=== PATIENT | male | born 1965 | race Caucasian/White ===

== ENCOUNTER 2017-11-09 07:00 | Outpatient (RCR) | payer OTHER, MEDICAID, SELFPAY ==
--- NOTE | 2017-08-03 14:54 | HP.PTEVAL ---
Patient's Visit Information TROY CARLSON is a 52 year old M referred to Physical Therapy by Out of Town Doctor MOMO TALLEY with a diagnosis of Liver transplant and hernia repair. Date of Evaluation: 08/03/17 Physical Therapist: Mando Lewis DPT, OC - Visit Plan Frequency: 3x /Week Duration: 4-6 Weeks Plan: 3x/week for 4-6 for... 1. postural and LE strength. 2. core strength [id number] due to incision. 3. VOR walking and balance with gait. 4. foam and SLS baalnce. 5. stretch HS, quads, hip flexors and gently abs. LB AROM. Progress as tolerated to I at [facility]. Avoid increasing intraabdominal pressure. - Subjective Subjective: Madelaine friend with him today. Got a new liver 2 yrs ago. had two hernia surgeries since then the latest one in April. Has been at home for the last three months recovering. Shot pool the other day 4 games and was whooped. Belly is numb. Pain is in belly intermittently. Needs to wrok on core and leg strength. Has [employer] membership and wants to learn what to do. No specific precautions currently. Scars are tender and it hurts to bend over pool table. Sleep is poor due to losing 3 friends in last 3 months including son and mom. Needs to get stamina back and get around better. No current ex, Basic aDLs are OK just slow. Tidies up at home but no big cleaning. does the dishes. Moves slow. Hobbies: wants to shoot [employer] at some point and deer akbar. Wants to play pool without pain. Not working on disability due to lover. - Pain belly Pain Intensity (Out of 10): 0 Pain Intensity Range: 0, 8 - Objective Walks slowly and a little waddle but I on firm flat surface. Transfers I with UE. steps with rail I but very tired after wards. reflexes UE and LE 2/3 bi, tri, patella and achilles. Sensation WNL to gross light touch except L UE distall laterally. Strength 4-/5 in LE knees and ankles and 3+ in hips adn 3+ in UE. UE aROM WFL but elevation limited to 130 and then stiff ins houlders. SLS 2-3 sec B. VOR stance is slow and walking is unable. Incision in belly in cross shape has healed well but he picks at distal portion and is still slightly draining, no obvious evidence of infection, no unusual redness or heat or swelling. Moderate scarring underneath most of incision. foam stacne with ec is unable and drifts BE immediately. - Balance Scores Functional Gait Assessment Score: 19 % Disability: 36.6700 - Goals Goal 1:: Pateint feel back to 50% activities. Goal Time Frame: 4-6 Weeks Goal 2:: 25/30 FGA to diminish fall risk. Goal Time Frame: 4-6 Weeks Goal 3:: Get into truck without weakness. Goal Time Frame: 4-6 Weeks Goal 4:: Pt I with approp and safe workout he can continue at [facility]. - Rehabilitation Potential Physical Therapy Diagnosis: hernia repair/liver transplant and patient out of shape form recovery process. Rehabilitation Potential: Fair - Anticipated Interventions Patient/Client Instruction: Educate patient on: Condition, Plan of Care For the Purpose of:: To decrease pain, To increase ROM Therapeutic Exercise to Include: Strength training, Flexibilty training, Gait and locomotor training, Active ROM For the Purpose of:: To decrease pain, To increase ROM, To improve ability of physical actions for home/community/work/leisure, To improve gait and locomotor functions Thank you for the opportunity to evaluate your patient. For Medicare and Medicare HMO plans, please review the plan of care and approve it. It will need to be FAXED BACK to us at [phone] for Medicare purposes. Please let me know if there are questions or concerns regarding this plan of care. Physician Signature: Date:
--- NOTE | 2017-08-28 14:47 | HP.PTREVAL ---
Out of Town Doctor, MOMO TALLEY It has been my pleasure to treat TROY CARLSON over the last 8 visits for Liver transplant and hernia repair. Please see the progress note below for an update on the physical therapy plan of care! Subjective: Doing allright, has merry nieto lately all over due to the weather. Feels better overall. Still needs to work on lifting and carrying 20 feet as it wears him out. Steps wear him out. Pain is intermittent. Sleep is OK on med. Doing some ex at home but not like I should. 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 Able to do indoor work. Need to continue to work to get stronger. To doctors next month. Objective/Function: FGA+5, romberg improving but ec foam still challenging. Weakness at bottom of chair squat and attempting to come up from stoop requires UE usage. Gait is nromal and steps are reciprocal btu still mild weakness notable in hips. Plan Plan: 2x/week x 4 weeks 60 minutes for ... 1. Foam and VOR balance. 2. functional strength with lunges, deep squats, carrying weight up steps, carrying weighted box, functional strength to get heart rate up. 3. Teach machines for progression to [employer](leg press, hip abd, hip ext, pull down, row, shoulder press, chest press.). PLEASE START ON ELLIPTICAL NEXT SESSION FOR MONITORed CV work to tolerance. Goals Goal 1:: Pateint feel back to 50% activities. Goal Time Frame: 4-6 Weeks Goal Progress: Progressing Goal 2:: 25/30 FGA to diminish fall risk. Goal Time Frame: 4-6 Weeks Goal Progress: Progressing Goal 3:: Get into truck without weakness. Goal Time Frame: 4-6 Weeks Goal Progress: Goal Met Goal 4:: Pt I with approp and safe workout he can continue at [employer]. Goal Time Frame: 4-6 Weeks Goal 5:: Carry 20# box up steps 3 flights I without excessive fatigue. Goal Time Frame: 4-6 Weeks Anticipated Interventions Patient/Client Instruction: Educate patient on: Condition, Plan of Care For the Purpose of:: To decrease pain, To increase ROM Therapeutic Exercise to Include: Strength training, Flexibilty training, Gait and locomotor training, Active ROM For the Purpose of:: To decrease pain, To increase ROM, To improve ability of physical actions for home/community/work/leisure, To improve gait and locomotor functions Please do not hesitate to contact me at [phone] by phone or if you have questions or concerns regarding this new plan of care! Sincerely, Mando Lewis, DPT, OC
--- NOTE | 2017-09-23 14:39 | HP.PTREVAL_ITS ---
Out of Town Doctor, MOMO TALLEY It has been my pleasure to treat TROY CARLSON over the last 15 visits for Liver transplant and hernia repair. Please see the progress note below for an update on the physical therapy plan of care! Subjective: Need to come in more. Wants to lose weight plans on continue at [employer]. Pain is good as long as he does not lean on scar tissue. Dog s jumps on him on tummy and it hurts bad. No balance problems or stumbling, climbing into truck is no problems. Objective/Function: + 7 on FGA. Walks with wide JORDAN until cued. Doing well with goals. PT DOING WELL, MUCH BETTER BALANCE ADN ABLE TO CONTINUE GYM EX [facility]. Plan Plan: CONTINUE I GYM WORKOUT AT [employer] THEN WILL F/U IN ONE MONTH TO ENSURE PROGRESS AND BALANCE IMPROVEMENT AND NOTE TO DOCTOR. Goals Goal 1:: I progress for four weeks at [employer] adn feel improved adn balance FGA. Goal Time Frame: 4-6 Weeks Goal Progress: Goal Met Goal 2:: FGA to diminish fall risk. Goal Time Frame: 4-6 Weeks Goal Progress: Goal Met Goal 3:: Get into truck without weakness. Goal Time Frame: 4-6 Weeks Goal Progress: Goal Met Goal 4:: Pt I with approp and safe workout he can continue at [employer]. Goal Time Frame: 4-6 Weeks Goal Progress: Goal Met Goal 5:: Carry 20# box up steps 3 flights I without excessive fatigue. Goal Time Frame: 4-6 Weeks Goal Progress: Goal Met Anticipated Interventions Patient/Client Instruction: Educate patient on: Condition, Plan of Care For the Purpose of:: To decrease pain, To increase ROM Therapeutic Exercise to Include: Strength training, Flexibilty training, Gait and locomotor training, Active ROM For the Purpose of:: To decrease pain, To increase ROM, To improve ability of physical actions for home/community/work/leisure, To improve gait and locomotor functions Please do not hesitate to contact me at [phone] by phone or Fax: if you have questions or concerns regarding this new plan of care! Sincerely, Mando Lewis, DPT, OC
--- NOTE | 2017-11-09 07:59 | HP.PTREVAL ---
Out of Town Doctor, MOMO TALLEY It has been my pleasure to treat TROY CARLSON over the last 16 visits for Liver transplant and hernia repair. Please see the progress note below for an update on the physical therapy plan of care! Subjective: Went to [employer] 2x and just cannot do it on his own. Got on elliptical at [facility]. Could not get any instruction at [employer]. Needs process trainer close right now. Fell 2x in last 6 weeks , last time at [employer] R ankle turned getting up. Not ready mentally for being on his own. Seeing a counselor regularly. No current pain. When he is up for a while on his feet his back hurts 5/10. Has really not been working out and gets winded easy. Gets tired with one flight of steps but feels safe on steps. Spending the day just getting around home. wants to start remodelling upstairs for father. Needs to get back on track with working out in therapy. Wants to come in here on his own. Will see dietitian at [facility] also. Dr. Day wrote order for that. Has osteoporosis, mentally not ready to be on own, knows he needs to work out. [facility] and continue here when doen with PT. Has gone backwards putting on 20# since was here in September. Objective/Function: pt strength at 4-/5 through LE and UE. Flex in HS at -40 90/90 B, gastroc to neutral, quad still very tight L >R. Pt needs assist to get up off low chair without UE. Steps are reciprocal but require rail. foam stance is poor. VOR walking is wobbly. OVERALL PATIENT HAS DONE A POOR JOB OF MANAGING HOME WORKOUT AND PROGRESSION ON HIS OWN, HAS DIGRESSED WITH BALANCE AND STRENGTH AND HAS DOEN POORLY WITH INCREASING ACTIVITY. NOW FATIGUED EASILY AFTE MARISA FLIGHT OF STEPS. HAS WIDE JORDAN AGAIN IN GAIT. HAS LOST 4 POINTS OF BALANCE ON FGA TESTING. Plan Plan: PT HAS DIGRESSED WITH PROGRESS NAD IS MENTALLY WORSE OFF THEN 6 WEEKS AGO. NEEDS MORE HANDS ON TO GET BACK TO CONDITION OF 6 WEEKS PRIOR. REOCMMEND 3X/WEEK FOR 4 WEEKS TO GET BACK TO GYM WORKOUT AND BALANCE EX FOR BALANCE, STRENGTH LE AND CORE AND CONDITIONING/FUNCTIONAL STRENGTH AND PROGRESS TO I GYM PROGRAM. LIKELY WILL NEED TO WEAN OFF THERAPY INSTEAD OF STOPPING COLD TURKEY DUE TO POOR MENTAL CONFIDENCE. PT IS TO STRETCH HS, QUAD AND GASTROC AT HOME ON HIS OWN HE STILL HAS HIS EX SHEETS TO DO THIS. Goals Goal 1:: I progress for four weeks at [employer] adn feel improved adn balance FGA. Goal Time Frame: 4-6 Weeks Goal Progress: REGRESSED AND APPROP. Goal 2:: FGA to diminish fall risk. Goal Time Frame: 4-6 Weeks Goal Progress: REGRESSED AND APPROP. Goal 3:: Get into truck without weakness. Goal Time Frame: - Goal Progress: Goal Met Goal 4:: Pt I with approp and safe workout he can continue at [employer]. Goal Time Frame: - Goal Progress: Not Progressing Goal 5:: Carry 20# box up steps 3 flights I without excessive fatigue. Goal Time Frame: 4-6 Weeks Goal Progress: REGRESSED AND APPROP. Goal 6:: Pt demonstrate ability to be consistent with I gym workout 3x/week for 3 weeks on his own to continue progress. Goal Time Frame: 6-8 Weeks Goal Progress: NEW GOAL Anticipated Interventions Patient/Client Instruction: Educate patient on: Condition, Plan of Care For the Purpose of:: To decrease pain, To increase ROM Therapeutic Exercise to Include: Strength training, Flexibilty training, Gait and locomotor training, Active ROM For the Purpose of:: To decrease pain, To increase ROM, To improve ability of physical actions for home/community/work/leisure, To improve gait and locomotor functions Please do not hesitate to contact me at [phone] by phone or if you have questions or concerns regarding this new plan of care! Sincerely, Mando Lewis, DPT, OC
--- NOTE | 2018-01-19 09:48 | HP.PT.NRP ---
HP - Discharge Summary (1) - Patient Information TROY CARLSON was seen in my office for initial evaluation on 08/03/17. The following Plan of Care was established for this patient: Initial Frequency: 3x /Week Initial Duration: 4-6 Weeks - Anticipated Interventions Patient/Client Instruction: Educate patient on: Condition, Plan of Care For the Purpose of:: To decrease pain, To increase ROM Therapeutic Exercise to Include: Strength training, Flexibilty training, Gait and locomotor training, Active ROM For the Purpose of:: To decrease pain, To increase ROM, To improve ability of physical actions for home/community/work/leisure, To improve gait and locomotor functions This patient was last seen in our office 11/09/17. Pertinent comments regarding their Physical therapy will appear below: Pt seen 16 visits and most recently in October after getting new script to continue. A plan was set up and I have contacted patient and left message to schedule but he has not. At this point it has been over two months adn I will discontinue due to nonattendance. I will be happy to resume treatment if patient desires. At this point I will be discontinuing this patient from physical therapy. I would be happy to see this patient again in the future if found appropriate by the physician. Thank you! Mando Lewis, DPT, OC
== END 2017-11-09 19:00 | disposition home or self-care (01) ==
LOC: PT 07:00
PROVIDERS: Family Provider Family Medicine; PCP Family Medicine
DX: Z94.4 Liver transplant status (principal); Z98.890 Other specified postprocedural states; Z87.19 Personal history of other diseases of the digestive system
CPT/HCPCS: 97110; 97162; 97530

== ENCOUNTER 2018-01-08 11:00 | Outpatient (RCR) | payer OTHER, MEDICAID, SELFPAY | END 2018-01-11 23:59 | LOC: NS 11:00 | PROVIDERS: Family Provider Family Medicine; PCP Family Medicine; Visit Provider Family Medicine | DX: E66.9 Obesity, unspecified (principal); Z68.36 Body mass index [BMI] 36.0-36.9, adult; Z94.4 Liver transplant status; Z71.3 Dietary counseling and surveillance | CPT/HCPCS: 97802; 97803 ==

== ENCOUNTER 2018-02-22 11:06 | Outpatient (RCR) | payer OTHER, MEDICAID, SELFPAY ==
--- NOTE | 2018-02-22 11:06 | DT_ITS ---
This patient was seen during an EMR downtime February 15, 2018 - February 22, 2018. This patient may have a combination of paper and electronic documentation or all paper documentation. All documentation is viewable within the e-chart portion of [facility] for each patient visit.
== END 2018-03-13 23:59 ==
LOC: NS 11:06
PROVIDERS: Family Provider Family Medicine; PCP Family Medicine; Visit Provider Family Medicine
DX: E66.9 Obesity, unspecified (principal); Z68.36 Body mass index [BMI] 36.0-36.9, adult; Z71.3 Dietary counseling and surveillance; Z94.4 Liver transplant status
CPT/HCPCS: 97803

== ENCOUNTER 2018-03-25 15:00 | Outpatient (RCR) | payer OTHER, MEDICAID, SELFPAY ==
--- NOTE | 2018-01-29 08:27 | HP.PTEVAL_ITS ---
Patient's Visit Information TROY CARLSON is a 53 year old M referred to Physical Therapy by Out of Town Doctor with a diagnosis of s/p liver transplant.. Date of Evaluation: 01/29/18 Physical Therapist: Mando Lewis DPT, OC - Visit Plan Frequency: 3x /Week Duration: 4-6 Weeks Plan: 3x/week for 4-6 ... 1. Teach and do stretches for HS, quad, piri and gastroc and progress to I. 2. Core/LE and postural strength via machines and progress to I as tolerated. 3. UE ROM for shoulders on pulleys and eventually machines. 4. Progression of CV/calorie burning ex. Monitor R middle toe as it is broken and will likely need to start with less weight bearing CV ex. - Subjective Subjective: Needs to get working out again. Has been unable to get in for previous plan of care from last v#. No major medical changes since then but did kick sweeper and broke R middle toe the other day so is now using cane whereas he did not need to previously. Wants to ride a motorcycle. Medically not much has changed since last Thursday. Has trouble mentally getting out and is seeing someone for that. Wants to lose weight in the belly. Wants to be stronger in the legs. No pain lately except for toe and it hurt bad. Internal organs all good except has BPH. Sleep is up and down. Walking but no other exercises right now. Does laundry and dishes and takes care of puppy. Not employed, maybe when better. Seeing blueprinting machine operator at hospital for diet. See recently d/c'd chart for info. - Pain R middle toe. Pain Intensity (Out of 10): 0 Pain Intensity Range: 0, 8 - Objective Walks with a cane today mod I and R antalgia due to middle toe. Ankle AROM is WFL but inv/ev coordination is challenginf, strength in ankles 4/5, pain with R ankle DF due to toe fracture. Tightness present in HS (-30 90/90 test) adn gastroc, to 0 degrees DF only. Knee strength 4/5 and AROM WFL. Hip AROM 50 ext rot, 30 IR, 110 flexion but feels tight, 8 ext B and strength at 3+ in hips abd and ext and 4- flexion. Transfers I but slow and using momentum from supine to sit. Steps are reciprocal but limited and antalgic due to R toe pain. reflexes 1/3 patella and achilles. Sensation WNL to gross light touch in LE. UE AROM shoulder flexion to 90 comfortably then tight but not painful, full PROM elevation but tight. strength in shoulers and elbows 4/5 except ext rot which is 4-. Weighs 232# - Balance Scores Functional Gait Assessment Score: 24 % Disability: 20.0000 - Goals Goal 1:: Weight down to 227# without increasing pain. Goal Time Frame: 4-6 Weeks Goal 2:: Patient I in initial ex program for stretching , CV and strength in gym (he is a member) Goal Time Frame: 4-6 Weeks Goal 3:: Ascend and descend steps reciprocally without rail Goal Time Frame: 4-6 Weeks Goal 4:: Pt feel 50% better overall physically Goal Time Frame: 4-6 Weeks - Rehabilitation Potential Physical Therapy Diagnosis: Weakness from poorly managed sedentary lifestyle. still appropriate for therapy and strengthening and stretching to work to I program - Anticipated Interventions Patient/Client Instruction: Educate patient on: Condition, Plan of Care For the Purpose of:: To improve ability of physical actions for home/community/ work/leisure Therapeutic Exercise to Include: Strength training, Flexibilty training, Passive ROM, Active ROM For the Purpose of:: To improve muscle performance and motor function, To improve ability of physical actions for home/community/work/leisure Thank you for the opportunity to evaluate your patient. For Medicare and Medicare HMO plans, please review the plan of care and approve it. It will need to be FAXED BACK to us at [phone] for Medicare purposes. Please let me know if there are questions or concerns regarding this plan of care. Physician Signature: Date:
--- NOTE | 2018-02-25 13:22 | HP.PTREVAL_ITS ---
Out of Town Doctor, It has been my pleasure to treat TROY CARLSON over the last 9 visits for s/ p liver transplant.. Please see the progress note below for an update on the physical therapy plan of care! Subjective: Doing well but fighting depression at home. Workout feels good and he is impressed with how he is doing. Objective/Function: Steps reciprocally without rail 2x without SOB today. Weight does nto appear to be coming off but pt feeling better. He questions his continued compliance due to depression and of child and parent. OVERALL GOING THE RIGHT WAY, NEEDS FURTHER OVERSIGTH FOR PROGRESSION. Plan Plan: Weekly x 4 weeks to promote compliance with his current gym ex and progress to fucntional and CV and core strengthenig/BW ex as tolerated. PT to be in gym 3x/week on own. Goals Goal 1:: Weight down to 227# without increasing pain. Goal Time Frame: 4-6 Weeks Goal Progress: Not Progressing Goal 2:: Patient I in initial ex program for stretching , CV and strength in gym (he is a member) Goal Time Frame: 4-6 Weeks Goal Progress: Progressing Goal 3:: Ascend and descend steps reciprocally without rail Goal Time Frame: 4-6 Weeks Goal 4:: Pt feel 50% better overall physically Goal Time Frame: 4-6 Weeks Goal Progress: Progressing Goal 5:: Pt maintain 3x/week workout schedule for one month. Goal Time Frame: 2-4 Weeks Goal Progress: NEW GOAL Anticipated Interventions Patient/Client Instruction: Educate patient on: Condition, Plan of Care For the Purpose of:: To improve ability of physical actions for home/community/ work/leisure Therapeutic Exercise to Include: Strength training, Flexibilty training, Passive ROM, Active ROM For the Purpose of:: To improve muscle performance and motor function, To improve ability of physical actions for home/community/work/leisure Please do not hesitate to contact me at [phone] by phone or Fax: if you have questions or concerns regarding this new plan of care! Sincerely, Mando Lewis, GARETHT, OC
--- NOTE | 2018-03-25 16:19 | HP.PTREVAL_ITS ---
Out of Town Doctor, It has been my pleasure to treat TROY CARLSON over the last 13 visits for s /p liver transplant.. Please see the progress note below for an update on the physical therapy plan of care! Subjective: Doing OK. L arm still feels weak but getting stronger. Enjoys workout and can do it on his own now but wants to f/u to progress now and then. Pain is only in LB intermittently. Follows up with doctors regularly and bloodwork is fine except Magnesium is a little low. Sees dietitian regularly. Objective/Function: 240# today. Steps reciprocal without UE. Full UE AROM without pain. OVERALL DOING WELL, SEEMS HAPPIER AND MORE CONSISTENT WITH WORKOUT DESPITE NOT MEETING PERSONAL GOALS OF WEIGHT LOSS. WOULD BENEFIT FORM INTERMITTENT F/U FOR PROGRESSION IF NEEDED AND MONITOR PROGRESS. Plan Plan: MONTHLY F/U FOR 2-3 MONTHS NEEDED TO PROGRESS EX. Goals Goal 1:: Weight down to 227# without increasing pain. Goal Time Frame: 4-6 Weeks Goal Progress: Not Progressing Goal 2:: Patient I in initial ex program for stretching , CV and strength in gym (he is a member) Goal Time Frame: 4-6 Weeks Goal Progress: Goal Met Goal 3:: Ascend and descend steps reciprocally without rail Goal Time Frame: 4-6 Weeks Goal Progress: Goal Met Goal 4:: Pt feel 50% better overall physically Goal Time Frame: 4-6 Weeks Goal Progress: Progressing Goal 5:: Pt maintain 3x/week workout schedule for one month. Goal Time Frame: 2-4 Weeks Goal Progress: Progressing Goal 6:: CONTINUE TOWARD UNMENT GOALS AND [id number]/WEEK FOR ONE MONTH WITHOUT PT VISIT. Goal Time Frame: 4-6 Weeks Goal Progress: NEW GOAL Anticipated Interventions Patient/Client Instruction: Educate patient on: Condition, Plan of Care For the Purpose of:: To improve ability of physical actions for home/community/ work/leisure Therapeutic Exercise to Include: Strength training, Flexibilty training, Passive ROM, Active ROM For the Purpose of:: To improve muscle performance and motor function, To improve ability of physical actions for home/community/work/leisure Please do not hesitate to contact me at [phone] by phone or Fax: if you have questions or concerns regarding this new plan of care! Sincerely, Mando Lewis, DPT, OC
--- NOTE | 2018-06-08 10:57 | HP.PTDCNRP_ITS ---
HP - Discharge Summary (1) - Patient Information TROY CARLSON was seen in my office for initial evaluation on 01/29/18. The following Plan of Care was established for this patient: Initial Frequency: 3x /Week Initial Duration: 4-6 Weeks - Anticipated Interventions Patient/Client Instruction: Educate patient on: Condition, Plan of Care For the Purpose of:: To improve ability of physical actions for home/communi ty/work/leisure Therapeutic Exercise to Include: Strength training, Flexibilty training, Passive ROM, Active ROM For the Purpose of:: To improve muscle performance and motor function, To improve ability of physical actions for home/community/work/leisure This patient was last seen in our office 03/25/18. Pertinent comments regarding their Physical therapy will appear below: Pt seen for 13 visits. Plan at last attended visit was to f/u monthly for 2-3 months. Pt has neither scheduled nor attended those visits. At this point, it has been over two months and I will [id number] due to nonattendance. At this point I will be discontinuing this patient from physical therapy. I would be happy to see this patient again in the future if found appropriate by the physician. Thank you! Mando Lewis, DPT, OC
== END 2018-03-25 19:00 | disposition home or self-care (01) ==
LOC: PT 15:00
PROVIDERS: Family Provider Family Medicine; PCP Family Medicine
DX: Z94.4 Liver transplant status (principal); Z87.19 Personal history of other diseases of the digestive system; Z98.890 Other specified postprocedural states
CPT/HCPCS: 97110; 97162; 97164; 97530

== ENCOUNTER 2018-03-26 15:30 | Outpatient (RCR) | payer OTHER, MEDICAID, SELFPAY | END 2018-04-13 23:59 | LOC: NS 15:30 | PROVIDERS: Family Provider Family Medicine; PCP Family Medicine; Visit Provider Family Medicine | DX: E66.9 Obesity, unspecified (principal); Z68.36 Body mass index [BMI] 36.0-36.9, adult; Z94.4 Liver transplant status; Z71.3 Dietary counseling and surveillance | CPT/HCPCS: 97803 ==

== ENCOUNTER 2018-04-16 08:37 | Outpatient (RCR) | payer OTHER, MEDICAID, SELFPAY | END 2018-05-07 23:59 | LOC: NS 08:37 | PROVIDERS: Family Provider Family Medicine; PCP Family Medicine; Visit Provider Family Medicine | DX: E66.9 Obesity, unspecified (principal); Z68.36 Body mass index [BMI] 36.0-36.9, adult; Z94.4 Liver transplant status; Z71.3 Dietary counseling and surveillance | CPT/HCPCS: 97803 ==

== ENCOUNTER 2018-05-21 08:19 | Outpatient (RCR) | payer OTHER, MEDICAID, SELFPAY | END 2018-06-13 23:59 | LOC: NS 08:19 | PROVIDERS: Family Provider Family Medicine; PCP Family Medicine; Visit Provider Family Medicine | DX: E66.9 Obesity, unspecified (principal); Z68.36 Body mass index [BMI] 36.0-36.9, adult; Z94.4 Liver transplant status; Z71.3 Dietary counseling and surveillance ==

== ENCOUNTER 2018-06-17 01:16 | Emergency (ER) | payer OTHER, MEDICAID, SELFPAY ==
[2018-06-17 01:17] VITALS: BP 144/89; PULSE 71; RESP 18; TEMP 36.4; O2SAT 94; BMI 38.5
--- NOTE | 2018-06-17 01:39 | RAD_ITS ---
STUDY: X-RAY CHEST REASON FOR EXAM: Male, 53 years old. Chest pain with deep breathing. TECHNIQUE: Single AP portable view of the chest. COMPARISON: 01/24/2016. FINDINGS: There again are prominent markings in the lung bases which could be due to scarring. There are hypoventilatory changes at this time. There is no demonstrated pleural abnormality. There is borderline cardiomegaly. There again is enlargement of the hilar regions bilaterally suggestive of hilar adenopathy unchanged since the prior examination. There is prominence of the right paratracheal region. Normal visualized pulmonary arteries. There is atherosclerotic tortuosity of the aortic arch and descending thoracic aorta. The thoracic spine is obscured. Normal visualized ribs, clavicles, and shoulders. There is no demonstrated abnormality of the visualized soft tissue structures of the upper abdomen. RAD/Chest 1 View (Portable) IMPRESSION: 1. No significant change. 2. Enlargement and hilar regions suggestive of adenopathy unchanged. 3. Possible right paratracheal nodes. 4. No new infiltrate is seen. Electronically Signed: Calvin Salgado MD at 2:28 EDT Tel , Service support ,
[2018-06-17 02:08] LABS: Absolute Lymphocyte Count 0.53 X10^3/ul (0.83-4.51); Absolute Neutrophil Count 3.7 X10^3/uL (2.0-7.7); Basophil# 0.01 X10^3/uL; Basophil% 0.2 % (0-1); Eosinophil# 0.12 X10^3/uL; Eosinophils% 2.5 % (0-5); Hematocrit 47.3 % (40-54); Lymphocyte # 0.53 X10^3/ul (4.0); Lymphocyte % 10.9 % (19-41); Mean Corp Hgb Conc 33.8 g/gl (32-36); Mean Corpuscular Hgb 26.4 pg (27.0-32.0); Mean Corpuscular Volume 77.9 fL (80-94); Mean Platelet Vol. 10.5 fl (6.2-12.0); Monocyte% 10.3 % (0-10); Neutrophil # 3.68 X10^3/uL (2.7-7.7); Neutrophil % 75.9 % (47-70); Platelet Count 108 K/mm3 (150-450); RBC Distribution Width CV 15.1 % (11.6-14.6); RBC Distribution Width SD 42.3 fl (35.1-43.9); Red Blood Count 6.07 M/mm3 (4.6-6.2); White Blood Count 4.9 K/mm3 (4.4-11.0)
[2018-06-17 02:11] LABS: Differential Indicated SCAN CRITERIA MET; POSITIVE COUNT NO; POSITIVE DIFFERENTIAL YES; POSITIVE MORPHOLOGY NO
[2018-06-17 02:19] LABS: ALB/GLOB Ratio 1.1 RATIO (0.9-2.4); AST(SGOT) 26 U/L (15-37); Alanine Aminotransfer ALT/SGPT 34 U/L (16-61); Albumin, Serum 3.7 g/dL (3.2-5.0); Alkaline Phosphatase 119 U/L (45-117); Anion Gap 7 (5-15); BUN 23 mg/dL (7-18); BUN/Creat Ratio 15.9 RATIO (10-20); Calcium,Total 9.8 mg/dL (8.5-10.1); Chloride 105 mmol/L (98-107); Creatinine, Serum 1.45 mg/dL (0.70-1.30); EST Glomerular Filtration Rate 54 mL/min (>60); Est Glom Filt Rate - Afr Amer 65 mL/min (>60); Estimated Creatinine Clearance 51.94 ml/min; Globulin 3.5 g/dL (2.2-4.2); Glucose 103 mg/dL (74-106); Potassium 3.9 mmol/L (3.5-5.1); Protein, Total 7.2 g/dL (6.4-8.2); Sodium Level 137 mmol/L (136-145)
[2018-06-17 02:27] LABS: Differential Comment SCANNED
--- NOTE | 2018-06-17 02:36 | ED.DCSUM_ITS ---
- ER Visit Summary Date of Service: 06/17/18 Chief Complaint: Upper back pain History of Present Illness: The patient is a [address] Day. He reports he has upper back pain on the right that began approximately 1 week ago. Is gradually gotten worse. Is an aching pain senna 10 hours and 5-10 currently. Is worsened by movement or turning his head to the right. Is relieved by remaining still and Tylenol. He denies any trauma. No fall, MVA, or change in activity. Reports that today it seems as though the pain is radiating around to his right shoulder and to his chest. Patient denies any numbness or weakness. No radiation to his arms or his legs. No problems with his bowels or his bladder. No groin numbness. Physical Examination: Vitals: Stable. Afebrile. General: Well-nourished and well-developed. Head: Normocephalic atraumatic. Neck: Supple, no lymphadenopathy. No JVD. Nontender. Cardiovascular: Regular rate and rhythm. No murmurs. Respiratory: No respiratory distress. Clear to auscultation bilaterally. Abdominal: Soft, nontender, nondistended, normal bowel sounds. No guarding, rebound, or peritoneal signs. Back: Moderate tenderness palpation to the musculature just medial to his right scapula and his right trapezius muscle. He has mild tenderness palpation over his right deltoid.. Extremities: Nontender, no edema. Skin: Normal color, no rash. Neurologic: Alert and oriented ?3. Cranial nerves II through XII are intact. Normal strength and sensation. Psych: Normal affect. Test Results: Given the fact the patient has a history of a liver transplant labs were obtained. CBC is more for platelets 108, 7 neutrophils 76, lymphocytes of 11. Chem-7 is more for BUN of 23 and creatinine 1.45. His last creatinines were 1.15 in 2016 and 2017. LFTs marked for alk phos of 119. This is the lowest since 2014. Emergency Department Course and Treatment: An [facility] report was obtained which shows one prescription for opiates in the past year. Patient is resting comfortably and drove here. He refused pain medications. Treatment Plan: Patient will be discharged Percocet. Instructed to follow-up his primary care physician 1 week if not improving. Return to the emergency department for any worsening symptoms. Disposition: To home in [facility] and stable condition. Impression: 1. Thoracic back strain. 2. Renal insufficiency. This note was generated with [employer] dictation software. It may contain incorrect words, spelling, and punctuation that were not noted in review of the chart prior to signing ED Disposition - Plan for ED Patient: Disposition: Home or Assisted Living Chief Complaint: Back Instructions: ED Neck Back Pain General Prescriptions: Oxycodone HCl/Acetaminophen [Percocet 5/325] 1 tablet PO Q6H PRN PRN 3 Days #12 tablet PRN Reason: Pain Referrals: Raphael Day MD [Primary Care Provider] - 1 Week if not improving
[2018-06-17] MEDS: oxyCODONE 5 MG Tablet PO (02:49)
[2018-06-17 02:53] VITALS: BP 143/93; PULSE 71; RESP 15; O2SAT 97
== END 2018-06-17 03:05 | disposition home or self-care (01) ==
LOC: ED 03:01
PROVIDERS: Emergency Provider Emergency Medicine; Family Provider Family Medicine; PCP Family Medicine
DX: S29.012A Strain of muscle and tendon of back wall of thorax, initial encounter (principal); X58.XXXA Exposure to other specified factors, initial encounter; Y93.9 Activity, unspecified; Y92.89 Other specified places as the place of occurrence of the external cause; Y99.9 Unspecified external cause status; N28.9 Disorder of kidney and ureter, unspecified; R19.7 Diarrhea, unspecified; R05 Cough; R11.0 Nausea; I10 Essential (primary) hypertension; Z94.4 Liver transplant status; Z86.19 Personal history of other infectious and parasitic diseases
CPT/HCPCS: 71045; 80053; 85025; 99284; A4216

== ENCOUNTER 2019-04-25 21:32 | Emergency (ER) | payer OTHER, SELFPAY ==
[2019-04-25 21:33] VITALS: BP 130/87; PULSE 75; RESP 18; TEMP 36.1; O2SAT 95; BMI 38.2
[2019-04-25 23:35] VITALS: BP 152/98; PULSE 93; RESP 18; TEMP 37.2; O2SAT 97
[2019-04-25 23:48] LABS: Absolute Lymphocyte Count 0.49 X10^3/uL (0.83-4.51); Absolute Neutrophil Count 4.4 X10^3/uL (2.0-7.7); Basophil# 0.02 X10^3/uL; Basophil% 0.4 % (0-1); Eosinophil# 0.13 X10^3/uL; Eosinophils% 2.3 % (0-5); Hematocrit 48.8 % (40-54); Hemoglobin 17.3 g/dL (13.0-16.5); Lymphocyte # 0.49 X10^3/ul (4.0); Lymphocyte % 8.8 % (19-41); Mean Corp Hgb Conc 35.5 g/dL (32-36); Mean Corpuscular Hgb 30.2 pg (27.0-32.0); Mean Corpuscular Volume 85.2 fL (80-94); Mean Platelet Vol. 10.3 fl (6.2-12.0); Monocyte# 0.55 X10^3/uL; Monocyte% 9.8 % (0-10); NRBC Flagged by Analyzer 0 % (0-5); Neutrophil # 4.36 X10^3/uL (2.7-7.7); POSITIVE DIFFERENTIAL YES; Platelet Count 139 K/mm3 (150-450); RBC Distribution Width CV 14.2 % (11.6-14.6); RBC Distribution Width SD 42.5 fl (35.1-43.9); Red Blood Count 5.73 M/mm3 (4.6-6.2); White Blood Count 5.6 K/mm3 (4.4-11.0)
[2019-04-25 23:49] VITALS: BP 141/78; PULSE 98; RESP 17; O2SAT 97
[2019-04-25 23:51] LABS: Differential Indicated SCAN CRITERIA MET
[2019-04-26] MEDS: 0.9% Normal Saline 1,000 ML 1000 ML IV (00:04)
[2019-04-26 00:07] LABS: ALB/GLOB Ratio 1.1 RATIO (0.9-2.4); AST(SGOT) 31 U/L (15-37); Alanine Aminotransfer ALT/SGPT 38 U/L (16-61); Alkaline Phosphatase 116 U/L (45-117); Anion Gap 6 (5-15); BUN 17 mg/dL (7-18); BUN/Creat Ratio 13.5 RATIO (10-20); Calcium,Total 8.9 mg/dL (8.5-10.1); Chloride 103 mmol/L (98-107); Creatinine, Serum 1.26 mg/dL (0.70-1.30); EST Glomerular Filtration Rate 63 mL/min (>60); Est Glom Filt Rate - Afr Amer 76 mL/min (>60); Estimated Creatinine Clearance 56.94 ml/min; Globulin 3.7 g/dL (2.2-4.2); Glucose 117 mg/dL (74-106); Lipase 196 U/L (73-393); Magnesium 1.8 mg/dL (1.6-2.6); Potassium 4.4 mmol/L (3.5-5.1); Protein, Total 7.7 g/dL (6.4-8.2); Sodium Level 134 mmol/L (136-145)
[2019-04-26 00:26] LABS: Lactic Acid 1.2 mmol/L (0.4-2.0)
[2019-04-26] MEDS: Ondansetron 4 MG/2 ML Vial IV (00:39)
[2019-04-26] MEDS: HYDROmorphone 0.5 MG/0.5 ML SYRINGE IV (00:39)
[2019-04-26 00:52] VITALS: BP 140/87; PULSE 94; RESP 18; TEMP 37.1; O2SAT 97
[2019-04-26 01:08] VITALS: BP 139/97; PULSE 69; RESP 17; O2SAT 98
--- NOTE | 2019-04-26 01:33 | ED.DCSUM_ITS ---
- ER Visit Summary Date of Service: 04/26/19 Chief Complaint: [Possible dehydration] History of Present Illness: The patient is a 54 M [to the emergency department with multiple complaints. Patient states that he received a call from the environmental systems coordinator on some blood work that he had done a couple of days ago and was told that his magnesium was a little bit low and that he may be dehydrated. Patient states he has had chronic diarrhea for years up to 5 or 6 times a day. Patient denies recent antibiotic usage. He does describe some bloating in his abdomen he has had a lot of gas over the last couple days. Patient denies any fevers. His last bowel movement was today and was just small amount and soft. Patient describes pain in his arms which is been chronic he thinks there is something going on with his neck and has had nerve conduction studies for that. He did receive a liver transplant before 5 years ago. Patient has history of hep C and history of alcoholic cirrhosis.] Physical Examination: [HEENT-PERRLA, EOMI. Cranial nerves II through XII grossly intact. TMs clear. Mucous membranes moist. No adenopathy. Cardiovascular-regular rate and rhythm without murmur or ectopy Lungs-clear to auscultation, chest wall stable without crepitus or subcu emph ysema Abdomen-normoactive bowel sounds, soft. Patient has mild diffuse tenderness over the lower abdomen. There is no rebound, rigidity, cranial signs. Extremities-intact ?4, normal range of motion, normal pulses, atraumatic] Test Results: [CBC with differential showed a white blood cell count 5.6, hemoglobin 17, hematocrit 49, plates 139. Chemistries unremarkable. Liver enzymes were normal. Lipase was 196. CT scan of the abdomen pelvis showed prior cholecystectomy as well as some portal hypertension. Patient also had large amount of mesh to the lower abdomen otherwise nothing acute.]'s magnesium here was normal at 1.8. Emergency Department Course and Treatment: [Patient was medicated with Dilaudid half milligram IV. Patient was given a liter normal saline fluid bolus.] Treatment Plan: [Advised to push fluids and follow-up with primary care physician within next 3 to 5 days.] Disposition: [Discharged home stable condition] Impression: [Abdominal pain-etiology uncertain] This note was generated with [employer] software. It may contain incorrect words, spelling, and punctuation that were not noted in review of the chart prior to signing ED Disposition - Plan for ED Patient: Referrals: Raphael Day MD [Primary Care Provider] -
--- NOTE | 2019-04-26 01:36 | ED.DEP ---
ED Disposition - Plan for ED Patient: Instructions: ABDOMINAL PAIN, Unkown Cause, (Male) Referrals: Raphael Day MD [Primary Care Provider] - 3-5 Days
[2019-04-26 01:43] VITALS: BP 133/76; PULSE 86; RESP 16; O2SAT 98
--- NOTE | 2019-04-26 22:54 | CT_ITS ---
STUDY: CT ABDOMEN AND PELVIS WITHOUT CONTRAST REASON FOR EXAM: Male, 54 years old. Abdominal pain RADIATION DOSAGE (If Supplied By Facility): CTDIvol = ( 20.11 ) mGy, DLP = ( 1050.17 ) mGycm TECHNIQUE: Transaxial images were obtained from the dome of the diaphragm to the symphysis pubis without oral contrast, and without intravenous contrast. Sagittal and coronal images were reconstructed. Individualized dose optimization techniques were used for this CT. COMPARISON: CT abdomen and pelvis 04/27/2017. FINDINGS: This is a limited non-IV and nonoral contrast study. There are scattered mild pulmonary scarring. There is a 4 mm right lower lobe pleural-based pulmonary nodule right lower lobe. This was not seen on prior imaging but may be obscured by infiltrate on the prior CT. There is 4 mm left lower lobe pleural-based pulmonary nodule likely present on prior study. There is 4 mm left lower lobe pleural-based pulmonary nodule left lower lobe likely present on prior imaging. There is scattered abdominal varices. The visualized portions of the heart are within normal limits. There are multiple surgical clips within the gallbladder fossa and jalen hepatis. There is small amount of air left lobe liver unchanged when compared to prior exam. Evaluation of liver is limited due to IV contrast. There are stable small subcentimeter pericardial and perihepatic lymph nodes.. There is stable mild splenomegaly. Normal pancreas. Normal bilateral adrenal glands. Normal right kidney. Normal left kidney. Normal visualized stomach. Normal small intestine. Normal colon. The appendix is visualized and appears normal. Normal abdominal aorta. Normal inferior vena cava. There are few scattered subcentimeter periaortic lymph nodes unchanged... Normal urinary bladder. There is anterior abdominal wall mesh material. Normal osseous structures. CT/Abdomen/Pelvis without Cont IMPRESSION: Limited non-IV and nonoral contrast study History of prior hepatic transplantation, splenomegaly, abdominal varices likely indicating portal hypertension Prior cholecystectomy Anterior abdominal wall mesh material Likely benign subcentimeter pulmonary nodules which can be further evaluated with CT in 6 months Electronically Signed: Benjamin Lund at 1:09 EDT Tel , Service support ,
== END 2019-04-26 01:56 | disposition home or self-care (01) ==
LOC: ED 22:58
PROVIDERS: Emergency Provider Emergency Medicine; Family Provider Family Medicine; PCP Family Medicine
DX: R10.9 Unspecified abdominal pain (principal); B19.20 Unspecified viral hepatitis C without hepatic coma; K70.30 Alcoholic cirrhosis of liver without ascites; Z90.49 Acquired absence of other specified parts of digestive tract; Z94.4 Liver transplant status
CPT/HCPCS: 74176; 80053; 83605; 83690; 83735; 85025; 96361; 96374; 96375; 99285; J7030; A4216; J2405

== ENCOUNTER 2019-08-05 12:47 | Inpatient (IN) | payer OTHER, SELFPAY ==
[2019-08-05 12:48] VITALS: BP 159/93; PULSE 67; RESP 15; TEMP 36.6; O2SAT 98; BMI 35.4
--- NOTE | 2019-08-05 13:08 | RAD_ITS ---
STUDY: X-RAY - RIGHT FOOT CLINICAL: Male, 54 years old. Bruising and pain following injury. TECHNIQUE: 3 view(s) of the foot. COMPARISON: None. FINDINGS: Normal talus, calcaneus, and tarsal bones. Normal visualized subtalar, talonavicular, calcaneocuboid, tarsal and tarsometatarsal articulations. Normal metatarsi. Normal metatarsophalangeal joint of the great toe. Normal tibial and fibular sesamoid bones. Normal interphalangeal joint of the great toe. Normal phalanges of the great toe. Normal second through fifth metatarsophalangeal joints. Normal interphalangeal joints and phalanges of the lesser toes. Soft tissue swelling. RAD/Foot min 3 Views IMPRESSION: Soft tissue swelling. Electronically Signed: Navjot Munoz, at 14:09 EST , Service support ,
[2019-08-05] MEDS: oxyCODONE 5 MG Tablet 10 MG PO ×3 (13:15→22:16)
--- NOTE | 2019-08-05 13:15 | RAD_ITS ---
STUDY: X-RAY - RIGHT ANKLE REASON FOR EXAM: Male, 54 years old. Status post fall, pain TECHNIQUE: 3 view(s) of the ankle. COMPARISON: None. FINDINGS: Normal visualized distal tibia and fibula. Normal medial and lateral malleoli. Normal tibiotalar articulation and ankle mortise. Normal visualized talus and calcaneus. The visualized subtalar, talonavicular, calcaneocuboid and tarsal articulations are normal. There is mild soft tissue edema about the lateral malleolus. IMPRESSION : Mild Soft tissue edema. No visualized fracture. Electronically Signed: Kelle De La Torre MD at 13:48 EST Tel , Service support , RAD/Ankle min 3 Views
--- NOTE | 2019-08-05 13:16 | RAD_ITS ---
STUDY: X-RAY - LEFT FOOT CLINICAL: Male, 54 years old. Pain following a fall. TECHNIQUE: 3 view(s) of the foot. COMPARISON: None. FINDINGS: Normal talus, calcaneus, and tarsal bones. Normal visualized subtalar, talonavicular, calcaneocuboid, tarsal and tarsometatarsal articulations. Nondisplaced transverse fracture at the base of the fifth metatarsal. Normal metatarsophalangeal joint of the great toe. Normal tibial and fibular sesamoid bones. Normal interphalangeal joint of the great toe. Normal phalanges of the great toe. Normal second through fifth metatarsophalangeal joints. Normal interphalangeal joints and phalanges of the lesser toes. Soft tissue swelling. RAD/Foot min 3 Views IMPRESSION: Nondisplaced transverse fracture at the base of the fifth metatarsal with overlying soft tissue swelling. Electronically Signed: Navjot Munoz, at 13:54 EST , Service support ,
--- NOTE | 2019-08-05 13:16 | RAD_ITS ---
STUDY: X-RAY - LEFT ANKLE REASON FOR EXAM: Male, 54 years old. Status post fall, pain TECHNIQUE: 3 view(s) of the ankle. COMPARISON: None. FINDINGS: Normal visualized distal tibia and fibula. Normal medial and lateral malleoli. Normal tibiotalar articulation and ankle mortise. Normal visualized talus and calcaneus. The visualized subtalar, talonavicular, calcaneocuboid and tarsal articulations are normal. There is a partially visualized fracture at the base of the fifth metatarsal. RAD/Ankle min 3 Views IMPRESSION: Partially visualized fracture of the base of the fifth metatarsal. Electronically Signed: Kelle De La Torre MD at 13:50 EST Tel , Service support ,
[2019-08-05] MEDS: HYDROmorphone 0.5 MG/0.5 ML SYRINGE IV ×3 (15:52→23:46)
--- NOTE | 2019-08-05 16:06 | ED.DCSUM_ITS ---
History of Present Illness Chief Complaint: Lower Extremity Injury Narrative: Patient presenting secondary to injuries to the bilateral lower extremities. Patient states that yesterday he was descending some stairs. He suffered a plantar inversion injury of his right ankle. He reports that he iced it and elevated it, but had decreased ability to bear any weight on it. Patient states that he was ambulating around the house with a walker today, and actually fell and injured his left foot. Patient reports that he has moderate to severe pain in the right foot and ankle. Worse with any sort of palpation movement or weightbearing. Patient denies any other injuries at this time. Past Medical History - Allergies and Home Meds Allergies/Adverse Reactions: Allergies hydrocodone bitartrate [From Vicodin] Allergy (Verified 08/05/19 13:06) Hives latex Allergy (Verified 08/05/19 13:06) Unknown morphine Adverse Reaction (Verified 08/05/19 13:06) Other vancomycin Adverse Reaction (Verified 08/05/19 13:06) Itching Primary Care Physician: Raphael Day MD [Primary Care Provider] - Past Medical History: - - Hep C Surgical History: tonsillectomy Smoking Status: Former smoker - Family History Maternal Family History: Reports: COPD, Pulmonary Disease, - - Breast Mass Paternal Family History: Reports: COPD Review of Systems General: Denies: Chills, Fever, Sweats Eyes: Denies: Visual changes - bilaterally, Diplopia ENT: Denies: Rhinorrhea, Sore throat Cardiovascular: Denies: Chest pain, Palpitations Respiratory: Denies: Dyspnea, Cough, Dyspnea on exertion Gastrointestinal: Denies: Abdominal pain, Nausea, Vomiting, Diarrhea, Melena, Hematochezia Genitourinary: Denies: Dysuria, Hematuria, Frequency Musculoskeletal: Reports: Extremity Pain Skin: Denies: Rash, Wounds Neurological: Denies: Headache, Weakness, Numbness Psych: Denies: Depression Endocrine: Denies: Polyuria Hematologic: Denies: Lymphadenopathy Allergy: Denies: Swelling of the tongue Physical Exam Vital Signs/Narrative: Vital Signs Temp Pulse Resp BP Pulse Ox 08/05/19 12:48 97.8 F 67 15 159/93 H 98 Inital Vital Signs reviewed: Yes Extremeties: Lower extremity exam shows no pain at the knees bilaterally. There is pain and significant ecchymosis and swelling of the right foot and ankle. Limited range of motion secondary to pain. Normal pulses normal distal sensation and capillary refill. Examination of left foot shows focal swelling over the lateral portion of the foot. No ankle tenderness to palpation. Normal range of motion of the ankle. Diagnostic/Tx/Re-eval - Medical Decision Making Patient presented secondary to bilateral lower extremity injuries. 3 view of the foot and ankle bilaterally were obtained reviewed by myself as well as radiology. Right foot and ankle films are negative except for soft tissue swelling. Left foot and ankle films show evidence of a [place] fracture. Patient therefore at this time needs to be nonweightbearing of the left foot, and is able to weight-bear on the right foot technically because this is only sprain. However, the patient is unable to bear weight on the right foot due to his level of pain. He is unable to ambulate. He was placed in a walking boot bilaterally and will be admitted for PT OT evaluation. Disposition: Home ED Disposition - Plan for ED Patient: Disposition: Acute Care [facility] Diagnosis: Nondisplaced fracture of fifth left metatarsal bone, Right ankle sprain, Ambulatory dysfunction Referrals: Raphael Day MD [Primary Care Provider] -
[2019-08-05 16:30] VITALS: BP 122/87; PULSE 77; RESP 16; O2SAT 96
--- NOTE | 2019-08-05 16:46 | HP.PCM_ITS ---
Problem List (1) Liver transplant recipient Status: Chronic Comment: 2015 (2) Ambulatory dysfunction Status: Acute Comment: due to fracture left foot and Severe sprain of the right foot (3) Nondisplaced fracture of fifth left metatarsal bone Status: Acute (4) Right ankle sprain Status: Acute (5) Chronic hypoxemic respiratory failure Status: Resolved (6) Alcoholic cirrhosis of liver Status: Chronic Comment: S/P liver transplant (7) Chronic hepatitis C Status: Chronic Comment: has been treated and he has also had a liver transplant (8) Tobacco use disorder Status: Chronic (9) Depression Status: Chronic (10) Inanition Status: Chronic (11) Diarrhea Status: Chronic Qualifiers: Diarrhea type: unspecified type Qualified Code(s): R19.7 - Diarrhea, unspecified (12) Psoriasis Status: Chronic History of Present Illness Date of Admission: 08/05/19 Chief Complaint: unable to bear weight on either LE due to recent falls X 2. The patient is a 54 year old M with a past medical history of end-stage liver disease secondary to hepatitis C and alcohol abuse, liver transplant 06/2015, hypoxemia in the past (resolved) nicotine dependence in remission and obesity who presented to the ED at [facility] on 08/05/2019 complaining of 2 recent falls. On 08/04/2019 he had a fall and turned his right ankle over. He has been unable to bear weight on his right lower extremity. It is ecchymotic, swollen and extremely painful. Prior to presenting to the emergency room he had another fall and this caused localized swelling of the Left foot with localized bruising. He tells me that he has been increasingly weak recently secondary to poor appetite, poor intake and weight loss. He blames the falls on the weakness. X-ray of the left foot shows a nondisplaced fracture of the base of the left fifth metatarsal. X-rays of the right foot and ankle show no fracture or dislocation. The pain is actually worst in the right foot. He had no lab in the ED. He is being admitted to the hospital for observation as he is unable to bear weight at this time. Dr. Tino Gallegos has been consulted to participate in management. Past Medical History Past Medical History (Chronic Problems): Chronic Problems Liver transplant recipient (Chronic) 2014 Depression (Chronic) Inanition (Chronic) Diarrhea (Chronic) Psoriasis (Chronic) Alcoholic cirrhosis of liver (Chronic) S/P liver transplant Tobacco use disorder (Chronic) Chronic hepatitis C (Chronic) has been treated and he has also had a liver transplant Allergies hydrocodone bitartrate [From Vicodin] Allergy (Verified 08/05/19 13:06) Hives latex Allergy (Verified 08/05/19 13:06) Unknown morphine Adverse Reaction (Verified 08/05/19 13:06) Other vancomycin Adverse Reaction (Verified 08/05/19 13:06) Itching Home Medications: Ambulatory Orders Medication Instructions Recorded Metoprolol Tartrate [Lopressor 25 mg PO BID 01/24/16 (Beta Dm)] Pantoprazole Sodium [Protonix] 20 mg PO BID 01/24/16 Smz/Tmp Ds [Bactrim Ds] 1 tablet PO MOWEFR 01/24/16 Lisinopril [Zestril] 5 mg PO DAILY 04/27/17 Tamsulosin HCl [Flomax] 0.4 mg PO DAILY 04/27/17 Bupropion HCl [Bupropion Xl] 300 mg PO DAILY 08/05/19 Cholecalciferol (VIT D3) [Vitamin 1,000 unit PO DAILY 08/05/19 D] Nortriptyline HCl 10 mg PO QHS 08/05/19 Sertraline HCl 200 mg PO QHS 08/05/19 Tacrolimus 0.5 mg PO BID 08/05/19 Tacrolimus 1 mg PO BID 08/05/19 Ursodiol 300 mg PO TID 08/05/19 Surgical History: tonsillectomy, - - liver transplant in 2014, he had a shunt in the heart patched......does not know the diagnosis, tracheostomy Psychiatric History: No pertinent psych hx Lives: Spouse/ Significant Other Smoking Status: Former smoker Tobacco Use: Non-smoker Alcohol: None - used to be alcoholic and he quit drinking and had a liver transplant in 2014 Drugs: - - denies - *Family History Maternal History Items: COPD, Pulmonary Disease, - - Breast Mass Paternal History Items: COPD Review of Systems Constitutional: Denies: Chills, Fever, Weight Change Eyes: Denies: Blurred vision HEENT: Denies: Head Aches, Sinus Congestion, Sinus Drainage Cardiovascular: Denies: Chest Pain, Light Headedness, Palpitations Respiratory: Denies: Cough, Shortness of breath at rest, Sputum production Gastrointestinal: Reports: Diarrhea, - - decreased appetite. Denies: Abdominal Pain, Nausea, Vomiting Genitourinary: Denies: Dysuria Musculoskeletal: Reports: - - pain in bothe feet and in the right ankle. Denies: Joint Pain, Joint Tenderness Skin: Denies: Rash, Wounds Neurological: Reports: Balance problems - he blames this on weakness due to decreased appetite and weight loss. Denies: Difficulty swallowing, Focal weakness, Numbness, Tingling Psychiatric: Denies: Anxiety, Depression, Homicidal Ideations, Suicidal Ideations Endocrine: Reports: Change in Body Habitus - losing weight Hematologic/ Lymphatic: Denies: Easy Bruising, Easy Bleeding VTE Information - Inpt Only VTE Present on Admission: No VTE Mechan Device Prophylaxis: SCD's VTE Pharm Prophylaxis ordered?: No Reason prophylaxis not ordered:: Medical Contraindication - he has a hx of coagulopathy and no lab was done in the ED.....awaiting the results of PT to order pharmacologic DVT prophylaxis Patient Problems: Active and Suspected Problems Nondisplaced fracture of fifth left metatarsal bone (Acute) Right ankle sprain (Acute) Ambulatory dysfunction (Acute) due to fracture left foot and Severe sprain of the right foot - Physical Exam Vitals/I&O's: Vital Signs Temp Pulse Resp BP Pulse Ox 97.8 F 77 16 122/87 H 96 08/05/19 12:48 08/05/19 16:30 08/05/19 16:30 08/05/19 16:30 08/05/19 16:30 Oxygen Delivery Method Room Air Weight: 213 lb Body Mass Index (BMI) 35.4 General: Alert, Oriented x3, Cooperative, - - lying in bed and does not appear to be in any distress at the present. HEENT: Atraumatic, - - pupils pinpoint but, he had just received Dilaudid, Pupils are reactive to light Oral: Dry Mucosa Neck: Supple, No JVD, No Nodes, Trachea Midline, - - he has an open trach site Lungs: Clear to auscultation, Diminished Cardiovascular: Regular rate, Regular Rhythm, Normal S1, Normal S2, No murmurs, No rub noted, No Gallop Abdomen: Bowel Sounds Present, Soft, Non Tender, Non-Distended, - - there is a bandage over the abdomen ...there is an area of the umbilicus that is open....he tells me that he picks at it......no periwound erythema and no purulent discharge observed. Extremities: No clubbing, No cyanosis, - - He has edema of the right ankle and the right foot with extensive ecchymosis......it is very painful to touch. He has localized edema of the left lateral foot with some localized ecchymosis.......it is not nearly as painful as the right. Pedal pulses are palpable on the left but, he will barely let me touch the R foot. Skin: - - he has psoriasis over the extremities and the face....tells me that he uses a cream at home sometimes....does not know the name. Musculoskeletal: No Muscle Wasting Neurological: Cranial nerves II-XII grossly intact, Neuro grossly intact Psych/Mental Status: Normal Affect, Appropriate Assessment/Plan All Active Problems Nondisplaced fracture of fifth left metatarsal bone (Acute) Right ankle sprain (Acute) Ambulatory dysfunction (Acute) Acute hepatic encephalopathy (Resolved) Chronic hypoxemic respiratory failure (Resolved) Impressions 1. Acute fracture of the fifth left metatarsal secondary to a fall - Ice, non- weight bearing. Boot. Consult Dr. Gallegos. 2. Severe sprain of the right foot/ankle secondary to fall-plain x-ray is negative but I am suspicious he may have an occult fracture or a tendon tear. Unable to bear weight. Non- weight bearing until the results of the MRI of the Ankle and foot are available 3. weakness - blames on decreased appetite and weight loss. Has not been exercising as he knows he should. Wellbutrin recently increased to 300 mg and he has noticed that his appetite is getting worse since the increase. Will decrease the Wellbutrin to 150 again to see if the appetite improves. Will also check a Tacrolimus level....toxicity can lead to decreased appetite and GI sx. He is also c/o weakness and short term memory problems and this may also be due to Tacrolimus toxicity 4. S/P liver transplant for cirrhosis due to alcohol abuse and Hep C. On immunosuppressive drugs. Follows at the [facility] main campus. 5. Depression an max dose Zoloft and Pamelor and Wellbutrin. Zoloft can also cause problems with GI intolerance. He has a psychiatrist that he follows with. He also has a hx of self inflicted violence and has multiple scars of both forearms. Now he picks at his skin instead. Lab ordered. PT/OT consulted Dr. Gallegos consulted Order DVT prophylaxis after the results of the PT are available. SCD's ordered. MRI of the right foot and ankle ordered. Oxycodone for pain and Dilaudid for pain unrelieved by Oxycodone ICE, elevate Code Visit OBSV E&M: [id number] Initial observation care L3
--- NOTE | 2019-08-05 17:00 | MRI_ITS ---
STUDY: MRI RIGHT MIDFOOT REASON FOR EXAM: Male, 54 years old. Ankle sprain, foot swelling. TECHNIQUE: Standardized fat and water weighted pulse sequences were obtained in all 3 orthogonal planes. COMPARISON: X-ray 08/05/2019. FINDINGS: This study is limited due to patient motion on several pulse sequences. Nondisplaced fracture of the navicular bone. Fracture of the neck of the fifth metatarsal bone, appears subacute. Mild patchy marrow edema in the calcaneus is likely vascular. Mild edema in the cuboid bone, possible bone contusion. Small ankle and subtalar joint effusions. Extensor and flexor tendons are intact. Moderate to marked subcutaneous edema dorsally and laterally. MRI/Lower Ext/No Jt/w/o IMPRESSION: 1. Slightly limited due to patient motion. 2. Nondisplaced navicular fracture. 3. Nondisplaced fifth metatarsal neck fracture. 4. Cuboid bone contusion. 5. Small joint effusions. Electronically Signed: Flor Cannon MD at 22:59 EST Tel , Service support ,
[2019-08-05 17:06] VITALS: BP 162/97; PULSE 71; RESP 16; TEMP 37.1; O2SAT 98
[2019-08-05 17:10] VITALS: BMI 36.6
[2019-08-05 17:21] VITALS: BMI 36.6
--- NOTE | 2019-08-05 17:27 | MRI_ITS ---
STUDY: MRI RIGHT ANKLE WITHOUT CONTRAST REASON FOR EXAM: Male, 54 years old. Ankle sprain foot swelling. TECHNIQUE: Standardized fat and water weighted pulse sequences were obtained in all 3 orthogonal planes. COMPARISON: X-ray 08/05/2019. FINDINGS: This study is limited due to patient motion on multiple pulse sequences. The Achilles, peroneus, flexor and extensor tendons are intact with no tendinosis or tear. Plantar fascia is unremarkable. Medial and lateral ligament complexes are intact. Subtalar ligaments are unremarkable. High ankle ligaments are intact. Mild patchy marrow edema in the calcaneus and cuboid bones without obvious fracture. Possible bone contusions versus vascularity. Edema in the medial aspect of the navicular bone with suspected fracture on T1-weighted imaging. Moderate subcutaneous edema dorsally and laterally. MRI/Lower Ext Joint Only (Routine) IMPRESSION: 1. Limited due to patient motion. 2. Suspect nondisplaced navicular fracture. 3. Patchy calcaneal and cuboid marrow edema, possible bone contusions versus prominent vascular spaces. Electronically Signed: Flor Cannon MD at 22:52 EST Tel , Service support ,
[2019-08-05 18:20] LABS: Absolute Lymphocyte Count 0.59 X10^3/uL (0.83-4.51); Absolute Neutrophil Count 7.6 X10^3/uL (2.0-7.7); Basophil# 0.02 X10^3/uL; Basophil% 0.2 % (0-1); Eosinophil# 0.08 X10^3/uL; Eosinophils% 0.9 % (0-5); Hematocrit 50.3 % (40-54); Hemoglobin 17.8 g/dL (13.0-16.5); Lymphocyte # 0.59 X10^3/ul (4.0); Lymphocyte % 6.4 % (19-41); Mean Corp Hgb Conc 35.4 g/dL (32-36); Mean Corpuscular Hgb 30.1 pg (27.0-32.0); Mean Platelet Vol. 10.4 fl (6.2-12.0); Monocyte# 0.89 X10^3/uL; Monocyte% 9.7 % (0-10); NRBC Flagged by Analyzer 0 % (0-5); Neutrophil # 7.58 X10^3/uL (2.7-7.7); Neutrophil % 82.4 % (47-70); POSITIVE DIFFERENTIAL YES; Platelet Count 151 K/mm3 (150-450); RBC Distribution Width CV 13.5 % (11.6-14.6); RBC Distribution Width SD 41.5 fl (35.1-43.9); Red Blood Count 5.92 M/mm3 (4.6-6.2); White Blood Count 9.2 K/mm3 (4.4-11.0)
[2019-08-05 18:25] LABS: Differential Indicated SCAN CRITERIA MET
[2019-08-05 18:32] LABS: International Normalized Ratio 1.2; Prothrombin Time (Protime)PT. 14.9 SECONDS (11.7-14.9)
[2019-08-05 18:37] LABS: ALB/GLOB Ratio 1.3 RATIO (0.9-2.4); AST(SGOT) 30 U/L (15-37); Alanine Aminotransfer ALT/SGPT 46 U/L (16-61); Albumin, Serum 4.3 g/dL (3.2-5.0); Alkaline Phosphatase 135 U/L (45-117); Anion Gap 9 (5-15); BUN 15 mg/dL (7-18); BUN/Creat Ratio 10.2 RATIO (10-20); Calcium,Total 9.3 mg/dL (8.5-10.1); Chloride 103 mmol/L (98-107); Creatinine, Serum 1.47 mg/dL (0.70-1.30); EST Glomerular Filtration Rate 53 mL/min (>60); Est Glom Filt Rate - Afr Amer 64 mL/min (>60); Estimated Creatinine Clearance 48.81 ml/min; Globulin 3.2 g/dL (2.2-4.2); Glucose 115 mg/dL (74-106); Magnesium 1.7 mg/dL (1.6-2.6); Phosphorus 2.8 mg/dL (2.5-4.9); Protein, Total 7.5 g/dL (6.4-8.2); Sodium Level 133 mmol/L (136-145)
[2019-08-05 18:42] LABS: Differential Comment SCANNED
[2019-08-05] MEDS: 0.9% Saline Lock 10 ML Syringe IV ×2 (19:20→23:46)
[2019-08-05 22:04] VITALS: BP 140/98; PULSE 76; RESP 18; TEMP 36.4; O2SAT 97
[2019-08-05 22:17] VITALS: BP 140/98; PULSE 76
[2019-08-05] MEDS: Metoprolol Tartrate 25 MG Tablet PO (22:17)
[2019-08-05] MEDS: Nortriptyline 10 MG Capsule PO (22:17)
[2019-08-05] MEDS: Ursodiol 250 MG Tablet PO (22:18)
[2019-08-05] MEDS: Sertraline 100 MG Tablet 200 MG PO (22:18)
[2019-08-05] MEDS: Tacrolimus Anhydrous 1 MG Capsule PO (22:18)
[2019-08-05] MEDS: Pantoprazole Sodium 20 MG Tablet PO (22:19)
[2019-08-06] VITALS (7 sets, daily range): BP systolic 133–160; BP diastolic 76–101; PULSE 73–76; RESP 18–20; TEMP 36.4–36.5; O2SAT 92–96
[2019-08-06] MEDS: HYDROmorphone 1 MG/ML Syringe IV ×5 (02:52→23:53)
[2019-08-06] MEDS: 0.9% Saline Lock 10 ML Syringe IV ×4 (02:53→19:36)
[2019-08-06] MEDS: Ursodiol 250 MG Tablet PO ×3 (05:14→21:34)
[2019-08-06] MEDS: oxyCODONE 5 MG Tablet 10 MG PO ×4 (05:14→22:17)
[2019-08-06] MEDS: Enoxaparin 40 MG/0.4 ML Syringe SC (05:14)
[2019-08-06] MEDS: Tamsulosin HCl 0.4 MG Capsule PO (08:04)
[2019-08-06] MEDS: Metoprolol Tartrate 25 MG Tablet PO ×2 (08:04→21:31)
[2019-08-06] MEDS: Pantoprazole Sodium 20 MG Tablet PO ×2 (08:05→21:34)
[2019-08-06] MEDS: buPROPion (XL) 150 MG TABLET.XL PO (08:05)
[2019-08-06] MEDS: Lisinopril 5 MG Tablet PO (08:06)
[2019-08-06] MEDS: Tacrolimus Anhydrous 1 MG Capsule PO ×2 (08:14→21:32)
--- NOTE | 2019-08-06 09:41 | PCM.CONS.GEN ---
Problem List (1) Nondisplaced fracture of fifth left metatarsal bone Status: Acute (2) Fracture of navicular bone of right foot Status: Acute (3) Pain in left foot Status: Acute (4) Pain in right foot Status: Acute (5) Right ankle sprain Status: Acute Reason for Consult Date of Consultation: 08/06/19 Reason for Consultation: fracture of right navicular, sprain right ankle, non displaced fracture of left 5th metatarsal History of Present Illness: The patient is a 54 year old M with a past medical history of end-stage liver disease secondary to hepatitis C and alcohol abuse, liver transplant 06/2015, hypoxemia in the past (resolved) nicotine dependence in remission and obesity was consulted to podiatry after being admitted through the ER at [facility] on 08/05/2019 complaining of 2 recent falls. On 08/04 he says he fell and turned his ankle falling down one stair. He noticed bruising and swelling to the area and pain and was unable to sufficiently bear weight on this side. Prior to presenting to the ER he had another fall and hurt his left foot. Patient is shown to have non displaced fx of right navicular, sprain of right ankle, subacute fracture of right 5th met neck, and non displaced fracture of base of left 5th met. Patient relates that his pain is better controlled this morning than it was yesterday. He says his left foot is more painful than the right foot today. He currently denies any feelings of nausea, vomiting, fever, or chills. [] Past Medical History Past Medical History (Chronic Problems): Chronic Problems Liver transplant recipient (Chronic) 2014 Depression (Chronic) Inanition (Chronic) Diarrhea (Chronic) Psoriasis (Chronic) Alcoholic cirrhosis of liver (Chronic) S/P liver transplant Tobacco use disorder (Chronic) Chronic hepatitis C (Chronic) has been treated and he has also had a liver transplant Allergies hydrocodone bitartrate [From Vicodin] Allergy (Verified 08/05/19 13:06) Hives latex Allergy (Verified 08/05/19 17:17) It causes cracks in my hands vancomycin Allergy (Verified 08/05/19 17:17) Itching/turn red morphine Adverse Reaction (Verified 08/05/19 17:17) I feel dehydrated Home Medications: Ambulatory Orders Medication Instructions Recorded Metoprolol Tartrate [Lopressor 25 mg PO BID 01/24/16 (Beta Dm)] Pantoprazole Sodium [Protonix] 20 mg PO BID 01/24/16 Smz/Tmp Ds [Bactrim Ds] 1 tablet PO MOWEFR 01/24/16 Lisinopril [Zestril] 5 mg PO DAILY 04/27/17 Tamsulosin HCl [Flomax] 0.4 mg PO DAILY 04/27/17 Bupropion HCl [Bupropion Xl] 300 mg PO DAILY 08/05/19 Cholecalciferol (VIT D3) [Vitamin 1,000 unit PO DAILY 08/05/19 D] Nortriptyline HCl 10 mg PO QHS 08/05/19 Sertraline HCl 200 mg PO QHS 08/05/19 Tacrolimus 0.5 mg PO BID 08/05/19 Tacrolimus 1 mg PO BID 08/05/19 Ursodiol 300 mg PO TID 08/05/19 Surgical History: tonsillectomy, - - liver transplant in 2014, he had a shunt in the heart patched......does not know the diagnosis, tracheostomy Psychiatric History: No pertinent psych hx Lives: Spouse/ Significant Other Smoking Status: Former smoker Tobacco Use: Non-smoker Alcohol: None - used to be alcoholic and he quit drinking and had a liver transplant in 2014 Drugs: - - denies - *Family History Maternal History Items: COPD, Pulmonary Disease, - - Breast Mass Paternal History Items: COPD Review of Systems Constitutional: Denies: Chills, Fever, Weight Change HEENT: Denies: Head Aches, Sinus Congestion, Sinus Drainage Cardiovascular: Denies: Chest Pain, Palpitations Respiratory: Denies: Cough, Shortness of breath at rest, Sputum production Gastrointestinal: Denies: Abdominal Pain, Nausea, Vomiting Musculoskeletal: Reports: - - bilateral foot pain Psychiatric: Denies: Anxiety, Depression, Homicidal Ideations, Suicidal Ideations Hematologic/ Lymphatic: Denies: Easy Bruising, Easy Bleeding Patient Problems: Active and Suspected Problems Nondisplaced fracture of fifth left metatarsal bone (Acute) Right ankle sprain (Acute) Ambulatory dysfunction (Acute) due to fracture left foot and Severe sprain of the right foot Fracture of navicular bone of right foot (Acute) Pain in left foot (Acute) Pain in right foot (Acute) - Physical Exam Vitals/I&O's: Vital Signs Temp Pulse Resp BP Pulse Ox 97.6 F L 73 20 H 133/98 H 92 08/06/19 07:47 08/06/19 08:04 08/06/19 07:47 08/06/19 07:47 08/06/19 07:47 Oxygen Delivery Method Room Air Weight: 99.836 kg Body Mass Index (BMI) 36.6 Intake and Output for Last 24 Hours 08/04/19 08/05/19 08/06/19 23:59 23:59 23:59 Output Total 825 / 825 Balance -825 / -825 General: Alert, Oriented x3, Cooperative, No apparent distress Extremities: No cyanosis, Capillary Refill Less than 3 Seconds - To all distal digits of the right and left foot, No Calf Tenderness, Edema - Edema to bilateral feet/ankles, Peripheral Pulses Normal - DP and PT pulses were palpable bilateral, Tenderness - Patient has tenderness appreciated to the right midfoot area as well as in the area of the medial lateral ankle on the right side. Patient also has tenderness appreciated to the lateral aspect of the left foot. Patient has both edema and ecchymosis in areas to the dorsal right foot as well as around the ankle, as well as to the left lateral foot and lateral ankle. Skin: - - Patient noted to have psoriasis to bilateral lower legs that he says he has a prescription for at home but he has not been using it lately. Musculoskeletal: - - As noted above the patient is noted to have pain to the right foot and ankle and the left foot and areas of his injuries. Patient has active range of motion of toes 1 through 5 of the right and left foot. Patient has active range of motion ankle joint bilateral however this is decreased due to pain. Neurological: Sensory exam intact to light touch and pain, - - Patient denies any feelings of numbness/tingling Psych/Mental Status: Normal Affect, Appropriate Laboratory Results 08/05/19 18:05: WBC 9.2, RBC 5.92, Hgb 17.8 H, Hct 50.3, MCV 85.0, MCH 30.1, MCHC 35.4, RDW Std Deviation 41.5, RDW Coeff of Paz 13.5, Plt Count 151, MPV 10.4, Immature Gran % (Auto) 0.400, Neut % (Auto) 82.4 H, Lymph % (Auto) 6.4 L, [place] % (Auto) 9.7, Eos % (Auto) 0.9, Baso % (Auto) 0.2, Absolute Neuts (auto) 7.6, Absolute Lymphs (auto) 0.59 L, Nucleated RBC % 0, Differential Comment SCANNED 08/05/19 18:05: PT 14.9, INR 1.2 08/05/19 18:05: Sodium 133 L, Potassium 4.0, Chloride 103, Carbon Dioxide 21.0, Anion Gap 9, BUN 15, Creatinine 1.47 H, Estim Creat Clear Calc 48.81, Est GFR (MDRD) Af Amer 64, Est GFR (MDRD) Non-Af 53 L, BUN/Creatinine Ratio 10.2, Glucose 115 H, Calcium 9.3, Phosphorus 2.8, Magnesium 1.7, Total Bilirubin 1.10 H, AST 30, ALT 46, Alkaline Phosphatase 135 H, Total Protein 7.5, Albumin 4.3, Globulin 3.2, Albumin/Globulin Ratio 1.3 08/05/19 18:05: Tacrolimus Pending Current Medications Bupropion HCl (Wellbutrin Xl) 150 mg PO DAILY [facility] Last Admin: 08/06/19 08:05 Dose: 150 mg Documented by: Cholecalciferol (Vitamin D) 1,000 unit PO DAILYCM [facility] Last Admin: 08/06/19 08:05 Dose: 1,000 unit Documented by: Enoxaparin Sodium (Lovenox) 40 mg SC DAILY@0600 [facility] Last Admin: 08/06/19 05:14 Dose: 40 mg Documented by: Hydromorphone HCl (Dilaudid Inj) 1 mg IV Q3H PRN PRN PRN Reason: Pain Score 6-10/10 Last Admin: 08/06/19 06:22 Dose: 1 mg Documented by: Lisinopril (Zestril) 5 mg PO DAILY [facility] Last Admin: 08/06/19 08:06 Dose: 5 mg Documented by: Loperamide HCl (Imodium) 2 mg PO Q4H PRN PRN PRN Reason: Diarrhea Melatonin (Melatonin) 3 mg PO QHS PRN PRN PRN Reason: INSOMNIA Metoprolol Tartrate (Lopressor (Beta Dm)) 25 mg PO BID [facility] Last Admin: 08/06/19 08:04 Dose: 25 mg Documented by: Nortriptyline HCl (Pamelor) 10 mg PO QHS [facility] Last Admin: 08/05/19 22:17 Dose: 10 mg Documented by: Nutritional Formula (Lactose Free) (Ensure Enlive) 120 ml PO 4X/DAY [facility] Last Admin: 08/05/19 22:24 Dose: 120 ml Documented by: Ondansetron HCl (Zofran) 4 mg IV Q8H PRN PRN PRN Reason: NAUSEA/VOMITING Oxycodone HCl (Oxyir) 10 mg PO Q4H PRN PRN PRN Reason: Pain Score 4-5/10 Last Admin: 08/06/19 05:14 Dose: 10 mg Documented by: Pantoprazole Sodium (Protonix) 20 mg PO BID [facility] Last Admin: 08/06/19 08:05 Dose: 20 mg Documented by: Prochlorperazine Edisylate (Compazine Iv) 5 mg IV Q4H PRN PRN PRN Reason: Breakthrough nausea/vomiting Sertraline HCl (Zoloft) 200 mg PO QHS [facility] Last Admin: 08/05/19 22:18 Dose: 200 mg Documented by: Sodium Chloride () 10 - 40 ml IV UD PRN PRN Reason: SALINE FLUSH Last Admin: 08/06/19 06:22 Dose: 10 ml Documented by: Tacrolimus (Prograf) 0.5 mg PO BID [facility] Last Admin: 08/06/19 08:14 Dose: 0.5 mg Documented by: Tacrolimus (Prograf) 1 mg PO BID [facility] Last Admin: 08/06/19 08:14 Dose: 1 mg Documented by: Tamsulosin HCl (Flomax) 0.4 mg PO DAILY@0830 [facility] Last Admin: 08/06/19 08:04 Dose: 0.4 mg Documented by: Trimethoprim/Sulfamethoxazole (Bactrim Ds) 1 tablet PO MOWEFR [facility] Ursodiol (Colleen) 250 mg PO TID [facility] Last Admin: 08/06/19 05:14 Dose: 250 mg Documented by: Assessment/Plan All Active Problems Nondisplaced fracture of fifth left metatarsal bone (Acute) Right ankle sprain (Acute) Ambulatory dysfunction (Acute) Fracture of navicular bone of right foot (Acute) Pain in left foot (Acute) Pain in right foot (Acute) Acute hepatic encephalopathy (Resolved) Chronic hypoxemic respiratory failure (Resolved) Nondisplaced fracture of left fifth metatarsal bone Nondisplaced fracture of right navicular Subacute nondisplaced fracture of right fifth metatarsal neck Right ankle sprain Pain right foot and ankle Pain left foot Other comorbidities This patient was carefully examined and evaluated earlier this morning resting comfortably in his bed. Patient relates that he had no adverse events over night. Patient relates that his pain is being controlled. He says his right foot was more painful than the left yesterday. Today he relates that the right foot has slightly improved and that the left foot feels more tender today than the right. Patient is afebrile. X-ray exam of the right ankle and foot was read by radiologist as showing mild soft tissue edema with no fractures noted. Right foot and ankle MRI was read by radiologist as showing a nondisplaced fracture of the navicular, and nondisplaced subacute fifth metatarsal neck fracture, as well as possible cuboid contusion, as well as showing subcutaneous edema. It was reported that the study was somewhat limited due to patient motion. X-ray of the left foot demonstrated transverse fracture at the base of the fifth metatarsal with overlying soft tissue swelling. X-ray of the left ankle was read by radiologist as showing no ankle fracture. Each lower extremity was carefully examined and evaluated while the patient was in bed this morning. As noted in clinical exam, there is swelling and ecchymosis noted to the right dorsal foot as well as right ankle and to the left lateral foot and lateral ankle area. Patient does deny any feelings of numbness or tingling to either lower extremity. DP and PT pulses are palpable bilateral. Capillary refill time was under 3 seconds to each distal digit of each foot. Patient also has active range of motion of toes 1 through 5 bilateral. Patient has not been strict thus far with keeping his lower extremities elevated above heart level or icing the areas. Each foot and lower leg was then dressed with web roll followed by an Parveen bandage for compression. Pillows were stacked under each lower extremity so the patient is able to elevate above heart level. Patient is to keep the heels floated over the ends of pillows. Patient to ice multiple times throughout the day. Patient can ice behind the knees if ice unable to penetrate dressing. Patient is to be strict nonweightbearing to bilateral lower extremities at this time. He states that he understands this. Due to his nonweightbearing status, I anticipate this patient will need placed at a SNF type facility upon discharge. Patient has 2 CAM walkers in his room, and we can either reapply these starting tomorrow or switch to a posterior splint. Continued medical management and DVT prophylaxis appreciated per primary team. Podiatry will continue to follow this patient while in house.
--- NOTE | 2019-08-06 14:42 | NURSING ---
leg elevated on 3 pillows.
--- NOTE | 2019-08-06 15:32 | CASEMGMT ---
Social Work Consult: Discharge Planning Informant: ARRON Diaz CM Met with patient in room. Introduced self as well as social media editor role. Patient agreeable to meet with this social media editor. Patient stating to live with patient spouse and [id number] in a 2-story home with x2 steps to enter and 20 something stairs to get to the second floor. Patient stating to have fallen down the 2 steps to enter at least twice in the past few weeks. Patient stating I crawl up the stairs a lot. Patient stating to be unemployed and to have been on disability in the past but no currently. This social media editor noting that per patient chart patient is non-weight bearing to both lower extremities and inquiring what patient plan is at time of discharge. Patient stating to plan to return to home and take care of these. Patient referring to patient legs when stating these. This social media editor reminding patient that patient is not to put weight on legs at this time, patient stating not sure what I will do. This social media editor broaching topic of retirement placement. Patient stating I will not go to a retirement. After further discussion with patient about safety at discharge patient is agreeable to this social media editor leaving a list of nursing homes in patient room. Patient stating I will need to talk this over with my . This social media editor encouraging patient to speak with patient spouse this and a social media editor will follow up with patient on Thursday. Support provided. Olimpia BLANCO, TERESO
--- NOTE | 2019-08-06 18:10 | PCM.PROGNOTE ---
Patient Problems: Active and Suspected Problems Nondisplaced fracture of fifth left metatarsal bone (Acute) Right ankle sprain (Acute) Ambulatory dysfunction (Acute) due to fracture left foot and Severe sprain of the right foot Fracture of navicular bone of right foot (Acute) Pain in left foot (Acute) Pain in right foot (Acute) Subjective: Patient was seen and examined today, I talked briefly with podiatric medicine (Dr. Gallegos) concerning his care. Patient had a fall yesterday and suffered a fracture of the right navicular bone, and a nondisplaced fracture of the left fifth metatarsal bone. There is also a subacute nondisplaced fracture of the right fifth metatarsal neck. In addition, patient has a right ankle sprain. At this time patient is nonweightbearing and will need temporary placement in a usp facility. Patient has multiple medical problems including history of liver transplant, history of alcoholic cirrhosis, history of chronic hepatitis C, and a history of depression. Patient states he is not very ambulatory at home. Patient relates to history of PTSD due to his time in ICU during 1 of his hospitalizations. - Physical Exam Vitals/I&O's: Vital Signs Temp Pulse Resp BP Pulse Ox 97.5 F L 75 18 147/88 H 94 08/06/19 14:31 08/06/19 14:31 08/06/19 14:31 08/06/19 14:31 08/06/19 14:31 Oxygen Delivery Method Room Air Weight: 99.836 kg Body Mass Index (BMI) 36.6 Intake and Output for Last 24 Hours 08/04/19 08/05/19 08/06/19 23:59 23:59 23:59 Output Total 1175 / 1175 Balance -1175 / -1175 General: Alert, Oriented x3, Cooperative, No apparent distress, Well developed HEENT: Atraumatic, PERRLA, EOMI, Normocephalic Oral: Moist Mucosa Neck: Supple, Trachea Midline, Thyroid Normal Size and Texture Lungs: Clear to auscultation, Normal air movement, No rhonchi, No wheeze Cardiovascular: Regular rate, Regular Rhythm, Normal S1, Normal S2, No murmurs, No Ectopic Activity Abdomen: Bowel Sounds Present, Soft, Non Tender, Non-Distended Skin: No rashes, No breakdown Neurological: Cranial nerves II-XII grossly intact, Neuro grossly intact, Sensory exam intact to light touch and pain Psych/Mental Status: Normal Affect, Appropriate, Alert and oriented to time, place, person, mood and affect Laboratory Results 08/05/19 18:05: WBC 9.2, RBC 5.92, Hgb 17.8 H, Hct 50.3, MCV 85.0, MCH 30.1, MCHC 35.4, RDW Std Deviation 41.5, RDW Coeff of Paz 13.5, Plt Count 151, MPV 10.4, Immature Gran % (Auto) 0.400, Neut % (Auto) 82.4 H, Lymph % (Auto) 6.4 L, [place] % (Auto) 9.7, Eos % (Auto) 0.9, Baso % (Auto) 0.2, Absolute Neuts (auto) 7.6, Absolute Lymphs (auto) 0.59 L, Nucleated RBC % 0, Differential Comment SCANNED 08/05/19 18:05: PT 14.9, INR 1.2 08/05/19 18:05: Sodium 133 L, Potassium 4.0, Chloride 103, Carbon Dioxide 21.0, Anion Gap 9, BUN 15, Creatinine 1.47 H, Estim Creat Clear Calc 48.81, Est GFR (MDRD) Af Amer 64, Est GFR (MDRD) Non-Af 53 L, BUN/Creatinine Ratio 10.2, Glucose 115 H, Calcium 9.3, Phosphorus 2.8, Magnesium 1.7, Total Bilirubin 1.10 H, AST 30, ALT 46, Alkaline Phosphatase 135 H, Total Protein 7.5, Albumin 4.3, Globulin 3.2, Albumin/Globulin Ratio 1.3 08/05/19 18:05: Tacrolimus Pending Current Medications Bupropion HCl (Wellbutrin Xl) 150 mg PO DAILY [facility] Last Admin: 08/06/19 08:05 Dose: 150 mg Documented by: Cholecalciferol (Vitamin D) 1,000 unit PO DAILYCM [facility] Last Admin: 08/06/19 08:05 Dose: 1,000 unit Documented by: Enoxaparin Sodium (Lovenox) 40 mg SC DAILY@0600 [facility] Last Admin: 08/06/19 05:14 Dose: 40 mg Documented by: Hydromorphone HCl (Dilaudid Inj) 1 mg IV Q3H PRN PRN PRN Reason: Pain Score 6-10/10 Last Admin: 08/06/19 09:58 Dose: 1 mg Documented by: Lisinopril (Zestril) 5 mg PO DAILY [facility] Last Admin: 08/06/19 08:06 Dose: 5 mg Documented by: Loperamide HCl (Imodium) 2 mg PO Q4H PRN PRN PRN Reason: Diarrhea Melatonin (Melatonin) 3 mg PO QHS PRN PRN PRN Reason: INSOMNIA Metoprolol Tartrate (Lopressor (Beta Dm)) 25 mg PO BID [facility] Last Admin: 08/06/19 08:04 Dose: 25 mg Documented by: Nortriptyline HCl (Pamelor) 10 mg PO QHS [facility] Last Admin: 08/05/19 22:17 Dose: 10 mg Documented by: Nutritional Formula (Lactose Free) (Ensure Enlive) 120 ml PO 4X/DAY [facility] Last Admin: 08/06/19 17:00 Dose: 120 ml Documented by: Ondansetron HCl (Zofran) 4 mg IV Q8H PRN PRN PRN Reason: NAUSEA/VOMITING Oxycodone HCl (Oxyir) 10 mg PO Q4H PRN PRN PRN Reason: Pain Score 4-5/10 Last Admin: 08/06/19 17:00 Dose: 10 mg Documented by: Pantoprazole Sodium (Protonix) 20 mg PO BID [facility] Last Admin: 08/06/19 08:05 Dose: 20 mg Documented by: Prochlorperazine Edisylate (Compazine Iv) 5 mg IV Q4H PRN PRN PRN Reason: Breakthrough nausea/vomiting Sertraline HCl (Zoloft) 200 mg PO QHS [facility] Last Admin: 08/05/19 22:18 Dose: 200 mg Documented by: Sodium Chloride () 10 - 40 ml IV UD PRN PRN Reason: SALINE FLUSH Last Admin: 08/06/19 09:59 Dose: 10 ml Documented by: Tacrolimus (Prograf) 0.5 mg PO BID [facility] Last Admin: 08/06/19 08:14 Dose: 0.5 mg Documented by: Tacrolimus (Prograf) 1 mg PO BID [facility] Last Admin: 08/06/19 08:14 Dose: 1 mg Documented by: Tamsulosin HCl (Flomax) 0.4 mg PO DAILY@0830 [facility] Last Admin: 08/06/19 08:04 Dose: 0.4 mg Documented by: Trimethoprim/Sulfamethoxazole (Bactrim Ds) 1 tablet PO MOWEFR [facility] Ursodiol (Colleen) 250 mg PO TID [facility] Last Admin: 08/06/19 13:07 Dose: 250 mg Documented by: Medical Necessity - Tobacco Use Smoking Status: Former smoker Tobacco Use: Non-smoker Assessment/Plan All Active Problems Nondisplaced fracture of fifth left metatarsal bone (Acute) Right ankle sprain (Acute) Ambulatory dysfunction (Acute) Fracture of navicular bone of right foot (Acute) Pain in left foot (Acute) Pain in right foot (Acute) Acute hepatic encephalopathy (Resolved) Chronic hypoxemic respiratory failure (Resolved) #1 acute fracture of the fifth left metatarsal bone and right navicular bone secondary to fall-patient is nonweightbearing at this time, he will need temporary placement in a usp facility, I have discussed this with the patient. Podiatry will continue to see the patient #2 severe sprain of the right ankle and right foot #3 chronic debility-probably secondary to psychiatric disorder (depression) and inactivity-again patient will need temporary placement in a usp facility #4 status post liver transplant for cirrhosis secondary to alcohol abuse and hep [id number] will remain on his present medications #5 chronic major depression-patient will continue on his present medications #6 psoriasis #7 chronic kidney disease stage III-etiology unclear #8 urinary retention-probably secondary to BPH-patient has a Birch currently Code Visit Inpatient E&M: 91743 Subs Hosp L2
[2019-08-06] MEDS: Nortriptyline 10 MG Capsule PO (21:32)
[2019-08-06] MEDS: Sertraline 100 MG Tablet 200 MG PO (21:34)
[2019-08-06] MEDS: MELATONIN 3 MG TABLET PO (22:18)
[2019-08-07] VITALS (9 sets, daily range): BP systolic 110–128; BP diastolic 57–85; PULSE 72–90; RESP 16–18; TEMP 36.4–36.7; O2SAT 93–95
[2019-08-07] MEDS: oxyCODONE 5 MG Tablet 10 MG PO ×4 (05:53→21:10)
[2019-08-07] MEDS: Ursodiol 250 MG Tablet PO ×3 (05:53→21:05)
[2019-08-07] MEDS: Enoxaparin 40 MG/0.4 ML Syringe SC (05:54)
[2019-08-07] MEDS: buPROPion (XL) 150 MG TABLET.XL PO (09:09)
[2019-08-07] MEDS: Lisinopril 5 MG Tablet PO (09:10)
[2019-08-07] MEDS: Pantoprazole Sodium 20 MG Tablet PO ×2 (09:10→21:03)
[2019-08-07] MEDS: Metoprolol Tartrate 25 MG Tablet PO ×2 (09:10→21:02)
[2019-08-07] MEDS: Tamsulosin HCl 0.4 MG Capsule PO (09:10)
[2019-08-07] MEDS: Tacrolimus Anhydrous 1 MG Capsule PO ×2 (09:12→21:06)
--- NOTE | 2019-08-07 10:57 | PCM.PROGNOTE ---
Patient Problems: Active and Suspected Problems Nondisplaced fracture of fifth left metatarsal bone (Acute) Right ankle sprain (Acute) Ambulatory dysfunction (Acute) due to fracture left foot and Severe sprain of the right foot Fracture of navicular bone of right foot (Acute) Pain in left foot (Acute) Pain in right foot (Acute) Subjective: This patient was seen resting in his bed again this morning. Patient relates no adverse events overnight. Patient relates that his pain is currently being controlled. He relates that each foot feels slightly better today than yesterday. Patient was not elevating his lower legs when I entered the room today with his heels touching the bed. Patient currently denies any feelings of nausea, vomiting, fever, chills. - Physical Exam Vitals/I&O's: Vital Signs Temp Pulse Resp BP Pulse Ox 98.0 F 85 18 110/57 L 94 08/07/19 08:54 08/07/19 09:10 08/07/19 08:54 08/07/19 08:54 08/07/19 08:54 Oxygen Delivery Method Room Air Weight: 99.836 kg Body Mass Index (BMI) 36.6 Intake and Output for Last 24 Hours 08/05/19 08/06/19 08/07/19 23:59 23:59 23:59 Intake Total 480 / 480 300 / 300 Output Total 2375 / 2375 225 / 225 Balance -1895 / -1895 75 / 75 General: Alert, Oriented x3, Cooperative, No apparent distress Extremities: No cyanosis, Capillary Refill Less than 3 Seconds - To all the distal digits of the right and left foot, No Calf Tenderness, Edema - Edema to bilateral feet/ankles, Peripheral Pulses Normal - DP and PT pulses palpable bilateral, Tenderness - Continued tenderness appreciated to the right foot and ankle. Tenderness also noted to the lateral aspect of the left foot. Continued edema and ecchymosis appreciated to the dorsal right foot and ankle as well as the left lateral foot and ankle. Skin: - - Psoriasis to bilateral lower legs Musculoskeletal: - - Patient has active range of motion of toes 1 through 5 of the right and left foot. Patient has active range of motion of ankle joints bilateral. Neurological: Sensory exam intact to light touch and pain, - - Patient continues to deny any feelings of numbness, tingling, loss of sensation Psych/Mental Status: Normal Affect, Appropriate Current Medications Bupropion HCl (Wellbutrin Xl) 150 mg PO DAILY [facility] Last Admin: 08/07/19 09:09 Dose: 150 mg Documented by: Cholecalciferol (Vitamin D) 1,000 unit PO DAILYCM [facility] Last Admin: 08/07/19 09:10 Dose: 1,000 unit Documented by: Enoxaparin Sodium (Lovenox) 40 mg SC DAILY@0600 [facility] Last Admin: 08/07/19 05:54 Dose: 40 mg Documented by: Hydromorphone HCl (Dilaudid Inj) 1 mg IV Q3H PRN PRN PRN Reason: Pain Score 6-10/10 Last Admin: 08/06/19 23:53 Dose: 1 mg Documented by: Lisinopril (Zestril) 5 mg PO DAILY [facility] Last Admin: 08/07/19 09:10 Dose: 5 mg Documented by: Loperamide HCl (Imodium) 2 mg PO Q4H PRN PRN PRN Reason: Diarrhea Melatonin (Melatonin) 3 mg PO QHS PRN PRN PRN Reason: INSOMNIA Last Admin: 08/06/19 22:18 Dose: 3 mg Documented by: Metoprolol Tartrate (Lopressor (Beta Dm)) 25 mg PO BID [facility] Last Admin: 08/07/19 09:10 Dose: 25 mg Documented by: Nortriptyline HCl (Pamelor) 10 mg PO QHS [facility] Last Admin: 08/06/19 21:32 Dose: 10 mg Documented by: Nutritional Formula (Lactose Free) (Ensure Enlive) 120 ml PO 4X/DAY [facility] Last Admin: 08/07/19 09:08 Dose: 120 ml Documented by: Ondansetron HCl (Zofran) 4 mg IV Q8H PRN PRN PRN Reason: NAUSEA/VOMITING Oxycodone HCl (Oxyir) 10 mg PO Q4H PRN PRN PRN Reason: Pain Score 4-5/10 Last Admin: 08/07/19 10:26 Dose: 10 mg Documented by: Pantoprazole Sodium (Protonix) 20 mg PO BID [facility] Last Admin: 08/07/19 09:10 Dose: 20 mg Documented by: Prochlorperazine Edisylate (Compazine Iv) 5 mg IV Q4H PRN PRN PRN Reason: Breakthrough nausea/vomiting Sertraline HCl (Zoloft) 200 mg PO QHS [facility] Last Admin: 08/06/19 21:34 Dose: 200 mg Documented by: Sodium Chloride () 10 - 40 ml IV UD PRN PRN Reason: SALINE FLUSH Last Admin: 08/06/19 19:36 Dose: 10 ml Documented by: Tacrolimus (Prograf) 0.5 mg PO BID [facility] Last Admin: 08/07/19 09:11 Dose: 0.5 mg Documented by: Tacrolimus (Prograf) 1 mg PO BID [facility] Last Admin: 08/07/19 09:12 Dose: 1 mg Documented by: Tamsulosin HCl (Flomax) 0.4 mg PO DAILY@0830 [facility] Last Admin: 08/07/19 09:10 Dose: 0.4 mg Documented by: Trimethoprim/Sulfamethoxazole (Bactrim Ds) 1 tablet PO MOWEFR [facility] Ursodiol (Colleen) 250 mg PO TID [facility] Last Admin: 08/07/19 05:53 Dose: 250 mg Documented by: Medical Necessity - Tobacco Use Smoking Status: Former smoker Tobacco Use: Non-smoker Assessment/Plan All Active Problems Nondisplaced fracture of fifth left metatarsal bone (Acute) Right ankle sprain (Acute) Ambulatory dysfunction (Acute) Fracture of navicular bone of right foot (Acute) Pain in left foot (Acute) Pain in right foot (Acute) Acute hepatic encephalopathy (Resolved) Chronic hypoxemic respiratory failure (Resolved) Nondisplaced fracture of left fifth metatarsal bone Nondisplaced fracture of right navicular Subacute nondisplaced fracture of right fifth metatarsal neck Right ankle sprain Pain right foot and ankle Pain left foot Other comorbidities This patient was carefully examined and evaluated again this morning for his above-mentioned fractures and right ankle sprain. Patient relates that he had no adverse events over night again. Patient relates that his pain is being controlled and that each foot feels slightly better today than it did yesterday. Patient's vital signs are currently stable. Bilateral x-rays and right MRI were previously reviewed as noted in yesterday's note. Each lower extremity was carefully examined and evaluated again today. No significant changes appreciated in appearance of either foot. DP and PT pulses remain palpable bilateral and capillary refill time was under 3 seconds to each distal digit of each foot. Patient continues to have active range of motion of toes 1 through 5 bilateral. Patient did not have lower legs elevated when I entered the room again today. Each foot and lower leg were then dressed with webril followed by an Parveen bandage for compression. A right posterior splint was going to be placed today, however the right side splint was not able to be located in the hospital at this time and will need to be placed tomorrow. CAM walker can be placed to patient's left side. Needs to transfer in the future from bed to wheelchair he is to do this with heel pressure with the left side with the assistance of his CAM walker. Pillows were stacked under each lower extremity so the patient is able to elevate above heart level. Patient is to keep the heels floated over the ends of pillows. This was stressed in great detail again to the patient today. He says he will do a better job of this. Patient to continue to ice the areas. Patient is to be nonweightbearing to bilateral lower extremities. Had a long discussion again today with the patient about the importance of him going to an extended care facility upon discharge to have [id number] help in care due to the patient's weightbearing status. Vitamin D level was ordered for this patient and will continue to monitor for these results. Continued medical management and DVT prophylaxis appreciated per primary team. Podiatry will continue to follow this patient while in house.
[2019-08-07] MEDS: Docusate Sodium 100 MG Capsule 200 MG PO (14:09)
[2019-08-07] MEDS: Methocarbamol 750 MG Tablet PO ×2 (14:09→20:47)
--- NOTE | 2019-08-07 17:23 | PN_ITS ---
Patient Problems: Active and Suspected Problems Nondisplaced fracture of fifth left metatarsal bone (Acute) Right ankle sprain (Acute) Ambulatory dysfunction (Acute) due to fracture left foot and Severe sprain of the right foot Fracture of navicular bone of right foot (Acute) Pain in left foot (Acute) Pain in right foot (Acute) Subjective: Patient was seen and examined today, he complained of some leg cramping today-I placed him on Robaxin as needed. Patient still complains of pain in his feet at times from his fractures. Patient's IV came out this afternoon-I have elected at this time to keep his IV out. - Physical Exam Vitals/I&O's: Vital Signs Temp Pulse Resp BP Pulse Ox 98.1 F 77 16 121/85 H 93 08/07/19 14:08 08/07/19 14:08 08/07/19 14:08 08/07/19 14:08 08/07/19 14:08 Oxygen Delivery Method Room Air Weight: 99.836 kg Body Mass Index (BMI) 36.6 Intake and Output for Last 24 Hours 08/05/19 08/06/19 08/07/19 23:59 23:59 23:59 Intake Total 480 / 480 300 / 300 Output Total 2375 / 2375 625 / 625 Balance -1895 / -1895 -325 / -325 General: Alert, Oriented x3, Cooperative, No apparent distress, Well developed HEENT: Atraumatic, PERRLA, EOMI, Normocephalic Oral: Moist Mucosa Neck: Supple, No Nuchal Rigidity, Trachea Midline, Thyroid Normal Size and Texture Lungs: Clear to auscultation, Normal air movement, No rhonchi, No wheeze, No rales Cardiovascular: Regular rate, Regular Rhythm, Normal S1, Normal S2, No murmurs, PMI Normal, No rub noted Abdomen: Bowel Sounds Present, Soft, Non Tender, Non-Distended, No hernias noted Extremities: No clubbing, No cyanosis, Capillary Refill Less than 3 Seconds Skin: No rashes, No breakdown Neurological: Cranial nerves II-XII grossly intact, Neuro grossly intact, Sensory exam intact to light touch and pain, Coordination normal Psych/Mental Status: Normal Affect, Appropriate, Alert and oriented to time, place, person, mood and affect Laboratory Results 08/07/19 11:25: Vit D 1,25-Dihydroxy Pending Current Medications Bupropion HCl (Wellbutrin Xl) 150 mg PO DAILY [facility] Last Admin: 08/07/19 09:09 Dose: 150 mg Documented by: [facility] ([facility]it[facility]) [facility] Last Admin: 08/07/19 09:10 Dose: 1,000 unit Documented by: Docusate Sodium (Colace) 200 mg PO BID PRN PRN PRN Reason: constipaton Last Admin: 08/07/19 14:09 Dose: 200 mg Documented by: Enoxaparin Sodium (Lovenox) 40 mg SC DAILY@0600 [facility] Last Admin: 08/07/19 05:54 Dose: 40 mg Documented by: Hydromorphone HCl (Dilaudid Inj) 1 mg IV Q3H PRN PRN PRN Reason: Pain Score 6-10/10 Last Admin: 08/06/19 23:53 Dose: 1 mg Documented by: Lisinopril (Zestril) 5 mg PO DAILY [facility] Last Admin: 08/07/19 09:10 Dose: 5 mg Documented by: Loperamide HCl (Imodium) 2 mg PO Q4H PRN PRN PRN Reason: Diarrhea Melatonin (Melatonin) 3 mg PO QHS PRN PRN PRN Reason: INSOMNIA Last Admin: 08/06/19 22:18 Dose: 3 mg Documented by: Methocarbamol (Methocarbamol) 750 mg PO 4X/DAY PRN PRN PRN Reason: SPASMS Last Admin: 08/07/19 14:09 Dose: 750 mg Documented by: Metoprolol Tartrate (Lopressor (Beta Dm)) 25 mg PO BID [facility] Last Admin: 08/07/19 09:10 Dose: 25 mg Documented by: Nortriptyline HCl (Pamelor) 10 mg PO QHS [facility] Last Admin: 08/06/19 21:32 Dose: 10 mg Documented by: Nutritional Formula (Lactose Free) (Ensure Enlive) 120 ml PO 4X/DAY [facility] Last Admin: 08/07/19 17:09 Dose: 120 ml Documented by: Ondansetron HCl (Zofran) 4 mg IV Q8H PRN PRN PRN Reason: NAUSEA/VOMITING Oxycodone HCl (Oxyir) 10 mg PO Q4H PRN PRN PRN Reason: Pain Score 4-5/10 Last Admin: 08/07/19 17:09 Dose: 10 mg Documented by: Pantoprazole Sodium (Protonix) 20 mg PO BID [facility] Last Admin: 08/07/19 09:10 Dose: 20 mg Documented by: Prochlorperazine Edisylate (Compazine Iv) 5 mg IV Q4H PRN PRN PRN Reason: Breakthrough nausea/vomiting Sertraline HCl (Zoloft) 200 mg PO QHS [facility] Last Admin: 08/06/19 21:34 Dose: 200 mg Documented by: Sodium Chloride () 10 - 40 ml IV UD PRN PRN Reason: SALINE FLUSH Last Admin: 08/06/19 19:36 Dose: 10 ml Documented by: Tacrolimus (Prograf) 0.5 mg PO BID [facility] Last Admin: 08/07/19 09:11 Dose: 0.5 mg Documented by: Tacrolimus (Prograf) 1 mg PO BID [facility] Last Admin: 08/07/19 09:12 Dose: 1 mg Documented by: Tamsulosin HCl (Flomax) 0.4 mg PO DAILY@0830 [facility] Last Admin: 08/07/19 09:10 Dose: 0.4 mg Documented by: Trimethoprim/Sulfamethoxazole (Bactrim Ds) [facility] Ursodiol (Colleen) 250 mg PO TID [facility] Last Admin: 08/07/19 14:11 Dose: 250 mg Documented by: Medical Necessity - Tobacco Use Smoking Status: Former smoker Tobacco Use: Non-smoker Assessment/Plan All Active Problems Nondisplaced fracture of fifth left metatarsal bone (Acute) Right ankle sprain (Acute) Ambulatory dysfunction (Acute) Fracture of navicular bone of right foot (Acute) Pain in left foot (Acute) Pain in right foot (Acute) Acute hepatic encephalopathy (Resolved) Chronic hypoxemic respiratory failure (Resolved) #1 acute fracture of the fifth left metatarsal bone and right navicular bone secondary to fall-patient is nonweightbearing at this time, he will need temporary placement in a senior living facility, I have discussed this with the patient. Podiatry will continue to see the patient #2 severe sprain of the right ankle and right foot #3 chronic debility-probably secondary to psychiatric disorder (depression) and inactivity-again patient will need temporary placement in a senior living facility #4 status post liver transplant for cirrhosis secondary to alcohol abuse and hep [id number] will remain on his present medications #5 chronic major depression-patient will continue on his present medications #6 psoriasis #7 chronic kidney disease stage III-etiology unclear #8 urinary retention-probably secondary to BPH-patient has a Birch currently #9 muscle spasms in the leg secondary to immobility-again patient was placed on Robaxin as needed Code Visit Inpatient E&M: 14358 Subs Hosp L2
[2019-08-07] MEDS: Nortriptyline 10 MG Capsule PO (21:03)
[2019-08-07] MEDS: Sertraline 100 MG Tablet 200 MG PO (21:03)
[2019-08-08] VITALS (10 sets, daily range): BP systolic 126–148; BP diastolic 77–90; PULSE 80–101; RESP 18; TEMP 36.6–36.9; O2SAT 92–97
[2019-08-08] MEDS: oxyCODONE 5 MG Tablet 10 MG PO ×4 (01:39→15:49)
[2019-08-08] MEDS: Methocarbamol 750 MG Tablet PO ×2 (03:08→17:34)
[2019-08-08] MEDS: Ursodiol 250 MG Tablet PO ×3 (06:00→22:50)
[2019-08-08] MEDS: Docusate Sodium 100 MG Capsule 200 MG PO ×2 (06:00→15:49)
[2019-08-08] MEDS: Enoxaparin 40 MG/0.4 ML Syringe SC (06:01)
--- NOTE | 2019-08-08 08:23 | PN_ITS ---
Patient Problems: Active and Suspected Problems Nondisplaced fracture of fifth left metatarsal bone (Acute) Right ankle sprain (Acute) Ambulatory dysfunction (Acute) due to fracture left foot and Severe sprain of the right foot Fracture of navicular bone of right foot (Acute) Pain in left foot (Acute) Pain in right foot (Acute) Subjective: Patient was seen this morning for follow up on left foot as well as right foot fractures and right ankle sprain. Patient relates there is less pain. He relates he has not got out of bed, relates he has been resting. He has no new complaints, no complaints of fever, chills, nausea or vomiting. - Physical Exam Vitals/I&O's: Vital Signs Temp Pulse Resp BP Pulse Ox 97.9 F 86 18 148/90 H 96 08/08/19 08:00 08/08/19 08:00 08/08/19 08:00 08/08/19 08:00 08/08/19 08:00 Oxygen Delivery Method Room Air Weight: 99.836 kg Body Mass Index (BMI) 36.6 Intake and Output for Last 24 Hours 08/06/19 08/07/19 08/08/19 23:59 23:59 23:59 Intake Total 480 / 480 300 / 720 1190 / 1190 Output Total 2375 / 2375 1085 / 1535 1150 / 1150 Balance -1895 / -1895 -785 / -815 40 / 40 General: Alert, Oriented x3, Cooperative, No apparent distress Extremities: Capillary Refill Less than 3 Seconds, No Calf Tenderness, Peripheral Pulses Normal, - - Eccymosis and diffuse edema to the foot/ankle c/w with his injuries, no blisters, no open lesions, no erythema, no cellulitis, no streaking, no necrosis, no tissue loss or break down, no maloder, no fluctuance, no crepitus, no visible abscess bilateral foot/ankle/leg. Vascular status intact bilateral foot/ankle with CFT < 2 seconds to all toes. POP to fracture sites bilateral foot as well as right ankle c/w injuries - but improving. Sensation intact to toes bilateral. Psych/Mental Status: Appropriate, Alert and oriented to time, place, person, mood and affect Laboratory Results 08/07/19 11:25: Vit D 1,25-Dihydroxy Pending Current Medications Bupropion HCl (Wellbutrin Xl) 150 mg PO DAILY [facility] Last Admin: 08/07/19 09:09 Dose: 150 mg Documented by: [facility] Admin: 08/07/19 09:10 Dose: 1,000 unit Documented by: Docusate Sodium (Colace) 200 mg PO BID PRN PRN PRN Reason: constipaton Last Admin: 08/08/19 06:00 Dose: 200 mg Documented by: Enoxaparin Sodium (Lovenox) 40 mg SC DAILY@0600 [facility] Last Admin: 08/08/19 06:01 Dose: 40 mg Documented by: Hydromorphone HCl (Dilaudid Inj) 1 mg IV Q3H PRN PRN PRN Reason: Pain Score 6-10/10 Last Admin: 08/06/19 23:53 Dose: 1 mg Documented by: Lisinopril (Zestril) 5 mg PO DAILY [facility] Last Admin: 08/07/19 09:10 Dose: 5 mg Documented by: Loperamide HCl (Imodium) 2 mg PO Q4H PRN PRN PRN Reason: Diarrhea Melatonin (Melatonin) 3 mg PO QHS PRN PRN PRN Reason: INSOMNIA Last Admin: 08/06/19 22:18 Dose: 3 mg Documented by: Methocarbamol (Methocarbamol) 750 mg PO 4X/DAY PRN PRN PRN Reason: SPASMS Last Admin: 08/08/19 03:08 Dose: 750 mg Documented by: Metoprolol Tartrate (Lopressor (Beta Dm)) 25 mg PO BID [facility] Last Admin: 08/07/19 21:02 Dose: 25 mg Documented by: Nortriptyline HCl (Pamelor) 10 mg PO QHS [facility] Last Admin: 08/07/19 21:03 Dose: 10 mg Documented by: Nutritional Formula (Lactose Free) (Ensure Enlive) 120 ml PO 4X/DAY [facility] Last Admin: 08/07/19 21:02 Dose: 120 ml Documented by: Ondansetron HCl (Zofran) 4 mg IV Q8H PRN PRN PRN Reason: NAUSEA/VOMITING Oxycodone HCl (Oxyir) 10 mg PO Q4H PRN PRN PRN Reason: Pain Score 4-5/10 Last Admin: 08/08/19 06:00 Dose: 10 mg Documented by: Pantoprazole Sodium (Protonix) 20 mg PO BID [facility] Last Admin: 08/07/19 21:03 Dose: 20 mg Documented by: Prochlorperazine Edisylate (Compazine Iv) 5 mg IV Q4H PRN PRN PRN Reason: Breakthrough nausea/vomiting Sertraline HCl (Zoloft) 200 mg PO QHS [facility] Last Admin: 08/07/19 21:03 Dose: 200 mg Documented by: Sodium Chloride () 10 - 40 ml IV UD PRN PRN Reason: SALINE FLUSH Last Admin: 08/06/19 19:36 Dose: 10 ml Documented by: Tacrolimus (Prograf) 0.5 mg PO BID [facility] Last Admin: 08/07/19 21:02 Dose: 0.5 mg Documented by: Tacrolimus (Prograf) 1 mg PO BID [facility] Last Admin: 08/07/19 21:06 Dose: 1 mg Documented by: Tamsulosin HCl (Flomax) 0.4 mg PO DAILY@0830 [facility] Last Admin: 08/07/19 09:10 Dose: 0.4 mg Documented by: Trimethoprim/Sulfamethoxazole (Bactrim Ds) [facility] Ursodiol (Colleen) 250 mg PO TID [facility] Last Admin: 08/08/19 06:00 Dose: 250 mg Documented by: Medical Necessity - Tobacco Use Smoking Status: Former smoker Tobacco Use: Non-smoker Assessment/Plan All Active Problems Nondisplaced fracture of fifth left metatarsal bone (Acute) Right ankle sprain (Acute) Ambulatory dysfunction (Acute) Fracture of navicular bone of right foot (Acute) Pain in left foot (Acute) Pain in right foot (Acute) Acute hepatic encephalopathy (Resolved) Chronic hypoxemic respiratory failure (Resolved) Nondisplaced fracture of left fifth metatarsal bone Nondisplaced fracture of right navicular Subacute nondisplaced fracture of right fifth metatarsal neck Right ankle sprain Pain right foot and ankle Pain left foot Other comorbidities Re-evaluation performed. Reviewed findings with patient. Overall improvement noted. Applied below knee soft cast using cast padding and cheyanne bandages with mild compression. Keep clean, dry and intact. Patient to remain nonweightbearing bilateral foot. Put on CAM Walkers bilateral foot/ankle if he has to get out of bed. Keep feet elevated using pillows at all times. Recommend nursing facility placement due to condition and patient unable to weightbear bilateral foot. Medical management per the medicine team. Podiatry will continue to follow weekly. This was discussed with him.
[2019-08-08] MEDS: Lisinopril 5 MG Tablet PO (08:54)
[2019-08-08] MEDS: buPROPion (XL) 150 MG TABLET.XL PO (08:54)
[2019-08-08] MEDS: Smz/Tmp Ds Tablet 1 TABLET PO (08:55)
[2019-08-08] MEDS: Pantoprazole Sodium 20 MG Tablet PO ×2 (08:55→22:50)
[2019-08-08] MEDS: Tamsulosin HCl 0.4 MG Capsule PO ×2 (08:55→17:30)
[2019-08-08] MEDS: Metoprolol Tartrate 25 MG Tablet PO ×2 (08:55→22:51)
[2019-08-08] MEDS: Tacrolimus Anhydrous 1 MG Capsule PO ×2 (08:58→22:49)
--- NOTE | 2019-08-08 10:25 | CASEMGMT ---
Addendum entered by Princess Castro 08/08/19 11:27: SW updated pt on acceptance to TCU pending pre-cert. Pt states understanding. Original Note: Social Work Note SW met with pt to confirm discharge plans. SW introduced self and role at [facility]. PT is alert and orientated x3. Pt states he doesn't remember getting list of SNF that accept his insurance over the weekend. SW provided pt with new list of SNF that accept pt's insurance. Pt states I am not going to a group home. SW asked pt how he is going to manage at home since he is non weight bearing to both feet. Pt asked about TCU at [facility]. SW informed pt that this worker will have to call TCU and ask if they accept pt's insurance and if they have beds available. Pt states understanding. SW placed a call to referral line and spoke with Shanita. Shanita states she does have beds available on TCU and will submit for pre-cert. Plan: TCU pending pre-cert Princess Castro BELLSTAND ATTENDANT, SOIL FIELD TECHNICIAN
--- NOTE | 2019-08-08 11:26 | PN_ITS ---
Patient Problems: Active and Suspected Problems Nondisplaced fracture of fifth left metatarsal bone (Acute) Right ankle sprain (Acute) Ambulatory dysfunction (Acute) due to fracture left foot and Severe sprain of the right foot Fracture of navicular bone of right foot (Acute) Pain in left foot (Acute) Pain in right foot (Acute) Subjective: Patient was seen and examined today, he has no complaints of any leg cramping today. He does not complain of any increase in pain in his feet. I have decided to increase the patient's Flomax to 0.4 mg twice a day - Physical Exam Vitals/I&O's: Vital Signs Temp Pulse Resp BP Pulse Ox 97.9 F 86 18 148/90 H 96 08/08/19 08:00 08/08/19 08:55 08/08/19 08:19 08/08/19 08:00 08/08/19 08:00 Oxygen Delivery Method Room Air Weight: 99.836 kg Body Mass Index (BMI) 36.6 Intake and Output for Last 24 Hours 08/06/19 08/07/19 08/08/19 23:59 23:59 23:59 Intake Total 480 / 480 300 / 720 1190 / 1190 Output Total 2375 / 2375 1085 / 1535 1150 / 1150 Balance -1895 / -1895 -785 / -815 40 / 40 General: Alert, Oriented x3, Cooperative, No apparent distress, Well developed, Well nourished HEENT: Atraumatic, PERRLA, EOMI, Normocephalic Oral: Moist Mucosa Neck: Supple, Trachea Midline, Thyroid Normal Size and Texture Lungs: Clear to auscultation, Normal air movement, No rhonchi, No wheeze, No rales Cardiovascular: Regular rate, Regular Rhythm, Normal S1, Normal S2, No murmurs, No Ectopic Activity Abdomen: Bowel Sounds Present, Soft, Non Tender, Non-Distended Extremities: No clubbing, No cyanosis, Capillary Refill Less than 3 Seconds Skin: No rashes, No breakdown Neurological: Cranial nerves II-XII grossly intact, Neuro grossly intact, Sensory exam intact to light touch and pain Psych/Mental Status: Normal Affect, Appropriate, Alert and oriented to time, place, person, mood and affect Laboratory Results 08/07/19 11:25: Vit D 1,25-Dihydroxy Pending Current Medications Bupropion HCl (Wellbutrin Xl) 150 mg PO DAILY [facility] Last Admin: 08/08/19 08:54 Dose: 150 mg Documented by: Cholecalciferol (Vitamin D) 1,000 unit PO DAILYCM [facility] Last Admin: 08/08/19 08:53 Dose: 1,000 unit Documented by: Docusate Sodium (Colace) 200 mg PO BID PRN PRN PRN Reason: constipaton Last Admin: 08/08/19 06:00 Dose: 200 mg Documented by: Enoxaparin Sodium (Lovenox) 40 mg SC DAILY@0600 [facility] Last Admin: 08/08/19 06:01 Dose: 40 mg Documented by: Hydromorphone HCl (Dilaudid Inj) 1 mg IV Q3H PRN PRN PRN Reason: Pain Score 6-10/10 Last Admin: 08/06/19 23:53 Dose: 1 mg Documented by: Lisinopril (Zestril) 5 mg PO DAILY [facility] Last Admin: 08/08/19 08:54 Dose: 5 mg Documented by: Loperamide HCl (Imodium) 2 mg PO Q4H PRN PRN PRN Reason: Diarrhea Melatonin (Melatonin) 3 mg PO QHS PRN PRN PRN Reason: INSOMNIA Last Admin: 08/06/19 22:18 Dose: 3 mg Documented by: Methocarbamol (Methocarbamol) 750 mg PO 4X/DAY PRN PRN PRN Reason: SPASMS Last Admin: 08/08/19 03:08 Dose: 750 mg Documented by: Metoprolol Tartrate (Lopressor (Beta Dm)) 25 mg PO BID [facility] Last Admin: 08/08/19 08:55 Dose: 25 mg Documented by: Nortriptyline HCl (Pamelor) 10 mg PO QHS [facility] Last Admin: 08/07/19 21:03 Dose: 10 mg Documented by: Nutritional Formula (Lactose Free) (Ensure Enlive) 120 ml PO 4X/DAY [facility] Last Admin: 08/08/19 08:51 Dose: 120 ml Documented by: Ondansetron HCl (Zofran) 4 mg IV Q8H PRN PRN PRN Reason: NAUSEA/VOMITING Oxycodone HCl (Oxyir) 10 mg PO Q4H PRN PRN PRN Reason: Pain Score 4-5/10 Last Admin: 08/08/19 10:50 Dose: 10 mg Documented by: Pantoprazole Sodium (Protonix) 20 mg PO BID [facility] Last Admin: 08/08/19 08:55 Dose: 20 mg Documented by: Prochlorperazine Edisylate (Compazine Iv) 5 mg IV Q4H PRN PRN PRN Reason: Breakthrough nausea/vomiting Sertraline HCl (Zoloft) 200 mg PO QHS [facility] Last Admin: 08/07/19 21:03 Dose: 200 mg Documented by: Sodium Chloride () 10 - 40 ml IV UD PRN PRN Reason: SALINE FLUSH Last Admin: 08/06/19 19:36 Dose: 10 ml Documented by: Tacrolimus (Prograf) 0.5 mg PO BID [facility] Last Admin: 08/08/19 08:51 Dose: 0.5 mg Documented by: Tacrolimus (Prograf) 1 mg PO BID [facility] Last Admin: 08/08/19 08:58 Dose: 1 mg Documented by: Tamsulosin HCl (Flomax) 0.4 mg PO BID@0830,1730 [facility] Trimethoprim/Sulfamethoxazole (Bactrim Ds) 1 tablet PO MOWEFR [facility] Last Admin: 08/08/19 08:55 Dose: 1 tablet Documented by: Ursodiol (Colleen) 250 mg PO TID [facility] Last Admin: 08/08/19 06:00 Dose: 250 mg Documented by: Medical Necessity - Tobacco Use Smoking Status: Former smoker Tobacco Use: Non-smoker Assessment/Plan All Active Problems Nondisplaced fracture of fifth left metatarsal bone (Acute) Right ankle sprain (Acute) Ambulatory dysfunction (Acute) Fracture of navicular bone of right foot (Acute) Pain in left foot (Acute) Pain in right foot (Acute) Acute hepatic encephalopathy (Resolved) Chronic hypoxemic respiratory failure (Resolved) #1 acute fracture of the fifth left metatarsal bone and right navicular bone secondary to fall-patient is nonweightbearing at this time, he will need tempor alvin placement in a half-way facility, we are currently awaiting approval for this. Podiatry will continue to see the patient #2 severe sprain of the right ankle and right foot #3 chronic debility-probably secondary to psychiatric disorder (depression) and inactivity #4 status post liver transplant for cirrhosis secondary to alcohol abuse and hep [id number] will remain on his present medications #5 chronic major depression-patient will continue on his present medications #6 psoriasis #7 chronic kidney disease stage III-etiology unclear #8 urinary retention-probably secondary to BPH-patient has a Birch currently, again I increased his Flomax today. #9 muscle spasms in the leg secondary to immobility- patient on Robaxin as needed Code Visit Inpatient E&M: 32586 Subs Hosp L2
[2019-08-08 22:29] LABS: Tacrolimus (FK506) 5.1 ng/mL (2.0-20.0)
[2019-08-08] MEDS: Nortriptyline 10 MG Capsule PO (22:49)
[2019-08-08] MEDS: Sertraline 100 MG Tablet 200 MG PO (22:51)
[2019-08-09 02:10] VITALS: BP 136/85; PULSE 77; RESP 18; TEMP 36.8; O2SAT 94
[2019-08-09] MEDS: Enoxaparin 40 MG/0.4 ML Syringe SC (05:38)
[2019-08-09] MEDS: Ursodiol 250 MG Tablet PO ×2 (05:39→13:54)
[2019-08-09] MEDS: Tamsulosin HCl 0.4 MG Capsule PO (08:36)
[2019-08-09 08:43] VITALS: BP 130/86; PULSE 85; RESP 18; TEMP 36.6; O2SAT 94
[2019-08-09] MEDS: Pantoprazole Sodium 20 MG Tablet PO (08:44)
[2019-08-09 08:46] VITALS: PULSE 85
[2019-08-09] MEDS: Metoprolol Tartrate 25 MG Tablet PO (08:46)
[2019-08-09] MEDS: Tacrolimus Anhydrous 1 MG Capsule PO (08:49)
[2019-08-09] MEDS: Lisinopril 5 MG Tablet PO (08:51)
[2019-08-09] MEDS: buPROPion (XL) 150 MG TABLET.XL PO (08:51)
--- NOTE | 2019-08-09 09:08 | CASEMGMT ---
Social Work Note SW received message from Shanita with TCU stating pt has been approved to go to TCU today. Physician updated. Princess Castro INVESTIGATION CLERK, DIVEMASTER
--- NOTE | 2019-08-09 12:05 | PCM.TXEXTCAR ---
- Diet 08/05/19 17:00 Diet: Regular Diet Food consistency:: Regular Liquid Consistency:: Regular/Thin - Wound(s) abdomen Wound Type: open wound RL abd Wound Type: Skin Tear - Therapies Weight Bearing: Non weight bearing Physical Therapy: Eval and Treat Occupational Therapy: Eval and Treat - Problem/Diagnosis (1) Nondisplaced fracture of fifth left metatarsal bone Status: Acute Current Visit: Yes (2) Right ankle sprain Status: Acute Current Visit: Yes (3) Ambulatory dysfunction Status: Acute Comment: due to fracture left foot and Severe sprain of the right foot Current Visit: Yes (4) Liver transplant recipient Status: Chronic Comment: 2015 Current Visit: Yes (5) Depression Status: Chronic Current Visit: Yes (6) Fracture of navicular bone of right foot Status: Acute Current Visit: Yes (7) Chronic hepatitis C Status: Chronic Comment: has been treated and he has also had a liver transplant Current Visit: No - Allergies/Procedures Done in Hospital Allergies/Adverse Reactions: Allergies hydrocodone bitartrate [From Vicodin] Allergy (Verified 08/05/19 13:06) Hives latex Allergy (Verified 08/05/19 17:17) It causes cracks in my hands vancomycin Allergy (Verified 08/05/19 17:17) Itching/turn red morphine Adverse Reaction (Verified 08/05/19 17:17) I feel dehydrated - Type of Care/Length of Stay Estimated LOS: Convalescent Care Less Than 30 days Type of Care Needed: Skilled Rehab Potential: Good Prognosis: Good - Additional Orders/Day of Discharge H&P will serve as current which was dated: 08/05/19 Day of Discharge: 08/09/19 - Dietary and Speech Recommendations Dietitian Recommendations/Changes: Rec continue Regular diet and Ensure Enlive 120 ml PO 4x/day. Rec Rios 1 packet BID to promote wound healing. Will provide pt magic cup at L&D. - Follow Up Care Primary Care Physician: Raphael Day MD [Primary Care Provider] - Please Follow Up With: Tino Gallegos DPM When: in three weeks-call office for appointment, could see covering physician
[2019-08-09 14:26] LABS: Vitamin D 1,25-Dihydroxy 60.8 pg/mL (19.9-79.3)
--- NOTE | 2019-08-10 15:22 | DS.PCM_ITS ---
Discharge Date and Diagnosis - Problem List Patient Problems: Active and Suspected Problems Debility (Acute) Urinary retention (Acute) Date of Admission: 08/05/19 Date of Discharge: 08/09/19 - Primary Discharge Diagnosis Active and Suspected Problems #1 acute fracture of the fifth left metatarsal bone and right navicular bone secondary to fall and osteoporosis #2 severe sprain of the right ankle and right foot #3 chronic debility- secondary to psychiatric disorder (depression) and inactivity #4 status post liver transplant for cirrhosis secondary to alcohol abuse and hep C #5 chronic major depression #6 psoriasis #7 chronic kidney disease stage III-etiology unclear #8 urinary retention- secondary to BPH #9 osteoporosis - Secondary Discharge Diagnosis Chronic Problems Liver transplant recipient (Chronic) 2015 Depression (Chronic) Inanition (Chronic) Diarrhea (Chronic) Psoriasis (Chronic) Hypertension (Chronic) GERD (gastroesophageal reflux disease) (Chronic) BPH (benign prostatic hyperplasia) (Chronic) Insomnia (Chronic) Alcoholic cirrhosis of liver (Chronic) S/P liver transplant Tobacco use disorder (Chronic) Chronic hepatitis C (Chronic) has been treated and he has also had a liver transplant Hospital Course and Treatment Operations: None Procedures: None Summary of Care Provided: The patient is a 54 year old M who was seen in the emergency room at [facility] with chief complaint of bilateral foot pain after sustaining a fall at home. Patient has a known history of osteoporosis and other medical problems include past history of a liver transplant, chronic major depression, and BPH. X-rays obtained revealed an acute fracture of the left fifth metatarsal bone and right navicular bone, patient was admitted to [place] [id number] and seen in consultation by podiatry-patient was strict nonweightbearing, PT and OT saw the patient and it was advised and the patient agreed that he should go to a [facility]iary facility for inpatient rehab services. Patient had urinary retention while in the hospital and had to have a Birch catheter placed. On 08/09/2019, patient was seen and examined: On examination he appeared in good health and spirits. Vital signs as documented. Skin warm and dry and without overt rashes. Neck without JVD. Lungs clear. Heart exam notable for regular rhythm, normal sounds and absence of murmurs, rubs or gallops. Abdomen unremarkable and without evidence of organomegaly, masses, or abdominal aortic enlargement. Extremities-both lower legs are wrapped in surgical dressing and are splinted. Neuro: Cranial nerves II through XII are grossly intact, no focal motor deficits were noted, sensation to light touch and pinprick intact. Psych: Patient is alert and oriented x3, he does not appear anxious or depressed On 08/09/2019, patient was seen and examined and felt to be in stable condition for discharge to penitentiary facility. Patient Problems: Active and Suspected Problems Debility (Acute) Urinary retention (Acute) - Physical Exam Vitals/I&O's: Vital Signs Temp Pulse Resp BP Pulse Ox 97.9 F 85 18 130/86 H 94 08/09/19 08:43 08/09/19 08:46 08/09/19 08:43 08/09/19 08:43 08/09/19 08:43 Oxygen Delivery Method Room Air Weight: 99.836 kg Body Mass Index (BMI) 36.6 Intake and Output for Last 24 Hours 08/08/19 08/09/19 08/10/19 23:59 23:59 23:59 Intake Total 2460 / 2460 200 / 200 Output Total 2850 / 2850 950 / 950 Balance -390 / -390 -750 / -750 Home Medications: Medications to take at Discharge Metoprolol Tartrate [Lopressor (beta valerio)] 25 mg PO DAILY 01/24/16 Pantoprazole Sodium [Protonix] 40 mg PO DAILY 01/24/16 Smz/Tmp Ds [Bactrim Ds] 1 tablet PO MOWEFR 01/24/16 Lisinopril [Zestril] 5 mg PO DAILY 04/27/17 Bupropion HCl [Bupropion Xl] 300 mg PO DAILY 08/05/19 Cholecalciferol (VIT D3) [Vitamin D3] 500 unit PO DAILY 08/05/19 Nortriptyline HCl 10 mg PO QHS 08/05/19 Sertraline HCl 200 mg PO DAILY 08/05/19 Tacrolimus 0.5 mg PO BID 08/05/19 Tacrolimus 1 mg PO BID 08/05/19 Ursodiol 300 mg PO TID 08/05/19 Alendronate Sodium 70 mg PO WE 08/08/19 Simvastatin 20 mg PO QHS 08/08/19 Docusate Sodium [Colace] 200 mg PO BID PRN PRN cap 08/09/19 Enoxaparin [Lovenox] 40 mg SUBCUT DAILY@0600 08/09/19 Ensure Enlive 120 ml PO 4X/DAY 08/09/19 Melatonin 3 mg PO QHS PRN PRN tab 08/09/19 Methocarbamol 750 mg PO 4X/DAY PRN PRN tab 08/09/19 Oxycodone [Oxyir] 10 mg PO Q4H PRN PRN 7 Days #20 tab 08/09/19 Tamsulosin HCl [Flomax] 0.4 mg PO BID@0830,1730 08/09/19 Following Prescrptions Were Given to Patient: Oxycodone [Oxyir] 10 mg PO Q4H PRN PRN 7 Days #20 tab PRN Reason: Pain Score 4-5/10 Prescription Printed Primary Care Physician: Raphael Day MD [Primary Care Provider] - Please Follow Up With: Tino Gallegos DPM When: in three weeks-call office for appointment, could see covering physician Disposition: [facility] facility Minutes spent on discharge:: 32 Patient Condition:: Stable Medical Necessity - Tobacco Use Smoking Status: Former smoker Tobacco Use: Non-smoker Meaningful Use Info Meaningful Use Diagnoses (Choose all that apply): None applicable Code Visit Inpatient E&M: 14508 Disch Hosp
== END 2019-08-09 14:15 | disposition skilled nursing facility (03) | DRG 563 ==
LOC: ED 16:11 → MS3 16:54
PROVIDERS: Podiatrist; Admitting Provider Internal Medicine; Emergency Provider Emergency Medicine; Family Provider Family Medicine; PCP Family Medicine; Visit Provider Internal Medicine
DX: S92.354A Nondisplaced fracture of fifth metatarsal bone, right foot, initial encounter for closed fracture (principal); S92.251A Displaced fracture of navicular [scaphoid] of right foot, initial encounter for closed fracture; J96.11 Chronic respiratory failure with hypoxia; S93.401A Sprain of unspecified ligament of right ankle, initial encounter; W10.9XXA Fall (on) (from) unspecified stairs and steps, initial encounter; Y92.009 Unspecified place in unspecified non-institutional (private) residence as the place of occurrence of the external cause; Z94.4 Liver transplant status; B18.2 Chronic viral hepatitis C; F32.9 Major depressive disorder, single episode, unspecified; R29.6 Repeated falls; S93.601A Unspecified sprain of right foot, initial encounter; S92.355A Nondisplaced fracture of fifth metatarsal bone, left foot, initial encounter for closed fracture; Z72.0 Tobacco use; Z82.5 Family history of asthma and other chronic lower respiratory diseases; Z68.36 Body mass index [BMI] 36.0-36.9, adult; K70.40 Alcoholic hepatic failure without coma; K70.30 Alcoholic cirrhosis of liver without ascites; I12.9 Hypertensive chronic kidney disease with stage 1 through stage 4 chronic kidney disease, or unspecified chronic kidney disease; N18.3 Chronic kidney disease, stage 3 (moderate); M81.0 Age-related osteoporosis without current pathological fracture; L40.9 Psoriasis, unspecified; N40.1 Benign prostatic hyperplasia with lower urinary tract symptoms; R33.8 Other retention of urine; K21.9 Gastro-esophageal reflux disease without esophagitis; G47.00 Insomnia, unspecified
CPT/HCPCS: 36415; 73610; 73630; 73718; 73721; 80053; 80197; 82652; 83735; 84100; 85025; 85610; 97110; 97163; 97167; 97530; 97535; 97802; 99284; A4216

== ENCOUNTER 2019-08-09 14:15 | Inpatient (IN) | payer OTHER, SELFPAY ==
[2019-08-09 14:31] VITALS: BP 113/81; PULSE 84; RESP 20; TEMP 36.3; O2SAT 90; BMI 34.3
[2019-08-09 15:53] VITALS: BP 113/81; PULSE 84; RESP 20; TEMP 36.3; O2SAT 90
--- NOTE | 2019-08-09 16:28 | NURSING ---
PT ARRIVED TO FLOOR FROM MED SURG AT 1410 BY BED.
[2019-08-09] MEDS: Tamsulosin HCl 0.4 MG Capsule PO (17:00)
[2019-08-09] MEDS: Tacrolimus Anhydrous 1 MG Capsule PO (17:04)
--- NOTE | 2019-08-09 21:21 | HP.PCM_ITS ---
Problem List (1) Debility Status: Acute (2) Hypertension Status: Chronic (3) GERD (gastroesophageal reflux disease) Status: Chronic (4) BPH (benign prostatic hyperplasia) Status: Chronic (5) Insomnia Status: Chronic (6) Urinary retention Status: Acute (7) Nondisplaced fracture of fifth left metatarsal bone Status: Acute (8) Right ankle sprain Status: Acute (9) Liver transplant recipient Status: Chronic Comment: 2015 (10) Depression Status: Chronic (11) Psoriasis Status: Chronic (12) Fracture of navicular bone of right foot Status: Acute (13) Alcoholic cirrhosis of liver Status: Chronic Comment: S/P liver transplant (14) Chronic hepatitis C Status: Chronic Comment: has been treated and he has also had a liver transplant History of Present Illness Date of Admission: 08/09/19 Chief Complaint: Here for rehabilitation, strengthening, prior to discharge home with . The patient is a 54 year old Male with below past medical history presented to [facility] Emergency Department 08/05/2019 with lower extremity injury. 08/05/2019 X-ray left ankle showed 5th metatarsal base fracture. 08/05/2019 X-ray left foot showed 5th metatarsal base fracture. Walking down stairs, right ankle inversion injury. Unable to bear weight right ankle. Walking walker, fell, hurt left foot. Right foot, ankle X-rays negative. Non weight bearing left lower extremity. Placed in walking boot. 08/05/2019 Admit to Hospital. Consult Dr. Gallegos, Podiatry. MRI right foot, ankle ordered. Decrease Wellbutrin due to appetite loss. Check Tacrolimus level. 08/05/2019 MRI right ankle suspect nondisplaced navicular fracture. Bone contusions. 08/06/2019 Dr. Gallegos recommended Non weight bearing for bilateral lower extremities. Web roll, MARYAM wraps to bilateral lower extremities. Lucero catheter, increased Tamsulosin for urinary retention. 08/09/2019 Admit to TCU with debility, here for rehabilitation, strengthening, prior to discharge home with . Past Medical History Past Medical History (Chronic Problems): Chronic Problems Liver transplant recipient (Chronic) 2014 Depression (Chronic) Inanition (Chronic) Diarrhea (Chronic) Psoriasis (Chronic) Hypertension (Chronic) GERD (gastroesophageal reflux disease) (Chronic) BPH (benign prostatic hyperplasia) (Chronic) Insomnia (Chronic) Alcoholic cirrhosis of liver (Chronic) S/P liver transplant Tobacco use disorder (Chronic) Chronic hepatitis C (Chronic) has been treated and he has also had a liver transplant Allergies hydrocodone bitartrate [From Vicodin] Allergy (Verified 08/05/19 13:06) Hives latex Allergy (Verified 08/05/19 17:17) It causes cracks in my hands vancomycin Allergy (Verified 08/05/19 17:17) Itching/turn red morphine Adverse Reaction (Verified 08/05/19 17:17) I feel dehydrated Home Medications: Ambulatory Orders Medication Instructions Recorded Metoprolol Tartrate [Lopressor 25 mg PO DAILY 01/24/16 (beta dm)] Pantoprazole Sodium [Protonix] 40 mg PO DAILY 01/24/16 Smz/Tmp Ds [Bactrim Ds] 1 tablet PO MOWEFR 01/24/16 Lisinopril [Zestril] 5 mg PO DAILY 04/27/17 Bupropion HCl [Bupropion Xl] 300 mg PO DAILY 08/05/19 Cholecalciferol (VIT D3) [Vitamin 500 unit PO DAILY 08/05/19 D3] Nortriptyline HCl 10 mg PO QHS 08/05/19 Sertraline HCl 200 mg PO DAILY 08/05/19 Tacrolimus 0.5 mg PO BID 08/05/19 Tacrolimus 1 mg PO BID 08/05/19 Ursodiol 300 mg PO TID 08/05/19 Alendronate Sodium 70 mg PO WE 08/08/19 Simvastatin 20 mg PO QHS 08/08/19 Docusate Sodium [Colace] 200 mg PO BID PRN PRN cap 08/09/19 Enoxaparin [Lovenox] 40 mg SUBCUT DAILY@0600 08/09/19 Ensure Enlive 120 ml PO 4X/DAY 08/09/19 Melatonin 3 mg PO QHS PRN PRN tab 08/09/19 Methocarbamol 750 mg PO 4X/DAY PRN PRN tab 08/09/19 Oxycodone [Oxyir] 10 mg PO Q4H PRN PRN 7 Days #20 tab 08/09/19 Tamsulosin HCl [Flomax] 0.4 mg PO BID@0830,1730 08/09/19 Surgical History: tonsillectomy, - - liver transplant in 2014, he had a shunt in the heart patched......does not know the diagnosis, tracheostomy Psychiatric History: Depression Lives: Spouse/ Significant Other Smoking Status: Former smoker Tobacco Use: Cigarettes Alcohol: Sober Drugs: None - *Family History Maternal History Items: COPD, Pulmonary Disease, - - Breast Mass Paternal History Items: COPD Review of Systems Constitutional: Denies: Chills, Fever, Weight Change HEENT: Denies: Head Aches, Sinus Congestion, Sinus Drainage Cardiovascular: Denies: Chest Pain, Palpitations Respiratory: Denies: Cough, Shortness of breath at rest, Sputum production Gastrointestinal: Denies: Abdominal Pain, Nausea, Vomiting Genitourinary: Denies: Dysuria Musculoskeletal: Denies: Joint Pain, Joint Tenderness Skin: Denies: Rash, Wounds Neurological: Denies: Numbness, Tingling, Focal weakness Psychiatric: Denies: Anxiety, Depression, Homicidal Ideations, Suicidal Ideations Hematologic/ Lymphatic: Denies: Easy Bruising, Easy Bleeding VTE Information - Inpt Only VTE Present on Admission: No VTE Mechan Device Prophylaxis: Knee High CHANELLE Hose VTE Pharm Prophylaxis ordered?: Yes Patient Problems: Active and Suspected Problems Debility (Acute) Urinary retention (Acute) - Physical Exam Vitals/I&O's: Vital Signs Temp Pulse Resp BP Pulse Ox 97.3 F L 84 20 H 113/81 H 90 08/09/19 15:53 08/09/19 15:53 08/09/19 15:53 08/09/19 15:53 08/09/19 15:53 Oxygen Delivery Method Room Air Weight: 96.6 kg Body Mass Index (BMI) 34.3 Intake and Output for Last 24 Hours 08/07/19 08/08/19 08/09/19 23:59 23:59 23:59 Intake Total 240 / 240 Balance 240 / 240 General: Alert, Oriented x3, Cooperative HEENT: Atraumatic, PERRLA, EOMI, Normocephalic Neck: Supple, No JVD, Negative Carotid Bruits Lungs: Clear to auscultation, Normal air movement Cardiovascular: Regular rate, No murmurs Abdomen: Bowel Sounds Present, Soft, Non Tender, - - Indwelling Lucero Catheter. Extremities: No edema, Capillary Refill Less than 3 Seconds, - - Bilateral lower extremity dressings. Skin: No rashes, No breakdown Musculoskeletal: No Tenderness to Palpation of Joints or Extremities Neurological: Cranial nerves II-XII grossly intact Psych/Mental Status: Normal Affect, Appropriate Current Medications Alendronate Sodium (Fosamax) 70 mg PO WE [facility] Atorvastatin Calcium (Lipitor) 10 mg PO QHS [facility] Bupropion HCl (Wellbutrin Xl) 300 mg PO DAILY [facility] Calamine/Phenol (Calmoseptine Ointment) 1 applic TOPICAL 0600,2200 [facility]; Protocol Cholecalciferol (Vitamin D) 500 unit PO DAILY [facility] Docusate Sodium (Colace) 200 mg PO BID PRN PRN PRN Reason: constipaton Enoxaparin Sodium (Lovenox) 40 mg SC DAILY@0600 [facility] Influenza Virus Vaccine Quadrival (Flucelvax /Fluzone ) 0.5 ml IM .ONCE ONE Stop: 08/10/19 10:01 Lisinopril (Zestril) 5 mg PO DAILY [facility] Melatonin (Melatonin) 3 mg PO QHS PRN PRN PRN Reason: INSOMNIA Methocarbamol (Methocarbamol) 750 mg PO 4X/DAY PRN PRN PRN Reason: SPASMS Metoprolol Tartrate (Lopressor (Beta Dm)) 25 mg PO DAILY [facility] Nortriptyline HCl (Pamelor) 10 mg PO QHS [facility] Nutritional Formula (Lactose Free) (Ensure Enlive) 120 ml PO 4X/DAY [facility] Last Admin: 08/09/19 16:59 Dose: 120 ml Documented by: Nystatin (Mycostatin Powder) 1 applic TOPICAL 0600,1800 [facility]; Protocol Oxycodone HCl (Oxyir) 10 mg PO Q4H PRN PRN PRN Reason: Pain Score 4-5/10 Pantoprazole Sodium (Protonix) 40 mg PO DAILY [facility] Sertraline HCl (Zoloft) 200 mg PO DAILY [facility] Tacrolimus (Prograf) 0.5 mg PO BID [facility] Last Admin: 08/09/19 17:04 Dose: 0.5 mg Documented by: Tacrolimus (Prograf) 1 mg PO BID [facility] Last Admin: 08/09/19 17:04 Dose: 1 mg Documented by: Tamsulosin HCl (Flomax) 0.4 mg PO BID@0830,1730 [facility] Last Admin: 08/09/19 17:00 Dose: 0.4 mg Documented by: Trimethoprim/Sulfamethoxazole (Bactrim Ds) 1 tablet PO MOWEFR [facility] Tuberculin PPD (Tubersol, Aplisol, Ppd) 5 tu ID X1 ONE Stop: 08/10/19 10:01 Tuberculin PPD (Tubersol, Aplisol, Ppd) 5 tu ID X1 ONE Stop: 08/17/19 10:01 Ursodiol (Colleen) 250 mg PO TIDCM [facility] Assessment/Plan All Active Problems Nondisplaced fracture of fifth left metatarsal bone (Acute) Right ankle sprain (Acute) Ambulatory dysfunction (Acute) Fracture of navicular bone of right foot (Acute) Pain in left foot (Acute) Pain in right foot (Acute) Debility (Acute) Urinary retention (Acute) Acute hepatic encephalopathy (Resolved) Chronic hypoxemic respiratory failure (Resolved) 54 year old male with below past medical history hospitalized for left 5th metatarsal fracture, severe right ankle sprain, right navicular bone fracture, complicated by urinary retention, admitted to TCU with debility, here for rehabilitation, strengthening, prior to discharge home with . * Debility - PT/OT. * Pain - Tylenol 1000MG Q6H PRN pain (1-3), Oxycodone 10MG Q4H PRN pain (4-10) * Bowel - Miralax 17GM daily, Senna/colace 1 tablet BID, Dulcolax 10MG daily PRN. * Adult immunization - Administer Prevnar 13, Pneumovax 23, Fluzone as necessary. * DVT prophylaxis - Lovenox 40MG SC daily. * Osteoporosis - Alendronate 70MG once per week. * Hyperlipidemia - Atorvastatin 10MG QHS. * Depression - Bupropion XL 300MG daily, Sertraline 200MG daily, Nortriptyline 10MG QHS. * Vitamin D deficiency - D3 500IU daily. * Nutrition - Ensure Enlive 120ML 4x/day. * Hypertension - Metoprolol 25MG daily, Lisinopril 5MG daily. * Insomnia - Melatonin 3MG QHS PRN. * Skin irritation - Calmoseptine BID. * Muscle spasm - Robaxin 750MG 4x/day PRN. * Tinea Corporis - Nystatin powder BID. * GERD - Pantoprazole 40MG daily. * Liver transplant - Tacrolimus 1.5MG BID, Colleen 250MG TIDCM. * PCJ prophylaxis - Bactrim 1 tablet MoWeFr. * Urinary retention - Tamsulosin 0.4MG BID, remove indwelling lucero catheter, voiding trails TCU Day #3.
[2019-08-09] MEDS: Nortriptyline 10 MG Capsule PO (21:53)
[2019-08-09] MEDS: Atorvastatin Calcium 10 MG Tablet PO (21:53)
[2019-08-09] MEDS: Nystatin Powder 15gm Bottle 1 APPLIC TOPICAL (21:53)
[2019-08-09] MEDS: Menthol/Lanolin/Calamine/Znox 113 GM Tube 1 APPLIC TOPICAL (21:53)
[2019-08-10 05:50] LABS: Absolute Lymphocyte Count 0.58 X10^3/uL (0.83-4.51); Absolute Neutrophil Count 4.1 X10^3/uL (2.0-7.7); Basophil# 0.01 X10^3/uL; Basophil% 0.2 % (0-1); Eosinophil# 0.12 X10^3/uL; Eosinophils% 2.2 % (0-5); Hematocrit 46.6 % (40-54); Hemoglobin 16.5 g/dL (13.0-16.5); Lymphocyte # 0.58 X10^3/ul (4.0); Lymphocyte % 10.5 % (19-41); Mean Corp Hgb Conc 35.4 g/dL (32-36); Mean Corpuscular Hgb 29.9 pg (27.0-32.0); Mean Corpuscular Volume 84.6 fL (80-94); Mean Platelet Vol. 10.2 fl (6.2-12.0); Monocyte# 0.73 X10^3/uL; Monocyte% 13.2 % (0-10); NRBC Flagged by Analyzer 0 % (0-5); Neutrophil # 4.07 X10^3/uL (2.7-7.7); Neutrophil % 73.5 % (47-70); POSITIVE DIFFERENTIAL YES; Platelet Count 143 K/mm3 (150-450); RBC Distribution Width CV 13.5 % (11.6-14.6); RBC Distribution Width SD 41.4 fl (35.1-43.9); Red Blood Count 5.51 M/mm3 (4.6-6.2); White Blood Count 5.5 K/mm3 (4.4-11.0)
[2019-08-10 05:55] LABS: Differential Indicated SCAN CRITERIA MET
[2019-08-10 06:22] LABS: Anion Gap 9 (5-15); BUN 16 mg/dL (7-18); BUN/Creat Ratio 13.2 RATIO (10-20); Calcium,Total 9.4 mg/dL (8.5-10.1); Chloride 97 mmol/L (98-107); Creatinine, Serum 1.21 mg/dL (0.70-1.30); EST Glomerular Filtration Rate 66 mL/min (>60); Est Glom Filt Rate - Afr Amer 80 mL/min (>60); Estimated Creatinine Clearance 61.52 ml/min; Glucose 124 mg/dL (74-106); Potassium 3.4 mmol/L (3.5-5.1); Sodium Level 133 mmol/L (136-145)
[2019-08-10] MEDS: Lisinopril 5 MG Tablet PO (06:33)
[2019-08-10] MEDS: Sertraline 100 MG Tablet 200 MG PO (06:33)
[2019-08-10] MEDS: Tacrolimus Anhydrous 1 MG Capsule PO ×2 (06:33→18:11)
[2019-08-10 06:34] VITALS: BP 119/72; PULSE 80
[2019-08-10] MEDS: Metoprolol Tartrate 25 MG Tablet PO (06:34)
[2019-08-10] MEDS: buPROPion (XL) 300 MG TABLET.XL PO (06:34)
[2019-08-10] MEDS: Pantoprazole Sodium 40 MG Tablet PO (06:34)
[2019-08-10] MEDS: Alendronate Sodium 70 MG Tablet PO (06:34)
[2019-08-10] MEDS: Menthol/Lanolin/Calamine/Znox 113 GM Tube 1 APPLIC TOPICAL ×2 (06:35→20:13)
[2019-08-10] MEDS: Nystatin Powder 15gm Bottle 1 APPLIC TOPICAL ×2 (06:35→18:14)
[2019-08-10] MEDS: Enoxaparin 40 MG/0.4 ML Syringe SC (06:48)
[2019-08-10 06:49] LABS: Differential Comment SCANNED
[2019-08-10] MEDS: Ursodiol 250 MG Tablet PO ×3 (08:46→18:11)
[2019-08-10] MEDS: Smz/Tmp Ds Tablet 1 TABLET PO (08:46)
[2019-08-10] MEDS: Tamsulosin HCl 0.4 MG Capsule PO ×2 (08:46→18:11)
[2019-08-10 10:00] VITALS: PULSE 82; O2SAT 95
--- NOTE | 2019-08-10 10:15 | PCM.PN.RX ---
<Loretta Matt M - Last Filed: 08/10/19 10:15> Progress Note - Pharmacy Subjective: TCU ADMISSION Objective: Allergies hydrocodone bitartrate [From Vicodin] Allergy (Verified 08/05/19 13:06) Hives latex Allergy (Verified 08/05/19 17:17) It causes cracks in my hands vancomycin Allergy (Verified 08/05/19 17:17) Itching/turn red morphine Adverse Reaction (Verified 08/05/19 17:17) I feel dehydrated Current Medications Generic Name Dose Route Start Last Admin Trade Name Freq PRN Reason Stop Dose Admin Acetaminophen 1,000 mg 08/09/19 21:42 Tylenol PO Q6H PRN PRN Pain Score 1-3/10 Alendronate Sodium 70 mg 08/10/19 06:00 08/10/19 06:34 Fosamax PO 70 mg WE [facility]AM[facility]ID Administration Atorvastatin Calcium 10 mg 08/09/19 22:00 08/09/19 21:53 Lipitor PO 10 mg QHS JAS[facility]ID Administration Bacitracin 1 applic 08/10/19 14:00 Bacitracin Ointment TOPICAL TID [facility] Protocol Bisacodyl 10 mg 08/09/19 21:43 Dulcolax PO DAILY PRN Constipation Bupropion HCl 300 mg 08/10/19 06:00 08/10/19 06:34 Wellbutrin Xl PO 300 mg DAILY [facility] Administration Calamine/Phenol 1 applic 08/09/19 22:00 08/10/19 06:35 Calmoseptine Ointment TOPICAL 1 applicatio 0600,2200 [facility] Administration Protocol Cholecalciferol 500 unit 08/10/19 06:00 08/10/19 06:34 Vitamin D PO 500 unit DAILY [facility] Administration Enoxaparin Sodium 40 mg 08/10/19 06:00 08/10/19 06:48 Lovenox SC 40 mg DAILY@0600 [facility] Administration Lisinopril 5 mg 08/10/19 06:00 08/10/19 06:33 Zestril PO 5 mg DAILY [facility] Administration Melatonin 3 mg 08/09/19 14:54 Melatonin PO QHS PRN PRN INSOMNIA Methocarbamol 750 mg 08/09/19 14:54 Methocarbamol PO 4X/DAY PRN PRN SPASMS Metoprolol Tartrate 25 mg 08/10/19 06:00 08/10/19 06:34 Lopressor (Beta Dm) PO 25 mg DAILY [facility] Administration Nortriptyline HCl 10 mg 08/09/19 22:00 08/09/19 21:53 Pamelor PO 10 mg QHS [facility] Administration Nutritional Formula (Lactose Free) 120 ml 08/09/19 17:00 08/10/19 06:33 Ensure Enlive PO 120 ml 4X/DAY [facility] Administration Nystatin 1 applic 08/09/19 18:00 08/10/19 06:35 Mycostatin Powder TOPICAL 1 applicatio 0600,1800 [facility] Administration Protocol Oxycodone HCl 10 mg 08/09/19 14:54 Oxyir PO Q4H PRN PRN Pain Score 4-10/10 Pantoprazole Sodium 40 mg 08/10/19 06:00 08/10/19 06:34 Protonix PO 40 mg DAILY [facility] Administration Polyethylene Glycol 17 gm 08/10/19 06:00 08/10/19 06:35 Miralax PO Not Given DAILY [facility] Potassium Chloride 10 meq 08/11/19 08:00 [facility] Senna/Docusate Sodium 1 tablet 08/10/19 06:00 08/10/19 06:48 Senokot-S, Diane-Colace PO Not Given BID [facility] Sertraline HCl 200 mg 08/10/19 06:00 08/10/19 06:33 Zoloft PO 200 mg DAILY [facility] Administration Tacrolimus 0.5 mg 08/09/19 18:00 08/10/19 06:36 Prograf PO 0.5 mg BID [facility] Administration Tacrolimus 1 mg 08/09/19 18:00 08/10/19 06:33 Prograf PO 1 mg BID [facility] Administration Tamsulosin HCl 0.4 mg 08/09/19 17:30 08/10/19 08:46 Flomax PO 0.4 mg BID@0830,8270 [facility] Administration Trimethoprim/Sulfamethoxazole 1 tablet 08/10/19 08:00 08/10/19 08:46 Bactrim Ds PO 1 tablet MOWEFR [facility] Administration Tuberculin PPD 5 tu 08/17/19 10:00 Tubersol, Aplisol, Ppd ID 08/17/19 10:01 X1 ONE Ursodiol 250 mg 08/10/19 07:45 08/10/19 08:46 Colleen PO 250 mg TIDCM [facility] Administration Problem List Debility (Acute) Hypertension (Chronic) GERD (gastroesophageal reflux disease) (Chronic) BPH (benign prostatic hyperplasia) (Chronic) Insomnia (Chronic) Urinary retention (Acute) Vital Signs Temp Pulse Resp BP Pulse Ox 97.3 F L 80 20 H 119/72 90 08/09/19 15:53 08/10/19 06:34 08/09/19 15:53 08/10/19 06:34 08/09/19 15:53 Oxygen Delivery Method Room Air Weight: 96.6 kg Body Mass Index (BMI) 34.3 Sodium 133 mmol/L (136-145) L 08/10/19 05:10 Potassium 3.4 mmol/L (3.5-5.1) L 08/10/19 05:10 Chloride 97 mmol/L (98-107) L 08/10/19 05:10 Carbon Dioxide 27.0 mmol/L (21.0-32.0) 08/10/19 05:10 Anion Gap 9 (5-15) 08/10/19 05:10 BUN 16 mg/dL (7-18) 08/10/19 05:10 Creatinine 1.21 mg/dL (0.70-1.30) 08/10/19 05:10 Est GFR (MDRD) Af Amer 80 mL/min (>60) 08/10/19 05:10 Est GFR (MDRD) Non-Af 66 mL/min (>60) 08/10/19 05:10 BUN/Creatinine Ratio 13.2 RATIO (10-20) 08/10/19 05:10 Glucose 124 mg/dL (74-106) H 08/10/19 05:10 Assessment/Plan: 1. Pain: Tylenol 1000mg PO Q6h PRN Pain 1-310, OxyIR 10mg PO Q4h PRN Pain 4-10/10. Please continue to monitor PRN usage, increased/decreased pain 2. DVT prophylaxis: Lovenox 40mg SC daily. Please continue to monitor renal function, S/S bleeding/bruising 3. Osteoporosis: Alendronate 70mg PO once weekly on Thursday. Please continue to monitor for effectiveness, labs as clinically appropriate 4. Hyperlipidemia: Atorvastatin 10mg PO QHS. Please continue to monitor lipid panels at least annually as clinically indicated 5. Vitamin D deficiency: Cholecalciferol 500IU PO daily. Please continue to monitor and draw labs at least annually as clinically indicated 6. Hypertension: Metoprolol 25mg PO daily, Lisinopril 5mg PO daily. Please continue to monitor BP, Pulse, and potassium levels as needed 7. Insomnia: Melatonin 3mg PO QHS PRN. Please continue to monitor for effectiveness and PRN usage 8. Muscle spasm: Methocarbamol 750mg PO 4x/day PRN. Please continue to monitor for medication effectiveness and PRN usage 9. GERD: Pantoprazole 40mg PO daily. Please continue to monitor for effectiveness of medication 10. Liver transplant: Tacrolimus 1.5mg PO BID, Ursodiol 250mg PO TIDCM. Please continue to monitor patient, lab values as needed/appropriate and compliance 11. PCJ prophylaxis: Bactrim DS 1 tablet PO MoWeFr. Please continue to monitor potassium levels, as pt also on lisinopril 12. Urinary retention: Tamsulosin 0.4mg PO BID. Please continue to monitor for S/S BPH, urinary retention 13. Potassium Deficiency: KCl 10mEq PO Daily. Please continue to monitor potassium levels Psychotropic Medications: *14. Depression - Bupropion XL 300mg PO daily, Sertraline 200mg PO daily, Nortriptyline 10mg PO QHS. Please consider a GDR by 01/2020 if clinically indicated Unnecessary Medications: None Bowel Regimen: Miralax 17g PO daily, Senna/docusate 1 tablet PO BID, Dulcolax 10mg PO daily PRN. Please continue to monitor for increased/decreased constipation and/or diarrhea, PRN usage Date of Note:: 08/10/19 - Provider Comments Provider responsibility: Provider responsible to enter orders to implement recommendations <Jasvir Duran Chi - Last Filed: 08/10/19 13:01> Progress Note - Pharmacy Subjective: [] Objective: Allergies hydrocodone bitartrate [From Vicodin] Allergy (Verified 08/05/19 13:06) Hives latex Allergy (Verified 08/05/19 17:17) It causes cracks in my hands vancomycin Allergy (Verified 08/05/19 17:17) Itching/turn red morphine Adverse Reaction (Verified 08/05/19 17:17) I feel dehydrated Current Medications Generic Name Dose Route Start Last Admin Trade Name Freq PRN Reason Stop Dose Admin Acetaminophen 1,000 mg 08/09/19 21:42 Tylenol PO Q6H PRN PRN Pain Score 1-3/10 Alendronate Sodium 70 mg 08/10/19 06:00 08/10/19 06:34 Fosamax PO 70 mg WE JAMSHID Administration Atorvastatin Calcium 10 mg 08/09/19 22:00 08/09/19 21:53 Lipitor PO 10 mg QHS [facility] Administration Bacitracin 1 applic 08/10/19 14:00 Bacitracin Ointment TOPICAL TID [facility] Protocol Bisacodyl 10 mg 08/09/19 21:43 Dulcolax PO DAILY PRN Constipation Bupropion HCl 300 mg 08/10/19 06:00 08/10/19 06:34 Wellbutrin Xl PO 300 mg DAILY [facility] Administration Calamine/Phenol 1 applic 08/09/19 22:00 08/10/19 06:35 Calmoseptine Ointment TOPICAL 1 applicatio 0600,2200 [facility] Administration Protocol Cholecalciferol 500 unit 08/10/19 06:00 08/10/19 06:34 Vitamin D PO 500 unit DAILY [facility] Administration Enoxaparin Sodium 40 mg 08/10/19 06:00 08/10/19 06:48 Lovenox SC 40 mg DAILY@0600 [facility] Administration Lisinopril 5 mg 08/10/19 06:00 08/10/19 06:33 Zestril PO 5 mg DAILY [facility] Administration Melatonin 3 mg 08/09/19 14:54 Melatonin PO QHS PRN PRN INSOMNIA Methocarbamol 750 mg 08/09/19 14:54 Methocarbamol PO 4X/DAY PRN PRN SPASMS Metoprolol Tartrate 25 mg 08/10/19 06:00 08/10/19 06:34 Lopressor (Beta Dm) PO 25 mg DAILY [facility] Administration Nortriptyline HCl 10 mg 08/09/19 22:00 08/09/19 21:53 Pamelor PO 10 mg QHS [facility] Administration Nutritional Formula (Lactose Free) 120 ml 08/09/19 17:00 08/10/19 12:30 Ensure Enlive PO 120 ml 4X/DAY [facility] Administration Nystatin 1 applic 08/09/19 18:00 08/10/19 06:35 Mycostatin Powder TOPICAL 1 applicatio 0600,1800 [facility] Administration Protocol Oxycodone HCl 10 mg 08/09/19 14:54 08/10/19 10:28 Oxyir PO 10 mg Q4H PRN PRN Administration Pain Score 4-10/10 Pantoprazole Sodium 40 mg 08/10/19 06:00 08/10/19 06:34 Protonix PO 40 mg DAILY [facility] Administration Polyethylene Glycol 17 gm 08/10/19 06:00 08/10/19 06:35 Miralax PO Not Given DAILY [facility] Potassium Chloride 10 meq 08/11/19 08:00 [facility] Senna/Docusate Sodium 1 tablet 08/10/19 06:00 08/10/19 06:48 Senokot-S, Diane-Colace PO Not Given BID [facility] Sertraline HCl 200 mg 08/10/19 06:00 08/10/19 06:33 Zoloft PO 200 mg DAILY [facility] Administration Tacrolimus 0.5 mg 08/09/19 18:00 08/10/19 06:36 Prograf PO 0.5 mg BID [facility] Administration Tacrolimus 1 mg 08/09/19 18:00 08/10/19 06:33 Prograf PO 1 mg BID [facility] Administration Tamsulosin HCl 0.4 mg 08/09/19 17:30 08/10/19 08:46 Flomax PO 0.4 mg BID@0830,1730 [facility] Administration Trimethoprim/Sulfamethoxazole 1 tablet 08/10/19 08:00 08/10/19 08:46 Bactrim Ds PO 1 tablet MOWEFR [facility] Administration Tuberculin PPD 5 tu 08/17/19 10:00 Tubersol, Aplisol, Ppd ID 08/17/19 10:01 X1 ONE Ursodiol 250 mg 08/10/19 07:45 08/10/19 08:46 Colleen PO 250 mg TIDCM [facility] Administration Problem List Debility (Acute) Hypertension (Chronic) GERD (gastroesophageal reflux disease) (Chronic) BPH (benign prostatic hyperplasia) (Chronic) Insomnia (Chronic) Urinary retention (Acute) Vital Signs Temp Pulse Resp BP Pulse Ox 98.4 F 82 18 115/77 95 08/10/19 11:51 08/10/19 11:51 08/10/19 11:51 08/10/19 11:51 08/10/19 11:51 Oxygen Delivery Method Room Air Weight: 96.6 kg Body Mass Index (BMI) 34.3 Sodium 133 mmol/L (136-145) L 08/10/19 05:10 Potassium 3.4 mmol/L (3.5-5.1) L 08/10/19 05:10 Chloride 97 mmol/L (98-107) L 08/10/19 05:10 Carbon Dioxide 27.0 mmol/L (21.0-32.0) 08/10/19 05:10 Anion Gap 9 (5-15) 08/10/19 05:10 BUN 16 mg/dL (7-18) 08/10/19 05:10 Creatinine 1.21 mg/dL (0.70-1.30) 08/10/19 05:10 Est GFR (MDRD) Af Amer 80 mL/min (>60) 08/10/19 05:10 Est GFR (MDRD) Non-Af 66 mL/min (>60) 08/10/19 05:10 BUN/Creatinine Ratio 13.2 RATIO (10-20) 08/10/19 05:10 Glucose 124 mg/dL (74-106) H 08/10/19 05:10 Assessment/Plan: Psychotropic Medications: Unnecessary Medications: Bowel Regimen: - Provider Comments Provider responsibility: Provider responsible to enter orders to implement recommendations Provider Comments to Recommendations by Pharmacy: Agree
[2019-08-10] MEDS: oxyCODONE 5 MG Tablet 10 MG PO ×3 (10:28→20:13)
--- NOTE | 2019-08-10 10:51 | NURSING ---
Pt having c/o nausea and has nothing ordered PRN. Put on Dr Duran's list. Reported to Ciera HELLER.
--- NOTE | 2019-08-10 11:27 | NURSING ---
pt noted to have loose stools this AM, on admit pt had x4 soft stools in approx [address] ibarra updated, new order cdiff.
[2019-08-10] MEDS: Tuberculin,Purif.prot.deriv. 50 TU/ML Vial 5 ML ID (11:31)
[2019-08-10 11:36] LABS: Bedside Glucose 150 mg/dL (70-110)
--- NOTE | 2019-08-10 11:50 | NURSING ---
Pt c/o hot/cold flashes and feeling jittery. BP 115/77, P 82, R 18, Temp 98.4, SpO2 95% RA. Reported to Ciera HELLER and okay to check pt's BS. BS was 150. Reported to Ciera HELLER.
[2019-08-10 11:51] VITALS: BP 115/77; PULSE 82; RESP 18; TEMP 36.9; O2SAT 95
[2019-08-10 15:33] VITALS: BP 102/63; PULSE 82; RESP 16; TEMP 35.8; O2SAT 91
[2019-08-10 15:38] VITALS: BP 124/81; PULSE 80; RESP 18; TEMP 36.2; O2SAT 95
[2019-08-10] MEDS: BACITRACIN 15 GM Tube 1 APPLIC TOPICAL (15:58)
--- NOTE | 2019-08-10 16:09 | NURSING ---
Pt has self inflicted area from picking that is open near umbilicus. Pt removed dressing and stated to this nurse that it fell off. Reported to Ciera HELLER. Area cleansed with NS, pat dry. Bacitracin applied. Per Ciera HELLER, put gauze and [id number] dressing on area. Will continue to monitor.
[2019-08-10] MEDS: Nortriptyline 10 MG Capsule PO (20:13)
[2019-08-10] MEDS: Atorvastatin Calcium 10 MG Tablet PO (20:13)
[2019-08-11] MEDS: MELATONIN 3 MG TABLET PO (00:31)
[2019-08-11] MEDS: oxyCODONE 5 MG Tablet 10 MG PO ×4 (00:31→16:43)
--- NOTE | 2019-08-11 05:56 | NURSING ---
Pt remains in precautions. All care provided in room
[2019-08-11] MEDS: Menthol/Lanolin/Calamine/Znox 113 GM Tube 1 APPLIC TOPICAL ×2 (05:59→21:20)
[2019-08-11] MEDS: Nystatin Powder 15gm Bottle 1 APPLIC TOPICAL ×2 (06:00→16:45)
[2019-08-11] MEDS: Enoxaparin 40 MG/0.4 ML Syringe SC (06:00)
[2019-08-11 06:05] VITALS: BP 131/73; PULSE 84
[2019-08-11] MEDS: Metoprolol Tartrate 25 MG Tablet PO (06:05)
[2019-08-11] MEDS: buPROPion (XL) 300 MG TABLET.XL PO (06:07)
[2019-08-11] MEDS: Sertraline 100 MG Tablet 200 MG PO (06:07)
[2019-08-11] MEDS: Lisinopril 5 MG Tablet PO (06:07)
[2019-08-11] MEDS: Pantoprazole Sodium 40 MG Tablet PO (06:07)
[2019-08-11] MEDS: Tacrolimus Anhydrous 1 MG Capsule PO ×2 (06:08→17:22)
[2019-08-11] MEDS: BACITRACIN 15 GM Tube 1 APPLIC TOPICAL ×3 (06:15→21:19)
[2019-08-11] MEDS: Tamsulosin HCl 0.4 MG Capsule PO ×2 (09:07→16:43)
[2019-08-11] MEDS: Ursodiol 250 MG Tablet PO ×3 (09:08→16:45)
[2019-08-11] MEDS: Acetaminophen 500 MG Tablet 1000 MG PO ×2 (11:12→19:00)
--- NOTE | 2019-08-11 13:11 | NURSING ---
PT IN PRECAUTIONS AT THIS TIME. ALL CARE GIVEN IN ROOM.
--- NOTE | 2019-08-11 14:48 | NURSING ---
PT VERY PAINFUL WITH LEFT FOOT. PT STATED THIS IS THE WORSE IT HAS FELT,DO YOU THINK I HAVE A BLOOD CLOT OR CAN I GET A CAST PUT ON. PAIN MEDS GIVEN AND POLAR CARE ON. REPORTED TO ARRON GÓMEZ
[2019-08-11 15:43] VITALS: BP 95/65; PULSE 78; RESP 16; TEMP 36.4; O2SAT 92
[2019-08-11] MEDS: Atorvastatin Calcium 10 MG Tablet PO (21:17)
[2019-08-11] MEDS: Nortriptyline 10 MG Capsule PO (21:17)
[2019-08-12] MEDS: oxyCODONE 5 MG Tablet 10 MG PO ×3 (00:51→16:02)
[2019-08-12] MEDS: Acetaminophen 500 MG Tablet 1000 MG PO ×3 (02:48→18:44)
[2019-08-12] MEDS: Nystatin Powder 15gm Bottle 1 APPLIC TOPICAL ×2 (05:09→18:40)
[2019-08-12] MEDS: Menthol/Lanolin/Calamine/Znox 113 GM Tube 1 APPLIC TOPICAL ×2 (05:09→22:36)
[2019-08-12] MEDS: BACITRACIN 15 GM Tube 1 APPLIC TOPICAL ×3 (05:10→22:36)
[2019-08-12] MEDS: Enoxaparin 40 MG/0.4 ML Syringe SC (05:10)
[2019-08-12] MEDS: Pantoprazole Sodium 40 MG Tablet PO (05:11)
[2019-08-12] MEDS: Sertraline 100 MG Tablet 200 MG PO (05:11)
[2019-08-12] MEDS: Lisinopril 5 MG Tablet PO (05:11)
[2019-08-12] MEDS: buPROPion (XL) 300 MG TABLET.XL PO (05:11)
[2019-08-12] MEDS: Tacrolimus Anhydrous 1 MG Capsule PO ×2 (05:11→18:40)
[2019-08-12 05:13] VITALS: BP 146/78; PULSE 71
[2019-08-12] MEDS: Metoprolol Tartrate 25 MG Tablet PO (05:13)
[2019-08-12 06:19] LABS: Anion Gap 7 (5-15); BUN 15 mg/dL (7-18); BUN/Creat Ratio 10.6 RATIO (10-20); Calcium,Total 9.1 mg/dL (8.5-10.1); Chloride 97 mmol/L (98-107); Creatinine, Serum 1.42 mg/dL (0.70-1.30); EST Glomerular Filtration Rate 55 mL/min (>60); Est Glom Filt Rate - Afr Amer 66 mL/min (>60); Estimated Creatinine Clearance 52.42 ml/min; Glucose 109 mg/dL (74-106); Sodium Level 132 mmol/L (136-145)
[2019-08-12] MEDS: Tamsulosin HCl 0.4 MG Capsule PO ×2 (09:33→18:40)
[2019-08-12] MEDS: Smz/Tmp Ds Tablet 1 TABLET PO (09:33)
[2019-08-12] MEDS: Ursodiol 250 MG Tablet PO ×3 (09:33→18:40)
[2019-08-12 10:00] VITALS: PULSE 86; O2SAT 95
--- NOTE | 2019-08-12 11:49 | NURSING ---
All care provided in pt's room d/t precautions at this time.
[2019-08-12 15:30] VITALS: BP 116/65; PULSE 89; RESP 18; TEMP 35.8; O2SAT 90
--- NOTE | 2019-08-12 16:59 | NURSING ---
14F lucero d/c'd per order at this time. Pt tolerated procedure well. Pt reminded to use call light after using urinal. Will monitor.
[2019-08-12] MEDS: Nortriptyline 10 MG Capsule PO (22:35)
[2019-08-12] MEDS: Methocarbamol 750 MG Tablet PO (22:35)
[2019-08-12] MEDS: MELATONIN 3 MG TABLET PO (22:35)
[2019-08-12] MEDS: Atorvastatin Calcium 10 MG Tablet PO (22:35)
--- NOTE | 2019-08-12 22:47 | NURSING ---
Pt without BM for few days, SENIOR FINANCE MANAGER aware. N.O. D/C stool specimen and removed from precautions.
--- NOTE | 2019-08-12 22:54 | NURSING ---
Code status discussed with pt, pt wishes to be a full code
[2019-08-13] MEDS: oxyCODONE 5 MG Tablet 10 MG PO ×5 (03:10→22:24)
[2019-08-13] MEDS: Pantoprazole Sodium 40 MG Tablet PO (06:20)
[2019-08-13] MEDS: Tacrolimus Anhydrous 1 MG Capsule PO ×2 (06:20→17:48)
[2019-08-13 06:21] VITALS: BP 126/66; PULSE 81
[2019-08-13] MEDS: Senna/Docusate Sodium 1 Tablet PO (06:21)
[2019-08-13] MEDS: Sertraline 100 MG Tablet 200 MG PO (06:21)
[2019-08-13] MEDS: Menthol/Lanolin/Calamine/Znox 113 GM Tube 1 APPLIC TOPICAL ×2 (06:21→19:48)
[2019-08-13] MEDS: Metoprolol Tartrate 25 MG Tablet PO (06:21)
[2019-08-13] MEDS: buPROPion (XL) 300 MG TABLET.XL PO (06:21)
[2019-08-13] MEDS: Nystatin Powder 15gm Bottle 1 APPLIC TOPICAL ×2 (06:23→17:49)
[2019-08-13] MEDS: Enoxaparin 40 MG/0.4 ML Syringe SC (06:25)
[2019-08-13] MEDS: BACITRACIN 15 GM Tube 1 APPLIC TOPICAL (06:26)
[2019-08-13] MEDS: Lisinopril 5 MG Tablet PO (06:40)
[2019-08-13] MEDS: Ursodiol 250 MG Tablet PO ×3 (08:34→17:47)
[2019-08-13] MEDS: Tamsulosin HCl 0.4 MG Capsule PO ×2 (08:34→17:47)
[2019-08-13] MEDS: Acetaminophen 500 MG Tablet 1000 MG PO ×2 (11:46→19:47)
[2019-08-13 15:18] VITALS: BP 128/83; PULSE 73; RESP 18; TEMP 35.7; O2SAT 95
[2019-08-13] MEDS: MELATONIN 3 MG TABLET PO (19:47)
[2019-08-13] MEDS: Methocarbamol 750 MG Tablet PO (19:49)
[2019-08-13] MEDS: Atorvastatin Calcium 10 MG Tablet PO (19:49)
[2019-08-13] MEDS: Nortriptyline 10 MG Capsule PO (19:49)
[2019-08-14] MEDS: Acetaminophen 500 MG Tablet 1000 MG PO ×2 (01:52→20:16)
[2019-08-14] MEDS: Polyethylene Glycol 3350 17 GM PACKET PO (06:18)
[2019-08-14 06:19] VITALS: BP 105/66; PULSE 82
[2019-08-14] MEDS: oxyCODONE 5 MG Tablet 10 MG PO ×4 (06:19→22:25)
[2019-08-14] MEDS: Pantoprazole Sodium 40 MG Tablet PO (06:19)
[2019-08-14] MEDS: Lisinopril 5 MG Tablet PO (06:19)
[2019-08-14] MEDS: Metoprolol Tartrate 25 MG Tablet PO (06:19)
[2019-08-14] MEDS: Senna/Docusate Sodium 1 Tablet PO ×2 (06:19→17:42)
[2019-08-14] MEDS: Tacrolimus Anhydrous 1 MG Capsule PO ×2 (06:19→17:43)
[2019-08-14] MEDS: buPROPion (XL) 300 MG TABLET.XL PO (06:20)
[2019-08-14] MEDS: Sertraline 100 MG Tablet 200 MG PO (06:20)
[2019-08-14] MEDS: Enoxaparin 40 MG/0.4 ML Syringe SC (06:20)
[2019-08-14] MEDS: Menthol/Lanolin/Calamine/Znox 113 GM Tube 1 APPLIC TOPICAL ×2 (06:21→20:19)
[2019-08-14] MEDS: Nystatin Powder 15gm Bottle 1 APPLIC TOPICAL ×2 (06:21→17:47)
[2019-08-14] MEDS: BACITRACIN 15 GM Tube 1 APPLIC TOPICAL ×2 (06:25→20:22)
[2019-08-14] MEDS: Tamsulosin HCl 0.4 MG Capsule PO ×2 (08:20→17:43)
[2019-08-14] MEDS: Ursodiol 250 MG Tablet PO ×3 (08:20→17:42)
[2019-08-14] MEDS: Methocarbamol 750 MG Tablet PO ×2 (08:23→20:21)
--- NOTE | 2019-08-14 12:17 | PCA ---
Patient refused breakfast but has pizza by bedside
--- NOTE | 2019-08-14 13:18 | NURSING ---
PT REFUSED THIS NURSE TO APPLY BACITRACIN OR CHANGED DRESSING TO AB BY BELLY BUTTON.
[2019-08-14] MEDS: Bisacodyl 5 MG Tablet 10 MG PO (13:50)
--- NOTE | 2019-08-14 13:52 | NURSING ---
NO BM IN 3 DAYS,PRN DULCOLAX GIVEN.
[2019-08-14 15:27] VITALS: BP 120/68; PULSE 83; RESP 16; TEMP 36.1; O2SAT 96
[2019-08-14] MEDS: Atorvastatin Calcium 10 MG Tablet PO (20:19)
[2019-08-14] MEDS: Nortriptyline 10 MG Capsule PO (20:19)
[2019-08-15] MEDS: Bisacodyl 5 MG Tablet 10 MG PO (01:26)
--- NOTE | 2019-08-15 03:32 | NURSING ---
Pt c/o left lateral ankle pain. Per pt pain is burning and throbbing. Pt informed RN he would like drskimi removed to view foot. Pt agreeable to call Dr Gallegos today to see if he can see pt. Will continue to monitor and asses.
[2019-08-15] MEDS: Lisinopril 5 MG Tablet PO (04:55)
[2019-08-15] MEDS: oxyCODONE 5 MG Tablet 10 MG PO ×3 (04:55→22:56)
[2019-08-15] MEDS: Senna/Docusate Sodium 1 Tablet PO (04:56)
[2019-08-15] MEDS: buPROPion (XL) 300 MG TABLET.XL PO (04:56)
[2019-08-15] MEDS: Nystatin Powder 15gm Bottle 1 APPLIC TOPICAL ×2 (04:56→17:27)
[2019-08-15] MEDS: Pantoprazole Sodium 40 MG Tablet PO (04:56)
[2019-08-15] MEDS: Sertraline 100 MG Tablet 200 MG PO (04:56)
[2019-08-15] MEDS: Tacrolimus Anhydrous 1 MG Capsule PO ×2 (04:56→17:28)
[2019-08-15] MEDS: Enoxaparin 40 MG/0.4 ML Syringe SC (04:57)
[2019-08-15] MEDS: Menthol/Lanolin/Calamine/Znox 113 GM Tube 1 APPLIC TOPICAL ×2 (04:57→22:58)
[2019-08-15] MEDS: BACITRACIN 15 GM Tube 1 APPLIC TOPICAL ×3 (04:58→22:58)
[2019-08-15 04:59] VITALS: BP 136/73; PULSE 98
[2019-08-15] MEDS: Metoprolol Tartrate 25 MG Tablet PO (04:59)
[2019-08-15] MEDS: Ursodiol 250 MG Tablet PO ×3 (08:09→17:28)
[2019-08-15] MEDS: Tamsulosin HCl 0.4 MG Capsule PO ×2 (08:10→17:28)
[2019-08-15] MEDS: Smz/Tmp Ds Tablet 1 TABLET PO (08:10)
[2019-08-15 10:00] VITALS: PULSE 84; O2SAT 95
[2019-08-15] MEDS: Acetaminophen 500 MG Tablet 1000 MG PO (14:45)
[2019-08-15 15:33] VITALS: BP 133/85; PULSE 82; RESP 16; TEMP 36.6; O2SAT 95
[2019-08-15 16:00] VITALS: BP 126/69; PULSE 66; RESP 16; TEMP 36.6; O2SAT 96
[2019-08-15] MEDS: Nortriptyline 10 MG Capsule PO (22:53)
[2019-08-15] MEDS: Atorvastatin Calcium 10 MG Tablet PO (22:53)
[2019-08-16] MEDS: Menthol/Lanolin/Calamine/Znox 113 GM Tube 1 APPLIC TOPICAL ×2 (05:32→20:55)
[2019-08-16] MEDS: Tacrolimus Anhydrous 1 MG Capsule PO ×2 (05:34→17:52)
[2019-08-16] MEDS: buPROPion (XL) 300 MG TABLET.XL PO (05:35)
[2019-08-16] MEDS: Sertraline 100 MG Tablet 200 MG PO (05:35)
[2019-08-16] MEDS: Senna/Docusate Sodium 1 Tablet PO (05:35)
[2019-08-16] MEDS: Lisinopril 5 MG Tablet PO (05:36)
[2019-08-16] MEDS: Enoxaparin 40 MG/0.4 ML Syringe SC (05:36)
[2019-08-16] MEDS: Pantoprazole Sodium 40 MG Tablet PO (05:36)
[2019-08-16 05:40] VITALS: BP 135/83; PULSE 90
[2019-08-16] MEDS: BACITRACIN 15 GM Tube 1 APPLIC TOPICAL ×3 (05:40→20:48)
[2019-08-16] MEDS: Metoprolol Tartrate 25 MG Tablet PO (05:40)
[2019-08-16] MEDS: Nystatin Powder 15gm Bottle 1 APPLIC TOPICAL ×2 (05:41→17:56)
[2019-08-16] MEDS: oxyCODONE 5 MG Tablet 10 MG PO ×4 (05:44→20:52)
[2019-08-16 05:46] VITALS: PULSE 90; RESP 16; O2SAT 95
[2019-08-16] MEDS: Ursodiol 250 MG Tablet PO ×3 (09:08→17:52)
[2019-08-16] MEDS: Tamsulosin HCl 0.4 MG Capsule PO ×2 (09:08→17:52)
[2019-08-16] MEDS: Acetaminophen 500 MG Tablet 1000 MG PO ×2 (10:57→17:51)
--- NOTE | 2019-08-16 14:07 | NURSING ---
IN TO SEE PT AND CHANGE LEG DRESSINGS. PER ,PT NEEDS TO KEEP CAMO BOOTS ON AT ALL TIMES TILL FURTHER NOTICE.REPORTED TO ARRON DIEHL
--- NOTE | 2019-08-16 14:30 | PN_ITS ---
Patient Problems: Active and Suspected Problems Debility (Acute) Urinary retention (Acute) Subjective: Patient was seen this afternoon for follow up on left foot as well as right foot fractures and right ankle sprain. Patient relates there is continued pain especially when he is moving around and bumping them on things while in bed. He says he is only given Tylenol and asked for a different pain medication regimen this afternoon. He is apprehensive to work with therapy at this time due to pain. He has no new complaints, no complaints of fever, chills, nausea or vomiting. His date of injury was 08-04-2019. - Physical Exam Vitals/I&O's: Vital Signs Temp Pulse Resp BP Pulse Ox 97.8 F 90 16 135/83 H 95 08/15/19 16:00 08/16/19 05:46 08/16/19 05:46 08/16/19 05:40 08/16/19 05:46 Oxygen Delivery Method Room Air Weight: 96.6 kg Body Mass Index (BMI) 34.3 Intake and Output for Last 24 Hours 08/14/19 08/15/19 08/16/19 23:59 23:59 23:59 Intake Total 600 / 600 660 / 660 220 / 220 Output Total 1300 / 1300 350 / 350 250 / 250 Balance -700 / -700 310 / 310 -30 / -30 General: Alert, Oriented x3, Cooperative HEENT: Atraumatic Extremities: No cyanosis, Capillary Refill Less than 3 Seconds, No Calf Tenderness - Negative Blaze and Rubio signs bilateral, Edema - Reduced bilateral, Peripheral Pulses Normal, Tenderness - Pain to palpate fracture sites and ankle sprain aspect of the right lower extremity Skin: - - There is no open lesion, infection, redness, streaking, fracture blister, or maceration. There is no fluctuance or bogginess on palpation bilateral. There is ecchymosis and this appears to be fading demonstrating improvement. There are increased skin wrinkle lines noted suggesting the edema has reduced. Musculoskeletal: No Tenderness to Palpation of Joints or Extremities, No Muscle Wasting, Tenderness Neurological: Sensory exam intact to light touch and pain Psych/Mental Status: Normal Affect, Appropriate, Agitated, Anxious Current Medications Acetaminophen (Tylenol) 1,000 mg PO Q6H PRN PRN PRN Reason: Pain Score 1-3/10 Last Admin: 08/16/19 10:57 Dose: 1,000 mg Documented by: Alendronate Sodium (Fosamax) 70 mg PO WE [facility] Last Admin: 08/10/19 06:34 Dose: 70 mg Documented by: Atorvastatin Calcium (Lipitor) 10 mg PO QHS [facility] Last Admin: 08/15/19 22:53 Dose: 10 mg Documented by: Bacitracin (Bacitracin Ointment) 1 applic TOPICAL TID [facility]; Protocol Last Admin: 08/16/19 05:40 Dose: 1 applicatio Documented by: Bisacodyl (Dulcolax) 10 mg PO DAILY PRN PRN Reason: Constipation Last Admin: 08/15/19 01:26 Dose: 10 mg Documented by: Bupropion HCl (Wellbutrin Xl) 300 mg PO DAILY [facility] Last Admin: 08/16/19 05:35 Dose: 300 mg Documented by: Calamine/Phenol (Calmoseptine Ointment) 1 applic TOPICAL 0600,2200 [facility]; Protocol Last Admin: 08/16/19 05:32 Dose: 1 applicatio Documented by: Cholecalciferol (Vitamin D) 500 unit PO DAILY [facility] Last Admin: 08/16/19 05:33 Dose: 500 unit Documented by: Enoxaparin Sodium (Lovenox) 40 mg SC DAILY@0600 [facility] Last Admin: 08/16/19 05:36 Dose: 40 mg Documented by: Lisinopril (Zestril) 5 mg PO DAILY [facility] Last Admin: 08/16/19 05:36 Dose: 5 mg Documented by: Melatonin (Melatonin) 3 mg PO QHS PRN PRN PRN Reason: INSOMNIA Last Admin: 08/13/19 19:47 Dose: 3 mg Documented by: Methocarbamol (Methocarbamol) 750 mg PO 4X/DAY PRN PRN PRN Reason: SPASMS Last Admin: 08/14/19 20:21 Dose: 750 mg Documented by: Metoprolol Tartrate (Lopressor (Beta Dm)) 25 mg PO DAILY [facility] Last Admin: 08/16/19 05:40 Dose: 25 mg Documented by: Nortriptyline HCl (Pamelor) 10 mg PO QHS [facility] Last Admin: 08/15/19 22:53 Dose: 10 mg Documented by: Nutritional Formula (Lactose Free) (Ensure Enlive) 120 ml PO 4X/DAY [facility] Last Admin: 08/16/19 11:01 Dose: 120 ml Documented by: Nystatin (Mycostatin Powder) 1 applic TOPICAL 0600,1800 [facility]; Protocol Last Admin: 08/16/19 05:41 Dose: 1 applicatio Documented by: Ondansetron HCl (Zofran Odt) 8 mg PO Q8H PRN PRN PRN Reason: NAUSEA Oxycodone HCl (Oxyir) 10 mg PO Q4H PRN PRN PRN Reason: Pain Score 4-10/10 Last Admin: 08/16/19 10:57 Dose: 10 mg Documented by: Pantoprazole Sodium (Protonix) 40 mg PO DAILY [facility] Last Admin: 08/16/19 05:36 Dose: 40 mg Documented by: Polyethylene Glycol (Miralax) 17 gm PO DAILY [facility] Last Admin: 08/16/19 05:42 Dose: Not Given Documented by: Potassium Chloride (K-Dur) 10 meq PO DAILYCM [facility] Last Admin: 08/16/19 09:08 Dose: 10 meq Documented by: Senna/Docusate Sodium (Senokot-S, Diane-Colace) 1 tablet PO BID [facility] Last Admin: 08/16/19 05:35 Dose: 1 tablet Documented by: Sertraline HCl (Zoloft) 200 mg PO DAILY [facility] Last Admin: 08/16/19 05:35 Dose: 200 mg Documented by: Tacrolimus (Prograf) 0.5 mg PO BID [facility] Last Admin: 08/16/19 05:34 Dose: 0.5 mg Documented by: Tacrolimus (Prograf) 1 mg PO BID [facility] Last Admin: 08/16/19 05:34 Dose: 1 mg Documented by: Tamsulosin HCl (Flomax) 0.4 mg PO BID@0830,1730 [facility] Last Admin: 08/16/19 09:08 Dose: 0.4 mg Documented by: Trimethoprim/Sulfamethoxazole (Bactrim Ds) 1 tablet PO MOWEFR [facility] Last Admin: 08/15/19 08:10 Dose: 1 tablet Documented by: Tuberculin PPD (Tubersol, Aplisol, Ppd) 5 tu ID X1 ONE Stop: 08/17/19 10:01 Ursodiol (Colleen) 250 mg PO TIDCM [facility] Last Admin: 08/16/19 12:14 Dose: 250 mg Documented by: Medical Necessity - Tobacco Use Smoking Status: Former smoker Tobacco Use: Cigarettes Assessment/Plan All Active Problems Nondisplaced fracture of fifth left metatarsal bone (Acute) Right ankle sprain (Acute) Ambulatory dysfunction (Acute) Fracture of navicular bone of right foot (Acute) Pain in left foot (Acute) Pain in right foot (Acute) Debility (Acute) Urinary retention (Acute) Acute hepatic encephalopathy (Resolved) Chronic hypoxemic respiratory failure (Resolved) Nondisplaced fracture of left fifth metatarsal bone Nondisplaced fracture of right navicular Subacute nondisplaced fracture of right fifth metatarsal neck Right ankle sprain Pain right foot and ankle Pain left foot Other comorbidities Re-evaluation performed. Reviewed findings with patient. Overall improvement noted. Applied bilateral lower externally Parveen wraps. Keep clean, dry and intact. Patient to remain nonweightbearing bilateral foot. Put on CAM Walkers bilateral foot/ankle if he has to get out of bed. Advised him to wear these while in bed because he is very active and he keeps bumping and irritating both of his injured limbs. I reviewed his pain medication regimen and it appears he has Tylenol and oxycodone ordered. I do not recommend additional pain medication at this time. He was advised to remain compliant with the immobilization guidelines to also help with pain. Keep feet elevated using pillows at all times. To continue to work with physical therapy. I am concerned he has a low vitamin D level which is important for bone healing. This test will be ordered. Medical management per the medicine team. Podiatry will continue to follow weekly. This was discussed with him. Jovana Magdaleno DPM, [facility] [phone]
--- NOTE | 2019-08-16 14:50 | CASEMGMT ---
Addendum entered by Juana Carter 08/16/19 15:35: Patient stated he has been active with psychologist Joel Vargas at [facility] and psychiatrist Anabelle Zavaleat at [facility]. Offered to schedule f/u appt - pt agreeable. Dr. Vargas scheduled for 09/20 at 2 pm, Dr. Zavaleta 09/08 at 12:15 pm that was previously scheduled. Pt aware. Original Note: Social Work Completed MDS assessment with patient. Discussed further feelings and loss patient has experienced in his life. Validated patient's feelings, discussed coping mechanisms, and provided active listening to pt. Discussed motivation and participation in therapy and DC goals. Explained insurance update 08/22 and continued stay is not guaranteed. Discussed patient's support system at home. Offered continued support with feelings throughout stay. Pt very appreciative of staff thus far and conversation with SW. Will continue to follow. Juana Carter, FRANCIS BENDING SHED WORKER
[2019-08-16 15:31] VITALS: BP 101/71; PULSE 82; RESP 18; TEMP 35; O2SAT 96
--- NOTE | 2019-08-16 17:46 | NURSING ---
PT TOOK CAMO BOOTS OFF WHILE IN BED. EXPLAINED TO PT IT WAS DR. PIKE AND THAT THERE SUPPOSE TO HELP PT. PT UNDER STOOD BUT STATED I CANT WEAR THOSE THINGS IN BED AND THE OTHER TOLD ME I DIDN'T HAVE TO WEAR THEM IN BED. REPORTED TO ARRON DIEHL
[2019-08-16] MEDS: Nortriptyline 10 MG Capsule PO (20:46)
[2019-08-16] MEDS: Atorvastatin Calcium 10 MG Tablet PO (20:47)
--- NOTE | 2019-08-16 21:02 | NURSING ---
Pt c/o dark urine states, no burning with urination no odor noted and urine color tea. States has been having dark urine for a few days now. Pt did have a lucero but it was d/c'd 08/12/19. Will make RN aware
[2019-08-17 05:41] VITALS: BP 142/87; PULSE 86
[2019-08-17] MEDS: Pantoprazole Sodium 40 MG Tablet PO (05:41)
[2019-08-17] MEDS: Sertraline 100 MG Tablet 200 MG PO (05:41)
[2019-08-17] MEDS: buPROPion (XL) 300 MG TABLET.XL PO (05:41)
[2019-08-17] MEDS: Metoprolol Tartrate 25 MG Tablet PO (05:41)
[2019-08-17] MEDS: Lisinopril 5 MG Tablet PO (05:41)
[2019-08-17] MEDS: Senna/Docusate Sodium 1 Tablet PO (05:41)
[2019-08-17] MEDS: Tacrolimus Anhydrous 1 MG Capsule PO ×2 (05:42→17:47)
[2019-08-17] MEDS: Alendronate Sodium 70 MG Tablet PO (05:44)
[2019-08-17] MEDS: Enoxaparin 40 MG/0.4 ML Syringe SC (05:45)
[2019-08-17] MEDS: Nystatin Powder 15gm Bottle 1 APPLIC TOPICAL ×2 (05:46→17:47)
[2019-08-17] MEDS: Menthol/Lanolin/Calamine/Znox 113 GM Tube 1 APPLIC TOPICAL ×2 (05:51→22:53)
[2019-08-17] MEDS: Bisacodyl 5 MG Tablet 10 MG PO (05:57)
[2019-08-17] MEDS: Smz/Tmp Ds Tablet 1 TABLET PO (08:25)
[2019-08-17] MEDS: Tamsulosin HCl 0.4 MG Capsule PO ×2 (08:25→17:46)
[2019-08-17] MEDS: Ursodiol 250 MG Tablet PO ×3 (08:25→17:47)
[2019-08-17 09:39] LABS: Vitamin D,25 Hydroxy 61.1 ng/mL (29.95-100.01)
[2019-08-17 09:56] VITALS: PULSE 84; O2SAT 95
--- NOTE | 2019-08-17 10:08 | NURSING ---
Pt wanted CAM boots off to BLE. This nurse told pt that he is suppose to be wearing CAM boots at all times per Dr. Pt states that they hurt his feet while he is in bed. Reported to Ciera HELLER.
--- NOTE | 2019-08-17 10:37 | CASEMGMT ---
Social Work Met with patient, and friend for care plan meeting. Discussed patient's progress in therapy. Pis bilateral NWBS, UE ADLs setup, LE ADLs at mod assist, min assist for slideboard transfers, SBA bed mobility, ambulating 135ft with w/c. Pt has declined showers with therapy and not eating meals. Pt is weak and encouraged to eat, but has been drinking ensure. Pt's goal is to return home with and MAY, 4 steps to enter and 12 to 3nd floor with living quarters. Discussed stairs as a barrier and offered to provide resources for ramp, and suggested 1st floor set up. Pt states MAY lives on 1st floor and that would not be ideal. Explained insurance update 08/22 and continued stay is not guaranteed. Inquired about alternative DC plan or interventions if had to DC home still needing assistance. Explained private duty aides, SNF. Pt states he will return home and make it work. Will continue to follow. Juana Carter, SURGICAL TECH [employer]ATION LABORER
--- NOTE | 2019-08-17 11:32 | NURSING ---
Pt has both CAM boots on at this time and is in therapy.
[2019-08-17] MEDS: Tuberculin,Purif.prot.deriv. 50 TU/ML Vial 5 ML ID (12:13)
[2019-08-17] MEDS: BACITRACIN 15 GM Tube 1 APPLIC TOPICAL ×2 (12:16→23:05)
--- NOTE | 2019-08-17 14:20 | NURSING ---
Pt does not have CAM boots on at this time. Pt reminded that he is to be wearing them at all times per Dr. Pt stated he does not want them on at this time. Reported to Ciera HELLER.
[2019-08-17 16:00] VITALS: BP 124/61; PULSE 92; RESP 18; TEMP 36.6; O2SAT 93
[2019-08-17] MEDS: oxyCODONE 5 MG Tablet 10 MG PO ×2 (16:37→22:59)
[2019-08-17] MEDS: Atorvastatin Calcium 10 MG Tablet PO (22:53)
[2019-08-17] MEDS: Nortriptyline 10 MG Capsule PO (22:54)
[2019-08-17] MEDS: MELATONIN 3 MG TABLET PO (22:59)
[2019-08-18] MEDS: oxyCODONE 5 MG Tablet 10 MG PO ×5 (03:33→20:22)
[2019-08-18] MEDS: Tacrolimus Anhydrous 1 MG Capsule PO ×2 (04:41→17:28)
[2019-08-18] MEDS: buPROPion (XL) 300 MG TABLET.XL PO (04:42)
[2019-08-18] MEDS: Sertraline 100 MG Tablet 200 MG PO (04:43)
[2019-08-18] MEDS: Pantoprazole Sodium 40 MG Tablet PO (04:44)
[2019-08-18] MEDS: Acetaminophen 500 MG Tablet 1000 MG PO ×2 (04:44→10:55)
[2019-08-18] MEDS: Lisinopril 5 MG Tablet PO (04:44)
[2019-08-18 04:45] VITALS: BP 118/96; PULSE 87
[2019-08-18] MEDS: Metoprolol Tartrate 25 MG Tablet PO (04:45)
[2019-08-18] MEDS: Menthol/Lanolin/Calamine/Znox 113 GM Tube 1 APPLIC TOPICAL ×2 (04:52→20:24)
[2019-08-18] MEDS: Enoxaparin 40 MG/0.4 ML Syringe SC (04:53)
[2019-08-18] MEDS: Nystatin Powder 15gm Bottle 1 APPLIC TOPICAL ×2 (04:55→17:17)
[2019-08-18] MEDS: Ursodiol 250 MG Tablet PO ×3 (07:39→17:17)
[2019-08-18] MEDS: Smz/Tmp Ds Tablet 1 TABLET PO (07:39)
[2019-08-18] MEDS: Tamsulosin HCl 0.4 MG Capsule PO ×2 (07:39→17:16)
[2019-08-18 15:39] VITALS: BP 116/86; PULSE 80; RESP 18; TEMP 36.2; O2SAT 95
--- NOTE | 2019-08-18 16:18 | NURSING ---
Pt refused scheduled 1400 Bacitracin ointment application to area near umbilicus. Pt stated that he has had that area for years due to picking and does not want the dressing changed at this time. Ciera HELLER made aware.
[2019-08-18] MEDS: Atorvastatin Calcium 10 MG Tablet PO (20:26)
[2019-08-18] MEDS: Nortriptyline 10 MG Capsule PO (20:27)
[2019-08-18] MEDS: MELATONIN 3 MG TABLET PO (21:07)
[2019-08-19] MEDS: Acetaminophen 500 MG Tablet 1000 MG PO ×2 (02:22→15:04)
[2019-08-19 05:13] VITALS: BP 132/74; PULSE 75; RESP 18; TEMP 36.4; O2SAT 94
[2019-08-19 05:19] VITALS: BP 132/74; PULSE 75
[2019-08-19] MEDS: Menthol/Lanolin/Calamine/Znox 113 GM Tube 1 APPLIC TOPICAL ×2 (05:19→21:51)
[2019-08-19] MEDS: Nystatin Powder 15gm Bottle 1 APPLIC TOPICAL ×2 (05:19→17:39)
[2019-08-19] MEDS: Metoprolol Tartrate 25 MG Tablet PO (05:19)
[2019-08-19] MEDS: buPROPion (XL) 300 MG TABLET.XL PO (05:20)
[2019-08-19] MEDS: Sertraline 100 MG Tablet 200 MG PO (05:21)
[2019-08-19] MEDS: Pantoprazole Sodium 40 MG Tablet PO (05:21)
[2019-08-19] MEDS: Lisinopril 5 MG Tablet PO (05:22)
[2019-08-19] MEDS: Enoxaparin 40 MG/0.4 ML Syringe SC (05:23)
[2019-08-19] MEDS: Tacrolimus Anhydrous 1 MG Capsule PO ×2 (05:25→17:42)
[2019-08-19] MEDS: Tamsulosin HCl 0.4 MG Capsule PO ×2 (08:43→17:40)
[2019-08-19] MEDS: Ursodiol 250 MG Tablet PO ×3 (08:43→17:40)
[2019-08-19] MEDS: oxyCODONE 5 MG Tablet 10 MG PO ×3 (08:45→21:41)
--- NOTE | 2019-08-19 08:47 | NURSING ---
PT REFUSING TO WEAR CAMO BOOTS IN BED. PT STATED I HURT MORE. REMINDED PT THE DRVenancio WANTED HIM TO WEAR AT ALL TIMES. PT STATED I KNOW.
[2019-08-19] MEDS: BACITRACIN 15 GM Tube 1 APPLIC TOPICAL ×2 (13:35→21:48)
[2019-08-19 16:00] VITALS: BP 95/70; PULSE 78; RESP 17; TEMP 36.8; O2SAT 95
[2019-08-19] MEDS: Atorvastatin Calcium 10 MG Tablet PO (21:45)
[2019-08-19] MEDS: Nortriptyline 10 MG Capsule PO (21:45)
[2019-08-19 21:50] VITALS: RESP 16
[2019-08-20] MEDS: Methocarbamol 750 MG Tablet PO ×2 (00:55→15:11)
[2019-08-20] MEDS: oxyCODONE 5 MG Tablet 10 MG PO ×5 (03:59→21:59)
--- NOTE | 2019-08-20 04:10 | NURSING ---
Pt c/o pain in BLE given prn pain and muscle spasms as ordered. Has BLE elevated on pillows during this time refuses to put polar care on or CAM boots. States, I can't feel the cold from the polar care through the acewraps and the CAM boots hurts me even more when they are on. Given prn oxyir rates pain level a 7 out of 10 states, I can't sleep with this pain in my BLE. Circulation and refilled to toes are great warm to touch. ARRON Rivera aware
[2019-08-20] MEDS: Bisacodyl 5 MG Tablet 10 MG PO (06:48)
[2019-08-20] MEDS: Sertraline 100 MG Tablet 200 MG PO (06:49)
[2019-08-20] MEDS: buPROPion (XL) 300 MG TABLET.XL PO (06:49)
[2019-08-20 06:51] VITALS: BP 130/91; PULSE 84
[2019-08-20] MEDS: Pantoprazole Sodium 40 MG Tablet PO (06:51)
[2019-08-20] MEDS: Metoprolol Tartrate 25 MG Tablet PO (06:51)
[2019-08-20] MEDS: Senna/Docusate Sodium 1 Tablet PO (06:51)
[2019-08-20] MEDS: Tacrolimus Anhydrous 1 MG Capsule PO ×2 (06:52→17:44)
[2019-08-20] MEDS: Lisinopril 5 MG Tablet PO (06:52)
[2019-08-20] MEDS: Menthol/Lanolin/Calamine/Znox 113 GM Tube 1 APPLIC TOPICAL (06:54)
[2019-08-20] MEDS: Nystatin Powder 15gm Bottle 1 APPLIC TOPICAL ×2 (06:54→17:43)
[2019-08-20] MEDS: Enoxaparin 40 MG/0.4 ML Syringe SC (06:56)
[2019-08-20] MEDS: Ursodiol 250 MG Tablet PO ×3 (07:54→17:43)
[2019-08-20] MEDS: Tamsulosin HCl 0.4 MG Capsule PO ×2 (07:56→17:43)
--- NOTE | 2019-08-20 13:42 | NURSING ---
Pt appears agitated. Pt thrashing about in bed and throwing his feet in the air. Pt refuses polar care and fracture Aircast boots. Pt states he is in too much pain to wear them. Pt states his pain is a 7/10 and is unbearable. Pt continues to ask for increased pain medication and Benadryl.Pt states he doesn't know what to do and that maybe he should sign him self out and go to the ER because he needs help with this pain. This nurse educated pt on use of ice and the Fracture Aircast boots. This nurse applied bags of ice to bilateral ankles.Pt agreed to try this method vs polar care. Charge nurse notified.
--- NOTE | 2019-08-20 14:50 | NURSING ---
This nurse walked by this pt room and witnessed him throwing his feet in the air and the bags of ice falling off. This nurse then witnessed that this pt apply ice bags back to bilateral ankles in a forceful manner almost like a slamming manner. This nurse then went in to ask this pt if everything was ok and he said I am just in so much pain I don't know what to do. Charge nurse notified.
[2019-08-20] MEDS: Acetaminophen 500 MG Tablet 1000 MG PO ×2 (15:05→21:06)
[2019-08-20] MEDS: DiphenhydrAMINE 25 MG Capsule 50 MG PO (15:07)
[2019-08-20 15:54] VITALS: BP 133/91; PULSE 78; RESP 16; TEMP 36.6; O2SAT 94
[2019-08-20] MEDS: Nortriptyline 10 MG Capsule PO (21:04)
[2019-08-20] MEDS: Atorvastatin Calcium 10 MG Tablet PO (21:06)
[2019-08-21] MEDS: Methocarbamol 750 MG Tablet PO ×4 (00:04→22:48)
[2019-08-21] MEDS: MELATONIN 3 MG TABLET PO ×2 (00:04→22:36)
[2019-08-21 03:18] VITALS: BP 138/100; PULSE 94; RESP 18; O2SAT 96
[2019-08-21] MEDS: oxyCODONE 5 MG Tablet 10 MG PO ×5 (03:19→22:36)
[2019-08-21] MEDS: Sertraline 100 MG Tablet 200 MG PO (05:14)
[2019-08-21] MEDS: Enoxaparin 40 MG/0.4 ML Syringe SC (05:14)
[2019-08-21] MEDS: Lisinopril 5 MG Tablet PO ×2 (05:15→05:17)
[2019-08-21] MEDS: buPROPion (XL) 300 MG TABLET.XL PO (05:15)
[2019-08-21 05:17] VITALS: BP 138/60; PULSE 78
[2019-08-21] MEDS: Pantoprazole Sodium 40 MG Tablet PO (05:17)
[2019-08-21] MEDS: Metoprolol Tartrate 25 MG Tablet PO (05:17)
[2019-08-21] MEDS: Senna/Docusate Sodium 1 Tablet PO (05:18)
[2019-08-21] MEDS: Tacrolimus Anhydrous 1 MG Capsule PO ×2 (05:25→17:18)
[2019-08-21] MEDS: Ursodiol 250 MG Tablet PO ×3 (08:41→17:17)
[2019-08-21] MEDS: Tamsulosin HCl 0.4 MG Capsule PO ×2 (08:42→17:16)
[2019-08-21] MEDS: Acetaminophen 500 MG Tablet 1000 MG PO ×2 (09:16→18:24)
[2019-08-21] MEDS: DiphenhydrAMINE 25 MG Capsule 50 MG PO ×2 (09:17→18:24)
[2019-08-21 16:00] VITALS: BP 121/74; PULSE 81; RESP 17; TEMP 36.6; O2SAT 95
--- NOTE | 2019-08-21 16:44 | NURSING ---
Pt has been calmer today, however he continues to ask for pain medication continuously and states he is in extreme pain. After receiving medication, pt would go to sleep for a few hours.Pt continues to refuse Aircast boots but did wear them for 10 minutes today. Pt did come out of room today and wheel himself around in his wheelchair.
[2019-08-21] MEDS: Nystatin Powder 15gm Bottle 1 APPLIC TOPICAL (17:17)
[2019-08-21] MEDS: Atorvastatin Calcium 10 MG Tablet PO (20:52)
[2019-08-21] MEDS: Nortriptyline 10 MG Capsule PO (20:53)
[2019-08-21] MEDS: BACITRACIN 15 GM Tube 1 APPLIC TOPICAL (20:57)
[2019-08-21 23:08] VITALS: RESP 20
[2019-08-22] MEDS: oxyCODONE 5 MG Tablet 10 MG PO ×5 (02:47→21:57)
[2019-08-22] MEDS: Pantoprazole Sodium 40 MG Tablet PO (05:31)
[2019-08-22] MEDS: Senna/Docusate Sodium 1 Tablet PO (05:31)
[2019-08-22] MEDS: buPROPion (XL) 300 MG TABLET.XL PO (05:31)
[2019-08-22 05:32] VITALS: BP 105/86; PULSE 82
[2019-08-22] MEDS: Sertraline 100 MG Tablet 200 MG PO (05:32)
[2019-08-22] MEDS: Metoprolol Tartrate 25 MG Tablet PO (05:32)
[2019-08-22] MEDS: Enoxaparin 40 MG/0.4 ML Syringe SC (05:34)
[2019-08-22] MEDS: Methocarbamol 750 MG Tablet PO ×3 (05:36→23:26)
[2019-08-22] MEDS: Tacrolimus Anhydrous 1 MG Capsule PO ×2 (05:37→17:37)
[2019-08-22] MEDS: Tamsulosin HCl 0.4 MG Capsule PO ×2 (08:56→17:36)
[2019-08-22] MEDS: Ursodiol 250 MG Tablet PO ×3 (08:56→17:36)
[2019-08-22] MEDS: Smz/Tmp Ds Tablet 1 TABLET PO (08:56)
[2019-08-22 09:45] VITALS: PULSE 61; RESP 18; O2SAT 93
[2019-08-22] MEDS: Acetaminophen 500 MG Tablet 1000 MG PO (13:20)
--- NOTE | 2019-08-22 14:21 | NURSING ---
therapy requesting order if possible for heel wt bearing on one foot atleast, message left for DR Magdaleno.
--- NOTE | 2019-08-22 15:25 | MDS.RN ---
Information for the mds was obtained from review of the clinical record, interview of resident, staff, and direct observation of resident's care.
[2019-08-22 15:46] VITALS: BP 112/71; PULSE 79; RESP 18; TEMP 36.6; O2SAT 93
--- NOTE | 2019-08-22 16:47 | NURSING ---
Dr Magdaleno returned call, new orders for PWB LT foot and cont NWB RT foot. OK to wash legs wkly and apply lotion & wrap with ACES
--- NOTE | 2019-08-22 17:59 | NURSING ---
PT REFUSED THIS NURSE TO APPLY BACITRACIN TO ABDOMINAL PER ORDERS. REPORTED TO ARRON DUBOIS
--- NOTE | 2019-08-22 18:34 | NURSING ---
PT HAS REFUSED CAM BOOTS ALL DAY.
[2019-08-22] MEDS: Atorvastatin Calcium 10 MG Tablet PO (21:51)
[2019-08-22] MEDS: Nortriptyline 10 MG Capsule PO (21:51)
[2019-08-23] MEDS: Acetaminophen 500 MG Tablet 1000 MG PO ×3 (01:45→23:41)
[2019-08-23] MEDS: oxyCODONE 5 MG Tablet 10 MG PO ×5 (02:18→21:45)
[2019-08-23] MEDS: Enoxaparin 40 MG/0.4 ML Syringe SC (06:45)
[2019-08-23] MEDS: buPROPion (XL) 300 MG TABLET.XL PO (06:47)
[2019-08-23] MEDS: Sertraline 100 MG Tablet 200 MG PO (06:47)
[2019-08-23 06:49] VITALS: BP 146/67; PULSE 88
[2019-08-23] MEDS: Lisinopril 5 MG Tablet PO (06:49)
[2019-08-23] MEDS: Metoprolol Tartrate 25 MG Tablet PO (06:49)
[2019-08-23] MEDS: Senna/Docusate Sodium 1 Tablet PO (06:49)
[2019-08-23] MEDS: Tacrolimus Anhydrous 1 MG Capsule PO ×2 (06:49→17:15)
[2019-08-23] MEDS: Pantoprazole Sodium 40 MG Tablet PO (06:50)
[2019-08-23] MEDS: Ursodiol 250 MG Tablet PO ×3 (08:35→17:15)
[2019-08-23] MEDS: Tamsulosin HCl 0.4 MG Capsule PO ×2 (08:35→17:15)
[2019-08-23] MEDS: Methocarbamol 750 MG Tablet PO ×3 (11:52→23:41)
[2019-08-23 15:37] VITALS: BP 108/66; PULSE 73; RESP 18; TEMP 36.6; O2SAT 93
--- NOTE | 2019-08-23 15:44 | CASEMGMT ---
Social Work Spoke with patient to discuss DC plans. Pt requesting to DC home 08/26 with [facility]. Pt to check with if he needs BSC and w/c both drop arm to use slideboard. Will refer to [facility] for DME needs. Plan: DC home with 08/26 with Outpatient PT/OT and DME Juana Carter, DIRECTOR CLINICAL OPERATIONS FLOOR LAYER HELPER
--- NOTE | 2019-08-23 20:16 | PCM.DC ---
- Discharge Diagnoses Current Active Problems: Current Active and Chronic Problems Debility (Acute) Hypertension (Chronic) GERD (gastroesophageal reflux disease) (Chronic) BPH (benign prostatic hyperplasia) (Chronic) Insomnia (Chronic) Urinary retention (Acute) You will use the following diet at home:: No restrictions, Regular Your food should be the consistency of: Regular Your liquids should be the consistency of: Regular/Thin Discharge Activity: Return to Normal Activity, May Shower, Use Walker Weight Bearing Status: Partial weight bearing - Left lower extremity., No weight bearing - Right lower extremity. Call your doctor if you observe: Fever of 101 or Higher, Inability to urinate, Inability to have a bowel movement, Shortness of breath, Chest pain, Uncontrolled pain Allergies/Adverse Reactions: Allergies hydrocodone bitartrate [From Vicodin] Allergy (Verified 08/05/19 13:06) Hives latex Allergy (Verified 08/05/19 17:17) It causes cracks in my hands vancomycin Allergy (Verified 08/05/19 17:17) Itching/turn red morphine Adverse Reaction (Verified 08/05/19 17:17) I feel dehydrated Medications to take at Discharge Metoprolol Tartrate [Lopressor (beta valerio)] 25 mg PO DAILY 01/24/16 Pantoprazole Sodium [Protonix] 40 mg PO DAILY 01/24/16 Smz/Tmp Ds [Bactrim Ds] 1 tablet PO MOWEFR 01/24/16 Lisinopril [Zestril] 5 mg PO DAILY 04/27/17 Bupropion HCl [Bupropion Xl] 300 mg PO DAILY 08/05/19 Cholecalciferol (VIT D3) [Vitamin D3] 500 unit PO DAILY 08/05/19 Nortriptyline HCl 10 mg PO QHS 08/05/19 Sertraline HCl 200 mg PO DAILY 08/05/19 Tacrolimus 0.5 mg PO BID 08/05/19 Tacrolimus 1 mg PO BID 08/05/19 Ursodiol 300 mg PO TID 08/05/19 Alendronate Sodium 70 mg PO WE 08/08/19 Simvastatin 20 mg PO QHS 08/08/19 Melatonin 3 mg PO QHS PRN PRN tab 08/09/19 Methocarbamol 750 mg PO 4X/DAY PRN PRN tab 08/09/19 Acetaminophen [Tylenol] 1,000 mg PO Q6H PRN PRN tablet 08/23/19 Betamethasone Valerate [Valisone 0.1% Cream (BKC)] 1 applic TOPICAL DAILY@0600 tube 08/23/19 DiphenhydrAMINE [Benadryl] 50 mg PO Q6H PRN PRN capsule 08/23/19 Menthol/Lanolin/Calamine/Znox [Calmoseptine Ointment] 1 applic TOPICAL 0600,2200 tube 08/23/19 Nystatin Powder [Mycostatin Powder] 1 applic TOPICAL 0600,1800 bottle 08/23/19 Oxycodone [Oxyir] 10 mg PO Q4H PRN PRN 7 Days #30 tab 08/23/19 Polyethylene Glycol 3350 [Miralax] 17 gm PO DAILY #30 packet 08/23/19 Potassium Chloride [K-Dur] 10 meq PO DAILYCM #30 tab 08/23/19 Senna/Docusate Sodium [Senokot-S] 1 tab PO BID #60 tab 08/23/19 Tamsulosin HCl [Flomax] 0.4 mg PO BID@0830,1730 #60 cap 08/23/19 Ursodiol [Colleen] 250 mg PO TIDCM tablet 08/23/19 The following prescriptions were given: Tamsulosin HCl [Flomax] 0.4 mg PO BID@0830,1730 #60 cap Transmission Status[facility] Potassium Chloride [K-Dur] 10 meq PO DAILYCM #30 tab Transmission Status: [facility] Polyethylene Glycol 3350 [Miralax] 17 gm PO DAILY #30 packet Transmission Status: [facility] Oxycodone [Oxyir] 10 mg PO Q4H PRN PRN 7 Days #30 tab PRN Reason: Pain Score 4-5/10 Transmission Status: [facility] Senna/Docusate Sodium [Senokot-S] 1 tab PO BID #60 tab Transmission Status: [facility] Primary Care Physician: Raphael Day MD [Primary Care Provider] - Please follow up with your Primary Care Physician in: 1 week. Test Results: Test results from this visit will be discussed in further detail at your follow-up appointment, if applicable. Please Follow Up With: Raphael Day MD Please Follow Up With: Tino Gallegos DPM When: 2 weeks. Please Follow Up With: Dr. Joel Vargas When: Psychologist Please Follow Up With: Dr. Anabelle Zavaleta When: Psychiatist Proposed Discharge Date: 08/26/19
--- NOTE | 2019-08-23 20:18 | PCM.DC.SUM ---
Discharge Date and Diagnosis - Problem List Patient Problems: Active and Suspected Problems Debility (Acute) Urinary retention (Acute) Date of Admission: 08/05/19 Date of Discharge: 08/26/19 - Primary Discharge Diagnosis Active and Suspected Problems Debility (Acute) Urinary retention (Acute) - Secondary Discharge Diagnosis Chronic Problems Liver transplant recipient (Chronic) 2014 Depression (Chronic) Inanition (Chronic) Diarrhea (Chronic) Psoriasis (Chronic) Hypertension (Chronic) GERD (gastroesophageal reflux disease) (Chronic) BPH (benign prostatic hyperplasia) (Chronic) Insomnia (Chronic) Alcoholic cirrhosis of liver (Chronic) S/P liver transplant Tobacco use disorder (Chronic) Chronic hepatitis C (Chronic) has been treated and he has also had a liver transplant Hospital Course and Treatment Imaging Results: 08/09/19 14:44 Diet: Regular Diet Food consistency:: Regular Liquid Consistency:: Regular/Thin Is pt able to select menu?: Yes Operations: None Procedures: None Summary of Care Provided: The patient is a 54 year old Male with below past medical history hospitalized for left 5th metatarsal fracture, severe right ankle sprain, right navicular bone fracture, complicated by urinary retention, admitted to TCU with debility, here for rehabilitation, strengthening, prior to discharge home with . Tamsulosin doubled to 0.4MG BID. Potassium chloride added for hypokalemia, can most likely discontinue once patient home. Discharge home with , outpatient PT/OT, Durable Medical Equipment. Patient Problems: Active and Suspected Problems Debility (Acute) Urinary retention (Acute) - Physical Exam Vitals/I&O's: Vital Signs Temp Pulse Resp BP Pulse Ox 97.8 F 73 18 108/66 93 08/23/19 15:37 08/23/19 15:37 08/23/19 15:37 08/23/19 15:37 08/23/19 15:37 Oxygen Delivery Method Room Air Weight: 96.6 kg Body Mass Index (BMI) 34.3 Intake and Output for Last 24 Hours 08/21/19 08/22/19 08/23/19 23:59 23:59 23:59 Intake Total 520 / 520 520 / 520 240 / 240 Output Total 300 / 300 950 / 950 Balance 220 / 220 -430 / -430 240 / 240 Current Medications Acetaminophen (Tylenol) 1,000 mg PO Q6H PRN PRN PRN Reason: Pain Score 1-3/10 Last Admin: 12/10/19 14:28 Dose: 1,000 mg Documented by: Alendronate Sodium (Fosamax) 70 mg PO WE [facility] Last Admin: 08/17/19 05:44 Dose: 70 mg Documented by: Atorvastatin Calcium (Lipitor) 10 mg PO QHS [facility] Last Admin: 08/22/19 21:51 Dose: 10 mg Documented by: Betamethasone Valerate (Valisone 0.1% Cream (Bkc)) 1 applic TOPICAL DAILY@0600 [facility]; Protocol Last Admin: 08/23/19 06:52 Dose: 1 applicatio Documented by: Bisacodyl (Dulcolax) 10 mg PO DAILY PRN PRN Reason: Constipation Last Admin: 08/20/19 06:48 Dose: 10 mg Documented by: Bupropion HCl (Wellbutrin Xl) 300 mg PO DAILY [facility] Last Admin: 08/23/19 06:47 Dose: 300 mg Documented by: Calamine/Phenol (Calmoseptine Ointment) 1 applic TOPICAL 0600,2200 [facility]; Protocol Last Admin: 08/23/19 06:51 Dose: Not Given Documented by: Cholecalciferol (Vitamin D) 500 unit PO DAILY [facility] Last Admin: 08/23/19 06:47 Dose: 500 unit Documented by: Diphenhydramine HCl (Benadryl) 50 mg PO Q6H PRN PRN PRN Reason: ITCHING Last Admin: 08/21/19 18:24 Dose: 50 mg Documented by: Enoxaparin Sodium (Lovenox) 40 mg SC DAILY@0600 [facility] Last Admin: 08/23/19 06:45 Dose: 40 mg Documented by: Lisinopril (Zestril) 5 mg PO DAILY [facility] Last Admin: 08/23/19 06:49 Dose: 5 mg Documented by: Melatonin (Melatonin) 3 mg PO QHS PRN PRN PRN Reason: INSOMNIA Last Admin: 08/21/19 22:36 Dose: 3 mg Documented by: Methocarbamol (Methocarbamol) 750 mg PO 4X/DAY PRN PRN PRN Reason: SPASMS Last Admin: 08/23/19 19:04 Dose: 750 mg Documented by: Metoprolol Tartrate (Lopressor (Beta Dm)) 25 mg PO DAILY [facility] Last Admin: 08/23/19 06:49 Dose: 25 mg Documented by: Nortriptyline HCl (Pamelor) 10 mg PO QHS [facility] Last Admin: 08/22/19 21:51 Dose: 10 mg Documented by: Nutritional Formula (Lactose Free) (Ensure Enlive) 120 ml PO 4X/DAY [facility] Last Admin: 08/23/19 17:16 Dose: 120 ml Documented by: Nystatin (Mycostatin Powder) 1 applic TOPICAL 0600,1800 [facility]; Protocol Last Admin: 08/23/19 17:13 Dose: Not Given Documented by: Ondansetron HCl (Zofran Odt) 8 mg PO Q8H PRN PRN PRN Reason: NAUSEA Oxycodone HCl (Oxyir) 10 mg PO Q4H PRN PRN PRN Reason: Pain Score 4-1010 Last Admin: 08/23/19 17:15 Dose: 10 mg Documented by: Pantoprazole Sodium (Protonix) 40 mg PO DAILY [facility] Last Admin: 08/23/19 06:50 Dose: 40 mg Documented by: Polyethylene Glycol (Miralax) 17 gm PO DAILY [facility] Last Admin: 08/23/19 06:51 Dose: Not Given Documented by: Potassium Chloride (K-Dur) 10 meq PO DAILYCM [facility] Last Admin: 08/23/19 08:35 Dose: 10 meq Documented by: Senna/Docusate Sodium (Senokot-S, Diane-Colace) 1 tablet PO BID [facility] Last Admin: 08/23/19 17:16 Dose: Not Given Documented by: Sertraline HCl (Zoloft) 200 mg PO DAILY [facility] Last Admin: 08/23/19 06:47 Dose: 200 mg Documented by: Tacrolimus (Prograf) 0.5 mg PO BID [facility] Last Admin: 08/23/19 17:16 Dose: 0.5 mg Documented by: Tacrolimus (Prograf) 1 mg PO BID [facility] Last Admin: 08/23/19 17:15 Dose: 1 mg Documented by: Tamsulosin HCl (Flomax) 0.4 mg PO BID@0830,1730 [facility] Last Admin: 08/23/19 17:15 Dose: 0.4 mg Documented by: Trimethoprim/Sulfamethoxazole (Bactrim Ds) 1 tablet PO MOWEFR [facility] Last Admin: 08/22/19 08:56 Dose: 1 tablet Documented by: Ursodiol (Colleen) 250 mg PO TIDCM [facility] Last Admin: 08/23/19 17:15 Dose: 250 mg Documented by: Discharge Diet: No Restrictions Discharge Activity: Return to Normal Activity, May Shower, Use Walker Weight Bearing Status: Partial weight bearing - Left lower extremity., No weight bearing - Right lower extremity. Call your doctor if you observe: Fever of 101 or Higher, Inability to urinate, Inability to have a bowel movement, Shortness of breath, Chest pain, Uncontrolled pain Home Medications: Medications to take at Discharge Metoprolol Tartrate [Lopressor (beta dm)] 25 mg PO DAILY 01/24/16 Pantoprazole Sodium [Protonix] 40 mg PO DAILY 01/24/16 Smz/Tmp Ds [Bactrim Ds] 1 tablet PO MOWEFR 01/24/16 Lisinopril [Zestril] 5 mg PO DAILY 04/27/17 Bupropion HCl [Bupropion Xl] 300 mg PO DAILY 08/05/19 Cholecalciferol (VIT D3) [Vitamin D3] 500 unit PO DAILY 08/05/19 Nortriptyline HCl 10 mg PO QHS 08/05/19 Sertraline HCl 200 mg PO DAILY 08/05/19 Tacrolimus 0.5 mg PO BID 08/05/19 Tacrolimus 1 mg PO BID 08/05/19 Ursodiol 300 mg PO TID 08/05/19 Alendronate Sodium 70 mg PO WE 08/08/19 Simvastatin 20 mg PO QHS 08/08/19 Melatonin 3 mg PO QHS PRN PRN tab 08/09/19 Methocarbamol 750 mg PO 4X/DAY PRN PRN tab 08/09/19 Acetaminophen [Tylenol] 1,000 mg PO Q6H PRN PRN tablet 08/23/19 Betamethasone Valerate [Valisone 0.1% Cream (BKC)] 1 applic TOPICAL DAILY@0600 tube 08/23/19 DiphenhydrAMINE [Benadryl] 50 mg PO Q6H PRN PRN capsule 08/23/19 Menthol/Lanolin/Calamine/Znox [Calmoseptine Ointment] 1 applic TOPICAL 0600,2200 tube 08/23/19 Nystatin Powder [Mycostatin Powder] 1 applic TOPICAL 0600,1800 bottle 08/23/19 Oxycodone [Oxyir] 10 mg PO Q4H PRN PRN 7 Days #30 tab 08/23/19 Polyethylene Glycol 3350 [Miralax] 17 gm PO DAILY #30 packet 08/23/19 Potassium Chloride [K-Dur] 10 meq PO DAILYCM #30 tab 08/23/19 Senna/Docusate Sodium [Senokot-S] 1 tab PO BID #60 tab 08/23/19 Tamsulosin HCl [Flomax] 0.4 mg PO BID@0830,1730 #60 cap 08/23/19 Ursodiol [Colleen] 250 mg PO TIDCM tablet 08/23/19 Following Prescrptions Were Given to Patient: Tamsulosin HCl [Flomax] 0.4 mg PO BID@0830,1730 #60 cap Transmission Status: Pending to [facility] 181 Potassium Chloride [K-Dur] 10 meq PO DAILYCM #30 tab Transmission Status: Pending to [facility] 181 Polyethylene Glycol 3350 [Miralax] 17 gm PO DAILY #30 packet Transmission Status: Pending to [facility] 181 Oxycodone [Oxyir] 10 mg PO Q4H PRN PRN 7 Days #30 tab PRN Reason: Pain Score 4-5/10 Transmission Status: Sent to [facility] 181 Senna/Docusate Sodium [Senokot-S] 1 tab PO BID #60 tab Transmission Status: Pending to [facility]12 Primary Care Physician: Raphael Day MD [Primary Care Provider] - Please follow up with your Primary Care Physician in: 1 week. Please Follow Up With: Raphael Day MD Please Follow Up With: Tino Gallegos DPM When: 2 weeks. Please Follow Up With: Dr. Joel Vargas When: Psychologist Please Follow Up With: Dr. Anabelle Zavaleta When: Psychiatist Disposition: Home Minutes spent on discharge:: 30 Patient Condition:: Stable Medical Necessity - Tobacco Use Smoking Status: Former smoker Tobacco Use: Cigarettes Meaningful Use Info Meaningful Use Diagnoses (Choose all that apply): None applicable
[2019-08-23] MEDS: Atorvastatin Calcium 10 MG Tablet PO (21:45)
[2019-08-23] MEDS: MELATONIN 3 MG TABLET PO (21:45)
[2019-08-23] MEDS: Nortriptyline 10 MG Capsule PO (21:46)
[2019-08-24] MEDS: Polyethylene Glycol 3350 17 GM PACKET PO (03:02)
[2019-08-24] MEDS: oxyCODONE 5 MG Tablet 10 MG PO ×4 (03:10→20:20)
[2019-08-24] MEDS: buPROPion (XL) 300 MG TABLET.XL PO (04:30)
[2019-08-24] MEDS: Pantoprazole Sodium 40 MG Tablet PO (04:30)
[2019-08-24] MEDS: Senna/Docusate Sodium 1 Tablet PO ×3 (04:30→16:50)
[2019-08-24 04:31] VITALS: BP 141/86; PULSE 75
[2019-08-24] MEDS: Alendronate Sodium 70 MG Tablet PO (04:31)
[2019-08-24] MEDS: Tacrolimus Anhydrous 1 MG Capsule PO ×2 (04:31→17:13)
[2019-08-24] MEDS: Lisinopril 5 MG Tablet PO (04:31)
[2019-08-24] MEDS: Sertraline 100 MG Tablet 200 MG PO (04:31)
[2019-08-24] MEDS: Enoxaparin 40 MG/0.4 ML Syringe SC (04:31)
[2019-08-24] MEDS: Metoprolol Tartrate 25 MG Tablet PO (04:31)
[2019-08-24] MEDS: Acetaminophen 500 MG Tablet 1000 MG PO ×3 (06:51→20:20)
[2019-08-24] MEDS: Methocarbamol 750 MG Tablet PO ×2 (06:51→22:52)
--- NOTE | 2019-08-24 06:52 | NURSING ---
pt called out to nurses' station requesting any available medications. RN entered room promptly with Tylenol. Pt noted to be lying on right side, eyes closed. No distress noted, no facial grimacing. Pt legs noted not to be moving. Pain mediation provided per request. Will continue to monitor
[2019-08-24] MEDS: Ursodiol 250 MG Tablet PO ×3 (07:37→16:50)
[2019-08-24] MEDS: Tamsulosin HCl 0.4 MG Capsule PO ×2 (07:37→16:51)
[2019-08-24] MEDS: Smz/Tmp Ds Tablet 1 TABLET PO (07:37)
--- NOTE | 2019-08-24 11:48 | NURSING ---
R' RESTING IN BED. R' REFUSING TO WEAR CAM BOOTS OR USE ICE. DENIES PAIN AT THIS TIME. RESTING ON LEFT SIDE IN BED, BED LOWERED. DENIES NEEDS AT THIS TIME. FLUIDS ENCOURAGED.
[2019-08-24 15:14] VITALS: BP 108/71; PULSE 79; RESP 22; TEMP 36.4; O2SAT 96
[2019-08-24] MEDS: Atorvastatin Calcium 10 MG Tablet PO (20:21)
[2019-08-24] MEDS: Menthol/Lanolin/Calamine/Znox 113 GM Tube 1 APPLIC TOPICAL (20:21)
[2019-08-24] MEDS: Nortriptyline 10 MG Capsule PO (20:21)
[2019-08-24] MEDS: Bisacodyl 5 MG Tablet 10 MG PO (20:24)
[2019-08-24] MEDS: MELATONIN 3 MG TABLET PO (22:52)
[2019-08-25] MEDS: Polyethylene Glycol 3350 17 GM PACKET PO (02:43)
[2019-08-25] MEDS: Acetaminophen 500 MG Tablet 1000 MG PO ×3 (02:48→23:11)
[2019-08-25] MEDS: oxyCODONE 5 MG Tablet 10 MG PO ×5 (02:48→21:19)
[2019-08-25 06:20] VITALS: BP 133/88; PULSE 90
[2019-08-25] MEDS: Pantoprazole Sodium 40 MG Tablet PO (06:20)
[2019-08-25] MEDS: Metoprolol Tartrate 25 MG Tablet PO (06:20)
[2019-08-25] MEDS: Sertraline 100 MG Tablet 200 MG PO (06:21)
[2019-08-25] MEDS: Tacrolimus Anhydrous 1 MG Capsule PO ×2 (06:21→18:21)
[2019-08-25] MEDS: Lisinopril 5 MG Tablet PO (06:22)
[2019-08-25] MEDS: buPROPion (XL) 300 MG TABLET.XL PO (06:22)
[2019-08-25] MEDS: Enoxaparin 40 MG/0.4 ML Syringe SC (06:23)
[2019-08-25] MEDS: Ursodiol 250 MG Tablet PO ×3 (07:49→18:23)
[2019-08-25] MEDS: Tamsulosin HCl 0.4 MG Capsule PO ×2 (07:50→18:23)
--- NOTE | 2019-08-25 09:02 | NURSING ---
Pt states he cannot complete therapy today because his pain medication is not working and it is too painful. Pt refuses to use ice and Aircast boots.
[2019-08-25 16:00] VITALS: BP 132/90; PULSE 68; RESP 17; TEMP 36.6; O2SAT 98
[2019-08-25] MEDS: Nystatin Powder 15gm Bottle 1 APPLIC TOPICAL (18:22)
[2019-08-25] MEDS: MELATONIN 3 MG TABLET PO (21:18)
[2019-08-25] MEDS: Atorvastatin Calcium 10 MG Tablet PO (21:19)
[2019-08-25] MEDS: Nortriptyline 10 MG Capsule PO (21:20)
[2019-08-25] MEDS: Methocarbamol 750 MG Tablet PO (21:23)
[2019-08-25] MEDS: Menthol/Lanolin/Calamine/Znox 113 GM Tube 1 APPLIC TOPICAL (21:24)
[2019-08-26] MEDS: Sertraline 100 MG Tablet 200 MG PO (06:35)
[2019-08-26] MEDS: buPROPion (XL) 300 MG TABLET.XL PO (06:36)
[2019-08-26] MEDS: Senna/Docusate Sodium 1 Tablet PO (06:37)
[2019-08-26] MEDS: Lisinopril 5 MG Tablet PO (06:37)
[2019-08-26] MEDS: Pantoprazole Sodium 40 MG Tablet PO (06:37)
[2019-08-26] MEDS: Tacrolimus Anhydrous 1 MG Capsule PO (06:37)
[2019-08-26] MEDS: Nystatin Powder 15gm Bottle 1 APPLIC TOPICAL (06:38)
[2019-08-26] MEDS: oxyCODONE 5 MG Tablet 10 MG PO ×2 (06:38→12:14)
[2019-08-26] MEDS: Enoxaparin 40 MG/0.4 ML Syringe SC (06:39)
[2019-08-26 06:42] VITALS: BP 114/80; PULSE 89
[2019-08-26] MEDS: Metoprolol Tartrate 25 MG Tablet PO (06:42)
[2019-08-26] MEDS: Menthol/Lanolin/Calamine/Znox 113 GM Tube 1 APPLIC TOPICAL (06:45)
[2019-08-26] MEDS: Ursodiol 250 MG Tablet PO (08:38)
[2019-08-26] MEDS: Smz/Tmp Ds Tablet 1 TABLET PO (08:38)
[2019-08-26] MEDS: Tamsulosin HCl 0.4 MG Capsule PO (08:39)
[2019-08-26 08:45] VITALS: PULSE 86; RESP 18; O2SAT 94
[2019-08-26 08:59] VITALS: BP 123/81; PULSE 84; RESP 16; TEMP 36.3; O2SAT 95
--- NOTE | 2019-08-26 09:01 | NURSING ---
PT REFUSED THIS NURSE TO CHANGED DRESSING ON STOMACH AND REFUSED TO PUT THE CAMO BOOTS ON.
--- NOTE | 2019-08-26 10:19 | NURSING ---
PT SPILLED URINAL IN ROOM AND STATED SOME ONE KNOCKED IT OVER. PT STATED HE STEPPED IN URINE AND RIGHT FOOT GOT WET. THIS NURSE CLEANED AND CHANGED PT DRESSING TO RIGHT FOOT. REPORTED TO ARRON DUBOIS
== END 2019-08-26 13:27 | disposition home or self-care (01) | DRG 560 ==
PROVIDERS: Podiatrist; Admitting Provider Family Medicine Geriatric Medicine; Family Provider Family Medicine; PCP Family Medicine; Referring Provider Family Medicine Geriatric Medicine; Visit Provider Family Medicine Geriatric Medicine
DX: S92.251D Displaced fracture of navicular [scaphoid] of right foot, subsequent encounter for fracture with routine healing (principal); Z94.4 Liver transplant status; S92.355D Nondisplaced fracture of fifth metatarsal bone, left foot, subsequent encounter for fracture with routine healing; S93.401D Sprain of unspecified ligament of right ankle, subsequent encounter; X50.1XXD Overexertion from prolonged static or awkward postures, subsequent encounter; I10 Essential (primary) hypertension; Z23 Encounter for immunization; K21.9 Gastro-esophageal reflux disease without esophagitis; R33.9 Retention of urine, unspecified; B35.4 Tinea corporis; E55.9 Vitamin D deficiency, unspecified; F32.9 Major depressive disorder, single episode, unspecified; E78.5 Hyperlipidemia, unspecified; L40.9 Psoriasis, unspecified; Z87.891 Personal history of nicotine dependence; N40.1 Benign prostatic hyperplasia with lower urinary tract symptoms; R33.8 Other retention of urine
CPT/HCPCS: 36415; 80048; 82306; 82962; 85025; 97110; 97162; 97166; 97530; 97535; 97542; 97802; 90686

== ENCOUNTER 2019-09-22 14:29 | Emergency (ER) | payer OTHER, SELFPAY ==
[2019-08-09 14:31] VITALS: BMI 34.3
[2019-09-22 14:30] VITALS: BP 124/76; PULSE 105; RESP 18; TEMP 36.9; O2SAT 99; BMI 33.8
--- NOTE | 2019-09-22 15:22 | ED.DCSUM_ITS ---
History of Present Illness Chief Complaint: Back Informant: Patient Onset: Yesterday Context: Gradual Onset Timing: Waxes and wanes Current Severity: Mild Maximum Severity: Moderate Narrative: Patient presents with left lower back pain. Patient states pain started yesterday and seemed to worsen today. It is worse with movement. He points to the left posterior hip. He will occasionally have pain shoot on the leg. He denies paresthesias. Patient just got out of rehab and therapy for bilateral broken feet. He supposedly is not supposed be weightbearing at this point but has been walking gingerly. With this altered gait they believe he is irritated his back. He has reportedly had some back problems in the past but never required surgery or injections. He said no fever or chills. He said no new falls or injuries. - Past Medical History (1) BPH (benign prostatic hyperplasia) Status: Chronic (2) Depression Status: Chronic (3) GERD (gastroesophageal reflux disease) Status: Chronic (4) Hypertension Status: Chronic (5) Liver transplant recipient Status: Chronic Comment: 2015 (6) Psoriasis Status: Chronic Past Medical History - Allergies and Home Meds Allergies/Adverse Reactions: Allergies hydrocodone bitartrate [From Vicodin] Allergy (Verified 09/22/19 14:33) Hives latex Allergy (Verified 09/22/19 14:32) It causes cracks in my hands vancomycin Allergy (Verified 09/22/19 14:32) Itching/turn red morphine Adverse Reaction (Verified 09/22/19 14:32) I feel dehydrated Primary Care Physician: Raphael Day MD [Primary Care Provider] - Prior records reviewed: Yes Surgical History: tonsillectomy, - - liver transplant in 2014, he had a shunt in the heart patched......does not know the diagnosis, tracheostomy Lives: Spouse/ Significant Other Smoking Status: Former smoker - Family History Maternal Family History: Reports: COPD, Pulmonary Disease, - - Breast Mass Paternal Family History: Reports: COPD Review of Systems General: Denies: Chills, Fever Eyes: Denies: Visual changes - bilaterally ENT: Denies: Bilateral ear pain Cardiovascular: Denies: Chest pain Respiratory: Denies: Dyspnea, Cough Gastrointestinal: Denies: Abdominal pain, Nausea, Vomiting, Diarrhea Musculoskeletal: Reports: Back pain Skin: Denies: Rash Neurological: Denies: Headache Endocrine: Denies: Polyuria, Polydipsia Allergy: Denies: Uticaria Physical Exam Vital Signs/Narrative: Vital Signs Temp Pulse Resp BP Pulse Ox 09/22/19 14:30 98.5 F 105 H 18 124/76 H 99 Inital Vital Signs reviewed: Yes General: Well nourished, Well developed Head: Normocephalic ENT: Moist mucous membranes Neck: Supple Cardiovascular: Regular rate, Regular rhythm Respiratory: No distress, CTA bilaterally Abdomen: Soft, Nontender Back: - - Reproducible tenderness of the left sciatic notch. No midline lumbar tenderness. Straight leg raise is negative bilaterally. Extremities: Nontender Skin: Normal color, No rash Neurological: Alert, Oriented x3, - - Patient has good strength on testing the lower extremities. He does have chronic paresthesias over the top of his right foot from prior fracture. No new neuro changes. Psychological: Normal affect Diagnostic/Tx/Re-eval - Medical Decision Making She had no recent fall or injury. I do not believe imaging is going to be beneficial. Because of his liver transplant he will be treated with oxycodone. Prescription will be sent to [facility]. He will receive 1 IM injection of Dilaudid here for pain control. I did discuss with him that if this does not control his symptoms he may require steroids. He would prefer to avoid steroids at this point if possible. ED Disposition - Plan for ED Patient: Disposition: Home or Assisted Living Diagnosis: Sciatica Instructions: BACK PAIN w/ SCIATICA Prescriptions: Oxycodone [Oxyir] 5 mg PO Q6H PRN PRN 3 Days #14 tablet PRN Reason: Pain Score 6-10/10 Transmission Status: Sent to [id number] Referrals: Raphael Day MD [Primary Care Provider] - 3-5 Days if not improving
[2019-09-22] MEDS: HYDROmorphone 1 MG/ML Syringe IM (15:32)
[2019-09-22 15:49] VITALS: BP 138/77; PULSE 69; RESP 15; O2SAT 98
== END 2019-09-22 15:50 | disposition home or self-care (01) ==
LOC: ED 15:28
PROVIDERS: Emergency Provider Emergency Medicine; Family Provider Family Medicine; PCP Family Medicine
DX: M54.42 Lumbago with sciatica, left side (principal); F32.9 Major depressive disorder, single episode, unspecified; I10 Essential (primary) hypertension; K21.9 Gastro-esophageal reflux disease without esophagitis; N40.0 Benign prostatic hyperplasia without lower urinary tract symptoms; Z87.891 Personal history of nicotine dependence; Z88.5 Allergy status to narcotic agent; Z91.040 Latex allergy status; Z94.4 Liver transplant status; L40.9 Psoriasis, unspecified
CPT/HCPCS: 96372; 99282

== ENCOUNTER 2020-02-26 13:54 | Emergency (ER) | payer OTHER, SELFPAY ==
[2020-02-26 13:56] VITALS: BP 136/57; PULSE 84; RESP 18; TEMP 36.4; O2SAT 96; BMI 32.2
--- NOTE | 2020-02-26 14:20 | RAD_ITS ---
STUDY: X-RAY - UNILATERAL RIBS ( LEFT ) WITH CHEST REASON FOR EXAM: Male, 55 years old. Pain. Cough. TECHNIQUE - RIBS: 4 view(s) of the ribs. TECHNIQUE - CHEST: Frontal view COMPARISON: 06/17/2018 FINDINGS - RIBS: There are no displaced rib fractures identified. FINDINGS - CHEST: There are stable increased interstitial markings in the lungs. The lungs are otherwise clear. There are no pleural effusions. There is no pneumothorax. The heart is normal in size. RAD/Ribs Uni Min 3V w/PA Chest IMPRESSION: RIBS: No displaced rib fracture identified. CHEST: Clear lungs. Electronically Signed: Julio Devi, at 15:23 EDT Tel , Service support ,
--- NOTE | 2020-02-26 15:33 | ED.VIS.GEN ---
History of Present Illness Chief Complaint: Back Informant: Patient Narrative: Patient presents the emergency department with left mid back pain. He states he was coughing and felt a pop. He is worried he broke a rib. He has a history of osteoporosis. He is also a recipient of a new liver. Notes pain with movements and difficulty sleeping due to the pain. Past Medical History - Allergies and Home Meds Allergies/Adverse Reactions: Allergies hydrocodone bitartrate [From Vicodin] Allergy (Verified 02/26/20 14:00) Hives latex Allergy (Verified 02/26/20 14:00) It causes cracks in my hands vancomycin Allergy (Verified 02/26/20 14:00) Itching/turn red morphine Adverse Reaction (Verified 02/26/20 14:00) I feel dehydrated Primary Care Physician: Raphael Day MD [Primary Care Provider] - 1 Week if not improving Surgical History: tonsillectomy, - - liver transplant in 2014, he had a shunt in the heart patched......does not know the diagnosis, tracheostomy Smoking Status: Former smoker - Family History Maternal Family History: Reports: COPD, Pulmonary Disease, - - Breast Mass Paternal Family History: Reports: COPD Review of Systems General: Denies: Chills, Fever, Sweats Eyes: Denies: Visual changes - bilaterally, Diplopia ENT: Denies: Rhinorrhea, Sore throat Cardiovascular: Denies: Chest pain, Palpitations Respiratory: Denies: Dyspnea, Cough, Dyspnea on exertion Gastrointestinal: Denies: Abdominal pain, Nausea, Vomiting, Diarrhea, Melena, Hematochezia Genitourinary: Denies: Dysuria, Hematuria, Frequency Musculoskeletal: Reports: Back pain. Denies: Extremity Pain Skin: Denies: Rash, Wounds Neurological: Denies: Headache, Weakness, Numbness Physical Exam Vital Signs/Narrative: Vital Signs Temp Pulse Resp BP Pulse Ox 02/26/20 13:56 97.5 F L 84 18 136/57 H 96 Inital Vital Signs reviewed: Yes General: Well nourished, Well developed, No Acute Distress Head: Normocephalic, Atraumatic Eyes: Perrl, EOMI ENT: Moist mucous membranes, No rhinorrhea Neck: Supple, Nontender Cardiovascular: Regular rate, Regular rhythm, No murmurs Respiratory: No distress, CTA bilaterally, Chest nontender Abdomen: Soft, Nontender, Nondistended, Normal bowel sounds Back: Normal Inspection, - - Patient has tenderness to palpation over the angle of the mid ribs on the left. There is no ecchymosis seen. No crepitance. Extremities: Nontender, No edema Skin: Normal color, No rash Neurological: Alert, Oriented x3, Cranial nerves II-XII grossly intact, Normal Strength, Normal Sensation Psychological: Normal affect, Normal Mood Diagnostic/Tx/Re-eval Clinical Impression(s) from Imaging Studies Ribs w/Chest X-Ray 02/26/20 14:20 IMPRESSION: RIBS: No displaced rib fracture identified. CHEST: Clear lungs. Electronically Signed: Julio Devi, at 15:23 EDT Tel , Service support , - Medical Decision Making Explained to the patient that I do not see any displaced ribs. Does not rule out the possibility fracture. The lungs appear unaffected. I will give him a dose of Percocet here as he states he cannot have any NSAIDs because of a liver transplant. ED Disposition - Plan for ED Patient: Disposition: Home or Assisted Living Diagnosis: Chest wall muscle strain, Rib injury Instructions: ED Contusion Vs Minor Fx Rib Prescriptions: Oxycodone HCl/Acetaminophen [Percocet 5/325] 1 tab PO Q6H PRN PRN 3 Days #12 tab PRN Reason: Pain Transmission Status: Received by [facility] 1811 Referrals: Raphael Day MD [Primary Care Provider] - 1 Week if not improving
[2020-02-26] MEDS: oxyCODONE 5 MG Tablet PO (16:31)
== END 2020-02-26 16:38 | disposition home or self-care (01) ==
PROVIDERS: Emergency Provider Emergency Medicine; PCP Family Medicine
DX: S29.011A Strain of muscle and tendon of front wall of thorax, initial encounter (principal); X50.9XXA Other and unspecified overexertion or strenuous movements or postures, initial encounter; Z87.891 Personal history of nicotine dependence; Z88.5 Allergy status to narcotic agent; Z94.4 Liver transplant status; Z91.040 Latex allergy status
CPT/HCPCS: 71101; 96372; 99282

== ENCOUNTER 2021-03-22 09:14 | Emergency (ER) | payer OTHER, SELFPAY ==
[2021-03-22 09:15] VITALS: BP 144/94; PULSE 82; RESP 14; TEMP 36.1; O2SAT 96; BMI 22.6
--- NOTE | 2021-03-22 09:29 | CT_ITS ---
STUDY: CT ABDOMEN AND PELVIS WITH CONTRAST REASON FOR EXAM: Male, 56 years old. Weight loss. History of a prior liver transplant. RADIATION DOSAGE (If Supplied By Facility): CTDIvol = ( 10.16 ) mGy, DLP = ( 500.14 ) mGycm TECHNIQUE: Transaxial images were obtained from the dome of the diaphragm to the symphysis pubis without oral contrast. Oral and amp;amp; IV Gastrografin and amp;amp; 100mL Isovue-300 was administered. Sagittal and coronal images were reconstructed. Individualized dose optimization techniques were used for this CT. COMPARISON: Comparison is made with prior examination dated 04/26/2019. FINDINGS: The visualized lung bases are unremarkable. The visualized portions of the heart are within normal limits. Mildly dilated central intrahepatic biliary ducts. Sutures are seen in the region of the jalen hepatis. The gallbladder is not visualized. Normal gallbladder and extrahepatic biliary system. There is moderate splenomegaly. Persistent varicosities are seen in the region of the splenic hilum. Normal pancreas. Normal bilateral adrenal glands. Normal right kidney. Normal left kidney. Normal visualized stomach. Normal small intestine. Normal colon. The appendix is visualized and appears normal. There is scattered atherosclerotic calcification of the abdominal aorta, without a demonstrated aneurysm. Normal inferior vena cava. Normal retroperitoneum. Normal urinary bladder. There is enlargement of the prostate gland. And measures 6.4 cm x 4.7 sinus. As causes indentation at the bladder base. Normal abdominal wall. There are diffuse degenerative changes of the visualized lumbar spine. CT/Abdomen/Pelvis WITH Contrast IMPRESSION: Status post liver transplantation. Splenomegaly. There has been no change since prior study. Electronically Signed: Navjot Munoz MD at 12:08 EDT , Service support ,
--- NOTE | 2021-03-22 09:29 | EX.ED.DYSGE1 ---
HPI History of Present Illness Chief Complaint: Abd Pain Informant: patient Narrative Narrative: 56-year-old male presents with several day history of lower abdominal pain. He notes discomfort with urination. He notes constipation. He denies any fevers. No rectal bleeding. He has a history of liver transplant in 2016. He is followed by [facility]. He was seen at urgent care and was sent over out of concern for diverticulitis. Patient has no personal history of diverticulitis. He notes continued weight loss over the past year. He last saw primary care 1 week ago. [facility] Medical History (Updated 03/22/21 @ 14:[address] Mustapha Negrete, DO) Alcoholic cirrhosis of liver BPH (benign prostatic hyperplasia) Chronic hepatitis C GERD (gastroesophageal reflux disease) Hypertension Home Medications metoprolol tartrate 25 mg PO DAILY 01/24/16 [History Last Taken 08/05/19] pantoprazole 40 mg PO DAILY 01/24/16 [History Last Taken 08/05/19] sulfamethoxazole-trimethoprim 1 tab PO MOWEFR 01/24/16 [History Last Taken 08/05/19] lisinopril [Zestril] 5 mg PO DAILY 04/27/17 [History Last Taken 08/05/19] bupropion HCl 300 mg PO DAILY 08/05/19 [History Last Taken 08/05/19] cholecalciferol (vitamin D3) 500 unit PO DAILY 08/05/19 [History Last Taken 08/05/19] nortriptyline 10 mg PO QHS 08/05/19 [History Last Taken 08/04/19] sertraline 200 mg PO DAILY 08/05/19 [History Last Taken 08/04/19] tacrolimus 0.5 mg PO BID 08/05/19 [History Last Taken 08/05/19] tacrolimus 1 mg PO BID 08/05/19 [History Last Taken 08/05/19] ursodiol 300 mg PO BID 08/05/19 [History Last Taken 08/05/19] alendronate 70 mg PO WE 08/08/19 [History Last Taken Unknown] simvastatin 20 mg PO QHS 08/08/19 [History Last Taken Unknown] melatonin 3 mg PO QHS PRN PRN tab 08/09/19 [Rx Last Taken Unknown] betamethasone valerate 1 applic TOPICAL DAILY@0600 tube 08/23/19 [Rx Last Taken Unknown] diphenhydramine HCl 50 mg PO Q6H PRN PRN cap 08/23/19 [Rx Last Taken Unknown] nystatin 1 applic TOPICAL 0600,1800 bottle 08/23/19 [Rx Last Taken Unknown] potassium chloride 10 meq PO DAILYCM #30 tab 08/23/19 [Rx Last Taken Unknown] sennosides-docusate sodium 1 tab PO BID #60 tab 08/23/19 [Rx Last Taken Unknown] tamsulosin 0.4 mg PO BID@0830,1730 #60 cap 08/23/19 [Rx Last Taken Unknown] acetaminophen 500 mg PO Q6H PRN PRN 09/22/19 [History Last Taken Unknown] Allergy/AdvReac Type Severity Reaction Status Date / Time hydrocodone bitartrate Allergy Hives Verified 03/22/21 09:15 [From Vicodin] latex Allergy It causes Verified 03/22/21 09:15 cracks in my hands vancomycin Allergy Itching/turn Verified 03/22/21 09:15 red morphine AdvReac I feel Verified 03/22/21 09:15 dehydrated Surgical History Liver transplant recipient Social History (Updated 03/22/21 @ 09:[address] Mustapha Negrete, DO) Smoking Status: Former smoker alcohol intake: former ROS ROS ED Constitutional Constitutional ED: Denies chills or weight loss Eyes Eyes: Denies change in vision or diplopia ENT ENT ED: Denies ear pain, rhinorrhea or sore throat Cardiovascular Cardiovascular: Denies chest pain, orthopnea, palpitations or racing heartbeat Respiratory/Chest Respiratory/Chest: Denies cough, dyspnea or orthopnea Gastrointestinal Gastrointestinal: Reports abdominal pain and constipation; Denies diarrhea, nausea or vomiting Genitourinary Genitourinary ED: Reports dysuria; Denies hematuria or urinary frequency Musculoskeletal Musculoskeletal: Denies arthralgias or myalgias Integumentary Denies abscess or rash Neurologic Neurologic: Denies headache(s) or weakness Psychiatric Psychiatric: Denies anxiety, depression, suicidal ideation or suicidal thoughts Endocrine Endocrinology: Denies polydipsia, polyphagia or polyuria Allergic/Immunologic Allergic/Immunologic ED: Denies mouth swelling, tongue swelling or urticaria EXAM Physical Exam Const Vital Signs: 03/22/21 09:15 Temperature 97 F L Temperature Source Temporal Pulse Rate 82 Respiratory Rate 14 Blood Pressure 144/94 H Blood Pressure Mean 110 Pulse Ox 96 Oxygen Delivery Method Room Air Positive well nourished and well developed General Appearance ED: well developed HEENT Reports normocephalic, head/scalp atraumatic and moist mucous membranes Eyes PERRL and EOMs intact bilaterally Neck no lymphadenopathy, supple and no JVD Resp normal respiratory effort and clear to auscultation bilaterally Cardio regular rate, regular rhythm and no murmurs GI GI Narrative: Well-healed laparotomy scar. Palpation: soft and tender LLQ, RLQ and suprapubic Back/Spine no CVA tenderness and normal ROM Extremity normal to inspection General Extremety ED: Negative for edema General Extremity: Negative for edema Neuro oriented x3 and CN's II-XII intact bilaterally Sensorium / Orientation: alert Motor Exam: strength 5/5 throughout Psych mental status grossly normal Mood & Affect: Negative for depressed or tearful Skin no rashes or lesions noted and no wounds MDM MDM MDM Narrative Medical decision making narrative: Basic blood work showed normal CBC. CMP showed alk phos of 124. Urinalysis was normal. CT the abdomen pelvis with IV and oral contrast was obtained. This did not show any acute pathology. There is enlargement of the prostate gland which measures 6.4 cm x 4.7 cm. This does indent the bladder base. Patient has had four urinations here totaling about 200 cc each time. He states he does not feel that he is emptying his bladder. I had him urinate I put the ultrasound on him and he is indeed having retention. Pressing on the bladder with the probe reproduces his pain. Birch catheter will be placed. He has follow-up arranged with his urologist with his the [facility]. I think the urinary retention is most likely the cause of the patient's pain that he came to the emergency department for. Lab Data Attestation: I reviewed the patient's lab results. Labs: Laboratory Results - last 24 hr 03/22/21 03/22/21 03/22/21 09:45 09:45 09:45 WBC 6.7 RBC 4.79 Hgb 15.1 Hct 42.4 MCV 88.5 MCH 31.5 MCHC 35.6 RDW Std Deviation 40.8 RDW Coeff of Paz 12.7 Plt Count 142 L MPV 9.9 Immature Gran % (Auto) 0.400 Neut % (Auto) 78.0 H Lymph % (Auto) 10.9 L [place] % (Auto) 9.4 Eos % (Auto) 1.2 Baso % (Auto) 0.1 Absolute Neuts (auto) 5.2 Absolute Lymphs (auto) 0.73 L Nucleated RBC % 0 Sodium 132 L Potassium 3.6 Chloride 97 L Carbon Dioxide 26.0 Anion Gap 9 BUN 18 Creatinine 1.11 Estim Creat Clear Calc 65.16 Est GFR (MDRD) Af Amer 88 Est GFR (MDRD) Non-Af 72 BUN/Creatinine Ratio 16.2 Glucose 87 Calcium 9.3 Total Bilirubin 0.90 AST 26 ALT 37 Alkaline Phosphatase 124 H Total Protein 7.9 Albumin 4.6 Globulin 3.3 Albumin/Globulin Ratio 1.4 Lipase 163 Urine Color Yellow Urine Clarity Clear Urine pH 6.0 Ur Specific [place] 1.010 Urine Protein Negative Urine Glucose (UA) Normal Urine Ketones Negative Urine Occult Blood Negative Urine Nitrite Negative Urine Bilirubin Negative Urine Urobilinogen Normal Ur Leukocyte Esterase Negative Urine RBC 0 SEEN Urine WBC 0 SEEN Ur Squamous Epith Cells 0 SEEN Urine Bacteria 0 SEEN Urine Mucus 0 SEEN Radiography Diagnostic Testing: Radiology Impression Abdomen/Pelvis CT 03/22/21 09:29 IMPRESSION: Status post liver transplantation. Splenomegaly. There has been no change since prior study. Electronically Signed: Navjot Munoz MD at 12:08 EDT , Service support , Discharge Plan Triage Chief Complaint: Abd Pain ED Provider: Mustapha Negrete Dx/Rx/DC Orders Clinical Impression: Enlarged prostate with urinary retention Instructions: ED Urinary Retention, Male Prescriptions: No Action sulfamethoxazole-trimethoprim 1 TABLET tablet 1 tab PO MOWEFR RF: 0 pantoprazole 40 MG tablet 40 mg PO DAILY RF: 0 metoprolol tartrate 25 MG tablet 25 mg PO DAILY RF: 0 lisinopril [Zestril] 5 MG tablet 5 mg PO DAILY RF: 0 sertraline 100 MG tablet 200 mg PO DAILY RF: 0 nortriptyline 10 MG capsule 10 mg PO QHS RF: 0 ursodiol 300 MG capsule 300 mg PO BID RF: 0 tacrolimus 1 MG capsule 1 mg PO BID RF: 0 tacrolimus 0.5 MG capsule 0.5 mg PO BID RF: 0 bupropion HCl 300 MG tablet extended release 24 hr 300 mg PO DAILY RF: 0 cholecalciferol (vitamin D3) 1,000 UNIT tablet 500 unit PO DAILY RF: 0 alendronate 70 MG tablet 70 mg PO WE RF: 0 simvastatin 20 MG tablet 20 mg PO QHS RF: 0 melatonin 3 MG tablet 3 mg PO QHS PRN PRN (Reason: Insomnia) RF: 0 sennosides-docusate sodium 1 TABLET tablet 1 tab PO BID Qty: 60 RF: 0 betamethasone valerate 1 APPLIC cream 1 applic topical DAILY@0600 RF: 0 diphenhydramine HCl 25 MG capsule 50 mg PO Q6H PRN PRN (Reason: Itching) RF: 0 nystatin 1 APPLIC bottle 1 applic topical 0600,1800 RF: 0 potassium chloride 10 MEQ tablet 10 meq PO DAILYCM Qty: 30 RF: 0 tamsulosin 0.4 MG capsule 0.4 mg PO BID@0830,1730 Qty: 60 RF: 0 acetaminophen 500 MG tablet 500 mg PO Q6H PRN PRN (Reason: Pain Score 1-3/10) RF: 0 Primary Care Provider: Raphael Day Referrals: Raphael Day MD [Primary Care Provider] - As Needed Activity Restrictions/Additional Instructions: I would urge you to call your urologist office and let them know that you have a catheter placed for urinary retention. Disposition Disposition: Home, Self Care
[2021-03-22 09:52] LABS: Bacteria 0 SEEN /hpf (None Seen); Mucous, Urine 0 SEEN /hpf (<or=2+); Red Blood Cells-Urine 0 SEEN /hpf (0-5); Squamous Epithelial Cells - UA 0 SEEN /hpf (0-5); White Blood Cells 0 SEEN /hpf (0-5)
[2021-03-22 09:57] LABS: Absolute Lymphocyte Count 0.73 X10^3/uL (0.83-4.51); Absolute Neutrophil Count 5.2 X10^3/uL (2.0-7.7); Basophil# 0.01 X10^3/uL; Basophil% 0.1 % (0-1); Eosinophil# 0.08 X10^3/uL; Eosinophils% 1.2 % (0-5); Hematocrit 42.4 % (40-54); Hemoglobin 15.1 g/dL (13.0-16.5); Lymphocyte # 0.73 X10^3/ul (0.83-4.51); Lymphocyte % 10.9 % (19-41); Mean Corp Hgb Conc 35.6 g/dL (32-36); Mean Corpuscular Hgb 31.5 pg (27.0-32.0); Mean Corpuscular Volume 88.5 fL (80-94); Mean Platelet Vol. 9.9 fl (6.2-12.0); Monocyte# 0.63 X10^3/uL; Monocyte% 9.4 % (0-10); NRBC Flagged by Analyzer 0 % (0-5); Neutrophil # 5.22 X10^3/uL (2.7-7.7); Platelet Count 142 K/mm3 (150-450); RBC Distribution Width CV 12.7 % (11.6-14.6); RBC Distribution Width SD 40.8 fl (35.1-43.9); Red Blood Count 4.79 M/mm3 (4.6-6.2); White Blood Count 6.7 K/mm3 (4.4-11.0)
[2021-03-22 10:10] LABS: ALB/GLOB Ratio 1.4 RATIO (0.9-2.4); AST(SGOT) 26 U/L (15-37); Alanine Aminotransfer ALT/SGPT 37 U/L (16-61); Albumin, Serum 4.6 g/dL (3.2-5.0); Alkaline Phosphatase 124 U/L (45-117); Anion Gap 9 (5-15); BUN 18 mg/dL (7-18); BUN/Creat Ratio 16.2 RATIO (10-20); Calcium,Total 9.3 mg/dL (8.5-10.1); Chloride 97 mmol/L (98-107); Creatinine, Serum 1.11 mg/dL (0.70-1.30); EST Glomerular Filtration Rate 72 mL/min (>60); Est Glom Filt Rate - Afr Amer 88 mL/min (>60); Estimated Creatinine Clearance 65.16 ml/min; Globulin 3.3 g/dL (2.2-4.2); Glucose 87 mg/dL (74-106); Lipase 163 U/L (73-393); Potassium 3.6 mmol/L (3.5-5.1); Protein, Total 7.9 g/dL (6.4-8.2); Sodium Level 132 mmol/L (136-145)
[2021-03-22 10:21] LABS: Color, Urine Yellow (Yellow); Glucose, Dipstick Normal (Normal); Ketone-Dipstick Negative (Negative); Leukocyte Esterase-Dipstick Negative /ul (Negative); Nitrite-Dipstick Negative (Negative); Occult Blood-Urine Negative /ul (Negative); Protein-Dipstick Negative (Negative); Urine Bilirubin Dipstick Negative (Negative); Urine Clarity Clear (Clear); Urine Urobilinogen Normal (Normal)
[2021-03-22] MEDS: Ondansetron 4 MG/2 ML Vial IV (10:27)
[2021-03-22] MEDS: HYDROmorphone 0.5 MG/0.5 ML SYRINGE IV (10:27)
[2021-03-22] MEDS: Ketorolac 30 MG/ML Syringe IV (14:46)
[2021-03-22] MEDS: Lidocaine Jelly 2% 20 ML Syringe (URO-JET) 20 APPLIC TOPICAL (14:47)
[2021-03-22 15:09] VITALS: RESP 18
== END 2021-03-22 15:12 | disposition home or self-care (01) ==
PROVIDERS: Emergency Provider Emergency Medicine; PCP Family Medicine
DX: N40.1 Benign prostatic hyperplasia with lower urinary tract symptoms (principal); Z87.891 Personal history of nicotine dependence
CPT/HCPCS: 51702; 74177; 80053; 81001; 83690; 85025; 96374; 96375; 99283; Q9967; A4216; J2405

== ENCOUNTER 2021-03-28 20:13 | Emergency (ER) | payer OTHER, SELFPAY ==
[2021-03-28 20:14] VITALS: BP 106/64; PULSE 71; RESP 16; TEMP 36.6; O2SAT 98; BMI 22.7
--- NOTE | 2021-03-28 21:52 | EX.ED.DYSGE1 ---
HPI History of Present Illness Chief Complaint: Birch C/O Detail of Chief Complaint: Suprapubic pain, no urine output for 4 hours Informant: patient Onset/Context/Timing Onset: Hours (No urine output for 4 hours) and Days (Pain has been present for a couple of days. It is worse tonight) Context: Sudden Onset Timing: Continuous Quality: Discomfort Location: Suprapubic Current Severity: Mild Maximum Severity: Severe Worsened by: Made worse with palpation Relieved by: Nothing Associated Symptoms Associated Symptoms: Blood in urine Narrative Narrative: Patient is a 56-year-old male status post liver transplant who has history of hypertension, hypercholesterolemia who was seen 5 days ago for acute urinary retention. Birch was placed. He was told he has an enlarged prostate. He also had problems with constipation. Patient presents now because of pain that is gotten worse that he localized in the suprapubic area. He denies nausea or vomiting. Still reports difficulty having bowel movements. He states initially there was blood in his urine with small clots. He now states the urine is dark in color and he is not made any urine for 4 hours. He denies problems with his kidney. He denies fever, chills night sweats. He has not missed any of his immunosuppressive meds. He denies history of renal ureterolithiasis. Prior similar symptoms: No Recent Illness/Hospitalization: No PFSH PFS Medical History Alcoholic cirrhosis of liver BPH (benign prostatic hyperplasia) Chronic hepatitis C GERD (gastroesophageal reflux disease) Hypertension Home Medications metoprolol tartrate 25 mg PO DAILY 01/24/16 [History Last Taken 08/05/19] pantoprazole 40 mg PO DAILY 01/24/16 [History Last Taken 08/05/19] sulfamethoxazole-trimethoprim 1 tab PO MOWEFR 01/24/16 [History Last Taken 08/05/19] lisinopril [Zestril] 5 mg PO DAILY 04/27/17 [History Last Taken 08/05/19] bupropion HCl 300 mg PO DAILY 08/05/19 [History Last Taken 08/05/19] cholecalciferol (vitamin D3) 500 unit PO DAILY 08/05/19 [History Last Taken 08/05/19] nortriptyline 10 mg PO QHS 08/05/19 [History Last Taken 08/04/19] sertraline 200 mg PO DAILY 08/05/19 [History Last Taken 08/04/19] tacrolimus 0.5 mg PO BID 08/05/19 [History Last Taken 08/05/19] tacrolimus 1 mg PO BID 08/05/19 [History Last Taken 08/05/19] ursodiol 300 mg PO BID 08/05/19 [History Last Taken 08/05/19] alendronate 70 mg PO WE 08/08/19 [History Last Taken Unknown] simvastatin 20 mg PO QHS 08/08/19 [History Last Taken Unknown] melatonin 3 mg PO QHS PRN PRN tab 08/09/19 [Rx Last Taken Unknown] betamethasone valerate 1 applic TOPICAL DAILY@0600 tube 08/23/19 [Rx Last Taken Unknown] diphenhydramine HCl 50 mg PO Q6H PRN PRN cap 08/23/19 [Rx Last Taken Unknown] nystatin 1 applic TOPICAL 0600,1800 bottle 08/23/19 [Rx Last Taken Unknown] potassium chloride 10 meq PO DAILYCM #30 tab 08/23/19 [Rx Last Taken Unknown] sennosides-docusate sodium 1 tab PO BID #60 tab 08/23/19 [Rx Last Taken Unknown] tamsulosin 0.4 mg PO BID@0830,1730 #60 cap 08/23/19 [Rx Last Taken Unknown] acetaminophen 500 mg PO Q6H PRN PRN 09/22/19 [History Last Taken Unknown] ciprofloxacin HCl 500 mg PO BID #14 tablet 03/29/21 [Rx Last Taken Unknown] Allergy/AdvReac Type Severity Reaction Status Date / Time hydrocodone bitartrate Allergy Hives Verified 03/28/21 20:14 [From Vicodin] latex Allergy It causes Verified 03/28/21 20:14 cracks in my hands vancomycin Allergy Itching/turn Verified 03/28/21 20:14 red morphine AdvReac I feel Verified 03/28/21 20:14 dehydrated Surgical History Liver transplant recipient Social History (Updated 03/28/21 @ 21:[address] Keith Gunderson MD) household members: none Smoking Status: Former smoker alcohol intake: former substance use type: does not use ROS ROS ED Constitutional Constitutional ED: Denies chills, fever(s), subjective or sweats Eyes Eyes: Denies blurry vision or change in vision ENT ENT ED: Denies ear pain, rhinorrhea or sore throat Cardiovascular Cardiovascular: Denies chest pain, palpitations or racing heartbeat Respiratory/Chest Respiratory/Chest: Denies cough, dyspnea or dyspnea on exertion Gastrointestinal Gastrointestinal: Reports abdominal pain and constipation; Denies diarrhea, melena, nausea or vomiting Genitourinary Genitourinary ED: Reports hematuria; Denies dysuria or urinary frequency Musculoskeletal Musculoskeletal: Denies arthralgias, back pain, myalgias or neck pain Integumentary Denies rash Neurologic Neurologic: Denies paresthesias or weakness Psychiatric Psychiatric: Reports depression Allergic/Immunologic Allergic/Immunologic ED: Denies mouth swelling or urticaria EXAM Physical Exam Const Vital Signs: 03/28/21 20:14 Temperature 97.8 F Temperature Source Temporal Pulse Rate 71 Respiratory Rate 16 Blood Pressure 106/64 Blood Pressure Mean 78 Pulse Ox 98 Oxygen Delivery Method Room Air Positive well nourished and well developed General Appearance ED: well developed and NAD HEENT Reports TM's clear and dry mucous membranes HEENT Narrative: Uvula is midline. There is no erythema or exudate. Face is symmetric. Ears are normal. Negative for trauma or tenderness Tympanic Membrane ED: Yes TM's clear Mouth ED: Yes dry mucous membranes Mouth: dry mucous membranes Eyes PERRL and EOMs intact bilaterally General Eye ED: Negative for pale conjunctiva or scleral icterus Neck no lymphadenopathy, supple and no JVD Chest Wall inspection of chest normal Resp normal respiratory effort and clear to auscultation bilaterally Effort and Inspection: Negative for pain with movement Cardio regular rate, regular rhythm, S1 normal heart sound, S2 normal heart sound and no murmurs GI normal to inspection, nondistended, normoactive bowel sounds and no masses; Negative for non-tender Palpation: soft and tender other (Patient literally jumped off the bed when I was moving his skin to palpate the suprapubic area. He states he is pain is unbearable.) Narrative: Patient has an indwelling Birch. The urine appears dark. There is no blood clots noted. Back/Spine General Back: CVA tenderness right Thoracic Spine / Upper Back: Negative for thoracic spinal tenderness or paraspinal muscle tenderness Lumbar Spine / Lower Back: Negative for lumbar spinal tenderness Extremity normal to inspection General Extremety ED: Negative for edema or tenderness General Extremity: Negative for edema Neuro oriented x3 and CN's II-XII intact bilaterally Sensorium / Orientation: alert Motor Exam: strength 5/5 throughout Psych mental status grossly normal Skin no rashes or lesions noted Wounds: wounds noted other Wounds noted along incision site of liver transplant. Healing without evidence of infection. MDM MDM MDM Narrative Medical decision making narrative: Will obtain bladder scan to determine if the Birch is obstructed. Also need to rule out renal dysfunction. He appears slightly pale will obtain CBC to assess white count as well as H&H. Since he does not have tenderness in the right upper or left upper quadrant liver enzymes and lipase was not ordered. Lab Data Attestation: I reviewed the patient's lab results. Labs: Laboratory Results - last 24 hr 03/28/21 03/28/21 03/28/21 22:00 22:10 22:10 WBC 6.5 RBC 4.58 L Hgb 14.6 Hct 41.6 MCV 90.8 MCH 31.9 MCHC 35.1 RDW Std Deviation 43.8 RDW Coeff of Paz 13.6 Plt Count 152 MPV 9.4 Immature Gran % (Auto) 0.300 Neut % (Auto) 77.5 H Lymph % (Auto) 11.1 L [place] % (Auto) 9.2 Eos % (Auto) 1.7 Baso % (Auto) 0.2 Absolute Neuts (auto) 5.0 Absolute Lymphs (auto) 0.72 L Nucleated RBC % 0 Sodium 139 Potassium 4.1 Chloride 100 Carbon Dioxide 33.0 H Anion Gap 6 BUN 20 H Creatinine 1.19 Estim Creat Clear Calc 61.06 Est GFR (MDRD) Af Amer 81 Est GFR (MDRD) Non-Af 67 BUN/Creatinine Ratio 16.8 Glucose 82 Calcium 9.8 Urine Color Yellow Urine Clarity Sl. Cloudy Urine pH 6.0 Ur Specific [place] 1.010 Urine Protein 100 H Urine Glucose (UA) Normal Urine Ketones Negative Urine Occult Blood 250 H Urine Nitrite Negative Urine Bilirubin Negative Urine Urobilinogen Normal Ur Leukocyte Esterase 500 H Urine RBC > 100 SEEN Urine WBC 10-25 SEEN Ur Squamous Epith Cells 0 SEEN Urine Bacteria 3+ Urine Mucus 0 SEEN White count is normal. CO2 is higher than normal. GFR is greater than 60. Urine is consistent with infection with pyuria and 3+ bacteria. Macro was positive for leukoesterase and occult blood. Macro was negative for nitrites however. Since he is a liver recipient and on immunosuppressive meds urine culture was obtained and he was treated with 1 g of Rocephin IV piggyback in the emergency department. Treatment and Re-Evaluation Comments:: She was informed of results. Patient refused the morphine. Patient was told that is his prerogative. He states everyone gives him Dilaudid. He was informed the dose of morphine is equivalent to the dose of Dilaudid he has received in the past. Patient was informed he has an infection. He was informed he received IV antibiotics and discharged to home. He informed me the reason he did not take the morphine is because it does not work. His reported allergy is I feel dehydrated . Discharge Plan Triage Chief Complaint: Birch C/O ED Provider: Keith Gunderson Dx/Rx/DC Orders Clinical Impression: Complicated urinary tract infection, Liver transplant recipient Instructions: Urinary Tract Infections in Men Prescriptions: New ciprofloxacin HCl [ciprofloxacin HCl] 500 MG tablet 500 mg PO BID Qty: 14 RF: 0 No Action sulfamethoxazole-trimethoprim 1 TABLET tablet 1 tab PO MOWEFR RF: 0 pantoprazole 40 MG tablet 40 mg PO DAILY RF: 0 metoprolol tartrate 25 MG tablet 25 mg PO DAILY RF: 0 lisinopril [Zestril] 5 MG tablet 5 mg PO DAILY RF: 0 sertraline 100 MG tablet 200 mg PO DAILY RF: 0 nortriptyline 10 MG capsule 10 mg PO QHS RF: 0 ursodiol 300 MG capsule 300 mg PO BID RF: 0 tacrolimus 1 MG capsule 1 mg PO BID RF: 0 tacrolimus 0.5 MG capsule 0.5 mg PO BID RF: 0 bupropion HCl 300 MG tablet extended release 24 hr 300 mg PO DAILY RF: 0 cholecalciferol (vitamin D3) 1,000 UNIT tablet 500 unit PO DAILY RF: 0 alendronate 70 MG tablet 70 mg PO WE RF: 0 simvastatin 20 MG tablet 20 mg PO QHS RF: 0 melatonin 3 MG tablet 3 mg PO QHS PRN PRN (Reason: Insomnia) RF: 0 sennosides-docusate sodium 1 TABLET tablet 1 tab PO BID Qty: 60 RF: 0 betamethasone valerate 1 APPLIC cream 1 applic topical DAILY@0600 RF: 0 diphenhydramine HCl 25 MG capsule 50 mg PO Q6H PRN PRN (Reason: Itching) RF: 0 nystatin 1 APPLIC bottle 1 applic topical 0600,1800 RF: 0 potassium chloride 10 MEQ tablet 10 meq PO DAILYCM Qty: 30 RF: 0 tamsulosin 0.4 MG capsule 0.4 mg PO BID@0830,1730 Qty: 60 RF: 0 acetaminophen 500 MG tablet 500 mg PO Q6H PRN PRN (Reason: Pain Score 1-3/10) RF: 0 Primary Care Provider: Raphael Day Referrals: Raphael Day MD [Primary Care Provider] - 3-5 Days Disposition Disposition: Home, Self Care
[2021-03-28 22:10] LABS: Color, Urine Yellow (Yellow); Glucose, Dipstick Normal (Normal); Ketone-Dipstick Negative (Negative); Leukocyte Esterase-Dipstick 500 /ul (Negative); Mucous, Urine 0 SEEN /hpf (<or=2+); Nitrite-Dipstick Negative (Negative); Occult Blood-Urine 250 /ul (Negative); Protein-Dipstick 100 mg/dl (Negative); Squamous Epithelial Cells - UA 0 SEEN /hpf (0-5); Urine Bilirubin Dipstick Negative (Negative); Urine Clarity Sl. Cloudy (Clear); Urine Urobilinogen Normal (Normal)
[2021-03-28 22:20] LABS: Bacteria 3+ /hpf (None Seen); Red Blood Cells-Urine > 100 SEEN /hpf (0-5); White Blood Cells 10-25 SEEN /hpf (0-5)
[2021-03-28 22:27] LABS: Absolute Lymphocyte Count 0.72 X10^3/uL (0.83-4.51); Basophil# 0.01 X10^3/uL; Basophil% 0.2 % (0-1); Eosinophil# 0.11 X10^3/uL; Eosinophils% 1.7 % (0-5); Hematocrit 41.6 % (40-54); Hemoglobin 14.6 g/dL (13.0-16.5); Lymphocyte # 0.72 X10^3/ul (0.83-4.51); Lymphocyte % 11.1 % (19-41); Mean Corp Hgb Conc 35.1 g/dL (32-36); Mean Corpuscular Hgb 31.9 pg (27.0-32.0); Mean Corpuscular Volume 90.8 fL (80-94); Mean Platelet Vol. 9.4 fl (6.2-12.0); Monocyte% 9.2 % (0-10); NRBC Flagged by Analyzer 0 % (0-5); Neutrophil # 5.03 X10^3/uL (2.7-7.7); Neutrophil % 77.5 % (47-70); Platelet Count 152 K/mm3 (150-450); RBC Distribution Width CV 13.6 % (11.6-14.6); RBC Distribution Width SD 43.8 fl (35.1-43.9); Red Blood Count 4.58 M/mm3 (4.6-6.2); White Blood Count 6.5 K/mm3 (4.4-11.0)
[2021-03-28 22:40] LABS: Anion Gap 6 (5-15); BUN 20 mg/dL (7-18); BUN/Creat Ratio 16.8 RATIO (10-20); Calcium,Total 9.8 mg/dL (8.5-10.1); Chloride 100 mmol/L (98-107); Creatinine, Serum 1.19 mg/dL (0.70-1.30); EST Glomerular Filtration Rate 67 mL/min (>60); Est Glom Filt Rate - Afr Amer 81 mL/min (>60); Estimated Creatinine Clearance 61.06 ml/min; Glucose 82 mg/dL (74-106); Potassium 4.1 mmol/L (3.5-5.1); Sodium Level 139 mmol/L (136-145)
[2021-03-28] MEDS: Ceftriaxone 1 GM/50 ML BAG IV (23:57)
[2021-03-29 00:29] VITALS: BP 118/72; PULSE 78; RESP 16
== END 2021-03-29 00:30 | disposition home or self-care (01) ==
PROVIDERS: Emergency Provider Emergency Medicine; PCP Family Medicine
DX: N39.0 Urinary tract infection, site not specified (principal); Z94.4 Liver transplant status; B18.2 Chronic viral hepatitis C; E78.00 Pure hypercholesterolemia, unspecified; I10 Essential (primary) hypertension; K21.9 Gastro-esophageal reflux disease without esophagitis; Z87.891 Personal history of nicotine dependence; N40.0 Benign prostatic hyperplasia without lower urinary tract symptoms; K70.30 Alcoholic cirrhosis of liver without ascites
CPT/HCPCS: 80048; 81001; 85025; 87086; 87088; 87186; 99284; J7030; J7040; J7050; A4216

== ENCOUNTER 2021-05-06 05:11 | Emergency (ER) | payer OTHER, SELFPAY ==
[2021-05-06 05:12] VITALS: BP 110/80; PULSE 101; RESP 16; TEMP 35.9; O2SAT 99; BMI 26.4
--- NOTE | 2021-05-06 05:26 | EX.ED.GUMALE ---
HPI History of Present Illness Chief Complaint: Complaint Informant: patient Pain Onset: Today Context: Gradual Onset Timing: Continuous Current Severity: Mild Maximum Severity: Mild Narrative Narrative: 56-year-old male history of prior liver transplant 5 years ago or so. Has BPH and had a history of prior urinary retention with a Birch catheter placed 2 months ago. States initially was constipated but has had 3 bowel movements in last 24 hours. States he is unable to urinate. Had nausea and vomiting x1. No fever. No melena. No hematuria. Prior similar symptoms: Yes Recent Illness/Hospitalization: No PFSH PFSH Medical History Alcoholic cirrhosis of liver BPH (benign prostatic hyperplasia) Chronic hepatitis C GERD (gastroesophageal reflux disease) Hypertension Home Medications metoprolol tartrate 25 mg PO DAILY 01/24/16 [History Last Taken 08/05/19] pantoprazole 40 mg PO DAILY 01/24/16 [History Last Taken 08/05/19] sulfamethoxazole-trimethoprim 1 tab PO MOWEFR 01/24/16 [History Last Taken 08/05/19] lisinopril [Zestril] 5 mg PO DAILY 04/27/17 [History Last Taken 08/05/19] bupropion HCl 300 mg PO DAILY 08/05/19 [History Last Taken 08/05/19] cholecalciferol (vitamin D3) 500 unit PO DAILY 08/05/19 [History Last Taken 08/05/19] nortriptyline 10 mg PO QHS 08/05/19 [History Last Taken 08/04/19] sertraline 200 mg PO DAILY 08/05/19 [History Last Taken 08/04/19] tacrolimus 0.5 mg PO BID 08/05/19 [History Last Taken 08/05/19] tacrolimus 1 mg PO BID 08/05/19 [History Last Taken 08/05/19] ursodiol 300 mg PO BID 08/05/19 [History Last Taken 08/05/19] alendronate 70 mg PO WE 08/08/19 [History Last Taken Unknown] simvastatin 20 mg PO QHS 08/08/19 [History Last Taken Unknown] melatonin 3 mg PO QHS PRN PRN tab 08/09/19 [Rx Last Taken Unknown] betamethasone valerate 1 applic TOPICAL DAILY@0600 tube 08/23/19 [Rx Last Taken Unknown] diphenhydramine HCl 50 mg PO Q6H PRN PRN cap 08/23/19 [Rx Last Taken Unknown] nystatin 1 applic TOPICAL 0600,1800 bottle 08/23/19 [Rx Last Taken Unknown] potassium chloride 10 meq PO DAILYCM #30 tab 08/23/19 [Rx Last Taken Unknown] sennosides-docusate sodium 1 tab PO BID #60 tab 08/23/19 [Rx Last Taken Unknown] tamsulosin 0.4 mg PO BID@0830,1730 #60 cap 08/23/19 [Rx Last Taken Unknown] acetaminophen 500 mg PO Q6H PRN PRN 09/22/19 [History Last Taken Unknown] ciprofloxacin HCl 500 mg PO BID #14 tablet 03/29/21 [Rx Last Taken Unknown] cephalexin 500 mg PO Q6H 10 Days #40 cap 05/06/21 [Rx Last Taken Unknown] Allergy/AdvReac Type Severity Reaction Status Date / Time hydrocodone bitartrate Allergy Hives Verified 05/06/21 05:15 [From Vicodin] latex Allergy It causes Verified 05/06/21 05:15 cracks in my hands vancomycin Allergy Itching/turn Verified 05/06/21 05:15 red morphine AdvReac I feel Verified 05/06/21 05:15 dehydrated Surgical History Liver transplant recipient Social History household members: none Smoking Status: Former smoker alcohol intake: former substance use type: does not use ROS ROS ED ROS Narrative Nausea vomiting x1. Constipation now resolved. Urinary retention. Review of Systems ROS Unobtainable: Denies due to encephalopathy Constitutional Constitutional ED: Denies chills or fever(s) Eyes Eyes: Denies change in vision ENT ENT ED: Denies ear pain or sore throat Cardiovascular Cardiovascular: Denies chest pain Respiratory/Chest Respiratory/Chest: Denies cough or dyspnea Gastrointestinal Gastrointestinal: Reports constipation, nausea and vomiting; Denies abdominal pain Genitourinary Genitourinary ED: Reports dysuria and hematuria Musculoskeletal Musculoskeletal: Reports myalgias Integumentary Reports rash Neurologic Neurologic: Reports headache(s) Psychiatric Psychiatric: Reports depression Endocrine Endocrinology: Reports polyuria Hematologic/Lymphatic Hematologic/Lymphatic: Reports easy bruising Allergic/Immunologic Allergic/Immunologic ED: Reports urticaria EXAM Physical Exam Narrative Exam Narrative: Middle-age male no acute distress. Vital signs stable afebrile. Does not look septic or toxic. HEENT exam unremarkable. Neck nontender no lymphadenopathy. Lungs are clear equal symmetrical. Heart regular rhythm rate about 95 no murmur. Abdomen soft. Nondistended normal bowel sounds no peritoneal signs. Well-healed prior surgical incision scars. Moving all 4 extremities. No edema. Neurologically awake alert no focal motor deficits. Const Vital Signs: 05/06/21 05:12 Temperature 96.6 F L Temperature Source Temporal Pulse Rate 101 H Respiratory Rate 16 Blood Pressure 110/80 Blood Pressure Mean 90 Pulse Ox 99 Oxygen Delivery Method Room Air Positive well nourished and well developed General Appearance ED: well developed and NAD; Negative for pallor HEENT Reports moist mucous membranes normocephalic and atraumatic Eyes PERRL and EOMs intact bilaterally Neck no lymphadenopathy, supple and no JVD General: Negative for tenderness Resp normal respiratory effort and clear to auscultation bilaterally Auscultation: Negative for rales, rhonchi or wheezes Cardio regular rate, regular rhythm, S1 normal heart sound, S2 normal heart sound and no murmurs GI non-tender, non-distended and no masses Auscultation: normoactive bowel sounds Palpation: soft Rectal Exam: tenderness Penis: normal penis and circumcised Scrotum: testes descended bilaterally Testes: testicular lie normal Back/Spine no CVA tenderness Extremity normal to inspection General Extremety ED: Negative for edema or tenderness General Extremity: Negative for edema Neuro oriented x3 and moves all extremities Sensorium / Orientation: alert, oriented to person, oriented to place and oriented to time; Negative for orientation impaired, confused, lethargic or stuporous Motor Exam: strength 5/5 throughout Psych mental status grossly normal Attitude: No agitated Mood & Affect: Negative for depressed or tearful Skin General Skin Exam: Negative for jaundice or pallor Rashes: no rashes and No rashes noted MDM MDM MDM Narrative Medical decision making narrative: Well-appearing middle-aged male. Complaint urinary retention. Birch cath to be obtained. Urinalysis and screening labs will be obtained. Repeat exam at 6:05 AM patient doing well. Feels improved after the Birch catheter. Currently it has over 500 cc of clear yellow urine in the Birch bag. It continues to drain. Lab Data Attestation: I reviewed the patient's lab results. Lab results narrative: CBC shows a white 11.5. Hemoglobin is 16. Electrolytes sodium 133. Gap 9. Creatinine 1.1. Glucose 137. Urinalysis shows positive nitrates, 10-25 white cells and 4+ bacteria. A urine culture be sent. He'll be started on oral antibiotics. Birch catheter has already been placed by nursing and he'll follow up with outpatient urology. Labs: Laboratory Results - last 24 hr 05/06/21 05/06/21 05/06/21 05:35 05:35 06:00 WBC 11.5 H RBC 5.07 Hgb 16.4 Hct 46.8 MCV 92.3 MCH 32.3 H MCHC 35.0 RDW Std Deviation 43.8 RDW Coeff of [place] 13.1 Plt Count 97 L MPV 10.0 Immature Gran % (Auto) 0.900 Neut % (Auto) 89.6 H Lymph % (Auto) 1.7 L [place] % (Auto) 7.6 Eos % (Auto) 0.1 Baso % (Auto) 0.1 Absolute Neuts (auto) 10.3 H Absolute Lymphs (auto) 0.19 L Nucleated RBC % 0 Differential Comment SCANNED Sodium 133 L Potassium 3.6 Chloride 97 L Carbon Dioxide 27.0 Anion Gap 9 BUN 19 H Creatinine 1.19 Estim Creat Clear Calc 61.06 Est GFR (MDRD) Af Amer 81 Est GFR (MDRD) Non-Af 67 BUN/Creatinine Ratio 16.0 Glucose 137 H Calcium 9.4 Urine Color Yellow Urine Clarity Clear Urine pH 6.5 Ur Specific [place] 1.010 Urine Protein Negative Urine Glucose (UA) Normal Urine Ketones Negative Urine Occult Blood 10 H Urine Nitrite Positive H Urine Bilirubin Negative Urine Urobilinogen Normal Ur Leukocyte Esterase 500 H Urine RBC 0-5 SEEN Urine WBC 10-25 SEEN Ur Squamous Epith Cells 0 SEEN Urine Bacteria 4+ Urine Mucus 1+ Discharge Plan Triage Chief Complaint: Complaint Other Complaint: Constipation ED Provider: Jefry Spear Dx/Rx/DC Orders Clinical Impression: Enlarged prostate with urinary retention, Urinary tract infection in male Instructions: ED Urinary Retention, Male, ED Bladder Infection, Male (Adult) Prescriptions: New cephalexin 500 mg capsule 500 mg PO Q6H 10 Days Qty: 40 RF: 0 No Action sulfamethoxazole-trimethoprim 1 TABLET tablet 1 tab PO MOWEFR RF: 0 pantoprazole 40 MG tablet 40 mg PO DAILY RF: 0 metoprolol tartrate 25 MG tablet 25 mg PO DAILY RF: 0 lisinopril [Zestril] 5 MG tablet 5 mg PO DAILY RF: 0 sertraline 100 MG tablet 200 mg PO DAILY RF: 0 nortriptyline 10 MG capsule 10 mg PO QHS RF: 0 ursodiol 300 MG capsule 300 mg PO BID RF: 0 tacrolimus 1 MG capsule 1 mg PO BID RF: 0 tacrolimus 0.5 MG capsule 0.5 mg PO BID RF: 0 bupropion HCl 300 MG tablet extended release 24 hr 300 mg PO DAILY RF: 0 cholecalciferol (vitamin D3) 1,000 UNIT tablet 500 unit PO DAILY RF: 0 alendronate 70 MG tablet 70 mg PO WE RF: 0 simvastatin 20 MG tablet 20 mg PO QHS RF: 0 melatonin 3 MG tablet 3 mg PO QHS PRN PRN (Reason: Insomnia) RF: 0 sennosides-docusate sodium 1 TABLET tablet 1 tab PO BID Qty: 60 RF: 0 betamethasone valerate 1 APPLIC cream 1 applic topical DAILY@0600 RF: 0 diphenhydramine HCl 25 MG capsule 50 mg PO Q6H PRN PRN (Reason: Itching) RF: 0 nystatin 1 APPLIC bottle 1 applic topical 0600,1800 RF: 0 potassium chloride 10 MEQ tablet 10 meq PO DAILYCM Qty: 30 RF: 0 tamsulosin 0.4 MG capsule 0.4 mg PO BID@0830,1730 Qty: 60 RF: 0 acetaminophen 500 MG tablet 500 mg PO Q6H PRN PRN (Reason: Pain Score 1-3/10) RF: 0 ciprofloxacin HCl [ciprofloxacin HCl] 500 MG tablet 500 mg PO BID Qty: 14 RF: 0 Primary Care Provider: Raphael Day Referrals: Norm Torres MD [STAFF PHYSICIAN] - As soon as possible Raphael Day MD [Primary Care Provider] - As Needed Activity Restrictions/Additional Instructions: Empty the Birch leg bag whenever more than half full. Call and follow-up with your urologist. If you do not have one you can follow-up with Dr. Brayan Torres a urologist here to the hospital. Your urinalysis appears to show that you have a urinary tract infection. A urine culture also be sent. We'll start you on antibiotic Keflex 1 pill 4 times a day for 10 days. This can also be discussed either with your primary care physician or your urologist. The urine culture should be checked to ensure that the antibiotic we placed you on is appropriate for what ever bacteria is causing the infection. Disposition Disposition: Home, Self Care
[2021-05-06 05:45] LABS: Absolute Lymphocyte Count 0.19 X10^3/uL (0.83-4.51); Absolute Neutrophil Count 10.3 X10^3/uL (2.0-7.7); Basophil# 0.01 X10^3/uL; Basophil% 0.1 % (0-1); Eosinophil# 0.01 X10^3/uL; Eosinophils% 0.1 % (0-5); Hematocrit 46.8 % (40-54); Hemoglobin 16.4 g/dL (13.0-16.5); Lymphocyte # 0.19 X10^3/ul (0.83-4.51); Lymphocyte % 1.7 % (19-41); Mean Corpuscular Hgb 32.3 pg (27.0-32.0); Mean Corpuscular Volume 92.3 fL (80-94); Monocyte# 0.87 X10^3/uL; Monocyte% 7.6 % (0-10); NRBC Flagged by Analyzer 0 % (0-5); Neutrophil # 10.32 X10^3/uL (2.7-7.7); Neutrophil % 89.6 % (47-70); POSITIVE COUNT YES; POSITIVE DIFFERENTIAL YES; Platelet Count 97 K/mm3 (150-450); RBC Distribution Width CV 13.1 % (11.6-14.6); RBC Distribution Width SD 43.8 fl (35.1-43.9); Red Blood Count 5.07 M/mm3 (4.6-6.2); White Blood Count 11.5 K/mm3 (4.4-11.0)
[2021-05-06 05:56] LABS: Anion Gap 9 (5-15); BUN 19 mg/dL (7-18); Calcium,Total 9.4 mg/dL (8.5-10.1); Chloride 97 mmol/L (98-107); Creatinine, Serum 1.19 mg/dL (0.70-1.30); EST Glomerular Filtration Rate 67 mL/min (>60); Est Glom Filt Rate - Afr Amer 81 mL/min (>60); Estimated Creatinine Clearance 61.06 ml/min; Glucose 137 mg/dL (74-106); Potassium 3.6 mmol/L (3.5-5.1); Sodium Level 133 mmol/L (136-145)
[2021-05-06 06:05] LABS: Differential Indicated SCAN CRITERIA MET
[2021-05-06 06:07] LABS: Squamous Epithelial Cells - UA 0 SEEN /hpf (0-5)
[2021-05-06 06:08] LABS: Color, Urine Yellow (Yellow); Glucose, Dipstick Normal (Normal); Ketone-Dipstick Negative (Negative); Leukocyte Esterase-Dipstick 500 /ul (Negative); Nitrite-Dipstick Positive (Negative); Occult Blood-Urine 10 /ul (Negative); Protein-Dipstick Negative (Negative); Urine Bilirubin Dipstick Negative (Negative); Urine Clarity Clear (Clear); Urine Urobilinogen Normal (Normal); Urine pH 6.5 (5.0 - 8.0)
[2021-05-06 06:24] LABS: Differential Comment SCANNED
[2021-05-06 06:26] LABS: Bacteria 4+ /hpf (None Seen); Mucous, Urine 1+ /hpf (<or=2+); Red Blood Cells-Urine 0-5 SEEN /hpf (0-5); White Blood Cells 10-25 SEEN /hpf (0-5)
[2021-05-06 06:46] VITALS: PULSE 84; RESP 15; O2SAT 96
[2021-05-06] MEDS: Cephalexin 250 MG Capsule 500 MG PO (07:02)
== END 2021-05-06 07:10 | disposition home or self-care (01) ==
PROVIDERS: Emergency Provider Emergency Medicine; PCP Family Medicine
DX: N40.1 Benign prostatic hyperplasia with lower urinary tract symptoms (principal); N39.0 Urinary tract infection, site not specified; R33.8 Other retention of urine; K59.00 Constipation, unspecified; R11.2 Nausea with vomiting, unspecified; Z87.891 Personal history of nicotine dependence; Z94.4 Liver transplant status; B18.2 Chronic viral hepatitis C; I10 Essential (primary) hypertension; K21.9 Gastro-esophageal reflux disease without esophagitis
CPT/HCPCS: 51702; 80048; 81001; 85025; 87086; 87088; 87186; 99285

== ENCOUNTER 2025-09-11 20:24 | Emergency (ER) | payer MEDICAID, SELFPAY ==
[2025-09-11 20:25] VITALS: BP 134/85; PULSE 74; RESP 18; TEMP 36; O2SAT 98
[2025-09-11 22:47] VITALS: BMI 24.9
--- OUTSIDE RECORDS SUMMARY | 2025-09-11 23:13 | XMS RPT_ITS | CCD ---
Author Organization [facility] Care Team Providers Care Bushwalking Guide Name Role Phone Giancarlo Kendall MD Primary Care Provider Harshad Osborn MD Unavailable Peyton Peguero RN Unavailable Unavailable Mer Richardson Unavailable GIANCARLO KENDALL MD Primary Care Physician Giancarlo Kendall MD Primary Care Provider Harshad Osborn MD Unavailable Peyton Peguero RN Unavailable Unavailable Mer Richardson Unavailable GIANCARLO KENDALL MD Primary Care Unavailable ELYRIA CRYPTANALYST-PAPER BAG MAKER, December Admitting Unavail able GIANCARLO OVALLES DO Attending Unavailable GIANCARLO OVALLES DO Referring Unavailable ANABELLE MAGAÑA MD Emergency Provider DOCTOR, NO FAMILY Primary Care Provider Unavailmiriam Lowery CRYPTANALYST.Saida LOWERY Unavailable Suppan CRYPTANALYST.SEBASTIÁN, Aylin A Unavailable [phone] Suppshahida CRYPTANALYST.PAPER BAG MAKER, Aylin A Unavailable [phone] Giancarlo Kendall Primary Care Unavailable Carina Miner Attending Unavailable DOCTOR, NO FAMILY Unavailable Unavailable JONNA HOUSE DO Unavailable UMSTEAD DOKAITLINCONNOR Unavailable UMSTEAD DO CONNOR Unavailable GRACIELA TRINIDAD MD Unavailable [phone] Umstlaurent MIRZA, Dr Ley Attending Physician Neeta Ochoa NP Attending Physician Flaquito SKAGGS, Dr Owens Attending Physician Dr Duong Mcgill DO Attending Physician Nadiya De Jesus Attending Physician Julian CODING ADVISOR, Maynor Attending Physician [phone] Isaac CODING ADVISOR, Joaquin Attending Physician [phone] Ladonna RN, MSN, Cely [facility]ending Phys[facility] Attending Physician Sudhir RN, Peyton Unavailable Unavailable Berlin HELLER, Iwona Avendaño Unavailable Unavailable GIANCARLO KENDALL Attending Unavailable FAIZA, GIANCARLO Lara Primary Care Unavailable GIANCARLO KENDALL Attending Unavailable FAIZA, GIANCARLO Lara Primary Care Unavailable FAIZA, GIANCARLO Lara Attending Unavailable FAIZA, GIANCARLO Lara Primary Care Unavailable THOMAS MATUTE Attending Unavailable JUJU, GENE A Referring Unavailable FAIZA, GIANCARLO Lara Primary Care Unavailable JUJU, GENE Miriam Attending Unavailable JUJU, GENE A Referring Unavailable FAIZA, GIANCARLO Lara Primary Care Unavailable 7, SCRIPTING Attending Unavailable REENA HERNANDEZ Attending Unavailable THO DUNNE Attending Unavailable CELY MISHRA Attending Unavailable BRIONNA CID Attending Unavailable GRACIELA TRINIDAD Attending Unavailable NEETA OCHOA Referring Unavailable DOCTOR, NO FAMILY Primary Care Unavailable ANABELLA PORRAS Attending Unavailable PAULSTYONYD, CONNOR Referring Unavailable JOAQUIN DEY Attending Unavailable DOCTOR, NO FAMILY Primary Care Unavailable ANABELLE MAGAÑA Attending Unavailable ARCHANA, ANABELLE Primary Care Unavailable UMSTEAD, CONNOR Admitting Unavailable DUONG MCGILL Attending Unavailable DOCTOR, NO FAMILY Primary Care Unavailable CHRISTIANO MANCIA Attending Unavailable CHRISTIANO MANCIA Referring Unavailable COLT LIMA Attending Unavailable Allergies Allergy Classification Reported Allergen(s) Allergy Type Date of Onset Reaction(s) Facility (20 sources) Acetaminophen; Translations: [ACETAMINOPHEN] Drug Allergy 04-27-20 17 Hives [facility] (20 sources) Acetaminophen / HYDROcodone; Translations: [acetaminophen-hy drocodone] Drug Allergy 08-20-20 09 Itching [facility] (20 sources) HYDROcodone; Translations: [HYDROCODONE] Drug Allergy 04-27-20 17 Hives, Wheal [facility] (20 sources) Ketorolac; Translations: [KETOROLAC] Drug Allergy 11-22-19 22 Unknown [facility] (20 sources) Latex; Translations: [LATEX] Drug Intolerance 04-22-20 13 Rash, Unknown [facility] (20 sources) Morphine; Translations: [MORPHINE] Drug Allergy 08-05-20 19 Hives, Other: See Comments [facility] (20 sources) Vancomycin; Translations: [VANCOMYCIN (BULK)] Drug Allergy 03-26-20 16 Rash, Itching [facility] (3 sources) natural latex rubber Allergy to substance 06-28-20 24 Rash [facility] (1 source) HYDROcodone Drug Allergy 05-06-20 21 [facility] (1 source) Latex Drug allergy (disorder) 05-06-20 21 [facility] (1 source) Morphine Drug Allergy 05-06-20 21 [facility] (1 source) Vancomycin Drug Allergy 05-06-20 21 [facility] (1 source) HYDROcodone Drug Allergy 04-05-20 25 [facility] (1 source) natural latex rubber Drug allergy (disorder) 04-05-20 25 [facility] Medications Current Medications Medication Drug Class(es) Dates Sig (Normalized) Sig (Original) alendronic acid 70 mg oral tablet (20 sources) Bisphosphonate Start: 04-24-2021 End: 02-25-2025 take 1 tablet by mouth every week alendronate (FOSAMAX) 70 mg tablet Indications: Osteoporosis, unspecified osteoporosis type, unspecified pathological fracture presence Take 1 tablet by mouth one time a week. Take with a full glass of water, on an empty stomach; do NOT lie down for 30minutes. On sundays 12 tablet 3 02/26/2024 Active Comment on above: Take 1 tablet by isadora one time a week. Take with a full glass of water, on an empty stomach; do NOT lie down for 30minutes. Take 1 tablet by isadora th one time a week. Take with a full glass of water, on an empty stomach; do NOT lie down for 30minutes. On sundays amoxicillin 875 mg / clavulanate 125 mg oral tablet (2 sources) Penicillin-class Antibacterial Start: 06-03-2022 End: 06-10-2022 take 1 tablet by mouth twice daily amoxicillin-clavula nigel acid (AUGMENTIN) 875-125 mg per tablet Take 1 tablet by mouth twice daily for 7 days. 14 tablet 0 06/03/2022 06/10/2022 Active Comment on above: Take 1 tablet by isadora th twice daily for 7 days. aspirin 81 mg chewable tablet (2 sources) Platelet Aggregation Inhibitor, Nonsteroidal Anti-inflammatory Drug Start: 04-07-2025 take 81 mg by mouth once daily Aspirin Oral (discharge) 658235 (RxNorm) 2025-04-08 Oral 81 milligram daily Active DO [facility] [id number] atorvastatin 40 mg oral tablet (5 sources) HMG-CoA Reductase Inhibitor Start: 04-08-2025 End: 06-07-2025 atorvastatin (LIPITOR) 40 mg tablet Take 40 mg by mouth. 04/08/2025 06/07/2025 Active cholecalciferol 0.05 mg oral tablet (20 sources) Vitamin D Start: 04-08-2025 take 1000 [IU] by mouth once daily Cholecalciferol Oral (discharge) 535089 (RxNorm) 2025-04-08 Oral 1000 unit daily Active DO [facility] [id number] Start: 04-05-2024 cholecalcifero l 25 mcg (1000 intl units) oral capsule Dose : 25 mcg = 1 cap(s), Oral, Daily, # 30 cap(s), 0 Refill(s) Start Date: 04/05/24 Status: Ordered Start: 04-23-2022 take 1 capsule by mo [facility] once daily Cholecalciferol, Vitamin D3, 25 mcg (1,000 unit) cap Take 1 capsule by mouth once daily. 90 capsule 3 04/23/2022 Active Start: 04-24-2021 End: 04-23-2022 take 1 tablet by mouth once daily cholecalciferol (VITAMIN D-3) 5,000 unit tab Take 1 tablet by mouth once daily. 90 tablet 3 04/24/2021 04/23/2022 Discontinued Comment on above: Take 1 tablet by isadora th once daily. Take 1 capsule by mo [facility] once daily. ciprofloxacin 500 mg oral tablet (2 sources) Quinolone Antimicrobial Start: End: take 1 tablet by mouth twice daily ciprofloxacin HCl (CIPRO) 500 mg tablet Take 1 tablet by mouth twice daily for 14 days. 28 tablet 0 11/27/2021 12/11/2021 Active Comment on above: Take 1 tablet by isadora twice daily for 14 days. clopidogrel 75 mg oral tablet (5 sources) P2Y12 Platelet Inhibitor Start: End: take 1 tablet by mouth once Systemic veins: Inferior vena cava: The vessel is normal in size. Measurements Left ventricle Value Ref Aortic valve continued Value Ref EDV 106 ml 62 - 150 Peak grad, S 8.1 mm Hg --------- ESV 25 ml 21 - 61 LVOT/AV, VTI ratio 0.63 --------- EDV/bsa 60 ml/m 2 34 - 74 LIANA, VTI 2.8 cm 2 --------- E', lat michelle, TDI (L) 5.24 cm/sec >=10 LVOT/AV, Vpeak ratio 0.66 --------- E/e', lat michelle, TDI 12.13 LIANA, Vmax 2.84 cm 2 --------- E', med michelle, TDI (L) 6.96 cm/sec >=7 LIANA/bsa, Vmax 1.61 cm 2/m 2 --------- E/e', med michelle, TDI 12.13 E', avg, TDI 6.1 cm/sec Mitral valve Value Ref E/e', avg, TDI 11.967 <=14 Peak E 0.73 m/sec --------- Peak A 0.62 m/sec --------- LVOT Value Ref Mean grad, D 1.0 mm Hg --------- Diam 2.3 cm Peak grad, D 2.1 mm Hg --------- Peak allan, S 1.0 m/sec Peak E/A ratio 1.18 --------- VTI, S 21.2 cm A-VTI 28.6 cm --------- Right ventricle Value Ref Pulmonic valve Value Ref Pressure, S 26 mm Hg Peak v, S 0.88 m/sec --------- RVET 303 ms VTI, S 17.9 cm --------- Accel time 85 ms --------- RVOT Value Ref Peak v, S 0.5 m/sec Aortic root Value Ref VTI, S 12.5 cm Root diam 2.9 cm <4.0 Peak grad, S 1.0 mm Hg S-T junct diam, ED 2.3 cm 2.3 - 3.5 S-T junct diam/bsa, ED 1.3 cm/m 2 1.1 - 1.9 Left atrium Value Ref AP dim, ES 3.81 cm 3.00 - 4.00 Ascending aorta Value Ref AP dim index 2.2 cm/m 2 1.5 - 2.3 AAo AP diam, S 2.9 cm --------- AAo AP diam/bsa, S 1.6 cm/m 2 --------- Aortic valve Value Ref Peak v, S 1.5 m/sec Pulmonary artery Value Ref VTI, S 33.8 cm Pressure, S 26.0 mm Hg --------- Mean grad, S 5.2 mm Hg Legend: (L) and (H) arianna values outside specified reference range. Prepared and electronically signed by Anabella Porras MD 04/06/2025 15:55 CC: NO FAMILY DOCTOR; CONNOR PLATT DO Technologist: RULA BENNETT Dictated By: ANABELLA PORRAS Signed Date/Time: 04/06/25, 1501 This report was electronically signed in another vendor system Dictated By: ANABELLA PORRAS Invalid Interpretation Code [facility] Work Phone: [email or web address] crypted=[id number] [id number] Invalid Interpretation Code [facility] Work Phone: [facility] Name: ROBYNTROY Sandi [address] [place] [address] Phys: [place] [address] : 1965 Age: 60 Acct: [id number] Loc: ER MRN/Unit No.: [id number] Status: REG ER Exam Date: 04/05/25 Accession Number: [id number] Exam: [id number] RAD/XR Chest 2V PA Lat XR Chest 2V PA Lat XR Chest 2V PA Lat, 04/05/2025 11:58 PM EDT, [facility] KENNY ROACH INDICATION: cp, sob COMPARISON: None available. TECHNIQUE: PA and lateral upright Findings: Cardiomediastinal silhouette: Normal Pulmonary vasculature: Normal Lung parenchyma: Negative Pleural spaces: Negative Impression: No active cardiopulmonary disease evident CC: JONNA HOUSE; KENNY ROACH; NO FAMILY DOCTOR Technologist: LULU SANTOS Dictated By: JAYRO HUBER Signed Date/Time: 04/06/25, 0152 This report was electronically signed in another vendor system Dictated By: JAYRO HUBER Invalid Interpretation Code [facility] Work Phone: [email or web address] crypted=[id number] [id number] Invalid Interpretation Code [facility] Work Phone: Nucleated RBC Auto (Bld) [#/ Vol]Ordered By: CONNOR UMSTEAD on 04-06-2025 Nucleated RBC (Bld) [#/Vol] 0.00 10*3/uL <0 [facility] Nucleated RBC/100 WBC Auto ( Bld) [Ratio]Ordered By: CONNOR UMSTEAD on 04-06-2025 Nucleated RBC/100 WBC (Bld) [Ratio] 0.0 /100{WBC} <0 [facility] Platelets Auto (Bld) [#/Vol] Ordered By: CONNOR UMSTEAD on 04-06-2025 Platelets (Bld) [#/Vol] 109 10*3/uL Low 130-440 [facility] RBC Auto (Bld) [#/Vol]Ordere d By: CONNOR UMSTEAD on 04-06-2025 RBC (Bld) [#/Vol] 4.74 10*6/uL 4.40-5.90 [facility] Serum or plasma alanine prado otransferase measurement (enzymatic activity/volume)Ordered By: CONNOR UMSTEAD on 04-06-2025 ALT [Catalytic activity/Vol] 22 U/L 10-50 [facility] Serum or plasma albumin kim urement (mass/volume)Ordered By: CONNOR UMSTEAD on 04-06-2025 Albumin [Mass/Vol] 4.3 g/dL 4.0-4.9 [facility] Serum or plasma alkaline kingsley sphatase measurement (enzymatic activity/volume)Ordered By: CONNOR UMSTEAD on 04-06-2025 ALP [Catalytic activity/Vol] 96 U/L 40-129 [facility] Serum or plasma anion gapOrd ered By: CONNOR PLATT on 04-06-2025 Anion gap [Moles/Vol] 14 mmol/L 9-15 [facility] Serum or plasma aspartate am inotransferase measurement (enzymatic activity/volume)Ordered By: CONNORVICKI PLATT on 04-06-2025 AST [Catalytic activity/Vol] 32 U/L 10-50 [facility] Serum or plasma calcium kim urement (mass/volume)Ordered By: CONNORVICKI PLATT on 04-06-2025 Calcium [Mass/Vol] 8.7 mg/dL Low 8.8-10.2 [facility] Serum or plasma cardiac hear t disease risk ratioOrdered By: CONNORVICKI PLATT on 04-06-2025 Cardiac heart disease risk [Ratio] 3.27 [facility] Comment on above: RISK NORMALS MEN WOM EN1/[address] 23[address]39 11[address]04 TRIGLYCERIDES >400 MG/DL MAY CAUSE INCONSISTENCIES IN THE LDL. Serum or plasma cardiac trop onin T measurement by high sensitivity method (mass/volumOrdered By: GRACIELA TRINIDAD on 04-06-2025 Troponin T.cardiac High sensitivity method [Mass/Vol] 49 ng/L High 6-22 [facility] Comment on above: <6 ng/L Negative>/= 6 - <52 ng/L Suggest 1-hour delta hs- cTn>/= 52 ng/L Consistent with Devang distinguish between acute and chronic elevations of Cardiac Troponin (cTn), the [place] Definition of IA stresses the need for serial testing to detect a rise and/or fall of cTn above the 99th percentile upper reference limit of 22 ng/L, males and 14 ng/L, females consistent with clinical assessment, including ischemic symptoms and electrocardiographic changes Serum or plasma chloride yessica surement (moles/volume)Ordered By: CONNOR PLATT on 04-06-2025 Chloride [Moles/Vol] 105 mmol/L 98-107 [facility] Serum or plasma cholesterol in HDL measurement (mass/volume)Ordered By: CONNOR PLATT on 04-06-2025 Cholesterol in HDL [Mass/Vol] 63 mg/dL >61 [facility] Serum or plasma cholesterol measurement (mass/volume)Ordered By: CONNOR PLATT on 04-06-2025 Cholesterol [Mass/Vol] 206 mg/dL High 0-199 [facility] Serum or plasma creatine kin ase MB (CKMB)/total creatine kinase (CK) ratio by calculaOrdered By: CONNOR PLATT on 04-06-2025 CK.MB Calc [Catalytic fraction] 2.4 % 0-2.5 [facility] Comment on above: INTERPRETATION: MB(n g/ml) RI (%) >10 >2.5 Cardiac/Myocardial Damage<10 <2.5 No Cardiac Damage>10 <2.5 Skeletal Muscle Damage<10 >2.5 Borderline; Probable Cardiac Serum or plasma creatine kin ase MB measurement (mass/volume)Ordered By: CONNOR PLATT on 04-06-2025 CK.MB [Mass/Vol] 6.2 ng/mL 0.0-10.4 [facility] Serum or plasma creatine kin ase measurement (enzymatic activity/volume)Ordered By: CONNOR PLATT on 04-06-2025 CK [Catalytic activity/Vol] 263 U/L 39-308 [facility] Serum or plasma creatinine m easurement (mass/volume)Ordered By: CONNOR PLATT on 04-06-2025 Creatinine [Mass/Vol] 0.95 mg/dL 0.67-1.17 [facility] Serum or plasma direct bilir ubin measurement (mass/volume)Ordered By: CONNOR PLATT on 04-06-2025 Bilirubin.direct [Mass/Vol] 0.4 mg/dL High 0.0-0.3 [facility] Serum or plasma glucose kim urement (mass/volume)Ordered By: CONNOR PLATT on 04-06-2025 Glucose [Mass/Vol] 83 mg/dL 70-100 [facility] Comment on above: INTREPRETATION FOR F ASTING BLOOD GLUCOSE: 70-100 mg/dl NORMAL GLUCOSE [id number] mg/dl IMPAIRED FASTING GLUCOSE (PRE-DIABETES)>125 mg/dl DIABETES - ON MORE THAN ONE TESTING Serum or plasma indirect daniel irubin measurement (mass/volume)Ordered By: CONNOR PLATT on 04-06-2025 Bilirubin.indirect [Mass/Vol] 0.6 mg/dL 0.0-1.1 [facility] Serum or plasma magnesium me asurement (mass/volume)Ordered By: CONNOR PLATT on 04-06-2025 Magnesium [Mass/Vol] 2.0 mg/dL 1.6-2.4 [facility] Serum or plasma potassium me asurement (moles/volume)Ordered By: CONNORVICKI PLATT on 04-06-2025 Potassium [Moles/Vol] 3.8 mmol/L 3.6-5.0 [facility] Serum or plasma protein kim urement (mass/volume)Ordered By: CONNOR PLATT on 04-06-2025 Protein [Mass/Vol] 7.0 g/dL 6.4-8.3 [facility] Serum or plasma sodium measu rement (moles/volume)Ordered By: CONNOR PLATT on 04-06-2025 Sodium [Moles/Vol] 138 mmol/L 136-145 [facility] Serum or plasma thyroid stim ulating hormone (TSH) measurementOrdered By: CONNOR PLATT on 04-06-2025 TSH Qn 0.3630 uIU/mL 0.270-4.200 [facility] Serum or plasma total biliru bin measurement (mass/volume)Ordered By: CONNOR PLATT on 04-06-2025 Bilirubin [Mass/Vol] 1.0 mg/dL 0.2-1.2 [facility] Serum or plasma total carbon dioxide measurement (moles/volume)Ordered By: CONNOR PLATT on 04-06-2025 CO2 [Moles/Vol] 19 mmol/L Low 22-29 [facility] Serum or plasma triglyceride measurement (mass/volume)Ordered By: CONNOR PLATT on 04-06-2025 Triglyceride [Mass/Vol] 101 mg/dL <150 [facility] Serum or plasma urea nitroge n measurement (mass/volume)Ordered By: CONNOR PLATT on 04-06-2025 Urea nitrogen [Mass/Vol] 22.3 mg/dL 8.0-23.0 [facility] Thyroid Function Cascadeon 0 04-06-2025 Thyroid Stimulating Hormone 0.3630 uIU/mL Normal 0.270-4.200 [facility] Comment on above: Order Comment: Comme nts: 1 sample(s), Collect by: Lab.Comments: 1 sample(s), Collect by: Lab.Comments: 1 sample(s), Collect by: Lab. Performed By: #### C K.MB, LIVP6, MG, TFC, CP1, TPNT-hs, CHEM7 ####[facility] [address] [place] [address] ,Juan Carlos Mast M.D. FCAP, FASCP Thyroid Stimulating Hormone Normal 0.270-4.200 [facility] Comment on above: Order Comment: Comme nts: 1 sample(s), Collect by: Lab.Comments: 1 sample(s), Collect by: Lab.Comments: 1 sample(s), Collect by: Lab.Comments: 1 sample(s), Collect by: Lab. Result Comment: ADDE D TO [id number] Performed By: #### A B #### [facility] [address] [place] [address] , Juan Carlos Mast M.D. FCAP, FASCP Troponin T SerPl HS-mCncon 0 04-06-2025 Troponin T.cardiac High sensitivity method [Mass/Vol] 38.02343 ng/L Invalid Interpretation Code <23 ng/L [facility] Work Phone: Troponin T.cardiac High sensitivity method [Mass/Vol] 49.64527 ng/L Invalid Interpretation Code <23 ng/L [facility] Work Phone: Troponin T.cardiac High sensitivity method [Mass/Vol] 52.91000 ng/L Invalid Interpretation Code <23 ng/L [facility] Work Phone: Troponin T.cardiac High sensitivity method [Mass/Vol] 46.21918 ng/L Invalid Interpretation Code <23 ng/L [facility] Work Phone: [facility]V Echocardiogram Completeo n 04-06-2025 USV Echocardiogram Complete [facility] Name: TROY CARLSON [address] [place] [address] Phys: [place] [address] : 1965 Age: 60 Acct: [id number] Loc: [facility].OBSPAV MRN/Unit No.: [id number] Status: ADM ZORAIDA Exam Date: 04/06/25 Accession Number: [id number] Exam: US/USV Echocardiogram Complete [id number] *[facility]* [place] [address] Transthoracic Echocardiogram Patient: Troy Carlson Height: 66.9 in / 170 cm Study Date: 04/06/2025 E : 1965 Weight: 144.7 lb / 65.8 kg Age: 60 BSA: 1.77 m 2 Gender: M BP: 158 / 79 *Ordering Physician: * Connor Platt *Reading Physician: * Anabella Porras MD *Latex [employer]am Worker: * Rula Bennett Indications: Chest Pain, unspecified. History: PMH: GERD. COPD. Afib. Risk factors: Hypertension. Study data: Transthoracic echocardiogram. Procedure: Transthoracic echocardiography was performed. Image quality was good. Complete 2D, complete spectral Doppler, and color Doppler. Location: Echo laboratory. Patient status: Inpatient. HR: 57 bpm. BMI: 22.8 kg/m 2. Study status: Routine. Conclusions Summary: 1. Left ventricle: The cavity size is normal. Wall thickness is normal. Systolic function is normal by the biplane method of disks. The estimated ejection fraction is 60-65%. Wall motion is normal; there are no regional wall motion abnormalities. Left ventricular diastolic function parameters are normal. 2. Right ventricle: The cavity size is normal. Wall thickness is normal. Systolic function is normal. Systolic pressure is within the normal range. 3. Pericardium, extracardiac: There is no pericardial effusion. Findings Left ventricle: The cavity size is normal. Wall thickness is normal. Systolic function is normal by the biplane method of disks. The estimated ejection fraction is 60-65%. Wall motion is normal; there are no regional wall motion abnormalities. Left ventricular diastolic function parameters are normal. Right ventricle: The cavity size is normal. Wall thickness is normal. Systolic function is normal. Systolic pressure is within the normal range. The RV pressure during systole by Doppler is 26 mm Hg. Left atrium: The atrium is normal in size. Right atrium: The atrium is normal in size. Mitral valve: The leaflets are mildly thickened. There is no evidence of stenosis. There is mild regurgitation. The mean diastolic gradient is 1.0 mm Hg. Aortic valve: The valve is trileaflet. The leaflets are moderately thickened and mildly calcified. There is no evidence of stenosis. There is no significant regurgitation. The peak systolic velocity is 1.5 m/sec. The ratio of LVOT to aortic valve peak velocity is 0.66. The mean systolic gradient is 5.2 mm Hg. The peak systolic gradient is 8.1 mm Hg. Tricuspid valve: The leaflets are mildly thickened. There is no evidence of stenosis. There is mild regurgitation. Pulmonic valve: The leaflets are mildly thickened. There is no evidence of stenosis. There is mild regurgitation. Aorta: The aortic root is not dilated. Pericardium: There is no pericardial effusion. Systemic veins: Inferior vena cava: The vessel is normal in size. Measurements Left ventricle Value Ref Aortic valve continued Value Ref EDV 106 ml 62 - 150 Peak grad, S 8.1 mm Hg --------- ESV 25 ml 21 - 61 LVOT/AV, VTI ratio 0.63 --------- EDV/bsa 60 ml/m 2 34 - 74 LIANA, VTI 2.8 cm 2 --------- E', lat michelle, TDI (L) 5.24 cm/sec >=10 LVOT/AV, Vpeak ratio 0.66 --------- E/e', lat michelle, TDI 12.13 LIANA, Vmax 2.84 cm 2 --------- E', med michelle, TDI (L) 6.96 cm/sec >=7 LIANA/bsa, Vmax 1.61 cm 2/m 2 --------- E/e', med michelle, TDI 12.13 E', avg, TDI 6.1 cm/sec Mitral valve Value Ref E/e', avg, TDI 11.967 <=14 Peak E 0.73 m/sec --------- Peak A 0.62 m/sec --------- LVOT Value Ref Mean grad, D 1.0 mm Hg --------- Diam 2.3 cm Peak grad, D 2.1 mm Hg --------- Peak allan, S 1.0 m/sec Peak E/A ratio 1.18 --------- VTI, S 21.2 cm A-VTI 28.6 cm --------- Right ventricle Value Ref Pulmonic valve Value Ref Pressure, S 26 mm Hg Peak v, S 0.88 m/sec --------- RVET 303 ms VTI, S 17.9 cm - (more content not included)... Normal [facility] WBC Auto (Bld) [#/Vol]Ordere d By: CONNOR PLATT on 04-06-2025 WBC (Bld) [#/Vol] 5.4 10*3/uL 3.9-10.6 [facility] XR Chest 2V PA [place] 025 XR Chest 2V PA [facility] SYST EM [facility] Name: TROY CARLSON [address] [place] [address] Phys: [place] [address] : 1965 Age: 60 Acct: [id number] Loc: ER MRN/Unit No.: [id number] Status: REG ER Exam Date: 04/05/25 Accession Number: [id number] Exam: RAD/XR Chest 2V PA Lat XR Chest 2V PA Lat XR Chest 2V PA Lat, 04/05/2025 11:58 PM EDT, [facility] KENNY ROACH INDICATION: cp, sob COMPARISON: None available. TECHNIQUE: PA and lateral upright Findings: Cardiomediastinal silhouette: Normal Pulmonary vasculature: Normal Lung parenchyma: Negative Pleural spaces: Negative Impression: No active cardiopulmonary disease evident CC: JONNA HOUSE; KENNY ROACH; NO FAMILY DOCTOR Technologist: LULU SANTOS Dictated By: JAYRO HUBER Signed Date/Time: 04/06/25, 0152 This report was electronically signed in another vendor system Normal [facility] af-Mupvhzx-Loriganqrg 2024 td-Wbgwhnx-Rhtgdiot 49 ng/L High <23 [facility] Comment on above: Order Comment: Comme nts: 1 sample(s), Collect by: Lab. Result Comment: <6 n g/L Negative >/= 6 - <52 ng/L Suggest 1-hour delta hs-cTn >/= 52 ng/L Consistent with IA To distinguish between acute and chronic elevations of Cardiac Troponin (cTn), the [place] Definition of IA stresses the need for serial testing to detect a rise and/or fall of cTn above the 99th percentile upper reference limit of 22 ng/L, males and 14 ng/L, females consistent with clinical assessment, including ischemic symptoms and electrocardiographic changes Performed By: #### T PNT-hs ####[facility] [address] [place] [address] ,Juan Carlos Mast M.D. FCAP, FASCP bq-Mobpcgd-Grcttbfj 52 ng/L Critically high <23 [facility] Comment on above: Order Comment: Comme nts: 1 sample(s), Collect by: Lab.Comments: 1 sample(s), Collect by: Lab.Comments: 1 sample(s), Collect by: Lab. Result Comment: Adrienne ravi Value called to HAYLIE NORWOOD, DATE: 2025-04-06 06:53:48 BY:JENNYLAN Read Back? YES <6 ng/L Negative >/= 6 - <52 ng/L Suggest 1-hour delta hs-cTn >/= 52 ng/L Consistent with IA To distinguish between acute and chronic elevations of Cardiac Troponin (cTn), the [place] Definition of IA stresses the need for serial testing to detect a rise and/or fall of cTn above the 99th percentile upper reference limit of 22 ng/L, males and 14 ng/L, females consistent with clinical assessment, including ischemic symptoms and electrocardiographic changes Performed By: #### C K.MB, LIVP6, MG, TFC, CP1, TPNT-hs, CHEM7 ####[facility] [address] [place], [place] [id number] ,Juan Carlos Mast M.D. FCAP, FASCP wq-Wfjuwup-Dulegyax 46 ng/L High <23 [facility] Comment on above: Result Comment: <6 n g/L Negative >/= 6 - <52 ng/L Suggest 1-hour delta hs-cTn >/= 52 ng/L Consistent with IA To distinguish between acute and chronic elevations of Cardiac Troponin (cTn), the [place] Definition of IA stresses the need for serial testing to detect a rise and/or fall of cTn above the 99th percentile upper reference limit of 22 ng/L, males and 14 ng/L, females consistent with clinical assessment, including ischemic symptoms and electrocardiographic changes Performed By: #### T PNT-hs ####[facility] [address] [place], [place] [id number] ,Juan Carlos Mast M.D. FCAP, FASCP gn-Lpahkjl-Mhqbvfme 38 ng/L High <23 [facility] Comment on above: Result Comment: <6 n g/L Negative >/= 6 - <52 ng/L Suggest 1-hour delta hs-cTn >/= 52 ng/L Consistent with IA To distinguish between acute and chronic elevations of Cardiac Troponin (cTn), the [place] Definition of IA stresses the need for serial testing to detect a rise and/or fall of cTn above the 99th percentile upper reference limit of 22 ng/L, males and 14 ng/L, females consistent with clinical assessment, including ischemic symptoms and electrocardiographic changes Performed By: #### A B #### [facility] [address] [place] [address] , Juan Carlos Mast M.D. FCAP, FASCP ys-Wizzdbh-Fjavajux 35 ng/L High <23 [facility] Comment on above: Result Comment: <6 n g/L Negative >/= 6 - <52 ng/L Suggest 1-hour delta hs-cTn >/= 52 ng/L Consistent with IA To distinguish between acute and chronic elevations of Cardiac Troponin (cTn), the [place] Definition of IA stresses the need for serial testing to detect a rise and/or fall of cTn above the 99th percentile upper reference limit of 22 ng/L, males and 14 ng/L, females consistent with clinical assessment, including ischemic symptoms and electrocardiographic changes Performed By: #### A B #### [facility] [address] [place] [address] , Juan Carlos Mast M.D. FCAP, FASCP proBNPon 04-06-2025 Natriuretic peptide B (Bld) [Mass/Vol] 478 pg/mL Normal 0-900 [facility] Comment on above: Result Comment: Hear t failure is unlikely with results <300 pg/mL with 98% predictive value for any age group. Performed By: #### A B #### [facility] [address] [place] [address] , Juan Carlos Mast M.D. FCAP, FASCP CBC W Differential panel, me thod unspecified (Bld)on 04-05-2025 Basophils (Bld) [#/Vol] 0.89991 10*3/uL Normal 0.0 - 0.2 10*3/uL [facility] Work Phone: Basophils/100 WBC (Bld) 0.33127 % Normal 0 - 1.0 % [facility] Work Phone: Differential cell count method Nom (Bld) Auto Differential Invalid Interpretation Code [facility] Work Phone: Eosinophils (Bld) [#/Vol] 0.62349 10*3/uL Normal 0.0 - 0.5 10*3/uL [facility] Work Phone: Eosinophils/100 WBC (Bld) 0.77736 % Normal 0.0 - 3.0 % [facility] Work Phone: Erythrocyte distribution width (RBC) [Ratio] 13.76905 % Normal 11.5 - 14.5 [facility] Work Phone: Hematocrit (Bld) [Volume fraction] 47.15473 % Normal 40.0 - 52.0 % [facility] Work Phone: Hemoglobin (Bld) [Mass/Vol] 17.60113 g/dL Normal 13.3 - 17.7 g/dL [facility] Work Phone: Immature granulocytes (Bld) [#/Vol] 0.45449 10*3/uL Normal 0.01 - 0.2 10*3/uL [facility] Work Phone: Immature granulocytes/100 WBC (Bld) 0.16648 % Normal 0 - 0.9 % [facility] Work Phone: Lymphocytes (Bld) [#/Vol] 0.15785 10*3/uL Invalid Interpretation Code 1.5 - 4.0 10*3/uL [facility] Work Phone: Lymphocytes/100 WBC (Bld) 7.96572 % Invalid Interpretation Code 20.0 - 40.0 % [facility] Work Phone: MCH (RBC) [Entitic mass] 32.98894 pg Normal 27.0 - 40.0 pg [facility] Work Phone: MCHC (RBC) [Mass/Vol] 35.85819 g/dL Normal 31.0 - 36.0 g/dL [facility] Work Phone: MCV (RBC) [Entitic vol] 90.86972 CU uM Normal 80.0 - 100.0 CU uM [facility] Work Phone: Monocytes (Bld) [#/Vol] 0.47200 10*3/uL Normal 0.2 - 0.8 10*3/uL [facility] Work Phone: Monocytes/100 WBC (Bld) 5.40226 % Normal 4.0 - 10.0 % [facility] Work Phone: Neutrophils (Bld) [#/Vol] 5.88467 10*3/uL Normal 2.0 - 7.0 10*3/uL [facility] Work Phone: Neutrophils/100 WBC (Bld) 86.39688 % Invalid Interpretation Code 54.0 - 62.0 % [facility] Work Phone: Nucleated RBC (Bld) [#/Vol] 0.56375 10*3/uL Invalid Interpretation Code [facility] Work Phone: Nucleated RBC/100 WBC (Bld) [Ratio] 0.26522 /100WBC Invalid Interpretation Code [facility] Work Phone: Platelets (Bld) [#/Vol] 136.98960 10*3/uL Normal 130 - 440 10*3/uL [facility] Work Phone: RBC (Bld) [#/Vol] 5.49941 10*6/uL Normal 4.40 - 5.90 10*6/uL [facility] Work Phone: WBC (Bld) [#/Vol] 6.43869 10*3/uL Normal 3.9 - 1 0.6 10*3/uL [facility] Work Phone: CBC With Differentialon 07-2 -2024 Basophils Absolute Auto 0.01 10*3/uL Normal 0.0-0.2 [facility] Comment on above: Performed By: #### C BCD ####[facility] [address] [place] [address] ,Juan Carlos Mast M.D. FCAP, FASCP Basophils/100 WBC (Bld) 0.1 % Normal 0-1.0 [facility] Comment on above: Performed By: #### C BCD ####[facility] [address] [place], [place] [id number] ,Juan Carlos Mast M.D. FCAP, FASCP Differential Type? Auto Differential Normal [facility] Comment on above: Performed By: #### C BCD ####[facility] [address] [place] [id number] ,Juan Carlos Mast M.D. FCAP, FASCP Eosinophils (Bld) [#/Vol] 0.02 10*3/uL Normal 0.0-0.5 [facility] Comment on above: Performed By: #### C BCD ####[facility] [place], [place] [id number] ,Juan Carlos Mast M.D. FCAP, FASCP Eosinophils/100 WBC (Bld) 0.3 % Normal 0.0-3.0 [facility] Comment on above: Performed By: #### C BCD ####[facility] [address] [place] [id number] ,Juan Carlos Mast M.D. FCAP, FASCP Hematocrit (Bld) [Volume fraction] 47.5 % Normal 40.0-52.0 [facility] Comment on above: Performed By: #### C BCD ####[facility] [address] [place] [id number] ,Juan Carlos Mast M.D. FCAP, FASCP Hemoglobin (Bld) [Mass/Vol] 17.0 g/dL Normal 13.3-17.7 [facility] Comment on above: Performed By: #### C BCD ####[facility] [address] [place], [place] [id number] ,Juan Carlos Mast M.D. FCAP, FASCP Immature Gran Absolute Auto 0.02 10*3/uL Normal 0.01-0.2 [facility] Comment on above: Performed By: #### C BCD ####[facility] [address] [place], [place] [id number] ,Juan Carlos Mast M.D. FCAP, FASCP Immature granulocytes/100 WBC (Bld) 0.3 % Normal 0-0.9 [facility] Comment on above: Performed By: #### C BCD ####[facility] [place], [place] [id number] ,Juan Carlos Mast M.D. FCAP, FASCP Lymphocytes (Bld) [#/Vol] 0.54 10*3/uL Low 1.5-4.0 [facility] Comment on above: Performed By: #### C BCD ####[facility] [place] [id number] ,Juan Carlos Mast M.D. FCAP, FASCP Lymphocytes/100 WBC (Bld) 7.8 % Low 20.0-40.0 [facility] Comment on above: Performed By: #### C BCD ####[facility] [place], [place] [id number] ,Juan Carlos Mast M.D. FCAP, FASCP MCH (RBC) [Entitic mass] 32.4 pg Normal 27.0-40.0 [facility] Comment on above: Performed By: #### C BCD ####[facility] [address] [place], [place] [address] ,Juan Carlos Mast M.D. FCAP, FASCP Mean Corpusc Hgb Concentration 35.8 g/dL Normal 31.0-36.0 [facility] Comment on above: Performed By: #### C BCD ####[facility] [place], [place] [id number] ,Juan Carlos Mast M.D. FCAP, FASCP Mean Corpuscular Volume 90.6 CU uM Normal 80.0-100.0 [facility] Comment on above: Performed By: #### C BCD ####[facility] [address] [place], [place] [id number] ,Juan Carlos Mast M.D. FCAP, FASCP Monocytes (Bld) [#/Vol] 0.35 10*3/uL Normal 0.2-0.8 [facility] Comment on above: Performed By: #### C BCD ####[facility] [place] [id number] ,Juan Carlos Mast M.D. FCAP, FASCP Monocytes/100 WBC (Bld) 5.1 % Normal 4.0-10.0 [facility] Comment on above: Performed By: #### C BCD ####[facility] [address] [place] [id number] ,Juan Carlos Mast M.D. FCAP, FASCP Neutrophils Absolute Auto 5.97 10*3/uL Normal 2.0-7.0 [facility] Comment on above: Performed By: #### C BCD ####[facility] [place] [id number] ,Juan Carlos Mast M.D. FCAP, FASCP Neutrophils/100 WBC (Bld) 86.4 % High 54.0-62.0 [facility] Comment on above: Performed By: #### C BCD ####[facility] [address] [place] [id number] ,Juan Carlos Mast M.D. FCAP, FASCP Nucleated RBC (Bld) [#/Vol] 0.00 10*3/uL Normal -0 [facility] Comment on above: Performed By: #### C BCD ####[facility] [address] [place] [id number] ,Juan Carlos Mast M.D. FCAP, FASCP Nucleated RBC's % 0.0 /100WBC Normal -0 [facility] Comment on above: Performed By: #### C BCD ####[facility] [address] [place] [address] ,Juan Carlos Mast M.D. FCAP, FASCP Platelets (Bld) [#/Vol] 136 10*3/uL Normal 130-440 [facility] Comment on above: Performed By: #### C BCD ####[facility] [address] [place] [address] ,Juan Carlos Mast M.D. FCAP, FASCP RBC (Bld) [#/Vol] 5.24 10*6/uL Normal 4.40-5.90 [facility] Comment on above: Performed By: #### C BCD ####[facility] [address] [place], [place] [id number] ,Juan Carlos Mast M.D. FCAP, FASCP Red Cell Distribution 13.4 Normal 11.5-14.5 [facility] Comment on above: Performed By: #### C BCD ####[facility] [address] [place], [place] [id number] ,Juan Carlos Mast M.D. FCAP, FASCP WBC (Bld) [#/Vol] 6.9 10*3/uL Normal 3.9-10.6 [facility] Comment on above: Performed By: #### C BCD ####[facility] [address] [place], [place] [id number] ,Juan Carlos Mast M.D. FCAP, FASCP Comprehensive metabolic 2000 panelon 04-05-2025 Albumin [Mass/Vol] 5.43573 g/dL Invalid Interpretation Code 4.0 - 4.9 g/dL [facility] Work Phone: ALP [Catalytic activity/Vol] 110.45924 U/L Normal 40 - 129 U/L [facility] Work Phone: ALT [Catalytic activity/Vol] 26.90537 U/L Normal 10 - 50 U/L [facility] Work Phone: Anion gap [Moles/Vol] 15.08438 mmol/L Normal 9 - 15 mmol/L [facility] Work Phone: AST [Catalytic activity/Vol] 30.33621 U/L Normal 10 - 50 U/L [facility] Work Phone: Bilirubin [Mass/Vol] 1.25168 mg/dL Normal 0.2 - 1.2 mg/dL [facility] Work Phone: Calcium [Mass/Vol] 9.68247 mg/dL Normal 8.8 - 10 .2 mg/dL [facility] Work Phone: Chloride [Moles/Vol] 99.07500 mmol/L Normal 98 - 107 mmol/L [facility] Work Phone: CO2 [Moles/Vol] 22.27046 mmol/L Normal 22 - 29 mmol/L [facility] Work Phone: Creatinine [Mass/Vol] 1.13630 mg/dL Normal 0.67 - 1.17 mg/dL [facility] Work Phone: GFR/1.73 sq M.predicted (S/P/Bld) [Vol rate/Area] mL/min Invalid Interpretation Code [facility] Work Phone: Glucose [Mass/Vol] 136.70260 mg/dL Invalid Interpretation Code 70 - 100 mg/dL [facility] Work Phone: Potassium [Moles/Vol] 4.76916 mmol/L Normal 3.6 - 5.0 mmol/L [facility] Work Phone: Protein [Mass/Vol] 8.84425 g/dL Normal 6.4 - 8.3 g/dL [facility] Work Phone: Sodium [Moles/Vol] 136.33124 mmol/L Normal 136 - 145 mmol/L [facility] Work Phone: Urea nitrogen [Mass/Vol] 24.96448 mg/dL Invalid Interpretation Code 8.0 - 23.0 mg/dL [facility] Work Phone: EKGon 04-05-[address] [facility] EM [facility] Name: TROY CARLSON [address] [place] [address] Phys: [place] [address] : 1965 Age: 60 Acct: [id number] Loc: [facility].OBSPAV MRN/Unit No.: [id number] Status: DIS ZORAIDA Exam Date: 04/05/25 Accession Number: [id number] Exam: EKG/EKG [facility] - ED Test Date: 2025-04-05 Pat Name: TROY CARLSON Department: ER Room: Gender: Male Crop Quantitative Geneticist: SOHAIL : 1965 Requested By: KENNY ROACH Order Number: [id number] Reading MD: Jaiden House Measurements Intervals [place] Rate: 69 P: -18 DE: 149 QRS: -4 QRSD: 106 T: 25 QT: 430 QTc: 461 Interpretive Statements Sinus rhythm Probable left ventricular hypertrophy Electronically Signed On 04-10-2025 15:23:08 EDT by Jaiden House [email or web address] 04/10/25 1523 CC: Technologist: Interpreted By: JONNA HOUSE Interpreted Date/Time: This report was electronically signed in another vendor system Normal [facility] NT-proBNP SerPl-mCncon 04-05 Natriuretic peptide.B prohormone N-Terminal [Mass/Vol] 478.59944 pg/mL Normal 0 - 900 pg/mL [facility] Work Phone: PDOCon 04-05-2025 PDOC ROOM: OVER ED ADM: 04/06/25 DIS: PATIENT NAME: TROY CARLSON : 1965 AGE: 4 2 RACE: W SEX: M ED PHYSICIAN: JONNA HOUSE DO HPI Time Seen by Provider: 04/05/25 23:39 Stated Complaint: CHEST PAIN Chief Complaint: Chest Pain Have you Traveled outside of the [place] In the Past Year?: No Mode of Arrival: Ambulance Information Obtained From: Patient and EMS HPI Notes: 60-year-old male with a history of GERD and liver transplant reports to the emergency department for evaluation of chest pain and shortness of breath has been going on for 2 weeks, worse approximately 2 hours ago which has resolved since being at the emergency department, but reports he still feels short of breath. Reports multiple episodes of vomiting today. Denies fever or cough or sick contacts. Review of systems is negative other than as documented above GENERAL Vital signs reviewed, Patient appears uncomfortable, in no acute distress, alert, well- kempt, well-nourished, pleasant, speaking in full sentences HEAD atraumatic, normocephalic EYES conjunctiva are normal. Miosis ENT Mouth normal to inspection, moist mucus membranes NECK no JVD. Tenderness to palpation over the musculature on the right anterior neck RESPIRATORY CHEST breath sounds normal, good air entry bilaterally, no respiratory distress CARDIOVASCULAR RRR, normal S1, S2, no rubs, no gallop, no murmurs ABDOMINAL soft, non-distended, non-tender EXTREMITIES no edema of the upper or lower extremities NEURO cranial nerves II-XII grossly normal, no deficits in strength or sensation in the upper or lower extremities bilaterally Differential Dx includes but is not limited to: ACS, arrhythmia, pneumonia, CHF, pericardial effusion, pericarditis. Given Tylenol, fluids, Zofran, Phenergan. Received aspirin by EMS prior to arrival Diagnostic studies: The diagnostic tests were reviewed by myself and discussed with the patient/family and are all listed in labs and imaging section of the medical record Interpretation of labs reviewed by me: Troponin 35, 38, 46 Interpretation of imaging/studies reviewed by me: Chest x-ray nonacute, EKG without ischemic changes I discussed and explained the findings and results with patient. ED impression is elevated troponin measurement, uptrending. Admitted to hospital medicine team for further cardiac evaluation, trending of troponins. Patient was amenable to this plan. Allergies hydrocodone (From Vicodin) Allergy (Verified 04/05/25 23:41) Rash Latex, Natural Rubber Allergy (Verified 04/05/25 23:41) Rash Ambulatory Orders pantoprazole 40 mg tablet,delayed release 40 mg PO DAILY 06/13/17 cholecalciferol (vitamin D3) 25 mcg (1,000 unit) capsule 1,000 unit PO DAILY 04/06/25 garlic 1 mg capsule 1 mg PO DAILY 04/06/25 lisinopril 5 mg tablet 5 mg PO DAILY 04/06/25 metoprolol succinate 25 mg tablet,extended release 24 hr 25 mg PO DAILY 04/06/25 paroxetine HCl 30 mg tablet 30 mg PO DAILY 04/06/25 tacrolimus 1 mg capsule, immediate-release 1.5 mg PO BID 04/06/25 REVIEW OF SYSTEMS Have you completed Review Of Systems: Yes Exam PHYSICAL EXAM VITAL SIGNS: Vital Signs - 24 hr 04/05/25 23:33 04/05/25 23:38 04/06/25 01:19 Temperature: 98.2 F 98.2 F Pulse Rate: 75 75 58 L Respiratory Rate: 18 18 17 Blood Pressure: 142/92 H 142/92 H 158/67 H O2 Sat By Pulse Oximetry: 97 96 04/06/25 02:07 04/06/25 03:06 Temperature: Pulse Rate: 55 L 57 L Respiratory Rate: 18 17 Blood Pressure: 135/60 158/79 H O2 Sat By Pulse Oximetry: 98 96 Have you completed the Physical Exam?: Yes PATIENT HISTORY Neurological History Neurologic Medical History:: Seizure Cardiac History Other:: TFO in heart Respiratory History Respiratory Medical History:: No Respiratory Disorders GI/ History History Of GI Disorders:: Liver Transplant Other:: Hep C resolved with the transplant Genitourinary Medical History:: No Disorders Currently Receiving Dialysis:: No Cancer History Any History of Cancer?: No EENT History Eye/Vision Medical History:: Glasses Ear/Hearing Medical History:: No Hearing Disorders Nose, Mouth, Throat Disorders:: None Musculoskeletal History Musculoskeletal History:: No Musculoskeletal Disorders Endocrine History Endocrine History:: No Endocrine Disorders Hematologic History History Of Blood Disorders:: No Blood Disorders Mental Health History Mental Health History:: Anxiety Surgical History Comment:: Liver transplant Immunization History Have You Had An Influenza Vaccine?: No Have You Had A Pneumonia Vaccine?: No Tetanus Vaccination Status: Unknown Social History Smoking Status:: Former Smoker Family History Family History: Patient reports no pertinent family hx COURSE Orders, Labs, Meds: Active Orders 24 hr Category Date T (more content not included)... Normal [facility] Serum or plasma natriuretic peptide B prohormone N-terminal measurement (mass/volume)Ordered By: KENNY ROACH on 04-05-2025 Natriuretic peptide.B prohormone N-Terminal [Mass/Vol] 478 pg/mL 0-900 [facility] Comment on above: Heart failure is unl ikely with results <300 pg/mL with 98% predictive value for any age group. Troponin T SerPl HS-mCncon 0 04-05-2025 Troponin T.cardiac High sensitivity method [Mass/Vol] 35.90465 ng/L Invalid Interpretation Code <23 ng/L [facility] Work Phone: Ammonia Bloodon 06-28-2024 Ammonia (P) [Moles/Vol] 25 umol/L Normal 16-60 [facility] Comment on above: Performed By: #### A B #### [facility] [address] [place] [address] , Juan Carlos Mast M.D. FCAP, FASCP Basophils Auto (Bld) [#/Vol] Ordered By: ANABELLE MAGAÑA on 06-28-2024 Basophils (Bld) [#/Vol] 0.01 10*3/uL 0.0-0.2 [facility] Basophils/100 WBC Auto (Bld) Ordered By: ANABELLE MAGAÑA on 06-28-2024 Basophils/100 WBC (Bld) 0.3 % 0-1.0 [facility] Blood differential cell coun t methodOrdered By: ANABELLE MAGAÑA on 06-28-2024 Differential cell count method Nom (Bld) Auto differential [facility] Blood hemoglobin measurement (mass/volume)Ordered By: ANABELLE MAGAÑA on 06-28-2024 Hemoglobin (Bld) [Mass/Vol] 14.4 g/dL 13.3-17.7 [facility] CBC With Differentialon 06-14 Basophils Absolute Auto 0.01 10*3/uL Normal 0.0-0.2 [facility] Comment on above: Order Comment: Comme nts: now Performed By: #### C BCD ####[facility], CLIA #[id number] [place] [address]Juan Carlos Mast M.D., Director Basophils/100 WBC (Bld) 0.3 % Normal 0-1.0 [facility] Comment on above: Order Comment: Comme nts: now Performed By: #### C BCD ####[facility], CLIA #[id number] [place] [address]Juan Carlos Mast M.D., Director Differential Type? Auto Differential Normal [facility] Comment on above: Order Comment: Comme nts: now Performed By: #### C BCD ####[facility], CLIA #[id number] [place] [address]Juan Carlos Mast M.D., Director Eosinophils (Bld) [#/Vol] 0.09 10*3/uL Normal 0.0-0.5 [facility] Comment on above: Order Comment: Comme nts: now Performed By: #### C BCD ####[facility], CLIA #[id number] [place] [address]Juan Carlos Mast M.D., Director Eosinophils/100 WBC (Bld) 2.6 % Normal 0.0-3.0 [facility] Comment on above: Order Comment: Comme nts: now Performed By: #### C BCD ####[facility], CLIA #[id number] [place] [address]Juan Carlos Mast M.D., Director Hematocrit (Bld) [Volume fraction] 40.7 % Normal 40.0-52.0 [facility] Comment on above: Order Comment: Comme nts: now Performed By: #### C BCD ####[facility], CLIA #[id number] [place] [address]Juan Carlos Mast M.D., Director Hemoglobin (Bld) [Mass/Vol] 14.4 g/dL Normal 13.3-17.7 [facility] Comment on above: Order Comment: Comme nts: now Performed By: #### C BCD ####[facility], CLIA #[id number] [place] [address]Juan Carlos Mast M.D., Director Immature Gran Absolute Auto 0.02 10*3/uL Normal 0.01-0.2 [facility] Comment on above: Order Comment: Comme nts: now Performed By: #### C BCD ####[facility], CLIA #[id number] [place] [address]Juan Carlos Mast M.D., Director Immature granulocytes/100 WBC (Bld) 0.6 % Normal 0-0.9 [facility] Comment on above: Order Comment: Comme nts: now Performed By: #### C BCD ####[facility], CLIA #[id number] [place] [address]Juan Carlos Mast M.D., Director Lymphocytes (Bld) [#/Vol] 0.49 10*3/uL Low 1.5-4.0 [facility] Comment on above: Order Comment: Comme nts: now Performed By: #### C BCD ####[facility], CLIA #[id number] [place] [address]Juan Carlos Mast M.D., Director Lymphocytes/100 WBC (Bld) 14.0 % Low 20.0-40.0 [facility] Comment on above: Order Comment: Comme nts: now Performed By: #### C BCD ####[facility], CLIA #[id number] [place] [address]Juan Carlos Mast M.D., Director MCH (RBC) [Entitic mass] 32.3 pg Normal 27.0-40.0 [facility] Comment on above: Order Comment: Comme nts: now Performed By: #### C BCD ####[facility], CLIA #[id number] [place] [address]Juan Carlos Mast M.D., Director Mean Corpusc Hgb Concentration 35.4 g/dL Normal 31.0-36.0 [facility] Comment on above: Order Comment: Comme nts: now Performed By: #### C UDAY ####[facility] [place], CLIA #[id number] [place] [address]Juan Carlos Mast M.D., Director Mean Corpuscular Volume 91.3 CU uM Normal 80.0-100.0 [facility] Comment on above: Order Comment: Comme nts: now Performed By: #### C BCD ####[facility] [place], CLIA #[id number] [place] [address]Juan Carlos Mast M.D., Director Monocytes (Bld) [#/Vol] 0.38 10*3/uL Normal 0.2-0.8 [facility] Comment on above: Order Comment: Comme nts: now Performed By: #### C BCD ####[facility], CLIA #[id number] [place] [address]Juan Carlos Mast M.D., Director Monocytes/100 WBC (Bld) 10.9 % High 4.0-10.0 [facility] Comment on above: Order Comment: Comme nts: now Performed By: #### C BCD ####[facility] [place], CLIA #[id number] [place] [address]Juan Carlos Mast M.D., Director Neutrophils Absolute Auto 2.50 10*3/uL Normal 2.0-7.0 [facility] Comment on above: Order Comment: Comme nts: now Performed By: #### C BCD ####[facility], CLIA #[id number] [place] [address]Juan Carlos Mast M.D., Director Neutrophils/100 WBC (Bld) 71.6 % High 54.0-62.0 [facility] Comment on above: Order Comment: Comme nts: now Performed By: #### C BCD ####[facility] [place], CLIA #[id number] [place] [address]Juan Carlos Mast M.D., Director Nucleated RBC (Bld) [#/Vol] 0.00 10*3/uL Normal -0 [facility] Comment on above: Order Comment: Comme nts: now Performed By: #### C BCD ####[facility], CLIA #[id number] [place] [address]Juan Carlos Mast M.D., Director Nucleated RBC's % 0.0 /100WBC Normal -0 [facility] Comment on above: Order Comment: Comme nts: now Performed By: #### C BCD ####[facility], CLIA #[id number] [place] [address]Juan Carlos Mast M.D., Director Platelets (Bld) [#/Vol] 99 10*3/uL Low 130-440 [facility] Comment on above: Order Comment: Comme nts: now Performed By: #### C BCD ####[facility], CLIA #[id number] [place] [address]Juan Carlos Mast M.D., Director RBC (Bld) [#/Vol] 4.46 10*6/uL Normal 4.40-5.90 [facility] Comment on above: Order Comment: Comme nts: now Performed By: #### C BCD ####[facility], CLIA #[id number] [place] [address]Juan Carlos Mast M.D., Director Red Cell Distribution 13.5 Normal 11.5-14.5 [facility] Comment on above: Order Comment: Comme nts: now Performed By: #### C BCD ####[facility] [place], CLIA #[id number] [place] [address]Juan Carlos Mast M.D., Director WBC (Bld) [#/Vol] 3.5 10*3/uL Low 3.9-10.6 [facility] Comment on above: Order Comment: Comme nts: now Performed By: #### C BCD ####[facility] [place], CLIA #[id number] [place] [address]Juan Carlos Mast M.D., Director [facility] Metabolic Pane [facility] [place] 06-28-2024 Albumin [Mass/Vol] 4.2 g/dL Normal 4.0-4.9 [facility] Comment on above: Performed By: #### A DP ####[facility], CLIA #[id number] [place] [address]Juan Carlos Mast M.D., Director ALP [Catalytic activity/Vol] 94 U/L Normal 40-129 [facility] Comment on above: Performed By: #### A DP ####[facility], CLIA #[id number] [place] [address]Juan Carlos Mast M.D., Director ALT [Catalytic activity/Vol] 11 U/L Normal 5-41 [facility] Comment on above: Performed By: #### A DP ####[facility], CLIA #[id number] [place] [address]Juan Carlos Mast M.D., Director Anion gap [Moles/Vol] 7 mmol/L Low 9-15 [facility] Comment on above: Performed By: #### A DP ####[facility], CLIA #[id number] [place] [address]Juan Carlos Mast M.D., Director AST [Catalytic activity/Vol] 19 U/L Normal 5-40 [facility] Comment on above: Performed By: #### A DP ####[facility], CLIA #[id number] [place] [address]Juan Carlos Mast M.D., Director Bilirubin [Mass/Vol] 0.3 mg/dL Normal 0.2-1.2 [facility] Comment on above: Performed By: #### A DP ####[facility] [place], CLIA #[id number] [place] [address]Juan Carlos Mast M.D., Director Calcium [Mass/Vol] 9.0 mg/dL Normal 8.8-10.2 [facility] Comment on above: Performed By: #### A DP ####[facility], CLIA #[id number] [place] [address]Juan Carlos Mast M.D., Director Chloride [Moles/Vol] 106 mmol/L Normal 98-107 [facility] Comment on above: Performed By: #### A DP ####[facility], CLIA #[id number] [place] [address]Juan Carlos Mast M.D., Director CO2 [Moles/Vol] 26 mmol/L Normal 22-29 [facility] Comment on above: Performed By: #### A DP ####[facility], CLIA #[id number] [place] [address]Juan Carlos Mast M.D., Director Creatinine [Mass/Vol] 0.97 mg/dL Normal 0.67-1.17 [facility] Comment on above: Performed By: #### A DP ####[facility] [place], [place] #[id number] [place], [place] [address]QmdunatJuan Carlos Mast M.D., Director GFR/1.73 sq M.predicted among non-blacks MDRD (S/P/Bld) [Vol rate/Area] mL/min/{1.73_m2} Normal [facility] Comment on above: Result Comment: THE GFR IS ESTIMATED USING THE MDRD STUDY EQUATION. *NOTE* IF THE RACE OF THE PATIENT WAS UNKNOWN AT THE TIME OF REGISTRATION, AND THE PATIENT IS , MULTIPLY THE EGFR RESULT PROVIDED BY 1.21. NORMAL: EGFR >60.0 Performed By: #### A DP ####[facility] [place], [place] #[id number] [place] [id number] Carlos Mast M.D., Director Glucose [Mass/Vol] 99 mg/dL Normal 70-100 [facility] Comment on above: Result Comment: INTR EPRETATION FOR FASTING BLOOD GLUCOSE: 70-100 mg/dl NORMAL GLUCOSE TOLERANCE 100-125 mg/dl IMPAIRED FASTING GLUCOSE (PRE-DIABETES) >125 mg/dl DIABETES - ON MORE THAN ONE TESTING Performed By: #### A DP ####[facility] [place], CLIA #[id number] [place], [place] [address]SsuayjdJuan Carlos Mast M.D., Director Potassium [Moles/Vol] 3.9 mmol/L Normal 3.6-5.0 [facility] Comment on above: Performed By: #### A DP ####[facility], CLIA #[id number] [place], [place] [address]FtsxynmJuan Carlos Mast M.D., Director Protein [Mass/Vol] 6.4 g/dL Normal 6.4-8.3 [facility] Comment on above: Performed By: #### A DP ####[facility] [place], [place] #[id number] [address]tthew Macatol, M.D., Director Sodium [Moles/Vol] 139 mmol/L Normal 136-145 [facility] Comment on above: Performed By: #### A DP ####[facility], CLIA #[id number] [place], [place] [address]QgqzblfJuan Carlos Mast M.D., Director Urea nitrogen [Mass/Vol] 14.7 mg/dL Normal 8.0-23.0 [facility] Comment on above: Performed By: #### A DP ####[facility], CLIA #[id number] [place], [place] [address]NcezppsJuan Carlos Mast M.D., Director Eosinophils Auto (Bld) [#/Vo l]Ordered By: ANABELLE MAGAÑA on 06-28-2024 Eosinophils (Bld) [#/Vol] 0.09 10*3/uL 0.0-0.5 [facility] Eosinophils/100 WBC Auto (Bl d)Ordered By: ANABELLE MAGAÑA on 06-28-2024 Eosinophils/100 WBC (Bld) 2.6 % 0.0-3.0 [facility] Erythrocyte distribution wid th Auto (RBC) [Ratio]Ordered By: ANABELLE MAGAÑA on 06-28-2024 Erythrocyte distribution width (RBC) [Ratio] 13.5 % 11.5-14.5 [facility] Glomerular filtration rate ( GFR) estimation/1.73 sq m using serum, plasma, or whole bOrdered By: ANABELLE MAGAÑA on 06-28-2024 GFR/1.73 sq M.predicted (S/P/Bld) [Vol rate/Area] mL/min [facility] Comment on above: NORMAL: EGFR >60.0TH E GFR IS ESTIMATED USING THE MDRD STUDY EQUATION.*NOTE* IF THE RACE OF THE PATIENT WAS UNKNOWN AT THE TIME OFREGISTRATION, AND THE PATIENT IS , MULTIPLYTHE EGFR RESULT PROVIDED BY 1.21. Hematocrit Auto (Bld) [Volum e fraction]Ordered By: ANABELLE MAGAÑA on 06-28-2024 Hematocrit (Bld) [Volume fraction] 40.7 % 40.0-52.0 [facility] Immature granulocytes Auto ( Bld) [#/Vol]Ordered By: ANABELLE MAGAÑA on 06-28-2024 Immature granulocytes (Bld) [#/Vol] 0.02 10*3/uL 0.01-0.2 [facility] Immature granulocytes/100 WB C Auto (Bld)Ordered By: ANABELLE MAGAÑA on 06-28-2024 Immature granulocytes/100 WBC (Bld) 0.6 % 0-0.9 [facility] Lymphocytes Auto (Bld) [#/Vo l]Ordered By: ANABELLE MAGAÑA on 06-28-2024 Lymphocytes (Bld) [#/Vol] 0.49 10*3/uL Low 1.5-4.0 [facility] Lymphocytes/100 WBC Auto (Bl d)Ordered By: ANABELLE MAGAÑA on 06-28-2024 Lymphocytes/100 WBC (Bld) 14.0 % Low 20.0-40.0 [facility] MCH Auto (RBC) [Entitic mass ]Ordered By: ANABELLE MAGAÑA on 06-28-2024 MCH (RBC) [Entitic mass] 32.3 pg 27-40 [facility] MCHC Auto (RBC) [Mass/Vol]Or dered By: ANABELLE MAGAÑA on 06-28-2024 MCHC (RBC) [Mass/Vol] 35.4 g/dL 31-36 [facility] MCV Auto (RBC) [Entitic vol] Ordered By: ANABELLE MAGAÑA on 06-28-2024 MCV (RBC) [Entitic vol] 91.3 CU uM 80.0-100.0 [facility] Monocytes Auto (Bld) [#/Vol] Ordered By: ANABELLE MAGAÑA on 06-28-2024 Monocytes (Bld) [#/Vol] 0.38 10*3/uL 0.2-0.8 [facility] Monocytes/100 WBC Auto (Bld) Ordered By: ANABELLE MAGAÑA on 06-28-2024 Monocytes/100 WBC (Bld) 10.9 % High 4.0-10.0 [facility] Neutrophils Auto (Bld) [#/Vo l]Ordered By: ANABELLE MAGAÑA on 06-28-2024 Neutrophils (Bld) [#/Vol] 2.50 10*3/uL 2.0-7.0 [facility] Neutrophils/100 WBC Auto (Bl d)Ordered By: ANABELLE MAGAÑA on 06-28-2024 Neutrophils/100 WBC (Bld) 71.6 % High 54.0-62.0 [facility] Nucleated RBC Auto (Bld) [#/ Vol]Ordered By: ANABELLE MAGAÑA on 06-28-2024 Nucleated RBC (Bld) [#/Vol] 0.00 10*3/uL <0 [facility] Nucleated RBC/100 WBC Auto ( Bld) [Ratio]Ordered By: ANABELLE MAGAÑA on 06-28-2024 Nucleated RBC/100 WBC (Bld) [Ratio] 0.0 /100WBC <0 [facility] PDOCon 06-28-2024 PDOC ROOM: ADM: 06/28/24 DIS: 06/28/24 PATIENT NAME: TROY CARLSON : 1965 AGE: 4 1 RACE: W SEX: M ED PHYSICIAN: ANABELLE MAGAÑA MD HPI - GENERAL Have You Traveled Outside of The [place] In The Last 30 Days?: No Mode of Arrival: Ambulatory Information Obtained From: Patient - GENERAL Time Seen by Provider: 06/28/24 13:18 Stated Complaint: FALL - 8 FT LADDER, L HAND INJURY, HEAD INJURY Chief Complaint: Fall - NOTES HPI Notes: History of present illness: This left handed patient with a history of liver transplant approximately 9 years ago states that he was trimming tree branches and fell off the ladder when it slipped 2 days ago. Patient primarily is complaining of pain along the left fifth digit. This is associated with swelling. He also has minimal tenderness of the cervical thoracic and lumbar paraspinal region. Patient is not on anticoagulants The pain is in the hand described as 6/10, dull in nature, with no radiation. The patient states that movement and palpation makes the pain worse and rest makes the pain better. The patient denies any paresthesias, weakness or numbness. There is no associated wound. The patient denies loss of consciousness. There are no other complaints at this time. Review of systems: Unless otherwise stated in this report or unable to obtain because of the patient's clinical or mental status as evidenced by the medical record, the patient's positive and negative responses for review of systems for the constitutional, eyes, ENT, cardiovascular, respiratory, gastrointestinal, neurological, genitourinary, musculoskeletal, and integument systems and related symptoms to the present problem are either stated in the history of present illness or were not pertinent or were negative for the symptoms and/or complaints related to the presenting medical problem. Past medical history: Reviewed per nursing documentation. Liver transplant 9 years ago Allergies: Reviewed see nursing assessment documentation Social history: The patient denies smoking, occasional alcohol, no intravenous drug use. Physical examination: Constitutional: nursing assessment was reviewed and vital signs reviewed. The patient was well-nourished alert cooperative and in no acute distress Head and neck inspection normal. There is no swelling or tenderness on the head. No point tenderness of the cervical spine Eyes: Pupils equal round and reactive to light, EOMI, conjunctiva clear. Ears: There is no tenderness with palpation of the pinna. .Canals clear, n. No active bleeding or discharge. Nose: No nasal discharge Mouth/Throat: Normal mucous membranes moisture Posterior pharynx is non injected. Neck: no neck tenderness, no thyromegaly, no crepitus.Trachea midline, no lymphadenopathy No point tenderness over the cervical vertebral bodies Chest: No chest wall tenderness, no crepitus. No point tenderness over the thoracic or lumbar vertebral bodies Lungs: Breath sounds were clear bilaterally there was no wheezing, rales, rhonchi. No use of accessory muscles. Good air exchange bilaterally. Heart: Normal rate, normal rhythm, normal S1, S2. No evidence of S3, S4 present. No murmur or rub Back: There is no tenderness to palpation along the midline of the cervical thoracic or lumbar spine there are no step-offs or deformities noted. Extremities: Tenderness was present over the left fifth proximal phalanx with swelling noted. There was no tenderness of the rest of the hand wrist forearm or upper extremities there was Range of motion of the fifth digit was limited due to pain. No other evidence of edema, cyanosis, or clubbing. Distal pulses were normal with normal capillary refill Neuro: Normal speech Gait was normal in and out of ED. Cranial nerves normal as tested Normal motor and sensory function in all extremities. Skin: No rashes or lesions Diagnostic tests: Medical decision making: This patient presents with evidence of fracture/injury to fifth digit at this time. There is no sign or symptom of neurologic or vascular compromise. There are no complicating factors that would justify any further testing or imaging at this time. The patient was nontoxic and stable throughout the emergency department stay. The patient was placed in a splint, capillary refill less than 2 seconds after splint placement. The patient was instructed to return immediately to the Emergency Department if there would be any new symptoms any acute change or worsening symptoms, including but not limited to []alteration of temperature of the extremity motor abnormality, or sensory abnormality. The patient was advised to followup closely with their Doctor in 1-2 days Warnings were given. The patient/caregiver was in agreement with this treatment plan and understood. The patient remained in stable condition. Differential Dx includes but i (more content not included)... Normal [facility] Plasma ammonia measurement ( moles/volume)Ordered By: ANABELLE MAGAÑA on 06-28-2024 Ammonia (P) [Moles/Vol] 25 umol/L 16-60 [facility] Platelets Auto (Bld) [#/Vol] Ordered By: ANABELLE MAGAÑA on 06-28-2024 Platelets (Bld) [#/Vol] 99 10*3/uL Low 130-440 [facility] RBC Auto (Bld) [#/Vol]Ordere d By: ANABELLE MAGAÑA on 06-28-2024 RBC (Bld) [#/Vol] 4.46 10*6/uL 4.40-5.90 [facility] Serum or plasma alanine prado otransferase measurement (enzymatic activity/volume)Ordered By: ANABELLE MAGAÑA on 06-28-2024 ALT [Catalytic activity/Vol] 11 U/L 5-41 [facility] Serum or plasma albumin kim urement (mass/volume)Ordered By: ANABELLE MAGAÑA on 06-28-2024 Albumin [Mass/Vol] 4.2 g/dL 4.0-4.9 [facility] Serum or plasma alkaline kingsley sphatase measurement (enzymatic activity/volume)Ordered By: ANABELLE MAGAÑA on 06-28-2024 ALP [Catalytic activity/Vol] 94 U/L 40-129 [facility] Serum or plasma anion gapOrd ered By: ANABELLE MAGAÑA on 06-28-2024 Anion gap [Moles/Vol] 7 mmol/L Low 9-15 [facility] Serum or plasma aspartate am inotransferase measurement (enzymatic activity/volume)Ordered By: ANABELLE MAGAÑA on 06-28-2024 AST [Catalytic activity/Vol] 19 U/L 5-40 [facility] Serum or plasma calcium kim urement (mass/volume)Ordered By: ANABELLE MAGAÑA on 06-28-2024 Calcium [Mass/Vol] 9.0 mg/dL 8.8-10.2 [facility] Serum or plasma chloride yessica surement (moles/volume)Ordered By: ANABELLE MAGAÑA on 06-28-2024 Chloride [Moles/Vol] 106 mmol/L 98-107 [facility] Serum or plasma creatinine m easurement (mass/volume)Ordered By: ANABELLE MAGAÑA on 06-28-2024 Creatinine [Mass/Vol] 0.97 mg/dL 0.67-1.17 [facility] Serum or plasma glucose kim urement (mass/volume)Ordered By: ANABELLE MAGAÑA on 06-28-2024 Glucose [Mass/Vol] 99 mg/dL 70-100 [facility] Comment on above: INTREPRETATION FOR F ASTING BLOOD GLUCOSE: 70-100 mg/dl NORMAL GLUCOSE [id number] mg/dl IMPAIRED FASTING GLUCOSE (PRE-DIABETES)>125 mg/dl DIABETES - ON MORE THAN ONE TESTING Serum or plasma potassium me asurement (moles/volume)Ordered By: ANABELLE MAGAÑA on 06-28-2024 Potassium [Moles/Vol] 3.9 mmol/L 3.6-5.0 [facility] Serum or plasma protein kim urement (mass/volume)Ordered By: ANABELLE MAGAÑA on 06-28-2024 Protein [Mass/Vol] 6.4 g/dL 6.4-8.3 [facility] Serum or plasma sodium measu rement (moles/volume)Ordered By: ANABELLE MAGAÑA on 06-28-2024 Sodium [Moles/Vol] 139 mmol/L 136-145 [facility] Serum or plasma total biliru bin measurement (mass/volume)Ordered By: ANABELLE MAGAÑA on 06-28-2024 Bilirubin [Mass/Vol] 0.3 mg/dL 0.2-1.2 [facility] Serum or plasma total carbon dioxide measurement (moles/volume)Ordered By: ANABELLE MAGAÑA on 06-28-2024 CO2 [Moles/Vol] 26 mmol/L 22-29 [facility] Serum or plasma urea nitroge n measurement (mass/volume)Ordered By: ANABELLE MAGAÑA on 06-28-2024 Urea nitrogen [Mass/Vol] 14.7 mg/dL 8.0-23.0 [facility] WBC Auto (Bld) [#/Vol]Ordere d By: ANABELLE MAGAÑA on 06-28-2024 WBC (Bld) [#/Vol] 3.5 10*3/uL Low 3.9-10.6 [facility] XR Forearm 2 View Lefton XR Forearm 2 View Left [facility] Name: TROY CARLSON [address] [place] [address] Phys: ANABELLE MAG[place] [address] : 1965 Age: 59 Acct: [id number] Loc: [facility] MRN/Unit No.: [id number] Status: REG ER Exam Date: 06/28/24 Accession Number: [id number] Exam: [id number] RAD/XR Forearm 2 View Left XR Forearm 2 View Left EXAM: XR Forearm 2 View Left HISTORY: fell hit forearm COMPARISON: None. TECHNIQUE: AP and lateral views. FINDINGS: No significant swelling about the left forearm. Radius and ulna are intact. Normal alignment at the wrist and elbow joints noted. IMPRESSION: No acute osseous abnormality of the left forearm. Normal alignment at the wrist and elbow joints. CC: ANABELLE MAGAÑA; NO FAMILY DOCTOR Technologist: SUJATA MALAVE Dictated By: MEREDITH ZAVALA Signed Date/Time: 06/28/24, 1151 This report was electronically signed in another vendor system Normal [facility] XR Hand 3 Views Lefton 06-28 XR Hand 3 Views Left [facility] Name: TROY CARLSON [address] [place] [address] Phys: ANABELLE [place] [address] : 1965 Age: 59 Acct: [id number] Loc: [facility] MRN/Unit No.: [id number] Status: REG ER Exam Date: 06/28/24 Accession Number: [id number] Exam: [id number] RAD/XR Hand 3 Views Left XR Hand 3 Views Left EXAM: XR Hand 3 Views Left HISTORY: FALL COMPARISON: None. TECHNIQUE: AP, lateral, and oblique views of the left hand. FINDINGS: There is acute, somewhat impacted and comminuted fracture involving the proximal metaphysis of the fifth digit proximal phalanx. There may be some slight dorsal angulation present. The remaining phalanges, metacarpals and carpals appear to be intact. IMPRESSION: Acute, likely comminuted and intra-articular, slightly impacted and dorsally angulated fracture involving the proximal metaphysis of the fifth proximal phalanx. CC: ANABELLE MAGAÑA; NO FAMILY DOCTOR Technologist: SUJATA MALAVE Dictated By: MEREDITH ZAVALA Signed Date/Time: 06/28/24, 1154 This report was electronically signed in another vendor system Normal [facility] XR Wrist 3 Views Lefton 06-14 XR Wrist 3 Views Left [facility] Name: TROY CARLSON [address] [place] [address] Phys: ANABELLE [place] [address] : 1965 Age: 59 Acct: [id number] Loc: [facility] MRN/Unit No.: [id number] Status: REG ER Exam Date: 06/28/24 Accession Number: [id number] Exam: [id number] RAD/XR Wrist 3 Views Left XR Wrist 3 Views Left EXAM: XR Wrist 3 Views Left HISTORY: fell hit wrist COMPARISON: Same day left forearm radiograph. No prior dedicated wrist imaging available for comparison.. TECHNIQUE: Left wrist radiograph, 3 images FINDINGS/IMPRESSION: No acute fracture or dislocation. Joint spaces preserved. Soft tissue swelling over the dorsum of the included images of the hand. See same day dedicated right hand radiograph for further evaluation. Soft tissues of the wrists are relatively preserved. No radiopaque foreign body. CC: ANABELLE MAGAÑA; NO FAMILY DOCTOR Technologist: SUJATA MALAVE Dictated By: RICO BEVERLY MD Signed Date/Time: 06/28/24, 1204 This report was electronically signed in another vendor system Normal [facility] .GFRon 04-06-2024 GFR 91 ml/min/1.73sqm Normal [facility] ([place]) Comment on above: Result Comment: GFR Population mean for , Non- Americans Ages 20-29 = 116 mL/min/1.73 sq.m. Ages 30-39 = 107 mL/min/1.73 sq.m. Ages 40-49 = 99 mL/min/1.73 sq.m. Ages 50-59 = 93 mL/min/1.73 sq.m. Ages 60-69 = 85 mL/min/1.73 sq.m. Ages 70+ = 75 mL/min/1.73 sq.m. Chronic Kidney Disease: Less than 60 mL/min/1.73 square meters End Stage Renal Disease: Less than 15 mL/min/1.73 square meters Performed By: #### G FR, LIP, MG, CMP ####[address] [place], [place] [address] GFR Non- 75 ml/min/1.73sqm Normal [facility] ([place]) Comment on above: Result Comment: GFR Population mean for , Non- Americans Ages 20-29 = 116 mL/min/1.73 sq.m. Ages 30-39 = 107 mL/min/1.73 sq.m. Ages 40-49 = 99 mL/min/1.73 sq.m. Ages 50-59 = 93 mL/min/1.73 sq.m. Ages 60-69 = 85 mL/min/1.73 sq.m. Ages 70+ = 75 mL/min/1.73 sq.m. Chronic Kidney Disease: Less than 60 mL/min/1.73 square meters End Stage Renal Disease: Less than 15 mL/min/1.73 square meters Performed By: #### G FR, LIP, MG, CMP ####[address] [place], [place] [address] CMPon 04-06-2024 Albumin Level 3.5 G/dL Normal 3.4-4.8 [facility] ([place]) Comment on above: Performed By: #### G FR, LIP, MG, CMP ####[address] [place], [place] [address] Albumin/Globulin [Mass ratio] 1.4 {ratio} Normal 1.1-2.5 [facility] ([place]) Comment on above: Performed By: #### G FR, LIP, MG, CMP ####[address] [place], [place] [address] ALP [Catalytic activity/Vol] 94 U/L Normal 40-135 [facility] ([place]) Comment on above: Performed By: #### G FR, LIP, MG, CMP ####[address] [place], [place] [address] ALT [Catalytic activity/Vol] 18 U/L Normal 16-63 [facility] ([place]) Comment on above: Performed By: #### G FR, LIP, MG, CMP ####[address] [place], [place] [address] AST [Catalytic activity/Vol] 17 U/L Normal 10-40 [facility] ([place]) Comment on above: Performed By: #### Elba FR, LIP, MG, CMP ####[address] [place], [place] [address] Bili Total 0.7 mg/dL Normal 0.2-1.0 [facility] ([place]) Comment on above: Result Comment: Use of this assay is not recommended for patients undergoing treatment with eltrombopag due to the potential for falsely elevated results. Performed By: #### Elab FR, LIP, MG, CMP ####[address] [place], [place] [address] BUN/Creatinine Ratio 12 ratio Normal 7-27 [facility] ([place]) Comment on above: Performed By: #### G FR, LIP, MG, CMP ####[address] [place], [place] [address] Calcium [Mass/Vol] 9.0 mg/dL Normal 8.4-10.2 [facility] ([place]) Comment on above: Performed By: #### G FR, LIP, MG, CMP ####[address] [place], [place] [address] Chloride [Moles/Vol] 107 mmol/L Normal 98-107 [facility] ([place]) Comment on above: Performed By: #### G FR, LIP, MG, CMP ####[address] [place], [place] [address] CO2 [Moles/Vol] 30 mmol/L Normal 23-31 [facility] ([place]) Comment on above: Performed By: #### G FR, LIP, MG, CMP ####[address] [place], [place] [address] Creatinine [Mass/Vol] 1.01 mg/dL Normal 0.70-1.30 [facility] ([place]) Comment on above: Performed By: #### G FR, LIP, MG, CMP ####[address] [place], [place] [address] Electrolyte Balance 4.0 mEq/L Normal 4.0-15.0 [facility] ([place]) Comment on above: Performed By: #### G FR, LIP, MG, CMP ####[address] [place], [place] [address] Globulin 2.5 G/dL Normal [facility] ([place]) Comment on above: Performed By: #### G FR, LIP, MG, CMP ####[address] [place], [place] [address] Glucose [Mass/Vol] 101 mg/dL Normal 80-115 [facility] ([place]) Comment on above: Performed By: #### G FR, LIP, MG, CMP ####[address] [place], [place] [address] Potassium [Moles/Vol] 3.8 mmol/L Normal 3.5-5.1 [facility] ([place]) Comment on above: Performed By: #### G FR, LIP, MG, CMP ####[address] [place], [place] [address] Sodium [Moles/Vol] 141 mmol/L Normal 136-145 [facility] ([place]) Comment on above: Performed By: #### G FR, LIP, MG, CMP ####[address] [place], [place] [address] Total Protein 6.0 G/dL Low 6.4-8.2 [facility] ([place]) Comment on above: Performed By: #### G FR, LIP, MG, CMP ####[address] [place], [place] [address] Urea nitrogen [Mass/Vol] 12 mg/dL Normal 7-18 [facility] ([place]) Comment on above: Performed By: #### G FR, LIP, MG, CMP ####[address] [place], [place] [address] LABORATORYOrdered By: SYSTEM SYSTEM on 04-06-2024 Albumin BCP dye [Mass/Vol] 3.5 G/dL Normal 3.4 - 4.8 G/dL AO ADM SS Albumin/Globulin [Mass ratio] 1.4 {ratio} Normal 1.1 - 2.5 ratio AO ADM SS ALP [Catalytic activity/Vol] 94 U/L Normal 40 - 135 U/L AO ADM SS ALT With P-5'-P [Catalytic activity/Vol] 18 U/L Normal 16 - 63 U/L AO ADM SS AST With P-5'-P [Catalytic activity/Vol] 17 U/L Normal 10 - 40 U/L AO ADM SS Bilirubin [Mass/Vol] 0.7 mg/dL Normal 0.2 - 1 .0 mg/dL AO ADM SS Comment on above: Interpretive Data: U se of this assay is not recommended for patients undergoing treatment with eltrombopag due to the potential for falsely elevated results. Calcium [Mass/Vol] 9.0 mg/dL Normal 8.4 - 10. 2 mg/dL AO ADM SS Chloride [Moles/Vol] 107 mmol/L Normal 98 - 10 7 mmol/L AO ADM SS CO2 [Moles/Vol] 30 mmol/L Normal 23 - 31 mmol/L AO ADM SS Creatinine [Mass/Vol] 1.01 mg/dL Normal 0.70 - 1.30 mg/dL AO ADM SS Electrolyte Balance 4.0 mEq/L Normal 4.0 - 15 .0 mEq/L AO ADM SS GFR/1.73 sq M.predicted among blacks MDRD (S/P/Bld) [Vol rate/Area] 91 ml/min/1.73sqm Invalid Interpretation Code AO Chemistry S Comment on above: Interpretive Data: GFR Population mean for , Non- Americans Ages 20-29 = 116 mL/min/1.73 sq.m. Ages 30-39 = 107 mL/min/1.73 sq.m. Ages 40-49 = 99 mL/min/1.73 sq.m. Ages 50-59 = 93 mL/min/1.73 sq.m. Ages 60-69 = 85 mL/min/1.73 sq.m. Ages 70+ = 75 mL/min/1.73 sq.m. Chronic Kidney Disease: Less than 60 mL/min/1.73 square meters End Stage Renal Disease: Less than 15 mL/min/1.73 square meters GFR/1.73 sq M.predicted among non-blacks MDRD (S/P/Bld) [Vol rate/Area] 75 ml/min/1.73sqm Invalid Interpretation Code AO Chemistry S Comment on above: Interpretive Data: GFR Population mean for , Non- Americans Ages 20-29 = 116 mL/min/1.73 sq.m. Ages 30-39 = 107 mL/min/1.73 sq.m. Ages 40-49 = 99 mL/min/1.73 sq.m. Ages 50-59 = 93 mL/min/1.73 sq.m. Ages 60-69 = 85 mL/min/1.73 sq.m. Ages 70+ = 75 mL/min/1.73 sq.m. Chronic Kidney Disease: Less than 60 mL/min/1.73 square meters End Stage Renal Disease: Less than 15 mL/min/1.73 square meters Globulin 2.5 G/dL Invalid Interpretation Code AO ADM SS Glucose [Mass/Vol] 101 mg/dL Normal 80 - 115 mg/dL AO ADM SS Lipase [Catalytic activity/Vol] 59 U/L Normal 16 - 77 U/L AO ADM SS Magnesium [Mass/Vol] 1.6 mg/dL Low 1.8 - 2 .4 mg/dL AO ADM SS Potassium [Moles/Vol] 3.8 mmol/L Normal 3.5 - 5.1 mmol/L AO ADM SS Protein [Mass/Vol] 6.0 G/dL Low 6.4 - 8.2 G/dL AO ADM SS Sodium [Moles/Vol] 141 mmol/L Normal 136 - 145 mmol/L AO ADM SS Urea nitrogen [Mass/Vol] 12 mg/dL Normal 7 - 18 mg/dL AO ADM SS Urea nitrogen/Creatinine [Mass ratio] 12 ratio Normal 7 - 27 ratio AO ADM SS LIPon 04-06-2024 Lipase Level 59 U/L Normal 16-77 [facility] ([place]) Comment on above: Performed By: #### G FR, LIP, MG, CMP ####[address] [address] MGon 04-06-2024 Magnesium [Mass/Vol] 1.6 mg/dL Low 1.8-2.4 [facility] ([place]) Comment on above: Performed By: #### G FR, LIP, MG, CMP ####[address] [address] .Auto Diffon 04-05-2024 Basophil, Absolute 0.0 10 3/mcL Normal 0.0-0.2 [facility] ([place]) Comment on above: Performed By: #### C BC, GFR, CMP, MORPH, ADIFF, MG, ANEU #### [address] [address] Basophils/100 WBC (Bld) 0.4 % Normal 0.0-2.5 [facility] ([place]) Comment on above: Performed By: #### C BC, GFR, CMP, MORPH, ADIFF, MG, ANEU #### [address] [address] Eosinophil, Absolute 0.1 10 3/mcL Normal 0.0-0.4 [facility] ([place]) Comment on above: Performed By: #### C BC, GFR, CMP, MORPH, ADIFF, MG, ANEU #### [address] [address] Eosinophils/100 WBC (Bld) 1.9 % Normal 0.0-7.0 [facility] ([place]) Comment on above: Performed By: #### C BC, GFR, CMP, MORPH, ADIFF, MG, ANEU #### [address] [address] Lymphocyte, Absolute 0.8 10 3/mcL Normal 0.8-3.9 [facility] ([place]) Comment on above: Performed By: #### C BC, GFR, CMP, MORPH, ADIFF, MG, ANEU #### [address] [address] Lymphocytes/100 WBC (Bld) 18.5 % Normal 10.0-50.0 [facility] ([place]) Comment on above: Performed By: #### C BC, GFR, CMP, MORPH, ADIFF, MG, ANEU #### [address] [address] Monocyte, Absolute 0.4 10 3/mcL Normal 0.2-1.0 [facility] ([place]) Comment on above: Performed By: #### C BC, GFR, CMP, MORPH, ADIFF, MG, ANEU #### [address] [address] Monocytes/100 WBC (Bld) 9.7 % Normal 1.7-13.0 [facility] ([place]) Comment on above: Performed By: #### C BC, GFR, CMP, MORPH, ADIFF, MG, ANEU #### [address] [address] Neutrophils/100 WBC (Bld) 69.5 % Normal 37.0-80.0 [facility] ([place]) Comment on above: Performed By: #### C BC, GFR, CMP, MORPH, ADIFF, MG, ANEU #### [address] [address] .GFRon 04-05-2024 GFR 75 ml/min/1.73sqm Normal [facility] ([place]) Comment on above: Result Comment: GFR Population mean for , Non- Americans Ages 20-29 = 116 mL/min/1.73 sq.m. Ages 30-39 = 107 mL/min/1.73 sq.m. Ages 40-49 = 99 mL/min/1.73 sq.m. Ages 50-59 = 93 mL/min/1.73 sq.m. Ages 60-69 = 85 mL/min/1.73 sq.m. Ages 70+ = 75 mL/min/1.73 sq.m. Chronic Kidney Disease: Less than 60 mL/min/1.73 square meters End Stage Renal Disease: Less than 15 mL/min/1.73 square meters Performed By: #### C BC, GFR, CMP, MORPH, ADIFF, MG, ANEU #### [place] [id number] GFR Non- 62 ml/min/1.73sqm Normal [facility] ([place]) Comment on above: Result Comment: GFR Population mean for , Non- Americans Ages 20-29 = 116 mL/min/1.73 sq.m. Ages 30-39 = 107 mL/min/1.73 sq.m. Ages 40-49 = 99 mL/min/1.73 sq.m. Ages 50-59 = 93 mL/min/1.73 sq.m. Ages 60-69 = 85 mL/min/1.73 sq.m. Ages 70+ = 75 mL/min/1.73 sq.m. Chronic Kidney Disease: Less than 60 mL/min/1.73 square meters End Stage Renal Disease: Less than 15 mL/min/1.73 square meters Performed By: #### C BC, GFR, CMP, MORPH, ADIFF, MG, ANEU #### [place] [address] .Morphon 04-05-2024 Large Platelets Few Normal [facility] ([place]) Comment on above: Performed By: #### C BC, GFR, CMP, MORPH, ADIFF, MG, ANEU #### [place] [id number] Platelet Estimate Decreased Normal [facility] ([place]) Comment on above: Performed By: #### C BC, GFR, CMP, MORPH, ADIFF, MG, ANEU #### [place] [address] .NEUABSon 04-05-2024 Neutrophil, Absolute 3.2 10 3/mcL Normal 2.9-6.2 [facility] ([place]) Comment on above: Performed By: #### C BC, GFR, CMP, MORPH, ADIFF, MG, ANEU #### [place] [id number] CBCon 04-05-2024 Erythrocyte distribution width (RBC) [Ratio] 13.9 % Normal 11.5-14.5 [facility] ([place]) Comment on above: Performed By: #### C BC, GFR, CMP, MORPH, ADIFF, MG, ANEU #### [place] [address] Hematocrit (Bld) [Volume fraction] 45.7 % Normal 42.0-52.0 [facility] ([place]) Comment on above: Performed By: #### C BC, GFR, CMP, MORPH, ADIFF, MG, ANEU #### [place] [address] Hgb 16.0 G/dL Normal 14.0-18.0 [facility] ([place]) Comment on above: Performed By: #### C BC, GFR, CMP, MORPH, ADIFF, MG, ANEU #### [place] [address] MCH (RBC) [Entitic mass] 31.6 pg High 27.0-31.2 [facility] ([place]) Comment on above: Performed By: #### C BC, GFR, CMP, MORPH, ADIFF, MG, ANEU #### [place] [address] MCHC 35.0 G/dL Normal 31.8-35.4 [facility] ([place]) Comment on above: Performed By: #### C BC, GFR, CMP, MORPH, ADIFF, MG, ANEU #### [place] [address] MCV (RBC) [Entitic vol] 90.2 fL Normal 80.0-94.0 [facility] ([place]) Comment on above: Performed By: #### C BC, GFR, CMP, MORPH, ADIFF, MG, ANEU #### [place] [address] Platelet 85 10 3/mcL Low 130-400 [facility] ([place]) Comment on above: Performed By: #### C BC, GFR, CMP, MORPH, ADIFF, MG, ANEU #### [address] [address] Platelet mean volume (Bld) [Entitic vol] 8.1 fL Normal 7.4-10.4 [facility] ([place]) Comment on above: Performed By: #### C BC, GFR, CMP, MORPH, ADIFF, MG, ANEU #### [address] [address] RBC 5.07 10 6/mcL Normal 4.04-6.13 [facility] ([place]) Comment on above: Performed By: #### C BC, GFR, CMP, MORPH, ADIFF, MG, ANEU #### [address] [address] WBC 4.5 10 3/mcL Low 4.6-10.8 [facility] ([place]) Comment on above: Performed By: #### C BC, GFR, CMP, MORPH, ADIFF, MG, ANEU #### [address] [address] CMPon 04-05-2024 Albumin Level 4.0 G/dL Normal 3.4-4.8 [facility] ([place]) Comment on above: Performed By: #### C BC, GFR, CMP, MORPH, ADIFF, MG, ANEU #### [address] [address] Albumin/Globulin [Mass ratio] 1.5 {ratio} Normal 1.1-2.5 [facility] ([place]) Comment on above: Performed By: #### C BC, GFR, CMP, MORPH, ADIFF, MG, ANEU #### [address] [address] ALP [Catalytic activity/Vol] 105 U/L Normal 40-135 [facility] ([place]) Comment on above: Performed By: #### C BC, GFR, CMP, MORPH, ADIFF, MG, ANEU #### [address] [address] ALT [Catalytic activity/Vol] 19 U/L Normal 16-63 [facility] ([place]) Comment on above: Performed By: #### C BC, GFR, CMP, MORPH, ADIFF, MG, ANEU #### [address] [address] AST [Catalytic activity/Vol] 20 U/L Normal 10-40 [facility] ([place]) Comment on above: Performed By: #### C BC, GFR, CMP, MORPH, ADIFF, MG, ANEU #### [address] [address] Bili Total 0.8 mg/dL Normal 0.2-1.0 [facility] ([place]) Comment on above: Result Comment: Use of this assay is not recommended for patients undergoing treatment with eltrombopag due to the potential for falsely elevated results. Performed By: #### C BC, GFR, CMP, MORPH, ADIFF, MG, ANEU #### [address] [address] BUN/Creatinine Ratio 13 ratio Normal 7-27 [facility] ([place]) Comment on above: Performed By: #### C BC, GFR, CMP, MORPH, ADIFF, MG, ANEU #### [address] [address] Calcium [Mass/Vol] 9.3 mg/dL Normal 8.4-10.2 [facility] ([place]) Comment on above: Performed By: #### C BC, GFR, CMP, MORPH, ADIFF, MG, ANEU #### [address] [address] Chloride [Moles/Vol] 104 mmol/L Normal 98-107 [facility] ([place]) Comment on above: Performed By: #### C BC, GFR, CMP, MORPH, ADIFF, MG, ANEU #### [address] [address] CO2 [Moles/Vol] 26 mmol/L Normal 23-31 [facility] ([place]) Comment on above: Performed By: #### C BC, GFR, CMP, MORPH, ADIFF, MG, ANEU #### [address] [address] Creatinine [Mass/Vol] 1.19 mg/dL Normal 0.70-1.30 [facility] ([place]) Comment on above: Performed By: #### C BC, GFR, CMP, MORPH, ADIFF, MG, ANEU #### [address] [address] Electrolyte Balance 10.0 mEq/L Normal 4.0-15.0 [facility] ([place]) Comment on above: Performed By: #### C BC, GFR, CMP, MORPH, ADIFF, MG, ANEU #### [address] [address] Globulin 2.7 G/dL Normal [facility] ([place]) Comment on above: Performed By: #### C BC, GFR, CMP, MORPH, ADIFF, MG, ANEU #### [address] [address] Glucose [Mass/Vol] 85 mg/dL Normal 80-115 [facility] ([place]) Comment on above: Performed By: #### C BC, GFR, CMP, MORPH, ADIFF, MG, ANEU #### [address] [address] Potassium [Moles/Vol] 4.0 mmol/L Normal 3.5-5.1 [facility] ([place]) Comment on above: Performed By: #### C BC, GFR, CMP, MORPH, ADIFF, MG, ANEU #### [address] [address] Sodium [Moles/Vol] 140 mmol/L Normal 136-145 [facility] ([place]) Comment on above: Performed By: #### C BC, GFR, CMP, MORPH, ADIFF, MG, ANEU #### [address] [address] Total Protein 6.7 G/dL Normal 6.4-8.2 [facility] ([place]) Comment on above: Performed By: #### C BC, GFR, CMP, MORPH, ADIFF, MG, ANEU #### [address] [address] Urea nitrogen [Mass/Vol] 15 mg/dL Normal 7-18 [facility] ([place]) Comment on above: Performed By: #### C BC, GFR, CMP, MORPH, ADIFF, MG, ANEU #### [place] [phone] [place], [place] [address] LABORATORYOrdered By: Shaquille Neil on 04-05-2024 Cholesterol [Mass/Vol] 141 mg/dL Normal 0 - 200 mg/dL AO ADM SS Comment on above: Interpretive Data: C holesterol Reference Interval: Less than 200 Desirable 200-239 Borderline high risk 240 and above High risk Cholesterol in HDL [Mass/Vol] 40 mg/dL Normal 40 - 60 mg/dL AO ADM SS Cholesterol in LDL [Mass/Vol] 82 mg/dL Normal 0 - 130 mg/dL AO ADM SS Triglyceride [Mass/Vol] 93 mg/dL Normal 0 - 150 mg/dL AO ADM SS Comment on above: Interpretive Data: T riglyceride Reference Interval: Less than 150 Normal 150-199 Borderline high risk 200-499 High risk 500 or higher Very high risk LABORATORYOrdered By: SYSTEM SYSTEM on 04-05-2024 Albumin BCP dye [Mass/Vol] 4.0 G/dL Normal 3.4 - 4.8 G/dL AO ADM SS Albumin/Globulin [Mass ratio] 1.5 {ratio} Normal 1.1 - 2.5 ratio AO ADM SS ALP [Catalytic activity/Vol] 105 U/L Normal 40 - 135 U/L AO ADM SS ALT With P-5'-P [Catalytic activity/Vol] 19 U/L Normal 16 - 63 U/L AO ADM SS AST With P-5'-P [Catalytic activity/Vol] 20 U/L Normal 10 - 40 U/L AO ADM SS Basophil, Absolute 0.0 103/mcL Normal 0.0 - 0.2 10^3/mcL AO Workflow SS Basophils/100 WBC (Bld) 0.4 % Normal 0.0 - 2.5 % AO Workflow SS Bilirubin [Mass/Vol] 0.8 mg/dL Normal 0.2 - 1 .0 mg/dL AO ADM SS Comment on above: Interpretive Data: U se of this assay is not recommended for patients undergoing treatment with eltrombopag due to the potential for falsely elevated results. Calcium [Mass/Vol] 9.3 mg/dL Normal 8.4 - 10. 2 mg/dL AO ADM SS Chloride [Moles/Vol] 104 mmol/L Normal 98 - 10 7 mmol/L AO ADM SS CO2 [Moles/Vol] 26 mmol/L Normal 23 - 31 mmol/L AO ADM SS Creatinine [Mass/Vol] 1.19 mg/dL Normal 0.70 - 1.30 mg/dL AO ADM SS Electrolyte Balance 10.0 mEq/L Normal 4.0 - 15 .0 mEq/L AO ADM SS Eosinophil, Absolute 0.1 103/mcL Normal 0.0 - 0 .4 10^3/mcL AO Workflow SS Eosinophils/100 WBC (Bld) 1.9 % Normal 0.0 - 7.0 % AO Workflow SS Erythrocyte distribution width (RBC) [Ratio] 13.9 % Normal 11.5 - 14.5 % AO Workflow SS GFR/1.73 sq M.predicted among blacks MDRD (S/P/Bld) [Vol rate/Area] 75 ml/min/1.73sqm Invalid Interpretation Code AO Chemistry S Comment on above: Interpretive Data: GFR Population mean for , Non- Americans Ages 20-29 = 116 mL/min/1.73 sq.m. Ages 30-39 = 107 mL/min/1.73 sq.m. Ages 40-49 = 99 mL/min/1.73 sq.m. Ages 50-59 = 93 mL/min/1.73 sq.m. Ages 60-69 = 85 mL/min/1.73 sq.m. Ages 70+ = 75 mL/min/1.73 sq.m. Chronic Kidney Disease: Less than 60 mL/min/1.73 square meters End Stage Renal Disease: Less than 15 mL/min/1.73 square meters GFR/1.73 sq M.predicted among non-blacks MDRD (S/P/Bld) [Vol rate/Area] 62 ml/min/1.73sqm Invalid Interpretation Code AO Chemistry S Comment on above: Interpretive Data: GFR Population mean for , Non- Americans Ages 20-29 = 116 mL/min/1.73 sq.m. Ages 30-39 = 107 mL/min/1.73 sq.m. Ages 40-49 = 99 mL/min/1.73 sq.m. Ages 50-59 = 93 mL/min/1.73 sq.m. Ages 60-69 = 85 mL/min/1.73 sq.m. Ages 70+ = 75 mL/min/1.73 sq.m. Chronic Kidney Disease: Less than 60 mL/min/1.73 square meters End Stage Renal Disease: Less than 15 mL/min/1.73 square meters Globulin 2.7 G/dL Invalid Interpretation Code AO ADM SS Glucose [Mass/Vol] 85 mg/dL Normal 80 - 115 mg/dL AO ADM SS Hematocrit (Bld) [Volume fraction] 45.7 % Normal 42.0 - 52.0 % AO Workflow SS Hemoglobin (Bld) [Mass/Vol] 16.0 G/dL Normal 14.0 - 18.0 G/dL AO Workflow SS Large Platelets Few *NA* (04/05/24 5:24 AM) Invalid Interpretation Code AO Workflow SS Lymphocyte, Absolute 0.8 103/mcL Normal 0.8 - 3 .9 10^3/mcL AO Workflow SS Lymphocytes/100 WBC (Bld) 18.5 % Normal 10.0 - 50.0 % AO Workflow SS Magnesium [Mass/Vol] 1.9 mg/dL Normal 1.8 - 2 .4 mg/dL AO ADM SS MCH (RBC) [Entitic mass] 31.6 pg High 27.0 - 31.2 pg AO Workflow SS MCHC 35.0 G/dL Normal 31.8 - 35.4 G/dL AO Workflow SS MCV (RBC) [Entitic vol] 90.2 fL Normal 80.0 - 94.0 fL AO Workflow SS Monocyte, Absolute 0.4 103/mcL Normal 0.2 - 1.0 10^3/mcL AO Workflow SS Monocytes/100 WBC (Bld) 9.7 % Normal 1.7 - 13.0 % AO Workflow SS Neutrophil, Absolute 3.2 103/mcL Normal 2.9 - 6 .2 10^3/mcL AO Workflow SS Neutrophils/100 WBC (Bld) 69.5 % Normal 37.0 - 80.0 % AO Workflow SS Platelet Estimate Decreased *NA* (04/05/24 5:24 AM) Invalid Interpretation Code AO Workflow SS Platelet mean volume (Bld) [Entitic vol] 8.1 fL Normal 7.4 - 10.4 fL AO Workflow SS Platelets (Bld) [#/Vol] 85 103/mcL Low 130 - 400 10^3/mcL AO Workflow SS Potassium [Moles/Vol] 4.0 mmol/L Normal 3.5 - 5.1 mmol/L AO ADM SS Protein [Mass/Vol] 6.7 G/dL Normal 6.4 - 8.2 G/dL AO ADM SS RBC (Bld) [#/Vol] 5.07 106/mcL Normal 4.04 - 6.1 3 10^6/mcL AO Workflow SS Sodium [Moles/Vol] 140 mmol/L Normal 136 - 145 mmol/L AO ADM SS Urea nitrogen [Mass/Vol] 15 mg/dL Normal 7 - 18 mg/dL AO ADM SS Urea nitrogen/Creatinine [Mass ratio] 13 ratio Normal 7 - 27 ratio AO ADM SS WBC (Bld) [#/Vol] 4.5 103/mcL Low 4.6 - 10.8 10^3/mcL AO Workflow SS LABORATORYOrdered By: Marilee Tidwell on 04-05-2024 INR Coag (PPP) [Relative time] 1.2 {INR} Invalid Interpretation Code AO [facility] SS Comment on above: Interpretive Data: Bekah lynne [employer] [employer] (CHEST, 1992, [id number]) recommended therapeutic range for oral anticoagulant therapy is: LOW RISK: Prophylaxis of venous thrombosis INR: 2.0-3.0 Treatment of pulmonary embolism 2.0-3.0 Prevention of systemic embolism 2.0-3.0 HIGH RISK: Mechanical prosthetic valves 2.5-3.5 PT Coag (PPP) [Time] 13.6 s Normal 9.0 - 1 4.4 seconds AO [facility] SS LABORATORYOrdered By: Stewart Patricia on 04-05-2024 Appearance (U) Clear (04/05/24 12:00 AM) Normal Clear AO Auto Urine SS Bilirubin Ql (U) Negative (04/05/24 12:00 AM) Normal Negative AO Auto Urine SS Color (U) Yellow (04/05/24 12:00 AM) Normal AO Auto Urine SS Glucose Test strip (U) [Mass/Vol] Negative Normal Negative AO Auto Urine SS Hemoglobin Auto test strip (U) [Mass/Vol] Trace *ABN* (04/05/24 12:00 AM) Invalid Interpretation Code Negative AO Auto Urine SS UA Leuk Est Negative (04/05/24 12:00 AM) Normal Negative AO Auto Urine SS UA Nitrite Negative (04/05/24 12:00 AM) Normal Negative AO Auto Urine SS UA pH 6.0 (04/05/24 12:00 AM) Normal 5.0 - 8.0 AO Auto Urine SS UA Spec Grav <=1.005 *ABN* (04/05/24 12:00 AM) Invalid Interpretation Code 1.015-1.025 AO Auto Urine SS UA Specimen Type Clean Catch (04/05/24 12:00 AM) Normal AO Auto Urine SS UA Urobilinogen 0.2 E.U./dL Normal 0.2-1.0 AO Auto Urine SS LIPIDon 04-05-2024 Cholesterol [Mass/Vol] 141 mg/dL Normal 0-200 [facility] ([place]) Comment on above: Result Comment: Chol esterol Reference Interval: Less than 200 Desirable 200-239 Borderline high risk 240 and above High risk Performed By: #### C BC, GFR, CMP, MORPH, ADIFF, MG, ANEU #### [address] [address] Cholesterol in HDL [Mass/Vol] 40 mg/dL Normal 40-60 [facility] ([place]) Comment on above: Performed By: #### C BC, GFR, CMP, MORPH, ADIFF, MG, ANEU #### [address] [address] Cholesterol in LDL [Mass/Vol] 82 mg/dL Normal 0-130 [facility] ([place]) Comment on above: Performed By: #### C BC, GFR, CMP, MORPH, ADIFF, MG, ANEU #### [address] [address] Triglyceride [Mass/Vol] 93 mg/dL Normal 0-150 [facility] ([place]) Comment on above: Result Comment: Trig lyceride Reference Interval: Less than 150 Normal 150-199 Borderline high risk 200-499 High risk 500 or higher Very high risk Performed By: #### C BC, GFR, CMP, MORPH, ADIFF, MG, ANEU #### [address] [address] MGon 04-05-2024 Magnesium [Mass/Vol] 1.9 mg/dL Normal 1.8-2.4 [facility] ([place]) Comment on above: Performed By: #### C BC, GFR, CMP, MORPH, ADIFF, MG, ANEU #### [place] [address] [place], [place] [address] MRI MRCPon 04-05-2024 MRI MRCP ORIGINAL EXAMINATION: MRCP 04/05/2024 4:22 pm TECHNIQUE: After initial T2 axial and coronal images, thick slab, thin slab and 3D coronal MRCP sequences were obtained without the administration of intravenous contrast. MIP images are provided for review. COMPARISON: Prior CT abdomen pelvis dated 04/04/2024. HISTORY: ORDERING SYSTEM PROVIDED HISTORY: Reason for Exam: r/o stones in CBD History of liver transplant and cholecystectomy. FINDINGS: Limited imaging of the lung bases demonstrates no evidence of pleural effusion or other signal abnormality. The intrahepatic biliary tree appears to be patent without filling defect. There is demonstration of a stricture seen at the anastomosis between the hepatic duct and common bile duct. This is likely secondary to an underlying surgical anastomosis. This is best seen on sequence 10 image 9, sequence 11 image 8, and sequence 12 image 9. The gallbladder is surgically absent. The common bile duct is otherwise not dilated and there is no evidence of filling defect to suggest choledocholithiasis. There is normal tapering of the distal CBD. The pancreatic duct also appears normal in course and caliber, with no evidence of pancreatic divisum. Numerous renal cysts are noted for which no dedicated follow-up is recommended. There is borderline splenomegaly with the spleen measuring 14.0 cm in AP dimension. Visualized adrenal glands and pancreas are normal in appearance. The gastrointestinal tract is unremarkable as visualized. There is no intraabdominal mass, adenopathy or free fluid appreciated on this exam. IMPRESSION: - Stricture seen at the anastomosis between the hepatic duct and common bile duct. This is likely secondary to underlying surgical anastomosis given reported history of liver transplant. - Otherwise no evidence of choledocholithiasis. - Borderline splenomegaly. - Numerous renal cysts. Interpreted by: Baudilio Levi MD Preliminary Report By: Baudilio Levi MD Electronically signed By Baudilio Levi MD Dictated Date: 04/05/2024 4:47:47 PM Prelim Date: 04/05/2024 4:58:14 PM Sign Date: 04/05/2024 4:58:14 PM Ordering Provider: CELY HENDRICKS Normal [facility] ([place] PROon 04-05-2024 PT Coag (PPP) [Time] 13.6 s Normal 9.0-14.4 [facility] ([place]) Comment on above: Performed By: #### C BC, GFR, CMP, MORPH, ADIFF, MG, ANEU #### [address] [address] PT International Ratio 1.2 Normal [facility] ([place]) Comment on above: Result Comment: The [place] [employer] (CHEST, 1992, [id number]) recommended therapeutic range for oral anticoagulant therapy is: LOW RISK: Prophylaxis of venous thrombosis INR: 2.0-3.0 Treatment of pulmonary embolism 2.0-3.0 Prevention of systemic embolism 2.0-3.0 HIGH RISK: Mechanical prosthetic valves 2.5-3.5 Performed By: #### C BC, GFR, CMP, MORPH, ADIFF, MG, ANEU #### [address] [address] UAon 04-05-2024 Color (U) Yellow Normal [facility] ([place]) Comment on above: Performed By: #### U A #### [address] [address] Glucose (U) [Mass/Vol] Negative Normal Negative [facility] ([place]) Comment on above: Performed By: #### U A #### [address] [address] UA Appear Clear Normal Clear [facility] ([place]) Comment on above: Performed By: #### U A #### [address] [address] UA Blood Trace Abnormal Negative [facility] ([place]) Comment on above: Performed By: #### U A #### [address] [address] UA Leuk Est Negative Normal Negative [facility] ([place]) Comment on above: Performed By: #### U A #### [address] [address] UA Nitrite Negative Normal Negative [facility]) Comment on above: Performed By: #### U A #### [place] [id number] UA pH 6.0 Normal 5.0 - 8.0 [facility] ([place]) Comment on above: Performed By: #### U A #### [place] [address] UA Spec Grav <=1.005 Abnormal 1.015-1.025 [facility] ([place]) Comment on above: Performed By: #### U A #### [place] [address] UA Specimen Type Clean Catch Normal [facility]) Comment on above: Performed By: #### U A #### [place] [address] UA Urobilinogen 0.2 E.U./dL Normal 0.2-1.0 [facility] ([place]) Comment on above: Performed By: #### U A #### [place] [address] Urobilinogen (U) [Mass/Vol] Negative Normal Negative [facility]) Comment on above: Performed By: #### U A #### [place] [address] UAOrdered By: Graciela Burrell re on 04-05-2024 Ketones Ql (U) Negative Normal Negative AO Auto Urine SS Comment on above: Performed By: #### U A #### [place] [address] UA Protein Negative Normal Negative AO Auto Urine SS Comment on above: Performed By: #### U A #### [place] [address] .Auto Diffon 04-04-2024 Basophil, Absolute 0.0 10 3/mcL Normal 0.0-0.2 [facility]) Comment on above: Performed By: #### A DIFF, MDW, ANEU, CBC, LIP, GFR, CMP ####[address] [place], [place] [address] Basophils/100 WBC (Bld) 0.4 % Normal 0.0-2.5 [facility] ([place]) Comment on above: Performed By: #### A DIFF, MDW, ANEU, CBC, LIP, GFR, CMP ####[address] [place], [place] [address] Eosinophil, Absolute 0.1 10 3/mcL Normal 0.0-0.4 [facility] ([place]) Comment on above: Performed By: #### A DIFF, W, ANEU, CBC, LIP, GFR, CMP ####[address] [place], [place] [address] Eosinophils/100 WBC (Bld) 1.0 % Normal 0.0-7.0 [facility] ([place]) Comment on above: Performed By: #### A DIFF, ZAFAR, ANEU, CBC, LIP, GFR, CMP ####[address] [place], [place] [address] Lymphocyte, Absolute 0.8 10 3/mcL Normal 0.8-3.9 [facility] ([place]) Comment on above: Performed By: #### A DIFFZAFAR, ANEU, CBC, LIP, GFR, CMP ####[address] [place], [place] [address] Lymphocytes/100 WBC (Bld) 11.8 % Normal 10.0-50.0 [facility] ([place]) Comment on above: Performed By: #### A DIFFZAFAR, ANEU, CBC, LIP, GFR, CMP ####[address] [place], [place] [address] Monocyte, Absolute 0.6 10 3/mcL Normal 0.2-1.0 [facility] ([place]) Comment on above: Performed By: #### A DIFFZAFAR, ANEU, CBC, LIP, GFR, CMP ####[address] [place], [place] [address] Monocytes/100 WBC (Bld) 8.4 % Normal 1.7-13.0 [facility] ([place]) Comment on above: Performed By: #### A DIFF, MDW, ANEU, CBC, LIP, GFR, CMP ####[address] [place], [place] [address] Neutrophils/100 WBC (Bld) 78.4 % Normal 37.0-80.0 [facility] ([place]) Comment on above: Performed By: #### A DIFF, MDW, ANEU, CBC, LIP, GFR, CMP ####[address] [place], [place] [address] .GFRon 04-04-2024 GFR Non- 68 ml/min/1.73sqm Normal [facility] ([place]) Comment on above: Result Comment: GFR Population mean for , Non- Americans Ages 20-29 = 116 mL/min/1.73 sq.m. Ages 30-39 = 107 mL/min/1.73 sq.m. Ages 40-49 = 99 mL/min/1.73 sq.m. Ages 50-59 = 93 mL/min/1.73 sq.m. Ages 60-69 = 85 mL/min/1.73 sq.m. Ages 70+ = 75 mL/min/1.73 sq.m. Chronic Kidney Disease: Less than 60 mL/min/1.73 square meters End Stage Renal Disease: Less than 15 mL/min/1.73 square meters Performed By: #### C BC, GFR, CMP, MORPH, ADIFF, MG, ANEU #### [address] [place] [id number] [place], [place] [address] GFR 82 ml/min/1.73sqm Normal [facility] ([place]) Comment on above: Result Comment: GFR Population mean for , Non- Americans Ages 20-29 = 116 mL/min/1.73 sq.m. Ages 30-39 = 107 mL/min/1.73 sq.m. Ages 40-49 = 99 mL/min/1.73 sq.m. Ages 50-59 = 93 mL/min/1.73 sq.m. Ages 60-69 = 85 mL/min/1.73 sq.m. Ages 70+ = 75 mL/min/1.73 sq.m. Chronic Kidney Disease: Less than 60 mL/min/1.73 square meters End Stage Renal Disease: Less than 15 mL/min/1.73 square meters Performed By: #### C BC, GFR, CMP, MORPH, ADIFF, MG, ANEU #### [address] [address] .MDWon 04-04-2024 Monocyte Distribution Width 16.08 Normal 0.00-20.00 [facility] ([place]) Comment on above: Result Comment: For ED adult patients suspected of sepsis, MDW<=20.0 does not rule out sepsis or risk of sepsis Performed By: #### A DIFF, MDW, ANEU, CBC, LIP, GFR, CMP ####[address] [address] .NEUABSon 04-04-2024 Neutrophil, Absolute 5.6 10 3/mcL Normal 2.9-6.2 [facility] ([place]) Comment on above: Performed By: #### A DIFF, MDW, ANEU, CBC, LIP, GFR, CMP ####[address] [place] [place] [id number] CBCon 04-04-2024 Erythrocyte distribution width (RBC) [Ratio] 13.5 % Normal 11.5-14.5 [facility] ([place]) Comment on above: Performed By: #### A DIFF, MDW, ANEU, CBC, LIP, GFR, CMP ####[address] [place] [id number] Hematocrit (Bld) [Volume fraction] 53.6 % High 42.0-52.0 [facility] ([place]) Comment on above: Performed By: #### A DIFF, MDW, ANEU, CBC, LIP, GFR, CMP ####[address] [address] Hgb 18.8 G/dL High 14.0-18.0 [facility] ([place]) Comment on above: Performed By: #### A DIFF, MDW, ANEU, CBC, LIP, GFR, CMP ####[address] [place] [id number] MCH (RBC) [Entitic mass] 31.8 pg High 27.0-31.2 [facility] ([place]) Comment on above: Performed By: #### A ZAFAR MENJIVAR, ANEU, CBC, LIP, GFR, CMP ####[address] [place], [place] [address] MCHC 35.0 G/dL Normal 31.8-35.4 [facility] ([place]) Comment on above: Performed By: #### A ZAFAR MENJIVAR, ANEU, CBC, LIP, GFR, CMP ####[address] [place], [place] [address] MCV (RBC) [Entitic vol] 90.7 fL Normal 80.0-94.0 [facility] ([place]) Comment on above: Performed By: #### A ZAFAR MENJIVAR, ANEU, CBC, LIP, GFR, CMP ####[address] [place], [place] [address] Platelet 134 10 3/mcL Normal 130-400 [facility] ([place]) Comment on above: Performed By: #### A ZAFAR MENJIVAR, ANEU, CBC, LIP, GFR, CMP ####[address] [place], [place] [address] Platelet mean volume (Bld) [Entitic vol] 7.9 fL Normal 7.4-10.4 [facility] ([place]) Comment on above: Performed By: #### A ZAFAR MENJIVAR, ANEU, CBC, LIP, GFR, CMP ####[address] [place], [place] [address] RBC 5.91 10 6/mcL Normal 4.04-6.13 [facility] ([place]) Comment on above: Performed By: #### A ZAFAR MENJIVAR, ANEU, CBC, LIP, GFR, CMP ####[address] [place], [place] [address] WBC 7.2 10 3/mcL Normal 4.6-10.8 [facility] ([place]) Comment on above: Performed By: #### A ZAFAR MENJIVAR, ANEU, CBC, LIP, GFR, CMP ####[address] [place], [place] [address] CMPon 04-04-2024 Albumin Level 4.4 G/dL Normal 3.4-4.8 [facility] ([place]) Comment on above: Order Comment: 2023 21:01:02 EDT hemolyzed. EH Performed By: #### A ZAFAR MENJIVAR, ANEU, CBC, LIP, GFR, CMP ####[address] [place], [place] [address] Albumin/Globulin [Mass ratio] 1.5 {ratio} Normal 1.1-2.5 [facility] ([place]) Comment on above: Order Comment: 2023 21:01:02 EDT hemolyzed. EH Performed By: #### A ZAFAR MENJIVAR, ANEU, CBC, LIP, GFR, CMP ####[address] [place], [place] [address] ALP [Catalytic activity/Vol] 114 U/L Normal 40-135 [facility] ([place]) Comment on above: Order Comment: 2023 21:01:02 EDT hemolyzed. EH Performed By: #### A ZAFAR MENJIVAR, ANEU, CBC, LIP, GFR, CMP ####[address] [place], [place] [address] ALT [Catalytic activity/Vol] 18 U/L Normal 16-63 [facility] ([place]) Comment on above: Order Comment: 2023 21:01:02 EDT hemolyzed. EH Performed By: #### A ZAFAR MENJIVAR, ANEU, CBC, LIP, GFR, CMP ####[address] [place], [place] [address] AST [Catalytic activity/Vol] 24 U/L Normal 10-40 [facility] ([place]) Comment on above: Order Comment: 2023 21:01:02 EDT hemolyzed. EH Performed By: #### A ZAFAR MENJIVAR, ANEU, CBC, LIP, GFR, CMP ####[address] [place], [place] [address] Bili Total 0.8 mg/dL Normal 0.2-1.0 [facility] ([place]) Comment on above: Order Comment: 2023 21:01:02 EDT hemolyzed. EH Result Comment: Use of this assay is not recommended for patients undergoing treatment with eltrombopag due to the potential for falsely elevated results. Performed By: #### A ZAFAR MENJIVAR, ANEU, CBC, LIP, GFR, CMP ####[address] [place], [place] [address] BUN/Creatinine Ratio 17 ratio Normal 7-27 [facility] ([place]) Comment on above: Order Comment: 2023 21:01:02 EDT hemolyzed. EH Performed By: #### A ZAFAR MENJIVAR, ANEU, CBC, LIP, GFR, CMP ####[address] [place], [place] [address] Calcium [Mass/Vol] 9.6 mg/dL Normal 8.4-10.2 [facility] ([place]) Comment on above: Order Comment: 2023 21:01:02 EDT hemolyzed. EH Performed By: #### A ZAFAR MENJIVAR, ANEU, CBC, LIP, GFR, CMP ####[address] [place], [place] [address] Chloride [Moles/Vol] 98 mmol/L Normal 98-107 [facility] ([place]) Comment on above: Order Comment: 2023 21:01:02 EDT hemolyzed. EH Performed By: #### A ZAFAR MENJIVAR, ANEU, CBC, LIP, GFR, CMP ####[address] [place], [place] [address] CO2 [Moles/Vol] 25 mmol/L Normal 23-31 [facility] ([place]) Comment on above: Order Comment: 2023 21:01:02 EDT hemolyzed. EH Performed By: #### A ZAFAR MENJIVAR, ANEU, CBC, LIP, GFR, CMP ####[address] [place], [place] [address] Creatinine [Mass/Vol] 1.10 mg/dL Normal 0.70-1.30 [facility] ([place]) Comment on above: Order Comment: 2023 21:01:02 EDT hemolyzed. EH Performed By: #### A ZAFAR MENJIVAR, ANEU, CBC, LIP, GFR, CMP ####[address] [place], [place] [address] Electrolyte Balance 11.0 mEq/L Normal 4.0-15.0 [facility] ([place]) Comment on above: Order Comment: 2023 21:01:02 EDT hemolyzed. EH Performed By: #### A ZAFAR MENJIVAR, ANEU, CBC, LIP, GFR, CMP ####[address] [place], [place] [address] Globulin 3.0 G/dL Normal [facility] ([place]) Comment on above: Order Comment: 2023 21:01:02 EDT hemolyzed. EH Performed By: #### A ZAFAR MENJIVAR, ANEU, CBC, LIP, GFR, CMP ####[address] [place], [place] [address] Glucose [Mass/Vol] 94 mg/dL Normal 80-115 [facility] ([place]) Comment on above: Order Comment: 2023 21:01:02 EDT hemolyzed. EH Performed By: #### A ZAFAR MENJIVAR, ANEU, CBC, LIP, GFR, CMP ####[address] [place], [place] [address] Potassium [Moles/Vol] 4.0 mmol/L Normal 3.5-5.1 [facility] ([place]) Comment on above: Order Comment: 2023 21:01:02 EDT hemolyzed. EH Performed By: #### A ZAFAR MENJIVAR, ANEU, CBC, LIP, GFR, CMP ####[address] [place], [place] [address] Sodium [Moles/Vol] 134 mmol/L Low 136-145 [facility] ([place]) Comment on above: Order Comment: 2023 21:01:02 EDT hemolyzed. EH Performed By: #### A ZAFAR MENJIVAR, ANEU, CBC, LIP, GFR, CMP ####[address] [place], [place] [address] Total Protein 7.4 G/dL Normal 6.4-8.2 [facility] ([place]) Comment on above: Order Comment: 2023 21:01:02 EDT hemolyzed. EH Performed By: #### A ZAFAR MENJIVAR, ANEU, CBC, LIP, GFR, CMP ####[address] [place], [place] [address] Urea nitrogen [Mass/Vol] 19 mg/dL High 7-18 [facility] ([place]) Comment on above: Order Comment: 2023 21:01:02 EDT hemolyzed. EH Performed By: #### A ZAFAR MENJIVAR, ANEU, CBC, LIP, GFR, CMP ####[address] [place], [place] [address] CT ABD/PELVIS W/ IV CONTRAST ONLYon 04-04-2024 CT ABD/PELVIS W/ IV CONTRAST ONLY ORIGINAL EXAMINATION: CT OF THE ABDOMEN AND PELVIS WITH CONTRAST04/04/2024 11:[address] ABDOMEN/PELVIS WITH CONTRAST TECHNIQUE: CT of the abdomen and pelvis was performed with the administration of intravenous contrast. Multiplanar reformatted images are provided for review. Automated exposure control, iterative reconstruction, and/or weight based adjustment of the mA/kV was utilized to reduce the radiation dose to as low as reasonably achievable. COMPARISON: None available HISTORY: ORDERING SYSTEM PROVIDED HISTORY: Reason for Exam: pain FINDINGS: The size, density, and morphology of the liver, adrenals, kidneys, pancreas and unopacified loops of bowel are unremarkable. Prior cholecystectomy. 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 Duodenal diverticulum is noted. Spleen is enlarged. The opacified aorta demonstrates normal size and morphology without aneurysmal dilation or dissection. There are no enlarged lymph nodes by pathologic size criteria. Appendix is normal. A few scattered diverticular noted without surrounding inflammatory changes. There is no free fluid within the pelvis. The bladder and pelvic organs have an unremarkable CT appearance. The osseous structures are without gross lytic or sclerotic lesion. The lung bases are clear. IMPRESSION: 1. No acute intra-abdominal pathology. Postsurgical changes. 2. Mild splenomegaly. 3. Mild diverticulosis. Interpreted by: Jb Hwang MD Preliminary Report By: Jb Hwang MD Electronically signed By Jb Hwang MD Dictated Date: 04/04/2024 11:38:30 PM Prelim Date: 04/04/2024 11:42:10 PM Sign Date: 04/04/2024 11:42:10 PM Ordering Provider: DALY Lopez [facility] ([place]) LABORATORYOrdered By: SYSTEM SYSTEM on 04-04-2024 Albumin BCP dye [Mass/Vol] 4.4 G/dL Normal 3.4 - 4.8 G/dL AO ADM SS Albumin/Globulin [Mass ratio] 1.5 {ratio} Normal 1.1 - 2.5 ratio AO ADM SS ALP [Catalytic activity/Vol] 114 U/L Normal 40 - 135 U/L AO ADM SS ALT With P-5'-P [Catalytic activity/Vol] 18 U/L Normal 16 - 63 U/L AO ADM SS AST With P-5'-P [Catalytic activity/Vol] 24 U/L Normal 10 - 40 U/L AO ADM SS Bilirubin [Mass/Vol] 0.8 mg/dL Normal 0.2 - 1 .0 mg/dL AO ADM SS Comment on above: Interpretive Data: U se of this assay is not recommended for patients undergoing treatment with eltrombopag due to the potential for falsely elevated results. Calcium [Mass/Vol] 9.6 mg/dL Normal 8.4 - 10. 2 mg/dL AO ADM SS Chloride [Moles/Vol] 98 mmol/L Normal 98 - 10 7 mmol/L AO ADM SS CO2 [Moles/Vol] 25 mmol/L Normal 23 - 31 mmol/L AO ADM SS Creatinine [Mass/Vol] 1.10 mg/dL Normal 0.70 - 1.30 mg/dL AO ADM SS Electrolyte Balance 11.0 mEq/L Normal 4.0 - 15 .0 mEq/L AO ADM SS GFR/1.73 sq M.predicted among blacks MDRD (S/P/Bld) [Vol rate/Area] 82 ml/min/1.73sqm Invalid Interpretation Code AO Chemistry S Comment on above: Interpretive Data: GFR Population mean for , Non- Americans Ages 20-29 = 116 mL/min/1.73 sq.m. Ages 30-39 = 107 mL/min/1.73 sq.m. Ages 40-49 = 99 mL/min/1.73 sq.m. Ages 50-59 = 93 mL/min/1.73 sq.m. Ages 60-69 = 85 mL/min/1.73 sq.m. Ages 70+ = 75 mL/min/1.73 sq.m. Chronic Kidney Disease: Less than 60 mL/min/1.73 square meters End Stage Renal Disease: Less than 15 mL/min/1.73 square meters GFR/1.73 sq M.predicted among non-blacks MDRD (S/P/Bld) [Vol rate/Area] 68 ml/min/1.73sqm Invalid Interpretation Code AO Chemistry S Comment on above: Interpretive Data: GFR Population mean for , Non- Americans Ages 20-29 = 116 mL/min/1.73 sq.m. Ages 30-39 = 107 mL/min/1.73 sq.m. Ages 40-49 = 99 mL/min/1.73 sq.m. Ages 50-59 = 93 mL/min/1.73 sq.m. Ages 60-69 = 85 mL/min/1.73 sq.m. Ages 70+ = 75 mL/min/1.73 sq.m. Chronic Kidney Disease: Less than 60 mL/min/1.73 square meters End Stage Renal Disease: Less than 15 mL/min/1.73 square meters Globulin 3.0 G/dL Invalid Interpretation Code AO ADM SS Glucose [Mass/Vol] 94 mg/dL Normal 80 - 115 mg/dL AO ADM SS Lipase [Catalytic activity/Vol] U/L 1 High 16 - 77 U/L AO ADM SS Potassium [Moles/Vol] 4.0 mmol/L Normal 3.5 - 5.1 mmol/L AO ADM SS Protein [Mass/Vol] 7.4 G/dL Normal 6.4 - 8.2 G/dL AO ADM SS Sodium [Moles/Vol] 134 mmol/L Low 136 - 145 mmol/L AO ADM SS Urea nitrogen [Mass/Vol] 19 mg/dL High 7 - 18 mg/dL AO ADM SS Urea nitrogen/Creatinine [Mass ratio] 17 ratio Normal 7 - 27 ratio AO ADM SS Basophil, Absolute 0.0 103/mcL Normal 0.0 - 0.2 10^3/mcL AO Workflow SS Basophils/100 WBC (Bld) 0.4 % Normal 0.0 - 2.5 % AO Workflow SS Eosinophil, Absolute 0.1 103/mcL Normal 0.0 - 0 .4 10^3/mcL AO Workflow SS Eosinophils/100 WBC (Bld) 1.0 % Normal 0.0 - 7.0 % AO Workflow SS Erythrocyte distribution width (RBC) [Ratio] 13.5 % Normal 11.5 - 14.5 % AO Workflow SS Hematocrit (Bld) [Volume fraction] 53.6 % High 42.0 - 52.0 % AO Workflow SS Hemoglobin (Bld) [Mass/Vol] 18.8 G/dL High 14.0 - 18.0 G/dL AO Workflow SS Lymphocyte, Absolute 0.8 103/mcL Normal 0.8 - 3 .9 10^3/mcL AO Workflow SS Lymphocytes/100 WBC (Bld) 11.8 % Normal 10.0 - 50.0 % AO Workflow SS MCH (RBC) [Entitic mass] 31.8 pg High 27.0 - 31.2 pg AO Workflow SS MCHC 35.0 G/dL Normal 31.8 - 35.4 G/dL AO Workflow SS MCV (RBC) [Entitic vol] 90.7 fL Normal 80.0 - 94.0 fL AO Workflow SS Monocyte distribution width Auto (Bld) [Entitic vol] 16.08 1 Normal 0.00 - 20.00 AO Workflow SS Comment on above: Result Comment: For ED adult patients suspected of sepsis, MDW<=20.0 does not rule out sepsis or risk of sepsis Monocyte, Absolute 0.6 103/mcL Normal 0.2 - 1.0 10^3/mcL AO Workflow SS Monocytes/100 WBC (Bld) 8.4 % Normal 1.7 - 13.0 % AO Workflow SS Neutrophil, Absolute 5.6 103/mcL Normal 2.9 - 6 .2 10^3/mcL AO Workflow SS Neutrophils/100 WBC (Bld) 78.4 % Normal 37.0 - 80.0 % AO Workflow SS Platelet mean volume (Bld) [Entitic vol] 7.9 fL Normal 7.4 - 10.4 fL AO Workflow SS Platelets (Bld) [#/Vol] 134 103/mcL Normal 130 - 400 10^3/mcL AO Workflow SS RBC (Bld) [#/Vol] 5.91 106/mcL Normal 4.04 - 6.1 3 10^6/mcL AO Workflow SS WBC (Bld) [#/Vol] 7.2 103/mcL Normal 4.6 - 10.8 10^3/mcL AO Workflow SS LIPon 04-04-2024 Lipase Level >375 High 16-77 [facility] ([place]) Comment on above: Performed By: #### A DIFF, MDW, ANEU, CBC, LIP, GFR, CMP ####[address] [place], [place] [address] CBC W Auto Differential pane l (Bld)on 12-31-2023 Basophils (Bld) [#/Vol] <0.11 k/uL [facility] Basophils/100 WBC (Bld) 0.3 % [facility] Differential cell count method Nom (Bld) Auto [facility] Eosinophils (Bld) [#/Vol] 0.13 10*3/uL <0.46 k/uL [facility] Eosinophils/100 WBC (Bld) 2.1 % [facility] Erythrocyte distribution width (RBC) [Ratio] 13.5 % 11.5 - 15.0 % [facility] Hematocrit (Bld) [Volume fraction] 45.5 % 39.0 - 51.0 % [facility] Hemoglobin (Bld) [Mass/Vol] 16.4 g/dL 13.0 - 17.0 g/dL [facility] Immature granulocytes (Bld) [#/Vol] <0.10 k/uL [facility] Immature granulocytes/100 WBC (Bld) 0.2 % [facility] Lymphocytes (Bld) [#/Vol] 0.65 10*3/uL Low 1.00 - 4.00 k/uL [facility] Lymphocytes/100 WBC (Bld) 10.4 % [facility] MCH (RBC) [Entitic mass] 31.8 pg 26.0 - 34.0 pg [facility] MCHC (RBC) [Mass/Vol] 36.0 g/dL 30.5 - 36.0 g/dL [facility] MCV (RBC) [Entitic vol] 88.3 fL 80.0 - 100.0 fL [facility] Monocytes (Bld) [#/Vol] 0.46 10*3/uL <0.87 k/uL [facility] Monocytes/100 WBC (Bld) 7.4 % [facility] Neutrophils (Bld) [#/Vol] 4.98 10*3/uL 1.45 - 7.50 k/uL [facility] Neutrophils/100 WBC (Bld) 79.6 % [facility] Nucleated RBC (Bld) [#/Vol] <0.01 k/uL [facility] Nucleated RBC/100 WBC (Bld) [Ratio] 0.0 /100 WBC [facility] Platelet mean volume (Bld) [Entitic vol] 9.7 fL 9.0 - 12.7 fL [facility] Platelets (Bld) [#/Vol] 126 10*3/uL Low 150 - 400 k/uL [facility] RBC (Bld) [#/Vol] 5.15 10*6/uL 4.20 - 6.0 0 m/uL [facility] WBC (Bld) [#/Vol] 6.25 10*3/uL 3.70 - 11. 00 k/uL [facility] Comprehensive metabolic 2000 panelon 12-31-2023 Albumin [Mass/Vol] 4.6 g/dL 3.9 - 4.9 g/dL [facility] ALP [Catalytic activity/Vol] 114 U/L High 38 - 113 U/L [facility] ALT [Catalytic activity/Vol] 14 U/L 10 - 54 U/L [facility] Anion gap [Moles/Vol] 7 mmol/L Low 9 - 18 mmol/L [facility] AST [Catalytic activity/Vol] 17 U/L 14 - 40 U/L [facility] Bilirubin [Mass/Vol] 0.6 mg/dL 0.2 - 1 .3 mg/dL [facility] Calcium [Mass/Vol] 9.8 mg/dL 8.5 - 10. 2 mg/dL [facility] Chloride [Moles/Vol] 103 mmol/L 97 - 10 5 mmol/L [facility] CO2 [Moles/Vol] 27 mmol/L 22 - 30 mmol/L [facility] Creatinine [Mass/Vol] 1.22 mg/dL 0.73 - 1.22 mg/dL [facility] Estimated Glomerular Filtration Rate 68 mL/min/1.73m >=60 mL/min/1.73m [facility] [facility] Glucose [Mass/Vol] 103 mg/dL High 74 - 99 mg/dL [facility] Potassium [Moles/Vol] 4.8 mmol/L 3.7 - 5.1 mmol/L [facility] Protein [Mass/Vol] 7.2 g/dL 6.3 - 8.0 g/dL [facility] Sodium [Moles/Vol] 137 mmol/L 136 - 144 mmol/L [facility] Urea nitrogen [Mass/Vol] 15 mg/dL 9 - 24 mg/dL [facility] PHOSPHORUS INORGANICon 12-30 Phosphate [Mass/Vol] 2.8 mg/dL 2.7 - 4 .8 mg/dL [facility] CT LUNG SCREEN WO IVCONon [facility] XR Hand - bilateral PA and L ateral and Obliqueon 01-21-2023 IMPRESSION: DEGENERATIVE CHANGES IN THE RIGHT HAND. NO ACUTE BONY ABNORMALITY AND NO ARTHROPATHY OF THE LEFT HAND. Felt Puller: PSCB Transcribe Date/Time: Jan 21 2023 5:24P Dictated by : WISAM VASQUEZ MD This examination was interpreted and the report reviewed and electronically signed by: WISAM VASQUEZ MD on Jan 21 2023 5:29PM [facility] DIVISION OF RADIOLOGY * * *Final Report* * * DATE OF EXAM: Jan 19 2023 3:33PM WOX 5556 - XR HAND 3V PA/LAT/OBL DANIEL / PROCEDURE REASON: multiple diagnoses * * * * Physician Interpretation * * * * HISTORY: T7-YEAR-OLD MALE WITH Pain in both hands Pain in both hands . lenft hand will freeze at times with certain movements ever since Liver surg. 6 years ago and pain in right thumb base for 5-6 years no inj TECHNIQUE: XR HAND 3V PA/LAT/OBL DANIEL Laterality: BILATERAL Number of different views (projections): 3 each COMPARISON: None RESULT: Right hand: Posttraumatic degenerative changes at the fifth CMC joint with mild deformity of the proximal fifth metacarpal related to remote fracture. Degenerative changes of the first through third DIP joint, IP joint of the thumb and DIP joint of the fifth digit. No erosions. No acute fracture. Left hand: Bones and joints are intact. No joint space during. No erosion. No fracture. DIVISION OF RADIOLOGY Provider, [facility] - 01/21/2023 * * *Final Report* * * DATE OF EXAM: Jan 19 2023 3:33PM WOX 5556 - XR HAND 3V PA/LAT/OBL DANIEL / PROCEDURE REASON: multiple diagnoses * * * * Physician Interpretation * * * * HISTORY: T7-YEAR[age]OLD MALE WITH Pain in both hands Pain in both hands . lenft hand will freeze at times with certain movements ever since Liver surg. 6 years ago and pain in right thumb base for 5-6 years no inj TECHNIQUE: XR HAND 3V PA/LAT/OBL DANIEL Laterality: BILATERAL Number of different views (projections): 3 each COMPARISON: None RESULT: Right hand: Posttraumatic degenerative changes at the fifth CMC joint with mild deformity of the proximal fifth metacarpal related to remote fracture. Degenerative changes of the first through third DIP joint, IP joint of the thumb and DIP joint of the fifth digit. No erosions. No acute fracture. Left hand: Bones and joints are intact. No joint space during. No erosion. No fracture. IMPRESSION IMPRESSION: DEGENERATIVE CHANGES IN THE RIGHT HAND. NO ACUTE BONY ABNORMALITY AND NO ARTHROPATHY OF THE LEFT HAND. Felt Puller: ALEXANDRO Transcribe Date/Time: Jan 21 2023 5:24P Dictated by : WISAM VASQUEZ MD This examination was interpreted and the report reviewed and electronically signed by: WISAM VASQUEZ MD on Jan 21 2023 5:29PM EST [facility] XR Hand - bilateral PA and L ateral and ObliqueOrdered By: Ccf Provider on 01-21-2023 [facility] XR Hand - bilateral PA and L ateral and Obliqueon 01-19-2023 Radiology Study observation (narrative) [facility] XR Ribs - right Views and Ch est PAon 10-24-2022 IMPRESSION: No acute radiographic abnormality. [facility] Transcribe Date/Time: Oct 24 2022 1:32P Dictated by : JESSCIA SOLIS MD This examination was interpreted and the report reviewed and electronically signed by: JESSICA SOLIS MD on Oct 24 2022 1:36PM [facility] DIVISION OF RADIOLOGY * * *Final Report* * * DATE OF EXAM: Oct 21 2022 3:01PM WOX 5244 - XR RIB/CHST 3V AP RIB/OBL/CHST R / PROCEDURE REASON: Rib pain on right side * * * * Physician Interpretation * * * * EXAMINATION: X-ray chest and right ribs Clinical History: Rib pain on right side M: XC1_4 Comparison: Chest x-ray 07/19/2021 RESULT: Lines, tubes, and devices: None. Lungs and pleura: No consolidation. No lung mass. No pleural effusion. Cardiomediastinal silhouette: Normal cardiomediastinal silhouette. Musculoskeletal: No acute fracture. Remote healed fracture of the lateral left eighth rib. DIVISION OF RADIOLOGY Provider, [facility] - 10/24/2022 * * *Final Report* * * DATE OF EXAM: Oct 21 2022 3:01PM WOX 5244 - XR RIB/CHST 3V AP RIB/OBL/CHST R / PROCEDURE REASON: Rib pain on right side * * * * Physician Interpretation * * * * EXAMINATION: X-ray chest and right ribs Clinical History: Rib pain on right side M: XC1_4 Comparison: Chest x-ray 07/19/2021 RESULT: Lines, tubes, and devices: None. Lungs and pleura: No consolidation. No lung mass. No pleural effusion. Cardiomediastinal silhouette: Normal cardiomediastinal silhouette. Musculoskeletal: No acute fracture. Remote healed fracture of the lateral left eighth rib. IMPRESSION IMPRESSION: No acute radiographic abnormality. Felt Puller: EDMUNDOTunepresto Transcribe Date/Time: Oct 24 2022 1:32P Dictated by : JESSICA SOLIS MD This examination was interpreted and the report reviewed and electronically signed by: JESSICA SOLIS MD on Oct 24 2022 1:36PM EST [facility] XR Ribs - right Views and Ch est PAOrdered By: Ccf Provider [facility] - right Views and est PAon 10-21-2022 Radiology Study observation (narrative) [facility] STREP A MOLECULAR (POC)on Procedural Control Valid [facility] Strep A (POCT) Negative Negative [facility] XR THORACIC GENERAL 3V AP/LA T/SWIMMERSon 02-26-2022 [facility] XR Thoracic spine AP and Lat eral and Swimmerson 02-26-2022 IMPRESSION: Thoracic spine mild degenerative changes. Felt Puller: PSCB Transcribe Date/Time: Feb 26 2022 12:53P Dictated by : ANDRESSA KRUSE MD This examination was interpreted and the report reviewed and electronically signed by: ANDRESSA KRUSE MD on Feb 26 2022 12:55PM EST [facility]_DO_NOT_ USE_DIVISIO N OF RADIOLOGY * * *Final Report* * * DATE OF EXAM: Feb 26 2022 12:46PM WOX 5261 - XR THORACIC 3V AP/LAT/SWIMMERS / PROCEDURE REASON: Midline thoracic back pain, unspecified chronicity * * * * Physician Interpretation * * * * EXAM TITLE: XR THORACIC 3V AP/LAT/SWIMMERS EXAM DATE/TIME: 02/26/2022 12:46 PM COMPARISON: None. CLINICAL INDICATION/HISTORY: Back pain. TECHNIQUE: AP, swimmer's and lateral views of the thoracic spine are presented FINDINGS: No fractures or subluxations are noted. The disc spaces are well preserved. There is mild osteophyte formation. There is no paraspinal mass or bony destructive process. 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 [facility]_DO_NOT_ USE_DIVISIO N OF RADIOLOGY Provider, [facility] - 02/26/2022 * * *Final Report* * * DATE OF EXAM: Feb 26 2022 12:46PM WOX 5261 - XR THORACIC 3V AP/LAT/SWIMMERS / PROCEDURE REASON: Midline thoracic back pain, unspecified chronicity * * * * Physician Interpretation * * * * EXAM TITLE: XR THORACIC 3V AP/LAT/SWIMMERS EXAM DATE/TIME: 02/26/2022 12:46 PM COMPARISON: None. CLINICAL INDICATION/HISTORY: Back pain. TECHNIQUE: AP, swimmer's and lateral views of the thoracic spine are presented FINDINGS: No fractures or subluxations are noted. The disc spaces are well preserved. There is mild osteophyte formation. There is no paraspinal mass or bony destructive process. 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 IMPRESSION IMPRESSION: Thoracic spine mild degenerative changes. Felt Puller: PSCB Transcribe Date/Time: Feb 26 2022 12:53P Dictated by : ANDRESSA KRUSE MD This examination was interpreted and the report reviewed and electronically signed by: ANDRESSA KRUSE MD on Feb 26 2022 12:55PM EST [facility] Radiology Study observation (narrative) [facility] XR Thoracic spine AP and Lat eral and SwimmersOrdered By: Ccf Provider on 02-26-2022 [facility] XR CERV OTHER 4V AP/LAT/OBLo n 02-06-2022 [facility] XR Cervical spine AP and Lat eral and obliqueon 02-06-2022 IMPRESSION: Spondylosis of the cervical spine. Stable retrolisthesis of C3 on C4. Felt Puller: PSCB Transcribe Date/Time: Feb 06 2022 5:05P Dictated by : JONNA LEWIS MD This examination was interpreted and the report reviewed and electronically signed by: JONNA LEWIS MD on Feb 06 2022 5:07PM EST [facility]_DO_NOT_ USE_DIVISIO N OF RADIOLOGY * * *Final Report* * * DATE OF EXAM: Feb 06 2022 4:48PM WOX 5311 - XR CERVICAL 4V AP/LAT/OBL / PROCEDURE REASON: Neck pain * * * * Physician Interpretation * * * * Cervical spine radiographs HISTORY: 57 years old Clinical information: Neck pain neck pain TECHNIQUE: Images: XR CERVICAL 4V AP/LAT/OBL Comparison: December 23, 2021. RESULT: Findings: Stable 3 mm retrolisthesis of C3 on C4. Narrowing of the C3-4 intervertebral disc space. Endplate osteophyte formation at the C3 and C4 levels. No fracture. Narrowing of the right C4-5 and left C3-4 and C4-5 neural foramina. The prevertebral soft tissues are within normal limits. Vascular calcifications are seen in the neck. Imaged lung apices are clear. ZZZ_DO_NOT_ USE_DIVISIO N OF RADIOLOGY Provider, [facility] - 02/06/2022 * * *Final Report* * * DATE OF EXAM: Feb 06 2022 4:48PM WOX 5311 - XR CERVICAL 4V AP/LAT/OBL / PROCEDURE REASON: Neck pain * * * * Physician Interpretation * * * * Cervical spine radiographs HISTORY: 57 years old Clinical information: Neck pain neck pain TECHNIQUE: Images: XR CERVICAL 4V AP/LAT/OBL Comparison: December 23, 2021. RESULT: Findings: Stable 3 mm retrolisthesis of C3 on C4. Narrowing of the C3-4 intervertebral disc space. Endplate osteophyte formation at the C3 and C4 levels. No fracture. Narrowing of the right C4-5 and left C3-4 and C4-5 neural foramina. The prevertebral soft tissues are within normal limits. Vascular calcifications are seen in the neck. Imaged lung apices are clear. IMPRESSION IMPRESSION: Spondylosis of the cervical spine. Stable retrolisthesis of C3 on C4. Felt Puller: ALEXANDRO Transcribe Date/Time: Feb 06 2022 5:05P Dictated by : JONNA LEWIS MD This examination was interpreted and the report reviewed and electronically signed by: JONNA LEWIS MD on Feb 06 2022 5:07PM EST [facility] Radiology Study observation (narrative) [facility] XR Cervical spine AP and Lat eral and obliqueOrdered By: Ccf Provider on 02-06-2022 [facility] MRI BRAIN WO IVCONon 022 [facility] UA DIP, URINE (POC)on 2021 BILIRUBIN UA (POCT) Negative Negative [facility] CLARITY UA (POCT) Slightly Cloudy Cl [facility] COLOR UA (POCT) Other [facility] GLUCOSE UA (POCT) Negative Negative mg/dL [facility] HEMOGLOBIN/BLOOD UA (POCT) Moderate Abnormal Negative [facility] KETONE UA (POCT) Negative Negative mg/dL [facility] LEUKOCYTES UA (POCT) Moderate Abnormal Negative [facility] NITRITE UA (POCT) Negative Negative [facility] PH UA (POCT) 6.5 4.5 - 8.0 [facility] Protein Ql (U) 100 mg/dL Abnormal Negative mg/dL [facility] SPECIFIC GRAVITY UA (POCT) >=1.030 1.005 - 1.030 [facility] UROBILINOGEN UA (POCT) 0.2 E.U./dL Normal E.U./dL [facility] XR Cervical spine AP and Lat eral and obliqueon 12-23-2021 IMPRESSION: DEGENERATIVE CHANGE AND ALIGNMENT ABNORMALITIES DESCRIBED Felt Puller[facility] Transcribe Date/Time: Dec 23 2021 12:12P Dictated by : FABIEN GOMEZ MD This examination was interpreted and the report reviewed and electronically signed by: FABIEN GOMEZ MD on Dec 23 2021 12:17PM EST DIVISION OF RADIOLOGY * * *Final Report* * * DATE OF EXAM: Dec 23 2021 10:24AM WOX 5311 - XR CERVICAL 4V AP/LAT/OBL / PROCEDURE REASON: Neck pain * * * * Physician Interpretation * * * * Examination: XR CERVICAL 4V AP/LAT/OBL History: Neck pain Technique: XR CERVICAL 4V AP/LAT/OBL Comparison: Cervical MRI 11/13/2015 RESULT: Mild retrolisthesis of C3 with respect to C4. Moderate disc space narrowing at this level. Alignment elsewhere is normal. Normal lordosis. No acute fracture or prevertebral swelling. No significant foraminal encroachment Mild spondylosis and osteophytosis throughout DIVISION OF RADIOLOGY [facility]21 * * *Final Report* * * DATE OF EXAM: Dec 23 2021 10:24AM WOX 5311 - XR CERVICAL 4V AP/LAT/OBL / PROCEDURE REASON: Neck pain * * * * Physician Interpretation * * * * Examination: XR CERVICAL 4V AP/LAT/OBL History: Neck pain Technique: XR CERVICAL 4V AP/LAT/OBL Comparison: Cervical MRI 11/13/2015 RESULT: Mild retrolisthesis of C3 with respect to C4. Moderate disc space narrowing at this level. Alignment elsewhere is normal. Normal lordosis. No acute fracture or prevertebral swelling. No significant foraminal encroachment Mild spondylosis and osteophytosis throughout IMPRESSION IMPRESSION: DEGENERATIVE CHANGE AND ALIGNMENT ABNORMALITIES DESCRIBED Felt Puller: ALEXANDRO Transcribe Date/Time: Dec 23 2021 12:12P Dictated by : FABIEN GOMEZ MD This examination was interpreted and the report reviewed and electronically signed by: FABIEN GOMEZ MD on Dec 23 2021 12:17PM EST [facility] Radiology Study observation (narrative) [facility] XR Cervical spine AP and Lat eral and obliqueOrdered By: Ccf Provider on 12-23-2021 [facility] CBC W Auto Differential pane l (Bld)on 12-04-2021 Basophils (Bld) [#/Vol] 10*3/uL Normal <0.11 [facility] Comment on above: Order Comment: Speci men Type: BLOOD SPECIMEN Ordering Facility: [facility] Address: [address] [place] [address] Performed By: #### 5 8410-2 #### [facility] CLIA [id number] [address] Basophils/100 WBC (Bld) 0.3 % Normal [facility] Comment on above: Order Comment: Speci men Type: BLOOD SPECIMEN Ordering Facility: [facility] Address: [address] [place] [address] Performed By: #### 5 8410-2 #### [facility] CLIA [id number] [address] Differential cell count method Nom (Bld) Auto Normal [facility] Comment on above: Order Comment: Speci men Type: BLOOD SPECIMEN Ordering Facility: [facility] Address: [address] [place] [address] Performed By: #### 5 8410-2 #### [facility] CLIA [id number] [address] Eosinophils (Bld) [#/Vol] 0.28 10*3/uL Normal <0.46 [facility] Comment on above: Order Comment: Speci men Type: BLOOD SPECIMEN Ordering Facility: [facility] Address: [address] [place] [address] Performed By: #### 5 8410-2 #### [facility] CLIA [id number] [address] Eosinophils/100 WBC (Bld) 4.5 % Normal [facility] Comment on above: Order Comment: Speci men Type: BLOOD SPECIMEN Ordering Facility: [facility] Address: [address] [place] [address] Performed By: #### 5 8410-2 #### [facility] CLIA [id number] [address] Erythrocyte distribution width (RBC) [Ratio] 13.5 % Normal 11.5-15.0 [facility] Comment on above: Order Comment: Speci men Type: BLOOD SPECIMEN Ordering Facility: [facility] Address: [address] [place] [address] Performed By: #### 5 8410-2 #### [facility] CLIA [id number] [address] Hematocrit (Bld) [Volume fraction] 39.2 % Normal 39.0-51.0 [facility] Comment on above: Order Comment: Speci men Type: BLOOD SPECIMEN Ordering Facility: [facility] Address: [address] [place] [address] Performed By: #### 5 8410-2 #### [facility] CLIA [id number] [address] [place] Hemoglobin (Bld) [Mass/Vol] 13.6 g/dL Normal 13.0-17.0 [facility] Comment on above: Order Comment: Speci men Type: BLOOD SPECIMEN Ordering Facility: [facility] Address: [address] [place] [address] Performed By: #### 5 8410-2 #### [facility] CLIA [id number] [address] [place] Lymphocytes (Bld) [#/Vol] 0.93 10*3/uL Low 1.00-4.00 [facility] Comment on above: Order Comment: Speci men Type: BLOOD SPECIMEN Ordering Facility: [facility] Address: [address] [place] [address] Performed By: #### 5 8410-2 #### [facility] CLIA [id number] [address] Lymphocytes/100 WBC (Bld) 15.1 % Normal [facility] Comment on above: Order Comment: Speci men Type: BLOOD SPECIMEN Ordering Facility: [facility] Address: [address] [place] [address] Performed By: #### 5 8410-2 #### [facility] CLIA [id number] [address] MCH (RBC) [Entitic mass] 31.8 pg Normal 26.0-34.0 [facility] Comment on above: Order Comment: Speci men Type: BLOOD SPECIMEN Ordering Facility: [facility] Address: [address] [place] [address] Performed By: #### 5 8410-2 #### [facility] CLIA [id number] [address] MCHC (RBC) [Mass/Vol] 34.7 g/dL Normal 30.5-36.0 [facility] Comment on above: Order Comment: Speci men Type: BLOOD SPECIMEN Ordering Facility: [facility] Address: [address] [place] [address] Performed By: #### 5 8410-2 #### [facility] CLIA [id number] [address] MCV (RBC) [Entitic vol] 91.6 fL Normal 80.0-100.0 [facility] Comment on above: Order Comment: Speci men Type: BLOOD SPECIMEN Ordering Facility: [facility] Address: [address] [place] [address] Performed By: #### 5 8410-2 #### [facility] CLIA [id number] [address] Monocytes (Bld) [#/Vol] 0.53 10*3/uL Normal <0.87 [facility] Comment on above: Order Comment: Speci men Type: BLOOD SPECIMEN Ordering Facility: [facility] Address: [address] [place] [address] Performed By: #### 5 8410-2 #### [facility] CLIA [id number] [address] Monocytes/100 WBC (Bld) 8.6 % Normal [facility] Comment on above: Order Comment: Speci men Type: BLOOD SPECIMEN Ordering Facility: [facility] Address: [address] [place] [address] Performed By: #### 5 8410-2 #### [facility] CLIA [id number] [address] [place] Neutrophils (Bld) [#/Vol] 4.41 10*3/uL Normal 1.45-7.50 [facility] Comment on above: Order Comment: Speci men Type: BLOOD SPECIMEN Ordering Facility: [facility] Address: [address] [place] [address] Performed By: #### 5 8410-2 #### [facility] CLIA [id number] [address] [place] Neutrophils/100 WBC (Bld) 71.5 % Normal [facility] Comment on above: Order Comment: Speci men Type: BLOOD SPECIMEN Ordering Facility: [facility] Address: [address] [place] [address] Performed By: #### 5 8410-2 #### [facility] CLIA [id number] [address] [place] Platelet mean volume (Bld) [Entitic vol] 11.3 fL Normal 9.0-12.7 [facility] Comment on above: Order Comment: Speci men Type: BLOOD SPECIMEN Ordering Facility: [facility] Address: [address] [place] [address] Performed By: #### 5 8410-2 #### [facility] CLIA [id number] [address] [place] Platelets (Bld) [#/Vol] 125 10*3/uL Low 150-400 [facility] Comment on above: Order Comment: Speci men Type: BLOOD SPECIMEN Ordering Facility: [facility] Address: [address] [place] [address] Performed By: #### 5 8410-2 #### [facility] CLIA [id number] [address] [place] [address] [place] RBC (Bld) [#/Vol] 4.28 10*6/uL Normal 4.20-6.00 [facility] Comment on above: Order Comment: Speci men Type: BLOOD SPECIMEN Ordering Facility: [facility] Address: [address] [place] [address] Performed By: #### 5 8410-2 #### [facility] CLIA [id number] [address] WBC (Bld) [#/Vol] 6.17 10*3/uL Normal 3.70-11.00 [facility] Comment on above: Order Comment: Speci men Type: BLOOD SPECIMEN Ordering Facility: [facility] Address: [address] [place] [address] Performed By: #### 5 8410-2 #### [facility] CLIA [id number] [address] CREATININE BLDon 12-04-2021 Creatinine [Mass/Vol] 1.07 mg/dL Normal 0.73-1.22 [facility] Comment on above: Order Comment: Speci men Type: BLOOD SPECIMEN Ordering Facility: [facility] Address: [address] [place] [address] Performed By: #### 5 8410-2 #### [facility] CLIA [id number] [address] ESTIMATED GLOMERULAR FILTRATION RATE 80 mL/min/1.73m??? Normal >=60 [facility] Comment on above: Order Comment: Speci men Type: BLOOD SPECIMEN Ordering Facility: [facility] Address: [address] [place] [address] Result Comment: Bonnie mated Glomerular Filtration Rate (eGFR) is calculated using the 2020 CKD-EPI creatinine equation. This equation utilizes serum creatinine, sex, and age as parameters. The creatinine assay has traceable calibration to isotope dilution-mass spectrometry. Refer to KDIGO guidelines for clinical interpretation. In patients with unstable renal function, e.g. those with acute kidney injury, the eGFR may not accurately reflect actual GFR. Performed By: #### 5 8410-2 #### [facility] CLIA [id number] [address] POTASSIUM BLDon 12-04-2021 Potassium [Moles/Vol] 3.4 mmol/L Low 3.7-5.1 [facility] Comment on above: Order Comment: Speci men Type: BLOOD SPECIMEN Ordering Facility: [facility] Address: [address] [address] Performed By: #### 5 8410-2 #### [facility] CLIA [id number] [address] OF [facility] Basic metabolic 2000 panelon 11-27-2021 Anion gap [Moles/Vol] 11 mmol/L Normal 9-18 [facility] Comment on above: Order Comment: Speci men Type: BLOOD SPECIMEN Ordering Facility: [facility] Address: [address] [place] [address] Performed By: #### 5 8410-2 #### [facility] CLIA [id number] [address] [place] Calcium [Mass/Vol] 10.2 mg/dL Normal 8.5-10.2 [facility] Comment on above: Order Comment: Speci men Type: BLOOD SPECIMEN Ordering Facility: [facility] Address: [address] [place] [address] Performed By: #### 5 8410-2 #### [facility] CLIA [id number] [address] [place] Chloride [Moles/Vol] 100 mmol/L Normal 97-105 [facility] Comment on above: Order Comment: Speci men Type: BLOOD SPECIMEN Ordering Facility: [facility] Address: [address] [address] Performed By: #### 5 8410-2 #### [facility] CLIA [id number] [address] [place] CO2 [Moles/Vol] 28 mmol/L Normal 22-30 [facility] Comment on above: Order Comment: Speci men Type: BLOOD SPECIMEN Ordering Facility: [facility] Address: [address] [address] Performed By: #### 5 8410-2 #### [facility] CLIA [id number] [address] [place] Creatinine [Mass/Vol] 1.32 mg/dL High 0.73-1.22 [facility] Comment on above: Order Comment: Jaycob ding Type: BLOOD SPECIMEN Ordering Facility: [facility] Address: [address] [address] Performed By: #### 5 8410-2 #### [facility] CLIA [id number] [address] [place] ESTIMATED GLOMERULAR FILTRATION RATE 63 mL/min/1.73m??? Normal >=60 [facility] Comment on above: Order Comment: Jaycob ding Type: BLOOD SPECIMEN Ordering Facility: [facility] Address: [address] [place] [address] Result Comment: Bonnie mated Glomerular Filtration Rate (eGFR) is calculated using the 2020 CKD-EPI creatinine equation. This equation utilizes serum creatinine, sex, and age as parameters. The creatinine assay has traceable calibration to isotope dilution-mass spectrometry. Refer to KDIGO guidelines for clinical interpretation. In patients with unstable renal function, e.g. those with acute kidney injury, the eGFR may not accurately reflect actual GFR. Performed By: #### 5 8410-2 #### [facility] CLIA [id number] [address] [place] Glucose [Mass/Vol] 122 mg/dL High 74-99 [facility] Comment on above: Order Comment: Jaycob ding Type: BLOOD SPECIMEN Ordering Facility: [facility] Address: [address] [place] [address] Result Comment: The [place] Diabetes Association (ADA) provides guidance for cutoff values for fasting glucose and random glucose. The ADA defines fasting as no caloric intake for at least 8 hours. Fasting plasma glucose results between 100 to 125 mg/dL indicate increased risk for diabetes (prediabetes). Fasting plasma glucose results greater than or equal to 126 mg/dL meet the criteria for diagnosis of diabetes. In the absence of unequivocal hyperglycemia, results should be confirmed by repeat testing. In a patient with classic symptoms of hyperglycemia or hyperglycemic crisis, random plasma glucose results greater than or equal to 200 mg/dL meet the criteria for diagnosis of diabetes. Reference: Standards of Medical Care in Diabetes 2016, [place] [employer] Diabetes Association. Diabetes Care. 2016.39(Suppl 1). Performed By: #### 5 8410-2 #### [facility] CLIA [id number] [address] Potassium [Moles/Vol] 4.1 mmol/L Normal 3.7-5.1 [facility] Comment on above: Order Comment: Zeinabi timur Type: BLOOD SPECIMEN Ordering Facility: [facility] Address: [address] [place] [address] Performed By: #### 5 8410-2 #### [facility] CLIA [id number] [address] Sodium [Moles/Vol] 139 mmol/L Normal 136-144 [facility] Comment on above: Order Comment: Jaycob ding Type: BLOOD SPECIMEN Ordering Facility: [facility] Address: [address] [place] [address] Performed By: #### 5 8410-2 #### [facility] CLIA [id number] [address] Urea nitrogen [Mass/Vol] 21 mg/dL Normal 9-24 [facility] Comment on above: Order Comment: Jaycob ding Type: BLOOD SPECIMEN Ordering Facility: [facility] Address: [address] [place] [address] Performed By: #### 5 8410-2 #### [facility] CLIA [id number] [address] OF [facility] CASE MANAGEMon 11-27-2021 CASE MANAGEM HNO ID: [id number] Author: Reena Conte RN Service: ? Author Type: Registered Nurse Type: Care Mgt Progress Note Filed: 11/27/2021 3:11 PM Note Text: CARE MANAGEMENT DISCHARGE NOTE SERVICE DATE: 11/27/2021 SERVICE TIME: 3:05 PM LOS: 0 days Admission Date: 11/21/2021 DISCHARGE ARRANGEMENT (list agency and phone number) Discharge Arrangement: Home with Self Care;Other: See Comment (Outpatient Infusion Center) Provider Name: [facility] CAREGIVER ASSESSMENT: Caregiver is ready, willing and able to meet the patient's needs as recommended by the inter-professional team:: Yes Does the patient have an acute stroke diagnosis, or has the patient had a stroke during this admission?: No Patient's transition needs and plan for meeting these needs: DC home with IV infusion and follow up at outpatient infusion center at [facility] HANDOFF COMMUNICATION: Handoff to: Primary Care Physician;Other Caregiver Primary Care Physician Name/Phone: summary of care to PCP, Giancarlo Kendall Other Caregiver Name/Phone: [facility] is aware of DC and has orders. Medication to be delivered by 7pm. TRANSPORTATION ARRANGEMENTS: Transportation Arrangements: Car ADDITIONAL CONTACT RESOURCES: n/a DC orders completed. Patient is discharging home with [facility] to supply IV abx and supplies. Medication and supplies to be delivered by 7pm this evening. Brionna from [facility] provided bedside teaching to patient and his today. Patient will follow up outpatient at the [facility] for PICC care and labs. CM notified [facility] of patient discharging. They will reach out to patient to schedule appointments. Patient chose [facility] as his provider. Name of physician who has agreed to follow the home care plan of care: Dr Hudson to follow for IV infusion Met with patient and spouse and they are aware of possible out of pocket costs regarding home care, Intravenous medications, and other ancillary needs. patient and spouse are aware that a teachable adult must be present for initial home care visit and teaching. Teachable adult is patient and his spouse Jessica. Met with patient and his Jessica to review plan for DC. They are aware that patient will need hooked up to IV abx infusion when it is delivered. They are aware that [facility] will be calling them to schedule appointments. Patient and his are agreeable to DC plan. SIGNATURE: Reena Conte RN PATIENT NAME: Troy Carlson DATE: November 27, 2021 TIME: 3:05 PM PAGER/CONTACT #: [phone] Normal [facility] CBC panel Auto (Bld)on 11-27 Erythrocyte distribution width (RBC) [Ratio] 13.2 % Normal 11.5-15.0 [facility] Comment on above: Order Comment: Speci men Type: BLOOD SPECIMEN Ordering Facility: [facility] Address: [address] [place] [address] Performed By: #### 5 8410-2 #### [facility] CLIA [id number] [address] Hematocrit (Bld) [Volume fraction] 43.7 % Normal 39.0-51.0 [facility] Comment on above: Order Comment: Speci men Type: BLOOD SPECIMEN Ordering Facility: [facility] Address: [address] [place] [address] Performed By: #### 5 8410-2 #### [facility] CLIA [id number] [address] Hemoglobin (Bld) [Mass/Vol] 15.5 g/dL Normal 13.0-17.0 [facility] Comment on above: Order Comment: Speci men Type: BLOOD SPECIMEN Ordering Facility: [facility] Address: [address] [place] [address] Performed By: #### 5 8410-2 #### [facility] CLIA [id number] [address] MCH (RBC) [Entitic mass] 32.2 pg Normal 26.0-34.0 [facility] Comment on above: Order Comment: Speci men Type: BLOOD SPECIMEN Ordering Facility: [facility] Address: [address] [place] [address] Performed By: #### 5 8410-2 #### [facility] CLIA [id number] [address] MCHC (RBC) [Mass/Vol] 35.5 g/dL Normal 30.5-36.0 [facility] Comment on above: Order Comment: Speci men Type: BLOOD SPECIMEN Ordering Facility: [facility] Address: [address] [place] [address] Performed By: #### 5 8410-2 #### [facility] CLIA [id number] [address] [place] [address] [place] MCV (RBC) [Entitic vol] 90.9 fL Normal 80.0-100.0 [facility] Comment on above: Order Comment: Speci men Type: BLOOD SPECIMEN Ordering Facility: [facility] Address: [address] [place] [address] Performed By: #### 5 8410-2 #### [facility] CLIA [id number] [address] Nucleated RBC (Bld) [#/Vol] 10*3/uL Normal <0.01 [facility] Comment on above: Order Comment: Speci men Type: BLOOD SPECIMEN Ordering Facility: [facility] Address: [address] [place] [address] Performed By: #### 5 8410-2 #### [facility] CLIA [id number] [address] Platelet mean volume (Bld) [Entitic vol] 11.1 fL Normal 9.0-12.7 [facility] Comment on above: Order Comment: Speci men Type: BLOOD SPECIMEN Ordering Facility: [facility] Address: [address] [place] [address] Performed By: #### 5 8410-2 #### [facility] CLIA [id number] [address] Platelets (Bld) [#/Vol] 121 10*3/uL Low 150-400 [facility] Comment on above: Order Comment: Speci men Type: BLOOD SPECIMEN Ordering Facility: [facility] Address: [address] [place] [address] Result Comment: Plat elet count confirmed by manual review of peripheral blood smear Performed By: #### 5 8410-2 #### [facility] CLIA [id number] [address] [place] RBC (Bld) [#/Vol] 4.81 10*6/uL Normal 4.20-6.00 [facility] Comment on above: Order Comment: Speci men Type: BLOOD SPECIMEN Ordering Facility: [facility] Address: [address] [place] [address] Performed By: #### 5 8410-2 #### [facility] CLIA [id number] [address] WBC (Bld) [#/Vol] 6.04 10*3/uL Normal 3.70-11.00 [facility] Comment on above: Order Comment: Speci men Type: BLOOD SPECIMEN Ordering Facility: [facility] Address: [address] [place] [address] Performed By: #### 5 8410-2 #### [facility] CLIA [id number] [address] CNDSon 11-27-2021 CNDS HNO ID: [id number] Author: Foster Ogden MD Service: Urology Author Type: Physician Type: Discharge Summary Filed: 11/27/2021 2:42 PM Note Text: DISCHARGE SUMMARY PATIENT NAME: Troy Carlson ADMISSION DATE: 11/21/2021 DISCHARGE DATE: 11/27/2021 Attending Physician: Foster Ogden,* Reason for Hospitalization: BPH Active Problems: BPH (benign prostatic hyperplasia) POA: Yes Resolved Problems: * No resolved hospital problems. * Operations During Hospitalization: Cystoscopy, Transurethral Resection of Prostate-Bipolar Hospital Course: Patient was admitted for the above surgery. Postoperatively, Infectious Disease was consulted due to positive urine culture for Pseudomonas and Achromobacter. Patient was recommended to be discharged with Zosyn and Ciprofloxacin for 2 weeks. PICC line was placed on 11/22/21. Patient remained admitted due to issues with home health care. Patient passed a void trial on 11/24/21. Patient and underwent teaching for IV antibiotics. He was discharged with PO Ciprofloxacin and IV Zosyn for 2 weeks. Labs and Procedures Pending at Discharge: No pending results. Consulting Teams During Hospitalization: Infectious Disease Patient Condition @ Discharge: Stable Discharge Disposition: Home with Home Health Information Provided to Patient: See discharge instructions Discharge Medications: Current Discharge Medication List START taking these medications ciprofloxacin HCl (CIPRO) 500 mg Take 500 mg by mouth twice daily. Qty: 28 tablet Refills: 0 piperacillin-tazobactam (ZOSYN) 3.375 g Inject 3.375 g intravenously every 6 hours. Qty: 189 g Refills: 0 CONTINUE these medications which have NOT CHANGED sulfamethoxazole-trimethop rim (BACTRIM DS,SEPTRA DS) 800-160 mg per tablet Smz/Tmp Ds Active 1 TABLET MOJanuary 24, 2016 11:18am !! tacrolimus IR (PROGRAF) 0.5 mg capsule Take 1 capsule (0.5 mg) by mouth twice daily. Take with 1mg capsule for total 1.5mg twice daily Qty: 60 capsule Refills: 11 Associated Diagnoses:Liver replaced by transplant (HCC) !! tacrolimus IR (PROGRAF) 1 mg capsule Take 1 capsule (1mg) by mouth twice daily. Take in addition to one 0.5mg capsule for total dose of 1.5mg twice daily Qty: 60 capsule Refills: 11 Associated Diagnoses:Liver replaced by transplant (HCC) simvastatin (ZOCOR) 40 mg Take 40 mg by mouth daily at bedtime. Qty: 90 tablet Refills: 3 buPROPion XL (WELLBUTRIN XL) 300 mg Take 300 mg by mouth once daily. Qty: 90 tablet Refills: 3 metoprolol succinate ER (TOPROL XL) 25 mg Take 25 mg by mouth once daily. Qty: 90 tablet Refills: 3 Associated Diagnoses:Liver replaced by transplant (HCC) lisinopril (ZESTRIL, PRINIVIL) 5 mg Take 5 mg by mouth once daily. Qty: 90 tablet Refills: 3 cholecalciferol (VITAMIN D3) 5,000 Units Take 5,000 Units by mouth once daily. Qty: 90 tablet Refills: [address] (PROTONIX) 40 mg Take 40 mg by mouth daily before breakfast. Take on empty stomach, 1/2 hr before meal. Qty: 90 tablet Refills: 3 sertraline (ZOLOFT) 100 mg tablet Take 2 tablets at bedtime. Qty: 180 tablet Refills: 3 alendronate (FOSAMAX) 70 mg Take 70 mg by mouth one time a week. Take with a full glass of water, on an empty stomach; do NOT lie down for 30minutes. Qty: 12 tablet Refills: 3 Garlic 1,000 mg Take 1,000 mg by mouth once daily. Qty: 90 capsule Refills: 3 ursodiol (ACTIGALL) 300 mg Take 300 mg by mouth three times daily. Qty: 90 capsule Refills: 11 Associated Diagnoses:Liver replaced by transplant (HCC) mupirocin (BACTROBAN) 1 application Apply 1 application to affected area three times daily. Location: abdomen Qty: 33 g Refills: 0 Associated Diagnoses:Cellulitis of skin Transparent Dressings 1 application Apply 1 application to affected area as needed. Qty: 10 Each Refills: 2 Associated Diagnoses:Cellulitis, abdominal wall !! - Potential duplicate medications found. Please discuss with provider. CoPAT Start SmartForm Date 11/22/2021 [employer] cc_main Diagnosis Group Diagnosis Group Diagnosis Comment Genitourinary UTI NOS Microoganisms Microoganisms Comment PSEUDOMONAS FLUORESCENS/PUTIDA OTHER achromobacter IV Antibiotics IV Antibiotics Dose Frequency Anticipated Stop Date Piperacillin/Tazobactam 3.375 g Every 6 hours (via programmable pump) 12/05/2021 Oral Antibiotics Oral Antibiotics Dose Frequency Anticipated Stop Date Ciprofloxacin 500 mg Every 12 hours 12/05/2021 Lab monitoring plan/orders Lab/Frequency While patient is on CBC/Diff every Thursday Piperacillin/Tazobactam K+ every Thursday Piperacillin/Tazobactam Creatinine every Thursday Piperacillin/Tazobactam Catheter Care *Must use medicated disc (biopatch) or tegaderm CHG (chorhexedine gluconate) gel pad over insertion site and cover with transparent dressing* When the patient is on an intermittent IV antibiotic dosin (more content not included)... Normal [facility] NUTRITIONon 11-27-2021 NUTRITION HNO ID: [id number] Author: Lyn Maier RD Service: Nutrition Therapy Author Type: Registered Dietitian Type: Nutrition Filed: 11/27/2021 2:32 PM Note Text: NUTRITION THERAPY PROGRESS NOTE SERVICE DATE: 11/27/2021 SERVICE TIME: 1146 AM Nutrition Assessment: Recommended Malnutrition Diagnosis: Severe Protein-Calorie Malnutrition (11/22/21 1322 : Kristopher Morton RD) Estimated kilocalorie needs: 4682-6020 Calorie Calculation Method: 25-35 kcals/kg Estimated protein needs (grams): 66-99 Grams protein determined by: 1.0 - 1.5 g/kg Care Plan: Continue current diet Supplements: Boost Glucose Control (5 times per day) Monitor and Evaluation: Meet greater than 75% of estimated needs;Monitor fluid/electrolyte balance;Monitor labs, I/Os, vital signs, weight;Monitor bowel function Discharge Recommendations: Diet Diet: Regular Oral Supplements: Supplement of choice 2-3 per day Interval History: 56 yo male, underwent Cystoscopy, Transurethral Resection of Prostate, on regular diet with po fair, reports taking 3 Boost per day, BM 11/26. Meds and labs reviewed, no edema and GI wnl. ACTIVE PROBLEM LIST Splenomegaly Bilateral Inguinal Hernia (Bih) Hcv (Hepatitis C Virus) Adjustment Disorder With Mixed Anxiety and Depressed Mood Pfo (Patent Foramen Ovale) Caries Retained Dental Root Sarcoidosis Chronic Hepatitis C Without Hepatic Coma (Hcc) Chronic Abdominal Pain Pain Disorder With Psychological Factors Hypothyroidism S/P Liver Transplant (Hcc) Paroxysmal Atrial Fibrillation (Hcc) Neuromyopathy (Hcc) Need for Prophylactic Immunotherapy Dysuria Non-Ischemic Cardiomyopathy (Hcc) Essential Hypertension S/P Repair of Ventral Hernia Abdominal Wall Cellulitis Bph With Obstruction/Lower Urinary Tract Symptoms Dilated Bile Duct Gerd (Gastroesophageal Reflux Disease) Jarod (Acute Kidney Injury) (Hcc) Obesity, Class II, Bmi 35-39.9 Lung Nodule Mixed Hyperlipidemia Marijuana Use, Continuous Other Osteoporosis Without Current Pathological Fracture Urinary Retention Ptsd (Post-Traumatic Stress Disorder) Bph (Benign Prostatic Hyperplasia) Anthropometrics: Height: 170.2 cm (5' 7) Weight: 65.8 kg (145 lb) Dosing Weight: 66 kg (145 lb 8.1 oz) Body mass index is 22.71 kg/m?. Normal Weight change percentage over time: wt has decreased by 10% over 2 months-Clinically significant-pt endorses this is due to poor appetite, only able to eat if he smokes pot Intake History: Current Intake: Less than 50% estimated energy needs Over: 6 days - reports drinking the 3 boost and would like 3 more Diet Orders (From admission, onward) Start Ordered 11/22/21 1400 DIET SUPPLEMENTS START NOW Question Answer Comment Supplement 1 BOOST GLUCOSE CONTROL CHOCOLATE Supplement 1 Frequency 7. BREAKFAST, LUNCH, DINNER 11/22/21 1359 11/21/212044 DIET REGULAR START NOW 11/21/212040 MNT Billing: $ Reassessment: 1-15 minutes SIGNATURE: Lyn Maier RD PATIENT NAME: Troy Carlson DATE: November 27, 2021 TIME: 2:31 PM Normal [facility] Basic metabolic 2000 panelon 11-26-2021 Anion gap [Moles/Vol] 9 mmol/L Normal 9-18 [facility] Comment on above: Order Comment: Speci men Type: BLOOD SPECIMEN Ordering Facility: [facility] Address: [address] [place] [address] Performed By: #### 5 8410-2 #### [facility] CLIA [id number] 1 [place] [address] [place] Calcium [Mass/Vol] 10.1 mg/dL Normal 8.5-10.2 [facility] Comment on above: Order Comment: Speci men Type: BLOOD SPECIMEN Ordering Facility: [facility] Address: [address] [place] [address] Performed By: #### 5 8410-2 #### [facility] CLIA [id number] 1 [place] [address] [place] Chloride [Moles/Vol] 102 mmol/L Normal 97-105 [facility] Comment on above: Order Comment: Speci men Type: BLOOD SPECIMEN Ordering Facility: [facility] Address: [address] [place] [address] Performed By: #### 5 8410-2 #### [facility] CLIA [id number] 1 [place] [address] [place] CO2 [Moles/Vol] 28 mmol/L Normal 22-30 [facility] Comment on above: Order Comment: Speci men Type: BLOOD SPECIMEN Ordering Facility: [facility] Address: [address] [address] Performed By: #### 5 8410-2 #### [facility] CLIA [id number] [address] Creatinine [Mass/Vol] 1.28 mg/dL High 0.73-1.22 [facility] Comment on above: Order Comment: Jaycob ding Type: BLOOD SPECIMEN Ordering Facility: [facility] Address: [address] [place] [address] Performed By: #### 5 8410-2 #### [facility] CLIA [id number] [address] ESTIMATED GLOMERULAR FILTRATION RATE 65 mL/min/1.73m??? Normal >=60 [facility] Comment on above: Order Comment: Jaycob ding Type: BLOOD SPECIMEN Ordering Facility: [facility] Address: [address] [place] [address] Result Comment: Bonnie mated Glomerular Filtration Rate (eGFR) is calculated using the 2020 CKD-EPI creatinine equation. This equation utilizes serum creatinine, sex, and age as parameters. The creatinine assay has traceable calibration to isotope dilution-mass spectrometry. Refer to KDIGO guidelines for clinical interpretation. In patients with unstable renal function, e.g. those with acute kidney injury, the eGFR may not accurately reflect actual GFR. Performed By: #### 5 8410-2 #### [facility] CLIA [id number] [address] [place] Glucose [Mass/Vol] 141 mg/dL High 74-99 [facility] Comment on above: Order Comment: Zeinabi men Type: BLOOD SPECIMEN Ordering Facility: [facility] Address: [address] [place] [address] Result Comment: The [place] Diabetes Association (ADA) provides guidance for cutoff values for fasting glucose and random glucose. The ADA defines fasting as no caloric intake for at least 8 hours. Fasting plasma glucose results between 100 to 125 mg/dL indicate increased risk for diabetes (prediabetes). Fasting plasma glucose results greater than or equal to 126 mg/dL meet the criteria for diagnosis of diabetes. In the absence of unequivocal hyperglycemia, results should be confirmed by repeat testing. In a patient with classic symptoms of hyperglycemia or hyperglycemic crisis, random plasma glucose results greater than or equal to 200 mg/dL meet the criteria for diagnosis of diabetes. Reference: Standards of Medical Care in Diabetes 2016, [place] [employer] Association. Diabetes Care. 2016.39(Suppl 1). Performed By: #### 5 8410-2 #### [facility] CLIA [id number] [address] STATES OF [facility] Potassium [Moles/Vol] 4.1 mmol/L Normal 3.7-5.1 [facility] Comment on above: Order Comment: Zeinabi men Type: BLOOD SPECIMEN Ordering Facility: [facility] Address: [address] [place] [address] Performed By: #### 5 8410-2 #### [facility] CLIA [id number] [address] Sodium [Moles/Vol] 139 mmol/L Normal 136-144 [facility] Comment on above: Order Comment: Jaycob ding Type: BLOOD SPECIMEN Ordering Facility: [facility] Address: [address] [place] [address] Performed By: #### 5 8410-2 #### [facility] CLIA [id number] [address] [address] Urea nitrogen [Mass/Vol] 19 mg/dL Normal 9-24 [facility] Comment on above: Order Comment: Zeinabi men Type: BLOOD SPECIMEN Ordering Facility: [facility] Address: [address] [place] [address] Performed By: #### 5 8410-2 #### [facility] CLIA [id number] [address] CASE MANAGEMon 11-26-2021 CASE MANAGEM HNO ID: [id number] Author: PARIS Evangelista Service: ? Author Type: Short Order Fry Cook Type: Care Mgt Progress Note Filed: 11/26/2021 3:54 PM Note Text: CARE MANAGEMENT PROGRESS NOTE SERVICE DATE: 11/26/2021 SERVICE TIME: 3:53 PM LOS: 0 days Needs Prior to Discharge: Other: See Comment ( to be teachable adult) [facility] to and she will be at hospital tomorrow at 1p for teach. Still have pt receive his noon dose, meds will not be delivered to room, will teach with demo supplies and once we know for sure he will dc tomorrow, we can get scheduled to deliver to home. SIGNATURE: PARIS Evangelista PATIENT NAME: Troy Carlson DATE: November 26, 2021 TIME: 3:53 PM PAGER/CONTACT #: [phone] Normal [facility] CASE MANAGEM HNO ID: [id number] Author: PARIS Evangelista Service: ? Author Type: Short Order Fry Cook Type: Care Mgt Progress Note Filed: 11/26/2021 1:42 PM Note Text: CARE MANAGEMENT PROGRESS NOTE SERVICE DATE: 11/26/2021 SERVICE TIME: 1:30 PM LOS: 0 days Needs Prior to Discharge: To Be Determined Chart reviewed. Pt needs HHC in order to d/c. No accepting HHC at this time. More referrals tasked to be sent for HHC. SW to follow. EDIT; Brionna from [employer] hasn't received call back from to set up date here with pt, pt told Brionna he would reach out around 10:00am. is to be teachable adult and needs to call Brionna [phone]. Brionna can be at [facility] Monday 11/27 to teach to be teachable adult for his IV Antibiotics if confirms date and time. Message left with again. SIGNATURE: PARIS Evangelista PATIENT NAME: Troy Barajastt DATE: November 26, 2021 TIME: 1:30 PM PAGER/CONTACT #: [phone] Normal [facility] CBC panel Auto (Bld)on 11-26 Erythrocyte distribution width (RBC) [Ratio] 13.1 % Normal 11.5-15.0 [facility] Comment on above: Order Comment: Speci men Type: BLOOD SPECIMEN Ordering Facility: [facility] Address: [address] [place] [address] [place] [address] Performed By: #### 5 8410-2 #### [facility] CLIA [id number] [address] Hematocrit (Bld) [Volume fraction] 40.9 % Normal 39.0-51.0 [facility] Comment on above: Order Comment: Speci men Type: BLOOD SPECIMEN Ordering Facility: [facility] Address: [address] [place] [address] Performed By: #### 5 8410-2 #### [facility] CLIA [id number] [address] Hemoglobin (Bld) [Mass/Vol] 14.1 g/dL Normal 13.0-17.0 [facility] Comment on above: Order Comment: Speci men Type: BLOOD SPECIMEN Ordering Facility: [facility] Address: [address] [place] [address] Performed By: #### 5 8410-2 #### [facility] CLIA [id number] [address] MCH (RBC) [Entitic mass] 31.8 pg Normal 26.0-34.0 [facility] Comment on above: Order Comment: Speci men Type: BLOOD SPECIMEN Ordering Facility: [facility] Address: [address] [place] [address] Performed By: #### 5 8410-2 #### [facility] CLIA [id number] [address] MCHC (RBC) [Mass/Vol] 34.5 g/dL Normal 30.5-36.0 [facility] Comment on above: Order Comment: Speci men Type: BLOOD SPECIMEN Ordering Facility: [facility] Address: [address] [place] [address] Performed By: #### 5 8410-2 #### [facility] CLIA [id number] [address] OF [facility] MCV (RBC) [Entitic vol] 92.1 fL Normal 80.0-100.0 [facility] Comment on above: Order Comment: Speci men Type: BLOOD SPECIMEN Ordering Facility: [facility] Address: [address] [address] Performed By: #### 5 8410-2 #### [facility] CLIA [id number] [address] Nucleated RBC (Bld) [#/Vol] 10*3/uL Normal <0.01 [facility] Comment on above: Order Comment: Speci men Type: BLOOD SPECIMEN Ordering Facility: [facility] Address: [address] [place] [address] Performed By: #### 5 8410-2 #### [facility] CLIA [id number] [address] [place] Platelet mean volume (Bld) [Entitic vol] 10.8 fL Normal 9.0-12.7 [facility] Comment on above: Order Comment: Speci men Type: BLOOD SPECIMEN Ordering Facility: [facility] Address: [address] [address] Performed By: #### 5 8410-2 #### [facility] CLIA [id number] [address] OF [place] Platelets (Bld) [#/Vol] 108 10*3/uL Low 150-400 [facility] Comment on above: Order Comment: Speci men Type: BLOOD SPECIMEN Ordering Facility: [facility] Address: [address] Performed By: #### 5 8410-2 #### [facility] CLIA [id number] [address] [place] RBC (Bld) [#/Vol] 4.44 10*6/uL Normal 4.20-6.00 [facility] Comment on above: Order Comment: Speci men Type: BLOOD SPECIMEN Ordering Facility: [facility] Address: [address] [address] Performed By: #### 5 8410-2 #### [facility] CLIA [id number] [address] [place] WBC (Bld) [#/Vol] 4.39 10*3/uL Normal 3.70-11.00 [facility] Comment on above: Order Comment: Speci men Type: BLOOD SPECIMEN Ordering Facility: [facility] Address: [address] [place] [address] Performed By: #### 5 8410-2 #### [facility] CLIA [id number] [address] OF [place] Basic metabolic 2000 panelon 11-25-2021 Anion gap [Moles/Vol] 11 mmol/L Normal 9-18 [facility] Comment on above: Order Comment: Speci men Type: BLOOD SPECIMEN Ordering Facility: [facility] Address: [address] [place] [address] Performed By: #### 5 8410-2 #### [facility] CLIA [id number] [address] [place] Calcium [Mass/Vol] 10.0 mg/dL Normal 8.5-10.2 [facility] Comment on above: Order Comment: Speci men Type: BLOOD SPECIMEN Ordering Facility: [facility] Address: [address] [place] [address] Performed By: #### 5 8410-2 #### [facility] CLIA [id number] [address] [place] Chloride [Moles/Vol] 103 mmol/L Normal 97-105 [facility] Comment on above: Order Comment: Speci men Type: BLOOD SPECIMEN Ordering Facility: [facility] Address: [address] [place] [address] Performed By: #### 5 8410-2 #### [facility] CLIA [id number] [address] [place] CO2 [Moles/Vol] 27 mmol/L Normal 22-30 [facility] Comment on above: Order Comment: Speci men Type: BLOOD SPECIMEN Ordering Facility: [facility] Address: [address] [address] Performed By: #### 5 8410-2 #### [facility] CLIA [id number] [address] STATES OF [facility] Creatinine [Mass/Vol] 1.17 mg/dL Normal 0.73-1.22 [facility] Comment on above: Order Comment: Speci men Type: BLOOD SPECIMEN Ordering Facility: [facility] Address: [address] [place] [address] Performed By: #### 5 8410-2 #### [facility] CLIA [id number] [address] OF [place] ESTIMATED GLOMERULAR FILTRATION RATE 72 mL/min/1.73m??? Normal >=60 [facility] Comment on above: Order Comment: Jaycob ding Type: BLOOD SPECIMEN Ordering Facility: [facility] Address: [address] [place] [address] Result Comment: Bonnie mated Glomerular Filtration Rate (eGFR) is calculated using the 2020 CKD-EPI creatinine equation. This equation utilizes serum creatinine, sex, and age as parameters. The creatinine assay has traceable calibration to isotope dilution-mass spectrometry. Refer to KDIGO guidelines for clinical interpretation. In patients with unstable renal function, e.g. those with acute kidney injury, the eGFR may not accurately reflect actual GFR. Performed By: #### 5 8410-2 #### [facility] CLIA [id number] [address] [place] Glucose [Mass/Vol] 107 mg/dL High 74-99 [facility] Comment on above: Order Comment: Jaycob ding Type: BLOOD SPECIMEN Ordering Facility: [facility] Address: [address] [place] [address] Result Comment: The [place] Diabetes [employer] (ADA) provides guidance for cutoff values for fasting glucose and random glucose. The ADA defines fasting as no caloric intake for at least 8 hours. Fasting plasma glucose results between 100 to 125 mg/dL indicate increased risk for diabetes (prediabetes). Fasting plasma glucose results greater than or equal to 126 mg/dL meet the criteria for diagnosis of diabetes. In the absence of unequivocal hyperglycemia, results should be confirmed by repeat testing. In a patient with classic symptoms of hyperglycemia or hyperglycemic crisis, random plasma glucose results greater than or equal to 200 mg/dL meet the criteria for diagnosis of diabetes. Reference: Standards of Medical Care in Diabetes 2016, [place] [employer]. Diabetes Care. 2016.39(Suppl 1). Performed By: #### 5 8410-2 #### [facility] CLIA [id number] [address] Potassium [Moles/Vol] 3.8 mmol/L Normal 3.7-5.1 [facility] Comment on above: Order Comment: Speci men Type: BLOOD SPECIMEN Ordering Facility: [facility] Address: [address] [place] [address] Performed By: #### 5 8410-2 #### [facility] CLIA [id number] [address] Sodium [Moles/Vol] 141 mmol/L Normal 136-144 [facility] Comment on above: Order Comment: Zeinabi men Type: BLOOD SPECIMEN Ordering Facility: [facility] Address: [address] [place] [address] Performed By: #### 5 8410-2 #### [facility] CLIA [id number] [address] Urea nitrogen [Mass/Vol] 13 mg/dL Normal 9-24 [facility] Comment on above: Order Comment: Zeinabi men Type: BLOOD SPECIMEN Ordering Facility: [facility] Address: [address] [place] [address] Performed By: #### 5 8410-2 #### [facility] CLIA [id number] [address] CASE MANAGEMon 11-25-2021 CASE MANAGEM HNO ID: [id number] Author: Reena Conte RN Service: ? Author Type: Registered Nurse Type: Care Mgt Progress Note Filed: 11/25/2021 4:01 PM Note Text: CARE MANAGEMENT PROGRESS NOTE SERVICE DATE: 11/25/2021 SERVICE TIME: 3:55 PM LOS: 0 days Needs Prior to Discharge: Equipment Delivery;Patient/Family Education Still no accepting [facility] agency as of this morning. Additional referrals were sent. Most agencies are unable to staff patient's area to take on new patients. [facility] is able to accept for home pharmacy. ARRON Ayala did teaching with patient at bedside today. Patient voiced some memory issues to her so she is working to schedule a teaching session with patient's for tomorrow. Hopeful for DC tomorrow after teaching with patient's . Met with patient at bedside to provide update. He is aware CM has been unable to find [facility] to come to him. He is agreeable to going to [facility] for PICC dressing change and labs and having [facility] provide teaching, medication and supplies. Phone call to Tamie at [facility] ([phone]). Facesheet and CoPAT faxed to them at [phone]. Tamie will call patient tomorrow to schedule his appointments. If patient does not discharge tomorrow, CM will need to call the infusion center to notify them of no discharge. Bedside RN will need to change patient's PICC dressing prior to discharge so he won't need to go to infusion center until next week. Awaiting confirmation from Brionna at [facility] that patient's is available tomorrow for teaching. She will try to time teaching with patient's 12pm dose tomorrow if able. SIGNATURE: Reena Conte RN PATIENT NAME: Troy Carlson DATE: November 25, 2021 TIME: 3:55 PM PAGER/CONTACT #: [phone] Normal [facility] CBC panel Auto (Bld)on 11-25 Erythrocyte distribution width (RBC) [Ratio] 13.3 % Normal 11.5-15.0 [facility] Comment on above: Order Comment: Speci men Type: BLOOD SPECIMEN Ordering Facility: [facility] Address: [address] [place] [address] Performed By: #### 5 8410-2 #### [facility] CLIA [id number] 1 [place] [address] [place] Hematocrit (Bld) [Volume fraction] 42.7 % Normal 39.0-51.0 [facility] Comment on above: Order Comment: Speci men Type: BLOOD SPECIMEN Ordering Facility: [facility] Address: [address] [place] [address] Performed By: #### 5 8410-2 #### [facility] CLIA [id number] [address] Hemoglobin (Bld) [Mass/Vol] 14.8 g/dL Normal 13.0-17.0 [facility] Comment on above: Order Comment: Speci men Type: BLOOD SPECIMEN Ordering Facility: [facility] Address: [address] [place] [address] Performed By: #### 5 8410-2 #### [facility] CLIA [id number] [address] STATES [facility] MCH (RBC) [Entitic mass] 32.3 pg Normal 26.0-34.0 [facility] Comment on above: Order Comment: Speci men Type: BLOOD SPECIMEN Ordering Facility: [facility] Address: [address] [place] [address] Performed By: #### 5 8410-2 #### [facility] CLIA [id number] [address] STATES OF [facility] MCHC (RBC) [Mass/Vol] 34.7 g/dL Normal 30.5-36.0 [facility] Comment on above: Order Comment: Speci men Type: BLOOD SPECIMEN Ordering Facility: [facility] Address: [address] [place] [address] Performed By: #### 5 8410-2 #### [facility] CLIA [id number] [address] STATES [facility] MCV (RBC) [Entitic vol] 93.2 fL Normal 80.0-100.0 [facility] Comment on above: Order Comment: Speci men Type: BLOOD SPECIMEN Ordering Facility: [facility] Address: [address] [place] [address] Performed By: #### 5 8410-2 #### [facility] CLIA [id number] [address] [place] Nucleated RBC (Bld) [#/Vol] 10*3/uL Normal <0.01 [facility] Comment on above: Order Comment: Speci men Type: BLOOD SPECIMEN Ordering Facility: [facility] Address: [address] [place] [address] Performed By: #### 5 8410-2 #### [facility] CLIA [id number] [address] Platelet mean volume (Bld) [Entitic vol] 10.7 fL Normal 9.0-12.7 [facility] Comment on above: Order Comment: Speci men Type: BLOOD SPECIMEN Ordering Facility: [facility] Address: [address] [place] [address] Performed By: #### 5 8410-2 #### [facility] CLIA [id number] [address] Platelets (Bld) [#/Vol] Normal [facility] Comment on above: Order Comment: Speci men Type: BLOOD SPECIMEN Ordering Facility: [facility] Address: [address] [place] [address] Result Comment: Plat elets Clumped Estimate Low. Performed By: #### 5 8410-2 #### [facility] CLIA [id number] [address] OF [facility] RBC (Bld) [#/Vol] 4.58 10*6/uL Normal 4.20-6.00 [facility] Comment on above: Order Comment: Speci men Type: BLOOD SPECIMEN Ordering Facility: [facility] Address: [address] [place] [address] Performed By: #### 5 8410-2 #### [facility] CLIA [id number] [address] [place] WBC (Bld) [#/Vol] 5.01 10*3/uL Normal 3.70-11.00 [facility] Comment on above: Order Comment: Speci men Type: BLOOD SPECIMEN Ordering Facility: [facility] Address: [address] [place] [address] Performed By: #### 5 8410-2 #### [facility] CLIA [id number] [address] [place] Basic metabolic 2000 panelon 11-24-2021 Anion gap [Moles/Vol] 8 mmol/L Low 9-18 [facility] Comment on above: Order Comment: Speci men Type: BLOOD SPECIMEN Ordering Facility: [facility] Address: [address] [place] [address] Performed By: #### 5 8410-2 #### [facility] CLIA [id number] [address] [place] Calcium [Mass/Vol] 9.3 mg/dL Normal 8.5-10.2 [facility] Comment on above: Order Comment: Speci men Type: BLOOD SPECIMEN Ordering Facility: [facility] Address: [address] [place] [address] Performed By: #### 5 8410-2 #### [facility] CLIA [id number] [address] [place] Chloride [Moles/Vol] 107 mmol/L High 97-105 [facility] Comment on above: Order Comment: Speci men Type: BLOOD SPECIMEN Ordering Facility: [facility] Address: [address] [place] [address] Performed By: #### 5 8410-2 #### [facility] CLIA [id number] [address] [place] CO2 [Moles/Vol] 27 mmol/L Normal 22-30 [facility] Comment on above: Order Comment: Speci men Type: BLOOD SPECIMEN Ordering Facility: [facility] Address: [address] [place] [address] Performed By: #### 5 8410-2 #### [facility] CLIA [id number] [address] [place] Creatinine [Mass/Vol] 1.13 mg/dL Normal 0.73-1.22 [facility] Comment on above: Order Comment: Jaycob ding Type: BLOOD SPECIMEN Ordering Facility: [facility] Address: [address] [address] Performed By: #### 5 8410-2 #### [facility] CLIA [id number] 1 [place] [address] [place] ESTIMATED GLOMERULAR FILTRATION RATE 75 mL/min/1.73m??? Normal >=60 [facility] Comment on above: Order Comment: Jaycob ding Type: BLOOD SPECIMEN Ordering Facility: [facility] Address: [address] [place] [address] Result Comment: Bonnie mated Glomerular Filtration Rate (eGFR) is calculated using the 2020 CKD-EPI creatinine equation. This equation utilizes serum creatinine, sex, and age as parameters. The creatinine assay has traceable calibration to isotope dilution-mass spectrometry. Refer to KDIGO guidelines for clinical interpretation. In patients with unstable renal function, e.g. those with acute kidney injury, the eGFR may not accurately reflect actual GFR. Performed By: #### 5 8410-2 #### [facility] CLIA [id number] 1 [place] [address] [place] Glucose [Mass/Vol] 90 mg/dL Normal 74-99 [facility] Comment on above: Order Comment: Jaycob ding Type: BLOOD SPECIMEN Ordering Facility: [facility] Address: [address] [place] [address] Result Comment: The [place] Diabetes Association (ADA) provides guidance for cutoff values for fasting glucose and random glucose. The ADA defines fasting as no caloric intake for at least 8 hours. Fasting plasma glucose results between 100 to 125 mg/dL indicate increased risk for diabetes (prediabetes). Fasting plasma glucose results greater than or equal to 126 mg/dL meet the criteria for diagnosis of diabetes. In the absence of unequivocal hyperglycemia, results should be confirmed by repeat testing. In a patient with classic symptoms of hyperglycemia or hyperglycemic crisis, random plasma glucose results greater than or equal to 200 mg/dL meet the criteria for diagnosis of diabetes. Reference: Standards of Medical Care in Diabetes 2016, [place] [employer]. Diabetes Care. 2016.39(Suppl 1). Performed By: #### 5 8410-2 #### [facility] CLIA [id number] [address] [place] Potassium [Moles/Vol] 3.7 mmol/L Normal 3.7-5.1 [facility] Comment on above: Order Comment: Speci men Type: BLOOD SPECIMEN Ordering Facility: [facility] Address: [address] [place] [address] Performed By: #### 5 8410-2 #### [facility] CLIA [id number] [address] [place] Sodium [Moles/Vol] 142 mmol/L Normal 136-144 [facility] Comment on above: Order Comment: Speci men Type: BLOOD SPECIMEN Ordering Facility: [facility] Address: [address] [place] [address] Performed By: #### 5 8410-2 #### [facility] CLIA [id number] [address] STATES [facility] Urea nitrogen [Mass/Vol] 11 mg/dL Normal 9-24 [facility] Comment on above: Order Comment: Speci men Type: BLOOD SPECIMEN Ordering Facility: [facility] Address: [address] [place] [address] Performed By: #### 5 8410-2 #### [facility] CLIA [id number] [address] CBC panel Auto (Bld)on 11-24 Erythrocyte distribution width (RBC) [Ratio] 13.5 % Normal 11.5-15.0 [facility] Comment on above: Order Comment: Speci men Type: BLOOD SPECIMEN Ordering Facility: [facility] Address: [address] [place] [address] Performed By: #### 5 8410-2 #### [facility] CLIA [id number] [address] OF [facility] Hematocrit (Bld) [Volume fraction] 39.6 % Normal 39.0-51.0 [facility] Comment on above: Order Comment: Speci men Type: BLOOD SPECIMEN Ordering Facility: [facility] Address: [address] [place] [address] Performed By: #### 5 8410-2 #### [facility] CLIA [id number] [address] Hemoglobin (Bld) [Mass/Vol] 13.8 g/dL Normal 13.0-17.0 [facility] Comment on above: Order Comment: Speci men Type: BLOOD SPECIMEN Ordering Facility: [facility] Address: [address] [place] [address] Performed By: #### 5 8410-2 #### [facility] CLIA [id number] [address] MCH (RBC) [Entitic mass] 32.5 pg Normal 26.0-34.0 [facility] Comment on above: Order Comment: Speci men Type: BLOOD SPECIMEN Ordering Facility: [facility] Address: [address] [place] [address] Performed By: #### 5 8410-2 #### [facility] CLIA [id number] [address] MCHC (RBC) [Mass/Vol] 34.8 g/dL Normal 30.5-36.0 [facility] Comment on above: Order Comment: Speci men Type: BLOOD SPECIMEN Ordering Facility: [facility] Address: [address] [place] [address] Performed By: #### 5 8410-2 #### [facility] CLIA [id number] [address] STATES [facility] MCV (RBC) [Entitic vol] 93.4 fL Normal 80.0-100.0 [facility] Comment on above: Order Comment: Speci men Type: BLOOD SPECIMEN Ordering Facility: [facility] Address: [address] [place] [address] Performed By: #### 5 8410-2 #### [facility] CLIA [id number] 1 [place] [address] [place] Nucleated RBC (Bld) [#/Vol] 10*3/uL Normal <0.01 [facility] Comment on above: Order Comment: Speci men Type: BLOOD SPECIMEN Ordering Facility: [facility] Address: [address] [place] [address] Performed By: #### 5 8410-2 #### [facility] CLIA [id number] 1 [place] [address] [place] Platelet mean volume (Bld) [Entitic vol] 10.6 fL Normal 9.0-12.7 [facility] Comment on above: Order Comment: Speci men Type: BLOOD SPECIMEN Ordering Facility: [facility] Address: [address] [place] [address] Performed By: #### 5 8410-2 #### [facility] CLIA [id number] [address] [place] Platelets (Bld) [#/Vol] 107 10*3/uL Low 150-400 [facility] Comment on above: Order Comment: Speci men Type: BLOOD SPECIMEN Ordering Facility: [facility] Address: [address] [place] [address] Result Comment: Resu lts checked and verified Performed By: #### 5 8410-2 #### [facility] CLIA [id number] [address] [place] RBC (Bld) [#/Vol] 4.24 10*6/uL Normal 4.20-6.00 [facility] Comment on above: Order Comment: Speci men Type: BLOOD SPECIMEN Ordering Facility: [facility] Address: [address] [place] [address] Performed By: #### 5 8410-2 #### [facility] CLIA [id number] [address] [place] WBC (Bld) [#/Vol] 3.80 10*3/uL Normal 3.70-11.00 [facility] Comment on above: Order Comment: Speci men Type: BLOOD SPECIMEN Ordering Facility: [facility] Address: [address] [place] [address] Performed By: #### 5 8410-2 #### [facility] CLIA [id number] 1 [place] [address] [place] Basic metabolic 2000 panelon 11-23-2021 Anion gap [Moles/Vol] 9 mmol/L Normal 9-18 [facility] Comment on above: Order Comment: Speci men Type: BLOOD SPECIMEN Ordering Facility: [facility] Address: [address] [place] [address] Performed By: #### 5 8410-2 #### [facility] CLIA [id number] [address] [place] Calcium [Mass/Vol] 8.3 mg/dL Low 8.5-10.2 [facility] Comment on above: Order Comment: Speci men Type: BLOOD SPECIMEN Ordering Facility: [facility] Address: [address] [place] [address] Performed By: #### 5 8410-2 #### [facility] CLIA [id number] [address] [place] Chloride [Moles/Vol] 110 mmol/L High 97-105 [facility] Comment on above: Order Comment: Speci men Type: BLOOD SPECIMEN Ordering Facility: [facility] Address: [address] [place] [address] Performed By: #### 5 8410-2 #### [facility] CLIA [id number] [address] [place] CO2 [Moles/Vol] 25 mmol/L Normal 22-30 [facility] Comment on above: Order Comment: Speci men Type: BLOOD SPECIMEN Ordering Facility: [facility] Address: [address] [place] [address] Performed By: #### 5 8410-2 #### [facility] CLIA [id number] [address] [place] Creatinine [Mass/Vol] 1.06 mg/dL Normal 0.73-1.22 [facility] Comment on above: Order Comment: Jaycob ding Type: BLOOD SPECIMEN Ordering Facility: [facility] Address: [address] [address] Performed By: #### 5 8410-2 #### [facility] CLIA [id number] 1 [place] [address] [place] ESTIMATED GLOMERULAR FILTRATION RATE 81 mL/min/1.73m??? Normal >=60 [facility] Comment on above: Order Comment: Jaycob ding Type: BLOOD SPECIMEN Ordering Facility: [facility] Address: [address] [place] [address] Result Comment: Bonnie mated Glomerular Filtration Rate (eGFR) is calculated using the 2020 CKD-EPI creatinine equation. This equation utilizes serum creatinine, sex, and age as parameters. The creatinine assay has traceable calibration to isotope dilution-mass spectrometry. Refer to KDIGO guidelines for clinical interpretation. In patients with unstable renal function, e.g. those with acute kidney injury, the eGFR may not accurately reflect actual GFR. Performed By: #### 5 8410-2 #### [facility] CLIA [id number] 1 [place] [address] [place] Glucose [Mass/Vol] 111 mg/dL High 74-99 [facility] Comment on above: Order Comment: Jaycob ding Type: BLOOD SPECIMEN Ordering Facility: [facility] Address: [address] [place] [address] Result Comment: The [place] Diabetes Association (ADA) provides guidance for cutoff values for fasting glucose and random glucose. The ADA defines fasting as no caloric intake for at least 8 hours. Fasting plasma glucose results between 100 to 125 mg/dL indicate increased risk for diabetes (prediabetes). Fasting plasma glucose results greater than or equal to 126 mg/dL meet the criteria for diagnosis of diabetes. In the absence of unequivocal hyperglycemia, results should be confirmed by repeat testing. In a patient with classic symptoms of hyperglycemia or hyperglycemic crisis, random plasma glucose results greater than or equal to 200 mg/dL meet the criteria for diagnosis of diabetes. Reference: Standards of Medical Care in Diabetes 2016, [place] Diabetes Association. Diabetes Care. 2016.39(Suppl 1). Performed By: #### 5 8410-2 #### [facility] CLIA [id number] [address] [place] Potassium [Moles/Vol] 3.0 mmol/L Low 3.7-5.1 [facility] Comment on above: Order Comment: Speci men Type: BLOOD SPECIMEN Ordering Facility: [facility] Address: [address] [place] [address] Performed By: #### 5 8410-2 #### [facility] CLIA [id number] [address] [place] Sodium [Moles/Vol] 144 mmol/L Normal 136-144 [facility] Comment on above: Order Comment: Speci men Type: BLOOD SPECIMEN Ordering Facility: [facility] Address: [address] [place] [address] Performed By: #### 5 8410-2 #### [facility] CLIA [id number] [address] STATES [facility] Urea nitrogen [Mass/Vol] 9 mg/dL Normal 9-24 [facility] Comment on above: Order Comment: Speci men Type: BLOOD SPECIMEN Ordering Facility: [facility] Address: [address] [place] [address] Performed By: #### 5 8410-2 #### [facility] CLIA [id number] [address] CBC panel Auto (Bld)on 11-23 Erythrocyte distribution width (RBC) [Ratio] 13.7 % Normal 11.5-15.0 [facility] Comment on above: Order Comment: Speci men Type: BLOOD SPECIMEN Ordering Facility: [facility] Address: [address] [place] [address] Performed By: #### 5 8410-2 #### [facility] CLIA [id number] [address] OF [facility] Hematocrit (Bld) [Volume fraction] 37.9 % Low 39.0-51.0 [facility] Comment on above: Order Comment: Speci men Type: BLOOD SPECIMEN Ordering Facility: [facility] Address: [address] [place] [address] Performed By: #### 5 8410-2 #### [facility] CLIA [id number] [address] Hemoglobin (Bld) [Mass/Vol] 13.1 g/dL Normal 13.0-17.0 [facility] Comment on above: Order Comment: Speci men Type: BLOOD SPECIMEN Ordering Facility: [facility] Address: [address] [place] [address] Performed By: #### 5 8410-2 #### [facility] CLIA [id number] [address] MCH (RBC) [Entitic mass] 31.8 pg Normal 26.0-34.0 [facility] Comment on above: Order Comment: Speci men Type: BLOOD SPECIMEN Ordering Facility: [facility] Address: [address] [place] [address] Performed By: #### 5 8410-2 #### [facility] CLIA [id number] [address] MCHC (RBC) [Mass/Vol] 34.6 g/dL Normal 30.5-36.0 [facility] Comment on above: Order Comment: Speci men Type: BLOOD SPECIMEN Ordering Facility: [facility] Address: [address] [place] [address] Performed By: #### 5 8410-2 #### [facility] CLIA [id number] [address] MCV (RBC) [Entitic vol] 92.0 fL Normal 80.0-100.0 [facility] Comment on above: Order Comment: Speci men Type: BLOOD SPECIMEN Ordering Facility: [facility] Address: [address] [place] [address] Performed By: #### 5 8410-2 #### [facility] CLIA [id number] [address] [place] Nucleated RBC (Bld) [#/Vol] 10*3/uL Normal <0.01 [facility] Comment on above: Order Comment: Speci men Type: BLOOD SPECIMEN Ordering Facility: [facility] Address: [address] [place] [address] Performed By: #### 5 8410-2 #### [facility] CLIA [id number] [address] [place] Platelet mean volume (Bld) [Entitic vol] 10.6 fL Normal 9.0-12.7 [facility] Comment on above: Order Comment: Speci men Type: BLOOD SPECIMEN Ordering Facility: [facility] Address: [address] [place] [address] Performed By: #### 5 8410-2 #### [facility] CLIA [id number] [address] [place] Platelets (Bld) [#/Vol] 96 10*3/uL Low 150-400 [facility] Comment on above: Order Comment: Speci men Type: BLOOD SPECIMEN Ordering Facility: [facility] Address: [address] [place] [address] Result Comment: Plat elet count confirmed by manual review of peripheral blood smear Performed By: #### 5 8410-2 #### [facility] CLIA [id number] [address] [place] RBC (Bld) [#/Vol] 4.12 10*6/uL Low 4.20-6.00 [facility] Comment on above: Order Comment: Speci men Type: BLOOD SPECIMEN Ordering Facility: [facility] Address: [address] [place] [address] Performed By: #### 5 8410-2 #### [facility] CLIA [id number] [address] [place] WBC (Bld) [#/Vol] 4.06 10*3/uL Normal 3.70-11.00 [facility] Comment on above: Order Comment: Speci men Type: BLOOD SPECIMEN Ordering Facility: [facility] Address: [address] [address] Performed By: #### 5 8410-2 #### [facility] CLIA [id number] [address] [place] Basic metabolic 2000 panelon 11-22-2021 Anion gap [Moles/Vol] 9 mmol/L Normal 9-18 [facility] Comment on above: Order Comment: Speci men Type: BLOOD SPECIMEN Ordering Facility: [facility] Address: [address] [place] [address] Performed By: #### 2 4321-2 #### [facility] CLIA [id number] [address] [place] Calcium [Mass/Vol] 8.7 mg/dL Normal 8.5-10.2 [facility] Comment on above: Order Comment: Speci men Type: BLOOD SPECIMEN Ordering Facility: [facility] Address: [address] [place] [address] Performed By: #### 2 4321-2 #### [facility] CLIA [id number] [address] STATES OF [facility] Chloride [Moles/Vol] 108 mmol/L High 97-105 [facility] Comment on above: Order Comment: Speci men Type: BLOOD SPECIMEN Ordering Facility: [facility] Address: [address] [address] Performed By: #### 2 4321-2 #### [facility] CLIA [id number] [address] [place] CO2 [Moles/Vol] 24 mmol/L Normal 22-30 [facility] Comment on above: Order Comment: Speci men Type: BLOOD SPECIMEN Ordering Facility: [facility] Address: [address] [place] [address] Performed By: #### 2 4321-2 #### [facility] CLIA [id number] [address] [place] Creatinine [Mass/Vol] 0.93 mg/dL Normal 0.73-1.22 [facility] Comment on above: Order Comment: Jaycob ding Type: BLOOD SPECIMEN Ordering Facility: [facility] Address: [address] [address] Performed By: #### 2 4321-2 #### [facility] CLIA [id number] [address] ESTIMATED GLOMERULAR FILTRATION RATE 95 mL/min/1.73m??? Normal >=60 [facility] Comment on above: Order Comment: Jaycob ding Type: BLOOD SPECIMEN Ordering Facility: [facility] Address: [address] [place] [address] Result Comment: Bonnie mated Glomerular Filtration Rate (eGFR) is calculated using the 2020 CKD-EPI creatinine equation. This equation utilizes serum creatinine, sex, and age as parameters. The creatinine assay has traceable calibration to isotope dilution-mass spectrometry. Refer to KDIGO guidelines for clinical interpretation. In patients with unstable renal function, e.g. those with acute kidney injury, the eGFR may not accurately reflect actual GFR. Performed By: #### 2 4321-2 #### [facility] CLIA [id number] [address] [place] [address] STATES OF [facility] Glucose [Mass/Vol] 82 mg/dL Normal 74-99 [facility] Comment on above: Order Comment: Jaycob timur Type: BLOOD SPECIMEN Ordering Facility: [facility] Address: [address] [address] Result Comment: The [place] Diabetes Association (ADA) provides guidance for cutoff values for fasting glucose and random glucose. The ADA defines fasting as no caloric intake for at least 8 hours. Fasting plasma glucose results between 100 to 125 mg/dL indicate increased risk for diabetes (prediabetes). Fasting plasma glucose results greater than or equal to 126 mg/dL meet the criteria for diagnosis of diabetes. In the absence of unequivocal hyperglycemia, results should be confirmed by repeat testing. In a patient with classic symptoms of hyperglycemia or hyperglycemic crisis, random plasma glucose results greater than or equal to 200 mg/dL meet the criteria for diagnosis of diabetes. Reference: Standards of Medical Care in Diabetes 2016, [place] Diabetes Association. Diabetes Care. 2016.39(Suppl 1). Performed By: #### 2 4321-2 #### [facility] CLIA [id number] [address] STATES OF [facility] Potassium [Moles/Vol] 3.7 mmol/L Normal 3.7-5.1 [facility] Comment on above: Order Comment: Speci men Type: BLOOD SPECIMEN Ordering Facility: [facility] Address: [address] [place] [address] Performed By: #### 2 4321-2 #### [facility] CLIA [id number] [address] STATES OF [facility] Sodium [Moles/Vol] 141 mmol/L Normal 136-144 [facility] Comment on above: Order Comment: Speci men Type: BLOOD SPECIMEN Ordering Facility: [facility] Address: [address] [place] [address] Performed By: #### 2 4321-2 #### [facility] CLIA [id number] [address] STATES [facility] Urea nitrogen [Mass/Vol] 10 mg/dL Normal 9-24 [facility] Comment on above: Order Comment: Speci men Type: BLOOD SPECIMEN Ordering Facility: [facility] Address: [address] [place] [address] Performed By: #### 2 4321-2 #### [facility] CLIA [id number] [address] [place] CASE MANAGEMon 11-22-2021 CASE MANAGEM HNO ID: [id number] Author: PARIS Smith Service: Case Management Author Type: Short Order Fry Cook Type: Care Mgt Progress Note Filed: 11/22/2021 4:00 PM Note Text: CARE MANAGEMENT PROGRESS NOTE SERVICE DATE: 11/22/2021 SERVICE TIME: 4:00 PM LOS: 0 days Sw made phone call to patient's and she will learn how to do Iv antibiotics at home. Sw made phone call back to urology and received phone for surgery residents who will relay message that patient is unable to be discharged today due to not having accepting home care. Once we have accepting c patient can be discharged home. 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 Last discharge within 30 days: No Advance Directive: Current Advance Directive: None Manager Of Selection And Assessment Attempted to Assist with AD Completion: Yes Action: Patient Unwilling Health LiteracyHow often do you need to have someone help you when you read instructions, pamphlets, or other written material from your doctor or pharmacy? : 1 - Never How confident are you filling out medical forms by yourself?: 1 - Extremely Baseline Mental Status Prior to this Illness what was the patient's Baseline Mental Status?: Alert AND Oriented Prior to this illness, has anyone described the patient having any of the following behaviors?: Not Applicable Relationship of the informant to the patient:: Self Functional Status: Independent Does Patient Currently Receive Any Community Services or Home Care?: Counseling;Psychiatry Equipment Prior to Admission: Oxygen Liters per minute: 2 as need it Has the Patient Been in a Shelter Facility in the Past 30 days?: No SOCIAL: Living Arrangements: Home Lives With: Spouse Financial Resources: Unemployed Primary Contact: Extended Emergency Contact Information Primary Emergency Contact: Jessica Sierra Address: [address] [place] Mobile Relation: Spouse Supportive Patient Contact:: Yes Contact Resources: Significant Other Caregiver AssessmentCaregiver is ready, willing and able to meet the patient's needs as recommended by the inter-professional team:: Yes Does the patient have an acute stroke diagnosis, or has the patient had a stroke during this admission?: No Patient's transition needs and plan for meeting these needs: anticipate return home with iv anticipate and home care Patient's perception of need for this admission: Medication Adherance I am convinced of the importance of my prescription medication: 0 - Agree Completely I worry that my prescription medication will do more harm than good to me : 0 - Disagree Completely I feel financially burdened by my qch-zm-wvudux expenses for my prescription medication:: 0 - Disagree Completely Risk Score: 0 Patient is categorized as: Low risk < 2 Are you interested in bedside delivery of your medications? No Is Patient Psychosocially Complex?: No ASSESSMENT AND PLAN: Medical Needs: Medical Needs: Two or more chronic diseases Psychosocial Needs: Psychosocial Needs: None;Mental Health Diagnosis Mental Health Information: ptsd and ALCOHOL USE/ABUSE CAGE ASSESSMENT Two or More Affirmative Responses Suggest a Client is a Problem Drinker. - Have you felt the need to cut down on your drinking? No - Do you feel annoyed by people complaining about your drinking? No - Do you ever feel guilty about your drinking? No - Do you ever drink an eye-rubber press operator in the morning to relieve shakes? No FREEDOM OF CHOICE EXPLAINED: [place] of Choice Given: Yes Provider List: Home Care;Home Care Pharmacy Provider list within the patient's requested geographic area shared with the patient/family: No Quality and resource use metrics shared with the patient that are relevant to the patient's goals of care and treatment preferences:: Yes Reason: no preference POTENTIAL TRANSITION PLANS Home;Home Care;Home Care Pharmacy Patient is from home with , daughter and father in law. Patient independent with adl's. Patient drives. Patient has psych and counseling in the community. Patient has o2 concentrator at home and uses as needed can't remember name of company. 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 Patient has no preference for iv antibiotics at home referral placed for pharmacy and [facility] copat information sent. SIGNATURE: PARIS Smith PATIENT NAME: Troy Carlson DATE: November 22, 2021 TIME: 1:45 PM PAGER/CONTACT #: [phone] [facility] 11-22-2021 CNPN Telephone ([facility]) -- ROBYNTROY TERAN ([id number]) 1965 M Date Time Provider Department 11/22/21 JOSE RAMON HUDSON During your visit today, we recorded the following information about you: Allergies As of Date: 11/22/2021 Noted Allergy Reaction ACETAMINOPHEN 04/27/2017 4 - Hives HYDROCODONE 04/27/2017 4 - Hives MORPHINE 08/05/2019 4 - Hives 14 - Other: See Comments LATEX 04/22/2013 2 - Rash KETOROLAC 11/21/2021 16 - Unknown Comments: Pt states allergy, told not to take with liver transplant VANCOMYCIN (BULK) 03/26/2016 2 - Rash 9 - Itching VICODIN (HYDROCODONE-ACETAMINOPHE* 08/20/2009 9 - Itching Date Reviewed: 11/22/2021 Reviewed by: Soumya Tello RN - Fully Assessed Reason for Visit: error [307] Prescriptions as of 11/22/2021 - tacrolimus IR (PROGRAF) 0.5 mg capsule Take 1 capsule (0.5 mg) by mouth twice daily. Take with 1mg capsule for total 1.5mg twice daily - tacrolimus IR (PROGRAF) 1 mg capsule Take 1 capsule (1mg) by mouth twice daily. Take in addition to one 0.5mg capsule for total dose of 1.5mg twice daily - pantoprazole DR (PROTONIX) 40 mg tablet Take 1 tablet by mouth daily before breakfast. Take on empty stomach, 1/2 hr before meal. - simvastatin (ZOCOR) 40 mg tablet Take 1 tablet by mouth daily at bedtime. - sertraline (ZOLOFT) 100 mg tablet Take 2 tablets at bedtime. - buPROPion XL (WELLBUTRIN XL) 300 mg 24 hr tablet Take 1 tablet by mouth once daily. - metoprolol succinate ER (TOPROL XL) 25 mg 24 hr tablet Take 1 tablet by mouth once daily. - alendronate (FOSAMAX) 70 mg tablet Take 1 tablet by mouth one time a week. Take with a full glass of water, on an empty stomach; do NOT lie down for 30minutes. - lisinopril (ZESTRIL, PRINIVIL) 5 mg tablet Take 1 tablet by mouth once daily. - cholecalciferol (VITAMIN D-3) 5,000 unit tab Take 1 tablet by mouth once daily. - Garlic 1,000 mg cap Take 1 capsule by mouth once daily. - ursodiol (ACTIGALL) 300 mg capsule Take 1 capsule by mouth three times daily. - mupirocin (BACTROBAN) 2 % ointment Apply 1 application to affected area three times daily. Location: abdomen - Transparent Dressings (TEGADERM FRAME STYLE) 6 X 8 bndg Apply 1 application to affected area as needed. Facility-Administered Medications as of 11/22/2021 - piperacillin-tazobactam 3.375 g in D5W 50 mL Vial-Bag (ZOSYN) - sodium chloride 0.9 % (flush) 10 mL (BD POSIFLUSH) - sodium chloride 0.9 % (flush) 20 mL (BD POSIFLUSH) - simvastatin 40 mg tab(s) (ZOCOR) - lisinopril 5 mg tab(s) (ZESTRIL, PRINIVIL) - metoprolol succinate ER 25 mg tab(s) (TOPROL XL) - tacrolimus IR 0.5 mg cap(s) (PROGRAF) - tacrolimus IR 1 mg cap(s) (PROGRAF) - buPROPion XL 300 mg tab(s) (WELLBUTRIN XL) - pantoprazole DR 40 mg tab(s) (PROTONIX) - sertraline 200 mg tab(s) (ZOLOFT) - ondansetron (PF) 4 mg injection (ZOFRAN) - docusate sodium 100 mg cap(s) (COLACE) - ciprofloxacin iv piggyback 400 mg in D5W 200 mL (CIPRO) - belladonna-opium 16.2-60 mg 1 Suppository suppository (B and O 16-A) - NaCl 0.9% iv flush bag - sodium chloride 0.9 % (flush) 3-5 mL (BD POSIFLUSH) - lactated ringers iv infusion - metoclopramide HCl 10 mg injection (REGLAN) - oxyCODONE IR 5-10 mg tab(s) (ROXICODONE) Meds Comments as of 07/15/2018: Pt reports ALL Medications are accurate 10/24/2016 68 07/15/18 The medications are managed by this patient by: CAREGIVER Elissa Smith, PharmD Problem List As Of Date 11/22/2021 Noted Resolved Thrombocytopenia [D69.6] 08/20/2009 04/22/2017 Hepatitis C [B19.20] 08/20/2009 11/03/2014 Splenomegaly [R16.1] 08/20/2009 Bilateral inguinal hernia (BIH) [K40.20] 12/26/2011 Epididymitis [N45.1] 11/24/2013 04/22/2017 Testalgia [N50.819] 11/24/2013 04/22/2017 Cirrhosis [K74.60] 04/22/2017 Syncope [R55] 01/03/2014 04/22/2017 Pancytopenia (HCC) [D61.818] 03/11/2014 03/12/2014 Hypoxemia [R09.02] 03/11/2014 10/15/2015 COPD (chronic obstructive pulmonary disease) (H*03/11/2014 03/12/2014 Coagulopathy (HCC) [D68.9] 03/11/2014 04/22/2017 HCV (hepatitis C virus) [B19.20] 03/11/2014 Hepatopulmonary syndrome (HCC) [K76.81] 03/12/2014 08/19/2018 Bicytopenia [D75.89] 03/12/2014 04/22/2017 Adjustment disorder with mixed anxiety and depr*05/23/2014 PFO (patent foramen ovale) [Q21.1] 07/11/2014 Caries [K02.9] 08/15/2014 Retained dental root [K08.3] 08/15/2014 SUMMARY 08/31/2014 07/24/2016 Fever and chills [R50.9] 08/31/2014 04/22/2017 Fever, low grade [R50.9] 11/03/2014 04/22/2017 UTI (lower urinary tract infection) [N39.0] 04/08/2015 04/22/2017 Hepatic encephalopathy (HCC) [K72.90] 04/08/2015 04/22/2017 Sarcoidosis (HCC) [D86.9] 04/17/2015 Chronic hepatitis C without hepatic coma (HCC) *05/17/2015 Infection of other external stoma of urinary tr*05/17/2015 04/22/2017 SUMMARY 06/14/2015 09/12/2015 SOB (shortness of breath) [R06.02] (more content not included)... Normal [facility] CNPN Telephone (AKURFL) -- TROY CARLSON ([id number]) 1965 M Date Time Provider Department 11/22/21 FOSTER OGDEN During your visit today, we recorded the following information about you: Foster Ogden MD 11/22/2021 6:40 AM Signed Patient had TURP yesterday. He would likely be discharged with catheter. He had a rare bacteria growing a urine culture so infectious disease is being consulted inpatient. So he might not be discharged today. He will need a voiding trial catheter removal and post void residual check sometime next week Can schedule with Ash and nurse visit in [place] if possible Graciela Guzman COORD 11/25/2021 3:15 PM Signed Pt is still in the hospital. Graciela Guzman COORD Graciela Guzman COORD 12/03/2021 10:35 AM Signed Pt did not have cath and has follow up with Ash Dasilva. Graciela Guzman COORD Allergies As of Date: 11/22/2021 Noted Allergy Reaction ACETAMINOPHEN 04/27/2017 4 - Hives HYDROCODONE 04/27/2017 4 - Hives MORPHINE 08/05/2019 4 - Hives 14 - Other: See Comments LATEX 04/22/2013 2 - Rash KETOROLAC 11/21/2021 16 - Unknown Comments: Pt states allergy, told not to take with liver transplant VANCOMYCIN (BULK) 03/26/2016 2 - Rash 9 - Itching VICODIN (HYDROCODONE-ACETAMINOPHE* 08/20/2009 9 - Itching Date Reviewed: 11/22/2021 Reviewed by: Meghan Asher RN - Fully Assessed Reason for Visit: Appointment [186] Prescriptions as of 12/03/2021 - ciprofloxacin HCl (CIPRO) 500 mg tablet Take 1 tablet by mouth twice daily for 14 days. - sulfamethoxazole-trimethop rim (BACTRIM DS,SEPTRA DS) 800-160 mg per tablet Smz/Tmp Ds Active 1 TABLET MOWEFR January 24, 2016 11:18am - tacrolimus IR (PROGRAF) 0.5 mg capsule Take 1 capsule (0.5 mg) by mouth twice daily. Take with 1mg capsule for total 1.5mg twice daily - tacrolimus IR (PROGRAF) 1 mg capsule Take 1 capsule (1mg) by mouth twice daily. Take in addition to one 0.5mg capsule for total dose of 1.5mg twice daily - pantoprazole DR (PROTONIX) 40 mg tablet Take 1 tablet by mouth daily before breakfast. Take on empty stomach, 1/2 hr before meal. - simvastatin (ZOCOR) 40 mg tablet Take 1 tablet by mouth daily at bedtime. - sertraline (ZOLOFT) 100 mg tablet Take 2 tablets at bedtime. - buPROPion XL (WELLBUTRIN XL) 300 mg 24 hr tablet Take 1 tablet by mouth once daily. - metoprolol succinate ER (TOPROL XL) 25 mg 24 hr tablet Take 1 tablet by mouth once daily. - alendronate (FOSAMAX) 70 mg tablet Take 1 tablet by mouth one time a week. Take with a full glass of water, on an empty stomach; do NOT lie down for 30minutes. - lisinopril (ZESTRIL, PRINIVIL) 5 mg tablet Take 1 tablet by mouth once daily. - cholecalciferol (VITAMIN D-3) 5,000 unit tab Take 1 tablet by mouth once daily. - Garlic 1,000 mg cap Take 1 capsule by mouth once daily. - ursodiol (ACTIGALL) 300 mg capsule Take 1 capsule by mouth three times daily. - mupirocin (BACTROBAN) 2 % ointment Apply 1 application to affected area three times daily. Location: abdomen - Transparent Dressings (TEGADERM FRAME STYLE) 6 X 8 bndg Apply 1 application to affected area as needed. Facility-Administered Medications as of 12/03/2021 - perflutren lipid microspheres 1.3 mL in NaCl (PF) 0.9% 10 mL injection (DEFINITY) - sodium chloride 0.9 % (flush) 10 mL (BD POSIFLUSH) Meds Comments as of 07/15/2018: Pt reports ALL Medications are accurate 10/24/2016 70 07/15/18 The medications are managed by this patient by: CAREGIVER Elissa Smith, PharmD Problem List As Of Date 11/22/2021 Noted Resolved Thrombocytopenia [D69.6] 08/20/2009 04/22/2017 Hepatitis C [B19.20] 08/20/2009 11/03/2014 Splenomegaly [R16.1] 08/20/2009 Bilateral inguinal hernia (BIH) [K40.20] 12/26/2011 Epididymitis [N45.1] 11/24/2013 04/22/2017 Testalgia [N50.819] 11/24/2013 04/22/2017 Cirrhosis [K74.60] 04/22/2017 Syncope [R55] 01/03/2014 04/22/2017 Pancytopenia (HCC) [D61.818] 03/11/2014 03/12/2014 Hypoxemia [R09.02] 03/11/2014 10/15/2015 COPD (chronic obstructive pulmonary disease) (H*03/11/2014 03/12/2014 Coagulopathy (HCC) [D68.9] 03/11/2014 04/22/2017 HCV (hepatitis C virus) [B19.20] 03/11/2014 Hepatopulmonary syndrome (HCC) [K76.81] 03/12/2014 08/19/2018 Bicytopenia [D75.89] 03/12/2014 04/22/2017 Adjustment disorder with mixed anxiety and depr*05/23/2014 PFO (patent foramen ovale) [Q21.1] 07/11/2014 Caries [K02.9] 08/15/2014 Retained dental root [K08.3] 08/15/2014 SUMMARY 08/31/2014 07/24/2016 Fever and chills [R50.9] 08/31/2014 04/22/2017 Fever, low grade [R50.9] 11/03/2014 04/22/2017 UTI (lower urinary tract infection) [N39.0] 04/08/2015 04/22/2017 Hepatic encephalopathy (HCC) [K72.90] 04/08/2015 04/22/2017 Sarcoidosis (HCC) [D86.9] 04/17/2015 Chronic hepatitis C without hepatic coma (HCC) *05/17/2015 Infection of other external stoma of urinary tr* (more content not included)... [facility] CONSULTon 11-22-2021 CONSULT HNO ID: [id number] Author: Jose Ramon Hudson MD Service: Infectious Disease Author Type: Physician Type: Consults Filed: 11/22/2021 6:03 PM Note Text: INITIAL CONSULT INFECTIOUS DISEASE SERVICE DATE: 11/22/2021 SERVICE TIME: 10:35 AM We were asked to evaluate Mr. Troy Carlson, a 56 year old yo male by Foster Branch for two organisms in urine culture: pseudomonas and achromobacter; multiple resistances; please provide recs on Abx and mgmt. Our findings and recommendations will be communicated through the shared medical record. ASSESSMENT: 1. PsA / Achromobacter dentrificans/xylosoxidans complicated UTI 2. Liver transplant on tacrolimus Estimated Creatinine Clearance: 80.6 mL/min (based on SCr of 0.93 mg/dL). RECOMMENDATIONS: - cont Zosyn continuous + cipro 500mg PO BID, 2 weeks; no ID follow up appointment needed - CoPAT in chart (chart review ->Encounters -> (uncheck Hide Add'l Visitis) --> CoPAT Start --> CoPAT Start Report) - picc ordered - ok to dc once CoPAT arranged + picc placed - ID will sign off. Please do not hesitate to call us if there is any questions Subjective SUBJECTIVE: HPI: 56 year old male History of liver transplant, BPH status post TURP 11/21/21 presented to [facility] 11/21/2021 for Underwent cystoscopy, TURP 11/21/2021. Most recent urine culture 11/07/2021 grew Pseudomonas species and Achromobacter dentrificans/xylosoxidans Active Antimicrobials (From admission, onward) Start Stop 11/22/21 1200 piperacillin-tazobactam 3.375 g in D5W 50 mL Vial-Bag (ZOSYN) 3.375 g, INTRAVENOUS, EVERY 6 HOURS -- 11/22/21 0400 ciprofloxacin iv piggyback 400 mg in D5W 200 mL (CIPRO) 400 mg, INTRAVENOUS, EVERY 12 HOURS -- Immunosuppressants: None Current other medications reviewed. Current Facility-Administered Medications Medication Dose Route Frequency - simvastatin 40 mg tab(s) (ZOCOR) 40 mg ORAL AT BEDTIME - lisinopril 5 mg tab(s) (ZESTRIL, PRINIVIL) 5 mg ORAL DAILY - metoprolol succinate ER 25 mg tab(s) (TOPROL XL) 25 mg ORAL DAILY - tacrolimus IR 0.5 mg cap(s) (PROGRAF) 0.5 mg ORAL BID - tacrolimus IR 1 mg cap(s) (PROGRAF) 1 mg ORAL BID - buPROPion XL 300 mg tab(s) (WELLBUTRIN XL) 300 mg ORAL DAILY - pantoprazole DR 40 mg tab(s) (PROTONIX) 40 mg ORAL DAILY (6 AM) - sertraline 200 mg tab(s) (ZOLOFT) 200 mg ORAL AT BEDTIME - ondansetron (PF) 4 mg injection (ZOFRAN) 4 mg INTRAVENOUS q 6 H PRN - docusate sodium 100 mg cap(s) (COLACE) 100 mg ORAL BID - ciprofloxacin iv piggyback 400 mg in D5W 200 mL (CIPRO) 400 mg INTRAVENOUS q 12 H - belladonna-opium 16.2-60 mg 1 Suppository suppository (B and O 16-A) 1 Suppository RECTAL BID PRN - NaCl 0.9% iv flush bag 20 mL INTRAVENOUS PRN - sodium chloride 0.9 % (flush) 3-5 mL (BD POSIFLUSH) 3-5 mL INTRAVENOUS q 12 H - lactated ringers iv infusion 75 mL/hr INTRAVENOUS CONTINUOUS - metoclopramide HCl 10 mg injection (REGLAN) 10 mg INTRAVENOUS q 8 H PRN - oxyCODONE IR 5-10 mg tab(s) (ROXICODONE) 5-10 mg ORAL q 4 H PRN - piperacillin-tazobactam 3.375 g in D5W 50 mL Vial-Bag (ZOSYN) 3.375 g INTRAVENOUS q 6 H PAST MEDICAL HISTORY Diagnosis Date - BPH with obstruction/lower urinary tract symptoms - Cirrhosis (HCC) - ETOH abuse stopped etoh in 09/27 - H/O liver transplant (HCC) 10/03/2015 - Hepatitis C - Hepatopulmonary syndrome (HCC) used oxygen 3 to 6 liters and off O2 since liver transplant - Hypertension - Marijuana use, continuous 12/28/2020 - MRSA (methicillin resistant Staphylococcus aureus) 11/2011 - New onset seizure (HCC) 10/05/2015 06/11/[address] Anurag Doyle:noted one seizure after transplant. No seizures since, off keppra.Initial EEG showed small amplitudes polyspikes overriding periodic patterns), later EEG became normal, brain MRI unremarkable. He has been off Keppra since March 2016. No further seizure. - Non-ischemic cardiomyopathy (HCC) - Osteoporosis - Panic attacks - Prostatitis 11/2011 - Psoriasis - PTSD (post-traumatic stress disorder) - Sarcoidosis of the lungs - Splenomegaly - Thrombocytopenia (HCC) Pancytopenia resolved after liver transplant - Unspecified hypothyroidism Hypothyroidism PAST SURGICAL HISTORY Procedure Laterality Date - COLONOSCOPY FLX DX W/COLLJ SPEC WHEN PFRMD 10/14/13 Colonoscopy - ESOPHAGOGASTRODUODENOSCOPY TRANSORAL DIAGNOSTIC 10/14/13 EGD - ESOPHAGOGASTRODUODENOSCOPY TRANSORAL DIAGNOSTIC 01/31/2019 EGD - INGUINAL HERNIA REPAIR HX 10/15/2016 - LIVER BIOPSY - NERVE ALTERATION 83? LEFT ELBOW ABOUT - PAST SURGICAL HISTORY OF 83? Deviated septum - PAST SURGICAL HISTORY OF Liver transplant : 09/2015 - PAST SURGICAL HISTORY OF PFO repair 2015 - PICC LINE INSERT/CONSULT 11/01/2015 - TONSILLECTOMY PRIMARY/SECONDARY Tonsillectomy Social History Tobacco Use - Smoking status: Former Smoker Packs/day: 1.00 Years: 23.00 Pack years: 23.00 Types: Cigarettes Start date: 09/14/1979 Quit estiven (more content not included)... Normal [facility] NUTRITIONon 11-22-2021 NUTRITION HNO ID: [id number] Author: Kristopher Morton RD Service: Nutrition Therapy Author Type: Registered Dietitian Type: Nutrition Filed: 11/22/2021 1:57 PM Note Text: NUTRITION THERAPY INITIAL ASSESSMENT SERVICE DATE: 11/22/2021 SERVICE TIME: 1:32 PM Nutrition Assessment: Recommended Malnutrition Diagnosis: Severe Protein-Calorie Malnutrition In the context of: Chronic Illness or Injury Based on: Insufficient Energy Intake;Unintentional Weight Loss;Muscle Loss Nutrition Diagnosis: Problem: Suboptimal protein/energy intake Related to: Unknown etiology (pt endorses usp ongoing anorexia, only able to eat when smoking pot) As evidenced by: Medical condition;Patient/family self-report;Weight loss Estimated kilocalorie needs: 4397-3477 Calorie Calculation Method: 25-35 kcals/kg Estimated protein needs (grams): 66-99 Grams protein determined by: 1.0 - 1.5 g/kg Care Plan: Continue current diet Supplements: Boost Glucose Control 1) will order boost 3 x daily Monitor and Evaluation: Meet greater than 75% of estimated needs;Monitor tolerance to tube feeding;Monitor fluid/electrolyte balance;Monitor labs, I/Os, vital signs, weight Discharge Recommendations: Oral Supplements Oral Supplements: continue carnation instant breakfast at home HPI: 56 yo male presents for planned procedure. Patient is S/P cystoscopy, transurethral resection of prostate on 11/21 There are no active hospital problems to display for this patient. Intake History: Nutrition Intake Prior to Admission: Less than 50% estimated energy needs greater than or equal to 1 month Current Intake: 0-25% estimated energy needs Over: pt endorses he's only able to eat jello or a few other foods. appetite still poor, willing to drink boost daily Diet Orders (From admission, onward) Start Ordered 11/21/212044 DIET REGULAR START NOW 11/21/212040 Anthropometrics: Height: 170.2 cm (5' 7) Weight: 65.8 kg (145 lb) Dosing Weight: 66 kg (145 lb 8.1 oz) Body mass index is 22.71 kg/m?. Normal Weight change percentage over time: wt has decreased by 10% over 2 months-Clinically significant-pt endorses this is due to poor appetite, only able to eat if he smokes pot Physical Exam: Subcutaneous fat loss: Moderate Muscle loss: Moderate Potential micronutrient deficiency: Teeth;Skin Edema/Ascites: No edema GI Symptoms: Anorexia;Nausea Functional Status: Regressed Potential Signs of Inflammation: Chronic condition;Microbiologic cultures pmhx liver transplant MNT Billing: $ Initial Assessment: 1-15 minutes SIGNATURE: Kristopher Morton RD PATIENT NAME: Troy Carlson DATE: November 22, 2021 TIME: 1:32 PM [facility] PT EDon 11-22-2021 PT ED HNO ID: [id number] Author: Fabi Ruiz RN Service: PICC Team Author Type: Registered Nurse Type: Patient Education Filed: 11/22/2021 12:41 PM Note Text: PATIENT EDUCATION VASCULAR ACCESS TEAM TOPIC: Peripherally Inserted Central Catheter READINESS TO LEARN COGNITIVE ABILITY: Alert and oriented MOTIVATION TO LEARN: Interested FAMILY SUPPORT: Unable to assess - Family not present INSTRUCTION PROVIDED TO: Patient PATIENT LEARNS BEST BY: Individual Instruction Verbal Instruction FACTORS AFFECTING LEARNING:None PHYSICAL LIMITATIONS AFFECTING LEARNING: Pain and Fatigue LEARNING RESPONSE METHOD OF INSTRUCTION: Individual instruction Verbal instruction PATIENT / FAMILY RESPONSE: Verbalizes understanding of pre-procedure instructions Verbalizes understanding of post-procedure instructions FOLLOW-UP PLAN: Complete - No need for follow-up Contact information given.Call Vascular associate software application engineer with any concerns @ . SUPPLEMENTAL MATERIAL: PICC Line brochure [facility] ANES POSTPROC EVALon 022 ANES POSTPROC EVAL HNO ID: [id number] Author: Abdias Mayen MD Service: Anesthesiology Author Type: Physician Type: Anesthesia Postprocedure Evaluation Filed: 11/21/2021 7:42 PM Note Text: POST ANESTHESIA EVALUATION NOTE : 1965 Procedure Summary Date: 11/21/21 [facility] / [facility] Anesthesia Start: 1605 Anesthesia Stop: 1724 Procedures: CYSTOSCOPY (N/A Bladder) TURP COMPLETE (N/A Prostate) Diagnosis: BPH with obstruction/lower urinary tract symptoms Retention of urine, unspecified Surgeons: Foster Ogden MD Responsible Provider: Abdias Mayen MD Anesthesia Type: general ASA Status: 4 Anesthesia Type: general Airway Type: LMA Last Vitals Vitals Value Taken Time BP 150/87 11/21/21 1915 Temp 36.8 ?C (98.2 ?F) 11/21/21 1900 HR SpO2 64 11/21/211940 Resp 18 11/21/211940 SpO2 93 % 11/21/211940 Vitals shown include unvalidated device data. Post Anesthesia Patient Status Patient Evaluation: PACU. PACU/ICU Patient Condition: stable. Anticipated Disposition: inpatient floor planned admission. Neurological Status: aware and responsive. Pulmonary Status: breathing comfortably on room air Airway Control: returned to baseline unsupported. Cardiovascular Status: stable. Pain Management: clinically adequate Postoperative Hydration: acceptable. Intraoperative Events: no significant anesthesia events Post Operative Nausea/Vomiting Status: no significant post operative nausea or vomiting Anesthetic Observations: Recommendation: continue current plan of care and further care per PACU/ICU/floor team. Anesthesia Observations No Documentation SIGNATURE: Abdias Mayen MD PATIENT NAME: Troy Carlson DATE: November 21, 2021 TIME: 7:41 PM CSN: [id number] [facility] ANES PRE-OPon 11-21-2021 ANES PRE-OP HNO ID: [id number] Author: Tino Fajardo DO Service: Anesthesiology Author Type: Physician Type: Anesthesia Preprocedure Evaluation Filed: 11/21/2021 4:44 PM Note Text: ANESTHESIOLOGY DAY OF SURGERY NOTE : 1965 Procedure Information Anesthesia Start Date/Time: 11/21/21 1605 Procedures: CYSTOSCOPY (N/A Bladder) TURP COMPLETE (N/A Prostate) Location: [facility] Surgeons: Foster Ogden MD Estimated body mass index is 23.81 kg/m? as calculated from the following: Height as of 11/07/21: 170.2 cm (5' 7). Weight as of 11/07/21: 68.9 kg (152 lb). Most recent hematocrit and potassium results: Hematocrit 49.8 11/07/2021 Potassium 4.5 11/07/2021 Relevant Problems CARDIO (+) Essential hypertension (+) Paroxysmal atrial fibrillation (HCC) ENDO (+) Hypothyroidism GI (+) GERD (gastroesophageal reflux disease) -RENAL (+) JAROD (acute kidney injury) (HCC) (+) Chronic hepatitis C without hepatic coma (HCC) (+) HCV (hepatitis C virus) NEURO-PSYCH (+) Neuromyopathy (HCC) Other (+) Splenomegaly I - PHYSICAL EVALUATION AIRWAY Patient intubated: No. Tracheostomy tube not present Mallampati: II. TM distance: >3 FB. Neck ROM: full ROM without neurological symptoms. Mouth opening: adequate. Short neck: no. Thick neck: no DENTAL Dental findings: missing tooth/teeth. Additional exam findings: no II - ANESTHESIA PLAN ASA Score: 4 Anesthetic Plan: general Airway type: LMA The patient is not a current smoker. NPO Status: adequate Monitoring plan: standard ASA. Postoperative analgesic plan: multimodal analgesia and parenteral or oral opioids. Patient / Surrogate agrees to blood products: blood products not planned Significant changes in the patient condition since the History and Physical, not otherwise documented in primary service progress note: no. Potential Anesthesia issues that may suggest increased risk of complications or contraindication to planned procedure: none. Vitals Value Taken Time BP 137/82 11/21/21 1510 Pulse 65 11/21/21 1510 Resp 18 11/21/21 1510 Temp 36.7 ?C (98.1 ?F) 11/21/21 1510 SpO2 96 % 11/21/21 1510 Facility-Administered Medications as of 11/21/2021 Medication Dose Route Frequency - lactated ringers iv infusion 5-30 mL/hr INTRAVENOUS CONTINUOUS - [COMPLETED] ciprofloxacin iv piggyback 400 mg in D5W 200 mL (CIPRO) 400 mg INTRAVENOUS ONCE - NaCl 0.9% irrigation solution X (OR/PROCEDURE) PRN Outpatient Medications as of 11/21/2021 Medication Sig - tacrolimus IR (PROGRAF) 0.5 mg capsule Take 1 capsule (0.5 mg) by mouth twice daily. Take with 1mg capsule for total 1.5mg twice daily - tacrolimus IR (PROGRAF) 1 mg capsule Take 1 capsule (1mg) by mouth twice daily. Take in addition to one 0.5mg capsule for total dose of 1.5mg twice daily - cholecalciferol (VITAMIN D-3) 5,000 unit tab Take 1 tablet by mouth once daily. - pantoprazole DR (PROTONIX) 40 mg tablet Take 1 tablet by mouth daily before breakfast. Take on empty stomach, 1/2 hr before meal. - simvastatin (ZOCOR) 40 mg tablet Take 1 tablet by mouth daily at bedtime. - sertraline (ZOLOFT) 100 mg tablet Take 2 tablets at bedtime. - buPROPion XL (WELLBUTRIN XL) 300 mg 24 hr tablet Take 1 tablet by mouth once daily. - alendronate (FOSAMAX) 70 mg tablet Take 1 tablet by mouth one time a week. Take with a full glass of water, on an empty stomach; do NOT lie down for 30minutes. - lisinopril (ZESTRIL, PRINIVIL) 5 mg tablet Take 1 tablet by mouth once daily. - Garlic 1,000 mg cap Take 1 capsule by mouth once daily. - ursodiol (ACTIGALL) 300 mg capsule Take 1 capsule by mouth three times daily. (Patient taking differently: Take 300 mg by mouth three times daily. Not sure if still taking ) - mupirocin (BACTROBAN) 2 % ointment Apply 1 application to affected area three times daily. Location: abdomen (Patient taking differently: Apply 1 application to affected area as needed. Location: abdomen ) - Transparent Dressings (TEGADERM FRAME STYLE) 6 X 8 bndg Apply 1 application to affected area as needed. I have interviewed and examined the patient. I have reviewed the medical record and/or the pre-anesthesia evaluation, pertinent labs, and test results. This contains updated information obtained within 48 hours of Surgery/Procedure. SIGNATURE: Tino Fajardo DO PATIENT NAME: Troy Carlson DATE: November 21, 2021 TIME: 4:41 PM CSN: [id number] Normal [facility] Bacteria Ur Culton 2 Bacteria identified Cx Nom (U) ORGANISM ID: 1 10,000 -<50,000 CFU/ml Lindsey parapsilosis ORGANISM ID: 2 10,000 -<50,000 CFU/ml Achromobacter dentrificans/xylosoxidans Identification Performed by [facility]. Normal [facility] Comment on above: Performed By: #### 5 0545-3, 46883-3, VZMIC ####[facility] LABCLIA [id number] [place] [address] [place]#### 630-4 ####[facility]ATORY[facility] [id number] [place] [address] [place] Bacterial susceptibility cantu el GEORGINA (Isol)on 11-21-2021 CULTURE, ORGANISM GEORGINA RESULT [id number] Abnormal [facility] Comment on above: Order Comment: Speci men Type: URINE SPECIMENOrdering Facility: [facility] Address: [address] [place] [address] Result Comment: Achr omobacter dentrificans/xylosoxidans Performed By: #### 5 0545-3, 30393-1, VZMIC ####[facility] LABCLIA [id number] [address]#### 630-4 ####[facility] LABORATORYCLIA [id number] [address] STATES [facility] MINIMUM INHIBITORY CONCENTRA TION (VIZION)on 11-21-2021 Cefepime [Susc] >16 Resistant Susceptible <=8 , Intermediate >8 , Resistant >16 [facility] Comment on above: Order Comment: Order ing Facility: [facility] Address: [address] [place] [address] Performed By: #### 5 0545-3, 53858-0, VZMIC ####[facility] LABCLIA [id number] [address] [place]#### 630-4 ####[facility] LABORATORYCLIA [id number] [address] [place] Ciprofloxacin [Susc] >2 Resistant Suscept ible <=1 , Intermediate >1 , Resistant >2 [facility] Comment on above: Order Comment: Order ing Facility: [facility] Address: [address] [place] [address] Performed By: #### 5 0545-3, 83474-2, VZMIC ####[facility] LABCLIA [id number] [address] [place]#### 630-4 ####[facility] LABORATORYCLIA [id number] [address] [place] Gentamicin [Susc] 4 Susceptible Susceptibl e <=4 , Intermediate >4 , Resistant >8 [facility] Comment on above: Order Comment: Order ing Facility: [facility] Address: [address] [place] [address] Performed By: #### 5 0545-3, 54186-7, VZMIC ####[facility] LABCLIA [id number] [address] [place]#### 630-4 ####[facility]ATORYCLIA [id number] [address] Meropenem [Susc] >8 Resistant Susceptible <=4 , Intermediate >4 , Resistant >8 [facility] Comment on above: Order Comment: Order ing Facility: [facility] Address: [address] [place] [address] Performed By: #### 5 0545-3, 01944-0, VZMIC ####[facility] LABCLIA [id number] [address] [place]#### 630-4 ####[facility]ATORYCLIA [id number] [address] [place] Piperacillin+Sulbact am GEORGINA [Susc] <=8 Susceptible Susceptible <=16 , Intermediate >16 , Resistant >64 [facility] Comment on above: Order Comment: Order ing Facility: [facility] Address: [address] [place], [place] [address] Performed By: #### 5 0545-3, 58569-1, VZMIC ####[facility] LABCLIA [id number] [address] OF [place]#### 630-4 ####[facility]ATORYCLIA [id number] [address] [place] Tobramycin [Susc] 4 Susceptible Susceptibl e <=4 , Intermediate >4 , Resistant >8 [facility] Comment on above: Order Comment: Order ing Facility: [facility] Address: [address] [address] Performed By: #### 5 0545-3, 53102-2, VZMIC ####[facility] LABCLIA [id number] [address]#### 630-4 ####[facility] LABORATORYCLIA [id number] [address] Trimethoprim+Sulfame thoxazole [Susc] >4 Resistant Susceptible <=2 , Resistant >2 [facility] Comment on above: Order Comment: Order ing Facility: [facility] Address: [address] [place] [address] Performed By: #### 5 0545-3, 95906-4, VZMIC ####[facility] LABCLIA [id number] [address]#### 630-4 ####[facility] LABORATORYCLIA [id number] [address] Microorganism Spec Culton Microorganism identified Cx Nom (Unsp spec) ORGANISM ID: 1 Achromobacter dentrificans/xylosoxidans Normal [facility] Comment on above: Performed By: #### 5 0545-3, 76688-1, VZMIC ####[facility] LABCLIA [id number] [address]#### 630-4 ####[facility] LABORATORYCLIA [id number] [address] OPERATIVE NOon 11-21-2021 OPERATIVE NO HNO ID: [id number] Author: Foster Ogden MD Service: Urology Author Type: Physician Type: Operative Report Filed: 11/22/2021 6:10 AM Note Text: UROLOGY OPERATIVE/PROCEDURE REPORT LOG ID: [id number] Surgery/Procedure Date: 11/21/2021 Incision/Procedure Start Time: 4:15 PM Incision Close/Procedure End Time: 5:08 PM Surgeon(s)/Proceduralist(s ) and Pickle Sorter(s): Surgeon(s) and Role: * Foster Ogden MD - Primary * Efrem Parsons MD - Resident - Assisting No Additional Staff Procedure(s): Cystoscopy, Transurethral resection of prostate- bipolar Anesthesia: General Pre-Op/Pre-Procedure Diagnosis: BPH with frequency and obstruction Post-Op/Post-Procedure Diagnosis: Same Estimated Blood Loss: <20cc Specimens: none Implantable Devices: None Drains: 24F birch Complications: None Procedure Details: Indications This is a 56 year old pt who presents with BPH with obstruction. After a thorough discussion of his risks, benefits and treatment options he does wish to proceed forward with surgical intervention. Operation Patient was brought to the operating room. A thorough time out was performed and all present were in agreement. Patient was placed on OR table and anesthesia induced. Airways and lines were maintained by anesthesia team. Patient was placed into dorsal lithotomy position. Pressure points were padded. Birch was removed. Prepped and draped in usual sterile fashion. A 22.5 F cystourethroscope was inserted through the male urethra. The entire bladder was inspected using a 30 degree angled lens. The prostatic urethra had bilobar obstruction. Bilateral ureteral orifices were in normal anatomic position, well away from the bladder neck. Next the cystourethroscope was exchanged for a 26 F continuous flow resectoscope sheath. This was placed using the visual obturator. Using the bipolar button, the prostate was resected carefully. This was begun starting at the bladder neck working distally to the verumontanum. Starting at the 6 o'clock position this was done to create a trough. Care was taken to avoid resection distally to the verumontanum to avoid injury to the external urethral sphincter. Next the bilateral lateral lobes were resected down to the prostatic capsule. Hemostasis was maintained during the procedure using the cautery function. Lastly the anterior tissue was resected down to the level of the prostatic capsule. After achieving hemostasis the bladder was irrigated and all debris was evacuated from the bladder. On re-inspection, any bleeding was point cauterized until hemostasis was excellent. The resectoscope was withdrawn and a 24 F 3-way birch catheter with 30 ml balloon was inserted. The bladder was irrigated and the urine found to be light pink/ clear. The patient tolerated the procedure well and was transported to the recovery room. The primary surgeon/proceduralist performed the procedure with assistance. SIGNATURE: Efrem Parsons MD PATIENT NAME: Troy Carlson DATE: November 21, 2021 TIME: 5:27 PM PAGER/CONTACT #: John [facility] Dona 11-19-2021 CNPN Telephone (AKPRAD) -- TROY CARLSON ([id number]) 1965 M Date Time Provider Department 11/19/21 FOSTER OGDEN During your visit today, we recorded the following information about you: Foster Ogden MD 11/19/2021 5:11 PM Signed Can you call lab; They were supposed to run sensitivities on recent culture ; Nadiya Clement CMA 11/20/2021 7:25 AM Signed Lab states they could not run sensitivities so they had to send it out to [facility] . They are not sure when the results will be ready Nadiya Ogden MD 11/20/2021 8:21 AM Signed Try again today , He is having surgery tomorrow Nadiya Clement CMA 11/20/2021 11:34 AM Signed Lab notified and not sure when it will be ready Nadiya Clement CMA Allergies As of Date: 11/19/2021 Noted Allergy Reaction ACETAMINOPHEN 04/27/2017 4 - Hives HYDROCODONE 04/27/2017 4 - Hives MORPHINE 08/05/2019 4 - Hives 14 - Other: See Comments LATEX 04/22/2013 2 - Rash VANCOMYCIN (BULK) 03/26/2016 2 - Rash 9 - Itching VICODIN (HYDROCODONE-ACETAMINOPHE* 08/20/2009 9 - Itching Date Reviewed: 11/07/2021 Reviewed by: Keren Marley APRN.PAPER BAG MAKER - Fully Assessed Reason for Visit: Results [95] Prescriptions as of 11/20/2021 - amoxicillin (POLYMOX, AMOXIL) 500 mg capsule Take 1 capsule by mouth three times daily for 7 days. - tacrolimus IR (PROGRAF) 0.5 mg capsule Take 1 capsule (0.5 mg) by mouth twice daily. Take with 1mg capsule for total 1.5mg twice daily - tacrolimus IR (PROGRAF) 1 mg capsule Take 1 capsule (1mg) by mouth twice daily. Take in addition to one 0.5mg capsule for total dose of 1.5mg twice daily - pantoprazole DR (PROTONIX) 40 mg tablet Take 1 tablet by mouth daily before breakfast. Take on empty stomach, 1/2 hr before meal. - simvastatin (ZOCOR) 40 mg tablet Take 1 tablet by mouth daily at bedtime. - sertraline (ZOLOFT) 100 mg tablet Take 2 tablets at bedtime. - buPROPion XL (WELLBUTRIN XL) 300 mg 24 hr tablet Take 1 tablet by mouth once daily. - metoprolol succinate ER (TOPROL XL) 25 mg 24 hr tablet Take 1 tablet by mouth once daily. - alendronate (FOSAMAX) 70 mg tablet Take 1 tablet by mouth one time a week. Take with a full glass of water, on an empty stomach; do NOT lie down for 30minutes. - lisinopril (ZESTRIL, PRINIVIL) 5 mg tablet Take 1 tablet by mouth once daily. - cholecalciferol (VITAMIN D-3) 5,000 unit tab Take 1 tablet by mouth once daily. - Garlic 1,000 mg cap Take 1 capsule by mouth once daily. - ursodiol (ACTIGALL) 300 mg capsule Take 1 capsule by mouth three times daily. - mupirocin (BACTROBAN) 2 % ointment Apply 1 application to affected area three times daily. Location: abdomen - Transparent Dressings (TEGADERM FRAME STYLE) 6 X 8 bndg Apply 1 application to affected area as needed. Facility-Administered Medications as of 11/20/2021 - perflutren lipid microspheres 1.3 mL in NaCl (PF) 0.9% 10 mL injection (DEFINITY) - sodium chloride 0.9 % (flush) 10 mL (BD POSIFLUSH) Meds Comments as of 07/15/2018: Pt reports ALL Medications are accurate 10/24/2016 70 07/15/18 The medications are managed by this patient by: CAREGIVER Elissa Smith, PharmD Problem List As Of Date 11/19/2021 Noted Resolved Thrombocytopenia [D69.6] 08/20/2009 04/22/2017 Hepatitis C [B19.20] 08/20/2009 11/03/2014 Splenomegaly [R16.1] 08/20/2009 Bilateral inguinal hernia (BIH) [K40.20] 12/26/2011 Epididymitis [N45.1] 11/24/2013 04/22/2017 Testalgia [N50.819] 11/24/2013 04/22/2017 Cirrhosis [K74.60] 04/22/2017 Syncope [R55] 01/03/2014 04/22/2017 Pancytopenia (HCC) [D61.818] 03/11/2014 03/12/2014 Hypoxemia [R09.02] 03/11/2014 10/15/2015 COPD (chronic obstructive pulmonary disease) (H*03/11/2014 03/12/2014 Coagulopathy (HCC) [D68.9] 03/11/2014 04/22/2017 HCV (hepatitis C virus) [B19.20] 03/11/2014 Hepatopulmonary syndrome (HCC) [K76.81] 03/12/2014 08/19/2018 Bicytopenia [D75.89] 03/12/2014 04/22/2017 Adjustment disorder with mixed anxiety and depr*05/23/2014 PFO (patent foramen ovale) [Q21.1] 07/11/2014 Caries [K02.9] 08/15/2014 Retained dental root [K08.3] 08/15/2014 SUMMARY 08/31/2014 07/24/2016 Fever and chills [R50.9] 08/31/2014 04/22/2017 Fever, low grade [R50.9] 11/03/2014 04/22/2017 UTI (lower urinary tract infection) [N39.0] 04/08/2015 04/22/2017 Hepatic encephalopathy (HCC) [K72.90] 04/08/2015 04/22/2017 Sarcoidosis (HCC) [D86.9] 04/17/2015 Chronic hepatitis C without hepatic coma (HCC) *05/17/2015 Infection of other external stoma of urinary tr*05/17/2015 04/22/2017 SUMMARY 06/14/2015 09/12/2015 SOB (shortness of breath) [R06.02] 06/14/2015 04/22/2017 Hepatic cirrhosis (HCC) [K74.60] 06/14/2015 04/22/2017 Chronic abdominal pain [R10.9, G89.29] 07/20/2015 Hyperammonemia (HCC) [E72.20] 07/20/2015 04/22/2017 Pain disorder with psychological factors [F45.4*1 (more content not included)... Normal [facility] CNPNon 11-13-2021 CNPN Telephone (AKURFL) -- TROY CARLSON ([id number]) 1965 M Date Time Provider Department 11/13/21 FOSTER OGDEN During your visit today, we recorded the following information about you: Donna MARIN 11/13/2021 12:17 PM Signed ----- Message from Foster Ogden MD sent at 11/13/2021 11:26 AM EST ----- Please call patient. Check to see if he is on any antibiotics. I would like him to pickle sorter [facility] and get 3 doses in today and 1 tomorrow morning before he leaves for surgery. Donna MARIN 11/13/2021 12:18 PM Signed Left voice message for pt. Donna Fierro [facility] 11/13/2021 1:35 PM Signed Tried calling pt again, left another message. Donna MARIN 11/13/2021 3:53 PM Signed Pt notified of below. Pt states he did not get his pre-op Covid test done. Per Dr Ogden- pt needs to get Covid test 3 days prior to surgery. Also needs to be on antibiotics, so reschedule surgery to 11/19/21. Pt notified. Will get Covid test on 11/16/21. Donna Fierro COORD Allergies As of Date: 11/13/2021 Noted Allergy Reaction ACETAMINOPHEN 04/27/2017 4 - Hives HYDROCODONE 04/27/2017 4 - Hives MORPHINE 08/05/2019 4 - Hives 14 - Other: See Comments LATEX 04/22/2013 2 - Rash VANCOMYCIN (BULK) 03/26/2016 2 - Rash 9 - Itching VICODIN (HYDROCODONE-ACETAMINOPHE* 08/20/2009 9 - Itching Date Reviewed: 11/07/2021 Reviewed by: Keren Marley APRN.PAPER BAG MAKER - Fully Assessed Reason for Visit: Results [95] Prescriptions as of 11/13/2021 - amoxicillin (POLYMOX, AMOXIL) 500 mg capsule Take 1 capsule by mouth three times daily for 7 days. - tacrolimus IR (PROGRAF) 0.5 mg capsule Take 1 capsule (0.5 mg) by mouth twice daily. Take with 1mg capsule for total 1.5mg twice daily - tacrolimus IR (PROGRAF) 1 mg capsule Take 1 capsule (1mg) by mouth twice daily. Take in addition to one 0.5mg capsule for total dose of 1.5mg twice daily - pantoprazole DR (PROTONIX) 40 mg tablet Take 1 tablet by mouth daily before breakfast. Take on empty stomach, 1/2 hr before meal. - simvastatin (ZOCOR) 40 mg tablet Take 1 tablet by mouth daily at bedtime. - sertraline (ZOLOFT) 100 mg tablet Take 2 tablets at bedtime. - buPROPion XL (WELLBUTRIN XL) 300 mg 24 hr tablet Take 1 tablet by mouth once daily. - metoprolol succinate ER (TOPROL XL) 25 mg 24 hr tablet Take 1 tablet by mouth once daily. - alendronate (FOSAMAX) 70 mg tablet Take 1 tablet by mouth one time a week. Take with a full glass of water, on an empty stomach; do NOT lie down for 30minutes. - lisinopril (ZESTRIL, PRINIVIL) 5 mg tablet Take 1 tablet by mouth once daily. - cholecalciferol (VITAMIN D-3) 5,000 unit tab Take 1 tablet by mouth once daily. - Garlic 1,000 mg cap Take 1 capsule by mouth once daily. - ursodiol (ACTIGALL) 300 mg capsule Take 1 capsule by mouth three times daily. - mupirocin (BACTROBAN) 2 % ointment Apply 1 application to affected area three times daily. Location: abdomen - Transparent Dressings (TEGADERM FRAME STYLE) 6 X 8 bndg Apply 1 application to affected area as needed. Facility-Administered Medications as of 11/13/2021 - perflutren lipid microspheres 1.3 mL in NaCl (PF) 0.9% 10 mL injection (DEFINITY) - sodium chloride 0.9 % (flush) 10 mL (BD POSIFLUSH) Meds Comments as of 07/15/2018: Pt reports ALL Medications are accurate 10/24/2016 70 07/15/18 The medications are managed by this patient by: CAREGIVER Elissa Smith, PharmD Problem List As Of Date 11/13/2021 Noted Resolved Thrombocytopenia [D69.6] 08/20/2009 04/22/2017 Hepatitis C [B19.20] 08/20/2009 11/03/2014 Splenomegaly [R16.1] 08/20/2009 Bilateral inguinal hernia (BIH) [K40.20] 12/26/2011 Epididymitis [N45.1] 11/24/2013 04/22/2017 Testalgia [N50.819] 11/24/2013 04/22/2017 Cirrhosis [K74.60] 04/22/2017 Syncope [R55] 01/03/2014 04/22/2017 Pancytopenia (HCC) [D61.818] 03/11/2014 03/12/2014 Hypoxemia [R09.02] 03/11/2014 10/15/2015 COPD (chronic obstructive pulmonary disease) (H*03/11/2014 03/12/2014 Coagulopathy (HCC) [D68.9] 03/11/2014 04/22/2017 HCV (hepatitis C virus) [B19.20] 03/11/2014 Hepatopulmonary syndrome (HCC) [K76.81] 03/12/2014 08/19/2018 Bicytopenia [D75.89] 03/12/2014 04/22/2017 Adjustment disorder with mixed anxiety and depr*05/23/2014 PFO (patent foramen ovale) [Q21.1] 07/11/2014 Caries [K02.9] 08/15/2014 Retained dental root [K08.3] 08/15/2014 SUMMARY 08/31/2014 07/24/2016 Fever and chills [R50.9] 08/31/2014 04/22/2017 Fever, low grade [R50.9] 11/03/2014 04/22/2017 UTI (lower urinary tract infection) [N39.0] 04/08/2015 04/22/2017 Hepatic encephalopathy (HCC) [K72.90] 04/08/2015 04/22/2017 Sarcoidosis (HCC) [D86.9] 04/17/2015 Chronic hepatitis C without hepatic coma (HCC) *05/17/2015 Infection of other external s (more content not included)... Normal [facility] CNPNon 11-12-2021 CNPN Telephone (UROLAE) -- TROY CARLSON ([id number]) 1965 M Date Time Provider Department 11/12/21 FOSTER OGDEN During your visit today, we recorded the following information about you: Dayday Wade Ma 11/12/2021 8:53 AM Signed ----- Message from Foster Ogden MD sent at 11/11/2021 6:44 AM EST ----- Have lab result all species Dayday Wade Ma 11/12/2021 8:53 AM Signed Sherry at lab is placing order. Dayday Wade Ma Allergies As of Date: 11/12/2021 Noted Allergy Reaction ACETAMINOPHEN 04/27/2017 4 - Hives HYDROCODONE 04/27/2017 4 - Hives MORPHINE 08/05/2019 4 - Hives 14 - Other: See Comments LATEX 04/22/2013 2 - Rash VANCOMYCIN (BULK) 03/26/2016 2 - Rash 9 - Itching VICODIN (HYDROCODONE-ACETAMINOPHE* 08/20/2009 9 - Itching Date Reviewed: 11/07/2021 Reviewed by: Keren Boozer, CRYPTANALYST.PAPER BAG MAKER - Fully Assessed Reason for Visit: Results [95] Prescriptions as of 11/12/2021 - tacrolimus IR (PROGRAF) 0.5 mg capsule Take 1 capsule (0.5 mg) by mouth twice daily. Take with 1mg capsule for total 1.5mg twice daily - tacrolimus IR (PROGRAF) 1 mg capsule Take 1 capsule (1mg) by mouth twice daily. Take in addition to one 0.5mg capsule for total dose of 1.5mg twice daily - pantoprazole DR (PROTONIX) 40 mg tablet Take 1 tablet by mouth daily before breakfast. Take on empty stomach, 1/2 hr before meal. - simvastatin (ZOCOR) 40 mg tablet Take 1 tablet by mouth daily at bedtime. - sertraline (ZOLOFT) 100 mg tablet Take 2 tablets at bedtime. - buPROPion XL (WELLBUTRIN XL) 300 mg 24 hr tablet Take 1 tablet by mouth once daily. - metoprolol succinate ER (TOPROL XL) 25 mg 24 hr tablet Take 1 tablet by mouth once daily. - alendronate (FOSAMAX) 70 mg tablet Take 1 tablet by mouth one time a week. Take with a full glass of water, on an empty stomach; do NOT lie down for 30minutes. - lisinopril (ZESTRIL, PRINIVIL) 5 mg tablet Take 1 tablet by mouth once daily. - cholecalciferol (VITAMIN D-3) 5,000 unit tab Take 1 tablet by mouth once daily. - Garlic 1,000 mg cap Take 1 capsule by mouth once daily. - ursodiol (ACTIGALL) 300 mg capsule Take 1 capsule by mouth three times daily. - mupirocin (BACTROBAN) 2 % ointment Apply 1 application to affected area three times daily. Location: abdomen - Transparent Dressings (TEGADERM FRAME STYLE) 6 X 8 bndg Apply 1 application to affected area as needed. Facility-Administered Medications as of 11/12/2021 - perflutren lipid microspheres 1.3 mL in NaCl (PF) 0.9% 10 mL injection (DEFINITY) - sodium chloride 0.9 % (flush) 10 mL (BD POSIFLUSH) Meds Comments as of 07/15/2018: Pt reports ALL Medications are accurate 10/24/2016 70 07/15/18 The medications are managed by this patient by: CAREGIVER Elissa Smith, PharmD Problem List As Of Date 11/12/2021 Noted Resolved Thrombocytopenia [D69.6] 08/20/2009 04/22/2017 Hepatitis C [B19.20] 08/20/2009 11/03/2014 Splenomegaly [R16.1] 08/20/2009 Bilateral inguinal hernia (BIH) [K40.20] 12/26/2011 Epididymitis [N45.1] 11/24/2013 04/22/2017 Testalgia [N50.819] 11/24/2013 04/22/2017 Cirrhosis [K74.60] 04/22/2017 Syncope [R55] 01/03/2014 04/22/2017 Pancytopenia (HCC) [D61.818] 03/11/2014 03/12/2014 Hypoxemia [R09.02] 03/11/2014 10/15/2015 COPD (chronic obstructive pulmonary disease) (H*03/11/2014 03/12/2014 Coagulopathy (HCC) [D68.9] 03/11/2014 04/22/2017 HCV (hepatitis C virus) [B19.20] 03/11/2014 Hepatopulmonary syndrome (HCC) [K76.81] 03/12/2014 08/19/2018 Bicytopenia [D75.89] 03/12/2014 04/22/2017 Adjustment disorder with mixed anxiety and depr*05/23/2014 PFO (patent foramen ovale) [Q21.1] 07/11/2014 Caries [K02.9] 08/15/2014 Retained dental root [K08.3] 08/15/2014 SUMMARY 08/31/2014 07/24/2016 Fever and chills [R50.9] 08/31/2014 04/22/2017 Fever, low grade [R50.9] 11/03/2014 04/22/2017 UTI (lower urinary tract infection) [N39.0] 04/08/2015 04/22/2017 Hepatic encephalopathy (HCC) [K72.90] 04/08/2015 04/22/2017 Sarcoidosis (HCC) [D86.9] 04/17/2015 Chronic hepatitis C without hepatic coma (HCC) *05/17/2015 Infection of other external stoma of urinary tr*05/17/2015 04/22/2017 SUMMARY 06/14/2015 09/12/2015 SOB (shortness of breath) [R06.02] 06/14/2015 04/22/2017 Hepatic cirrhosis (HCC) [K74.60] 06/14/2015 04/22/2017 Chronic abdominal pain [R10.9, G89.29] 07/20/2015 Hyperammonemia (HCC) [E72.20] 07/20/2015 04/22/2017 Pain disorder with psychological factors [F45.4*08/06/2015 Liver transplant candidate [Z76.82] 08/17/2015 04/22/2017 Abdominal distension [R14.0] 09/12/2015 04/22/2017 Hypothyroidism [E03.9] 09/12/2015 New onset seizure (HCC) [R56.9] 10/05/2015 11/22/2019 ARDS (adult respiratory distress syndrome) (HCC*10/05/2015 04/22/2017 Postoperative anemia due to acute blood loss [D*10/05/2015 04/22/2017 Agitation requiring sedation protocol [R45.1] 10/05/19 (more content not included)... Normal [facility] Bacteria Ur Culton 2 Bacteria identified Cx Nom (U) ORGANISM ID: 3 >=100,000 CFU/ml Normal urogenital erum ORGANISM ID: 4 >=100,000 CFU/ml Pseudomonas species Not Pseudomonas aeruginosa. Identification and Susceptibilities performed by [facility]. See orders for [place] values ORGANISM ID: 5 >=100,000 CFU/ml Achromobacter dentrificans/xylosoxidans Identification and Susceptibilities performed by [facility]. See orders for [place]A values Normal [facility] Comment on above: Performed By: #### 6 30-4 #### [facility] CLIA [id number] [address] [place] [address] [place] #### RUTH, NEHAL, 36564-3 #### [facility] CLIA [id number] [address] [place] [address] [place] Basic metabolic 2000 panelon 11-07-2021 Anion gap [Moles/Vol] 10 mmol/L Normal 9-18 [facility] Comment on above: Order Comment: Speci men Type: BLOOD SPECIMEN Ordering Facility: [facility] Address: [address] [address] Performed By: #### 5 8410-2 #### [facility] CLIA [id number] [address] [place] Calcium [Mass/Vol] 9.8 mg/dL Normal 8.5-10.2 [facility] Comment on above: Order Comment: Speci men Type: BLOOD SPECIMEN Ordering Facility: [facility] Address: [address] [place] [address] Performed By: #### 5 8410-2 #### [facility] CLIA [id number] [address] [place] [address] [place] Chloride [Moles/Vol] 102 mmol/L Normal 97-105 [facility] Comment on above: Order Comment: Speci men Type: BLOOD SPECIMEN Ordering Facility: [facility] Address: [address] [place] [address] Performed By: #### 5 8410-2 #### [facility] CLIA [id number] [address] [place] CO2 [Moles/Vol] 29 mmol/L Normal 22-30 [facility] Comment on above: Order Comment: Speci men Type: BLOOD SPECIMEN Ordering Facility: [facility] Address: [address] [place] [address] Performed By: #### 5 8410-2 #### [facility] CLIA [id number] [address] [place] Creatinine [Mass/Vol] 1.20 mg/dL Normal 0.73-1.22 [facility] Comment on above: Order Comment: Speci men Type: BLOOD SPECIMEN Ordering Facility: [facility] Address: [address] [place] [address] Performed By: #### 5 8410-2 #### [facility] CLIA [id number] 1 [place] [address] [place] GFR/1.73 sq M.predicted MDRD (S/P/Bld) [Vol rate/Area] mL/min/{1.73_m2} Normal [facility] Comment on above: Order Comment: Jaycob ding Type: BLOOD SPECIMEN Ordering Facility: [facility] Address: [address] [place] [address] [place] [id number] Result Comment: >60 eGFR (Estimated GFR) Units of measure: mL/min/1.73 meters squared eGFR is derived from the reexpressed MDRD Study equation using the following parameters: serum creatinine, age, gender and race. The creatinine assay has been calibrated to be traceable to IDMS. An eGFR <60 mL/min/1.73m2 for >3 months is consistent with chronic kidney disease. Refer to KDOQI guidelines for clinical interpretation. In patients with unstable renal function, e.g. those with acute kidney injury, the eGFR may not accurately reflect actual GFR. Performed By: #### 5 8410-2 #### [facility] CLIA [id number] 1 [place] [address] [place] Glucose [Mass/Vol] 77 mg/dL Normal 74-99 [facility] Comment on above: Order Comment: Jaycob ding Type: BLOOD SPECIMEN Ordering Facility: [facility] Address: [address] [place], [place] [phone] Result Comment: The [place] Diabetes Association (ADA) provides guidance for cutoff values for fasting glucose and random glucose. The ADA defines fasting as no caloric intake for at least 8 hours. Fasting plasma glucose results between 100 to 125 mg/dL indicate increased risk for diabetes (prediabetes). Fasting plasma glucose results greater than or equal to 126 mg/dL meet the criteria for diagnosis of diabetes. In the absence of unequivocal hyperglycemia, results should be confirmed by repeat testing. In a patient with classic symptoms of hyperglycemia or hyperglycemic crisis, random plasma glucose results greater than or equal to 200 mg/dL meet the criteria for diagnosis of diabetes. Reference: Standards of Medical Care in Diabetes 2016, [place] [employer] Diabetes Association. Diabetes Care. 2016.39(Suppl 1). Performed By: #### 5 8410-2 #### [facility] CLIA [id number] 1 [place] [address] [place] Potassium [Moles/Vol] 4.5 mmol/L Normal 3.7-5.1 [facility] Comment on above: Order Comment: Speci men Type: BLOOD SPECIMEN Ordering Facility: [facility] Address: [address] [place] [address] Performed By: #### 5 8410-2 #### [facility] CLIA [id number] [address] STATES OF [facility] Sodium [Moles/Vol] 141 mmol/L Normal 136-144 [facility] Comment on above: Order Comment: Speci men Type: BLOOD SPECIMEN Ordering Facility: [facility] Address: [address] [place] [address] Performed By: #### 5 8410-2 #### [facility] CLIA [id number] [address] [place] Urea nitrogen [Mass/Vol] 16 mg/dL Normal 9-24 [facility] Comment on above: Order Comment: Speci men Type: BLOOD SPECIMEN Ordering Facility: [facility] Address: [address] [place] [address] Performed By: #### 5 8410-2 #### [facility] CLIA [id number] [address] OF [facility] CBC panel Auto (Bld)on 11-07 Erythrocyte distribution width (RBC) [Ratio] 14.1 % Normal 11.5-15.0 [facility] Comment on above: Order Comment: Speci men Type: BLOOD SPECIMEN Ordering Facility: [facility] Address: [address] [place] [address] Performed By: #### 5 8410-2 #### [facility] CLIA [id number] [address] Hematocrit (Bld) [Volume fraction] 49.8 % Normal 39.0-51.0 [facility] Comment on above: Order Comment: Speci men Type: BLOOD SPECIMEN Ordering Facility: [facility] Address: [address] [place] [address] Performed By: #### 5 8410-2 #### [facility] CLIA [id number] [address] Hemoglobin (Bld) [Mass/Vol] 16.8 g/dL Normal 13.0-17.0 [facility] Comment on above: Order Comment: Speci men Type: BLOOD SPECIMEN Ordering Facility: [facility] Address: [address] [place] [address] Performed By: #### 5 8410-2 #### [facility] CLIA [id number] [address] MCH (RBC) [Entitic mass] 32.1 pg Normal 26.0-34.0 [facility] Comment on above: Order Comment: Speci men Type: BLOOD SPECIMEN Ordering Facility: [facility] Address: [address] [place] [address] Performed By: #### 5 8410-2 #### [facility] CLIA [id number] [address] MCHC (RBC) [Mass/Vol] 33.7 g/dL Normal 30.5-36.0 [facility] Comment on above: Order Comment: Speci men Type: BLOOD SPECIMEN Ordering Facility: [facility] Address: [address] [place] [address] Performed By: #### 5 8410-2 #### [facility] CLIA [id number] [address] MCV (RBC) [Entitic vol] 95.0 fL Normal 80.0-100.0 [facility] Comment on above: Order Comment: Speci men Type: BLOOD SPECIMEN Ordering Facility: [facility] Address: [address] [place] [address] Performed By: #### 5 8410-2 #### [facility] CLIA [id number] [address] Nucleated RBC (Bld) [#/Vol] 10*3/uL Normal <0.01 [facility] Comment on above: Order Comment: Speci men Type: BLOOD SPECIMEN Ordering Facility: [facility] Address: [address] [place] [address] Performed By: #### 5 8410-2 #### [facility] CLIA [id number] [address] Platelet mean volume (Bld) [Entitic vol] 11.2 fL Normal 9.0-12.7 [facility] Comment on above: Order Comment: Speci men Type: BLOOD SPECIMEN Ordering Facility: [facility] Address: [address] [place] [address] Performed By: #### 5 8410-2 #### [facility] CLIA [id number] [address] [place] Platelets (Bld) [#/Vol] Normal [facility] Comment on above: Order Comment: Speci men Type: BLOOD SPECIMEN Ordering Facility: [facility] Address: [address] [place] [address] Result Comment: Plat elets Clumped Estimate Normal. Platelet count confirmed by manual review of peripheral blood smear Performed By: #### 5 8410-2 #### [facility] CLIA [id number] [address] [place] RBC (Bld) [#/Vol] 5.24 10*6/uL Normal 4.20-6.00 [facility] Comment on above: Order Comment: Speci men Type: BLOOD SPECIMEN Ordering Facility: [facility] Address: [address] [place] [address] Performed By: #### 5 8410-2 #### [facility] CLIA [id number] [address] [place] WBC (Bld) [#/Vol] 7.65 10*3/uL Normal 3.70-11.00 [facility] Comment on above: Order Comment: Speci men Type: BLOOD SPECIMEN Ordering Facility: [facility] Address: [address] [place] [address] Performed By: #### 5 8410-2 #### [facility] CLIA [id number] 1 [place] [address] [place] HISTORY PHYSICALon HISTORY PHYSICAL HNO ID: [id number] Author: Keren Marley APRN.SEBASTIÁN Service: ? Author Type: Nurse Practitioner Type: HANDP Filed: 11/07/2021 3:36 PM Note Text: HISTORY AND PHYSICAL EXAMINATION SERVICE DATE: 11/07/2021 SERVICE TIME: 1500 PRIMARY CARE PHYSICIAN: Giancarlo Kendall MD REASON FOR VISIT: Troy Carlson is a 56 year old male who is scheduled for Procedure(s): CYSTOSCOPY (N/A) TURP COMPLETE (N/A) at the request of Dr. Foster Ogden for routine HANDP. My final recommendation will be communicated back to the requesting physician by way of shared medical record or letter. Subjective The patient has the following: ACTIVE PROBLEM LIST Splenomegaly Bilateral Inguinal Hernia (Bih) Hcv (Hepatitis C Virus) Adjustment Disorder With Mixed Anxiety and Depressed Mood Pfo (Patent Foramen Ovale) Caries Retained Dental Root Sarcoidosis Chronic Hepatitis C Without Hepatic Coma (Hcc) Chronic Abdominal Pain Pain Disorder With Psychological Factors Hypothyroidism S/P Liver Transplant (Hcc) Paroxysmal Atrial Fibrillation (Hcc) Neuromyopathy (Hcc) Need for Prophylactic Immunotherapy Dysuria Non-Ischemic Cardiomyopathy (Hcc) Essential Hypertension S/P Repair of Ventral Hernia Abdominal Wall Cellulitis Bph With Obstruction/Lower Urinary Tract Symptoms Dilated Bile Duct Gerd (Gastroesophageal Reflux Disease) Jarod (Acute Kidney Injury) (Hcc) Obesity, Class II, Bmi 35-39.9 Lung Nodule Mixed Hyperlipidemia Marijuana Use, Continuous Other Osteoporosis Without Current Pathological Fracture Urinary Retention Ptsd (Post-Traumatic Stress Disorder) COVID-19 Immunization Status Overdue - COVID-19 VACCINE (1) Overdue - never done No completion, postpone, frequency change, or communication history exists for this topic. CHIEF COMPLAINT: BPH HPI: This is a 56 year old male that presents today for presurgical testing with c/o above. Patient has a h/o BPH and urinary obstruction. He has a chronic urinary catheter in with multiple failed voiding trials. Patient reports his catheter was changed about a week and a half ago. Denies any blood or cloudiness to the urine. Does report that the catheter hurts from the head back to where it goes into the bladder and makes it feel like I have to pee. Denies any recent fevers or chills, but does report sweating which he thinks is due from medications. Patient has met with surgeon and has agreed to surgical intervention. REVIEW OF SYSTEMS: General: +sweats Positive for: unintentional weight change. Patient's weight loss: 15 Negative for: malaise and fever. Neurological: Positive for: seizures (in 2016 after transplant surgery). Negative for: headaches, TIA and strokes. Respiratory: +Sarcoidosis, lung nodule Positive for: tobacco use (former smoker). Negative for: asthma, bronchodilator used daily for the last 3 months, dyspnea, home oxygen, pneumonia within 6 weeks, URI < 2 weeks and obstructive sleep apnea. Cardiovascular: Positive for: CAD, hyperlipidemia, hypertension and open heart surgery (PROF repair 2015 ) Negative for: anticoagulation therapy, arrhythmia, atrial fibrillation, chest pain, CHF, congenital heart defect and DVT/PE. GI: Positive for: GERD and liver disease (liver transplant 2016 ) Negative for: nausea and vomiting. : See HPI Positive for: BPH. Negative for: hematuria. Endocrine: Positive for: hypothyroidism (not on medications). Negative for: diabetes mellitus. Hematology: Positive for: thrombocytopenia. Negative for: anemia, bruises/bleeds easily, factor V Leiden and hemophilia. Oncology: No history of CA metastasis, chemo within 30 days, or radiotherapy within 90 days. No history of oncological symptoms or problems. Psych: Positive for: drug dependency (h/o ETOH abuse, sober since 2013, h/o IV drug and cocaine use, currently using marijuana). Musculoskeletal: Negative for joint pain or swelling, back pain or muscle pain. Skin: Chronic skin issues comment: +h/o MRSA, Psoriasis Negative for: lesions. PAST MEDICAL HISTORY Diagnosis Date - BPH with obstruction/lower urinary tract symptoms - Cirrhosis (HCC) - ETOH abuse stopped etoh in 09/27 - H/O liver transplant (HCC) 10/03/2015 - Hepatitis C - Hepatopulmonary syndrome (HCC) used oxygen 3 to 6 liters and off O2 since liver transplant - Hypertension - Marijuana use, continuous 12/28/2020 - MRSA (methicillin resistant Staphylococcus aureus) 11/2011 - New onset seizure (HCC) 10/05/2015 06/11/[address] Anurag Doyle:noted one seizure after transplant. No seizures since, off keppra.Initial EEG showed small amplitudes polyspikes overriding periodic patterns), later EEG became normal, brain MRI unremarkable. He has been off Keppra since March 2016. No further seizure. - Non-ischemic cardiomyopathy (HCC) - Osteoporosis - Panic attacks - Prostatitis 11/2011 - Psoriasis - PTSD (post-traumat (more content not included)... Normal [facility] MINIMUM INHIBITORY CONCENTRA TION (VIZION)on 11-07-2021 Amikacin [Susc] 32 Intermediate Susceptible <=16 , Intermediate >16 , Resistant >32 [facility] Comment on above: Order Comment: Order ing Facility: External Submitter Address: , , Performed By: #### 6 30-4 ####[facility] [id number] [address]#### [place], [address] ####[facility] [id number] [address] [place] Cefepime [Susc] >16 Resistant Susceptible <=8 , Intermediate >8 , Resistant >16 [facility] Comment on above: Order Comment: Order ing Facility: External Submitter Address: , , Performed By: #### 6 30-4 ####[facility] [id number] [address] [place]#### [place], [address] ####[facility] [id number] [address] [place] Ciprofloxacin [Susc] >2 Resistant Suscept ible <=1 , Intermediate >1 , Resistant >2 [facility] Comment on above: Order Comment: Order ing Facility: External Submitter Address: , , Performed By: #### 6 30-4 ####[facility] [id number] [address] [place]#### [place], [address] ####[facility] [id number] [address] [place] Gentamicin [Susc] >8 Resistant Susceptibl e <=4 , Intermediate >4 , Resistant >8 [facility] Comment on above: Order Comment: Order ing Facility: External Submitter Address: , , Performed By: #### 6 30-4 ####[facility] [id number] [address]#### [place], [address] ####[facility] [id number] [address] Meropenem [Susc] 8 Intermediate Susceptible <=4 , Intermediate >4 , Resistant >8 [facility] Comment on above: Order Comment: Order ing Facility: External Submitter Address: , , Performed By: #### 6 30- ####[facility] [id number] [address]#### [place], [address] ####[facility] [id number] [address] Piperacillin+Sulbact am [place] [Susc] <=8 Susceptible Susceptible <=16 , Intermediate >16 , Resistant >64 [facility] Comment on above: Order Comment: Order ing Facility: External Submitter Address: , , Performed By: #### 6 30- ####[facility] [id number] [address]#### [place], [address] ####[facility] [id number] [address] Tobramycin [Susc] 8 Intermediate Susceptibl e <=4 , Intermediate >4 , Resistant >8 [facility] Comment on above: Order Comment: Order ing Facility: External Submitter Address: , , Performed By: #### 6 30- ####[facility] [id number] [address]#### [place], [address] ####[facility]IA [id number] [place] [address] [place] Trimethoprim+Sulfame thoxazole [Susc] >4 Resistant Susceptible <=2 , Resistant >2 [facility] Comment on above: Order Comment: Order ing Facility: External Submitter Address: , , Performed By: #### 6 30-4 ####[facility] [id number] [place] [address] [place]#### [place], [address]-2 ####[facility] [id number] [place] [address] [place] Microorganism Spec Culton Microorganism identified Cx Nom (Unsp spec) ORGANISM ID: 1 Pseudomonas species Not P. aeruginosa ORGANISM ID: 2 Achromobacter dentrificans/xylosoxidans Normal [facility] Comment on above: Performed By: #### 6 30-4 ####[facility] [id number] [address] [place]#### [place], [address] ####[facility]IA [id number] [address] [place] ORGANISM MICon 11-07-2021 CULTURE, ORGANISM [place] RESULT Abnormal [facility] Comment on above: Order Comment: Speci men Type: URINE SPECIMENOrdering Facility: External Submitter Address: , , Result Comment: 1230 [id number] Pseudomonas species Not P. Aeruginosa. [id number] Achromobacter dentrificans/xylosoxidans Performed By: #### 6 30-4 ####[facility] [id number] [place] [address] [place]#### [place], [address] ####[facility] [id number] [address] [place] Dona 10-29-2021 CNPN Telephone (AKURFL) -- TROY CARLSON ([id number]) 1965 M Date Time Provider Department 10/29/21 FOSTER OGDEN AKURFL During your visit today, we recorded the following information about you: Donna MARIN 10/31/2021 2:57 PM Addendum Pt is scheduled for Cysto, TURP with Dr Ogden at [facility] on 11/14/21 @ 9:30 (7:30 arrival) PAT on 11/05/21 @ 9:20 at [facility]. Pt also needs birch cath change and urine culture around 11/05/21. Pt notified- states he will have this done at [facility]. Covid test on 11/11/21 @ 12:15 at [facility]. Cardio clearance from Sujata Torres CNP received and faxed to chart command. Medical clearance from Dr Giancarlo Kendall received and faxed to chart command. Pt given all date, time, prep and arrival instructions over the phone on 10/31/21. [email or web address] message sent also. Donna MARIN 11/14/2021 9:17 AM Signed SURGERY RESCHEDULED Pt having Cysto, TURP with Dr Ogden at [facility] on 11/19/21 @ 12:00 (10:00 arrival) Covid test on 11/16/21 @ 10:30 at [place]. Pt started antibiotics on 11/13/21. Pt given new date, time, prep and arrival instructions over the phone on 11/13/21. panOpenhart message sent also. Donna MARIN 11/18/2021 2:16 PM Addendum SURGERY RESCHEDULED Pt did not go for preop Covid test on 11/16/21 so needed to reschedule surgery. Since pt will be admitted overnight for STO, Covid test is required. Same day Covid tests are no longer an option. New surgery date is 11/21/21 @ 2:45 (12:45 arrival). Covid test today at 4:00 at [facility]. [email or web address] message sent also. New details given to pt over the phone on 11/18/21. Donna Fierro COORD Allergies As of Date: 10/29/2021 Noted Allergy Reaction ACETAMINOPHEN 04/27/2017 4 - Hives HYDROCODONE 04/27/2017 4 - Hives MORPHINE 08/05/2019 4 - Hives 14 - Other: See Comments LATEX 04/22/2013 2 - Rash VANCOMYCIN (BULK) 03/26/2016 2 - Rash 9 - Itching VICODIN (HYDROCODONE-ACETAMINOPHE* 08/20/2009 9 - Itching Date Reviewed: 10/22/2021 Reviewed by: Zulma Way LPN - Fully Assessed Reason for Visit: Surgery Scheduled [Other] Prescriptions as of 11/18/2021 - amoxicillin (POLYMOX, AMOXIL) 500 mg capsule Take 1 capsule by mouth three times daily for 7 days. - tacrolimus IR (PROGRAF) 0.5 mg capsule Take 1 capsule (0.5 mg) by mouth twice daily. Take with 1mg capsule for total 1.5mg twice daily - tacrolimus IR (PROGRAF) 1 mg capsule Take 1 capsule (1mg) by mouth twice daily. Take in addition to one 0.5mg capsule for total dose of 1.5mg twice daily - pantoprazole DR (PROTONIX) 40 mg tablet Take 1 tablet by mouth daily before breakfast. Take on empty stomach, 1/2 hr before meal. - simvastatin (ZOCOR) 40 mg tablet Take 1 tablet by mouth daily at bedtime. - sertraline (ZOLOFT) 100 mg tablet Take 2 tablets at bedtime. - buPROPion XL (WELLBUTRIN XL) 300 mg 24 hr tablet Take 1 tablet by mouth once daily. - metoprolol succinate ER (TOPROL XL) 25 mg 24 hr tablet Take 1 tablet by mouth once daily. - alendronate (FOSAMAX) 70 mg tablet Take 1 tablet by mouth one time a week. Take with a full glass of water, on an empty stomach; do NOT lie down for 30minutes. - lisinopril (ZESTRIL, PRINIVIL) 5 mg tablet Take 1 tablet by mouth once daily. - cholecalciferol (VITAMIN D-3) 5,000 unit tab Take 1 tablet by mouth once daily. - Garlic 1,000 mg cap Take 1 capsule by mouth once daily. - ursodiol (ACTIGALL) 300 mg capsule Take 1 capsule by mouth three times daily. - mupirocin (BACTROBAN) 2 % ointment Apply 1 application to affected area three times daily. Location: abdomen - Transparent Dressings (TEGADERM FRAME STYLE) 6 X 8 bndg Apply 1 application to affected area as needed. Facility-Administered Medications as of 11/18/2021 - perflutren lipid microspheres 1.3 mL in NaCl (PF) 0.9% 10 mL injection (DEFINITY) - sodium chloride 0.9 % (flush) 10 mL (BD POSIFLUSH) Meds Comments as of 07/15/2018: Pt reports ALL Medications are accurate 10/24/2016 70 07/15/18 The medications are managed by this patient by: CAREGIVER Elissa Smith, GinaD Problem List As Of Date 10/29/2021 Noted Resolved Thrombocytopenia [D69.6] 08/20/2009 04/22/2017 Hepatitis C [B19.20] 08/20/2009 11/03/2014 Splenomegaly [R16.1] 08/20/2009 Bilateral inguinal hernia (BIH) [K40.20] 12/26/2011 Epididymitis [N45.1] 11/24/2013 04/22/2017 Testalgia [N50.819] 11/24/2013 04/22/2017 Cirrhosis [K74.60] 04/22/2017 Syncope [R55] 01/03/2014 04/22/2017 Pancytopenia (HCC) [D61.818] 03/11/2014 03/12/2014 Hypoxemia [R09.02] 03/11/2014 10/15/2015 COPD (chronic obstructive pulmonary disease) (H*03/11/2014 03/12/2014 Coagulopathy (HCC) [D68.9] 03/11/2014 04/22/2017 HCV (hepatitis C virus) [B19.20] 03/11/2014 Hepatopulmonary syndrome (HCC) [K76.81] 03/12/2014 08/19/2018 Bicytopenia [D75.89] 03/12/2014 08 (more content not included)... Normal [facility] CNPNon 10-08-2021 CNPN Telephone (AKURFL) -- TROY CARLSON ([id number]) 1965 M Date Time Provider Department 10/08/21 FOSTER OGDEN AKURFKateryna During your visit today, we recorded the following information about you: Ashly De Leon RN 10/08/2021 3:10 PM Signed Patient calling to schedule surgery with Dr. Ogden. Patient states he has received clearance and is ready to proceed. Asking if someone can contact him soon. Thank you. Donna Fierro COORD 10/23/2021 3:02 PM Signed Spoke to pt and surgery planned for 11/14/21. Donna Fieror COORD Allergies As of Date: 10/08/2021 Noted Allergy Reaction ACETAMINOPHEN 04/27/2017 4 - Hives HYDROCODONE 04/27/2017 4 - Hives MORPHINE 08/05/2019 4 - Hives 14 - Other: See Comments LATEX 04/22/2013 2 - Rash VANCOMYCIN (BULK) 03/26/2016 2 - Rash 9 - Itching VICODIN (HYDROCODONE-ACETAMINOPHE* 08/20/2009 9 - Itching Date Reviewed: 10/02/2021 Reviewed by: Eulalia Aceves Ma - Fully Assessed Reason for Visit: Patient Question [2867] Prescriptions as of 10/23/2021 - tacrolimus IR (PROGRAF) 0.5 mg capsule Take 1 capsule (0.5 mg) by mouth twice daily. Take with 1mg capsule for total 1.5mg twice daily - tacrolimus IR (PROGRAF) 1 mg capsule Take 1 capsule (1mg) by mouth twice daily. Take in addition to one 0.5mg capsule for total dose of 1.5mg twice daily - pantoprazole DR (PROTONIX) 40 mg tablet Take 1 tablet by mouth daily before breakfast. Take on empty stomach, 1/2 hr before meal. - simvastatin (ZOCOR) 40 mg tablet Take 1 tablet by mouth daily at bedtime. - sertraline (ZOLOFT) 100 mg tablet Take 2 tablets at bedtime. - buPROPion XL (WELLBUTRIN XL) 300 mg 24 hr tablet Take 1 tablet by mouth once daily. - metoprolol succinate ER (TOPROL XL) 25 mg 24 hr tablet Take 1 tablet by mouth once daily. - tamsulosin (FLOMAX) 0.4 mg Take 1 capsule by mouth twice daily. - alendronate (FOSAMAX) 70 mg tablet Take 1 tablet by mouth one time a week. Take with a full glass of water, on an empty stomach; do NOT lie down for 30minutes. - lisinopril (ZESTRIL, PRINIVIL) 5 mg tablet Take 1 tablet by mouth once daily. - cholecalciferol (VITAMIN D-3) 5,000 unit tab Take 1 tablet by mouth once daily. - Garlic 1,000 mg cap Take 1 capsule by mouth once daily. - ursodiol (ACTIGALL) 300 mg capsule Take 1 capsule by mouth three times daily. - mupirocin (BACTROBAN) 2 % ointment Apply 1 application to affected area three times daily. Location: abdomen - Transparent Dressings (TEGADERM FRAME STYLE) 6 X 8 bndg Apply 1 application to affected area as needed. Facility-Administered Medications as of 10/23/2021 - perflutren lipid microspheres 1.3 mL in NaCl (PF) 0.9% 10 mL injection (DEFINITY) - sodium chloride 0.9 % (flush) 10 mL (BD POSIFLUSH) Meds Comments as of 07/15/2018: Pt reports ALL Medications are accurate 10/24/2016 70 07/15/18 The medications are managed by this patient by: CAREGIVER Elissa Smith, GinaD Problem List As Of Date 10/08/2021 Noted Resolved Thrombocytopenia [D69.6] 08/20/2009 04/22/2017 Hepatitis C [B19.20] 08/20/2009 11/03/2014 Splenomegaly [R16.1] 08/20/2009 Bilateral inguinal hernia (BIH) [K40.20] 12/26/2011 Epididymitis [N45.1] 11/24/2013 04/22/2017 Testalgia [N50.819] 11/24/2013 04/22/2017 Cirrhosis [K74.60] 04/22/2017 Syncope [R55] 01/03/2014 04/22/2017 Pancytopenia (HCC) [D61.818] 03/11/2014 03/12/2014 Hypoxemia [R09.02] 03/11/2014 10/15/2015 COPD (chronic obstructive pulmonary disease) (H*03/11/2014 03/12/2014 Coagulopathy (HCC) [D68.9] 03/11/2014 04/22/2017 HCV (hepatitis C virus) [B19.20] 03/11/2014 Hepatopulmonary syndrome (HCC) [K76.81] 03/12/2014 08/19/2018 Bicytopenia [D75.89] 03/12/2014 04/22/2017 Adjustment disorder with mixed anxiety and depr*05/23/2014 PFO (patent foramen ovale) [Q21.1] 07/11/2014 Caries [K02.9] 08/15/2014 Retained dental root [K08.3] 08/15/2014 SUMMARY 08/31/2014 07/24/2016 Fever and chills [R50.9] 08/31/2014 04/22/2017 Fever, low grade [R50.9] 11/03/2014 04/22/2017 UTI (lower urinary tract infection) [N39.0] 04/08/2015 04/22/2017 Hepatic encephalopathy (HCC) [K72.90] 04/08/2015 04/22/2017 Sarcoidosis (HCC) [D86.9] 04/17/2015 Chronic hepatitis C without hepatic coma (HCC) *05/17/2015 Infection of other external stoma of urinary tr*05/17/2015 04/22/2017 SUMMARY 06/14/2015 09/12/2015 SOB (shortness of breath) [R06.02] 06/14/2015 04/22/2017 Hepatic cirrhosis (HCC) [K74.60] 06/14/2015 04/22/2017 Chronic abdominal pain [R10.9, G89.29] 07/20/2015 Hyperammonemia (HCC) [E72.20] 07/20/2015 04/22/2017 Pain disorder with psychological factors [F45.4*08/06/2015 Liver transplant candidate [Z76.82] 08/17/2015 04/22/2017 Abdominal distension [R14.0] 09/12/2015 04/22/2017 Hypothyroidism [E03.9] 09/12/2015 New onset seizure (HCC) [R56.9] 10/05/2015 11/22/2019 ARDS (adult respiratory distress syndrome) ( (more content not included)... Normal [facility] CNPNon 10-04-2021 CNPN Telephone (AKURFL) -- TROY CARLSON ([id number]) 1965 M Date Time Provider Department 10/04/21 FOSTER OGDEN During your visit today, we recorded the following information about you: Barbie Church 10/04/2021 11:20 AM Signed Pt called to update Dr. Ogden regarding Pre-op clearance. Pt completed the 2 cardio tests that his PCP was requiting for his surgery. PCP is aware. Pt is eager to move forward. The earliest appt you have is 11/25. Please advise. Thank you, Barbie Ogden MD 10/04/2021 11:25 AM Signed See notes regarding surgery , clearance, testing , Looks like we can proceed now if we get clearance Donna MARIN 10/23/2021 3:03 PM Signed Spoke with pt and surgery planned for 11/14/21. Donna MARIN Allergies As of Date: 10/04/2021 Noted Allergy Reaction ACETAMINOPHEN 04/27/2017 4 - Hives HYDROCODONE 04/27/2017 4 - Hives MORPHINE 08/05/2019 4 - Hives 14 - Other: See Comments LATEX 04/22/2013 2 - Rash VANCOMYCIN (BULK) 03/26/2016 2 - Rash 9 - Itching VICODIN (HYDROCODONE-ACETAMINOPHE* 08/20/2009 9 - Itching Date Reviewed: 10/02/2021 Reviewed by: Eulalia Aceves Ma - Fully Assessed Reason for Visit: Patient Update [1234] Prescriptions as of 10/23/2021 - tacrolimus IR (PROGRAF) 0.5 mg capsule Take 1 capsule (0.5 mg) by mouth twice daily. Take with 1mg capsule for total 1.5mg twice daily - tacrolimus IR (PROGRAF) 1 mg capsule Take 1 capsule (1mg) by mouth twice daily. Take in addition to one 0.5mg capsule for total dose of 1.5mg twice daily - pantoprazole DR (PROTONIX) 40 mg tablet Take 1 tablet by mouth daily before breakfast. Take on empty stomach, 1/2 hr before meal. - simvastatin (ZOCOR) 40 mg tablet Take 1 tablet by mouth daily at bedtime. - sertraline (ZOLOFT) 100 mg tablet Take 2 tablets at bedtime. - buPROPion XL (WELLBUTRIN XL) 300 mg 24 hr tablet Take 1 tablet by mouth once daily. - metoprolol succinate ER (TOPROL XL) 25 mg 24 hr tablet Take 1 tablet by mouth once daily. - tamsulosin (FLOMAX) 0.4 mg Take 1 capsule by mouth twice daily. - alendronate (FOSAMAX) 70 mg tablet Take 1 tablet by mouth one time a week. Take with a full glass of water, on an empty stomach; do NOT lie down for 30minutes. - lisinopril (ZESTRIL, PRINIVIL) 5 mg tablet Take 1 tablet by mouth once daily. - cholecalciferol (VITAMIN D-3) 5,000 unit tab Take 1 tablet by mouth once daily. - Garlic 1,000 mg cap Take 1 capsule by mouth once daily. - ursodiol (ACTIGALL) 300 mg capsule Take 1 capsule by mouth three times daily. - mupirocin (BACTROBAN) 2 % ointment Apply 1 application to affected area three times daily. Location: abdomen - Transparent Dressings (TEGADERM FRAME STYLE) 6 X 8 bndg Apply 1 application to affected area as needed. Facility-Administered Medications as of 10/23/2021 - perflutren lipid microspheres 1.3 mL in NaCl (PF) 0.9% 10 mL injection (DEFINITY) - sodium chloride 0.9 % (flush) 10 mL (BD POSIFLUSH) Meds Comments as of 07/15/2018: Pt reports ALL Medications are accurate 10/24/2016 70 07/15/18 The medications are managed by this patient by: CAREGIVER Elissa Smith, PharmD Problem List As Of Date 10/04/2021 Noted Resolved Thrombocytopenia [D69.6] 08/20/2009 04/22/2017 Hepatitis C [B19.20] 08/20/2009 11/03/2014 Splenomegaly [R16.1] 08/20/2009 Bilateral inguinal hernia (BIH) [K40.20] 12/26/2011 Epididymitis [N45.1] 11/24/2013 04/22/2017 Testalgia [N50.819] 11/24/2013 04/22/2017 Cirrhosis [K74.60] 04/22/2017 Syncope [R55] 01/03/2014 04/22/2017 Pancytopenia (HCC) [D61.818] 03/11/2014 03/12/2014 Hypoxemia [R09.02] 03/11/2014 10/15/2015 COPD (chronic obstructive pulmonary disease) (H*03/11/2014 03/12/2014 Coagulopathy (HCC) [D68.9] 03/11/2014 04/22/2017 HCV (hepatitis C virus) [B19.20] 03/11/2014 Hepatopulmonary syndrome (HCC) [K76.81] 03/12/2014 08/19/2018 Bicytopenia [D75.89] 03/12/2014 04/22/2017 Adjustment disorder with mixed anxiety and depr*05/23/2014 PFO (patent foramen ovale) [Q21.1] 07/11/2014 Caries [K02.9] 08/15/2014 Retained dental root [K08.3] 08/15/2014 SUMMARY 08/31/2014 07/24/2016 Fever and chills [R50.9] 08/31/2014 04/22/2017 Fever, low grade [R50.9] 11/03/2014 04/22/2017 UTI (lower urinary tract infection) [N39.0] 04/08/2015 04/22/2017 Hepatic encephalopathy (HCC) [K72.90] 04/08/2015 04/22/2017 Sarcoidosis (HCC) [D86.9] 04/17/2015 Chronic hepatitis C without hepatic coma (HCC) *05/17/2015 Infection of other external stoma of urinary tr*05/17/2015 04/22/2017 SUMMARY 06/14/2015 09/12/2015 SOB (shortness of breath) [R06.02] 06/14/2015 04/22/2017 Hepatic cirrhosis (HCC) [K74.60] 06/14/2015 04/22/2017 Chronic abdominal pain [R10.9, G89.29] 07/20/2015 Hyperammonemia (HCC) [E72.20] 07/20/2015 04/22/2017 Pain disorder with psychological factors [F45.4*08/06/2015 Liver transpl (more content not included)... Normal [facility] CNPNon 09-09-2021 CNPN Telephone (AKURFL) -- TROY CARLSON ([id number]) 1965 M Date Time Provider Department 09/09/21 SHANITA RICK During your visit today, we recorded the following information about you: Shanita Rick PA-C 09/09/2021 12:47 PM Signed Please call pt, urine is positive for uti, ampicillin sent to pharmacy. OMA Diallo Ma 09/09/2021 1:02 PM Signed Patient informed. Dayday Wade Ma Allergies As of Date: 09/09/2021 Noted Allergy Reaction ACETAMINOPHEN 04/27/2017 4 - Hives HYDROCODONE 04/27/2017 4 - Hives MORPHINE 08/05/2019 4 - Hives 14 - Other: See Comments LATEX 04/22/2013 2 - Rash VANCOMYCIN (BULK) 03/26/2016 2 - Rash 9 - Itching VICODIN (HYDROCODONE-ACETAMINOPHE* 08/20/2009 9 - Itching Date Reviewed: 09/05/2021 Reviewed by: Tete Bernabe RN - Fully Assessed Reason for Visit: Results [95] Order(s):ampicillin (PRINCIPEN) 500 mg capsuleTake 1 capsule by mouth three times daily for 7 days.Disp: 21 capsuleRfl: 0 Prescriptions as of 09/09/2021 - ampicillin (PRINCIPEN) 500 mg capsule Take 1 capsule by mouth three times daily for 7 days. - pantoprazole DR (PROTONIX) 40 mg tablet Take 1 tablet by mouth daily before breakfast. Take on empty stomach, 1/2 hr before meal. - simvastatin (ZOCOR) 40 mg tablet Take 1 tablet by mouth daily at bedtime. - sertraline (ZOLOFT) 100 mg tablet Take 2 tablets at bedtime. - buPROPion XL (WELLBUTRIN XL) 300 mg 24 hr tablet Take 1 tablet by mouth once daily. - metoprolol succinate ER (TOPROL XL) 25 mg 24 hr tablet Take 1 tablet by mouth once daily. - tamsulosin (FLOMAX) 0.4 mg Take 1 capsule by mouth twice daily. - alendronate (FOSAMAX) 70 mg tablet Take 1 tablet by mouth one time a week. Take with a full glass of water, on an empty stomach; do NOT lie down for 30minutes. - lisinopril (ZESTRIL, PRINIVIL) 5 mg tablet Take 1 tablet by mouth once daily. - cholecalciferol (VITAMIN D-3) 5,000 unit tab Take 1 tablet by mouth once daily. - Garlic 1,000 mg cap Take 1 capsule by mouth once daily. - tacrolimus (PROGRAF) 1 mg capsule Take 1 capsule by mouth twice daily. Take in addition to one 0.5mg capsule for total dose of 1.5mg twice daily - tacrolimus (PROGRAF) 0.5 mg capsule Take 1 capsule by mouth twice daily. (take with 1mg capsule to total 1.5mg PO BID) - ursodiol (ACTIGALL) 300 mg capsule Take 1 capsule by mouth three times daily. - mupirocin (BACTROBAN) 2 % ointment Apply 1 application to affected area three times daily. Location: abdomen - Transparent Dressings (TEGADERM FRAME STYLE) 6 X 8 bndg Apply 1 application to affected area as needed. Facility-Administered Medications as of 09/09/2021 - perflutren lipid microspheres 1.3 mL in NaCl (PF) 0.9% 10 mL injection (DEFINITY) - sodium chloride 0.9 % (flush) 10 mL (BD POSIFLUSH) Meds Comments as of 07/15/2018: Pt reports ALL Medications are accurate 10/24/2016 70 07/15/18 The medications are managed by this patient by: CAREGIVER Elissa Smith, PharmD Problem List As Of Date 09/09/2021 Noted Resolved Thrombocytopenia [D69.6] 08/20/2009 04/22/2017 Hepatitis C [B19.20] 08/20/2009 11/03/2014 Splenomegaly [R16.1] 08/20/2009 Bilateral inguinal hernia (BIH) [K40.20] 12/26/2011 Epididymitis [N45.1] 11/24/2013 04/22/2017 Testalgia [N50.819] 11/24/2013 04/22/2017 Cirrhosis [K74.60] 04/22/2017 Syncope [R55] 01/03/2014 04/22/2017 Pancytopenia (HCC) [D61.818] 03/11/2014 03/12/2014 Hypoxemia [R09.02] 03/11/2014 10/15/2015 COPD (chronic obstructive pulmonary disease) (H*03/11/2014 03/12/2014 Coagulopathy (HCC) [D68.9] 03/11/2014 04/22/2017 HCV (hepatitis C virus) [B19.20] 03/11/2014 Hepatopulmonary syndrome (HCC) [K76.81] 03/12/2014 08/19/2018 Bicytopenia [D75.89] 03/12/2014 04/22/2017 Adjustment disorder with mixed anxiety and depr*05/23/2014 PFO (patent foramen ovale) [Q21.1] 07/11/2014 Caries [K02.9] 08/15/2014 Retained dental root [K08.3] 08/15/2014 SUMMARY 08/31/2014 07/24/2016 Fever and chills [R50.9] 08/31/2014 04/22/2017 Fever, low grade [R50.9] 11/03/2014 04/22/2017 UTI (lower urinary tract infection) [N39.0] 04/08/2015 04/22/2017 Hepatic encephalopathy (HCC) [K72.90] 04/08/2015 04/22/2017 Sarcoidosis (HCC) [D86.9] 04/17/2015 Chronic hepatitis C without hepatic coma (HCC) *05/17/2015 Infection of other external stoma of urinary tr*05/17/2015 04/22/2017 SUMMARY 06/14/2015 09/12/2015 SOB (shortness of breath) [R06.02] 06/14/2015 04/22/2017 Hepatic cirrhosis (HCC) [K74.60] 06/14/2015 04/22/2017 Chronic abdominal pain [R10.9, G89.29] 07/20/2015 Hyperammonemia (HCC) [E72.20] 07/20/2015 04/22/2017 Pain disorder with psychological factors [F45.4*08/06/2015 Liver transplant candidate [Z76.82] 08/17/2015 04/22/2017 Abdominal distension [R14.0] 09/12/2015 04/22/2017 Hypothyroidism [E03.9] 09/12/2015 New onset seizure (HCC) [ (more content not included)... Normal [facility] Bacteria Ur Culton Bacteria identified Cx Nom (U) ORGANISM ID: 1 >=100,000 CFU/ml Enterococcus faecalis ORGANISM ID: 2 5,000 - <10,000 CFU/ml Gram negative bacilli Insignificant colony count. No further workup. ORGANISM ID: 3 10,000 -<50,000 CFU/ml Normal urogenital erum ORGANISM ID: 1 (ENTEROCOCCUS FAECALIS) ANTIBIOTIC INTERPRETATION [place] STATUS REFERENCE RANGE Ampicillin S 2 F Susceptible <=8 , Resistant >8 The results of ampicillin predict the susceptibility to amoxicillin, amoxicillin-clavulanate, ampicillin-sulbactam and piperacillin-taxobactam. Nitrofurantoin S <=16 F Susceptible <=32 , Intermediate >32 , Resistant >64 Vancomycin S 1 F Susceptible <=4 , Intermediate >4 , Resistant >16 Abnormal [facility] Comment on above: Performed By: #### 6 30-4 #### [facility] CLIA [id number] [address] CNNURSEon 09-05-2021 CNNURSE Nurse Visit (AKURFL) -- TROY CARLSON ([id number]) 1965 M Date Time Provider Department 09/05/21 1:00 PM NURSE UROL VADIM DELGADO During your visit today, we recorded the following information about you: Tete Bernabe RN 09/05/2021 1:24 PM Signed The patient presents today for the change of his Indwelling Urethral catheter. Time out; patient name verified: yes TIme in: 1300 Time out: 1:18 PM Procedure: The Indwelling Urethral non-latex catheter was changed without difficulty. The new 18 F coude catheter was changed using sterile technique. The balloon was inflated to 10CC with sterile water. The patient tolerated the procedure well. Comments: Lidocaine 2% jelly-11 ml used per patient request. Tete Bernabe RN Plan: upcoming surgery Referring Provider: GIANCARLO KENDALL [[id number]] Allergies As of Date: 09/05/2021 Noted Allergy Reaction ACETAMINOPHEN 04/27/2017 4 - Hives HYDROCODONE 04/27/2017 4 - Hives MORPHINE 08/05/2019 4 - Hives 14 - Other: See Comments LATEX 04/22/2013 2 - Rash VANCOMYCIN (BULK) 03/26/2016 2 - Rash 9 - Itching VICODIN (HYDROCODONE-ACETAMINOPHE* 08/20/2009 9 - Itching Date Reviewed: 09/05/2021 Reviewed by: Tete Bernabe RN - Fully Assessed Reason for Visit: UTI [116] Primary Visit Diagnosis:Bladder retention of urine [R33.9] Other Visit Diagnosis:Urinary tract infection without hematuria, site unspecified [N39.0] Order(s):URINE CULTURE [[facility]] Order #: [id number]. #:[id number] Prescriptions as of 09/05/2021 - pantoprazole DR (PROTONIX) 40 mg tablet Take 1 tablet by mouth daily before breakfast. Take on empty stomach, 1/2 hr before meal. - simvastatin (ZOCOR) 40 mg tablet Take 1 tablet by mouth daily at bedtime. - sertraline (ZOLOFT) 100 mg tablet Take 2 tablets at bedtime. - buPROPion XL (WELLBUTRIN XL) 300 mg 24 hr tablet Take 1 tablet by mouth once daily. - metoprolol succinate ER (TOPROL XL) 25 mg 24 hr tablet Take 1 tablet by mouth once daily. - tamsulosin (FLOMAX) 0.4 mg Take 1 capsule by mouth twice daily. - alendronate (FOSAMAX) 70 mg tablet Take 1 tablet by mouth one time a week. Take with a full glass of water, on an empty stomach; do NOT lie down for 30minutes. - lisinopril (ZESTRIL, PRINIVIL) 5 mg tablet Take 1 tablet by mouth once daily. - cholecalciferol (VITAMIN D-3) 5,000 unit tab Take 1 tablet by mouth once daily. - Garlic 1,000 mg cap Take 1 capsule by mouth once daily. - tacrolimus (PROGRAF) 1 mg capsule Take 1 capsule by mouth twice daily. Take in addition to one 0.5mg capsule for total dose of 1.5mg twice daily - tacrolimus (PROGRAF) 0.5 mg capsule Take 1 capsule by mouth twice daily. (take with 1mg capsule to total 1.5mg PO BID) - ursodiol (ACTIGALL) 300 mg capsule Take 1 capsule by mouth three times daily. - mupirocin (BACTROBAN) 2 % ointment Apply 1 application to affected area three times daily. Location: abdomen - Transparent Dressings (TEGADERM FRAME STYLE) 6 X 8 bndg Apply 1 application to affected area as needed. Facility-Administered Medications as of 09/05/2021 - perflutren lipid microspheres 1.3 mL in NaCl (PF) 0.9% 10 mL injection (DEFINITY) - sodium chloride 0.9 % (flush) 10 mL (BD POSIFLUSH) Meds Comments as of 07/15/2018: Pt reports ALL Medications are accurate 10/24/2016 70 07/15/18 The medications are managed by this patient by: CAREGIVER Elissa Smith, PharmD Problem List As Of Date 09/05/2021 Noted Resolved Thrombocytopenia [D69.6] 08/20/2009 04/22/2017 Hepatitis C [B19.20] 08/20/2009 11/03/2014 Splenomegaly [R16.1] 08/20/2009 Bilateral inguinal hernia (BIH) [K40.20] 12/26/2011 Epididymitis [N45.1] 11/24/2013 04/22/2017 Testalgia [N50.819] 11/24/2013 04/22/2017 Cirrhosis [K74.60] 04/22/2017 Syncope [R55] 01/03/2014 04/22/2017 Pancytopenia (HCC) [D61.818] 03/11/2014 03/12/2014 Hypoxemia [R09.02] 03/11/2014 10/15/2015 COPD (chronic obstructive pulmonary disease) (H*03/11/2014 03/12/2014 Coagulopathy (HCC) [D68.9] 03/11/2014 04/22/2017 HCV (hepatitis C virus) [B19.20] 03/11/2014 Hepatopulmonary syndrome (HCC) [K76.81] 03/12/2014 08/19/2018 Bicytopenia [D75.89] 03/12/2014 04/22/2017 Adjustment disorder with mixed anxiety and depr*05/23/2014 PFO (patent foramen ovale) [Q21.1] 07/11/2014 Caries [K02.9] 08/15/2014 Retained dental root [K08.3] 08/15/2014 SUMMARY 08/31/2014 07/24/2016 Fever and chills [R50.9] 08/31/2014 04/22/2017 Fever, low grade [R50.9] 11/03/2014 04/22/2017 UTI (lower urinary tract infection) [N39.0] 04/08/2015 04/22/2017 Hepatic encephalopathy (HCC) [K72.90] 04/08/2015 04/22/2017 Sarcoidosis (HCC) [D86.9] 04/17/2015 Chronic hepatitis C without hepatic coma (HCC) *05/17/2015 Infection of other external stoma of urinary tr*05/17/2015 04/22/2017 SUMMARY 06/14/2015 09/12/2015 SOB (shortness of breath) [R06.02] 06/14/2015 04/22/2017 (more content not included)... Normal [facility] NM CARDIAC PERF STRESS/PHARM on 09-05-2021 NM CARDIAC PERF STRESS/PHARM * * *Final Report* * * DATE OF EXAM: Sep 05 2021 11:00AM SUPA 0006 - NM CARDIAC PERF STRESS/PHARM / PROCEDURE REASON: R06.02-Shortness of breath * * * * Physician Interpretation * * * * Stress [employer] Consultant Report: [facility] Date of service: 09/05/2021 9:48:42 AM Supervising physician: Tino Rodriguez DO PATIENT: Name: MR. TROY CARLSON Age: 56 years Gender: M The supervising physician was present during the stress procedure. Final PATIENT: Name: MR. TROY CARLSON Age: 56 years Gender: M CONCLUSIONS: 1. SPECT Perfusion Study: Normal. 2. There is no scintigraphic evidence for inducible ischemia. 3. No evidence of scarred myocardium. 4. Left ventricle is normal in size. The left ventricle systolic function is normal. 5. Right ventricle is normal in size. 6. This is a low risk scan. 7. Focal apical thinning likely physiologic. Significant diaphragmatic GI attenuation artifact with likely no inferior or inferoseptal wall perfusion defect Gated Stress FBP LVEF % 70 Prior Study Comparison No prior nuclear cardiology exam available for comparison. Nuclear Med Report:1-Day Tc-Tetrofosmin Gated SPECT Myocardial Perfusion with Regadenoson Stress: Myocardial perfusion imaging was performed at rest 30 minutes following the IV injection of Tc-99m tetrofosmin. The patient received 0.4 mg of regadenoson, via rapid IV push, immediately followed by Tc-99m tetrofosmin IV. Gated post stress tomographic imaging was performed 30 to 60 minutes later. See administered doses below. [facility] Date of service: 09/05/2021 9:48:42 AM Indication: Dyspnea Interpreting physician: Mary Calles MD Height: 170.18 cm BSA: 1.88 m? Weight: 74.84 kg BMI: 25.8 kg/m? Imaging Protocol Limitation Reason G.I. uptake, Liver Retention and Diaphragmatic attenuation. Exam Type: Rest Stress Radiopharm: Tc-99m Tetrofosmin Tc-99m Tetrofosmin Dosage(mCi): 12.4 31 Atten Correction: not performed not performed Stress Agent: Regadenoson 0.4mg Supply provided from [facility] Resting Blood Press: 108/69 mmHg Image Quality The overall study imaging quality was deemed to be poor. The following technical issues were noted: G.I. uptake, Liver Retention and Diaphragmatic attenuation. FINDINGS: Stress IR:3D Gated Stress FBP LVEF: 70 % ED Volume: 114 ml ES Volume: 34 ml TID: 1.04 Perfusion Findings Stress IR:3D - Summed Score=4 There is a moderate perfusion defect in the apical inferior segment and apex. All remaining scored segments show normal perfusion. Rest IR:3D - Summed Score=3 There is a moderate perfusion defect in the apical inferior segment. There is a mild perfusion defect in the apex. All remaining scored segments show normal perfusion. Stress IR:3D Rest IR:3D Summed Score=4 Summed Score=3 LEFT VENTRICLE The left ventricle is normal in size. Left ventricular systolic function is normal. Right Ventricle The right ventricle is normal in size. Stress Test Findings: There is no scintigraphic evidence for inducible ischemia. There is no evidence of scarring. Final Stress ECG Report: [facility] Date of service: 09/05/2021 9:48:42 AM Ordering physician: SUJATA TORRES Specialist: Kelly Mccall Pickle Sorter: Christine Little Stress ECG interpreting physician: Tino Rodriguez DO PATIENT: Name: MR. TROY CARLSON Age: 56 years Gender: M Height: 170.18 cm BSA: 1.88 m? Weight: 74.84 kg BMI: 25.8 kg/m? Stress ECG Conclusion: Conclusion: Normal Stress ECG Summary: The patient's resting heart rate was 58 bpm and blood pressure was 108/69 mmHg. The test was terminated due to end of protocol. Other symptoms during the test included SOB and nausea. The maximum heart rate was 85 bpm, which is 53% of the predicted heart rate for age. Peak blood pressure was 163/78 mmHg. The double product achieved was [address]. Indication: Dyspnea on exertion Medical History and Comorbidities: Hypothyroidism, Atrial Fibrillation, Obesity and Cardiomyopathy, former smoker, hypertension and hyper-cholesterol. Medications: Last Used PROTONIX ZOCOR ZOLOFT METOPROLOL ZESTRIL WELLBUTRIN Resting ECG: Normal Sinus Rhythm Symptoms at rest: No symptoms Pharamcologic Protocol: Regadenoson Stress Exercise Table: +----+--+---+---+ Step HR SYS GILDA +----+--+---+---+ 1 63 122 39 +----+--+---+---+ 2 85 119 73 +----+--+---+---+ 3 83 113 75 +----+--+---+---+ 4 72 117 75 +----+--+---+---+ (more content not included)... Normal [facility] Dona 08-29-2021 [place]ST[place] Telephone (CDLBME) -- TROY CARLSON ([id number]) 1965 M Date Time Provider Department 08/29/21 TIBURCIOKELLY During your visit today, we recorded the following information about you: Allergies As of Date: 08/29/2021 Noted Allergy Reaction ACETAMINOPHEN 04/27/2017 4 - Hives HYDROCODONE 04/27/2017 4 - Hives MORPHINE 08/05/2019 4 - Hives 14 - Other: See Comments LATEX 04/22/2013 2 - Rash VANCOMYCIN (BULK) 03/26/2016 2 - Rash 9 - Itching VICODIN (HYDROCODONE-ACETAMINOPHE* 08/20/2009 9 - Itching Date Reviewed: 08/15/2021 Reviewed by: Catrina Mornoe LPN - Fully Assessed Reason for Visit: Reminder Call [1621] Prescriptions as of 08/29/2021 - pantoprazole DR (PROTONIX) 40 mg tablet Take 1 tablet by mouth daily before breakfast. Take on empty stomach, 1/2 hr before meal. - simvastatin (ZOCOR) 40 mg tablet Take 1 tablet by mouth daily at bedtime. - sertraline (ZOLOFT) 100 mg tablet Take 2 tablets at bedtime. - buPROPion XL (WELLBUTRIN XL) 300 mg 24 hr tablet Take 1 tablet by mouth once daily. - metoprolol succinate ER (TOPROL XL) 25 mg 24 hr tablet Take 1 tablet by mouth once daily. - tamsulosin (FLOMAX) 0.4 mg Take 1 capsule by mouth twice daily. - alendronate (FOSAMAX) 70 mg tablet Take 1 tablet by mouth one time a week. Take with a full glass of water, on an empty stomach; do NOT lie down for 30minutes. - lisinopril (ZESTRIL, PRINIVIL) 5 mg tablet Take 1 tablet by mouth once daily. - cholecalciferol (VITAMIN D-3) 5,000 unit tab Take 1 tablet by mouth once daily. - Garlic 1,000 mg cap Take 1 capsule by mouth once daily. - tacrolimus (PROGRAF) 1 mg capsule Take 1 capsule by mouth twice daily. Take in addition to one 0.5mg capsule for total dose of 1.5mg twice daily - tacrolimus (PROGRAF) 0.5 mg capsule Take 1 capsule by mouth twice daily. (take with 1mg capsule to total 1.5mg PO BID) - ursodiol (ACTIGALL) 300 mg capsule Take 1 capsule by mouth three times daily. - mupirocin (BACTROBAN) 2 % ointment Apply 1 application to affected area three times daily. Location: abdomen - Transparent Dressings (TEGADERM FRAME STYLE) 6 X 8 bndg Apply 1 application to affected area as needed. Facility-Administered Medications as of 08/29/2021 - perflutren lipid microspheres 1.3 mL in NaCl (PF) 0.9% 10 mL injection (DEFINITY) - sodium chloride 0.9 % (flush) 10 mL (BD POSIFLUSH) Meds Comments as of 07/15/2018: Pt reports ALL Medications are accurate 10/24/2016 70 07/15/18 The medications are managed by this patient by: CAREGIVER Elissa Smith, PharmD Problem List As Of Date 08/29/2021 Noted Resolved Thrombocytopenia [D69.6] 08/20/2009 04/22/2017 Hepatitis C [B19.20] 08/20/2009 11/03/2014 Splenomegaly [R16.1] 08/20/2009 Bilateral inguinal hernia (BIH) [K40.20] 12/26/2011 Epididymitis [N45.1] 11/24/2013 04/22/2017 Testalgia [N50.819] 11/24/2013 04/22/2017 Cirrhosis [K74.60] 04/22/2017 Syncope [R55] 01/03/2014 04/22/2017 Pancytopenia (HCC) [D61.818] 03/11/2014 03/12/2014 Hypoxemia [R09.02] 03/11/2014 10/15/2015 COPD (chronic obstructive pulmonary disease) (H*03/11/2014 03/12/2014 Coagulopathy (HCC) [D68.9] 03/11/2014 04/22/2017 HCV (hepatitis C virus) [B19.20] 03/11/2014 Hepatopulmonary syndrome (HCC) [K76.81] 03/12/2014 08/19/2018 Bicytopenia [D75.89] 03/12/2014 04/22/2017 Adjustment disorder with mixed anxiety and depr*05/23/2014 PFO (patent foramen ovale) [Q21.1] 07/11/2014 Caries [K02.9] 08/15/2014 Retained dental root [K08.3] 08/15/2014 SUMMARY 08/31/2014 07/24/2016 Fever and chills [R50.9] 08/31/2014 04/22/2017 Fever, low grade [R50.9] 11/03/2014 04/22/2017 UTI (lower urinary tract infection) [N39.0] 04/08/2015 04/22/2017 Hepatic encephalopathy (HCC) [K72.90] 04/08/2015 04/22/2017 Sarcoidosis (HCC) [D86.9] 04/17/2015 Chronic hepatitis C without hepatic coma (HCC) *05/17/2015 Infection of other external stoma of urinary tr*05/17/2015 04/22/2017 SUMMARY 06/14/2015 09/12/2015 SOB (shortness of breath) [R06.02] 06/14/2015 04/22/2017 Hepatic cirrhosis (HCC) [K74.60] 06/14/2015 04/22/2017 Chronic abdominal pain [R10.9, G89.29] 07/20/2015 Hyperammonemia (HCC) [E72.20] 07/20/2015 04/22/2017 Pain disorder with psychological factors [F45.4*08/06/2015 Liver transplant candidate [Z76.82] 08/17/2015 04/22/2017 Abdominal distension [R14.0] 09/12/2015 04/22/2017 Hypothyroidism [E03.9] 09/12/2015 New onset seizure (HCC) [R56.9] 10/05/2015 11/22/2019 ARDS (adult respiratory distress syndrome) (HCC*10/05/2015 04/22/2017 Postoperative anemia due to acute blood loss [D*10/05/2015 04/22/2017 Agitation requiring sedation protocol [R45.1] 10/05/2015 04/22/2017 S/P liver transplant (HCC) [Z94.4] 10/05/2015 Acute post-operative pain [G89.18] 10/05/2015 04/22/2017 Renal insufficiency [N28.9] 10/05/2015 10/08/2015 Stress hyperglycemia [R73.9] 10/05/2015 08/ (more content not included)... Normal [facility] 08-28-2021 [facility] Tele[facility] (UROLAE) -- TROY CARLSON ([id number]) 1965 M Date Time Provider Department 08/28/21 FOSTER OGDEN During your visit today, we recorded the following information about you: Dorothy Hairston Materials Research Engineer 08/28/2021 11:34 AM Signed Patient has cath in. Has upcoming surgery with you. Says he is taking flomax but is unsure if he needs to be while catheter is in. Has complaints of intense, frequent urges to urinate every hour. Urine is dark yellow and odorous. He does have some burning. States PCP did urine culture on 08/20/21 that was negative. CANDS is in Epic- shows contamination Foster Ogden MD 08/28/2021 12:19 PM Signed Hold flomax, Change birch and repeat culture Dorothy Hairston Cma 08/28/2021 1:34 PM Signed Patient notified to hold flomax. He is scheduled with nurse tomorrow for cath change and CANDS Dorothy Hairston Cma Allergies As of Date: 08/28/2021 Noted Allergy Reaction ACETAMINOPHEN 04/27/2017 4 - Hives HYDROCODONE 04/27/2017 4 - Hives MORPHINE 08/05/2019 4 - Hives 14 - Other: See Comments LATEX 04/22/2013 2 - Rash VANCOMYCIN (BULK) 03/26/2016 2 - Rash 9 - Itching VICODIN (HYDROCODONE-ACETAMINOPHE* 08/20/2009 9 - Itching Date Reviewed: 08/15/2021 Reviewed by: Catrina Monroe LPN - Fully Assessed Reason for Visit: Appointment [186] Prescriptions as of 08/28/2021 - pantoprazole DR (PROTONIX) 40 mg tablet Take 1 tablet by mouth daily before breakfast. Take on empty stomach, 1/2 hr before meal. - simvastatin (ZOCOR) 40 mg tablet Take 1 tablet by mouth daily at bedtime. - sertraline (ZOLOFT) 100 mg tablet Take 2 tablets at bedtime. - buPROPion XL (WELLBUTRIN XL) 300 mg 24 hr tablet Take 1 tablet by mouth once daily. - metoprolol succinate ER (TOPROL XL) 25 mg 24 hr tablet Take 1 tablet by mouth once daily. - tamsulosin (FLOMAX) 0.4 mg Take 1 capsule by mouth twice daily. - alendronate (FOSAMAX) 70 mg tablet Take 1 tablet by mouth one time a week. Take with a full glass of water, on an empty stomach; do NOT lie down for 30minutes. - lisinopril (ZESTRIL, PRINIVIL) 5 mg tablet Take 1 tablet by mouth once daily. - cholecalciferol (VITAMIN D-3) 5,000 unit tab Take 1 tablet by mouth once daily. - Garlic 1,000 mg cap Take 1 capsule by mouth once daily. - tacrolimus (PROGRAF) 1 mg capsule Take 1 capsule by mouth twice daily. Take in addition to one 0.5mg capsule for total dose of 1.5mg twice daily - tacrolimus (PROGRAF) 0.5 mg capsule Take 1 capsule by mouth twice daily. (take with 1mg capsule to total 1.5mg PO BID) - ursodiol (ACTIGALL) 300 mg capsule Take 1 capsule by mouth three times daily. - mupirocin (BACTROBAN) 2 % ointment Apply 1 application to affected area three times daily. Location: abdomen - Transparent Dressings (TEGADERM FRAME STYLE) 6 X 8 bndg Apply 1 application to affected area as needed. Facility-Administered Medications as of 08/28/2021 - perflutren lipid microspheres 1.3 mL in NaCl (PF) 0.9% 10 mL injection (DEFINITY) - sodium chloride 0.9 % (flush) 10 mL (BD POSIFLUSH) Meds Comments as of 07/15/2018: Pt reports ALL Medications are accurate 10/24/2016 70 07/15/18 The medications are managed by this patient by: CAREGIVER Elissa Smith, GinaD Problem List As Of Date 08/28/2021 Noted Resolved Thrombocytopenia [D69.6] 08/20/2009 04/22/2017 Hepatitis C [B19.20] 08/20/2009 11/03/2014 Splenomegaly [R16.1] 08/20/2009 Bilateral inguinal hernia (BIH) [K40.20] 12/26/2011 Epididymitis [N45.1] 11/24/2013 04/22/2017 Testalgia [N50.819] 11/24/2013 04/22/2017 Cirrhosis [K74.60] 04/22/2017 Syncope [R55] 01/03/2014 04/22/2017 Pancytopenia (HCC) [D61.818] 03/11/2014 03/12/2014 Hypoxemia [R09.02] 03/11/2014 10/15/2015 COPD (chronic obstructive pulmonary disease) (H*03/11/2014 03/12/2014 Coagulopathy (HCC) [D68.9] 03/11/2014 04/22/2017 HCV (hepatitis C virus) [B19.20] 03/11/2014 Hepatopulmonary syndrome (HCC) [K76.81] 03/12/2014 08/19/2018 Bicytopenia [D75.89] 03/12/2014 04/22/2017 Adjustment disorder with mixed anxiety and depr*05/23/2014 PFO (patent foramen ovale) [Q21.1] 07/11/2014 Caries [K02.9] 08/15/2014 Retained dental root [K08.3] 08/15/2014 SUMMARY 08/31/2014 07/24/2016 Fever and chills [R50.9] 08/31/2014 04/22/2017 Fever, low grade [R50.9] 11/03/2014 04/22/2017 UTI (lower urinary tract infection) [N39.0] 04/08/2015 04/22/2017 Hepatic encephalopathy (HCC) [K72.90] 04/08/2015 04/22/2017 Sarcoidosis (HCC) [D86.9] 04/17/2015 Chronic hepatitis C without hepatic coma (HCC) *05/17/2015 Infection of other external stoma of urinary tr*05/17/2015 04/22/2017 SUMMARY 06/14/2015 09/12/2015 SOB (shortness of breath) [R06.02] 06/14/2015 04/22/2017 Hepatic cirrhosis (HCC) [K74.60] 06/14/2015 04/22/2017 Chronic abdominal pain [R10.9, G89.29] 07/20/2015 Hyperammonemia (HCC) [E72.20] 07/20/2015 (more content not included)... Normal [facility] CNPNon 07-22-2021 CNPN Telephone (AKURFL) -- TROY CARLSON ([id number]) 1965 M Date Time Provider Department 07/22/21 FOSTER OGDEN During your visit today, we recorded the following information about you: Donna MARIN 07/22/2021 5:34 PM Signed Received surgical clearance form back from Dr Kendall- pt is NOT cleared for surgery, needs: 1) Cardio clearance 2) labs 3) CT of chest 4) follow up with transplant team Surgery is scheduled for 07/25/21. Pt notified that we will have to postpone for now. I will assist pt with getting the above steps 1-4 accomplished. Donna Ogden MD 07/23/2021 9:55 AM Signed Thanks Donna MARIN 07/25/2021 2:25 PM Addendum July 25, 2021 11:38 AM Update: 1) Pt scheduled to see Dr Kathy Velasquez at [facility] on 07/29/21 @ 2:20. Pt notified. Faxed clearance form, f. [phone]. [phone] 2) Labs ordered by Dr Kendall. 3) CT-chest scheduled for 08/05/21. 4) Pt states he has the contact info for the transplant team and has left them a message to schedule an appt. Donna MARIN Allergies As of Date: 07/22/2021 Noted Allergy Reaction ACETAMINOPHEN 04/27/2017 4 - Hives HYDROCODONE 04/27/2017 4 - Hives MORPHINE 08/05/2019 4 - Hives 14 - Other: See Comments LATEX 04/22/2013 2 - Rash VANCOMYCIN (BULK) 03/26/2016 2 - Rash 9 - Itching VICODIN (HYDROCODONE-ACETAMINOPHE* 08/20/2009 9 - Itching Date Reviewed: 07/18/2021 Reviewed by: Catrina Monroe LPN - Fully Assessed Reason for Visit: Surgery Postponed [Other] Prescriptions as of 07/25/2021 - nitrofurantoin monohydrate and macrocrystal (MACROBID) 100 mg capsule Take 1 capsule by mouth twice daily with meals for 7 days. - pantoprazole DR (PROTONIX) 40 mg tablet Take 1 tablet by mouth daily before breakfast. Take on empty stomach, 1/2 hr before meal. - simvastatin (ZOCOR) 40 mg tablet Take 1 tablet by mouth daily at bedtime. - sertraline (ZOLOFT) 100 mg tablet Take 2 tablets at bedtime. - buPROPion XL (WELLBUTRIN XL) 300 mg 24 hr tablet Take 1 tablet by mouth once daily. - metoprolol succinate ER (TOPROL XL) 25 mg 24 hr tablet Take 1 tablet by mouth once daily. - tamsulosin (FLOMAX) 0.4 mg Take 1 capsule by mouth twice daily. - alendronate (FOSAMAX) 70 mg tablet Take 1 tablet by mouth one time a week. Take with a full glass of water, on an empty stomach; do NOT lie down for 30minutes. - lisinopril (ZESTRIL, PRINIVIL) 5 mg tablet Take 1 tablet by mouth once daily. - cholecalciferol (VITAMIN D-3) 5,000 unit tab Take 1 tablet by mouth once daily. - Garlic 1,000 mg cap Take 1 capsule by mouth once daily. - tacrolimus (PROGRAF) 1 mg capsule Take 1 capsule by mouth twice daily. Take in addition to one 0.5mg capsule for total dose of 1.5mg twice daily - tacrolimus (PROGRAF) 0.5 mg capsule Take 1 capsule by mouth twice daily. (take with 1mg capsule to total 1.5mg PO BID) - ursodiol (ACTIGALL) 300 mg capsule Take 1 capsule by mouth three times daily. - mupirocin (BACTROBAN) 2 % ointment Apply 1 application to affected area three times daily. Location: abdomen - Transparent Dressings (TEGADERM FRAME STYLE) 6 X 8 bndg Apply 1 application to affected area as needed. Meds Comments as of 07/15/2018: Pt reports ALL Medications are accurate 10/24/2016 70 07/15/18 The medications are managed by this patient by: CAREGIVER Elissa Smith, PharmD Problem List As Of Date 07/22/2021 Noted Resolved Thrombocytopenia [D69.6] 08/20/2009 04/22/2017 Hepatitis C [B19.20] 08/20/2009 11/03/2014 Splenomegaly [R16.1] 08/20/2009 Bilateral inguinal hernia (BIH) [K40.20] 12/26/2011 Epididymitis [N45.1] 11/24/2013 04/22/2017 Testalgia [N50.819] 11/24/2013 04/22/2017 Cirrhosis [K74.60] 04/22/2017 Syncope [R55] 01/03/2014 04/22/2017 Pancytopenia (HCC) [D61.818] 03/11/2014 03/12/2014 Hypoxemia [R09.02] 03/11/2014 10/15/2015 COPD (chronic obstructive pulmonary disease) (H*03/11/2014 03/12/2014 Coagulopathy (HCC) [D68.9] 03/11/2014 04/22/2017 HCV (hepatitis C virus) [B19.20] 03/11/2014 Hepatopulmonary syndrome (HCC) [K76.81] 03/12/2014 08/19/2018 Bicytopenia [D75.89] 03/12/2014 04/22/2017 Adjustment disorder with mixed anxiety and depr*05/23/2014 PFO (patent foramen ovale) [Q21.1] 07/11/2014 Caries [K02.9] 08/15/2014 Retained dental root [K08.3] 08/15/2014 SUMMARY 08/31/2014 07/24/2016 Fever and chills [R50.9] 08/31/2014 04/22/2017 Fever, low grade [R50.9] 11/03/2014 04/22/2017 UTI (lower urinary tract infection) [N39.0] 04/08/2015 04/22/2017 Hepatic encephalopathy (HCC) [K72.90] 04/08/2015 04/22/2017 Sarcoidosis (HCC) [D86.9] 04/17/2015 Chronic hepatitis C without hepatic coma (HCC) *05/17/2015 Infection of other external stoma of urinary tr*05/17/2015 04/22/2017 SUMMARY 06/14/2015 09/12/2015 SOB (shortness of breath) [R06.02] 06/14/2015 04/22/2017 Hep (more content not included)... Normal [facility] CNPNon 07-16-2021 CNPN Telephone (AKURFL) -- TROY CARLSON ([id number]) 1965 M Date Time Provider Department 07/16/21 FOSTER OGDEN AKURFL During your visit today, we recorded the following information about you: Brandi Tan RN 07/16/2021 8:16 AM Signed Patient scheduled for cystoscopy on 07/25. He has COVID test scheduled today. Patient states he just had a COVID test on 07/13 that was negative and wonders if he still has to be tested again today? Explained that negative result needs to be within 72 hours but would check with surgeon. Patient verbalized understanding. Donna Fierro COORD 07/16/2021 3:34 PM Signed I spoke with pt over the phone today and explained again the timing of the presurgery tests- lab work and Covid testing. Pt states he understood. Donna Fierro COORD Allergies As of Date: 07/16/2021 Noted Allergy Reaction ACETAMINOPHEN 04/27/2017 4 - Hives HYDROCODONE 04/27/2017 4 - Hives MORPHINE 08/05/2019 4 - Hives 14 - Other: See Comments LATEX 04/22/2013 2 - Rash VANCOMYCIN (BULK) 03/26/2016 2 - Rash 9 - Itching VICODIN (HYDROCODONE-ACETAMINOPHE* 08/20/2009 9 - Itching Date Reviewed: 07/13/2021 Reviewed by: Candy Bailey - Fully Assessed Reason for Visit: Patient Question [1477] Prescriptions as of 07/16/2021 - ciprofloxacin HCl (CIPRO) 500 mg tablet Take 1 tablet by mouth twice daily for 7 days. - phenazopyridine (PYRIDIUM, GERIDIUM) 200 mg tablet Take 1 tablet by mouth three times daily as needed. - pantoprazole DR (PROTONIX) 40 mg tablet Take 1 tablet by mouth daily before breakfast. Take on empty stomach, 1/2 hr before meal. - simvastatin (ZOCOR) 40 mg tablet Take 1 tablet by mouth daily at bedtime. - sertraline (ZOLOFT) 100 mg tablet Take 2 tablets at bedtime. - buPROPion XL (WELLBUTRIN XL) 300 mg 24 hr tablet Take 1 tablet by mouth once daily. - metoprolol succinate ER (TOPROL XL) 25 mg 24 hr tablet Take 1 tablet by mouth once daily. - tamsulosin (FLOMAX) 0.4 mg Take 1 capsule by mouth twice daily. - alendronate (FOSAMAX) 70 mg tablet Take 1 tablet by mouth one time a week. Take with a full glass of water, on an empty stomach; do NOT lie down for 30minutes. - sulfamethoxazole-trimethop rim (BACTRIM DS,SEPTRA DS) 800-160 mg per tablet 1 tablet every Thursday,Thursday,Thursday. - lisinopril (ZESTRIL, PRINIVIL) 5 mg tablet Take 1 tablet by mouth once daily. - cholecalciferol (VITAMIN D-3) 5,000 unit tab Take 1 tablet by mouth once daily. - Garlic 1,000 mg cap Take 1 capsule by mouth once daily. - cyclobenzaprine (FLEXERIL) 10 mg tablet Take 1 tablet by mouth three times daily as needed for muscle spasm. - tacrolimus (PROGRAF) 1 mg capsule Take 1 capsule by mouth twice daily. Take in addition to one 0.5mg capsule for total dose of 1.5mg twice daily - tacrolimus (PROGRAF) 0.5 mg capsule Take 1 capsule by mouth twice daily. (take with 1mg capsule to total 1.5mg PO BID) - ursodiol (ACTIGALL) 300 mg capsule Take 1 capsule by mouth three times daily. - nortriptyline (PAMELOR) 10 mg capsule Take 1 capsule by mouth daily at bedtime. - mupirocin (BACTROBAN) 2 % ointment Apply 1 application to affected area three times daily. Location: abdomen - Transparent Dressings (TEGADERM FRAME STYLE) 6 X 8 bndg Apply 1 application to affected area as needed. Meds Comments as of 07/15/2018: Pt reports ALL Medications are accurate 10/24/2016 70 07/15/18 The medications are managed by this patient by: CAREGIVER Elissa Smith, PharmD Problem List As Of Date 07/16/2021 Noted Resolved Thrombocytopenia [D69.6] 08/20/2009 04/22/2017 Hepatitis C [B19.20] 08/20/2009 11/03/2014 Splenomegaly [R16.1] 08/20/2009 Bilateral inguinal hernia (BIH) [K40.20] 12/26/2011 Epididymitis [N45.1] 11/24/2013 04/22/2017 Testalgia [N50.819] 11/24/2013 04/22/2017 Cirrhosis [K74.60] 04/22/2017 Syncope [R55] 01/03/2014 04/22/2017 Pancytopenia (HCC) [D61.818] 03/11/2014 03/12/2014 Hypoxemia [R09.02] 03/11/2014 10/15/2015 COPD (chronic obstructive pulmonary disease) (H*03/11/2014 03/12/2014 Coagulopathy (HCC) [D68.9] 03/11/2014 04/22/2017 HCV (hepatitis C virus) [B19.20] 03/11/2014 Hepatopulmonary syndrome (HCC) [K76.81] 03/12/2014 08/19/2018 Bicytopenia [D75.89] 03/12/2014 04/22/2017 Adjustment disorder with mixed anxiety and depr*05/23/2014 PFO (patent foramen ovale) [Q21.1] 07/11/2014 Caries [K02.9] 08/15/2014 Retained dental root [K08.3] 08/15/2014 SUMMARY 08/31/2014 07/24/2016 Fever and chills [R50.9] 08/31/2014 04/22/2017 Fever, low grade [R50.9] 11/03/2014 04/22/2017 UTI (lower urinary tract infection) [N39.0] 04/08/2015 04/22/2017 Hepatic encephalopathy (HCC) [K72.90] 04/08/2015 04/22/2017 Sarcoidosis (HCC) [D86.9] 04/17/2015 Chronic hepatitis C without hepatic coma (HCC) *05/17/2015 Infection of other external stoma of urinary tr*05/17/2015 04/22/2017 SUMMARY 1 (more content not included)... [facility] NURSING PROGon 07-16-2021 NURSING PROG HNO ID: [id number] Author: Tara Bunch, RN Service: Nursing Author Type: Registered Nurse Type: Nursing Progress Note Filed: 07/16/2021 9:36 AM Note Text: Pt called chart command, stating he could not come to [facility] today and wanted to go to his primary doctor instead. Instructed patient to call Dr Ogdne's office. [facility] CNPNon 07-15-2021 CNPN Telephone (AKURFL) -- TROY CARLSON ([id number]) 1965 M Date Time Provider Department 07/15/21 FOSTER OGDEN During your visit today, we recorded the following information about you: Donna Fierro COORD 07/15/2021 11:27 AM Signed Pt is scheduled for Cysto, TURP with Dr Ogden at [facility] on 07/25/21 @ 9:15 (7:15 arrival) Pt coming to [place] office on 07/16/21 @ 11:30 for catheter change and urine culture. PAT on 07/16/21 @ 1:40 at [facility]. Covid test on 07/22/21 @ 2:00pm at [place]. Pt given all dates, times, prep and arrival instructions over the phone on 07/15/21. [email or web address] message sent also. Medical Clearance form faxed to Dr Giancarlo Kendall on 07/08/21, [phone]. ,Donna MARIN 07/18/2021 12:12 PM Signed After confirming all dates and times with pt, he no-showed for the catheter change on 07/16/21 and stated he wouldn't be going to the PAT that day either. Pt scheduled for cath change/urine culture at [place] on 07/19/21. Pt will see Dr Kendall on 07/18/21 for medical clearance for surgery. PAT rescheduled to 07/23/21 @ 8:40am at [facility]. Donna MARIN Allergies As of Date: 07/15/2021 Noted Allergy Reaction ACETAMINOPHEN 04/27/2017 4 - Hives HYDROCODONE 04/27/2017 4 - Hives MORPHINE 08/05/2019 4 - Hives 14 - Other: See Comments LATEX 04/22/2013 2 - Rash VANCOMYCIN (BULK) 03/26/2016 2 - Rash 9 - Itching VICODIN (HYDROCODONE-ACETAMINOPHE* 08/20/2009 9 - Itching Date Reviewed: 07/13/2021 Reviewed by: Candy Bailey - Fully Assessed Reason for Visit: Surgery Scheduled [Other] Prescriptions as of 07/18/2021 - ciprofloxacin HCl (CIPRO) 500 mg tablet Take 1 tablet by mouth twice daily for 7 days. - phenazopyridine (PYRIDIUM, GERIDIUM) 200 mg tablet Take 1 tablet by mouth three times daily as needed. - pantoprazole DR (PROTONIX) 40 mg tablet Take 1 tablet by mouth daily before breakfast. Take on empty stomach, 1/2 hr before meal. - simvastatin (ZOCOR) 40 mg tablet Take 1 tablet by mouth daily at bedtime. - sertraline (ZOLOFT) 100 mg tablet Take 2 tablets at bedtime. - buPROPion XL (WELLBUTRIN XL) 300 mg 24 hr tablet Take 1 tablet by mouth once daily. - metoprolol succinate ER (TOPROL XL) 25 mg 24 hr tablet Take 1 tablet by mouth once daily. - tamsulosin (FLOMAX) 0.4 mg Take 1 capsule by mouth twice daily. - alendronate (FOSAMAX) 70 mg tablet Take 1 tablet by mouth one time a week. Take with a full glass of water, on an empty stomach; do NOT lie down for 30minutes. - sulfamethoxazole-trimethop rim (BACTRIM DS,SEPTRA DS) 800-160 mg per tablet 1 tablet every Thursday,Thursday,Thursday. - lisinopril (ZESTRIL, PRINIVIL) 5 mg tablet Take 1 tablet by mouth once daily. - cholecalciferol (VITAMIN D-3) 5,000 unit tab Take 1 tablet by mouth once daily. - Garlic 1,000 mg cap Take 1 capsule by mouth once daily. - cyclobenzaprine (FLEXERIL) 10 mg tablet Take 1 tablet by mouth three times daily as needed for muscle spasm. - tacrolimus (PROGRAF) 1 mg capsule Take 1 capsule by mouth twice daily. Take in addition to one 0.5mg capsule for total dose of 1.5mg twice daily - tacrolimus (PROGRAF) 0.5 mg capsule Take 1 capsule by mouth twice daily. (take with 1mg capsule to total 1.5mg PO BID) - ursodiol (ACTIGALL) 300 mg capsule Take 1 capsule by mouth three times daily. - nortriptyline (PAMELOR) 10 mg capsule Take 1 capsule by mouth daily at bedtime. - mupirocin (BACTROBAN) 2 % ointment Apply 1 application to affected area three times daily. Location: abdomen - Transparent Dressings (TEGADERM FRAME STYLE) 6 X 8 bndg Apply 1 application to affected area as needed. Meds Comments as of 07/15/2018: Pt reports ALL Medications are accurate 10/24/2016 70 07/15/18 The medications are managed by this patient by: CAREGIVER Elissa Smith, PharmD Problem List As Of Date 07/15/2021 Noted Resolved Thrombocytopenia [D69.6] 08/20/2009 04/22/2017 Hepatitis C [B19.20] 08/20/2009 11/03/2014 Splenomegaly [R16.1] 08/20/2009 Bilateral inguinal hernia (BIH) [K40.20] 12/26/2011 Epididymitis [N45.1] 11/24/2013 04/22/2017 Testalgia [N50.819] 11/24/2013 04/22/2017 Cirrhosis [K74.60] 04/22/2017 Syncope [R55] 01/03/2014 04/22/2017 Pancytopenia (HCC) [D61.818] 03/11/2014 03/12/2014 Hypoxemia [R09.02] 03/11/2014 10/15/2015 COPD (chronic obstructive pulmonary disease) (H*03/11/2014 03/12/2014 Coagulopathy (HCC) [D68.9] 03/11/2014 04/22/2017 HCV (hepatitis C virus) [B19.20] 03/11/2014 Hepatopulmonary syndrome (HCC) [K76.81] 03/12/2014 08/19/2018 Bicytopenia [D75.89] 03/12/2014 04/22/2017 Adjustment disorder with mixed anxiety and depr*05/23/2014 PFO (patent foramen ovale) [Q21.1] 07/11/2014 Caries [K02.9] 08/15/2014 Retained dental root [K08.3] 08/15/2014 SUMMARY 08/31/2014 07/24/2016 Fever and chills [R50.9] 08/31/2014 04/22/2017 Fever (more content not included)... Normal [facility] 07-03-2021 [place] Telephone (AKURFL) -- TROY CARLSON ([id number]) 1965 M Date Time Provider Department 07/03/21 FOSTER OGDEN During your visit today, we recorded the following information about you: Barbie Church 07/03/2021 9:57 AM Signed Pt has had catheter in for the past 4 months. At this point pt's [facility] urologist is telling pt to see you for follow up. The soonest appt is in October and he's a liver transplant pt. Where do you want me to schedule him? Barbie Ogden MD 07/03/2021 10:08 AM Signed Pt needs scheduled for cystoscopy, transurethral resection of prostate, overnight stay. He will need medical clearance. He will need pretesting including culture 10 days preop Donna MARIN 07/08/2021 11:23 AM Signed Pt notified of below and surgery planned for 07/25/21. Donna Fierro COORD Allergies As of Date: 07/03/2021 Noted Allergy Reaction LATEX 04/22/2013 2 - Rash VANCOMYCIN (BULK) 03/26/2016 2 - Rash 9 - Itching VICODIN (HYDROCODONE-ACETAMINOPHE* 08/20/2009 9 - Itching Date Reviewed: 06/25/2021 Reviewed by: Karla Andino RN - Fully Assessed Reason for Visit: Appointment [186] Prescriptions as of 07/08/2021 - phenazopyridine (PYRIDIUM, GERIDIUM) 200 mg tablet Take 1 tablet by mouth three times daily as needed. - pantoprazole DR (PROTONIX) 40 mg tablet Take 1 tablet by mouth daily before breakfast. Take on empty stomach, 1/2 hr before meal. - simvastatin (ZOCOR) 40 mg tablet Take 1 tablet by mouth daily at bedtime. - sertraline (ZOLOFT) 100 mg tablet Take 2 tablets at bedtime. - buPROPion XL (WELLBUTRIN XL) 300 mg 24 hr tablet Take 1 tablet by mouth once daily. - metoprolol succinate ER (TOPROL XL) 25 mg 24 hr tablet Take 1 tablet by mouth once daily. - tamsulosin (FLOMAX) 0.4 mg Take 1 capsule by mouth twice daily. - alendronate (FOSAMAX) 70 mg tablet Take 1 tablet by mouth one time a week. Take with a full glass of water, on an empty stomach; do NOT lie down for 30minutes. - sulfamethoxazole-trimethop rim (BACTRIM DS,SEPTRA DS) 800-160 mg per tablet 1 tablet every Thursday,Thursday,Thursday. - lisinopril (ZESTRIL, PRINIVIL) 5 mg tablet Take 1 tablet by mouth once daily. - cholecalciferol (VITAMIN D-3) 5,000 unit tab Take 1 tablet by mouth once daily. - Garlic 1,000 mg cap Take 1 capsule by mouth once daily. - cyclobenzaprine (FLEXERIL) 10 mg tablet Take 1 tablet by mouth three times daily as needed for muscle spasm. - tacrolimus (PROGRAF) 1 mg capsule Take 1 capsule by mouth twice daily. Take in addition to one 0.5mg capsule for total dose of 1.5mg twice daily - tacrolimus (PROGRAF) 0.5 mg capsule Take 1 capsule by mouth twice daily. (take with 1mg capsule to total 1.5mg PO BID) - ursodiol (ACTIGALL) 300 mg capsule Take 1 capsule by mouth three times daily. - potassium chloride (K-TAB) 10 mEq tablet Take 10 mEq by mouth twice daily. - nortriptyline (PAMELOR) 10 mg capsule Take 1 capsule by mouth daily at bedtime. - mupirocin (BACTROBAN) 2 % ointment Apply 1 application to affected area three times daily. Location: abdomen - Transparent Dressings (TEGADERM FRAME STYLE) 6 X 8 bndg Apply 1 application to affected area as needed. Meds Comments as of 07/15/2018: Pt reports ALL Medications are accurate 10/24/2016 70 07/15/18 The medications are managed by this patient by: CAREGIVER Elissa Smith, GinaD Problem List As Of Date 07/03/2021 Noted Resolved Thrombocytopenia [D69.6] 08/20/2009 04/22/2017 Hepatitis C [B19.20] 08/20/2009 11/03/2014 Splenomegaly [R16.1] 08/20/2009 Bilateral inguinal hernia (BIH) [K40.20] 12/26/2011 Epididymitis [N45.1] 11/24/2013 04/22/2017 Testalgia [N50.819] 11/24/2013 04/22/2017 Cirrhosis [K74.60] 04/22/2017 Syncope [R55] 01/03/2014 04/22/2017 Pancytopenia (HCC) [D61.818] 03/11/2014 03/12/2014 Hypoxemia [R09.02] 03/11/2014 10/15/2015 COPD (chronic obstructive pulmonary disease) (H*03/11/2014 03/12/2014 Coagulopathy (HCC) [D68.9] 03/11/2014 04/22/2017 HCV (hepatitis C virus) [B19.20] 03/11/2014 Hepatopulmonary syndrome (HCC) [K76.81] 03/12/2014 08/19/2018 Bicytopenia [D75.89] 03/12/2014 04/22/2017 Adjustment disorder with mixed anxiety and depr*05/23/2014 PFO (patent foramen ovale) [Q21.1] 07/11/2014 Caries [K02.9] 08/15/2014 Retained dental root [K08.3] 08/15/2014 SUMMARY 08/31/2014 07/24/2016 Fever and chills [R50.9] 08/31/2014 04/22/2017 Fever, low grade [R50.9] 11/03/2014 04/22/2017 UTI (lower urinary tract infection) [N39.0] 04/08/2015 04/22/2017 Hepatic encephalopathy (HCC) [K72.90] 04/08/2015 04/22/2017 Sarcoidosis (HCC) [D86.9] 04/17/2015 Chronic hepatitis C without hepatic coma (HCC) *05/17/2015 Infection of other external stoma of urinary tr*05/17/2015 04/22/2017 SUMMARY 06/14/2015 09/12/2015 SOB (shortness of breath) [R06.02] 06/14/2015 04/22/2017 Hepati (more content not included)... Normal [facility] CNPMel 06-20-2021 CNPN Telephone (AKURFL) -- TROY CARLSON ([id number]) 1965 M Date Time Provider Department 06/20/21 FOSTER OGDEN During your visit today, we recorded the following information about you: Shelby Lucas [facility] 06/20/2021 10:36 AM Signed ----- Message from Foster Ogden MD sent at 06/20/2021 10:06 AM EDT ----- Call qing silvestre sent to pharmacy Shelby Lucas [facility] 06/20/2021 10:37 AM Signed Called patient to advise of culture results and advised or script at pharm. Shelby Lucas [facility] Allergies As of Date: 06/20/2021 Noted Allergy Reaction LATEX 04/22/2013 2 - Rash VANCOMYCIN (BULK) 03/26/2016 2 - Rash 9 - Itching VICODIN (HYDROCODONE-ACETAMINOPHE* 08/20/2009 9 - Itching Date Reviewed: 06/17/2021 Reviewed by: Nadiya Clement [facility] - Fully Assessed Reason for Visit: Results [95] Prescriptions as of 06/20/2021 - ciprofloxacin HCl (CIPRO) 500 mg tablet Take 1 tablet by mouth twice daily for 7 days. - phenazopyridine (PYRIDIUM, GERIDIUM) 200 mg tablet Take 1 tablet by mouth three times daily as needed. - pantoprazole DR (PROTONIX) 40 mg tablet Take 1 tablet by mouth daily before breakfast. Take on empty stomach, 1/2 hr before meal. - simvastatin (ZOCOR) 40 mg tablet Take 1 tablet by mouth daily at bedtime. - sertraline (ZOLOFT) 100 mg tablet Take 2 tablets at bedtime. - buPROPion XL (WELLBUTRIN XL) 300 mg 24 hr tablet Take 1 tablet by mouth once daily. - metoprolol succinate ER (TOPROL XL) 25 mg 24 hr tablet Take 1 tablet by mouth once daily. - tamsulosin (FLOMAX) 0.4 mg Take 1 capsule by mouth twice daily. - alendronate (FOSAMAX) 70 mg tablet Take 1 tablet by mouth one time a week. Take with a full glass of water, on an empty stomach; do NOT lie down for 30minutes. - sulfamethoxazole-trimethop rim (BACTRIM DS,SEPTRA DS) 800-160 mg per tablet 1 tablet every Thursday,Thursday,Thursday. - lisinopril (ZESTRIL, PRINIVIL) 5 mg tablet Take 1 tablet by mouth once daily. - cholecalciferol (VITAMIN D-3) 5,000 unit tab Take 1 tablet by mouth once daily. - Garlic 1,000 mg cap Take 1 capsule by mouth once daily. - cyclobenzaprine (FLEXERIL) 10 mg tablet Take 1 tablet by mouth three times daily as needed for muscle spasm. - tacrolimus (PROGRAF) 1 mg capsule Take 1 capsule by mouth twice daily. Take in addition to one 0.5mg capsule for total dose of 1.5mg twice daily - tacrolimus (PROGRAF) 0.5 mg capsule Take 1 capsule by mouth twice daily. (take with 1mg capsule to total 1.5mg PO BID) - ursodiol (ACTIGALL) 300 mg capsule Take 1 capsule by mouth three times daily. - potassium chloride (K-TAB) 10 mEq tablet Take 10 mEq by mouth twice daily. - nortriptyline (PAMELOR) 10 mg capsule Take 1 capsule by mouth daily at bedtime. - mupirocin (BACTROBAN) 2 % ointment Apply 1 application to affected area three times daily. Location: abdomen - Transparent Dressings (TEGADERM FRAME STYLE) 6 X 8 bndg Apply 1 application to affected area as needed. Meds Comments as of 07/15/2018: Pt reports ALL Medications are accurate 10/24/2016 70 07/15/18 The medications are managed by this patient by: CAREGIVER Elissa Smith, GinaD Problem List As Of Date 06/20/2021 Noted Resolved Thrombocytopenia [D69.6] 08/20/2009 04/22/2017 Hepatitis C [B19.20] 08/20/2009 11/03/2014 Splenomegaly [R16.1] 08/20/2009 Bilateral inguinal hernia (BIH) [K40.20] 12/26/2011 Epididymitis [N45.1] 11/24/2013 04/22/2017 Testalgia [N50.819] 11/24/2013 04/22/2017 Cirrhosis [K74.60] 04/22/2017 Syncope [R55] 01/03/2014 04/22/2017 Pancytopenia (HCC) [D61.818] 03/11/2014 03/12/2014 Hypoxemia [R09.02] 03/11/2014 10/15/2015 COPD (chronic obstructive pulmonary disease) (H*03/11/2014 03/12/2014 Coagulopathy (HCC) [D68.9] 03/11/2014 04/22/2017 HCV (hepatitis C virus) [B19.20] 03/11/2014 Hepatopulmonary syndrome (HCC) [K76.81] 03/12/2014 08/19/2018 Bicytopenia [D75.89] 03/12/2014 04/22/2017 Adjustment disorder with mixed anxiety and depr*05/23/2014 PFO (patent foramen ovale) [Q21.1] 07/11/2014 Caries [K02.9] 08/15/2014 Retained dental root [K08.3] 08/15/2014 SUMMARY 08/31/2014 07/24/2016 Fever and chills [R50.9] 08/31/2014 04/22/2017 Fever, low grade [R50.9] 11/03/2014 04/22/2017 UTI (lower urinary tract infection) [N39.0] 04/08/2015 04/22/2017 Hepatic encephalopathy (HCC) [K72.90] 04/08/2015 04/22/2017 Sarcoidosis (HCC) [D86.9] 04/17/2015 Chronic hepatitis C without hepatic coma (HCC) *05/17/2015 Infection of other external stoma of urinary tr*05/17/2015 04/22/2017 SUMMARY 06/14/2015 09/12/2015 SOB (shortness of breath) [R06.02] 06/14/2015 04/22/2017 Hepatic cirrhosis (HCC) [K74.60] 06/14/2015 04/22/2017 Chronic abdominal pain [R10.9, G89.29] 07/20/2015 Hyperammonemia (HCC) [E72.20] 07/20/2015 04/22/2017 Pain disorder with psychological factors [F45.4*08/06/2015 Liver transplant candidate (more content not included)... Normal [facility] Bacteria Ur Culton 1 Bacteria identified Cx Nom (U) ORGANISM ID: 1 50,000-<100,000 CFU/ml Escherichia coli ORGANISM ID: 1 (ESCHERICHIA COLI) ANTIBIOTIC INTERPRETATION [place] STATUS REFERENCE RANGE Ampicillin S <=4 F Susceptible <=8 , Intermediate >8 , Resistant >16 Ampicillin/Sulbact S 4 F Aztreonam S <=2 F Susceptible <=4 , Intermediate >4 , Resistant >=16 Cefazolin S <=1 F Susceptible 0-16 , Intermediate <0 or >16 , Resistant >16 Cefepime S <=1 F Susceptible <=2 , Susceptible-Dose Dependent >2 , Resistant >=16 Ceftriaxone S <=1 F Susceptible <=1 , Intermediate >1 , Resistant >=4 Ciprofloxacin S <=0.25 F Susceptible <=0.25 , Intermediate >.25 , Resistant >.5 Ertapenem S <=0.25 F Susceptible <=0.5 , Intermediate >.5 , Resistant >1 Gentamicin S <=2 F Susceptible <=4 , Intermediate >4 , Resistant >8 Meropenem S <=0.5 F Susceptible <=1 , Intermediate >1 , Resistant >2 Nitrofurantoin S <=16 F Susceptible <=32 , Intermediate >32 , Resistant >64 Piperacillin/Tazobac S <=2 F Trimeth sulfameth R >2 F Abnormal [facility] Comment on above: Performed By: #### 6 30-4 #### [facility] CLIA [id number] [address] [place] [address] OF [facility] CNOVon 06-17-2021 CNOV Office Visit (AKURFL ) -- TROY CARLSON ([id number]) 1965 M Date Time Provider Department 06/17/21 10:30 AM FOSTER OGDEN During your visit today, we recorded the following information about you: Blood pressure Weight Height 124/80 74.8 kg 1.689 m Foster Ogden MD 06/17/2021 10:49 AM Signed ESTABLISHED PATIENT VISIT HPI Troy Carlson is a 56 year old male who presents with BPH and several failed voiding trials, despite medication. Currently has a Birch catheter Cystoscopy today reviewed with patient, demonstrated by lobar occlusion with moderate intravesical extension Patient Entered Questionnaires PROMIS Global Health PROMIS Global Health Scale 07/23/2017 07/13/2019 11/22/2020 Physical Health Percentile 22 % 22 % 7 % Mental Health Percentile 5 % 5 % 13 % Percentiles provide an indication of how the patient's score ranks in relation to the general population. Higher percentile rankings indicate better function/quality of life. 50th percentile is the average of the general population and indicates half of respondents had a worse score. Creatinine Date Value Ref Range Status 03/29/2021 1.17 0.73 - 1.22 mg/dL Final PSA (ng/mL) Date Value 07/23/2017 0.29 04/22/2013 0.18 PSA Screening (ng/mL) Date Value 03/29/2021 0.62 02/17/2019 0.33 07/03/2014 0.08 Color (no units) Date Value 02/26/2021 Yellow Clarity (no units) Date Value 04/13/2017 Cloudy Glucose, Urine (mg/dL) Date Value 02/26/2021 Negative Bilirubin, Urine (no units) Date Value 02/26/2021 Negative Ketones, Urine (no units) Date Value 02/26/2021 Trace Specific [place], Ur (no units) Date Value 02/26/2021 <=1.005 Hemoglobin/Blood,Ur ( ) Date Value 02/26/2021 Negative pH, Urine (no units) Date Value 02/26/2021 6.5 Protein, Urine (no units) Date Value 02/26/2021 Negative Urobilinogen (E.U./dL) Date Value 02/26/2021 0.2 Nitrites (no units) Date Value 02/26/2021 Negative Leukest (no units) Date Value 02/26/2021 Negative 24HR Urine Studies: No results for input(s): LUPH, LUCAL, LUCIT, LUOXA, LUURIC, LUVOL, LSCAO, LSCAP, LSURIC, LUCL, AGA, LAURA, LUUREA, LUAM, LUMAG, LUPHOS, LUPCR, LUCREA, LUCRKBW, LUCAKBW, LUCACREA, LUCREACL, LWK, LUSUL in the last 46410 hours. REVIEW OF SYSTEMS Review of Systems Review of system, history including past medical history, surgical history, family history and social history reviewed and confirmed by me. 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 Anurag Doyle:noted one seizure after transplant. No seizures since, off keppra.Initial EEG showed small amplitudes polyspikes overriding periodic patterns), later EEG became normal, brain MRI unremarkable. He has been off Keppra since March 2016. No further seizure. - Osteoporosis - Panic attacks - Prostatitis 11/2011 - Psoriasis - Splenomegaly - Thrombocytopenia (HCC) Pancytopenia resolved after liver transplant - Unspecified hypothyroidism Hypothyroidism PAST SURGICAL HISTORY Procedure Laterality Date - COLONOSCOP W/ OR W/O [facility] SPEC 10/14/13 Colonoscopy - EGD W/O OR W/BRUSH/WASH 10/14/13 EGD - EGD W/O OR W/BRUSH/WASH 01/31/2019 EGD - INGUINAL HERNIA REPAIR HX 10/15/2016 - LIVER BIOPSY - NERVE ALTERATION 83? LEFT ELBOW ABOUT - PAST SURGICAL HISTORY OF 83? Deviated septum - PAST SURGICAL HISTORY OF Liver transplant : 09/2015 - PAST SURGICAL HISTORY OF PFO repair 2015 - PICC LINE INSERT/CONSULT 11/01/2015 - REMOVAL OF TONSILS,<12 Y/O Tonsillectomy FAMILY HISTORY Problem Relation Age of Onset - Arthritis Brother Back issues - COPD Mother - Alzheimer's Disease Father - Diabetes Maternal Grandmother - Diabetes Paternal Grandfather - Amblyopia Daughter SOCIAL HISTORY Social History Tobacco Use - Smoking status: Former Smoker Packs/day: 1.00 Years: 23.00 Pack years: 23.00 Types: Cigarettes Start date: 09/14/1979 Quit date: 08/01/2013 Years since quittin.8 - Smokeless tobacco: Never Used Vaping Use - Vaping Use: Never used Substance Use Topics - Alcohol use: No Alcohol/week: 0.0 standard drinks Comment: Quit 10/2011 - Drug use: No Types: IV, Marijuana, Cocaine Comment: HISTORY OF IV DRUG CLEAN OF ALL RECREATIONAL DRUG USE MEDICATIONS: pantoprazole DR (PROTONIX) 40 mg tablet Take 1 tablet by mouth daily before breakfast. Take on empty stomach, 1/2 hr before meal. simvastatin (ZOCOR) 40 mg tablet Take 1 tablet by mouth da (more content not included)... [facility] [place] Telephone (AKURFL) -- TROY CARLSON ([id number]) 1965 M Date Time Provider Department 05/01/21 LISETTE GARCIA During your visit today, we recorded the following information about you: Nadiya Mistry 05/01/2021 2:37 PM Signed Patient has cysto coming up with . He still has birch catheter in but would like it removed at PCP. He was wondering if you could sign order that okay for PCP to remove. If not, he would like an appointment for voiding trial. ARRON Gillespie 05/02/2021 9:21 AM Signed Called and left vm to call office back. Patient okay to have birch removed at pcp office. Nadiya Mistry RN Allergies As of Date: 05/01/2021 Noted Allergy Reaction LATEX 04/22/2013 2 - Rash VANCOMYCIN (BULK) 03/26/2016 2 - Rash 9 - Itching VICODIN (HYDROCODONE-ACETAMINOPHE* 08/20/2009 9 - Itching Date Reviewed: 04/09/2021 Reviewed by: Kemi Mendoza MA - Fully Assessed Reason for Visit: Orders [681] Primary Visit Diagnosis:Urine retention [R33.9] Order(s):BIRCH - DISCONTINUE [[id number]] Order #: [id number] Prescriptions as of 05/02/2021 - pantoprazole DR (PROTONIX) 40 mg tablet Take 1 tablet by mouth daily before breakfast. Take on empty stomach, 1/2 hr before meal. - simvastatin (ZOCOR) 40 mg tablet Take 1 tablet by mouth daily at bedtime. - sertraline (ZOLOFT) 100 mg tablet Take 2 tablets at bedtime. - buPROPion XL (WELLBUTRIN XL) 300 mg 24 hr tablet Take 1 tablet by mouth once daily. - metoprolol succinate ER (TOPROL XL) 25 mg 24 hr tablet Take 1 tablet by mouth once daily. - tamsulosin (FLOMAX) 0.4 mg Take 1 capsule by mouth twice daily. - alendronate (FOSAMAX) 70 mg tablet Take 1 tablet by mouth one time a week. Take with a full glass of water, on an empty stomach; do NOT lie down for 30minutes. - sulfamethoxazole-trimethop rim (BACTRIM DS,SEPTRA DS) 800-160 mg per tablet 1 tablet every Thursday,Thursday,Thursday. - lisinopril (ZESTRIL, PRINIVIL) 5 mg tablet Take 1 tablet by mouth once daily. - cholecalciferol (VITAMIN D-3) 5,000 unit tab Take 1 tablet by mouth once daily. - Garlic 1,000 mg cap Take 1 capsule by mouth once daily. - cyclobenzaprine (FLEXERIL) 10 mg tablet Take 1 tablet by mouth three times daily as needed for muscle spasm. - tacrolimus (PROGRAF) 1 mg capsule Take 1 capsule by mouth twice daily. Take in addition to one 0.5mg capsule for total dose of 1.5mg twice daily - tacrolimus (PROGRAF) 0.5 mg capsule Take 1 capsule by mouth twice daily. (take with 1mg capsule to total 1.5mg PO BID) - ursodiol (ACTIGALL) 300 mg capsule Take 1 capsule by mouth three times daily. - potassium chloride (K-TAB) 10 mEq tablet Take 10 mEq by mouth twice daily. - nortriptyline (PAMELOR) 10 mg capsule Take 1 capsule by mouth daily at bedtime. - mupirocin (BACTROBAN) 2 % ointment Apply 1 application to affected area three times daily. Location: abdomen - Transparent Dressings (TEGADERM FRAME STYLE) 6 X 8 bndg Apply 1 application to affected area as needed. Meds Comments as of 07/15/2018: Pt reports ALL Medications are accurate 10/24/2016 70 07/15/18 The medications are managed by this patient by: CAREGIVER Elissa Smith, PharmD Problem List As Of Date 05/01/2021 Noted Resolved Thrombocytopenia [D69.6] 08/20/2009 04/22/2017 Hepatitis C [B19.20] 08/20/2009 11/03/2014 Splenomegaly [R16.1] 08/20/2009 Bilateral inguinal hernia (BIH) [K40.20] 12/26/2011 Epididymitis [N45.1] 11/24/2013 04/22/2017 Testalgia [N50.819] 11/24/2013 04/22/2017 Cirrhosis [K74.60] 04/22/2017 Syncope [R55] 01/03/2014 04/22/2017 Pancytopenia (HCC) [D61.818] 03/11/2014 03/12/2014 Hypoxemia [R09.02] 03/11/2014 10/15/2015 COPD (chronic obstructive pulmonary disease) (H*03/11/2014 03/12/2014 Coagulopathy (HCC) [D68.9] 03/11/2014 04/22/2017 HCV (hepatitis C virus) [B19.20] 03/11/2014 Hepatopulmonary syndrome (HCC) [K76.81] 03/12/2014 08/19/2018 Bicytopenia [D75.89] 03/12/2014 04/22/2017 Adjustment disorder with mixed anxiety and depr*05/23/2014 PFO (patent foramen ovale) [Q21.1] 07/11/2014 Caries [K02.9] 08/15/2014 Retained dental root [K08.3] 08/15/2014 SUMMARY 08/31/2014 07/24/2016 Fever and chills [R50.9] 08/31/2014 04/22/2017 Fever, low grade [R50.9] 11/03/2014 04/22/2017 UTI (lower urinary tract infection) [N39.0] 04/08/2015 04/22/2017 Hepatic encephalopathy (HCC) [K72.90] 04/08/2015 04/22/2017 Sarcoidosis (HCC) [D86.9] 04/17/2015 Chronic hepatitis C without hepatic coma (HCC) *05/17/2015 Infection of other external stoma of urinary tr*05/17/2015 04/22/2017 SUMMARY 06/14/2015 09/12/2015 SOB (shortness of breath) [R06.02] 06/14/2015 04/22/2017 Hepatic cirrhosis (HCC) [K74.60] 06/14/2015 04/22/2017 Chronic abdominal pain [R10.9, G89.29] 07/20/2015 Hyperammonemia (HCC) [E72.20] 07/20/2015 04/22/2017 Pain disorder with psychological fac (more content not included)... Normal [facility] CNPNon 04-15-2021 SEBASTIÁNN Telephone (UROLAE) -- TROY CARLSON ([id number]) 1965 M Date Time Provider Department 04/15/21 LISETTE GARCIA During your visit today, we recorded the following information about you: Lisette Garcia APRN.P[employer]ER BAG [employer]KER 04/15/2021 4:38 PM Signed Please call patient, urine culture is negative for infection. Danelle Samaniego Cma 04/16/2021 8:21 AM Signed Left message for patient to return call to office. Danelle Samaniego Cma Allergies As of Date: 04/15/2021 Noted Allergy Reaction LATEX 04/22/2013 2 - Rash VANCOMYCIN (BULK) 03/26/2016 2 - Rash 9 - Itching VICODIN (HYDROCODONE-ACETAMINOPHE* 08/20/2009 9 - Itching Date Reviewed: 04/09/2021 Reviewed by: Kemi Mendoza MA - Fully Assessed Reason for Visit: Results [95] Prescriptions as of 04/16/2021 - methylPREDNISolone (MEDROL, ABEL,) 4 mg Dose-Pack Follow dosing instructions, take with food. - cyclobenzaprine (FLEXERIL) 10 mg tablet Take 1 tablet by mouth three times daily as needed for muscle spasm. - pantoprazole DR (PROTONIX) 40 mg tablet Take 1 tablet by mouth daily before breakfast. Take on empty stomach, 1/2 hr before meal. - simvastatin (ZOCOR) 40 mg tablet Take 1 tablet by mouth daily at bedtime. - sertraline (ZOLOFT) 100 mg tablet Take 2 tablets at bedtime. - buPROPion XL (WELLBUTRIN XL) 300 mg 24 hr tablet Take 1 tablet by mouth once daily. - metoprolol succinate ER (TOPROL XL) 25 mg 24 hr tablet Take 1 tablet by mouth once daily. - tamsulosin (FLOMAX) 0.4 mg Take 1 capsule by mouth twice daily. - alendronate (FOSAMAX) 70 mg tablet Take 1 tablet by mouth one time a week. Take with a full glass of water, on an empty stomach; do NOT lie down for 30minutes. - tacrolimus (PROGRAF) 1 mg capsule Take 1 capsule by mouth twice daily. Take in addition to one 0.5mg capsule for total dose of 1.5mg twice daily - tacrolimus (PROGRAF) 0.5 mg capsule Take 1 capsule by mouth twice daily. (take with 1mg capsule to total 1.5mg PO BID) - ursodiol (ACTIGALL) 300 mg capsule Take 1 capsule by mouth three times daily. - sulfamethoxazole-trimethop rim (BACTRIM DS,SEPTRA DS) 800-160 mg per tablet 1 tablet every Thursday,Thursday,Thursday. - lisinopril (ZESTRIL, PRINIVIL) 5 mg tablet Take 1 tablet by mouth once daily. - potassium chloride (K-TAB) 10 mEq tablet Take 10 mEq by mouth twice daily. - nortriptyline (PAMELOR) 10 mg capsule Take 1 capsule by mouth daily at bedtime. - mupirocin (BACTROBAN) 2 % ointment Apply 1 application to affected area three times daily. Location: abdomen - Transparent Dressings (TEGADERM FRAME STYLE) 6 X 8 bndg Apply 1 application to affected area as needed. - cholecalciferol (VITAMIN D-3) 5,000 unit tab Take 5,000 Units by mouth once daily. - Garlic 1,000 mg cap Take 1 capsule by mouth once daily. Meds Comments as of 07/15/2018: Pt reports ALL Medications are accurate 10/24/2016 70 07/15/18 The medications are managed by this patient by: CAREGIVER Elissa Smith, PharmD Problem List As Of Date 04/15/2021 Noted Resolved Thrombocytopenia [D69.6] 08/20/2009 04/22/2017 Hepatitis C [B19.20] 08/20/2009 11/03/2014 Splenomegaly [R16.1] 08/20/2009 Bilateral inguinal hernia (BIH) [K40.20] 12/26/2011 Epididymitis [N45.1] 11/24/2013 04/22/2017 Testalgia [N50.819] 11/24/2013 04/22/2017 Cirrhosis [K74.60] 04/22/2017 Syncope [R55] 01/03/2014 04/22/2017 Pancytopenia (HCC) [D61.818] 03/11/2014 03/12/2014 Hypoxemia [R09.02] 03/11/2014 10/15/2015 COPD (chronic obstructive pulmonary disease) (H*03/11/2014 03/12/2014 Coagulopathy (HCC) [D68.9] 03/11/2014 04/22/2017 HCV (hepatitis C virus) [B19.20] 03/11/2014 Hepatopulmonary syndrome (HCC) [K76.81] 03/12/2014 08/19/2018 Bicytopenia [D75.89] 03/12/2014 04/22/2017 Adjustment disorder with mixed anxiety and depr*05/23/2014 PFO (patent foramen ovale) [Q21.1] 07/11/2014 Caries [K02.9] 08/15/2014 Retained dental root [K08.3] 08/15/2014 SUMMARY 08/31/2014 07/24/2016 Fever and chills [R50.9] 08/31/2014 04/22/2017 Fever, low grade [R50.9] 11/03/2014 04/22/2017 UTI (lower urinary tract infection) [N39.0] 04/08/2015 04/22/2017 Hepatic encephalopathy (HCC) [K72.90] 04/08/2015 04/22/2017 Sarcoidosis (HCC) [D86.9] 04/17/2015 Chronic hepatitis C without hepatic coma (HCC) *05/17/2015 Infection of other external stoma of urinary tr*05/17/2015 04/22/2017 SUMMARY 06/14/2015 09/12/2015 SOB (shortness of breath) [R06.02] 06/14/2015 04/22/2017 Hepatic cirrhosis (HCC) [K74.60] 06/14/2015 04/22/2017 Chronic abdominal pain [R10.9, G89.29] 07/20/2015 Hyperammonemia (HCC) [E72.20] 07/20/2015 04/22/2017 Pain disorder with psychological factors [F45.4*08/06/2015 Liver transplant candidate [Z76.82] 08/17/2015 04/22/2017 Abdominal distension [R14.0] 09/12/2015 04/22/2017 Hypothyroidism [E03.9] 09/12/2015 New onset seizure (HCC) [R56.9] 10/05/2015 11/22/2019 ARDS (adult (more content not included)... Normal [facility] Bacteria Ur Culton 1 Bacteria identified Cx Nom (U) ORGANISM ID: 1 10,000 -<50,000 CFU/ml Lindsey parapsilosis ORGANISM ID: 2 <1,000 CFU/ml Gram positive cocci Insignificant colony count. No further workup. Normal [facility] Comment on above: Performed By: #### 6 30-4 ####[facility] [id number] [place] [address] CNOVon 04-09-2021 CNOV Office Visit (AKURFL ) -- TROY CARLSON ([id number]) 1965 M Date Time Provider Department 04/09/21 10:00 AM LSIETTE GARCIA During your visit today, we recorded the following information about you: Weight Height 66.2 kg 1.676 m Lisette Garcia APRN.CNP 04/09/2021 1:01 PM Signed NEW PATIENT OFFICE VISIT HISTORY OF PRESENT ILLNESS Troy Carlson is a 56 year old male with h/o retention and UTI who presents as a new patient for f/u. Patient taking flomax BID he has had birch in for 3 weeks after evaluation at [facility] for retention. CT showed a enlarged prostate otherwise negative. Patient reports getting UTI and having birch for retention in the past. Records scanned in [facility]. He is a s/p kidney transplant patient - is taking bactrim 3 times weekly for prophylaxis per patient. He denies fever or chills. He reports seeing a little blood in his birch bag the other day. Today his urine is clear. Discussed voiding trial patient would rather keep indwelling birch for now. Will change his indwelling birch catheter today with 16F coude without difficulty. Specimen obtained will send for culture. Will order cystoscopy Last PSA 03/29/21 0.62 LAB RESULTS Creatinine Date Value Ref Range Status 03/29/2021 1.17 0.73 - 1.22 mg/dL Final PSA (ng/mL) Date Value 07/23/2017 0.29 04/22/2013 0.18 PSA Screening (ng/mL) Date Value 03/29/2021 0.62 02/17/2019 0.33 07/03/2014 0.08 Color (no units) Date Value 02/26/2021 Yellow Clarity (no units) Date Value 04/13/2017 Cloudy Glucose, Urine (mg/dL) Date Value 02/26/2021 Negative Bilirubin, Urine (no units) Date Value 02/26/2021 Negative Ketones, Urine (no units) Date Value 02/26/2021 Trace Specific [place], Ur (no units) Date Value 02/26/2021 <=1.005 Hemoglobin/Blood,Ur ( ) Date Value 02/26/2021 Negative pH, Urine (no units) Date Value 02/26/2021 6.5 Protein, Urine (no units) Date Value 02/26/2021 Negative Urobilinogen (E.U./dL) Date Value 02/26/2021 0.2 Nitrites (no units) Date Value 02/26/2021 Negative Leukest (no units) Date Value 02/26/2021 Negative MEDICATIONS: pantoprazole DR (PROTONIX) 40 mg tablet Take 1 tablet by mouth daily before breakfast. Take on empty stomach, 1/2 hr before meal. simvastatin (ZOCOR) 40 mg tablet Take 1 tablet by mouth daily at bedtime. sertraline (ZOLOFT) 100 mg tablet Take 2 tablets at bedtime. buPROPion XL (WELLBUTRIN XL) 300 mg 24 hr tablet Take 1 tablet by mouth once daily. metoprolol succinate ER (TOPROL XL) 25 mg 24 hr tablet Take 1 tablet by mouth once daily. tamsulosin (FLOMAX) 0.4 mg Take 1 capsule by mouth twice daily. alendronate (FOSAMAX) 70 mg tablet Take 1 tablet by mouth one time a week. Take with a full glass of water, on an empty stomach; do NOT lie down for 30minutes. tacrolimus (PROGRAF) 1 mg capsule Take 1 capsule by mouth twice daily. Take in addition to one 0.5mg capsule for total dose of 1.5mg twice daily tacrolimus (PROGRAF) 0.5 mg capsule Take 1 capsule by mouth twice daily. (take with 1mg capsule to total 1.5mg PO BID) ursodiol (ACTIGALL) 300 mg capsule Take 1 capsule by mouth three times daily. sulfamethoxazole-trimethop rim (BACTRIM DS,SEPTRA DS) 800-160 mg per tablet 1 tablet every Thursday,Thursday,Thursday. lisinopril (ZESTRIL, PRINIVIL) 5 mg tablet Take 1 tablet by mouth once daily. potassium chloride (K-TAB) 10 mEq tablet Take 10 mEq by mouth twice daily. nortriptyline (PAMELOR) 10 mg capsule Take 1 capsule by mouth daily at bedtime. mupirocin (BACTROBAN) 2 % ointment Apply 1 application to affected area three times daily. Location: abdomen Transparent Dressings (TEGADERM FRAME STYLE) 6 X 8 bndg Apply 1 application to affected area as needed. cholecalciferol (VITAMIN D-3) 5,000 unit tab Take 5,000 Units by mouth once daily. Garlic 1,000 mg cap Take 1 capsule by mouth once daily. REVIEW OF SYSTEMS CONSTITUTIONAL: Patient reports no recent fever or weight loss CARDIOVASCULAR: No chest pain, palpitations or ankle edema. 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 Anurag Doyle:noted one seizure after transplant. No seizures since, off keppra.Initial EEG showed small amplitudes polyspikes overriding periodic patterns), later EEG became normal, brain MRI unremarkable. He has been off Keppra since March 2016. No further seizure. - Osteoporos (more content not included)... Normal [facility] ALLIED HEALTHon 02-26-2021 ALLIED HEALTH HNO ID: [id number] Author: RT Lillian(R) Service: Radiology Author Type: Crop Quantitative Geneticist Type: Allied Health Filed: 02/26/2021 10:04 AM Note Text: Radiology Service Progress Note PATIENT NAME: Troy Carlson DATE OF SERVICE: February 26, 2021 TIME: 10:04 AM PATIENT IDENTITY VERIFICATION COMPLETED USING TWO (2) IDENTIFIERS: Name and Date of confirmed by patient verbally. FALL SCREENING: Has the patient had 2 falls in the last year or 1 fall with injury or currently using an Ambulatory Assistive Device (Walker, Cane, Wheelchair, Crutches, etc.)? Emergency Room Patient: Screened in ED PATIENT GENDER DATA: Male PATIENT RELEVANT IMPLANT DATA REVIEWED: Not Applicable RADIOLOGY DEPARTMENT: General X-ray: Exam(s) Completed: Chest X-Ray PERIPHERAL IV DATA: Not applicable SIGNED BY: RT Lillian(R) February 26, 2021 10:04 AM [facility] ALLIED HEALTH HNO ID: [id number] Author: NANCY Xiong Service: Radiology Author Type: Clinical Crop Quantitative Geneticist Type: Allied Health Filed: 02/26/2021 9:40 AM Note Text: Radiology Service Progress Note DATE OF SERVICE: February 26, 2021 TIME: 9:39 AM PATIENT IDENTITY VERIFICATION COMPLETED USING TWO (2) STANDARD IDENTIFIERS: Name and Date of confirmed by patient verbally and Name and Date of confirmed by identification band. FALL SCREENING: Has the patient had 2 falls in the last year or 1 fall with injury or currently using an Ambulatory Assistive Device (Walker, Cane, Wheelchair, Crutches, etc.)? Emergency Room Patient: Screened in ED PATIENT GENDER DATA: Male PATIENT RELEVANT IMPLANT DATA REVIEWED: Not Applicable ALLERGIES: Reviewed and unchanged CONTRAST ALLERGY: NO. EXAM: CT -CONTRAST INDUCED NEPHROPATHY RISK FACTORS: Not applicable CREATININE: Creatinine Date Value Ref Range Status 02/26/2021 1.29 (H) 0.73 - 1.22 mg/dL Final 01/16/2021 1.12 0.73 - 1.22 mg/dL Final 10/08/2020 1.29 (H) 0.73 - 1.22 mg/dL Final eGFR-All Other Races Date Value Ref Range Status 02/26/2021 57 . Final Comment: eGFR (Estimated GFR) Units of measure: mL/min/1.73 meters squared eGFR is derived from the reexpressed MDRD Study equation using the following parameters: serum creatinine, age, gender and race. The creatinine assay has been calibrated to be traceable to IDMS. An eGFR <60 mL/min/1.73m2 for >3 months is consistent with chronic kidney disease. Refer to KDOQI guidelines for clinical interpretation. In patients with unstable renal function, e.g. those with acute kidney injury, the eGFR may not accurately reflect actual GFR. eGFR- Date Value Ref Range Status 02/26/2021 >60 Final P.O.C.T. RESULTS: POC done: Yes, See Lab Tab February 26, 2021 TREATMENT: N/A PERIPHERAL IV DATA: Inpatient - refer to LDA documentation RADIOLOGY DEPARTMENT: CT; Exam(s) Completed: Abdomen/Pelvis SIGNATURE: NANCY Xiong PATIENT NAME: Troy Carlson DATE: February 26, 2021 TIME: 9:39 AM Normal [facility] Ammoniaon 02-26-2021 Ammonia Unable to assay due to interference from hemolysis. Suggest reorder as clinically indicated. Normal 16-60 [facility] Comment on above: Performed By: #### N H3 #### [facility] [address] [facility] [phone] CBC and Differentialon 02-26 Abs Baso <0.03 Normal <0.11 [facility] Comment on above: Performed By: #### C MP, CBCDIF, CK, LIPA, MG1 #### [facility] [address] Abs [place] 0.42 k/uL Normal <0.87 [facility] Comment on above: Performed By: #### C MP, CBCDIF, CK, LIPA, MG1 #### [facility] [address] [place] [address] Abs Neut 3.74 k/uL Normal 1.45-7.50 [facility] Comment on above: Performed By: #### C MP, CBCDIF, CK, LIPA, MG1 #### [facility] [address] [place] [address] Absolute nRBC <0.01 Normal <0.01 [facility] Comment on above: Performed By: #### C MP, CBCDIF, CK, LIPA, MG1 #### [facility] [address] [place] [address] Basophils/100 WBC (Bld) 0.2 % Normal [facility] Comment on above: Performed By: #### C MP, CBCDIF, CK, LIPA, MG1 #### [facility] [address] [place] [address] DTYPE Auto Diff Normal [facility] Comment on above: Performed By: #### C MP, CBCDIF, CK, LIPA, MG1 #### [facility] [address] [place] [address] Eosinophils (Bld) [#/Vol] 0.11 10*3/uL Normal <0.46 [facility] Comment on above: Performed By: #### C MP, CBCDIF, CK, LIPA, MG1 #### [facility] [address] [place] [address] Eosinophils/100 WBC (Bld) 2.2 % Normal [facility] Comment on above: Performed By: #### C MP, CBCDIF, CK, LIPA, MG1 #### [facility] [address] [place] [address] Erythrocyte distribution width (RBC) [Ratio] 12.7 % Normal 11.5-15.0 [facility] Comment on above: Performed By: #### C MP, CBCDIF, CK, LIPA, MG1 #### [facility] [address] [place], [place] [phone] Hematocrit (Bld) [Volume fraction] 48.1 % Normal 39.0-51.0 [facility] Comment on above: Performed By: #### C MP, CBCDIF, CK, LIPA, MG1 #### [facility] [address] [place] [phone] Hemoglobin (Bld) [Mass/Vol] 17.2 g/dL High 13.0-17.0 [facility] Comment on above: Performed By: #### C MP, CBCDIF, CK, LIPA, MG1 #### [facility] [address] Lymphocytes (Bld) [#/Vol] 0.65 10*3/uL Low 1.00-4.00 [facility] Comment on above: Performed By: #### C MP, CBCDIF, CK, LIPA, MG1 #### [facility] [address] Lymphocytes/100 WBC (Bld) 13.1 % Normal [facility] Comment on above: Performed By: #### C MP, CBCDIF, CK, LIPA, MG1 #### [facility] [address] MCH 32.3 pG Normal 26.0-34.0 [facility] Comment on above: Performed By: #### C MP, CBCDIF, CK, LIPA, MG1 #### [facility] [address] [place], [place] [phone] MCHC (RBC) [Mass/Vol] 35.8 g/dL Normal 30.5-36.0 [facility] Comment on above: Performed By: #### C MP, CBCDIF, CK, LIPA, MG1 #### [facility] [address] MCV (RBC) [Entitic vol] 90.2 fL Normal 80.0-100.0 [facility] Comment on above: Performed By: #### C MP, CBCDIF, CK, LIPA, MG1 #### [facility] [address] [place] [phone] Monocytes/100 WBC (Bld) 8.5 % Normal [facility] Comment on above: Performed By: #### C MP, CBCDIF, CK, LIPA, MG1 #### [facility] [address] [place], [place] [phone] Neutrophils/100 WBC (Bld) 76.0 % Normal [facility] Comment on above: Performed By: #### C MP, CBCDIF, CK, LIPA, MG1 #### [facility] [address] [place] [address] NRBCs 0.0 /100 WBC Normal 0 [facility] Comment on above: Performed By: #### C MP, CBCDIF, CK, LIPA, MG1 #### [facility] [address] [place] [address] Platelet mean volume (Bld) [Entitic vol] 11.6 fL Normal 9.0-12.7 [facility] Comment on above: Performed By: #### C MP, CBCDIF, CK, LIPA, MG1 #### [facility] [address] [place] [address] Platelets (Bld) [#/Vol] 110 10*3/uL Low 150-400 [facility] Comment on above: Result Comment: No c lot detected. Performed By: #### C MP, CBCDIF, CK, LIPA, MG1 #### [facility] [address] [place] [address] RBC (Bld) [#/Vol] 5.33 10*6/uL Normal 4.20-6.00 [facility] Comment on above: Performed By: #### C MP, CBCDIF, CK, LIPA, MG1 #### [facility] [address] [place] [address] WBC (Bld) [#/Vol] 4.95 10*3/uL Normal 3.70-11.00 [facility] Comment on above: Performed By: #### C MP, CBCDIF, CK, LIPA, MG1 #### [facility] [address] [place], [place] [address] 02-26-2021 CK [Catalytic activity/Vol] 77 U/L Normal 51-298 [facility] Comment on above: Performed By: #### C MP, CBCDIF, CK, LIPA, MG1 #### [facility] [address] [facility] [phone] CT ABD/PEL W IVCONon 15-[address] ABD/PEL W IVCON * * *Final Report* * * DATE OF EXAM: Feb 26 2021 9:41AM [facility] 0530 - CT ABD/PEL W IVCON / PROCEDURE REASON: Abdominal pain, acute, nonlocalized * * * * Physician Interpretation * * * * EXAMINATION: CT ABDOMEN AND PELVIS WITH IV CONTRAST CLINICAL HISTORY: Abdominal pain, acute, nonlocalized increased weakness and weight loss,ABD PAIN, HX OF LIVER TRANSPLANT TECHNIQUE: CT of the abdomen and pelvis was performed using standard technique, scanning from just above the dome of the diaphragm to the symphysis pubis. MQ: CTAP_3 Contrast: IV: 100 ml of Omnipaque 300 CT Radiation dose: Integrated Dose-length product (DLP) for this visit = 341.42 mGy*cm. CT Dose Reduction Employed: Automated exposure control(AEC) and iterative recon COMPARISON: 10/12/2018 RESULT: Liver: No focal hepatic lesion is identified. Postsurgical changes of the liver compatible with history of transplant. Biliary: No bile duct dilation. Mild intrahepatic biliary dilatation appears similar to exam of 10/12/2018. The gallbladder surgically absent. Spleen: No mass. Splenomegaly. Pancreas: No mass or duct dilation. Adrenals: No mass. Kidneys: Symmetric enhancement. No hydronephrosis or renal calculus. Multiple bilateral hypodense lesions are too small to characterize. GI tract: No dilation or wall thickening. Normal appendix. Lymph nodes: No abdominal or pelvic lymphadenopathy. Mesentery/Peritoneum: No ascites. Retroperitoneum: No mass. Vasculature: The celiac axis and SMA are patent. The portal vein and branches, splenic vein, SMV, and hepatic veins are patent. Arterial atherosclerotic disease without aneurysm. Pelvis: No mass, ascites or fluid collection. Bones/Soft Tissues: Remote LEFT posterior rib fracture. Lower thorax: No focal consolidation or pleural effusion. [employer] Field Service Technician (topogram) images: No additional findings. IMPRESSION: No acute intra-abdominal process is identified. Mild intrahepatic biliary dilatation appears similar to prior exam from 2019. Splenomegaly. Additional findings as described. Felt Puller: ALEXANDRO Transcribe Date/Time: Feb 26 2021 9:43A Dictated by : DARLING HOFFMAN MD This examination was interpreted and the report reviewed and electronically signed by: DARLING HOFFMAN MD on Feb 26 2021 9:55AM EST [id number] Normal [facility] Comp Metabolic Panelon 02-26 Albumin [Mass/Vol] 4.6 g/dL Normal 3.9-4.9 [facility] Comment on above: Performed By: #### C MP, CBCDIF, CK, LIPA, MG1 #### [facility] [address] [place], [place] [phone] ALP [Catalytic activity/Vol] 140 U/L High 38-113 [facility] Comment on above: Performed By: #### C MP, CBCDIF, CK, LIPA, MG1 #### [facility] [address] [place], [place] [phone] ALT [Catalytic activity/Vol] 17 U/L Normal 10-54 [facility] Comment on above: Performed By: #### C MP, CBCDIF, CK, LIPA, MG1 #### [facility] [address] [place], [place] [phone] Anion gap [Moles/Vol] 12 mmol/L Normal 9-18 [facility] Comment on above: Performed By: #### C MP, CBCDIF, CK, LIPA, MG1 #### [facility] [address] [place], [place] [phone] AST [Catalytic activity/Vol] 21 U/L Normal 14-40 [facility] Comment on above: Performed By: #### C MP, CBCDIF, CK, LIPA, MG1 #### [facility] [address] [place] [address] Bilirubin [Mass/Vol] 0.9 mg/dL Normal 0.2-1.3 [facility] Comment on above: Performed By: #### C MP, CBCDIF, CK, LIPA, MG1 #### [facility] [address] [place] [address] Calcium [Mass/Vol] 9.4 mg/dL Normal 8.5-10.2 [facility] Comment on above: Performed By: #### C MP, CBCDIF, CK, LIPA, MG1 #### [facility] [address] [place] [phone] Chloride [Moles/Vol] 102 mmol/L Normal 97-105 [facility] Comment on above: Performed By: #### C MP, CBCDIF, CK, LIPA, MG1 #### [facility] [address] [place] [phone] CO2 [Moles/Vol] 24 mmol/L Normal 22-30 [facility] Comment on above: Performed By: #### C MP, CBCDIF, CK, LIPA, MG1 #### [facility] [address] [place] [phone] Creatinine [Mass/Vol] 1.29 mg/dL High 0.73-1.22 [facility] Comment on above: Performed By: #### C MP, CBCDIF, CK, LIPA, MG1 #### [facility] [address] [place], [place] [phone] eGFR- Amer. >60 Normal [facility] Comment on above: Performed By: #### C MP, CBCDIF, CK, LIPA, MG1 #### [facility] [address] [place], [place] [phone] eGFR-All Other Races 57 . Normal [facility] Comment on above: Result Comment: eGFR (Estimated GFR) Units of measure: mL/min/1.73 meters squared eGFR is derived from the reexpressed MDRD Study equation using the following parameters: serum creatinine, age, gender and race. The creatinine assay has been calibrated to be traceable to IDMS. An eGFR <60 mL/min/1.73m2 for >3 months is consistent with chronic kidney disease. Refer to KDOQI guidelines for clinical interpretation. In patients with unstable renal function, e.g. those with acute kidney injury, the eGFR may not accurately reflect actual GFR. Performed By: #### C MP, CBCDIF, CK, LIPA, MG1 #### [facility] [address] [place] [phone] Glucose [Mass/Vol] 94 mg/dL Normal 74-99 [facility] Comment on above: Result Comment: The [place] Diabetes [employer] (ADA) provides guidance for cutoff values for fasting glucose and random glucose. The ADA defines fasting as no caloric intake for at least 8 hours. Fasting plasma glucose results between 100 to 125 mg/dL indicate increased risk for diabetes (prediabetes). Fasting plasma glucose results greater than or equal to 126 mg/dL meet the criteria for diagnosis of diabetes. In the absence of unequivocal hyperglycemia, results should be confirmed by repeat testing. In a patient with classic symptoms of hyperglycemia or hyperglycemic crisis, random plasma glucose results greater than or equal to 200 mg/dL meet the criteria for diagnosis of diabetes. Reference: Standards of Medical Care in Diabetes 2016, [place] [employer]. Diabetes Care. 2016.39(Suppl 1). Performed By: #### C MP, CBCDIF, CK, LIPA, MG1 #### [facility] [address] [place], [place] [phone] Potassium [Moles/Vol] 3.7 mmol/L Normal 3.7-5.1 [facility] Comment on above: Performed By: #### C MP, CBCDIF, CK, LIPA, MG1 #### [facility] [address] [place], [place] [phone] Protein [Mass/Vol] 7.4 g/dL Normal 6.3-8.0 [facility] Comment on above: Performed By: #### C MP, CBCDIF, CK, LIPA, MG1 #### [facility] [address] [place], [place] [phone] Sodium [Moles/Vol] 138 mmol/L Normal 136-144 [facility] Comment on above: Performed By: #### C MP, CBCDIF, CK, LIPA, MG1 #### [facility] [address] [place], [place] [phone] Urea nitrogen [Mass/Vol] 18 mg/dL Normal 9-24 [facility] Comment on above: Performed By: #### C MP, CBCDIF, CK, LIPA, MG1 #### [facility] [address] [place], [place] [phone] ED NOTEon 02-26-2021 ED NOTE HNO ID: [id number] Author: Farrah Loco RN Service: ? Author Type: Registered Nurse Type: ED Notes Filed: 02/26/2021 8:20 AM Note Text: Pt to ED with increased weakness and weight loss. Pt states this has all been getting worse over the last 3 months. Pt states he has lost 97 pounds in 3 months. Pt reports nausea and diarrhea and intermittent abd pain. Pt also reports intermittent chest pain and SOB on exertion. Normal [facility] ED PROV NOTEon 02-26-2021 ED PROV NOTE HNO ID: [id number] Author: Cely White MD Service: Emergency Medicine Author Type: Physician Type: ED Provider Notes Filed: 02/26/2021 12:28 PM Note Text: ED Provider Note Patient Name: Troy Carlson SERVICE DATE: 02/26/21 History Patient presents with: Weakness Weight Loss Patient with history of liver transplant presents with weight loss, poor appetite, nausea, vomiting and abdominal discomfort. Patient has multiple complaints but states he has lost 97 pounds in the last 3 months. He has intermittent chest pain, shortness of breath on exertion, and watery diarrhea. He has not been vaccinated for Covid. He is not concern for exposure to HIV. Patient states he is passing gas but has no food in him to produce a stool. PAST MEDICAL HISTORY Diagnosis Date - Cirrhosis (HCC) - ETOH abuse stopped etoh in 09/27 - H/O liver transplant (HCC) 10/03/2015 - Hepatitis C - Hepatopulmonary syndrome (HCC) used oxygen 3 to 6 liters and off O2 since liver transplant - Hypertension - Marijuana use, continuous 12/28/2020 - MRSA (methicillin resistant Staphylococcus aureus) 11/2011 - New onset seizure (HCC) 10/05/2015 06/11/[address] Anurag Doyle:noted one seizure after transplant. No seizures since, off keppra.Initial EEG showed small amplitudes polyspikes overriding periodic patterns), later EEG became normal, brain MRI unremarkable. He has been off Keppra since March 2016. No further seizure. - Osteoporosis - Panic attacks - Prostatitis 11/2011 - Psoriasis - Splenomegaly - Thrombocytopenia (HCC) Pancytopenia resolved after liver transplant - Unspecified hypothyroidism Hypothyroidism PAST SURGICAL HISTORY Procedure Laterality Date - COLONOSCOP W/ OR W/O BRSH SPEC 10/14/13 Colonoscopy - EGD W/O OR W/BRUSH/WASH 10/14/13 EGD - EGD W/O OR W/BRUSH/WASH 01/31/2019 EGD - INGUINAL HERNIA REPAIR HX 10/15/2016 - LIVER BIOPSY - NERVE ALTERATION 83? LEFT ELBOW ABOUT - PAST SURGICAL HISTORY OF 81? Deviated septum - PAST SURGICAL HISTORY OF Liver transplant : 09/2015 - PAST SURGICAL HISTORY OF PFO repair 2015 - PICC LINE INSERT/CONSULT 11/01/2015 - REMOVAL OF TONSILS,<12 Y/O Tonsillectomy FAMILY HISTORY Problem Relation Age of Onset - Arthritis Brother Back issues - COPD Mother - Alzheimer's Disease Father - Diabetes Maternal Grandmother - Diabetes Paternal Grandfather - Amblyopia Daughter Social History Tobacco Use - Smoking status: Former Smoker Packs/day: 1.00 Years: 23.00 Pack years: 23.00 Types: Cigarettes Start date: 09/14/1979 Quit date: 08/01/2013 Years since quittin.5 - Smokeless tobacco: Never Used Vaping Use - Vaping Use: Never used Substance and Sexual Activity - Alcohol use: No Alcohol/week: 0.0 standard drinks Comment: Quit 10/2011 - Drug use: No Types: IV, Marijuana, Cocaine Comment: HISTORY OF IV DRUG CLEAN OF ALL RECREATIONAL DRUG USE - Sexual activity: Yes Partners: Female ALLERGIES Allergen Reactions - Latex Rash - Vancomycin (Bulk) Rash, Itching - Vicodin [Hydrocodon* Itching Review of Systems Constitutional: Positive for activity change, appetite change, chills, fatigue and unexpected weight change. Negative for fever. All other systems negative except as documented in the HPI. HENT: Negative for congestion, rhinorrhea and sore throat. Eyes: Negative for pain and discharge. Respiratory: Positive for cough and shortness of breath. Cardiovascular: Positive for chest pain. Negative for palpitations. Gastrointestinal: Positive for abdominal pain, diarrhea, nausea and vomiting. Genitourinary: Negative for dysuria, frequency and urgency. Musculoskeletal: Positive for arthralgias, back pain, myalgias and neck pain. Skin: Negative for pallor and rash. Allergic/Immunologic: Positive for immunocompromised state. Neurological: Positive for dizziness, weakness and light-headedness. Negative for headaches. All other systems reviewed and are negative. Physical Exam BP 128/88 Pulse 75 Temp 98.2 Resp 24 Wt 131 lb 14.4 oz (59.8kg) SpO2 95% O2 Therapy: Room Air Physical Exam Vitals and nursing note reviewed. Exam conducted with a sliver chopper present. Constitutional: General: He is not in acute distress. Appearance: Normal appearance. He is not ill-appearing. Comments: Patient is very talkative HENT: Head: Normocephalic and atraumatic. Mouth/Throat: Mouth: Mucous membranes are moist. Comments: edentulous Eyes: General: No scleral icterus. Extraocular Movements: Extraocular movements intact. Conjunctiva/sclera: Conjunctivae normal. Comments: Pupils pinpoint Cardiovascular: Rate and Rhythm: Normal rate and regular rhythm. Pulses: Normal pulses. Heart sounds: Normal heart sounds. No murmur heard. Pulmonary: Effort: Pulmonary effort is normal. No respiratory distress. Breath sounds: No wheezing, rhonchi or rales. Abdominal: (more content not included)... Normal [facility] Expedited [id number] 02-27-20 21 SARS-CoV-2 (COVID-19) RNA RALF+probe Ql (Unsp spec) UPPER RESPIRATORY TRACT SWAB Normal [facility] Comment on above: Performed By: #### E XCOVD #### [facility] [address] [place], [place] [id number] SARS-CoV-2 (COVID-19) RNA RALF+probe Ql (Unsp spec) Negative for COVID19 (SARS CoV2) by RT-PCR or equivalent method. Normal Negative for COVID19 (SARS CoV2) by RT-PCR or equivalent method. [facility] Comment on above: Result Comment: This test has been authorized by FDA under an Emergency Use Authorization (EUA). Performed By: #### E XCOVD #### [facility] [address] [place], [place] [id number] Lipaseon 02-26-2021 Lipase [Catalytic activity/Vol] 36 U/L Normal 16-61 [facility] Comment on above: Performed By: #### C MP, CBCDIF, CK, LIPA, MG1 #### [facility] [address] [place], [place] [phone] Magnesiumon 02-26-2021 Magnesium [Mass/Vol] 1.6 mg/dL Low 1.7-2.3 [facility] Comment on above: Performed By: #### C MP, CBCDIF, CK, LIPA, MG1 #### [facility] [address] [place] [phone] TSHon 02-26-2021 TSH Qn 1.550 m[IU]/L Normal 0.270-4.200 [facility] Comment on above: Performed By: #### C MP, CBCDIF, CK, LIPA, MG1 #### [facility] [address] Urinalysison 02-26-2021 Bilirubin, Urine Negative Normal Negative [facility] Comment on above: Performed By: #### C MP, CBCDIF, CK, LIPA, MG1 #### [facility] [address] Clarity (U) Clear Normal Clear [facility] Comment on above: Performed By: #### C MP, CBCDIF, CK, LIPA, MG1 #### [facility] [address] [place] [address] Color (U) Yellow Normal Yellow [facility] Comment on above: Performed By: #### C MP, CBCDIF, CK, LIPA, MG1 #### [facility] [address] [place] [address] Glucose Ql (U) Negative Normal Negative [facility] Comment on above: Performed By: #### C MP, CBCDIF, CK, LIPA, MG1 #### [facility] [address] [place] [address] Hemoglobin/Blood,Ur Negative Normal Negative [facility] Comment on above: Performed By: #### C MP, CBCDIF, CK, LIPA, MG1 #### [facility] [address] [place] [address] Ketones Ql (U) Trace Critically abnormal Negative [facility] Comment on above: Performed By: #### C MP, CBCDIF, CK, LIPA, MG1 #### [facility] [address] [place] [address] Leukest Negative Normal Negative [facility] Comment on above: Performed By: #### C MP, CBCDIF, CK, LIPA, MG1 #### [facility] [address] Nitrite Ql (U) Negative Normal Negative [facility] Comment on above: Performed By: #### C MP, CBCDIF, CK, LIPA, MG1 #### [facility] [address] [place], [place] [phone] pH (U) 6.5 [pH] Normal 5.0-8.0 [facility] Comment on above: Performed By: #### C MP, CBCDIF, CK, LIPA, MG1 #### [facility] [address] [place] [phone] Protein, Urine Negative Normal Negative [facility] Comment on above: Performed By: #### C MP, CBCDIF, CK, LIPA, MG1 #### [facility] [address] [place] [phone] Specific [place], Ur <=1.005 Normal 1.005-1.030 [facility] Comment on above: Performed By: #### C MP, CBCDIF, CK, LIPA, MG1 #### [facility] [address] [place] [phone] Urobilinogen Qn (U) 0.2 {Kaela'U}/dL Normal 0.2-1.0 [facility] Comment on above: Performed By: #### C MP, CBCDIF, CK, LIPA, MG1 #### [facility] [address] [place] [phone] XR CHEST 2V FRONTAL/LATon XR CHEST 2V FRONTAL/LAT * * *Final Report* * * DATE OF EXAM: Feb 26 2021 10:03AM MDX [id number] - XR CHEST 2V FRONTAL/LAT / PROCEDURE REASON: Cough, new onset * * * * Physician Interpretation * * * * EXAMINATION: CHEST RADIOGRAPH (2 VIEW FRONTAL and LATERAL) CLINICAL HISTORY: Cough, new onset, Shortness of breath MQ: [id number]_6 EXAM DATE/TIME: 02/26/2021 10:03 AM COMPARISON: 07/09/2018 RESULT: Lines, tubes, and devices: None. Lungs and pleura: No focal consolidation, pleural effusion or pneumothorax. Cardiomediastinal silhouette: Within normal limits. Bones and soft tissues: Calcified density associated with the LEFT posterior 8th rib corresponds to nonacute fracture of the LEFT 8th rib on CT exam of 02/26/2021. IMPRESSION: No acute radiographic abnormality is identified. Felt Puller: ALEXANDRO Transcribe Date/Time: Feb 26 2021 10:06A Dictated by : DARLING HOFFMAN MD This examination was interpreted and the report reviewed and electronically signed by: DALRING HOFFMAN MD on Frantz 15 2021 10:09AM EST [id number] [facility] -- TROY CARLSON ([id number]) 1965 M Date Time Provider Department 09/16/19 1:00 PM FREDIS CASAREZ During your visit today, we recorded the following information about you: Temperature Pulse Respiration Blood pressure 97.9 degrees 81/minute 20/minute 127/76 Weight Height 93.4 kg 1.676 m Fredis Casarez MD 09/16/2019 2:13 PM Signed [facility]- CLINIC NOTE -established visit Referral: CHIEF COMPLAINT: This is a 54 year old right-handed man with PMH of HTN, HL, hx of hep C/alcoholic cirrhosis s/o transplant returns for follow up of his neurological symptoms. He is accompanied by a friend to the visit. Last seen 07/13/19 Interval history: - Since the last visit - fractured both feet after a fall, was in hospital then transferred to rehab,, has been home for past 1.5 weeks. Also has history of osteoporosis. - Was advised to be NWB and wear boots - but caused irritation/ulceration so unable to wear - Is taking nortriptyline 10 mg daily for headache prophylaxis , reports headaches have improved from every other day to a few times a month. - Continues to have left arm numbness, was diagnosed with ulnar neuropathy on EMG. Has had surgery in the past. Was referred by PCP to orthopedics again. PAST MEDICAL HISTORY: PAST MEDICAL HISTORY Diagnosis Date - Cirrhosis (HCC) - ETOH abuse stopped etoh in 09/27 - H/O liver transplant (HCC) 10/03/2015 - Hepatitis C - Hepatopulmonary syndrome (HCC) used oxygen 3 to 6 liters and off O2 since liver transplant - Hypertension - MRSA (methicillin resistant Staphylococcus aureus) 11/2011 - Osteoporosis - Panic attacks - Prostatitis 11/2011 - Psoriasis - Splenomegaly - Thrombocytopenia (HCC) Pancytopenia resolved after liver transplant - Unspecified hypothyroidism Hypothyroidism PAST SURGICAL HISTORY: PAST SURGICAL HISTORY Procedure Laterality Date - COLONOSCOP W/ OR W/O [facility] SPEC 10/14/13 Colonoscopy - EGD W/O OR W/BRUSH/WASH 10/14/13 EGD - EGD W/O OR W/BRUSH/WASH 01/31/2019 EGD - INGUINAL HERNIA REPAIR HX 10/15/2016 - LIVER BIOPSY - NERVE ALTERATION 83? LEFT ELBOW ABOUT - PAST SURGICAL HISTORY OF 83? Deviated septum - PAST SURGICAL HISTORY OF Liver transplant : 09/2015 - PAST SURGICAL HISTORY OF PFO repair 2015 - PICC LINE INSERT/CONSULT 11/01/2015 - REMOVAL OF TONSILS,<12 Y/O Tonsillectomy FAMILY MEDICAL HISTORY: FAMILY HISTORY Problem Relation Age of Onset - Arthritis Brother Back issues - COPD Mother - Alzheimer's Disease Father - Diabetes Maternal Grandmother - Diabetes Paternal Grandfather - Amblyopia Daughter SOCIAL HISTORY: Social History Tobacco Use - Smoking status: Former Smoker Packs/day: 1.00 Years: 23.00 Pack years: 23.00 Types: Cigarettes Start date: 09/14/1979 Last attempt to quit: 08/01/2013 Years since quittin.1 - Smokeless tobacco: Never Used Substance Use Topics - Alcohol use: No Alcohol/week: 0.0 standard drinks Comment: Quit 10/2011 - Drug use: No Types: IV, Marijuana, Cocaine Comment: HISTORY OF IV DRUG CLEAN OF ALL RECREATIONAL DRUG USE REVIEW OF SYSTEMS: The review of systems is positive for the symptoms mentioned in the history of present illness. Additional review as follows: CONST: Has been having sweats, hot/cold the last week . EYES: intermittent blurry vision ENT: no change in hearing; no trouble swallowing NEURO: per HPI CARD: no chest pain or palpitations, no leg edema RESP: shortness of breath with exertion : no urinary urgency, frequency, or hematuria GI: chronic diarrhea MUSC: no joint pain or swelling, no muscle or back pain HEME: no bruising, bleeding, or swollen glands. GENERAL EXAMINATION: BP 127/76 (BP Site: Left Arm, BP Position: Sitting, BP Cuff Size: Regular Adult) Pulse 81 Temp 36.6 ?C (97.9 ?F) Resp 20 Ht 167.6 cm (5' 6) Wt 93.4 kg (206 lb) SpO2 99% BMI 33.25 kg/m? General appearance: Alert, in no acute distress. Eyes: Non-dilated fundoscopic exam deferred Extremities: Psoriatic lesions . Neurological: Mental Status: Alert, oriented to person, place and time and Follows commands. Cranial Nerves: CNII: Visual acuity normal, Visual jennings full to confrontation CNIII, IV, : Pupils equal, round and reactive to light, full extraoccular movements without nystagmus CN V: Facial sensation intact bilaterally to fine touch and pinprick, masseter 5/5 CN VII: Facial muscles symmetric and strong CN VIII: Hears finger rub well bilaterally CN IX: Gag Reflex Not examined CN X: Palate elevates symmetrically CN XI: Full strength shoulder shrug bilaterally CN XII: Tongue protrusion full and midline Motor Exam: Tone - Normal Bulk - no muscle atrophy Right Left Shoulder abductors 5 5 Shoulder adductors 5 5 Triceps 5 5 Biceps 5 5 Wrist Extensors 5 5 Wrist Flexors 5 5 Finger Extensors FDP (4,5) FDP (2,3) Hand Intrinsics [employer] APB Lower Extremities Right Left Hip Flexors 5 5 Hip Extensors 5 5 Hip Abductors 5 5 Hip Adductors 5 5 Knee Extensors 5 5 Knee Flexors 5 5 Ankle Dorsiflexors 5 5 Ankle Plantarflex 5 5 Foot Inversion Foot Eversion Toe Extensors Toe Flexors REFLEXES Right Left Bicep 2/4 2/4 Tricep 2/4 2/4 BrRad 2/4 2/4 Knee 2/4 3/4 Ankle trace trace Babinski: bilaterally Downward response Sensation: Decreased PP RLE , intact LLE. Intact vibration and JPS Coordination: Mild high frequency b/l US postural and action Gait: Gait is mildly wide based; unable to tandem . Romberg's +ve DATA: MRI brain with and without 06/22/19 No acute intracranial process. ?No acute infarct. ?No intracranial mass or abnormal intracranial enhancement. ?Chronic changes as described, similar to the prior exam. EMG 10/22/18 1. 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 More specifically, the left ulnar sensory amplitude is within normal range but <50% of opposite ulnar sensory nerve amplitude, with decreased dorsal ulnar sensory amplitude on the left. Ulnar motor response (recording abductor digiti minimi) is normal and there is no evidence of conduction block or slowing across the elbow segment. Chronic motor axon loss is seen in ulnar nerve-innervated intrinsic hand muscles, without abnormalities in an ulnar nerve-innervated muscle of the forearm (flexor digitorum profundus IV/V). There is no evidence of active motor axon loss. These findings do not allow precise localization of this lesion at the elbow region. However, decreased amplitude of the dorsal ulnar sensory response does favor a lesion at or proximal to the mid forearm. 2. No evidence of a superimposed left cervical motor radiculopathy, although a radiculopathy affecting only sensory nerve root fibers cannot be excluded. 3. No evidence of a left median neuropathy at or distal to the wrist (carpal tunnel syndrome) or a left radial neuropathy. IMPRESSION: 54 year old right-handed man with PMH of HTN, HL, hx of hep C/alcoholic cirrhosis s/o transplant who presents with headaches, imbalance , and left upper extremity numbness 1. Headaches - seemed to have migrainous component (possible photophobia, nausea), has had done from before now more frequent; admits to increased stress at this time. Had MRI brain with and without unremarkable; no evidence of infection. No altered mental status, has had intermittent blurry vision for a while. Also has chronic neck pain (especially while turning head to right) and recent increase in Wellbutrin, which may contribute. Has had benefit with nortriptyline 2. Gait - wide-based, Inability to tandem and positive Romberg's. Had decreased pinprick in right foot (along with slightly diminished knee jerk); may be underlying neuropathy, lumbar radiculopathy (in right leg), tacrolimus also is associated with ataxia and neuropathy. MRI brain with normal ventricles and cerebellum (tsh 2.6 3. Left upper extremity numbness - EMG consistent with an ulnar mononeuropathy, no evidence of a motor radiculopathy (though cannot rule out sensory radiculopathy) PLAN: - For headache prophylaxis continue nortriptyline 10 mg daily. Although continues to have few headaches a month he is reluctant to increase dose of nortriptyline further - per patient his psychiatrist recommended to continue same dose - Neuropathy screen for hemoglobin A1c, , vitamin B12, MAI ; tacrolimus. Contribute - Consider trial of elbow brace, to help with ulnar neuropathy . He will follow-up with orthopedics to discuss surgical options - Counseled about the importance of continuing with physical therapy for lower extremities, and has decreased use (until he is allowed to be weightbearing) may result in atrophy and weakness -All questions were answered to the best of my ability and patientq verbalized understanding of the plan of care and agreed. Total time spent 25 minutes, >50% of the time spent on support and counseling. This note was partially created using voice recognition software and is inherently subject to errors including those of syntax and sound-alike substitutions which may escape proofreading. In such instances, original meaning may be extrapolated by contextual derivation. Fredis Casarez M.D. [facility] Fredis Casarez MD 09/16/2019 1:10 PM Signed - Continue nortriptyline 10 mg daily for headache - Recommend wearing elbow brace for ulnar neuropathy; can see orthopedics or neurosurgery to discuss surgical options Referring Provider: FREDIS CASAREZ [[id number]] Allergies As of Date: 09/16/2019 Noted Allergy Reaction LATEX 04/22/2013 2 - Rash VANCOMYCIN (BULK) 03/26/2016 2 - Rash 9 - Itching VICODIN (HYDROCODONE-ACETAMINOPHE* 08/20/2009 9 - Itching Date Reviewed: 09/16/2019 Reviewed by: Arabella Miramontes Ma - Fully Assessed Reason for Visit: Established Patient [175] Primary Visit Diagnosis:Neuropathy - (NOS) [G62.9] Other Visit Diagnoses:Nonintractable headache, unspecified chronicity pattern, unspecified headache type [R51] Ulnar neuropathy of left upper extremity [G56.22] Order(s):HGB A1C [SIAMI3P] Order #: [id number] FUTURE VITAMIN B12 W/REFLEX [[id number]] Order #: [id number] FUTURE PROT ELECT WITH MAI AND INTERP [SQSEPGRX] Order #: [id number] FUTURE Prescriptions as of 09/16/2019 Sig: BUPROPION XL 300 MG 24 HR TAB Take 1 tablet by mouth once d* SERTRALINE 100 MG TABLET Take 2 tablets by mouth once * CLONAZEPAM 0.5 MG TABLET Take one tablet daily as need* POTASSIUM CHLORIDE ER 10 MEQ * Take 10 mEq by mouth twice da* URSODIOL 300 MG CAPSULE Take 1 capsule by mouth twice* TAMSULOSIN 0.4 MG CAPSULE Take 1 capsule by mouth twice* PANTOPRAZOLE 40 MG TABLET,DEL* Take 1 tablet by mouth daily * METOPROLOL SUCCINATE ER 25 MG* Take 1 tablet by mouth once d* NORTRIPTYLINE 10 MG CAPSULE Take 1 capsule by mouth daily* SULFAMETHOXAZOLE 800 MG-TRIME* 1 tablet every Thursday,* SULFAMETHOXAZOLE 800 MG-TRIME* 1 tablet every Thursday,* LISINOPRIL 5 MG TABLET Take 1 tablet by mouth once d* ALENDRONATE 70 MG TABLET Take 1 tablet by mouth once e* TACROLIMUS 0.5 MG CAPSULE Take 1 capsule by mouth twice* TACROLIMUS 1 MG CAPSULE Take 1 capsule by mouth twice* SIMVASTATIN 20 MG TABLET Take 1 tablet by mouth daily * MUPIROCIN 2 % TOPICAL OINTMENT Apply 1 application to affect* TRANSPARENT DRESSINGS 6 X 8 Apply 1 application to affect* CHOLECALCIFEROL (VITAMIN D3) * Take 5,000 Units by mouth onc* GARLIC 1,000 MG CAPSULE Take 1 capsule by mouth once * Problem List As Of Date 09/16/2019 Noted Resolved Thrombocytopenia [D69.6] 08/20/2009 04/22/2017 More... Hepatitis C [B19.20] 08/20/2009 11/03/2014 Splenomegaly [R16.1] 08/20/2009 Bilateral inguinal hernia (BIH) [K40.20] 12/26/2011 Epididymitis [N45.1] 11/24/2013 04/22/2017 Testalgia [N50.819] 11/24/2013 04/22/2017 Cirrhosis [K74.60] 04/22/2017 More... Syncope [R55] 01/03/2014 04/22/2017 Pancytopenia (HCC) [D61.818] 03/11/2014 03/12/2014 Hypoxemia [R09.02] 03/11/2014 10/15/2015 More... COPD (chronic obstructive pulmonary disease) (H*03/11/2014 03/12/2014 Coagulopathy (HCC) [D68.9] 03/11/2014 04/22/2017 HCV (hepatitis C virus) [B19.20] 03/11/2014 More... Hepatopulmonary syndrome (HCC) [K76.81] 03/12/2014 08/19/2018 More... Bicytopenia [D75.89] 03/12/2014 04/22/2017 More... Adjustment disorder with mixed anxiety and depr*05/23/2014 PFO (patent foramen ovale) [Q21.1] 07/11/2014 More... Caries [K02.9] 08/15/2014 Retained dental root [K08.3] 08/15/2014 SUMMARY 08/31/2014 07/24/2016 More... Fever and chills [R50.9] 08/31/2014 04/22/2017 More... Fever, low grade [R50.9] 11/03/2014 04/22/2017 More... UTI (lower urinary tract infection) [N39.0] 04/08/2015 04/22/2017 More... Hepatic encephalopathy (HCC) [K72.90] 04/08/2015 04/22/2017 More... Sarcoidosis (HCC) [D86.9] 04/17/2015 More... Chronic hepatitis C without hepatic coma (HCC) *05/17/2015 Frequency of micturition [R35.0] 05/17/2015 Infection of other external stoma of urinary tr*05/17/2015 04/22/2017 SUMMARY 06/14/2015 09/12/2015 More... SOB (shortness of breath) [R06.02] 06/14/2015 04/22/2017 More... Hepatic cirrhosis (HCC) [K74.60] 06/14/2015 04/22/2017 More... Abdominal pain [R10.9] 07/20/2015 04/22/2017 Hyperammonemia (HCC) [E72.20] 07/20/2015 04/22/2017 Pain disorder with psychological factors [F45.4*08/06/2015 Liver transplant candidate [Z76.82] 08/17/2015 04/22/2017 Abdominal distension [R14.0] 09/12/2015 04/22/2017 More... Hypothyroidism [E03.9] 09/12/2015 More... New onset seizure (HCC) [R56.9] 10/05/2015 More... ARDS (adult respiratory distress syndrome) (HCC*10/05/2015 04/22/2017 More... Postoperative anemia due to acute blood loss [D*10/05/2015 04/22/2017 More... Agitation requiring sedation protocol [R45.1] 10/05/2015 04/22/2017 More... S/P liver transplant (HCC) [Z94.4] 10/05/2015 More... Acute post-operative pain [G89.18] 10/05/2015 04/22/2017 More... Renal insufficiency [N28.9] 10/05/2015 10/08/2015 More... Stress hyperglycemia [R73.9] 10/05/2015 04/22/2017 More... Moderate protein-calorie malnutrition (HCC) [E4*10/05/2015 04/22/2017 More... Electrolyte and fluid disorder [E87.8] 10/07/2015 04/22/2017 More... Postoperative shock [T81.10XA] 10/09/2015 04/22/2017 More... Sepsis due to other etiology (HCC) [A41.89] 10/15/2015 04/22/2017 More... Paroxysmal atrial fibrillation (HCC) [I48.0] 10/15/2015 More... Spontaneous pneumothorax [J93.83] 10/16/2015 04/22/2017 More... Pneumonia, organism unspecified [J18.9] 10/16/2015 11/02/2015 More... Acute pneumothorax [J93.83] 10/17/2015 04/22/2017 Prerenal azotemia [R79.89] 10/17/2015 10/24/2015 More... Acute pulmonary embolism (HCC) [I26.99] 10/17/2015 04/22/2017 Respiratory failure, post-operative (HCC) [J95.*10/22/2015 04/22/2017 More... Neuromyopathy (HCC) [G70.9] 11/03/2015 More... Opioid withdrawal (HCC) [F11.23] 11/09/2015 04/22/2017 More... Need for prophylactic immunotherapy [Z29.8] 12/12/2015 Dysuria [R30.0] 03/26/2016 Lower abdominal pain [R10.30] 07/23/2016 04/22/2017 Non-ischemic cardiomyopathy (HCC) [I42.8] 07/24/2016 Essential hypertension [I10] 10/24/2016 More... Ventral hernia without obstruction or gangrene *03/24/2017 04/22/2017 S/P repair of ventral hernia [Z98.890, Z87.19] 04/17/2017 Abdominal wall cellulitis [L03.311] 12/01/2017 More... BPH with obstruction/lower urinary tract sympto*12/30/2017 BPH with urinary obstruction [N40.1, N13.8] 12/30/2017 More... Hilar adenopathy [R59.0] 07/09/2018 08/19/2018 More... Dilated bile duct [K83.8] 07/09/2018 More... Nausea AND vomiting [R11.2] 07/09/2018 07/28/2018 More... GERD (gastroesophageal reflux disease) [K21.9] 07/09/2018 More... JAROD (acute kidney injury) (HCC) [N17.9] 07/09/2018 More... Obesity, Class II, BMI 35-39.9 [E66.9] 07/09/2018 More... Cellulitis [L03.90] 07/09/2018 07/13/2018 Lung nodule [R91.1] 05/03/2019 More... Other instructions from your clinician: - Continue nortriptyline 10 mg daily for headache - Recommend wearing elbow brace for ulnar neuropathy; can see orthopedics or neurosurgery to discuss surgical options Disposition: Return in about 4 months (around 01/15/2020). Follow-up and Disposition History Recorded Encounter Status:Closed by FREDIS CASAREZ on 09/16/19 [facility] PROGRESSon 09-16-2019 PROGRESS HNO ID: [id number] Author: Fredis Casarez Service: ? Author Type: Physician Type: Progress Notes Filed: 09/16/2019 2:13 PM Note Text: CNI- CLINIC NOTE -established visit Referral: CHIEF COMPLAINT: This is a 54 year old right-handed man with PMH of HTN, HL, hx of hep C/alcoholic cirrhosis s/o transplant returns for follow up of his neurological symptoms. He is accompanied by a friend to the visit. Last seen 07/13/19 Interval history: - Since the last visit - fractured both feet after a fall, was in hospital then transferred to rehab,, has been home for past 1.5 weeks. Also has history of osteoporosis. - Was advised to be NWB and wear boots - but caused irritation/ulceration so unable to wear - Is taking nortriptyline 10 mg daily for headache prophylaxis , reports headaches have improved from every other day to a few times a month. - Continues to have left arm numbness, was diagnosed with ulnar neuropathy on EMG. Has had surgery in the past. Was referred by PCP to orthopedics again. PAST MEDICAL HISTORY: PAST MEDICAL HISTORY Diagnosis Date - Cirrhosis (HCC) - ETOH abuse stopped etoh in 09/27 - H/O liver transplant (HCC) 10/03/2015 - Hepatitis C - Hepatopulmonary syndrome (HCC) used oxygen 3 to 6 liters and off O2 since liver transplant - Hypertension - MRSA (methicillin resistant Staphylococcus aureus) 11/2011 - Osteoporosis - Panic attacks - Prostatitis 11/2011 - Psoriasis - Splenomegaly - Thrombocytopenia (HCC) Pancytopenia resolved after liver transplant - Unspecified hypothyroidism Hypothyroidism PAST SURGICAL HISTORY: PAST SURGICAL HISTORY Procedure Laterality Date [facility] Colon[facility] - EGD W/O OR W/BRUSH/WASH 10/14/13 EGD - EGD W/O OR W/BRUSH/WASH 01/31/2019 EGD - INGUINAL HERNIA REPAIR HX 10/15/2016 - LIVER BIOPSY - NERVE ALTERATION 83? LEFT ELBOW ABOUT - PAST SURGICAL HISTORY OF 83? Deviated septum - PAST SURGICAL HISTORY OF Liver transplant : 09/2015 - PAST SURGICAL HISTORY OF PFO repair 2015 - PICC LINE INSERT/CONSULT 11/01/2015 - REMOVAL OF TONSILS,<12 Y/O Tonsillectomy FAMILY MEDICAL HISTORY: FAMILY HISTORY Problem Relation Age of Onset - Arthritis Brother Back issues - COPD Mother - Alzheimer's Disease Father - Diabetes Maternal Grandmother - Diabetes Paternal Grandfather - Amblyopia Daughter SOCIAL HISTORY: Social History Tobacco Use - Smoking status: Former Smoker Packs/day: 1.00 Years: 23.00 Pack years: 23.00 Types: Cigarettes Start date: 09/14/1979 Last attempt to quit: 08/01/2013 Years since quittin.1 - Smokeless tobacco: Never Used Substance Use Topics - Alcohol use: No Alcohol/week: 0.0 standard drinks Comment: Quit 10/2011 - Drug use: No Types: IV, Marijuana, Cocaine Comment: HISTORY OF IV DRUG CLEAN OF ALL RECREATIONAL DRUG USE REVIEW OF SYSTEMS: The review of systems is positive for the symptoms mentioned in the history of present illness. Additional review as follows: CONST: Has been having sweats, hot/cold the last week . EYES: intermittent blurry vision ENT: no change in hearing; no trouble swallowing NEURO: per HPI CARD: no chest pain or palpitations, no leg edema RESP: shortness of breath with exertion : no urinary urgency, frequency, or hematuria GI: chronic diarrhea MUSC: no joint pain or swelling, no muscle or back pain HEME: no bruising, bleeding, or swollen glands. GENERAL EXAMINATION: BP 127/76 (BP Site: Left Arm, BP Position: Sitting, BP Cuff Size: Regular Adult) Pulse 81 Temp 36.6 ?C (97.9 ?F) Resp 20 Ht 167.6 cm (5' 6) Wt 93.4 kg (206 lb) SpO2 99% BMI 33.25 kg/m? General appearance: Alert, in no acute distress. Eyes: Non-dilated fundoscopic exam deferred Extremities: Psoriatic lesions . Neurological: Mental Status: Alert, oriented to person, place and time and Follows commands. Cranial Nerves: CNII: Visual acuity normal, Visual jennings full to confrontation CNIII, IV, : Pupils equal, round and reactive to light, full extraoccular movements without nystagmus CN V: Facial sensation intact bilaterally to fine touch and pinprick, masseter 5/5 CN VII: Facial muscles symmetric and strong CN VIII: Hears finger rub well bilaterally CN IX: Gag Reflex Not examined CN X: Palate elevates symmetrically CN XI: Full strength shoulder shrug bilaterally CN XII: Tongue protrusion full and midline Motor Exam: Tone - Normal Bulk - no muscle atrophy Right Left Shoulder abductors 5 5 Shoulder adductors 5 5 Triceps 5 5 Biceps 5 5 Wrist Extensors 5 5 Wrist Flexors 5 5 Finger Extensors FDP (4,5) FDP (2,3) Hand Intrinsics FPL APB Lower Extremities Right Left Hip Flexors 5 5 Hip Extensors 5 5 Hip Abductors 5 5 Hip Adductors 5 5 Knee Extensors 5 5 Knee Flexors 5 5 Ankle Dorsiflexors 5 5 Ankle Plantarflex 5 5 Foot Inversion Foot Eversion Toe Extensors Toe Flexors REFLEXES Right Left Bicep 2/4 2/4 Tricep 2/4 2/4 BrRad 2/4 2/4 Knee 2/4 3/4 Ankle trace trace Babinski: bilaterally Downward response Sensation: Decreased PP RLE , intact LLE. Intact vibration and JPS Coordination: Mild high frequency b/l US postural and action Gait: Gait is mildly wide based; unable to tandem . Romberg's +ve DATA: MRI brain with and without 06/22/19 No acute intracranial process. ?No acute infarct. ?No intracranial mass or abnormal intracranial enhancement. ?Chronic changes as described, similar to the prior exam. EMG 10/22/18 1. 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 More specifically, the left ulnar sensory amplitude is within normal range but <50% of opposite ulnar sensory nerve amplitude, with decreased dorsal ulnar sensory amplitude on the left. Ulnar motor response (recording abductor digiti minimi) is normal and there is no evidence of conduction block or slowing across the elbow segment. Chronic motor axon loss is seen in ulnar nerve-innervated intrinsic hand muscles, without abnormalities in an ulnar nerve-innervated muscle of the forearm (flexor digitorum profundus IV/V). There is no evidence of active motor axon loss. These findings do not allow precise localization of this lesion at the elbow region. However, decreased amplitude of the dorsal ulnar sensory response does favor a lesion at or proximal to the mid forearm. 2. No evidence of a superimposed left cervical motor radiculopathy, although a radiculopathy affecting only sensory nerve root fibers cannot be excluded. 3. No evidence of a left median neuropathy at or distal to the wrist (carpal tunnel syndrome) or a left radial neuropathy. IMPRESSION: 54 year old right-handed man with PMH of HTN, HL, hx of hep C/alcoholic cirrhosis s/o transplant who presents with headaches, imbalance , and left upper extremity numbness 1. Headaches - seemed to have migrainous component (possible photophobia, nausea), has had done from before now more frequent; admits to increased stress at this time. Had MRI brain with and without unremarkable; no evidence of infection. No altered mental status, has had intermittent blurry vision for a while. Also has chronic neck pain (especially while turning head to right) and recent increase in Wellbutrin, which may contribute. Has had benefit with nortriptyline 2. Gait - wide-based, Inability to tandem and positive Romberg's. Had decreased pinprick in right foot (along with slightly diminished knee jerk); may be underlying neuropathy, lumbar radiculopathy (in right leg), tacrolimus also is associated with ataxia and neuropathy. MRI brain with normal ventricles and cerebellum (tsh 2.6 3. Left upper extremity numbness - EMG consistent with an ulnar mononeuropathy, no evidence of a motor radiculopathy (though cannot rule out sensory radiculopathy) PLAN: - For headache prophylaxis continue nortriptyline 10 mg daily. Although continues to have few headaches a month he is reluctant to increase dose of nortriptyline further - per patient his psychiatrist recommended to continue same dose - Neuropathy screen for hemoglobin A1c, , vitamin B12, MAI ; tacrolimus. Contribute - Consider trial of elbow brace, to help with ulnar neuropathy . He will follow-up with orthopedics to discuss surgical options - Counseled about the importance of continuing with physical therapy for lower extremities, and has decreased use (until he is allowed to be weightbearing) may result in atrophy and weakness -All questions were answered to the best of my ability and patientq verbalized understanding of the plan of care and agreed. Total time spent 25 minutes, >50% of the time spent on support and counseling. This note was partially created using voice recognition software and is inherently subject to errors including those of syntax and sound-alike substitutions which may escape proofreading. In such instances, original meaning may be extrapolated by contextual derivation. Fredis Casarez M.D. [facility] Office [facility] ([facility] ) -- TROY CARLSON ([id number]) 1965 M Date Time Provider Department 07/13/19 2:00 PM FREDIS CASAREZ During your visit today, we recorded the following information about you: Pulse Blood pressure Weight Height 66/minute 139/81 102.5 kg 1.676 m Fredis Casarez MD 07/13/2019 4:37 PM Signed CNI- CLINIC NOTE - INITIAL VISIT Referral: Carina Hirsch PA-C [id number] [facility] [address] Primary Care Physician: Giancarlo Kendall MD [id number] [facility] [place] [address] CHIEF COMPLAINT: This is a 54 year old right-handed man with PMH of HTN, HL, hx of hep C/alcoholic cirrhosis s/o transplant referred evaluation fo his neurological symptoms. He is accompanied by a friend to the visit. PRESENT ILLNESS: The patient reports several neurological symptoms: 1. Falls - Has had a few falls in the last month - can fall during walking (feels he veers to one side while walking), feels unsteady even when standing still - Had 3 in his bedroom, once when standing up - Denies numbness and tingling 2. Headaches - Has had headaches on and off for a while, recently more frequent over the past 1.5 months - Headaches - mostly frontal, just hurts ?photophobia, likes to take a nap Has chronic nausea - ?recent stomach bug (had recent vomiting) . - Can be up to an 8 /10 in intensity - Freq - every other day, can last half a day - Sometimes uncomfortable having hat on his head - No recent head injury - Has occasional blurry vision, has cataracts - Takes tylenol (only pain relief allowed) - Wellbutrin was recently increased 3. Left upper extremity numbness - reports left arm was paralysed after surgery for 2 weeks, then recovered. Has occasional numbness in the left arm since then, especially in digits 4-5 - Underwent an EMG in October (results below) - Had ulnar nerve surgery left elbow in PAST MEDICAL HISTORY: PAST MEDICAL HISTORY Diagnosis Date - Cirrhosis (HCC) - ETOH abuse stopped etoh in 09/27 - H/O liver transplant (HCC) 10/03/2015 - Hepatitis C - Hepatopulmonary syndrome (HCC) used oxygen 3 to 6 liters and off O2 since liver transplant - Hypertension - MRSA (methicillin resistant Staphylococcus aureus) 11/2011 - Osteoporosis - Panic attacks - Prostatitis 11/2011 - Psoriasis - Splenomegaly - Thrombocytopenia (HCC) Pancytopenia resolved after liver transplant - Unspecified hypothyroidism Hypothyroidism PAST SURGICAL HISTORY: PAST SURGICAL HISTORY Procedure Laterality Date - COLONOSCOP W/ OR W/O BRSH SPEC 10/14/13 Colonoscopy - EGD W/O OR W/BRUSH/WASH 10/14/13 EGD - EGD W/O OR W/BRUSH/WASH 01/31/2019 EGD - INGUINAL HERNIA REPAIR HX 10/15/2016 - LIVER BIOPSY - NERVE ALTERATION 83? LEFT ELBOW ABOUT - PAST SURGICAL HISTORY OF 83? Deviated septum - PAST SURGICAL HISTORY OF Liver transplant : 09/2015 - PAST SURGICAL HISTORY OF PFO repair 2015 - PICC LINE INSERT/CONSULT 11/01/2015 - REMOVAL OF TONSILS,<12 Y/O Tonsillectomy FAMILY MEDICAL HISTORY: FAMILY HISTORY Problem Relation Age of Onset - Arthritis Brother Back issues - COPD Mother - Alzheimer's Disease Father - Diabetes Maternal Grandmother - Diabetes Paternal Grandfather - Amblyopia Daughter SOCIAL HISTORY: Social History Socioeconomic History Marital status: Spouse name: Not on file Number of children: 2 Years of education: Not on file Highest education level: Not on file Occupational History Occupation: unemployed Social Needs Financial resource strain: Not on file Food insecurity: Worry: Not on file Inability: Not on file Transportation needs: Medical: Not on file Non-medical: Not on file Tobacco Use Smoking status: Former Smoker Packs/day: 1.00 Years: 23.00 Pack years: 23 Types: Cigarettes Start date: 09/14/1979 Quit date: 08/01/2013 Years since quittin.9 Smokeless tobacco: Never Used Substance and Sexual Activity Alcohol use: No Alcohol/week: 0.0 standard drinks Comment: Quit 10/2011 Drug use: No Types: IV, Marijuana, Cocaine Comment: HISTORY OF IV DRUG CLEAN OF ALL RECREATIONAL DRUG USE Sexual activity: Yes Partners: Female Lifestyle Physical activity: Days per week: Not on file Minutes per session: Not on file Stress: Not on file Relationships Social connections: Talks on phone: Not on file Gets together: Not on file Attends jain service: Not on file Active member of club or organization: Not on file Attends meetings of clubs or organizations: Not on file Relationship status: Not on file Intimate partner violence: Fear of current or ex partner: Not on file Emotionally abused: Not on file Physically abused: Not on file Forced sexual activity: Not on file Other Topics Concerns: Not on file Social History Narrative Not on file REVIEW OF SYSTEMS: The review of systems is positive for the symptoms mentioned in the history of present illness. Additional review as follows: CONST: Has been having sweats, hot/cold the last week . EYES: intermittent blurry vision ENT: no change in hearing; no trouble swallowing NEURO: per HPI CARD: no chest pain or palpitations, no leg edema RESP: shortness of breath with exertion : no urinary urgency, frequency, or hematuria GI: chronic diarrhea MUSC: no joint pain or swelling, no muscle or back pain HEME: no bruising, bleeding, or swollen glands. GENERAL EXAMINATION: BP 139/81 (BP Site: Left Arm, BP Position: Sitting, BP Cuff Size: Large Adult) Pulse 66 Ht 167.6 cm (5' 6) Wt 102.5 kg (226 lb) SpO2 100% BMI 36.48 kg/m? General appearance: Alert, in no acute distress. Eyes: Non-dilated fundoscopic exam deferred Extremities: Psoriatic lesions . Neurological: Mental Status: Alert, oriented to person, place and time and Follows commands. Cranial Nerves: CNII: Visual acuity normal, Visual jennings full to confrontation CNIII, IV, : Pupils equal, round and reactive to light, full extraoccular movements without nystagmus CN V: Facial sensation intact bilaterally to fine touch and pinprick, masseter 5/5 CN VII: Facial muscles symmetric and strong CN VIII: Hears finger rub well bilaterally CN IX: Gag Reflex Not examined CN X: Palate elevates symmetrically CN XI: Full strength shoulder shrug bilaterally CN XII: Tongue protrusion full and midline Motor Exam: Tone - Normal Bulk - no muscle atrophy Right Left Shoulder abductors 5 5 Shoulder adductors 5 5 Triceps 5 5 Biceps 5 5 Wrist Extensors 5 5 Wrist Flexors 5 5 Finger Extensors FDP (4,5) FDP (2,3) Hand Intrinsics FPL APB Lower Extremities Right Left Hip Flexors 5 5 Hip Extensors 5 5 Hip Abductors 5 5 Hip Adductors 5 5 Knee Extensors 5 5 Knee Flexors 5 5 Ankle Dorsiflexors 5 5 Ankle Plantarflex 5 5 Foot Inversion Foot Eversion Toe Extensors Toe Flexors REFLEXES Right Left Bicep 2/4 2/4 Tricep 2/4 2/4 BrRad 2/4 2/4 Knee 2/4 3/4 Ankle trace trace Babinski: bilaterally Downward response Sensation: Decreased PP RLE , intact LLE. Intact vibration and JPS Coordination: Mild high frequency b/l US postural and action Gait: Gait is mildly wide based; unable to tandem . Romberg's +ve DATA: MRI brain with and without 06/22/19 No acute intracranial process. ?No acute infarct. ?No intracranial mass or abnormal intracranial enhancement. ?Chronic changes as described, similar to the prior exam. EMG 10/22/18 1. 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 More specifically, the left ulnar sensory amplitude is within normal range but <50% of opposite ulnar sensory nerve amplitude, with decreased dorsal ulnar sensory amplitude on the left. Ulnar motor response (recording abductor digiti minimi) is normal and there is no evidence of conduction block or slowing across the elbow segment. Chronic motor axon loss is seen in ulnar nerve-innervated intrinsic hand muscles, without abnormalities in an ulnar nerve-innervated muscle of the forearm (flexor digitorum profundus IV/V). There is no evidence of active motor axon loss. These findings do not allow precise localization of this lesion at the elbow region. However, decreased amplitude of the dorsal ulnar sensory response does favor a lesion at or proximal to the mid forearm. 2. No evidence of a superimposed left cervical motor radiculopathy, although a radiculopathy affecting only sensory nerve root fibers cannot be excluded. 3. No evidence of a left median neuropathy at or distal to the wrist (carpal tunnel syndrome) or a left radial neuropathy. IMPRESSION: 54 year old right-handed man with PMH of HTN, HL, hx of hep C/alcoholic cirrhosis s/o transplant who presents with headaches, imbalance , and left upper extremity numbness 1. Headaches - seemed to have migrainous component (possible photophobia, nausea), has had done from before now more frequent; admits to increased stress at this time. Had MRI brain with and without unremarkable; no evidence of infection. No altered mental status, has had intermittent blurry vision for a while. Also has chronic neck pain (especially while turning head to right) and recent increase in Wellbutrin, which may contribute 2. Gait - wide-based, Inability to tandem and positive Romberg's. Had decreased pinprick in right foot (along with slightly diminished knee jerk); may be underlying neuropathy, lumbar radiculopathy (in right leg), tacrolimus also is associated with ataxia and neuropathy. MRI brain with normal ventricles and cerebellum (tsh 2.6 3. Left upper extremity numbness - EMG consistent with an ulnar mononeuropathy, no evidence of a motor radiculopathy (though cannot rule out sensory radiculopathy) PLAN: - Since the patient has greater than 15 headache days a month, recommended prophylaxis with nortriptyline 10 mg at bedtime, an increase further if tolerated (check medication interactions, tacrolimus can cause higher nortriptyline levels - will continue at a low dose and increase cautiously if needed). Agent was initially hesitant but later agreed to trying. He is also already on metoprolol (which can be increased further if needed) - Check orthostatics at next visit - If balance continues to worsen consider neuropathy workup - HbA1c, TSH, vitamin B12, MAI (tacrolimus can also contribute), EMG Return to clinic is planned for approximately 3 months All questions were answered to the best of my ability and patient verbalized understanding of the plan of care and agreed. Total time spent 60 minutes, >50% of the time spent on support and counseling. A copy of this note was electronically submitted to the referring physician: Carina Hirsch PA-C [id number] [facility] [id number]. A copy of this note was also forwarded to the primary care physician by the same route: Giancarlo Kendall MD [id number] [place] [address] Thank you for allowing me to participate in the neurologic care of this patient. This note was partially created using voice recognition software and is inherently subject to errors including those of syntax and sound-alike substitutions which may escape proofreading. In such instances, original meaning may be extrapolated by contextual derivation. Fredis Casarez M.D. [place] [facility] Referring Provider: Carina HIRSCH ([facility]) [[id number]] Allergies As of Date: 07/13/2019 Noted Allergy Reaction LATEX 04/22/2013 2 - Rash VANCOMYCIN (BULK) 03/26/2016 2 - Rash 9 - Itching VICODIN (HYDROCODONE-ACETAMINOPHE* 08/20/2009 9 - Itching Date Reviewed: 07/13/2019 Reviewed by: Moni Silva Ma - Fully Assessed Reason for Visit: New Patient [[id number]] Primary Visit Diagnosis:Nonintractable headache, unspecified chronicity pattern, unspecified headache type [R51] Other Visit Diagnoses:Abnormality of gait due to impairment of balance [R26.89] Ulnar neuropathy of left upper extremity [G56.22] Order(s):nortriptyline (PAMELOR) 10 mg capsuleTake 1 capsule by mouth daily at bedtime.Disp: 30 capsuleRfl: 2 Prescriptions as of 07/13/2019 Sig: SULFAMETHOXAZOLE 800 MG-TRIME* 1 tablet every Thursday,* BUPROPION XL 300 MG 24 HR TAB Take 1 tablet by mouth once d* SERTRALINE 100 MG TABLET Take 2 tablets by mouth once * CLONAZEPAM 0.5 MG TABLET Take one tablet twice daily a* LISINOPRIL 5 MG TABLET Take 1 tablet by mouth once d* PANTOPRAZOLE 40 MG TABLET,DEL* Take 1 tablet by mouth daily * CLONAZEPAM 0.5 MG TABLET Take 0.5 tablets by mouth onc* Patient taking differently: Take 0.25 mg by mouth twice d* URSODIOL 300 MG CAPSULE TAKE 1 CAPSULE BY MOUTH THREE* Patient taking differently: Take 300 mg by mouth twice da* TAMSULOSIN 0.4 MG CAPSULE Take 1 capsule by mouth daily* ALENDRONATE 70 MG TABLET Take 1 tablet by mouth once e* TACROLIMUS 0.5 MG CAPSULE Take 1 capsule by mouth twice* TACROLIMUS 1 MG CAPSULE Take 1 capsule by mouth twice* SIMVASTATIN 20 MG TABLET Take 1 tablet by mouth daily * MUPIROCIN 2 % TOPICAL OINTMENT Apply 1 application to affect* METOPROLOL SUCCINATE ER 25 MG* Take 1 tablet by mouth once d* TRANSPARENT DRESSINGS 6 X 8 Apply 1 application to affect* CHOLECALCIFEROL (VITAMIN D3) * Take 5,000 Units by mouth onc* GARLIC 1,000 MG CAPSULE Take 1 capsule by mouth once * NORTRIPTYLINE 10 MG CAPSULE Take 1 capsule by mouth daily* SULFAMETHOXAZOLE 800 MG-TRIME* 1 tablet every Thursday,* Patient not taking: Reported on 07/13/2019 PERFLUTREN LIPID MICROSPHERES* Inject 1.3 mL intravenously a* Patient not taking: Reported on 07/13/2019 Problem List As Of Date 07/13/2019 Noted Resolved Thrombocytopenia [D69.6] INVALID FOR*04/22/2017 More... Hepatitis C [B19.20] INVALID FOR*11/03/2014 Splenomegaly [R16.1] INVALID FOR* Bilateral inguinal hernia (BIH) [K40.20] INVALID FOR* Epididymitis [N45.1] INVALID FOR*04/22/2017 Testalgia [N50.819] INVALID FOR*04/22/2017 Cirrhosis [K74.60] 04/22/2017 More... Syncope [R55] INVALID FOR*04/22/2017 Pancytopenia (HCC) [D61.818] INVALID FOR*03/12/2014 Hypoxemia [R09.02] INVALID FOR*10/15/2015 More... COPD (chronic obstructive pulmonary disease) (H*INVALID FOR*03/12/2014 Coagulopathy (HCC) [D68.9] INVALID FOR*04/22/2017 HCV (hepatitis C virus) [B19.20] INVALID FOR* More... Hepatopulmonary syndrome (HCC) [K76.81] INVALID FOR*08/19/2018 More... Bicytopenia [D75.89] INVALID FOR*04/22/2017 More... Adjustment disorder with mixed anxiety and depr*INVALID FOR* PFO (patent foramen ovale) [Q21.1] INVALID FOR* More... Caries [K02.9] INVALID FOR* Retained dental root [K08.3] INVALID FOR* SUMMARY INVALID FOR*07/24/2016 More... Fever and chills [R50.9] INVALID FOR*04/22/2017 More... Fever, low grade [R50.9] INVALID FOR*04/22/2017 More... UTI (lower urinary tract infection) [N39.0] INVALID FOR*04/22/2017 More... Hepatic encephalopathy (HCC) [K72.90] INVALID FOR*04/22/2017 More... Sarcoidosis (HCC) [D86.9] INVALID FOR* More... Chronic hepatitis C without hepatic coma (HCC) *INVALID FOR* Frequency of micturition [R35.0] INVALID FOR* Infection of other external stoma of urinary tr*INVALID FOR*04/22/2017 SUMMARY INVALID FOR*09/12/2015 More... SOB (shortness of breath) [R06.02] INVALID FOR*04/22/2017 More... Hepatic cirrhosis (HCC) [K74.60] INVALID FOR*04/22/2017 More... Abdominal pain [R10.9] INVALID FOR*04/22/2017 Hyperammonemia (HCC) [E72.20] INVALID FOR*04/22/2017 Pain disorder with psychological factors [F45.4*INVALID FOR* Liver transplant candidate [Z76.82] INVALID FOR*04/22/2017 Abdominal distension [R14.0] INVALID FOR*04/22/2017 More... Hypothyroidism [E03.9] INVALID FOR* More... New onset seizure (HCC) [R56.9] INVALID FOR* More... ARDS (adult respiratory distress syndrome) (HCC*INVALID FOR*04/22/2017 More... Postoperative anemia due to acute blood loss [D*INVALID FOR*04/22/2017 More... Agitation requiring sedation protocol [R45.1] INVALID FOR*04/22/2017 More... S/P liver transplant (HCC) [Z94.4] INVALID FOR* More... Acute post-operative pain [G89.18] INVALID FOR*04/22/2017 More... Renal insufficiency [N28.9] INVALID FOR*10/08/2015 More... Stress hyperglycemia [R73.9] INVALID FOR*04/22/2017 More... Moderate protein-calorie malnutrition (HCC) [E4*INVALID FOR*04/22/2017 More... Electrolyte and fluid disorder [E87.8] INVALID FOR*04/22/2017 More... Postoperative shock [T81.10XA] INVALID FOR*04/22/2017 More... Sepsis due to other etiology (HCC) [A41.89] INVALID FOR*04/22/2017 More... Paroxysmal atrial fibrillation (HCC) [I48.0] INVALID FOR* More... Spontaneous pneumothorax [J93.83] INVALID FOR*04/22/2017 More... Pneumonia, organism unspecified [J18.9] INVALID FOR*11/02/2015 More... Acute pneumothorax [J93.83] INVALID FOR*04/22/2017 Prerenal azotemia [R79.89] INVALID FOR*10/24/2015 More... Acute pulmonary embolism (HCC) [I26.99] INVALID FOR*04/22/2017 Respiratory failure, post-operative (HCC) [J95.*INVALID FOR*04/22/2017 More... 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 Opioid withdrawal (HCC) [F11.23] INVALID FOR*04/22/2017 More... Need for prophylactic immunotherapy [Z29.8] INVALID FOR* Dysuria [R30.0] INVALID FOR* Lower abdominal pain [R10.30] INVALID FOR*04/22/2017 Non-ischemic cardiomyopathy (HCC) [I42.8] INVALID FOR* Essential hypertension [I10] INVALID FOR* More... Ventral hernia without obstruction or gangrene *INVALID FOR*04/22/2017 S/P repair of ventral hernia [Z98.890, Z87.19] INVALID FOR* Abdominal wall cellulitis [L03.311] INVALID FOR* More... 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 Hilar adenopathy [R59.0] INVALID FOR*08/19/2018 More... Dilated bile duct [K83.8] INVALID FOR* More... Nausea AND vomiting [R11.2] INVALID FOR*07/28/2018 More... GERD (gastroesophageal reflux disease) [K21.9] INVALID FOR* More... JAROD (acute kidney injury) (HCC) [N17.9] INVALID FOR* More... Obesity, Class II, BMI 35-39.9 [E66.9] INVALID FOR* More... Cellulitis [L03.90] INVALID FOR*07/13/2018 Lung nodule [R91.1] INVALID FOR* More... Prescriptions ordered this encounter Disp Refills Start End NORTRIPTYLINE 10 MG CAPSULE 30 c* 2 07/13/2019 Route: ORAL Sig: Take 1 capsule by mouth daily at bedtime. Disposition: Return in about 2 months (around 09/12/2019). Follow-up and Disposition History Recorded Encounter Status:Closed by FREDIS CASAREZ on 07/13/19 [facility] PROGRESSon 07-13-2019 PROGRESS HNO ID: [id number] Author: Fredis Casarez Service: ? Author Type: Physician Type: Progress Notes Filed: 07/13/2019 4:37 PM Note Text: CNI- CLINIC NOTE - INITIAL VISIT Referral: Carina Hirsch PA-C [address] [facility] [address] Primary Care Physician: Giancarlo Kendall MD [address] [facility] [place] [address] CHIEF COMPLAINT: This is a 54 year old right-handed man with PMH of HTN, HL, hx of hep C/alcoholic cirrhosis s/o transplant referred evaluation fo his neurological symptoms. He is accompanied by a friend to the visit. PRESENT ILLNESS: The patient reports several neurological symptoms: 1. Falls - Has had a few falls in the last month - can fall during walking (feels he veers to one side while walking), feels unsteady even when standing still - Had 3 in his bedroom, once when standing up - Denies numbness and tingling 2. Headaches - Has had headaches on and off for a while, recently more frequent over the past 1.5 months - Headaches - mostly frontal, just hurts ?photophobia, likes to take a nap Has chronic nausea - ?recent stomach bug (had recent vomiting) . - Can be up to an 8 /10 in intensity - Freq - every other day, can last half a day - Sometimes uncomfortable having hat on his head - No recent head injury - Has occasional blurry vision, has cataracts - Takes tylenol (only pain relief allowed) - Wellbutrin was recently increased 3. Left upper extremity numbness - reports left arm was paralysed after surgery for 2 weeks, then recovered. Has occasional numbness in the left arm since then, especially in digits 4-5 - Underwent an EMG in October (results below) - Had ulnar nerve surgery left elbow in PAST MEDICAL HISTORY: PAST MEDICAL HISTORY Diagnosis Date - Cirrhosis (HCC) - ETOH abuse stopped etoh in 09/27 - H/O liver transplant (HCC) 10/03/2015 - Hepatitis C - Hepatopulmonary syndrome (HCC) used oxygen 3 to 6 liters and off O2 since liver transplant - Hypertension - MRSA (methicillin resistant Staphylococcus aureus) 11/2011 - Osteoporosis - Panic attacks - Prostatitis 11/2011 - Psoriasis - Splenomegaly - Thrombocytopenia (HCC) Pancytopenia resolved after liver transplant - Unspecified hypothyroidism Hypothyroidism PAST SURGICAL HISTORY: PAST SURGICAL HISTORY Procedure Laterality Date - COLONOSCOP W/ OR W/O BRSH SPEC 10/14/13 Colonoscopy - EGD W/O OR W/BRUSH/WASH 10/14/13 EGD - EGD W/O OR W/BRUSH/WASH 01/31/2019 EGD - INGUINAL HERNIA REPAIR HX 10/15/2016 - LIVER BIOPSY - NERVE ALTERATION 83? LEFT ELBOW ABOUT - PAST SURGICAL HISTORY OF 83? Deviated septum - PAST SURGICAL HISTORY OF Liver transplant : 09/2015 - PAST SURGICAL HISTORY OF PFO repair 2015 - PICC LINE INSERT/CONSULT 11/01/2015 - REMOVAL OF TONSILS,<12 Y/O Tonsillectomy FAMILY MEDICAL HISTORY: FAMILY HISTORY Problem Relation Age of Onset - Arthritis Brother Back issues - COPD Mother - Alzheimer's Disease Father - Diabetes Maternal Grandmother - Diabetes Paternal Grandfather - Amblyopia Daughter SOCIAL HISTORY: Social History Socioeconomic History Marital status: Spouse name: Not on file Number of children: 2 Years of education: Not on file Highest education level: Not on file Occupational History Occupation: unemployed Social Needs Financial resource strain: Not on file Food insecurity: Worry: Not on file Inability: Not on file Transportation needs: Medical: Not on file Non-medical: Not on file Tobacco Use Smoking status: Former Smoker Packs/day: 1.00 Years: 23.00 Pack years: 23 Types: Cigarettes Start date: 09/14/1979 Quit date: 08/01/2013 Years since quittin.9 Smokeless tobacco: Never Used Substance and Sexual Activity Alcohol use: No Alcohol/week: 0.0 standard drinks Comment: Quit 10/2011 Drug use: No Types: IV, Marijuana, Cocaine Comment: HISTORY OF IV DRUG CLEAN OF ALL RECREATIONAL DRUG USE Sexual activity: Yes Partners: Female Lifestyle Physical activity: Days per week: Not on file Minutes per session: Not on file Stress: Not on file Relationships Social connections: Talks on phone: Not on file Gets together: Not on file Attends jain service: Not on file Active member of club or organization: Not on file Attends meetings of clubs or organizations: Not on file Relationship status: Not on file Intimate partner violence: Fear of current or ex partner: Not on file Emotionally abused: Not on file Physically abused: Not on file Forced sexual activity: Not on file Other Topics Concerns: Not on file Social History Narrative Not on file REVIEW OF SYSTEMS: The review of systems is positive for the symptoms mentioned in the history of present illness. Additional review as follows: CONST: Has been having sweats, hot/cold the last week . EYES: intermittent blurry vision ENT: no change in hearing; no trouble swallowing NEURO: per HPI CARD: no chest pain or palpitations, no leg edema RESP: shortness of breath with exertion : no urinary urgency, frequency, or hematuria GI: chronic diarrhea MUSC: no joint pain or swelling, no muscle or back pain HEME: no bruising, bleeding, or swollen glands. GENERAL EXAMINATION: BP 139/81 (BP Site: Left Arm, BP Position: Sitting, BP Cuff Size: Large Adult) Pulse 66 Ht 167.6 cm (5' 6) Wt 102.5 kg (226 lb) SpO2 100% BMI 36.48 kg/m? General appearance: Alert, in no acute distress. Eyes: Non-dilated fundoscopic exam deferred Extremities: Psoriatic lesions . Neurological: Mental Status: Alert, oriented to person, place and time and Follows commands. Cranial Nerves: CNII: Visual acuity normal, Visual jennings full to confrontation CNIII, IV, : Pupils equal, round and reactive to light, full extraoccular movements without nystagmus CN V: Facial sensation intact bilaterally to fine touch and pinprick, masseter 5/5 CN VII: Facial muscles symmetric and strong CN VIII: Hears finger rub well bilaterally CN IX: Gag Reflex Not examined CN X: Palate elevates symmetrically CN XI: Full strength shoulder shrug bilaterally CN XII: Tongue protrusion full and midline Motor Exam: Tone - Normal Bulk - no muscle atrophy Right Left Shoulder abductors 5 5 Shoulder adductors 5 5 Triceps 5 5 Biceps 5 5 Wrist Extensors 5 5 Wrist Flexors 5 5 Finger Extensors FDP (4,5) FDP (2,3) Hand Intrinsics FPL APB Lower Extremities Right Left Hip Flexors 5 5 Hip Extensors 5 5 Hip Abductors 5 5 Hip Adductors 5 5 Knee Extensors 5 5 Knee Flexors 5 5 Ankle Dorsiflexors 5 5 Ankle Plantarflex 5 5 Foot Inversion Foot Eversion Toe Extensors Toe Flexors REFLEXES Right Left Bicep 2/4 2/4 Tricep 2/4 2/4 BrRad 2/4 2/4 Knee 2/4 3/4 Ankle trace trace Babinski: bilaterally Downward response Sensation: Decreased PP RLE , intact LLE. Intact vibration and JPS Coordination: Mild high frequency b/l US postural and action Gait: Gait is mildly wide based; unable to tandem . Romberg's +ve DATA: MRI brain with and without 06/22/19 No acute intracranial process. ?No acute infarct. ?No intracranial mass or abnormal intracranial enhancement. ?Chronic changes as described, similar to the prior exam. EMG 10/22/18 1. 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 More specifically, the left ulnar sensory amplitude is within normal range but <50% of opposite ulnar sensory nerve amplitude, with decreased dorsal ulnar sensory amplitude on the left. Ulnar motor response (recording abductor digiti minimi) is normal and there is no evidence of conduction block or slowing across the elbow segment. Chronic motor axon loss is seen in ulnar nerve-innervated intrinsic hand muscles, without abnormalities in an ulnar nerve-innervated muscle of the forearm (flexor digitorum profundus IV/V). There is no evidence of active motor axon loss. These findings do not allow precise localization of this lesion at the elbow region. However, decreased amplitude of the dorsal ulnar sensory response does favor a lesion at or proximal to the mid forearm. 2. No evidence of a superimposed left cervical motor radiculopathy, although a radiculopathy affecting only sensory nerve root fibers cannot be excluded. 3. No evidence of a left median neuropathy at or distal to the wrist (carpal tunnel syndrome) or a left radial neuropathy. IMPRESSION: 54 year old right-handed man with PMH of HTN, HL, hx of hep C/alcoholic cirrhosis s/o transplant who presents with headaches, imbalance , and left upper extremity numbness 1. Headaches - seemed to have migrainous component (possible photophobia, nausea), has had done from before now more frequent; admits to increased stress at this time. Had MRI brain with and without unremarkable; no evidence of infection. No altered mental status, has had intermittent blurry vision for a while. Also has chronic neck pain (especially while turning head to right) and recent increase in Wellbutrin, which may contribute 2. Gait - wide-based, Inability to tandem and positive Romberg's. Had decreased pinprick in right foot (along with slightly diminished knee jerk); may be underlying neuropathy, lumbar radiculopathy (in right leg), tacrolimus also is associated with ataxia and neuropathy. MRI brain with normal ventricles and cerebellum (tsh 2.6 3. Left upper extremity numbness - EMG consistent with an ulnar mononeuropathy, no evidence of a motor radiculopathy (though cannot rule out sensory radiculopathy) PLAN: - Since the patient has greater than 15 headache days a month, recommended prophylaxis with nortriptyline 10 mg at bedtime, an increase further if tolerated (check medication interactions, tacrolimus can cause higher nortriptyline levels - will continue at a low dose and increase cautiously if needed). Agent was initially hesitant but later agreed to trying. He is also already on metoprolol (which can be increased further if needed) - Check orthostatics at next visit - If balance continues to worsen consider neuropathy workup - HbA1c, TSH, vitamin B12, MAI (tacrolimus can also contribute), EMG Return to clinic is planned for approximately 3 months All questions were answered to the best of my ability and patient verbalized understanding of the plan of care and agreed. Total time spent 60 minutes, >50% of the time spent on support and counseling. A copy of this note was electronically submitted to the referring physician: Carina Hirsch PA-C [address] [facility] [id number]. A copy of this note was also forwarded to the primary care physician by the same route: Giancarlo Kendall MD [address] [phone] Thank you for allowing me to participate in the neurologic care of this patient. This note was partially created using voice recognition software and is inherently subject to errors including those of syntax and sound-alike substitutions which may escape proofreading. In such instances, original meaning may be extrapolated by contextual derivation. Fredis Casarez M.D. [facility] Normal [facility] Vital Signs Date Time Vital Sign Value Performing Clinician Facility 04-08-2025 09:02-0400 Diastolic blood pressure 65 mm[Hg] NO DOCTOR [facility] 04-08-2025 09:02-0400 Heart rate 66 /min NO DOCTOR [facility] 04-08-2025 09:02-0400 Systolic blood pressure 140 mm[Hg] NO DOCTOR [facility] 04-08-2025 08:00-0400 Body temperature 98.4 [degF] NO DOCTOR [facility] 04-08-2025 08:00-0400 Body temperature 98.6 [degF] Dr Connor Platt DO Mobile Phone: [facility] 04-08-2025 08:00-0400 Respiratory rate 16 /min NO DOCTOR [facility] 04-08-2025 08:00-0400 Respiratory rate 18 /min Dr Connor Platt DO Mobile Phone: [facility] 04-08-2025 08:00-0400 SaO2% (BldA) [Mass fraction] 99 % NO [facility] 04-06-2025 14:11-0400 Body temperature 97.8 [degF] NO [facility] 04-06-2025 14:11-0400 Diastolic blood pressure 70 mm[Hg] NO [facility] 04-06-2025 14:11-0400 Heart rate 66 /min NO [facility] 04-06-2025 14:11-0400 Respiratory rate 18 /min NO [facility] 04-06-2025 14:11-0400 Systolic blood pressure 163 mm[Hg] NO [facility] 04-06-2025 14:03-0400 SaO2% (BldA) [Mass fraction] 100 % NO [facility] 04-05-2025 23:33-0400 Body height 170.18 cm NO [facility] 04-05-2025 23:33-0400 Body mass index (BMI) [Ratio] 22.7 kg/m2 NO [facility] 04-05-2025 23:33-0400 Body weight 65.77 kg NO [facility] 06-28-2024 12:38-0400 Diastolic blood pressure 88 mm[Hg] ANABELLE MAGAÑA MD Work Phone: [facility] 06-28-2024 12:38-0400 Heart rate 57 /min ANABELLE MAGAÑA MD Work Phone: [facility] 06-28-2024 12:38-0400 Respiratory rate 16 /min ANABELLE MAGAÑA MD Work Phone: [facility] 06-28-2024 12:38-0400 SaO2% (BldA) [Mass fraction] 99 % ANABELLE MAGAÑA MD Work Phone: [facility] 06-28-2024 12:38-0400 Systolic blood pressure 144 mm[Hg] ANABELLE MAGAÑA MD Work Phone: [facility] 06-28-2024 11:37-0400 Body temperature 98.2 [degF] ANABELLE MAGAÑA MD Work Phone: [facility] 06-28-2024 09:56-0400 Body height 167.64 cm ANABELLE MAGAÑA MD Work Phone: [facility] 06-28-2024 09:56-0400 Body mass index (BMI) [Ratio] 25.5 kg/m2 ANABELLE MAGAÑA MD Work Phone: [facility] 06-28-2024 09:56-0400 Body weight 71.66 kg ANABELLE MAGAÑA MD Work Phone: [facility] 04-14-2024 13:19-0400 Body mass index (BMI) [Ratio] 26.16 kg/m2 Aylin Suppshahida [employer] Work Phone: [facility] 04-14-2024 13:19-0400 Body weight 75.75 kg Aylin Suppan [employer] Work Phone: [facility] 04-14-2024 13:19-0400 Diastolic blood pressure 92 mm[Hg] Aylin Suppan [employer] Work Phone: [facility] 04-14-2024 13:19-0400 Heart rate 73 /min Aylin Suppan [employer] Work Phone: [facility] 04-14-2024 13:19-0400 Respiratory rate 16 /min Aylin Suppan [employer] Work Phone: [facility] 04-14-2024 13:19-0400 SaO2% (BldA) [Mass fraction] 98 % Aylin Marcialshahida [employer] Work Phone: [facility] 04-14-2024 13:19-0400 Systolic blood pressure 160 mm[Hg] Aylinkyler Marcialshahida [employer] Work Phone: [facility] 04-06-2024 07:36-0400 Heart rate 75 /min DECEMBER ELYRIA [employer] [facility] 04-06-2024 06:29-0400 Body temperature 98.06 [degF] DECEMBER ELYRIA [employer] [facility] 04-06-2024 06:29-0400 Diastolic Blood Pressure Non-Invasive 77 mm[Hg] DECEMBER ELYRIA [employer] [facility] 04-06-2024 06:29-0400 Heart rate 72 /min DECEMBER ELYRIA [employer] [facility] 04-06-2024 06:29-0400 Respiratory rate 18 /min DECEMBER ELYRIA [employer] [facility] 04-06-2024 06:29-0400 Systolic Blood Pressure Non-Invasive 162 mm[Hg] DECEMBER ELYRIA [employer] [facility] 04-06-2024 03:19-0400 Body temperature 98.06 [degF] DECEMBER ELYRIA [employer] [facility] 04-06-2024 03:19-0400 Diastolic Blood Pressure Non-Invasive 78 mm[Hg] DECEMBER ELYRIA [employer] [facility] 04-06-2024 03:19-0400 Heart rate 53 /min DECEMBER ELYRIA [employer] [facility] 04-06-2024 03:19-0400 Respiratory rate 18 /min DECEMBER ELYRIA [employer] [facility] 04-06-2024 03:19-0400 Systolic Blood Pressure Non-Invasive 158 mm[Hg] DECEMBER ELYRIA [employer] [facility] 04-05-2024 19:08-0400 Body temperature 97.34 [degF] DECEMBER ELYRIA [employer] [facility] 04-05-2024 19:08-0400 Diastolic Blood Pressure Non-Invasive 74 mm[Hg] DECEMBER ELYRIA [employer] [facility] 04-05-2024 19:08-0400 Heart rate 59 /min DECEMBER ELYRIA [employer] [facility] 04-05-2024 19:08-0400 Respiratory rate 18 /min DECEMBER ELYRIA [employer] [facility] 04-05-2024 19:08-0400 Systolic Blood Pressure Non-Invasive 141 mm[Hg] DECEMBER ELYRIA [employer] [facility] 04-05-2024 15:20-0400 Heart rate 68 /min DECEMBER ELYRIA [employer] [facility] 04-05-2024 08:52-0400 Heart rate 80 /min DECEMBER ELYRIA [employer] [facility] 04-05-2024 06:49-0400 Heart rate 61 /min DECEMBER ELYRIA [employer] [facility] 04-05-2024 02:57-0400 Body height 170 cm DECEMBER ELYRIA [employer] [facility] 04-05-2024 02:57-0400 Body weight 76 kg DECEMBER ELYRIA [employer] [facility] 04-05-2024 02:57-0400 Body weight 26.3 kg/m2 VIOLETTA ELYRIA [employer] [facility] 04-05-2024 02:40-0400 Heart rate 61 /min VIOLETTA ELYRIA [employer] [facility] 04-05-2024 02:18-0400 Blood Pressure Cuff Size VIOLETTA ELYRIA [employer] [facility] 04-05-2024 02:18-0400 Blood Pressure Location VIOLETTA ELYRIA [employer] [facility] 04-05-2024 02:18-0400 Blood Pressure Method VIOLETTA ELYRIA [employer] [facility] 04-04-2024 21:09-0400 Blood Pressure Cuff Size VIOLETTA ELYRIA [employer] [facility] 04-04-2024 21:09-0400 Blood Pressure Location DECEMBER ELYRIA [employer] [facility] 04-04-2024 21:09-0400 Blood Pressure Method DECEMBER ELYRIA [employer] [facility] 04-04-2024 18:40-0400 Body weight 79.5 kg DECEMBER ELYRIA [employer] [facility] 02-26-2024 13:08-0400 Body mass index (BMI) [Ratio] 27.1 kg/m2 Giancarlo Kendall MD Work Phone: [facility] 02-26-2024 13:08-0400 Body weight 78.47 kg Giancarlo Kendall MD Work Phone: [facility] 02-26-2024 13:08-0400 Diastolic blood pressure 86 mm[Hg] Giancarlo Kendall MD Work Phone: [facility] 02-26-2024 13:08-0400 Heart rate 87 /min Giancarlo Kendall MD Work Phone: [facility] 02-26-2024 13:08-0400 SaO2% (BldA) [Mass fraction] 97 % Giancarlo Kendall MD Work Phone: [facility] 02-26-2024 13:08-0400 Systolic blood pressure 131 mm[Hg] Giancarlo Kendall MD Work Phone: [facility] 07-10-2023 15:31-0400 Body weight 70.31 kg Giancarlo Kendall MD Work Phone: [facility] 07-10-2023 15:31-0400 Diastolic blood pressure 70 mm[Hg] Giancarlo Kendall MD Work Phone: [facility] 07-10-2023 15:31-0400 Heart rate 80 /min Giancarlo Kendall MD Work Phone: [facility] 07-10-2023 15:31-0400 SaO2% (BldA) [Mass fraction] 97 % Giancarlo Kendall MD Work Phone: [facility] 07-10-2023 15:31-0400 Systolic blood pressure 120 mm[Hg] Giancarlo Kendall MD Work Phone: [facility] 04-09-2023 14:56-0400 Body height 170.2 cm Giancarlo Kendall MD Work Phone: [facility] 04-09-2023 14:56-0400 Body weight 71.67 kg Giancarlo Kendall MD Work Phone: [facility] 04-09-2023 14:56-0400 Diastolic blood pressure 64 mm[Hg] Giancarlo Kendall MD Work Phone: [facility] 04-09-2023 14:56-0400 Heart rate 67 /min Giancarlo Kendall MD Work Phone: [facility] 04-09-2023 14:56-0400 SaO2% (BldA) [Mass fraction] 99 % Giancarlo Kendall MD Work Phone: [facility] 04-09-2023 14:56-0400 Systolic blood pressure 120 mm[Hg] Giancarlo Kendall MD Work Phone: [facility] 01-19-2023 14:45-0400 Body weight 70.31 kg Giancarlo Kendall MD Work Phone: [facility] 01-19-2023 14:45-0400 Diastolic blood pressure 82 mm[Hg] Giancarlo Kendall MD Work Phone: [facility] 01-19-2023 14:45-0400 Heart rate 64 /min Giancarlo Knedall MD Work Phone: [facility] 01-19-2023 14:45-0400 SaO2% (BldA) [Mass fraction] 98 % Giancarlo Kendall MD Work Phone: [facility] 01-19-2023 14:45-0400 Systolic blood pressure 126 mm[Hg] Giancarlo Kendall MD Work Phone: [facility] 12-03-2022 14:37-0400 Body weight 73.48 kg Cortney Edgart[place] [employer] Work Phone: [facility] 12-03-2022 14:37-0400 Diastolic blood pressure 84 mm[Hg] Cortney [place] [employer] Work Phone: [facility] 12-03-2022 14:37-0400 Heart rate 66 /min Cortney [place] [employer] Work Phone: [facility] 12-03-2022 14:37-0400 Respiratory rate 18 /min Cortney [place] [employer] Work Phone: [facility] 12-03-2022 14:37-0400 SaO2% (BldA) [Mass fraction] 97 % Cortney [place] [employer] Work Phone: [facility] 03-22-2023 14:37-0400 Systolic blood pressure 138 mm[Hg] Cortney Violetta [employer] Work Phone: [facility] 10-21-2022 13:35-0500 Body height 170.2 cm Giancarlo Kendall MD Work Phone: [facility] 10-21-2022 13:35-0500 Body weight 71.22 kg Giancarlo Kendall MD Work Phone: [facility] 10-21-2022 13:35-0500 Diastolic blood pressure 76 mm[Hg] Giancarlo Kendall MD Work Phone: [facility] 10-21-2022 13:35-0500 Heart rate 59 /min Giancarlo Kendall MD Work Phone: [facility] 10-21-2022 13:35-0500 SaO2% (BldA) [Mass fraction] 97 % Giancarlo Kendall MD Work Phone: [facility] 10-21-2022 13:35-0500 Systolic blood pressure 116 mm[Hg] Giancarlo Kendall MD Work Phone: [facility] 07-21-2022 08:46-0500 Body height 170.2 cm Giancarlo Kendall MD Work Phone: [facility] 07-21-2022 08:46-0500 Body weight 71.67 kg Giancarlo Kendall MD Work Phone: [facility] 07-21-2022 08:46-0500 Diastolic blood pressure 60 mm[Hg] Giancarlo Kendall MD Work Phone: [facility] 07-21-2022 08:46-0500 Heart rate 64 /min Giancarlo Kendall MD Work Phone: [facility] 07-21-2022 08:46-0500 SaO2% (BldA) [Mass fraction] 96 % Giancarlo Kendall MD Work Phone: [facility] 07-21-2022 08:46-0500 Systolic blood pressure 108 mm[Hg] Giancarlo Kendall MD Work Phone: [facility] 06-03-2022 14:12-0400 Body temperature 98.71 [degF] Krissy Athy PA-C Work Phone: [facility] 06-03-2022 14:12-0400 Body weight 72.94 kg Krissy Athy PA-C Work Phone: [facility] 06-03-2022 14:12-0400 Diastolic blood pressure 70 mm[Hg] Krissy Athy PA-C Work Phone: [facility] 06-03-2022 14:12-0400 Heart rate 59 /min Krissy Athy PA-C Work Phone: [facility] 06-03-2022 14:12-0400 Respiratory rate 18 /min Krissy Athy PA-C Work Phone: [facility] 06-03-2022 14:12-0400 SaO2% (BldA) [Mass fraction] 98 % Krissy Athy PA-C Work Phone: [facility] 06-03-2022 14:12-0400 Systolic blood pressure 122 mm[Hg] Krissy Athy PA-C Work Phone: [facility] 05-15-2022 12:50-0400 Body height 170.2 cm Giancarlo Kendall MD Work Phone: [facility] 05-15-2022 12:50-0400 Body weight 70.31 kg Giancarlo Kendall MD Work Phone: [facility] 05-15-2022 12:50-0400 Diastolic blood pressure 70 mm[Hg] Giancarlo Kendall MD Work Phone: [facility] 05-15-2022 12:50-0400 Heart rate 66 /min Giancarlo Kendall MD Work Phone: [facility] 05-15-2022 12:50-0400 SaO2% (BldA) [Mass fraction] 98 % Giancarlo Kendall MD Work Phone: [facility] 05-15-2022 12:50-0400 Systolic blood pressure 114 mm[Hg] Giancarlo Kendall MD Work Phone: [facility] 05-05-2022 10:58-0400 Body weight 68.95 kg NA Hirsch PA-C Work Phone: [facility] 05-05-2022 10:58-0400 Diastolic blood pressure 78 mm[Hg] NA Hirsch PA-C Work Phone: [facility] 05-05-2022 10:58-0400 Heart rate 61 /min NA Hirsch PA-C Work Phone: [facility] 05-05-2022 10:58-0400 Respiratory rate 16 /min NA Hirsch PA-C Work Phone: [facility] 05-05-2022 10:58-0400 SaO2% (BldA) [Mass fraction] 99 % NA Hirsch PA-C Work Phone: [facility] 05-05-2022 10:58-0400 Systolic blood pressure 130 mm[Hg] NA Hirsch PA-C Work Phone: [facility] 03-11-2022 14:08-0400 Body weight 63.5 kg Giancarlo Kendall MD Work Phone: [facility] 03-11-2022 14:08-0400 Diastolic blood pressure 80 mm[Hg] Giancarlo Kendall MD Work Phone: [facility] 03-11-2022 14:08-0400 Heart rate 60 /min Giancarlo Kendall MD Work Phone: [facility] 03-11-2022 14:08-0400 Respiratory rate 16 /min Giancarlo Kendall MD Work Phone: [facility] 03-11-2022 14:08-0400 SaO2% (BldA) [Mass fraction] 99 % Giancarlo Kendall MD Work Phone: [facility] 03-11-2022 14:08-0400 Systolic blood pressure 132 mm[Hg] Giancarlo Kendall MD Work Phone: [facility] 02-26-2022 11:43-0400 Diastolic blood pressure 80 mm[Hg] Saida Lowery APRN.CNP Work Phone: [facility] 02-26-2022 11:43-0400 Heart rate 70 /min Saida Haagen CRYPTANALYST.PAPER BAG MAKER Work Phone: [facility] 02-26-2022 11:43-0400 Respiratory rate 18 /min Saida Lowery CRYPTANALYST.PAPER BAG MAKER Work Phone: [facility] 02-26-2022 11:43-0400 SaO2% (BldA) [Mass fraction] 97 % Saida Haagen CRYPTANALYST.PAPER BAG MAKER Work Phone: [facility] 02-26-2022 11:43-0400 Systolic blood pressure 132 mm[Hg] Saida Lowery CRYPTANALYST.PAPER BAG MAKER Work Phone: [facility] 02-06-2022 16:00-0400 Body weight 65.77 kg Giancarlo Kendall MD Work Phone: [facility] 02-06-2022 16:00-0400 Diastolic blood pressure 62 mm[Hg] Giancarlo Kendall MD Work Phone: [facility] 02-06-2022 16:00-0400 Heart rate 60 /min Giancarlo Kendall MD Work Phone: [facility] 02-06-2022 16:00-0400 Systolic blood pressure 118 mm[Hg] Giancarlo Kendall MD Work Phone: [facility] 01-08-2022 14:34-0400 Body weight 70.31 kg Giancarlo Kendall MD Work Phone: [facility] 01-08-2022 14:34-0400 Diastolic blood pressure 72 mm[Hg] Giancarlo Kendall MD Work Phone: [facility] 01-08-2022 14:34-0400 Heart rate 72 /min Giancarlo Kendall MD Work Phone: [facility] 01-08-2022 14:34-0400 Systolic blood pressure 132 mm[Hg] Giancarlo Kendall MD Work Phone: [facility] 01-06-2022 10:06-0400 Body height 170.[address] [facility] 01-06-2022 10:06-0400 Body weight 69.[address] [facility] 12-13-2021 16:15-0400 Body temperature 98.2 [degF] Treatment 1 [facility] 12-13-2021 16:15-0400 Diastolic blood pressure 78 mm[Hg] Treatment 1 [facility] 12-13-2021 16:15-0400 Heart rate 70 /min Treatment 1 [facility] 12-13-2021 16:15-0400 Respiratory rate 18 /min Treatment 1 [facility] 12-13-2021 16:15-0400 SaO2% (BldA) [Mass fraction] 96 % Treatment 1 [facility] 12-13-2021 16:15-0400 Systolic blood pressure 123 mm[Hg] Treatment 1 [facility] Encounters Encounter Date Encounter Type Care Provider Facility Start: 05-24-[address] [facility] ty:[facility] Start: 05-24-2025 Evaluation and manag ement of inpatient [facility] Ambulatory Start: 04-18-2025 End: 05-16-2025 Telephone encounter Giancarlo Kendall MD Work Phone: [facility] [place] Comment on above: Appointment; Orders Start: 04-17-2025 End: 04-17-2025 ambulatory GIANCARLO KENDALL Facility:[facility] Start: 04-17-2025 End: 04-17-2025 Telemedicine consultation with patient Giancarlo Kendall MD Work Phone: [facility] [place] Start: 04-17-2025 End: 04-17-2025 Telephone encounter Peyton Peguero RN [facility] Comment on above: S/P PTCA (percutaneo us transluminal coronary angioplasty) (Primary Dx); Coronary artery disease involving mcgrath heart without angina pectoris, unspecified vessel or lesion type; Anxiety with depression; Liver replaced by transplant (HCC); Paroxysmal atrial fibrillation (HCC); Essential hypertension; Non-ischemic cardiomyopathy (HCC); Mixed hyperlipidemia; Sarcoidosis; PTSD (post-traumatic stress disorder); S/P liver transplant (HCC) Start: 04-11-2025 End: 04-11-2025 Telephone encounter Giancarlo Kendall MD Work Phone: [facility] Comment on above: Patient Question; Pa tient Update Start: 04-06-2025 ambulatory GRACIELA TRINIDAD Facility :[facility] Start: 04-06-2025 Evaluation and manag ement of inpatient THO DUNNE [facility] Ambulatory Start: 04-06-2025 End: 04-08-2025 Evaluation and management of inpatient [facility] Observation [facility] Start: 04-06-2025 Initial observation care/day 70 minutes Artem Kwong [facility] Start: 04-06-2025 End: 04-08-2025 observation encounter NO FAMILY DOCTOR [facility] Work Phone: Start: 11-28-2024 End: 11-28-2024 Refill Giancarlo Kendall MD Work Phone: [facility] [place] Comment on above: Refill Request Start: 11-18-2024 End: 11-18-2024 Telemedicine consultation with patient Giancarlo Kendall MD Work Phone: [facility] [place] Start: 11-18-2024 End: 11-18-2024 ambulatory Giancarlo Kendall MD Work Phone: [facility] [place] Comment on above: NO SHOW (Primary Dx) Start: 11-17-2024 End: 11-17-2024 ambulatory THOMAS Pineda JUJU Facility:[facility] Start: 11-10-2024 End: 11-10-2024 ambulatory [facility] Facility:[facility] Start: 11-03-2024 End: 11-03-2024 Refill Liver Txp Coordinator Work Phone: [facility] Comment on above: Rx Refills Start: 11-02-2024 End: 11-04-2024 Refill Giancarlo Kendall MD Work Phone: [facility] [place] Comment on above: Refill Request Start: 10-20-2024 End: 11-18-2024 Telephone encounter Giancarlo Kendall MD Work Phone: [facility] [place] Comment on above: Patient requesting c all back Start: 10-14-2024 End: 10-14-2024 ambulatory Giancarlo Kendall MD Work Phone: [facility] [place] Comment on above: NO SHOW (Primary Dx) Start: 10-14-2024 End: 10-14-2024 Telemedicine consultation with patient Giancarlo Kendall MD Work Phone: [facility] [place] Start: 09-19-2024 End: 09-19-2024 Orders Only Peyton Peguero RN [facility] Comment on above: Liver replaced by tr ansplant (HCC) (Primary Dx) Start: 06-28-2024 End: 06-28-2024 Emergency department patient visit ANABELLE MAGAÑA MD Work Phone: [facility] Work Phone: Start: 06-28-2024 Evaluation and manag ement of inpatient SCRIPTING 7 [facility] Ambulatory Start: 04-21-2024 Telephone encounter Liver Txp Coordinator Work Phone: Transplant Center Start: 04-18-2024 Telephone encounter Peyton Fernandes [facility] Comment on above: 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 clinic vis it Start: 04-14-2024 End: 04-14-2024 Office outpatient visit 15 minutes Aylin Saravia CRYPTANALYST.PAPER BAG MAKER Work Phone: [facility] [place] Comment on above: S/P liver transplant (HCC) (Primary Dx); Nausea and vomiting, unspecified vomiting type; 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); Anxiety with depression Start: 04-07-2024 Patient Outreach Giancarlo ludwig MD Work Phone: [facility] [place] Comment on above: Transition Of Care Start: 04-05-2024 Telephone encounter Giancarlo Kendall MD Work Phone: [facility] [place] Comment on above: Patient Update Start: 04-04-2024 End: 04-06-2024 Evaluation and management of inpatient VIOLETTA Lim MICHAEL CRYPTANALYST-PAPER BAG MAKER [facility] Start: 02-26-2024 End: 02-26-2024 Patient encounter procedure Giancarlo Kendall MD Work Phone: [facility] [place] Comment on above: Paroxysmal atrial fi brillation (HCC) (Primary Dx); Essential hypertension; Non-ischemic cardiomyopathy (HCC); Mixed hyperlipidemia; Lung nodule; S/P liver transplant (HCC); BPH with obstruction/lower urinary tract symptoms; Hypothyroidism, unspecified type; Other osteoporosis without current pathological fracture; PTSD (post-traumatic stress disorder); Gastroesophageal reflux disease without esophagitis; Anxiety; Liver replaced by transplant (HCC); Osteoporosis, unspecified osteoporosis type, unspecified pathological fracture presence; SOB (shortness of breath); Chest wall pain Start: 02-23-2024 Refill Giancarlo Kendall MD Work Phone: [facility] [place] Comment on above: Refill Request Start: 01-26-2024 Refill Giancarlo Kendall MD Work Phone: [facility] [place] Comment on above: Refill Request Start: 12-31-2023 Orders Only Peyton Peguero RN [facility] Comment on above: Liver replaced by tr ansplant (HCC) (Primary Dx) Return Call Request Start: 12-25-2023 Telephone encounter Giancarlo Kendall MD Work Phone: [facility] [place] Comment on above: having anxiety issue Start: 11-16-2023 Refill Giancarlo Kendall MD Work Phone: [facility] [place] Comment on above: Refill Request Start: 10-23-2023 Refill Giancarlo Kendall MD Work Phone: [facility] [place] Comment on above: Refill Request Start: 08-13-2023 End: 08-13-2023 ambulatory Giancarlo Kendall MD Work Phone: [facility] Comment on above: NO SHOW (Primary Dx) Start: 08-13-2023 End: 08-13-2023 Telemedicine consultation with patient Giancarlo Kendall MD Work Phone: [facility] Start: 07-28-2023 Telephone encounter Giancarlo Kendall MD Work Phone: [facility] [place] Comment on above: Patient Update Start: 07-10-2023 End: 07-10-2023 Patient encounter procedure Giancarlo Kendall MD Work Phone: [facility] [place] Comment on above: Essential hypertensi on (Primary Dx); Encounter for immunization; PFO (patent foramen ovale); Paroxysmal atrial fibrillation (HCC); Non-ischemic cardiomyopathy (HCC); Mixed hyperlipidemia; Lung nodule; Splenomegaly; Bilateral inguinal hernia without obstruction or gangrene, recurrence not specified; Chronic hepatitis C without hepatic coma (HCC); Hepatitis C virus infection without hepatic coma, unspecified chronicity; Gastroesophageal reflux disease, unspecified whether esophagitis present; Stress hyperglycemia; PTSD (post-traumatic stress disorder); Anxiety Start: 07-01-2023 ambulatory Giancarlo Kendall MD Work Phone: [facility] [place] Comment on above: Vomiting Start: 05-04-2023 Orders Only Cortney parsons CRYPTANALYST.PAPER BAG MAKER Work Phone: [facility] Pulmonary Comment on above: Encounter for screen ing for lung cancer (Primary Dx); History of tobacco use Start: 05-01-2023 End: 05-01-2023 Subsequent hospital visit by physician Ct [facility] W[facility] (I-Stat) Work Phone: Cat Scan Comment on above: History of tobacco u se [Z87.891] Start: 04-30-2023 Telephone encounter Cortney kc APRN.PAPER BAG MAKER Work Phone: Pulmonary Medicine Start: 04-22-2023 Telephone encounter Giancarlo Kendall MD Work Phone: [facility] [place] Comment on above: Patient Update Start: 04-21-2023 Telephone encounter Giancarlo Kendall MD Work Phone: [facility] [place] Comment on above: medciation issue Start: 04-10-2023 Telephone encounter Giancarlo Kendall MD Work Phone: [facility] [place] Comment on above: Results Start: 04-09-2023 End: 04-09-2023 Patient encounter procedure Giancarlo Kendall MD Work Phone: [facility] [place] Comment on above: S/P liver transplant (HCC) (Primary Dx); Urinary retention; Renal insufficiency; Pain in both hands; Screening for lung cancer; Need for hepatitis C screening test; Need for vaccination Start: 02-08-2023 Telephone encounter Krislyn P Aberegg PA Work Phone: [facility] Comment on above: Results Start: 01-20-2023 Telephone encounter Patt Lim Juan Miguel Comment on above: Social Work Services Start: 01-19-2023 End: 01-19-2023 Subsequent hospital visit by physician Alisia [facility] [place] Work Phone: Radiology Comment on above: Pain in both hands [ M79.641, M79.642] Start: 01-19-2023 End: 01-19-2023 Patient encounter procedure Giancarlo Kendall MD Work Phone: Family [facility] [place] Comment on above: PFO (patent foramen ovale) (Primary Dx); Non-ischemic cardiomyopathy (HCC); Paroxysmal atrial fibrillation (HCC); Mixed hyperlipidemia; Essential hypertension; Gastroesophageal reflux disease, unspecified whether esophagitis present; S/P liver transplant (HCC); Adjustment disorder with mixed anxiety and depressed mood; PTSD (post-traumatic stress disorder); Pain in both hands Start: 01-12-2023 Telephone encounter Giancarlo Kendall MD Work Phone: [facility] Comment on above: Appointment Start: 01-08-2023 Telephone encounter Liver Txp Coordinator Work Phone: Transplant Center Comment on above: Follow Up Start: 01-05-2023 End: 01-05-2023 Patient encounter procedure Juan Carlos Franco Work Phone: Podiatry Comment on above: Skew foot deformity, unspecified laterality (Primary Dx); Plantar wart of right foot Start: 01-01-2023 Orders Only Juan Carlos gautam Work Phone: Podiatry Comment on above: Bilateral foot pain (Primary Dx) Start: 12-03-2022 End: 12-03-2022 Patient encounter procedure Cortney Shipley APRN.CNP Work Phone: Pulmonary Medicine Comment on above: Encounter for screen ing for lung cancer (Primary Dx); History of tobacco use Start: 10-21-2022 End: 10-21-2022 Subsequent hospital visit by physician Alisia [facility] [place] Work Phone: Radiology Comment on above: Rib pain on right si de [R07.81] Start: 10-21-2022 Telephone encounter Liver Txp Coordinator Work Phone: [facility] Comment on above: Discussion Start: 10-21-2022 End: 10-21-2022 Patient encounter procedure Giancarlo Kendall MD Work Phone: [facility] [place] Comment on above: Essential hypertensi on (Primary Dx); Mixed hyperlipidemia; S/P liver transplant (HCC); Chronic hepatitis C without hepatic coma (HCC); Urinary retention; Hypothyroidism, unspecified type; Sarcoidosis; PTSD (post-traumatic stress disorder); PFO (patent foramen ovale); Non-ischemic cardiomyopathy (HCC); Paroxysmal atrial fibrillation (HCC); History of tobacco use; Rib pain on right side Start: 10-17-2022 Telephone encounter Foster Ogden MD Work Phone: Urology Comment on above: Opened In Error Start: 09-24-2022 End: 09-24-2022 Patient encounter procedure Gloria Cristina APRN.PAPER BAG MAKER Work Phone: Psychiatry Comment on above: NO SHOW (Primary Dx) Start: 09-09-2022 Telephone encounter Sakshi Mari [facility] Comment on above: Follow Up Patient Request Start: 08-20-2022 Refill Peyton Peguero RN [facility] Comment on above: Refill Request Start: 08-19-2022 Refill Giancarlo Kendall MD Work Phone: [facility] [place] Comment on above: Refill Request Start: 08-12-2022 Telephone encounter Giancarlo Kendall MD Work Phone: [facility] [place] Comment on above: Patient Question Start: 07-21-2022 End: 07-21-2022 Patient encounter procedure Giancarlo Kendall MD Work Phone: [facility] [place] Comment on above: Neuromyopathy (HCC) (Primary Dx); Need for influenza vaccination; Essential hypertension; S/P liver transplant (HCC); PTSD (post-traumatic stress disorder) Start: 06-23-2022 Telephone encounter Peyton Peguero R N [facility] Comment on above: Results Opened In Error applying for disabil ity Start: 06-23-2022 ambulatory Giancarlo Kendall Facility:[facility] Start: 06-11-2022 End: 06-11-2022 Patient encounter procedure Gloria Cristina APRN.PAPER BAG MAKER Work Phone: Psychiatry Comment on above: APPOINTMENT CANCELLE D (Primary Dx) Start: 06-03-2022 End: 06-03-2022 Patient encounter procedure Krissy MILES-C Work Phone: [facility] Comment on above: Pain in salivary gla nd region (Primary Dx) Start: 06-03-2022 Telephone encounter Krissy braswell PA-C Work Phone: [facility] Comment on above: Results Start: 05-15-2022 End: 05-15-2022 Patient encounter procedure Giancarlo Kendall MD Work Phone: Family [facility] [place] Comment on above: Paresthesia (Primary Dx); Spasm; Neuromyopathy (HCC); Essential hypertension; PTSD (post-traumatic stress disorder) Start: 05-13-2022 Telephone encounter Giancarlo Kendall MD Work Phone: [facility] Comment on above: fax PT orders to out side facility Start: 05-07-2022 Telephone encounter Giancarlo Kendall MD Work Phone: [facility] [place] Comment on above: Patient Question Start: 05-05-2022 End: 05-05-2022 Patient encounter procedure Carina Hirsch PA-C Work Phone: Family [facility] [place] Comment on above: Chronic bilateral th oracic back pain (Primary Dx); Chronic bilateral low back pain without sciatica; Chronic neck pain; Adjustment disorder with mixed anxiety and depressed mood; Anxiety with depression Start: 04-28-2022 Telephone encounter Giancarlo Kendall MD Work Phone: [facility] [place] Comment on above: Patient Question Start: 04-23-2022 Refill Giancarlo Kendall MD Work Phone: [facility] [place] Comment on above: Refill Request Start: 04-02-2022 Telephone encounter Giancarlo Kendall MD Work Phone: [facility] [place] Comment on above: Patient Question Start: 03-18-2022 Telephone encounter Sujata Linares [facility] Physical Therapy Comment on above: Patient Question Start: 03-13-2022 Chart abstracting Giancarlo Heath MD Work Phone: [facility] [place] Start: 03-11-2022 End: 03-11-2022 Patient encounter procedure Giancarlo Kendall MD Work Phone: [facility] [place] Comment on above: Upper back pain (Natalya muna Dx); Lumbar back pain; Chronic constipation; Essential hypertension; Anxiety with depression Start: 03-06-2022 Telephone encounter Giancarlo Kendall MD [facility] Phone[facility] Comment on above: Patient Update Start: 03-03-2022 Telephone encounter Giancarlo Kendall MD Work Phone: [facility] Comment on above: Medication Question Start: 02-26-2022 End: 02-26-2022 Subsequent hospital visit by physician Alisia [facility] [place] Work Phone: Radiology Comment on above: Midline thoracic ted k pain, unspecified chronicity [M54.6] Start: 02-26-2022 End: 02-26-2022 Patient encounter procedure Saida Lowery APRN.PAPER BAG MAKER Work Phone: [facility] Comment on above: Midline thoracic ted k pain, unspecified chronicity (Primary Dx) Start: 02-25-2022 Telephone encounter Saida dunbar APRN.PAPER BAG MAKER Work Phone: [facility] Comment on above: Orders Start: 02-19-2022 Refill Giancarlo Kendall MD Work Phone: [facility] Comment on above: Refill Request; Refi ll Request Start: 02-13-2022 Refill Giancarlo Kendall MD Work Phone: [facility] Comment on above: Refill Request Start: 02-06-2022 End: 02-06-2022 Subsequent hospital visit by physician Alisia [facility] [place] Work Phone: Radiology Comment on above: Neck pain [M54.2] Start: 02-06-2022 End: 02-06-2022 Patient encounter procedure Giancarlo Kendall MD Work Phone: [facility] [place] Comment on above: Neck pain (Primary D x); Paroxysmal atrial fibrillation (HCC); Essential hypertension; S/P liver transplant (HCC) Start: 2022 Telephone encounter Ash vargas PA-C Work Phone: Urology Comment on above: Appointment Cancelle d Start: 01-15-2022 Telephone encounter Giancarlo Kendall MD Work Phone: [facility] [place] Comment on above: Patient Question Start: 01-10-2022 Telephone encounter Giancarlo Kendall MD Work Phone: [facility] [place] Comment on above: Results Start: 01-09-2022 End: 01-09-2022 Subsequent hospital visit by physician Mri Radio [facility] (I-Stat/1.5t) Work Phone: Radiology Comment on above: Cognitive impairment , mild, so stated [G31.84] Start: 01-08-2022 End: 01-08-2022 Patient encounter procedure Giancarlo Kendall MD Work Phone: [facility] [place] Comment on above: Flank pain (Primary Dx); Pyuria; Microscopic hematuria; Essential hypertension Start: 01-06-2022 End: 01-06-[address] Nutrition Therapy Comment on above: Patient Education; A ssessment Start: 01-01-2022 Telephone encounter Giancarlo Kendall MD Work Phone: [facility] [place] Comment on above: Patient Update Start: 12-25-2021 Telephone encounter Giancarlo Kendall MD Work Phone: [facility] [place] Comment on above: Results Start: 12-23-2021 Telephone encounter Giancarlo Kendall MD Work Phone: [facility] [place] Comment on above: Orders Start: 12-23-2021 End: 12-23-2021 Subsequent hospital visit by physician Xr [facility] [place] Work Phone: Radiology Comment on above: Neck pain [M54.2] Start: 12-13-2021 End: 12-13-2021 ambulatory Treatment Room [place] 1 INFUSION Comment on above: Encounter for remova l of peripherally inserted central catheter (PICC) Start: 12-10-2021 Orders Only Jose Ramon Hudson MD Work Phone: [facility] Comment on above: Urinary tract infect ion without hematuria, site unspecified (Primary Dx) Lab Orders; Patient Update; CoPat Management Start: 08-16-2021 Telephone encounter Giancarlo Kendall MD Work Phone: [facility] [place] Comment on above: Patient Update Start: 04-11-2021 Telephone encounter Carina Hirsch PA-C Work Phone: [facility] [place] Comment on above: Medications/pharmacy change Procedures Date Procedure Procedure Detail Performing Clinician Start: 04-07-2025 Catheterization of left heart NO DOCTOR Start: 04-07-2025 Radionuclide myocardial perfusion study NO DOCTOR Start: 04-06-2025 Echocardiography NO DOCTOR Start: 04-06-2025 H/O: liver recipient H/O: liver recipient Dr Connor Platt DO Mobile Phone: Start: 04-05-2025 X-ray of chest, PA and lateral views NO DOCTOR Start: 06-28-2024 Plain X-ray of left hand ANABELLE MAGAÑA MD Work Phone: Start: 06-28-2024 Plain X-ray of left forearm ANABELLE MAGAÑA MD Work Phone: Start: 06-28-2024 Plain X-ray of left wrist ANABELLE MAGAÑA MD Work Phone: Start: 04-05-2024 H/O: liver recipient VIOLETTA RODRIGUEZ CRYPTANALYST-PAPER BAG MAKER Start: 02-26-2024 Ecg routine ecg w/least 12 lds i&r only Giancarlo Kendall MD Work Phone: Start: 07-10-2023 INFLUENZA VACCINE, AGE 6 MO - 64 YR, QUADRIVALENT (AFLURIA, FLULAVAL, FLUZONE) Giancarlo Kendall MD Work Phone: Start: 05-01-2023 CT LUNG SCREEN WO MIROSLAVA Shipley CRYPTANALYST.PAPER BAG MAKER Work Phone: Start: 05-01-2023 Lipid 1996 panel - Serum or Plasma Giancarlo Kendall MD Work Phone: Start: 04-09-2023 [employer] COVID-19 BIVALENT VACCINE, AGE 12+ YR Giancarlo Kendall MD Work Phone: Start: 01-19-2023 Radex hand minimum 3 views Giancarlo ludwig MD Work Phone: Start: 10-21-2022 Radex ribs uni w/posteroant ch minimum 3 views Giancarlo Kendall MD Work Phone: Start: 07-21-2022 INFLUENZA VACCINE QUADRIVALENT 6 MO - 64 YRS IM Giancarlo Kendall MD Work Phone: Start: 06-03-2022 STREP A MOLECULAR (POC) Krissy Burrows PA-C Work Phone: Start: 02-26-2022 Radex spine thoracic 3 views Saida Lowery CRYPTANALYST.PAPER BAG MAKER Work Phone: Start: 02-06-2022 Radex spine cervical 4 or 5 views Giancarlo Kendall MD Work Phone: Start: 01-09-2022 Mri brain brain stem w/o contrast material Giancarlo Kendall MD Work Phone: Start: 01-08-2022 Urnls dip stick/tablet rgnt auto w/o microscopy Giancarlo Kendall MD Work Phone: Start: 12-23-2021 Radex spine cervical 4 or 5 views Giancarlo Kendall MD Work Phone: Start: 12-23-2021 Adult depression screening assessment Giancarlo Kendall MD Work Phone: Start: 11-22-2020 Adult depression screening assessment Jose Ramon Hudson MD Work Phone: Start: 01-31-2019 Colonoscopy Jose Ramon Hudson MD Work Phone: Start: 10-05-2015 H/O: liver recipient S/P liver transplant Jose Ramon Hudson MD Work Phone: Start: 09-14-2015 End: 09-14-[address] Connor Beltran ead DO Mobile Phone: H/O: liver recipient S/P liver t ransplant (HCC) Giancarlo Kendall MD Work Phone: H/O: liver recipient S/P liver t ransplant (HCC) Cristy Varela RD H/O: liver recipient S/P liver t ransplant (HCC) Giancarlo Kendall MD Work Phone: H/O: liver recipient Liver repla wilberto by transplant (HCC) Giancarlo Kendall MD Work Phone: H/O: liver recipient Liver repla wilberto by transplant (HCC) Giancarlo Kendall MD Work Phone: H/O: liver recipient S/P liver t ransplant (HCC) Giancarlo Kendall MD Work Phone: H/O: liver recipient Liver repla wilberto by transplant (HCC) Giancarlo Kendall MD Work Phone: H/O: liver recipient Liver repla wilberto by transplant (HCC) Peyton Peguero RN H/O: liver recipient S/P liver t ransplant (HCC) Giancarlo Kendall MD Work Phone: H/O: liver recipient Liver repla wilberto by transplant (HCC) Liver Txp Coordinator Work Phone: H/O: liver recipient S/P liver t ransplant (HCC) Giancarlo Kendall MD Work Phone: H/O: liver recipient S/P liver t ransplant (HCC) Giancarlo Kendall MD Work Phone: H/O: liver recipient Liver repla wilberto by transplant (HCC) Giancarlo Kendall MD Work Phone: H/O: liver recipient Liver repla wilberto by transplant (HCC) Peyton Peguero RN H/O: liver recipient S/P liver t ransplant (HCC) Giancarlo Kendall MD Work Phone: H/O: liver recipient S/P liver t ransplant (HCC) Aylin Saravia CRYPTANALYST.PAPER BAG MAKER Work Phone: H/O: liver recipient Liver repla wilberto by transplant (HCC) Peyton Peguero RN H/O: liver recipient Liver repla wilberto by transplant (HCC) Liver Txp Coordinator Work Phone: H/O: liver recipient Liver repla wilberto by transplant (HCC) Giancarlo Kendall MD Work Phone: H/O: liver recipient Liver repla wilberto by transplant (HCC) Giancarlo Kendall MD Work Phone: Plan of Treatment Date Care Activity Detail Author Start: 01-31-2029 Colonoscopy COLONOSCOPY [facility] Start: 01-31-2029 COLORECTAL CANCER SCREENING COLORECTAL CANCER SCREENING [facility] Start: 05-01-2028 Lipid 1996 panel - Serum or Plasma Lipid Screening [facility] Start: 05-01-2028 Lipid panel Lipid Screening [facility] Start: 05-01-2028 LIPID SCREEN LIPID SCREEN [facility] Start: 02-03-2028 LIPID SCREEN LIPID SCREEN [facility] Start: 12-04-2027 LIPID SCREEN LIPID SCREEN [facility] Start: 05-26-2027 LIPID SCREEN LIPID SCREEN [facility] Start: 01-08-2027 LIPID SCREEN LIPID SCREEN [facility] Start: 12-30-2026 Diabetes Screening Diabetes Screening [facility] Start: 08-16-2026 LIPID SCREEN LIPID SCREEN [facility] Start: 07-10-2026 Diabetes Screening Diabetes Screening [facility] Start: 05-01-2026 DIABETES SCREEN DIABETES SCREEN [facility] Start: 05-01-2026 Diabetes Screening Diabetes Screening [facility] Start: 04-17-2026 Annual PCP Team Chronic Disease Visit Annual PCP Team Chronic Disease Visit [facility] Start: 04-09-2026 DIABETES SCREEN DIABETES SCREEN [facility] Start: 03-29-2026 PROSTATE CANCER SCREENING DISCUSSION PROSTATE CANCER SCREENING DISCUSSION [facility] Start: 03-29-2026 Prostate specific antigen measurement Prostate Cancer Screening Discussion [facility] Start: 02-06-2026 DIABETES SCREEN DIABETES SCREEN [facility] Start: 12-03-2025 DIABETES SCREEN DIABETES SCREEN [facility] Start: 11-18-2025 Annual PCP Team Chronic Disease Visit Annual PCP Team Chronic Disease Visit [facility] Start: 10-21-2025 DIABETES SCREEN DIABETES SCREEN [facility] Start: 10-14-2025 Annual PCP Team Chronic Disease Visit Annual PCP Team Chronic Disease Visit [facility] Start: 05-26-2025 DIABETES SCREEN DIABETES SCREEN [facility] Start: 05-15-2025 Influenza [facility] Start: 04-18-2025 DIABETES SCREEN DIABETES SCREEN [facility] Start: 04-17-2025 End: 04-17-2025 ambulatory 04/17/2025 2:00 PM EDT [facility] [address] [place], [place] [id number] Giancarlo Kendall MD [address] [place], [place] [id number] VIDEO VISIT: ER F/U [facility] 04/06/25-04/07/25: chest pain, increased troponin, stent placement, pt does not have tranportation-in [facility] Comment on above: VIDEO VISIT: ER F/U [facility] -04/07/25: chest pain, increased troponin, stent placement, pt does not have tranportation-in [facility] Start: 04-17-2025 End: 07-17-2025 Lipid 1996 panel - Serum or Plasma LIPID PANEL, FASTING Lab Routine S/P PTCA (percutaneous transluminal coronary angioplasty) Coronary artery disease involving mcgrath heart without angina pectoris, unspecified vessel or lesion type Expected: 04/17/2025, Expires: 07/17/2025 [facility] Work Phone: Comment on above: Expected: 04/17/2025, Expires: Start: 04-08-2025 Patient discharge [facility] Start: 04-07-2025 Cardiac rehabilitation - phase 2 [facility] Start: 04-07-2025 Radionuclide myocardial perfusion study [facility] Start: 04-06-2025 Referral to valet attendant [facility] Start: 04-06-2025 Taking patient vital signs [facility] Start: 04-06-2025 Documentation procedure [facility] Start: 04-06-2025 Admission procedure [facility] Start: 04-06-2025 Hospital admission [facility] Start: 04-06-2025 Echocardiography [facility] Echocardiogram Complete [facility] Start: 04-06-2025 Hospital admission, emergency, from emergency room [facility] Start: 02-25-2025 Annual PCP Team Chronic Disease Visit Annual PCP Team Chronic Disease Visit [facility] Start: 02-14-2025 DIABETES SCREEN DIABETES SCREEN [facility] Start: 01-08-2025 DIABETES SCREEN DIABETES SCREEN [facility] Start: 12-23-2024 DIABETES SCREEN DIABETES SCREEN [facility] Start: 12-09-2024 DIABETES SCREEN DIABETES SCREEN [facility] Start: 08-13-2024 Annual PCP Team Chronic Disease Visit Annual PCP Team Chronic Disease Visit [facility] Start: 07-10-2024 Annual PCP Team Chronic Disease Visit Annual PCP Team Chronic Disease Visit [facility] Start: 07-10-2024 BP Controlled (<130/80) BP Controlled (<130/80) [facility] Start: 07-07-2024 Urine microalbumin profile [facility] nigel Start: 06-28-2024 CT cervical spine without contrast CT Cervical Spine WO [facility] Start: 06-28-2024 CT of head without contrast CT Head WO [facility] Start: 06-28-2024 CT of thorax, abdomen and pelvis with contrast CT Chest/Abd/Pelv W T/L Recons [facility] Start: 05-15-2024 Covid-19 Vaccine ( season) Covid-19 Vaccine ( season) [facility] Start: 05-15-2024 Influenza vaccination Influenza Vaccine (#1) [facility] Start: 05-12-2024 End: 05-12-2024 Patient encounter procedure 05/12/2024 12:40 PM EDT Office Visit [facility] [place] [address] [place], [place] [phone] Aylin Saravia APRN.PAPER BAG MAKER [address] [place], [place] [address] 4 week nausa f/u [facility] Comment on above: 4 week nausa f/u Start: 05-04-2024 End: 06-02-2024 CT LUNG SCREEN WO IVCON CT LUNG SCREEN WO IVCON Radiology Routine Encounter for screening for lung cancer History of tobacco use Expected: 05/04/2024, Expires: 06/02/2024 [facility] Work Phone: Comment on above: Expected: 05/04/2024, Expires: Start: 05-01-2024 Influenza vaccination LUNG CANCER SCREENING [facility] Start: 05-01-2024 Screening for malignant neoplasm of lung Lung Cancer Screening [facility] Start: 04-20-2024 End: 04-20-2024 Patient encounter procedure 04/20/2024 11:30 AM EDT Office Visit [facility]plant Center [address] [id number] Public Health Policy Analyst, Liver [address] [place], [place] [phone] LIVER TRANSPLANT FOLLOW UP APPOINTMENT [facility] Comment on above: LIVER TRANSPLANT FOLLOW UP APPOINTMENT Start: 04-14-2024 End: 04-14-2024 Patient encounter procedure 04/14/2024 1:20 PM EDT Office Visit [facility] [place] [address] [place], [place] [phone] Aylin Saravia APRN.PAPER BAG MAKER [address] [place], [place] [phone] Brandie Dunn 04/07 DC Pancreatitis, TCM f./u. [facility] [place] Comment on above: Brandie Dunn 04/07 DC Pancreatitis, T CM f./u. Start: 04-09-2024 ANNUAL PCP TEAM CHRONIC DISEASE VISIT ANNUAL PCP TEAM CHRONIC DISEASE VISIT [facility] Start: 04-09-2024 BP CONTROLLED (<130/80) BP CONTROLLED (<130/80) [facility] Start: 04-09-2024 SHINGRIX VACCINE (1 of 2) [facility] Comment on above: Postponed from 09/01/2014 (Declined at t his time) Start: 02-26-2024 End: 05-27-2024 Thyrotropin [Units/volume] in Serum or Plasma THYROID STIMULATING HORMONE Lab Routine Hypothyroidism, unspecified type Expected: 02/26/2024, Expires: 05/27/2024 [facility] Comment on above: Expected: 02/26/2024, Expires: Start: 02-26-2024 End: 02-26-2024 Patient encounter procedure 02/26/2024 1:00 PM EDT Office Visit Family [facility] [address] [facility] [place] [address] Giancarlo Kendall MD [address] [place] [address] follow up with alta bates camp[facility] Comment on above: follow up with meds Start: 02-07-2024 BP CONTROLLED (<130/80) BP CONTROLLED (<130/80) [facility] Start: 02-01-2024 Colonoscopy COLONOSCOPY [facility] Start: 02-01-2024 COLORECTAL CANCER SCREENING COLORECTAL CANCER SCREENING [facility] Start: 02-01-2024 Screening for malignant neoplasm of colon [facility] Start: 2024 End: 2024 Patient encounter procedure 2024 9:00 AM EDT Office Visit [facility] Cindy Linares [address] [place] [address] Carina Hirsch PA-C [address] [place] [address] 6 month f/u Family [facility] L[facility] Comment on above: 6 month f/u Start: 01-20-2024 ANNUAL PCP TEAM CHRONIC DISEASE VISIT ANNUAL PCP TEAM CHRONIC DISEASE VISIT [facility] Start: 10-21-2023 ANNUAL PCP TEAM CHRONIC DISEASE VISIT ANNUAL PCP TEAM CHRONIC DISEASE VISIT [facility] Start: 10-21-2023 BP CONTROLLED (<130/80) BP CONTROLLED (<130/80) [facility] Start: 09-14-2023 Behavioral Health Screening Behavioral Health Screening [facility] Start: 09-14-2023 Depression Assessment Depression Assessment [facility] Start: 07-21-2023 ANNUAL PCP TEAM CHRONIC DISEASE VISIT ANNUAL PCP TEAM CHRONIC DISEASE VISIT [facility] Start: 07-21-2023 BP CONTROLLED (<130/80) BP CONTROLLED (<130/80) [facility] Start: 06-04-2023 Covid-19 Vaccine ( season) Covid-19 Vaccine () [facility] Start: 06-04-2023 COVID-19 VACCINE (5 - Pfizer risk series) COVID-19 VACCINE (5 - Pfizer risk series) [facility] Start: 06-03-2023 BP CONTROLLED (<130/80) BP CONTROLLED (<130/80) [facility] Start: 05-15-2023 ANNUAL PCP TEAM CHRONIC DISEASE VISIT ANNUAL PCP TEAM CHRONIC DISEASE VISIT [facility] Start: 05-15-2023 BP CONTROLLED (<130/80) BP CONTROLLED (<130/80) [facility] Start: 05-15-2023 Influenza vaccination [facility] Start: 05-05-2023 ANNUAL PCP TEAM CHRONIC DISEASE VISIT ANNUAL PCP TEAM CHRONIC DISEASE VISIT [facility] Start: 04-09-2023 End: 06-09-2023 Hepatitis C virus Ab [Presence] in Serum [facility] Work Phone: Comment on above: Expected: 04/09/2023, Expires: Start: 03-11-2023 ANNUAL PCP TEAM CHRONIC DISEASE VISIT ANNUAL PCP TEAM CHRONIC DISEASE VISIT [facility] Start: 02-26-2023 ANNUAL PCP TEAM CHRONIC DISEASE VISIT ANNUAL PCP TEAM CHRONIC DISEASE VISIT [facility] Start: 02-06-2023 ANNUAL PCP TEAM CHRONIC DISEASE VISIT ANNUAL PCP TEAM CHRONIC DISEASE VISIT [facility] Start: 02-06-2023 BP CONTROLLED (<130/80) BP CONTROLLED (<130/80) [facility] Start: 2023 RSV Vaccine (1 - 1-dose 60+ series) RSV Vaccine (1 - 1-dose 60+ series) [facility] Start: 2023 RSV Vaccine (1 - Risk 60-74 years 1-dose series) RSV Vaccine (1 - Risk 60-74 years 1-dose series) [facility] Start: 01-08-2023 ANNUAL PCP TEAM CHRONIC DISEASE VISIT ANNUAL PCP TEAM CHRONIC DISEASE VISIT [facility] Start: 12-23-2022 Adult depression screening assessment DEPRESSION SCREENING [facility] Start: 12-23-2022 ANNUAL PCP TEAM CHRONIC DISEASE VISIT ANNUAL PCP TEAM CHRONIC DISEASE VISIT [facility] Start: 12-23-2022 BP CONTROLLED (<130/80) BP CONTROLLED (<130/80) [facility] Start: 12-11-2022 PNEUMOCOCCAL (3 - PPSV23 if available, else PCV20) PNEUMOCOCCAL (3 - PPSV23 if available, else PCV20) [facility] Start: 12-11-2022 PNEUMOCOCCAL (3 - PPSV23 or PCV20) PNEUMOCOCCAL (3 - PPSV23 or PCV20) [facility] Start: 12-11-2022 TWO PNEUMOVAX 5 YEARS APART PRIOR TO AGE 65 (#2) TWO PNEUMOVAX 5 YEARS APART PRIOR TO AGE 65 (#2) [facility] Start: 11-07-2022 BP CONTROLLED (<130/80) BP CONTROLLED (<130/80) [facility] Start: 10-21-2022 End: 12-21-2022 CBC W Auto Differential panel - Blood [facility] Work Phone: Comment on above: Expected: 10/21/2022, Expires: 3 Start: 10-21-2022 End: 12-21-2022 Comprehensive metabolic 2000 panel - Serum or Plasma [facility] Work Phone: Comment on above: Expected: 10/21/2022, Expires: 3 Start: 10-21-2022 End: 12-21-2022 Gamma glutamyl transferase [Enzymatic activity/volume] in Serum or Plasma [facility] Work Phone: Comment on above: Expected: 10/21/2022, Expires: 3 Start: 10-21-2022 End: 12-21-2022 Magnesium [Mass/volume] in Serum or Plasma [facility] Work Phone: Comment on above: Expected: 10/21/2022, Expires: 3 Start: 10-21-2022 End: 12-21-2022 Phosphate [Mass/volume] in Serum or Plasma [facility] Work Phone: Comment on above: Expected: 10/21/2022, Expires: 3 Start: 10-21-2022 End: 12-21-2022 Tacrolimus [Mass/volume] in Blood [facility] Work Phone: Comment on above: Expected: 10/21/2022, Expires: 3 Start: 10-21-2022 End: 12-21-2022 Thyrotropin [Units/volume] in Serum or Plasma [facility] Work Phone: Comment on above: Expected: 10/21/2022, Expires: 3 Start: 10-02-2022 ANNUAL PCP TEAM CHRONIC DISEASE VISIT ANNUAL PCP TEAM CHRONIC DISEASE VISIT [facility] Start: 09-16-2022 COVID-19 VACCINE (4 - Booster for Pfizer series) COVID-19 VACCINE (4 - Booster for Pfizer series) [facility] Start: 09-14-2022 DEPRESSION ASSESSMENT DEPRESSION ASSESSMENT [facility] Start: 08-05-2022 Influenza vaccination LUNG CANCER SCREENING [facility] Start: 06-03-2022 End: 06-17-2022 Influenza virus A and B RNA and SARS-CoV-2 (COVID-19) N gene panel - Respiratory specimen by RALF with probe detection COVID WITH FLUA+B, ROUTINE Microbiology Routine Pain in salivary gland region Expected: 06/03/2022, Expires: 06/17/2022 [facility] Work Phone: Comment on above: Expected: 06/03/2022, Expires: 2 Start: 05-15-2022 Influenza vaccination INFLUENZA (#1) [facility] Start: 04-10-2022 COVID-19 VACCINE (3 - Pfizer risk series) COVID-19 VACCINE (3 - Pfizer risk series) [facility] Start: 03-07-2022 End: 05-07-2022 CALCIUM IONIZED B CALCIUM IONIZED B Lab Routine Hypercalcemia Expected: 03/07/2022, Expires: 05/07/2022 [facility] Work Phone: Comment on above: Expected: 03/07/2022, Expires: 2 Start: 03-07-2022 COVID-19 VACCINE (2 - Pfizer risk series) COVID-19 VACCINE (2 - Pfizer risk series) [facility] Start: 02-25-2022 End: 04-27-2022 Bacteria identified in Urine by Culture URINE CULTURE Microbiology Routine Urinary frequency Urinary urgency Expected: 02/25/2022, Expires: 04/27/2022 [facility] Work Phone: Comment on above: Expected: 02/25/2022, Expires: 2 Start: 02-25-2022 End: 04-27-2022 Urinalysis complete panel - Urine URINALYSIS, WITH MICROSCOPIC Lab Routine Urinary frequency Urinary urgency Expected: 02/25/2022, Expires: 04/27/2022 [facility] Work Phone: Comment on above: Expected: 02/25/2022, Expires: 2 Start: 12-25-2021 End: 12-25-2022 CALCIUM IONIZED B CALCIUM IONIZED B Lab Routine Hypercalcemia Expected: 12/25/2021, Expires: 12/25/2022 [facility] Work Phone: Comment on above: Expected: 12/25/2021, Expires: 3 Start: 12-25-2021 End: 12-25-2022 CARBOXYHEMOGLOBIN RAPHAEL CARBOXYHEMOGLOBIN RAPHAEL Lab Routine Polycythemia Expected: 12/25/2021, Expires: 12/25/2022 [facility] Work Phone: Comment on above: Expected: 12/25/2021, Expires: 3 Start: 12-25-2021 End: 12-25-2022 CBC W Auto Differential panel - Blood CBC + DIFF Lab Routine Polycythemia Expected: 12/25/2021, Expires: 12/25/2022 [facility] Work Phone: Comment on above: Expected: 12/25/2021, Expires: 3 Start: 12-25-2021 End: 12-25-2022 PTH INTACT BLD PTH INTACT BLD Lab Routine Hypercalcemia Expected: 12/25/2021, Expires: 12/25/2022 [facility] Work Phone: Comment on above: Expected: 12/25/2021, Expires: 3 Start: 12-25-2021 End: 12-25-2022 VITAMIN D 25 HYDROXY VITAMIN D 25 HYDROXY Lab Routine Hypercalcemia Expected: 12/25/2021, Expires: 12/25/2022 [facility] Work Phone: Comment on above: Expected: 12/25/2021, Expires: 3 Start: 12-10-2021 End: 02-09-2022 Bacteria identified in Urine by Culture [facility] Work Phone: Comment on above: Expected: 12/10/2021, Expires: 2 Start: 12-10-2021 End: 02-09-2022 Urinalysis complete panel - Urine [facility] Work Phone: Comment on above: Expected: 12/10/2021, Expires: 2 Start: 11-22-2021 Adult depression screening assessment DEPRESSION SCREENING [facility] Start: 09-14-2021 DEPRESSION ASSESSMENT DEPRESSION ASSESSMENT [facility] Start: 09-23-2015 HEPATITIS B (3 of 3 - Risk 3-dose series) HEPATITIS B (3 of 3 - Risk 3-dose series) [facility] Start: 09-01-2014 SHINGRIX VACCINE (1 of 2) SHINGRIX VACCINE (1 of 2) [facility] Start: 09-01-2014 SHINGRIX VACCINE (2 of 3) SHINGRIX VACCINE (2 of 3) [facility] Start: 01-29-2008 COLOGUARD (FIT-DNA) COLOGUARD (FIT-DNA) [facility] Start: 01-29-[address] COLONOGRAPHY [facility] Start: 01-29-2008 FECAL OCCULT BLOOD FECAL OCCULT BLOOD [facility] Start: 01-29-2008 Screening for malignant neoplasm of colon [facility] Start: 01-29-2008 SIGMOIDOSCOPY SIGMOIDOSCOPY [facility] Start: 1981 BP CONTROLLED (<130/80) BP CONTROLLED (<130/80) [facility] Start: 1981 Depression Screening Depression Screening [facility] Start: 1975 COVID-19 VACCINE (1) COVID-19 VACCINE (1) [facility] Start: 01-29-1968 COVID-19 VACCINE (#1) COVID-19 VACCINE (#1) [facility] Bacteria identified in Urine by Culture URINE CULTURE Microbiology Routine Pyuria Microscopic hematuria 01/08/2022 3:27 PM EDT [facility] Work Phone: End: 10-22-2023 CBC W Auto Differential panel - Blood CBC + DIFF Lab Routine Liver replaced by transplant (HCC) Every other week for 50 Occurrences starting 10/22/2022 until 10/22/2023 [facility] Work Phone: Comment on above: Every other week for 50 Occurrences star ting 10/22/2022 until 10/22/2023 End: 12-30-2024 CBC W Auto Differential panel - Blood COMPLETE BLOOD COUNT AND DIFFERENTIAL Lab Routine Liver replaced by transplant (HCC) Every other week for 50 Occurrences starting 12/31/2023 until 12/30/2024, 1 completed [facility] Work Phone: Comment on above: Every other week for 50 Occurrences star ting 12/31/2023 until 12/30/2024, 1 completed End: 09-19-2025 CBC W Auto Differential panel - Blood COMPLETE BLOOD COUNT AND DIFFERENTIAL Lab Routine Liver replaced by transplant (HCC) Once per month for 12 Occurrences starting 09/19/2024 until 09/19/2025 [facility] Work Phone: Comment on above: Once per month for 12 Occurrences starti ng 09/19/2024 until 09/19/2025 End: 10-22-2023 Comprehensive metabolic 2000 panel - Serum or Plasma COMP METABOLIC PANEL Lab Routine Liver replaced by transplant (HCC) Every other week for 50 Occurrences starting 10/22/2022 until 10/22/2023 [facility] Work Phone: Comment on above: Every other week for 50 Occurrences star ting 10/22/2022 until 10/22/2023 End: 12-30-2024 Comprehensive metabolic 2000 panel - Serum or Plasma COMPREHENSIVE METABOLIC PANEL Lab Routine Liver replaced by transplant (HCC) Every other week for 50 Occurrences starting 12/31/2023 until 12/30/2024, 1 completed [facility] Work Phone: Comment on above: Every other week for 50 Occurrences star ting 12/31/2023 until 12/30/2024, 1 completed End: 09-19-2025 Comprehensive metabolic 2000 panel - Serum or Plasma COMPREHENSIVE METABOLIC PANEL Lab Routine Liver replaced by transplant (HCC) Once per month for 12 Occurrences starting 09/19/2024 until 09/19/2025 [facility] Comment on above: Once per month for 12 Occurrences starti ng 09/19/2024 until 09/19/2025 End: 01-02-2024 CT LUNG SCREEN WO IVCON CT LUNG SCREEN WO IVCON Radiology Routine History of tobacco use Encounter for screening for lung cancer 1 Occurrences starting 12/03/2022 until 01/02/2024 [facility] Work Phone: Comment on above: 1 Occurrences starting 12/03/2022 until 01/02/2024 ECG COMPLETE ECG COMPLETE ECG Routine SOB (shortness of breath) Chest wall pain 02/26/2024 12:40 PM EDT [facility] End: 10-22-2023 Gamma glutamyl transferase [Enzymatic activity/volume] in Serum or Plasma GGT BLD Lab Routine Liver replaced by transplant (HCC) Every other week for 50 Occurrences starting 10/22/2022 until 10/22/2023 [facility] Work Phone: Comment on above: Every other week for 50 Occurrences star viping 10/22/2022 until 10/22/2023 End: 10-22-2023 Lipid 1996 panel - Serum or Plasma LIPID PANEL BASIC Lab Routine Liver replaced by transplant (HCC) Every 3 months for 4 Occurrences starting 10/22/2022 until 10/22/2023 [facility] Work Phone: Comment on above: Every 3 months for 4 Occurrences startin g 10/22/2022 until 10/22/2023 End: 10-22-2023 Magnesium [Mass/volume] in Serum or Plasma MAGNESIUM BLD Lab Routine Liver replaced by transplant (HCC) Every other week for 50 Occurrences starting 10/22/2022 until 10/22/2023 [facility] Work Phone: Comment on above: Every other week for 50 Occurrences star ting 10/22/2022 until 10/22/2023 End: 03-27-2025 NM Heart Perfusion W stress and W radionuclide IV NM CARDIAC PERF STRESS/PHARM Radiology Routine SOB (shortness of breath) Chest wall pain 1 Occurrences starting 02/26/2024 until 03/27/2025 [facility] Comment on above: 1 Occurrences starting 02/26/2024 until 03/27/2025 Patient Education Aspirin Atorva statin Clopidogrel Chest pain [facility] Work Phone: Patient referral [facility] Work Phone: End: 10-22-2023 Phosphate [Mass/volume] in Serum or Plasma PHOSPHORUS INORGANIC Lab Routine Liver replaced by transplant (HCC) Every other week for 50 Occurrences starting 10/22/2022 until 10/22/2023 [facility] Work Phone: Comment on above: Every other week for 50 Occurrences star ting 10/22/2022 until 10/22/2023 End: 12-30-2024 Phosphate [Mass/volume] in Serum or Plasma PHOSPHORUS INORGANIC Lab Routine Liver replaced by transplant (HCC) Every 6 months for 2 Occurrences starting 12/31/2023 until 12/30/2024, 1 completed [facility] Work Phone: Comment on above: Every 6 months for 2 Occurrences startin g 12/31/2023 until 12/30/2024, 1 completed End: 09-19-2025 Phosphate [Mass/volume] in Serum or Plasma PHOSPHORUS INORGANIC Lab Routine Liver replaced by transplant (HCC) Every 6 months for 2 Occurrences starting 09/19/2024 until 09/19/2025 [facility] Comment on above: Every 6 months for 2 Occurrences startin g 09/19/2024 until 09/19/2025 End: 10-22-2023 Tacrolimus [Mass/volume] in Blood TACROLIMUS/FK-506 BL Lab Routine Liver replaced by transplant (HCC) Every other week for 50 Occurrences starting 10/22/2022 until 10/22/2023 [facility] Work Phone: Comment on above: Every other week for 50 Occurrences star ting 10/22/2022 until 10/22/2023 End: 12-30-2024 Tacrolimus [Mass/volume] in Blood TACROLIMUS/FK-506 BL Lab Routine Liver replaced by transplant (HCC) Every other week for 50 Occurrences starting 12/31/2023 until 12/30/2024 [facility] Work Phone: Comment on above: Every other week for 50 Occurrences star ting 12/31/2023 until 12/30/2024 Tacrolimus [Mass/vol ume] in Blood TACROLIMUS/FK-506 BL Lab Routine Liver replaced by transplant (HCC) 12/31/2023 2:52 PM EDT [facility] Work Phone: End: 09-19-2025 Tacrolimus [Mass/volume] in Blood TACROLIMUS/FK-506 BL Lab Routine Liver replaced by transplant (HCC) Once per month for 12 Occurrences starting 09/19/2024 until 09/19/2025 [facility] Comment on above: Once per month for 12 Occurrences starti ng 09/19/2024 until 09/19/2025 End: 03-27-2025 XR Chest PA and Lateral XR CHEST 2V FRONTAL/LAT Radiology Routine Chest wall pain 1 Occurrences starting 02/26/2024 until 03/27/2025 [facility] Work Phone: Comment on above: 1 Occurrences starting 02/26/2024 until 03/27/2025 End: 01-31-2024 XR FOOT GENERAL 3V AP/LAT/OBL BILATERAL XR FOOT GENERAL 3V AP/LAT/OBL BILATERAL Radiology Routine Bilateral foot pain 1 Occurrences starting 01/01/2023 until 01/31/2024 [facility] Work Phone: Comment on above: 1 Occurrences starting 01/01/2023 until 01/31/2024 End: 02-18-2024 XR HAND GENERAL 3V PA/LAT/OBL BILATERAL XR HAND GENERAL 3V PA/LAT/OBL BILATERAL Radiology Routine Pain in both hands 1 Occurrences starting 01/19/2023 until 02/18/2024 [facility] Work Phone: Comment on above: 1 Occurrences starting 01/19/2023 until 02/18/2024 XR HAND GENERAL 3V PA/LAT/OBL BILATERAL XR HAND GENERAL 3V PA/LAT/OBL BILATERAL Radiology Routine Pain in both hands 01/19/2023 3:33 PM EDT [facility] Work Phone: End: 11-20-2023 XR RIBS/CHEST 3V AP RIB/OBLS/CXR RIGHT XR RIBS/CHEST 3V AP RIB/OBLS/CXR RIGHT Radiology Routine Rib pain on right side 1 Occurrences starting 10/21/2022 until 11/20/2023 [facility] Work Phone: Comment on above: 1 Occurrences starting 10/21/2022 until 11/20/2023 XR RIBS/CHEST 3V AP RIB/OBLS/CXR RIGHT XR RIBS/CHEST 3V AP RIB/OBLS/CXR RIGHT Radiology Routine Rib pain on right side 10/21/2022 3:01 PM EST [facility] Work Phone: [facility] Immunizations Immunization Date Immunization Notes Care Provider [facility] 07-10-2023 influenza, injectabl e, quadrivalent, contains preservative; Translations: [Influenza, split virus, quadrivalent, preservative] Giancarlo Kendall MD Work Phone: [facility] 07-10-2023 influenza virus vacc ine, unspecified formulation Giancarlo Kendall MD Work Phone: [facility] 04-09-2023 pneumococcal Conjuga te, unspecified formulation Giancarlo Kendall MD Work Phone: [facility] Work Phone: 04-09-2023 COVID-19 vaccine, ag e 12+ yr, bivalent ([employer]); Translations: [COVID-19, mRNA, LNP-S, bivalent, PF, 30 mcg/0.3 mL dose] Giancarlo Kendall MD Work Phone: [facility] 04-09-2023 pneumococcal (PCV20) vaccine, 20 valent (PREVNAR 20); Translations: [Pneumococcal conjugate PCV20, polysaccharide [id number] conjugate, adjuvant, PF] Giancarlo Kendall MD Work Phone: [facility] 07-22-2022 COVID-19 booster vaccine, age 12+ yr, bivalent ([employer]); Translations: [COVID-19, mRNA, LNP-S, bivalent, PF, 30 mcg/0.3 mL dose] Giancarlo Kendall MD Work Phone: [facility] 07-21-2022 influenza, injectabl e, quadrivalent, contains preservative; Translations: [Influenza, split virus, quadrivalent, preservative] Giancarlo Kendall MD Work Phone: [facility] 07-21-2022 influenza virus vacc ine, unspecified formulation Giancarlo Kendall MD Work Phone: [facility] 03-13-2022 COVID-19 vaccine, ag e 12+ yr ([employer] - [employer]); Translations: [COVID-19, mRNA, LNP-S, PF, 30 mcg/0.3 mL dose, manuel-sucrose] Giancarlo Kendall MD Work Phone: [facility] 02-14-2022 COVID-19 vaccine, ag e 12+ yr (P[employer] - [employer]); Translations: [COVID-19, mRNA, LNP-S, PF, 30 mcg/0.3 mL dose, manuel-sucrose] Saida Lowery APRN.CNP Work Phone: [facility] 07-18-2021 influenza, injectabl e, quadrivalent, contains preservative; Translations: [influenza, injectable, quadrivalent] Jose Ramon Hudson MD Work Phone: [facility] 08-10-2019 influenza, seasonal, injectable, preservative free; Translations: [Influenza, seasonal, injectable, preservative free] Jose Ramon Hudson MD Work Phone: [facility] 08-09-2019 influenza virus vacc ine, unspecified formulation Jose Ramon Hudson MD Work Phone: [facility] 08-19-2018 influenza, injectabl e, quadrivalent, contains preservative; Translations: [influenza, injectable, quadrivalent] Jose Ramon Hudson MD Work Phone: [facility] 07-10-2018 influenza, injectabl e, quadrivalent, preservative free; Translations: [influenza, injectable, quadrivalent, preservative free] Jose Ramon Hudson MD Work Phone: [facility] Work Phone: 12-11-2017 pneumococcal polysaccharide vaccine, 23 valent; Translations: [pneumococcal polysaccharide PPV23] Jose Ramon Hudson MD Work Phone: [facility] 07-01-2017 influenza, injectabl e, quadrivalent, contains preservative; Translations: [influenza, injectable, quadrivalent] Jose Ramon Hudson MD Work Phone: [facility] 06-14-2015 influenza, injectabl e, quadrivalent, preservative free; Translations: [influenza, injectable, quadrivalent, preservative free] Jose Ramon Hudson MD Work Phone: [facility] 05-24-2015 hepatitis B vaccine, adult dosage Jose Ramon Hudson MD Work Phone: [facility] 05-24-2015 hepatitis B vaccine, pediatric or pediatric/adolescent dosage Dr Connor Platt DO Mobile Phone: [facility] 05-24-2015 hepatitis B vaccine, unspecified formulation Jose Ramon Hudson MD Work Phone: [facility] 07-28-2014 hepatitis B vaccine, adult dosage; Translations: [Hep B, adult] Jose Ramon Hudson MD Work Phone: [facility] Work Phone: 07-07-2014 hepatitis B vaccine, adult dosage Jose Ramon Hudson MD Work Phone: [facility] 07-07-2014 hepatitis B vaccine, pediatric or pediatric/adolescent dosage Dr Connor Platt DO Mobile Phone: [facility] 07-07-2014 influenza, injectabl e, quadrivalent, preservative free; Translations: [influenza, injectable, quadrivalent, preservative free] Jose Ramon Hudson MD Work Phone: [facility] 07-07-2014 pneumococcal conjuga te vaccine, 13 valent; Translations: [Pneumococcal conjugate PCV 13] Jose Ramon Hudson MD Work Phone: [facility] 07-07-2014 tetanus toxoid, redu wilberto diphtheria toxoid, and acellular pertussis vaccine, adsorbed; Translations: [Tdap] Jose Ramon Hudson MD Work Phone: [facility] 07-07-2014 zoster vaccine, live ; Translations: [zoster live] Jose Ramon Hudson MD Work Phone: [facility] Payers Date Payer Category Payer Unknown [id number] 2022 Medicaid [id number] 2022 Self-pay [id number] 2017 Private Health Insurance [id number] 2017 Private Health Insurance [id number] 2017 Unknown [id number] 2014 Private Health Insurance [id number] 1963 Unknown [id number] Unknown [id number] Unknown [id number] Unknown [id number] Unknown [id number] Unknown [id number] Unknown [id number] Unknown [id number] Unknown [id number] Social History Date Type Detail Facility Start: 12-26-2011 End: 05-04-2023 Tobacco smoking status NHIS Ex-smoker [facility] Start: 09-14-1979 End: 08-01-2013 History of tobacco use Current smoker [facility] Start: 09-14-1979 End: 08-01-2013 History of tobacco use Cigarette Smoker [facility] Start: 12-26-2011 End: 09-30-2023 Cigarettes smoked current (pack per day) - Reported 1 [facility] Start: 12-26-2011 End: 05-04-2023 Tobacco use and exposure Smokeless tobacco non-user [facility] Start: 11-22-2021 End: 04-14-2024 Alcohol intake Current non-drinker of alcohol (finding) [facility] Start: 11-22-2020 History SDOH Alcohol Frequency 1 [facility] Start: 04-22-2013 History SDOH Alcohol Comment Quit 10/2011 [facility] Start: 11-22-2020 History SDOH Social Connections Phone 5 [facility] Start: 11-22-2020 History SDOH Social Connections Membership 2 [facility] Start: 11-22-2020 History SDOH Social Connections Living 3 [facility] Start: 11-22-2020 History SDOH Physical Activity MPS 0 [facility] Start: 11-22-2020 Education 8 [facility] Start: 1965 End: 1965 Sex Assigned At Male [facility] Start: 11-24-2021 End: 07-21-2022 Exposure to SARS-CoV-2 (event) Not sure [facility] Start: 02-18-2022 End: 03-06-2022 Exposure to SARS-CoV-2 (event) Unable to assess [facility] Work Phone: Start: 11-22-2020 End: 09-30-2023 Social connection and isolation panel [facility] Do you belong to any clubs or organizations such as episcopal groups, unions, fraternal or athletic groups, or school groups? No [facility] Are you now , , , , never or living with a partner? [facility] How often to you hav e a drink containing alcohol? Never [facility] Start: 08-15-2012 Average Number of Drinks [facility] Do you feel stress - tense, restless, nervous, or anxious, or unable to sleep at night because your mind is troubled all the time - these days [OSQ] Very much [facility] (I/We) worried zaira er (my/our) food would run out before (I/we) got money to buy more. Sometimes true [facility] The food that (I/we) bought just didn't last, and (I/we) didn't have money to get more. Never true [facility] Start: 07-09-2018 Gender identity Identifies as male gender (finding) [facility] Start: 07-09-2018 Sexual orientation Heterosexual (finding) [facility] Tobacco smoking status No Smokin g Status Entered [facility] Start: 06-28-2024 Former Smoker Former Smoker [facility] Start: 06-28-2024 Sex Male (finding) [facility] Start: 04-06-2025 Do You Drink Alcohol? Do You Drink Alcohol? [facility] Start: 04-06-2025 Do You Use Any Illicit Drugs? Do You Use Any Illicit Drugs? [facility] Medical Equipment Procedure Code Equipment Code Equipment Origin al Text Equipment Identifier Dates Implant ([id number]) [id number] Start: 11-05-2016 Comment on above: Description: 6x6 Prolene Soft [id number] Start: 04-17-2017 Tube Shiley 10.8 mm 6.4mm 6 76mm Tracheostomy Cuff Low Pressure Fenestrate - [id number] Start: 11-01-2015 Goals Date Patient Goal Desired Activity /State Functional Status Date Assessment Result Facility 04-08-2025 Functional status Total Fall Ris k Score High Fall Risk [facility] Work Phone: 04-06-2025 Functional status Functional Sta tus Of Patient None [facility] Work Phone: 04-06-2024 Functional Status Room check performed [facility] 04-06-2024 Functional Status [facility] 04-06-2024 Functional Status [facility] 04-05-2024 Functional Status [facility] 04-05-2024 Functional Status [facility] 04-05-2024 Functional Status Multilevel milton e, 1st floor bedroom, 1st floor bathroom [facility] 04-05-2024 Functional Status [facility] 04-05-2024 Functional Status no, incomplete , provider notification [facility] 04-04-2024 Functional Status Assistive Device None A [facility] 11-27-2021 Are you deaf, or do you have serious difficulty hearing No 11/27/2021 3:19 PM Viridiana Allen RN No [facility] 11-27-2021 Are you blind, or do you have serious difficulty seeing, even when wearing glasses No 11/27/2021 3:19 PM Virdiiana Allen, ARRON No [facility] 11-27-2021 Do you have serious difficulty walking or climbing stairs No 11/27/2021 3:19 PM Viridiana Allen, ARRON No [facility] 11-27-2021 Do you have difficul ty dressing or bathing No 11/27/2021 3:19 PM Viridiana Allen, AR[place] No [facility] 11-27-2021 Because of a physica l, mental, or emotional condition, do you have difficulty doing errands alone such as visiting a physician's office or shopping No 11/27/2021 3:19 PM Viridiana Allen RN No [facility] Mental Status Date Assessment Result Facility 04-05-2025 Cognitive function Person;Place;Time [facility] Work Phone: 06-28-2024 Cognitive function Person;Place;Time [facility] Work Phone: 04-06-2024 Mental Status Oriented x 4 [facility] 04-05-2024 [facility] Mental Status [facility] 11-27-2021 Because of a physica l, mental, or emotional condition, do you have serious difficulty concentrating, remembering, or making decisions No 11/27/2021 3:19 PM EDT Viridiana Anand RN No [facility] Clinical Notes 07-09-2018 to 05-16-2025 Telephone Encounter - Cely Morales MA - 05/16/2025 10:52 AM EDTTelephone Encounter - Cely Morales MA - 05/16/2025 10:52 AM EDTTelephone Encounter - Cely Morales MA - 05/06/2025 12:02 PM EDT Note Date & Type Note Facility 05-16-2025 Telephone encount er Note 3 attempts no response, closing encounter Cely Morales MA May 16, 2025 10:53 AM [facility] 05-16-2025 Miscellaneous Notes Formattin g of this note might be different from the original. 3 attempts no response, closing encounter Cely Morales MA May 16, 2025 10:53 AM Letter mailed to patient asking for his to call in to office and speak with nursing staff. Cely Morales MA May 06, 2025 12:03 PM Sent [employer] message to patient. He has recently logged into his [employer] account. Copied from Dr Kendall's note: Contact patient to get number to fax orders for standing orders that transplant has and also lipid I ordered. See if we can get him in for vv(or phone) in three months. Can be on a am. Left message for patient to call. If/when patient calls please advise him of the messages in his chart from his transplant team. He needs to contact them to set up labs/visit. Even if we faxed the transplant orders for him they need to be aware that labs are being completed. documented in this encounter [facility] 05-06-2025 Telephone encount er Note Letter mailed to patient asking for his to call in to office and speak with nursing staff. Cely Morales MA May 06, 2025 12:03 PM [facility] 04-21-2025 Telephone encount er Note Sent [employer] message to patient. He has recently logged into his [employer] account. [facility] 04-18-2025 Telephone encount er Note Copied from Dr Kendall's note: Contact patient to get number to fax orders for standing orders that transplant has and also lipid I ordered. See if we can get him in for vv(or phone) in three months. Can be on a am. Left message for patient to call. If/when patient calls please advise him of the messages in his chart from his transplant team. He needs to contact them to set up labs/visit. Even if we faxed the transplant orders for him they need to be aware that labs are being completed. 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 Provided him with contact information, and will send MyChart message as well. Peyton Peguero RN (Cassie), [place], [facility] Liver Overhead [employer] [facility] 04-17-2025 Miscellaneous Notes Formattin g of this note might be different from the original. I called and LMOM for patient, encouraging him to call back to discuss being set up for appointment in 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 post transplant hepatology clinic. Provided him with contact information, and will send MyChart message as well. Peyton Peguero RN (Cassie), BSN, [facility] Liver Overhead [employer] documented in this encounter [facility] 04-17-2025 History of Presen t illness Narrative James Carlson is a 60-year-old male with a history of CAD, status post recent stent placement, presenting for follow-up. Unable to complete virtual visit. phone visit completed. HPI Coronary Artery Disease: - Recent stent placement following severe chest pain radiating to both arms, accompanied by diaphoresis and emesis. - Cardiac catheterization revealed a maker lesion; stent placed at [facility]. - Post-procedure, experiencing mild fluttering and slight pain in the right chest. - Follow-up with valet attendant scheduled in [place]. - Currently on aspirin, clopidogrel, and atorvastatin 40 mg. - Lisinopril increased to 20 mg; BP readings around 125/70 mmHg. - Denies dyspnea. Osteoporosis: - History of multiple fractures: two toes on the right foot, left hand, and right wrist. - ? Right wrist fracture self-treated with splinting for five weeks. Advised to follow up if able. - Over due for labs for his transplant. MEDICATIONS: Current Outpatient Medications Medication Sig atorvastatin (LIPITOR) 40 mg tablet Take 40 mg by mouth. clopidogrel (PLAVIX) 75 mg tablet Take 1 tablet by mouth once daily. lisinopril (ZESTRIL) 5 mg tablet Take 4 tablets by mouth once daily. PARoxetine (PAXIL) 30 mg tablet Take 1 tablet by mouth once daily. tacrolimus IR (PROGRAF) 1 mg capsule Take 1 capsule (1mg) by mouth twice daily. Take in addition to one 0.5mg capsule for total dose of 1.5mg twice daily tacrolimus IR (PROGRAF) 0.5 mg capsule Take 1 capsule (0.5 mg) by mouth twice daily. Take with 1mg capsule for total 1.5mg twice daily sulfamethoxazole-trimethoprim (BACTRIM DS) 800-160 mg per tablet 1 tablet every Thursday, Thursday, and Thursday. pantoprazole DR (PROTONIX) 40 mg tablet Take 1 tablet by mouth daily before breakfast. Take on empty stomach, 1/2 hr before meal. metoprolol succinate ER (TOPROL XL) 25 mg 24 hr tablet Take 1 tablet by mouth once daily. alendronate (FOSAMAX) 70 mg tablet Take 1 tablet by mouth one time a week. Take with a full glass of water, on an empty stomach; do NOT lie down for 30minutes. On sundays Cholecalciferol, Vitamin D3, 25 mcg (1,000 unit) cap Take 1 capsule by mouth once daily. Garlic 1,000 mg cap Take 1 capsule by mouth once daily. No current facility-administered medications for this visit. ALLERGIES: ALLERGIES Allergen Reactions Acetaminophen Hives Hydrocodone Hives Morphine Hives, Other: See Comments Latex Rash Ketorolac Unknown Pt states allergy, told not to take with liver transplant Vancomycin (Bulk) Rash, Itching Vicodin [Hydrocodon* Itching PAST MEDICAL HISTORY Diagnosis Date BPH with obstruction/lower urinary tract symptoms Cirrhosis (HCC) ETOH abuse stopped etoh in 09/27 H/O liver transplant (HCC) 10/03/2015 Hepatitis C Hepatopulmonary syndrome (HCC) used oxygen 3 to 6 liters and off O2 since liver transplant Hypertension Marijuana use, continuous 12/28/2020 MRSA (methicillin resistant Staphylococcus aureus) 11/2011 New onset seizure (HCC) 10/05/2015 06/11/[address] Anurag Doyle:noted one seizure after transplant. No seizures since, off keppra.Initial EEG showed small amplitudes polyspikes overriding periodic patterns), later EEG became normal, brain MRI unremarkable. He has been off Keppra since March 2016. No further seizure. Non-ischemic cardiomyopathy (HCC) Osteoporosis Panic attacks Prostatitis 11/2011 Psoriasis PTSD (post-traumatic stress disorder) Sarcoidosis of the lungs Splenomegaly Thrombocytopenia (HCC) Pancytopenia resolved after liver transplant Unspecified hypothyroidism Hypothyroidism PAST SURGICAL HISTORY Procedure Laterality Date COLONOSCOPY FLX DX W/COLLJ SPEC WHEN PFRMD 10/14/13 Colonoscopy ESOPHAGOGASTRODUODENOSCOPY TRANSORAL DIAGNOSTIC 10/14/13 EGD ESOPHAGOGASTRODUODENOSCOPY TRANSORAL DIAGNOSTIC 01/31/2019 EGD INGUINAL HERNIA REPAIR HX 10/15/2016 LIVER BIOPSY NERVE ALTERATION 83? LEFT ELBOW ABOUT PAST SURGICAL HISTORY OF 83? Deviated septum PAST SURGICAL HISTORY OF Liver transplant : 09/2015 PAST SURGICAL HISTORY OF PFO repair 2015 PICC LINE INSERT/CONSULT 11/01/2015 PICC LINE INSERTION (PICC TEAM) ([place]) 11/22/2021 TONSILLECTOMY PRIMARY/SECONDARY <AGE 10 Tonsillectomy FAMILY HISTORY Problem Relation Age of Onset COPD Mother Lung Cancer Mother Alzheimer's Disease Father Arthritis Brother Back issues Diabetes Maternal Grandmother Diabetes Paternal Grandfather Amblyopia Daughter Social History Tobacco Use Smoking status: Former Current packs/day: 0.00 Average packs/day: 1 pack/day for 33.0 years (33.0 ttl pk-yrs) Types: Cigarettes Start date: 09/14/1979 Quit date: 2013 Years since quittin.5 Smokeless tobacco: Never Vaping Use Vaping status: Never Used Substance Use Topics Alcohol use: No Comment: Quit 10/2011 Drug use: Yes Types: Marijuana Comment: now only marijuana to help with appetite and slee[ Reviewed current medications, allergies, past medical history, surgical history, family history and social history today. REVIEW OF SYSTEMS Constitutional: (+) unintentional weight loss, (+) generalized weakness Cardiovascular: (+) chest pain, (+) palpitations Respiratory: (-) dyspnea Musculoskeletal: (+) right wrist pain HEALTH MAINTENANCE: Reviewed health maintenance issues today and recommended the following in detail. Depression Screening Never done Shingrix Vaccine(1 of 2) due on 09/01/2014 RSV Vaccine(1 - Risk 60-74 years 1-dose series) Never done Colorectal Cancer Screening due on 02/01/2024 DTaP,Tdap,Td Vaccine(2 - Td or Tdap) due on 07/07/2024 LAB REVIEWED: Labs: Tests: (No date) Left Heart Catheterization: Severe coronary artery lesion requiring stent placement (No date) Cardiac Stress Test: Abnormal, indicating severe coronary artery blockage Imaging: (No date) Echocardiogram: Normal left ventricular function (No date) CT Scan: Performed, no results stated VITALS: There were no vitals taken for this visit. Last 4 Encounter Wt Readings: Date: Wt: 04/14/2024 75.8 kg (167 lb) 02/26/2024 78.5 kg (173 lb) 07/10/2023 70.3 kg (155 lb) 04/09/2023 71.7 kg (158 lb) PHYSICAL EXAMINATION: unable to assess. ASSESSMENT AND PLAN 1. S/P PTCA (percutaneous transluminal coronary angioplasty) (Z98.61) 2. Coronary artery disease involving mcgrath heart without angina pectoris, unspecified vessel or lesion type (I25.10) - Recent hospitalization for worsening chest pain; abnormal stress test and severe coronary artery blockage identified at [facility]. - Underwent cardiac catheterization with stent placement; echo showed normal LV function. - Advised to continue aspirin and clopidogrel (Plavix) for at least 6 months, preferably 1 year; patient educated on importance of adherence. - Mild residual chest discomfort likely post-stent; advised to report any worsening chest pain, dyspnea, dizziness, or lightheadedness. - Follow-up with cardiology in [place] as scheduled. 3. Anxiety with depression (F41.8) 4. PTSD (post-traumatic stress disorder) (F43.10) - Recent significant psychosocial stressors, including bereavement and family conflict. 5. Liver replaced by transplant (HCC) (Z94.4) 6. S/P liver transplant (HCC) (Z94.4) - Order CBC, CMP, phosphorus, and tacrolimus level. 7. Paroxysmal atrial fibrillation (HCC) (I48.0) - stable. 8. Essential hypertension (I10) - Lisinopril increased to 20 mg; BP readings reportedly stable at 125/70 mmHg. 9. Non-ischemic cardiomyopathy (HCC) (I42.8) - had resolved. 10. Mixed hyperlipidemia (E78.2) - Restarted on atorvastatin 40 mg; discontinue simvastatin. - Order fasting lipid panel. 11. Sarcoidosis (D86.9) at some point, follow up with pulmonary. (See patient after visit summary for additional instructions to patient) Giancarlo Kendall MD Recording using ambient Sonavation software for draft documentation of the visit was discussed with the patient/authorized statement services representative; all questions welcomed and answered. Patient/authorized statement services representative agreed to proceed I spent 27 minutes in the visit, with more than 50% of the total [id number] time of the visit in counseling / coordination of care. Recent hospital admission, [facility].: Admit Date: 04/06/2025 4:02 AM Hospital Discharge Date: 04/08/2025 Estimated Discharge Date: 04/08/2025 Discharged By: Duong Mcgill DO Summary and Plan 60-year-old male with past medical history of previous cigarette smoker, depression, GERD, hypertension, hyperlipidemia, PTSD with mixed anxiety depressive disorder, PFO, previously noted paroxysmal atrial fibrillation on outpatient records however patient denies this (noted to occur during liver transplant), questionable history of sarcoidosis, 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 On 04/05/25, the pain become severe, radiated to both arms and came to the ER for further evaluation. -Chest x-ray nonacute -Troponin trending 35-38-46 Chest pain secondary to CAD: Trop trend 35->38->46->52->49. Echo showed LVEF 60-65%. Stress test was abnormal so pt underwent cardiac cath on 04/07/25 which showed severe stenosis in the LAD - he is s/p WALT to LAD. he will need to remain on DAPT with ASA/Plavix for at minimum 6 months, preferably a year. Continue BB and statin Hypertension: BP was elevated, lisinopril dose increased per cardiology. Continue metoprolol. Paroxysmal atrial fibrillation: As noted above patient denies this but was noted in outpatient records probably occurred while hospitalized during liver transplant. Continue with metoprolol. CHADVASC- 1. Not routinely on AC. Alcoholic liver cirrhosis status post transplant: Continue with tacrolimus Hypothyroidism: Per outpatient records. On no medications. TSH 0.3. GERD: Continue PPI therapy Multiple other comorbidities currently stable DISPO: home Acute Problems 1) Chest pain [R07.9] (Added: 04/06/2025) 2) High troponin I level [R77.8] (Added: 04/06/2025) documented in this encounter [facility] 04-11-2025 Telephone encount er Note agreeable [facility] 04-11-2025 Miscellaneous Notes Formattin g of this note might be different from the original. agreeable Patient calling in. States he is currently staying in [facility]; [place], [place]. He was taken by squad last week to [facility] ER due to chest pain and increased troponin and had stent placement. States he has no transportation and is not sure when he will have it. He wants Dr. Kendall to remain his PCP but unable to come in for appts at this time. Pt is in need of an ER F/U but can only do this virtually or by Phone call. Virtual ER F/U appt has been made for 04/17, if PCP agreeable to this. Pt states if he is not on virtually at time of appt, to please call him by phone, if that is ok. States he has been unable to get on to [employer] due to password issue. This nurse gave pt [employer] help number and advised him to call this today. Pt states he would. No call back needed to pt if PCP agreeable to virtual ER F/U as scheduled. Ashly De Leon RN documented in this encounter [facility] 04-11-2025 Telephone encount er Note Patient calling in. States he is currently staying in [facility]; [place], [place]. He was taken by squad last week to [facility] ER due to chest pain and increased troponin and had stent placement. States he has no transportation and is not sure when he will have it. He wants Dr. Kendall to remain his PCP but unable to come in for appts at this time. Pt is in need of an ER F/U but can only do this virtually or by Phone call. Virtual ER F/U appt has been made for 04/17, if PCP agreeable to this. Pt states if he is not on virtually at time of appt, to please call him by phone, if that is ok. States he has been unable to get on to [employer] due to password issue. This nurse gave pt panOpenhart help number and advised him to call this today. Pt states he would. No call back needed to pt if PCP agreeable to virtual ER F/U as scheduled. Ashly De Leon RN [facility] 04-08-2025 Progress note [facility] 04-08-2025 Progress note [facility] 04-08-2025 Hospital Discharg e instructions GIANCARLO KENDALL M.D. (Family Medicine), Within 48 hours, Hospital follow-up Joaquin Dey NP (Cardiology Ambulatory - [place]), 2-4 weeks, Hospital follow-up [facility] Work Phone: 04-07-2025 Progress note [facility] 04-07-2025 Note [facility] Name: TROY CARLSON [address] [facility] Phys: [place] [address] : 1965 Age: [phone] Acct: [id number] Loc: [facility].OBSPAVMRN/Unit No.: [id number] Status: ADM INOExam Date: 04/07/25 Accession Number: [id number]: [id number] NM/NM MYOCARDIAL PERF REST/[id number] .pdf*[facility] [place] [id number]: [phone] --------Myocardial Perfusion ImagingRegadenoson (Lexiscan) protocolRest/StressPatient: Troy Carlson : 1965 Study 04/07/2025 60 Gender: M Patient InpatientStatus:*Reading Physician: * Colt Lima MD*Ordering Physician: * Neeta Ochoa*Reed Repairer: * Jesse Decker [facility] ; Jessica Lucia [facility]; Michelle Nugent [facility] Indications: Chest Pain, unspecified. --------History: Chest pain. Chest pain. Palpitations, fatigue, shortness ofbreath, dyspnea on exertion, GERD, anxiety, dizziness, and lightheadedness.Atrial fibrillation. Risk factors: Former tobacco use (cigarettes). Totalcigarette exposure of 30 pack-years. The patient has not smoked for 12 yr.Hypertension. Alcohol abuse.Labs, prior tests, procedures, and surgery:Catheterization. -Study data: Additional report: ECG report to be reported separately.Nuclear components: Rest/stress imaging. Study status: Routine.Location: Nuclear laboratory. Patient status: Observation. Objective:Diagnostic evaluation. Consent: The risks, benefits, and alternatives tothe procedure were explained to the patient and informed consent wasobtained. Height: 170.2 cm 67 in Weight: 65.9 kg 145 lb Body surfacearea: 1.77 m 2. Body mass index: 22.8 kg/m 2. Blood pressure:164/86 Heart rate: 74 bpm. Study completion: All catheters insertedduring the procedure were removed. The patient tolerated the procedure well. -Procedure data: Initial setup. The patient was brought to the laboratory.Intravenous access was established. A baseline ECG was recorded. Regadenoson(Lexiscan) stress test. Regadenoson (Lexiscan) was administered byintravenous bolus, followed by a 5 ml saline flush. The total dose was 0.4mg. over 10-15 seconds. The infusion was terminated due to protocolcompletion. Patient felt chest pressure, nausea and dizziness during stressportion. Isotope administration:+ + + +!Stage !Rest !Stress !+ + + +!Agent !Tc-99m tetrofosmin!Tc-99m tetrofosmin!+ + + +!Injected dose !7.3 mCi !23 mCi !+ + + +!Date !04/07/2025 !04/07/2025 !+ + + +!Injection time!07:30 AM !08:45 AM !+ + + +!Route !IV !IV !+ + + +!Tech initials !HC !HC !+ + + +Image properties: Gated imaging was performed. ------Stress results: Maximal heart rate during stress was 105 bpm (66% ofmaximal predicted heart rate). The maximal predicted heart rate was 158bpm.The target heart rate was 134 bpm.The heart rate response to stress isnormal. Normal blood pressure response to Lexiscan. -----Myocardial perfusion imaging: The summed perfusion score measured 21during stress and 15 at rest, with a difference of 8. The TID ratio is 1.13.Rest: LV regional perfusion: Severely reduced perfusion of the apicalseptal and apical myocardium; moderately reduced perfusion of the apicalanterior, apical inferior, and apical lateral myocardium; mildly reducedperfusion of the mid anterior, mid inferoseptal, and mid inferiormyocardium. Perfusion score: 15.Stress: LV regional perfusion: Severely reduced perfusion of the apicalanterior, apical septal, apical lateral, and apical myocardium; moderatelyreduced perfusion of the mid anterior, mid anteroseptal, apical inferior,and mid anterolateral myocardium; mildly reduced perfusion of the basalanteroseptal myocardium. Perfusion score: 21.Reversibility: LV regional perfusion: Moderately reduced perfusion of themid anteroseptal and mid anterolateral myocardium; mildly reduced perfusionof the mid-apical anterior, basal anteroseptal, and apical lateralmyocardium. Perfusion score: 8.Vascular region quantitation:+--------+ + + + +! !LAD extent!LCx extent!RCA extent!Total extent!+--------+ + + + +!Stress !64 !20 !1 !41 !+--------+ + + + +!Rest !47 !4 !29 !34 !+--------+ + + + +!Ischemic!49 !20 !0 !31 !+--------+ + + + +Gated SPECT: The calculated left ventricular ejection fraction is 47%. Summary:1. The TID ratio is 1.13.2. The calculated left ventricular ejection fraction is 47%.3. Maximal heart rate during stress was 105 bpm (66% of maximal predictedheart rate). The maximal predicted heart rate was 158 bpm.The targetheart rate was 134 bpm.The heart rate response to stress is normal.4. Regadenoson (Lexiscan) stress test. Regadenoson (Lexiscan) wasadministered by intravenous bolus, followed by a 5 ml saline flush. Thetotal dose was 0.4 mg. over 10-15 seconds. The infusion was terminateddue to protocol completion. Patient felt chest pressure, nausea anddizziness during stress portion.Impressions:1. Abnormal study after pharmacologic stress.2. LV perfusion is abnormal and consistent with ischemia. The study predictsa moderate risk for cardiac events.3. Study suggests myocardial ischemia, in the territory of the left anteriordescending coronary artery.Recommendations:1. Please correlate clinically.2. Cardiac catheterization.Prepared and electronically signed by::Colt Lima MD04/07/2025 11 :07 AMPrior Signatures:Quality Check by CHE Ortega - 04/07/2025 9:53:02 [facility]: NEETA OCHOA; NO FAMILY DOCTOR; CONNOR PLATT DOTechnologist:Dictated By: COLT LIMA Date/Time: 04/07/25, 0700This report was electronically signed in another vendor systemDictated By: COLT LIMA [facility] Work Phone: 04-07-2025 Note [facility] Name: TROY CARLSON [address] [facility] Phys: JESSEBERRYINDIANAMA[place] [address] : 1965 Age: [phone] Acct: [id number] Loc: [facility].OBSPAVMRN/Unit No.: [id number] Status: ADM INOExam Date: 04/07/25 Accession Number: [id number]: [id number] RAD/Left Heart [id number] .pdfWayne HospitalCardiac Catheterization [address] [place], [place] [address]Rzoze: ----Catheterization Laboratory StudyPatient: Robyn, Height: 67 in / 170.2 E cmDOB: 1965 Weight: 145.3 lb / 65.9 : M BMI/BSA: 22.7 kg/m 2 / m 2Age: 60 Procedure 04/07/2025Date:Performing Physician: Christiano Mancia DO [facility] Procedures performed:- Left coronary angiography.- Left heart catheterization.- Right coronary angiography.- Percutaneous intervention on the stenosis in the proximal LAD. Stentplacement. Balloon angioplasty. --------Summary:1. Severe left anterior descending coronary disease s/p successful IVUSguided PTCA/PCI.2. Low LVEDP.3. LAD: Proximal vessel lesion: Stent placement was performed (see 1stlesion).Recommendations: Aspirin lifelongPlavix for at least 12 monthsStatin (atorvastatin written for while inpatient, consider Crestor ondischarge)On Metoprolol. -------FindingsCoro nary arteries:Left main: Mild disease on IVUS.LAD: Proximal vessel lesion: The diagnostic study demonstrated a stenosis.Stent placement was performed (see 1st lesion). Proximal 95% stenosis withTIMI II flow (type A, 12mm, moderate calcium, no bifurcation, low thrombus).WASHER OPERATOR 3.0, IVUS showed 3.5-4.0mm vessel, 3.5mm [place] cutting atherectomy,stented with 3.5x12mm Paden WALT and post dilated with 4.0mm NC. Post lesionassessment: 0% stenosis with AMRIK III flow. IVUS showed no edge dissection,good expansion, and apposition with stent edge of ostium of left anteriordescending coronary and ends at bifurcation of large diagonalLeft circumflex: Dominant. Mild disease.Right coronary: Nondominant. Mild disease. ----Procedure:1. Initial setup. The patient was brought to the laboratory. Surface ECGleads, blood pressure measurements, pulse oximetric signals, andend-tidal CO2 tracings were monitored.2. Skin preparation. The planned puncture sites were prepped and draped inthe usual sterile manner.3. Sedation. Moderate sedation was administered with a personal physicianand RN supervision.4. Supplemental oxygen. Oxygen, 2 L/min was administered by nasal cannulathroughout the procedure.5. Local anesthesia. 1% lidocaine (5 ml) was administered.6. Right radial artery access. A 6F x 10 cm GlideSheath Slender sheath wasadvanced into the vessel.7. A 0.035 in x 260 cm EMERALD, Standard Tip wire was placed.8. A 5F x 110 cm Optitorque, Radial TIG 4.0 catheter was placed.9. Selective left coronary angiography. Contrast was injected. Images wereobtained using multiple projections.10. Left heart catheterization.11. A 5F DxTerity, JR 4.0 catheter was placed.12. Selective right coronary angiography. Contrast was injected using 2injections. Images were obtained using multiple projections.13. ACT was 366 sec.14. A stent was placed in the stenosis in the proximal LAD. See detaileddescription below (1st lesion intervention).15. ACT was 297 sec.16. Right radial artery hemostasis. The 6F x 10 cm GlideSheath Slendersheath was removed.Interventional narrative:1st lesion:Percutaneous intervention on the stenosis in the proximal LAD.1. Guider placement: a 6F x 100 cm VISTA BRITE TIP, .070 XB 3 guidingcatheter was placed.2. A .014/180cm AsaProvigent Prowaterflex wire was placed across the lesion.3. A 3.00mm x 12mm Emerge Monorail balloon was inserted.4. Balloon angioplasty. A 3.00mm x 12mm Emerge Monorail balloon wasemployed. The balloon was placed across the lesion and given a singleinflation with a maximum inflation pressure of 6 max.5. Intravascular ultrasound evaluation, using a .014 [place] Platinumcatheter.6. A 3.50 mm x 10 mm [place], MR balloon was inserted.7. Balloon angioplasty. A 3.50 mm x 10 mm [place], MR balloon wasemployed. The balloon was placed across the lesion and given a singleinflation with a maximum inflation pressure of 10 max.8. A 3.50 mm x 12 mm Paden Catron, RX stent was inserted.9. Stent placement. A 3.50 mm x 12 mm Paden Catron, RX stent was used. Thestent was advanced across the lesion and deployed with a singleinflation and a maximum pressure of 12 max.10. A 4.00 mm x 8 mm NC Emerge balloon was inserted.11. Balloon angioplasty. A 4.00 mm x 8 mm NC Emerge balloon was employed.The balloon was placed across the lesion and given three inflations witha maximum inflation pressure of 14 max.12. Intravascular ultrasound evaluation, using a .014 [place] Platinumcatheter. Study data: Race: White. Study location: Catheterizationlaboratory. Consent: The risks, benefits, and alternatives to theprocedure were explained to the patient and informed consent was obtained.Height: 170.2 cm. 67 in. Weight: 65.9 kg. 145.3 lb. Body surface area:1.77 m 2. Body mass index: 22.7 kg/m 2. In dications for Cath: ACS Less than or equal 24 hours.PCI Indications: New Onset Angina <= 2 months. Unstable angina. NSTE-ACS.Prior history: Tbw-TC-vkvycqvk myocardial infarction. Functional status:No dialysis usage. Risk factors: [facility] frailty scale: 3 - managing well.The patient is a former tobacco user. Hypertension. Dyslipidemia.Labs, prior tests, procedures, and surgery:Blood tests: Hemoglobin (pre-procedure) of 15.4 g/dl. Glucose of 83mg/dl. Serum sodium (Na) of 138 mM. CPK peak of 263 units/l. Hematocritof 44.1%. Blood urea nitrogen of 22.3 mg/dl. Serum potassium (K) of 3.8mM. CPK-MB (pre-procedure) of 6.2 ng/ml. Serum creatinine (currentadmission) of 0.95 mg/dl. HDL cholesterol of 63 mg/dl. Total cholesterolof 206 mg/dl. Serum creatinine of 0.95 mg/dl. Hemoglobin of 15.4 g/dl. -Hemodynamics:Circu latory function:+ + +!Stage description !Condition 1 - !+ + +!LV pressure s/d, ed !116/4, 8, dP/zr=0314 mm Hg/s!+ + +!Aortic pressure s/d (m)!153/76 (106) !+ + +Study completion: All catheters inserted during the procedure were removed.There were no apparent complications. Administered medications:Methylprednisolone , 125 mg , IV. Midazolam , 1 mg , IV. Fentanyl , for atotal dose of 100 mcg , IV. HEPARIN (IA) , 3,000 units , intra- arterially.NITROGLYCERIN (IA) , 200 mcg , intra-arterially. VERAPAMIL (IA) , 2.5 mg ,intra-arterially. HEPARIN (IV) , 5,000 units , IV. Nitroglycerin , 200 mcg, into a coronary artery. Clopidogrel (Plavix) , 600 mg , PO. Contrast:Omnipaque 65 ml (total dose). Discharge: The patient tolerated theprocedure well and was discharged from the lab in stable condition.Radiation exposure:Fluoroscopy time: 10.3 min.Total time: 10.3 min.Total radiation dose area product: 08402 mGy-cm 2.Total air KERMA: 404 mGy. Imaging was archived to PACS.Christiano Mancia DO, [facility] , [facility]04/07/2025 15:29CC: MAYNOR JORDAN; NO FAMILY DOCTOR; CONNOR PLATT DOTechnologist:Dictated By: CHRISTIANO MANCIA DOSigned Date/Time: 04/07/25, 4896This report was electronically signed in another vendor systemDictated By: CHRISTIANO MANCIA [facility] Work Phone: 04-07-2025 Note [facility] [place], [place] [address]Qfug Date: [id number] Name: TROY CARLSON Department: [facility].OBSPAVPatient ID: [id number] Room: VU97Cordhx: Male Crop Quantitative Geneticist: KSMDOB: 1965 Requested By: GRACIELA TRINIDADOrder Number: [id number] Reading MD: Jaiden FerriseasurementsIntervals AxisRate: 61 P: -40PR: 167 QRS: -5QRSD: 99 T: 31QT: 452QTc: 456Interpretive StatementsSinus rhythmProbable left ventricular hypertrophyAnterior Q waves, possibly due to LVHAbnrm T, consider ischemia, anterolateral ldsCompared to ECG 04/06/2025 07:32:14Q waves now presentPossible ischemia now presentT-wave abnormality no longer presentDictated By: Jaiden House [facility] Work Phone: 04-07-2025 Progress note Summary and PlanCardiology consulted for chest pain. Troy is a 60 y/o M with past medical history significant for cigarette smoker, depression, GERD, hypertension, hyperlipidemia, PTSD with mixed anxiety depressive disorder, PFO, previously noted paroxysmal atrial fibrillation on outpatient records however patient denies this (noted to occur during liver transplant), questionable history of sarcoidosis, 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 Today pain got so severe, radiated to both arms and came to the ER for further evaluation.He also states that most recent chest pains associated with nausea and diaphoresis. Describes chest pains as dull and achy. States he has not had any more chest pains since admission. Chest pain:-Overall patient reports chest pains that are cardiac in nature. -Troponin levels 35, 38, 46, 52, 49, overall flat trend. -Continue with aspirin and BB. -Echocardiogram preserved LVEF, no WMA, no Valvular abnormalities. - NMST shows ischemia in the territory of LAD. - plan for LHC today.HTN:-BP is elevated on admission and remains elevated, at this time, uptitrate meds.-Continue to monitor. Alcoholic cirrhosis/Chronic Hep C:-Patient reports sober since transplant, s/p liver transplant in 2016. Atrial Fibrillation:- Remote history, noted during transplant in 2016. -Patient denies any symptoms.-Telemetry review demonstrates SR, rates 60's-70's.Acute Problems1) Chest pain [R07.9] (Added: 04/06/2025)2) High troponin I level [R77.8] (Added: 04/06/2025)Chronic Problems1) Adjustment disorder with mixed anxiety and depressed mood [F43.23] (Diagnosed: 05/23/2014, Present on Admission)2) Alcoholic cirrhosis [K70.30] (Diagnosed: 04/06/2025, Present on Admission)3) Cholangiectasis [K83.8] (Diagnosed: 07/09/2018, Present on Admission)4) Chronic constipation [K59.09] (Diagnosed: 04/06/2025, Present on Admission)5) Chronic hepatitis C [B18.2] (Diagnosed: 05/17/2015, Present on Admission)6) Chronic hypoxemic respiratory failure [J96.11] (Diagnosed: 04/06/2025, Present on Admission)7) Chronic obstructive pulmonary disease [J44.9] (Diagnosed: 03/11/2014, Present on Admission)8) Deformity of foot [M21.969] (Diagnosed: 04/06/2025, Present on Admission)9) Depressive disorder [F32.A] (Diagnosed: 04/06/2025, Present on Admission)10) Erythrocytosis [D75.1] (Diagnosed: 04/06/2025, Present on Admission)11) Finding of salivary apparatus (Diagnosed: 04/06/2025, Present on Admission)12) Gastroesophageal reflux disease [K21.9] (Diagnosed: 07/09/2018, Present on Admission)13) H/O: liver recipient [Z94.4] (Diagnosed: 04/06/2025, Present on Admission)14) Hypertensive disorder [I10] (Diagnosed: 10/24/2016, Present on Admission)15) Hypothyroidism [E03.9] (Diagnosed: 09/12/2015, Present on Admission)16) Mixed hyperlipidemia [E78.2] (Diagnosed: 11/22/2019, Present on Admission)17) Obese class II [E66.9] (Diagnosed: 07/09/2018, Present on Admission)18) Osteoporosis [M81.0] (Diagnosed: 12/28/2020, Present on Admission)19) Paroxysmal atrial fibrillation [I48.0] (Diagnosed: 10/15/2015, Present on Admission)20) Patent foramen ovale [Q21.12] (Diagnosed: 07/11/2014, Present on Admission)21) Peripherally inserted central venous catheter in situ [Z95.828] (Diagnosed: 04/06/2025, Present on Admission)22) Posttraumatic stress disorder [F43.10] (Diagnosed: 11/04/2021, Present on Admission)23) Psoriasis [L40.9] (Diagnosed: 04/06/2025, Present on Admission)24) Sarcoidosis [D86.9] (Diagnosed: 04/17/2015, Present on Admission)25) Chronic alcoholism in remission [F10.21] (Diagnosed: 04/06/2025)SubjectivePt seen laying in bed appears comfortable and in NAD. pt denies cardiac c/o at this time.VitalsTemp: 98.2F, Location: Temporal ScanHeart Rate: 80, Position: UnknownBlood Pressure: 154/90, Position: Unknown, Location: UnknownRR: 15O2: 98% SaturationOral: 0Exam - Cardiology (Acute) GEN: Normals - No acute distress, Well nourished Other findings - TMax: 98.2, Heart Rate: 80, BP: 154/90 EYES: Normals - EOMI, Normal conjunctiva ENT: Normals - Hearing grossly intact, Mucous membranes moist, Pharynx clear NECK: Normals - Supple, Trachea midline RESP: Normals - Relaxed respirations, Clear anteriorly CV: Normals - Rhythm regular, Rate normal, No gallops GI: Normals - Non-tender, Soft NEURO: Normals - Alert, Oriented x 3 MS: Normals - No clubbing, Arms with normal range of motion PSYCH: Normals - Mood is appropriate SKIN: Normals - Warm and dryChargesMedical Complexity: HighCPT Code: 97109 - Level 3 Subsequent VisitReviewed LabsNa 138 (07-24-25)K 3.8 (04-06-25)Cl 105 (04-06-25)Calcium 8.7 (04-06-25)Mg 2 (04-06-25)Cr 0.95 (04-06-25)CrCl (Cockcroft-Gault Formula) 75 (04-06-25)GFR > 60 (04-06-25)WBC 5.4 (04-06-25)Hgb 15.4 (04-06-25)Hct 44.1 (04-06-25)PLT 109 (04-06-25)TROPONIN T (HIGH SENSITIVITY) 49 (04-06-25)proBNP 478 (04-05-25)TSH 0.363 (04-06-25)AST 32 (04-06-25)ALT 22 (04-06-25)T. Bilirubin 1 (04-06-25)Alkaline Phosphatase 96 (04-06-25)Albumin 4.3 (04-06-25)Reviewed Reports and StudiesProgress Note Hospital Medicine Team (JD Krishnamurthy) (04-07-25)Nuclear Medicine Report (04-07-25)Stress Test (04-07-25)EKG (04-07-25)EKG (04-07-25)NM MYOCARDIAL PERF REST/STRESS (04-07-25)General Note Hospital Medicine Team (04-06-25)Addendum Note Cardiology (Acute) (04-06-25)Adult Echo Report (04-06-25)ECG (04-06-25)ECG (04-06-25)Initial Consult Note Cardiology (Acute) (Jayce Ochoa NP) (04-06-25) [facility] 04-07-2025 Progress note Summary and Mgbf20-cjyd-twr male with pa st medical history of previous cigarette smoker, depression, GERD, hypertension, hyperlipidemia, PTSD with mixed anxiety depressive disorder, PFO, previously noted paroxysmal atrial fibrillation on outpatient records however patient denies this (noted to occur during liver transplant), questionable history of sarcoidosis, 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Patient states that for the past couple weeks he has been experiencing severe pressure-like substernal chest pain, seems to occur when he is active, relieved with rest, radiates to bilateral arms. On 04/05/25, the pain become severe, radiated to both arms and came to the ER for further evaluation.Chest x-ray nonacuteTroponin trending 26-33-25Wtevx pain: Trop trend 35->38->46->52->49. Echo showed LVEF 60-65% and no wall motion abnormality. Cardiology consulted, plan for stress test. Full dose aspirin added, continue with metoprolol. Lipid panel with LDL 123, HDL 63. Hypertension: BP was elevated, lisinopril dose increased per cardiology. Continue metoprolol. Paroxysmal atrial fibrillation: As noted above patient denies this but was noted in outpatient records probably occurred while hospitalized during liver transplant. Continue with metoprolol. CHADVASC- 1. Not routinely on AC. Alcoholic liver cirrhosis status post transplant: Continue with tacrolimusHypothyroidism: Per outpatient records. On no medications. TSH 0.3. GERD: Continue PPI therapyMultiple other comorbidities currently stableDISPO: Pending stress test and cardiology final recs.Discharge PlanningEstimated discharge date: 5Acute Problems1) Chest pain [R07.9] (Added: 04/06/2025)2) High troponin I level [R77.8] (Added: 04/06/2025)Chronic Problems1) Adjustment disorder with mixed anxiety and depressed mood [F43.23] (Diagnosed: 05/23/2014, Present on Admission)2) Alcoholic cirrhosis [K70.30] (Diagnosed: 04/06/2025, Present on Admission)3) Cholangiectasis [K83.8] (Diagnosed: 07/09/2018, Present on Admission)4) Chronic constipation [K59.09] (Diagnosed: 04/06/2025, Present on Admission)5) Chronic hepatitis C [B18.2] (Diagnosed: 05/17/2015, Present on Admission)6) Chronic hypoxemic respiratory failure [J96.11] (Diagnosed: 04/06/2025, Present on Admission)7) Chronic obstructive pulmonary disease [J44.9] (Diagnosed: 03/11/2014, Present on Admission)8) Deformity of foot [M21.969] (Diagnosed: 04/06/2025, Present on Admission)9) Depressive disorder [F32.A] (Diagnosed: 04/06/2025, Present on Admission)10) Erythrocytosis [D75.1] (Diagnosed: 04/06/2025, Present on Admission)11) Finding of salivary apparatus (Diagnosed: 04/06/2025, Present on Admission)12) Gastroesophageal reflux disease [K21.9] (Diagnosed: 07/09/2018, Present on Admission)13) H/O: liver recipient [Z94.4] (Diagnosed: 04/06/2025, Present on Admission)14) Hypertensive disorder [I10] (Diagnosed: 10/24/2016, Present on Admission)15) Hypothyroidism [E03.9] (Diagnosed: 09/12/2015, Present on Admission)16) Mixed hyperlipidemia [E78.2] (Diagnosed: 11/22/2019, Present on Admission)17) Obese class II [E66.9] (Diagnosed: 07/09/2018, Present on Admission)18) Osteoporosis [M81.0] (Diagnosed: 12/28/2020, Present on Admission)19) Paroxysmal atrial fibrillation [I48.0] (Diagnosed: 10/15/2015, Present on Admission)20) Patent foramen ovale [Q21.12] (Diagnosed: 07/11/2014, Present on Admission)21) Peripherally inserted central venous catheter in situ [Z95.828] (Diagnosed: 04/06/2025, Present on Admission)22) Posttraumatic stress disorder [F43.10] (Diagnosed: 11/04/2021, Present on Admission)23) Psoriasis [L40.9] (Diagnosed: 04/06/2025, Present on Admission)24) Sarcoidosis [D86.9] (Diagnosed: 04/17/2015, Present on Admission)25) Chronic alcoholism in remission [F10.21] (Diagnosed: 04/06/2025)SubjectivePatient reports he feels well overall. No acute events overnightVitalsTemp: 98.2F, Location: Temporal ScanHeart Rate: 57, Position: UnknownBlood Pressure: 137/67, Position: Unknown, Location: UnknownRR: 15O2: 98% SaturationOral: 0Exam GEN: Normals - No acute distress, Well nourished Other findings - TMax: 98.2 EYES: Normals - Vision grossly intact, EOMI ENT: Normals - Hearing grossly intact, Mucous membranes moist NECK: Normals - Supple RESP: Normals - Relaxed respirations, Clear anteriorly CV: Normals - Rhythm regular, Rate normal GI: Normals - Soft, Non-tender NEURO: Normals - Alert, Oriented x 3 PSYCH: Normals - Mood is appropriate, Mood is good SKIN: Normals - Warm and dryChargesMedical Complexity: ModerateCPT Code: 61552 - Level 2 Subsequent VisitReviewed LabsNa 138 (04-06-25)K 3.8 (04-06-25)Cl 105 (04-06-25)CO2 19 (04-06-25)Calcium 8.7 (04-06-25)Mg 2 (04-06-25)ANION GAP 14 (04-06-25)BUN 22.3 (04-06-25)Cr 0.95 (04-06-25)CrCl (Cockcroft-Gault Formula) 75 (04-06-25)GFR > 60 (04-06-25)BLOOD GLUCOSE 83 (04-06-25)WBC 5.4 (04-06-25)Hgb 15.4 (04-06-25)Hct 44.1 (04-06-25)PLT 109 (04-06-25)MCV 93 (04-06-25)MCHC 34.9 (04-06-25)TROPONIN T (HIGH SENSITIVITY) 49 (04-06-25)CKMB 6.2 (04-06-25)CPK 263 (04-06-25)Rel Index 2.4 (04-06-25)proBNP 478 (04-05-25)TSH 0.363 (04-06-25)HgA1C 5 (04-06-25)AST 32 (04-06-25)ALT 22 (04-06-25)T. Bilirubin 1 (04-06-25)Direct Bilirubin 0.4 (04-06-25)Indirect Bilirubin 0.6 (04-06-25)Alkaline Phosphatase 96 (04-06-25)Ammonia 25 (06-28-24)Reviewed Reports and StudiesEKG (04-07-25)EKG (04-07-25)Adult Echo Report (04-06-25) [facility] 04-07-2025 Progress note [facility] 04-07-2025 Progress note [facility] 04-07-2025 Progress note [facility] 04-06-2025 Progress note ROOM: OP20 ADM: 04/06/25 DIS: PATIENT NAME: TROY CARLSON : 1965 A GE: 60 RACE: W SEX: M HOSPITAL MEDICINE TEAM General Note - Duong Mcgill DO - 04/06/2025 6:49 PM (Started 04/06/2025 6:49PM) Note Patient admitted by my colleague I agree with his assessment and plan. Patient seen in the ER and was napping, asked to be left alone because he was quite early this morning. As he had not slept all night. Did however deny any further chest pain. - Appreciate cardiology consult. Echocardiogram shows ejection fraction of 60 to 65% and no wall motion abnormality. Plan is for stress test in AM. Electronically signed by Duong Mcgill DO SIGNED BY: DUONG MCGILL. 04/06/25 7930 cc: ~ This report was electronically signed in another vendor system [facility] Work Phone: 04-06-2025 Consult note [facility] 04-06-2025 Consult note Summary and Plan Cardiology consulted for chest pain. Troy is a 60 y/o M with past medical history significant for cigarette smoker, depression, GERD, hypertension, hyperlipidemia, PTSD with mixed anxiety depressive disorder, PFO, previously noted paroxysmal atrial fibrillation on outpatient records however patient denies this (noted to occur during liver transplant), questionable history of sarcoidosis, 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 Today pain got so severe, radiated to both arms and came to the ER for further evaluation.He also states that most recent chest pains associated with nausea and diaphoresis. Describes chest pains as dull and achy. States he has not had any more chest pains since admission. Chest pain:-Overall patient reports chest pains that are cardiac in nature. -Troponin levels 35, 38, 46, 52, 49, overall flat trend. -Continue with aspirin and BB. 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 HTN:-BP is elevated on admission and remains elevated, at this time, uptitrate meds.-Continue to monitor. Alcoholic cirrhosis/Chronic Hep C:-Patient reports sober since transplant, s/p liver transplant in 2016. Atrial Fibrillation:-Remote history, noted during transplant in 2016. -Patient denies any symptoms.-Telemetry review demonstrates SR, rates 60's-70's.Acute Problems1) Chest pain [R07.9] (Added: 04/06/2025)2) High troponin I level [R77.8] (Added: 04/06/2025)Chronic Problems1) Adjustment disorder with mixed anxiety and depressed mood [F43.23] (Diagnosed: 05/23/2014, Present on Admission)2) Alcoholic cirrhosis [K70.30] (Diagnosed: 04/06/2025, Present on Admission)3) Cholangiectasis [K83.8] (Diagnosed: 07/09/2018, Present on Admission)4) Chronic constipation [K59.09] (Diagnosed: 04/06/2025, Present on Admission)5) Chronic hepatitis C [B18.2] (Diagnosed: 05/17/2015, Present on Admission)6) Chronic hypoxemic respiratory failure [J96.11] (Diagnosed: 04/06/2025, Present on Admission)7) Chronic obstructive pulmonary disease [J44.9] (Diagnosed: 03/11/2014, Present on Admission)8) Deformity of foot [M21.969] (Diagnosed: 04/06/2025, Present on Admission)9) Depressive disorder [F32.A] (Diagnosed: 04/06/2025, Present on Admission)10) Erythrocytosis [D75.1] (Diagnosed: 04/06/2025, Present on Admission)11) Finding of salivary apparatus (Diagnosed: 04/06/2025, Present on Admission)12) Gastroesophageal reflux disease [K21.9] (Diagnosed: 07/09/2018, Present on Admission)13) H/O: liver recipient [Z94.4] (Diagnosed: 04/06/2025, Present on Admission)14) Hypertensive disorder [I10] (Diagnosed: 10/24/2016, Present on Admission)15) Hypothyroidism [E03.9] (Diagnosed: 09/12/2015, Present on Admission)16) Mixed hyperlipidemia [E78.2] (Diagnosed: 11/22/2019, Present on Admission)17) Obese class II [E66.9] (Diagnosed: 07/09/2018, Present on Admission)18) Osteoporosis [M81.0] (Diagnosed: 12/28/2020, Present on Admission)19) Paroxysmal atrial fibrillation [I48.0] (Diagnosed: 10/15/2015, Present on Admission)20) Patent foramen ovale [Q21.12] (Diagnosed: 07/11/2014, Present on Admission)21) Peripherally inserted central venous catheter in situ [Z95.828] (Diagnosed: 04/06/2025, Present on Admission)22) Posttraumatic stress disorder [F43.10] (Diagnosed: 11/04/2021, Present on Admission)23) Psoriasis [L40.9] (Diagnosed: 04/06/2025, Present on Admission)24) Sarcoidosis [D86.9] (Diagnosed: 04/17/2015, Present on Admission)25) Chronic alcoholism in remission [F10.21] (Diagnosed: 04/06/2025)Surgery Procedure History1) Transplantation of liver (2015)Implants1) Surgical meshReason for ConsultChest painConsulted ByBright Rincon is a 60 y/o M with past medical history significant for cigarette smoker, depression, GERD, hypertension, hyperlipidemia, PTSD with mixed anxiety depressive disorder, PFO, previously noted paroxysmal atrial fibrillation on outpatient records however patient denies this (noted to occur during liver transplant), questionable history of sarcoidosis, 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 Today pain got so severe, radiated to both arms and came to the ER for further evaluation.He also states that most recent chest pains associated with nausea and diaphoresis. Describes chest pains as dull and achy. States he has not had any more chest pains since admission.VitalsTemp: 98.0F, Location: OtherHeart Rate: 60, Position: UnknownBlood Pressure: 148/83, Position: Unknown, Location: UnknownRR: 16O2: 97% SaturationGlucose: 83.0Height: 170.18 cm (5 ft 7 in)Weight: 65.77 kg (145 lbs 0 oz)BMI: 22.7BSA: 1.76 m2IBW: 66.1 kgIV: 1000Exam - Cardiology (Acute) GEN: Normals - No acute distress, Well nourished Other findings - TMax: 98.2, Temp: 98.0, Heart Rate: 55, BP: 152/71, RR: 20, O2: 98% Saturation EYES: Normals - Normal conjunctiva ENT: Normals - Hearing grossly intact, Mucous membranes moist NECK: Normals - Trachea midline RESP: Normals - Relaxed respirations, Clear anteriorly, Clear posteriorly CV: Normals - Rhythm regular, Rate normal, No edema GI: Normals - Bowel sounds normal NEURO: Normals - Alert, Oriented x 3, Moves ext x 4 MS: Normals - Arms with normal range of motion PSYCH: Normals - Mood is appropriate, Mood is good SKIN: Normals - Warm and dry, No cyanosisReview of Systems CONST: Normals - No fevers or chills Abnormals - Fatigue or malaise EYES: Normals - Negative or noted elsewhere ENT: Normals - Negative or noted elsewhere RESP: Normals - No cough, No wheezing Abnormals - Shortness of breath CV: Normals - No swelling in legs, No passing out Abnormals - Chest pain GI: Normals - No diarrhea, No abdominal pain Abnormals - Nausea or vomiting : Normals - Negative or noted elsewhere MS: Normals - Negative or noted elsewhere SKIN: Normals - Negative or noted elsewhere NEURO: Normals - Negative or noted elsewhere PSYCH: Normals - Negative or noted elsewhere ENDO: Normals - Negative or noted elsewhere HEME/LYMPH: Normals - Negative or noted elsewhereHome Medications1) Cholecalciferol Oral 1,000 units daily2) Garlic Oral 1 mg daily3) Lisinopril Oral 5 mg daily4) Metoprolol Oral 24 hr Tab (Succinate) 25 mg daily5) Pantoprazole (Sodium) Oral Delayed Release 40 mg daily6) Paroxetine Oral 30 mg daily7) Tacrolimus Oral (Prograf) 1.5 mg every 12 hoursAllergieshydrocodone, Severe WhealLatex, Natural Rubber, Moderate Unknown reactionFamily HistoryFather: Heart diseaseMother: Heart diseaseHomeResidence: HomeEn[facility]e services: NoneDME: CaneSocial HistoryTobacco Use Status: Former Type: Smoking (Non-electronic)Alcohol Use Status: Alcoholism in remissionSubstance Use Status: NeverChargesMedical Complexity: HighCPT Code: 43044 - Level 5 Initial ConsultationReviewed LabsNa 138 (04-06-25)K 3.8 (04-06-25)Cl 105 (04-06-25)CO2 19 (04-06-25)Calcium 8.7 (04-06-25)Mg 2 (04-06-25)ANION GAP 14 (04-06-25)BUN 22.3 (04-06-25)Cr 0.95 (04-06-25)CrCl (Cockcroft-Gault Formula) 75 (04-06-25)GFR > 60 (04-06-25)BLOOD GLUCOSE 83 (04-06-25)WBC 5.4 (04-06-25)Hgb 15.4 (04-06-25)Hct 44.1 (04-06-25)PLT 109 (04-06-25)MCV 93 (04-06-25)MCHC 34.9 (04-06-25)TROPONIN T (HIGH SENSITIVITY) 49 (04-06-25)CKMB 6.2 (04-06-25)CPK 263 (04-06-25)Rel Index 2.4 (04-06-25)TSH 0.363 (04-06-25)HgA1C 5 (04-06-25)AST 32 (04-06-25)ALT 22 (04-06-25)T. Bilirubin 1 (04-06-25)Direct Bilirubin 0.4 (04-06-25)Indirect Bilirubin 0.6 (04-06-25)Alkaline Phosphatase 96 (04-06-25)Albumin 4.3 (04-06-25)T. Protein 7 (04-06-25)Total Cholesterol 206 (04-06-25)LDL 123 (04-06-25)HDL 63 (04-06-25)TG 101 (04-06-25)CHOL/HDL RATIO 3.27 (04-06-25)Reviewed Reports and StudiesInitial Evaluation Care Management (Acute) (04-06-25)EKG (04-06-25)Initial Note Hospital Medicine Team (Poonam Platt DO) (04-06-25)EKG (04-06-25)Emergency Visit (04-05-25)EKG (04-05-25)XR Chest 2V PA Lat (04-05-25)EKG (04-05-25) [facility] 04-06-2025 History and physical note 60-year-old male with past medical histo ry of previous cigarette smoker, depression, GERD, hypertension, hyperlipidemia, PTSD with mixed anxiety depressive disorder, PFO, previously noted paroxysmal atrial fibrillation on outpatient records however patient denies this (noted to occur during liver transplant), questionable history of sarcoidosis, 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 Today pain got so severe, radiated to both arms and came to the ER for further evaluation. Associated with diaphoresis and nausea and vomiting. [facility] 04-06-2025 Note [facility] Name: TROY CARLSON [address] Phys: [place] [address] : 1965 Age: [phone] Acct: [id number] Loc: ERMRN/Unit No.: [id number] Status: REG ERExam Date: 04/05/25 Accession Number: [id number]: [id number] RAD/XR Chest 2V PA LatXR Chest 2V PA LatXR Chest 2V PA Lat, 04/05/2025 11:58 PM EDT, BRITTNEY ROACHINDICATION:cp, sobCOMPARISON: None available.TECHNIQUE: PA and lateral uprightFindings:Cardiomediastinal silhouette: NormalPulmonary vasculature: NormalLung parenchyma: NegativePleural spaces: NegativeImpression:No active cardiopulmonary disease evidentCC: JONNA HOUSE; KENNY ROACH; NO FAMILY DOCTORTechnologist: LULU Hayesated By: Tyrone HUBER Date/Time: 04/06/25, 0152This report was electronically signed in another vendor systemDictated By: JAYRO HUBER [facility] Work Phone: 04-06-2025 Note [facility] Name: ROBYNTROY [address] Phys: [place] [address] : 1965 Age: [phone] Acct: [id number] Loc: [facility].OBSPAVMRN/Unit No.: [id number] Status: ADM INOExam Date: 04/06/25 Accession Number: [id number]: [id number] US/USV Echocardiogram [id number] .pdf*[facility] [place] [address] [id number]: [phone] EchocardiogramPatient: Troy Carlson Height: 66.9 in / 170 cm Study Date: 04/06/2025EDOB: 1965 Weight: 144.7 lb / 65.8 : 62 BSA: 1.77 m 2 : M BP: 158 / 79 Physician: * Connor Platt*Reading Physician: * Anabella Porras MD*Latex Foam Worker: * Rula Bennett I ndications: Chest Pain, unspecified. ----History: PMH: GERD. COPD. Afib. Risk factors: Hypertension. -----Study data: Transthoracic echocardiogram. Procedure: Transthoracicechocardiography was performed. Image quality was good. Complete 2D,complete spectral Doppler, and color Doppler. Location: Echo laboratory.Patient status: Inpatient. HR: 57 bpm. BMI: 22.8 kg/m 2. Study status:Routine. -------ConclusionsSummary:1. Left ventricle: The cavity size is normal. Wall thickness is normal.Systolic function is normal by the biplane method of disks. The estimatedejection fraction is 60-65%. Wall motion is normal; there are no regionalwall motion abnormalities. Left ventricular diastolic function parametersare normal.2. Right ventricle: The cavity size is normal. Wall thickness is normal.Systolic function is normal. Systolic pressure is within the normalrange.3. Pericardium, extracardiac: There is no pericardial effusion. -FindingsLeft ventricle: The cavity size is normal. Wall thickness is normal.Systolic function is normal by the biplane method of disks. The estimatedejection fraction is 60-65%. Wall motion is normal; there are no regionalwall motion abnormalities. Left ventricular diastolic function parametersare normal.Right ventricle: The cavity size is normal. Wall thickness is normal.Systolic function is normal. Systolic pressure is within the normal range.The RV pressure during systole by Doppler is 26 mm Hg.Left atrium: The atrium is normal in size.Right atrium: The atrium is normal in size.Mitral valve: The leaflets are mildly thickened. There is no evidence ofstenosis. There is mild regurgitation. The mean diastolic gradient is1.0 mm Hg.Aortic valve: The valve is trileaflet. The leaflets are moderatelythickened and mildly calcified. There is no evidence of stenosis. Thereis no significant regurgitation. The peak systolic velocity is 1.5 m/sec.The ratio of LVOT to aortic valve peak velocity is 0.66. The meansystolic gradient is 5.2 mm Hg. The peak systolic gradient is 8.1 mm Hg.Tricuspid valve: The leaflets are mildly thickened. There is no evidenceof stenosis. There is mild regurgitation.Pulmonic valve: The leaflets are mildly thickened. There is no evidenceof stenosis. There is mild regurgitation.Aorta: The aortic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 (jaundice). You have sudden swelling in your abdomen. You vomit. You feel dizzy or you faint. Your blood sugar is high (over 300 mg/dL). Summary Acute pancreatitis happens when inflammation of the pancreas suddenly occurs and the pancreas becomes irritated and swollen. This condition is typically caused by alcohol abuse, drug abuse, or gallstones. Treatment for this condition usually requires a stay in the hospital. This information is not intended to replace advice given to you by your health care provider. Make sure you discuss any questions you have with your health care provider. Document Released: 08/31/2006 Document Revised: 06/20/2019 Document Reviewed: 03/07/2019 [employer] Patient Education 2020 [employer] Additional Information VACCINATE! IT SAVES LIVES! Members of the community who have not yet received the COVID-19 vaccine and would like to receive it can visit one of [facility] vaccine clinics. There are many vaccine clinic locations within the [facility]. For locations and available times, please visit https://[email or web address].[place].gov/. It is important to note that some COVID mobile vaccine clinics are held outdoors and may be canceled in rainy or stormy conditions. To learn more about pediatric vaccinations (ages 5-11), we invite you to visit the [facility] webpage. https://www.[email or web address].org/pages/[email or web address]-Ldtcw-Tlbywlbxdna-Aslqptcwsz-[email or web address]-Pdi stions.htmlTo learn more about the COVID-19 vaccine, we invite you to visit the CDC website for a list of frequently asked questions.https://www.cdc.gov/coronavirus/2019-ncov/vaccines/faq.html [facility] Patient Portal Access Instructions: Stay connected with your healthcare team and access your personal medical information anytime with the [facility] Patient Portal. Please follow the directions below to create your [facility] account: 1.Access the email account you provided upon registration to the hospital/physician office.2.Look for an invitation email from [facility].3.Open the email and access the invitation link: AcceptInvitation to [facility].4.Fill in the required jennings to create your account. To access your account, visit [employer]. Click the blue button labeled Access Patient Portal and then log in with the username and password that you created in the steps above. You will be able to view your test results, lab results, a summary of your visits, upcoming appointments and more. There is also a convenient messaging option where you can send secure messages to your p rovider. In addition, you will have the ability to download any documents or summaries to your computer and/or send the information securely to a physician. Remember that your healthcare information is confidential, so carefully consider who you will allowto register on the [facility] Patient Portal for access to your information. You can also access the [employer] Patient Portal on the [employer]Quot[employer]here cal. Simply click on Patient Portal and then log into your account. If you would like to receive a full copy of your medical records, please contact the [facility] Medical Records Department by calling [phone], Thursday through Thursday between 8 a.m. and 4:30 p.m. HOW TO SAFELY DISPOSE OF PRESCRIPTION MEDICATIONS Please use one of the following methods to safely dispose of your unused medications. 1.Use a drug disposal kit: the drug disposal pouch allows you to safely discard your old and unuseddrugs. Ask your nurse to give you one when you are discharged.2.Visit a local take-back location: Many local pharmacies and police departments have programs that collect old and unwanted prescriptiondrugs. Call your local pharmacy or go to http://[employer]/9R8Jm3o to find one close to you.3.Make use of household items: Use cat litter or old coffee grounds to dispose medications if other options arenot available. Mix your drugs with these household products, seal them in an airtight container andthrow it into the garbage. Call [facility]: [phone] to be sure your drugs can be disposed of in this way. Some medicines may require a different approach.4.Never flush your medications down the toilet. IF YOU HAVE BEEN PRESCRIBED AN OPIOID FOR PAIN If you have been prescribed an opioid (such as hydrocodone, oxycodone or morphine), it is critical to understand the possible side effects and risks of opioid pain medications. Even when taken as directed, opioids can have several side effects including: Tolerance, meaning you might need to take more of a medication for the same pain relief. Nausea, vomiting and/or constipation. Sleepiness, dizziness, dry mouth, confusion, depression or itching. Physical dependence, meaning you have withdrawal symptoms when a medication is stopped, can develop within a few days. KNOW YOUR RESPONSIBILITIES It is important to know exactly how much and how often to take the opioid pain medications you are prescribed. Never take opioids in higher amounts or more often than prescribed. Do not combine opioids with alcohol or other drugs that cause drowsiness, such as benzodiazepines, also known as benzos, including diazepam and alprazolam, muscle relaxants or sleep aids. Never sell or share prescription opioids. This is illegal. Store opioids in a secure place and out of reach of others (including children, family, friends and visitors). The last page of this document has been signed and retained as a CHART COPY. Signatures Patient Education Materials Acute Pancreatitis Medication Leaflets My discharge plan and instructions have been reviewed and explained to me and ROBYN Turpin CHARLES E understand my current condition and have read and understand these discharge instructions. I have received a written copy of the plan/instructions. If I have questions, I am aware that I should contact my doctor. 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 MIP images are provided for review. COMPARISON: Prior CT abdomen pelvis dated 04/04/2024. HISTORY: ORDERING SYSTEM PROVIDED HISTORY: Reason for Exam: r/o stones in CBD History of liver transplant and cholecystectomy. FINDINGS: Limited imaging of the lung bases demonstrates no evidence of pleural effusion or other signal abnormality. The intrahepatic biliary tree appears to be patent without filling defect. There is demonstration of a stricture seen at the anastomosis between the hepatic duct and common bile duct. This is likely secondary to an underlying surgical anastomosis. This is best seen on sequence 10 image 9, sequence 11 image 8, and sequence 12 image 9. The gallbladder is surgically absent. The common bile duct is otherwise not dilated and there is no evidence of filling defect to suggest choledocholithiasis. There is normal tapering of the distal CBD. The pancreatic duct also appears normal in course and caliber, with no evidence of pancreatic divisum. Numerous renal cysts are noted for which no dedicated follow-up is recommended. There is borderline splenomegaly with the spleen measuring 14.0 cm in AP dimension. Visualized adrenal glands and pancreas are normal in appearance. The gastrointestinal tract is unremarkable as visualized. There is no intraabdominal mass, adenopathy or free fluid appreciated on this exam. IMPRESSION: - Stricture seen at the anastomosis between the hepatic duct and common bile duct. This is likely secondary to underlying surgical anastomosis given reported history of liver transplant. - Otherwise no evidence of choledocholithiasis. - Borderline splenomegaly. - Numerous renal cysts. Interpreted by: Baudilio Levi MD Preliminary Report By: Baudilio Levi MD Electronically signed By Baudilio Levi MD Dictated Date: 04/05/2024 4:47:47 PM Prelim Date: 04/05/2024 4:58:14 PM Sign Date: 04/05/2024 4:58:14 PM Ordering Provider: CELY [facility]07-23-2024 Evaluation + Plan noteExtracted from: Title:History and Physical Author:CELY HENDRICKS CRYPTANALYST-PAPER BAG MAKER Date:04/05/24 1. Acute pancreatitis Acute, new onset 2 days ago, accompanied by epigastric pain, nausea and vomiting. Lipase greater than 375. CT of a/p negative for anything acute. Send patient for MRCP due to report of gallstones obstructing CBC after gallbladder removed. States he had a stent removed recently. Lipid profile negative. Will start clear liquids after MRCP. Repeat BMP and magnesium level in the am. 2. Hypertension Chronic. Continue current antihypertensives. SBP goal of 140 or less. 3. Hyperlipidemia Chronic. Continue statin at current dose. Lipid profile within normal limits. 4. S/P liver transplant Past history of hepatitis C causing liver failure. Transplant 8 years ago. Continue tacrolimus. DVT prophylaxis with Lovenox sc. Code status: Full Code. Labs, diagnostic test and progress notes reviewed as noted in HPI. Plan of care discussed with patient. All questions answered. Patient verbalizes understanding and is agreeable with plan of care. This case was discussed with collaborating physician, Dr. Giancarlo Ovalles. 75 minutes spent reviewing past diagnostic tests, reviewing lab results, vital sign trends, medical history, reviewing medications and ordering home medications, examining patient, discussed plan of care with care team, collaborating with physician, and documenting in chart. [facility] 07-23-2024 Telephone encounter Note* Telephone Encounter - Giancarlo Kendall MD - 04/05/2024 1:56 PM EDT noted [facility]07-23-2024 Miscellaneous Notes* Telephone Encounter - Giancarlo Kendall MD - 04/05/2024 1:56 PM EDT noted * Telephone Encounter - Katie Muse LPN - 04/05/2024 1:50 PM EDT Pt calls to let pcp know that he is in the [facility] with pancreatitis. Pt reportshe was vomiting for two days and didn't know why. Pt reports he will schedule a follow up when he gets out of hospital. Katie Muse LPN documented [facility] Telephone encounter Note * Telephone Encounter - Katie Muse LPN - 04/05/2024 1:50 PM EDT Pt calls to let pcp know that he is in the hospital [facility] with pancreatitis. Pt reportshe was vomiting for two days and didn't know why. Pt reports he will schedule a follow up when he gets out of hospital. Katie Muse LPN [facility]07-23-2024 Note Date of Service 04/05/2024 Chief Complaint C/o dizziness, upper ABD discomfort for the past couple days. States has been unable to keep meds down for 2 days. Also reports some intermittent constipation x1 week. History of Present Illness Patient is a 59-year-old male, who follows with Dr. Giancarlo Kendall with a past medical history significant for hypertension, hyperlipidemia, depression, liver failure s/p liver transplant, and osteoarthritis, presented to [facility] emergency department with the chief complaint of abdominal pain with nausea and vomiting. Patient states that he developed epigastric pain about 2 days ago. He was having frequent nausea and vomiting associated with it over the 2 days. He felt that he could not keep even water down. He became concerned because he is on anti-rejection medications due to his liver transplant and knows that his pills were coming right back out. The liver transplant wasabout 8 years ago. Patient states that he does not have a gallbladder but just had a stent removed recently that was placed due to gallstones lodging he thinks in his common bile duct. He does feel better this morning but adds that the pain medications are helping a lot. He denies any fever, chills, cough, shortness of breath, chest pain, or dysuria. In the emergency department, CT of the abdomen/pelvis revealed no acute intra- abdominal pathology, postsurgical changes, mild splenomegaly and mild diverticulosis. CBC remarkable for hemoglobin 18.8 and hematocrit 53.6. BMP significant for sodium 134. Liver enzymes within normal limits. Lipase greater than 375. Patient was administered 1 liter of NS, 4 mg Zofran IV and 5 mg valium IV int he ED. The case was discussed with the ED physician who recommended admission for further evaluation and treatment of acute pancreatitis. Patient was transferred to medical surgical unit. We will start LR @ 200cc/hr. We will keep patient NPO except for sips and chips for 24 hours. We will continue IV pain medication and antiemetics. We will send patient for MRCP to rule out gallstone pancreatitis. Check lipid profile. Repeat BMP and magnesium level in the am. Patient seen and evaluated this morning while resting in bed. He states that he is feeling better. He adds that even with the pain medications he can tell that his pain is decreasing. Patient asking if he can go home today. He states that he has PTSD and it is worse in the hospital. After the MRCP,we will start clear liquids and oral pain medication. If he is tolerating those, then we can talk ab out patient going home today. On exam, he appears to have no tenderness to palpation in his abdomen. He states his organs hurt inside. He has had no further episodes of nausea and vomiting. He is agreeable with this plan of care. All questions. Review of Systems Review of Systems: Reviewed in detail, including general health, HEENT, cardiovascular, respiratory, gastrointestinal, genitourinary, endocrine, musculoskeletal, neurologic, vascular, skin, and psychiatric. All are negative except for those listed in the History of Present Illness. Physical Exam Vitals and Measurements T: 36.7 C (Oral) HR: 80 (Apical) RR: 18 BP: 131/69 SpO2: 95% HT: 170 cm WT: 76 kg BMI: 26.3 Weight Dosing Weight: 76 kg (04/05/24) Dosing Weight: 79.5 kg (04/04/24) General: No acute distress. Patient is alert and appropriate. Skin: No rash. Skin is warm, dry and intact. HEENT: Head is normocephalic, atraumatic. Pupils are equal, round and reactive. Neck: Supple. No lymphadenopathy, thyromegaly. Lungs: Bilaterally clear but diminished without crepitation or wheeze. Unlabored. Heart: Heart is regular rhythm, S1, S2. No murmurs, gallops or rubs. Abdomen: Abdomen is soft, nontender. Bowels sounds present in all quadrants. Extremities: No clubbing, cyanosis, or edema. Peripheral pulses palpable. No calf tenderness. Neurological: Patient is awake and alert to person, place and time. Following simple commands, moving all extremities. Lab Results 04/05 05:24 WBC: 4.5 L Hgb: 16.0 Hct: 45.7 Platelet: 85 L Neutrophil %: 69.5 Protime: 13.6 PT International Ratio: 1.2 Glucose Level: 85 Sodium Level: 140 Potassium Level: 4.0 BUN: 15 Creatinine Lvl (s): 1.19 04/04 21:05 Glucose Level: 94 Sodium Level: 134 L Potassium Level: 4.0 BUN: 19 H Creatinine Lvl (s): 1.10 04/04 20:41 WBC: 7.2 Hgb: 18.8 H Hct: 53.6 H Platelet: 134 Neutrophil %: 78.4 Imaging Results and Diagnostics CT Abd/Pelvis w/ IV Contrast Only Result Date: April 04, 2024 Verified By: Contributor_systemRHOIT CLINICAL STATEMENT: IMPRESSION: 1. No acute intra-abdominal pathology. Postsurgical changes. 2. Mild splenomegaly. 3. Mild diverticulosis. Assessment/Plan 1. Acute pancreatitis Acute, new onset 2 days ago, accompanied by epigastric pain, nausea and vomiting. Lipase greater than 375. CT of a/p negative for anything acute. Send patient for MRCP due to report of gallstones obstructing CBC after gallbladder removed. States he had a stent removed recently. Lipid profile negative. Will start clear liquids after MRCP. Repeat BMP and magnesium level in the am. 2. Hypertension Chronic. Continue current antihypertensives. SBP goal of 140 or less. 3. Hyperlipidemia Chronic. Continue statin at current dose. Lipid profile within normal limits. 4. S/P liver transplant Past history of hepatitis C causing liver failure. Transplant 8 years ago. Continue tacrolimus. DVT prophylaxis with Lovenox sc. Code status: Full Code. Labs, diagnostic test and progress notes reviewed as noted in HPI. Plan of care discussed with patient. All questions answered. Patient verbalizes understanding and is agreeable with plan of care. This case was discussed with collaborating physician, Dr. Giancarlo Ovalles. 75 minutes spent reviewing past diagnostic tests, reviewing lab results, vital sign trends, medicalhistory, reviewing medications and ordering home medications, examining patient, discussed plan of care with care team, collaborating with physician, and documenting in chart. Procedure/Surgical History No qualifying data available. Medications Home Medications (10) Active alendronate 70 mg oral tablet 70 mg = 1 tab(s), Oral, qWeek Bactrim DS 800 mg-160 mg oral tablet 1 tab(s), Oral, Mon/Wed/Fri cholecalciferol 25 mcg (1000 intl units) oral capsule 25 mcg = 1 cap(s), Oral, Daily lisinopril 5 mg oral tablet 5 mg = 1 tab(s), Oral, Daily metoprolol succinate 25 mg oral TABLET extended release 25 mg = 1 tab(s), Oral, qDay pantoprazole 40 mg oral enteric coated tablet 40 mg = 1 tab(s), Oral, qDay PARoxetine 20 mg oral tablet 20 mg = 1 tab(s), Oral, qDay simvastatin 40 mg oral tablet 40 mg = 1 tab(s), Oral, qHS tacrolimus 0.5 mg oral capsule 0.5 mg = 1 cap(s), Oral, q12h tacrolimus 1 mg oral capsule 1 mg = 1 cap(s), Oral, q12h Allergies Vicodin Immunizations No qualifying data available. Code Status Code Status - Ordered -- 04/04/24 23:58:00 EDT, Full Code, Constant Order Digitally Signed by CELY HENDRICKS on 04/05/2024 12:12 PM [facility]07-22-2024 Note ORIGINAL EXAMINATION: CT OF THE ABDOMEN AND PELVIS WITH CONTRAST04/04/2024 11:[address] ABDOMEN/PELVIS WITH CONTRAST TECHNIQUE: CT of the abdomen and pelvis was performed with the administration of intravenous contrast. Multiplanar reformatted images are provided for review. Automated exposure control, iterative reconstruction, and/or weight based adjustment of the mA/kV was utilized to reduce the radiation dose to as low as reasonably achievable. COMPARISON: None available HISTORY: ORDERING SYSTEM PROVIDED HISTORY: Reason for Exam: pain FINDINGS: The size, density, and morphology of the liver, adrenals, kidneys, pancreas and unopacified loops of bowel are unremarkable. Prior cholecystectomy. 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 Duodenal diverticulum is noted. Spleen is enlarged. The opacified aorta demonstrates normal size and morphology without aneurysmal dilation or dissection. There are no enlarged lymph nodes by pathologic size criteria. Appendix is normal. A few scattered diverticular noted without surrounding inflammatory changes. There is no free fluid within the pelvis. The bladder and pelvic organs have an unremarkable CT appearance. The osseous structures are without gross lytic or sclerotic lesion. The lung bases are clear. IMPRESSION: 1. No acute intra-abdominal pathology. Postsurgical changes. 2. Mild splenomegaly. 3. Mild diverticulosis. Interpreted by: Jb Hwang MD Preliminary Report By: Jb Hwang MD Electronically signed By Jb Hwang MD Dictated Date: 04/04/2024 11:38:30 PM Prelim Date: 04/04/2024 11:42:10 PM Sign Date: 04/04/2024 11:42:10 PM Ordering Provider: [facility] Instructions* Patient Instructions* Giancarlo Kendall MD - 02/26/2024 1:49 PM EDT Hold metoprolol the day before and morning of the stress test. [facility] in [facility] History of Present illness Narrative* Giancarlo Kendall MD - 02/26/2024 1:00 PM EDT Patient presents with: Follow Up HPI: Patient presents today for office visit for follow up. Will be moving down near to [place]. Joint pain: Pain is increasing. Describes as dull but constant. Has had to use some muscle relaxer's he had to help. He feels related to osteoporosis. Dicussed osteoporosis is usually not a cause of achiness. Allergies: Trouble after being outside with pollen. Doesn't take anything to help with this. Feels like cough is worse with this. Only taking the Bactrim if he feels sick. Discussed risks of not taking meds and that he may be harming himself. PSYCH: Currently tolerating medications well: Yes . States that sometimes will take 40mg if feelingextra panic that day. Side effects: No. Sleep issues: Yes. Energy changes: No. Appetite changes: comes and goes. Current depression: Yes. Current anxiety: Yes. Suicidal ideation: No. Taking his simvastatin. Complains of joints aching and trouble getting around especially in the morning. HTN: Not taking BP meds. States that meds weren't filled. Have discussed with him before to be following with cardiology and transplant. Did see lung cancer screening clinic last year. Had mild calcification of his coronary arteries. Short of breath with exertion. Limits his activities. No worsening edema. MEDICATIONS: Current Outpatient Medications Medication Sig PARoxetine (PAXIL) 20 mg tablet Take 1 tablet by mouth once daily. tacrolimus IR (PROGRAF) 0.5 mg capsule Take 1 capsule (0.5 mg) by mouth twice daily. Take with 1mg capsule for total 1.5mg twice daily tacrolimus IR (PROGRAF) 1 mg capsule Take 1 capsule (1mg) by mouth twice daily. Take in addition toone 0.5mg capsule for total dose of 1.5mg twice daily sulfamethoxazole-trimethoprim (BACTRIM DS) 800-160 mg per tablet 1 tablet every Thursday, Thursday, and Thursday. metoprolol succinate ER (TOPROL XL) 25 mg 24 hr tablet Take 1 tablet by mouth once daily. lisinopril (ZESTRIL) 5 mg tablet Take 1 tablet by mouth once daily. simvastatin (ZOCOR) 40 mg tablet Take 1 tablet by mouth daily at bedtime. pantoprazole DR (PROTONIX) 40 mg tablet Take 1 tablet by mouth daily before breakfast. Take on empty stomach, 1/2 hr before meal. alendronate (FOSAMAX) 70 mg tablet Take 1 tablet by mouth one time a week. Take with a full glass of water, on an empty stomach; do NOT lie down for 30minutes. On sundays Cholecalciferol, Vitamin D3, 25 mcg (1,000 unit) cap Take 1 capsule by mouth once daily. (Patient not taking: Reported on 07/10/2023) Garlic 1,000 mg cap Take 1 capsule by mouth once daily. No current facility-administered medications for this visit. ALLERGIES: ALLERGIES Allergen Reactions Acetaminophen Hives Hydrocodone Hives Morphine Hives, Other: See Comments Latex Rash Ketorolac Unknown Pt states allergy, told not to take with liver transplant Vancomycin (Bulk) Rash, Itching Vicodin [Hydrocodon* Itching PAST MEDICAL HISTORY Diagnosis Date BPH with obstruction/lower urinary tract symptoms Cirrhosis (HCC) ETOH abuse stopped etoh in 09/27 H/O liver transplant (HCC) 10/03/2015 Hepatitis C Hepatopulmonary syndrome (HCC) used oxygen 3 to 6 liters and off O2 since liver transplant Hypertension Marijuana use, continuous 12/28/2020 MRSA (methicillin resistant Staphylococcus aureus) 11/2011 New onset seizure (HCC) 10/05/2015 06/11/[address] Anurag Doyle:noted one seizure after transplant. No seizures since, off keppra.Initial EEG showed small amplitudes polyspikes overriding periodic patterns), later EEG became normal, brain MRI unremarkable. He has been off Keppra since March 2016. No further seizure. Non-ischemic cardiomyopathy (HCC) Osteoporosis Panic attacks Prostatitis 11/2011 Psoriasis PTSD (post-traumatic stress disorder) Sarcoidosis of the lungs Splenomegaly Thrombocytopenia (HCC) Pancytopenia resolved after liver transplant Unspecified hypothyroidism Hypothyroidism PAST SURGICAL HISTORY Procedure Laterality Date COLONOSCOPY FLX DX W/COLLJ SPEC WHEN PFRMD 10/14/13 Colonoscopy ESOPHAGOGASTRODUODENOSCOPY TRANSORAL DIAGNOSTIC 10/14/13 EGD ESOPHAGOGASTRODUODENOSCOPY TRANSORAL DIAGNOSTIC 01/31/2019 EGD INGUINAL HERNIA REPAIR HX 10/15/2016 LIVER BIOPSY NERVE ALTERATION 83? LEFT ELBOW ABOUT PAST SURGICAL HISTORY OF 83? Deviated septum PAST SURGICAL HISTORY OF Liver transplant : 09/2015 PAST SURGICAL HISTORY OF PFO repair 2015 PICC LINE INSERT/CONSULT 11/01/2015 PICC LINE INSERTION (PICC [place]AM) ([place]) 11/22/2021 TONSILLECTOMY PRIMARY/SECONDARY <AGE 10 Tonsillectomy FAMILY HISTORY Problem Relation Age of Onset COPD Mother Lung Cancer Mother Alzheimer's Disease Father Arthritis Brother Back issues Diabetes Maternal Grandmother Diabetes Paternal Grandfather Amblyopia Daughter Social History Tobacco Use Smoking status: Former Packs/day: 1.00 Years: 23.00 Additional pack years: 0.00 Total pack years: 23.00 Types: Cigarettes Start date: 09/14/1979 Quit date: 2012 Years since quittin.4 Smokeless tobacco: Never Vaping Use Vaping Use: Never used Substance Use Topics Alcohol use: No Comment: Quit 10/2011 Drug use: Yes Types: Marijuana Comment: now only marijuana to help with appetite and slee[ Reviewed current medications, allergies, past medical history, surgical history, family history andsocial history today. REVIEW OF SYSTEMS All other reviewed and negative other than HPI. HEALTH MAINTENANCE: Reviewed health maintenance issues today and recommended the following in detail. RSV Vaccine(1 - 1-dose 60+ series) Never done Covid-19 Vaccine(2022- season) due on 06/04/2023 Behavioral Health Screening Never done Colorectal Cancer Screening due on 02/01/2024 VITALS: BP 131/86 Pulse 87 Wt 78.5 kg (173 lb) SpO2 97% BMI 27.10 kg/m Last 4 Encounter Wt Readings: Date: Wt: 07/10/2023 70.3 kg (155 lb) 04/09/2023 71.7 kg (158 lb) 02/06/2023 72 kg (158 lb 12.8 oz) 02/06/2023 72.7 kg (160 lb 3.2 oz) PHYSICAL EXAMINATION: General appearance: Well appearing, alert, in no acute distress, well-hydrated, well nourished. Skin: Skin color, texture, turgor normal, no suspicious rashes or lesions Lungs: Lungs clear to auscultation. No wheezing, rhonchi, rales Heart: RRR without murmur, gallop, or rubs. No ectopy Abdomen: Normal abdominal exam, Abdomen soft, non-tender. Bowel sounds normal. No masses, organomegaly Extremities: No deformities, edema, skin discoloration, clubbing or cyanosis. Good capillary refill. Musculoskeletal: No joint swelling, deformity, or tenderness ASSESSMENT/PLAN: 1. Paroxysmal atrial fibrillation (HCC) - ICD9: 427.31, ICD10: I48.0 (primary diagnosis) - recommended follow up with cardiology 2. Essential hypertension - ICD9: 401.9, ICD10: I10 - take meds regularly. - LISINOPRIL 5 MG TABLET 3. Non-ischemic cardiomyopathy (HCC) - ICD9: 425.4, ICD10: I42.8 - follow with cardiology 4. Mixed hyperlipidemia - ICD9: 272.2, ICD10: E78.2 - take mes. 5. Lung nodule - ICD9: 793.11, ICD10: R91.1 - follow with lung screening clinic. 6. S/P liver transplant (HCC) - ICD9: V42.7, ICD10: Z94.4 - follow with transplant. - call get routine labs. 7. BPH with obstruction/lower urinary tract symptoms - ICD9: 600.01, 599.69, ICD10: N40.1, N13.8 - stable 8. Hypothyroidism, unspecified type - ICD9: 244.9, ICD10: E03.9 - get tsh 9. Other osteoporosis without current pathological fracture - ICD9: 733.09, ICD10: M81.8 -discussed meds. 10. PTSD (post-traumatic stress disorder) - ICD9: 309.81, ICD10: F43.10 - offered psych 11. Gastroesophageal reflux disease without esophagitis - ICD9: 530.81, ICD10: K21.9 - take meds. - PANTOPRAZOLE 40 MG TABLET,DELAYED RELEASE 12. Anxiety - ICD9: 300.00, ICD10: F41.9 - continue med. - PAROXETINE 20 MG TABLET 13. Liver replaced by transplant (HCC) - ICD9: V42.7, ICD10: Z94.4 - METOPROLOL SUCCINATE ER 25 MG TABLET,EXTENDED RELEASE 24 HR 14. Osteoporosis, unspecified osteoporosis type, unspecified pathological fracture presence - ICD9:733.00, ICD10: M81.0 - ALENDRONATE 70 MG TABLET 15. SOB (shortness of breath) - ICD9: 786.05, ICD10: R06.02 - unable to exercise on treadmill physically due to multiple health issues. Red flags for re-assessment reviewed with patient in detail. - ECG COMPLETE - NM CARDIAC PERF STRESS/PHARM - REGADENOSON 0.4 MG/5 ML INTRAVENOUS SYRINGE - AMINOPHYLLINE 250 MG/10 ML INTRAVENOUS SOLUTION - METOPROLOL TARTRATE 5 MG/5 ML INTRAVENOUS SOLUTION - INSERT IV ([place]) - IV DISCONTINUE 16. Chest wall pain - ICD9: 786.52, ICD10: R07.89 - ECG COMPLETE - XR CHEST 2V FRONTAL/LAT - NM CARDIAC PERF STRESS/PHARM - REGADENOSON 0.4 MG/5 ML INTRAVENOUS SYRINGE - AMINOPHYLLINE 250 MG/10 ML INTRAVENOUS SOLUTION - METOPROLOL TARTRATE 5 MG/5 ML INTRAVENOUS SOLUTION - INSERT IV ([place]) - IV DISCONTINUE Giancarlo Kendall MD documented in this encounterUniversity [facility]als [facility]06-11-2024 Telephone encounter Note * Telephone Encounter - Yuliana Velázquez LPN - 02/23/2024 11:12 AM EDT Patient is out of medication past few days, he has doubled up on his dose few times in past month. Scheduled an appt for Sunday 02/25 at 1 pm with PCP. He said he is out of other heart medications butcould not give me the names of the medications. He has not seen [facility] in over a year, can not remember his name. Please advise Prescription Refill Information The patient has been identified by name and date of : Yes Caregiver verified no other encounters exist for this prescription request: Yes Caregiver confirmed with patient/requestor that no other refills are due, in the near future, with this provider at this time: Yes The last office visit in the department: 08/13/2023 Does the patient have a future office visit with this provider/department: Yes 02/26/2024 at 1 pm Requested Prescriptions Pending Prescriptions Disp Refills PARoxetine (PAXIL) 20 mg tablet 30 tablet 0 Sig: Take 1 tablet by mouth once daily. Yuliana Velázquez LPN February 23, 2024 11:17 AM [facility]06-11-2024 Miscellaneous Notes* Telephone Encounter - Yuliana Velázquez LPN - 02/23/2024 11:12 AM EDT Patient is out of medication past few days, he has doubled up on his dose few times in past month. Scheduled an appt for Sunday 02/25 at 1 pm with PCP. He said he is out of other heart medications butcould not give me the names of the medications. He has not seen [facility] in over a year, can not remember his name. Please advise Prescription Refill Information The patient has been identified by name and date of : Yes Caregiver verified no other encounters exist for this prescription request: Yes Caregiver confirmed with patient/requestor that no other refills are due, in the near future, with this provider at this time: Yes The last office visit in the department: 08/13/2023 Does the patient have a future office visit with this provider/department: Yes 02/26/2024 at 1 pm Requested Prescriptions Pending Prescriptions Disp Refills PARoxetine (PAXIL) 20 mg tablet 30 tablet 0 Sig: Take 1 tablet by mouth once daily. Yuliana Velázquez LPN February 23, 2024 11:17 AM documented in this encounterUniversity Hospitals [facility]05-14-2024 Telephone encounter Note * Telephone Encounter - Graciela Quach - 01/26/2024 3:17 PM EDT Prescription Refill Information The patient has been identified by name and date of : Yes Caregiver verified no other encounters exist for this prescription request: Yes Caregiver confirmed with patient/requestor that no other refills are due, in the near future, with this provider at this time: Yes The last office visit in the department: 08-13-2023 Does the patient have a future office visit with this provider/department: Yes Requested Prescriptions Pending Prescriptions Disp Refills PARoxetine (PAXIL) 20 mg tablet 30 tablet 0 Sig: Take 1 tablet by mouth once daily. Patient is out of meds and is having difficulty with anxiety. He is asking this be called in today. Graciela Hampton January 26, 2024 3:18 PM [facility]05-14-2024 Miscellaneous Notes* Telephone Encounter - Graciela Quach - 01/26/2024 3:17 PM EDT Prescription Refill Information The patient has been identified by name and date of : Yes Caregiver verified no other encounters exist for this prescription request: Yes Caregiver confirmed with patient/requestor that no other refills are due, in the near future, with this provider at this time: Yes The last office visit in the department: 08-13-2023 Does the patient have a future office visit with this provider/department: Yes Requested Prescriptions Pending Prescriptions Disp Refills PARoxetine (PAXIL) 20 mg tablet 30 tablet 0 Sig: Take 1 tablet by mouth once daily. Patient is out of meds and is having difficulty with anxiety. He is asking this be called in today. Graciela Hampton January 26, 2024 3:18 PM documented in this encounterUniversity Hospitals [facility]04-18-2024 Miscellaneous Notes* Telephone Encounter - Peyton Peguero RN - 12/31/2023 2:55 PM EDT Lab orders placed. Peyton Peguero (Cassie) RN, BSN, [facility] Liver Overhead [employer] * Telephone Encounter - Moraima Gardner - 12/31/2023 2:28 PM EDT Jesse called in from the [facility], requesting a standing lab order for Charles. Molina can be reached at [phone] fax#[phone]. documented in this encounterUniversity Hospitals [facility]04-12-2024 Miscellaneous Notes* Telephone Encounter - Randi Lauren MA - 12/25/2023 2:13 PM EDT Patient informed Rx sent to pharmacy. Did not wish to schedule appt at this time. Randi Lauren MA * Telephone Encounter - Giancarlo Kendall MD - 12/25/2023 1:54 PM EDT Due for follow up soon. * Telephone Encounter - Yuliana Velázquez LPN - 12/25/2023 1:49 PM EDT Patient calling he said having such a anxiety issue can not even go outside. He said he knows he needs to come for an appt and see Thomas Matute also. Patient said he is out of his Paroxetine rx. Patient asking if something could be sent to [facility] pharmacy today. Please advise documented in this encounterUniversity Hospitals [facility] Center03-04-2024 Miscellaneous Notes* Telephone Encounter - Aylin Matute LPN - 11/16/2023 2:02 PM EST Patient scheduled tomorrow to be seen. * Telephone Encounter - Loretta Chatterjee - 11/16/2023 1:47 PM EST Patient is asking for possible increase in the dosage strength as this is not working for him anymore and he is starting to have more panic attacks because it is not as effective anymore. Please advise Patient has been identified by name and date of : Yes Requested Prescriptions Pending Prescriptions Disp Refills PARoxetine (PAXIL) 20 mg tablet 30 tablet 0 Sig: Take 1 tablet by mouth once daily. RX INSTRUCTIONS: Patient aware RX will be sent to pharmacy. No need to notify patient. Loretta Hampton documented in this encounterUniversity Hospitals [facility] Center02-09-2024 Miscellaneous Notes* Telephone Encounter - Jennifer Mathew RN - 10/23/2023 4:00 PM EST Patient has been identified by name and date of : Yes, Jennifer Mathew RN Date 10/23/2023 Time 3:50 PM Patient phones for refill(s): Requested Prescriptions Pending Prescriptions Disp Refills tacrolimus IR (PROGRAF) 0.5 mg capsule 60 capsule 11 Sig: Take 1 capsule (0.5 mg) by mouth twice daily. Take with 1mg capsule for total 1.5mg twice daily tacrolimus IR (PROGRAF) 1 mg capsule 60 capsule 11 Sig: Take 1 capsule (1mg) by mouth twice daily. Take in addition to one 0.5mg capsule for total dose of 1.5mg twice daily Please advise. Thank you. Jennifer Mathew RN. documented in this encounterUniversity Hospitals [facility]02-09-2024 Miscellaneous Notes* Telephone Encounter - Jennifer Mathew RN - 10/23/2023 3:54 PM EST Patient has been identified by name and date of : Yes, Jennifer Mathew RN Date 10/23/2023 Time 3:50 pm Patient phones for refill(s): Requested Prescriptions Pending Prescriptions Disp Refills sulfamethoxazole-trimethoprim (BACTRIM DS) 800-160 mg per tablet 36 tablet 3 Si tablet every Thursday, Thursday, and Thursday. Date of last office visit in primary care: 07/10/2023 Date of next office visit in primary care: Visit date not found Patient also requests an increase of paroxetine. He reports current dose is helping the shakes and panic attacks but thinks another 5 mg would be beneficial. Please advise. Thank you. Jennifer Mathew RN. documented in this encounterUniversity Hospitals [facility] Center11-30-2023 History of Present illness Narrative* Giancarlo Kendall MD - 08/13/2023 10:17 AM EST Patient did not sign in for appt. documented in this encounterUniversity Hospitals [facility] Center11-14-2023 Miscellaneous Notes* Telephone Encounter - Flor Galaviz LPN - 07/28/2023 2:46 PM EST Spoke with pt and information listed below given. Pt verbalizes understanding. Flor Galaviz LPN * Telephone Encounter - Giancarlo Kendall MD - 07/28/2023 11:17 AM EST Needs seen here or urgent care down there. * Telephone Encounter - Nina Covarrubias - 07/28/2023 10:43 AM EST Patient called he is in [place] right now and he said he is having awful pain in the left hipscheduled appointment for 08/03 with Saida Lowery but he was hoping Faiza could call him because he knows his situation and he has been through so much with Faiza Please advise documented in this encounterUniversity Hospitals Tripoint [facility] Center10-27-2023 History of Present illness Narrative* Giancarlo Kendall MD - 07/10/2023 3:31 PM EDT Patient presents with: Follow Up: 3 month follow up HPI: Patient presents today for office visit for follow up. Anxiety has be worse lately. He is reluctant to start meds. He sees psychology. Trouble with eating due to moods. No suicidal ideation. Still benefiting from service animal. Getting labs later today. No chest pain or worsening edema. No new gi issues. MEDICATIONS: Current Outpatient Medications Medication Sig tacrolimus IR (PROGRAF) 0.5 mg capsule Take 1 capsule (0.5 mg) by mouth twice daily. Take with 1mg capsule for total 1.5mg twice daily tacrolimus IR (PROGRAF) 1 mg capsule Take 1 capsule (1mg) by mouth twice daily. Take in addition toone 0.5mg capsule for total dose of 1.5mg twice daily simvastatin (ZOCOR) 40 mg tablet Take 1 tablet by mouth daily at bedtime. pantoprazole DR (PROTONIX) 40 mg tablet Take 1 tablet by mouth daily before breakfast. Take on empty stomach, 1/2 hr before meal. lisinopril (ZESTRIL, PRINIVIL) 5 mg tablet Take 1 tablet by mouth once daily. metoprolol succinate ER (TOPROL XL) 25 mg 24 hr tablet Take 1 tablet by mouth once daily. alendronate (FOSAMAX) 70 mg tablet Take 1 tablet by mouth one time a week. Take with a full glass of water, on an empty stomach; do NOT lie down for 30minutes. On sundays diclofenac (VOLTAREN ARTHRITIS PAIN) 1 % topical gel Apply 2 g to affected area four times daily. Cholecalciferol, Vitamin D3, 25 mcg (1,000 unit) cap Take 1 capsule by mouth once daily. (Patient not taking: Reported on 07/10/2023) Garlic 1,000 mg cap Take 1 capsule by mouth once daily. No current facility-administered medications for this visit. ALLERGIES: ALLERGIES Allergen Reactions Acetaminophen Hives Hydrocodone Hives Morphine Hives, Other: See Comments Latex Rash Ketorolac Unknown Pt states allergy, told not to take with liver transplant Vancomycin (Bulk) Rash, Itching Vicodin [Hydrocodon* Itching PAST MEDICAL HISTORY Diagnosis Date BPH with obstruction/lower urinary tract symptoms Cirrhosis (HCC) ETOH abuse stopped etoh in 09/27 H/O liver transplant (HCC) 10/03/2015 Hepatitis C Hepatopulmonary syndrome (HCC) used oxygen 3 to 6 liters and off O2 since liver transplant Hypertension Marijuana use, continuous 12/28/2020 MRSA (methicillin resistant Staphylococcus aureus) 11/2011 New onset seizure (HCC) 10/05/2015 06/11/[address] Anurag Doyle:noted one seizure after transplant. No seizures since, off keppra.Initial EEG showed small amplitudes polyspikes overriding periodic patterns), later EEG became normal, brain MRI unremarkable. He has been off Keppra since March 2016. No further seizure. Non-ischemic cardiomyopathy (HCC) Osteoporosis Panic attacks Prostatitis 11/2011 Psoriasis PTSD (post-traumatic stress disorder) Sarcoidosis of the lungs Splenomegaly Thrombocytopenia (HCC) Pancytopenia resolved after liver transplant Unspecified hypothyroidism Hypothyroidism PAST SURGICAL HISTORY Procedure Laterality Date COLONOSCOPY FLX DX W/COLLJ SPEC WHEN PFRMD 10/14/13 Colonoscopy ESOPHAGOGASTRODUODENOSCOPY TRANSORAL DIAGNOSTIC 10/14/13 EGD ESOPHAGOGASTRODUODENOSCOPY TRANSORAL DIAGNOSTIC 01/31/2019 EGD INGUINAL HERNIA REPAIR HX 10/15/2016 LIVER BIOPSY NERVE ALTERATION 83? LEFT ELBOW ABOUT PAST SURGICAL HISTORY OF 83? Deviated septum PAST SURGICAL HISTORY OF Liver transplant : 09/2015 PAST SURGICAL HISTORY OF PFO repair 2015 PICC LINE INSERT/CONSULT 11/01/2015 PICC LINE INSERTION ([place]ICC [place]AM) ([place]) 11/22/2021 TONSILLECTOMY PRIMARY/SECONDARY <AGE 10 Tonsillectomy FAMILY HISTORY Problem Relation Age of Onset COPD Mother Lung Cancer Mother Alzheimer's Disease Father Arthritis Brother Back issues Diabetes Maternal Grandmother Diabetes Paternal Grandfather Amblyopia Daughter Social History Tobacco Use Smoking status: Former Packs/day: 1.00 Years: 23.00 Additional pack years: 0.00 Total pack years: 23.00 Types: Cigarettes Start date: 09/14/1979 Quit date: 2012 Years since quittin.8 Smokeless tobacco: Never Vaping Use Vaping Use: Never used Substance Use Topics Alcohol use: No Alcohol/week: 0.0 standard drinks of alcohol Comment: Quit 10/2011 Drug use: Yes Types: Marijuana Comment: now only marijuana to help with appetite and slee[ Reviewed current medications, allergies, past medical history, surgical history, family history andsocial history today. REVIEW OF SYSTEMS All other reviewed and negative other than HPI. VITALS: BP 120/70 Pulse 80 Wt 70.3 kg (155 lb) SpO2 97% BMI 24.28 kg/m Last 4 Encounter Wt Readings: Date: Wt: 04/09/2023 71.7 kg (158 lb) 02/06/2023 72 kg (158 lb 12.8 oz) 02/06/2023 72.7 kg (160 lb 3.2 oz) 01/19/2023 70.3 kg (155 lb) PHYSICAL EXAMINATION: General appearance: Well appearing, alert, in no acute distress, well-hydrated, well nourished. Skin: Skin color, texture, turgor normal, no suspicious rashes or lesions Lungs: Lungs clear to auscultation. No wheezing, rhonchi, rales Heart: RRR without murmur, gallop, or rubs. No ectopy Abdomen: Normal abdominal exam, Abdomen soft, non-tender. Bowel sounds normal. No masses, organomegaly Extremities: No deformities, edema, skin discoloration, clubbing or cyanosis. Good capillary refill. Musculoskeletal: No joint swelling, deformity, or tenderness Psych: answers appropriately ASSESSMENT/PLAN: 1. Essential hypertension - ICD9: 401.9, ICD10: I10 (primary diagnosis) - Controlled - Continue current medications - Recommend home blood pressure monitoring, to bring results to next visit - Encouraged sodium restriction, DASH or Mediterranean diet - Recommend regular aerobic exercise 2. Encounter for immunization - ICD9: V03.89, ICD10: Z23 - INFLUENZA VACCINE, AGE 6 MO - 64 YR, QUADRIVALENT (AFLURIA, FLULAVAL, FLUZONE) 3. PFO (patent foramen ovale) - ICD9: 745.5, ICD10: Q21.12 - stable. 4. Paroxysmal atrial fibrillation (HCC) - ICD9: 427.31, ICD10: I48.0 No changes. 5. Non-ischemic cardiomyopathy (HCC) - ICD9: 425.4, ICD10: I42.8 - has been ok. Sees cardiology 6. Mixed hyperlipidemia - ICD9: 272.2, ICD10: E78.2 7. Lung nodule - ICD9: 793.11, ICD10: R91.1 - following ct scans. 8. Splenomegaly - ICD9: 789.2, ICD10: R16.1 9. Bilateral inguinal hernia without obstruction or gangrene, recurrence not specified - ICD9: 550.92, ICD10: K40.20 - stable. 10. Chronic hepatitis C without hepatic coma (HCC) - ICD9: 070.54, ICD10: B18.2 - stable. 11. Hepatitis C virus infection without hepatic coma, unspecified chronicity - ICD9: 070.70, ICD10:B19.20 Treating. 12. Gastroesophageal reflux disease, unspecified whether esophagitis present - ICD9: 530.81, ICD10:K21.9 13. Stress hyperglycemia - ICD9: 790.6, ICD10: R73.9 14. PTSD (post-traumatic stress disorder) - ICD9: 309.81, ICD10: F43.10 .paxil. Discussed risks and benefits of new medication with the patient. Advised them to call if any side effects or questions. Giancarlo Kendall MD documented in this encounterUniversity Hospitals Tripoint [facility] Center10-18-2023 Miscellaneous Notes* Telephone Encounter - Giancarlo Kendall MD - 07/01/2023 3:13 PM EDT agree * Telephone Encounter - Maria Luz Nunes RN - 07/01/2023 12:55 PM EDT Protocol recommends Home self care. Care plan reviewed with patient. Patient voices understanding. Advised patient that if symptoms get worse to go to the ER. Pt just thought he should let us know about the vomiting. Pt instructed to drink more liquids today and not just water. Pt states he feels okay. Also states he hasn't bee eating well. Encouraged to try 6 small meals a day but start with liquids only then try toast, crackers, banana, applesauce. He has appt 07/[address] Kendall. Reason for Disposition MILD or MODERATE vomiting (e.g., 1 - 5 times / day) Answer Assessment - Initial Assessment Questions 1. VOMITING SEVERITY: At around 1230 pm, pt was talking to ex on the phone and suddenly felt like he was going to vomit. He was not nauseated prior to this. States vomited 5 times and it was allliquid and bright yellow in color. Now feels fine. - MILD: 1 - 2 times/day - MODERATE: 3 - 5 times/day, decreased oral intake without significant weight loss or symptoms of dehydration - SEVERE: 6 or more times/day, vomits everything or nearly everything, with significant weight loss, symptoms of dehydration 2. ONSET: around 1230 3. FLUIDS: Pt states he has not eaten anything today but has been drinking water without any difficulty 4. ABDOMINAL PAIN: Denies any abd pain 5. DIARRHEA: Denies 6. CONTACTS: Denies 7. CAUSE: Unsure maybe his medications 8. HYDRATION STATUS: Pt denies any signs of dehydration. States he urinated shortly before he threwup and has drank water without any problems today 9. OTHER SYMPTOMS: Pt states has had a head cold for about a week. Has had a runny nose, some coughing and sneezing, chills and sweating. Occasionally he coughs up some clear phlegm. States also had some dry heaves off and on over the past week. 10. : n/a Protocols used: [id number] documented in this encounterUniversity Hospitals Tripoint Medical Center08-18-2023 History of Present illness Narrative* Zulma Fong RT(R) - 05/01/2023 1:40 PM EDT Radiology Service Progress Note PATIENT NAME: Troy Carlson DATE OF SERVICE: May 01, 2023 TIME: 3:32 PM PATIENT IDENTITY VERIFICATION COMPLETED USING TWO (2) IDENTIFIERS: Name and Date of confirmedby patient verbally. FALL SCREENING: Has the patient had 2 falls in the last year or 1 fall with injury or currently using an Ambulatory Assistive Device (Walker, Cane, Wheelchair, Crutches, etc.)? No PATIENT GENDER DATA: Male PATIENT RELEVANT IMPLANT DATA REVIEWED: Yes RADIOLOGY DEPARTMENT: CT; Exam(s) Completed: Chest PERIPHERAL IV DATA: Not applicable SIGNED BY: RT Benito(R) May 01, 2023 3:32 PM documented in this encounterUniversity Hospitals Tripoint Medical Center08-17-2023 Miscellaneous Notes* Telephone Encounter - Nga Cai LPN - 04/30/2023 4:21 PM EDT No need for follow up per ARLETTE Cai LPN * Telephone Encounter - Elissa Gutiérrez - 04/30/2023 1:59 PM EDT Patient has scheduled Lung Screening CT per tele enc from 04/13/23. Patient is wanting to know if he will need to schedule a follow up appointment with Cortney Shipley CNP. Patient will arrive for CT tomorrow, 05/01/23. Please notify patient of plan care upon arrival. documented in this encounterUniversity Hospitals Tripoint Medical Center08-09-2023 Miscellaneous Notes* Telephone Encounter - Jennifer Mathew RN - 04/22/2023 10:02 AM EDT Patient calls to let provider's office know that he has re-applied for disability and the social security office will be reaching out to office at some time he believes in the next week to speak directly to Dr. Kendall about whether or not patient continues to be disabled. Sending as FYI per patient request to office staff. Jennifer Mathew RN documented in this encounterUniversity Hospitals Tripoint Medical Center08-08-2023 Miscellaneous Notes* Telephone Encounter - Flor Galaviz LPN - 04/21/2023 11:47 AM EDT Pt called and prescription below was sent to a pharmacy he no longer uses. Patient has been identified by name and date of : Yes, Provider Dr. Kendall Date 04/21/23 Time 11:50 am Patient phones for refill(s): Requested Prescriptions Pending Prescriptions Disp Refills diclofenac (VOLTAREN ARTHRITIS PAIN) 1 % topical gel 240 g 5 Sig: Apply 2 g to affected area four times daily. Date of last office visit in primary care: 04/09/23 next apt 07/10/23 Last 2 Encounter Wt Readings: Date: Wt: 04/09/2023 71.7 kg (158 lb) 02/06/2023 72 kg (158 lb 12.8 oz) Previous labs/tests for medication: Not applicable Thank you. Flor Galaviz LPN documented in this encounterUniversity Hospitals Tripoint Medical Center07-28-2023 Miscellaneous Notes* Telephone Encounter - Randi Lauren - 04/10/2023 4:18 PM EDT Patient informed and verbalized understanding. Would like all further communication to be via my chart. Randi Lauren * Telephone Encounter - Giancarlo Kendall MD - 04/10/2023 4:07 PM EDT That does not mean he has hep c that shows he was exposed at some point there is a viral load test pending that actually is what we we use to tell. He needs to wait on us to get the results for that Most of his lab tests are pending. * Telephone Encounter - Jennifer Mathew RN - 04/10/2023 3:41 PM EDT Patient calls panicking that he is positive for Hepatitis C based on Hepatitis C antibody test. Attempted to explain that patient was infected at some point in time and will always have antibodies. Patient says that doesn't make sense and wants Dr. Kendall to explain it. Several other labs are still pending. Jennifer Mathew RN documented in this encounterUniversity Hospitals Tripoint Medical Center07-27-2023 History of Present illness Narrative* Giancarlo Kendall MD - 04/09/2023 2:56 PM EDT Patient presents with: Follow Up HPI: Patient presents today for office visit for follow up. Reapplied for social security and was denied. Having some shortness of breath. Mainly with exertion. Still smoking marijuana but states not frequently. CT completed 02/06/23: Pneumobilia, new from prior study. Stable appearance of mild intrahepatic biliary ductal dilatation. Stable splenomegaly. It was felt to be post op. Still seeing Psych. Has emotional support dog now. Really beneficial for his mental health. Overall doing much better. She helps with his panic attacks. Will be moving to [place]. They are placing a pad and getting him a camper with a kennel. Seen at ER for mildly increased renal function in January that prompted his ER visit. Has had xrays on his hands. Showed some degenerative changes in his right hand. Offered ortho. Discussed voltaren gel. Never did physical therapy. Component Latest Ref Rng & Units 02/06/2023 WBC 3.70 - 11.00 k/uL 5.17 RBC 4.20 - 6.00 m/uL 4.81 Hemoglobin 13.0 - 17.0 g/dL 15.0 Hematocrit 39.0 - 51.0 % 42.5 MCV 80.0 - 100.0 fL 88.4 MCH 26.0 - 34.0 pg 31.2 MCHC 30.5 - 36.0 g/dL 35.3 RDW-CV 11.5 - 15.0 % 13.0 Platelet Count 150 - 400 k/uL 110 (L) MPV 9.0 - 12.7 fL 10.5 Neut% % 78.4 Abs Neut (ANC) 1.45 - 7.50 k/uL 4.05 Lymph% % 10.6 Abs Lymph 1.00 - 4.00 k/uL 0.55 (L) [place]% % 7.9 Abs [place] <0.87 k/uL 0.41 Eosin% % 2.9 Abs Eosin <0.46 k/uL 0.15 Baso% % 0.2 Abs Baso <0.11 k/uL <0.03 Immature Gran % % 0.0 IMMATURE GRANS (ABS) <0.10 k/uL <0.03 DTYPE Auto Protein, Total 6.3 - 8.0 g/dL 6.9 Albumin 3.9 - 4.9 g/dL 4.6 Calcium 8.5 - 10.2 mg/dL 9.2 Bilirubin, Total 0.2 - 1.3 mg/dL 0.3 Alkaline Phosphatase 38 - 113 U/L 96 AST 14 - 40 U/L 20 ALT 10 - 54 U/L 16 Glucose 74 - 99 mg/dL 109 (H) BUN 9 - 24 mg/dL 23 Creatinine 0.73 - 1.22 mg/dL 1.39 (H) Sodium 136 - 144 mmol/L 137 Potassium 3.7 - 5.1 mmol/L 4.5 Chloride 97 - 105 mmol/L 103 CO2 22 - 30 mmol/L 24 Anion Gap 9 - 18 mmol/L 10 eGFR >=60 mL/min/1.73m 58 (L) Color Yellow Yellow Clarity Clear Clear Glucose, Urine Negative Negative Bilirubin, Urine Negative Negative Ketones, Urine Negative Negative Specific [place], Ur 1.005 - 1.030 1.020 Hemoglobin/Blood,Ur Negative Negative pH, Urine 5.0 - 8.0 5.5 Protein, Urine Negative Negative Urobilinogen 0.2-1.0 EU/dL 0.2 EU/dL Nitrites Negative Negative Leukest Negative Negative WBC, Urine 0-5 /HPF 0-5 /HPF RBC, Urine 0-3 /HPF 0-3 /HPF Culture 10,000 -<50,000 CFU/ml Mixed microbiota (A) MEDICATIONS: Current Outpatient Medications Medication Sig tacrolimus IR (PROGRAF) 0.5 mg capsule Take 1 capsule (0.5 mg) by mouth twice daily. Take with 1mg capsule for total 1.5mg twice daily tacrolimus IR (PROGRAF) 1 mg capsule Take 1 capsule (1mg) by mouth twice daily. Take in addition toone 0.5mg capsule for total dose of 1.5mg twice daily simvastatin (ZOCOR) 40 mg tablet Take 1 tablet by mouth daily at bedtime. pantoprazole DR (PROTONIX) 40 mg tablet Take 1 tablet by mouth daily before breakfast. Take on empty stomach, 1/2 hr before meal. lisinopril (ZESTRIL, PRINIVIL) 5 mg tablet Take 1 tablet by mouth once daily. metoprolol succinate ER (TOPROL XL) 25 mg 24 hr tablet Take 1 tablet by mouth once daily. alendronate (FOSAMAX) 70 mg tablet Take 1 tablet by mouth one time a week. Take with a full glass of water, on an empty stomach; do NOT lie down for 30minutes. On sundays Cholecalciferol, Vitamin D3, 25 mcg (1,000 unit) cap Take 1 capsule by mouth once daily. Garlic 1,000 mg cap Take 1 capsule by mouth once daily. No current facility-administered medications for this visit. ALLERGIES: ALLERGIES Allergen Reactions Acetaminophen Hives Hydrocodone Hives Morphine Hives, Other: See Comments Latex Rash Ketorolac Unknown Pt states allergy, told not to take with liver transplant Vancomycin (Bulk) Rash, Itching Vicodin [Hydrocodon* Itching PAST MEDICAL HISTORY Diagnosis Date BPH with obstruction/lower urinary tract symptoms Cirrhosis (HCC) ETOH abuse stopped etoh in 09/27 H/O liver transplant (HCC) 10/03/2015 Hepatitis C Hepatopulmonary syndrome (HCC) used oxygen 3 to 6 liters and off O2 since liver transplant Hypertension Marijuana use, continuous 12/28/2020 MRSA (methicillin resistant Staphylococcus aureus) 11/2011 New onset seizure (HCC) 10/05/2015 06/11/[address] Anurag Doyle:noted one seizure after transplant. No seizures since, off keppra.Initial EEG showed small amplitudes polyspikes overriding periodic patterns), later EEG became normal, brain MRI unremarkable. He has been off Keppra since March 2016. No further seizure. Non-ischemic cardiomyopathy (HCC) Osteoporosis Panic attacks Prostatitis 11/2011 Psoriasis PTSD (post-traumatic stress disorder) Sarcoidosis of the lungs Splenomegaly Thrombocytopenia (HCC) Pancytopenia resolved after liver transplant Unspecified hypothyroidism Hypothyroidism PAST SURGICAL HISTORY Procedure Laterality Date COLONOSCOPY FLX DX W/COLLJ SPEC WHEN PFRMD 10/14/13 Colonoscopy ESOPHAGOGASTRODUODENOSCOPY TRANSORAL DIAGNOSTIC 10/14/13 EGD ESOPHAGOGASTRODUODENOSCOPY TRANSORAL DIAGNOSTIC 01/31/2019 EGD INGUINAL HERNIA REPAIR HX 10/15/2016 LIVER BIOPSY NERVE ALTERATION 83? LEFT ELBOW ABOUT PAST SURGICAL HISTORY OF 83? Deviated septum PAST SURGICAL HISTORY OF Liver transplant : 09/2015 PAST SURGICAL HISTORY OF PFO repair 2015 PICC LINE INSERT/CONSULT 11/01/2015 PICC LINE INSERTION (PICC TEAM) ([place]) 11/22/2021 TONSILLECTOMY PRIMARY/SECONDARY <AGE 10 Tonsillectomy FAMILY HISTORY Problem Relation Age of Onset COPD Mother Lung Cancer Mother Alzheimer's Disease Father Arthritis Brother Back issues Diabetes Maternal Grandmother Diabetes Paternal Grandfather Amblyopia Daughter Social History Tobacco Use Smoking status: Former Packs/day: 1.00 Years: 23.00 Total pack years: 23.00 Types: Cigarettes Start date: 09/14/1979 Smokeless tobacco: Never Vaping Use Vaping Use: Never used Substance Use Topics Alcohol use: No Alcohol/week: 0.0 standard drinks of alcohol Comment: Quit 10/2011 Drug use: Yes Types: Marijuana Comment: now only marijuana to help with appetite and slee[ Reviewed current medications, allergies, past medical history, surgical history, family history andsocial history today. REVIEW OF SYSTEMS All other reviewed and negative other than HPI. HEALTH MAINTENANCE: Reviewed health maintenance issues today and recommended the following in detail. LUNG CANCER SCREENING due on 08/05/2022 COVID-19 VACCINE(4 - Booster for Pfizer series) due on 09/16/2022 PNEUMOCOCCAL(3 - PPSV23 or PCV20) due on 12/11/2022 VITALS: BP 120/64 Pulse 67 Ht 170.2 cm (5' 7) Wt 71.7 kg (158 lb) SpO2 99% BMI 24.75 kg/m Last 4 Encounter Wt Readings: Date: Wt: 02/06/2023 72 kg (158 lb 12.8 oz) 02/06/2023 72.7 kg (160 lb 3.2 oz) 01/19/2023 70.3 kg (155 lb) 12/03/2022 73.5 kg (162 lb) PHYSICAL EXAMINATION: General appearance: Well appearing, alert, in no acute distress, well-hydrated, well nourished. Skin: Skin color, texture, turgor normal, no suspicious rashes or lesions Head: Normocephalic, no masses, lesions, tenderness or abnormalities Lungs: Lungs clear to auscultation. No wheezing, rhonchi, rales Heart: RRR without murmur, gallop, or rubs. No ectopy Abdomen: Normal abdominal exam, Abdomen soft, non-tender. Bowel sounds normal. No masses, organomegaly Extremities: No deformities, edema, skin discoloration, clubbing or cyanosis. Good capillary refill. ASSESSMENT/PLAN: 1. S/P liver transplant (HCC) - ICD9: V42.7, ICD10: Z94.4 (primary diagnosis) - continue meds. Discouraged use of marijuana give his hx. 2. Urinary retention - ICD9: 788.20, ICD10: R33.9 - as above. 3. Renal insufficiency - ICD9: 593.9, ICD10: N28.9 - as above. - COMP METABOLIC PANEL 4. Pain in both hands - ICD9: 729.5, ICD10: M79.641, M79.642 - Discussed risks and benefits of new medication with the patient. Advised them to call if any sideeffects or questions. - DICLOFENAC 1 % TOPICAL GEL 5. Screening for lung cancer - ICD9: V76.0, ICD10: Z12.2 - CONSULT LUNG CANCER SCREENING CLINIC 6. Need for hepatitis C screening test - ICD9: V73.89, ICD10: Z11.59 - HEPATITIS C ANTIBODY IA WITH CONFIRMATION 7. Need for vaccination - ICD9: V05.9, ICD10: Z23 - PNEUMOCOCCAL VACCINE (PREVNAR 20) - [employer] COVID-19 BIVALENT VACCINE, AGE 12+ YR Giancarlo Kendall MD documented in this encounterUniversity Hospitals Tripoint Medical Center05-29-2023 Miscellaneous Notes* Telephone Encounter - Darling Goldberg Ma - 02/09/2023 10:24 AM EDT Patient was notified Darling Goldberg Ma * Telephone Encounter - Candy Bailey - 02/08/2023 8:39 AM EDT Unable to reach patient. Mailbox full/Mailbox not set up/ Number incorrect. Please try again later. Candy Bailey * Telephone Encounter - JD Sharp - 02/08/2023 8:28 AM EDT Please call patient and let him know that urine culture did not reveal any significant bacterial growth. Follow-up with PCP and urologist. documented in this encounterUniversity Hospitals Tripoint Medical Center05-15-2023 Miscellaneous Notes* Telephone Encounter - FRANCIS Scherer - 01/26/2023 11:52 AM EDT Patient called and left message requesting that mail Community Resource guide to [phone] [place] [address]. Harjit mailed out Community Resource Guide. * Telephone Encounter - FRANCIS Scherer - 01/21/2023 9:00 AM EDT Harjit left 2nd message in regards to mailing out [facility] Resource Guide for community social service info. Harjit would like to confirm patient address to mail guide to. * Telephone Encounter - FRANCIS Scherer - 01/20/2023 9:25 AM EDT Sw called and left patient message in regards to message Harjit received about community resource needsfor patient ie. Financial assistance. Harjit has listing from [facility] that offers community resource info. Harjit noted in message if patient could call Harjit back to confirm address Harjit can then mail out listing to patient. documented in this encounterUniversity Hospitals Tripoint Medical Center05-08-2023 History of Present illness Narrative* Kalina Gutierrez RT(R) - 01/19/2023 3:30 PM EDT Radiology Service Progress Note PATIENT NAME: Troy Carlson DATE OF SERVICE: January 19, 2023 TIME: 3:25 PM PATIENT IDENTITY VERIFICATION COMPLETED USING TWO (2) IDENTIFIERS: Name and Date of confirmedby patient verbally. FALL SCREENING: Has the patient had 2 falls in the last year or 1 fall with injury or currently using an Ambulatory Assistive Device (Walker, Cane, Wheelchair, Crutches, etc.)? No PATIENT GENDER DATA: Male PATIENT RELEVANT IMPLANT DATA REVIEWED: Not Applicable RADIOLOGY DEPARTMENT: General X-ray: Exam(s) Completed: Upper Extremity X- Ray(s): Hand, bilateral PERIPHERAL IV DATA: Not applicable SIGNED BY: RT Ratna(R) January 19, 2023 3:25 PM documented in this encounterUniversity Hospitals Tripoint Medical Center05-08-2023 History of Present illness Narrative* Giancarlo Kendall MD - 01/19/2023 2:37 PM EDT Patient presents with: Follow Up HPI: Patient presents today for office visit for follow up. Pain on the right side of his chest is now of the left side. Was to have a CT scan of lungs down but hasn't had it done yet. Issues right now with his PTSD/anxiety are really bad. Sometimes are so bad can't drive or leave where he is currently living. He is seeing Dr Matute. Had has bilateral hand pain. No numbness. No tingling. Has hx of ulnar neurology dating back to 2019. He has been referred previously to ortho. He wants a service dog-not an emotional support dog for his ptsd and his hand pain he has never followed up on or really treated. Suggested he talk to psych since an emotional support dog would likely be more beneficial. Component Latest Ref Rng & Units 12/03/2022 WBC 3.70 - 11.00 k/uL 6.19 RBC 4.20 - 6.00 m/uL 5.22 Hemoglobin 13.0 - 17.0 g/dL 16.3 Hematocrit 39.0 - 51.0 % 47.9 MCV 80.0 - 100.0 fL 91.8 MCH 26.0 - 34.0 pg 31.2 MCHC 30.5 - 36.0 g/dL 34.0 RDW-CV 11.5 - 15.0 % 13.0 Platelet Count 150 - 400 k/uL 123 (L) MPV 9.0 - 12.7 fL 10.7 Neut% % 79.3 Abs Neut (ANC) 1.45 - 7.50 k/uL 4.91 Lymph% % 10.0 Abs Lymph 1.00 - 4.00 k/uL 0.62 (L) [place]% % 7.3 Abs [place] <0.87 k/uL 0.45 Eosin% % 2.6 Abs Eosin <0.46 k/uL 0.16 Baso% % 0.5 Abs Baso <0.11 k/uL 0.03 Immature Gran % % 0.3 IMMATURE GRANS (ABS) <0.10 k/uL <0.03 NRBC /100 WBC 0.0 Absolute nRBC <0.01 k/uL <0.01 DTYPE Auto Protein, Total 6.3 - 8.0 g/dL 7.6 Albumin 3.9 - 4.9 g/dL 4.8 Calcium 8.5 - 10.2 mg/dL 10.2 Bilirubin, Total 0.2 - 1.3 mg/dL 0.2 Alkaline Phosphatase 38 - 113 U/L 135 (H) AST 14 - 40 U/L 22 ALT 10 - 54 U/L 16 Glucose 74 - 99 mg/dL 79 BUN 9 - 24 mg/dL 19 Creatinine 0.73 - 1.22 mg/dL 1.14 Sodium 136 - 144 mmol/L 139 Potassium 3.7 - 5.1 mmol/L 4.2 Chloride 97 - 105 mmol/L 101 CO2 22 - 30 mmol/L 29 Anion Gap 9 - 18 mmol/L 9 eGFR >=60 mL/min/1.73m 74 Cholesterol, Total <200 mg/dL 167 Triglyceride <150 mg/dL 162 (H) HDL Cholesterol >39 mg/dL 46 Non HDL Cholesterol <130 mg/dL 121 Fasting Time hrs 12 VLDL Cholesterol <30 mg/dL 32 (H) TC:HDL Ratio <5.10 3.63 LDL Cholesterol <100 mg/dL 89 LDL:HDL Ratio <2.54 1.93 Magnesium 1.7 - 2.3 mg/dL 2.0 Phosphorus 2.7 - 4.8 mg/dL 3.3 GGT 10 - 70 U/L 126 (H) Tacrolimus/FK506 5.0 - 20.0 ng/mL 2.9 (L) MEDICATIONS: Current Outpatient Medications Medication Sig tacrolimus IR (PROGRAF) 0.5 mg capsule Take 1 capsule (0.5 mg) by mouth twice daily. Take with 1mg capsule for total 1.5mg twice daily tacrolimus IR (PROGRAF) 1 mg capsule Take 1 capsule (1mg) by mouth twice daily. Take in addition toone 0.5mg capsule for total dose of 1.5mg twice daily simvastatin (ZOCOR) 40 mg tablet Take 1 tablet by mouth daily at bedtime. pantoprazole DR (PROTONIX) 40 mg tablet Take 1 tablet by mouth daily before breakfast. Take on empty stomach, 1/2 hr before meal. lisinopril (ZESTRIL, PRINIVIL) 5 mg tablet Take 1 tablet by mouth once daily. metoprolol succinate ER (TOPROL XL) 25 mg 24 hr tablet Take 1 tablet by mouth once daily. alendronate (FOSAMAX) 70 mg tablet Take 1 tablet by mouth one time a week. Take with a full glass of water, on an empty stomach; do NOT lie down for 30minutes. On sundays sertraline (ZOLOFT) 50 mg tablet Take 1 tablet by mouth once daily. Cholecalciferol, Vitamin D3, 25 mcg (1,000 unit) cap Take 1 capsule by mouth once daily. docusate sodium (COLACE) 100 mg capsule Take 1 capsule by mouth twice daily. Garlic 1,000 mg cap Take 1 capsule by mouth once daily. No current facility-administered medications for this visit. ALLERGIES: ALLERGIES Allergen Reactions Acetaminophen Hives Hydrocodone Hives Morphine Hives, Other: See Comments Latex Rash Ketorolac Unknown Pt states allergy, told not to take with liver transplant Vancomycin (Bulk) Rash, Itching Vicodin [Hydrocodon* Itching PAST MEDICAL HISTORY Diagnosis Date BPH with obstruction/lower urinary tract symptoms Cirrhosis (HCC) ETOH abuse stopped etoh in 09/27 H/O liver transplant (HCC) 10/03/2015 Hepatitis C Hepatopulmonary syndrome (HCC) used oxygen 3 to 6 liters and off O2 since liver transplant Hypertension Marijuana use, continuous 12/28/2020 MRSA (methicillin resistant Staphylococcus aureus) 11/2011 New onset seizure (HCC) 10/05/2015 06/11/[address] Anurag Doyle:noted one seizure after transplant. No seizures since, off keppra.Initial EEG showed small amplitudes polyspikes overriding periodic patterns), later EEG became normal, brain MRI unremarkable. He has been off Keppra since March 2016. No further seizure. Non-ischemic cardiomyopathy (HCC) Osteoporosis Panic attacks Prostatitis 11/2011 Psoriasis PTSD (post-traumatic stress disorder) Sarcoidosis of the lungs Splenomegaly Thrombocytopenia (HCC) Pancytopenia resolved after liver transplant Unspecified hypothyroidism Hypothyroidism PAST SURGICAL HISTORY Procedure Laterality Date COLONOSCOPY FLX DX W/COLLJ SPEC WHEN PFRMD 10/14/13 Colonoscopy ESOPHAGOGASTRODUODENOSCOPY TRANSORAL DIAGNOSTIC 10/14/13 EGD ESOPHAGOGASTRODUODENOSCOPY TRANSORAL DIAGNOSTIC 01/31/2019 EGD INGUINAL HERNIA REPAIR HX 10/15/2016 LIVER BIOPSY NERVE ALTERATION 83? LEFT ELBOW ABOUT PAST SURGICAL HISTORY OF 83? Deviated septum PAST SURGICAL HISTORY OF Liver transplant : 09/2015 PAST SURGICAL HISTORY OF PFO repair 2015 PICC LINE INSERT/CONSULT 11/01/2015 PICC LINE INSERTION (PICC TEAM) ([place]) 11/22/2021 TONSILLECTOMY PRIMARY/SECONDARY <AGE 10 Tonsillectomy FAMILY HISTORY Problem Relation Age of Onset COPD Mother Lung Cancer Mother Alzheimer's Disease Father Arthritis Brother Back issues Diabetes Maternal Grandmother Diabetes Paternal Grandfather Amblyopia Daughter Social History Tobacco Use Smoking status: Former Packs/day: 1.00 Years: 23.00 Pack years: 23.00 Types: Cigarettes Start date: 09/14/1979 Quit date: 08/01/2013 Years since quittin.4 Smokeless tobacco: Never Vaping Use Vaping Use: Never used Substance Use Topics Alcohol use: No Alcohol/week: 0.0 standard drinks Comment: Quit 10/2011 Drug use: Yes Types: Marijuana Comment: now only marijuana to help with appetite and slee[ Reviewed current medications, allergies, past medical history, surgical history, family history andsocial history today. REVIEW OF SYSTEMS All other reviewed and negative other than HPI. VITALS: BP 126/82 Pulse 64 Wt 70.3 kg (155 lb) SpO2 98% BMI 24.28 kg/m Last 4 Encounter Wt Readings: Date: Wt: 12/03/2022 73.5 kg (162 lb) 10/21/2022 71.2 kg (157 lb) 07/21/2022 71.7 kg (158 lb) 06/03/2022 72.9 kg (160 lb 12.8 oz) PHYSICAL EXAMINATION: General appearance: Well appearing, alert, in no acute distress, well-hydrated, well nourished. Skin: Skin color, texture, turgor normal, no suspicious rashes or lesions Head: Normocephalic, no masses, lesions, tenderness or abnormalities Lungs: Lungs clear to auscultation. No wheezing, rhonchi, rales Heart: RRR without murmur, gallop, or rubs. No ectopy Abdomen: Normal abdominal exam, Abdomen soft, non-tender. Bowel sounds normal. No masses, organomegaly Extremities: No deformities, edema, skin discoloration, clubbing or cyanosis. Good capillary refill. Musculoskeletal: No joint swelling, deformity, or tenderness ASSESSMENT/PLAN: 1. PFO (patent foramen ovale) - ICD9: 745.5, ICD10: Q21.12 (primary diagnosis) - follow with cardiology 2. Non-ischemic cardiomyopathy (HCC) - ICD9: 425.4, ICD10: I42.8 - follow with cardioloigy 3. Paroxysmal atrial fibrillation (HCC) - ICD9: 427.31, ICD10: I48.0 - as above. 4. Mixed hyperlipidemia - ICD9: 272.2, ICD10: E78.2 - good control - Continue current medication. 5. Essential hypertension - ICD9: 401.9, ICD10: I10 - good control - Continue current medication(s) - Recommended regular aerobic exercise. - Recommend home blood pressure monitoring, to bring results in on next visit - Goal of BP <130/80 6. Gastroesophageal reflux disease, unspecified whether esophagitis present - ICD9: 530.81, ICD10: K21.9 - stable. 7. S/P liver transplant (HCC) - ICD9: V42.7, ICD10: Z94.4 - follow with the transplant team 8. Adjustment disorder with mixed anxiety and depressed mood - ICD9: 309.28, ICD10: F43.23 - per psych 9. PTSD (post-traumatic stress disorder) - ICD9: 309.81, ICD10: F43.10 - per pysch 10. Pain in both hands - ICD9: 729.5, ICD10: M79.641, M79.642 - XR HAND GENERAL 3V PA/LAT/OBL BILATERAL - CONSULT TO PHYSICAL THERAPY Giancarlo Kendall documented in this encounterUniversity Hospitals Tripoint [facility] Center05-01-2023 Miscellaneous Notes* Telephone Encounter - Catrina Monroe LPN - 01/12/2023 12:49 PM EDT Patient notified. * Telephone Encounter - Giancarlo Kendall MD - 01/12/2023 12:02 PM EDT Ok to postpone ct. If he thinks he fractured his wrist. Recommend urgent care or ER * Telephone Encounter - Katie Muse LPN - 01/12/2023 11:05 AM EDT Pt calls to report he is scheduled for a CT of chest tomorrow. Pt reports he doesn't really have a way to get to that appt and wanted to wait to see pcp on 01/[address] is needed. Pt reports if pcp states he has to get test done tomorrow he will try to find a way to get to appt but reports he has other things going on like: PTSD and pt thinks he fractured his wrist. Please review. Katie Muse LPN documented in this encounterUniversity Hospitals Tripoint [facility] Center04-27-2023 Miscellaneous Notes* Telephone Encounter - Peyton Peguero RN - 01/08/2023 3:44 PM EDT I returned call to patient, no answer. LMOM for patient that we have spoken many times over the last few years and appointments have been offered but declined for various reasons. I advised that I would set him up for post transplant hepatology clinic, but let him know this is scheduling into September. Asked that he call back with further questions. Peyton Peguero (Cassie) RN, BSN Liver Over[employer] * Telephone Encounter - Simi Ramirez - 01/08/2023 2:36 PM EDT Patient left a voicemail asking to speak with a coordinator, he hasn't been seen in the past few years and asking why no one has reached out to him. documented in this encounterUniversity Hospitals Tripoint [facility] Center04-25-2023 History of Present illness Narrative* Juan Carlos Salvador - 01/06/2023 7:49 AM EDT Images from the original note were not included. Initial Podiatric Office Visit: Chief Complaint: This 57 year old male who presents with chief complaint:b/l foot pain HPI Patient presents to clinic with complaint of pain in both feet. He states the longer he is on his foot, the more pain he is in. He has history of right 5th metatarsal fracture sustained several yearsago. He states he was offered orif but declined. He is here with xrays of both feet and to discuss his current pain in his feet. PAIN EVALUATION 01/05/2023 1354 Pain Location: Other: See Comment bilateral feet Description: Sharp;Dull;Aching Duration Amount of Time: 4 Duration Units: Years Frequency: Continuous Intervention/Comfort measure: Reposition;Relaxation;Medication Hemoglobin A1C (%) Date Value 09/20/2019 4.8 03/24/2017 4.9 PCP: Giancarlo Kendall MD PAST MEDICAL HISTORY Diagnosis Date BPH with obstruction/lower urinary tract symptoms Cirrhosis (HCC) ETOH abuse stopped etoh in 09/27 H/O liver transplant (HCC) 10/03/2015 Hepatitis C Hepatopulmonary syndrome (HCC) used oxygen 3 to 6 liters and off O2 since liver transplant Hypertension Marijuana use, continuous 12/28/2020 MRSA (methicillin resistant Staphylococcus aureus) 11/2011 New onset seizure (HCC) 10/05/2015 06/11/[address] Anurag Doyle:noted one seizure after transplant. No seizures since, off keppra.Initial EEG showed small amplitudes polyspikes overriding periodic patterns), later EEG became normal, brain MRI unremarkable. He has been off Keppra since March 2016. No further seizure. Non-ischemic cardiomyopathy (HCC) Osteoporosis Panic attacks Prostatitis 11/2011 Psoriasis PTSD (post-traumatic stress disorder) Sarcoidosis of the lungs Splenomegaly Thrombocytopenia (HCC) Pancytopenia resolved after liver transplant Unspecified hypothyroidism Hypothyroidism Current Outpatient Medications Medication Sig tacrolimus IR (PROGRAF) 0.5 mg capsule Take 1 capsule (0.5 mg) by mouth twice daily. Take with 1mg capsule for total 1.5mg twice daily tacrolimus IR (PROGRAF) 1 mg capsule Take 1 capsule (1mg) by mouth twice daily. Take in addition toone 0.5mg capsule for total dose of 1.5mg twice daily simvastatin (ZOCOR) 40 mg tablet Take 1 tablet by mouth daily at bedtime. pantoprazole DR (PROTONIX) 40 mg tablet Take 1 tablet by mouth daily before breakfast. Take on empty stomach, 1/2 hr before meal. lisinopril (ZESTRIL, PRINIVIL) 5 mg tablet Take 1 tablet by mouth once daily. metoprolol succinate ER (TOPROL XL) 25 mg 24 hr tablet Take 1 tablet by mouth once daily. alendronate (FOSAMAX) 70 mg tablet Take 1 tablet by mouth one time a week. Take with a full glass of water, on an empty stomach; do NOT lie down for 30minutes. On sundays sertraline (ZOLOFT) 50 mg tablet Take 1 tablet by mouth once daily. Cholecalciferol, Vitamin D3, 25 mcg (1,000 unit) cap Take 1 capsule by mouth once daily. docusate sodium (COLACE) 100 mg capsule Take 1 capsule by mouth twice daily. Garlic 1,000 mg cap Take 1 capsule by mouth once daily. No current facility-administered medications for this visit. ALLERGIES Allergen Reactions Acetaminophen Hives Hydrocodone Hives Morphine Hives, Other: See Comments Latex Rash Ketorolac Unknown Pt states allergy, told not to take with liver transplant Vancomycin (Bulk) Rash, Itching Vicodin [Hydrocodon* Itching PAST SURGICAL HISTORY Procedure Laterality Date COLONOSCOPY FLX DX W/COLLJ SPEC WHEN PFRMD 10/14/13 Colonoscopy ESOPHAGOGASTRODUODENOSCOPY TRANSORAL DIAGNOSTIC 10/14/13 EGD ESOPHAGOGASTRODUODENOSCOPY TRANSORAL DIAGNOSTIC 01/31/2019 EGD INGUINAL HERNIA REPAIR HX 10/15/2016 LIVER BIOPSY NERVE ALTERATION 83? LEFT ELBOW ABOUT PAST SURGICAL HISTORY OF 83? Deviated septum PAST SURGICAL HISTORY OF Liver transplant : 09/2015 PAST SURGICAL HISTORY OF PFO repair 2015 PICC LINE INSERT/CONSULT 11/01/2015 PICC LINE INSERTION (PICC TEAM) ([place]) 11/22/2021 TONSILLECTOMY PRIMARY/SECONDARY <AGE 12 Tonsillectomy FAMILY HISTORY Problem Relation Age of Onset COPD Mother Lung Cancer Mother Alzheimer's Disease Father Arthritis Brother Back issues Diabetes Maternal Grandmother Diabetes Paternal Grandfather Amblyopia Daughter Social History Tobacco Use Smoking status: Former Packs/day: 1.00 Years: 23.00 Pack years: 23.00 Types: Cigarettes Start date: 09/14/1979 Quit date: 08/01/2013 Years since quittin.4 Smokeless tobacco: Never Vaping Use Vaping Use: Never used Substance Use Topics Alcohol use: No Alcohol/week: 0.0 standard drinks Comment: Quit 10/2011 Drug use: Yes Types: Marijuana Comment: now only marijuana to help with appetite and slee[ REVIEW OF SYSTEMS GENERAL: Negative for Malaise, significant weight loss, fever RESPIRATORY: Negative for cough, wheezing and shortness of breath CARDIOVASCULAR: Negative for chest pain, leg swelling and palpitations GI: Negative for abdominal discomfort, blood in stools or black stools and change in bowel habits : Negative for dysuria, frequency and incontinence MUSCULOSKELETAL: Negative for joint pain or swelling, back pain, and muscle pain. SKIN: Negative for lesions, rash, and itching. HEMATOLOGY/LYMPHOLOGY Negative for prolonged bleeding, bruising easily, and swollen nodes. ENDOCRINE: Negative for cold or heat intolerance, polyuria, polydipsia and goiter. NEURO: negative Physical Exam: Constitutional: Pt is a well developed 57 year old male who is alert, oriented and cooperative Eyes: Following during examination. No redness or drainage. Respiratory: RR normal and nonlabored. Even breathing. No evidence of distress or shortness of breath. Psychology: Patient is engaged during conversation. Normal affect and mood. Does not appear depressed or anxious during encounter. Vascular: Dorsalis pedis and posterior tibial pulses palpable as b/l Capillary Fill time < 5 seconds to digits 1-5 b/l Skin temperature warm to warm proximal to distal b/l Hair growth present to digits Neurological: intact light touch/epicritic sensation Vibratory sensation intact to hallux b/l intact protective sensation no significant neurological deficits Dermatological: Nails 1-5 b/l appear normal. Webspaces clean and dry 1-4 b/l. Skin appears well hydrated and supple. good color, texture, turgor. No open lesions present. No callosities present. Plantar wart presentto right 1st metatarsal head Musculoskeletal/Orthopaedic: Patient has pain to palpation of b/l midfoot. Foot type is skewfoot structurally AJ ROM is full with knee extended and flexed 1st MPJ is full when loaded and no pain or crepitus are noted with ROM. MTJ, STJ are full and free of pain and crepitus. +5/5 muscle strength dorsiflexion, plantarflexion, inversion, eversion b/l Radiographs: 3 views b/l foot ordered January 06, 2023: I have personally reviewed and interpreted these XR myself: remote fracture of right 5th metatarsal base now which appears healed. Remote fracture of left 3rd metatarsal shaft now which appears healed ASSESSMENT: (M21.6X9) Skew foot deformity, unspecified laterality (primary encounter diagnosis) (B07.0) Plantar wart of right foot PLAN: 1. History and physical examination performed. 2. XR reviewed with patient and interpreted today 3. Discussed pain in both feet likely related to skew foot deformity. Will try powerstep gel insert. If these help, consider custom inserts 4. Discussed wart of right foot. Offered debridement today but he declined. Recommend compound w over the counter Juan Carlos Franco DPM Podiatry [address] [facility] [address] Dept: [phone] Dept * Joleen Silva LPN - 01/05/2023 1:52 PM EDT AMB ROOMING INTAKE FLOWSHEET DATA Pain Pain Location: Other: See Comment (bilateral feet) Description: Sharp, Dull, Aching Duration Amount of Time: 4 Duration Units: Years Frequency: Continuous Intervention/Comfort measure: Reposition, Relaxation, Medication Patient presents with: Left Foot - New, Pain Right Foot - New, Pain Joleen Silva LPN documented in this encounterUniversity Hospitals Tripoint Medical Center04-24-2023 Instructions* Patient Instructions* Juan Carlos Franco - 01/05/2023 2:46 PM EDT Powerstep Original Full length. Can purchase at [employer] here in [place], [employer] in [place] or [place]. Also can find in [employer] in [facility]. Powersteps can also be purchased online, starting around $25.00 If you have a metatarsal or dancer pad for your feet apply the pad directly to the insole so you can interchange between your shoes. Find a shoe with a removable insole and take this out and replace with your powerstep insole. Always bring powersteps with you when shopping for shoes so that you can make sure that everything fits well together Use compound w for wart documented in this encounterUniversity Hospitals [facility] Center04-20-2023 History of Present illness Narrative* Brandi Tan RN - 01/01/2023 8:41 AM EDT XR FOOT documented in this encounterUniversity Hospitals Tripoint [facility] Center03-22-2023 History of Present illness Narrative* Cortney Shipley APRN.PAPER BAG MAKER - 12/03/2022 3:08 PM EDT Images from the original note were not included. LUNG SCREENING VISIT PRIMARY CARE PHYSICIAN: Giancarlo Kendall MD PULMONARY PROVIDER: None, has seen Dr. Bowles in the past Results will be communicated via letter or electronic record if applicable. Visit Delivery: In Person Patient Visit Type: New to Screening Current or Ex-smoker? Ex Smoker Exam Type: baseline LDCT Number of Pack Years: 54 Number of Years since Quit: 10 REQUESTER: The referring provider advised the patient to have screening. HISTORY OF PRESENT ILLNESS: Troy Carlson is a 57 year old Former smoker who presents for lung screening. Pt has right lower chest anterior and radiates through to the back. Feels it is worse with coughingattacks. Hx of liver transplant. Has had a collapsed lung on that side. Had x ray with PCP-negative. Hx of sarcoidosis. Not currently following with health information assistant. Respiratory symptoms include: SOB: Yes, with walking a distance Chest tightness: No Coughing: Yes: With mucus White comes in attacks Hemoptysis: No Wheezing: Yes Fever/Chills: No Recent Respiratory Infection: No Unintentional weight loss: No Last 6 Encounter Wt Readings: Date: Wt: 12/03/2022 73.5 kg (162 lb) 10/21/2022 71.2 kg (157 lb) 07/21/2022 71.7 kg (158 lb) 06/03/2022 72.9 kg (160 lb 12.8 oz) 05/15/2022 70.3 kg (155 lb) 05/05/2022 68.9 kg (152 lb) ECOG PERFORMANCE STATUS: 1- Restricted in physically strenuous activity. Carries out light duty. Modified [employer] [place] Dyspnea Scale (MMRC) I get short of breath when hurrying on level ground or walking up a slight hill 1 PAST MEDICAL HISTORY Diagnosis Date BPH with obstruction/lower urinary tract symptoms Cirrhosis (HCC) ETOH abuse stopped etoh in 09/27 H/O liver transplant (HCC) 10/03/2015 Hepatitis C Hepatopulmonary syndrome (HCC) used oxygen 3 to 6 liters and off O2 since liver transplant Hypertension Marijuana use, continuous 12/28/2020 MRSA (methicillin resistant Staphylococcus aureus) 11/2011 New onset seizure (HCC) 10/05/2015 06/11/[address] Anurag Doyle:noted one seizure after transplant. No seizures since, off keppra.Initial EEG showed small amplitudes polyspikes overriding periodic patterns), later EEG became normal, brain MRI unremarkable. He has been off Keppra since March 2016. No further seizure. Non-ischemic cardiomyopathy (HCC) Osteoporosis Panic attacks Prostatitis 11/2011 Psoriasis PTSD (post-traumatic stress disorder) Sarcoidosis of the lungs Splenomegaly Thrombocytopenia (HCC) Pancytopenia resolved after liver transplant Unspecified hypothyroidism Hypothyroidism PAST SURGICAL HISTORY Procedure Laterality Date COLONOSCOPY FLX DX W/COLLJ SPEC WHEN PFRMD 10/14/13 Colonoscopy ESOPHAGOGASTRODUODENOSCOPY TRANSORAL DIAGNOSTIC 10/14/13 EGD ESOPHAGOGASTRODUODENOSCOPY TRANSORAL DIAGNOSTIC 01/31/2019 EGD INGUINAL HERNIA REPAIR HX 10/15/2016 LIVER BIOPSY NERVE ALTERATION 83? LEFT ELBOW ABOUT PAST SURGICAL HISTORY OF 83? Deviated septum PAST SURGICAL HISTORY OF Liver transplant : 09/2015 PAST SURGICAL HISTORY OF PFO repair 2015 PICC LINE INSERT/CONSULT 11/01/2015 PICC LINE INSERTION (PICC TEAM) ([place]) 11/22/2021 TONSILLECTOMY PRIMARY/SECONDARY <AGE 10 Tonsillectomy FAMILY HISTORY Problem Relation Age of Onset COPD Mother Lung Cancer Mother Alzheimer's Disease Father Arthritis Brother Back issues Diabetes Maternal Grandmother Diabetes Paternal Grandfather Amblyopia Daughter tacrolimus IR (PROGRAF) 0.5 mg capsule Take 1 capsule (0.5 mg) by mouth twice daily. Take with 1mg capsule for total 1.5mg twice daily tacrolimus IR (PROGRAF) 1 mg capsule Take 1 capsule (1mg) by mouth twice daily. Take in addition toone 0.5mg capsule for total dose of 1.5mg twice daily simvastatin (ZOCOR) 40 mg tablet Take 1 tablet by mouth daily at bedtime. pantoprazole DR (PROTONIX) 40 mg tablet Take 1 tablet by mouth daily before breakfast. Take on empty stomach, 1/2 hr before meal. lisinopril (ZESTRIL, PRINIVIL) 5 mg tablet Take 1 tablet by mouth once daily. metoprolol succinate ER (TOPROL XL) 25 mg 24 hr tablet Take 1 tablet by mouth once daily. alendronate (FOSAMAX) 70 mg tablet Take 1 tablet by mouth one time a week. Take with a full glass of water, on an empty stomach; do NOT lie down for 30minutes. On sundays Cholecalciferol, Vitamin D3, 25 mcg (1,000 unit) cap Take 1 capsule by mouth once daily. Garlic 1,000 mg cap Take 1 capsule by mouth once daily. sertraline (ZOLOFT) 50 mg tablet Take 1 tablet by mouth once daily. (Patient not taking: Reported on 12/03/2022) docusate sodium (COLACE) 100 mg capsule Take 1 capsule by mouth twice daily. ALLERGIES Allergen Reactions Acetaminophen Hives Hydrocodone Hives Morphine Hives, Other: See Comments Latex Rash Ketorolac Unknown Pt states allergy, told not to take with liver transplant Vancomycin (Bulk) Rash, Itching Vicodin [Hydrocodon* Itching The medications and allergies were reviewed and reconciled for this patient and deemed current. Lung Cancer Risk Factors: 1.Tobacco Use: Start Age 11, Quit Age: 47, Average packs per day 1.5, Pack Years 52 2. Passive Smoke Exposure: Yes, as a Child 3. Personal hx of malignancy: No, Type of Cancer: 4. 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 Race: White 6. Education: Less than High School 7. BMI:Body mass index is 25.37 kg/m . Patient-entered Height: 5'7 Patient-entered Weight: 162 pounds 8. COPD: No 9. Pneumonia in the past 5 years: No 10. Is there a history of lung cancer in a first degree relative? Yes 11. Is there a history of lung cancer in a non-first degree relative? Yes 12. Is there a history of any other cancer in a first degree relative? No Health Maintenance Immunization History Administered Date(s) Administered COVID-19 booster vaccine, age 12+ yr, bivalent (PFIZER-BIONTECH) 07/22/2022 COVID-19 original vaccine, age 12+ yr, monovalent (PFIZER-BIONTECH - MCMAHON TOP) 02/14/2022 03/13/2022 hepatitis B (HepB) vaccine, 3-dose series, age 20+ yr (ENGERIX-B, RECOMBIVAX HB) 07/07/2014 07/28/2014 05/24/2015 influenza (IIV3) vaccine, trivalent, PF (AFLURIA, FLUARIX, FLULAVAL, FLUVIRIN, FLUZONE) 08/10/2019 influenza (IIV4) vaccine, age 6 mo - 64 yr, quadrivalent (AFLURIA, FLULAVAL, FLUZONE) 07/01/2017 08/19/2018 07/18/2021 07/21/2022 influenza (IIV4) vaccine, age 6 mo - 64 yr, quadrivalent, PF (AFLURIA, FLUARIX, FLULAVAL, FLUZONE) 07/07/2014 06/14/2015 07/10/2018 influenza vaccine, unspecified formulation 08/09/2019 pneumococcal (PCV13) vaccine, 13 valent (PREVNAR 13) 07/07/2014 pneumococcal (PPV23) vaccine, 23 valent (PNEUMOVAX 23) 12/11/2017 tetanus diphtheria pertussis (Tdap) vaccine, age 7+ yr (ADACEL, BOOSTRIX) 07/07/2014 zoster (ZVL) vaccine, live (ZOSTAVAX) 07/07/2014 Colonoscopy: 01/31/2019 Mammogram: DATA REVIEW I have directly visualized the testing documented: 08/05/2021 CT Chest Prior Imaging: Last CT/CTA Chest/Lungs CT CHEST WO IVCON Exam End: 08/05/2021 8:50 AM (Final result) Narrative: * * *Final Report* * * DATE OF EXAM: Aug 05 2021 8:50AM [facility] 0541 - CT CHEST WO IVCON / PROCEDURE REASON: multiple diagnoses * * * * Physician Interpretation * * * * EXAMINATION: CHEST CT WITHOUT CONTRAST CLINICAL HISTORY: Lung nodule Sarcoidosis CT recommend for follow up [address] ab/pel 04/26/19, CT lung 07/09/18 4mm sub pleural Technique: Spiral CT acquisition of the chest from the thoracic inlet to the upper abdomen without contrast. MQ: [id number] CT Radiation dose: Integrated Dose-length product (DLP) for this visit = 226 mGy*cm CT Dose Reduction Employed: Automated exposure control(AEC) and iterative recon Comparison: CT abdomen and pelvis dated 02/16/2021. Prior chest CT dated 07/09/2018. RESULT: Limitations: None. Lines, tubes, and devices: None. Lung parenchyma and airways: Again seen is reticulation within both lungs, consistent with known parenchymal disease. Calcified granulomas are seen within both lungs. There are stable subcentimeter noncalcified pulmonary nodules. For example, there is a stable, approximately 5 mm subpleural nodule seen medially within the apicoposterior segment of the left upper lobe (series 5, image #30). No new pulmonary nodule is identified. Pleural space: There is no pleural effusion. Lower neck, lymph nodes, and mediastinum: Interval improvement, without resolution of mediastinal and bilateral hilar lymphadenopathy. For example, a subcarinal lymph node currently measures approximately 1.9 cm in short axis dimension, previously 3.2 cm (series 5, image #87). A right hilar lymph node currently measures approximately 1.6 cm in short axis dimension, previously 2.5 cm (series 5, image #81). No carroll axillary lymphadenopathy is identified. Heart, pericardium, and thoracic vessels: The left vertebral artery arises directly from the aortic arch, an anatomic variant. Atherosclerotic calcifications are present within the thoracic aorta and prominent the LAD. Postsurgical changes seen involving the tricuspid valve. The heart is normal in size. There is no pericardial effusion. Bones and soft tissues: There is a fracture seen involving the posterior left eighth rib. There is right shoulder DJD. There is no destructive bony lesion. Upper abdomen: Nonspecific wall thickening of the stomach likely relates to underdistention. There is pneumobilia. The patient is status post cholecystectomy. Impression: IMPRESSION: Again seen is reticulation within both lungs, consistent with known parenchymal disease. Sequela of remote granulomatous disease. Stable subcentimeter noncalcified pulmonary nodules, measuring up to 5 mm in size, most likely benign, given stability since 2018. Interval improvement, without resolution of mediastinal and bilateral hilar lymphadenopathy, when compared to the prior examination. Incidentally noted is a fracture involving the posterior left eighth rib. Felt Puller: ALEXANDRO Transcribe Date/Time: Aug 05 2021 9:51A Dictated by : VIVEK TYSON MD This examination was interpreted and the report reviewed and electronically signed by: VIVEK TYSON MD on Aug 05 2021 9:58AM EST Last CT Chest - Impression Only CT CHEST WO IVCON Exam End: 08/05/2021 8:50 AM (Final result) Impression: IMPRESSION: Again seen is reticulation within both lungs, consistent with known parenchymal disease. Sequela of remote granulomatous disease. Stable subcentimeter noncalcified pulmonary nodules, measuring up to 5 mm in size, most likely benign, given stability since 2018. Interval improvement, without resolution of mediastinal and bilateral hilar lymphadenopathy, when compared to the prior examination. Incidentally noted is a fracture involving the posterior left eighth rib. ... Last XR Chest - Impression Only XR RIBS/CHEST 3V AP RIB/OBLS/CXR RIGHT Exam End: 10/21/2022 3:01 PM (Final result) Impression: IMPRESSION: No acute radiographic abnormality. Felt Puller: ALEXANDRO ... Pulmonary Function Testing: SPIROMETRY WITH DILATOR IF OBSTRUCTED ([id number]) - ordered on 08/19/18 [facility] [address] [place] [address] Test Date: 2018-08-19 Pat Name: TROY CARLSON Department: Room: Gender: Male Crop Quantitative Geneticist: SEB Avendaño : 1965 Requested By: Order Number: [id number] Reading MD: Jj Curiel Interpretive Statements Test no. 2 08/19/2018 07:43:45AM PRE: ATS acceptability and repeatability standards for spirometry met. Medications and Allergies were reviewed for possible drug interactions per policy MM-102. No contraindications or sensitivities were noted.NO Respiratory meds taken before testing. 4 puffs albuterol (360 mcg) delivered by MDI via valved holding chamber, HRpre=68 /min, HRpost=70 /min. POST: ATS acceptability and repeatability standards for spirometry met. ATS acceptability and repeatability standards for DLCO met. DLCO is hemoglobin corrected from 08/12/2019 IMPRESSION: Spirometry is normal. There was not a significant bronchodilator response. The diffusing capacity corrected for hemoglobin is moderately reduced. The diffusing capacity corrected for volume is reduced.~ The presence of a reduced diffusing capacity that does not normalize when corrected by lung volume suggests a parenchymal or pulmonary vascular disorder.~ Electronically Signed On 08-19-2018 8:57:18 EST by Jose Ratliff M.D. Electronically Signed On 08-19-2018 9:57:41 EST by Jj Curiel [facility] Respiratory [place] Pulmonary Function Lab Pred N ULN Pre % Post % % chg Date [id number] Time 07:17AM 07:40AM Height 169 169 Weight 102 102 FVC 4.35 3.51 5.19 3.96 91 3.96 91 0 FEV 1 3.34 2.63 4.05 2.69 81 2.93 88 9 FEV1%F 76.70 67.03 86.38 68.06 89 74.13 97 9 FEV 2 3.53 2.49 4.57 3.15 89 3.35 95 6 FEV 3 4.04 3.02 5.06 3.34 83 3.53 87 6 FEV3%E 93.52 88.88 98.16 84.49 90 89.19 95 6 MEF 50 4.01 2.38 5.63 2.25 56 2.95 74 31 FIF 50 4.89 4.91 1 MMEF 2.91 1.47 4.35 1.41 49 2.06 71 46 FE%FIF 46.04 59.97 30 FEV6 3.63 3.77 4 PEF 7.97 5.61 10.33 6.70 84 8.48 106 27 FET 14.12 13.16 -7 FETPEF 0.11 0.06 -46 VBe%FV 2.86 3.47 21 VBEex 0.11 0.14 21 VC MAX 4.35 3.51 5.19 3.96 91 3.96 91 0 DLCOSB 28.13 20.13 36.14 17.13 61 DL/VA 4.60 3.40 5.80 3.43 75 DLCOc 28.13 20.13 36.14 16.28 58 DL/VAc 4.60 3.40 5.80 3.26 71 VA 6.15 4.78 7.52 4.99 81 TANIA 4.35 3.51 5.19 3.83 88 BHT 10.44 Hb 16.60 PHYSICAL EXAM: BP 138/84 Pulse 66 Resp 18 Wt 73.5 kg (162 lb) SpO2 97% BMI 25.37 kg/m Deferred ASSESSMENT and RECOMMENDATIONS: 1. Screening for lung cancer: Six year risk for lung cancer: 3.13% I have determined that the patient is eligible for a low dose CT based on age, absence of signs or symptoms of lung cancer, and total pack years: Yes. The patient and I engaged in shared decision making, including the use of one or more decision aids, to include benefits, harms, follow-up diagnostic testing, over-diagnosis, false positive rate, andtotal radiation exposure. The patient understands and feels comfortable with it: Yes. The patient was counseled on the importance of adherence to annual LDCT lung cancer screening, impact of comorbidities and ability or willingness to undergo diagnosis and treatment. The patient understands and feels comfortable with it:Yes. 2. Former Nicotine dependence: The patient was counseled on the importance of maintaining cigarettesmoking abstinence - The patient is committed to remaining abstinent from tobacco. Cortney Shipley APRN.PAPER BAG MAKER NPI #: December 03, 2022 3:19 PM documented in this encounterUniversity Hospitals Tripoint Medical Center03-22-2023 Instructions* Patient Instructions* Cortney Shipley APRN.CNP - 12/03/2022 2:[address] Lung Screen Results The CT scan that you will have done will show if you have any nodules (small spots) in your lungs that are suspicious for cancer. Around 90% of the patients who have this scan done are found to have at least one nodule. Most nodules are benign (not cancer) and of no harm to you at all. A specialistwill make a scientific evaluation about whether or not a nodule is worrisome based on its size and shape. The radiologist who will read your scan will put it into one of four categories: LUNG-RADS Category Description Recommended Follow-Up 0 Incomplete -Comparison to prior chest CT -Additional lung screening CT imaging needed -1-3 mos LDCT follow up 1 Negative No nodules and definitely benign (non-cancerous nodules) 1 Year - Follow-up Low dose CT 2 Benign Appearance or Behavior (<6 mm at baseline or New <4 mm) Nodules with a very low likelihood of becoming cancer due to size or lack of growth 1Year - Follow-up Low dose CT 3 Probably Benign (6-8 mm at baseline or New 4-6 mm nodule) Probably benign finding, short term follow-up recommended 6 Months - Follow-up Low dose CT 4A Suspicious (8-15 mm at baseline, growing <8 mm, or New 6-8 mm) Findings for which additional diagnostic testing and/or biopsy is recommended 3-month LDCT; PET/CT may be considered if there is a >8mm solid nodule or solid component 4B Very Suspicious (>15 mm at baseline or New or growing > 8 mm) Findings for which additional diagnostic testing and/or biopsy is recommended Diagnostic Chest CT; PET/CT if > 8 mm; tissue sampling; and/or referral for further clinicalevaluation 4X Category 3 or 4 nodules with additional features or imaging findings that increase suspicious for lung cancer Findings for which additional diagnostic testing and/or biopsy is recommended Diagnostic Chest CT; PET/CT if > 8 mm; tissue sampling; and/or referral for further clinical evaluation At times, we may see something outside of the lungs on the scan that could be a health concern. These will be indicated on the radiology report with an S modifier. S Clinically Significant or Potentially Clinically Significant Findings (non lung cancer) Referral or additional imaging/labs depending on result. Approximately 10% of people receive this result. If you become sick prior to your scan please call or send a my chart message to see if you need to reschedule. Lung Cancer Screening hotline: [phone] Lung Cancer Screening [phone] Billing Questions: or [email or web address] Lung Cancer Screening Team: Cortney Shipley, PAPER BAG MAKER: [phone] documented in this encounterUniversity Hospitals Tripoint Medical Center02-08-2023 Miscellaneous Notes* Telephone Encounter - Peyton Peguero RN - 10/22/2022 11:52 AM EST Noted. New standing orders placed. Peyton Peguero (Cassie) RN, BSN Liver Overhead Garage Door Hanger * Telephone Encounter - Vi Brito - 10/21/2022 4:07 PM EST Patient called says he is going thru a Divorce, he has missed a couple of appointments, he says to let his Coordinator know it's hard because he is trying to do everything by himself now, he asked ifhis lab orders can be Updated in [facility], so he can get labs drawn. documented in this encounterUniversity Hospitals Tripoint Medical Center02-07-2023 Instructions* Patient Instructions* Giancarlo Kendall MD - 10/21/2022 1:56 PM EST Please call your nursing staff development coordinator for follow up regularly. documented in this encounterCleveland [id number] History of Present illness Narrative* Giancarlo Kendall MD - 10/21/2022 1:27 PM EST Patient presents with: Follow Up HPI: Patient presents today for office visit for 3 month follow up with multiple concerns. Currently unemployed. Going through a divorce. Having to find a new place to live by the end of November. Currently living alone [place] a [place]ground. Can no longer afford rent. Attempting to obtain disability. Was not taking Sertraline for about a week due to not remembering to take them. Smoking Marijuana for panic attacks. Has since restarted taking his meds. States he notices a big difference when he doesn't take them. He had previously been scheduled to see CODING ADVISOR at [place]. No showed for that appt. Is to see psych on the . Seeing psychology. No suicidal ideation. Asking about service animal vs emotional support animal. Had several falls. Last fall was last week. No head injury or or loc. Uses his cane some of the time. Encourage to do so. Hurts across his right chest. Does have occasional cough. Has not followed with cardiology. He has not followed with his transplant labs. Reminded him that he needs to contact them for followup. G.I: Belching a lot. Gassy. States the gas is very smelly. His diet has changed. Bowels are moving well. Had egd and colonscopy in 2019. They wanted to repeat colonscopy in five years per notes. Not taking his ppi regularly. Reminded to do so. No black or bloody stools. No issues with his urine. No seizures. MEDICATIONS: Current Outpatient Medications Medication Sig tacrolimus IR (PROGRAF) 0.5 mg capsule Take 1 capsule (0.5 mg) by mouth twice daily. Take with 1mg capsule for total 1.5mg twice daily tacrolimus IR (PROGRAF) 1 mg capsule Take 1 capsule (1mg) by mouth twice daily. Take in addition toone 0.5mg capsule for total dose of 1.5mg twice daily simvastatin (ZOCOR) 40 mg tablet Take 1 tablet by mouth daily at bedtime. pantoprazole DR (PROTONIX) 40 mg tablet Take 1 tablet by mouth daily before breakfast. Take on empty stomach, 1/2 hr before meal. lisinopril (ZESTRIL, PRINIVIL) 5 mg tablet Take 1 tablet by mouth once daily. metoprolol succinate ER (TOPROL XL) 25 mg 24 hr tablet Take 1 tablet by mouth once daily. alendronate (FOSAMAX) 70 mg tablet Take 1 tablet by mouth one time a week. Take with a full glass of water, on an empty stomach; do NOT lie down for 30minutes. On sundays sulfamethoxazole-trimethoprim (BACTRIM DS,SEPTRA DS) 800-160 mg per tablet 1 tablet every Thursday,Thursday,Thursday. sertraline (ZOLOFT) 50 mg tablet Take 1 tablet by mouth once daily. (Patient taking differently: Take 100 mg by mouth once daily.) Cholecalciferol, Vitamin D3, 25 mcg (1,000 unit) cap Take 1 capsule by mouth once daily. docusate sodium (COLACE) 100 mg capsule Take 1 capsule by mouth twice daily. Garlic 1,000 mg cap Take 1 capsule by mouth once daily. Current Facility-Administered Medications Medication Dose Route Frequency perflutren lipid microspheres 1.3 mL in NaCl (PF) 0.9% 10 mL injection (DEFINITY) INTRAVENOUS DIRECTED PRN sodium chloride 0.9 % (flush) 10 mL (BD POSIFLUSH) 10 mL INTRAVENOUS DIRECTED PRN ALLERGIES: ALLERGIES Allergen Reactions Acetaminophen Hives Hydrocodone Hives Morphine Hives, Other: See Comments Latex Rash Ketorolac Unknown Pt states allergy, told not to take with liver transplant Vancomycin (Bulk) Rash, Itching Vicodin [Hydrocodon* Itching PAST MEDICAL HISTORY Diagnosis Date BPH with obstruction/lower urinary tract symptoms Cirrhosis (HCC) ETOH abuse stopped etoh in 09/27 H/O liver transplant (HCC) 10/03/2015 Hepatitis C Hepatopulmonary syndrome (HCC) used oxygen 3 to 6 liters and off O2 since liver transplant Hypertension Marijuana use, continuous 12/28/2020 MRSA (methicillin resistant Staphylococcus aureus) 11/2011 New onset seizure (HCC) 10/05/2015 06/11/[address] Anurag Doyle:noted one seizure after transplant. No seizures since, off keppra.Initial EEG showed small amplitudes polyspikes overriding periodic patterns), later EEG became normal, brain MRI unremarkable. He has been off Keppra since March 2016. No further seizure. Non-ischemic cardiomyopathy (HCC) Osteoporosis Panic attacks Prostatitis 11/2011 Psoriasis PTSD (post-traumatic stress disorder) Sarcoidosis of the lungs Splenomegaly Thrombocytopenia (HCC) Pancytopenia resolved after liver transplant Unspecified hypothyroidism Hypothyroidism PAST SURGICAL HISTORY Procedure Laterality Date COLONOSCOPY FLX DX W/COLLJ SPEC WHEN PFRMD 10/14/13 Colonoscopy ESOPHAGOGASTRODUODENOSCOPY TRANSORAL DIAGNOSTIC 10/14/13 EGD ESOPHAGOGASTRODUODENOSCOPY TRANSORAL DIAGNOSTIC 01/31/2019 EGD INGUINAL HERNIA REPAIR HX 10/15/2016 LIVER BIOPSY NERVE ALTERATION 83? LEFT ELBOW ABOUT PAST SURGICAL HISTORY OF 83? Deviated septum PAST SURGICAL HISTORY OF Liver transplant : 09/2015 PAST SURGICAL HISTORY OF PFO repair 2015 PICC LINE INSERT/CONSULT 11/01/2015 PICC LINE INSERTION (PICC TEAM) ([place]) 11/22/2021 TONSILLECTOMY PRIMARY/SECONDARY <AGE 10 Tonsillectomy FAMILY HISTORY Problem Relation Age of Onset Arthritis Brother Back issues COPD Mother Alzheimer's Disease Father Diabetes Maternal Grandmother Diabetes Paternal Grandfather Amblyopia Daughter Social History Tobacco Use Smoking status: Former Packs/day: 1.00 Years: 23.00 Pack years: 23.00 Types: Cigarettes Start date: 09/14/1979 Quit date: 08/01/2013 Years since quittin.2 Smokeless tobacco: Never Vaping Use Vaping Use: Never used Substance Use Topics Alcohol use: No Alcohol/week: 0.0 standard drinks Comment: Quit 10/2011 Drug use: Yes Types: Marijuana Comment: now only marijuana to help with appetite and slee[ Reviewed current medications, allergies, past medical history, surgical history, family history andsocial history today. REVIEW OF SYSTEMS All other reviewed and negative other than HPI. HEALTH MAINTENANCE: Reviewed health maintenance issues today and recommended the following in detail. SHINGRIX VACCINE(1 of 2) due on 09/01/2014 LUNG CANCER SCREENING due on COVID-19 VACCINE(4 - Booster for Pfizer series) due on 09/16/2022 VITALS: BP 116/76 Pulse (!) 59 Ht 170.2 cm (5' 7) Wt 71.2 kg (157 lb) SpO2 97% BMI 24.59 kg/m Last 4 Encounter Wt Readings: Date: Wt: 07/21/2022 71.7 kg (158 lb) 06/03/2022 72.9 kg (160 lb 12.8 oz) 05/15/2022 70.3 kg (155 lb) 05/05/2022 68.9 kg (152 lb) PHYSICAL EXAMINATION: General appearance: Well appearing, alert, in no acute distress, well-hydrated, well nourished. Skin: Skin color, texture, turgor normal, no suspicious rashes or lesions Head: Normocephalic, no masses, lesions, tenderness or abnormalities Lungs: Lungs clear to auscultation. No wheezing, rhonchi, rales. Lungs clear to auscultation. No wheezing, rhonchi, rales Chest wall tender to palpation over right ribs. Heart: RRR without murmur, gallop, or rubs. No ectopy Abdomen: Normal abdominal exam, Abdomen soft, non-tender. Bowel sounds normal. No masses, organomegaly Extremities: No deformities, edema, skin discoloration, clubbing or cyanosis. Good capillary refill. ASSESSMENT/PLAN: 1. Essential hypertension - ICD9: 401.9, ICD10: I10 (primary diagnosis) - good control - Goal of BP <130/80 2. Mixed hyperlipidemia - ICD9: 272.2, ICD10: E78.2 - stable. 3. S/P liver transplant (HCC) - ICD9: V42.7, ICD10: Z94.4 - reminded he needs to follow with the transplant team and obtain his labs regularly - CBC + DIFF - COMP METABOLIC PANEL - GGT BLD - MAGNESIUM BLD - TACROLIMUS/FK-506 BL - PHOSPHORUS INORGANIC 4. Chronic hepatitis C without hepatic coma (HCC) - ICD9: 070.54, ICD10: B18.2 - check labs. 5. Urinary retention - ICD9: 788.20, ICD10: R33.9 - stable. 6. Hypothyroidism, unspecified type - ICD9: 244.9, ICD10: E03.9 - TSH BLD 7. Sarcoidosis - ICD9: 135, ICD10: D86.9 - stable. 8. PTSD (post-traumatic stress disorder) - ICD9: 309.81, ICD10: F43.10 - see psych 9. PFO (patent foramen ovale) - ICD9: 745.5, ICD10: Q21.12 - CONSULT TO CARDIOLOGY 11. Non-ischemic cardiomyopathy (HCC) - ICD9: 425.4, ICD10: I42.8 - CONSULT TO CARDIOLOGY 12. Paroxysmal atrial fibrillation (HCC) - ICD9: 427.31, ICD10: I48.0 - CONSULT TO CARDIOLOGY 13. History of tobacco use - ICD9: V15.82, ICD10: Z87.891 - CONSULT LUNG CANCER SCREENING CLINIC 14. Rib pain on right side - ICD9: 786.50, ICD10: R07.81 - Call if symptoms worsen at all or if not better in one to two weeks - XR RIBS/CHEST 3V AP RIB/OBLS/CXR RIGHT Giancarlo Kendall MD documented in this encounterUniversity Hospitals Tripoint Medical Center02-03-2023 Miscellaneous Notes* Telephone Encounter - Amairani Do Cma - 10/17/2022 11:37 AM EST Pt called said he needs a order for a psa. Psa order is pended. Amairani Do Cma documented in this encounterUniversity Hospitals Tripoint Medical Center01-11-2023 History of Present illness Narrative* Gloria Cristina APRN.CNP - 09/24/2022 8:44 AM EST Patient did not show up for his intake with the provider today. documented in this encounterUniversity Hospitals Tripoint Medical Center12-27-2022 Miscellaneous Notes* Telephone Encounter - Jesse Finney LPN - 09/09/2022 3:22 PM EST TC to pt, notified of provider response. He will see if he can print it off of [employer]. If he is unable to print letter off he will let us know. Jesse Finney LPN * Telephone Encounter - Giancarlo Kendall MD - 09/09/2022 1:39 PM EST Those are usually not paid for by insurance to my knowledge. Usually if where he lives requires a note. We write one. Letter made. Will need printed.(My printer not working from this computer) * Telephone Encounter - Ashly De Leon RN - 09/09/2022 1:20 PM EST In answer to question below: Patient requesting emotional support dog. Thank you. * Telephone Encounter - Giancarlo Kendall MD - 09/09/2022 12:20 PM EST Is he wanting just an emotional support dog? Or a service dog. Those are separate things. The service dog is for instance used to people with severe disabilities like blindness or hearing impaired. * Telephone Encounter - Ashly De Leon RN - 09/09/2022 10:39 AM EST Patient calling and requesting information to get a possible service dog due to issues with anxiety, panic and social anxiety. Denies thoughts of self harm or harming others and denies being in distress at this time. He stateshe is living [place] and going through a divorce-is from . Pursuing disability process and states PCP office should be receiving paperwork regarding this. Please advise patient regarding service dog information, if able. Thank you. documented in this encounterUniversity Hospitals Tripoint Medical Center12-27-2022 Miscellaneous Notes* Telephone Encounter - Peyton Peguero RN - 09/09/2022 3:17 PM EST I returned call to patient who was calling to let us know that he is getting , is living [facility], and is dealing with a lot of anxiety and stress. He is seeing a new psychiatrist locally,and will let us know if he has any needs. Peyton Peguero (Cassie) RN, BSN Liver Overhead Garage Door Hanger * Telephone Encounter - Rex Lopez - 09/09/2022 11:51 AM EST Patient left vm asking to speak to nurse coordinator. Call back number [phone] documented in this encounterUniversity Hospitals Tripoint Medical Center12-07-2022 Miscellaneous Notes* Telephone Encounter - Peyton Peguero RN - 08/20/2022 4:18 PM EST I received a voicemail from patient stating that he only has 2 days left of his tacrolimus. His lost her job, and patient is now on medicaid. He originally asked for prescription to be called into [facility] I called and spoke with patient. He states that his other 5 prescriptions are over $300. We discussed GoodRx, and found that [facility] is not a cheap option for tacrolimus. He asked that I call prescription [facility]. Patient's request for medication is as follows: Requested Prescriptions Pending Prescriptions Disp Refills tacrolimus IR (PROGRAF) 0.5 mg capsule 60 capsule 11 Sig: Take 1 capsule (0.5 mg) by mouth twice daily. Take with 1mg capsule for total 1.5mg twice daily tacrolimus IR (PROGRAF) 1 mg capsule 60 capsule 11 Sig: Take 1 capsule (1mg) by mouth twice daily. Take in addition to one 0.5mg capsule for total dose of 1.5mg twice daily Please approve the above prescription(s) to electronically send to pharmacy. Peyton Peguero RN documented in this encounterUniversity Hospitals Tripoint Medical Center12-06-2022 Miscellaneous Notes* Telephone Encounter - Flor Galaviz LPN - 08/19/2022 4:14 PM EST Left a detailed message with information listed below. Flor Galaviz LPN * Telephone Encounter - Giancarlo Kendall MD - 08/19/2022 3:55 PM EST He needs to get his prograf from his transplant providers * Telephone Encounter - Flor Galaviz LPN - 08/19/2022 11:16 AM EST Pt is switching pharmacy to [facility]. Flor Galaviz LPN Patient has been identified by name and date of : Yes Patient phones for refill(s): Requested Prescriptions Pending Prescriptions Disp Refills tacrolimus IR (PROGRAF) 0.5 mg capsule 60 capsule 11 Sig: Take 1 capsule (0.5 mg) by mouth twice daily. Take with 1mg capsule for total 1.5mg twice daily tacrolimus IR (PROGRAF) 1 mg capsule 60 capsule 11 simvastatin (ZOCOR) 40 mg tablet 90 tablet 3 Sig: Take 1 tablet by mouth daily at bedtime. pantoprazole DR (PROTONIX) 40 mg tablet 90 tablet 3 Sig: Take 1 tablet by mouth daily before breakfast. Take on empty stomach, 1/2 hr before meal. lisinopril (ZESTRIL, PRINIVIL) 5 mg tablet 90 tablet 3 Sig: Take 1 tablet by mouth once daily. metoprolol succinate ER (TOPROL XL) 25 mg 24 hr tablet 90 tablet 3 Sig: Take 1 tablet by mouth once daily. alendronate (FOSAMAX) 70 mg tablet 12 tablet 3 Sig: Take 1 tablet by mouth one time a week. Take with a full glass of water, on an empty stomach; do NOT lie down for 30minutes. On sundays sulfamethoxazole-trimethoprim (BACTRIM DS,SEPTRA DS) 800-160 mg per tablet 36 tablet 3 Si tablet every Thursday,Thursday,Thursday. Date of last office visit in primary care: 07/21/22 next apt 10/21/22 Last 2 Encounter Wt Readings: Date: Wt: 07/21/2022 71.7 kg (158 lb) 06/03/2022 72.9 kg (160 lb 12.8 oz) Previous labs/tests for medication: Cholesterol: HDL Cholesterol (mg/dL) Date Value 05/26/2022 75 08/16/2021 42 LDL Cholesterol (mg/dL) Date Value 05/26/2022 72 08/16/2021 98 ALT (U/L) Date Value 05/26/2022 60 08/16/2021 14 Non HDL Cholesterol (mg/dL) Date Value 05/26/2022 85 08/16/2021 123 Blood Pressure: BUN (mg/dL) Date Value 05/26/2022 18 08/16/2021 18 Sodium (mmol/L) Date Value 05/26/2022 138 08/16/2021 140 Last 1 Encounter BP Readings: Date: BP: 07/21/2022 108/60 Thank you. Flor Galaviz LPN documented in this encounterUniversity Hospitals Tripoint Medical Center11-29-2022 Miscellaneous Notes* Telephone Encounter - Giancarlo Kendall MD - 08/12/2022 12:41 PM EST noted * Telephone Encounter - Yuliana Velázquez LPN - 08/12/2022 9:31 AM EST Patient calling trying to get back on disability. His lost her job and they are . He is not sure what Social Security needs from his records. Patient said physically and mentally, he can not work. Patient said disability may be calling or faxing the office for information needed. documented in this encounterUniversity Hospitals Tripoint Medical Center11-07-2022 Instructions* Patient Instructions* Giancarlo Kendall MD - 07/21/2022 8:59 AM EST Get info for financial counselor. Has lost his insurance. documented in this encounterUniversity Hospitals Tripoint Medical Center11-07-2022 History of Present illness Narrative* Giancarlo Kendall MD - 07/21/2022 8:38 AM EST Patient presents with: Follow Up HPI: Patient presents today for office visit for follow up. Still having worsening issues with cramping in his hands. Chronically numb and left hand is worse. Right hand dominant. Has known left ulnar neuropathy. EMG in 2019. His feet sometimes curl up uncontrollably. Memory is stabilized. Never scheduled follow up with Neurology. He wants to wait right now due to cost. Canceled psych appointment on 06/11/22. Currently on 100 mg Sertraline at bedtime. Only anxiety currently stems from recently losing her job. Weight at least is no longer droppping Feels the sertraline is helping overall. Still has occasional panic attacks. Complaints of headaches when he gets frustrated. See his previous ov: Current job is phenomenal and would like to keep working. 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 He is currently not moving out of his home. His had been discussing divorce. Starts physical therapy on Thu of next weeks. Has an appt with Gloria for psych. Has been back in seeing Dr. Matute. 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 PSYCH: Currently tolerating medications well: Yes . Side effects: Yes. Some nausea and JORGE's Sleep issues: No. Energy changes: No. Appetite changes: No. Current depression: No. Current anxiety: No. Suicidal ideation: No. He was supposed to go into work for four days and then could not start due to anxiety Has been on higher doses of zoloft for four to five days. Having worsening issues with cramping in his hands. Is chronically numb and. Left hand is the worst.he is right hand dominant. Has known left ulnar neuropathy given emg in 2019. Discussed repeating his emg to see if we need to do something surgical. His feet sometimes curl up uncontrollably. His labs have been stable. MEDICATIONS: Current Outpatient Medications Medication Sig sertraline (ZOLOFT) 50 mg tablet Take 1 tablet by mouth once daily. Cholecalciferol, Vitamin D3, 25 mcg (1,000 unit) cap Take 1 capsule by mouth once daily. docusate sodium (COLACE) 100 mg capsule Take 1 capsule by mouth twice daily. simvastatin (ZOCOR) 40 mg tablet Take 1 tablet by mouth daily at bedtime. pantoprazole DR (PROTONIX) 40 mg tablet Take 1 tablet by mouth daily before breakfast. Take on empty stomach, 1/2 hr before meal. lisinopril (ZESTRIL, PRINIVIL) 5 mg tablet Take 1 tablet by mouth once daily. metoprolol succinate ER (TOPROL XL) 25 mg 24 hr tablet Take 1 tablet by mouth once daily. alendronate (FOSAMAX) 70 mg tablet Take 1 tablet by mouth one time a week. Take with a full glass of water, on an empty stomach; do NOT lie down for 30minutes. On sundays tacrolimus IR (PROGRAF) 0.5 mg capsule Take 1 capsule (0.5 mg) by mouth twice daily. Take with 1mg capsule for total 1.5mg twice daily tacrolimus IR (PROGRAF) 1 mg capsule Take 1 capsule (1mg) by mouth twice daily. Take in addition toone 0.5mg capsule for total dose of 1.5mg twice daily Garlic 1,000 mg cap Take 1 capsule by mouth once daily. Current Facility-Administered Medications Medication Dose Route Frequency perflutren lipid microspheres 1.3 mL in NaCl (PF) 0.9% 10 mL injection (DEFINITY) INTRAVENOUS DIRECTED PRN sodium chloride 0.9 % (flush) 10 mL (BD POSIFLUSH) 10 mL INTRAVENOUS DIRECTED PRN ALLERGIES: ALLERGIES Allergen Reactions Acetaminophen Hives Hydrocodone Hives Morphine Hives, Other: See Comments Latex Rash Ketorolac Unknown Pt states allergy, told not to take with liver transplant Vancomycin (Bulk) Rash, Itching Vicodin [Hydrocodon* Itching PAST MEDICAL HISTORY Diagnosis Date BPH with obstruction/lower urinary tract symptoms Cirrhosis (HCC) ETOH abuse stopped etoh in 09/27 H/O liver transplant (HCC) 10/03/2015 Hepatitis C Hepatopulmonary syndrome (HCC) used oxygen 3 to 6 liters and off O2 since liver transplant Hypertension Marijuana use, continuous 12/28/2020 MRSA (methicillin resistant Staphylococcus aureus) 11/2011 New onset seizure (HCC) 10/05/2015 06/11/[address] Anurag Doyle:noted one seizure after transplant. No seizures since, off keppra.Initial EEG showed small amplitudes polyspikes overriding periodic patterns), later EEG became normal, brain MRI unremarkable. He has been off Keppra since March 2016. No further seizure. Non-ischemic cardiomyopathy (HCC) Osteoporosis Panic attacks Prostatitis 11/2011 Psoriasis PTSD (post-traumatic stress disorder) Sarcoidosis of the lungs Splenomegaly Thrombocytopenia (HCC) Pancytopenia resolved after liver transplant Unspecified hypothyroidism Hypothyroidism PAST SURGICAL HISTORY Procedure Laterality Date COLONOSCOPY FLX DX W/COLLJ SPEC WHEN PFRMD 10/14/13 Colonoscopy ESOPHAGOGASTRODUODENOSCOPY TRANSORAL DIAGNOSTIC 10/14/13 EGD ESOPHAGOGASTRODUODENOSCOPY TRANSORAL DIAGNOSTIC 01/31/2019 EGD INGUINAL HERNIA REPAIR HX 10/15/2016 LIVER BIOPSY NERVE ALTERATION 83? LEFT ELBOW ABOUT PAST SURGICAL HISTORY OF 83? Deviated septum PAST SURGICAL HISTORY OF Liver transplant : 09/2015 PAST SURGICAL HISTORY OF PFO repair 2015 PICC LINE INSERT/CONSULT 11/01/2015 PICC LINE INSERTION (PICC TEAM) ([place]) 11/22/2021 TONSILLECTOMY PRIMARY/SECONDARY <AGE 10 Tonsillectomy FAMILY HISTORY Problem Relation Age of Onset Arthritis Brother Back issues COPD Mother Alzheimer's Disease Father Diabetes Maternal Grandmother Diabetes Paternal Grandfather Amblyopia Daughter Social History Tobacco Use Smoking status: Former Packs/day: 1.00 Years: 23.00 Pack years: 23.00 Types: Cigarettes Start date: 09/14/1979 Quit date: 08/01/2013 Years since quittin.9 Smokeless tobacco: Never Vaping Use Vaping Use: Never used Substance Use Topics Alcohol use: No Alcohol/week: 0.0 standard drinks Comment: Quit 10/2011 Drug use: Yes Types: Marijuana Comment: now only marijuana to help with appetite and slee[ Reviewed current medications, allergies, past medical history, surgical history, family history andsocial history today. REVIEW OF SYSTEMS All other reviewed and negative other than HPI. HEALTH MAINTENANCE: Reviewed health maintenance issues today and recommended the following in detail. INFLUENZA(1) due on 05/15/2022 VITALS: BP 108/60 Pulse 64 Ht 170.2 cm (5' 7) Wt 71.7 kg (158 lb) SpO2 96% BMI 24.75 kg/m Last 4 Encounter Wt Readings: Date: Wt: 06/03/2022 72.9 kg (160 lb 12.8 oz) 05/15/2022 70.3 kg (155 lb) 05/05/2022 68.9 kg (152 lb) 03/11/2022 63.5 kg (140 lb) PHYSICAL EXAMINATION: General appearance: Well appearing, alert, in no acute distress, well-hydrated, well nourished. Skin: Skin color, texture, turgor normal, no suspicious rashes or lesions Head: Normocephalic, no masses, lesions, tenderness or abnormalities= Neck: Supple, no adenopathy; thyroid symmetric, normal size, no bruits Back: Normal exam Lungs: Lungs clear to auscultation. No wheezing, rhonchi, rales Heart: RRR without murmur, gallop, or rubs. No ectopy Abdomen: Normal abdominal exam, Abdomen soft, non-tender. Bowel sounds normal. No masses, organomegaly Extremities: No deformities, edema, skin discoloration, clubbing or cyanosis. Good capillary refill. ASSESSMENT/PLAN: 1. Neuromyopathy (HCC) - ICD9: 358.9, ICD10: G70.9 (primary diagnosis) - call if any issues. 2. Need for influenza vaccination - ICD9: V04.81, ICD10: Z23 - INFLUENZA VACCINE QUADRIVALENT 6 MO - 64 YRS IM 3. Essential hypertension - ICD9: 401.9, ICD10: I10 - good control - Goal of BP <130/80 4. S/P liver transplant (HCC) - ICD9: V42.7, ICD10: Z94.4 - doing well. Discussed staying on meds. 5. PTSD (post-traumatic stress disorder) - ICD9: 309.81, ICD10: F43.10 Giancarlo Kendall MD RTO in three months documented in this encounterUniversity Hospitals [facility]10-18-2022 Miscellaneous Notes* Telephone Encounter - Ashly De Leon RN - 07/01/2022 2:39 PM EDT Patient calling to follow up on message from , and if disability paperwork has been receivedin office. Please call patient with update. Thank you. * Telephone Encounter - Flor Galaviz LPN - 06/23/2022 11:50 AM EDT Pt called and states he will be applying for disability and papers will be coming. Pt states his lost her job. He was on disability before and went off and needs to go back on this. Pt has not started th process as of yet, but wanted you to know what has happened. Flor Galaviz LPN documented in this encounterUniversity Hospitals [facility]point [facility] Center10-10-2022 Miscellaneous Notes* Telephone Encounter - Peyton Peguero RN - 06/23/2022 2:47 PM EDT I called and spoke with patient about his lab work. He will repeat his labs this week. He was recently ill and completed a course of antibiotics for an infection in his throat. Peyton Peguero (Cassie) RN, BSN Liver Overhead [employer] documented in this encounterUniversity Hospitals Tripoint [facility] Center09-28-2022 History of Present illness Narrative* Gloria Cristina APRN.SEBASTIÁN - 06/11/2022 9:49 AM EDT Patient cancelled his appointment the day of the appointment and rescheduled. documented in this encounterUniversity Hospitals Tripoint [facility] Center09-20-2022 Miscellaneous Notes* Telephone Encounter - Candy Bailey - 06/03/2022 4:10 PM EDT Patient given results and verbalized understanding of instructions given. Candy Bailey * Telephone Encounter - Krissy Burrows PA-C - 06/03/2022 2:56 PM EDT Let patient know his strep test was negative. documented in this [facility]09-20-2022 History of Present illness Narrative* Krissy Burrows PA-C - 06/03/2022 2:51 PM EDT This note was created using Workboardriter. Subjective Troy Carlson is a 57 year old male. HPI Patient presents with left ear neck and jaw pain over the past day. He had noticed the front of hisneck was a little swollen as well. He has been blowing his nose for the past couple of days. Very minimal cough. No fever. He thought it was his allergies flaring up. Denies a sore throat but was concern for strep as well. He is a liver transplant patient. Denies any swelling in his abdomen or legs. He is vaccinated for COVID x2. He states he also has a history of sarcoidosis and had problems with his lymph nodes previously. He has had all of his teeth pulled other than 6 in the lower front region. Review of Systems Constitutional: Positive for fatigue. Negative for fever. HENT: Positive for congestion and rhinorrhea. Respiratory: Positive for cough. Cardiovascular: Negative for leg swelling. Gastrointestinal: Negative for abdominal distention and abdominal pain. Genitourinary: Negative. Musculoskeletal: Positive for neck pain. Hematological: Positive for adenopathy. All other systems reviewed and are negative. PAST MEDICAL HISTORY Diagnosis Date BPH with obstruction/lower urinary tract symptoms Cirrhosis (HCC) ETOH abuse stopped etoh in 09/27 H/O liver transplant (HCC) 10/03/2015 Hepatitis C Hepatopulmonary syndrome (HCC) used oxygen 3 to 6 liters and off O2 since liver transplant Hypertension Marijuana use, continuous 12/28/2020 MRSA (methicillin resistant Staphylococcus aureus) 11/2011 New onset seizure (HCC) 10/05/2015 06/11/[address] Anurag Doyle:noted one seizure after transplant. No seizures since, off keppra.Initial EEG showed small amplitudes polyspikes overriding periodic patterns), later EEG became normal, brain MRI unremarkable. He has been off Keppra since March 2016. No further seizure. Non-ischemic cardiomyopathy (HCC) Osteoporosis Panic attacks Prostatitis 11/2011 Psoriasis PTSD (post-traumatic stress disorder) Sarcoidosis of the lungs Splenomegaly Thrombocytopenia (HCC) Pancytopenia resolved after liver transplant Unspecified hypothyroidism Hypothyroidism Current Outpatient Medications Medication Sig Dispense Refill sertraline (ZOLOFT) 50 mg tablet Take 1 tablet by mouth once daily. 30 tablet 2 Cholecalciferol, Vitamin D3, 25 mcg (1,000 unit) cap Take 1 capsule by mouth once daily. 90 capsule3 docusate sodium (COLACE) 100 mg capsule Take 1 capsule by mouth twice daily. 60 capsule 11 simvastatin (ZOCOR) 40 mg tablet Take 1 tablet by mouth daily at bedtime. [address] (PROTONIX) 40 mg tablet Take 1 tablet by mouth daily before breakfast. Take on empty stomach, 1/2 hr before meal. 90 tablet 3 lisinopril (ZESTRIL, PRINIVIL) 5 mg tablet Take 1 tablet by mouth once daily. 90 tablet 3 metoprolol succinate ER (TOPROL XL) 25 mg 24 hr tablet Take 1 tablet by mouth once daily. 90 tablet3 alendronate (FOSAMAX) 70 mg tablet Take 1 tablet by mouth one time a week. Take with a full glass of water, on an empty stomach; do NOT lie down for 30minutes. On sundays 12 tablet 3 tacrolimus IR (PROGRAF) 0.5 mg capsule Take 1 capsule (0.5 mg) by mouth twice daily. Take with 1mg capsule for total 1.5mg twice daily 60 capsule 11 tacrolimus IR (PROGRAF) 1 mg capsule Take 1 capsule (1mg) by mouth twice daily. Take in addition toone 0.5mg capsule for total dose of 1.5mg twice daily 60 capsule 11 Garlic 1,000 mg cap Take 1 capsule by mouth once daily. 90 capsule 3 amoxicillin-clavulanic acid (AUGMENTIN) 875-125 mg per tablet Take 1 tablet by mouth twice daily for 7 days. 14 tablet 0 Current Facility-Administered Medications Medication Dose Route Frequency Provider Last Rate Last Admin perflutren lipid microspheres 1.3 mL in NaCl (PF) 0.9% 10 mL injection (DEFINITY) INTRAVENOUS DIRECTED PRN Sujata Torres APRN.SEBASTIÁN sodium chloride 0.9 % (flush) 10 mL (BD POSIFLUSH) 10 mL INTRAVENOUS DIRECTED PRN Sujata Torres APRN.SEBASTIÁN PAST SURGICAL HISTORY Procedure Laterality Date COLONOSCOPY FLX DX W/COLLJ SPEC WHEN PFRMD 10/14/13 Colonoscopy ESOPHAGOGASTRODUODENOSCOPY TRANSORAL DIAGNOSTIC 10/14/13 EGD ESOPHAGOGASTRODUODENOSCOPY TRANSORAL DIAGNOSTIC 01/31/2019 EGD INGUINAL HERNIA REPAIR HX 10/15/2016 LIVER BIOPSY NERVE ALTERATION 83? LEFT ELBOW ABOUT PAST SURGICAL HISTORY OF 83? Deviated septum PAST SURGICAL HISTORY OF Liver transplant : 09/2015 PAST SURGICAL HISTORY OF PFO repair 2015 PICC LINE INSERT/CONSULT 11/01/2015 PICC LINE INSERTION (PICC TEAM) ([place]) 11/22/2021 TONSILLECTOMY PRIMARY/SECONDARY <AGE 10 Tonsillectomy FAMILY HISTORY Problem Relation Age of Onset Arthritis Brother Back issues COPD Mother Alzheimer's Disease Father Diabetes Maternal Grandmother Diabetes Paternal Grandfather Amblyopia Daughter Social History Tobacco Use Smoking status: Former Packs/day: 1.00 Years: 23.00 Pack years: 23.00 Types: Cigarettes Start date: 09/14/1979 Quit date: 08/01/2013 Years since quittin.8 Smokeless tobacco: Never Vaping Use Vaping Use: Never used Substance Use Topics Alcohol use: No Alcohol/week: 0.0 standard drinks Comment: Quit 10/2011 Drug use: Yes Types: Marijuana Comment: now only marijuana to help with appetite and slee[ Objective BP 122/70 Pulse (!) 59 Temp 37.1 C (98.7 F) Resp 18 Wt 72.9 kg (160 lb 12.8 oz) SpO2 98% BMI 25.18 kg/m Physical Exam Vitals reviewed. Constitutional: Appearance: Normal appearance. HENT: Head: Normocephalic and atraumatic. Neck: Comments: Patient has some minimal fluid in the anterior neck with no induration or redness. No sign of cellulitis. He does have tenderness with swelling of submandibular lymph node versus salivary gland on the left x2. No overlying redness. No swelling along the jawline. No sign of Myesha's angina or deep neck space infection. Cardiovascular: Rate and Rhythm: Normal rate and regular rhythm. Heart sounds: Normal heart sounds. Pulmonary: Effort: Pulmonary effort is normal. Breath sounds: Normal breath sounds. Musculoskeletal: Cervical back: Neck supple. Skin: General: Skin is warm and dry. Neurological: Mental Status: He is alert. Assessment and Plan ASSESSMENT/PLAN: 1. Pain in salivary gland region - ICD9: 527.8, ICD10: K11.8 Lymphadenopathy versus salivary gland swelling. I did check a strep which was negative. Patient hashad some nasal congestion for couple days so COVID and flu is pending. I will cover with Augmentin.He also does have teeth in the front and has had dental abscesses previously. I will have him closely follow-up with PCP. Red flags to be seen in the ER discussed. Patient agreeable. - COVID WITH FLUA+B, ROUTINE - STREP A MOLECULAR (POC) Krissy Burrows PA-C documented in this encounterUniversity Hospitals [facility] Center09-01-2022 History of Present illness Narrative* Giancarlo Kendall MD - 05/15/2022 12:54 PM EDT Patient presents with: Follow Up HPI: Patient presents today for office visit for follow up on anxiety/depression. Discuss work excuse Current job is phenomenal and would like to keep working. 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 He is currently not moving out of his home. His had been discussing divorce. Starts physical therapy on Thu of next weeks. Has an appt with Gloria for psych. Has been back in seeing Dr. Matute. 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 PSYCH: Currently tolerating medications well: Yes . Side effects: Yes. Some nausea and JORGE's Sleep issues: No. Energy changes: No. Appetite changes: No. Current depression: No. Current anxiety: No. Suicidal ideation: No. He was supposed to go into work for four days and then could not start due to anxiety Has been on higher doses of zoloft for four to five days. Having worsening issues with cramping in his hands. Is chronically numb and. Left hand is the worst.he is right hand dominant. Has known left ulnar neuropathy given emg in 2019. Discussed repeating his emg to see if we need to do something surgical. His feet sometimes curl up uncontrollably. His labs have been stable. MEDICATIONS: Current Outpatient Medications Medication Sig sertraline (ZOLOFT) 50 mg tablet Take 1 tablet by mouth once daily. Cholecalciferol, Vitamin D3, 25 mcg (1,000 unit) cap Take 1 capsule by mouth once daily. docusate sodium (COLACE) 100 mg capsule Take 1 capsule by mouth twice daily. simvastatin (ZOCOR) 40 mg tablet Take 1 tablet by mouth daily at bedtime. pantoprazole DR (PROTONIX) 40 mg tablet Take 1 tablet by mouth daily before breakfast. Take on empty stomach, 1/2 hr before meal. lisinopril (ZESTRIL, PRINIVIL) 5 mg tablet Take 1 tablet by mouth once daily. metoprolol succinate ER (TOPROL XL) 25 mg 24 hr tablet Take 1 tablet by mouth once daily. alendronate (FOSAMAX) 70 mg tablet Take 1 tablet by mouth one time a week. Take with a full glass of water, on an empty stomach; do NOT lie down for 30minutes. On sundays sulfamethoxazole-trimethoprim (BACTRIM DS,SEPTRA DS) 800-160 mg per tablet 1 tablet every Thursday,Thursday,Thursday. tacrolimus IR (PROGRAF) 0.5 mg capsule Take 1 capsule (0.5 mg) by mouth twice daily. Take with 1mg capsule for total 1.5mg twice daily tacrolimus IR (PROGRAF) 1 mg capsule Take 1 capsule (1mg) by mouth twice daily. Take in addition toone 0.5mg capsule for total dose of 1.5mg twice daily Garlic 1,000 mg cap Take 1 capsule by mouth once daily. Current Facility-Administered Medications Medication Dose Route Frequency perflutren lipid microspheres 1.3 mL in NaCl (PF) 0.9% 10 mL injection (DEFINITY) INTRAVENOUS DIRECTED PRN sodium chloride 0.9 % (flush) 10 mL (BD POSIFLUSH) 10 mL INTRAVENOUS DIRECTED PRN ALLERGIES: ALLERGIES Allergen Reactions Acetaminophen Hives Hydrocodone Hives Morphine Hives, Other: See Comments Latex Rash Ketorolac Unknown Pt states allergy, told not to take with liver transplant Vancomycin (Bulk) Rash, Itching Vicodin [Hydrocodon* Itching PAST MEDICAL HISTORY Diagnosis Date BPH with obstruction/lower urinary tract symptoms Cirrhosis (HCC) ETOH abuse stopped etoh in 09/27 H/O liver transplant (HCC) 10/03/2015 Hepatitis C Hepatopulmonary syndrome (HCC) used oxygen 3 to 6 liters and off O2 since liver transplant Hypertension Marijuana use, continuous 12/28/2020 MRSA (methicillin resistant Staphylococcus aureus) 11/2011 New onset seizure (HCC) 10/05/2015 06/11/[address] Anurag Doyle:noted one seizure after transplant. No seizures since, off keppra.Initial EEG showed small amplitudes polyspikes overriding periodic patterns), later EEG became normal, brain MRI unremarkable. He has been off Keppra since March 2016. No further seizure. Non-ischemic cardiomyopathy (HCC) Osteoporosis Panic attacks Prostatitis 11/2011 Psoriasis PTSD (post-traumatic stress disorder) Sarcoidosis of the lungs Splenomegaly Thrombocytopenia (HCC) Pancytopenia resolved after liver transplant Unspecified hypothyroidism Hypothyroidism PAST SURGICAL HISTORY Procedure Laterality Date COLONOSCOPY FLX DX W/COLLJ SPEC WHEN PFRMD 10/14/13 Colonoscopy ESOPHAGOGASTRODUODENOSCOPY TRANSORAL DIAGNOSTIC 10/14/13 EGD ESOPHAGOGASTRODUODENOSCOPY TRANSORAL DIAGNOSTIC 01/31/2019 EGD INGUINAL HERNIA REPAIR HX 10/15/2016 LIVER BIOPSY NERVE ALTERATION 83? LEFT ELBOW ABOUT PAST SURGICAL HISTORY OF 83? Deviated septum PAST SURGICAL HISTORY OF Liver transplant : 09/2015 PAST SURGICAL HISTORY OF PFO repair 2015 PICC LINE INSERT/CONSULT 11/01/2015 PICC LINE INSERTION (PICC TEAM) ([place]) 11/22/2021 TONSILLECTOMY PRIMARY/SECONDARY <AGE 10 Tonsillectomy FAMILY HISTORY Problem Relation Age of Onset Arthritis Brother Back issues COPD Mother Alzheimer's Disease Father Diabetes Maternal Grandmother Diabetes Paternal Grandfather Amblyopia Daughter Social History Tobacco Use Smoking status: Former Packs/day: 1.00 Years: 23.00 Pack years: 23.00 Types: Cigarettes Start date: 09/14/1979 Quit date: 08/01/2013 Years since quittin.7 Smokeless tobacco: Never Vaping Use Vaping Use: Never used Substance Use Topics Alcohol use: No Alcohol/week: 0.0 standard drinks Comment: Quit 10/2011 Drug use: Yes Types: Marijuana Comment: now only marijuana to help with appetite and slee[ Reviewed current medications, allergies, past medical history, surgical history, family history andsocial history today. REVIEW OF SYSTEMS All other reviewed and negative other than HPI. VITALS: BP 114/70 Pulse 66 Ht 170.2 cm (5' 7) Wt 70.3 kg (155 lb) SpO2 98% BMI 24.28 kg/m Last 4 Encounter Wt Readings: Date: Wt: 05/15/2022 70.3 kg (155 lb) 05/05/2022 68.9 kg (152 lb) 03/11/2022 63.5 kg (140 lb) 02/06/2022 65.8 kg (145 lb) PHYSICAL EXAMINATION: General appearance: Well appearing, alert, in no acute distress, well-hydrated, well nourished. Skin: Skin color, texture, turgor normal, no suspicious rashes or lesions Head: Normocephalic, no masses, lesions, tenderness or abnormalities Lungs: Lungs clear to auscultation. No wheezing, rhonchi, rales Heart: RRR without murmur, gallop, or rubs. No ectopy Abdomen: Normal abdominal exam, Abdomen soft, non-tender. Bowel sounds normal. No masses, organomegaly Extremities: No deformities, edema, skin discoloration, clubbing or cyanosis. Good capillary refill. Musculoskeletal: No joint swelling, deformity, or tenderness Peripheral pulses: Normal Neuro: Gait normal. Reflexes normal and symmetric. Sensation grossly intact. ASSESSMENT/PLAN: 1. Paresthesia - ICD9: 782.0, ICD10: R20.2 (primary diagnosis) - continue therapy. Offered to repeat emg. See neurology. Call if any issues. - CONSULT TO NEUROLOGY 2. Spasm - ICD9: 781.0, ICD10: R25. - CONSULT TO NEUROLOGY 3. 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 Essential hypertension - ICD9: 401.9, ICD10: I10 - good control - Continue current medication(s) - Goal of BP <130/80 5. PTSD (post-traumatic stress disorder) - ICD9: 309.81, ICD10: F43.10 - stable. Giancarlo Kendall RTO in two months and prn. documented in this encounterUniversity Hospitals Tripoint [facility] Center08-31-2022 Miscellaneous Notes* Telephone Encounter - Catrina Monroe LPN - 05/14/2022 1:45 PM EDT Scheduled to discuss with Dr Kendall. * Telephone Encounter - Xochitl Tsai Ma - 05/14/2022 8:35 AM EDT Pt notified via alley. Xochitl Tsai Ma * Telephone Encounter - Catrina Monroe LPN - 05/09/2022 10:45 AM EDT Unable to reach patient message says he is not reachable. * Telephone Encounter - Carina Hirsch PA-C - 05/08/2022 6:30 PM EDT I have seen him once last week out of the last 13 months. He will need to talk with Dr. Matute and Dr. Kendall about ANSELMO. Letter sent covering the day I saw him. Thanks, Moy Hirsch PA-C * Telephone Encounter - Yuliana Velázquez LPN - 05/08/2022 1:30 PM EDT Patient calling to check status of request. Patient was not aware Moy Hirsch is not in office on Thursday. Patient said he has tried to go to work and has panic attacks, diarrhea, etc. Patient is asking for note from 04/27/2022 to today 05/08/2022. Patient asking for it to sent to his my chart. Please advise * Telephone Encounter - Candy Hampton - 05/07/2022 1:26 PM EDT Patient called stating a letter is needed for his employer. He states the letter(s) would come fromMoy Hirsch and Dr. Matute regarding why patient is unable to work at this time. He states he wantsto keep his job and be able to return to it after he is given permission/released. Patient requesting that letters be sent to My Chart. *sending message above to Dr. Matute by email. documented in this encounterCleveland [id number] Miscellaneous Notes* Telephone Encounter - Flor Galaviz LPN - 05/13/2022 12:32 PM EDT Pt called and requested his PT orders to be faxed to [facility]. Also sent demographics sheet andinsurance cards. Done. Flor Galaviz LPN documented in this encounterUniversity Hospitals Tripoint Medical Center08-22-2022 Instructions* Patient Instructions* M Roland Hirsch PA-C - 05/05/2022 11:22 AM EDT Sertraline, Oral What are other names for this medicine? Type of medicine: selective serotonin reuptake inhibitor (SSRI); antidepressant Generic and brand names: sertraline, oral; Zoloft; Zoloft Oral Concentrate What is this medicine used for? This medicine is taken by mouth to treat: depression obsessive-compulsive disorder (OCD) panic disorder posttraumatic stress disorder social anxiety disorder (social phobia) premenstrual dysphoric disorder (PMDD). It may also be used for other conditions as determined by your healthcare provider. What should my healthcare provider know before I take this medicine? Before taking this medicine, tell your healthcare provider if you have ever had: an allergic reaction to any medicine heart disease liver or kidney disease seizures (convulsions) other mood disorders such as bipolar disorder problems with low levels of sodium in the blood thoughts of suicide Do not take this medicine if you have taken an MAO inhibitor antidepressant in the last 2 weeks. Serious side effects can occur. Discuss this with your healthcare provider. Do not take pimozide (Orap) while taking this medicine. Females of childbearing age: Talk with your healthcare provider if you are or plan to become . It is not known whether this medicine will harm an unborn baby. Do not breast-feed while taking this medicine without your healthcare provider's approval. How do I take it? Take this medicine exactly as your healthcare provider prescribes. Do not take more of it or take it longer than prescribed. Taking too much can increase the risk of side effects. Do not stop taking this medicine without your healthcare provider's approval. You may need to reduce your dosage slowlyto avoid withdrawal symptoms. An adult should supervise the use of this medicine by a child. This medicine comes in tablet and liquid concentrate form. If you have the liquid concentrate, use the dropper to measure the exact dose your healthcare provider prescribes. Just before taking it, mix the dose with a cup of water, demetrius rukhsana, lemon/nansemond indian tribe soda, lemonade, or orange juice ONLY. Do not mix it with any other liquid. Drink it right after you mix it. Do not take disulfiram (Antabuse) while taking the liquid form of this medicine. Your healthcare provider will want to see you regularly to check your response to this medicine andto see if your dosage needs to be changed. It may take some time for you to feel better. Do not stop taking the medicine until your healthcare provider tells you to do so. You may have to take this medicine for 4 weeks or more to feel its full effects. Do not miss a dose. If you miss a dose, take it as soon as you remember unless it is almost time for the next scheduled dose. In that case, skip the missed dose and take the next one as directed. Do not take double doses. If you are not sure of what to do if you miss a dose, or if you miss more than one dose, contact your healthcare provider. What should I watch out for? Children and teens who take antidepressants are more likely to think about harming or killing themselves or try to do so than children who do not take antidepressants. Call your child's healthcare provider right away if your child or teen has: new or increased thoughts of suicide changes in mood or behavior such as becoming irritable or anxious. This medicine may make you dizzy or drowsy. Do not drive or operate machinery unless you are fully alert. This medicine may increase the effects of alcohol and interact with many other medicines. Do not drink alcohol or take any other medicine, including nonprescription products or natural remedies, unless your healthcare provider approves. Occasionally, this medicine can cause some sexual problems. Ask your healthcare provider about this. In rare cases, this medicine may cause severe weight loss. Talk to your healthcare provider about this. Adults over the age of 65 may be more sensitive to this medicine and may require a different dosage. What are the possible side effects? Along with its needed effects, your medicine may cause some unwanted side effects. Some side effects may be very serious. Some side effects may go away as your body adjusts to the medicine. Tell yourhealthcare provider if you have any side effects that continue or get worse. Life-threatening (Report these to your healthcare provider right away. If you are unable to reach your healthcare provider right away, get emergency medical care or call 911 for help): Allergic reaction (hives; itching; rash; trouble breathing; tightness in your chest; swelling of your lips, tongue, and throat) Serious (report these to your healthcare provider right away): Thoughts of suicide; seizures; severe nervousness; rash; severe headache; hallucinations; slurred speech; severe confusion; fast heart beat. Other: Headache, loss of appetite, weight loss or gain, drowsiness, stomach pain, weakness, nausea,vomiting, shaking, trouble sleeping, dizziness, dry mouth, constipation, sweating, diarrhea, restlessness, rash, itching, change in sex drive or ability, muscle or joint pain, fever. What products might interact with this medicine? When you take this medicine with other medicines, it can change the way this or any of the other medicines work. Nonprescription medicines, vitamins, natural remedies, and certain foods may also interact. Using these products together might cause harmful side effects. Talk to your healthcare provider if you are taking: anti-HIV medicines such as delavirdine (Rescriptor) and ritonavir (Norvir) antipsychotics such as aripiprazole (Abilify), clozapine (Clozaril), haloperidol (Haldol), and risperidone (Risperdal) antiseizure medicines such as carbamazepine (Tegretol), valproic acid (Depakote), and phenytoin (Dilantin) aspirin or other salicylates atomoxetine (Strattera) benzodiazepines such as diazepam (Valium), alprazolam (Xanax), and triazolam (Halcion) beta blockers such as bisoprolol (Zebeta), propranolol (Inderal), timolol, and metoprolol (Lopressor, Toprol XL) buspirone (BuSpar) cimetidine (Tagamet) dextromethorphan, an ingredient in many cough and cold medicines such as Robitussin-DM digoxin (Lanoxin) disulfiram (Antabuse) may interact with the liquid concentrate of this medicine because it containsalcohol diuretics (water pills) such as hydrochlorothiazide (Esidrix, Microzide), furosemide (Lasix), chlorothiazide (Diuril), bumetanide (Bumex), torsemide (Demadex), spironolactone (Aldactone), triamterene(Dyrenium), and amiloride (Midamor) heart medicines such as propafenone (Rythmol), flecainide (Tambocor), mexiletine (Mexitil), procainamide (Pronestyl) and quinidine herbal remedies such as Marta's wort, kava, valerian, SAMe, tryptophan, and gotu nancy linezolid (Zyvox) lithium (Lithobid, Eskalith) MAO inhibitor antidepressants such as isocarboxazid (Marplan), phenelzine (Nardil), selegiline (Eldepryl), or tranylcypromine (Parnate) (Do not take an MAO inhibitor and this medicine within 14 days of each other.) medicines to treat migraines such as naratriptan (Amerge), almotriptan (Axert), frovatriptan (Frova), rizatriptan (Maxalt), eletriptan (Relpax) zolmitriptan (Zomig), and sumatriptan succinate (Imitrex) muscle relaxants such as tizanidine (Zanaflex), cyclobenzaprine (Flexeril), carisoprodol (Soma), methocarbamol (Robaxin), dantrolene Dantrium), and baclofen (Lioresal) nonsteroidal anti-inflammatory drugs (NSAIDs) such as ibuprofen (Motrin, Motrin IB, Advil, Nuprin),naproxen (Naprosyn, Anaprox, Aleve, Naprelan), ketoprofen (Orudis, Orudis KT, Oruvail), nabumetone (Relafen), indomethacin (Indocin), ketorolac (Toradol), sulindac (Clinoril), piroxicam (Feldene), diclofenac (Voltaren, Cataflam), and oxaprozin (Daypro) other antidepressants such as bupropion (Wellbutrin), nefazodone, amitriptyline, nortriptyline (Aventyl, Pamelor), imipramine (Tofranil), doxepin (Sinequan), sertraline (Zoloft), fluoxetine (Prozac),escitalopram (Lexapro), paroxetine (Paxil), venlafaxine (Effexor), fluvoxamine (Luvox), bupropion (Wellbutrin), and trazodone (Desyrel) pain medicines such as morphine (Oramorph, MS Contin, Roxanol), codeine, oxycodone (OxyContin, Roxicodone), meperidine (Demerol), hydrocodone/acetaminophen (Vicodin, Lortab), methadone (Dolophine), and tramadol (Ultram) phenothiazines such as chlorpromazine (Thorazine), prochlorperazine (Compazine), perphenazine, thioridazine, and trifluoperazine (Stelazine) procarbazine (Matulane) sedatives such as phenobarbital, zolpidem (Ambien), triazolam (Halcion), butabarbital (Butisol), and zaleplon (Sonata) stimulants and appetite suppressants such as dextroamphetamine (Dexedrine, Dextrostat), methamphetamine (Desoxyn), sibutramine (Meridia), and methylphenidate (Ritalin) warfarin (Coumadin). Do not drink alcohol while you are taking this medicine. Keep a list of all your medicines (prescription, nonprescription, supplements, natural remedies, and vitamins) with you. Be sure that you tell all healthcare providers who treat you about all the products you are taking. How should I store this medicine? Store this medicine at room temperature. Keep the container tightly closed. Protect from heat, highhumidity, and bright light. This advisory includes selected information only and may not include all side effects of this medicine or interactions with other medicines. Ask your healthcare provider or pharmacist for more information or if you have any questions. Ask your pharmacist for the best way to dispose of outdated medicine or medicine you have not used.Do not throw medicine in the trash. Keep all medicines out of the reach of children. Do not share medicines with other people. Published by [employer]. This content is reviewed periodically and is subject to change as new health information becomes available. The information is intended to inform and educate and is not a replacement for medical evaluation, advice, diagnosis or treatment by a healthcare professional. Developed by [employer] Copyright 2007 [employer] and/or one of its subsidiaries. All Rights Reserved. Special Instructions: Do not stop suddenly: has to be weaned. Copyright [employer] 2007 [employer]visor Copyright 2008 [employer]. All rights reserved. - [email or web address] documented in this encounterUniversity Hospitals Tripoint Medical Center08-22-2022 History of Present illness Narrative* Carina Hirsch PA-C - 05/05/2022 11:05 AM EDT 57 year old male with s/p liver transplant, Hep C with neg viral load s/p Harvoni, pAF, HTN c/o exacerbation anxiety and depression. Nearly flight of ideas all pertaining to current stresses. Got a job, next day lost the job due to feeling panic about going to work, crying and expressing emotional conflict to employer. 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 States told him she doesn't love him and doesn't want to be any longer. Hasn't moved out: still living with her at her uncle's house for the seeable near future. No lacking housing or food. Called suicide hotline but states he is not suicidal, only feels alone. States conversation he toldthem he didn't need treatment, just someone to with whom to talk. Seeing Dr. Thomas Matute but objects to his jain views but feels he has has had benefit from conversations. Feels no one understands his pressures and what he goes through as a result of hi s transplant. Tried to work to satisfy , now has nothing for his effort. Petar any suicidal ideation but feels trapped by his situations. Prior medications: Bupropion Clonazepam Fluoxetine gabapentin sertraline trazodone Denies alcohol use Stop smoking 2011 Daily marijuana use which is the only thing that helps with his appetite and sleep. Chronic pain in neck, upper back, lower back. Has been in physical therapy at [facility] which helped, like to restart. HISTORIES FAMILY HISTORY Problem Relation Age of Onset Arthritis Brother Back issues COPD Mother Alzheimer's Disease Father Diabetes Maternal Grandmother Diabetes Paternal Grandfather Amblyopia Daughter PAST MEDICAL HISTORY Diagnosis Date BPH with obstruction/lower urinary tract symptoms Cirrhosis (HCC) ETOH abuse stopped etoh in 09/27 H/O liver transplant (HCC) 10/03/2015 Hepatitis C Hepatopulmonary syndrome (HCC) used oxygen 3 to 6 liters and off O2 since liver transplant Hypertension Marijuana use, continuous 12/28/2020 MRSA (methicillin resistant Staphylococcus aureus) 11/2011 New onset seizure (HCC) 10/05/2015 06/11/[address] Anurag Doyle:noted one seizure after transplant. No seizures since, off keppra.Initial EEG showed small amplitudes polyspikes overriding periodic patterns), later EEG became normal, brain MRI unremarkable. He has been off Keppra since March 2016. No further seizure. Non-ischemic cardiomyopathy (HCC) Osteoporosis Panic attacks Prostatitis 11/2011 Psoriasis PTSD (post-traumatic stress disorder) Sarcoidosis of the lungs Splenomegaly Thrombocytopenia (HCC) Pancytopenia resolved after liver transplant Unspecified hypothyroidism Hypothyroidism PAST SURGICAL HISTORY Procedure Laterality Date COLONOSCOPY FLX DX W/COLLJ SPEC WHEN PFRMD 10/14/13 Colonoscopy ESOPHAGOGASTRODUODENOSCOPY TRANSORAL DIAGNOSTIC 10/14/13 EGD ESOPHAGOGASTRODUODENOSCOPY TRANSORAL DIAGNOSTIC 01/31/2019 EGD INGUINAL HERNIA REPAIR HX 10/15/2016 LIVER BIOPSY NERVE ALTERATION 83? LEFT ELBOW ABOUT PAST SURGICAL HISTORY OF 83? Deviated septum PAST SURGICAL HISTORY OF Liver transplant : 09/2015 PAST SURGICAL HISTORY OF PFO repair 2016 PICC LINE INSERT/CONSULT 11/01/2015 PICC LINE INSERTION (PICC TEAM) ([place]) 11/22/2021 TONSILLECTOMY PRIMARY/SECONDARY <AGE 10 Tonsillectomy Social History Tobacco Use Smoking status: Former Packs/day: 1.00 Years: 23.00 Pack years: 23.00 Types: Cigarettes Start date: 09/14/1979 Quit date: 08/01/2013 Years since quittin.7 Smokeless tobacco: Never Vaping Use Vaping Use: Never used Substance Use Topics Alcohol use: No Alcohol/week: 0.0 standard drinks Comment: Quit 10/2011 Drug use: Yes Types: Marijuana Comment: now only marijuana to help with appetite and slee[ ACTIVE PROBLEM LIST Splenomegaly Bilateral Inguinal Hernia (Bih) Hcv (Hepatitis C Virus) Adjustment Disorder With Mixed Anxiety and Depressed Mood Pfo (Patent Foramen Ovale) Caries Sarcoidosis Chronic Hepatitis C Without Hepatic Coma (Hcc) Chronic Abdominal Pain Hypothyroidism S/P Liver Transplant (Hcc) Paroxysmal Atrial Fibrillation (Hcc) Neuromyopathy (Hcc) Need for Prophylactic Immunotherapy Dysuria Non-Ischemic Cardiomyopathy (Hcc) Essential Hypertension S/P Repair of Ventral Hernia Bph With Obstruction/Lower Urinary Tract Symptoms Dilated Bile Duct Gerd (Gastroesophageal Reflux Disease) Jarod (Acute Kidney Injury) (Hcc) Obesity, Class II, Bmi 35-39.9 Lung Nodule Mixed Hyperlipidemia Marijuana Use, Continuous Other Osteoporosis Without Current Pathological Fracture Urinary Retention Ptsd (Post-Traumatic Stress Disorder) Bph (Benign Prostatic Hyperplasia) Neck Pain Current Outpatient Medications Medication Sig Dispense Refill Cholecalciferol, Vitamin D3, 25 mcg (1,000 unit) cap Take 1 capsule by mouth once daily. 90 capsule3 docusate sodium (COLACE) 100 mg capsule Take 1 capsule by mouth twice daily. 60 capsule 11 simvastatin (ZOCOR) 40 mg tablet Take 1 tablet by mouth daily at bedtime. [address] (PROTONIX) 40 mg tablet Take 1 tablet by mouth daily before breakfast. Take on empty stomach, 1/2 hr before meal. 90 tablet 3 lisinopril (ZESTRIL, PRINIVIL) 5 mg tablet Take 1 tablet by mouth once daily. 90 tablet 3 metoprolol succinate ER (TOPROL XL) 25 mg 24 hr tablet Take 1 tablet by mouth once daily. 90 tablet3 alendronate (FOSAMAX) 70 mg tablet Take 1 tablet by mouth one time a week. Take with a full glass of water, on an empty stomach; do NOT lie down for 30minutes. On sundays 12 tablet 3 sulfamethoxazole-trimethoprim (BACTRIM DS,SEPTRA DS) 800-160 mg per tablet 1 tablet every Thursday,Thursday,Thursday. 36 tablet 3 sulfamethoxazole-trimethoprim (BACTRIM DS,SEPTRA DS) 800-160 mg per tablet Smz/Tmp Ds Active 1 TABLET January 24, 2016 11:18am tacrolimus IR (PROGRAF) 0.5 mg capsule Take 1 capsule (0.5 mg) by mouth twice daily. Take with 1mg capsule for total 1.5mg twice daily 60 capsule 11 tacrolimus IR (PROGRAF) 1 mg capsule Take 1 capsule (1mg) by mouth twice daily. Take in addition toone 0.5mg capsule for total dose of 1.5mg twice daily 60 capsule 11 Garlic 1,000 mg cap Take 1 capsule by mouth once daily. 90 capsule 3 ursodiol (ACTIGALL) 300 mg capsule Take 1 capsule by mouth three times daily. (Patient taking differently: Take 300 mg by mouth three times daily. Not sure if still taking) 90 capsule 11 Current Facility-Administered Medications Medication Dose Route Frequency Provider Last Rate Last Admin perflutren lipid microspheres 1.3 mL in NaCl (PF) 0.9% 10 mL injection (DEFINITY) INTRAVENOUS DIRECTED PRN Sujata Torres APRN.[place]N sodium chloride 0.9 % (flush) 10 mL (BD POSIFLUSH) 10 mL INTRAVENOUS DIRECTED PRN Sujata Torres, CRYPTANALYST.PAPER BAG MAKER BP CONTROLLED (<130/80) Never done SHINGRIX VACCINE(1 of 2) due on 09/01/2014 COVID-19 VACCINE(3 - Pfizer risk series) due on 04/10/2022 EXAM: BP 130/78 Pulse 61 Resp 16 Wt 68.9 kg (152 lb) SpO2 99% BMI 23.81 kg/m Pleasant well-appearing adult male in no acute distress. Alert and oriented all spheres. Mood: Anxious, mildly agitated, dysthymic Appearance: well dressed well groomed, cooperative and pleasant Behavior: good eye contact Speech: fluent and coherent Mood: euthymic Affect: appropriate Perceptions: none Thought process: goal directed Thought Content: normal Intelligence level: normal Insight: Poor Judgment: No expressed suicidal or homicidal ideations Skin warm, dry, pink to lips and nailbeds. Normal turgor. Respirations regular and unlabored. HEENT: NCAT. No scleral icterus or conjunctival injection. TM's clear. Nose and oropharynx free from injection or lesion. Oral membranes moist and pink. No cervical lymph nodes. Thyroid non-tender, no masses, or enlargement. Carotids pulses 2+/4+ without bruits. No JVD with HOB at 30 degrees. Chest is normal shape. Lungs are clear to all jennings with good air exchange through out. HRRR without murmur or gallop. No lifts, heaves, or rubs. Neck is supple, full range of motion, does complain of tenderness bilateral posterior muscles and midline over C6 and C7. Also tender trigger points in the upper and lower back. Patient is able to forward flex to ankles. No gross neurologic deficits. Extrem: no clubbing or cyanosis. Edema: none. Extremities are warm and pink with prompt capillary refill. ASSESSMENT/PLAN: 1. Chronic bilateral thoracic back pain - ICD9: 724.1, 338.29, ICD10: M54.6, G89.29 (primary diagnosis) Chronic low back pain - Ice for localized tenderness - Patient given instructions intermittent rest and back care exercise program - CONSULT TO PHYSICAL THERAPY 2. Chronic bilateral low back pain without sciatica - ICD9: 724.2, 338.29, ICD10: M54.50, G89.29 - CONSULT TO PHYSICAL THERAPY 3. Chronic neck pain - ICD9: 723.1, 338.29, ICD10: M54.2, G89.29 - CONSULT TO PHYSICAL THERAPY 4. Adjustment disorder with mixed anxiety and depressed mood - ICD9: 309.28, ICD10: F43.23 Resume sertraline 50 mg daily which seems to have helped in the past per his report. May cut back to 25 mg if he is having any bloating symptoms. Reviewed medication administration, box warnings, side effects, need to wean on discontinuation. Patient is asking for psychiatric referral - CONSULT TO PSYCHIATRY 35-minute visit. Carina Hirsch PA-C documented in this encounterUniversity Hospitals Tripoint Medical Center08-15-2022 Miscellaneous Notes* Telephone Encounter - Catrina Monroe LPN - 04/28/2022 6:24 PM EDT Patient notified and verbalizes understanding. * Telephone Encounter - Giancarlo Kendall MD - 04/28/2022 5:31 PM EDT I would feel better if he was not exposed to the dust * Telephone Encounter - Ashly De Leon RN - 04/28/2022 4:30 PM EDT Patient calling to ask provider a question. 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 He states when he comes home he is full of metal dust-it's on him, his clothes, etc. He states he is unable to wear a mask because he wears glasses and his glasses will fog up. He is asking if Dr. Kendall feels this is a safe job for him to be working at with his history and all? Please advise. Thank you. documented in this encounterUniversity Hospitals Tripoint Medical Center08-10-2022 Miscellaneous Notes* Telephone Encounter - Nadiya Guadalupe RN - 04/23/2022 12:37 PM EDT Pt reports provider told him he was taking too much D3 asking if provider would put in D3 1000 international unit(s) . Pt states he pays for them it just makes it easier if they just bill them and hecan pick them up with his other pills. Patient has been identified by name and date of : Yes Patient phones for refill(s): Requested Prescriptions Pending Prescriptions Disp Refills Cholecalciferol, Vitamin D3, 25 mcg (1,000 unit) cap 90 capsule 3 Sig: Take 1 capsule by mouth once daily. Date of last office visit in primary care: 03/11/22 Future visit: 06/11/22 Last 2 Encounter Wt Readings: Date: Wt: 03/11/2022 63.5 kg (140 lb) 02/06/2022 65.8 kg (145 lb) Previous labs/tests for medication: Blood Pressure: BUN (mg/dL) Date Value 04/18/2022 16 08/16/2021 18 Sodium (mmol/L) Date Value 04/18/2022 137 08/16/2021 140 Last 1 Encounter BP Readings: Date: BP: 03/11/2022 132/80 Liver Function: ALT (U/L) Date Value 04/18/2022 32 08/16/2021 14 AST (U/L) Date Value 04/18/2022 26 08/16/2021 17 Please advise. Thank you. Nadiya Guadalupe RN documented in this encounterUniversity Hospitals Tripoint Medical Center07-20-2022 Miscellaneous Notes* Telephone Encounter - Betsey Pacheco MA - 04/02/2022 12:41 PM EDT Patient notified. Betsey Pacheco MA * Telephone Encounter - Giancarlo Kendall MD - 04/02/2022 12:23 PM EDT He just had lipids done in December. The marijuana stays in his system longer than a week. The labs he needs are per transplant team * Telephone Encounter - Dorothy Trinidad RN - 04/02/2022 10:50 AM EDT Patient calls and states that he has been trying to get a job. Patient states that he took a urine drug test and failed for marijuana. Patient states that the last time he smoked was last week. Patient is confused as to why he tested positive. Patient also states that he wants to come in and get labs done today. Patient asking if there are any other labs that provider wants him to get done. Patient is concerned about checking cholesterol. Please review and advise, Dorothy Trinidad RN documented in this encounterUniversity Hospitals Tripoint Medical Center07-05-2022 Miscellaneous Notes* Telephone Encounter - Graciela Gilberto - 03/18/2022 5:20 PM EDT PT called regarding needing to have printing directions (even with pictures of possible) to be ableto help remember the exercises for that he has been given. He would like upper and lower body exercise if that is possible. They can be mailed to him. He feels he is not going to be able to schedule any further visits right now as he is starting a new job soon working 12 hour days. documented in this encounterUniversity Hospitals Tripoint Medical Center06-28-2022 Instructions* Patient Instructions* Giancarlo Kendall MD - 03/11/2022 2:27 PM EDT Call with update in one month documented in this encounterUniversity Hospitals Tripoint Medical Center06-28-2022 History of Present illness Narrative* Giancarlo Kendall MD - 03/11/2022 2:11 PM EDT Patient presents with: Follow Up: 4 week HPI: Patient presents today for office visit for follow up. Just started 5 days ago on wellbutrin. Has been back to see psychology. Wanted to have stool softeners called in. Has occasional constipation. Just ordered therapy for neck and thoracic pain but has not gone yet. Will be changing jobs. Having increased pain in entire back. Wants to do therapy for the entire back. MEDICATIONS: Current Outpatient Medications Medication Sig buPROPion XL (WELLBUTRIN XL) 150 mg 24 hr tablet Take 1 tablet by mouth once daily. simvastatin (ZOCOR) 40 mg tablet Take 1 tablet by mouth daily at bedtime. pantoprazole DR (PROTONIX) 40 mg tablet Take 1 tablet by mouth daily before breakfast. Take on empty stomach, 1/2 hr before meal. lisinopril (ZESTRIL, PRINIVIL) 5 mg tablet Take 1 tablet by mouth once daily. metoprolol succinate ER (TOPROL XL) 25 mg 24 hr tablet Take 1 tablet by mouth once daily. alendronate (FOSAMAX) 70 mg tablet Take 1 tablet by mouth one time a week. Take with a full glass of water, on an empty stomach; do NOT lie down for 30minutes. On sundays sulfamethoxazole-trimethoprim (BACTRIM DS,SEPTRA DS) 800-160 mg per tablet 1 tablet every Thursday,Thursday,Thursday. sulfamethoxazole-trimethoprim (BACTRIM DS,SEPTRA DS) 800-160 mg per tablet Smz/Tmp Ds Active 1 TABLET January 24, 2016 11:18am tacrolimus IR (PROGRAF) 0.5 mg capsule Take 1 capsule (0.5 mg) by mouth twice daily. Take with 1mg capsule for total 1.5mg twice daily tacrolimus IR (PROGRAF) 1 mg capsule Take 1 capsule (1mg) by mouth twice daily. Take in addition toone 0.5mg capsule for total dose of 1.5mg twice daily cholecalciferol (VITAMIN D-3) 5,000 unit tab Take 1 tablet by mouth once daily. (Patient taking differently: Take 2,500 Units by mouth once daily. ) Garlic 1,000 mg cap Take 1 capsule by mouth once daily. ursodiol (ACTIGALL) 300 mg capsule Take 1 capsule by mouth three times daily. (Patient taking differently: Take 300 mg by mouth three times daily. Not sure if still taking ) Current Facility-Administered Medications Medication Dose Route Frequency perflutren lipid microspheres 1.3 mL in NaCl (PF) 0.9% 10 mL injection (DEFINITY) INTRAVENOUS DIRECTED PRN sodium chloride 0.9 % (flush) 10 mL (BD POSIFLUSH) 10 mL INTRAVENOUS DIRECTED PRN ALLERGIES: ALLERGIES Allergen Reactions Acetaminophen Hives Hydrocodone Hives Morphine Hives, Other: See Comments Latex Rash Ketorolac Unknown Pt states allergy, told not to take with liver transplant Vancomycin (Bulk) Rash, Itching Vicodin [Hydrocodon* Itching PAST MEDICAL HISTORY Diagnosis Date BPH with obstruction/lower urinary tract symptoms Cirrhosis (HCC) ETOH abuse stopped etoh in 09/27 H/O liver transplant (HCC) 10/03/2015 Hepatitis C Hepatopulmonary syndrome (HCC) used oxygen 3 to 6 liters and off O2 since liver transplant Hypertension Marijuana use, continuous 12/28/2020 MRSA (methicillin resistant Staphylococcus aureus) 11/2011 New onset seizure (HCC) 10/05/2015 06/11/[address] Anurag Doyle:noted one seizure after transplant. No seizures since, off keppra.Initial EEG showed small amplitudes polyspikes overriding periodic patterns), later EEG became normal, brain MRI unremarkable. He has been off Keppra since March 2016. No further seizure. Non-ischemic cardiomyopathy (HCC) Osteoporosis Panic attacks Prostatitis 11/2011 Psoriasis PTSD (post-traumatic stress disorder) Sarcoidosis of the lungs Splenomegaly Thrombocytopenia (HCC) Pancytopenia resolved after liver transplant Unspecified hypothyroidism Hypothyroidism PAST SURGICAL HISTORY Procedure Laterality Date COLONOSCOPY FLX DX W/COLLJ SPEC WHEN PFRMD 10/14/13 Colonoscopy ESOPHAGOGASTRODUODENOSCOPY TRANSORAL DIAGNOSTIC 10/14/13 EGD ESOPHAGOGASTRODUODENOSCOPY TRANSORAL DIAGNOSTIC 01/31/2019 EGD INGUINAL HERNIA REPAIR HX 10/15/2016 LIVER BIOPSY NERVE ALTERATION 83? LEFT ELBOW ABOUT PAST SURGICAL HISTORY OF 83? Deviated septum PAST SURGICAL HISTORY OF Liver transplant : 09/2015 PAST SURGICAL HISTORY OF PFO repair 2016 PICC LINE INSERT/CONSULT 11/01/2015 PICC LINE INSERTION (PICC TEAM) ([place]) 11/22/2021 TONSILLECTOMY PRIMARY/SECONDARY <AGE 10 Tonsillectomy FAMILY HISTORY Problem Relation Age of Onset Arthritis Brother Back issues COPD Mother Alzheimer's Disease Father Diabetes Maternal Grandmother Diabetes Paternal Grandfather Amblyopia Daughter Social History Tobacco Use Smoking status: Former Smoker Packs/day: 1.00 Years: 23.00 Pack years: 23.00 Types: Cigarettes Start date: 09/14/1979 Quit date: 08/01/2013 Years since quittin.6 Smokeless tobacco: Never Used Vaping Use Vaping Use: Never used Substance Use Topics Alcohol use: No Alcohol/week: 0.0 standard drinks Comment: Quit 10/2011 Drug use: Yes Types: Marijuana Comment: now only marijuana to help with appetite and slee[ Reviewed current medications, allergies, past medical history, surgical history, family history andsocial history today. REVIEW OF SYSTEMS All other reviewed and negative other than HPI. VITALS: BP 132/80 Pulse 60 Resp 16 Wt 63.5 kg (140 lb) SpO2 99% BMI 21.93 kg/m Last 4 Encounter Wt Readings: Date: Wt: 03/11/2022 63.5 kg (140 lb) 02/06/2022 65.8 kg (145 lb) 01/08/2022 70.3 kg (155 lb) 01/06/2022 69.1 kg (152 lb 6.4 oz) PHYSICAL EXAMINATION: General appearance: Well appearing, alert, in no acute distress, well-hydrated, well nourished. Skin: Skin color, texture, turgor normal, no suspicious rashes or lesions Head: Normocephalic, no masses, lesions, tenderness or abnormalities Lungs: Lungs clear to auscultation. No wheezing, rhonchi, rales Heart: RRR without murmur, gallop, or rubs. No ectopy Abdomen: Normal abdominal exam, Abdomen soft, non-tender. Bowel sounds normal. No masses, organomegaly Extremities: No deformities, edema, skin discoloration, clubbing or cyanosis. Good capillary refill. Musculoskeletal: No joint swelling, deformity, or tenderness Peripheral pulses: Normal Neuro: Negative. ASSESSMENT/PLAN: 1. Upper back pain - ICD9: 724.5, ICD10: M54.9 (primary diagnosis) - increase therapy - CONSULT TO PHYSICAL THERAPY 2. Lumbar back pain - ICD9: 724.2, ICD10: M54.50 - CONSULT TO PHYSICAL THERAPY 3. Chronic constipation - ICD9: 564.00, ICD10: K59.09 - readd meds. - DOCUSATE SODIUM 100 MG CAPSULE 4. Essential hypertension - ICD9: 401.9, ICD10: I10 - good control - Continue current medication(s) - Goal of BP <130/80 5. Anxiety with depression - ICD9: 300.4, ICD10: F41.8 Continue meds. Giancarlo Kendall RTO in three months and prn. documented in [facility] History of Past illness Narrative* Problem Noted Date Resolved Date Neck pain 03/11/2022 07/21/2022 Hilar adenopathy 07/09/2018 08/19/2018 Last Assessment & Plan: Assessment: CT A/P on Admission shows Significant subcarinal and bilateral hilar adenopathy on the lower images through the chest. Lymphoproliferative disease suspected He does have a hx of sarcoid But no recent CT chest/CXR to compare. CT chest shows SPLENOMEGALY AND NUMEROUS ENLARGED MEDIASTINAL AND BILATERAL HILAR LYMPH NODES, INCREASED IN SIZE SINCE 2016. THE DIFFERENTIAL DIAGNOSIS INCLUDES SARCOIDOSIS AND LYMPHOPROLIFERATIVE DISEASE. PLAN: -Transfer to [facility] for further evaluation by oncology per ID recommedation. Nausea & vomiting 07/09/2018 07/28/2018 Last Assessment & Plan: Assessment: Patient notes off and on nausea for one month. Also notes worsening control of his reflux symptoms. CTA/P shows significant subcarinal and bilateral hilar adenopathy and new subtle intrahepatic biliary dilatation and common duct dilatation . Obstructing lesion must be excluded, however.Splenic enlargement PLAN: -Increase protonix to 40mg bid -Zofran PRN for N/V -GI consult pending. Cellulitis 07/09/2018 07/13/2018 Abdominal wall cellulitis 12/01/20172021 Last Assessment & Plan: Assessment: Second Episode this year . Likely due to his constant picking of the skin of his abdomen. He is HDS, no leucocytosis,crp 2.6,ESR 2,lactate normal CTA/P shows no abscess nor cellulitis . PLAN: Continue ancef started in the ER. Continue bactrim as scheduled for prophylaxis - due to hx of liver transplant PRN morphine for pain. ID consult (because of his immunocompromised state - hx of liver transplant/ommunesuppresants) Wound care consult (re:open areas on his abdomen due to his scratching) F/up on blood Culture Ventral hernia without obstruction or gangrene 0 03/24/2017 04/22/2017 Lower abdominal pain 07/23/2016 04/22/2017 Dysuria 03/26/2016 07/21/2022 Opioid withdrawal 11/09/2015 04/22/2017 Overview: Thursday with opioid withdrawal after attempted discontinuation of fentanyl Resolution of symptoms after re-starting fentanyl -- Continue fentanyl patch with prn IVP fentanyl for breakthrough pain -- Drip stopped 3/2 Respiratory failure, post-operative 10/22/2015 04/22/2017 Overview: Pt intubated for OLT on 10/03/15, remained intubated d/t severe hypoxia (see hepato pulmonary syndrome) 11/01 s/p tracheostomy Very weak and debilitated, profound ICU neuromyopathy Currently improved, toleratingTC, passy etta valve capped -- continue trach collar, PMV Acute pneumothorax 10/17/2015 04/22/2017 Prerenal azotemia 10/17/2015 10/24/2015 Overview: Bun/ Creat ratio now trending down. Hypernatremia resolved -- trend Renal indices -- lasix 20 mg q8 Acute pulmonary embolism 10/17/2015 017 Spontaneous pneumothorax 10/16/2015 017 Overview: Pneumothorax discovered on CT chest 10/15 in setting of high PEEP requirements s/p chest tube placements x2 Last CT removed 11/02 CXR with small persistent Rt. Apical pneumothorax- not appeciated on today's CXR --continue to follow daily CXRs Pneumonia, organism unspecified(486) 10/16/2015 11/02/2015 Overview: CT of chest 10/15 shows RLL consolidation suspicious for pneumonia. Completed course of vanco and meropenem continuing micfungin. Sputum culture from 10/09 shows normal respiratory erum. legionella urinary antigen negative --ID following Sepsis due to other etiology 10/15/201505/2017 Overview: Has completed empiric courses of antibiotics for persistent low grade fevers and acute decompensation No obvious source of infection identified per extensive ID workup Vanco d/c 10/25, Meropenem d/c 10/26 11/04 Acute decompensation (fevers 11/05) empiric pip-tazo, vanc, micafungin added--> off since 11/11 (cultures negative) CT chest/ab/pelvis (11/08) with no evidence of infective process -- continue to monitor off ATB Postoperative shock 10/09/2015 04/22/2017 Overview: Shock, hypotension, fevers with increasing leukocytosis in setting of liver transplant, hepatopulmonary syndrome, ARDS, hypoxia. Profound hypoxia requiring nitric oxide therapy. Required low dose levo for BP support, now off. Concern for sepsis, blood cultures negative to date, vanco and zosyn started empirically 10/08. Procalcitonin 1.06. Lacate 1.8 -- Follow cultures -- continue vanco and zosyn -- levo for BP support (avoid fluid boluses if hypotensive) Electrolyte and fluid disorder 10/07/2015 0 04/22/2017 Overview: Hypomagnesemia repleted, hyperphos -- monitor and replete lytes daily -- increase daily PO mag oxide to 800 mg TID New onset seizure 10/05/2015 11/22/2019 Overview: Seizure activity 10/05, BEM supported the dx of cortical dysfunction in the left hemisphere with potential epileptogenicity in the left fronto-central region CT head negative for acute process, neurology consulted, loaded with Keppra Currently alert, follows commands -- weaned to Keppra 500mg bid -- neurology recommending follow up with epilepsy as outpatient ARDS (adult respiratory distress syndrome) 10/0504/22/2017 Overview: Hx of hepatopulmonary syndrome, pulmonary sarcoidosis requiring home O2 6-10 liters Pulmonary HTN with ~45% shunt. Pre-op PaO2 ~55 on RA CXR now with bilateral fluffy infiltrates / ARDS w/ pulmonary edema Desaturates with movement, turning, suctioning. Space = 60% today, with compliance ~45 -- maintain aggressive vent support (100% FiO2, wean PEEP is able as higher PEEP to increase shunt) -- lung protective strategies - Vt 6ml/kg ideal body weight (~350ml) -- trach on hold while unstable -- lasix TID -- Continue Nitric oxide -- increased I:E ratio -- avoid fluid boluses for hypotension - use pressors if needed -- sputum sent for culture Postoperative anemia due to acute blood loss 04/22/2017 Overview: S/P liver transplant with EBL 17 L c/b thrombocytopenia, coagulopahty and OP bleeding requiring intra-op nasal and pharyngeal packing Last transfused 10/08 2U PRBCs. 10/10: ENT removed nasal merocel. Clots in both nasopharyxes. No reinsertion of nasal tubes. -- monitor CBC and coags -- transfuse as required Agitation requiring sedation protocol 10/05/2015 04/22/2017 Overview: Required prolonged neuromuscular blockade with deep sedation secondary to increased WOB, breath stacking and hypoxia After discontinuation, he has had difficultly controlling agitation, likely opioid withdrawl. Had required precedex, fentanyl patch, prn haldol, seroquel Currently on seroquel, fentanyl patch Has been awake and alert, very cooperative -- continue on decreased TID seroquel dosing of 25mg TID and 150 mg qHS -- continue with fentanyl patch Acute post-operative pain 10/05/20152016 Overview: Was on prolonged fentanyl infusion d/t vent asynchrony, pain from liver tx Now transitioned to patch, infusion stopped 11/13 -- continue fentanyl patch (100mcg) Renal insufficiency 10/05/2015 10/08/2015 Overview: Secondary to hypotension Baseline Scr 0.66, now down to 0.83 Making good UO -- monitor renal indices Stress hyperglycemia 10/05/2015 04/22/2017 Overview: -- Adequate glycemic control with SSI Moderate protein-calorie malnutrition 10/05/2015 04/22/2017 Overview: Tolerating goal tube feeds Osmolite 1.2 @ 70 Prealbumin 26, transferrin 185 -- continue TF with fiber and beneprotien and full liquid diet -- nutrition following Abdominal distension 09/12/2015 04/22/2017 Overview: - concerning given weight gain of 30 lb from 09/04 - CT abdomen on last admission showed tissue edema> ascites, concern for third spacing in the abdominal wall tissue - no evidence of active infection, however, currently pancytopenia - was taking Lasix 20 mg PO every other day and spironolactone 50 mg PO daily - Liver vascular U/S demonstrates patent vasculature Plan - diuresis with Lasix 40 mg PO BID and spironolactone 100 mg PO daily - paracentesis as needed for respiratory function Liver transplant candidate 08/17/201504/22 Pain disorder with psychological factors 015 12/23/2021 Hyperammonemia 07/20/2015 04/22/2017 SUMMARY 06/14/2015 09/12/2015 Overview: Mr. 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 SOB (shortness of breath) 06/14/20152016 Overview: Started after dry run Possibly irritated by catheter? Systolic murmur also heard Chest x-ray and CT PE negative Currently at baseline New valvular lesion vs clot? -Echocardiogram -Doppler study -Observe for now Hepatic cirrhosis 06/14/2015 04/22/2017 Overview: #Cirrhosis -Continue lactulose, rifaximin -Continue aldactone Infection of other external stoma of urinary tra ct 05/17/2015 04/22/2017 UTI (lower urinary tract infection) 04/08/2015 04/22/2017 Overview: Was complaining of dysuria. UA positive with leukoesterase and Was started of ceftriaxone at OSH. Received 2 dosages here yesterday and one today. Will finish treatment for complicated UTI at home with cipro 500BID Hepatic encephalopathy 04/08/2015 7 Overview: On lactulose zinc Rifaximin Fever, low grade 11/03/2014 04/22/2017 Overview: Low grade fever on presentation UA clean Plan - Blood cx ngtd - afebrile since SUMMARY 08/31/2014 07/24/2016 Overview: The patient is a 50 yo male with a past medical history of HCV/ETOH Liver Cirrhosis c/b hepatopulmonary syndrome, hypersplenism, HE, Grade I EV, pulmonary sarcoidosis who presents with acute weight gain, abdominal distension, and SOB Fever and chills 08/31/2014 04/22/2017 Overview: Tmax 38.7 this AM; pt reports recent history of tooth extraction One time fever yesterday Received 2 time cefazolin after PFO closure. Plan: -UA, BCxx2 - NG till now -will hold off on abx for now and observe Retained dental root 08/15/2014 12/23/2021 Hepatopulmonary syndrome 03/12/2014 018 Overview: History of hepatopulmonary syndrome with ~45.2% shunt, pulmonary sarcoidosis requiring home O2 6-10 liters and mild pulmonary HTN Preop PaO2 ~55 on RA Profound hypoxia postoperatively requiring max vent support with high PEEP, heavy sedation/paralytics, flolan, nitric oxide (off since 10/26) Course c/b Right lung Pneumothorax, resp failure requiring trach 11/01 Decompensation 11/04 secondary to narcotic withdrawal +/- sepsis-->Drastically improved with fentanyl infusion, ATB. Updated echo 11/15 with EF 55%, normal RV Currently doing great, on continuous trach collar with passy etta valve, and diet -- Goal sats 85% -- Continue TC, PMV, OOB Bicytopenia 03/12/2014 04/22/2017 Overview: He has plat count of 20k and WCC of around 1000 His neutropenia is likely 2/2 to INF His thrombocytopenia is likley 2/2 to his cirrhosis Plan: Watch, transfuse plats if <10k or bleeding Pancytopenia 03/11/2014 03/12/2014 Hypoxemia 03/11/2014 10/15/2015 Overview: Due to underlying HPS Now on 100% Fio2 with last PaO2 60, Nitric oxide started 10/08, at 40 PPM. O2 sats maintaining in 80s CTS consulted for ECMO evaluation -- Given profound thrombocytopenia and grave condition ECMO not recommended -- Continue nitric oxide -- lung protective ventilation -- increased I:E ratio (at 2.4:1), paralyze with rocuronium if needed -- goal of O2 sats in 70s permissible COPD (chronic obstructive pulmonary disease) 03/12/2014 Coagulopathy 03/11/2014 04/22/2017 Syncope 01/03/2014 04/22/2017 Epididymitis 11/24/2013 04/22/2017 Testalgia 11/24/2013 04/22/2017 Thrombocytopenia 08/20/2009 04/22/2017 Overview: Platelets 96k today, received platelets 10/11 prior to liver biopsy. no obvious bleeding -- monitor CBC, coags -- transfuse as required -- monitor for bleeding -- transfuse plts prior to invasive procedures Hepatitis C 08/20/2009 11/03/2014 Cirrhosis 04/22/2017 Overview: Secondary to alcohol use and HCV complicated by ascites, PSE (on lactulose, rifaximin) and hepatopulmonary syndrome on home O2 s/p OLT on 10/03/15 Concern for rejection (humoral), now s/p thymo, IVIG, plasmapheresis 10/15 and 10/16 completed -hydrocortisone (switched from prednisone) now tapering down - MMF - FK documented as of this encounter (statuses as of 07/21/2022) [facility] History of Past illness Narrative* Problem Noted Date Resolved Date Neck pain 03/11/2022 07/21/2022 Hilar adenopathy 07/09/2018 08/19/2018 Last Assessment & Plan: Assessment: CT A/P on Admission shows Significant subcarinal and bilateral hilar adenopathy on the lower images through the chest. Lymphoproliferative disease suspected He does have a hx of sarcoid But no recent CT chest/CXR to compare. CT chest shows SPLENOMEGALY AND NUMEROUS ENLARGED MEDIASTINAL AND BILATERAL HILAR LYMPH NODES, INCREASED IN SIZE SINCE 2016. THE DIFFERENTIAL DIAGNOSIS INCLUDES SARCOIDOSIS AND LYMPHOPROLIFERATIVE DISEASE. PLAN: -Transfer to [facility] for further evaluation by oncology per ID recommedation. Nausea & vomiting 07/09/2018 07/28/2018 Last Assessment & Plan: Assessment: Patient notes off and on nausea for one month. Also notes worsening control of his reflux symptoms. CTA/P shows significant subcarinal and bilateral hilar adenopathy and new subtle intrahepatic biliary dilatation and common duct dilatation . Obstructing lesion must be excluded, however.Splenic enlargement PLAN: -Increase protonix to 40mg bid -Zofran PRN for N/V -GI consult pending. Cellulitis 07/09/2018 07/13/2018 Abdominal wall cellulitis 12/01/20172021 Last Assessment & Plan: Assessment: Second Episode this year . Likely due to his constant picking of the skin of his abdomen. He is HDS, no leucocytosis,crp 2.6,ESR 2,lactate normal CTA/P shows no abscess nor cellulitis . PLAN: Continue ancef started in the ER. Continue bactrim as scheduled for prophylaxis - due to hx of liver transplant PRN morphine for pain. ID consult (because of his immunocompromised state - hx of liver transplant/ommunesuppresants) Wound care consult (re:open areas on his abdomen due to his scratching) F/up on blood Culture Ventral hernia without obstruction or gangrene 0 03/24/2017 04/22/2017 Lower abdominal pain 07/23/2016 04/22/2017 Dysuria 03/26/2016 07/21/2022 Opioid withdrawal 11/09/2015 04/22/2017 Overview: Thursday with opioid withdrawal after attempted discontinuation of fentanyl Resolution of symptoms after re-starting fentanyl -- Continue fentanyl patch with prn IVP fentanyl for breakthrough pain -- Drip stopped 3/2 Respiratory failure, post-operative 10/22/2015 04/22/2017 Overview: Pt intubated for OLT on 10/03/15, remained intubated d/t severe hypoxia (see hepato pulmonary syndrome) 11/01 s/p tracheostomy Very weak and debilitated, profound ICU neuromyopathy Currently improved, toleratingTC, passy etta valve capped -- continue trach collar, PMV Acute pneumothorax 10/17/2015 04/22/2017 Prerenal azotemia 10/17/2015 10/24/2015 Overview: Bun/ Creat ratio now trending down. Hypernatremia resolved -- trend Renal indices -- lasix 20 mg q8 Acute pulmonary embolism 10/17/2015 017 Spontaneous pneumothorax 10/16/2015 017 Overview: Pneumothorax discovered on CT chest 10/15 in setting of high PEEP requirements s/p chest tube placements x2 Last CT removed 11/02 CXR with small persistent Rt. Apical pneumothorax- not appeciated on today's CXR --continue to follow daily CXRs Pneumonia, organism unspecified(486) 10/16/2015 11/02/2015 Overview: CT of chest 10/15 shows RLL consolidation suspicious for pneumonia. Completed course of vanco and meropenem continuing micfungin. Sputum culture from 10/09 shows normal respiratory erum. legionella urinary antigen negative --ID following Sepsis due to other etiology 10/15/201505/2017 Overview: Has completed empiric courses of antibiotics for persistent low grade fevers and acute decompensation No obvious source of infection identified per extensive ID workup Vanco d/c 10/25, Meropenem d/c 10/26 11/04 Acute decompensation (fevers 11/05) empiric pip-tazo, vanc, micafungin added--> off since 11/11 (cultures negative) CT chest/ab/pelvis (11/08) with no evidence of infective process -- continue to monitor off ATB Postoperative shock 10/09/2015 04/22/2017 Overview: Shock, hypotension, fevers with increasing leukocytosis in setting of liver transplant, hepatopulmonary syndrome, ARDS, hypoxia. Profound hypoxia requiring nitric oxide therapy. Required low dose levo for BP support, now off. Concern for sepsis, blood cultures negative to date, vanco and zosyn started empirically 10/08. Procalcitonin 1.06. Lacate 1.8 -- Follow cultures -- continue vanco and zosyn -- levo for BP support (avoid fluid boluses if hypotensive) Electrolyte and fluid disorder 10/07/2015 0 04/22/2017 Overview: Hypomagnesemia repleted, hyperphos -- monitor and replete lytes daily -- increase daily PO mag oxide to 800 mg TID New onset seizure 10/05/2015 11/22/2019 Overview: Seizure activity 10/05, BEM supported the dx of cortical dysfunction in the left hemisphere with potential epileptogenicity in the left fronto-central region CT head negative for acute process, neurology consulted, loaded with Keppra Currently alert, follows commands -- weaned to Keppra 500mg bid -- neurology recommending follow up with epilepsy as outpatient ARDS (adult respiratory distress syndrome) 10/0504/22/2017 Overview: Hx of hepatopulmonary syndrome, pulmonary sarcoidosis requiring home O2 6-10 liters Pulmonary HTN with ~45% shunt. Pre-op PaO2 ~55 on RA CXR now with bilateral fluffy infiltrates / ARDS w/ pulmonary edema Desaturates with movement, turning, suctioning. Space = 60% today, with compliance ~45 -- maintain aggressive vent support (100% FiO2, wean PEEP is able as higher PEEP to increase shunt) -- lung protective strategies - Vt 6ml/kg ideal body weight (~350ml) -- trach on hold while unstable -- lasix TID -- Continue Nitric oxide -- increased I:E ratio -- avoid fluid boluses for hypotension - use pressors if needed -- sputum sent for culture Postoperative anemia due to acute blood loss 04/22/2017 Overview: S/P liver transplant with EBL 17 L c/b thrombocytopenia, coagulopahty and OP bleeding requiring intra-op nasal and pharyngeal packing Last transfused 10/08 2U PRBCs. 10/10: ENT removed nasal merocel. Clots in both nasopharyxes. No reinsertion of nasal tubes. -- monitor CBC and coags -- transfuse as required Agitation requiring sedation protocol 10/05/2015 04/22/2017 Overview: Required prolonged neuromuscular blockade with deep sedation secondary to increased WOB, breath stacking and hypoxia After discontinuation, he has had difficultly controlling agitation, likely opioid withdrawl. Had required precedex, fentanyl patch, prn haldol, seroquel Currently on seroquel, fentanyl patch Has been awake and alert, very cooperative -- continue on decreased TID seroquel dosing of 25mg TID and 150 mg qHS -- continue with fentanyl patch Acute post-operative pain 10/05/20152016 Overview: Was on prolonged fentanyl infusion d/t vent asynchrony, pain from liver tx Now transitioned to patch, infusion stopped 11/13 -- continue fentanyl patch (100mcg) Renal insufficiency 10/05/2015 10/08/2015 Overview: Secondary to hypotension Baseline Scr 0.66, now down to 0.83 Making good UO -- monitor renal indices Stress hyperglycemia 10/05/2015 04/22/2017 Overview: -- Adequate glycemic control with SSI Moderate protein-calorie malnutrition 10/05/2015 04/22/2017 Overview: Tolerating goal tube feeds Osmolite 1.2 @ 70 Prealbumin 26, transferrin 185 -- continue TF with fiber and beneprotien and full liquid diet -- nutrition following Abdominal distension 09/12/2015 04/22/2017 Overview: - concerning given weight gain of 30 lb from 09/04 - CT abdomen on last admission showed tissue edema> ascites, concern for third spacing in the abdominal wall tissue - no evidence of active infection, however, currently pancytopenia - was taking Lasix 20 mg PO every other day and spironolactone 50 mg PO daily - Liver vascular U/S demonstrates patent vasculature Plan - diuresis with Lasix 40 mg PO BID and spironolactone 100 mg PO daily - paracentesis as needed for respiratory function Liver transplant candidate 08/17/201504/22 Pain disorder with psychological factors 015 12/23/2021 Hyperammonemia 07/20/2015 04/22/2017 SUMMARY 06/14/2015 09/12/2015 Overview: Mr. 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 SOB (shortness of breath) 06/14/20152016 Overview: Started after dry run Possibly irritated by catheter? Systolic murmur also heard Chest x-ray and CT PE negative Currently at baseline New valvular lesion vs clot? -Echocardiogram -Doppler study -Observe for now Hepatic cirrhosis 06/14/2015 04/22/2017 Overview: #Cirrhosis -Continue lactulose, rifaximin -Continue aldactone Infection of other external stoma of urinary tra ct 05/17/2015 04/22/2017 UTI (lower urinary tract infection) 04/08/2015 04/22/2017 Overview: Was complaining of dysuria. UA positive with leukoesterase and Was started of ceftriaxone at OSH. Received 2 dosages here yesterday and one today. Will finish treatment for complicated UTI at home with cipro [id number] Hepatic encephalopathy 04/08/2015 7 Overview: On lactulose zinc Rifaximin Fever, low grade 11/03/2014 04/22/2017 Overview: Low grade fever on presentation UA clean Plan - Blood cx ngtd - afebrile since SUMMARY 08/31/2014 07/24/2016 Overview: The patient is a 50 yo male with a past medical history of HCV/ETOH Liver Cirrhosis c/b hepatopulmonary syndrome, hypersplenism, HE, Grade I EV, pulmonary sarcoidosis who presents with acute weight gain, abdominal distension, and SOB Fever and chills 08/31/2014 04/22/2017 Overview: Tmax 38.7 this AM; pt reports recent history of tooth extraction One time fever yesterday Received 2 time cefazolin after PFO closure. Plan: -UA, BCxx2 - NG till now -will hold off on abx for now and observe Retained dental root 08/15/2014 12/23/2021 Hepatopulmonary syndrome 03/12/2014 018 Overview: History of hepatopulmonary syndrome with ~45.2% shunt, pulmonary sarcoidosis requiring home O2 6-10 liters and mild pulmonary HTN Preop PaO2 ~55 on RA Profound hypoxia postoperatively requiring max vent support with high PEEP, heavy sedation/paralytics, flolan, nitric oxide (off since 10/26) Course c/b Right lung Pneumothorax, resp failure requiring trach 11/01 Decompensation 11/04 secondary to narcotic withdrawal +/- sepsis-->Drastically improved with fentanyl infusion, ATB. Updated echo 11/15 with EF 55%, normal RV Currently doing great, on continuous trach collar with passy etta valve, and diet -- Goal sats 85% -- Continue TC, PMV, OOB Bicytopenia 03/12/2014 04/22/2017 Overview: He has plat count of 20k and WCC of around 1000 His neutropenia is likely 2/2 to INF His thrombocytopenia is likley 2/2 to his cirrhosis Plan: Watch, transfuse plats if <10k or bleeding Pancytopenia 03/11/2014 03/12/2014 Hypoxemia 03/11/2014 10/15/2015 Overview: Due to underlying HPS Now on 100% Fio2 with last PaO2 60, Nitric oxide started 10/08, at 40 PPM. O2 sats maintaining in 80s CTS consulted for ECMO evaluation -- Given profound thrombocytopenia and grave condition ECMO not recommended -- Continue nitric oxide -- lung protective ventilation -- increased I:E ratio (at 2.4:1), paralyze with rocuronium if needed -- goal of O2 sats in 70s permissible COPD (chronic obstructive pulmonary disease) 03/12/2014 Coagulopathy 03/11/2014 04/22/2017 Syncope 01/03/2014 04/22/2017 Epididymitis 11/24/2013 04/22/2017 Testalgia 11/24/2013 04/22/2017 Thrombocytopenia 08/20/2009 04/22/2017 Overview: Platelets 96k today, received platelets 10/11 prior to liver biopsy. no obvious bleeding -- monitor CBC, coags -- transfuse as required -- monitor for bleeding -- transfuse plts prior to invasive procedures Hepatitis C 08/20/2009 11/03/2014 Cirrhosis 04/22/2017 Overview: Secondary to alcohol use and HCV complicated by ascites, PSE (on lactulose, rifaximin) and hepatopulmonary syndrome on home O2 s/p OLT on 10/03/15 Concern for rejection (humoral), now s/p thymo, IVIG, plasmapheresis 10/15 and 10/16 completed -hydrocortisone (switched from prednisone) now tapering down - MMF - FK documented as of this encounter (statuses as of 08/02/2022) [facility] History of Past illness Narrative* Problem Noted Date Resolved Date Neck pain 03/11/2022 07/21/2022 Hilar adenopathy 07/09/2018 08/19/2018 Last Assessment & Plan: Assessment: CT A/P on Admission shows Significant subcarinal and bilateral hilar adenopathy on the lower images through the chest. Lymphoproliferative disease suspected He does have a hx of sarcoid But no recent CT chest/CXR to compare. CT chest shows SPLENOMEGALY AND NUMEROUS ENLARGED MEDIASTINAL AND BILATERAL HILAR LYMPH NODES, INCREASED IN SIZE SINCE 2016. THE DIFFERENTIAL DIAGNOSIS INCLUDES SARCOIDOSIS AND LYMPHOPROLIFERATIVE DISEASE. PLAN: -Transfer to [facility] for further evaluation by oncology per ID recommedation. Nausea & vomiting 07/09/2018 07/28/2018 Last Assessment & Plan: Assessment: Patient notes off and on nausea for one month. Also notes worsening control of his reflux symptoms. CTA/P shows significant subcarinal and bilateral hilar adenopathy and new subtle intrahepatic biliary dilatation and common duct dilatation . Obstructing lesion must be excluded, however.Splenic enlargement PLAN: -Increase protonix to 40mg bid -Zofran PRN for N/V -GI consult pending. Cellulitis 07/09/2018 07/13/2018 Abdominal wall cellulitis 12/01/20172021 Last Assessment & Plan: Assessment: Second Episode this year . Likely due to his constant picking of the skin of his abdomen. He is HDS, no leucocytosis,crp 2.6,ESR 2,lactate normal CTA/P shows no abscess nor cellulitis . PLAN: Continue ancef started in the ER. Continue bactrim as scheduled for prophylaxis - due to hx of liver transplant PRN morphine for pain. ID consult (because of his immunocompromised state - hx of liver transplant/ommunesuppresants) Wound care consult (re:open areas on his abdomen due to his scratching) F/up on blood Culture Ventral hernia without obstruction or gangrene 0 03/24/2017 04/22/2017 Lower abdominal pain 07/23/2016 04/22/2017 Dysuria 03/26/2016 07/21/2022 Opioid withdrawal 11/09/2015 04/22/2017 Overview: Thursday with opioid withdrawal after attempted discontinuation of fentanyl Resolution of symptoms after re-starting fentanyl -- Continue fentanyl patch with prn IVP fentanyl for breakthrough pain -- Drip stopped / Respiratory failure, post-operative 10/22/2015 04/22/2017 Overview: Pt intubated for OLT on 10/03/15, remained intubated d/t severe hypoxia (see hepato pulmonary syndrome) 11/01 s/p tracheostomy Very weak and debilitated, profound ICU neuromyopathy Currently improved, toleratingTC, passy etta valve capped -- continue trach collar, PMV Acute pneumothorax 10/17/2015 04/22/2017 Prerenal azotemia 10/17/2015 10/24/2015 Overview: Bun/ Creat ratio now trending down. Hypernatremia resolved -- trend Renal indices -- lasix 20 mg q8 Acute pulmonary embolism 10/17/2015 017 Spontaneous pneumothorax 10/16/2015 017 Overview: Pneumothorax discovered on CT chest 10/15 in setting of high PEEP requirements s/p chest tube placements x2 Last CT removed 11/02 CXR with small persistent Rt. Apical pneumothorax- not appeciated on today's CXR --continue to follow daily CXRs Pneumonia, organism unspecified([id number]) 10/16/2015 11/02/2015 Overview: CT of chest 10/15 shows RLL consolidation suspicious for pneumonia. Completed course of vanco and meropenem continuing micfungin. Sputum culture from 10/09 shows normal respiratory erum. legionella urinary antigen negative --ID following Sepsis due to other etiology 10/15/201505/2017 Overview: Has completed empiric courses of antibiotics for persistent low grade fevers and acute decompensation No obvious source of infection identified per extensive ID workup Vanco d/c 10/25, Meropenem d/c 10/26 11/04 Acute decompensation (fevers 11/05) empiric pip-tazo, vanc, micafungin added--> off since 11/11 (cultures negative) CT chest/ab/pelvis (11/08) with no evidence of infective process -- continue to monitor off ATB Postoperative shock 10/09/2015 04/22/2017 Overview: Shock, hypotension, fevers with increasing leukocytosis in setting of liver transplant, hepatopulmonary syndrome, ARDS, hypoxia. Profound hypoxia requiring nitric oxide therapy. Required low dose levo for BP support, now off. Concern for sepsis, blood cultures negative to date, vanco and zosyn started empirically 10/08. Procalcitonin 1.06. Lacate 1.8 -- Follow cultures -- continue vanco and zosyn -- levo for BP support (avoid fluid boluses if hypotensive) Electrolyte and fluid disorder 10/07/2015 0 04/22/2017 Overview: Hypomagnesemia repleted, hyperphos -- monitor and replete lytes daily -- increase daily PO mag oxide to 800 mg TID New onset seizure 10/05/2015 11/22/2019 Overview: Seizure activity 10/05, BEM supported the dx of cortical dysfunction in the left hemisphere with potential epileptogenicity in the left fronto-central region CT head negative for acute process, neurology consulted, loaded with Keppra Currently alert, follows commands -- weaned to Keppra 500mg bid -- neurology recommending follow up with epilepsy as outpatient ARDS (adult respiratory distress syndrome) 10/0504/22/2017 Overview: Hx of hepatopulmonary syndrome, pulmonary sarcoidosis requiring home O2 6-10 liters Pulmonary HTN with ~45% shunt. Pre-op PaO2 ~55 on RA CXR now with bilateral fluffy infiltrates / ARDS w/ pulmonary edema Desaturates with movement, turning, suctioning. Space = 60% today, with compliance ~45 -- maintain aggressive vent support (100% FiO2, wean PEEP is able as higher PEEP to increase shunt) -- lung protective strategies - Vt 6ml/kg ideal body weight (~350ml) -- trach on hold while unstable -- lasix TID -- Continue Nitric oxide -- increased I:E ratio -- avoid fluid boluses for hypotension - use pressors if needed -- sputum sent for culture Postoperative anemia due to acute blood loss 04/22/2017 Overview: S/P liver transplant with EBL 17 L c/b thrombocytopenia, coagulopahty and OP bleeding requiring intra-op nasal and pharyngeal packing Last transfused 10/08 2U PRBCs. 10/10: ENT removed nasal merocel. Clots in both nasopharyxes. No reinsertion of nasal tubes. -- monitor CBC and coags -- transfuse as required Agitation requiring sedation protocol 10/05/2015 04/22/2017 Overview: Required prolonged neuromuscular blockade with deep sedation secondary to increased WOB, breath stacking and hypoxia After discontinuation, he has had difficultly controlling agitation, likely opioid withdrawl. Had required precedex, fentanyl patch, prn haldol, seroquel Currently on seroquel, fentanyl patch Has been awake and alert, very cooperative -- continue on decreased TID seroquel dosing of 25mg TID and 150 mg qHS -- continue with fentanyl patch Acute post-operative pain 10/05/20152016 Overview: Was on prolonged fentanyl infusion d/t vent asynchrony, pain from liver tx Now transitioned to patch, infusion stopped 11/13 -- continue fentanyl patch (100mcg) Renal insufficiency 10/05/2015 10/08/2015 Overview: Secondary to hypotension Baseline Scr 0.66, now down to 0.83 Making good UO -- monitor renal indices Stress hyperglycemia 10/05/2015 04/22/2017 Overview: -- Adequate glycemic control with SSI Moderate protein-calorie malnutrition 10/05/2015 04/22/2017 Overview: Tolerating goal tube feeds Osmolite 1.2 @ 70 Prealbumin 26, transferrin 185 -- continue TF with fiber and beneprotien and full liquid diet -- nutrition following Abdominal distension 09/12/2015 04/22/2017 Overview: - concerning given weight gain of 30 lb from 09/04 - CT abdomen on last admission showed tissue edema> ascites, concern for third spacing in the abdominal wall tissue - no evidence of active infection, however, currently pancytopenia - was taking Lasix 20 mg PO every other day and spironolactone 50 mg PO daily - Liver vascular U/S demonstrates patent vasculature Plan - diuresis with Lasix 40 mg PO BID and spironolactone 100 mg PO daily - paracentesis as needed for respiratory function Liver transplant candidate 08/17/201504/22 Pain disorder with psychological factors 015 12/23/2021 Hyperammonemia 07/20/2015 04/22/2017 SUMMARY 06/14/2015 09/12/2015 Overview: Mr. 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 SOB (shortness of breath) 06/14/20152016 Overview: Started after dry run Possibly irritated by catheter? Systolic murmur also heard Chest x-ray and CT PE negative Currently at baseline New valvular lesion vs clot? -Echocardiogram -Doppler study -Observe for now Hepatic cirrhosis 06/14/2015 04/22/2017 Overview: #Cirrhosis -Continue lactulose, rifaximin -Continue aldactone Infection of other external stoma of urinary tra ct 05/17/2015 04/22/2017 UTI (lower urinary tract infection) 04/08/2015 04/22/2017 Overview: Was complaining of dysuria. UA positive with leukoesterase and Was started of ceftriaxone at OSH. Received 2 dosages here yesterday and one today. Will finish treatment for complicated UTI at home with cipro 500BID Hepatic encephalopathy 04/08/2015 7 Overview: On lactulose zinc Rifaximin Fever, low grade 11/03/2014 04/22/2017 Overview: Low grade fever on presentation UA clean Plan - Blood cx ngtd - afebrile since SUMMARY 08/31/2014 07/24/2016 Overview: The patient is a 50 yo male with a past medical history of HCV/ETOH Liver Cirrhosis c/b hepatopulmonary syndrome, hypersplenism, HE, Grade I EV, pulmonary sarcoidosis who presents with acute weight gain, abdominal distension, and SOB Fever and chills 08/31/2014 04/22/2017 Overview: Tmax 38.7 this AM; pt reports recent history of tooth extraction One time fever yesterday Received 2 time cefazolin after PFO closure. Plan: -UA, BCxx2 - NG till now -will hold off on abx for now and observe Retained dental root 08/15/2014 12/23/2021 Hepatopulmonary syndrome 03/12/2014 018 Overview: History of hepatopulmonary syndrome with ~45.2% shunt, pulmonary sarcoidosis requiring home O2 6-10 liters and mild pulmonary HTN Preop PaO2 ~55 on RA Profound hypoxia postoperatively requiring max vent support with high PEEP, heavy sedation/paralytics, flolan, nitric oxide (off since 10/26) Course c/b Right lung Pneumothorax, resp failure requiring trach 11/01 Decompensation 11/04 secondary to narcotic withdrawal +/- sepsis-->Drastically improved with fentanyl infusion, ATB. Updated echo 11/15 with EF 55%, normal RV Currently doing great, on continuous trach collar with passy etta valve, and diet -- Goal sats 85% -- Continue TC, PMV, OOB Bicytopenia 03/12/2014 04/22/2017 Overview: He has plat count of 20k and WCC of around 1000 His neutropenia is likely 2/2 to INF His thrombocytopenia is likley 2/2 to his cirrhosis Plan: Watch, transfuse plats if <10k or bleeding Pancytopenia 03/11/2014 03/12/2014 Hypoxemia 03/11/2014 10/15/2015 Overview: Due to underlying HPS Now on 100% Fio2 with last PaO2 60, Nitric oxide started 10/08, at 40 PPM. O2 sats maintaining in 80s CTS consulted for ECMO evaluation -- Given profound thrombocytopenia and grave condition ECMO not recommended -- Continue nitric oxide -- lung protective ventilation -- increased I:E ratio (at 2.4:1), paralyze with rocuronium if needed -- goal of O2 sats in 70s permissible COPD (chronic obstructive pulmonary disease) 03/12/2014 Coagulopathy 03/11/2014 04/22/2017 Syncope 01/03/2014 04/22/2017 Epididymitis 11/24/2013 04/22/2017 Testalgia 11/24/2013 04/22/2017 Thrombocytopenia 08/20/2009 04/22/2017 Overview: Platelets 96k today, received platelets 10/11 prior to liver biopsy. no obvious bleeding -- monitor CBC, coags -- transfuse as required -- monitor for bleeding -- transfuse plts prior to invasive procedures Hepatitis C 08/20/2009 11/03/2014 Cirrhosis 04/22/2017 Overview: Secondary to alcohol use and HCV complicated by ascites, PSE (on lactulose, rifaximin) and hepatopulmonary syndrome on home O2 s/p OLT on 10/03/15 Concern for rejection (humoral), now s/p thymo, IVIG, plasmapheresis 10/15 and 10/16 completed -hydrocortisone (switched from prednisone) now tapering down - MMF - FK documented as of this encounter (statuses as of 08/12/2022) [facility]06[facility] History of Past illness Narrative* Problem Noted Date Resolved Date Neck pain 03/11/2022 07/21/2022 Hilar adenopathy 07/09/2018 08/19/2018 Last Assessment & Plan: Assessment: CT A/P on Admission shows Significant subcarinal and bilateral hilar adenopathy on the lower images through the chest. Lymphoproliferative disease suspected He does have a hx of sarcoid But no recent CT chest/CXR to compare. CT chest shows SPLENOMEGALY AND NUMEROUS ENLARGED MEDIASTINAL AND BILATERAL HILAR LYMPH NODES, INCREASED IN SIZE SINCE 2016. THE DIFFERENTIAL DIAGNOSIS INCLUDES SARCOIDOSIS AND LYMPHOPROLIFERATIVE DISEASE. PLAN: -Transfer to [facility] for further evaluation by oncology per ID recommedation. Nausea & vomiting 07/09/2018 07/28/2018 Last Assessment & Plan: Assessment: Patient notes off and on nausea for one month. Also notes worsening control of his reflux symptoms. CTA/P shows significant subcarinal and bilateral hilar adenopathy and new subtle intrahepatic biliary dilatation and common duct dilatation . Obstructing lesion must be excluded, however.Splenic enlargement PLAN: -Increase protonix to 40mg bid -Zofran PRN for N/V -GI consult pending. Cellulitis 07/09/2018 07/13/2018 Abdominal wall cellulitis 12/01/20172021 Last Assessment & Plan: Assessment: Second Episode this year . Likely due to his constant picking of the skin of his abdomen. He is HDS, no leucocytosis,crp 2.6,ESR 2,lactate normal CTA/P shows no abscess nor cellulitis . PLAN: Continue ancef started in the ER. Continue bactrim as scheduled for prophylaxis - due to hx of liver transplant PRN morphine for pain. ID consult (because of his immunocompromised state - hx of liver transplant/ommunesuppresants) Wound care consult (re:open areas on his abdomen due to his scratching) F/up on blood Culture Ventral hernia without obstruction or gangrene 0 03/24/2017 04/22/2017 Lower abdominal pain 07/23/2016 04/22/2017 Dysuria 03/26/2016 07/21/2022 Opioid withdrawal 11/09/2015 04/22/2017 Overview: Thursday with opioid withdrawal after attempted discontinuation of fentanyl Resolution of symptoms after re-starting fentanyl -- Continue fentanyl patch with prn IVP fentanyl for breakthrough pain -- Drip stopped 11/13 Respiratory failure, post-operative 10/22/2015 04/22/2017 Overview: Pt intubated for OLT on 10/03/15, remained intubated d/t severe hypoxia (see hepato pulmonary syndrome) 11/01 s/p tracheostomy Very weak and debilitated, profound ICU neuromyopathy Currently improved, toleratingTC, passy etta valve capped -- continue trach collar, PMV Acute pneumothorax 10/17/2015 04/22/2017 Prerenal azotemia 10/17/2015 10/24/2015 Overview: Bun/ Creat ratio now trending down. Hypernatremia resolved -- trend Renal indices -- lasix 20 mg q8 Acute pulmonary embolism 10/17/2015 017 Spontaneous pneumothorax 10/16/2015 017 Overview: Pneumothorax discovered on CT chest 10/15 in setting of high PEEP requirements s/p chest tube placements x2 Last CT removed 11/02 CXR with small persistent Rt. Apical pneumothorax- not appeciated on today's CXR --continue to follow daily CXRs Pneumonia, organism unspecified(486) 10/16/2015 11/02/2015 Overview: CT of chest 10/15 shows RLL consolidation suspicious for pneumonia. Completed course of vanco and meropenem continuing micfungin. Sputum culture from 10/09 shows normal respiratory erum. legionella urinary antigen negative --ID following Sepsis due to other etiology 10/15/201505/2017 Overview: Has completed empiric courses of antibiotics for persistent low grade fevers and acute decompensation No obvious source of infection identified per extensive ID workup Vanco d/c 10/25, Meropenem d/c 10/26 11/04 Acute decompensation (fevers 11/05) empiric pip-tazo, vanc, micafungin added--> off since 11/11 (cultures negative) CT chest/ab/pelvis (11/08) with no evidence of infective process -- continue to monitor off ATB Postoperative shock 10/09/2015 04/22/2017 Overview: Shock, hypotension, fevers with increasing leukocytosis in setting of liver transplant, hepatopulmonary syndrome, ARDS, hypoxia. Profound hypoxia requiring nitric oxide therapy. Required low dose levo for BP support, now off. Concern for sepsis, blood cultures negative to date, vanco and zosyn started empirically 10/08. Procalcitonin 1.06. Lacate 1.8 -- Follow cultures -- continue vanco and zosyn -- levo for BP support (avoid fluid boluses if hypotensive) Electrolyte and fluid disorder 10/07/2015 0 04/22/2017 Overview: Hypomagnesemia repleted, hyperphos -- monitor and replete lytes daily -- increase daily PO mag oxide to 800 mg TID New onset seizure 10/05/2015 11/22/2019 Overview: Seizure activity 10/05, BEM supported the dx of cortical dysfunction in the left hemisphere with potential epileptogenicity in the left fronto-central region CT head negative for acute process, neurology consulted, loaded with Keppra Currently alert, follows commands -- weaned to Keppra 500mg bid -- neurology recommending follow up with epilepsy as outpatient ARDS (adult respiratory distress syndrome) 10/0504/22/2017 Overview: Hx of hepatopulmonary syndrome, pulmonary sarcoidosis requiring home O2 6-10 liters Pulmonary HTN with ~45% shunt. Pre-op PaO2 ~55 on RA CXR now with bilateral fluffy infiltrates / ARDS w/ pulmonary edema Desaturates with movement, turning, suctioning. Space = 60% today, with compliance ~45 -- maintain aggressive vent support (100% FiO2, wean PEEP is able as higher PEEP to increase shunt) -- lung protective strategies - Vt 6ml/kg ideal body weight (~350ml) -- trach on hold while unstable -- lasix TID -- Continue Nitric oxide -- increased I:E ratio -- avoid fluid boluses for hypotension - use pressors if needed -- sputum sent for culture Postoperative anemia due to acute blood loss 04/22/2017 Overview: S/P liver transplant with EBL 17 L c/b thrombocytopenia, coagulopahty and OP bleeding requiring intra-op nasal and pharyngeal packing Last transfused 10/08 2U PRBCs. 10/10: ENT removed nasal merocel. Clots in both nasopharyxes. No reinsertion of nasal tubes. -- monitor CBC and coags -- transfuse as required Agitation requiring sedation protocol 10/05/2015 04/22/2017 Overview: Required prolonged neuromuscular blockade with deep sedation secondary to increased WOB, breath stacking and hypoxia After discontinuation, he has had difficultly controlling agitation, likely opioid withdrawl. Had required precedex, fentanyl patch, prn haldol, seroquel Currently on seroquel, fentanyl patch Has been awake and alert, very cooperative -- continue on decreased TID seroquel dosing of 25mg TID and 150 mg qHS -- continue with fentanyl patch Acute post-operative pain 10/05/20152016 Overview: Was on prolonged fentanyl infusion d/t vent asynchrony, pain from liver tx Now transitioned to patch, infusion stopped 11/13 -- continue fentanyl patch (100mcg) Renal insufficiency 10/05/2015 10/08/2015 Overview: Secondary to hypotension Baseline Scr 0.66, now down to 0.83 Making good UO -- monitor renal indices Stress hyperglycemia 10/05/2015 04/22/2017 Overview: -- Adequate glycemic control with SSI Moderate protein-calorie malnutrition 10/05/2015 04/22/2017 Overview: Tolerating goal tube feeds Osmolite 1.2 @ 70 Prealbumin 26, transferrin 185 -- continue TF with fiber and beneprotien and full liquid diet -- nutrition following Abdominal distension 09/12/2015 04/22/2017 Overview: - concerning given weight gain of 30 lb from 09/04 - CT abdomen on last admission showed tissue edema> ascites, concern for third spacing in the abdominal wall tissue - no evidence of active infection, however, currently pancytopenia - was taking Lasix 20 mg PO every other day and spironolactone 50 mg PO daily - Liver vascular U/S demonstrates patent vasculature Plan - diuresis with Lasix 40 mg PO BID and spironolactone 100 mg PO daily - paracentesis as needed for respiratory function Liver transplant candidate 08/17/201504/22 Pain disorder with psychological factors 015 12/23/2021 Hyperammonemia 07/20/2015 04/22/2017 SUMMARY 06/14/2015 09/12/2015 Overview: Mr. 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 SOB (shortness of breath) 06/14/20152016 Overview: Started after dry run Possibly irritated by catheter? Systolic murmur also heard Chest x-ray and CT PE negative Currently at baseline New valvular lesion vs clot? -Echocardiogram -Doppler study -Observe for now Hepatic cirrhosis 06/14/2015 04/22/2017 Overview: #Cirrhosis -Continue lactulose, rifaximin -Continue aldactone Infection of other external stoma of urinary tra ct 05/17/2015 04/22/2017 UTI (lower urinary tract infection) 04/08/2015 04/22/2017 Overview: Was complaining of dysuria. UA positive with leukoesterase and Was started of ceftriaxone at OSH. Received 2 dosages here yesterday and one today. Will finish treatment for complicated UTI at home with cipro [id number] Hepatic encephalopathy 04/08/2015 7 Overview: On lactulose zinc Rifaximin Fever, low grade 11/03/2014 04/22/2017 Overview: Low grade fever on presentation UA clean Plan - Blood cx ngtd - afebrile since SUMMARY 08/31/2014 07/24/2016 Overview: The patient is a 50 yo male with a past medical history of HCV/ETOH Liver Cirrhosis c/b hepatopulmonary syndrome, hypersplenism, HE, Grade I EV, pulmonary sarcoidosis who presents with acute weight gain, abdominal distension, and SOB Fever and chills 08/31/2014 04/22/2017 Overview: Tmax 38.7 this AM; pt reports recent history of tooth extraction One time fever yesterday Received 2 time cefazolin after PFO closure. Plan: -UA, BCxx2 - NG till now -will hold off on abx for now and observe Retained dental root 08/15/2014 12/23/2021 Hepatopulmonary syndrome 03/12/2014 018 Overview: History of hepatopulmonary syndrome with ~45.2% shunt, pulmonary sarcoidosis requiring home O2 6-10 liters and mild pulmonary HTN Preop PaO2 ~55 on RA Profound hypoxia postoperatively requiring max vent support with high PEEP, heavy sedation/paralytics, flolan, nitric oxide (off since 10/26) Course c/b Right lung Pneumothorax, resp failure requiring trach 11/01 Decompensation 11/04 secondary to narcotic withdrawal +/- sepsis-->Drastically improved with fentanyl infusion, ATB. Updated echo 11/15 with EF 55%, normal RV Currently doing great, on continuous trach collar with passy etta valve, and diet -- Goal sats 85% -- Continue TC, PMV, OOB Bicytopenia 03/12/2014 04/22/2017 Overview: He has plat count of 20k and WCC of around 1000 His neutropenia is likely 2/2 to INF His thrombocytopenia is likley 2/2 to his cirrhosis Plan: Watch, transfuse plats if <10k or bleeding Pancytopenia 03/11/2014 03/12/2014 Hypoxemia 03/11/2014 10/15/2015 Overview: Due to underlying HPS Now on 100% Fio2 with last PaO2 60, Nitric oxide started 10/08, at 40 PPM. O2 sats maintaining in 80s CTS consulted for ECMO evaluation -- Given profound thrombocytopenia and grave condition ECMO not recommended -- Continue nitric oxide -- lung protective ventilation -- increased I:E ratio (at 2.4:1), paralyze with rocuronium if needed -- goal of O2 sats in 70s permissible COPD (chronic obstructive pulmonary disease) 03/12/2014 Coagulopathy 03/11/2014 04/22/2017 Syncope 01/03/2014 04/22/2017 Epididymitis 11/24/2013 04/22/2017 Testalgia 11/24/2013 04/22/2017 Thrombocytopenia 08/20/2009 04/22/2017 Overview: Platelets 96k today, received platelets 10/11 prior to liver biopsy. no obvious bleeding -- monitor CBC, coags -- transfuse as required -- monitor for bleeding -- transfuse plts prior to invasive procedures Hepatitis C 08/20/2009 11/03/2014 Cirrhosis 04/22/2017 Overview: Secondary to alcohol use and HCV complicated by ascites, PSE (on lactulose, rifaximin) and hepatopulmonary syndrome on home O2 s/p OLT on 10/03/15 Concern for rejection (humoral), now s/p thymo, IVIG, plasmapheresis 10/15 and 2 completed -hydrocortisone (switched from prednisone) now tapering down - MMF - FK documented as of this encounter (statuses as of 08/19/2022) [facility] History of Past illness Narrative* Problem Noted Date Resolved Date Neck pain 03/11/2022 07/21/2022 Hilar adenopathy 07/09/2018 08/19/2018 Last Assessment & Plan: Assessment: CT A/P on Admission shows Significant subcarinal and bilateral hilar adenopathy on the lower images through the chest. Lymphoproliferative disease suspected He does have a hx of sarcoid But no recent CT chest/CXR to compare. CT chest shows SPLENOMEGALY AND NUMEROUS ENLARGED MEDIASTINAL AND BILATERAL HILAR LYMPH NODES, INCREASED IN SIZE SINCE 2016. THE DIFFERENTIAL DIAGNOSIS INCLUDES SARCOIDOSIS AND LYMPHOPROLIFERATIVE DISEASE. PLAN: -Transfer to [facility] for further evaluation by oncology per ID recommedation. Nausea & vomiting 07/09/2018 07/28/2018 Last Assessment & Plan: Assessment: Patient notes off and on nausea for one month. Also notes worsening control of his reflux symptoms. CTA/P shows significant subcarinal and bilateral hilar adenopathy and new subtle intrahepatic biliary dilatation and common duct dilatation . Obstructing lesion must be excluded, however.Splenic enlargement PLAN: -Increase protonix to 40mg bid -Zofran PRN for N/V -GI consult pending. Cellulitis 07/09/2018 07/13/2018 Abdominal wall cellulitis 12/01/20172021 Last Assessment & Plan: Assessment: Second Episode this year . Likely due to his constant picking of the skin of his abdomen. He is HDS, no leucocytosis,crp 2.6,ESR 2,lactate normal CTA/P shows no abscess nor cellulitis . PLAN: Continue ancef started in the ER. Continue bactrim as scheduled for prophylaxis - due to hx of liver transplant PRN morphine for pain. ID consult (because of his immunocompromised state - hx of liver transplant/ommunesuppresants) Wound care consult (re:open areas on his abdomen due to his scratching) F/up on blood Culture Ventral hernia without obstruction or gangrene 0 03/24/2017 04/22/2017 Lower abdominal pain 07/23/2016 04/22/2017 Dysuria 03/26/2016 07/21/2022 Opioid withdrawal 11/09/2015 04/22/2017 Overview: Thursday with opioid withdrawal after attempted discontinuation of fentanyl Resolution of symptoms after re-starting fentanyl -- Continue fentanyl patch with prn IVP fentanyl for breakthrough pain -- Drip stopped 3/2 Respiratory failure, post-operative 10/22/2015 04/22/2017 Overview: Pt intubated for OLT on 10/03/15, remained intubated d/t severe hypoxia (see hepato pulmonary syndrome) 11/01 s/p tracheostomy Very weak and debilitated, profound ICU neuromyopathy Currently improved, toleratingTC, passy etta valve capped -- continue trach collar, PMV Acute pneumothorax 10/17/2015 04/22/2017 Prerenal azotemia 10/17/2015 10/24/2015 Overview: Bun/ Creat ratio now trending down. Hypernatremia resolved -- trend Renal indices -- lasix 20 mg q8 Acute pulmonary embolism 10/17/2015 017 Spontaneous pneumothorax 10/16/2015 017 Overview: Pneumothorax discovered on CT chest 10/15 in setting of high PEEP requirements s/p chest tube placements x2 Last CT removed 11/02 CXR with small persistent Rt. Apical pneumothorax- not appeciated on today's CXR --continue to follow daily CXRs Pneumonia, organism unspecified([id number]) 10/16/2015 11/02/2015 Overview: CT of chest 10/15 shows RLL consolidation suspicious for pneumonia. Completed course of vanco and meropenem continuing micfungin. Sputum culture from 10/09 shows normal respiratory erum. legionella urinary antigen negative --ID following Sepsis due to other etiology 10/15/201505/2017 Overview: Has completed empiric courses of antibiotics for persistent low grade fevers and acute decompensation No obvious source of infection identified per extensive ID workup Vanco d/c 10/25, Meropenem d/c 10/26 11/04 Acute decompensation (fevers 11/05) empiric pip-tazo, vanc, micafungin added--> off since 11/11 (cultures negative) CT chest/ab/pelvis (11/08) with no evidence of infective process -- continue to monitor off ATB Postoperative shock 10/09/2015 04/22/2017 Overview: Shock, hypotension, fevers with increasing leukocytosis in setting of liver transplant, hepatopulmonary syndrome, ARDS, hypoxia. Profound hypoxia requiring nitric oxide therapy. Required low dose levo for BP support, now off. Concern for sepsis, blood cultures negative to date, vanco and zosyn started empirically 10/08. Procalcitonin 1.06. Lacate 1.8 -- Follow cultures -- continue vanco and zosyn -- levo for BP support (avoid fluid boluses if hypotensive) Electrolyte and fluid disorder 10/07/2015 0 04/22/2017 Overview: Hypomagnesemia repleted, hyperphos -- monitor and replete lytes daily -- increase daily PO mag oxide to 800 mg TID New onset seizure 10/05/2015 11/22/2019 Overview: Seizure activity 10/05, BEM supported the dx of cortical dysfunction in the left hemisphere with potential epileptogenicity in the left fronto-central region CT head negative for acute process, neurology consulted, loaded with Keppra Currently alert, follows commands -- weaned to Keppra 500mg bid -- neurology recommending follow up with epilepsy as outpatient ARDS (adult respiratory distress syndrome) 10/0504/22/2017 Overview: Hx of hepatopulmonary syndrome, pulmonary sarcoidosis requiring home O2 6-10 liters Pulmonary HTN with ~45% shunt. Pre-op PaO2 ~55 on RA CXR now with bilateral fluffy infiltrates / ARDS w/ pulmonary edema Desaturates with movement, turning, suctioning. Space = 60% today, with compliance ~45 -- maintain aggressive vent support (100% FiO2, wean PEEP is able as higher PEEP to increase shunt) -- lung protective strategies - Vt 6ml/kg ideal body weight (~350ml) -- trach on hold while unstable -- lasix TID -- Continue Nitric oxide -- increased I:E ratio -- avoid fluid boluses for hypotension - use pressors if needed -- sputum sent for culture Postoperative anemia due to acute blood loss 04/22/2017 Overview: S/P liver transplant with EBL 17 L c/b thrombocytopenia, coagulopahty and OP bleeding requiring intra-op nasal and pharyngeal packing Last transfused 10/08 2U PRBCs. 10/10: ENT removed nasal merocel. Clots in both nasopharyxes. No reinsertion of nasal tubes. -- monitor CBC and coags -- transfuse as required Agitation requiring sedation protocol 10/05/2015 04/22/2017 Overview: Required prolonged neuromuscular blockade with deep sedation secondary to increased WOB, breath stacking and hypoxia After discontinuation, he has had difficultly controlling agitation, likely opioid withdrawl. Had required precedex, fentanyl patch, prn haldol, seroquel Currently on seroquel, fentanyl patch Has been awake and alert, very cooperative -- continue on decreased TID seroquel dosing of 25mg TID and 150 mg qHS -- continue with fentanyl patch Acute post-operative pain 10/05/20152016 Overview: Was on prolonged fentanyl infusion d/t vent asynchrony, pain from liver tx Now transitioned to patch, infusion stopped 11/13 -- continue fentanyl patch (100mcg) Renal insufficiency 10/05/2015 10/08/2015 Overview: Secondary to hypotension Baseline Scr 0.66, now down to 0.83 Making good UO -- monitor renal indices Stress hyperglycemia 10/05/2015 04/22/2017 Overview: -- Adequate glycemic control with SSI Moderate protein-calorie malnutrition 10/05/2015 04/22/2017 Overview: Tolerating goal tube feeds Osmolite 1.2 @ 70 Prealbumin 26, transferrin 185 -- continue TF with fiber and beneprotien and full liquid diet -- nutrition following Abdominal distension 09/12/2015 04/22/2017 Overview: - concerning given weight gain of 30 lb from 09/04 - CT abdomen on last admission showed tissue edema> ascites, concern for third spacing in the abdominal wall tissue - no evidence of active infection, however, currently pancytopenia - was taking Lasix 20 mg PO every other day and spironolactone 50 mg PO daily - Liver vascular U/S demonstrates patent vasculature Plan - diuresis with Lasix 40 mg PO BID and spironolactone 100 mg PO daily - paracentesis as needed for respiratory function Liver transplant candidate 08/17/201504/22 Pain disorder with psychological factors 015 12/23/2021 Hyperammonemia 07/20/2015 04/22/2017 SUMMARY 06/14/2015 09/12/2015 Overview: Mr. 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 SOB (shortness of breath) 06/14/20152016 Overview: Started after dry run Possibly irritated by catheter? Systolic murmur also heard Chest x-ray and CT PE negative Currently at baseline New valvular lesion vs clot? -Echocardiogram -Doppler study -Observe for now Hepatic cirrhosis 06/14/2015 04/22/2017 Overview: #Cirrhosis -Continue lactulose, rifaximin -Continue aldactone Infection of other external stoma of urinary tra ct 05/17/2015 04/22/2017 UTI (lower urinary tract infection) 04/08/2015 04/22/2017 Overview: Was complaining of dysuria. UA positive with leukoesterase and Was started of ceftriaxone at OSH. Received 2 dosages here yesterday and one today. Will finish treatment for complicated UTI at home with cipro 500BID Hepatic encephalopathy 04/08/2015 7 Overview: On lactulose zinc Rifaximin Fever, low grade 11/03/2014 04/22/2017 Overview: Low grade fever on presentation UA clean Plan - Blood cx ngtd - afebrile since SUMMARY 08/31/2014 07/24/2016 Overview: The patient is a 50 yo male with a past medical history of HCV/ETOH Liver Cirrhosis c/b hepatopulmonary syndrome, hypersplenism, HE, Grade I EV, pulmonary sarcoidosis who presents with acute weight gain, abdominal distension, and SOB Fever and chills 08/31/2014 04/22/2017 Overview: Tmax 38.7 this AM; pt reports recent history of tooth extraction One time fever yesterday Received 2 time cefazolin after PFO closure. Plan: -UA, BCxx2 - NG till now -will hold off on abx for now and observe Retained dental root 08/15/2014 12/23/2021 Hepatopulmonary syndrome 03/12/2014 018 Overview: History of hepatopulmonary syndrome with ~45.2% shunt, pulmonary sarcoidosis requiring home O2 6-10 liters and mild pulmonary HTN Preop PaO2 ~55 on RA Profound hypoxia postoperatively requiring max vent support with high PEEP, heavy sedation/paralytics, flolan, nitric oxide (off since 10/26) Course c/b Right lung Pneumothorax, resp failure requiring trach 11/01 Decompensation 11/04 secondary to narcotic withdrawal +/- sepsis-->Drastically improved with fentanyl infusion, ATB. Updated echo 11/15 with EF 55%, normal RV Currently doing great, on continuous trach collar with passy etta valve, and diet -- Goal sats 85% -- Continue TC, PMV, OOB Bicytopenia 03/12/2014 04/22/2017 Overview: He has plat count of 20k and WCC of around 1000 His neutropenia is likely 2/2 to INF His thrombocytopenia is likley 2/2 to his cirrhosis Plan: Watch, transfuse plats if <10k or bleeding Pancytopenia 03/11/2014 03/12/2014 Hypoxemia 03/11/2014 10/15/2015 Overview: Due to underlying HPS Now on 100% Fio2 with last PaO2 60, Nitric oxide started 10/08, at 40 PPM. O2 sats maintaining in 80s CTS consulted for ECMO evaluation -- Given profound thrombocytopenia and grave condition ECMO not recommended -- Continue nitric oxide -- lung protective ventilation -- increased I:E ratio (at 2.4:1), paralyze with rocuronium if needed -- goal of O2 sats in 70s permissible COPD (chronic obstructive pulmonary disease) 03/12/2014 Coagulopathy 03/11/2014 04/22/2017 Syncope 01/03/2014 04/22/2017 Epididymitis 11/24/2013 04/22/2017 Testalgia 11/24/2013 04/22/2017 Thrombocytopenia 08/20/2009 04/22/2017 Overview: Platelets 96k today, received platelets 10/11 prior to liver biopsy. no obvious bleeding -- monitor CBC, coags -- transfuse as required -- monitor for bleeding -- transfuse plts prior to invasive procedures Hepatitis C 08/20/2009 11/03/2014 Cirrhosis 04/22/2017 Overview: Secondary to alcohol use and HCV complicated by ascites, PSE (on lactulose, rifaximin) and hepatopulmonary syndrome on home O2 s/p OLT on 10/03/15 Concern for rejection (humoral), now s/p thymo, IVIG, plasmapheresis 10/15 and 10/16 completed -hydrocortisone (switched from prednisone) now tapering down - MMF - FK documented as of this encounter (statuses as of 08/20/2022) [facility] History of Past illness Narrative* Problem Noted Date Resolved Date Neck pain 03/11/2022 07/21/2022 Hilar adenopathy 07/09/2018 08/19/2018 Last Assessment & Plan: Assessment: CT A/P on Admission shows Significant subcarinal and bilateral hilar adenopathy on the lower images through the chest. Lymphoproliferative disease suspected He does have a hx of sarcoid But no recent CT chest/CXR to compare. CT chest shows SPLENOMEGALY AND NUMEROUS ENLARGED MEDIASTINAL AND BILATERAL HILAR LYMPH NODES, INCREASED IN SIZE SINCE 2016. THE DIFFERENTIAL DIAGNOSIS INCLUDES SARCOIDOSIS AND LYMPHOPROLIFERATIVE DISEASE. PLAN: -Transfer to [facility] for further evaluation by oncology per ID recommedation. Nausea & vomiting 07/09/2018 07/28/2018 Last Assessment & Plan: Assessment: Patient notes off and on nausea for one month. Also notes worsening control of his reflux symptoms. CTA/P shows significant subcarinal and bilateral hilar adenopathy and new subtle intrahepatic biliary dilatation and common duct dilatation . Obstructing lesion must be excluded, however.Splenic enlargement PLAN: -Increase protonix to 40mg bid -Zofran PRN for N/V -GI consult pending. Cellulitis 07/09/2018 07/13/2018 Abdominal wall cellulitis 12/01/20172021 Last Assessment & Plan: Assessment: Second Episode this year . Likely due to his constant picking of the skin of his abdomen. He is HDS, no leucocytosis,crp 2.6,ESR 2,lactate normal CTA/P shows no abscess nor cellulitis . PLAN: Continue ancef started in the ER. Continue bactrim as scheduled for prophylaxis - due to hx of liver transplant PRN morphine for pain. ID consult (because of his immunocompromised state - hx of liver transplant/ommunesuppresants) Wound care consult (re:open areas on his abdomen due to his scratching) F/up on blood Culture Ventral hernia without obstruction or gangrene 0 03/24/2017 04/22/2017 Lower abdominal pain 07/23/2016 04/22/2017 Dysuria 03/26/2016 07/21/2022 Opioid withdrawal 11/09/2015 04/22/2017 Overview: Thursday with opioid withdrawal after attempted discontinuation of fentanyl Resolution of symptoms after re-starting fentanyl -- Continue fentanyl patch with prn IVP fentanyl for breakthrough pain -- Drip stopped 3/2 Respiratory failure, post-operative 10/22/2015 04/22/2017 Overview: Pt intubated for OLT on 10/03/15, remained intubated d/t severe hypoxia (see hepato pulmonary syndrome) 11/01 s/p tracheostomy Very weak and debilitated, profound ICU neuromyopathy Currently improved, toleratingTC, passy etta valve capped -- continue trach collar, PMV Acute pneumothorax 10/17/2015 04/22/2017 Prerenal azotemia 10/17/2015 10/24/2015 Overview: Bun/ Creat ratio now trending down. Hypernatremia resolved -- trend Renal indices -- lasix 20 mg q8 Acute pulmonary embolism 10/17/2015 017 Spontaneous pneumothorax 10/16/2015 017 Overview: Pneumothorax discovered on CT chest 10/15 in setting of high PEEP requirements s/p chest tube placements x2 Last CT removed 11/02 CXR with small persistent Rt. Apical pneumothorax- not appeciated on today's CXR --continue to follow daily CXRs Pneumonia, organism unspecified(486) 10/16/2015 11/02/2015 Overview: CT of chest 10/15 shows RLL consolidation suspicious for pneumonia. Completed course of vanco and meropenem continuing micfungin. Sputum culture from 10/09 shows normal respiratory erum. legionella urinary antigen negative --ID following Sepsis due to other etiology 10/15/201505/2017 Overview: Has completed empiric courses of antibiotics for persistent low grade fevers and acute decompensation No obvious source of infection identified per extensive ID workup Vanco d/c 10/25, Meropenem d/c 10/26 11/04 Acute decompensation (fevers 11/05) empiric pip-tazo, vanc, micafungin added--> off since 11/11 (cultures negative) CT chest/ab/pelvis (11/08) with no evidence of infective process -- continue to monitor off ATB Postoperative shock 10/09/2015 04/22/2017 Overview: Shock, hypotension, fevers with increasing leukocytosis in setting of liver transplant, hepatopulmonary syndrome, ARDS, hypoxia. Profound hypoxia requiring nitric oxide therapy. Required low dose levo for BP support, now off. Concern for sepsis, blood cultures negative to date, vanco and zosyn started empirically 10/08. Procalcitonin 1.06. Lacate 1.8 -- Follow cultures -- continue vanco and zosyn -- levo for BP support (avoid fluid boluses if hypotensive) Electrolyte and fluid disorder 10/07/2015 0 04/22/2017 Overview: Hypomagnesemia repleted, hyperphos -- monitor and replete lytes daily -- increase daily PO mag oxide to 800 mg TID New onset seizure 10/05/2015 11/22/2019 Overview: Seizure activity 10/05, BEM supported the dx of cortical dysfunction in the left hemisphere with potential epileptogenicity in the left fronto-central region CT head negative for acute process, neurology consulted, loaded with Keppra Currently alert, follows commands -- weaned to Keppra 500mg bid -- neurology recommending follow up with epilepsy as outpatient ARDS (adult respiratory distress syndrome) 10/0504/22/2017 Overview: Hx of hepatopulmonary syndrome, pulmonary sarcoidosis requiring home O2 6-10 liters Pulmonary HTN with ~45% shunt. Pre-op PaO2 ~55 on RA CXR now with bilateral fluffy infiltrates / ARDS w/ pulmonary edema Desaturates with movement, turning, suctioning. Space = 60% today, with compliance ~45 -- maintain aggressive vent support (100% FiO2, wean PEEP is able as higher PEEP to increase shunt) -- lung protective strategies - Vt 6ml/kg ideal body weight (~350ml) -- trach on hold while unstable -- lasix TID -- Continue Nitric oxide -- increased I:E ratio -- avoid fluid boluses for hypotension - use pressors if needed -- sputum sent for culture Postoperative anemia due to acute blood loss 04/22/2017 Overview: S/P liver transplant with EBL 17 L c/b thrombocytopenia, coagulopahty and OP bleeding requiring intra-op nasal and pharyngeal packing Last transfused 10/08 2U PRBCs. 10/10: ENT removed nasal merocel. Clots in both nasopharyxes. No reinsertion of nasal tubes. -- monitor CBC and coags -- transfuse as required Agitation requiring sedation protocol 10/05/2015 04/22/2017 Overview: Required prolonged neuromuscular blockade with deep sedation secondary to increased WOB, breath stacking and hypoxia After discontinuation, he has had difficultly controlling agitation, likely opioid withdrawl. Had required precedex, fentanyl patch, prn haldol, seroquel Currently on seroquel, fentanyl patch Has been awake and alert, very cooperative -- continue on decreased TID seroquel dosing of 25mg TID and 150 mg qHS -- continue with fentanyl patch Acute post-operative pain 10/05/20152016 Overview: Was on prolonged fentanyl infusion d/t vent asynchrony, pain from liver tx Now transitioned to patch, infusion stopped 11/13 -- continue fentanyl patch (100mcg) Renal insufficiency 10/05/2015 10/08/2015 Overview: Secondary to hypotension Baseline Scr 0.66, now down to 0.83 Making good UO -- monitor renal indices Stress hyperglycemia 10/05/2015 04/22/2017 Overview: -- Adequate glycemic control with SSI Moderate protein-calorie malnutrition 10/05/2015 04/22/2017 Overview: Tolerating goal tube feeds Osmolite 1.2 @ 70 Prealbumin 26, transferrin 185 -- continue TF with fiber and beneprotien and full liquid diet -- nutrition following Abdominal distension 09/12/2015 04/22/2017 Overview: - concerning given weight gain of 30 lb from 09/04 - CT abdomen on last admission showed tissue edema> ascites, concern for third spacing in the abdominal wall tissue - no evidence of active infection, however, currently pancytopenia - was taking Lasix 20 mg PO every other day and spironolactone 50 mg PO daily - Liver vascular U/S demonstrates patent vasculature Plan - diuresis with Lasix 40 mg PO BID and spironolactone 100 mg PO daily - paracentesis as needed for respiratory function Liver transplant candidate 08/17/201504/22 Pain disorder with psychological factors 015 12/23/2021 Hyperammonemia 07/20/2015 04/22/2017 SUMMARY 06/14/2015 09/12/2015 Overview: Mr. 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 SOB (shortness of breath) 06/14/20152016 Overview: Started after dry run Possibly irritated by catheter? Systolic murmur also heard Chest x-ray and CT PE negative Currently at baseline New valvular lesion vs clot? -Echocardiogram -Doppler study -Observe for now Hepatic cirrhosis 06/14/2015 04/22/2017 Overview: #Cirrhosis -Continue lactulose, rifaximin -Continue aldactone Infection of other external stoma of urinary tra ct 05/17/2015 04/22/2017 UTI (lower urinary tract infection) 04/08/2015 04/22/2017 Overview: Was complaining of dysuria. UA positive with leukoesterase and Was started of ceftriaxone at OSH. Received 2 dosages here yesterday and one today. Will finish treatment for complicated UTI at home with cipro 500BID Hepatic encephalopathy 04/08/2015 7 Overview: On lactulose zinc Rifaximin Fever, low grade 11/03/2014 04/22/2017 Overview: Low grade fever on presentation UA clean Plan - Blood cx ngtd - afebrile since SUMMARY 08/31/2014 07/24/2016 Overview: The patient is a 50 yo male with a past medical history of HCV/ETOH Liver Cirrhosis c/b hepatopulmonary syndrome, hypersplenism, HE, Grade I EV, pulmonary sarcoidosis who presents with acute weight gain, abdominal distension, and SOB Fever and chills 08/31/2014 04/22/2017 Overview: Tmax 38.7 this AM; pt reports recent history of tooth extraction One time fever yesterday Received 2 time cefazolin after PFO closure. Plan: -UA, BCxx2 - NG till now -will hold off on abx for now and observe Retained dental root 08/15/2014 12/23/2021 Hepatopulmonary syndrome 03/12/2014 018 Overview: History of hepatopulmonary syndrome with ~45.2% shunt, pulmonary sarcoidosis requiring home O2 6-10 liters and mild pulmonary HTN Preop PaO2 ~55 on RA Profound hypoxia postoperatively requiring max vent support with high PEEP, heavy sedation/paralytics, flolan, nitric oxide (off since 10/26) Course c/b Right lung Pneumothorax, resp failure requiring trach 11/01 Decompensation 11/04 secondary to narcotic withdrawal +/- sepsis-->Drastically improved with fentanyl infusion, ATB. Updated echo 11/15 with EF 55%, normal RV Currently doing great, on continuous trach collar with passy etta valve, and diet -- Goal sats 85% -- Continue TC, PMV, OOB Bicytopenia 03/12/2014 04/22/2017 Overview: He has plat count of 20k and WCC of around 1000 His neutropenia is likely 2/2 to INF His thrombocytopenia is likley 2/2 to his cirrhosis Plan: Watch, transfuse plats if <10k or bleeding Pancytopenia 03/11/2014 03/12/2014 Hypoxemia 03/11/2014 10/15/2015 Overview: Due to underlying HPS Now on 100% Fio2 with last PaO2 60, Nitric oxide started 10/08, at 40 PPM. O2 sats maintaining in 80s CTS consulted for ECMO evaluation -- Given profound thrombocytopenia and grave condition ECMO not recommended -- Continue nitric oxide -- lung protective ventilation -- increased I:E ratio (at 2.4:1), paralyze with rocuronium if needed -- goal of O2 sats in 70s permissible COPD (chronic obstructive pulmonary disease) 03/12/2014 Coagulopathy 03/11/2014 04/22/2017 Syncope 01/03/2014 04/22/2017 Epididymitis 11/24/2013 04/22/2017 Testalgia 11/24/2013 04/22/2017 Thrombocytopenia 08/20/2009 04/22/2017 Overview: Platelets 96k today, received platelets 10/11 prior to liver biopsy. no obvious bleeding -- monitor CBC, coags -- transfuse as required -- monitor for bleeding -- transfuse plts prior to invasive procedures Hepatitis C 08/20/2009 11/03/2014 Cirrhosis 04/22/2017 Overview: Secondary to alcohol use and HCV complicated by ascites, PSE (on lactulose, rifaximin) and hepatopulmonary syndrome on home O2 s/p OLT on 10/03/15 Concern for rejection (humoral), now s/p thymo, IVIG, plasmapheresis 10/15 and 10/16 completed -hydrocortisone (switched from prednisone) now tapering down - MMF - FK documented as of this encounter (statuses as of 09/15/2022) [facility] History of Past illness Narrative* Problem Noted Date Resolved Date Neck pain 03/11/2022 07/21/2022 Hilar adenopathy 07/09/2018 08/19/2018 Last Assessment & Plan: Assessment: CT A/P on Admission shows Significant subcarinal and bilateral hilar adenopathy on the lower images through the chest. Lymphoproliferative disease suspected He does have a hx of sarcoid But no recent CT chest/CXR to compare. CT chest shows SPLENOMEGALY AND NUMEROUS ENLARGED MEDIASTINAL AND BILATERAL HILAR LYMPH NODES, INCREASED IN SIZE SINCE 2016. THE DIFFERENTIAL DIAGNOSIS INCLUDES SARCOIDOSIS AND LYMPHOPROLIFERATIVE DISEASE. PLAN: -Transfer to [facility] for further evaluation by oncology per ID recommedation. Nausea & vomiting 07/09/2018 07/28/2018 Last Assessment & Plan: Assessment: Patient notes off and on nausea for one month. Also notes worsening control of his reflux symptoms. CTA/P shows significant subcarinal and bilateral hilar adenopathy and new subtle intrahepatic biliary dilatation and common duct dilatation . Obstructing lesion must be excluded, however.Splenic enlargement PLAN: -Increase protonix to 40mg bid -Zofran PRN for N/V -GI consult pending. Cellulitis 07/09/2018 07/13/2018 Abdominal wall cellulitis 12/01/20172021 Last Assessment & Plan: Assessment: Second Episode this year . Likely due to his constant picking of the skin of his abdomen. He is HDS, no leucocytosis,crp 2.6,ESR 2,lactate normal CTA/P shows no abscess nor cellulitis . PLAN: Continue ancef started in the ER. Continue bactrim as scheduled for prophylaxis - due to hx of liver transplant PRN morphine for pain. ID consult (because of his immunocompromised state - hx of liver transplant/ommunesuppresants) Wound care consult (re:open areas on his abdomen due to his scratching) F/up on blood Culture Ventral hernia without obstruction or gangrene 0 03/24/2017 04/22/2017 Lower abdominal pain 07/23/2016 04/22/2017 Dysuria 03/26/2016 07/21/2022 Opioid withdrawal 11/09/2015 04/22/2017 Overview: Thursday with opioid withdrawal after attempted discontinuation of fentanyl Resolution of symptoms after re-starting fentanyl -- Continue fentanyl patch with prn IVP fentanyl for breakthrough pain -- Drip stopped 3/2 Respiratory failure, post-operative 10/22/2015 04/22/2017 Overview: Pt intubated for OLT on 10/03/15, remained intubated d/t severe hypoxia (see hepato pulmonary syndrome) 11/01 s/p tracheostomy Very weak and debilitated, profound ICU neuromyopathy Currently improved, toleratingTC, passy etta valve capped -- continue trach collar, PMV Acute pneumothorax 10/17/2015 04/22/2017 Prerenal azotemia 10/17/2015 10/24/2015 Overview: Bun/ Creat ratio now trending down. Hypernatremia resolved -- trend Renal indices -- lasix 20 mg q8 Acute pulmonary embolism 10/17/2015 017 Spontaneous pneumothorax 10/16/2015 017 Overview: Pneumothorax discovered on CT chest 10/15 in setting of high PEEP requirements s/p chest tube placements x2 Last CT removed 11/02 CXR with small persistent Rt. Apical pneumothorax- not appeciated on today's CXR --continue to follow daily CXRs Pneumonia, organism unspecified([phone]) 10/16/2015 11/02/2015 Overview: CT of chest 10/15 shows RLL consolidation suspicious for pneumonia. Completed course of vanco and meropenem continuing micfungin. Sputum culture from 10/09 shows normal respiratory erum. legionella urinary antigen negative --ID following Sepsis due to other etiology 10/15/201505/2017 Overview: Has completed empiric courses of antibiotics for persistent low grade fevers and acute decompensation No obvious source of infection identified per extensive ID workup Vanco d/c 10/25, Meropenem d/c 10/26 11/04 Acute decompensation (fevers 11/05) empiric pip-tazo, vanc, micafungin added--> off since 11/11 (cultures negative) CT chest/ab/pelvis (11/08) with no evidence of infective process -- continue to monitor off ATB Postoperative shock 10/09/2015 04/22/2017 Overview: Shock, hypotension, fevers with increasing leukocytosis in setting of liver transplant, hepatopulmonary syndrome, ARDS, hypoxia. Profound hypoxia requiring nitric oxide therapy. Required low dose levo for BP support, now off. Concern for sepsis, blood cultures negative to date, vanco and zosyn started empirically 10/08. Procalcitonin 1.06. Lacate 1.8 -- Follow cultures -- continue vanco and zosyn -- levo for BP support (avoid fluid boluses if hypotensive) Electrolyte and fluid disorder 10/07/2015 0 04/22/2017 Overview: Hypomagnesemia repleted, hyperphos -- monitor and replete lytes daily -- increase daily PO mag oxide to 800 mg TID New onset seizure 10/05/2015 11/22/2019 Overview: Seizure activity 10/05, BEM supported the dx of cortical dysfunction in the left hemisphere with potential epileptogenicity in the left fronto-central region CT head negative for acute process, neurology consulted, loaded with Keppra Currently alert, follows commands -- weaned to Keppra 500mg bid -- neurology recommending follow up with epilepsy as outpatient ARDS (adult respiratory distress syndrome) 10/0504/22/2017 Overview: Hx of hepatopulmonary syndrome, pulmonary sarcoidosis requiring home O2 6-10 liters Pulmonary HTN with ~45% shunt. Pre-op PaO2 ~55 on RA CXR now with bilateral fluffy infiltrates / ARDS w/ pulmonary edema Desaturates with movement, turning, suctioning. Space = 60% today, with compliance ~45 -- maintain aggressive vent support (100% FiO2, wean PEEP is able as higher PEEP to increase shunt) -- lung protective strategies - Vt 6ml/kg ideal body weight (~350ml) -- trach on hold while unstable -- lasix TID -- Continue Nitric oxide -- increased I:E ratio -- avoid fluid boluses for hypotension - use pressors if needed -- sputum sent for culture Postoperative anemia due to acute blood loss 04/22/2017 Overview: S/P liver transplant with EBL 17 L c/b thrombocytopenia, coagulopahty and OP bleeding requiring intra-op nasal and pharyngeal packing Last transfused 10/08 2U PRBCs. 10/10: ENT removed nasal merocel. Clots in both nasopharyxes. No reinsertion of nasal tubes. -- monitor CBC and coags -- transfuse as required Agitation requiring sedation protocol 10/05/2015 04/22/2017 Overview: Required prolonged neuromuscular blockade with deep sedation secondary to increased WOB, breath stacking and hypoxia After discontinuation, he has had difficultly controlling agitation, likely opioid withdrawl. Had required precedex, fentanyl patch, prn haldol, seroquel Currently on seroquel, fentanyl patch Has been awake and alert, very cooperative -- continue on decreased TID seroquel dosing of 25mg TID and 150 mg qHS -- continue with fentanyl patch Acute post-operative pain 10/05/20152016 Overview: Was on prolonged fentanyl infusion d/t vent asynchrony, pain from liver tx Now transitioned to patch, infusion stopped 11/13 -- continue fentanyl patch (100mcg) Renal insufficiency 10/05/2015 10/08/2015 Overview: Secondary to hypotension Baseline Scr 0.66, now down to 0.83 Making good UO -- monitor renal indices Stress hyperglycemia 10/05/2015 04/22/2017 Overview: -- Adequate glycemic control with SSI Moderate protein-calorie malnutrition 10/05/2015 04/22/2017 Overview: Tolerating goal tube feeds Osmolite 1.2 @ 70 Prealbumin 26, transferrin 185 -- continue TF with fiber and beneprotien and full liquid diet -- nutrition following Abdominal distension 09/12/2015 04/22/2017 Overview: - concerning given weight gain of 30 lb from 09/04 - CT abdomen on last admission showed tissue edema> ascites, concern for third spacing in the abdominal wall tissue - no evidence of active infection, however, currently pancytopenia - was taking Lasix 20 mg PO every other day and spironolactone 50 mg PO daily - Liver vascular U/S demonstrates patent vasculature Plan - diuresis with Lasix 40 mg PO BID and spironolactone 100 mg PO daily - paracentesis as needed for respiratory function Liver transplant candidate 08/17/201504/22 Pain disorder with psychological factors 015 12/23/2021 Hyperammonemia 07/20/2015 04/22/2017 SUMMARY 06/14/2015 09/12/2015 Overview: Mr. 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 SOB (shortness of breath) 06/14/20152016 Overview: Started after dry run Possibly irritated by catheter? Systolic murmur also heard Chest x-ray and CT PE negative Currently at baseline New valvular lesion vs clot? -Echocardiogram -Doppler study -Observe for now Hepatic cirrhosis 06/14/2015 04/22/2017 Overview: #Cirrhosis -Continue lactulose, rifaximin -Continue aldactone Infection of other external stoma of urinary tra ct 05/17/2015 04/22/2017 UTI (lower urinary tract infection) 04/08/2015 04/22/2017 Overview: Was complaining of dysuria. UA positive with leukoesterase and Was started of ceftriaxone at OSH. Received 2 dosages here yesterday and one today. Will finish treatment for complicated UTI at home with cipro 500BID Hepatic encephalopathy 04/08/2015 7 Overview: On lactulose zinc Rifaximin Fever, low grade 11/03/2014 04/22/2017 Overview: Low grade fever on presentation UA clean Plan - Blood cx ngtd - afebrile since SUMMARY 08/31/2014 07/24/2016 Overview: The patient is a 50 yo male with a past medical history of HCV/ETOH Liver Cirrhosis c/b hepatopulmonary syndrome, hypersplenism, HE, Grade I EV, pulmonary sarcoidosis who presents with acute weight gain, abdominal distension, and SOB Fever and chills 08/31/2014 04/22/2017 Overview: Tmax 38.7 this AM; pt reports recent history of tooth extraction One time fever yesterday Received 2 time cefazolin after PFO closure. Plan: -UA, BCxx2 - NG till now -will hold off on abx for now and observe Retained dental root 08/15/2014 12/23/2021 Hepatopulmonary syndrome 03/12/2014 12/06/2 018 Overview: History of hepatopulmonary syndrome with ~45.2% shunt, pulmonary sarcoidosis requiring home O2 6-10 liters and mild pulmonary HTN Preop PaO2 ~55 on RA Profound hypoxia postoperatively requiring max vent support with high PEEP, heavy sedation/paralytics, flolan, nitric oxide (off since 10/26) Course c/b Right lung Pneumothorax, resp failure requiring trach 11/01 Decompensation 11/04 secondary to narcotic withdrawal +/- sepsis-->Drastically improved with fentanyl infusion, ATB. Updated echo 11/15 with EF 55%, normal RV Currently doing great, on continuous trach collar with passy etta valve, and diet -- Goal sats 85% -- Continue TC, PMV, OOB Bicytopenia 03/12/2014 04/22/2017 Overview: He has plat count of 20k and WCC of around 1000 His neutropenia is likely 2/2 to INF His thrombocytopenia is likley 2/2 to his cirrhosis Plan: Watch, transfuse plats if <10k or bleeding Pancytopenia 03/11/2014 03/12/2014 Hypoxemia 03/11/2014 10/15/2015 Overview: Due to underlying HPS Now on 100% Fio2 with last PaO2 60, Nitric oxide started 10/08, at 40 PPM. O2 sats maintaining in 80s CTS consulted for ECMO evaluation -- Given profound thrombocytopenia and grave condition ECMO not recommended -- Continue nitric oxide -- lung protective ventilation -- increased I:E ratio (at 2.4:1), paralyze with rocuronium if needed -- goal of O2 sats in 70s permissible COPD (chronic obstructive pulmonary disease) 03/12/2014 Coagulopathy 03/11/2014 04/22/2017 Syncope 01/03/2014 04/22/2017 Epididymitis 11/24/2013 04/22/2017 Testalgia 11/24/2013 04/22/2017 Thrombocytopenia 08/20/2009 04/22/2017 Overview: Platelets 96k today, received platelets 10/11 prior to liver biopsy. no obvious bleeding -- monitor CBC, coags -- transfuse as required -- monitor for bleeding -- transfuse plts prior to invasive procedures Hepatitis C 08/20/2009 11/03/2014 Cirrhosis 04/22/2017 Overview: Secondary to alcohol use and HCV complicated by ascites, PSE (on lactulose, rifaximin) and hepatopulmonary syndrome on home O2 s/p OLT on 10/03/15 Concern for rejection (humoral), now s/p thymo, IVIG, plasmapheresis 10/15 and 10/16 completed -hydrocortisone (switched from prednisone) now tapering down - MMF - FK documented as of this encounter (statuses as of 09/24/2022) [facility]06[facility] History of Past illness Narrative* Problem Noted Date Resolved Date Neck pain 03/11/2022 07/21/2022 Hilar adenopathy 07/09/2018 08/19/2018 Last Assessment & Plan: Assessment: CT A/P on Admission shows Significant subcarinal and bilateral hilar adenopathy on the lower images through the chest. Lymphoproliferative disease suspected He does have a hx of sarcoid But no recent CT chest/CXR to compare. CT chest shows SPLENOMEGALY AND NUMEROUS ENLARGED MEDIASTINAL AND BILATERAL HILAR LYMPH NODES, INCREASED IN SIZE SINCE 2016. THE DIFFERENTIAL DIAGNOSIS INCLUDES SARCOIDOSIS AND LYMPHOPROLIFERATIVE DISEASE. PLAN: -Transfer to [facility] for further evaluation by oncology per ID recommedation. Nausea & vomiting 07/09/2018 07/28/2018 Last Assessment & Plan: Assessment: Patient notes off and on nausea for one month. Also notes worsening control of his reflux symptoms. CTA/P shows significant subcarinal and bilateral hilar adenopathy and new subtle intrahepatic biliary dilatation and common duct dilatation . Obstructing lesion must be excluded, however.Splenic enlargement PLAN: -Increase protonix to 40mg bid -Zofran PRN for N/V -GI consult pending. Cellulitis 07/09/2018 07/13/2018 Abdominal wall cellulitis 12/01/20172021 Last Assessment & Plan: Assessment: Second Episode this year . Likely due to his constant picking of the skin of his abdomen. He is HDS, no leucocytosis,crp 2.6,ESR 2,lactate normal CTA/P shows no abscess nor cellulitis . PLAN: Continue ancef started in the ER. Continue bactrim as scheduled for prophylaxis - due to hx of liver transplant PRN morphine for pain. ID consult (because of his immunocompromised state - hx of liver transplant/ommunesuppresants) Wound care consult (re:open areas on his abdomen due to his scratching) F/up on blood Culture Ventral hernia without obstruction or gangrene 0 03/24/2017 04/22/2017 Lower abdominal pain 07/23/2016 04/22/2017 Dysuria 03/26/2016 07/21/2022 Opioid withdrawal 11/09/2015 04/22/2017 Overview: Thursday with opioid withdrawal after attempted discontinuation of fentanyl Resolution of symptoms after re-starting fentanyl -- Continue fentanyl patch with prn IVP fentanyl for breakthrough pain -- Drip stopped 3/2 Respiratory failure, post-operative 10/22/2015 04/22/2017 Overview: Pt intubated for OLT on 10/03/15, remained intubated d/t severe hypoxia (see hepato pulmonary syndrome) 11/01 s/p tracheostomy Very weak and debilitated, profound ICU neuromyopathy Currently improved, toleratingTC, passy etta valve capped -- continue trach collar, PMV Acute pneumothorax 10/17/2015 04/22/2017 Prerenal azotemia 10/17/2015 10/24/2015 Overview: Bun/ Creat ratio now trending down. Hypernatremia resolved -- trend Renal indices -- lasix 20 mg q8 Acute pulmonary embolism 10/17/2015 017 Spontaneous pneumothorax 10/16/2015 017 Overview: Pneumothorax discovered on CT chest 10/15 in setting of high PEEP requirements s/p chest tube placements x2 Last CT removed 11/02 CXR with small persistent Rt. Apical pneumothorax- not appeciated on today's CXR --continue to follow daily CXRs Pneumonia, organism unspecified([phone]) 10/16/2015 11/02/2015 Overview: CT of chest 10/15 shows RLL consolidation suspicious for pneumonia. Completed course of vanco and meropenem continuing micfungin. Sputum culture from 10/09 shows normal respiratory erum. legionella urinary antigen negative --ID following Sepsis due to other etiology 10/15/201505/2017 Overview: Has completed empiric courses of antibiotics for persistent low grade fevers and acute decompensation No obvious source of infection identified per extensive ID workup Vanco d/c 10/25, Meropenem d/c 10/26 11/04 Acute decompensation (fevers 11/05) empiric pip-tazo, vanc, micafungin added--> off since 11/11 (cultures negative) CT chest/ab/pelvis (11/08) with no evidence of infective process -- continue to monitor off ATB Postoperative shock 10/09/2015 04/22/2017 Overview: Shock, hypotension, fevers with increasing leukocytosis in setting of liver transplant, hepatopulmonary syndrome, ARDS, hypoxia. Profound hypoxia requiring nitric oxide therapy. Required low dose levo for BP support, now off. Concern for sepsis, blood cultures negative to date, vanco and zosyn started empirically 10/08. Procalcitonin 1.06. Lacate 1.8 -- Follow cultures -- continue vanco and zosyn -- levo for BP support (avoid fluid boluses if hypotensive) Electrolyte and fluid disorder 10/07/2015 0 04/22/2017 Overview: Hypomagnesemia repleted, hyperphos -- monitor and replete lytes daily -- increase daily PO mag oxide to 800 mg TID New onset seizure 10/05/2015 11/22/2019 Overview: Seizure activity 10/05, BEM supported the dx of cortical dysfunction in the left hemisphere with potential epileptogenicity in the left fronto-central region CT head negative for acute process, neurology consulted, loaded with Keppra Currently alert, follows commands -- weaned to Keppra 500mg bid -- neurology recommending follow up with epilepsy as outpatient ARDS (adult respiratory distress syndrome) 10/0504/22/2017 Overview: Hx of hepatopulmonary syndrome, pulmonary sarcoidosis requiring home O2 6-10 liters Pulmonary HTN with ~45% shunt. Pre-op PaO2 ~55 on RA CXR now with bilateral fluffy infiltrates / ARDS w/ pulmonary edema Desaturates with movement, turning, suctioning. Space = 60% today, with compliance ~45 -- maintain aggressive vent support (100% FiO2, wean PEEP is able as higher PEEP to increase shunt) -- lung protective strategies - Vt 6ml/kg ideal body weight (~350ml) -- trach on hold while unstable -- lasix TID -- Continue Nitric oxide -- increased I:E ratio -- avoid fluid boluses for hypotension - use pressors if needed -- sputum sent for culture Postoperative anemia due to acute blood loss 04/22/2017 Overview: S/P liver transplant with EBL 17 L c/b thrombocytopenia, coagulopahty and OP bleeding requiring intra-op nasal and pharyngeal packing Last transfused 10/08 2U PRBCs. 10/10: ENT removed nasal merocel. Clots in both nasopharyxes. No reinsertion of nasal tubes. -- monitor CBC and coags -- transfuse as required Agitation requiring sedation protocol 10/05/2015 04/22/2017 Overview: Required prolonged neuromuscular blockade with deep sedation secondary to increased WOB, breath stacking and hypoxia After discontinuation, he has had difficultly controlling agitation, likely opioid withdrawl. Had required precedex, fentanyl patch, prn haldol, seroquel Currently on seroquel, fentanyl patch Has been awake and alert, very cooperative -- continue on decreased TID seroquel dosing of 25mg TID and 150 mg qHS -- continue with fentanyl patch Acute post-operative pain 10/05/20152016 Overview: Was on prolonged fentanyl infusion d/t vent asynchrony, pain from liver tx Now transitioned to patch, infusion stopped 11/13 -- continue fentanyl patch (100mcg) Renal insufficiency 10/05/2015 10/08/2015 Overview: Secondary to hypotension Baseline Scr 0.66, now down to 0.83 Making good UO -- monitor renal indices Stress hyperglycemia 10/05/2015 04/22/2017 Overview: -- Adequate glycemic control with SSI Moderate protein-calorie malnutrition 10/05/2015 04/22/2017 Overview: Tolerating goal tube feeds Osmolite 1.2 @ 70 Prealbumin 26, transferrin 185 -- continue TF with fiber and beneprotien and full liquid diet -- nutrition following Abdominal distension 09/12/2015 04/22/2017 Overview: - concerning given weight gain of 30 lb from 09/04 - CT abdomen on last admission showed tissue edema> ascites, concern for third spacing in the abdominal wall tissue - no evidence of active infection, however, currently pancytopenia - was taking Lasix 20 mg PO every other day and spironolactone 50 mg PO daily - Liver vascular U/S demonstrates patent vasculature Plan - diuresis with Lasix 40 mg PO BID and spironolactone 100 mg PO daily - paracentesis as needed for respiratory function Liver transplant candidate 08/17/201504/22 Pain disorder with psychological factors 015 12/23/2021 Hyperammonemia 07/20/2015 04/22/2017 SUMMARY 06/14/2015 09/12/2015 Overview: Mr. 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 SOB (shortness of breath) 06/14/20152016 Overview: Started after dry run Possibly irritated by catheter? Systolic murmur also heard Chest x-ray and CT PE negative Currently at baseline New valvular lesion vs clot? -Echocardiogram -Doppler study -Observe for now Hepatic cirrhosis 06/14/2015 04/22/2017 Overview: #Cirrhosis -Continue lactulose, rifaximin -Continue aldactone Infection of other external stoma of urinary tra ct 05/17/2015 04/22/2017 UTI (lower urinary tract infection) 04/08/2015 04/22/2017 Overview: Was complaining of dysuria. UA positive with leukoesterase and Was started of ceftriaxone at OSH. Received 2 dosages here yesterday and one today. Will finish treatment for complicated UTI at home with cipro [id number] Hepatic encephalopathy 04/08/2015 7 Overview: On lactulose zinc Rifaximin Fever, low grade 11/03/2014 04/22/2017 Overview: Low grade fever on presentation UA clean Plan - Blood cx ngtd - afebrile since SUMMARY 08/31/2014 07/24/2016 Overview: The patient is a 50 yo male with a past medical history of HCV/ETOH Liver Cirrhosis c/b hepatopulmonary syndrome, hypersplenism, HE, Grade I EV, pulmonary sarcoidosis who presents with acute weight gain, abdominal distension, and SOB Fever and chills 08/31/2014 04/22/2017 Overview: Tmax 38.7 this AM; pt reports recent history of tooth extraction One time fever yesterday Received 2 time cefazolin after PFO closure. Plan: -UA, BCxx2 - NG till now -will hold off on abx for now and observe Retained dental root 08/15/2014 12/23/2021 Hepatopulmonary syndrome 03/12/2014 018 Overview: History of hepatopulmonary syndrome with ~45.2% shunt, pulmonary sarcoidosis requiring home O2 6-10 liters and mild pulmonary HTN Preop PaO2 ~55 on RA Profound hypoxia postoperatively requiring max vent support with high PEEP, heavy sedation/paralytics, flolan, nitric oxide (off since 10/26) Course c/b Right lung Pneumothorax, resp failure requiring trach 11/01 Decompensation 11/04 secondary to narcotic withdrawal +/- sepsis-->Drastically improved with fentanyl infusion, ATB. Updated echo 11/15 with EF 55%, normal RV Currently doing great, on continuous trach collar with passy etta valve, and diet -- Goal sats 85% -- Continue TC, PMV, OOB Bicytopenia 03/12/2014 04/22/2017 Overview: He has plat count of 20k and WCC of around 1000 His neutropenia is likely 2/2 to INF His thrombocytopenia is likley 2/2 to his cirrhosis Plan: Watch, transfuse plats if <10k or bleeding Pancytopenia 03/11/2014 03/12/2014 Hypoxemia 03/11/2014 10/15/2015 Overview: Due to underlying HPS Now on 100% Fio2 with last PaO2 60, Nitric oxide started 10/08, at 40 PPM. O2 sats maintaining in 80s CTS consulted for ECMO evaluation -- Given profound thrombocytopenia and grave condition ECMO not recommended -- Continue nitric oxide -- lung protective ventilation -- increased I:E ratio (at 2.4:1), paralyze with rocuronium if needed -- goal of O2 sats in 70s permissible COPD (chronic obstructive pulmonary disease) 03/12/2014 Coagulopathy 03/11/2014 04/22/2017 Syncope 01/03/2014 04/22/2017 Epididymitis 11/24/2013 04/22/2017 Testalgia 11/24/2013 04/22/2017 Thrombocytopenia 08/20/2009 04/22/2017 Overview: Platelets 96k today, received platelets 10/11 prior to liver biopsy. no obvious bleeding -- monitor CBC, coags -- transfuse as required -- monitor for bleeding -- transfuse plts prior to invasive procedures Hepatitis C 08/20/2009 11/03/2014 Cirrhosis 04/22/2017 Overview: Secondary to alcohol use and HCV complicated by ascites, PSE (on lactulose, rifaximin) and hepatopulmonary syndrome on home O2 s/p OLT on 10/03/15 Concern for rejection (humoral), now s/p thymo, IVIG, plasmapheresis 10/15 and 10/16 completed -hydrocortisone (switched from prednisone) now tapering down - MMF - FK documented as of this encounter (statuses as of 10/17/2022) [facility] History of Past illness Narrative* Problem Noted Date Resolved Date Neck pain 03/11/2022 07/21/2022 Hilar adenopathy 07/09/2018 08/19/2018 Last Assessment & Plan: Assessment: CT A/P on Admission shows Significant subcarinal and bilateral hilar adenopathy on the lower images through the chest. Lymphoproliferative disease suspected He does have a hx of sarcoid But no recent CT chest/CXR to compare. CT chest shows SPLENOMEGALY AND NUMEROUS ENLARGED MEDIASTINAL AND BILATERAL HILAR LYMPH NODES, INCREASED IN SIZE SINCE 2016. THE DIFFERENTIAL DIAGNOSIS INCLUDES SARCOIDOSIS AND LYMPHOPROLIFERATIVE DISEASE. PLAN: -Transfer to [facility] for further evaluation by oncology per ID recommedation. Nausea & vomiting 07/09/2018 07/28/2018 Last Assessment & Plan: Assessment: Patient notes off and on nausea for one month. Also notes worsening control of his reflux symptoms. CTA/P shows significant subcarinal and bilateral hilar adenopathy and new subtle intrahepatic biliary dilatation and common duct dilatation . Obstructing lesion must be excluded, however.Splenic enlargement PLAN: -Increase protonix to 40mg bid -Zofran PRN for N/V -GI consult pending. Cellulitis 07/09/2018 07/13/2018 Abdominal wall cellulitis 12/01/20172021 Last Assessment & Plan: Assessment: Second Episode this year . Likely due to his constant picking of the skin of his abdomen. He is HDS, no leucocytosis,crp 2.6,ESR 2,lactate normal CTA/P shows no abscess nor cellulitis . PLAN: Continue ancef started in the ER. Continue bactrim as scheduled for prophylaxis - due to hx of liver transplant PRN morphine for pain. ID consult (because of his immunocompromised state - hx of liver transplant/ommunesuppresants) Wound care consult (re:open areas on his abdomen due to his scratching) F/up on blood Culture Ventral hernia without obstruction or gangrene 0 03/24/2017 04/22/2017 Lower abdominal pain 07/23/2016 04/22/2017 Dysuria 03/26/2016 07/21/2022 Opioid withdrawal 11/09/2015 04/22/2017 Overview: Thursday with opioid withdrawal after attempted discontinuation of fentanyl Resolution of symptoms after re-starting fentanyl -- Continue fentanyl patch with prn IVP fentanyl for breakthrough pain -- Drip stopped 3/ Respiratory failure, post-operative 10/22/2015 04/22/2017 Overview: Pt intubated for OLT on 10/03/15, remained intubated d/t severe hypoxia (see hepato pulmonary syndrome) 11/01 s/p tracheostomy Very weak and debilitated, profound ICU neuromyopathy Currently improved, toleratingTC, passy etta valve capped -- continue trach collar, PMV Acute pneumothorax 10/17/2015 04/22/2017 Prerenal azotemia 10/17/2015 10/24/2015 Overview: Bun/ Creat ratio now trending down. Hypernatremia resolved -- trend Renal indices -- lasix 20 mg q8 Acute pulmonary embolism 10/17/2015 017 Spontaneous pneumothorax 10/16/2015 017 Overview: Pneumothorax discovered on CT chest 10/15 in setting of high PEEP requirements s/p chest tube placements x2 Last CT removed 11/02 CXR with small persistent Rt. Apical pneumothorax- not appeciated on today's CXR --continue to follow daily CXRs Pneumonia, organism unspecified([phone]) 10/16/2015 11/02/2015 Overview: CT of chest 10/15 shows RLL consolidation suspicious for pneumonia. Completed course of vanco and meropenem continuing micfungin. Sputum culture from 10/09 shows normal respiratory erum. legionella urinary antigen negative --ID following Sepsis due to other etiology 10/15/201505/2017 Overview: Has completed empiric courses of antibiotics for persistent low grade fevers and acute decompensation No obvious source of infection identified per extensive ID workup Vanco d/c 10/25, Meropenem d/c 10/26 11/04 Acute decompensation (fevers 11/05) empiric pip-tazo, vanc, micafungin added--> off since 11/11 (cultures negative) CT chest/ab/pelvis (11/08) with no evidence of infective process -- continue to monitor off ATB Postoperative shock 10/09/2015 04/22/2017 Overview: Shock, hypotension, fevers with increasing leukocytosis in setting of liver transplant, hepatopulmonary syndrome, ARDS, hypoxia. Profound hypoxia requiring nitric oxide therapy. Required low dose levo for BP support, now off. Concern for sepsis, blood cultures negative to date, vanco and zosyn started empirically 10/08. Procalcitonin 1.06. Lacate 1.8 -- Follow cultures -- continue vanco and zosyn -- levo for BP support (avoid fluid boluses if hypotensive) Electrolyte and fluid disorder 10/07/2015 0 04/22/2017 Overview: Hypomagnesemia repleted, hyperphos -- monitor and replete lytes daily -- increase daily PO mag oxide to 800 mg TID New onset seizure 10/05/2015 11/22/2019 Overview: Seizure activity 10/05, BEM supported the dx of cortical dysfunction in the left hemisphere with potential epileptogenicity in the left fronto-central region CT head negative for acute process, neurology consulted, loaded with Keppra Currently alert, follows commands -- weaned to Keppra 500mg bid -- neurology recommending follow up with epilepsy as outpatient ARDS (adult respiratory distress syndrome) 10/0504/22/2017 Overview: Hx of hepatopulmonary syndrome, pulmonary sarcoidosis requiring home O2 6-10 liters Pulmonary HTN with ~45% shunt. Pre-op PaO2 ~55 on RA CXR now with bilateral fluffy infiltrates / ARDS w/ pulmonary edema Desaturates with movement, turning, suctioning. Space = 60% today, with compliance ~45 -- maintain aggressive vent support (100% FiO2, wean PEEP is able as higher PEEP to increase shunt) -- lung protective strategies - Vt 6ml/kg ideal body weight (~350ml) -- trach on hold while unstable -- lasix TID -- Continue Nitric oxide -- increased I:E ratio -- avoid fluid boluses for hypotension - use pressors if needed -- sputum sent for culture Postoperative anemia due to acute blood loss 04/22/2017 Overview: S/P liver transplant with EBL 17 L c/b thrombocytopenia, coagulopahty and OP bleeding requiring intra-op nasal and pharyngeal packing Last transfused 10/08 2U PRBCs. 10/10: ENT removed nasal merocel. Clots in both nasopharyxes. No reinsertion of nasal tubes. -- monitor CBC and coags -- transfuse as required Agitation requiring sedation protocol 10/05/2015 04/22/2017 Overview: Required prolonged neuromuscular blockade with deep sedation secondary to increased WOB, breath stacking and hypoxia After discontinuation, he has had difficultly controlling agitation, likely opioid withdrawl. Had required precedex, fentanyl patch, prn haldol, seroquel Currently on seroquel, fentanyl patch Has been awake and alert, very cooperative -- continue on decreased TID seroquel dosing of 25mg TID and 150 mg qHS -- continue with fentanyl patch Acute post-operative pain 10/05/20152016 Overview: Was on prolonged fentanyl infusion d/t vent asynchrony, pain from liver tx Now transitioned to patch, infusion stopped 11/13 -- continue fentanyl patch (100mcg) Renal insufficiency 10/05/2015 10/08/2015 Overview: Secondary to hypotension Baseline Scr 0.66, now down to 0.83 Making good UO -- monitor renal indices Stress hyperglycemia 10/05/2015 04/22/2017 Overview: -- Adequate glycemic control with SSI Moderate protein-calorie malnutrition 10/05/2015 04/22/2017 Overview: Tolerating goal tube feeds Osmolite 1.2 @ 70 Prealbumin 26, transferrin 185 -- continue TF with fiber and beneprotien and full liquid diet -- nutrition following Abdominal distension 09/12/2015 04/22/2017 Overview: - concerning given weight gain of 30 lb from 09/04 - CT abdomen on last admission showed tissue edema> ascites, concern for third spacing in the abdominal wall tissue - no evidence of active infection, however, currently pancytopenia - was taking Lasix 20 mg PO every other day and spironolactone 50 mg PO daily - Liver vascular U/S demonstrates patent vasculature Plan - diuresis with Lasix 40 mg PO BID and spironolactone 100 mg PO daily - paracentesis as needed for respiratory function Liver transplant candidate 08/17/201504/22 Pain disorder with psychological factors 015 12/23/2021 Chronic abdominal pain 07/20/2015 3 Hyperammonemia 07/20/2015 04/22/2017 SUMMARY 06/14/2015 09/12/2015 Overview: Mr. 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 SOB (shortness of breath) 06/14/20152016 Overview: Started after dry run Possibly irritated by catheter? Systolic murmur also heard Chest x-ray and CT PE negative Currently at baseline New valvular lesion vs clot? -Echocardiogram -Doppler study -Observe for now Hepatic cirrhosis 06/14/2015 04/22/2017 Overview: #Cirrhosis -Continue lactulose, rifaximin -Continue aldactone Infection of other external stoma of urinary tra ct 05/17/2015 04/22/2017 UTI (lower urinary tract infection) 04/08/2015 04/22/2017 Overview: Was complaining of dysuria. UA positive with leukoesterase and Was started of ceftriaxone at OSH. Received 2 dosages here yesterday and one today. Will finish treatment for complicated UTI at home with cipro 500BID Hepatic encephalopathy 04/08/2015 7 Overview: On lactulose zinc Rifaximin Fever, low grade 11/03/2014 04/22/2017 Overview: Low grade fever on presentation UA clean Plan - Blood cx ngtd - afebrile since SUMMARY 08/31/2014 07/24/2016 Overview: The patient is a 50 yo male with a past medical history of HCV/ETOH Liver Cirrhosis c/b hepatopulmonary syndrome, hypersplenism, HE, Grade I EV, pulmonary sarcoidosis who presents with acute weight gain, abdominal distension, and SOB Fever and chills 08/31/2014 04/22/2017 Overview: Tmax 38.7 this AM; pt reports recent history of tooth extraction One time fever yesterday Received 2 time cefazolin after PFO closure. Plan: -UA, BCxx2 - NG till now -will hold off on abx for now and observe Retained dental root 08/15/2014 12/23/2021 Hepatopulmonary syndrome 03/12/2014 018 Overview: History of hepatopulmonary syndrome with ~45.2% shunt, pulmonary sarcoidosis requiring home O2 6-10 liters and mild pulmonary HTN Preop PaO2 ~55 on RA Profound hypoxia postoperatively requiring max vent support with high PEEP, heavy sedation/paralytics, flolan, nitric oxide (off since 10/26) Course c/b Right lung Pneumothorax, resp failure requiring trach 11/01 Decompensation 11/04 secondary to narcotic withdrawal +/- sepsis-->Drastically improved with fentanyl infusion, ATB. Updated echo 11/15 with EF 55%, normal RV Currently doing great, on continuous trach collar with passy etta valve, and diet -- Goal sats 85% -- Continue TC, PMV, OOB Bicytopenia 03/12/2014 04/22/2017 Overview: He has plat count of 20k and WCC of around 1000 His neutropenia is likely 2/2 to INF His thrombocytopenia is likley 2/2 to his cirrhosis Plan: Watch, transfuse plats if <10k or bleeding Pancytopenia 03/11/2014 03/12/2014 Hypoxemia 03/11/2014 10/15/2015 Overview: Due to underlying HPS Now on 100% Fio2 with last PaO2 60, Nitric oxide started 10/08, at 40 PPM. O2 sats maintaining in 80s CTS consulted for ECMO evaluation -- Given profound thrombocytopenia and grave condition ECMO not recommended -- Continue nitric oxide -- lung protective ventilation -- increased I:E ratio (at 2.4:1), paralyze with rocuronium if needed -- goal of O2 sats in 70s permissible COPD (chronic obstructive pulmonary disease) 03/12/2014 Coagulopathy 03/11/2014 04/22/2017 Syncope 01/03/2014 04/22/2017 Epididymitis 11/24/2013 04/22/2017 Testalgia 11/24/2013 04/22/2017 Thrombocytopenia 08/20/2009 04/22/2017 Overview: Platelets 96k today, received platelets 10/11 prior to liver biopsy. no obvious bleeding -- monitor CBC, coags -- transfuse as required -- monitor for bleeding -- transfuse plts prior to invasive procedures Hepatitis C 08/20/2009 11/03/2014 Cirrhosis 04/22/2017 Overview: Secondary to alcohol use and HCV complicated by ascites, PSE (on lactulose, rifaximin) and hepatopulmonary syndrome on home O2 s/p OLT on 10/03/15 Concern for rejection (humoral), now s/p thymo, IVIG, plasmapheresis 10/15 and 10/16 completed -hydrocortisone (switched from prednisone) now tapering down - MMF - FK documented as of this encounter (statuses as of 10/21/2022) [facility] History of Past illness Narrative* Problem Noted Date Resolved Date Neck pain 03/11/2022 07/21/2022 Hilar adenopathy 07/09/2018 08/19/2018 Last Assessment & Plan: Assessment: CT A/P on Admission shows Significant subcarinal and bilateral hilar adenopathy on the lower images through the chest. Lymphoproliferative disease suspected He does have a hx of sarcoid But no recent CT chest/CXR to compare. CT chest shows SPLENOMEGALY AND NUMEROUS ENLARGED MEDIASTINAL AND BILATERAL HILAR LYMPH NODES, INCREASED IN SIZE SINCE 2016. THE DIFFERENTIAL DIAGNOSIS INCLUDES SARCOIDOSIS AND LYMPHOPROLIFERATIVE DISEASE. PLAN: -Transfer to [facility] for further evaluation by oncology per ID recommedation. Nausea & vomiting 07/09/2018 07/28/2018 Last Assessment & Plan: Assessment: Patient notes off and on nausea for one month. Also notes worsening control of his reflux symptoms. CTA/P shows significant subcarinal and bilateral hilar adenopathy and new subtle intrahepatic biliary dilatation and common duct dilatation . Obstructing lesion must be excluded, however.Splenic enlargement PLAN: -Increase protonix to 40mg bid -Zofran PRN for N/V -GI consult pending. Cellulitis 07/09/2018 07/13/2018 Abdominal wall cellulitis 12/01/20172021 Last Assessment & Plan: Assessment: Second Episode this year . Likely due to his constant picking of the skin of his abdomen. He is HDS, no leucocytosis,crp 2.6,ESR 2,lactate normal CTA/P shows no abscess nor cellulitis . PLAN: Continue ancef started in the ER. Continue bactrim as scheduled for prophylaxis - due to hx of liver transplant PRN morphine for pain. ID consult (because of his immunocompromised state - hx of liver transplant/ommunesuppresants) Wound care consult (re:open areas on his abdomen due to his scratching) F/up on blood Culture Ventral hernia without obstruction or gangrene 0 03/24/2017 04/22/2017 Lower abdominal pain 07/23/2016 04/22/2017 Dysuria 03/26/2016 07/21/2022 Opioid withdrawal 11/09/2015 04/22/2017 Overview: Thursday with opioid withdrawal after attempted discontinuation of fentanyl Resolution of symptoms after re-starting fentanyl -- Continue fentanyl patch with prn IVP fentanyl for breakthrough pain -- Drip stopped 3/2 Respiratory failure, post-operative 10/22/2015 04/22/2017 Overview: Pt intubated for OLT on 10/03/15, remained intubated d/t severe hypoxia (see hepato pulmonary syndrome) 11/01 s/p tracheostomy Very weak and debilitated, profound ICU neuromyopathy Currently improved, toleratingTC, passy etta valve capped -- continue trach collar, PMV Acute pneumothorax 10/17/2015 04/22/2017 Prerenal azotemia 10/17/2015 10/24/2015 Overview: Bun/ Creat ratio now trending down. Hypernatremia resolved -- trend Renal indices -- lasix 20 mg q8 Acute pulmonary embolism 10/17/2015 017 Spontaneous pneumothorax 10/16/2015 017 Overview: Pneumothorax discovered on CT chest 10/15 in setting of high PEEP requirements s/p chest tube placements x2 Last CT removed 11/02 CXR with small persistent Rt. Apical pneumothorax- not appeciated on today's CXR --continue to follow daily CXRs Pneumonia, organism unspecified(486) 10/16/2015 11/02/2015 Overview: CT of chest 10/15 shows RLL consolidation suspicious for pneumonia. Completed course of vanco and meropenem continuing micfungin. Sputum culture from 10/09 shows normal respiratory erum. legionella urinary antigen negative --ID following Sepsis due to other etiology 10/15/201505/2017 Overview: Has completed empiric courses of antibiotics for persistent low grade fevers and acute decompensation No obvious source of infection identified per extensive ID workup Vanco d/c 10/25, Meropenem d/c 10/26 11/04 Acute decompensation (fevers 11/05) empiric pip-tazo, vanc, micafungin added--> off since 11/11 (cultures negative) CT chest/ab/pelvis (11/08) with no evidence of infective process -- continue to monitor off ATB Postoperative shock 10/09/2015 04/22/2017 Overview: Shock, hypotension, fevers with increasing leukocytosis in setting of liver transplant, hepatopulmonary syndrome, ARDS, hypoxia. Profound hypoxia requiring nitric oxide therapy. Required low dose levo for BP support, now off. Concern for sepsis, blood cultures negative to date, vanco and zosyn started empirically 10/08. Procalcitonin 1.06. Lacate 1.8 -- Follow cultures -- continue vanco and zosyn -- levo for BP support (avoid fluid boluses if hypotensive) Electrolyte and fluid disorder 10/07/2015 0 04/22/2017 Overview: Hypomagnesemia repleted, hyperphos -- monitor and replete lytes daily -- increase daily PO mag oxide to 800 mg TID New onset seizure 10/05/2015 11/22/2019 Overview: Seizure activity 10/05, BEM supported the dx of cortical dysfunction in the left hemisphere with potential epileptogenicity in the left fronto-central region CT head negative for acute process, neurology consulted, loaded with Keppra Currently alert, follows commands -- weaned to Keppra 500mg bid -- neurology recommending follow up with epilepsy as outpatient ARDS (adult respiratory distress syndrome) 10/0504/22/2017 Overview: Hx of hepatopulmonary syndrome, pulmonary sarcoidosis requiring home O2 6-10 liters Pulmonary HTN with ~45% shunt. Pre-op PaO2 ~55 on RA CXR now with bilateral fluffy infiltrates / ARDS w/ pulmonary edema Desaturates with movement, turning, suctioning. Space = 60% today, with compliance ~45 -- maintain aggressive vent support (100% FiO2, wean PEEP is able as higher PEEP to increase shunt) -- lung protective strategies - Vt 6ml/kg ideal body weight (~350ml) -- trach on hold while unstable -- lasix TID -- Continue Nitric oxide -- increased I:E ratio -- avoid fluid boluses for hypotension - use pressors if needed -- sputum sent for culture Postoperative anemia due to acute blood loss 04/22/2017 Overview: S/P liver transplant with EBL 17 L c/b thrombocytopenia, coagulopahty and OP bleeding requiring intra-op nasal and pharyngeal packing Last transfused 10/08 2U PRBCs. 10/10: ENT removed nasal merocel. Clots in both nasopharyxes. No reinsertion of nasal tubes. -- monitor CBC and coags -- transfuse as required Agitation requiring sedation protocol 10/05/2015 04/22/2017 Overview: Required prolonged neuromuscular blockade with deep sedation secondary to increased WOB, breath stacking and hypoxia After discontinuation, he has had difficultly controlling agitation, likely opioid withdrawl. Had required precedex, fentanyl patch, prn haldol, seroquel Currently on seroquel, fentanyl patch Has been awake and alert, very cooperative -- continue on decreased TID seroquel dosing of 25mg TID and 150 mg qHS -- continue with fentanyl patch Acute post-operative pain 10/05/20152016 Overview: Was on prolonged fentanyl infusion d/t vent asynchrony, pain from liver tx Now transitioned to patch, infusion stopped 11/13 -- continue fentanyl patch (100mcg) Renal insufficiency 10/05/2015 10/08/2015 Overview: Secondary to hypotension Baseline Scr 0.66, now down to 0.83 Making good UO -- monitor renal indices Stress hyperglycemia 10/05/2015 04/22/2017 Overview: -- Adequate glycemic control with SSI Moderate protein-calorie malnutrition 10/05/2015 04/22/2017 Overview: Tolerating goal tube feeds Osmolite 1.2 @ 70 Prealbumin 26, transferrin 185 -- continue TF with fiber and beneprotien and full liquid diet -- nutrition following Abdominal distension 09/12/2015 04/22/2017 Overview: - concerning given weight gain of 30 lb from 09/04 - CT abdomen on last admission showed tissue edema> ascites, concern for third spacing in the abdominal wall tissue - no evidence of active infection, however, currently pancytopenia - was taking Lasix 20 mg PO every other day and spironolactone 50 mg PO daily - Liver vascular U/S demonstrates patent vasculature Plan - diuresis with Lasix 40 mg PO BID and spironolactone 100 mg PO daily - paracentesis as needed for respiratory function Liver transplant candidate 08/17/201504/22 Pain disorder with psychological factors 015 12/23/2021 Chronic abdominal pain 07/20/2015 3 Hyperammonemia 07/20/2015 04/22/2017 SUMMARY 06/14/2015 09/12/2015 Overview: Mr. 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 SOB (shortness of breath) 06/14/20152016 Overview: Started after dry run Possibly irritated by catheter? Systolic murmur also heard Chest x-ray and CT PE negative Currently at baseline New valvular lesion vs clot? -Echocardiogram -Doppler study -Observe for now Hepatic cirrhosis 06/14/2015 04/22/2017 Overview: #Cirrhosis -Continue lactulose, rifaximin -Continue aldactone Infection of other external stoma of urinary tra ct 05/17/2015 04/22/2017 UTI (lower urinary tract infection) 04/08/2015 04/22/2017 Overview: Was complaining of dysuria. UA positive with leukoesterase and Was started of ceftriaxone at OSH. Received 2 dosages here yesterday and one today. Will finish treatment for complicated UTI at home with cipro 500BID Hepatic encephalopathy 04/08/2015 7 Overview: On lactulose zinc Rifaximin Fever, low grade 11/03/2014 04/22/2017 Overview: Low grade fever on presentation UA clean Plan - Blood cx ngtd - afebrile since SUMMARY 08/31/2014 07/24/2016 Overview: The patient is a 50 yo male with a past medical history of HCV/ETOH Liver Cirrhosis c/b hepatopulmonary syndrome, hypersplenism, HE, Grade I EV, pulmonary sarcoidosis who presents with acute weight gain, abdominal distension, and SOB Fever and chills 08/31/2014 04/22/2017 Overview: Tmax 38.7 this AM; pt reports recent history of tooth extraction One time fever yesterday Received 2 time cefazolin after PFO closure. Plan: -UA, BCxx2 - NG till now -will hold off on abx for now and observe Retained dental root 08/15/2014 12/23/2021 Hepatopulmonary syndrome 03/12/2014 018 Overview: History of hepatopulmonary syndrome with ~45.2% shunt, pulmonary sarcoidosis requiring home O2 6-10 liters and mild pulmonary HTN Preop PaO2 ~55 on RA Profound hypoxia postoperatively requiring max vent support with high PEEP, heavy sedation/paralytics, flolan, nitric oxide (off since 10/26) Course c/b Right lung Pneumothorax, resp failure requiring trach 11/01 Decompensation 11/04 secondary to narcotic withdrawal +/- sepsis-->Drastically improved with fentanyl infusion, ATB. Updated echo 11/15 with EF 55%, normal RV Currently doing great, on continuous trach collar with passy etta valve, and diet -- Goal sats 85% -- Continue TC, PMV, OOB Bicytopenia 03/12/2014 04/22/2017 Overview: He has plat count of 20k and WCC of around 1000 His neutropenia is likely 2/2 to INF His thrombocytopenia is likley 2/2 to his cirrhosis Plan: Watch, transfuse plats if <10k or bleeding Pancytopenia 03/11/2014 03/12/2014 Hypoxemia 03/11/2014 10/15/2015 Overview: Due to underlying HPS Now on 100% Fio2 with last PaO2 60, Nitric oxide started 10/08, at 40 PPM. O2 sats maintaining in 80s CTS consulted for ECMO evaluation -- Given profound thrombocytopenia and grave condition ECMO not recommended -- Continue nitric oxide -- lung protective ventilation -- increased I:E ratio (at 2.4:1), paralyze with rocuronium if needed -- goal of O2 sats in 70s permissible COPD (chronic obstructive pulmonary disease) 03/12/2014 Coagulopathy 03/11/2014 04/22/2017 Syncope 01/03/2014 04/22/2017 Epididymitis 11/24/2013 04/22/2017 Testalgia 11/24/2013 04/22/2017 Thrombocytopenia 08/20/2009 04/22/2017 Overview: Platelets 96k today, received platelets 10/11 prior to liver biopsy. no obvious bleeding -- monitor CBC, coags -- transfuse as required -- monitor for bleeding -- transfuse plts prior to invasive procedures Hepatitis C 08/20/2009 11/03/2014 Cirrhosis 04/22/2017 Overview: Secondary to alcohol use and HCV complicated by ascites, PSE (on lactulose, rifaximin) and hepatopulmonary syndrome on home O2 s/p OLT on 10/03/15 Concern for rejection (humoral), now s/p thymo, IVIG, plasmapheresis 10/15 and 10/16 completed -hydrocortisone (switched from prednisone) now tapering down - MMF - FK documented as of this encounter (statuses as of 10/22/2022) [facility] History of Past illness Narrative* Problem Noted Date Resolved Date Neck pain 03/11/2022 07/21/2022 Hilar adenopathy 07/09/2018 08/19/2018 Last Assessment & Plan: Assessment: CT A/P on Admission shows Significant subcarinal and bilateral hilar adenopathy on the lower images through the chest. Lymphoproliferative disease suspected He does have a hx of sarcoid But no recent CT chest/CXR to compare. CT chest shows SPLENOMEGALY AND NUMEROUS ENLARGED MEDIASTINAL AND BILATERAL HILAR LYMPH NODES, INCREASED IN SIZE SINCE 2016. THE DIFFERENTIAL DIAGNOSIS INCLUDES SARCOIDOSIS AND LYMPHOPROLIFERATIVE DISEASE. PLAN: -Transfer to [facility] for further evaluation by oncology per ID recommedation. Nausea & vomiting 07/09/2018 07/28/2018 Last Assessment & Plan: Assessment: Patient notes off and on nausea for one month. Also notes worsening control of his reflux symptoms. CTA/P shows significant subcarinal and bilateral hilar adenopathy and new subtle intrahepatic biliary dilatation and common duct dilatation . Obstructing lesion must be excluded, however.Splenic enlargement PLAN: -Increase protonix to 40mg bid -Zofran PRN for N/V -GI consult pending. Cellulitis 07/09/2018 07/13/2018 Abdominal wall cellulitis 12/01/20172021 Last Assessment & Plan: Assessment: Second Episode this year . Likely due to his constant picking of the skin of his abdomen. He is HDS, no leucocytosis,crp 2.6,ESR 2,lactate normal CTA/P shows no abscess nor cellulitis . PLAN: Continue ancef started in the ER. Continue bactrim as scheduled for prophylaxis - due to hx of liver transplant PRN morphine for pain. ID consult (because of his immunocompromised state - hx of liver transplant/ommunesuppresants) Wound care consult (re:open areas on his abdomen due to his scratching) F/up on blood Culture Ventral hernia without obstruction or gangrene 0 03/24/2017 04/22/2017 Lower abdominal pain 07/23/2016 04/22/2017 Dysuria 03/26/2016 07/21/2022 Opioid withdrawal 11/09/2015 04/22/2017 Overview: Thursday with opioid withdrawal after attempted discontinuation of fentanyl Resolution of symptoms after re-starting fentanyl -- Continue fentanyl patch with prn IVP fentanyl for breakthrough pain -- Drip stopped 3/2 Respiratory failure, post-operative 10/22/2015 04/22/2017 Overview: Pt intubated for OLT on 10/03/15, remained intubated d/t severe hypoxia (see hepato pulmonary syndrome) 11/01 s/p tracheostomy Very weak and debilitated, profound ICU neuromyopathy Currently improved, toleratingTC, passy etta valve capped -- continue trach collar, PMV Acute pneumothorax 10/17/2015 04/22/2017 Prerenal azotemia 10/17/2015 10/24/2015 Overview: Bun/ Creat ratio now trending down. Hypernatremia resolved -- trend Renal indices -- lasix 20 mg q8 Acute pulmonary embolism 10/17/2015 017 Spontaneous pneumothorax 10/16/2015 017 Overview: Pneumothorax discovered on CT chest 10/15 in setting of high PEEP requirements s/p chest tube placements x2 Last CT removed 11/02 CXR with small persistent Rt. Apical pneumothorax- not appeciated on today's CXR --continue to follow daily CXRs Pneumonia, organism unspecified([phone]) 10/16/2015 11/02/2015 Overview: CT of chest 10/15 shows RLL consolidation suspicious for pneumonia. Completed course of vanco and meropenem continuing micfungin. Sputum culture from 10/09 shows normal respiratory erum. legionella urinary antigen negative --ID following Sepsis due to other etiology 10/15/201505/2017 Overview: Has completed empiric courses of antibiotics for persistent low grade fevers and acute decompensation No obvious source of infection identified per extensive ID workup Vanco d/c 10/25, Meropenem d/c 10/26 11/04 Acute decompensation (fevers 11/05) empiric pip-tazo, vanc, micafungin added--> off since 11/11 (cultures negative) CT chest/ab/pelvis (11/08) with no evidence of infective process -- continue to monitor off ATB Postoperative shock 10/09/2015 04/22/2017 Overview: Shock, hypotension, fevers with increasing leukocytosis in setting of liver transplant, hepatopulmonary syndrome, ARDS, hypoxia. Profound hypoxia requiring nitric oxide therapy. Required low dose levo for BP support, now off. Concern for sepsis, blood cultures negative to date, vanco and zosyn started empirically 10/08. Procalcitonin 1.06. Lacate 1.8 -- Follow cultures -- continue vanco and zosyn -- levo for BP support (avoid fluid boluses if hypotensive) Electrolyte and fluid disorder 10/07/2015 0 04/22/2017 Overview: Hypomagnesemia repleted, hyperphos -- monitor and replete lytes daily -- increase daily PO mag oxide to 800 mg TID New onset seizure 10/05/2015 11/22/2019 Overview: Seizure activity 10/05, BEM supported the dx of cortical dysfunction in the left hemisphere with potential epileptogenicity in the left fronto-central region CT head negative for acute process, neurology consulted, loaded with Keppra Currently alert, follows commands -- weaned to Keppra 500mg bid -- neurology recommending follow up with epilepsy as outpatient ARDS (adult respiratory distress syndrome) 10/0504/22/2017 Overview: Hx of hepatopulmonary syndrome, pulmonary sarcoidosis requiring home O2 6-10 liters Pulmonary HTN with ~45% shunt. Pre-op PaO2 ~55 on RA CXR now with bilateral fluffy infiltrates / ARDS w/ pulmonary edema Desaturates with movement, turning, suctioning. Space = 60% today, with compliance ~45 -- maintain aggressive vent support (100% FiO2, wean PEEP is able as higher PEEP to increase shunt) -- lung protective strategies - Vt 6ml/kg ideal body weight (~350ml) -- trach on hold while unstable -- lasix TID -- Continue Nitric oxide -- increased I:E ratio -- avoid fluid boluses for hypotension - use pressors if needed -- sputum sent for culture Postoperative anemia due to acute blood loss 04/22/2017 Overview: S/P liver transplant with EBL 17 L c/b thrombocytopenia, coagulopahty and OP bleeding requiring intra-op nasal and pharyngeal packing Last transfused 10/08 2U PRBCs. 10/10: ENT removed nasal merocel. Clots in both nasopharyxes. No reinsertion of nasal tubes. -- monitor CBC and coags -- transfuse as required Agitation requiring sedation protocol 10/05/2015 04/22/2017 Overview: Required prolonged neuromuscular blockade with deep sedation secondary to increased WOB, breath stacking and hypoxia After discontinuation, he has had difficultly controlling agitation, likely opioid withdrawl. Had required precedex, fentanyl patch, prn haldol, seroquel Currently on seroquel, fentanyl patch Has been awake and alert, very cooperative -- continue on decreased TID seroquel dosing of 25mg TID and 150 mg qHS -- continue with fentanyl patch Acute post-operative pain 10/05/20152016 Overview: Was on prolonged fentanyl infusion d/t vent asynchrony, pain from liver tx Now transitioned to patch, infusion stopped 11/13 -- continue fentanyl patch (100mcg) Renal insufficiency 10/05/2015 10/08/2015 Overview: Secondary to hypotension Baseline Scr 0.66, now down to 0.83 Making good UO -- monitor renal indices Stress hyperglycemia 10/05/2015 04/22/2017 Overview: -- Adequate glycemic control with SSI Moderate protein-calorie malnutrition 10/05/2015 04/22/2017 Overview: Tolerating goal tube feeds Osmolite 1.2 @ 70 Prealbumin 26, transferrin 185 -- continue TF with fiber and beneprotien and full liquid diet -- nutrition following Abdominal distension 09/12/2015 04/22/2017 Overview: - concerning given weight gain of 30 lb from 09/04 - CT abdomen on last admission showed tissue edema> ascites, concern for third spacing in the abdominal wall tissue - no evidence of active infection, however, currently pancytopenia - was taking Lasix 20 mg PO every other day and spironolactone 50 mg PO daily - Liver vascular U/S demonstrates patent vasculature Plan - diuresis with Lasix 40 mg PO BID and spironolactone 100 mg PO daily - paracentesis as needed for respiratory function Liver transplant candidate 08/17/201504/22 Pain disorder with psychological factors 015 12/23/2021 Chronic abdominal pain 07/20/2015 3 Hyperammonemia 07/20/2015 04/22/2017 SUMMARY 06/14/2015 09/12/2015 Overview: Mr. 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 SOB (shortness of breath) 06/14/20152016 Overview: Started after dry run Possibly irritated by catheter? Systolic murmur also heard Chest x-ray and CT PE negative Currently at baseline New valvular lesion vs clot? -Echocardiogram -Doppler study -Observe for now Hepatic cirrhosis 06/14/2015 04/22/2017 Overview: #Cirrhosis -Continue lactulose, rifaximin -Continue aldactone Infection of other external stoma of urinary tra ct 05/17/2015 04/22/2017 UTI (lower urinary tract infection) 04/08/2015 04/22/2017 Overview: Was complaining of dysuria. UA positive with leukoesterase and Was started of ceftriaxone at OSH. Received 2 dosages here yesterday and one today. Will finish treatment for complicated UTI at home with cipro 500BID Hepatic encephalopathy 04/08/2015 7 Overview: On lactulose zinc Rifaximin Fever, low grade 11/03/2014 04/22/2017 Overview: Low grade fever on presentation UA clean Plan - Blood cx ngtd - afebrile since SUMMARY 08/31/2014 07/24/2016 Overview: The patient is a 50 yo male with a past medical history of HCV/ETOH Liver Cirrhosis c/b hepatopulmonary syndrome, hypersplenism, HE, Grade I EV, pulmonary sarcoidosis who presents with acute weight gain, abdominal distension, and SOB Fever and chills 08/31/2014 04/22/2017 Overview: Tmax 38.7 this AM; pt reports recent history of tooth extraction One time fever yesterday Received 2 time cefazolin after PFO closure. Plan: -UA, BCxx2 - NG till now -will hold off on abx for now and observe Retained dental root 08/15/2014 12/23/2021 Hepatopulmonary syndrome 03/12/2014 018 Overview: History of hepatopulmonary syndrome with ~45.2% shunt, pulmonary sarcoidosis requiring home O2 6-10 liters and mild pulmonary HTN Preop PaO2 ~55 on RA Profound hypoxia postoperatively requiring max vent support with high PEEP, heavy sedation/paralytics, flolan, nitric oxide (off since 10/26) Course c/b Right lung Pneumothorax, resp failure requiring trach 11/01 Decompensation 11/04 secondary to narcotic withdrawal +/- sepsis-->Drastically improved with fentanyl infusion, ATB. Updated echo 11/15 with EF 55%, normal RV Currently doing great, on continuous trach collar with passy etta valve, and diet -- Goal sats 85% -- Continue TC, PMV, OOB Bicytopenia 03/12/2014 04/22/2017 Overview: He has plat count of 20k and WCC of around 1000 His neutropenia is likely 2/2 to INF His thrombocytopenia is likley 2/2 to his cirrhosis Plan: Watch, transfuse plats if <10k or bleeding Pancytopenia 03/11/2014 03/12/2014 Hypoxemia 03/11/2014 10/15/2015 Overview: Due to underlying HPS Now on 100% Fio2 with last PaO2 60, Nitric oxide started 10/08, at 40 PPM. O2 sats maintaining in 80s CTS consulted for ECMO evaluation -- Given profound thrombocytopenia and grave condition ECMO not recommended -- Continue nitric oxide -- lung protective ventilation -- increased I:E ratio (at 2.4:1), paralyze with rocuronium if needed -- goal of O2 sats in 70s permissible COPD (chronic obstructive pulmonary disease) 03/12/2014 Coagulopathy 03/11/2014 04/22/2017 Syncope 01/03/2014 04/22/2017 Epididymitis 11/24/2013 04/22/2017 Testalgia 11/24/2013 04/22/2017 Thrombocytopenia 08/20/2009 04/22/2017 Overview: Platelets 96k today, received platelets 10/11 prior to liver biopsy. no obvious bleeding -- monitor CBC, coags -- transfuse as required -- monitor for bleeding -- transfuse plts prior to invasive procedures Hepatitis C 08/20/2009 11/03/2014 Cirrhosis 04/22/2017 Overview: Secondary to alcohol use and HCV complicated by ascites, PSE (on lactulose, rifaximin) and hepatopulmonary syndrome on home O2 s/p OLT on 10/03/15 Concern for rejection (humoral), now s/p thymo, IVIG, plasmapheresis 10/15 and 10/16 completed -hydrocortisone (switched from prednisone) now tapering down - MMF - FK documented as of this encounter (statuses as of 10/22/2022) [facility]06[facility] History of Past illness Narrative* Problem Noted Date Resolved Date Neck pain 03/11/2022 07/21/2022 Hilar adenopathy 07/09/2018 08/19/2018 Last Assessment & Plan: Assessment: CT A/P on Admission shows Significant subcarinal and bilateral hilar adenopathy on the lower images through the chest. Lymphoproliferative disease suspected He does have a hx of sarcoid But no recent CT chest/CXR to compare. CT chest shows SPLENOMEGALY AND NUMEROUS ENLARGED MEDIASTINAL AND BILATERAL HILAR LYMPH NODES, INCREASED IN SIZE SINCE 2016. THE DIFFERENTIAL DIAGNOSIS INCLUDES SARCOIDOSIS AND LYMPHOPROLIFERATIVE DISEASE. PLAN: -Transfer to [facility] for further evaluation by oncology per ID recommedation. Nausea & vomiting 07/09/2018 07/28/2018 Last Assessment & Plan: Assessment: Patient notes off and on nausea for one month. Also notes worsening control of his reflux symptoms. CTA/P shows significant subcarinal and bilateral hilar adenopathy and new subtle intrahepatic biliary dilatation and common duct dilatation . Obstructing lesion must be excluded, however.Splenic enlargement PLAN: -Increase protonix to 40mg bid -Zofran PRN for N/V -GI consult pending. Cellulitis 07/09/2018 07/13/2018 Abdominal wall cellulitis 12/01/20172021 Last Assessment & Plan: Assessment: Second Episode this year . Likely due to his constant picking of the skin of his abdomen. He is HDS, no leucocytosis,crp 2.6,ESR 2,lactate normal CTA/P shows no abscess nor cellulitis . PLAN: Continue ancef started in the ER. Continue bactrim as scheduled for prophylaxis - due to hx of liver transplant PRN morphine for pain. ID consult (because of his immunocompromised state - hx of liver transplant/ommunesuppresants) Wound care consult (re:open areas on his abdomen due to his scratching) F/up on blood Culture Ventral hernia without obstruction or gangrene 0 03/24/2017 04/22/2017 Lower abdominal pain 07/23/2016 04/22/2017 Dysuria 03/26/2016 07/21/2022 Opioid withdrawal 11/09/2015 04/22/2017 Overview: Thursday with opioid withdrawal after attempted discontinuation of fentanyl Resolution of symptoms after re-starting fentanyl -- Continue fentanyl patch with prn IVP fentanyl for breakthrough pain -- Drip stopped 3/2 Respiratory failure, post-operative 10/22/2015 04/22/2017 Overview: Pt intubated for OLT on 10/03/15, remained intubated d/t severe hypoxia (see hepato pulmonary syndrome) 11/01 s/p tracheostomy Very weak and debilitated, profound ICU neuromyopathy Currently improved, toleratingTC, passy etta valve capped -- continue trach collar, PMV Acute pneumothorax 10/17/2015 04/22/2017 Prerenal azotemia 10/17/2015 10/24/2015 Overview: Bun/ Creat ratio now trending down. Hypernatremia resolved -- trend Renal indices -- lasix 20 mg q8 Acute pulmonary embolism 10/17/2015 017 Spontaneous pneumothorax 10/16/2015 017 Overview: Pneumothorax discovered on CT chest 10/15 in setting of high PEEP requirements s/p chest tube placements x2 Last CT removed 11/02 CXR with small persistent Rt. Apical pneumothorax- not appeciated on today's CXR --continue to follow daily CXRs Pneumonia, organism unspecified(486) 10/16/2015 11/02/2015 Overview: CT of chest 10/15 shows RLL consolidation suspicious for pneumonia. Completed course of vanco and meropenem continuing micfungin. Sputum culture from 10/09 shows normal respiratory erum. legionella urinary antigen negative --ID following Sepsis due to other etiology 10/15/201505/2017 Overview: Has completed empiric courses of antibiotics for persistent low grade fevers and acute decompensation No obvious source of infection identified per extensive ID workup Vanco d/c 10/25, Meropenem d/c 10/26 11/04 Acute decompensation (fevers 11/05) empiric pip-tazo, vanc, micafungin added--> off since 11/11 (cultures negative) CT chest/ab/pelvis (11/08) with no evidence of infective process -- continue to monitor off ATB Postoperative shock 10/09/2015 04/22/2017 Overview: Shock, hypotension, fevers with increasing leukocytosis in setting of liver transplant, hepatopulmonary syndrome, ARDS, hypoxia. Profound hypoxia requiring nitric oxide therapy. Required low dose levo for BP support, now off. Concern for sepsis, blood cultures negative to date, vanco and zosyn started empirically 10/08. Procalcitonin 1.06. Lacate 1.8 -- Follow cultures -- continue vanco and zosyn -- levo for BP support (avoid fluid boluses if hypotensive) Electrolyte and fluid disorder 10/07/2015 0 04/22/2017 Overview: Hypomagnesemia repleted, hyperphos -- monitor and replete lytes daily -- increase daily PO mag oxide to 800 mg TID New onset seizure 10/05/2015 11/22/2019 Overview: Seizure activity 10/05, BEM supported the dx of cortical dysfunction in the left hemisphere with potential epileptogenicity in the left fronto-central region CT head negative for acute process, neurology consulted, loaded with Keppra Currently alert, follows commands -- weaned to Keppra 500mg bid -- neurology recommending follow up with epilepsy as outpatient ARDS (adult respiratory distress syndrome) 10/0504/22/2017 Overview: Hx of hepatopulmonary syndrome, pulmonary sarcoidosis requiring home O2 6-10 liters Pulmonary HTN with ~45% shunt. Pre-op PaO2 ~55 on RA CXR now with bilateral fluffy infiltrates / ARDS w/ pulmonary edema Desaturates with movement, turning, suctioning. Space = 60% today, with compliance ~45 -- maintain aggressive vent support (100% FiO2, wean PEEP is able as higher PEEP to increase shunt) -- lung protective strategies - Vt 6ml/kg ideal body weight (~350ml) -- trach on hold while unstable -- lasix TID -- Continue Nitric oxide -- increased I:E ratio -- avoid fluid boluses for hypotension - use pressors if needed -- sputum sent for culture Postoperative anemia due to acute blood loss 04/22/2017 Overview: S/P liver transplant with EBL 17 L c/b thrombocytopenia, coagulopahty and OP bleeding requiring intra-op nasal and pharyngeal packing Last transfused 10/08 2U PRBCs. 10/10: ENT removed nasal merocel. Clots in both nasopharyxes. No reinsertion of nasal tubes. -- monitor CBC and coags -- transfuse as required Agitation requiring sedation protocol 10/05/2015 04/22/2017 Overview: Required prolonged neuromuscular blockade with deep sedation secondary to increased WOB, breath stacking and hypoxia After discontinuation, he has had difficultly controlling agitation, likely opioid withdrawl. Had required precedex, fentanyl patch, prn haldol, seroquel Currently on seroquel, fentanyl patch Has been awake and alert, very cooperative -- continue on decreased TID seroquel dosing of 25mg TID and 150 mg qHS -- continue with fentanyl patch Acute post-operative pain 10/05/20152016 Overview: Was on prolonged fentanyl infusion d/t vent asynchrony, pain from liver tx Now transitioned to patch, infusion stopped 11/13 -- continue fentanyl patch (100mcg) Renal insufficiency 10/05/2015 10/08/2015 Overview: Secondary to hypotension Baseline Scr 0.66, now down to 0.83 Making good UO -- monitor renal indices Stress hyperglycemia 10/05/2015 04/22/2017 Overview: -- Adequate glycemic control with SSI Moderate protein-calorie malnutrition 10/05/2015 04/22/2017 Overview: Tolerating goal tube feeds Osmolite 1.2 @ 70 Prealbumin 26, transferrin 185 -- continue TF with fiber and beneprotien and full liquid diet -- nutrition following Abdominal distension 09/12/2015 04/22/2017 Overview: - concerning given weight gain of 30 lb from 09/04 - CT abdomen on last admission showed tissue edema> ascites, concern for third spacing in the abdominal wall tissue - no evidence of active infection, however, currently pancytopenia - was taking Lasix 20 mg PO every other day and spironolactone 50 mg PO daily - Liver vascular U/S demonstrates patent vasculature Plan - diuresis with Lasix 40 mg PO BID and spironolactone 100 mg PO daily - paracentesis as needed for respiratory function Liver transplant candidate 08/17/201504/22 Pain disorder with psychological factors 015 12/23/2021 Chronic abdominal pain 07/20/2015 3 Hyperammonemia 07/20/2015 04/22/2017 SUMMARY 06/14/2015 09/12/2015 Overview: Mr. 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 SOB (shortness of breath) 06/14/20152016 Overview: Started after dry run Possibly irritated by catheter? Systolic murmur also heard Chest x-ray and CT PE negative Currently at baseline New valvular lesion vs clot? -Echocardiogram -Doppler study -Observe for now Hepatic cirrhosis 06/14/2015 04/22/2017 Overview: #Cirrhosis -Continue lactulose, rifaximin -Continue aldactone Infection of other external stoma of urinary tra ct 05/17/2015 04/22/2017 UTI (lower urinary tract infection) 04/08/2015 04/22/2017 Overview: Was complaining of dysuria. UA positive with leukoesterase and Was started of ceftriaxone at OSH. Received 2 dosages here yesterday and one today. Will finish treatment for complicated UTI at home with cipro 500BID Hepatic encephalopathy 04/08/2015 7 Overview: On lactulose zinc Rifaximin Fever, low grade 11/03/2014 04/22/2017 Overview: Low grade fever on presentation UA clean Plan - Blood cx ngtd - afebrile since SUMMARY 08/31/2014 07/24/2016 Overview: The patient is a 50 yo male with a past medical history of HCV/ETOH Liver Cirrhosis c/b hepatopulmonary syndrome, hypersplenism, HE, Grade I EV, pulmonary sarcoidosis who presents with acute weight gain, abdominal distension, and SOB Fever and chills 08/31/2014 04/22/2017 Overview: Tmax 38.7 this AM; pt reports recent history of tooth extraction One time fever yesterday Received 2 time cefazolin after PFO closure. Plan: -UA, BCxx2 - NG till now -will hold off on abx for now and observe Retained dental root 08/15/2014 12/23/2021 Hepatopulmonary syndrome 03/12/2014 018 Overview: History of hepatopulmonary syndrome with ~45.2% shunt, pulmonary sarcoidosis requiring home O2 6-10 liters and mild pulmonary HTN Preop PaO2 ~55 on RA Profound hypoxia postoperatively requiring max vent support with high PEEP, heavy sedation/paralytics, flolan, nitric oxide (off since 10/26) Course c/b Right lung Pneumothorax, resp failure requiring trach 11/01 Decompensation 11/04 secondary to narcotic withdrawal +/- sepsis-->Drastically improved with fentanyl infusion, ATB. Updated echo 11/15 with EF 55%, normal RV Currently doing great, on continuous trach collar with passy etta valve, and diet -- Goal sats 85% -- Continue TC, PMV, OOB Bicytopenia 03/12/2014 04/22/2017 Overview: He has plat count of 20k and WCC of around 1000 His neutropenia is likely 2/2 to INF His thrombocytopenia is likley 2/2 to his cirrhosis Plan: Watch, transfuse plats if <10k or bleeding Pancytopenia 03/11/2014 03/12/2014 Hypoxemia 03/11/2014 10/15/2015 Overview: Due to underlying HPS Now on 100% Fio2 with last PaO2 60, Nitric oxide started 10/08, at 40 PPM. O2 sats maintaining in 80s CTS consulted for ECMO evaluation -- Given profound thrombocytopenia and grave condition ECMO not recommended -- Continue nitric oxide -- lung protective ventilation -- increased I:E ratio (at 2.4:1), paralyze with rocuronium if needed -- goal of O2 sats in 70s permissible COPD (chronic obstructive pulmonary disease) 03/12/2014 Coagulopathy 03/11/2014 04/22/2017 Syncope 01/03/2014 04/22/2017 Epididymitis 11/24/2013 04/22/2017 Testalgia 11/24/2013 04/22/2017 Thrombocytopenia 08/20/2009 04/22/2017 Overview: Platelets 96k today, received platelets 10/11 prior to liver biopsy. no obvious bleeding -- monitor CBC, coags -- transfuse as required -- monitor for bleeding -- transfuse plts prior to invasive procedures Hepatitis C 08/20/2009 11/03/2014 Cirrhosis 04/22/2017 Overview: Secondary to alcohol use and HCV complicated by ascites, PSE (on lactulose, rifaximin) and hepatopulmonary syndrome on home O2 s/p OLT on 10/03/15 Concern for rejection (humoral), now s/p thymo, IVIG, plasmapheresis 10/15 and 10/16 completed -hydrocortisone (switched from prednisone) now tapering down - MMF - FK documented as of this encounter (statuses as of 12/03/2022) [facility] History of Past illness Narrative* Problem Noted Date Resolved Date Neck pain 03/11/2022 07/21/2022 Hilar adenopathy 07/09/2018 08/19/2018 Last Assessment & Plan: Assessment: CT A/P on Admission shows Significant subcarinal and bilateral hilar adenopathy on the lower images through the chest. Lymphoproliferative disease suspected He does have a hx of sarcoid But no recent CT chest/CXR to compare. CT chest shows SPLENOMEGALY AND NUMEROUS ENLARGED MEDIASTINAL AND BILATERAL HILAR LYMPH NODES, INCREASED IN SIZE SINCE 2016. THE DIFFERENTIAL DIAGNOSIS INCLUDES SARCOIDOSIS AND LYMPHOPROLIFERATIVE DISEASE. PLAN: -Transfer to [facility] for further evaluation by oncology per ID recommedation. Nausea & vomiting 07/09/2018 07/28/2018 Last Assessment & Plan: Assessment: Patient notes off and on nausea for one month. Also notes worsening control of his reflux symptoms. CTA/P shows significant subcarinal and bilateral hilar adenopathy and new subtle intrahepatic biliary dilatation and common duct dilatation . Obstructing lesion must be excluded, however.Splenic enlargement PLAN: -Increase protonix to 40mg bid -Zofran PRN for N/V -GI consult pending. Cellulitis 07/09/2018 07/13/2018 Abdominal wall cellulitis 12/01/20172021 Last Assessment & Plan: Assessment: Second Episode this year . Likely due to his constant picking of the skin of his abdomen. He is HDS, no leucocytosis,crp 2.6,ESR 2,lactate normal CTA/P shows no abscess nor cellulitis . PLAN: Continue ancef started in the ER. Continue bactrim as scheduled for prophylaxis - due to hx of liver transplant PRN morphine for pain. ID consult (because of his immunocompromised state - hx of liver transplant/ommunesuppresants) Wound care consult (re:open areas on his abdomen due to his scratching) F/up on blood Culture Ventral hernia without obstruction or gangrene 0 03/24/2017 04/22/2017 Lower abdominal pain 07/23/2016 04/22/2017 Dysuria 03/26/2016 07/21/2022 Opioid withdrawal 11/09/2015 04/22/2017 Overview: Thursday with opioid withdrawal after attempted discontinuation of fentanyl Resolution of symptoms after re-starting fentanyl -- Continue fentanyl patch with prn IVP fentanyl for breakthrough pain -- Drip stopped 3/ Respiratory failure, post-operative 10/22/2015 04/22/2017 Overview: Pt intubated for OLT on 10/03/15, remained intubated d/t severe hypoxia (see hepato pulmonary syndrome) 11/01 s/p tracheostomy Very weak and debilitated, profound ICU neuromyopathy Currently improved, toleratingTC, passy etta valve capped -- continue trach collar, PMV Acute pneumothorax 10/17/2015 04/22/2017 Prerenal azotemia 10/17/2015 10/24/2015 Overview: Bun/ Creat ratio now trending down. Hypernatremia resolved -- trend Renal indices -- lasix 20 mg q8 Acute pulmonary embolism 10/17/2015 017 Spontaneous pneumothorax 10/16/2015 017 Overview: Pneumothorax discovered on CT chest 10/15 in setting of high PEEP requirements s/p chest tube placements x2 Last CT removed 11/02 CXR with small persistent Rt. Apical pneumothorax- not appeciated on today's CXR --continue to follow daily CXRs Pneumonia, organism unspecified([phone]) 10/16/2015 11/02/2015 Overview: CT of chest 10/15 shows RLL consolidation suspicious for pneumonia. Completed course of vanco and meropenem continuing micfungin. Sputum culture from 10/09 shows normal respiratory erum. legionella urinary antigen negative --ID following Sepsis due to other etiology 10/15/201505/2017 Overview: Has completed empiric courses of antibiotics for persistent low grade fevers and acute decompensation No obvious source of infection identified per extensive ID workup Vanco d/c 10/25, Meropenem d/c 10/26 11/04 Acute decompensation (fevers 11/05) empiric pip-tazo, vanc, micafungin added--> off since 11/11 (cultures negative) CT chest/ab/pelvis (11/08) with no evidence of infective process -- continue to monitor off ATB Postoperative shock 10/09/2015 04/22/2017 Overview: Shock, hypotension, fevers with increasing leukocytosis in setting of liver transplant, hepatopulmonary syndrome, ARDS, hypoxia. Profound hypoxia requiring nitric oxide therapy. Required low dose levo for BP support, now off. Concern for sepsis, blood cultures negative to date, vanco and zosyn started empirically 10/08. Procalcitonin 1.06. Lacate 1.8 -- Follow cultures -- continue vanco and zosyn -- levo for BP support (avoid fluid boluses if hypotensive) Electrolyte and fluid disorder 10/07/2015 0 04/22/2017 Overview: Hypomagnesemia repleted, hyperphos -- monitor and replete lytes daily -- increase daily PO mag oxide to 800 mg TID New onset seizure 10/05/2015 11/22/2019 Overview: Seizure activity 10/05, BEM supported the dx of cortical dysfunction in the left hemisphere with potential epileptogenicity in the left fronto-central region CT head negative for acute process, neurology consulted, loaded with Keppra Currently alert, follows commands -- weaned to Keppra 500mg bid -- neurology recommending follow up with epilepsy as outpatient ARDS (adult respiratory distress syndrome) 10/0504/22/2017 Overview: Hx of hepatopulmonary syndrome, pulmonary sarcoidosis requiring home O2 6-10 liters Pulmonary HTN with ~45% shunt. Pre-op PaO2 ~55 on RA CXR now with bilateral fluffy infiltrates / ARDS w/ pulmonary edema Desaturates with movement, turning, suctioning. Space = 60% today, with compliance ~45 -- maintain aggressive vent support (100% FiO2, wean PEEP is able as higher PEEP to increase shunt) -- lung protective strategies - Vt 6ml/kg ideal body weight (~350ml) -- trach on hold while unstable -- lasix TID -- Continue Nitric oxide -- increased I:E ratio -- avoid fluid boluses for hypotension - use pressors if needed -- sputum sent for culture Postoperative anemia due to acute blood loss 04/22/2017 Overview: S/P liver transplant with EBL 17 L c/b thrombocytopenia, coagulopahty and OP bleeding requiring intra-op nasal and pharyngeal packing Last transfused 10/08 2U PRBCs. 10/10: ENT removed nasal merocel. Clots in both nasopharyxes. No reinsertion of nasal tubes. -- monitor CBC and coags -- transfuse as required Agitation requiring sedation protocol 10/05/2015 04/22/2017 Overview: Required prolonged neuromuscular blockade with deep sedation secondary to increased WOB, breath stacking and hypoxia After discontinuation, he has had difficultly controlling agitation, likely opioid withdrawl. Had required precedex, fentanyl patch, prn haldol, seroquel Currently on seroquel, fentanyl patch Has been awake and alert, very cooperative -- continue on decreased TID seroquel dosing of 25mg TID and 150 mg qHS -- continue with fentanyl patch Acute post-operative pain 10/05/20152016 Overview: Was on prolonged fentanyl infusion d/t vent asynchrony, pain from liver tx Now transitioned to patch, infusion stopped 11/13 -- continue fentanyl patch (100mcg) Renal insufficiency 10/05/2015 10/08/2015 Overview: Secondary to hypotension Baseline Scr 0.66, now down to 0.83 Making good UO -- monitor renal indices Stress hyperglycemia 10/05/2015 04/22/2017 Overview: -- Adequate glycemic control with SSI Moderate protein-calorie malnutrition 10/05/2015 04/22/2017 Overview: Tolerating goal tube feeds Osmolite 1.2 @ 70 Prealbumin 26, transferrin 185 -- continue TF with fiber and beneprotien and full liquid diet -- nutrition following Abdominal distension 09/12/2015 04/22/2017 Overview: - concerning given weight gain of 30 lb from 09/04 - CT abdomen on last admission showed tissue edema> ascites, concern for third spacing in the abdominal wall tissue - no evidence of active infection, however, currently pancytopenia - was taking Lasix 20 mg PO every other day and spironolactone 50 mg PO daily - Liver vascular U/S demonstrates patent vasculature Plan - diuresis with Lasix 40 mg PO BID and spironolactone 100 mg PO daily - paracentesis as needed for respiratory function Liver transplant candidate 08/17/201504/22 Pain disorder with psychological factors 015 12/23/2021 Chronic abdominal pain 07/20/2015 3 Hyperammonemia 07/20/2015 04/22/2017 SUMMARY 06/14/2015 09/12/2015 Overview: Mr. 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 SOB (shortness of breath) 06/14/20152016 Overview: Started after dry run Possibly irritated by catheter? Systolic murmur also heard Chest x-ray and CT PE negative Currently at baseline New valvular lesion vs clot? -Echocardiogram -Doppler study -Observe for now Hepatic cirrhosis 06/14/2015 04/22/2017 Overview: #Cirrhosis -Continue lactulose, rifaximin -Continue aldactone Infection of other external stoma of urinary tra ct 05/17/2015 04/22/2017 UTI (lower urinary tract infection) 04/08/2015 04/22/2017 Overview: Was complaining of dysuria. UA positive with leukoesterase and Was started of ceftriaxone at OSH. Received 2 dosages here yesterday and one today. Will finish treatment for complicated UTI at home with cipro 500BID Hepatic encephalopathy 04/08/2015 7 Overview: On lactulose zinc Rifaximin Fever, low grade 11/03/2014 04/22/2017 Overview: Low grade fever on presentation UA clean Plan - Blood cx ngtd - afebrile since SUMMARY 08/31/2014 07/24/2016 Overview: The patient is a 50 yo male with a past medical history of HCV/ETOH Liver Cirrhosis c/b hepatopulmonary syndrome, hypersplenism, HE, Grade I EV, pulmonary sarcoidosis who presents with acute weight gain, abdominal distension, and SOB Fever and chills 08/31/2014 04/22/2017 Overview: Tmax 38.7 this AM; pt reports recent history of tooth extraction One time fever yesterday Received 2 time cefazolin after PFO closure. Plan: -UA, BCxx2 - NG till now -will hold off on abx for now and observe Retained dental root 08/15/2014 12/23/2021 Hepatopulmonary syndrome 03/12/2014 018 Overview: History of hepatopulmonary syndrome with ~45.2% shunt, pulmonary sarcoidosis requiring home O2 6-10 liters and mild pulmonary HTN Preop PaO2 ~55 on RA Profound hypoxia postoperatively requiring max vent support with high PEEP, heavy sedation/paralytics, flolan, nitric oxide (off since 10/26) Course c/b Right lung Pneumothorax, resp failure requiring trach 11/01 Decompensation 11/04 secondary to narcotic withdrawal +/- sepsis-->Drastically improved with fentanyl infusion, ATB. Updated echo 11/15 with EF 55%, normal RV Currently doing great, on continuous trach collar with passy etta valve, and diet -- Goal sats 85% -- Continue TC, PMV, OOB Bicytopenia 03/12/2014 04/22/2017 Overview: He has plat count of 20k and WCC of around 1000 His neutropenia is likely 2/2 to INF His thrombocytopenia is likley 2/2 to his cirrhosis Plan: Watch, transfuse plats if <10k or bleeding Pancytopenia 03/11/2014 03/12/2014 Hypoxemia 03/11/2014 10/15/2015 Overview: Due to underlying HPS Now on 100% Fio2 with last PaO2 60, Nitric oxide started 10/08, at 40 PPM. O2 sats maintaining in 80s CTS consulted for ECMO evaluation -- Given profound thrombocytopenia and grave condition ECMO not recommended -- Continue nitric oxide -- lung protective ventilation -- increased I:E ratio (at 2.4:1), paralyze with rocuronium if needed -- goal of O2 sats in 70s permissible COPD (chronic obstructive pulmonary disease) 03/12/2014 Coagulopathy 03/11/2014 04/22/2017 Syncope 01/03/2014 04/22/2017 Epididymitis 11/24/2013 04/22/2017 Testalgia 11/24/2013 04/22/2017 Thrombocytopenia 08/20/2009 04/22/2017 Overview: Platelets 96k today, received platelets 10/11 prior to liver biopsy. no obvious bleeding -- monitor CBC, coags -- transfuse as required -- monitor for bleeding -- transfuse plts prior to invasive procedures Hepatitis C 08/20/2009 11/03/2014 Cirrhosis 04/22/2017 Overview: Secondary to alcohol use and HCV complicated by ascites, PSE (on lactulose, rifaximin) and hepatopulmonary syndrome on home O2 s/p OLT on 10/03/15 Concern for rejection (humoral), now s/p thymo, IVIG, plasmapheresis 10/15 and 10/16 completed -hydrocortisone (switched from prednisone) now tapering down - MMF - FK documented as of this encounter (statuses as of 01/01/2023) [facility] History of Past illness Narrative* Problem Noted Date Resolved Date Neck pain 03/11/2022 07/21/2022 Hilar adenopathy 07/09/2018 08/19/2018 Last Assessment & Plan: Assessment: CT A/P on Admission shows Significant subcarinal and bilateral hilar adenopathy on the lower images through the chest. Lymphoproliferative disease suspected He does have a hx of sarcoid But no recent CT chest/CXR to compare. CT chest shows SPLENOMEGALY AND NUMEROUS ENLARGED MEDIASTINAL AND BILATERAL HILAR LYMPH NODES, INCREASED IN SIZE SINCE 2016. THE DIFFERENTIAL DIAGNOSIS INCLUDES SARCOIDOSIS AND LYMPHOPROLIFERATIVE DISEASE. PLAN: -Transfer to [facility] for further evaluation by oncology per ID recommedation. Nausea & vomiting 07/09/2018 07/28/2018 Last Assessment & Plan: Assessment: Patient notes off and on nausea for one month. Also notes worsening control of his reflux symptoms. CTA/P shows significant subcarinal and bilateral hilar adenopathy and new subtle intrahepatic biliary dilatation and common duct dilatation . Obstructing lesion must be excluded, however.Splenic enlargement PLAN: -Increase protonix to 40mg bid -Zofran PRN for N/V -GI consult pending. Cellulitis 07/09/2018 07/13/2018 Abdominal wall cellulitis 12/01/20172021 Last Assessment & Plan: Assessment: Second Episode this year . Likely due to his constant picking of the skin of his abdomen. He is HDS, no leucocytosis,crp 2.6,ESR 2,lactate normal CTA/P shows no abscess nor cellulitis . PLAN: Continue ancef started in the ER. Continue bactrim as scheduled for prophylaxis - due to hx of liver transplant PRN morphine for pain. ID consult (because of his immunocompromised state - hx of liver transplant/ommunesuppresants) Wound care consult (re:open areas on his abdomen due to his scratching) F/up on blood Culture Ventral hernia without obstruction or gangrene 0 03/24/2017 04/22/2017 Lower abdominal pain 07/23/2016 04/22/2017 Dysuria 03/26/2016 07/21/2022 Opioid withdrawal 11/09/2015 04/22/2017 Overview: Thursday with opioid withdrawal after attempted discontinuation of fentanyl Resolution of symptoms after re-starting fentanyl -- Continue fentanyl patch with prn IVP fentanyl for breakthrough pain -- Drip stopped 3/2 Respiratory failure, post-operative 10/22/2015 04/22/2017 Overview: Pt intubated for OLT on 10/03/15, remained intubated d/t severe hypoxia (see hepato pulmonary syndrome) 11/01 s/p tracheostomy Very weak and debilitated, profound ICU neuromyopathy Currently improved, toleratingTC, passy etta valve capped -- continue trach collar, PMV Acute pneumothorax 10/17/2015 04/22/2017 Prerenal azotemia 10/17/2015 10/24/2015 Overview: Bun/ Creat ratio now trending down. Hypernatremia resolved -- trend Renal indices -- lasix 20 mg q8 Acute pulmonary embolism 10/17/2015 017 Spontaneous pneumothorax 10/16/2015 017 Overview: Pneumothorax discovered on CT chest 10/15 in setting of high PEEP requirements s/p chest tube placements x2 Last CT removed 11/02 CXR with small persistent Rt. Apical pneumothorax- not appeciated on today's CXR --continue to follow daily CXRs Pneumonia, organism unspecified([phone]) 10/16/2015 11/02/2015 Overview: CT of chest 10/15 shows RLL consolidation suspicious for pneumonia. Completed course of vanco and meropenem continuing micfungin. Sputum culture from 10/09 shows normal respiratory erum. legionella urinary antigen negative --ID following Sepsis due to other etiology 10/15/201505/2017 Overview: Has completed empiric courses of antibiotics for persistent low grade fevers and acute decompensation No obvious source of infection identified per extensive ID workup Vanco d/c 10/25, Meropenem d/c 10/26 11/04 Acute decompensation (fevers 11/05) empiric pip-tazo, vanc, micafungin added--> off since 11/11 (cultures negative) CT chest/ab/pelvis (11/08) with no evidence of infective process -- continue to monitor off ATB Postoperative shock 10/09/2015 04/22/2017 Overview: Shock, hypotension, fevers with increasing leukocytosis in setting of liver transplant, hepatopulmonary syndrome, ARDS, hypoxia. Profound hypoxia requiring nitric oxide therapy. Required low dose levo for BP support, now off. Concern for sepsis, blood cultures negative to date, vanco and zosyn started empirically 10/08. Procalcitonin 1.06. Lacate 1.8 -- Follow cultures -- continue vanco and zosyn -- levo for BP support (avoid fluid boluses if hypotensive) Electrolyte and fluid disorder 10/07/2015 0 04/22/2017 Overview: Hypomagnesemia repleted, hyperphos -- monitor and replete lytes daily -- increase daily PO mag oxide to 800 mg TID New onset seizure 10/05/2015 11/22/2019 Overview: Seizure activity 10/05, BEM supported the dx of cortical dysfunction in the left hemisphere with potential epileptogenicity in the left fronto-central region CT head negative for acute process, neurology consulted, loaded with Keppra Currently alert, follows commands -- weaned to Keppra 500mg bid -- neurology recommending follow up with epilepsy as outpatient ARDS (adult respiratory distress syndrome) 10/0504/22/2017 Overview: Hx of hepatopulmonary syndrome, pulmonary sarcoidosis requiring home O2 6-10 liters Pulmonary HTN with ~45% shunt. Pre-op PaO2 ~55 on RA CXR now with bilateral fluffy infiltrates / ARDS w/ pulmonary edema Desaturates with movement, turning, suctioning. Space = 60% today, with compliance ~45 -- maintain aggressive vent support (100% FiO2, wean PEEP is able as higher PEEP to increase shunt) -- lung protective strategies - Vt 6ml/kg ideal body weight (~350ml) -- trach on hold while unstable -- lasix TID -- Continue Nitric oxide -- increased I:E ratio -- avoid fluid boluses for hypotension - use pressors if needed -- sputum sent for culture Postoperative anemia due to acute blood loss 04/22/2017 Overview: S/P liver transplant with EBL 17 L c/b thrombocytopenia, coagulopahty and OP bleeding requiring intra-op nasal and pharyngeal packing Last transfused 10/08 2U PRBCs. 10/10: ENT removed nasal merocel. Clots in both nasopharyxes. No reinsertion of nasal tubes. -- monitor CBC and coags -- transfuse as required Agitation requiring sedation protocol 10/05/2015 04/22/2017 Overview: Required prolonged neuromuscular blockade with deep sedation secondary to increased WOB, breath stacking and hypoxia After discontinuation, he has had difficultly controlling agitation, likely opioid withdrawl. Had required precedex, fentanyl patch, prn haldol, seroquel Currently on seroquel, fentanyl patch Has been awake and alert, very cooperative -- continue on decreased TID seroquel dosing of 25mg TID and 150 mg qHS -- continue with fentanyl patch Acute post-operative pain 10/05/20152016 Overview: Was on prolonged fentanyl infusion d/t vent asynchrony, pain from liver tx Now transitioned to patch, infusion stopped 11/13 -- continue fentanyl patch (100mcg) Renal insufficiency 10/05/2015 10/08/2015 Overview: Secondary to hypotension Baseline Scr 0.66, now down to 0.83 Making good UO -- monitor renal indices Stress hyperglycemia 10/05/2015 04/22/2017 Overview: -- Adequate glycemic control with SSI Moderate protein-calorie malnutrition 10/05/2015 04/22/2017 Overview: Tolerating goal tube feeds Osmolite 1.2 @ 70 Prealbumin 26, transferrin 185 -- continue TF with fiber and beneprotien and full liquid diet -- nutrition following Abdominal distension 09/12/2015 04/22/2017 Overview: - concerning given weight gain of 30 lb from 09/04 - CT abdomen on last admission showed tissue edema> ascites, concern for third spacing in the abdominal wall tissue - no evidence of active infection, however, currently pancytopenia - was taking Lasix 20 mg PO every other day and spironolactone 50 mg PO daily - Liver vascular U/S demonstrates patent vasculature Plan - diuresis with Lasix 40 mg PO BID and spironolactone 100 mg PO daily - paracentesis as needed for respiratory function Liver transplant candidate 08/17/201504/22 Pain disorder with psychological factors 015 12/23/2021 Chronic abdominal pain 07/20/2015 3 Hyperammonemia 07/20/2015 04/22/2017 SUMMARY 06/14/2015 09/12/2015 Overview: Mr. 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 SOB (shortness of breath) 06/14/20152016 Overview: Started after dry run Possibly irritated by catheter? Systolic murmur also heard Chest x-ray and CT PE negative Currently at baseline New valvular lesion vs clot? -Echocardiogram -Doppler study -Observe for now Hepatic cirrhosis 06/14/2015 04/22/2017 Overview: #Cirrhosis -Continue lactulose, rifaximin -Continue aldactone Infection of other external stoma of urinary tra ct 05/17/2015 04/22/2017 UTI (lower urinary tract infection) 04/08/2015 04/22/2017 Overview: Was complaining of dysuria. UA positive with leukoesterase and Was started of ceftriaxone at OSH. Received 2 dosages here yesterday and one today. Will finish treatment for complicated UTI at home with cipro 500BID Hepatic encephalopathy 04/08/2015 7 Overview: On lactulose zinc Rifaximin Fever, low grade 11/03/2014 04/22/2017 Overview: Low grade fever on presentation UA clean Plan - Blood cx ngtd - afebrile since SUMMARY 08/31/2014 07/24/2016 Overview: The patient is a 50 yo male with a past medical history of HCV/ETOH Liver Cirrhosis c/b hepatopulmonary syndrome, hypersplenism, HE, Grade I EV, pulmonary sarcoidosis who presents with acute weight gain, abdominal distension, and SOB Fever and chills 08/31/2014 04/22/2017 Overview: Tmax 38.7 this AM; pt reports recent history of tooth extraction One time fever yesterday Received 2 time cefazolin after PFO closure. Plan: -UA, BCxx2 - NG till now -will hold off on abx for now and observe Retained dental root 08/15/2014 12/23/2021 Hepatopulmonary syndrome 03/12/2014 018 Overview: History of hepatopulmonary syndrome with ~45.2% shunt, pulmonary sarcoidosis requiring home O2 6-10 liters and mild pulmonary HTN Preop PaO2 ~55 on RA Profound hypoxia postoperatively requiring max vent support with high PEEP, heavy sedation/paralytics, flolan, nitric oxide (off since 10/26) Course c/b Right lung Pneumothorax, resp failure requiring trach 11/01 Decompensation 11/04 secondary to narcotic withdrawal +/- sepsis-->Drastically improved with fentanyl infusion, ATB. Updated echo 11/15 with EF 55%, normal RV Currently doing great, on continuous trach collar with passy etta valve, and diet -- Goal sats 85% -- Continue TC, PMV, OOB Bicytopenia 03/12/2014 04/22/2017 Overview: He has plat count of 20k and WCC of around 1000 His neutropenia is likely 2/2 to INF His thrombocytopenia is likley 2/2 to his cirrhosis Plan: Watch, transfuse plats if <10k or bleeding Pancytopenia 03/11/2014 03/12/2014 Hypoxemia 03/11/2014 10/15/2015 Overview: Due to underlying HPS Now on 100% Fio2 with last PaO2 60, Nitric oxide started 10/08, at 40 PPM. O2 sats maintaining in 80s CTS consulted for ECMO evaluation -- Given profound thrombocytopenia and grave condition ECMO not recommended -- Continue nitric oxide -- lung protective ventilation -- increased I:E ratio (at 2.4:1), paralyze with rocuronium if needed -- goal of O2 sats in 70s permissible COPD (chronic obstructive pulmonary disease) 03/12/2014 Coagulopathy 03/11/2014 04/22/2017 Syncope 01/03/2014 04/22/2017 Epididymitis 11/24/2013 04/22/2017 Testalgia 11/24/2013 04/22/2017 Thrombocytopenia 08/20/2009 04/22/2017 Overview: Platelets 96k today, received platelets 10/11 prior to liver biopsy. no obvious bleeding -- monitor CBC, coags -- transfuse as required -- monitor for bleeding -- transfuse plts prior to invasive procedures Hepatitis C 08/20/2009 11/03/2014 Cirrhosis 04/22/2017 Overview: Secondary to alcohol use and HCV complicated by ascites, PSE (on lactulose, rifaximin) and hepatopulmonary syndrome on home O2 s/p OLT on 10/03/15 Concern for rejection (humoral), now s/p thymo, IVIG, plasmapheresis 10/15 and 2 completed -hydrocortisone (switched from prednisone) now tapering down - MMF - FK documented as of this encounter (statuses as of 01/06/2023) [facility] History of Past illness Narrative* Problem Noted Date Resolved Date Neck pain 03/11/2022 07/21/2022 Hilar adenopathy 07/09/2018 08/19/2018 Last Assessment & Plan: Assessment: CT A/P on Admission shows Significant subcarinal and bilateral hilar adenopathy on the lower images through the chest. Lymphoproliferative disease suspected He does have a hx of sarcoid But no recent CT chest/CXR to compare. CT chest shows SPLENOMEGALY AND NUMEROUS ENLARGED MEDIASTINAL AND BILATERAL HILAR LYMPH NODES, INCREASED IN SIZE SINCE 2016. THE DIFFERENTIAL DIAGNOSIS INCLUDES SARCOIDOSIS AND LYMPHOPROLIFERATIVE DISEASE. PLAN: -Transfer to [facility] for further evaluation by oncology per ID recommedation. Nausea & vomiting 07/09/2018 07/28/2018 Last Assessment & Plan: Assessment: Patient notes off and on nausea for one month. Also notes worsening control of his reflux symptoms. CTA/P shows significant subcarinal and bilateral hilar adenopathy and new subtle intrahepatic biliary dilatation and common duct dilatation . Obstructing lesion must be excluded, however.Splenic enlargement PLAN: -Increase protonix to 40mg bid -Zofran PRN for N/V -GI consult pending. Cellulitis 07/09/2018 07/13/2018 Abdominal wall cellulitis 12/01/20172021 Last Assessment & Plan: Assessment: Second Episode this year . Likely due to his constant picking of the skin of his abdomen. He is HDS, no leucocytosis,crp 2.6,ESR 2,lactate normal CTA/P shows no abscess nor cellulitis . PLAN: Continue ancef started in the ER. Continue bactrim as scheduled for prophylaxis - due to hx of liver transplant PRN morphine for pain. ID consult (because of his immunocompromised state - hx of liver transplant/ommunesuppresants) Wound care consult (re:open areas on his abdomen due to his scratching) F/up on blood Culture Ventral hernia without obstruction or gangrene 0 03/24/2017 04/22/2017 Lower abdominal pain 07/23/2016 04/22/2017 Dysuria 03/26/2016 07/21/2022 Opioid withdrawal 11/09/2015 04/22/2017 Overview: Thursday with opioid withdrawal after attempted discontinuation of fentanyl Resolution of symptoms after re-starting fentanyl -- Continue fentanyl patch with prn IVP fentanyl for breakthrough pain -- Drip stopped 3/2 Respiratory failure, post-operative 10/22/2015 04/22/2017 Overview: Pt intubated for OLT on 10/03/15, remained intubated d/t severe hypoxia (see hepato pulmonary syndrome) 11/01 s/p tracheostomy Very weak and debilitated, profound ICU neuromyopathy Currently improved, toleratingTC, passy etta valve capped -- continue trach collar, PMV Acute pneumothorax 10/17/2015 04/22/2017 Prerenal azotemia 10/17/2015 10/24/2015 Overview: Bun/ Creat ratio now trending down. Hypernatremia resolved -- trend Renal indices -- lasix 20 mg q8 Acute pulmonary embolism 10/17/2015 017 Spontaneous pneumothorax 10/16/2015 017 Overview: Pneumothorax discovered on CT chest 10/15 in setting of high PEEP requirements s/p chest tube placements x2 Last CT removed 11/02 CXR with small persistent Rt. Apical pneumothorax- not appeciated on today's CXR --continue to follow daily CXRs Pneumonia, organism unspecified([phone]) 10/16/2015 11/02/2015 Overview: CT of chest 10/15 shows RLL consolidation suspicious for pneumonia. Completed course of vanco and meropenem continuing micfungin. Sputum culture from 10/09 shows normal respiratory erum. legionella urinary antigen negative --ID following Sepsis due to other etiology 10/15/201505/2017 Overview: Has completed empiric courses of antibiotics for persistent low grade fevers and acute decompensation No obvious source of infection identified per extensive ID workup Vanco d/c 10/25, Meropenem d/c 10/26 11/04 Acute decompensation (fevers 11/05) empiric pip-tazo, vanc, micafungin added--> off since 11/11 (cultures negative) CT chest/ab/pelvis (11/08) with no evidence of infective process -- continue to monitor off ATB Postoperative shock 10/09/2015 04/22/2017 Overview: Shock, hypotension, fevers with increasing leukocytosis in setting of liver transplant, hepatopulmonary syndrome, ARDS, hypoxia. Profound hypoxia requiring nitric oxide therapy. Required low dose levo for BP support, now off. Concern for sepsis, blood cultures negative to date, vanco and zosyn started empirically 10/08. Procalcitonin 1.06. Lacate 1.8 -- Follow cultures -- continue vanco and zosyn -- levo for BP support (avoid fluid boluses if hypotensive) Electrolyte and fluid disorder 10/07/2015 0 04/22/2017 Overview: Hypomagnesemia repleted, hyperphos -- monitor and replete lytes daily -- increase daily PO mag oxide to 800 mg TID New onset seizure 10/05/2015 11/22/2019 Overview: Seizure activity 10/05, BEM supported the dx of cortical dysfunction in the left hemisphere with potential epileptogenicity in the left fronto-central region CT head negative for acute process, neurology consulted, loaded with Keppra Currently alert, follows commands -- weaned to Keppra 500mg bid -- neurology recommending follow up with epilepsy as outpatient ARDS (adult respiratory distress syndrome) 10/0504/22/2017 Overview: Hx of hepatopulmonary syndrome, pulmonary sarcoidosis requiring home O2 6-10 liters Pulmonary HTN with ~45% shunt. Pre-op PaO2 ~55 on RA CXR now with bilateral fluffy infiltrates / ARDS w/ pulmonary edema Desaturates with movement, turning, suctioning. Space = 60% today, with compliance ~45 -- maintain aggressive vent support (100% FiO2, wean PEEP is able as higher PEEP to increase shunt) -- lung protective strategies - Vt 6ml/kg ideal body weight (~350ml) -- trach on hold while unstable -- lasix TID -- Continue Nitric oxide -- increased I:E ratio -- avoid fluid boluses for hypotension - use pressors if needed -- sputum sent for culture Postoperative anemia due to acute blood loss 04/22/2017 Overview: S/P liver transplant with EBL 17 L c/b thrombocytopenia, coagulopahty and OP bleeding requiring intra-op nasal and pharyngeal packing Last transfused 10/08 2U PRBCs. 10/10: ENT removed nasal merocel. Clots in both nasopharyxes. No reinsertion of nasal tubes. -- monitor CBC and coags -- transfuse as required Agitation requiring sedation protocol 10/05/2015 04/22/2017 Overview: Required prolonged neuromuscular blockade with deep sedation secondary to increased WOB, breath stacking and hypoxia After discontinuation, he has had difficultly controlling agitation, likely opioid withdrawl. Had required precedex, fentanyl patch, prn haldol, seroquel Currently on seroquel, fentanyl patch Has been awake and alert, very cooperative -- continue on decreased TID seroquel dosing of 25mg TID and 150 mg qHS -- continue with fentanyl patch Acute post-operative pain 10/05/20152016 Overview: Was on prolonged fentanyl infusion d/t vent asynchrony, pain from liver tx Now transitioned to patch, infusion stopped 11/13 -- continue fentanyl patch (100mcg) Renal insufficiency 10/05/2015 10/08/2015 Overview: Secondary to hypotension Baseline Scr 0.66, now down to 0.83 Making good UO -- monitor renal indices Stress hyperglycemia 10/05/2015 04/22/2017 Overview: -- Adequate glycemic control with SSI Moderate protein-calorie malnutrition 10/05/2015 04/22/2017 Overview: Tolerating goal tube feeds Osmolite 1.2 @ 70 Prealbumin 26, transferrin 185 -- continue TF with fiber and beneprotien and full liquid diet -- nutrition following Abdominal distension 09/12/2015 04/22/2017 Overview: - concerning given weight gain of 30 lb from 09/04 - CT abdomen on last admission showed tissue edema> ascites, concern for third spacing in the abdominal wall tissue - no evidence of active infection, however, currently pancytopenia - was taking Lasix 20 mg PO every other day and spironolactone 50 mg PO daily - Liver vascular U/S demonstrates patent vasculature Plan - diuresis with Lasix 40 mg PO BID and spironolactone 100 mg PO daily - paracentesis as needed for respiratory function Liver transplant candidate 08/17/201504/22 Pain disorder with psychological factors 015 12/23/2021 Chronic abdominal pain 07/20/2015 3 Hyperammonemia 07/20/2015 04/22/2017 SUMMARY 06/14/2015 09/12/2015 Overview: Mr. 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 SOB (shortness of breath) 06/14/20152016 Overview: Started after dry run Possibly irritated by catheter? Systolic murmur also heard Chest x-ray and CT PE negative Currently at baseline New valvular lesion vs clot? -Echocardiogram -Doppler study -Observe for now Hepatic cirrhosis 06/14/2015 04/22/2017 Overview: #Cirrhosis -Continue lactulose, rifaximin -Continue aldactone Infection of other external stoma of urinary tra ct 05/17/2015 04/22/2017 UTI (lower urinary tract infection) 04/08/2015 04/22/2017 Overview: Was complaining of dysuria. UA positive with leukoesterase and Was started of ceftriaxone at OSH. Received 2 dosages here yesterday and one today. Will finish treatment for complicated UTI at home with cipro 500BID Hepatic encephalopathy 04/08/2015 7 Overview: On lactulose zinc Rifaximin Fever, low grade 11/03/2014 04/22/2017 Overview: Low grade fever on presentation UA clean Plan - Blood cx ngtd - afebrile since SUMMARY 08/31/2014 07/24/2016 Overview: The patient is a 50 yo male with a past medical history of HCV/ETOH Liver Cirrhosis c/b hepatopulmonary syndrome, hypersplenism, HE, Grade I EV, pulmonary sarcoidosis who presents with acute weight gain, abdominal distension, and SOB Fever and chills 08/31/2014 04/22/2017 Overview: Tmax 38.7 this AM; pt reports recent history of tooth extraction One time fever yesterday Received 2 time cefazolin after PFO closure. Plan: -UA, BCxx2 - NG till now -will hold off on abx for now and observe Retained dental root 08/15/2014 12/23/2021 Hepatopulmonary syndrome 03/12/2014 018 Overview: History of hepatopulmonary syndrome with ~45.2% shunt, pulmonary sarcoidosis requiring home O2 6-10 liters and mild pulmonary HTN Preop PaO2 ~55 on RA Profound hypoxia postoperatively requiring max vent support with high PEEP, heavy sedation/paralytics, flolan, nitric oxide (off since 10/26) Course c/b Right lung Pneumothorax, resp failure requiring trach 11/01 Decompensation 11/04 secondary to narcotic withdrawal +/- sepsis-->Drastically improved with fentanyl infusion, ATB. Updated echo 11/15 with EF 55%, normal RV Currently doing great, on continuous trach collar with passy etta valve, and diet -- Goal sats 85% -- Continue TC, PMV, OOB Bicytopenia 03/12/2014 04/22/2017 Overview: He has plat count of 20k and WCC of around 1000 His neutropenia is likely 2/2 to INF His thrombocytopenia is likley 2/2 to his cirrhosis Plan: Watch, transfuse plats if <10k or bleeding Pancytopenia 03/11/2014 03/12/2014 Hypoxemia 03/11/2014 10/15/2015 Overview: Due to underlying HPS Now on 100% Fio2 with last PaO2 60, Nitric oxide started 10/08, at 40 PPM. O2 sats maintaining in 80s CTS consulted for ECMO evaluation -- Given profound thrombocytopenia and grave condition ECMO not recommended -- Continue nitric oxide -- lung protective ventilation -- increased I:E ratio (at 2.4:1), paralyze with rocuronium if needed -- goal of O2 sats in 70s permissible COPD (chronic obstructive pulmonary disease) 03/12/2014 Coagulopathy 03/11/2014 04/22/2017 Syncope 01/03/2014 04/22/2017 Epididymitis 11/24/2013 04/22/2017 Testalgia 11/24/2013 04/22/2017 Thrombocytopenia 08/20/2009 04/22/2017 Overview: Platelets 96k today, received platelets 10/11 prior to liver biopsy. no obvious bleeding -- monitor CBC, coags -- transfuse as required -- monitor for bleeding -- transfuse plts prior to invasive procedures Hepatitis C 08/20/2009 11/03/2014 Cirrhosis 04/22/2017 Overview: Secondary to alcohol use and HCV complicated by ascites, PSE (on lactulose, rifaximin) and hepatopulmonary syndrome on home O2 s/p OLT on 10/03/15 Concern for rejection (humoral), now s/p thymo, IVIG, plasmapheresis 10/15 and 10/16 completed -hydrocortisone (switched from prednisone) now tapering down - MMF - FK documented as of this encounter (statuses as of 01/08/2023) [facility]06[facility] History of Past illness Narrative* Problem Noted Date Resolved Date Neck pain 03/11/2022 07/21/2022 Hilar adenopathy 07/09/2018 08/19/2018 Last Assessment & Plan: Assessment: CT A/P on Admission shows Significant subcarinal and bilateral hilar adenopathy on the lower images through the chest. Lymphoproliferative disease suspected He does have a hx of sarcoid But no recent CT chest/CXR to compare. CT chest shows SPLENOMEGALY AND NUMEROUS ENLARGED MEDIASTINAL AND BILATERAL HILAR LYMPH NODES, INCREASED IN SIZE SINCE 2016. THE DIFFERENTIAL DIAGNOSIS INCLUDES SARCOIDOSIS AND LYMPHOPROLIFERATIVE DISEASE. PLAN: -Transfer to [facility] for further evaluation by oncology per ID recommedation. Nausea & vomiting 07/09/2018 07/28/2018 Last Assessment & Plan: Assessment: Patient notes off and on nausea for one month. Also notes worsening control of his reflux symptoms. CTA/P shows significant subcarinal and bilateral hilar adenopathy and new subtle intrahepatic biliary dilatation and common duct dilatation . Obstructing lesion must be excluded, however.Splenic enlargement PLAN: -Increase protonix to 40mg bid -Zofran PRN for N/V -GI consult pending. Cellulitis 07/09/2018 07/13/2018 Abdominal wall cellulitis 12/01/20172021 Last Assessment & Plan: Assessment: Second Episode this year . Likely due to his constant picking of the skin of his abdomen. He is HDS, no leucocytosis,crp 2.6,ESR 2,lactate normal CTA/P shows no abscess nor cellulitis . PLAN: Continue ancef started in the ER. Continue bactrim as scheduled for prophylaxis - due to hx of liver transplant PRN morphine for pain. ID consult (because of his immunocompromised state - hx of liver transplant/ommunesuppresants) Wound care consult (re:open areas on his abdomen due to his scratching) F/up on blood Culture Ventral hernia without obstruction or gangrene 0 03/24/2017 04/22/2017 Lower abdominal pain 07/23/2016 04/22/2017 Dysuria 03/26/2016 07/21/2022 Opioid withdrawal 11/09/2015 04/22/2017 Overview: Thursday with opioid withdrawal after attempted discontinuation of fentanyl Resolution of symptoms after re-starting fentanyl -- Continue fentanyl patch with prn IVP fentanyl for breakthrough pain -- Drip stopped 3/2 Respiratory failure, post-operative 10/22/2015 04/22/2017 Overview: Pt intubated for OLT on 10/03/15, remained intubated d/t severe hypoxia (see hepato pulmonary syndrome) 11/01 s/p tracheostomy Very weak and debilitated, profound ICU neuromyopathy Currently improved, toleratingTC, passy etta valve capped -- continue trach collar, PMV Acute pneumothorax 10/17/2015 04/22/2017 Prerenal azotemia 10/17/2015 10/24/2015 Overview: Bun/ Creat ratio now trending down. Hypernatremia resolved -- trend Renal indices -- lasix 20 mg q8 Acute pulmonary embolism 10/17/2015 017 Spontaneous pneumothorax 10/16/2015 017 Overview: Pneumothorax discovered on CT chest 10/15 in setting of high PEEP requirements s/p chest tube placements x2 Last CT removed 11/02 CXR with small persistent Rt. Apical pneumothorax- not appeciated on today's CXR --continue to follow daily CXRs Pneumonia, organism unspecified(486) 10/16/2015 11/02/2015 Overview: CT of chest 10/15 shows RLL consolidation suspicious for pneumonia. Completed course of vanco and meropenem continuing micfungin. Sputum culture from 10/09 shows normal respiratory erum. legionella urinary antigen negative --ID following Sepsis due to other etiology 10/15/201505/2017 Overview: Has completed empiric courses of antibiotics for persistent low grade fevers and acute decompensation No obvious source of infection identified per extensive ID workup Vanco d/c 10/25, Meropenem d/c 10/26 11/04 Acute decompensation (fevers 11/05) empiric pip-tazo, vanc, micafungin added--> off since 11/11 (cultures negative) CT chest/ab/pelvis (11/08) with no evidence of infective process -- continue to monitor off ATB Postoperative shock 10/09/2015 04/22/2017 Overview: Shock, hypotension, fevers with increasing leukocytosis in setting of liver transplant, hepatopulmonary syndrome, ARDS, hypoxia. Profound hypoxia requiring nitric oxide therapy. Required low dose levo for BP support, now off. Concern for sepsis, blood cultures negative to date, vanco and zosyn started empirically 10/08. Procalcitonin 1.06. Lacate 1.8 -- Follow cultures -- continue vanco and zosyn -- levo for BP support (avoid fluid boluses if hypotensive) Electrolyte and fluid disorder 10/07/2015 0 04/22/2017 Overview: Hypomagnesemia repleted, hyperphos -- monitor and replete lytes daily -- increase daily PO mag oxide to 800 mg TID New onset seizure 10/05/2015 11/22/2019 Overview: Seizure activity 10/05, BEM supported the dx of cortical dysfunction in the left hemisphere with potential epileptogenicity in the left fronto-central region CT head negative for acute process, neurology consulted, loaded with Keppra Currently alert, follows commands -- weaned to Keppra 500mg bid -- neurology recommending follow up with epilepsy as outpatient ARDS (adult respiratory distress syndrome) 10/0504/22/2017 Overview: Hx of hepatopulmonary syndrome, pulmonary sarcoidosis requiring home O2 6-10 liters Pulmonary HTN with ~45% shunt. Pre-op PaO2 ~55 on RA CXR now with bilateral fluffy infiltrates / ARDS w/ pulmonary edema Desaturates with movement, turning, suctioning. Space = 60% today, with compliance ~45 -- maintain aggressive vent support (100% FiO2, wean PEEP is able as higher PEEP to increase shunt) -- lung protective strategies - Vt 6ml/kg ideal body weight (~350ml) -- trach on hold while unstable -- lasix TID -- Continue Nitric oxide -- increased I:E ratio -- avoid fluid boluses for hypotension - use pressors if needed -- sputum sent for culture Postoperative anemia due to acute blood loss 04/22/2017 Overview: S/P liver transplant with EBL 17 L c/b thrombocytopenia, coagulopahty and OP bleeding requiring intra-op nasal and pharyngeal packing Last transfused 10/08 2U PRBCs. 10/10: ENT removed nasal merocel. Clots in both nasopharyxes. No reinsertion of nasal tubes. -- monitor CBC and coags -- transfuse as required Agitation requiring sedation protocol 10/05/2015 04/22/2017 Overview: Required prolonged neuromuscular blockade with deep sedation secondary to increased WOB, breath stacking and hypoxia After discontinuation, he has had difficultly controlling agitation, likely opioid withdrawl. Had required precedex, fentanyl patch, prn haldol, seroquel Currently on seroquel, fentanyl patch Has been awake and alert, very cooperative -- continue on decreased TID seroquel dosing of 25mg TID and 150 mg qHS -- continue with fentanyl patch Acute post-operative pain 10/05/20152016 Overview: Was on prolonged fentanyl infusion d/t vent asynchrony, pain from liver tx Now transitioned to patch, infusion stopped 11/13 -- continue fentanyl patch (100mcg) Renal insufficiency 10/05/2015 10/08/2015 Overview: Secondary to hypotension Baseline Scr 0.66, now down to 0.83 Making good UO -- monitor renal indices Stress hyperglycemia 10/05/2015 04/22/2017 Overview: -- Adequate glycemic control with SSI Moderate protein-calorie malnutrition 10/05/2015 04/22/2017 Overview: Tolerating goal tube feeds Osmolite 1.2 @ 70 Prealbumin 26, transferrin 185 -- continue TF with fiber and beneprotien and full liquid diet -- nutrition following Abdominal distension 09/12/2015 04/22/2017 Overview: - concerning given weight gain of 30 lb from 09/04 - CT abdomen on last admission showed tissue edema> ascites, concern for third spacing in the abdominal wall tissue - no evidence of active infection, however, currently pancytopenia - was taking Lasix 20 mg PO every other day and spironolactone 50 mg PO daily - Liver vascular U/S demonstrates patent vasculature Plan - diuresis with Lasix 40 mg PO BID and spironolactone 100 mg PO daily - paracentesis as needed for respiratory function Liver transplant candidate 08/17/201504/22 Pain disorder with psychological factors 015 12/23/2021 Chronic abdominal pain 07/20/2015 3 Hyperammonemia 07/20/2015 04/22/2017 SUMMARY 06/14/2015 09/12/2015 Overview: Mr. 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 SOB (shortness of breath) 06/14/20152016 Overview: Started after dry run Possibly irritated by catheter? Systolic murmur also heard Chest x-ray and CT PE negative Currently at baseline New valvular lesion vs clot? -Echocardiogram -Doppler study -Observe for now Hepatic cirrhosis 06/14/2015 04/22/2017 Overview: #Cirrhosis -Continue lactulose, rifaximin -Continue aldactone Infection of other external stoma of urinary tra ct 05/17/2015 04/22/2017 UTI (lower urinary tract infection) 04/08/2015 04/22/2017 Overview: Was complaining of dysuria. UA positive with leukoesterase and Was started of ceftriaxone at OSH. Received 2 dosages here yesterday and one today. Will finish treatment for complicated UTI at home with cipro 500BID Hepatic encephalopathy 04/08/2015 7 Overview: On lactulose zinc Rifaximin Fever, low grade 11/03/2014 04/22/2017 Overview: Low grade fever on presentation UA clean Plan - Blood cx ngtd - afebrile since SUMMARY 08/31/2014 07/24/2016 Overview: The patient is a 50 yo male with a past medical history of HCV/ETOH Liver Cirrhosis c/b hepatopulmonary syndrome, hypersplenism, HE, Grade I EV, pulmonary sarcoidosis who presents with acute weight gain, abdominal distension, and SOB Fever and chills 08/31/2014 04/22/2017 Overview: Tmax 38.7 this AM; pt reports recent history of tooth extraction One time fever yesterday Received 2 time cefazolin after PFO closure. Plan: -UA, BCxx2 - NG till now -will hold off on abx for now and observe Retained dental root 08/15/2014 12/23/2021 Hepatopulmonary syndrome 03/12/2014 018 Overview: History of hepatopulmonary syndrome with ~45.2% shunt, pulmonary sarcoidosis requiring home O2 6-10 liters and mild pulmonary HTN Preop PaO2 ~55 on RA Profound hypoxia postoperatively requiring max vent support with high PEEP, heavy sedation/paralytics, flolan, nitric oxide (off since 10/26) Course c/b Right lung Pneumothorax, resp failure requiring trach 11/01 Decompensation 11/04 secondary to narcotic withdrawal +/- sepsis-->Drastically improved with fentanyl infusion, ATB. Updated echo 11/15 with EF 55%, normal RV Currently doing great, on continuous trach collar with passy etta valve, and diet -- Goal sats 85% -- Continue TC, PMV, OOB Bicytopenia 03/12/2014 04/22/2017 Overview: He has plat count of 20k and WCC of around 1000 His neutropenia is likely 2/2 to INF His thrombocytopenia is likley 2/2 to his cirrhosis Plan: Watch, transfuse plats if <10k or bleeding Pancytopenia 03/11/2014 03/12/2014 Hypoxemia 03/11/2014 10/15/2015 Overview: Due to underlying HPS Now on 100% Fio2 with last PaO2 60, Nitric oxide started 10/08, at 40 PPM. O2 sats maintaining in 80s CTS consulted for ECMO evaluation -- Given profound thrombocytopenia and grave condition ECMO not recommended -- Continue nitric oxide -- lung protective ventilation -- increased I:E ratio (at 2.4:1), paralyze with rocuronium if needed -- goal of O2 sats in 70s permissible COPD (chronic obstructive pulmonary disease) 03/12/2014 Coagulopathy 03/11/2014 04/22/2017 Syncope 01/03/2014 04/22/2017 Epididymitis 11/24/2013 04/22/2017 Testalgia 11/24/2013 04/22/2017 Thrombocytopenia 08/20/2009 04/22/2017 Overview: Platelets 96k today, received platelets 10/11 prior to liver biopsy. no obvious bleeding -- monitor CBC, coags -- transfuse as required -- monitor for bleeding -- transfuse plts prior to invasive procedures Hepatitis C 08/20/2009 11/03/2014 Cirrhosis 04/22/2017 Overview: Secondary to alcohol use and HCV complicated by ascites, PSE (on lactulose, rifaximin) and hepatopulmonary syndrome on home O2 s/p OLT on 10/03/15 Concern for rejection (humoral), now s/p thymo, IVIG, plasmapheresis 10/15 and 10/16 completed -hydrocortisone (switched from prednisone) now tapering down - MMF - FK documented as of this encounter (statuses as of 01/12/2023) [facility]06[facility] History of Past illness Narrative* Problem Noted Date Resolved Date Neck pain 03/11/2022 07/21/2022 Hilar adenopathy 07/09/2018 08/19/2018 Last Assessment & Plan: Assessment: CT A/P on Admission shows Significant subcarinal and bilateral hilar adenopathy on the lower images through the chest. Lymphoproliferative disease suspected He does have a hx of sarcoid But no recent CT chest/CXR to compare. CT chest shows SPLENOMEGALY AND NUMEROUS ENLARGED MEDIASTINAL AND BILATERAL HILAR LYMPH NODES, INCREASED IN SIZE SINCE 2016. THE DIFFERENTIAL DIAGNOSIS INCLUDES SARCOIDOSIS AND LYMPHOPROLIFERATIVE DISEASE. PLAN: -Transfer to [facility] for further evaluation by oncology per ID recommedation. Nausea & vomiting 07/09/2018 07/28/2018 Last Assessment & Plan: Assessment: Patient notes off and on nausea for one month. Also notes worsening control of his reflux symptoms. CTA/P shows significant subcarinal and bilateral hilar adenopathy and new subtle intrahepatic biliary dilatation and common duct dilatation . Obstructing lesion must be excluded, however.Splenic enlargement PLAN: -Increase protonix to 40mg bid -Zofran PRN for N/V -GI consult pending. Cellulitis 07/09/2018 07/13/2018 Abdominal wall cellulitis 12/01/20172021 Last Assessment & Plan: Assessment: Second Episode this year . Likely due to his constant picking of the skin of his abdomen. He is HDS, no leucocytosis,crp 2.6,ESR 2,lactate normal CTA/P shows no abscess nor cellulitis . PLAN: Continue ancef started in the ER. Continue bactrim as scheduled for prophylaxis - due to hx of liver transplant PRN morphine for pain. 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 01/19/2023 Overview: Critical illness polymyoneuropathy secondary to patient's critical illness requiring paralytics and bedridden state MRI brain and cervical-thoracic spine 11/12 unrevealing -- resting prafo boot -- Ankles have plantar deviation contractures - require stretching (aggressive) resting foot/ankle splints -- Physical therapy daily -- F/u any neuro recs Respiratory failure, post-operative 10/22/2015 04/22/2017 Overview: Pt intubated for OLT on 10/03/15, remained intubated d/t severe hypoxia (see hepato pulmonary syndrome) 11/01 s/p tracheostomy Very weak and debilitated, profound ICU neuromyopathy Currently improved, toleratingTC, passy etta valve capped -- continue trach collar, PMV Acute pneumothorax 10/17/2015 04/22/2017 Prerenal azotemia 10/17/2015 10/24/2015 Overview: Bun/ Creat ratio now trending down. Hypernatremia resolved -- trend Renal indices -- lasix 20 mg q8 Acute pulmonary embolism 10/17/2015 017 Spontaneous pneumothorax 10/16/2015 017 Overview: Pneumothorax discovered on CT chest 10/15 in setting of high PEEP requirements s/p chest tube placements x2 Last CT removed 11/02 CXR with small persistent Rt. Apical pneumothorax- not appeciated on today's CXR --continue to follow daily CXRs Pneumonia, organism unspecified([phone]) 10/16/2015 11/02/2015 Overview: CT of chest 10/15 shows RLL consolidation suspicious for pneumonia. Completed course of vanco and meropenem continuing micfungin. Sputum culture from 10/09 shows normal respiratory erum. legionella urinary antigen negative --ID following Sepsis due to other etiology 10/15/201505/2017 Overview: Has completed empiric courses of antibiotics for persistent low grade fevers and acute decompensation No obvious source of infection identified per extensive ID workup Vanco d/c 10/25, Meropenem d/c 10/26 11/04 Acute decompensation (fevers 11/05) empiric pip-tazo, vanc, micafungin added--> off since 11/11 (cultures negative) CT chest/ab/pelvis (11/08) with no evidence of infective process -- continue to monitor off ATB Postoperative shock 10/09/2015 04/22/2017 Overview: Shock, hypotension, fevers with increasing leukocytosis in setting of liver transplant, hepatopulmonary syndrome, ARDS, hypoxia. Profound hypoxia requiring nitric oxide therapy. Required low dose levo for BP support, now off. Concern for sepsis, blood cultures negative to date, vanco and zosyn started empirically 10/08. Procalcitonin 1.06. Lacate 1.8 -- Follow cultures -- continue vanco and zosyn -- levo for BP support (avoid fluid boluses if hypotensive) Electrolyte and fluid disorder 10/07/2015 0 04/22/2017 Overview: Hypomagnesemia repleted, hyperphos -- monitor and replete lytes daily -- increase daily PO mag oxide to 800 mg TID New onset seizure 10/05/2015 11/22/2019 Overview: Seizure activity 10/05, BEM supported the dx of cortical dysfunction in the left hemisphere with potential epileptogenicity in the left fronto-central region CT head negative for acute process, neurology consulted, loaded with Keppra Currently alert, follows commands -- weaned to Keppra 500mg bid -- neurology recommending follow up with epilepsy as outpatient ARDS (adult respiratory distress syndrome) 10/0504/22/2017 Overview: Hx of hepatopulmonary syndrome, pulmonary sarcoidosis requiring home O2 6-10 liters Pulmonary HTN with ~45% shunt. Pre-op PaO2 ~55 on RA CXR now with bilateral fluffy infiltrates / ARDS w/ pulmonary edema Desaturates with movement, turning, suctioning. Space = 60% today, with compliance ~45 -- maintain aggressive vent support (100% FiO2, wean PEEP is able as higher PEEP to increase shunt) -- lung protective strategies - Vt 6ml/kg ideal body weight (~350ml) -- trach on hold while unstable -- lasix TID -- Continue Nitric oxide -- increased I:E ratio -- avoid fluid boluses for hypotension - use pressors if needed -- sputum sent for culture Postoperative anemia due to acute blood loss 04/22/2017 Overview: S/P liver transplant with EBL 17 L c/b thrombocytopenia, coagulopahty and OP bleeding requiring intra-op nasal and pharyngeal packing Last transfused 10/08 2U PRBCs. 10/10: ENT removed nasal merocel. Clots in both nasopharyxes. No reinsertion of nasal tubes. -- monitor CBC and coags -- transfuse as required Agitation requiring sedation protocol 10/05/2015 04/22/2017 Overview: Required prolonged neuromuscular blockade with deep sedation secondary to increased WOB, breath stacking and hypoxia After discontinuation, he has had difficultly controlling agitation, likely opioid withdrawl. Had required precedex, fentanyl patch, prn haldol, seroquel Currently on seroquel, fentanyl patch Has been awake and alert, very cooperative -- continue on decreased TID seroquel dosing of 25mg TID and 150 mg qHS -- continue with fentanyl patch Acute post-operative pain 10/05/20152016 Overview: Was on prolonged fentanyl infusion d/t vent asynchrony, pain from liver tx Now transitioned to patch, infusion stopped 11/13 -- continue fentanyl patch (100mcg) Renal insufficiency 10/05/2015 10/08/2015 Overview: Secondary to hypotension Baseline Scr 0.66, now down to 0.83 Making good UO -- monitor renal indices Stress hyperglycemia 10/05/2015 04/22/2017 Overview: -- Adequate glycemic control with SSI Moderate protein-calorie malnutrition 10/05/2015 04/22/2017 Overview: Tolerating goal tube feeds Osmolite 1.2 @ 70 Prealbumin 26, transferrin 185 -- continue TF with fiber and beneprotien and full liquid diet -- nutrition following Abdominal distension 09/12/2015 04/22/2017 Overview: - concerning given weight gain of 30 lb from 09/04 - CT abdomen on last admission showed tissue edema> ascites, concern for third spacing in the abdominal wall tissue - no evidence of active infection, however, currently pancytopenia - was taking Lasix 20 mg PO every other day and spironolactone 50 mg PO daily - Liver vascular U/S demonstrates patent vasculature Plan - diuresis with Lasix 40 mg PO BID and spironolactone 100 mg PO daily - paracentesis as needed for respiratory function Liver transplant candidate 08/17/201504/22 Pain disorder with psychological factors 015 12/23/2021 Chronic abdominal pain 07/20/2015 3 Hyperammonemia 07/20/2015 04/22/2017 SUMMARY 06/14/2015 09/12/2015 Overview: Mr. 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 SOB (shortness of breath) 06/14/20152016 Overview: Started after dry run Possibly irritated by catheter? Systolic murmur also heard Chest x-ray and CT PE negative Currently at baseline New valvular lesion vs clot? -Echocardiogram -Doppler study -Observe for now Hepatic cirrhosis 06/14/2015 04/22/2017 Overview: #Cirrhosis -Continue lactulose, rifaximin -Continue aldactone Infection of other external stoma of urinary tra ct 05/17/2015 04/22/2017 UTI (lower urinary tract infection) 04/08/2015 04/22/2017 Overview: Was complaining of dysuria. UA positive with leukoesterase and Was started of ceftriaxone at OSH. Received 2 dosages here yesterday and one today. Will finish treatment for complicated UTI at home with cipro 500BID Hepatic encephalopathy 04/08/2015 7 Overview: On lactulose zinc Rifaximin Fever, low grade 11/03/2014 04/22/2017 Overview: Low grade fever on presentation UA clean Plan - Blood cx ngtd - afebrile since SUMMARY 08/31/2014 07/24/2016 Overview: The patient is a 50 yo male with a past medical history of HCV/ETOH Liver Cirrhosis c/b hepatopulmonary syndrome, hypersplenism, HE, Grade I EV, pulmonary sarcoidosis who presents with acute weight gain, abdominal distension, and SOB Fever and chills 08/31/2014 04/22/2017 Overview: Tmax 38.7 this AM; pt reports recent history of tooth extraction One time fever yesterday Received 2 time cefazolin after PFO closure. Plan: -UA, BCxx2 - NG till now -will hold off on abx for now and observe Retained dental root 08/15/2014 12/23/2021 Hepatopulmonary syndrome 03/12/2014 018 Overview: History of hepatopulmonary syndrome with ~45.2% shunt, pulmonary sarcoidosis requiring home O2 6-10 liters and mild pulmonary HTN Preop PaO2 ~55 on RA Profound hypoxia postoperatively requiring max vent support with high PEEP, heavy sedation/paralytics, flolan, nitric oxide (off since 10/26) Course c/b Right lung Pneumothorax, resp failure requiring trach 11/01 Decompensation 11/04 secondary to narcotic withdrawal +/- sepsis-->Drastically improved with fentanyl infusion, ATB. Updated echo 11/15 with EF 55%, normal RV Currently doing great, on continuous trach collar with passy etta valve, and diet -- Goal sats 85% -- Continue TC, PMV, OOB Bicytopenia 03/12/2014 04/22/2017 Overview: He has plat count of 20k and WCC of around 1000 His neutropenia is likely 2/2 to INF His thrombocytopenia is likley 2/2 to his cirrhosis Plan: Watch, transfuse plats if <10k or bleeding Pancytopenia 03/11/2014 03/12/2014 Hypoxemia 03/11/2014 10/15/2015 Overview: Due to underlying HPS Now on 100% Fio2 with last PaO2 60, Nitric oxide started 10/08, at 40 PPM. O2 sats maintaining in 80s CTS consulted for ECMO evaluation -- Given profound thrombocytopenia and grave condition ECMO not recommended -- Continue nitric oxide -- lung protective ventilation -- increased I:E ratio (at 2.4:1), paralyze with rocuronium if needed -- goal of O2 sats in 70s permissible COPD (chronic obstructive pulmonary disease) 03/12/2014 Coagulopathy 03/11/2014 04/22/2017 Syncope 01/03/2014 04/22/2017 Epididymitis 11/24/2013 04/22/2017 Testalgia 11/24/2013 04/22/2017 Thrombocytopenia 08/20/2009 04/22/2017 Overview: Platelets 96k today, received platelets 10/11 prior to liver biopsy. no obvious bleeding -- monitor CBC, coags -- transfuse as required -- monitor for bleeding -- transfuse plts prior to invasive procedures Hepatitis C 08/20/2009 11/03/2014 Cirrhosis 04/22/2017 Overview: Secondary to alcohol use and HCV complicated by ascites, PSE (on lactulose, rifaximin) and hepatopulmonary syndrome on home O2 s/p OLT on 10/03/15 Concern for rejection (humoral), now s/p thymo, IVIG, plasmapheresis 10/15 and 10/16 completed -hydrocortisone (switched from prednisone) now tapering down - MMF - FK documented as of this encounter (statuses as of 01/20/2023) [facility]06[facility] History of Past illness Narrative* Problem Noted Date Resolved Date Neck pain 03/11/2022 07/21/2022 Hilar adenopathy 07/09/2018 08/19/2018 Last Assessment & Plan: Assessment: CT A/P on Admission shows Significant subcarinal and bilateral hilar adenopathy on the lower images through the chest. Lymphoproliferative disease suspected He does have a hx of sarcoid But no recent CT chest/CXR to compare. CT chest shows SPLENOMEGALY AND NUMEROUS ENLARGED MEDIASTINAL AND BILATERAL HILAR LYMPH NODES, INCREASED IN SIZE SINCE 2016. THE DIFFERENTIAL DIAGNOSIS INCLUDES SARCOIDOSIS AND LYMPHOPROLIFERATIVE DISEASE. PLAN: -Transfer to [facility] for further evaluation by oncology per ID recommedation. Nausea & vomiting 07/09/2018 07/28/2018 Last Assessment & Plan: Assessment: Patient notes off and on nausea for one month. Also notes worsening control of his reflux symptoms. CTA/P shows significant subcarinal and bilateral hilar adenopathy and new subtle intrahepatic biliary dilatation and common duct dilatation . Obstructing lesion must be excluded, however.Splenic enlargement PLAN: -Increase protonix to 40mg bid -Zofran PRN for N/V -GI consult pending. Cellulitis 07/09/2018 07/13/2018 Abdominal wall cellulitis 12/01/20172021 Last Assessment & Plan: Assessment: Second Episode this year . Likely due to his constant picking of the skin of his abdomen. He is HDS, no leucocytosis,crp 2.6,ESR 2,lactate normal CTA/P shows no abscess nor cellulitis . PLAN: Continue ancef started in the ER. Continue bactrim as scheduled for prophylaxis - due to hx of liver transplant PRN morphine for pain. ID consult (because of his immunocompromised state - hx of liver transplant/ommunesuppresants) Wound care consult (re:open areas on his abdomen due to his scratching) F/up on blood Culture Ventral hernia without obstruction or gangrene 0 03/24/2017 04/22/2017 Lower abdominal pain 07/23/2016 04/22/2017 Dysuria 03/26/2016 07/21/2022 Opioid withdrawal 11/09/2015 04/22/2017 Overview: Thursday with opioid withdrawal after attempted discontinuation of fentanyl Resolution of symptoms after re-starting fentanyl -- Continue fentanyl patch with prn IVP fentanyl for breakthrough pain -- Drip stopped 3/2 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 01/19/2023 Overview: Critical illness polymyoneuropathy secondary to patient's critical illness requiring paralytics and bedridden state MRI brain and cervical-thoracic spine 11/12 unrevealing -- resting prafo boot -- Ankles have plantar deviation contractures - require stretching (aggressive) resting foot/ankle splints -- Physical therapy daily -- F/u any neuro recs Respiratory failure, post-operative 10/22/2015 04/22/2017 Overview: Pt intubated for OLT on 10/03/15, remained intubated d/t severe hypoxia (see hepato pulmonary syndrome) 11/01 s/p tracheostomy Very weak and debilitated, profound ICU neuromyopathy Currently improved, toleratingTC, passy etta valve capped -- continue trach collar, PMV Acute pneumothorax 10/17/2015 04/22/2017 Prerenal azotemia 10/17/2015 10/24/2015 Overview: Bun/ Creat ratio now trending down. Hypernatremia resolved -- trend Renal indices -- lasix 20 mg q8 Acute pulmonary embolism 10/17/2015 017 Spontaneous pneumothorax 10/16/2015 017 Overview: Pneumothorax discovered on CT chest 10/15 in setting of high PEEP requirements s/p chest tube placements x2 Last CT removed 11/02 CXR with small persistent Rt. Apical pneumothorax- not appeciated on today's CXR --continue to follow daily CXRs Pneumonia, organism unspecified([phone]) 10/16/2015 11/02/2015 Overview: CT of chest 10/15 shows RLL consolidation suspicious for pneumonia. Completed course of vanco and meropenem continuing micfungin. Sputum culture from 10/09 shows normal respiratory erum. legionella urinary antigen negative --ID following Sepsis due to other etiology 10/15/201505/2017 Overview: Has completed empiric courses of antibiotics for persistent low grade fevers and acute decompensation No obvious source of infection identified per extensive ID workup Vanco d/c 10/25, Meropenem d/c 10/26 11/04 Acute decompensation (fevers 11/05) empiric pip-tazo, vanc, micafungin added--> off since 11/11 (cultures negative) CT chest/ab/pelvis (11/08) with no evidence of infective process -- continue to monitor off ATB Postoperative shock 10/09/2015 04/22/2017 Overview: Shock, hypotension, fevers with increasing leukocytosis in setting of liver transplant, hepatopulmonary syndrome, ARDS, hypoxia. Profound hypoxia requiring nitric oxide therapy. Required low dose levo for BP support, now off. Concern for sepsis, blood cultures negative to date, vanco and zosyn started empirically 10/08. Procalcitonin 1.06. Lacate 1.8 -- Follow cultures -- continue vanco and zosyn -- levo for BP support (avoid fluid boluses if hypotensive) Electrolyte and fluid disorder 10/07/2015 0 04/22/2017 Overview: Hypomagnesemia repleted, hyperphos -- monitor and replete lytes daily -- increase daily PO mag oxide to 800 mg TID New onset seizure 10/05/2015 11/22/2019 Overview: Seizure activity 10/05, BEM supported the dx of cortical dysfunction in the left hemisphere with potential epileptogenicity in the left fronto-central region CT head negative for acute process, neurology consulted, loaded with Keppra Currently alert, follows commands -- weaned to Keppra 500mg bid -- neurology recommending follow up with epilepsy as outpatient ARDS (adult respiratory distress syndrome) 10/0504/22/2017 Overview: Hx of hepatopulmonary syndrome, pulmonary sarcoidosis requiring home O2 6-10 liters Pulmonary HTN with ~45% shunt. Pre-op PaO2 ~55 on RA CXR now with bilateral fluffy infiltrates / ARDS w/ pulmonary edema Desaturates with movement, turning, suctioning. Space = 60% today, with compliance ~45 -- maintain aggressive vent support (100% FiO2, wean PEEP is able as higher PEEP to increase shunt) -- lung protective strategies - Vt 6ml/kg ideal body weight (~350ml) -- trach on hold while unstable -- lasix TID -- Continue Nitric oxide -- increased I:E ratio -- avoid fluid boluses for hypotension - use pressors if needed -- sputum sent for culture Postoperative anemia due to acute blood loss 04/22/2017 Overview: S/P liver transplant with EBL 17 L c/b thrombocytopenia, coagulopahty and OP bleeding requiring intra-op nasal and pharyngeal packing Last transfused 10/08 2U PRBCs. 10/10: ENT removed nasal merocel. Clots in both nasopharyxes. No reinsertion of nasal tubes. -- monitor CBC and coags -- transfuse as required Agitation requiring sedation protocol 10/05/2015 04/22/2017 Overview: Required prolonged neuromuscular blockade with deep sedation secondary to increased WOB, breath stacking and hypoxia After discontinuation, he has had difficultly controlling agitation, likely opioid withdrawl. Had required precedex, fentanyl patch, prn haldol, seroquel Currently on seroquel, fentanyl patch Has been awake and alert, very cooperative -- continue on decreased TID seroquel dosing of 25mg TID and 150 mg qHS -- continue with fentanyl patch Acute post-operative pain 10/05/20152016 Overview: Was on prolonged fentanyl infusion d/t vent asynchrony, pain from liver tx Now transitioned to patch, infusion stopped 11/13 -- continue fentanyl patch (100mcg) Renal insufficiency 10/05/2015 10/08/2015 Overview: Secondary to hypotension Baseline Scr 0.66, now down to 0.83 Making good UO -- monitor renal indices Stress hyperglycemia 10/05/2015 04/22/2017 Overview: -- Adequate glycemic control with SSI Moderate protein-calorie malnutrition 10/05/2015 04/22/2017 Overview: Tolerating goal tube feeds Osmolite 1.2 @ 70 Prealbumin 26, transferrin 185 -- continue TF with fiber and beneprotien and full liquid diet -- nutrition following Abdominal distension 09/12/2015 04/22/2017 Overview: - concerning given weight gain of 30 lb from 09/04 - CT abdomen on last admission showed tissue edema> ascites, concern for third spacing in the abdominal wall tissue - no evidence of active infection, however, currently pancytopenia - was taking Lasix 20 mg PO every other day and spironolactone 50 mg PO daily - Liver vascular U/S demonstrates patent vasculature Plan - diuresis with Lasix 40 mg PO BID and spironolactone 100 mg PO daily - paracentesis as needed for respiratory function Liver transplant candidate 08/17/201504/22 Pain disorder with psychological factors 015 12/23/2021 Chronic abdominal pain 07/20/2015 3 Hyperammonemia 07/20/2015 04/22/2017 SUMMARY 06/14/2015 09/12/2015 Overview: Mr. 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 SOB (shortness of breath) 06/14/20152016 Overview: Started after dry run Possibly irritated by catheter? Systolic murmur also heard Chest x-ray and CT PE negative Currently at baseline New valvular lesion vs clot? -Echocardiogram -Doppler study -Observe for now Hepatic cirrhosis 06/14/2015 04/22/2017 Overview: #Cirrhosis -Continue lactulose, rifaximin -Continue aldactone Infection of other external stoma of urinary tra ct 05/17/2015 04/22/2017 UTI (lower urinary tract infection) 04/08/2015 04/22/2017 Overview: Was complaining of dysuria. UA positive with leukoesterase and Was started of ceftriaxone at OSH. Received 2 dosages here yesterday and one today. Will finish treatment for complicated UTI at home with cipro 500BID Hepatic encephalopathy 04/08/2015 7 Overview: On lactulose zinc Rifaximin Fever, low grade 11/03/2014 04/22/2017 Overview: Low grade fever on presentation UA clean Plan - Blood cx ngtd - afebrile since SUMMARY 08/31/2014 07/24/2016 Overview: The patient is a 50 yo male with a past medical history of HCV/ETOH Liver Cirrhosis c/b hepatopulmonary syndrome, hypersplenism, HE, Grade I EV, pulmonary sarcoidosis who presents with acute weight gain, abdominal distension, and SOB Fever and chills 08/31/2014 04/22/2017 Overview: Tmax 38.7 this AM; pt reports recent history of tooth extraction One time fever yesterday Received 2 time cefazolin after PFO closure. Plan: -UA, BCxx2 - NG till now -will hold off on abx for now and observe Retained dental root 08/15/2014 12/23/2021 Hepatopulmonary syndrome 03/12/2014 018 Overview: History of hepatopulmonary syndrome with ~45.2% shunt, pulmonary sarcoidosis requiring home O2 6-10 liters and mild pulmonary HTN Preop PaO2 ~55 on RA Profound hypoxia postoperatively requiring max vent support with high PEEP, heavy sedation/paralytics, flolan, nitric oxide (off since 10/26) Course c/b Right lung Pneumothorax, resp failure requiring trach 11/01 Decompensation 11/04 secondary to narcotic withdrawal +/- sepsis-->Drastically improved with fentanyl infusion, ATB. Updated echo 11/15 with EF 55%, normal RV Currently doing great, on continuous trach collar with passy etta valve, and diet -- Goal sats 85% -- Continue TC, PMV, OOB Bicytopenia 03/12/2014 04/22/2017 Overview: He has plat count of 20k and WCC of around 1000 His neutropenia is likely 2/2 to INF His thrombocytopenia is likley 2/2 to his cirrhosis Plan: Watch, transfuse plats if <10k or bleeding Pancytopenia 03/11/2014 03/12/2014 Hypoxemia 03/11/2014 10/15/2015 Overview: Due to underlying HPS Now on 100% Fio2 with last PaO2 60, Nitric oxide started 10/08, at 40 PPM. O2 sats maintaining in 80s CTS consulted for ECMO evaluation -- Given profound thrombocytopenia and grave condition ECMO not recommended -- Continue nitric oxide -- lung protective ventilation -- increased I:E ratio (at 2.4:1), paralyze with rocuronium if needed -- goal of O2 sats in 70s permissible COPD (chronic obstructive pulmonary disease) 03/12/2014 Coagulopathy 03/11/2014 04/22/2017 Syncope 01/03/2014 04/22/2017 Epididymitis 11/24/2013 04/22/2017 Testalgia 11/24/2013 04/22/2017 Thrombocytopenia 08/20/2009 04/22/2017 Overview: Platelets 96k today, received platelets 10/11 prior to liver biopsy. no obvious bleeding -- monitor CBC, coags -- transfuse as required -- monitor for bleeding -- transfuse plts prior to invasive procedures Hepatitis C 08/20/2009 11/03/2014 Cirrhosis 04/22/2017 Overview: Secondary to alcohol use and HCV complicated by ascites, PSE (on lactulose, rifaximin) and hepatopulmonary syndrome on home O2 s/p OLT on 10/03/15 Concern for rejection (humoral), now s/p thymo, IVIG, plasmapheresis 10/15 and 10/16 completed -hydrocortisone (switched from prednisone) now tapering down - MMF - FK documented as of this encounter (statuses as of 01/26/2023) [facility] History of Past illness Narrative* Problem Noted Date Resolved Date Neck pain 03/11/2022 07/21/2022 Hilar adenopathy 07/09/2018 08/19/2018 Last Assessment & Plan: Assessment: CT A/P on Admission shows Significant subcarinal and bilateral hilar adenopathy on the lower images through the chest. Lymphoproliferative disease suspected He does have a hx of sarcoid But no recent CT chest/CXR to compare. CT chest shows SPLENOMEGALY AND NUMEROUS ENLARGED MEDIASTINAL AND BILATERAL HILAR LYMPH NODES, INCREASED IN SIZE SINCE 2016. THE DIFFERENTIAL DIAGNOSIS INCLUDES SARCOIDOSIS AND LYMPHOPROLIFERATIVE DISEASE. PLAN: -Transfer to [facility] for further evaluation by oncology per ID recommedation. Nausea & vomiting 07/09/2018 07/28/2018 Last Assessment & Plan: Assessment: Patient notes off and on nausea for one month. Also notes worsening control of his reflux symptoms. CTA/P shows significant subcarinal and bilateral hilar adenopathy and new subtle intrahepatic biliary dilatation and common duct dilatation . Obstructing lesion must be excluded, however.Splenic enlargement PLAN: -Increase protonix to 40mg bid -Zofran PRN for N/V -GI consult pending. Cellulitis 07/09/2018 07/13/2018 Abdominal wall cellulitis 12/01/20172021 Last Assessment & Plan: Assessment: Second Episode this year . Likely due to his constant picking of the skin of his abdomen. He is HDS, no leucocytosis,crp 2.6,ESR 2,lactate normal CTA/P shows no abscess nor cellulitis . PLAN: Continue ancef started in the ER. Continue bactrim as scheduled for prophylaxis - due to hx of liver transplant PRN morphine for pain. 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 01/19/2023 Overview: Critical illness polymyoneuropathy secondary to patient's critical illness requiring paralytics and bedridden state MRI brain and cervical-thoracic spine 11/12 unrevealing -- resting prafo boot -- Ankles have plantar deviation contractures - require stretching (aggressive) resting foot/ankle splints -- Physical therapy daily -- F/u any neuro recs Respiratory failure, post-operative 10/22/2015 04/22/2017 Overview: Pt intubated for OLT on 10/03/15, remained intubated d/t severe hypoxia (see hepato pulmonary syndrome) 11/01 s/p tracheostomy Very weak and debilitated, profound ICU neuromyopathy Currently improved, toleratingTC, passy etta valve capped -- continue trach collar, PMV Acute pneumothorax 10/17/2015 04/22/2017 Prerenal azotemia 10/17/2015 10/24/2015 Overview: Bun/ Creat ratio now trending down. Hypernatremia resolved -- trend Renal indices -- lasix 20 mg q8 Acute pulmonary embolism 10/17/2015 017 Spontaneous pneumothorax 10/16/2015 017 Overview: Pneumothorax discovered on CT chest 10/15 in setting of high PEEP requirements s/p chest tube placements x2 Last CT removed 11/02 CXR with small persistent Rt. Apical pneumothorax- not appeciated on today's CXR --continue to follow daily CXRs Pneumonia, organism unspecified([phone]) 10/16/2015 11/02/2015 Overview: CT of chest 10/15 shows RLL consolidation suspicious for pneumonia. Completed course of vanco and meropenem continuing micfungin. Sputum culture from 10/09 shows normal respiratory erum. legionella urinary antigen negative --ID following Sepsis due to other etiology 10/15/201505/2017 Overview: Has completed empiric courses of antibiotics for persistent low grade fevers and acute decompensation No obvious source of infection identified per extensive ID workup Vanco d/c 10/25, Meropenem d/c 10/26 11/04 Acute decompensation (fevers 11/05) empiric pip-tazo, vanc, micafungin added--> off since 11/11 (cultures negative) CT chest/ab/pelvis (11/08) with no evidence of infective process -- continue to monitor off ATB Postoperative shock 10/09/2015 04/22/2017 Overview: Shock, hypotension, fevers with increasing leukocytosis in setting of liver transplant, hepatopulmonary syndrome, ARDS, hypoxia. Profound hypoxia requiring nitric oxide therapy. Required low dose levo for BP support, now off. Concern for sepsis, blood cultures negative to date, vanco and zosyn started empirically 10/08. Procalcitonin 1.06. Lacate 1.8 -- Follow cultures -- continue vanco and zosyn -- levo for BP support (avoid fluid boluses if hypotensive) Electrolyte and fluid disorder 10/07/2015 0 04/22/2017 Overview: Hypomagnesemia repleted, hyperphos -- monitor and replete lytes daily -- increase daily PO mag oxide to 800 mg TID New onset seizure 10/05/2015 11/22/2019 Overview: Seizure activity 10/05, BEM supported the dx of cortical dysfunction in the left hemisphere with potential epileptogenicity in the left fronto-central region CT head negative for acute process, neurology consulted, loaded with Keppra Currently alert, follows commands -- weaned to Keppra 500mg bid -- neurology recommending follow up with epilepsy as outpatient ARDS (adult respiratory distress syndrome) 10/0504/22/2017 Overview: Hx of hepatopulmonary syndrome, pulmonary sarcoidosis requiring home O2 6-10 liters Pulmonary HTN with ~45% shunt. Pre-op PaO2 ~55 on RA CXR now with bilateral fluffy infiltrates / ARDS w/ pulmonary edema Desaturates with movement, turning, suctioning. Space = 60% today, with compliance ~45 -- maintain aggressive vent support (100% FiO2, wean PEEP is able as higher PEEP to increase shunt) -- lung protective strategies - Vt 6ml/kg ideal body weight (~350ml) -- trach on hold while unstable -- lasix TID -- Continue Nitric oxide -- increased I:E ratio -- avoid fluid boluses for hypotension - use pressors if needed -- sputum sent for culture Postoperative anemia due to acute blood loss 04/22/2017 Overview: S/P liver transplant with EBL 17 L c/b thrombocytopenia, coagulopahty and OP bleeding requiring intra-op nasal and pharyngeal packing Last transfused 10/08 2U PRBCs. 10/10: ENT removed nasal merocel. Clots in both nasopharyxes. No reinsertion of nasal tubes. -- monitor CBC and coags -- transfuse as required Agitation requiring sedation protocol 10/05/2015 04/22/2017 Overview: Required prolonged neuromuscular blockade with deep sedation secondary to increased WOB, breath stacking and hypoxia After discontinuation, he has had difficultly controlling agitation, likely opioid withdrawl. Had required precedex, fentanyl patch, prn haldol, seroquel Currently on seroquel, fentanyl patch Has been awake and alert, very cooperative -- continue on decreased TID seroquel dosing of 25mg TID and 150 mg qHS -- continue with fentanyl patch Acute post-operative pain 10/05/20152016 Overview: Was on prolonged fentanyl infusion d/t vent asynchrony, pain from liver tx Now transitioned to patch, infusion stopped 11/13 -- continue fentanyl patch (100mcg) Renal insufficiency 10/05/2015 10/08/2015 Overview: Secondary to hypotension Baseline Scr 0.66, now down to 0.83 Making good UO -- monitor renal indices Stress hyperglycemia 10/05/2015 04/22/2017 Overview: -- Adequate glycemic control with SSI Moderate protein-calorie malnutrition 10/05/2015 04/22/2017 Overview: Tolerating goal tube feeds Osmolite 1.2 @ 70 Prealbumin 26, transferrin 185 -- continue TF with fiber and beneprotien and full liquid diet -- nutrition following Abdominal distension 09/12/2015 04/22/2017 Overview: - concerning given weight gain of 30 lb from 09/04 - CT abdomen on last admission showed tissue edema> ascites, concern for third spacing in the abdominal wall tissue - no evidence of active infection, however, currently pancytopenia - was taking Lasix 20 mg PO every other day and spironolactone 50 mg PO daily - Liver vascular U/S demonstrates patent vasculature Plan - diuresis with Lasix 40 mg PO BID and spironolactone 100 mg PO daily - paracentesis as needed for respiratory function Liver transplant candidate 08/17/201504/22 Pain disorder with psychological factors 015 12/23/2021 Chronic abdominal pain 07/20/2015 3 Hyperammonemia 07/20/2015 04/22/2017 SUMMARY 06/14/2015 09/12/2015 Overview: Mr. 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 SOB (shortness of breath) 06/14/20152016 Overview: Started after dry run Possibly irritated by catheter? Systolic murmur also heard Chest x-ray and CT PE negative Currently at baseline New valvular lesion vs clot? -Echocardiogram -Doppler study -Observe for now Hepatic cirrhosis 06/14/2015 04/22/2017 Overview: #Cirrhosis -Continue lactulose, rifaximin -Continue aldactone Infection of other external stoma of urinary tra ct 05/17/2015 04/22/2017 UTI (lower urinary tract infection) 04/08/2015 04/22/2017 Overview: Was complaining of dysuria. UA positive with leukoesterase and Was started of ceftriaxone at OSH. Received 2 dosages here yesterday and one today. Will finish treatment for complicated UTI at home with cipro 500BID Hepatic encephalopathy 04/08/2015 7 Overview: On lactulose zinc Rifaximin Fever, low grade 11/03/2014 04/22/2017 Overview: Low grade fever on presentation UA clean Plan - Blood cx ngtd - afebrile since SUMMARY 08/31/2014 07/24/2016 Overview: The patient is a 50 yo male with a past medical history of HCV/ETOH Liver Cirrhosis c/b hepatopulmonary syndrome, hypersplenism, HE, Grade I EV, pulmonary sarcoidosis who presents with acute weight gain, abdominal distension, and SOB Fever and chills 08/31/2014 04/22/2017 Overview: Tmax 38.7 this AM; pt reports recent history of tooth extraction One time fever yesterday Received 2 time cefazolin after PFO closure. Plan: -UA, BCxx2 - NG till now -will hold off on abx for now and observe Retained dental root 08/15/2014 12/23/2021 Hepatopulmonary syndrome 03/12/2014 018 Overview: History of hepatopulmonary syndrome with ~45.2% shunt, pulmonary sarcoidosis requiring home O2 6-10 liters and mild pulmonary HTN Preop PaO2 ~55 on RA Profound hypoxia postoperatively requiring max vent support with high PEEP, heavy sedation/paralytics, flolan, nitric oxide (off since 10/26) Course c/b Right lung Pneumothorax, resp failure requiring trach 11/01 Decompensation 11/04 secondary to narcotic withdrawal +/- sepsis-->Drastically improved with fentanyl infusion, ATB. Updated echo 11/15 with EF 55%, normal RV Currently doing great, on continuous trach collar with passy etta valve, and diet -- Goal sats 85% -- Continue TC, PMV, OOB Bicytopenia 03/12/2014 04/22/2017 Overview: He has plat count of 20k and WCC of around 1000 His neutropenia is likely 2/2 to INF His thrombocytopenia is likley 2/2 to his cirrhosis Plan: Watch, transfuse plats if <10k or bleeding Pancytopenia 03/11/2014 03/12/2014 Hypoxemia 03/11/2014 10/15/2015 Overview: Due to underlying HPS Now on 100% Fio2 with last PaO2 60, Nitric oxide started 10/08, at 40 PPM. O2 sats maintaining in 80s CTS consulted for ECMO evaluation -- Given profound thrombocytopenia and grave condition ECMO not recommended -- Continue nitric oxide -- lung protective ventilation -- increased I:E ratio (at 2.4:1), paralyze with rocuronium if needed -- goal of O2 sats in 70s permissible COPD (chronic obstructive pulmonary disease) 03/12/2014 Coagulopathy 03/11/2014 04/22/2017 Syncope 01/03/2014 04/22/2017 Epididymitis 11/24/2013 04/22/2017 Testalgia 11/24/2013 04/22/2017 Thrombocytopenia 08/20/2009 04/22/2017 Overview: Platelets 96k today, received platelets 10/11 prior to liver biopsy. no obvious bleeding -- monitor CBC, coags -- transfuse as required -- monitor for bleeding -- transfuse plts prior to invasive procedures Hepatitis C 08/20/2009 11/03/2014 Cirrhosis 04/22/2017 Overview: Secondary to alcohol use and HCV complicated by ascites, PSE (on lactulose, rifaximin) and hepatopulmonary syndrome on home O2 s/p OLT on 10/03/15 Concern for rejection (humoral), now s/p thymo, IVIG, plasmapheresis 10/15 and 10/16 completed -hydrocortisone (switched from prednisone) now tapering down - MMF - FK documented as of this encounter (statuses as of 02/09/2023) [facility]06[facility] History of Past illness Narrative* Problem Noted Date Diagnosed Date Resolved Date Neck pain 03/11/2022 07/21/2022 Hilar adenopathy 07/09/2018 08/19/2018 Last Assessment & Plan: Assessment: CT A/P on Admission shows Significant subcarinal and bilateral hilar adenopathy on the lower images through the chest. Lymphoproliferative disease suspected He does have a hx of sarcoid But no recent CT chest/CXR to compare. CT chest shows SPLENOMEGALY AND NUMEROUS ENLARGED MEDIASTINAL AND BILATERAL HILAR LYMPH NODES, INCREASED IN SIZE SINCE 2016. THE DIFFERENTIAL DIAGNOSIS INCLUDES SARCOIDOSIS AND LYMPHOPROLIFERATIVE DISEASE. PLAN: -Transfer to [facility] for further evaluation by oncology per ID recommedation. Nausea & vomiting 07/09/2018 07/28/2018 Last Assessment & Plan: Assessment: Patient notes off and on nausea for one month. Also notes worsening control of his reflux symptoms. CTA/P shows significant subcarinal and bilateral hilar adenopathy and new subtle intrahepatic biliary dilatation and common duct dilatation . Obstructing lesion must be excluded, however.Splenic enlargement PLAN: -Increase protonix to 40mg bid -Zofran PRN for N/V -GI consult pending. Cellulitis 07/09/2018 07/13/2018 Abdominal wall cellulitis 12/01/2017 Last Assessment & Plan: Assessment: Second Episode this year . Likely due to his constant picking of the skin of his abdomen. He is HDS, no leucocytosis,crp 2.6,ESR 2,lactate normal CTA/P shows no abscess nor cellulitis . PLAN: Continue ancef started in the ER. Continue bactrim as scheduled for prophylaxis - due to hx of liver transplant PRN morphine for pain. 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 Overview: Critical illness polymyoneuropathy secondary to patient's critical illness requiring paralytics and bedridden state MRI brain and cervical-thoracic spine 11/12 unrevealing -- resting prafo boot -- Ankles have plantar deviation contractures - require stretching (aggressive) resting foot/ankle splints -- Physical therapy daily -- F/u any neuro recs Respiratory failure, post-operative 10/22/2015 04/22/2017 Overview: Pt intubated for OLT on 10/03/15, remained intubated d/t severe hypoxia (see hepato pulmonary syndrome) 11/01 s/p tracheostomy Very weak and debilitated, profound ICU neuromyopathy Currently improved, toleratingTC, passy etta valve capped -- continue trach collar, PMV Acute pneumothorax 10/17/2015 7 Prerenal azotemia 10/17/2015 10/24/2015 Overview: Bun/ Creat ratio now trending down. Hypernatremia resolved -- trend Renal indices -- lasix 20 mg q8 Acute pulmonary embolism 10/17/201505/2017 Spontaneous pneumothorax 10/16/201505/2017 Overview: Pneumothorax discovered on CT chest 10/15 in setting of high PEEP requirements s/p chest tube placements x2 Last CT removed 11/02 CXR with small persistent Rt. Apical pneumothorax- not appeciated on today's CXR --continue to follow daily CXRs Pneumonia, organism unspecified([phone]) 10/16/2015 11/02/2015 Overview: CT of chest 10/15 shows RLL consolidation suspicious for pneumonia. Completed course of vanco and meropenem continuing micfungin. Sputum culture from 10/09 shows normal respiratory erum. legionella urinary antigen negative --ID following Sepsis due to other etiology 10/15/2015 04/22/2017 Overview: Has completed empiric courses of antibiotics for persistent low grade fevers and acute decompensation No obvious source of infection identified per extensive ID workup Vanco d/c 10/25, Meropenem d/c 10/26 11/04 Acute decompensation (fevers 11/05) empiric pip-tazo, vanc, micafungin added--> off since 11/11 (cultures negative) CT chest/ab/pelvis (11/08) with no evidence of infective process -- continue to monitor off ATB Postoperative shock 10/09/2015 04/22/20 17 Overview: Shock, hypotension, fevers with increasing leukocytosis in setting of liver transplant, hepatopulmonary syndrome, ARDS, hypoxia. Profound hypoxia requiring nitric oxide therapy. Required low dose levo for BP support, now off. Concern for sepsis, blood cultures negative to date, vanco and zosyn started empirically 10/08. Procalcitonin 1.06. Lacate 1.8 -- Follow cultures -- continue vanco and zosyn -- levo for BP support (avoid fluid boluses if hypotensive) Electrolyte and fluid disorder 10/07/2015 04/22/2017 Overview: Hypomagnesemia repleted, hyperphos -- monitor and replete lytes daily -- increase daily PO mag oxide to 800 mg TID New onset seizure 10/05/2015 11/22/2019 Overview: Seizure activity 10/05, BEM supported the dx of cortical dysfunction in the left hemisphere with potential epileptogenicity in the left fronto-central region CT head negative for acute process, neurology consulted, loaded with Keppra Currently alert, follows commands -- weaned to Keppra 500mg bid -- neurology recommending follow up with epilepsy as outpatient ARDS (adult respiratory distress syndrome) 10/05/2015 04/22/2017 Overview: Hx of hepatopulmonary syndrome, pulmonary sarcoidosis requiring home O2 6-10 liters Pulmonary HTN with ~45% shunt. Pre-op PaO2 ~55 on RA CXR now with bilateral fluffy infiltrates / ARDS w/ pulmonary edema Desaturates with movement, turning, suctioning. Space = 60% today, with compliance ~45 -- maintain aggressive vent support (100% FiO2, wean PEEP is able as higher PEEP to increase shunt) -- lung protective strategies - Vt 6ml/kg ideal body weight (~350ml) -- trach on hold while unstable -- lasix TID -- Continue Nitric oxide -- increased I:E ratio -- avoid fluid boluses for hypotension - use pressors if needed -- sputum sent for culture Postoperative anemia due to acute blood loss 04/22/2017 Overview: S/P liver transplant with EBL 17 L c/b thrombocytopenia, coagulopahty and OP bleeding requiring intra-op nasal and pharyngeal packing Last transfused 10/08 2U PRBCs. 10/10: ENT removed nasal merocel. Clots in both nasopharyxes. No reinsertion of nasal tubes. -- monitor CBC and coags -- transfuse as required Agitation requiring sedation protocol 10/05/2015 04/22/2017 Overview: Required prolonged neuromuscular blockade with deep sedation secondary to increased WOB, breath stacking and hypoxia After discontinuation, he has had difficultly controlling agitation, likely opioid withdrawl. Had required precedex, fentanyl patch, prn haldol, seroquel Currently on seroquel, fentanyl patch Has been awake and alert, very cooperative -- continue on decreased TID seroquel dosing of 25mg TID and 150 mg qHS -- continue with fentanyl patch Acute post-operative pain 10/05/2015 Overview: Was on prolonged fentanyl infusion d/t vent asynchrony, pain from liver tx Now transitioned to patch, infusion stopped 11/13 -- continue fentanyl patch (100mcg) Renal insufficiency 10/05/2015 10/08/19 16 Overview: Secondary to hypotension Baseline Scr 0.66, now down to 0.83 Making good UO -- monitor renal indices Stress hyperglycemia 10/05/2015 017 Overview: -- Adequate glycemic control with SSI Moderate protein-calorie malnutrition 10/05/2015 04/22/2017 Overview: Tolerating goal tube feeds Osmolite 1.2 @ 70 Prealbumin 26, transferrin 185 -- continue TF with fiber and beneprotien and full liquid diet -- nutrition following Abdominal distension 09/12/2015 017 Overview: - concerning given weight gain of 30 lb from 09/04 - CT abdomen on last admission showed tissue edema> ascites, concern for third spacing in the abdominal wall tissue - no evidence of active infection, however, currently pancytopenia - was taking Lasix 20 mg PO every other day and spironolactone 50 mg PO daily - Liver vascular U/S demonstrates patent vasculature Plan - diuresis with Lasix 40 mg PO BID and spironolactone 100 mg PO daily - paracentesis as needed for respiratory function Liver transplant candidate 08/17/2015 0 04/22/2017 Pain disorder with psychological factors 08/06/2015 12/23/2021 Chronic abdominal pain 07/20/201510/21 Hyperammonemia 07/20/2015 04/22/2017 SUMMARY 06/14/2015 09/12/2015 Overview: Mr. 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 SOB (shortness of breath) 06/14/2015 Overview: Started after dry run Possibly irritated by catheter? Systolic murmur also heard Chest x-ray and CT PE negative Currently at baseline New valvular lesion vs clot? -Echocardiogram -Doppler study -Observe for now Hepatic cirrhosis 06/14/2015 04/22/2017 Overview: #Cirrhosis -Continue lactulose, rifaximin -Continue aldactone Infection of other external stoma of urinary tract 05/17/2015 04/22/2017 UTI (lower urinary tract infection) 04/08/2015 04/22/2017 Overview: Was complaining of dysuria. UA positive with leukoesterase and Was started of ceftriaxone at OSH. Received 2 dosages here yesterday and one today. Will finish treatment for complicated UTI at home with cipro 500BID Hepatic encephalopathy 04/08/201504/22 Overview: On lactulose zinc Rifaximin Fever, low grade 11/03/2014 04/22/2017 Overview: Low grade fever on presentation UA clean Plan - Blood cx ngtd - afebrile since SUMMARY 08/31/2014 07/24/2016 Overview: The patient is a 50 yo male with a past medical history of HCV/ETOH Liver Cirrhosis c/b hepatopulmonary syndrome, hypersplenism, HE, Grade I EV, pulmonary sarcoidosis who presents with acute weight gain, abdominal distension, and SOB Fever and chills 08/31/2014 04/22/2017 Overview: Tmax 38.7 this AM; pt reports recent history of tooth extraction One time fever yesterday Received 2 time cefazolin after PFO closure. Plan: -UA, BCxx2 - NG till now -will hold off on abx for now and observe Retained dental root 08/15/2014 022 Hepatopulmonary syndrome 03/12/201402/2018 Overview: History of hepatopulmonary syndrome with ~45.2% shunt, pulmonary sarcoidosis requiring home O2 6-10 liters and mild pulmonary HTN Preop PaO2 ~55 on RA Profound hypoxia postoperatively requiring max vent support with high PEEP, heavy sedation/paralytics, flolan, nitric oxide (off since 10/26) Course c/b Right lung Pneumothorax, resp failure requiring trach 11/01 Decompensation 11/04 secondary to narcotic withdrawal +/- sepsis-->Drastically improved with fentanyl infusion, ATB. Updated echo 11/15 with EF 55%, normal RV Currently doing great, on continuous trach collar with passy etta valve, and diet -- Goal sats 85% -- Continue TC, PMV, OOB Bicytopenia 03/12/2014 04/22/2017 Overview: He has plat count of 20k and WCC of around 1000 His neutropenia is likely 2/2 to INF His thrombocytopenia is likley 2/2 to his cirrhosis Plan: Watch, transfuse plats if <10k or bleeding Pancytopenia 03/11/2014 03/12/2014 Hypoxemia 03/11/2014 10/15/2015 Overview: Due to underlying HPS Now on 100% Fio2 with last PaO2 60, Nitric oxide started 10/08, at 40 PPM. O2 sats maintaining in 80s CTS consulted for ECMO evaluation -- Given profound thrombocytopenia and grave condition ECMO not recommended -- Continue nitric oxide -- lung protective ventilation -- increased I:E ratio (at 2.4:1), paralyze with rocuronium if needed -- goal of O2 sats in 70s permissible COPD (chronic obstructive pulmonary disease) 4 03/12/2014 Coagulopathy 03/11/2014 04/22/2017 Syncope 01/03/2014 04/22/2017 Epididymitis 11/24/2013 04/22/2017 Testalgia 11/24/2013 04/22/2017 Thrombocytopenia 08/20/2009 04/22/2017 Overview: Platelets 96k today, received platelets 10/11 prior to liver biopsy. no obvious bleeding -- monitor CBC, coags -- transfuse as required -- monitor for bleeding -- transfuse plts prior to invasive procedures Hepatitis C 08/20/2009 11/03/2014 Cirrhosis 04/22/2017 Overview: Secondary to alcohol use and HCV complicated by ascites, PSE (on lactulose, rifaximin) and hepatopulmonary syndrome on home O2 s/p OLT on 10/03/15 Concern for rejection (humoral), now s/p thymo, IVIG, plasmapheresis 10/15 and 10/16 completed -hydrocortisone (switched from prednisone) now tapering down - MMF - FK documented as of this encounter (statuses as of 04/10/2023) [facility] History of Past illness Narrative* Problem Noted Date Diagnosed Date Resolved Date Neck pain 03/11/2022 07/21/2022 Hilar adenopathy 07/09/2018 08/19/2018 Last Assessment & Plan: Assessment: CT A/P on Admission shows Significant subcarinal and bilateral hilar adenopathy on the lower images through the chest. Lymphoproliferative disease suspected He does have a hx of sarcoid But no recent CT chest/CXR to compare. CT chest shows SPLENOMEGALY AND NUMEROUS ENLARGED MEDIASTINAL AND BILATERAL HILAR LYMPH NODES, INCREASED IN SIZE SINCE 2016. THE DIFFERENTIAL DIAGNOSIS INCLUDES SARCOIDOSIS AND LYMPHOPROLIFERATIVE DISEASE. PLAN: -Transfer to [facility] for further evaluation by oncology per ID recommedation. Nausea & vomiting 07/09/2018 07/28/2018 Last Assessment & Plan: Assessment: Patient notes off and on nausea for one month. Also notes worsening control of his reflux symptoms. CTA/P shows significant subcarinal and bilateral hilar adenopathy and new subtle intrahepatic biliary dilatation and common duct dilatation . Obstructing lesion must be excluded, however.Splenic enlargement PLAN: -Increase protonix to 40mg bid -Zofran PRN for N/V -GI consult pending. Cellulitis 07/09/2018 07/13/2018 Abdominal wall cellulitis 12/01/2017 Last Assessment & Plan: Assessment: Second Episode this year . Likely due to his constant picking of the skin of his abdomen. He is HDS, no leucocytosis,crp 2.6,ESR 2,lactate normal CTA/P shows no abscess nor cellulitis . PLAN: Continue ancef started in the ER. Continue bactrim as scheduled for prophylaxis - due to hx of liver transplant PRN morphine for pain. 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 Overview: Critical illness polymyoneuropathy secondary to patient's critical illness requiring paralytics and bedridden state MRI brain and cervical-thoracic spine 11/12 unrevealing -- resting prafo boot -- Ankles have plantar deviation contractures - require stretching (aggressive) resting foot/ankle splints -- Physical therapy daily -- F/u any neuro recs Respiratory failure, post-operative 10/22/2015 04/22/2017 Overview: Pt intubated for OLT on 10/03/15, remained intubated d/t severe hypoxia (see hepato pulmonary syndrome) 11/01 s/p tracheostomy Very weak and debilitated, profound ICU neuromyopathy Currently improved, toleratingTC, passy etta valve capped -- continue trach collar, PMV Acute pneumothorax 10/17/2015 7 Prerenal azotemia 10/17/2015 10/24/2015 Overview: Bun/ Creat ratio now trending down. Hypernatremia resolved -- trend Renal indices -- lasix 20 mg q8 Acute pulmonary embolism 10/17/201505/2017 Spontaneous pneumothorax 10/16/201505/2017 Overview: Pneumothorax discovered on CT chest 10/15 in setting of high PEEP requirements s/p chest tube placements x2 Last CT removed 11/02 CXR with small persistent Rt. Apical pneumothorax- not appeciated on today's CXR --continue to follow daily CXRs Pneumonia, organism unspecified([phone]) 10/16/2015 11/02/2015 Overview: CT of chest 10/15 shows RLL consolidation suspicious for pneumonia. Completed course of vanco and meropenem continuing micfungin. Sputum culture from 10/09 shows normal respiratory erum. legionella urinary antigen negative --ID following Sepsis due to other etiology 10/15/2015 04/22/2017 Overview: Has completed empiric courses of antibiotics for persistent low grade fevers and acute decompensation No obvious source of infection identified per extensive ID workup Vanco d/c 10/25, Meropenem d/c 10/26 11/04 Acute decompensation (fevers 11/05) empiric pip-tazo, vanc, micafungin added--> off since 11/11 (cultures negative) CT chest/ab/pelvis (11/08) with no evidence of infective process -- continue to monitor off ATB Postoperative shock 10/09/2015 04/22/20 17 Overview: Shock, hypotension, fevers with increasing leukocytosis in setting of liver transplant, hepatopulmonary syndrome, ARDS, hypoxia. Profound hypoxia requiring nitric oxide therapy. Required low dose levo for BP support, now off. Concern for sepsis, blood cultures negative to date, vanco and zosyn started empirically 10/08. Procalcitonin 1.06. Lacate 1.8 -- Follow cultures -- continue vanco and zosyn -- levo for BP support (avoid fluid boluses if hypotensive) Electrolyte and fluid disorder 10/07/2015 04/22/2017 Overview: Hypomagnesemia repleted, hyperphos -- monitor and replete lytes daily -- increase daily PO mag oxide to 800 mg TID New onset seizure 10/05/2015 11/22/2019 Overview: Seizure activity 10/05, BEM supported the dx of cortical dysfunction in the left hemisphere with potential epileptogenicity in the left fronto-central region CT head negative for acute process, neurology consulted, loaded with Keppra Currently alert, follows commands -- weaned to Keppra 500mg bid -- neurology recommending follow up with epilepsy as outpatient ARDS (adult respiratory distress syndrome) 10/05/2015 04/22/2017 Overview: Hx of hepatopulmonary syndrome, pulmonary sarcoidosis requiring home O2 6-10 liters Pulmonary HTN with ~45% shunt. Pre-op PaO2 ~55 on RA CXR now with bilateral fluffy infiltrates / ARDS w/ pulmonary edema Desaturates with movement, turning, suctioning. Space = 60% today, with compliance ~45 -- maintain aggressive vent support (100% FiO2, wean PEEP is able as higher PEEP to increase shunt) -- lung protective strategies - Vt 6ml/kg ideal body weight (~350ml) -- trach on hold while unstable -- lasix TID -- Continue Nitric oxide -- increased I:E ratio -- avoid fluid boluses for hypotension - use pressors if needed -- sputum sent for culture Postoperative anemia due to acute blood loss 04/22/2017 Overview: S/P liver transplant with EBL 17 L c/b thrombocytopenia, coagulopahty and OP bleeding requiring intra-op nasal and pharyngeal packing Last transfused 10/08 2U PRBCs. 10/10: ENT removed nasal merocel. Clots in both nasopharyxes. No reinsertion of nasal tubes. -- monitor CBC and coags -- transfuse as required Agitation requiring sedation protocol 10/05/2015 04/22/2017 Overview: Required prolonged neuromuscular blockade with deep sedation secondary to increased WOB, breath stacking and hypoxia After discontinuation, he has had difficultly controlling agitation, likely opioid withdrawl. Had required precedex, fentanyl patch, prn haldol, seroquel Currently on seroquel, fentanyl patch Has been awake and alert, very cooperative -- continue on decreased TID seroquel dosing of 25mg TID and 150 mg qHS -- continue with fentanyl patch Acute post-operative pain 10/05/2015 Overview: Was on prolonged fentanyl infusion d/t vent asynchrony, pain from liver tx Now transitioned to patch, infusion stopped 11/13 -- continue fentanyl patch (100mcg) Renal insufficiency 10/05/2015 10/08/19 16 Overview: Secondary to hypotension Baseline Scr 0.66, now down to 0.83 Making good UO -- monitor renal indices Stress hyperglycemia 10/05/2015 017 Overview: -- Adequate glycemic control with SSI Moderate protein-calorie malnutrition 10/05/2015 04/22/2017 Overview: Tolerating goal tube feeds Osmolite 1.2 @ 70 Prealbumin 26, transferrin 185 -- continue TF with fiber and beneprotien and full liquid diet -- nutrition following Abdominal distension 09/12/2015 017 Overview: - concerning given weight gain of 30 lb from 09/04 - CT abdomen on last admission showed tissue edema> ascites, concern for third spacing in the abdominal wall tissue - no evidence of active infection, however, currently pancytopenia - was taking Lasix 20 mg PO every other day and spironolactone 50 mg PO daily - Liver vascular U/S demonstrates patent vasculature Plan - diuresis with Lasix 40 mg PO BID and spironolactone 100 mg PO daily - paracentesis as needed for respiratory function Liver transplant candidate 08/17/2015 0 04/22/2017 Pain disorder with psychological factors 08/06/2015 12/23/2021 Chronic abdominal pain 07/20/201510/21 Hyperammonemia 07/20/2015 04/22/2017 SUMMARY 06/14/2015 09/12/2015 Overview: Mr. 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 SOB (shortness of breath) 06/14/2015 Overview: Started after dry run Possibly irritated by catheter? Systolic murmur also heard Chest x-ray and CT PE negative Currently at baseline New valvular lesion vs clot? -Echocardiogram -Doppler study -Observe for now Hepatic cirrhosis 06/14/2015 04/22/2017 Overview: #Cirrhosis -Continue lactulose, rifaximin -Continue aldactone Infection of other external stoma of urinary tract 05/17/2015 04/22/2017 UTI (lower urinary tract infection) 04/08/2015 04/22/2017 Overview: Was complaining of dysuria. UA positive with leukoesterase and Was started of ceftriaxone at OSH. Received 2 dosages here yesterday and one today. Will finish treatment for complicated UTI at home with cipro 500BID Hepatic encephalopathy 04/08/201504/22 Overview: On lactulose zinc Rifaximin Fever, low grade 11/03/2014 04/22/2017 Overview: Low grade fever on presentation UA clean Plan - Blood cx ngtd - afebrile since SUMMARY 08/31/2014 07/24/2016 Overview: The patient is a 50 yo male with a past medical history of HCV/ETOH Liver Cirrhosis c/b hepatopulmonary syndrome, hypersplenism, HE, Grade I EV, pulmonary sarcoidosis who presents with acute weight gain, abdominal distension, and SOB Fever and chills 08/31/2014 04/22/2017 Overview: Tmax 38.7 this AM; pt reports recent history of tooth extraction One time fever yesterday Received 2 time cefazolin after PFO closure. Plan: -UA, BCxx2 - NG till now -will hold off on abx for now and observe Retained dental root 08/15/2014 022 Hepatopulmonary syndrome 03/12/201402/2018 Overview: History of hepatopulmonary syndrome with ~45.2% shunt, pulmonary sarcoidosis requiring home O2 6-10 liters and mild pulmonary HTN Preop PaO2 ~55 on RA Profound hypoxia postoperatively requiring max vent support with high PEEP, heavy sedation/paralytics, flolan, nitric oxide (off since 10/26) Course c/b Right lung Pneumothorax, resp failure requiring trach 11/01 Decompensation 11/04 secondary to narcotic withdrawal +/- sepsis-->Drastically improved with fentanyl infusion, ATB. Updated echo 11/15 with EF 55%, normal RV Currently doing great, on continuous trach collar with passy etta valve, and diet -- Goal sats 85% -- Continue TC, PMV, OOB Bicytopenia 03/12/2014 04/22/2017 Overview: He has plat count of 20k and WCC of around 1000 His neutropenia is likely 2/2 to INF His thrombocytopenia is likley 2/2 to his cirrhosis Plan: Watch, transfuse plats if <10k or bleeding Pancytopenia 03/11/2014 03/12/2014 Hypoxemia 03/11/2014 10/15/2015 Overview: Due to underlying HPS Now on 100% Fio2 with last PaO2 60, Nitric oxide started 10/08, at 40 PPM. O2 sats maintaining in 80s CTS consulted for ECMO evaluation -- Given profound thrombocytopenia and grave condition ECMO not recommended -- Continue nitric oxide -- lung protective ventilation -- increased I:E ratio (at 2.4:1), paralyze with rocuronium if needed -- goal of O2 sats in 70s permissible COPD (chronic obstructive pulmonary disease) 4 03/12/2014 Coagulopathy 03/11/2014 04/22/2017 Syncope 01/03/2014 04/22/2017 Epididymitis 11/24/2013 04/22/2017 Testalgia 11/24/2013 04/22/2017 Thrombocytopenia 08/20/2009 04/22/2017 Overview: Platelets 96k today, received platelets 10/11 prior to liver biopsy. no obvious bleeding -- monitor CBC, coags -- transfuse as required -- monitor for bleeding -- transfuse plts prior to invasive procedures Hepatitis C 08/20/2009 11/03/2014 Cirrhosis 04/22/2017 Overview: Secondary to alcohol use and HCV complicated by ascites, PSE (on lactulose, rifaximin) and hepatopulmonary syndrome on home O2 s/p OLT on 10/03/15 Concern for rejection (humoral), now s/p thymo, IVIG, plasmapheresis 10/15 and 10/16 completed -hydrocortisone (switched from prednisone) now tapering down - MMF - FK documented as of this encounter (statuses as of 04/11/2023) [facility]06[facility] History of Past illness Narrative* Problem Noted Date Diagnosed Date Resolved Date Neck pain 03/11/2022 07/21/2022 Hilar adenopathy 07/09/2018 08/19/2018 Last Assessment & Plan: Assessment: CT A/P on Admission shows Significant subcarinal and bilateral hilar adenopathy on the lower images through the chest. Lymphoproliferative disease suspected He does have a hx of sarcoid But no recent CT chest/CXR to compare. CT chest shows SPLENOMEGALY AND NUMEROUS ENLARGED MEDIASTINAL AND BILATERAL HILAR LYMPH NODES, INCREASED IN SIZE SINCE 2016. THE DIFFERENTIAL DIAGNOSIS INCLUDES SARCOIDOSIS AND LYMPHOPROLIFERATIVE DISEASE. PLAN: -Transfer to [facility] for further evaluation by oncology per ID recommedation. Nausea & vomiting 07/09/2018 07/28/2018 Last Assessment & Plan: Assessment: Patient notes off and on nausea for one month. Also notes worsening control of his reflux symptoms. CTA/P shows significant subcarinal and bilateral hilar adenopathy and new subtle intrahepatic biliary dilatation and common duct dilatation . Obstructing lesion must be excluded, however.Splenic enlargement PLAN: -Increase protonix to 40mg bid -Zofran PRN for N/V -GI consult pending. Cellulitis 07/09/2018 07/13/2018 Abdominal wall cellulitis 12/01/2017 Last Assessment & Plan: Assessment: Second Episode this year . Likely due to his constant picking of the skin of his abdomen. He is HDS, no leucocytosis,crp 2.6,ESR 2,lactate normal CTA/P shows no abscess nor cellulitis . PLAN: Continue ancef started in the ER. Continue bactrim as scheduled for prophylaxis - due to hx of liver transplant PRN morphine for pain. 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 01/19/2023 Overview: Critical illness polymyoneuropathy secondary to patient's critical illness requiring paralytics and bedridden state MRI brain and cervical-thoracic spine 11/12 unrevealing -- resting prafo boot -- Ankles have plantar deviation contractures - require stretching (aggressive) resting foot/ankle splints -- Physical therapy daily -- F/u any neuro recs Respiratory failure, post-operative 10/22/2015 04/22/2017 Overview: Pt intubated for OLT on 10/03/15, remained intubated d/t severe hypoxia (see hepato pulmonary syndrome) 11/01 s/p tracheostomy Very weak and debilitated, profound ICU neuromyopathy Currently improved, toleratingTC, passy etta valve capped -- continue trach collar, PMV Acute pneumothorax 10/17/2015 7 Prerenal azotemia 10/17/2015 10/24/2015 Overview: Bun/ Creat ratio now trending down. Hypernatremia resolved -- trend Renal indices -- lasix 20 mg q8 Acute pulmonary embolism 10/17/201505/2017 Spontaneous pneumothorax 10/16/201505/2017 Overview: Pneumothorax discovered on CT chest 10/15 in setting of high PEEP requirements s/p chest tube placements x2 Last CT removed 11/02 CXR with small persistent Rt. Apical pneumothorax- not appeciated on today's CXR --continue to follow daily CXRs Pneumonia, organism unspecified([phone]) 10/16/2015 11/02/2015 Overview: CT of chest 10/15 shows RLL consolidation suspicious for pneumonia. Completed course of vanco and meropenem continuing micfungin. Sputum culture from 10/09 shows normal respiratory erum. legionella urinary antigen negative --ID following Sepsis due to other etiology 10/15/2015 04/22/2017 Overview: Has completed empiric courses of antibiotics for persistent low grade fevers and acute decompensation No obvious source of infection identified per extensive ID workup Vanco d/c 10/25, Meropenem d/c 10/26 11/04 Acute decompensation (fevers 11/05) empiric pip-tazo, vanc, micafungin added--> off since 11/11 (cultures negative) CT chest/ab/pelvis (11/08) with no evidence of infective process -- continue to monitor off ATB Postoperative shock 10/09/2015 04/22/20 17 Overview: Shock, hypotension, fevers with increasing leukocytosis in setting of liver transplant, hepatopulmonary syndrome, ARDS, hypoxia. Profound hypoxia requiring nitric oxide therapy. Required low dose levo for BP support, now off. Concern for sepsis, blood cultures negative to date, vanco and zosyn started empirically 10/08. Procalcitonin 1.06. Lacate 1.8 -- Follow cultures -- continue vanco and zosyn -- levo for BP support (avoid fluid boluses if hypotensive) Electrolyte and fluid disorder 10/07/2015 04/22/2017 Overview: Hypomagnesemia repleted, hyperphos -- monitor and replete lytes daily -- increase daily PO mag oxide to 800 mg TID New onset seizure 10/05/2015 11/22/2019 Overview: Seizure activity 10/05, BEM supported the dx of cortical dysfunction in the left hemisphere with potential epileptogenicity in the left fronto-central region CT head negative for acute process, neurology consulted, loaded with Keppra Currently alert, follows commands -- weaned to Keppra 500mg bid -- neurology recommending follow up with epilepsy as outpatient ARDS (adult respiratory distress syndrome) 10/05/2015 04/22/2017 Overview: Hx of hepatopulmonary syndrome, pulmonary sarcoidosis requiring home O2 6-10 liters Pulmonary HTN with ~45% shunt. Pre-op PaO2 ~55 on RA CXR now with bilateral fluffy infiltrates / ARDS w/ pulmonary edema Desaturates with movement, turning, suctioning. Space = 60% today, with compliance ~45 -- maintain aggressive vent support (100% FiO2, wean PEEP is able as higher PEEP to increase shunt) -- lung protective strategies - Vt 6ml/kg ideal body weight (~350ml) -- trach on hold while unstable -- lasix TID -- Continue Nitric oxide -- increased I:E ratio -- avoid fluid boluses for hypotension - use pressors if needed -- sputum sent for culture Postoperative anemia due to acute blood loss 04/22/2017 Overview: S/P liver transplant with EBL 17 L c/b thrombocytopenia, coagulopahty and OP bleeding requiring intra-op nasal and pharyngeal packing Last transfused 10/08 2U PRBCs. 10/10: ENT removed nasal merocel. Clots in both nasopharyxes. No reinsertion of nasal tubes. -- monitor CBC and coags -- transfuse as required Agitation requiring sedation protocol 10/05/2015 04/22/2017 Overview: Required prolonged neuromuscular blockade with deep sedation secondary to increased WOB, breath stacking and hypoxia After discontinuation, he has had difficultly controlling agitation, likely opioid withdrawl. Had required precedex, fentanyl patch, prn haldol, seroquel Currently on seroquel, fentanyl patch Has been awake and alert, very cooperative -- continue on decreased TID seroquel dosing of 25mg TID and 150 mg qHS -- continue with fentanyl patch Acute post-operative pain 10/05/2015 Overview: Was on prolonged fentanyl infusion d/t vent asynchrony, pain from liver tx Now transitioned to patch, infusion stopped 11/13 -- continue fentanyl patch (100mcg) Renal insufficiency 10/05/2015 10/08/19 16 Overview: Secondary to hypotension Baseline Scr 0.66, now down to 0.83 Making good UO -- monitor renal indices Stress hyperglycemia 10/05/2015 017 Overview: -- Adequate glycemic control with SSI Moderate protein-calorie malnutrition 10/05/2015 04/22/2017 Overview: Tolerating goal tube feeds Osmolite 1.2 @ 70 Prealbumin 26, transferrin 185 -- continue TF with fiber and beneprotien and full liquid diet -- nutrition following Abdominal distension 09/12/2015 017 Overview: - concerning given weight gain of 30 lb from 09/04 - CT abdomen on last admission showed tissue edema> ascites, concern for third spacing in the abdominal wall tissue - no evidence of active infection, however, currently pancytopenia - was taking Lasix 20 mg PO every other day and spironolactone 50 mg PO daily - Liver vascular U/S demonstrates patent vasculature Plan - diuresis with Lasix 40 mg PO BID and spironolactone 100 mg PO daily - paracentesis as needed for respiratory function Liver transplant candidate 08/17/2015 0 04/22/2017 Pain disorder with psychological factors 08/06/2015 12/23/2021 Chronic abdominal pain 07/20/201510/21 Hyperammonemia 07/20/2015 04/22/2017 SUMMARY 06/14/2015 09/12/2015 Overview: Mr. 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 SOB (shortness of breath) 06/14/2015 Overview: Started after dry run Possibly irritated by catheter? Systolic murmur also heard Chest x-ray and CT PE negative Currently at baseline New valvular lesion vs clot? -Echocardiogram -Doppler study -Observe for now Hepatic cirrhosis 06/14/2015 04/22/2017 Overview: #Cirrhosis -Continue lactulose, rifaximin -Continue aldactone Infection of other external stoma of urinary tract 05/17/2015 04/22/2017 UTI (lower urinary tract infection) 04/08/2015 04/22/2017 Overview: Was complaining of dysuria. UA positive with leukoesterase and Was started of ceftriaxone at OSH. Received 2 dosages here yesterday and one today. Will finish treatment for complicated UTI at home with cipro 500BID Hepatic encephalopathy 04/08/201504/22 Overview: On lactulose zinc Rifaximin Fever, low grade 11/03/2014 04/22/2017 Overview: Low grade fever on presentation UA clean Plan - Blood cx ngtd - afebrile since SUMMARY 08/31/2014 07/24/2016 Overview: The patient is a 50 yo male with a past medical history of HCV/ETOH Liver Cirrhosis c/b hepatopulmonary syndrome, hypersplenism, HE, Grade I EV, pulmonary sarcoidosis who presents with acute weight gain, abdominal distension, and SOB Fever and chills 08/31/2014 04/22/2017 Overview: Tmax 38.7 this AM; pt reports recent history of tooth extraction One time fever yesterday Received 2 time cefazolin after PFO closure. Plan: -UA, BCxx2 - NG till now -will hold off on abx for now and observe Retained dental root 08/15/2014 022 Hepatopulmonary syndrome 03/12/201402/2018 Overview: History of hepatopulmonary syndrome with ~45.2% shunt, pulmonary sarcoidosis requiring home O2 6-10 liters and mild pulmonary HTN Preop PaO2 ~55 on RA Profound hypoxia postoperatively requiring max vent support with high PEEP, heavy sedation/paralytics, flolan, nitric oxide (off since 10/26) Course c/b Right lung Pneumothorax, resp failure requiring trach 11/01 Decompensation 11/04 secondary to narcotic withdrawal +/- sepsis-->Drastically improved with fentanyl infusion, ATB. Updated echo 11/15 with EF 55%, normal RV Currently doing great, on continuous trach collar with passy etta valve, and diet -- Goal sats 85% -- Continue TC, PMV, OOB Bicytopenia 03/12/2014 04/22/2017 Overview: He has plat count of 20k and WCC of around 1000 His neutropenia is likely 2/2 to INF His thrombocytopenia is likley 2/2 to his cirrhosis Plan: Watch, transfuse plats if <10k or bleeding Pancytopenia 03/11/2014 03/12/2014 Hypoxemia 03/11/2014 10/15/2015 Overview: Due to underlying HPS Now on 100% Fio2 with last PaO2 60, Nitric oxide started 10/08, at 40 PPM. O2 sats maintaining in 80s CTS consulted for ECMO evaluation -- Given profound thrombocytopenia and grave condition ECMO not recommended -- Continue nitric oxide -- lung protective ventilation -- increased I:E ratio (at 2.4:1), paralyze with rocuronium if needed -- goal of O2 sats in 70s permissible COPD (chronic obstructive pulmonary disease) 4 03/12/2014 Coagulopathy 03/11/2014 04/22/2017 Syncope 01/03/2014 04/22/2017 Epididymitis 11/24/2013 04/22/2017 Testalgia 11/24/2013 04/22/2017 Thrombocytopenia 08/20/2009 04/22/2017 Overview: Platelets 96k today, received platelets 10/11 prior to liver biopsy. no obvious bleeding -- monitor CBC, coags -- transfuse as required -- monitor for bleeding -- transfuse plts prior to invasive procedures Hepatitis C 08/20/2009 11/03/2014 Cirrhosis 04/22/2017 Overview: Secondary to alcohol use and HCV complicated by ascites, PSE (on lactulose, rifaximin) and hepatopulmonary syndrome on home O2 s/p OLT on 10/03/15 Concern for rejection (humoral), now s/p thymo, IVIG, plasmapheresis 10/15 and 10/16 completed -hydrocortisone (switched from prednisone) now tapering down - MMF - FK documented as of this encounter (statuses as of 04/21/2023) [facility]06[facility] History of Past illness Narrative* Problem Noted Date Diagnosed Date Resolved Date Neck pain 03/11/2022 07/21/2022 Hilar adenopathy 07/09/2018 08/19/2018 Last Assessment & Plan: Assessment: CT A/P on Admission shows Significant subcarinal and bilateral hilar adenopathy on the lower images through the chest. Lymphoproliferative disease suspected He does have a hx of sarcoid But no recent CT chest/CXR to compare. CT chest shows SPLENOMEGALY AND NUMEROUS ENLARGED MEDIASTINAL AND BILATERAL HILAR LYMPH NODES, INCREASED IN SIZE SINCE 2016. THE DIFFERENTIAL DIAGNOSIS INCLUDES SARCOIDOSIS AND LYMPHOPROLIFERATIVE DISEASE. PLAN: -Transfer to [facility] for further evaluation by oncology per ID recommedation. Nausea & vomiting 07/09/2018 07/28/2018 Last Assessment & Plan: Assessment: Patient notes off and on nausea for one month. Also notes worsening control of his reflux symptoms. CTA/P shows significant subcarinal and bilateral hilar adenopathy and new subtle intrahepatic biliary dilatation and common duct dilatation . Obstructing lesion must be excluded, however.Splenic enlargement PLAN: -Increase protonix to 40mg bid -Zofran PRN for N/V -GI consult pending. Cellulitis 07/09/2018 07/13/2018 Abdominal wall cellulitis 12/01/2017 Last Assessment & Plan: Assessment: Second Episode this year . Likely due to his constant picking of the skin of his abdomen. He is HDS, no leucocytosis,crp 2.6,ESR 2,lactate normal CTA/P shows no abscess nor cellulitis . PLAN: Continue ancef started in the ER. Continue bactrim as scheduled for prophylaxis - due to hx of liver transplant PRN morphine for pain. 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 01/19/2023 Overview: Critical illness polymyoneuropathy secondary to patient's critical illness requiring paralytics and bedridden state MRI brain and cervical-thoracic spine 11/12 unrevealing -- resting prafo boot -- Ankles have plantar deviation contractures - require stretching (aggressive) resting foot/ankle splints -- Physical therapy daily -- F/u any neuro recs Respiratory failure, post-operative 10/22/2015 04/22/2017 Overview: Pt intubated for OLT on 10/03/15, remained intubated d/t severe hypoxia (see hepato pulmonary syndrome) 11/01 s/p tracheostomy Very weak and debilitated, profound ICU neuromyopathy Currently improved, toleratingTC, passy etta valve capped -- continue trach collar, PMV Acute pneumothorax 10/17/2015 7 Prerenal azotemia 10/17/2015 10/24/2015 Overview: Bun/ Creat ratio now trending down. Hypernatremia resolved -- trend Renal indices -- lasix 20 mg q8 Acute pulmonary embolism 10/17/201505/2017 Spontaneous pneumothorax 10/16/201505/2017 Overview: Pneumothorax discovered on CT chest 10/15 in setting of high PEEP requirements s/p chest tube placements x2 Last CT removed 11/02 CXR with small persistent Rt. Apical pneumothorax- not appeciated on today's CXR --continue to follow daily CXRs Pneumonia, organism unspecified(486) 10/16/2015 11/02/2015 Overview: CT of chest 10/15 shows RLL consolidation suspicious for pneumonia. Completed course of vanco and meropenem continuing micfungin. Sputum culture from 10/09 shows normal respiratory erum. legionella urinary antigen negative --ID following Sepsis due to other etiology 10/15/2015 04/22/2017 Overview: Has completed empiric courses of antibiotics for persistent low grade fevers and acute decompensation No obvious source of infection identified per extensive ID workup Vanco d/c 10/25, Meropenem d/c 10/26 11/04 Acute decompensation (fevers 11/05) empiric pip-tazo, vanc, micafungin added--> off since 11/11 (cultures negative) CT chest/ab/pelvis (11/08) with no evidence of infective process -- continue to monitor off ATB Postoperative shock 10/09/2015 04/22/20 17 Overview: Shock, hypotension, fevers with increasing leukocytosis in setting of liver transplant, hepatopulmonary syndrome, ARDS, hypoxia. Profound hypoxia requiring nitric oxide therapy. Required low dose levo for BP support, now off. Concern for sepsis, blood cultures negative to date, vanco and zosyn started empirically 10/08. Procalcitonin 1.06. Lacate 1.8 -- Follow cultures -- continue vanco and zosyn -- levo for BP support (avoid fluid boluses if hypotensive) Electrolyte and fluid disorder 10/07/2015 04/22/2017 Overview: Hypomagnesemia repleted, hyperphos -- monitor and replete lytes daily -- increase daily PO mag oxide to 800 mg TID New onset seizure 10/05/2015 11/22/2019 Overview: Seizure activity 10/05, BEM supported the dx of cortical dysfunction in the left hemisphere with potential epileptogenicity in the left fronto-central region CT head negative for acute process, neurology consulted, loaded with Keppra Currently alert, follows commands -- weaned to Keppra 500mg bid -- neurology recommending follow up with epilepsy as outpatient ARDS (adult respiratory distress syndrome) 10/05/2015 04/22/2017 Overview: Hx of hepatopulmonary syndrome, pulmonary sarcoidosis requiring home O2 6-10 liters Pulmonary HTN with ~45% shunt. Pre-op PaO2 ~55 on RA CXR now with bilateral fluffy infiltrates / ARDS w/ pulmonary edema Desaturates with movement, turning, suctioning. Space = 60% today, with compliance ~45 -- maintain aggressive vent support (100% FiO2, wean PEEP is able as higher PEEP to increase shunt) -- lung protective strategies - Vt 6ml/kg ideal body weight (~350ml) -- trach on hold while unstable -- lasix TID -- Continue Nitric oxide -- increased I:E ratio -- avoid fluid boluses for hypotension - use pressors if needed -- sputum sent for culture Postoperative anemia due to acute blood loss 04/22/2017 Overview: S/P liver transplant with EBL 17 L c/b thrombocytopenia, coagulopahty and OP bleeding requiring intra-op nasal and pharyngeal packing Last transfused 10/08 2U PRBCs. 10/10: ENT removed nasal merocel. Clots in both nasopharyxes. No reinsertion of nasal tubes. -- monitor CBC and coags -- transfuse as required Agitation requiring sedation protocol 10/05/2015 04/22/2017 Overview: Required prolonged neuromuscular blockade with deep sedation secondary to increased WOB, breath stacking and hypoxia After discontinuation, he has had difficultly controlling agitation, likely opioid withdrawl. Had required precedex, fentanyl patch, prn haldol, seroquel Currently on seroquel, fentanyl patch Has been awake and alert, very cooperative -- continue on decreased TID seroquel dosing of 25mg TID and 150 mg qHS -- continue with fentanyl patch Acute post-operative pain 10/05/2015 Overview: Was on prolonged fentanyl infusion d/t vent asynchrony, pain from liver tx Now transitioned to patch, infusion stopped 11/13 -- continue fentanyl patch (100mcg) Renal insufficiency 10/05/2015 10/08/19 16 Overview: Secondary to hypotension Baseline Scr 0.66, now down to 0.83 Making good UO -- monitor renal indices Stress hyperglycemia 10/05/2015 017 Overview: -- Adequate glycemic control with SSI Moderate protein-calorie malnutrition 10/05/2015 04/22/2017 Overview: Tolerating goal tube feeds Osmolite 1.2 @ 70 Prealbumin 26, transferrin 185 -- continue TF with fiber and beneprotien and full liquid diet -- nutrition following Abdominal distension 09/12/2015 017 Overview: - concerning given weight gain of 30 lb from 09/04 - CT abdomen on last admission showed tissue edema> ascites, concern for third spacing in the abdominal wall tissue - no evidence of active infection, however, currently pancytopenia - was taking Lasix 20 mg PO every other day and spironolactone 50 mg PO daily - Liver vascular U/S demonstrates patent vasculature Plan - diuresis with Lasix 40 mg PO BID and spironolactone 100 mg PO daily - paracentesis as needed for respiratory function Liver transplant candidate 08/17/2015 0 04/22/2017 Pain disorder with psychological factors 08/06/2015 12/23/2021 Chronic abdominal pain 07/20/201510/21 Hyperammonemia 07/20/2015 04/22/2017 SUMMARY 06/14/2015 09/12/2015 Overview: Mr. 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 SOB (shortness of breath) 06/14/2015 Overview: Started after dry run Possibly irritated by catheter? Systolic murmur also heard Chest x-ray and CT PE negative Currently at baseline New valvular lesion vs clot? -Echocardiogram -Doppler study -Observe for now Hepatic cirrhosis 06/14/2015 04/22/2017 Overview: #Cirrhosis -Continue lactulose, rifaximin -Continue aldactone Infection of other external stoma of urinary tract 05/17/2015 04/22/2017 UTI (lower urinary tract infection) 04/08/2015 04/22/2017 Overview: Was complaining of dysuria. UA positive with leukoesterase and Was started of ceftriaxone at OSH. Received 2 dosages here yesterday and one today. Will finish treatment for complicated UTI at home with cipro 500BID Hepatic encephalopathy 04/08/201504/22 Overview: On lactulose zinc Rifaximin Fever, low grade 11/03/2014 04/22/2017 Overview: Low grade fever on presentation UA clean Plan - Blood cx ngtd - afebrile since SUMMARY 08/31/2014 07/24/2016 Overview: The patient is a 50 yo male with a past medical history of HCV/ETOH Liver Cirrhosis c/b hepatopulmonary syndrome, hypersplenism, HE, Grade I EV, pulmonary sarcoidosis who presents with acute weight gain, abdominal distension, and SOB Fever and chills 08/31/2014 04/22/2017 Overview: Tmax 38.7 this AM; pt reports recent history of tooth extraction One time fever yesterday Received 2 time cefazolin after PFO closure. Plan: -UA, BCxx2 - NG till now -will hold off on abx for now and observe Retained dental root 08/15/2014 022 Hepatopulmonary syndrome 03/12/201402/2018 Overview: History of hepatopulmonary syndrome with ~45.2% shunt, pulmonary sarcoidosis requiring home O2 6-10 liters and mild pulmonary HTN Preop PaO2 ~55 on RA Profound hypoxia postoperatively requiring max vent support with high PEEP, heavy sedation/paralytics, flolan, nitric oxide (off since 10/26) Course c/b Right lung Pneumothorax, resp failure requiring trach 11/01 Decompensation 11/04 secondary to narcotic withdrawal +/- sepsis-->Drastically improved with fentanyl infusion, ATB. Updated echo 11/15 with EF 55%, normal RV Currently doing great, on continuous trach collar with passy etta valve, and diet -- Goal sats 85% -- Continue TC, PMV, OOB Bicytopenia 03/12/2014 04/22/2017 Overview: He has plat count of 20k and WCC of around 1000 His neutropenia is likely 2/2 to INF His thrombocytopenia is likley 2/2 to his cirrhosis Plan: Watch, transfuse plats if <10k or bleeding Pancytopenia 03/11/2014 03/12/2014 Hypoxemia 03/11/2014 10/15/2015 Overview: Due to underlying HPS Now on 100% Fio2 with last PaO2 60, Nitric oxide started 10/08, at 40 PPM. O2 sats maintaining in 80s CTS consulted for ECMO evaluation -- Given profound thrombocytopenia and grave condition ECMO not recommended -- Continue nitric oxide -- lung protective ventilation -- increased I:E ratio (at 2.4:1), paralyze with rocuronium if needed -- goal of O2 sats in 70s permissible COPD (chronic obstructive pulmonary disease) 4 03/12/2014 Coagulopathy 03/11/2014 04/22/2017 Syncope 01/03/2014 04/22/2017 Epididymitis 11/24/2013 04/22/2017 Testalgia 11/24/2013 04/22/2017 Thrombocytopenia 08/20/2009 04/22/2017 Overview: Platelets 96k today, received platelets 10/11 prior to liver biopsy. no obvious bleeding -- monitor CBC, coags -- transfuse as required -- monitor for bleeding -- transfuse plts prior to invasive procedures Hepatitis C 08/20/2009 11/03/2014 Cirrhosis 04/22/2017 Overview: Secondary to alcohol use and HCV complicated by ascites, PSE (on lactulose, rifaximin) and hepatopulmonary syndrome on home O2 s/p OLT on 10/03/15 Concern for rejection (humoral), now s/p thymo, IVIG, plasmapheresis 10/15 and 10/16 completed -hydrocortisone (switched from prednisone) now tapering down - MMF - FK documented as of this encounter (statuses as of 04/27/2023) [facility]06-28-2022 History of Past illness Narrative* Problem Noted Date Diagnosed Date Resolved Date Neck pain 03/11/2022 07/21/2022 Hilar adenopathy 07/09/2018 08/19/2018 Last Assessment & Plan: Assessment: CT A/P on Admission shows Significant subcarinal and bilateral hilar adenopathy on the lower images through the chest. Lymphoproliferative disease suspected He does have a hx of sarcoid But no recent CT chest/CXR to compare. CT chest shows SPLENOMEGALY AND NUMEROUS ENLARGED MEDIASTINAL AND BILATERAL HILAR LYMPH NODES, INCREASED IN SIZE SINCE 2016. THE DIFFERENTIAL DIAGNOSIS INCLUDES SARCOIDOSIS AND LYMPHOPROLIFERATIVE DISEASE. PLAN: -Transfer to [facility] for further evaluation by oncology per ID recommedation. Nausea & vomiting 07/09/2018 07/28/2018 Last Assessment & Plan: Assessment: Patient notes off and on nausea for one month. Also notes worsening control of his reflux symptoms. CTA/P shows significant subcarinal and bilateral hilar adenopathy and new subtle intrahepatic biliary dilatation and common duct dilatation . Obstructing lesion must be excluded, however.Splenic enlargement PLAN: -Increase protonix to 40mg bid -Zofran PRN for N/V -GI consult pending. Cellulitis 07/09/2018 07/13/2018 Abdominal wall cellulitis 12/01/2017 Last Assessment & Plan: Assessment: Second Episode this year . Likely due to his constant picking of the skin of his abdomen. He is HDS, no leucocytosis,crp 2.6,ESR 2,lactate normal CTA/P shows no abscess nor cellulitis . PLAN: Continue ancef started in the ER. Continue bactrim as scheduled for prophylaxis - due to hx of liver transplant PRN morphine for pain. 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 Overview: Critical illness polymyoneuropathy secondary to patient's critical illness requiring paralytics and bedridden state MRI brain and cervical-thoracic spine 11/12 unrevealing -- resting prafo boot -- Ankles have plantar deviation contractures - require stretching (aggressive) resting foot/ankle splints -- Physical therapy daily -- F/u any neuro recs Respiratory failure, post-operative 10/22/2015 04/22/2017 Overview: Pt intubated for OLT on 10/03/15, remained intubated d/t severe hypoxia (see hepato pulmonary syndrome) 11/01 s/p tracheostomy Very weak and debilitated, profound ICU neuromyopathy Currently improved, toleratingTC, passy etta valve capped -- continue trach collar, PMV Acute pneumothorax 10/17/2015 7 Prerenal azotemia 10/17/2015 10/24/2015 Overview: Bun/ Creat ratio now trending down. Hypernatremia resolved -- trend Renal indices -- lasix 20 mg q8 Acute pulmonary embolism 10/17/201505/2017 Spontaneous pneumothorax 10/16/201505/2017 Overview: Pneumothorax discovered on CT chest 10/15 in setting of high PEEP requirements s/p chest tube placements x2 Last CT removed 11/02 CXR with small persistent Rt. Apical pneumothorax- not appeciated on today's CXR --continue to follow daily CXRs Pneumonia, organism unspecified([phone]) 10/16/2015 11/02/2015 Overview: CT of chest 10/15 shows RLL consolidation suspicious for pneumonia. Completed course of vanco and meropenem continuing micfungin. Sputum culture from 10/09 shows normal respiratory erum. legionella urinary antigen negative --ID following Sepsis due to other etiology 10/15/2015 04/22/2017 Overview: Has completed empiric courses of antibiotics for persistent low grade fevers and acute decompensation No obvious source of infection identified per extensive ID workup Vanco d/c 10/25, Meropenem d/c 10/26 11/04 Acute decompensation (fevers 11/05) empiric pip-tazo, vanc, micafungin added--> off since 11/11 (cultures negative) CT chest/ab/pelvis (11/08) with no evidence of infective process -- continue to monitor off ATB Postoperative shock 10/09/2015 04/22/20 17 Overview: Shock, hypotension, fevers with increasing leukocytosis in setting of liver transplant, hepatopulmonary syndrome, ARDS, hypoxia. Profound hypoxia requiring nitric oxide therapy. Required low dose levo for BP support, now off. Concern for sepsis, blood cultures negative to date, vanco and zosyn started empirically 10/08. Procalcitonin 1.06. Lacate 1.8 -- Follow cultures -- continue vanco and zosyn -- levo for BP support (avoid fluid boluses if hypotensive) Electrolyte and fluid disorder 10/07/2015 04/22/2017 Overview: Hypomagnesemia repleted, hyperphos -- monitor and replete lytes daily -- increase daily PO mag oxide to 800 mg TID New onset seizure 10/05/2015 11/22/2019 Overview: Seizure activity 10/05, BEM supported the dx of cortical dysfunction in the left hemisphere with potential epileptogenicity in the left fronto-central region CT head negative for acute process, neurology consulted, loaded with Keppra Currently alert, follows commands -- weaned to Keppra 500mg bid -- neurology recommending follow up with epilepsy as outpatient ARDS (adult respiratory distress syndrome) 10/05/2015 04/22/2017 Overview: Hx of hepatopulmonary syndrome, pulmonary sarcoidosis requiring home O2 6-10 liters Pulmonary HTN with ~45% shunt. Pre-op PaO2 ~55 on RA CXR now with bilateral fluffy infiltrates / ARDS w/ pulmonary edema Desaturates with movement, turning, suctioning. Space = 60% today, with compliance ~45 -- maintain aggressive vent support (100% FiO2, wean PEEP is able as higher PEEP to increase shunt) -- lung protective strategies - Vt 6ml/kg ideal body weight (~350ml) -- trach on hold while unstable -- lasix TID -- Continue Nitric oxide -- increased I:E ratio -- avoid fluid boluses for hypotension - use pressors if needed -- sputum sent for culture Postoperative anemia due to acute blood loss 04/22/2017 Overview: S/P liver transplant with EBL 17 L c/b thrombocytopenia, coagulopahty and OP bleeding requiring intra-op nasal and pharyngeal packing Last transfused 10/08 2U PRBCs. 10/10: ENT removed nasal merocel. Clots in both nasopharyxes. No reinsertion of nasal tubes. -- monitor CBC and coags -- transfuse as required Agitation requiring sedation protocol 10/05/2015 04/22/2017 Overview: Required prolonged neuromuscular blockade with deep sedation secondary to increased WOB, breath stacking and hypoxia After discontinuation, he has had difficultly controlling agitation, likely opioid withdrawl. Had required precedex, fentanyl patch, prn haldol, seroquel Currently on seroquel, fentanyl patch Has been awake and alert, very cooperative -- continue on decreased TID seroquel dosing of 25mg TID and 150 mg qHS -- continue with fentanyl patch Acute post-operative pain 10/05/2015 Overview: Was on prolonged fentanyl infusion d/t vent asynchrony, pain from liver tx Now transitioned to patch, infusion stopped 11/13 -- continue fentanyl patch (100mcg) Renal insufficiency 10/05/2015 10/08/19 16 Overview: Secondary to hypotension Baseline Scr 0.66, now down to 0.83 Making good UO -- monitor renal indices Stress hyperglycemia 10/05/2015 017 Overview: -- Adequate glycemic control with SSI Moderate protein-calorie malnutrition 10/05/2015 04/22/2017 Overview: Tolerating goal tube feeds Osmolite 1.2 @ 70 Prealbumin 26, transferrin 185 -- continue TF with fiber and beneprotien and full liquid diet -- nutrition following Abdominal distension 09/12/2015 017 Overview: - concerning given weight gain of 30 lb from 09/04 - CT abdomen on last admission showed tissue edema> ascites, concern for third spacing in the abdominal wall tissue - no evidence of active infection, however, currently pancytopenia - was taking Lasix 20 mg PO every other day and spironolactone 50 mg PO daily - Liver vascular U/S demonstrates patent vasculature Plan - diuresis with Lasix 40 mg PO BID and spironolactone 100 mg PO daily - paracentesis as needed for respiratory function Liver transplant candidate 08/17/2015 0 04/22/2017 Pain disorder with psychological factors 08/06/2015 12/23/2021 Chronic abdominal pain 07/20/201510/21 Hyperammonemia 07/20/2015 04/22/2017 SUMMARY 06/14/2015 09/12/2015 Overview: Mr. 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 SOB (shortness of breath) 06/14/2015 Overview: Started after dry run Possibly irritated by catheter? Systolic murmur also heard Chest x-ray and CT PE negative Currently at baseline New valvular lesion vs clot? -Echocardiogram -Doppler study -Observe for now Hepatic cirrhosis 06/14/2015 04/22/2017 Overview: #Cirrhosis -Continue lactulose, rifaximin -Continue aldactone Infection of other external stoma of urinary tract 05/17/2015 04/22/2017 UTI (lower urinary tract infection) 04/08/2015 04/22/2017 Overview: Was complaining of dysuria. UA positive with leukoesterase and Was started of ceftriaxone at OSH. Received 2 dosages here yesterday and one today. Will finish treatment for complicated UTI at home with cipro 500BID Hepatic encephalopathy 04/08/201504/22 Overview: On lactulose zinc Rifaximin Fever, low grade 11/03/2014 04/22/2017 Overview: Low grade fever on presentation UA clean Plan - Blood cx ngtd - afebrile since SUMMARY 08/31/2014 07/24/2016 Overview: The patient is a 50 yo male with a past medical history of HCV/ETOH Liver Cirrhosis c/b hepatopulmonary syndrome, hypersplenism, HE, Grade I EV, pulmonary sarcoidosis who presents with acute weight gain, abdominal distension, and SOB Fever and chills 08/31/2014 04/22/2017 Overview: Tmax 38.7 this AM; pt reports recent history of tooth extraction One time fever yesterday Received 2 time cefazolin after PFO closure. Plan: -UA, BCxx2 - NG till now -will hold off on abx for now and observe Retained dental root 08/15/2014 022 Hepatopulmonary syndrome 03/12/201402/2018 Overview: History of hepatopulmonary syndrome with ~45.2% shunt, pulmonary sarcoidosis requiring home O2 6-10 liters and mild pulmonary HTN Preop PaO2 ~55 on RA Profound hypoxia postoperatively requiring max vent support with high PEEP, heavy sedation/paralytics, flolan, nitric oxide (off since 10/26) Course c/b Right lung Pneumothorax, resp failure requiring trach 11/01 Decompensation 11/04 secondary to narcotic withdrawal +/- sepsis-->Drastically improved with fentanyl infusion, ATB. Updated echo 11/15 with EF 55%, normal RV Currently doing great, on continuous trach collar with passy etta valve, and diet -- Goal sats 85% -- Continue TC, PMV, OOB Bicytopenia 03/12/2014 04/22/2017 Overview: He has plat count of 20k and WCC of around 1000 His neutropenia is likely 2/2 to INF His thrombocytopenia is likley 2/2 to his cirrhosis Plan: Watch, transfuse plats if <10k or bleeding Pancytopenia 03/11/2014 03/12/2014 Hypoxemia 03/11/2014 10/15/2015 Overview: Due to underlying HPS Now on 100% Fio2 with last PaO2 60, Nitric oxide started 10/08, at 40 PPM. O2 sats maintaining in 80s CTS consulted for ECMO evaluation -- Given profound thrombocytopenia and grave condition ECMO not recommended -- Continue nitric oxide -- lung protective ventilation -- increased I:E ratio (at 2.4:1), paralyze with rocuronium if needed -- goal of O2 sats in 70s permissible COPD (chronic obstructive pulmonary disease) 4 03/12/2014 Coagulopathy 03/11/2014 04/22/2017 Syncope 01/03/2014 04/22/2017 Epididymitis 11/24/2013 04/22/2017 Testalgia 11/24/2013 04/22/2017 Thrombocytopenia 08/20/2009 04/22/2017 Overview: Platelets 96k today, received platelets 10/11 prior to liver biopsy. no obvious bleeding -- monitor CBC, coags -- transfuse as required -- monitor for bleeding -- transfuse plts prior to invasive procedures Hepatitis C 08/20/2009 11/03/2014 Cirrhosis 04/22/2017 Overview: Secondary to alcohol use and HCV complicated by ascites, PSE (on lactulose, rifaximin) and hepatopulmonary syndrome on home O2 s/p OLT on 10/03/15 Concern for rejection (humoral), now s/p thymo, IVIG, plasmapheresis 10/15 and 10/16 completed -hydrocortisone (switched from prednisone) now tapering down - MMF - FK documented as of this encounter (statuses as of 05/01/2023) [facility]06-28-2022 History of Past illness Narrative* Problem Noted Date Diagnosed Date Resolved Date Neck pain 03/11/2022 07/21/2022 Hilar adenopathy 07/09/2018 08/19/2018 Last Assessment & Plan: Assessment: CT A/P on Admission shows Significant subcarinal and bilateral hilar adenopathy on the lower images through the chest. Lymphoproliferative disease suspected He does have a hx of sarcoid But no recent CT chest/CXR to compare. CT chest shows SPLENOMEGALY AND NUMEROUS ENLARGED MEDIASTINAL AND BILATERAL HILAR LYMPH NODES, INCREASED IN SIZE SINCE 2016. THE DIFFERENTIAL DIAGNOSIS INCLUDES SARCOIDOSIS AND LYMPHOPROLIFERATIVE DISEASE. PLAN: -Transfer to [facility] for further evaluation by oncology per ID recommedation. Nausea & vomiting 07/09/2018 07/28/2018 Last Assessment & Plan: Assessment: Patient notes off and on nausea for one month. Also notes worsening control of his reflux symptoms. CTA/P shows significant subcarinal and bilateral hilar adenopathy and new subtle intrahepatic biliary dilatation and common duct dilatation . Obstructing lesion must be excluded, however.Splenic enlargement PLAN: -Increase protonix to 40mg bid -Zofran PRN for N/V -GI consult pending. Cellulitis 07/09/2018 07/13/2018 Abdominal wall cellulitis 12/01/2017 Last Assessment & Plan: Assessment: Second Episode this year . Likely due to his constant picking of the skin of his abdomen. He is HDS, no leucocytosis,crp 2.6,ESR 2,lactate normal CTA/P shows no abscess nor cellulitis . PLAN: Continue ancef started in the ER. Continue bactrim as scheduled for prophylaxis - due to hx of liver transplant PRN morphine for pain. 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 Overview: Critical illness polymyoneuropathy secondary to patient's critical illness requiring paralytics and bedridden state MRI brain and cervical-thoracic spine 11/12 unrevealing -- resting prafo boot -- Ankles have plantar deviation contractures - require stretching (aggressive) resting foot/ankle splints -- Physical therapy daily -- F/u any neuro recs Respiratory failure, post-operative 10/22/2015 04/22/2017 Overview: Pt intubated for OLT on 10/03/15, remained intubated d/t severe hypoxia (see hepato pulmonary syndrome) 11/01 s/p tracheostomy Very weak and debilitated, profound ICU neuromyopathy Currently improved, toleratingTC, passy etta valve capped -- continue trach collar, PMV Acute pneumothorax 10/17/2015 7 Prerenal azotemia 10/17/2015 10/24/2015 Overview: Bun/ Creat ratio now trending down. Hypernatremia resolved -- trend Renal indices -- lasix 20 mg q8 Acute pulmonary embolism 10/17/201505/2017 Spontaneous pneumothorax 10/16/201505/2017 Overview: Pneumothorax discovered on CT chest 10/15 in setting of high PEEP requirements s/p chest tube placements x2 Last CT removed 11/02 CXR with small persistent Rt. Apical pneumothorax- not appeciated on today's CXR --continue to follow daily CXRs Pneumonia, organism unspecified(486) 10/16/2015 11/02/2015 Overview: CT of chest 10/15 shows RLL consolidation suspicious for pneumonia. Completed course of vanco and meropenem continuing micfungin. Sputum culture from 10/09 shows normal respiratory erum. legionella urinary antigen negative --ID following Sepsis due to other etiology 10/15/2015 04/22/2017 Overview: Has completed empiric courses of antibiotics for persistent low grade fevers and acute decompensation No obvious source of infection identified per extensive ID workup Vanco d/c 10/25, Meropenem d/c 10/26 11/04 Acute decompensation (fevers 11/05) empiric pip-tazo, vanc, micafungin added--> off since 11/11 (cultures negative) CT chest/ab/pelvis (11/08) with no evidence of infective process -- continue to monitor off ATB Postoperative shock 10/09/2015 04/22/20 17 Overview: Shock, hypotension, fevers with increasing leukocytosis in setting of liver transplant, hepatopulmonary syndrome, ARDS, hypoxia. Profound hypoxia requiring nitric oxide therapy. Required low dose levo for BP support, now off. Concern for sepsis, blood cultures negative to date, vanco and zosyn started empirically 10/08. Procalcitonin 1.06. Lacate 1.8 -- Follow cultures -- continue vanco and zosyn -- levo for BP support (avoid fluid boluses if hypotensive) Electrolyte and fluid disorder 10/07/2015 04/22/2017 Overview: Hypomagnesemia repleted, hyperphos -- monitor and replete lytes daily -- increase daily PO mag oxide to 800 mg TID New onset seizure 10/05/2015 11/22/2019 Overview: Seizure activity 10/05, BEM supported the dx of cortical dysfunction in the left hemisphere with potential epileptogenicity in the left fronto-central region CT head negative for acute process, neurology consulted, loaded with Keppra Currently alert, follows commands -- weaned to Keppra 500mg bid -- neurology recommending follow up with epilepsy as outpatient ARDS (adult respiratory distress syndrome) 10/05/2015 04/22/2017 Overview: Hx of hepatopulmonary syndrome, pulmonary sarcoidosis requiring home O2 6-10 liters Pulmonary HTN with ~45% shunt. Pre-op PaO2 ~55 on RA CXR now with bilateral fluffy infiltrates / ARDS w/ pulmonary edema Desaturates with movement, turning, suctioning. Space = 60% today, with compliance ~45 -- maintain aggressive vent support (100% FiO2, wean PEEP is able as higher PEEP to increase shunt) -- lung protective strategies - Vt 6ml/kg ideal body weight (~350ml) -- trach on hold while unstable -- lasix TID -- Continue Nitric oxide -- increased I:E ratio -- avoid fluid boluses for hypotension - use pressors if needed -- sputum sent for culture Postoperative anemia due to acute blood loss 04/22/2017 Overview: S/P liver transplant with EBL 17 L c/b thrombocytopenia, coagulopahty and OP bleeding requiring intra-op nasal and pharyngeal packing Last transfused 10/08 2U PRBCs. 10/10: ENT removed nasal merocel. Clots in both nasopharyxes. No reinsertion of nasal tubes. -- monitor CBC and coags -- transfuse as required Agitation requiring sedation protocol 10/05/2015 04/22/2017 Overview: Required prolonged neuromuscular blockade with deep sedation secondary to increased WOB, breath stacking and hypoxia After discontinuation, he has had difficultly controlling agitation, likely opioid withdrawl. Had required precedex, fentanyl patch, prn haldol, seroquel Currently on seroquel, fentanyl patch Has been awake and alert, very cooperative -- continue on decreased TID seroquel dosing of 25mg TID and 150 mg qHS -- continue with fentanyl patch Acute post-operative pain 10/05/2015 Overview: Was on prolonged fentanyl infusion d/t vent asynchrony, pain from liver tx Now transitioned to patch, infusion stopped 11/13 -- continue fentanyl patch (100mcg) Renal insufficiency 10/05/2015 10/08/19 16 Overview: Secondary to hypotension Baseline Scr 0.66, now down to 0.83 Making good UO -- monitor renal indices Stress hyperglycemia 10/05/2015 017 Overview: -- Adequate glycemic control with SSI Moderate protein-calorie malnutrition 10/05/2015 04/22/2017 Overview: Tolerating goal tube feeds Osmolite 1.2 @ 70 Prealbumin 26, transferrin 185 -- continue TF with fiber and beneprotien and full liquid diet -- nutrition following Abdominal distension 09/12/2015 017 Overview: - concerning given weight gain of 30 lb from 09/04 - CT abdomen on last admission showed tissue edema> ascites, concern for third spacing in the abdominal wall tissue - no evidence of active infection, however, currently pancytopenia - was taking Lasix 20 mg PO every other day and spironolactone 50 mg PO daily - Liver vascular U/S demonstrates patent vasculature Plan - diuresis with Lasix 40 mg PO BID and spironolactone 100 mg PO daily - paracentesis as needed for respiratory function Liver transplant candidate 08/17/2015 0 04/22/2017 Pain disorder with psychological factors 08/06/2015 12/23/2021 Chronic abdominal pain 07/20/201510/21 Hyperammonemia 07/20/2015 04/22/2017 SUMMARY 06/14/2015 09/12/2015 Overview: Mr. 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 SOB (shortness of breath) 06/14/2015 Overview: Started after dry run Possibly irritated by catheter? Systolic murmur also heard Chest x-ray and CT PE negative Currently at baseline New valvular lesion vs clot? -Echocardiogram -Doppler study -Observe for now Hepatic cirrhosis 06/14/2015 04/22/2017 Overview: #Cirrhosis -Continue lactulose, rifaximin -Continue aldactone Infection of other external stoma of urinary tract 05/17/2015 04/22/2017 UTI (lower urinary tract infection) 04/08/2015 04/22/2017 Overview: Was complaining of dysuria. UA positive with leukoesterase and Was started of ceftriaxone at OSH. Received 2 dosages here yesterday and one today. Will finish treatment for complicated UTI at home with cipro 500BID Hepatic encephalopathy 04/08/201504/22 Overview: On lactulose zinc Rifaximin Fever, low grade 11/03/2014 04/22/2017 Overview: Low grade fever on presentation UA clean Plan - Blood cx ngtd - afebrile since SUMMARY 08/31/2014 07/24/2016 Overview: The patient is a 50 yo male with a past medical history of HCV/ETOH Liver Cirrhosis c/b hepatopulmonary syndrome, hypersplenism, HE, Grade I EV, pulmonary sarcoidosis who presents with acute weight gain, abdominal distension, and SOB Fever and chills 08/31/2014 04/22/2017 Overview: Tmax 38.7 this AM; pt reports recent history of tooth extraction One time fever yesterday Received 2 time cefazolin after PFO closure. Plan: -UA, BCxx2 - NG till now -will hold off on abx for now and observe Retained dental root 08/15/2014 022 Hepatopulmonary syndrome 03/12/201402/2018 Overview: History of hepatopulmonary syndrome with ~45.2% shunt, pulmonary sarcoidosis requiring home O2 6-10 liters and mild pulmonary HTN Preop PaO2 ~55 on RA Profound hypoxia postoperatively requiring max vent support with high PEEP, heavy sedation/paralytics, flolan, nitric oxide (off since 10/26) Course c/b Right lung Pneumothorax, resp failure requiring trach 11/01 Decompensation 11/04 secondary to narcotic withdrawal +/- sepsis-->Drastically improved with fentanyl infusion, ATB. Updated echo 11/15 with EF 55%, normal RV Currently doing great, on continuous trach collar with passy etta valve, and diet -- Goal sats 85% -- Continue TC, PMV, OOB Bicytopenia 03/12/2014 04/22/2017 Overview: He has plat count of 20k and WCC of around 1000 His neutropenia is likely 2/2 to INF His thrombocytopenia is likley 2/2 to his cirrhosis Plan: Watch, transfuse plats if <10k or bleeding Pancytopenia 03/11/2014 03/12/2014 Hypoxemia 03/11/2014 10/15/2015 Overview: Due to underlying HPS Now on 100% Fio2 with last PaO2 60, Nitric oxide started 10/08, at 40 PPM. O2 sats maintaining in 80s CTS consulted for ECMO evaluation -- Given profound thrombocytopenia and grave condition ECMO not recommended -- Continue nitric oxide -- lung protective ventilation -- increased I:E ratio (at 2.4:1), paralyze with rocuronium if needed -- goal of O2 sats in 70s permissible COPD (chronic obstructive pulmonary disease) 4 03/12/2014 Coagulopathy 03/11/2014 04/22/2017 Syncope 01/03/2014 04/22/2017 Epididymitis 11/24/2013 04/22/2017 Testalgia 11/24/2013 04/22/2017 Thrombocytopenia 08/20/2009 04/22/2017 Overview: Platelets 96k today, received platelets 10/11 prior to liver biopsy. no obvious bleeding -- monitor CBC, coags -- transfuse as required -- monitor for bleeding -- transfuse plts prior to invasive procedures Hepatitis C 08/20/2009 11/03/2014 Cirrhosis 04/22/2017 Overview: Secondary to alcohol use and HCV complicated by ascites, PSE (on lactulose, rifaximin) and hepatopulmonary syndrome on home O2 s/p OLT on 10/03/15 Concern for rejection (humoral), now s/p thymo, IVIG, plasmapheresis 10/15 and 10/16 completed -hydrocortisone (switched from prednisone) now tapering down - MMF - FK documented as of this encounter (statuses as of 05/04/2023) [facility]06-[facility]22 History of Past illness Narrative* Problem Noted Date Diagnosed Date Resolved Date Neck pain 03/11/2022 07/21/2022 Hilar adenopathy 07/09/2018 08/19/2018 Last Assessment & Plan: Assessment: CT A/P on Admission shows Significant subcarinal and bilateral hilar adenopathy on the lower images through the chest. Lymphoproliferative disease suspected He does have a hx of sarcoid But no recent CT chest/CXR to compare. CT chest shows SPLENOMEGALY AND NUMEROUS ENLARGED MEDIASTINAL AND BILATERAL HILAR LYMPH NODES, INCREASED IN SIZE SINCE 2016. THE DIFFERENTIAL DIAGNOSIS INCLUDES SARCOIDOSIS AND LYMPHOPROLIFERATIVE DISEASE. PLAN: -Transfer to [facility] for further evaluation by oncology per ID recommedation. Nausea & vomiting 07/09/2018 07/28/2018 Last Assessment & Plan: Assessment: Patient notes off and on nausea for one month. Also notes worsening control of his reflux symptoms. CTA/P shows significant subcarinal and bilateral hilar adenopathy and new subtle intrahepatic biliary dilatation and common duct dilatation . Obstructing lesion must be excluded, however.Splenic enlargement PLAN: -Increase protonix to 40mg bid -Zofran PRN for N/V -GI consult pending. Cellulitis 07/09/2018 07/13/2018 Abdominal wall cellulitis 12/01/2017 Last Assessment & Plan: Assessment: Second Episode this year . Likely due to his constant picking of the skin of his abdomen. He is HDS, no leucocytosis,crp 2.6,ESR 2,lactate normal CTA/P shows no abscess nor cellulitis . PLAN: Continue ancef started in the ER. Continue bactrim as scheduled for prophylaxis - due to hx of liver transplant PRN morphine for pain. 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 Overview: Critical illness polymyoneuropathy secondary to patient's critical illness requiring paralytics and bedridden state MRI brain and cervical-thoracic spine 11/12 unrevealing -- resting prafo boot -- Ankles have plantar deviation contractures - require stretching (aggressive) resting foot/ankle splints -- Physical therapy daily -- F/u any neuro recs Respiratory failure, post-operative 10/22/2015 04/22/2017 Overview: Pt intubated for OLT on 10/03/15, remained intubated d/t severe hypoxia (see hepato pulmonary syndrome) 11/01 s/p tracheostomy Very weak and debilitated, profound ICU neuromyopathy Currently improved, toleratingTC, passy etta valve capped -- continue trach collar, PMV Acute pneumothorax 10/17/2015 7 Prerenal azotemia 10/17/2015 10/24/2015 Overview: Bun/ Creat ratio now trending down. Hypernatremia resolved -- trend Renal indices -- lasix 20 mg q8 Acute pulmonary embolism 10/17/201505/2017 Spontaneous pneumothorax 10/16/201505/2017 Overview: Pneumothorax discovered on CT chest 10/15 in setting of high PEEP requirements s/p chest tube placements x2 Last CT removed 11/02 CXR with small persistent Rt. Apical pneumothorax- not appeciated on today's CXR --continue to follow daily CXRs Pneumonia, organism unspecified([phone]) 10/16/2015 11/02/2015 Overview: CT of chest 10/15 shows RLL consolidation suspicious for pneumonia. Completed course of vanco and meropenem continuing micfungin. Sputum culture from 10/09 shows normal respiratory erum. legionella urinary antigen negative --ID following Sepsis due to other etiology 10/15/2015 04/22/2017 Overview: Has completed empiric courses of antibiotics for persistent low grade fevers and acute decompensation No obvious source of infection identified per extensive ID workup Vanco d/c 10/25, Meropenem d/c 10/26 11/04 Acute decompensation (fevers 11/05) empiric pip-tazo, vanc, micafungin added--> off since 11/11 (cultures negative) CT chest/ab/pelvis (11/08) with no evidence of infective process -- continue to monitor off ATB Postoperative shock 10/09/2015 04/22/20 17 Overview: Shock, hypotension, fevers with increasing leukocytosis in setting of liver transplant, hepatopulmonary syndrome, ARDS, hypoxia. Profound hypoxia requiring nitric oxide therapy. Required low dose levo for BP support, now off. Concern for sepsis, blood cultures negative to date, vanco and zosyn started empirically 10/08. Procalcitonin 1.06. Lacate 1.8 -- Follow cultures -- continue vanco and zosyn -- levo for BP support (avoid fluid boluses if hypotensive) Electrolyte and fluid disorder 10/07/2015 04/22/2017 Overview: Hypomagnesemia repleted, hyperphos -- monitor and replete lytes daily -- increase daily PO mag oxide to 800 mg TID New onset seizure 10/05/2015 11/22/2019 Overview: Seizure activity 10/05, BEM supported the dx of cortical dysfunction in the left hemisphere with potential epileptogenicity in the left fronto-central region CT head negative for acute process, neurology consulted, loaded with Keppra Currently alert, follows commands -- weaned to Keppra 500mg bid -- neurology recommending follow up with epilepsy as outpatient ARDS (adult respiratory distress syndrome) 10/05/2015 04/22/2017 Overview: Hx of hepatopulmonary syndrome, pulmonary sarcoidosis requiring home O2 6-10 liters Pulmonary HTN with ~45% shunt. Pre-op PaO2 ~55 on RA CXR now with bilateral fluffy infiltrates / ARDS w/ pulmonary edema Desaturates with movement, turning, suctioning. Space = 60% today, with compliance ~45 -- maintain aggressive vent support (100% FiO2, wean PEEP is able as higher PEEP to increase shunt) -- lung protective strategies - Vt 6ml/kg ideal body weight (~350ml) -- trach on hold while unstable -- lasix TID -- Continue Nitric oxide -- increased I:E ratio -- avoid fluid boluses for hypotension - use pressors if needed -- sputum sent for culture Postoperative anemia due to acute blood loss 6 04/22/2017 Overview: S/P liver transplant with EBL 17 L c/b thrombocytopenia, coagulopahty and OP bleeding requiring intra-op nasal and pharyngeal packing Last transfused 10/08 2U PRBCs. 10/10: ENT removed nasal merocel. Clots in both nasopharyxes. No reinsertion of nasal tubes. -- monitor CBC and coags -- transfuse as required Agitation requiring sedation protocol 10/05/2015 04/22/2017 Overview: Required prolonged neuromuscular blockade with deep sedation secondary to increased WOB, breath stacking and hypoxia After discontinuation, he has had difficultly controlling agitation, likely opioid withdrawl. Had required precedex, fentanyl patch, prn haldol, seroquel Currently on seroquel, fentanyl patch Has been awake and alert, very cooperative -- continue on decreased TID seroquel dosing of 25mg TID and 150 mg qHS -- continue with fentanyl patch Acute post-operative pain 10/05/2015 Overview: Was on prolonged fentanyl infusion d/t vent asynchrony, pain from liver tx Now transitioned to patch, infusion stopped 11/13 -- continue fentanyl patch (100mcg) Renal insufficiency 10/05/2015 10/08/19 16 Overview: Secondary to hypotension Baseline Scr 0.66, now down to 0.83 Making good UO -- monitor renal indices Stress hyperglycemia 10/05/2015 017 Overview: -- Adequate glycemic control with SSI Moderate protein-calorie malnutrition 10/05/2015 04/22/2017 Overview: Tolerating goal tube feeds Osmolite 1.2 @ 70 Prealbumin 26, transferrin 185 -- continue TF with fiber and beneprotien and full liquid diet -- nutrition following Abdominal distension 09/12/2015 017 Overview: - concerning given weight gain of 30 lb from 09/04 - CT abdomen on last admission showed tissue edema> ascites, concern for third spacing in the abdominal wall tissue - no evidence of active infection, however, currently pancytopenia - was taking Lasix 20 mg PO every other day and spironolactone 50 mg PO daily - Liver vascular U/S demonstrates patent vasculature Plan - diuresis with Lasix 40 mg PO BID and spironolactone 100 mg PO daily - paracentesis as needed for respiratory function Liver transplant candidate 08/17/2015 0 04/22/2017 Pain disorder with psychological factors 08/06/2015 12/23/2021 Chronic abdominal pain 07/20/201510/21 Hyperammonemia 07/20/2015 04/22/2017 SUMMARY 06/14/2015 09/12/2015 Overview: Mr. 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 SOB (shortness of breath) 06/14/2015 Overview: Started after dry run Possibly irritated by catheter? Systolic murmur also heard Chest x-ray and CT PE negative Currently at baseline New valvular lesion vs clot? -Echocardiogram -Doppler study -Observe for now Hepatic cirrhosis 06/14/2015 04/22/2017 Overview: #Cirrhosis -Continue lactulose, rifaximin -Continue aldactone Infection of other external stoma of urinary tract 05/17/2015 04/22/2017 UTI (lower urinary tract infection) 04/08/2015 04/22/2017 Overview: Was complaining of dysuria. UA positive with leukoesterase and Was started of ceftriaxone at OSH. Received 2 dosages here yesterday and one today. Will finish treatment for complicated UTI at home with cipro 500BID Hepatic encephalopathy 04/08/201504/22 Overview: On lactulose zinc Rifaximin Fever, low grade 11/03/2014 04/22/2017 Overview: Low grade fever on presentation UA clean Plan - Blood cx ngtd - afebrile since SUMMARY 08/31/2014 07/24/2016 Overview: The patient is a 50 yo male with a past medical history of HCV/ETOH Liver Cirrhosis c/b hepatopulmonary syndrome, hypersplenism, HE, Grade I EV, pulmonary sarcoidosis who presents with acute weight gain, abdominal distension, and SOB Fever and chills 08/31/2014 04/22/2017 Overview: Tmax 38.7 this AM; pt reports recent history of tooth extraction One time fever yesterday Received 2 time cefazolin after PFO closure. Plan: -UA, BCxx2 - NG till now -will hold off on abx for now and observe Retained dental root 08/15/2014 022 Hepatopulmonary syndrome 03/12/201402/2018 Overview: History of hepatopulmonary syndrome with ~45.2% shunt, pulmonary sarcoidosis requiring home O2 6-10 liters and mild pulmonary HTN Preop PaO2 ~55 on RA Profound hypoxia postoperatively requiring max vent support with high PEEP, heavy sedation/paralytics, flolan, nitric oxide (off since 10/26) Course c/b Right lung Pneumothorax, resp failure requiring trach 11/01 Decompensation 11/04 secondary to narcotic withdrawal +/- sepsis-->Drastically improved with fentanyl infusion, ATB. Updated echo 11/15 with EF 55%, normal RV Currently doing great, on continuous trach collar with passy etta valve, and diet -- Goal sats 85% -- Continue TC, PMV, OOB Bicytopenia 03/12/2014 04/22/2017 Overview: He has plat count of 20k and WCC of around 1000 His neutropenia is likely 2/2 to INF His thrombocytopenia is likley 2/2 to his cirrhosis Plan: Watch, transfuse plats if <10k or bleeding Pancytopenia 03/11/2014 03/12/2014 Hypoxemia 03/11/2014 10/15/2015 Overview: Due to underlying HPS Now on 100% Fio2 with last PaO2 60, Nitric oxide started 10/08, at 40 PPM. O2 sats maintaining in 80s CTS consulted for ECMO evaluation -- Given profound thrombocytopenia and grave condition ECMO not recommended -- Continue nitric oxide -- lung protective ventilation -- increased I:E ratio (at 2.4:1), paralyze with rocuronium if needed -- goal of O2 sats in 70s permissible COPD (chronic obstructive pulmonary disease) 4 03/12/2014 Coagulopathy 03/11/2014 04/22/2017 Syncope 01/03/2014 04/22/2017 Epididymitis 11/24/2013 04/22/2017 Testalgia 11/24/2013 04/22/2017 Thrombocytopenia 08/20/2009 04/22/2017 Overview: Platelets 96k today, received platelets 10/11 prior to liver biopsy. no obvious bleeding -- monitor CBC, coags -- transfuse as required -- monitor for bleeding -- transfuse plts prior to invasive procedures Hepatitis C 08/20/2009 11/03/2014 Cirrhosis 04/22/2017 Overview: Secondary to alcohol use and HCV complicated by ascites, PSE (on lactulose, rifaximin) and hepatopulmonary syndrome on home O2 s/p OLT on 10/03/15 Concern for rejection (humoral), now s/p thymo, IVIG, plasmapheresis 10/15 and 10/16 completed -hydrocortisone (switched from prednisone) now tapering down - MMF - FK documented as of this encounter (statuses as of 07/02/2023) [facility]06[facility] History of Past illness Narrative* Problem Noted Date Diagnosed Date Resolved Date Neck pain 03/11/2022 07/21/2022 Hilar adenopathy 07/09/2018 08/19/2018 Last Assessment & Plan: Assessment: CT A/P on Admission shows Significant subcarinal and bilateral hilar adenopathy on the lower images through the chest. Lymphoproliferative disease suspected He does have a hx of sarcoid But no recent CT chest/CXR to compare. CT chest shows SPLENOMEGALY AND NUMEROUS ENLARGED MEDIASTINAL AND BILATERAL HILAR LYMPH NODES, INCREASED IN SIZE SINCE 2016. THE DIFFERENTIAL DIAGNOSIS INCLUDES SARCOIDOSIS AND LYMPHOPROLIFERATIVE DISEASE. PLAN: -Transfer to [facility] for further evaluation by oncology per ID recommedation. Nausea & vomiting 07/09/2018 07/28/2018 Last Assessment & Plan: Assessment: Patient notes off and on nausea for one month. Also notes worsening control of his reflux symptoms. CTA/P shows significant subcarinal and bilateral hilar adenopathy and new subtle intrahepatic biliary dilatation and common duct dilatation . Obstructing lesion must be excluded, however.Splenic enlargement PLAN: -Increase protonix to 40mg bid -Zofran PRN for N/V -GI consult pending. JAROD (acute kidney injury) 07/09/2018 Last Assessment & Plan: Assessment: Cr on admission was 1.4. He was 1.34 on 07/05/18. He had CT with contrast today . He received one liter of normal saline in the ER PLAN: Gentle hydration and reasses with am labs Hold lisinopril for now. Avoid nephrotoxins Cellulitis 07/09/2018 07/13/2018 Abdominal wall cellulitis 12/01/2017 Last Assessment & Plan: Assessment: Second Episode this year . Likely due to his constant picking of the skin of his abdomen. He is HDS, no leucocytosis,crp 2.6,ESR 2,lactate normal CTA/P shows no abscess nor cellulitis . PLAN: Continue ancef started in the ER. Continue bactrim as scheduled for prophylaxis - due to hx of liver transplant PRN morphine for pain. 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 01/19/2023 Overview: Critical illness polymyoneuropathy secondary to patient's critical illness requiring paralytics and bedridden state MRI brain and cervical-thoracic spine 11/12 unrevealing -- resting prafo boot -- Ankles have plantar deviation contractures - require stretching (aggressive) resting foot/ankle splints -- Physical therapy daily -- F/u any neuro recs Respiratory failure, post-operative 10/22/2015 04/22/2017 Overview: Pt intubated for OLT on 10/03/15, remained intubated d/t severe hypoxia (see hepato pulmonary syndrome) 11/01 s/p tracheostomy Very weak and debilitated, profound ICU neuromyopathy Currently improved, toleratingTC, passy etta valve capped -- continue trach collar, PMV Acute pneumothorax 10/17/2015 7 Prerenal azotemia 10/17/2015 10/24/2015 Overview: Bun/ Creat ratio now trending down. Hypernatremia resolved -- trend Renal indices -- lasix 20 mg q8 Acute pulmonary embolism 10/17/201505/2017 Spontaneous pneumothorax 10/16/201505/2017 Overview: Pneumothorax discovered on CT chest 10/15 in setting of high PEEP requirements s/p chest tube placements x2 Last CT removed 11/02 CXR with small persistent Rt. Apical pneumothorax- not appeciated on today's CXR --continue to follow daily CXRs Pneumonia, organism unspecified(486) 10/16/2015 11/02/2015 Overview: CT of chest 10/15 shows RLL consolidation suspicious for pneumonia. Completed course of vanco and meropenem continuing micfungin. Sputum culture from 10/09 shows normal respiratory erum. legionella urinary antigen negative --ID following Sepsis due to other etiology 10/15/2015 04/22/2017 Overview: Has completed empiric courses of antibiotics for persistent low grade fevers and acute decompensation No obvious source of infection identified per extensive ID workup Vanco d/c 10/25, Meropenem d/c 10/26 11/04 Acute decompensation (fevers 11/05) empiric pip-tazo, vanc, micafungin added--> off since 11/11 (cultures negative) CT chest/ab/pelvis (11/08) with no evidence of infective process -- continue to monitor off ATB Postoperative shock 10/09/2015 04/22/20 17 Overview: Shock, hypotension, fevers with increasing leukocytosis in setting of liver transplant, hepatopulmonary syndrome, ARDS, hypoxia. Profound hypoxia requiring nitric oxide therapy. Required low dose levo for BP support, now off. Concern for sepsis, blood cultures negative to date, vanco and zosyn started empirically 10/08. Procalcitonin 1.06. Lacate 1.8 -- Follow cultures -- continue vanco and zosyn -- levo for BP support (avoid fluid boluses if hypotensive) Electrolyte and fluid disorder 10/07/2015 04/22/2017 Overview: Hypomagnesemia repleted, hyperphos -- monitor and replete lytes daily -- increase daily PO mag oxide to 800 mg TID New onset seizure 10/05/2015 11/22/2019 Overview: Seizure activity 10/05, BEM supported the dx of cortical dysfunction in the left hemisphere with potential epileptogenicity in the left fronto-central region CT head negative for acute process, neurology consulted, loaded with Keppra Currently alert, follows commands -- weaned to Keppra 500mg bid -- neurology recommending follow up with epilepsy as outpatient ARDS (adult respiratory distress syndrome) 10/05/2015 04/22/2017 Overview: Hx of hepatopulmonary syndrome, pulmonary sarcoidosis requiring home O2 6-10 liters Pulmonary HTN with ~45% shunt. Pre-op PaO2 ~55 on RA CXR now with bilateral fluffy infiltrates / ARDS w/ pulmonary edema Desaturates with movement, turning, suctioning. Space = 60% today, with compliance ~45 -- maintain aggressive vent support (100% FiO2, wean PEEP is able as higher PEEP to increase shunt) -- lung protective strategies - Vt 6ml/kg ideal body weight (~350ml) -- trach on hold while unstable -- lasix TID -- Continue Nitric oxide -- increased I:E ratio -- avoid fluid boluses for hypotension - use pressors if needed -- sputum sent for culture Postoperative anemia due to acute blood loss 6 04/22/2017 Overview: S/P liver transplant with EBL 17 L c/b thrombocytopenia, coagulopahty and OP bleeding requiring intra-op nasal and pharyngeal packing Last transfused 10/08 2U PRBCs. 10/10: ENT removed nasal merocel. Clots in both nasopharyxes. No reinsertion of nasal tubes. -- monitor CBC and coags -- transfuse as required Agitation requiring sedation protocol 10/05/2015 04/22/2017 Overview: Required prolonged neuromuscular blockade with deep sedation secondary to increased WOB, breath stacking and hypoxia After discontinuation, he has had difficultly controlling agitation, likely opioid withdrawl. Had required precedex, fentanyl patch, prn haldol, seroquel Currently on seroquel, fentanyl patch Has been awake and alert, very cooperative -- continue on decreased TID seroquel dosing of 25mg TID and 150 mg qHS -- continue with fentanyl patch Acute post-operative pain 10/05/2015 Overview: Was on prolonged fentanyl infusion d/t vent asynchrony, pain from liver tx Now transitioned to patch, infusion stopped 11/13 -- continue fentanyl patch (100mcg) Renal insufficiency 10/05/2015 10/08/19 16 Overview: Secondary to hypotension Baseline Scr 0.66, now down to 0.83 Making good UO -- monitor renal indices Stress hyperglycemia 10/05/2015 017 Overview: -- Adequate glycemic control with SSI Moderate protein-calorie malnutrition 10/05/2015 04/22/2017 Overview: Tolerating goal tube feeds Osmolite 1.2 @ 70 Prealbumin 26, transferrin 185 -- continue TF with fiber and beneprotien and full liquid diet -- nutrition following Abdominal distension 09/12/2015 017 Overview: - concerning given weight gain of 30 lb from 09/04 - CT abdomen on last admission showed tissue edema> ascites, concern for third spacing in the abdominal wall tissue - no evidence of active infection, however, currently pancytopenia - was taking Lasix 20 mg PO every other day and spironolactone 50 mg PO daily - Liver vascular U/S demonstrates patent vasculature Plan - diuresis with Lasix 40 mg PO BID and spironolactone 100 mg PO daily - paracentesis as needed for respiratory function Liver transplant candidate 08/17/2015 0 04/22/2017 Pain disorder with psychological factors 08/06/2015 12/23/2021 Chronic abdominal pain 07/20/201510/21 Hyperammonemia 07/20/2015 04/22/2017 SUMMARY 06/14/2015 09/12/2015 Overview: Mr. 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 SOB (shortness of breath) 06/14/2015 Overview: Started after dry run Possibly irritated by catheter? Systolic murmur also heard Chest x-ray and CT PE negative Currently at baseline New valvular lesion vs clot? -Echocardiogram -Doppler study -Observe for now Hepatic cirrhosis 06/14/2015 04/22/2017 Overview: #Cirrhosis -Continue lactulose, rifaximin -Continue aldactone Infection of other external stoma of urinary tract 05/17/2015 04/22/2017 UTI (lower urinary tract infection) 04/08/2015 04/22/2017 Overview: Was complaining of dysuria. UA positive with leukoesterase and Was started of ceftriaxone at OSH. Received 2 dosages here yesterday and one today. Will finish treatment for complicated UTI at home with cipro 500BID Hepatic encephalopathy 04/08/201504/22 Overview: On lactulose zinc Rifaximin Fever, low grade 11/03/2014 04/22/2017 Overview: Low grade fever on presentation UA clean Plan - Blood cx ngtd - afebrile since SUMMARY 08/31/2014 07/24/2016 Overview: The patient is a 50 yo male with a past medical history of HCV/ETOH Liver Cirrhosis c/b hepatopulmonary syndrome, hypersplenism, HE, Grade I EV, pulmonary sarcoidosis who presents with acute weight gain, abdominal distension, and SOB Fever and chills 08/31/2014 04/22/2017 Overview: Tmax 38.7 this AM; pt reports recent history of tooth extraction One time fever yesterday Received 2 time cefazolin after PFO closure. Plan: -UA, BCxx2 - NG till now -will hold off on abx for now and observe Retained dental root 08/15/2014 022 Hepatopulmonary syndrome 03/12/201402/2018 Overview: History of hepatopulmonary syndrome with ~45.2% shunt, pulmonary sarcoidosis requiring home O2 6-10 liters and mild pulmonary HTN Preop PaO2 ~55 on RA Profound hypoxia postoperatively requiring max vent support with high PEEP, heavy sedation/paralytics, flolan, nitric oxide (off since 10/26) Course c/b Right lung Pneumothorax, resp failure requiring trach 11/01 Decompensation 11/04 secondary to narcotic withdrawal +/- sepsis-->Drastically improved with fentanyl infusion, ATB. Updated echo 11/15 with EF 55%, normal RV Currently doing great, on continuous trach collar with passy etta valve, and diet -- Goal sats 85% -- Continue TC, PMV, OOB Bicytopenia 03/12/2014 04/22/2017 Overview: He has plat count of 20k and WCC of around 1000 His neutropenia is likely 2/2 to INF His thrombocytopenia is likley 2/2 to his cirrhosis Plan: Watch, transfuse plats if <10k or bleeding Pancytopenia 03/11/2014 03/12/2014 Hypoxemia 03/11/2014 10/15/2015 Overview: Due to underlying HPS Now on 100% Fio2 with last PaO2 60, Nitric oxide started 10/08, at 40 PPM. O2 sats maintaining in 80s CTS consulted for ECMO evaluation -- Given profound thrombocytopenia and grave condition ECMO not recommended -- Continue nitric oxide -- lung protective ventilation -- increased I:E ratio (at 2.4:1), paralyze with rocuronium if needed -- goal of O2 sats in 70s permissible COPD (chronic obstructive pulmonary disease) 4 03/12/2014 Coagulopathy 03/11/2014 04/22/2017 Syncope 01/03/2014 04/22/2017 Epididymitis 11/24/2013 04/22/2017 Testalgia 11/24/2013 04/22/2017 Thrombocytopenia 08/20/2009 04/22/2017 Overview: Platelets 96k today, received platelets 10/11 prior to liver biopsy. no obvious bleeding -- monitor CBC, coags -- transfuse as required -- monitor for bleeding -- transfuse plts prior to invasive procedures Hepatitis C 08/20/2009 11/03/2014 Cirrhosis 04/22/2017 Overview: Secondary to alcohol use and HCV complicated by ascites, PSE (on lactulose, rifaximin) and hepatopulmonary syndrome on home O2 s/p OLT on 10/03/15 Concern for rejection (humoral), now s/p thymo, IVIG, plasmapheresis 10/15 and 2/ completed -hydrocortisone (switched from prednisone) now tapering down - MMF - FK documented as of this encounter (statuses as of 07/11/2023) [facility]06[facility] History of Past illness Narrative* Problem Noted Date Diagnosed Date Resolved Date Neck pain 03/11/2022 07/21/2022 Hilar adenopathy 07/09/2018 08/19/2018 Last Assessment & Plan: Assessment: CT A/P on Admission shows Significant subcarinal and bilateral hilar adenopathy on the lower images through the chest. Lymphoproliferative disease suspected He does have a hx of sarcoid But no recent CT chest/CXR to compare. CT chest shows SPLENOMEGALY AND NUMEROUS ENLARGED MEDIASTINAL AND BILATERAL HILAR LYMPH NODES, INCREASED IN SIZE SINCE 2016. THE DIFFERENTIAL DIAGNOSIS INCLUDES SARCOIDOSIS AND LYMPHOPROLIFERATIVE DISEASE. PLAN: -Transfer to [facility] for further evaluation by oncology per ID recommedation. Nausea & vomiting 07/09/2018 07/28/2018 Last Assessment & Plan: Assessment: Patient notes off and on nausea for one month. Also notes worsening control of his reflux symptoms. CTA/P shows significant subcarinal and bilateral hilar adenopathy and new subtle intrahepatic biliary dilatation and common duct dilatation . Obstructing lesion must be excluded, however.Splenic enlargement PLAN: -Increase protonix to 40mg bid -Zofran PRN for N/V -GI consult pending. JAROD (acute kidney injury) 07/09/2018 Last Assessment & Plan: Assessment: Cr on admission was 1.4. He was 1.34 on 07/05/18. He had CT with contrast today . He received one liter of normal saline in the ER PLAN: Gentle hydration and reasses with am labs Hold lisinopril for now. Avoid nephrotoxins Cellulitis 07/09/2018 07/13/2018 Abdominal wall cellulitis 12/01/2017 Last Assessment & Plan: Assessment: Second Episode this year . Likely due to his constant picking of the skin of his abdomen. He is HDS, no leucocytosis,crp 2.6,ESR 2,lactate normal CTA/P shows no abscess nor cellulitis . PLAN: Continue ancef started in the ER. Continue bactrim as scheduled for prophylaxis - due to hx of liver transplant PRN morphine for pain. 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 Overview: Critical illness polymyoneuropathy secondary to patient's critical illness requiring paralytics and bedridden state MRI brain and cervical-thoracic spine 11/12 unrevealing -- resting prafo boot -- Ankles have plantar deviation contractures - require stretching (aggressive) resting foot/ankle splints -- Physical therapy daily -- F/u any neuro recs Respiratory failure, post-operative 10/22/2015 04/22/2017 Overview: Pt intubated for OLT on 10/03/15, remained intubated d/t severe hypoxia (see hepato pulmonary syndrome) 11/01 s/p tracheostomy Very weak and debilitated, profound ICU neuromyopathy Currently improved, toleratingTC, passy etta valve capped -- continue trach collar, PMV Acute pneumothorax 10/17/2015 7 Prerenal azotemia 10/17/2015 10/24/2015 Overview: Bun/ Creat ratio now trending down. Hypernatremia resolved -- trend Renal indices -- lasix 20 mg q8 Acute pulmonary embolism 10/17/201505/2017 Spontaneous pneumothorax 10/16/201505/2017 Overview: Pneumothorax discovered on CT chest 10/15 in setting of high PEEP requirements s/p chest tube placements x2 Last CT removed 11/02 CXR with small persistent Rt. Apical pneumothorax- not appeciated on today's CXR --continue to follow daily CXRs Pneumonia, organism unspecified([phone]) 10/16/2015 11/02/2015 Overview: CT of chest 10/15 shows RLL consolidation suspicious for pneumonia. Completed course of vanco and meropenem continuing micfungin. Sputum culture from 10/09 shows normal respiratory erum. legionella urinary antigen negative --ID following Sepsis due to other etiology 10/15/2015 04/22/2017 Overview: Has completed empiric courses of antibiotics for persistent low grade fevers and acute decompensation No obvious source of infection identified per extensive ID workup Vanco d/c 10/25, Meropenem d/c 10/26 11/04 Acute decompensation (fevers 11/05) empiric pip-tazo, vanc, micafungin added--> off since 11/11 (cultures negative) CT chest/ab/pelvis (11/08) with no evidence of infective process -- continue to monitor off ATB Postoperative shock 10/09/2015 04/22/20 17 Overview: Shock, hypotension, fevers with increasing leukocytosis in setting of liver transplant, hepatopulmonary syndrome, ARDS, hypoxia. Profound hypoxia requiring nitric oxide therapy. Required low dose levo for BP support, now off. Concern for sepsis, blood cultures negative to date, vanco and zosyn started empirically 10/08. Procalcitonin 1.06. Lacate 1.8 -- Follow cultures -- continue vanco and zosyn -- levo for BP support (avoid fluid boluses if hypotensive) Electrolyte and fluid disorder 10/07/2015 04/22/2017 Overview: Hypomagnesemia repleted, hyperphos -- monitor and replete lytes daily -- increase daily PO mag oxide to 800 mg TID New onset seizure 10/05/2015 11/22/2019 Overview: Seizure activity 10/05, BEM supported the dx of cortical dysfunction in the left hemisphere with potential epileptogenicity in the left fronto-central region CT head negative for acute process, neurology consulted, loaded with Keppra Currently alert, follows commands -- weaned to Keppra 500mg bid -- neurology recommending follow up with epilepsy as outpatient ARDS (adult respiratory distress syndrome) 10/05/2015 04/22/2017 Overview: Hx of hepatopulmonary syndrome, pulmonary sarcoidosis requiring home O2 6-10 liters Pulmonary HTN with ~45% shunt. Pre-op PaO2 ~55 on RA CXR now with bilateral fluffy infiltrates / ARDS w/ pulmonary edema Desaturates with movement, turning, suctioning. Space = 60% today, with compliance ~45 -- maintain aggressive vent support (100% FiO2, wean PEEP is able as higher PEEP to increase shunt) -- lung protective strategies - Vt 6ml/kg ideal body weight (~350ml) -- trach on hold while unstable -- lasix TID -- Continue Nitric oxide -- increased I:E ratio -- avoid fluid boluses for hypotension - use pressors if needed -- sputum sent for culture Postoperative anemia due to acute blood loss 04/22/2017 Overview: S/P liver transplant with EBL 17 L c/b thrombocytopenia, coagulopahty and OP bleeding requiring intra-op nasal and pharyngeal packing Last transfused 10/08 2U PRBCs. 10/10: ENT removed nasal merocel. Clots in both nasopharyxes. No reinsertion of nasal tubes. -- monitor CBC and coags -- transfuse as required Agitation requiring sedation protocol 10/05/2015 04/22/2017 Overview: Required prolonged neuromuscular blockade with deep sedation secondary to increased WOB, breath stacking and hypoxia After discontinuation, he has had difficultly controlling agitation, likely opioid withdrawl. Had required precedex, fentanyl patch, prn haldol, seroquel Currently on seroquel, fentanyl patch Has been awake and alert, very cooperative -- continue on decreased TID seroquel dosing of 25mg TID and 150 mg qHS -- continue with fentanyl patch Acute post-operative pain 10/05/2015 Overview: Was on prolonged fentanyl infusion d/t vent asynchrony, pain from liver tx Now transitioned to patch, infusion stopped 11/13 -- continue fentanyl patch (100mcg) Renal insufficiency 10/05/2015 10/08/19 16 Overview: Secondary to hypotension Baseline Scr 0.66, now down to 0.83 Making good UO -- monitor renal indices Stress hyperglycemia 10/05/2015 017 Overview: -- Adequate glycemic control with SSI Moderate protein-calorie malnutrition 10/05/2015 04/22/2017 Overview: Tolerating goal tube feeds Osmolite 1.2 @ 70 Prealbumin 26, transferrin 185 -- continue TF with fiber and beneprotien and full liquid diet -- nutrition following Abdominal distension 09/12/2015 017 Overview: - concerning given weight gain of 30 lb from 09/04 - CT abdomen on last admission showed tissue edema> ascites, concern for third spacing in the abdominal wall tissue - no evidence of active infection, however, currently pancytopenia - was taking Lasix 20 mg PO every other day and spironolactone 50 mg PO daily - Liver vascular U/S demonstrates patent vasculature Plan - diuresis with Lasix 40 mg PO BID and spironolactone 100 mg PO daily - paracentesis as needed for respiratory function Liver transplant candidate 08/17/2015 0 04/22/2017 Pain disorder with psychological factors 08/06/2015 12/23/2021 Chronic abdominal pain 07/20/201510/21 Hyperammonemia 07/20/2015 04/22/2017 SUMMARY 06/14/2015 09/12/2015 Overview: Mr. 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 SOB (shortness of breath) 06/14/2015 Overview: Started after dry run Possibly irritated by catheter? Systolic murmur also heard Chest x-ray and CT PE negative Currently at baseline New valvular lesion vs clot? -Echocardiogram -Doppler study -Observe for now Hepatic cirrhosis 06/14/2015 04/22/2017 Overview: #Cirrhosis -Continue lactulose, rifaximin -Continue aldactone Infection of other external stoma of urinary tract 05/17/2015 04/22/2017 UTI (lower urinary tract infection) 04/08/2015 04/22/2017 Overview: Was complaining of dysuria. UA positive with leukoesterase and Was started of ceftriaxone at OSH. Received 2 dosages here yesterday and one today. Will finish treatment for complicated UTI at home with cipro 500BID Hepatic encephalopathy 04/08/201504/22 Overview: On lactulose zinc Rifaximin Fever, low grade 11/03/2014 04/22/2017 Overview: Low grade fever on presentation UA clean Plan - Blood cx ngtd - afebrile since SUMMARY 08/31/2014 07/24/2016 Overview: The patient is a 50 yo male with a past medical history of HCV/ETOH Liver Cirrhosis c/b hepatopulmonary syndrome, hypersplenism, HE, Grade I EV, pulmonary sarcoidosis who presents with acute weight gain, abdominal distension, and SOB Fever and chills 08/31/2014 04/22/2017 Overview: Tmax 38.7 this AM; pt reports recent history of tooth extraction One time fever yesterday Received 2 time cefazolin after PFO closure. Plan: -UA, BCxx2 - NG till now -will hold off on abx for now and observe Retained dental root 08/15/2014 022 Hepatopulmonary syndrome 03/12/201402/2018 Overview: History of hepatopulmonary syndrome with ~45.2% shunt, pulmonary sarcoidosis requiring home O2 6-10 liters and mild pulmonary HTN Preop PaO2 ~55 on RA Profound hypoxia postoperatively requiring max vent support with high PEEP, heavy sedation/paralytics, flolan, nitric oxide (off since 10/26) Course c/b Right lung Pneumothorax, resp failure requiring trach 11/01 Decompensation 11/04 secondary to narcotic withdrawal +/- sepsis-->Drastically improved with fentanyl infusion, ATB. Updated echo 11/15 with EF 55%, normal RV Currently doing great, on continuous trach collar with passy etta valve, and diet -- Goal sats 85% -- Continue TC, PMV, OOB Bicytopenia 03/12/2014 04/22/2017 Overview: He has plat count of 20k and WCC of around 1000 His neutropenia is likely 2/2 to INF His thrombocytopenia is likley 2/2 to his cirrhosis Plan: Watch, transfuse plats if <10k or bleeding Pancytopenia 03/11/2014 03/12/2014 Hypoxemia 03/11/2014 10/15/2015 Overview: Due to underlying HPS Now on 100% Fio2 with last PaO2 60, Nitric oxide started 10/08, at 40 PPM. O2 sats maintaining in 80s CTS consulted for ECMO evaluation -- Given profound thrombocytopenia and grave condition ECMO not recommended -- Continue nitric oxide -- lung protective ventilation -- increased I:E ratio (at 2.4:1), paralyze with rocuronium if needed -- goal of O2 sats in 70s permissible COPD (chronic obstructive pulmonary disease) 4 03/12/2014 Coagulopathy 03/11/2014 04/22/2017 Syncope 01/03/2014 04/22/2017 Epididymitis 11/24/2013 04/22/2017 Testalgia 11/24/2013 04/22/2017 Thrombocytopenia 08/20/2009 04/22/2017 Overview: Platelets 96k today, received platelets 10/11 prior to liver biopsy. no obvious bleeding -- monitor CBC, coags -- transfuse as required -- monitor for bleeding -- transfuse plts prior to invasive procedures Hepatitis C 08/20/2009 11/03/2014 Cirrhosis 04/22/2017 Overview: Secondary to alcohol use and HCV complicated by ascites, PSE (on lactulose, rifaximin) and hepatopulmonary syndrome on home O2 s/p OLT on 10/03/15 Concern for rejection (humoral), now s/p thymo, IVIG, plasmapheresis 10/15 and 10/16 completed -hydrocortisone (switched from prednisone) now tapering down - MMF - FK documented as of this encounter (statuses as of 07/18/2023) [facility]06[facility] History of Past illness Narrative* Problem Noted Date Diagnosed Date Resolved Date Neck pain 03/11/2022 07/21/2022 Hilar adenopathy 07/09/2018 08/19/2018 Last Assessment & Plan: Assessment: CT A/P on Admission shows Significant subcarinal and bilateral hilar adenopathy on the lower images through the chest. Lymphoproliferative disease suspected He does have a hx of sarcoid But no recent CT chest/CXR to compare. CT chest shows SPLENOMEGALY AND NUMEROUS ENLARGED MEDIASTINAL AND BILATERAL HILAR LYMPH NODES, INCREASED IN SIZE SINCE 2016. THE DIFFERENTIAL DIAGNOSIS INCLUDES SARCOIDOSIS AND LYMPHOPROLIFERATIVE DISEASE. PLAN: -Transfer to [facility] for further evaluation by oncology per ID recommedation. Nausea & vomiting 07/09/2018 07/28/2018 Last Assessment & Plan: Assessment: Patient notes off and on nausea for one month. Also notes worsening control of his reflux symptoms. CTA/P shows significant subcarinal and bilateral hilar adenopathy and new subtle intrahepatic biliary dilatation and common duct dilatation . Obstructing lesion must be excluded, however.Splenic enlargement PLAN: -Increase protonix to 40mg bid -Zofran PRN for N/V -GI consult pending. JAROD (acute kidney injury) 07/09/2018 Last Assessment & Plan: Assessment: Cr on admission was 1.4. He was 1.34 on 07/05/18. He had CT with contrast today . He received one liter of normal saline in the ER PLAN: Gentle hydration and reasses with am labs Hold lisinopril for now. Avoid nephrotoxins Cellulitis 07/09/2018 07/13/2018 Abdominal wall cellulitis 12/01/2017 Last Assessment & Plan: Assessment: Second Episode this year . Likely due to his constant picking of the skin of his abdomen. He is HDS, no leucocytosis,crp 2.6,ESR 2,lactate normal CTA/P shows no abscess nor cellulitis . PLAN: Continue ancef started in the ER. Continue bactrim as scheduled for prophylaxis - due to hx of liver transplant PRN morphine for pain. 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 Overview: Critical illness polymyoneuropathy secondary to patient's critical illness requiring paralytics and bedridden state MRI brain and cervical-thoracic spine 11/12 unrevealing -- resting prafo boot -- Ankles have plantar deviation contractures - require stretching (aggressive) resting foot/ankle splints -- Physical therapy daily -- F/u any neuro recs Respiratory failure, post-operative 10/22/2015 04/22/2017 Overview: Pt intubated for OLT on 10/03/15, remained intubated d/t severe hypoxia (see hepato pulmonary syndrome) 11/01 s/p tracheostomy Very weak and debilitated, profound ICU neuromyopathy Currently improved, toleratingTC, passy etta valve capped -- continue trach collar, PMV Acute pneumothorax 10/17/2015 7 Prerenal azotemia 10/17/2015 10/24/2015 Overview: Bun/ Creat ratio now trending down. Hypernatremia resolved -- trend Renal indices -- lasix 20 mg q8 Acute pulmonary embolism 10/17/201505/2017 Spontaneous pneumothorax 10/16/201505/2017 Overview: Pneumothorax discovered on CT chest 10/15 in setting of high PEEP requirements s/p chest tube placements x2 Last CT removed 11/02 CXR with small persistent Rt. Apical pneumothorax- not appeciated on today's CXR --continue to follow daily CXRs Pneumonia, organism unspecified([phone]) 10/16/2015 11/02/2015 Overview: CT of chest 10/15 shows RLL consolidation suspicious for pneumonia. Completed course of vanco and meropenem continuing micfungin. Sputum culture from 10/09 shows normal respiratory erum. legionella urinary antigen negative --ID following Sepsis due to other etiology 10/15/2015 04/22/2017 Overview: Has completed empiric courses of antibiotics for persistent low grade fevers and acute decompensation No obvious source of infection identified per extensive ID workup Vanco d/c 10/25, Meropenem d/c 10/26 11/04 Acute decompensation (fevers 11/05) empiric pip-tazo, vanc, micafungin added--> off since 11/11 (cultures negative) CT chest/ab/pelvis (11/08) with no evidence of infective process -- continue to monitor off ATB Postoperative shock 10/09/2015 04/22/20 17 Overview: Shock, hypotension, fevers with increasing leukocytosis in setting of liver transplant, hepatopulmonary syndrome, ARDS, hypoxia. Profound hypoxia requiring nitric oxide therapy. Required low dose levo for BP support, now off. Concern for sepsis, blood cultures negative to date, vanco and zosyn started empirically 10/08. Procalcitonin 1.06. Lacate 1.8 -- Follow cultures -- continue vanco and zosyn -- levo for BP support (avoid fluid boluses if hypotensive) Electrolyte and fluid disorder 10/07/2015 04/22/2017 Overview: Hypomagnesemia repleted, hyperphos -- monitor and replete lytes daily -- increase daily PO mag oxide to 800 mg TID New onset seizure 10/05/2015 11/22/2019 Overview: Seizure activity 10/05, BEM supported the dx of cortical dysfunction in the left hemisphere with potential epileptogenicity in the left fronto-central region CT head negative for acute process, neurology consulted, loaded with Keppra Currently alert, follows commands -- weaned to Keppra 500mg bid -- neurology recommending follow up with epilepsy as outpatient ARDS (adult respiratory distress syndrome) 10/05/2015 04/22/2017 Overview: Hx of hepatopulmonary syndrome, pulmonary sarcoidosis requiring home O2 6-10 liters Pulmonary HTN with ~45% shunt. Pre-op PaO2 ~55 on RA CXR now with bilateral fluffy infiltrates / ARDS w/ pulmonary edema Desaturates with movement, turning, suctioning. Space = 60% today, with compliance ~45 -- maintain aggressive vent support (100% FiO2, wean PEEP is able as higher PEEP to increase shunt) -- lung protective strategies - Vt 6ml/kg ideal body weight (~350ml) -- trach on hold while unstable -- lasix TID -- Continue Nitric oxide -- increased I:E ratio -- avoid fluid boluses for hypotension - use pressors if needed -- sputum sent for culture Postoperative anemia due to acute blood loss 04/22/2017 Overview: S/P liver transplant with EBL 17 L c/b thrombocytopenia, coagulopahty and OP bleeding requiring intra-op nasal and pharyngeal packing Last transfused 10/08 2U PRBCs. 10/10: ENT removed nasal merocel. Clots in both nasopharyxes. No reinsertion of nasal tubes. -- monitor CBC and coags -- transfuse as required Agitation requiring sedation protocol 10/05/2015 04/22/2017 Overview: Required prolonged neuromuscular blockade with deep sedation secondary to increased WOB, breath stacking and hypoxia After discontinuation, he has had difficultly controlling agitation, likely opioid withdrawl. Had required precedex, fentanyl patch, prn haldol, seroquel Currently on seroquel, fentanyl patch Has been awake and alert, very cooperative -- continue on decreased TID seroquel dosing of 25mg TID and 150 mg qHS -- continue with fentanyl patch Acute post-operative pain 10/05/2015 Overview: Was on prolonged fentanyl infusion d/t vent asynchrony, pain from liver tx Now transitioned to patch, infusion stopped 11/13 -- continue fentanyl patch (100mcg) Renal insufficiency 10/05/2015 10/08/19 16 Overview: Secondary to hypotension Baseline Scr 0.66, now down to 0.83 Making good UO -- monitor renal indices Stress hyperglycemia 10/05/2015 017 Overview: -- Adequate glycemic control with SSI Moderate protein-calorie malnutrition 10/05/2015 04/22/2017 Overview: Tolerating goal tube feeds Osmolite 1.2 @ 70 Prealbumin 26, transferrin 185 -- continue TF with fiber and beneprotien and full liquid diet -- nutrition following Abdominal distension 09/12/2015 017 Overview: - concerning given weight gain of 30 lb from 09/04 - CT abdomen on last admission showed tissue edema> ascites, concern for third spacing in the abdominal wall tissue - no evidence of active infection, however, currently pancytopenia - was taking Lasix 20 mg PO every other day and spironolactone 50 mg PO daily - Liver vascular U/S demonstrates patent vasculature Plan - diuresis with Lasix 40 mg PO BID and spironolactone 100 mg PO daily - paracentesis as needed for respiratory function Liver transplant candidate 08/17/2015 0 04/22/2017 Pain disorder with psychological factors 08/06/2015 12/23/2021 Chronic abdominal pain 07/20/201510/21 Hyperammonemia 07/20/2015 04/22/2017 SUMMARY 06/14/2015 09/12/2015 Overview: Mr. 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 SOB (shortness of breath) 06/14/2015 Overview: Started after dry run Possibly irritated by catheter? Systolic murmur also heard Chest x-ray and CT PE negative Currently at baseline New valvular lesion vs clot? -Echocardiogram -Doppler study -Observe for now Hepatic cirrhosis 06/14/2015 04/22/2017 Overview: #Cirrhosis -Continue lactulose, rifaximin -Continue aldactone Infection of other external stoma of urinary tract 05/17/2015 04/22/2017 UTI (lower urinary tract infection) 04/08/2015 04/22/2017 Overview: Was complaining of dysuria. UA positive with leukoesterase and Was started of ceftriaxone at OSH. Received 2 dosages here yesterday and one today. Will finish treatment for complicated UTI at home with cipro 500BID Hepatic encephalopathy 04/08/201504/22 Overview: On lactulose zinc Rifaximin Fever, low grade 11/03/2014 04/22/2017 Overview: Low grade fever on presentation UA clean Plan - Blood cx ngtd - afebrile since SUMMARY 08/31/2014 07/24/2016 Overview: The patient is a 50 yo male with a past medical history of HCV/ETOH Liver Cirrhosis c/b hepatopulmonary syndrome, hypersplenism, HE, Grade I EV, pulmonary sarcoidosis who presents with acute weight gain, abdominal distension, and SOB Fever and chills 08/31/2014 04/22/2017 Overview: Tmax 38.7 this AM; pt reports recent history of tooth extraction One time fever yesterday Received 2 time cefazolin after PFO closure. Plan: -UA, BCxx2 - NG till now -will hold off on abx for now and observe Retained dental root 08/15/2014 022 Hepatopulmonary syndrome 03/12/201402/2018 Overview: History of hepatopulmonary syndrome with ~45.2% shunt, pulmonary sarcoidosis requiring home O2 6-10 liters and mild pulmonary HTN Preop PaO2 ~55 on RA Profound hypoxia postoperatively requiring max vent support with high PEEP, heavy sedation/paralytics, flolan, nitric oxide (off since 10/26) Course c/b Right lung Pneumothorax, resp failure requiring trach 11/01 Decompensation 11/04 secondary to narcotic withdrawal +/- sepsis-->Drastically improved with fentanyl infusion, ATB. Updated echo 11/15 with EF 55%, normal RV Currently doing great, on continuous trach collar with passy etta valve, and diet -- Goal sats 85% -- Continue TC, PMV, OOB Bicytopenia 03/12/2014 04/22/2017 Overview: He has plat count of 20k and WCC of around 1000 His neutropenia is likely 2/2 to INF His thrombocytopenia is likley 2/2 to his cirrhosis Plan: Watch, transfuse plats if <10k or bleeding Pancytopenia 03/11/2014 03/12/2014 Hypoxemia 03/11/2014 10/15/2015 Overview: Due to underlying HPS Now on 100% Fio2 with last PaO2 60, Nitric oxide started 10/08, at 40 PPM. O2 sats maintaining in 80s CTS consulted for ECMO evaluation -- Given profound thrombocytopenia and grave condition ECMO not recommended -- Continue nitric oxide -- lung protective ventilation -- increased I:E ratio (at 2.4:1), paralyze with rocuronium if needed -- goal of O2 sats in 70s permissible COPD (chronic obstructive pulmonary disease) 4 03/12/2014 Coagulopathy 03/11/2014 04/22/2017 Syncope 01/03/2014 04/22/2017 Epididymitis 11/24/2013 04/22/2017 Testalgia 11/24/2013 04/22/2017 Thrombocytopenia 08/20/2009 04/22/2017 Overview: Platelets 96k today, received platelets 10/11 prior to liver biopsy. no obvious bleeding -- monitor CBC, coags -- transfuse as required -- monitor for bleeding -- transfuse plts prior to invasive procedures Hepatitis C 08/20/2009 11/03/2014 Cirrhosis 04/22/2017 Overview: Secondary to alcohol use and HCV complicated by ascites, PSE (on lactulose, rifaximin) and hepatopulmonary syndrome on home O2 s/p OLT on 10/03/15 Concern for rejection (humoral), now s/p thymo, IVIG, plasmapheresis 10/15 and 10/16 completed -hydrocortisone (switched from prednisone) now tapering down - MMF - FK documented as of this encounter (statuses as of 07/29/2023) [facility] History of Past illness Narrative* Problem Noted Date Diagnosed Date Resolved Date Neck pain 03/11/2022 07/21/2022 Hilar adenopathy 07/09/2018 08/19/2018 Last Assessment & Plan: Assessment: CT A/P on Admission shows Significant subcarinal and bilateral hilar adenopathy on the lower images through the chest. Lymphoproliferative disease suspected He does have a hx of sarcoid But no recent CT chest/CXR to compare. CT chest shows SPLENOMEGALY AND NUMEROUS ENLARGED MEDIASTINAL AND BILATERAL HILAR LYMPH NODES, INCREASED IN SIZE SINCE 2016. THE DIFFERENTIAL DIAGNOSIS INCLUDES SARCOIDOSIS AND LYMPHOPROLIFERATIVE DISEASE. PLAN: -Transfer to [facility] for further evaluation by oncology per ID recommedation. Nausea & vomiting 07/09/2018 07/28/2018 Last Assessment & Plan: Assessment: Patient notes off and on nausea for one month. Also notes worsening control of his reflux symptoms. CTA/P shows significant subcarinal and bilateral hilar adenopathy and new subtle intrahepatic biliary dilatation and common duct dilatation . Obstructing lesion must be excluded, however.Splenic enlargement PLAN: -Increase protonix to 40mg bid -Zofran PRN for N/V -GI consult pending. JAROD (acute kidney injury) 07/09/2018 Last Assessment & Plan: Assessment: Cr on admission was 1.4. He was 1.34 on 07/05/18. He had CT with contrast today . He received one liter of normal saline in the ER PLAN: Gentle hydration and reasses with am labs Hold lisinopril for now. Avoid nephrotoxins Cellulitis 07/09/2018 07/13/2018 Abdominal wall cellulitis 12/01/2017 Last Assessment & Plan: Assessment: Second Episode this year . Likely due to his constant picking of the skin of his abdomen. He is HDS, no leucocytosis,crp 2.6,ESR 2,lactate normal CTA/P shows no abscess nor cellulitis . PLAN: Continue ancef started in the ER. Continue bactrim as scheduled for prophylaxis - due to hx of liver transplant PRN morphine for pain. 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 Overview: Critical illness polymyoneuropathy secondary to patient's critical illness requiring paralytics and bedridden state MRI brain and cervical-thoracic spine 11/12 unrevealing -- resting prafo boot -- Ankles have plantar deviation contractures - require stretching (aggressive) resting foot/ankle splints -- Physical therapy daily -- F/u any neuro recs Respiratory failure, post-operative 10/22/2015 04/22/2017 Overview: Pt intubated for OLT on 10/03/15, remained intubated d/t severe hypoxia (see hepato pulmonary syndrome) 11/01 s/p tracheostomy Very weak and debilitated, profound ICU neuromyopathy Currently improved, toleratingTC, passy etta valve capped -- continue trach collar, PMV Acute pneumothorax 10/17/2015 7 Prerenal azotemia 10/17/2015 10/24/2015 Overview: Bun/ Creat ratio now trending down. Hypernatremia resolved -- trend Renal indices -- lasix 20 mg q8 Acute pulmonary embolism 10/17/201505/2017 Spontaneous pneumothorax 10/16/201505/2017 Overview: Pneumothorax discovered on CT chest 10/15 in setting of high PEEP requirements s/p chest tube placements x2 Last CT removed 11/02 CXR with small persistent Rt. Apical pneumothorax- not appeciated on today's CXR --continue to follow daily CXRs Pneumonia, organism unspecified([phone]) 10/16/2015 11/02/2015 Overview: CT of chest 10/15 shows RLL consolidation suspicious for pneumonia. Completed course of vanco and meropenem continuing micfungin. Sputum culture from 10/09 shows normal respiratory erum. legionella urinary antigen negative --ID following Sepsis due to other etiology 10/15/2015 04/22/2017 Overview: Has completed empiric courses of antibiotics for persistent low grade fevers and acute decompensation No obvious source of infection identified per extensive ID workup Vanco d/c 10/25, Meropenem d/c 10/26 11/04 Acute decompensation (fevers 11/05) empiric pip-tazo, vanc, micafungin added--> off since 11/11 (cultures negative) CT chest/ab/pelvis (11/08) with no evidence of infective process -- continue to monitor off ATB Postoperative shock 10/09/2015 04/22/20 17 Overview: Shock, hypotension, fevers with increasing leukocytosis in setting of liver transplant, hepatopulmonary syndrome, ARDS, hypoxia. Profound hypoxia requiring nitric oxide therapy. Required low dose levo for BP support, now off. Concern for sepsis, blood cultures negative to date, vanco and zosyn started empirically 10/08. Procalcitonin 1.06. Lacate 1.8 -- Follow cultures -- continue vanco and zosyn -- levo for BP support (avoid fluid boluses if hypotensive) Electrolyte and fluid disorder 10/07/2015 04/22/2017 Overview: Hypomagnesemia repleted, hyperphos -- monitor and replete lytes daily -- increase daily PO mag oxide to 800 mg TID New onset seizure 10/05/2015 11/22/2019 Overview: Seizure activity 10/05, BEM supported the dx of cortical dysfunction in the left hemisphere with potential epileptogenicity in the left fronto-central region CT head negative for acute process, neurology consulted, loaded with Keppra Currently alert, follows commands -- weaned to Keppra 500mg bid -- neurology recommending follow up with epilepsy as outpatient ARDS (adult respiratory distress syndrome) 10/05/2015 04/22/2017 Overview: Hx of hepatopulmonary syndrome, pulmonary sarcoidosis requiring home O2 6-10 liters Pulmonary HTN with ~45% shunt. Pre-op PaO2 ~55 on RA CXR now with bilateral fluffy infiltrates / ARDS w/ pulmonary edema Desaturates with movement, turning, suctioning. Space = 60% today, with compliance ~45 -- maintain aggressive vent support (100% FiO2, wean PEEP is able as higher PEEP to increase shunt) -- lung protective strategies - Vt 6ml/kg ideal body weight (~350ml) -- trach on hold while unstable -- lasix TID -- Continue Nitric oxide -- increased I:E ratio -- avoid fluid boluses for hypotension - use pressors if needed -- sputum sent for culture Postoperative anemia due to acute blood loss 04/22/2017 Overview: S/P liver transplant with EBL 17 L c/b thrombocytopenia, coagulopahty and OP bleeding requiring intra-op nasal and pharyngeal packing Last transfused 10/08 2U PRBCs. 10/10: ENT removed nasal merocel. Clots in both nasopharyxes. No reinsertion of nasal tubes. -- monitor CBC and coags -- transfuse as required Agitation requiring sedation protocol 10/05/2015 04/22/2017 Overview: Required prolonged neuromuscular blockade with deep sedation secondary to increased WOB, breath stacking and hypoxia After discontinuation, he has had difficultly controlling agitation, likely opioid withdrawl. Had required precedex, fentanyl patch, prn haldol, seroquel Currently on seroquel, fentanyl patch Has been awake and alert, very cooperative -- continue on decreased TID seroquel dosing of 25mg TID and 150 mg qHS -- continue with fentanyl patch Acute post-operative pain 10/05/2015 Overview: Was on prolonged fentanyl infusion d/t vent asynchrony, pain from liver tx Now transitioned to patch, infusion stopped 11/13 -- continue fentanyl patch (100mcg) Renal insufficiency 10/05/2015 10/08/19 16 Overview: Secondary to hypotension Baseline Scr 0.66, now down to 0.83 Making good UO -- monitor renal indices Stress hyperglycemia 10/05/2015 017 Overview: -- Adequate glycemic control with SSI Moderate protein-calorie malnutrition 10/05/2015 04/22/2017 Overview: Tolerating goal tube feeds Osmolite 1.2 @ 70 Prealbumin 26, transferrin 185 -- continue TF with fiber and beneprotien and full liquid diet -- nutrition following Abdominal distension 09/12/2015 017 Overview: - concerning given weight gain of 30 lb from 09/04 - CT abdomen on last admission showed tissue edema> ascites, concern for third spacing in the abdominal wall tissue - no evidence of active infection, however, currently pancytopenia - was taking Lasix 20 mg PO every other day and spironolactone 50 mg PO daily - Liver vascular U/S demonstrates patent vasculature Plan - diuresis with Lasix 40 mg PO BID and spironolactone 100 mg PO daily - paracentesis as needed for respiratory function Liver transplant candidate 08/17/2015 0 04/22/2017 Pain disorder with psychological factors 08/06/2015 12/23/2021 Chronic abdominal pain 07/20/201510/21 Hyperammonemia 07/20/2015 04/22/2017 SUMMARY 06/14/2015 09/12/2015 Overview: Mr. 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 SOB (shortness of breath) 06/14/2015 Overview: Started after dry run Possibly irritated by catheter? Systolic murmur also heard Chest x-ray and CT PE negative Currently at baseline New valvular lesion vs clot? -Echocardiogram -Doppler study -Observe for now Hepatic cirrhosis 06/14/2015 04/22/2017 Overview: #Cirrhosis -Continue lactulose, rifaximin -Continue aldactone Infection of other external stoma of urinary tract 05/17/2015 04/22/2017 UTI (lower urinary tract infection) 04/08/2015 04/22/2017 Overview: Was complaining of dysuria. UA positive with leukoesterase and Was started of ceftriaxone at OSH. Received 2 dosages here yesterday and one today. Will finish treatment for complicated UTI at home with cipro 500BID Hepatic encephalopathy 04/08/201504/22 Overview: On lactulose zinc Rifaximin Fever, low grade 11/03/2014 04/22/2017 Overview: Low grade fever on presentation UA clean Plan - Blood cx ngtd - afebrile since SUMMARY 08/31/2014 07/24/2016 Overview: The patient is a 50 yo male with a past medical history of HCV/ETOH Liver Cirrhosis c/b hepatopulmonary syndrome, hypersplenism, HE, Grade I EV, pulmonary sarcoidosis who presents with acute weight gain, abdominal distension, and SOB Fever and chills 08/31/2014 04/22/2017 Overview: Tmax 38.7 this AM; pt reports recent history of tooth extraction One time fever yesterday Received 2 time cefazolin after PFO closure. Plan: -UA, BCxx2 - NG till now -will hold off on abx for now and observe Retained dental root 08/15/2014 022 Hepatopulmonary syndrome 03/12/201402/2018 Overview: History of hepatopulmonary syndrome with ~45.2% shunt, pulmonary sarcoidosis requiring home O2 6-10 liters and mild pulmonary HTN Preop PaO2 ~55 on RA Profound hypoxia postoperatively requiring max vent support with high PEEP, heavy sedation/paralytics, flolan, nitric oxide (off since 10/26) Course c/b Right lung Pneumothorax, resp failure requiring trach 11/01 Decompensation 11/04 secondary to narcotic withdrawal +/- sepsis-->Drastically improved with fentanyl infusion, ATB. Updated echo 11/15 with EF 55%, normal RV Currently doing great, on continuous trach collar with passy etta valve, and diet -- Goal sats 85% -- Continue TC, PMV, OOB Bicytopenia 03/12/2014 04/22/2017 Overview: He has plat count of 20k and WCC of around 1000 His neutropenia is likely 2/2 to INF His thrombocytopenia is likley 2/2 to his cirrhosis Plan: Watch, transfuse plats if <10k or bleeding Pancytopenia 03/11/2014 03/12/2014 Hypoxemia 03/11/2014 10/15/2015 Overview: Due to underlying HPS Now on 100% Fio2 with last PaO2 60, Nitric oxide started 10/08, at 40 PPM. O2 sats maintaining in 80s CTS consulted for ECMO evaluation -- Given profound thrombocytopenia and grave condition ECMO not recommended -- Continue nitric oxide -- lung protective ventilation -- increased I:E ratio (at 2.4:1), paralyze with rocuronium if needed -- goal of O2 sats in 70s permissible COPD (chronic obstructive pulmonary disease) 4 03/12/2014 Coagulopathy 03/11/2014 04/22/2017 Syncope 01/03/2014 04/22/2017 Epididymitis 11/24/2013 04/22/2017 Testalgia 11/24/2013 04/22/2017 Thrombocytopenia 08/20/2009 04/22/2017 Overview: Platelets 96k today, received platelets 10/11 prior to liver biopsy. no obvious bleeding -- monitor CBC, coags -- transfuse as required -- monitor for bleeding -- transfuse plts prior to invasive procedures Hepatitis C 08/20/2009 11/03/2014 Cirrhosis 04/22/2017 Overview: Secondary to alcohol use and HCV complicated by ascites, PSE (on lactulose, rifaximin) and hepatopulmonary syndrome on home O2 s/p OLT on 10/03/15 Concern for rejection (humoral), now s/p thymo, IVIG, plasmapheresis 10/15 and 10/16 completed -hydrocortisone (switched from prednisone) now tapering down - MMF - FK documented as of this encounter (statuses as of 08/13/2023) [facility]06[facility] History of Past illness Narrative* Problem Noted Date Diagnosed Date Resolved Date Neck pain 03/11/2022 07/21/2022 Hilar adenopathy 07/09/2018 08/19/2018 Last Assessment & Plan: Assessment: CT A/P on Admission shows Significant subcarinal and bilateral hilar adenopathy on the lower images through the chest. Lymphoproliferative disease suspected He does have a hx of sarcoid But no recent CT chest/CXR to compare. CT chest shows SPLENOMEGALY AND NUMEROUS ENLARGED MEDIASTINAL AND BILATERAL HILAR LYMPH NODES, INCREASED IN SIZE SINCE 2016. THE DIFFERENTIAL DIAGNOSIS INCLUDES SARCOIDOSIS AND LYMPHOPROLIFERATIVE DISEASE. PLAN: -Transfer to [facility] for further evaluation by oncology per ID recommedation. Nausea & vomiting 07/09/2018 07/28/2018 Last Assessment & Plan: Assessment: Patient notes off and on nausea for one month. Also notes worsening control of his reflux symptoms. CTA/P shows significant subcarinal and bilateral hilar adenopathy and new subtle intrahepatic biliary dilatation and common duct dilatation . Obstructing lesion must be excluded, however.Splenic enlargement PLAN: -Increase protonix to 40mg bid -Zofran PRN for N/V -GI consult pending. JAROD (acute kidney injury) 07/09/2018 Last Assessment & Plan: Assessment: Cr on admission was 1.4. He was 1.34 on 07/05/18. He had CT with contrast today . He received one liter of normal saline in the ER PLAN: Gentle hydration and reasses with am labs Hold lisinopril for now. Avoid nephrotoxins Cellulitis 07/09/2018 07/13/2018 Abdominal wall cellulitis 12/01/2017 Last Assessment & Plan: Assessment: Second Episode this year . Likely due to his constant picking of the skin of his abdomen. He is HDS, no leucocytosis,crp 2.6,ESR 2,lactate normal CTA/P shows no abscess nor cellulitis . PLAN: Continue ancef started in the ER. Continue bactrim as scheduled for prophylaxis - due to hx of liver transplant PRN morphine for pain. 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 Overview: Critical illness polymyoneuropathy secondary to patient's critical illness requiring paralytics and bedridden state MRI brain and cervical-thoracic spine 3/1 unrevealing -- resting prafo boot -- Ankles have plantar deviation contractures - require stretching (aggressive) resting foot/ankle splints -- Physical therapy daily -- F/u any neuro recs Respiratory failure, post-operative 10/22/2015 04/22/2017 Overview: Pt intubated for OLT on 10/03/15, remained intubated d/t severe hypoxia (see hepato pulmonary syndrome) 11/01 s/p tracheostomy Very weak and debilitated, profound ICU neuromyopathy Currently improved, toleratingTC, passy etta valve capped -- continue trach collar, PMV Acute pneumothorax 10/17/2015 7 Prerenal azotemia 10/17/2015 10/24/2015 Overview: Bun/ Creat ratio now trending down. Hypernatremia resolved -- trend Renal indices -- lasix 20 mg q8 Acute pulmonary embolism 10/17/201505/2017 Spontaneous pneumothorax 10/16/201505/2017 Overview: Pneumothorax discovered on CT chest 10/15 in setting of high PEEP requirements s/p chest tube placements x2 Last CT removed 11/02 CXR with small persistent Rt. Apical pneumothorax- not appeciated on today's CXR --continue to follow daily CXRs Pneumonia, organism unspecified([phone]) 10/16/2015 11/02/2015 Overview: CT of chest 10/15 shows RLL consolidation suspicious for pneumonia. Completed course of vanco and meropenem continuing micfungin. Sputum culture from 10/09 shows normal respiratory erum. legionella urinary antigen negative --ID following Sepsis due to other etiology 10/15/2015 04/22/2017 Overview: Has completed empiric courses of antibiotics for persistent low grade fevers and acute decompensation No obvious source of infection identified per extensive ID workup Vanco d/c 10/25, Meropenem d/c 10/26 11/04 Acute decompensation (fevers 11/05) empiric pip-tazo, vanc, micafungin added--> off since 11/11 (cultures negative) CT chest/ab/pelvis (11/08) with no evidence of infective process -- continue to monitor off ATB Postoperative shock 10/09/2015 04/22/20 17 Overview: Shock, hypotension, fevers with increasing leukocytosis in setting of liver transplant, hepatopulmonary syndrome, ARDS, hypoxia. Profound hypoxia requiring nitric oxide therapy. Required low dose levo for BP support, now off. Concern for sepsis, blood cultures negative to date, vanco and zosyn started empirically 10/08. Procalcitonin 1.06. Lacate 1.8 -- Follow cultures -- continue vanco and zosyn -- levo for BP support (avoid fluid boluses if hypotensive) Electrolyte and fluid disorder 10/07/2015 04/22/2017 Overview: Hypomagnesemia repleted, hyperphos -- monitor and replete lytes daily -- increase daily PO mag oxide to 800 mg TID New onset seizure 10/05/2015 11/22/2019 Overview: Seizure activity 10/05, BEM supported the dx of cortical dysfunction in the left hemisphere with potential epileptogenicity in the left fronto-central region CT head negative for acute process, neurology consulted, loaded with Keppra Currently alert, follows commands -- weaned to Keppra 500mg bid -- neurology recommending follow up with epilepsy as outpatient ARDS (adult respiratory distress syndrome) 10/05/2015 04/22/2017 Overview: Hx of hepatopulmonary syndrome, pulmonary sarcoidosis requiring home O2 6-10 liters Pulmonary HTN with ~45% shunt. Pre-op PaO2 ~55 on RA CXR now with bilateral fluffy infiltrates / ARDS w/ pulmonary edema Desaturates with movement, turning, suctioning. Space = 60% today, with compliance ~45 -- maintain aggressive vent support (100% FiO2, wean PEEP is able as higher PEEP to increase shunt) -- lung protective strategies - Vt 6ml/kg ideal body weight (~350ml) -- trach on hold while unstable -- lasix TID -- Continue Nitric oxide -- increased I:E ratio -- avoid fluid boluses for hypotension - use pressors if needed -- sputum sent for culture Postoperative anemia due to acute blood loss 6 04/22/2017 Overview: S/P liver transplant with EBL 17 L c/b thrombocytopenia, coagulopahty and OP bleeding requiring intra-op nasal and pharyngeal packing Last transfused 10/08 2U PRBCs. 10/10: ENT removed nasal merocel. Clots in both nasopharyxes. No reinsertion of nasal tubes. -- monitor CBC and coags -- transfuse as required Agitation requiring sedation protocol 10/05/2015 04/22/2017 Overview: Required prolonged neuromuscular blockade with deep sedation secondary to increased WOB, breath stacking and hypoxia After discontinuation, he has had difficultly controlling agitation, likely opioid withdrawl. Had required precedex, fentanyl patch, prn haldol, seroquel Currently on seroquel, fentanyl patch Has been awake and alert, very cooperative -- continue on decreased TID seroquel dosing of 25mg TID and 150 mg qHS -- continue with fentanyl patch Acute post-operative pain 10/05/2015 Overview: Was on prolonged fentanyl infusion d/t vent asynchrony, pain from liver tx Now transitioned to patch, infusion stopped 11/13 -- continue fentanyl patch (100mcg) Renal insufficiency 10/05/2015 10/08/19 16 Overview: Secondary to hypotension Baseline Scr 0.66, now down to 0.83 Making good UO -- monitor renal indices Stress hyperglycemia 10/05/2015 017 Overview: -- Adequate glycemic control with SSI Moderate protein-calorie malnutrition 10/05/2015 04/22/2017 Overview: Tolerating goal tube feeds Osmolite 1.2 @ 70 Prealbumin 26, transferrin 185 -- continue TF with fiber and beneprotien and full liquid diet -- nutrition following Abdominal distension 09/12/2015 017 Overview: - concerning given weight gain of 30 lb from 09/04 - CT abdomen on last admission showed tissue edema> ascites, concern for third spacing in the abdominal wall tissue - no evidence of active infection, however, currently pancytopenia - was taking Lasix 20 mg PO every other day and spironolactone 50 mg PO daily - Liver vascular U/S demonstrates patent vasculature Plan - diuresis with Lasix 40 mg PO BID and spironolactone 100 mg PO daily - paracentesis as needed for respiratory function Liver transplant candidate 08/17/2015 0 04/22/2017 Pain disorder with psychological factors 08/06/2015 12/23/2021 Chronic abdominal pain 07/20/201510/21 Hyperammonemia 07/20/2015 04/22/2017 SUMMARY 06/14/2015 09/12/2015 Overview: Mr. 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 SOB (shortness of breath) 06/14/2015 Overview: Started after dry run Possibly irritated by catheter? Systolic murmur also heard Chest x-ray and CT PE negative Currently at baseline New valvular lesion vs clot? -Echocardiogram -Doppler study -Observe for now Hepatic cirrhosis 06/14/2015 04/22/2017 Overview: #Cirrhosis -Continue lactulose, rifaximin -Continue aldactone Infection of other external stoma of urinary tract 05/17/2015 04/22/2017 UTI (lower urinary tract infection) 04/08/2015 04/22/2017 Overview: Was complaining of dysuria. UA positive with leukoesterase and Was started of ceftriaxone at OSH. Received 2 dosages here yesterday and one today. Will finish treatment for complicated UTI at home with cipro 500BID Hepatic encephalopathy 04/08/201504/22 Overview: On lactulose zinc Rifaximin Fever, low grade 11/03/2014 04/22/2017 Overview: Low grade fever on presentation UA clean Plan - Blood cx ngtd - afebrile since SUMMARY 08/31/2014 07/24/2016 Overview: The patient is a 50 yo male with a past medical history of HCV/ETOH Liver Cirrhosis c/b hepatopulmonary syndrome, hypersplenism, HE, Grade I EV, pulmonary sarcoidosis who presents with acute weight gain, abdominal distension, and SOB Fever and chills 08/31/2014 04/22/2017 Overview: Tmax 38.7 this AM; pt reports recent history of tooth extraction One time fever yesterday Received 2 time cefazolin after PFO closure. Plan: -UA, BCxx2 - NG till now -will hold off on abx for now and observe Retained dental root 08/15/2014 022 Hepatopulmonary syndrome 03/12/201402/2018 Overview: History of hepatopulmonary syndrome with ~45.2% shunt, pulmonary sarcoidosis requiring home O2 6-10 liters and mild pulmonary HTN Preop PaO2 ~55 on RA Profound hypoxia postoperatively requiring max vent support with high PEEP, heavy sedation/paralytics, flolan, nitric oxide (off since 10/26) Course c/b Right lung Pneumothorax, resp failure requiring trach 11/01 Decompensation 11/04 secondary to narcotic withdrawal +/- sepsis-->Drastically improved with fentanyl infusion, ATB. Updated echo 11/15 with EF 55%, normal RV Currently doing great, on continuous trach collar with passy etta valve, and diet -- Goal sats 85% -- Continue TC, PMV, OOB Bicytopenia 03/12/2014 04/22/2017 Overview: He has plat count of 20k and WCC of around 1000 His neutropenia is likely 2/2 to INF His thrombocytopenia is likley 2/2 to his cirrhosis Plan: Watch, transfuse plats if <10k or bleeding Pancytopenia 03/11/2014 03/12/2014 Hypoxemia 03/11/2014 10/15/2015 Overview: Due to underlying HPS Now on 100% Fio2 with last PaO2 60, Nitric oxide started 10/08, at 40 PPM. O2 sats maintaining in 80s CTS consulted for ECMO evaluation -- Given profound thrombocytopenia and grave condition ECMO not recommended -- Continue nitric oxide -- lung protective ventilation -- increased I:E ratio (at 2.4:1), paralyze with rocuronium if needed -- goal of O2 sats in 70s permissible COPD (chronic obstructive pulmonary disease) 4 03/12/2014 Coagulopathy 03/11/2014 04/22/2017 Syncope 01/03/2014 04/22/2017 Epididymitis 11/24/2013 04/22/2017 Testalgia 11/24/2013 04/22/2017 Thrombocytopenia 08/20/2009 04/22/2017 Overview: Platelets 96k today, received platelets 10/11 prior to liver biopsy. no obvious bleeding -- monitor CBC, coags -- transfuse as required -- monitor for bleeding -- transfuse plts prior to invasive procedures Hepatitis C 08/20/2009 11/03/2014 Cirrhosis 04/22/2017 Overview: Secondary to alcohol use and HCV complicated by ascites, PSE (on lactulose, rifaximin) and hepatopulmonary syndrome on home O2 s/p OLT on 10/03/15 Concern for rejection (humoral), now s/p thymo, IVIG, plasmapheresis 10/15 and 10/16 completed -hydrocortisone (switched from prednisone) now tapering down - MMF - FK documented as of this encounter (statuses as of 10/23/2023) [facility] History of Past illness Narrative* Problem Noted Date Diagnosed Date Resolved Date Neck pain 03/11/2022 07/21/2022 Hilar adenopathy 07/09/2018 08/19/2018 Last Assessment & Plan: Assessment: CT A/P on Admission shows Significant subcarinal and bilateral hilar adenopathy on the lower images through the chest. Lymphoproliferative disease suspected He does have a hx of sarcoid But no recent CT chest/CXR to compare. CT chest shows SPLENOMEGALY AND NUMEROUS ENLARGED MEDIASTINAL AND BILATERAL HILAR LYMPH NODES, INCREASED IN SIZE SINCE 2016. THE DIFFERENTIAL DIAGNOSIS INCLUDES SARCOIDOSIS AND LYMPHOPROLIFERATIVE DISEASE. PLAN: -Transfer to [facility] for further evaluation by oncology per ID recommedation. Nausea & vomiting 07/09/2018 07/28/2018 Last Assessment & Plan: Assessment: Patient notes off and on nausea for one month. Also notes worsening control of his reflux symptoms. CTA/P shows significant subcarinal and bilateral hilar adenopathy and new subtle intrahepatic biliary dilatation and common duct dilatation . Obstructing lesion must be excluded, however.Splenic enlargement PLAN: -Increase protonix to 40mg bid -Zofran PRN for N/V -GI consult pending. JAROD (acute kidney injury) 07/09/2018 Last Assessment & Plan: Assessment: Cr on admission was 1.4. He was 1.34 on 07/05/18. He had CT with contrast today . He received one liter of normal saline in the ER PLAN: Gentle hydration and reasses with am labs Hold lisinopril for now. Avoid nephrotoxins Cellulitis 07/09/2018 07/13/2018 Abdominal wall cellulitis 12/01/2017 Last Assessment & Plan: Assessment: Second Episode this year . Likely due to his constant picking of the skin of his abdomen. He is HDS, no leucocytosis,crp 2.6,ESR 2,lactate normal CTA/P shows no abscess nor cellulitis . PLAN: Continue ancef started in the ER. Continue bactrim as scheduled for prophylaxis - due to hx of liver transplant PRN morphine for pain. 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 Overview: Critical illness polymyoneuropathy secondary to patient's critical illness requiring paralytics and bedridden state MRI brain and cervical-thoracic spine 11/12 unrevealing -- resting prafo boot -- Ankles have plantar deviation contractures - require stretching (aggressive) resting foot/ankle splints -- Physical therapy daily -- F/u any neuro recs Respiratory failure, post-operative 10/22/2015 04/22/2017 Overview: Pt intubated for OLT on 10/03/15, remained intubated d/t severe hypoxia (see hepato pulmonary syndrome) 11/01 s/p tracheostomy Very weak and debilitated, profound ICU neuromyopathy Currently improved, toleratingTC, passy etta valve capped -- continue trach collar, PMV Acute pneumothorax 10/17/2015 7 Prerenal azotemia 10/17/2015 10/24/2015 Overview: Bun/ Creat ratio now trending down. Hypernatremia resolved -- trend Renal indices -- lasix 20 mg q8 Acute pulmonary embolism 10/17/201505/2017 Spontaneous pneumothorax 10/16/201505/2017 Overview: Pneumothorax discovered on CT chest 10/15 in setting of high PEEP requirements s/p chest tube placements x2 Last CT removed 11/02 CXR with small persistent Rt. Apical pneumothorax- not appeciated on today's CXR --continue to follow daily CXRs Pneumonia, organism unspecified([phone]) 10/16/2015 11/02/2015 Overview: CT of chest 10/15 shows RLL consolidation suspicious for pneumonia. Completed course of vanco and meropenem continuing micfungin. Sputum culture from 10/09 shows normal respiratory erum. legionella urinary antigen negative --ID following Sepsis due to other etiology 10/15/2015 04/22/2017 Overview: Has completed empiric courses of antibiotics for persistent low grade fevers and acute decompensation No obvious source of infection identified per extensive ID workup Vanco d/c 10/25, Meropenem d/c 10/26 11/04 Acute decompensation (fevers 11/05) empiric pip-tazo, vanc, micafungin added--> off since 11/11 (cultures negative) CT chest/ab/pelvis (11/08) with no evidence of infective process -- continue to monitor off ATB Postoperative shock 10/09/2015 04/22/20 17 Overview: Shock, hypotension, fevers with increasing leukocytosis in setting of liver transplant, hepatopulmonary syndrome, ARDS, hypoxia. Profound hypoxia requiring nitric oxide therapy. Required low dose levo for BP support, now off. Concern for sepsis, blood cultures negative to date, vanco and zosyn started empirically 10/08. Procalcitonin 1.06. Lacate 1.8 -- Follow cultures -- continue vanco and zosyn -- levo for BP support (avoid fluid boluses if hypotensive) Electrolyte and fluid disorder 10/07/2015 04/22/2017 Overview: Hypomagnesemia repleted, hyperphos -- monitor and replete lytes daily -- increase daily PO mag oxide to 800 mg TID New onset seizure 10/05/2015 11/22/2019 Overview: Seizure activity 10/05, BEM supported the dx of cortical dysfunction in the left hemisphere with potential epileptogenicity in the left fronto-central region CT head negative for acute process, neurology consulted, loaded with Keppra Currently alert, follows commands -- weaned to Keppra 500mg bid -- neurology recommending follow up with epilepsy as outpatient ARDS (adult respiratory distress syndrome) 10/05/2015 04/22/2017 Overview: Hx of hepatopulmonary syndrome, pulmonary sarcoidosis requiring home O2 6-10 liters Pulmonary HTN with ~45% shunt. Pre-op PaO2 ~55 on RA CXR now with bilateral fluffy infiltrates / ARDS w/ pulmonary edema Desaturates with movement, turning, suctioning. Space = 60% today, with compliance ~45 -- maintain aggressive vent support (100% FiO2, wean PEEP is able as higher PEEP to increase shunt) -- lung protective strategies - Vt 6ml/kg ideal body weight (~350ml) -- trach on hold while unstable -- lasix TID -- Continue Nitric oxide -- increased I:E ratio -- avoid fluid boluses for hypotension - use pressors if needed -- sputum sent for culture Postoperative anemia due to acute blood loss 6 04/22/2017 Overview: S/P liver transplant with EBL 17 L c/b thrombocytopenia, coagulopahty and OP bleeding requiring intra-op nasal and pharyngeal packing Last transfused 10/08 2U PRBCs. 10/10: ENT removed nasal merocel. Clots in both nasopharyxes. No reinsertion of nasal tubes. -- monitor CBC and coags -- transfuse as required Agitation requiring sedation protocol 10/05/2015 04/22/2017 Overview: Required prolonged neuromuscular blockade with deep sedation secondary to increased WOB, breath stacking and hypoxia After discontinuation, he has had difficultly controlling agitation, likely opioid withdrawl. Had required precedex, fentanyl patch, prn haldol, seroquel Currently on seroquel, fentanyl patch Has been awake and alert, very cooperative -- continue on decreased TID seroquel dosing of 25mg TID and 150 mg qHS -- continue with fentanyl patch Acute post-operative pain 10/05/2015 Overview: Was on prolonged fentanyl infusion d/t vent asynchrony, pain from liver tx Now transitioned to patch, infusion stopped 11/13 -- continue fentanyl patch (100mcg) Renal insufficiency 10/05/2015 10/08/19 16 Overview: Secondary to hypotension Baseline Scr 0.66, now down to 0.83 Making good UO -- monitor renal indices Stress hyperglycemia 10/05/2015 017 Overview: -- Adequate glycemic control with SSI Moderate protein-calorie malnutrition 10/05/2015 04/22/2017 Overview: Tolerating goal tube feeds Osmolite 1.2 @ 70 Prealbumin 26, transferrin 185 -- continue TF with fiber and beneprotien and full liquid diet -- nutrition following Abdominal distension 09/12/2015 017 Overview: - concerning given weight gain of 30 lb from 09/04 - CT abdomen on last admission showed tissue edema> ascites, concern for third spacing in the abdominal wall tissue - no evidence of active infection, however, currently pancytopenia - was taking Lasix 20 mg PO every other day and spironolactone 50 mg PO daily - Liver vascular U/S demonstrates patent vasculature Plan - diuresis with Lasix 40 mg PO BID and spironolactone 100 mg PO daily - paracentesis as needed for respiratory function Liver transplant candidate 08/17/2015 0 04/22/2017 Pain disorder with psychological factors 08/06/2015 12/23/2021 Chronic abdominal pain 07/20/201510/21 Hyperammonemia 07/20/2015 04/22/2017 SUMMARY 06/14/2015 09/12/2015 Overview: Mr. 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 SOB (shortness of breath) 06/14/2015 Overview: Started after dry run Possibly irritated by catheter? Systolic murmur also heard Chest x-ray and CT PE negative Currently at baseline New valvular lesion vs clot? -Echocardiogram -Doppler study -Observe for now Hepatic cirrhosis 06/14/2015 04/22/2017 Overview: #Cirrhosis -Continue lactulose, rifaximin -Continue aldactone Infection of other external stoma of urinary tract 05/17/2015 04/22/2017 UTI (lower urinary tract infection) 04/08/2015 04/22/2017 Overview: Was complaining of dysuria. UA positive with leukoesterase and Was started of ceftriaxone at OSH. Received 2 dosages here yesterday and one today. Will finish treatment for complicated UTI at home with cipro 500BID Hepatic encephalopathy 04/08/201504/22 Overview: On lactulose zinc Rifaximin Fever, low grade 11/03/2014 04/22/2017 Overview: Low grade fever on presentation UA clean Plan - Blood cx ngtd - afebrile since SUMMARY 08/31/2014 07/24/2016 Overview: The patient is a 50 yo male with a past medical history of HCV/ETOH Liver Cirrhosis c/b hepatopulmonary syndrome, hypersplenism, HE, Grade I EV, pulmonary sarcoidosis who presents with acute weight gain, abdominal distension, and SOB Fever and chills 08/31/2014 04/22/2017 Overview: Tmax 38.7 this AM; pt reports recent history of tooth extraction One time fever yesterday Received 2 time cefazolin after PFO closure. Plan: -UA, BCxx2 - NG till now -will hold off on abx for now and observe Retained dental root 08/15/2014 022 Hepatopulmonary syndrome 03/12/201402/2018 Overview: History of hepatopulmonary syndrome with ~45.2% shunt, pulmonary sarcoidosis requiring home O2 6-10 liters and mild pulmonary HTN Preop PaO2 ~55 on RA Profound hypoxia postoperatively requiring max vent support with high PEEP, heavy sedation/paralytics, flolan, nitric oxide (off since 10/26) Course c/b Right lung Pneumothorax, resp failure requiring trach 11/01 Decompensation 11/04 secondary to narcotic withdrawal +/- sepsis-->Drastically improved with fentanyl infusion, ATB. Updated echo 11/15 with EF 55%, normal RV Currently doing great, on continuous trach collar with passy etta valve, and diet -- Goal sats 85% -- Continue TC, PMV, OOB Bicytopenia 03/12/2014 04/22/2017 Overview: He has plat count of 20k and WCC of around 1000 His neutropenia is likely 2/2 to INF His thrombocytopenia is likley 2/2 to his cirrhosis Plan: Watch, transfuse plats if <10k or bleeding Pancytopenia 03/11/2014 03/12/2014 Hypoxemia 03/11/2014 10/15/2015 Overview: Due to underlying HPS Now on 100% Fio2 with last PaO2 60, Nitric oxide started 10/08, at 40 PPM. O2 sats maintaining in 80s CTS consulted for ECMO evaluation -- Given profound thrombocytopenia and grave condition ECMO not recommended -- Continue nitric oxide -- lung protective ventilation -- increased I:E ratio (at 2.4:1), paralyze with rocuronium if needed -- goal of O2 sats in 70s permissible COPD (chronic obstructive pulmonary disease) 4 03/12/2014 Coagulopathy 03/11/2014 04/22/2017 Syncope 01/03/2014 04/22/2017 Epididymitis 11/24/2013 04/22/2017 Testalgia 11/24/2013 04/22/2017 Thrombocytopenia 08/20/2009 04/22/2017 Overview: Platelets 96k today, received platelets 10/11 prior to liver biopsy. no obvious bleeding -- monitor CBC, coags -- transfuse as required -- monitor for bleeding -- transfuse plts prior to invasive procedures Hepatitis C 08/20/2009 11/03/2014 Cirrhosis 04/22/2017 Overview: Secondary to alcohol use and HCV complicated by ascites, PSE (on lactulose, rifaximin) and hepatopulmonary syndrome on home O2 s/p OLT on 10/03/15 Concern for rejection (humoral), now s/p thymo, IVIG, plasmapheresis 10/15 and 10/16 completed -hydrocortisone (switched from prednisone) now tapering down - MMF - FK documented as of this encounter (statuses as of 10/24/2023) [facility]06[facility] History of Past illness Narrative* Problem Noted Date Diagnosed Date Resolved Date Neck pain 03/11/2022 07/21/2022 Hilar adenopathy 07/09/2018 08/19/2018 Last Assessment & Plan: Assessment: CT A/P on Admission shows Significant subcarinal and bilateral hilar adenopathy on the lower images through the chest. Lymphoproliferative disease suspected He does have a hx of sarcoid But no recent CT chest/CXR to compare. CT chest shows SPLENOMEGALY AND NUMEROUS ENLARGED MEDIASTINAL AND BILATERAL HILAR LYMPH NODES, INCREASED IN SIZE SINCE 2016. THE DIFFERENTIAL DIAGNOSIS INCLUDES SARCOIDOSIS AND LYMPHOPROLIFERATIVE DISEASE. PLAN: -Transfer to [facility] for further evaluation by oncology per ID recommedation. Nausea & vomiting 07/09/2018 07/28/2018 Last Assessment & Plan: Assessment: Patient notes off and on nausea for one month. Also notes worsening control of his reflux symptoms. CTA/P shows significant subcarinal and bilateral hilar adenopathy and new subtle intrahepatic biliary dilatation and common duct dilatation . Obstructing lesion must be excluded, however.Splenic enlargement PLAN: -Increase protonix to 40mg bid -Zofran PRN for N/V -GI consult pending. JAROD (acute kidney injury) 07/09/2018 Last Assessment & Plan: Assessment: Cr on admission was 1.4. He was 1.34 on 07/05/18. He had CT with contrast today . He received one liter of normal saline in the ER PLAN: Gentle hydration and reasses with am labs Hold lisinopril for now. Avoid nephrotoxins Cellulitis 07/09/2018 07/13/2018 Abdominal wall cellulitis 12/01/2017 Last Assessment & Plan: Assessment: Second Episode this year . Likely due to his constant picking of the skin of his abdomen. He is HDS, no leucocytosis,crp 2.6,ESR 2,lactate normal CTA/P shows no abscess nor cellulitis . PLAN: Continue ancef started in the ER. Continue bactrim as scheduled for prophylaxis - due to hx of liver transplant PRN morphine for pain. 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 Overview: Critical illness polymyoneuropathy secondary to patient's critical illness requiring paralytics and bedridden state MRI brain and cervical-thoracic spine 11/12 unrevealing -- resting prafo boot -- Ankles have plantar deviation contractures - require stretching (aggressive) resting foot/ankle splints -- Physical therapy daily -- F/u any neuro recs Respiratory failure, post-operative 10/22/2015 04/22/2017 Overview: Pt intubated for OLT on 10/03/15, remained intubated d/t severe hypoxia (see hepato pulmonary syndrome) 11/01 s/p tracheostomy Very weak and debilitated, profound ICU neuromyopathy Currently improved, toleratingTC, passy etta valve capped -- continue trach collar, PMV Acute pneumothorax 10/17/2015 7 Prerenal azotemia 10/17/2015 10/24/2015 Overview: Bun/ Creat ratio now trending down. Hypernatremia resolved -- trend Renal indices -- lasix 20 mg q8 Acute pulmonary embolism 10/17/201505/2017 Spontaneous pneumothorax 10/16/201505/2017 Overview: Pneumothorax discovered on CT chest 10/15 in setting of high PEEP requirements s/p chest tube placements x2 Last CT removed 11/02 CXR with small persistent Rt. Apical pneumothorax- not appeciated on today's CXR --continue to follow daily CXRs Pneumonia, organism unspecified([id number]) 10/16/2015 11/02/2015 Overview: CT of chest 10/15 shows RLL consolidation suspicious for pneumonia. Completed course of vanco and meropenem continuing micfungin. Sputum culture from 10/09 shows normal respiratory erum. legionella urinary antigen negative --ID following Sepsis due to other etiology 10/15/2015 04/22/2017 Overview: Has completed empiric courses of antibiotics for persistent low grade fevers and acute decompensation No obvious source of infection identified per extensive ID workup Vanco d/c 10/25, Meropenem d/c 10/26 11/04 Acute decompensation (fevers 11/05) empiric pip-tazo, vanc, micafungin added--> off since 11/11 (cultures negative) CT chest/ab/pelvis (11/08) with no evidence of infective process -- continue to monitor off ATB Postoperative shock 10/09/2015 04/22/20 17 Overview: Shock, hypotension, fevers with increasing leukocytosis in setting of liver transplant, hepatopulmonary syndrome, ARDS, hypoxia. Profound hypoxia requiring nitric oxide therapy. Required low dose levo for BP support, now off. Concern for sepsis, blood cultures negative to date, vanco and zosyn started empirically 10/08. Procalcitonin 1.06. Lacate 1.8 -- Follow cultures -- continue vanco and zosyn -- levo for BP support (avoid fluid boluses if hypotensive) Electrolyte and fluid disorder 10/07/2015 04/22/2017 Overview: Hypomagnesemia repleted, hyperphos -- monitor and replete lytes daily -- increase daily PO mag oxide to 800 mg TID New onset seizure 10/05/2015 11/22/2019 Overview: Seizure activity 10/05, BEM supported the dx of cortical dysfunction in the left hemisphere with potential epileptogenicity in the left fronto-central region CT head negative for acute process, neurology consulted, loaded with Keppra Currently alert, follows commands -- weaned to Keppra 500mg bid -- neurology recommending follow up with epilepsy as outpatient ARDS (adult respiratory distress syndrome) 10/05/2015 04/22/2017 Overview: Hx of hepatopulmonary syndrome, pulmonary sarcoidosis requiring home O2 6-10 liters Pulmonary HTN with ~45% shunt. Pre-op PaO2 ~55 on RA CXR now with bilateral fluffy infiltrates / ARDS w/ pulmonary edema Desaturates with movement, turning, suctioning. Space = 60% today, with compliance ~45 -- maintain aggressive vent support (100% FiO2, wean PEEP is able as higher PEEP to increase shunt) -- lung protective strategies - Vt 6ml/kg ideal body weight (~350ml) -- trach on hold while unstable -- lasix TID -- Continue Nitric oxide -- increased I:E ratio -- avoid fluid boluses for hypotension - use pressors if needed -- sputum sent for culture Postoperative anemia due to acute blood loss 04/22/2017 Overview: S/P liver transplant with EBL 17 L c/b thrombocytopenia, coagulopahty and OP bleeding requiring intra-op nasal and pharyngeal packing Last transfused 10/08 2U PRBCs. 10/10: ENT removed nasal merocel. Clots in both nasopharyxes. No reinsertion of nasal tubes. -- monitor CBC and coags -- transfuse as required Agitation requiring sedation protocol 10/05/2015 04/22/2017 Overview: Required prolonged neuromuscular blockade with deep sedation secondary to increased WOB, breath stacking and hypoxia After discontinuation, he has had difficultly controlling agitation, likely opioid withdrawl. Had required precedex, fentanyl patch, prn haldol, seroquel Currently on seroquel, fentanyl patch Has been awake and alert, very cooperative -- continue on decreased TID seroquel dosing of 25mg TID and 150 mg qHS -- continue with fentanyl patch Acute post-operative pain 10/05/2015 Overview: Was on prolonged fentanyl infusion d/t vent asynchrony, pain from liver tx Now transitioned to patch, infusion stopped 3/2 -- continue fentanyl patch (100mcg) Renal insufficiency 10/05/2015 10/08/19 16 Overview: Secondary to hypotension Baseline Scr 0.66, now down to 0.83 Making good UO -- monitor renal indices Stress hyperglycemia 10/05/2015 017 Overview: -- Adequate glycemic control with SSI Moderate protein-calorie malnutrition 10/05/2015 04/22/2017 Overview: Tolerating goal tube feeds Osmolite 1.2 @ 70 Prealbumin 26, transferrin 185 -- continue TF with fiber and beneprotien and full liquid diet -- nutrition following Abdominal distension 09/12/2015 017 Overview: - concerning given weight gain of 30 lb from 09/04 - CT abdomen on last admission showed tissue edema> ascites, concern for third spacing in the abdominal wall tissue - no evidence of active infection, however, currently pancytopenia - was taking Lasix 20 mg PO every other day and spironolactone 50 mg PO daily - Liver vascular U/S demonstrates patent vasculature Plan - diuresis with Lasix 40 mg PO BID and spironolactone 100 mg PO daily - paracentesis as needed for respiratory function Liver transplant candidate 08/17/2015 0 04/22/2017 Pain disorder with psychological factors 08/06/2015 12/23/2021 Chronic abdominal pain 07/20/201510/21 Hyperammonemia 07/20/2015 04/22/2017 SUMMARY 06/14/2015 09/12/2015 Overview: Mr. 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 SOB (shortness of breath) 06/14/2015 Overview: Started after dry run Possibly irritated by catheter? Systolic murmur also heard Chest x-ray and CT PE negative Currently at baseline New valvular lesion vs clot? -Echocardiogram -Doppler study -Observe for now Hepatic cirrhosis 06/14/2015 04/22/2017 Overview: #Cirrhosis -Continue lactulose, rifaximin -Continue aldactone Infection of other external stoma of urinary tract 05/17/2015 04/22/2017 UTI (lower urinary tract infection) 04/08/2015 04/22/2017 Overview: Was complaining of dysuria. UA positive with leukoesterase and Was started of ceftriaxone at OSH. Received 2 dosages here yesterday and one today. Will finish treatment for complicated UTI at home with cipro 500BID Hepatic encephalopathy 04/08/201504/22 Overview: On lactulose zinc Rifaximin Fever, low grade 11/03/2014 04/22/2017 Overview: Low grade fever on presentation UA clean Plan - Blood cx ngtd - afebrile since SUMMARY 08/31/2014 07/24/2016 Overview: The patient is a 50 yo male with a past medical history of HCV/ETOH Liver Cirrhosis c/b hepatopulmonary syndrome, hypersplenism, HE, Grade I EV, pulmonary sarcoidosis who presents with acute weight gain, abdominal distension, and SOB Fever and chills 08/31/2014 04/22/2017 Overview: Tmax 38.7 this AM; pt reports recent history of tooth extraction One time fever yesterday Received 2 time cefazolin after PFO closure. Plan: -UA, BCxx2 - NG till now -will hold off on abx for now and observe Retained dental root 08/15/2014 022 Hepatopulmonary syndrome 03/12/201402/2018 Overview: History of hepatopulmonary syndrome with ~45.2% shunt, pulmonary sarcoidosis requiring home O2 6-10 liters and mild pulmonary HTN Preop PaO2 ~55 on RA Profound hypoxia postoperatively requiring max vent support with high PEEP, heavy sedation/paralytics, flolan, nitric oxide (off since 10/26) Course c/b Right lung Pneumothorax, resp failure requiring trach 11/01 Decompensation 11/04 secondary to narcotic withdrawal +/- sepsis-->Drastically improved with fentanyl infusion, ATB. Updated echo 11/15 with EF 55%, normal RV Currently doing great, on continuous trach collar with passy etta valve, and diet -- Goal sats 85% -- Continue TC, PMV, OOB Bicytopenia 03/12/2014 04/22/2017 Overview: He has plat count of 20k and WCC of around 1000 His neutropenia is likely 2/2 to INF His thrombocytopenia is likley 2/2 to his cirrhosis Plan: Watch, transfuse plats if <10k or bleeding Pancytopenia 03/11/2014 03/12/2014 Hypoxemia 03/11/2014 10/15/2015 Overview: Due to underlying HPS Now on 100% Fio2 with last PaO2 60, Nitric oxide started 10/08, at 40 PPM. O2 sats maintaining in 80s CTS consulted for ECMO evaluation -- Given profound thrombocytopenia and grave condition ECMO not recommended -- Continue nitric oxide -- lung protective ventilation -- increased I:E ratio (at 2.4:1), paralyze with rocuronium if needed -- goal of O2 sats in 70s permissible COPD (chronic obstructive pulmonary disease) 4 03/12/2014 Coagulopathy 03/11/2014 04/22/2017 Syncope 01/03/2014 04/22/2017 Epididymitis 11/24/2013 04/22/2017 Testalgia 11/24/2013 04/22/2017 Thrombocytopenia 08/20/2009 04/22/2017 Overview: Platelets 96k today, received platelets 10/11 prior to liver biopsy. no obvious bleeding -- monitor CBC, coags -- transfuse as required -- monitor for bleeding -- transfuse plts prior to invasive procedures Hepatitis C 08/20/2009 11/03/2014 Cirrhosis 04/22/2017 Overview: Secondary to alcohol use and HCV complicated by ascites, PSE (on lactulose, rifaximin) and hepatopulmonary syndrome on home O2 s/p OLT on 10/03/15 Concern for rejection (humoral), now s/p thymo, IVIG, plasmapheresis 10/15 and 10/16 completed -hydrocortisone (switched from prednisone) now tapering down - MMF - FK documented as of this encounter (statuses as of 11/16/2023) [facility] History of Past illness Narrative* Problem Noted Date Diagnosed Date Resolved Date Neck pain 03/11/2022 07/21/2022 Hilar adenopathy 07/09/2018 08/19/2018 Last Assessment & Plan: Assessment: CT A/P on Admission shows Significant subcarinal and bilateral hilar adenopathy on the lower images through the chest. Lymphoproliferative disease suspected He does have a hx of sarcoid But no recent CT chest/CXR to compare. CT chest shows SPLENOMEGALY AND NUMEROUS ENLARGED MEDIASTINAL AND BILATERAL HILAR LYMPH NODES, INCREASED IN SIZE SINCE 2016. THE DIFFERENTIAL DIAGNOSIS INCLUDES SARCOIDOSIS AND LYMPHOPROLIFERATIVE DISEASE. PLAN: -Transfer to [facility] for further evaluation by oncology per ID recommedation. Nausea & vomiting 07/09/2018 07/28/2018 Last Assessment & Plan: Assessment: Patient notes off and on nausea for one month. Also notes worsening control of his reflux symptoms. CTA/P shows significant subcarinal and bilateral hilar adenopathy and new subtle intrahepatic biliary dilatation and common duct dilatation . Obstructing lesion must be excluded, however.Splenic enlargement PLAN: -Increase protonix to 40mg bid -Zofran PRN for N/V -GI consult pending. JAROD (acute kidney injury) 07/09/2018 Last Assessment & Plan: Assessment: Cr on admission was 1.4. He was 1.34 on 07/05/18. He had CT with contrast today . He received one liter of normal saline in the ER PLAN: Gentle hydration and reasses with am labs Hold lisinopril for now. Avoid nephrotoxins Cellulitis 07/09/2018 07/13/2018 Abdominal wall cellulitis 12/01/2017 04 /07/2022 Last Assessment & Plan: Assessment: Second Episode this year . Likely due to his constant picking of the skin of his abdomen. He is HDS, no leucocytosis,crp 2.6,ESR 2,lactate normal CTA/P shows no abscess nor cellulitis . PLAN: Continue ancef started in the ER. Continue bactrim as scheduled for prophylaxis - due to hx of liver transplant PRN morphine for pain. 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 Overview: Critical illness polymyoneuropathy secondary to patient's critical illness requiring paralytics and bedridden state MRI brain and cervical-thoracic spine 11/12 unrevealing -- resting prafo boot -- Ankles have plantar deviation contractures - require stretching (aggressive) resting foot/ankle splints -- Physical therapy daily -- F/u any neuro recs Respiratory failure, post-operative 10/22/2015 04/22/2017 Overview: Pt intubated for OLT on 10/03/15, remained intubated d/t severe hypoxia (see hepato pulmonary syndrome) 11/01 s/p tracheostomy Very weak and debilitated, profound ICU neuromyopathy Currently improved, toleratingTC, passy etta valve capped -- continue trach collar, PMV Acute pneumothorax 10/17/2015 7 Prerenal azotemia 10/17/2015 10/24/2015 Overview: Bun/ Creat ratio now trending down. Hypernatremia resolved -- trend Renal indices -- lasix 20 mg q8 Acute pulmonary embolism 10/17/201505/2017 Spontaneous pneumothorax 10/16/201505/2017 Overview: Pneumothorax discovered on CT chest 10/15 in setting of high PEEP requirements s/p chest tube placements x2 Last CT removed 11/02 CXR with small persistent Rt. Apical pneumothorax- not appeciated on today's CXR --continue to follow daily CXRs Pneumonia, organism unspecified([phone]) 10/16/2015 11/02/2015 Overview: CT of chest 10/15 shows RLL consolidation suspicious for pneumonia. Completed course of vanco and meropenem continuing micfungin. Sputum culture from 10/09 shows normal respiratory erum. legionella urinary antigen negative --ID following Sepsis due to other etiology 10/15/2015 04/22/2017 Overview: Has completed empiric courses of antibiotics for persistent low grade fevers and acute decompensation No obvious source of infection identified per extensive ID workup Vanco d/c 10/25, Meropenem d/c 10/26 11/04 Acute decompensation (fevers 11/05) empiric pip-tazo, vanc, micafungin added--> off since 11/11 (cultures negative) CT chest/ab/pelvis (11/08) with no evidence of infective process -- continue to monitor off ATB Postoperative shock 10/09/2015 04/22/20 17 Overview: Shock, hypotension, fevers with increasing leukocytosis in setting of liver transplant, hepatopulmonary syndrome, ARDS, hypoxia. Profound hypoxia requiring nitric oxide therapy. Required low dose levo for BP support, now off. Concern for sepsis, blood cultures negative to date, vanco and zosyn started empirically 10/08. Procalcitonin 1.06. Lacate 1.8 -- Follow cultures -- continue vanco and zosyn -- levo for BP support (avoid fluid boluses if hypotensive) Electrolyte and fluid disorder 10/07/2015 04/22/2017 Overview: Hypomagnesemia repleted, hyperphos -- monitor and replete lytes daily -- increase daily PO mag oxide to 800 mg TID New onset seizure 10/05/2015 11/22/2019 Overview: Seizure activity 10/05, BEM supported the dx of cortical dysfunction in the left hemisphere with potential epileptogenicity in the left fronto-central region CT head negative for acute process, neurology consulted, loaded with Keppra Currently alert, follows commands -- weaned to Keppra 500mg bid -- neurology recommending follow up with epilepsy as outpatient ARDS (adult respiratory distress syndrome) 10/05/2015 04/22/2017 Overview: Hx of hepatopulmonary syndrome, pulmonary sarcoidosis requiring home O2 6-10 liters Pulmonary HTN with ~45% shunt. Pre-op PaO2 ~55 on RA CXR now with bilateral fluffy infiltrates / ARDS w/ pulmonary edema Desaturates with movement, turning, suctioning. Space = 60% today, with compliance ~45 -- maintain aggressive vent support (100% FiO2, wean PEEP is able as higher PEEP to increase shunt) -- lung protective strategies - Vt 6ml/kg ideal body weight (~350ml) -- trach on hold while unstable -- lasix TID -- Continue Nitric oxide -- increased I:E ratio -- avoid fluid boluses for hypotension - use pressors if needed -- sputum sent for culture Postoperative anemia due to acute blood loss 6 04/22/2017 Overview: S/P liver transplant with EBL 17 L c/b thrombocytopenia, coagulopahty and OP bleeding requiring intra-op nasal and pharyngeal packing Last transfused 10/08 2U PRBCs. 10/10: ENT removed nasal merocel. Clots in both nasopharyxes. No reinsertion of nasal tubes. -- monitor CBC and coags -- transfuse as required Agitation requiring sedation protocol 10/05/2015 04/22/2017 Overview: Required prolonged neuromuscular blockade with deep sedation secondary to increased WOB, breath stacking and hypoxia After discontinuation, he has had difficultly controlling agitation, likely opioid withdrawl. Had required precedex, fentanyl patch, prn haldol, seroquel Currently on seroquel, fentanyl patch Has been awake and alert, very cooperative -- continue on decreased TID seroquel dosing of 25mg TID and 150 mg qHS -- continue with fentanyl patch Acute post-operative pain 10/05/2015 Overview: Was on prolonged fentanyl infusion d/t vent asynchrony, pain from liver tx Now transitioned to patch, infusion stopped 11/13 -- continue fentanyl patch (100mcg) Renal insufficiency 10/05/2015 10/08/19 16 Overview: Secondary to hypotension Baseline Scr 0.66, now down to 0.83 Making good UO -- monitor renal indices Stress hyperglycemia 10/05/2015 017 Overview: -- Adequate glycemic control with SSI Moderate protein-calorie malnutrition 10/05/2015 04/22/2017 Overview: Tolerating goal tube feeds Osmolite 1.2 @ 70 Prealbumin 26, transferrin 185 -- continue TF with fiber and beneprotien and full liquid diet -- nutrition following Abdominal distension 09/12/2015 017 Overview: - concerning given weight gain of 30 lb from 09/04 - CT abdomen on last admission showed tissue edema> ascites, concern for third spacing in the abdominal wall tissue - no evidence of active infection, however, currently pancytopenia - was taking Lasix 20 mg PO every other day and spironolactone 50 mg PO daily - Liver vascular U/S demonstrates patent vasculature Plan - diuresis with Lasix 40 mg PO BID and spironolactone 100 mg PO daily - paracentesis as needed for respiratory function Liver transplant candidate 08/17/2015 0 04/22/2017 Pain disorder with psychological factors 08/06/2015 12/23/2021 Chronic abdominal pain 07/20/201510/21 Hyperammonemia 07/20/2015 04/22/2017 SUMMARY 06/14/2015 09/12/2015 Overview: Mr. 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 SOB (shortness of breath) 06/14/2015 Overview: Started after dry run Possibly irritated by catheter? Systolic murmur also heard Chest x-ray and CT PE negative Currently at baseline New valvular lesion vs clot? -Echocardiogram -Doppler study -Observe for now Hepatic cirrhosis 06/14/2015 04/22/2017 Overview: #Cirrhosis -Continue lactulose, rifaximin -Continue aldactone Infection of other external stoma of urinary tract 05/17/2015 04/22/2017 UTI (lower urinary tract infection) 04/08/2015 04/22/2017 Overview: Was complaining of dysuria. UA positive with leukoesterase and Was started of ceftriaxone at OSH. Received 2 dosages here yesterday and one today. Will finish treatment for complicated UTI at home with cipro 500BID Hepatic encephalopathy 04/08/201504/22 Overview: On lactulose zinc Rifaximin Fever, low grade 11/03/2014 04/22/2017 Overview: Low grade fever on presentation UA clean Plan - Blood cx ngtd - afebrile since SUMMARY 08/31/2014 07/24/2016 Overview: The patient is a 50 yo male with a past medical history of HCV/ETOH Liver Cirrhosis c/b hepatopulmonary syndrome, hypersplenism, HE, Grade I EV, pulmonary sarcoidosis who presents with acute weight gain, abdominal distension, and SOB Fever and chills 08/31/2014 04/22/2017 Overview: Tmax 38.7 this AM; pt reports recent history of tooth extraction One time fever yesterday Received 2 time cefazolin after PFO closure. Plan: -UA, BCxx2 - NG till now -will hold off on abx for now and observe Retained dental root 08/15/2014 022 Hepatopulmonary syndrome 03/12/201402/2018 Overview: History of hepatopulmonary syndrome with ~45.2% shunt, pulmonary sarcoidosis requiring home O2 6-10 liters and mild pulmonary HTN Preop PaO2 ~55 on RA Profound hypoxia postoperatively requiring max vent support with high PEEP, heavy sedation/paralytics, flolan, nitric oxide (off since 10/26) Course c/b Right lung Pneumothorax, resp failure requiring trach 11/01 Decompensation 11/04 secondary to narcotic withdrawal +/- sepsis-->Drastically improved with fentanyl infusion, ATB. Updated echo 11/15 with EF 55%, normal RV Currently doing great, on continuous trach collar with passy etta valve, and diet -- Goal sats 85% -- Continue TC, PMV, OOB Bicytopenia 03/12/2014 04/22/2017 Overview: He has plat count of 20k and WCC of around 1000 His neutropenia is likely 2/2 to INF His thrombocytopenia is likley 2/2 to his cirrhosis Plan: Watch, transfuse plats if <10k or bleeding Pancytopenia 03/11/2014 03/12/2014 Hypoxemia 03/11/2014 10/15/2015 Overview: Due to underlying HPS Now on 100% Fio2 with last PaO2 60, Nitric oxide started 10/08, at 40 PPM. O2 sats maintaining in 80s CTS consulted for ECMO evaluation -- Given profound thrombocytopenia and grave condition ECMO not recommended -- Continue nitric oxide -- lung protective ventilation -- increased I:E ratio (at 2.4:1), paralyze with rocuronium if needed -- goal of O2 sats in 70s permissible COPD (chronic obstructive pulmonary disease) 4 03/12/2014 Coagulopathy 03/11/2014 04/22/2017 Syncope 01/03/2014 04/22/2017 Epididymitis 11/24/2013 04/22/2017 Testalgia 11/24/2013 04/22/2017 Thrombocytopenia 08/20/2009 04/22/2017 Overview: Platelets 96k today, received platelets 10/11 prior to liver biopsy. no obvious bleeding -- monitor CBC, coags -- transfuse as required -- monitor for bleeding -- transfuse plts prior to invasive procedures Hepatitis C 08/20/2009 11/03/2014 Cirrhosis 04/22/2017 Overview: Secondary to alcohol use and HCV complicated by ascites, PSE (on lactulose, rifaximin) and hepatopulmonary syndrome on home O2 s/p OLT on 10/03/15 Concern for rejection (humoral), now s/p thymo, IVIG, plasmapheresis 10/15 and 10/16 completed -hydrocortisone (switched from prednisone) now tapering down - MMF - FK documented as of this encounter (statuses as of 12/25/2023) [facility]06[facility] History of Past illness Narrative* Problem Noted Date Diagnosed Date Resolved Date Neck pain 03/11/2022 07/21/2022 Hilar adenopathy 07/09/2018 08/19/2018 Last Assessment & Plan: Assessment: CT A/P on Admission shows Significant subcarinal and bilateral hilar adenopathy on the lower images through the chest. Lymphoproliferative disease suspected He does have a hx of sarcoid But no recent CT chest/CXR to compare. CT chest shows SPLENOMEGALY AND NUMEROUS ENLARGED MEDIASTINAL AND BILATERAL HILAR LYMPH NODES, INCREASED IN SIZE SINCE 2016. THE DIFFERENTIAL DIAGNOSIS INCLUDES SARCOIDOSIS AND LYMPHOPROLIFERATIVE DISEASE. PLAN: -Transfer to [facility] for further evaluation by oncology per ID recommedation. Nausea & vomiting 07/09/2018 07/28/2018 Last Assessment & Plan: Assessment: Patient notes off and on nausea for one month. Also notes worsening control of his reflux symptoms. CTA/P shows significant subcarinal and bilateral hilar adenopathy and new subtle intrahepatic biliary dilatation and common duct dilatation . Obstructing lesion must be excluded, however.Splenic enlargement PLAN: -Increase protonix to 40mg bid -Zofran PRN for N/V -GI consult pending. JAROD (acute kidney injury) 07/09/2018 Last Assessment & Plan: Assessment: Cr on admission was 1.4. He was 1.34 on 07/05/18. He had CT with contrast today . He received one liter of normal saline in the ER PLAN: Gentle hydration and reasses with am labs Hold lisinopril for now. Avoid nephrotoxins Cellulitis 07/09/2018 07/13/2018 Abdominal wall cellulitis 12/01/2017 Last Assessment & Plan: Assessment: Second Episode this year . Likely due to his constant picking of the skin of his abdomen. He is HDS, no leucocytosis,crp 2.6,ESR 2,lactate normal CTA/P shows no abscess nor cellulitis . PLAN: Continue ancef started in the ER. Continue bactrim as scheduled for prophylaxis - due to hx of liver transplant PRN morphine for pain. 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 01/19/2023 Overview: Critical illness polymyoneuropathy secondary to patient's critical illness requiring paralytics and bedridden state MRI brain and cervical-thoracic spine 11/12 unrevealing -- resting prafo boot -- Ankles have plantar deviation contractures - require stretching (aggressive) resting foot/ankle splints -- Physical therapy daily -- F/u any neuro recs Respiratory failure, post-operative 10/22/2015 04/22/2017 Overview: Pt intubated for OLT on 10/03/15, remained intubated d/t severe hypoxia (see hepato pulmonary syndrome) 11/01 s/p tracheostomy Very weak and debilitated, profound ICU neuromyopathy Currently improved, toleratingTC, passy etta valve capped -- continue trach collar, PMV Acute pneumothorax 10/17/2015 7 Prerenal azotemia 10/17/2015 10/24/2015 Overview: Bun/ Creat ratio now trending down. Hypernatremia resolved -- trend Renal indices -- lasix 20 mg q8 Acute pulmonary embolism 10/17/201505/2017 Spontaneous pneumothorax 10/16/201505/2017 Overview: Pneumothorax discovered on CT chest 10/15 in setting of high PEEP requirements s/p chest tube placements x2 Last CT removed 11/02 CXR with small persistent Rt. Apical pneumothorax- not appeciated on today's CXR --continue to follow daily CXRs Pneumonia, organism unspecified([phone]) 10/16/2015 11/02/2015 Overview: CT of chest 10/15 shows RLL consolidation suspicious for pneumonia. Completed course of vanco and meropenem continuing micfungin. Sputum culture from 10/09 shows normal respiratory erum. legionella urinary antigen negative --ID following Sepsis due to other etiology 10/15/2015 04/22/2017 Overview: Has completed empiric courses of antibiotics for persistent low grade fevers and acute decompensation No obvious source of infection identified per extensive ID workup Vanco d/c 10/25, Meropenem d/c 10/26 11/04 Acute decompensation (fevers 11/05) empiric pip-tazo, vanc, micafungin added--> off since 11/11 (cultures negative) CT chest/ab/pelvis (11/08) with no evidence of infective process -- continue to monitor off ATB Postoperative shock 10/09/2015 04/22/20 17 Overview: Shock, hypotension, fevers with increasing leukocytosis in setting of liver transplant, hepatopulmonary syndrome, ARDS, hypoxia. Profound hypoxia requiring nitric oxide therapy. Required low dose levo for BP support, now off. Concern for sepsis, blood cultures negative to date, vanco and zosyn started empirically 10/08. Procalcitonin 1.06. Lacate 1.8 -- Follow cultures -- continue vanco and zosyn -- levo for BP support (avoid fluid boluses if hypotensive) Electrolyte and fluid disorder 10/07/2015 04/22/2017 Overview: Hypomagnesemia repleted, hyperphos -- monitor and replete lytes daily -- increase daily PO mag oxide to 800 mg TID New onset seizure 10/05/2015 11/22/2019 Overview: Seizure activity 10/05, BEM supported the dx of cortical dysfunction in the left hemisphere with potential epileptogenicity in the left fronto-central region CT head negative for acute process, neurology consulted, loaded with Keppra Currently alert, follows commands -- weaned to Keppra 500mg bid -- neurology recommending follow up with epilepsy as outpatient ARDS (adult respiratory distress syndrome) 10/05/2015 04/22/2017 Overview: Hx of hepatopulmonary syndrome, pulmonary sarcoidosis requiring home O2 6-10 liters Pulmonary HTN with ~45% shunt. Pre-op PaO2 ~55 on RA CXR now with bilateral fluffy infiltrates / ARDS w/ pulmonary edema Desaturates with movement, turning, suctioning. Space = 60% today, with compliance ~45 -- maintain aggressive vent support (100% FiO2, wean PEEP is able as higher PEEP to increase shunt) -- lung protective strategies - Vt 6ml/kg ideal body weight (~350ml) -- trach on hold while unstable -- lasix TID -- Continue Nitric oxide -- increased I:E ratio -- avoid fluid boluses for hypotension - use pressors if needed -- sputum sent for culture Postoperative anemia due to acute blood loss 04/22/2017 Overview: S/P liver transplant with EBL 17 L c/b thrombocytopenia, coagulopahty and OP bleeding requiring intra-op nasal and pharyngeal packing Last transfused 10/08 2U PRBCs. 10/10: ENT removed nasal merocel. Clots in both nasopharyxes. No reinsertion of nasal tubes. -- monitor CBC and coags -- transfuse as required Agitation requiring sedation protocol 10/05/2015 04/22/2017 Overview: Required prolonged neuromuscular blockade with deep sedation secondary to increased WOB, breath stacking and hypoxia After discontinuation, he has had difficultly controlling agitation, likely opioid withdrawl. Had required precedex, fentanyl patch, prn haldol, seroquel Currently on seroquel, fentanyl patch Has been awake and alert, very cooperative -- continue on decreased TID seroquel dosing of 25mg TID and 150 mg qHS -- continue with fentanyl patch Acute post-operative pain 10/05/2015 Overview: Was on prolonged fentanyl infusion d/t vent asynchrony, pain from liver tx Now transitioned to patch, infusion stopped 11/13 -- continue fentanyl patch (100mcg) Renal insufficiency 10/05/2015 10/08/19 16 Overview: Secondary to hypotension Baseline Scr 0.66, now down to 0.83 Making good UO -- monitor renal indices Stress hyperglycemia 10/05/2015 017 Overview: -- Adequate glycemic control with SSI Moderate protein-calorie malnutrition 10/05/2015 04/22/2017 Overview: Tolerating goal tube feeds Osmolite 1.2 @ 70 Prealbumin 26, transferrin 185 -- continue TF with fiber and beneprotien and full liquid diet -- nutrition following Abdominal distension 09/12/2015 017 Overview: - concerning given weight gain of 30 lb from 09/04 - CT abdomen on last admission showed tissue edema> ascites, concern for third spacing in the abdominal wall tissue - no evidence of active infection, however, currently pancytopenia - was taking Lasix 20 mg PO every other day and spironolactone 50 mg PO daily - Liver vascular U/S demonstrates patent vasculature Plan - diuresis with Lasix 40 mg PO BID and spironolactone 100 mg PO daily - paracentesis as needed for respiratory function Liver transplant candidate 08/17/2015 0 04/22/2017 Pain disorder with psychological factors 08/06/2015 12/23/2021 Chronic abdominal pain 07/20/201510/21 Hyperammonemia 07/20/2015 04/22/2017 SUMMARY 06/14/2015 09/12/2015 Overview: Mr. 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 SOB (shortness of breath) 06/14/2015 Overview: Started after dry run Possibly irritated by catheter? Systolic murmur also heard Chest x-ray and CT PE negative Currently at baseline New valvular lesion vs clot? -Echocardiogram -Doppler study -Observe for now Hepatic cirrhosis 06/14/2015 04/22/2017 Overview: #Cirrhosis -Continue lactulose, rifaximin -Continue aldactone Infection of other external stoma of urinary tract 05/17/2015 04/22/2017 UTI (lower urinary tract infection) 04/08/2015 04/22/2017 Overview: Was complaining of dysuria. UA positive with leukoesterase and Was started of ceftriaxone at OSH. Received 2 dosages here yesterday and one today. Will finish treatment for complicated UTI at home with cipro 500BID Hepatic encephalopathy 04/08/201504/22 Overview: On lactulose zinc Rifaximin Fever, low grade 11/03/2014 04/22/2017 Overview: Low grade fever on presentation UA clean Plan - Blood cx ngtd - afebrile since SUMMARY 08/31/2014 07/24/2016 Overview: The patient is a 50 yo male with a past medical history of HCV/ETOH Liver Cirrhosis c/b hepatopulmonary syndrome, hypersplenism, HE, Grade I EV, pulmonary sarcoidosis who presents with acute weight gain, abdominal distension, and SOB Fever and chills 08/31/2014 04/22/2017 Overview: Tmax 38.7 this AM; pt reports recent history of tooth extraction One time fever yesterday Received 2 time cefazolin after PFO closure. Plan: -UA, BCxx2 - NG till now -will hold off on abx for now and observe Retained dental root 08/15/2014 022 Hepatopulmonary syndrome 03/12/201402/2018 Overview: History of hepatopulmonary syndrome with ~45.2% shunt, pulmonary sarcoidosis requiring home O2 6-10 liters and mild pulmonary HTN Preop PaO2 ~55 on RA Profound hypoxia postoperatively requiring max vent support with high PEEP, heavy sedation/paralytics, flolan, nitric oxide (off since 10/26) Course c/b Right lung Pneumothorax, resp failure requiring trach 11/01 Decompensation 11/04 secondary to narcotic withdrawal +/- sepsis-->Drastically improved with fentanyl infusion, ATB. Updated echo 11/15 with EF 55%, normal RV Currently doing great, on continuous trach collar with passy etta valve, and diet -- Goal sats 85% -- Continue TC, PMV, OOB Bicytopenia 03/12/2014 04/22/2017 Overview: He has plat count of 20k and WCC of around 1000 His neutropenia is likely 2/2 to INF His thrombocytopenia is likley 2/2 to his cirrhosis Plan: Watch, transfuse plats if <10k or bleeding Pancytopenia 03/11/2014 03/12/2014 Hypoxemia 03/11/2014 10/15/2015 Overview: Due to underlying HPS Now on 100% Fio2 with last PaO2 60, Nitric oxide started 10/08, at 40 PPM. O2 sats maintaining in 80s CTS consulted for ECMO evaluation -- Given profound thrombocytopenia and grave condition ECMO not recommended -- Continue nitric oxide -- lung protective ventilation -- increased I:E ratio (at 2.4:1), paralyze with rocuronium if needed -- goal of O2 sats in 70s permissible COPD (chronic obstructive pulmonary disease) 4 03/12/2014 Coagulopathy 03/11/2014 04/22/2017 Syncope 01/03/2014 04/22/2017 Epididymitis 11/24/2013 04/22/2017 Testalgia 11/24/2013 04/22/2017 Thrombocytopenia 08/20/2009 04/22/2017 Overview: Platelets 96k today, received platelets 10/11 prior to liver biopsy. no obvious bleeding -- monitor CBC, coags -- transfuse as required -- monitor for bleeding -- transfuse plts prior to invasive procedures Hepatitis C 08/20/2009 11/03/2014 Cirrhosis 04/22/2017 Overview: Secondary to alcohol use and HCV complicated by ascites, PSE (on lactulose, rifaximin) and hepatopulmonary syndrome on home O2 s/p OLT on 10/03/15 Concern for rejection (humoral), now s/p thymo, IVIG, plasmapheresis 10/15 and 10/16 completed -hydrocortisone (switched from prednisone) now tapering down - MMF - FK documented as of this encounter (statuses as of 01/01/2024) [facility]06[facility] History of Past illness Narrative* Problem Noted Date Diagnosed Date Resolved Date Neck pain 03/11/2022 07/21/2022 Hilar adenopathy 07/09/2018 08/19/2018 Last Assessment & Plan: Assessment: CT A/P on Admission shows Significant subcarinal and bilateral hilar adenopathy on the lower images through the chest. Lymphoproliferative disease suspected He does have a hx of sarcoid But no recent CT chest/CXR to compare. CT chest shows SPLENOMEGALY AND NUMEROUS ENLARGED MEDIASTINAL AND BILATERAL HILAR LYMPH NODES, INCREASED IN SIZE SINCE 2016. THE DIFFERENTIAL DIAGNOSIS INCLUDES SARCOIDOSIS AND LYMPHOPROLIFERATIVE DISEASE. PLAN: -Transfer to [facility] for further evaluation by oncology per ID recommedation. Nausea & vomiting 07/09/2018 07/28/2018 Last Assessment & Plan: Assessment: Patient notes off and on nausea for one month. Also notes worsening control of his reflux symptoms. CTA/P shows significant subcarinal and bilateral hilar adenopathy and new subtle intrahepatic biliary dilatation and common duct dilatation . Obstructing lesion must be excluded, however.Splenic enlargement PLAN: -Increase protonix to 40mg bid -Zofran PRN for N/V -GI consult pending. JAROD (acute kidney injury) 07/09/2018 Last Assessment & Plan: Assessment: Cr on admission was 1.4. He was 1.34 on 07/05/18. He had CT with contrast today . He received one liter of normal saline in the ER PLAN: Gentle hydration and reasses with am labs Hold lisinopril for now. Avoid nephrotoxins Cellulitis 07/09/2018 07/13/2018 Abdominal wall cellulitis 12/01/2017 Last Assessment & Plan: Assessment: Second Episode this year . Likely due to his constant picking of the skin of his abdomen. He is HDS, no leucocytosis,crp 2.6,ESR 2,lactate normal CTA/P shows no abscess nor cellulitis . PLAN: Continue ancef started in the ER. Continue bactrim as scheduled for prophylaxis - due to hx of liver transplant PRN morphine for pain. 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 Overview: Critical illness polymyoneuropathy secondary to patient's critical illness requiring paralytics and bedridden state MRI brain and cervical-thoracic spine 11/12 unrevealing -- resting prafo boot -- Ankles have plantar deviation contractures - require stretching (aggressive) resting foot/ankle splints -- Physical therapy daily -- F/u any neuro recs Respiratory failure, post-operative 10/22/2015 04/22/2017 Overview: Pt intubated for OLT on 10/03/15, remained intubated d/t severe hypoxia (see hepato pulmonary syndrome) 11/01 s/p tracheostomy Very weak and debilitated, profound ICU neuromyopathy Currently improved, toleratingTC, passy etta valve capped -- continue trach collar, PMV Acute pneumothorax 10/17/2015 7 Prerenal azotemia 10/17/2015 10/24/2015 Overview: Bun/ Creat ratio now trending down. Hypernatremia resolved -- trend Renal indices -- lasix 20 mg q8 Acute pulmonary embolism 10/17/201505/2017 Spontaneous pneumothorax 10/16/201505/2017 Overview: Pneumothorax discovered on CT chest 10/15 in setting of high PEEP requirements s/p chest tube placements x2 Last CT removed 11/02 CXR with small persistent Rt. Apical pneumothorax- not appeciated on today's CXR --continue to follow daily CXRs Pneumonia, organism unspecified(486) 10/16/2015 11/02/2015 Overview: CT of chest 10/15 shows RLL consolidation suspicious for pneumonia. Completed course of vanco and meropenem continuing micfungin. Sputum culture from 10/09 shows normal respiratory erum. legionella urinary antigen negative --ID following Sepsis due to other etiology 10/15/2015 04/22/2017 Overview: Has completed empiric courses of antibiotics for persistent low grade fevers and acute decompensation No obvious source of infection identified per extensive ID workup Vanco d/c 10/25, Meropenem d/c 10/26 11/04 Acute decompensation (fevers 11/05) empiric pip-tazo, vanc, micafungin added--> off since 11/11 (cultures negative) CT chest/ab/pelvis (11/08) with no evidence of infective process -- continue to monitor off ATB Postoperative shock 10/09/2015 04/22/20 17 Overview: Shock, hypotension, fevers with increasing leukocytosis in setting of liver transplant, hepatopulmonary syndrome, ARDS, hypoxia. Profound hypoxia requiring nitric oxide therapy. Required low dose levo for BP support, now off. Concern for sepsis, blood cultures negative to date, vanco and zosyn started empirically 10/08. Procalcitonin 1.06. Lacate 1.8 -- Follow cultures -- continue vanco and zosyn -- levo for BP support (avoid fluid boluses if hypotensive) Electrolyte and fluid disorder 10/07/2015 04/22/2017 Overview: Hypomagnesemia repleted, hyperphos -- monitor and replete lytes daily -- increase daily PO mag oxide to 800 mg TID New onset seizure 10/05/2015 11/22/2019 Overview: Seizure activity 10/05, BEM supported the dx of cortical dysfunction in the left hemisphere with potential epileptogenicity in the left fronto-central region CT head negative for acute process, neurology consulted, loaded with Keppra Currently alert, follows commands -- weaned to Keppra 500mg bid -- neurology recommending follow up with epilepsy as outpatient ARDS (adult respiratory distress syndrome) 10/05/2015 04/22/2017 Overview: Hx of hepatopulmonary syndrome, pulmonary sarcoidosis requiring home O2 6-10 liters Pulmonary HTN with ~45% shunt. Pre-op PaO2 ~55 on RA CXR now with bilateral fluffy infiltrates / ARDS w/ pulmonary edema Desaturates with movement, turning, suctioning. Space = 60% today, with compliance ~45 -- maintain aggressive vent support (100% FiO2, wean PEEP is able as higher PEEP to increase shunt) -- lung protective strategies - Vt 6ml/kg ideal body weight (~350ml) -- trach on hold while unstable -- lasix TID -- Continue Nitric oxide -- increased I:E ratio -- avoid fluid boluses for hypotension - use pressors if needed -- sputum sent for culture Postoperative anemia due to acute blood loss 6 04/22/2017 Overview: S/P liver transplant with EBL 17 L c/b thrombocytopenia, coagulopahty and OP bleeding requiring intra-op nasal and pharyngeal packing Last transfused 10/08 2U PRBCs. 10/10: ENT removed nasal merocel. Clots in both nasopharyxes. No reinsertion of nasal tubes. -- monitor CBC and coags -- transfuse as required Agitation requiring sedation protocol 10/05/2015 04/22/2017 Overview: Required prolonged neuromuscular blockade with deep sedation secondary to increased WOB, breath stacking and hypoxia After discontinuation, he has had difficultly controlling agitation, likely opioid withdrawl. Had required precedex, fentanyl patch, prn haldol, seroquel Currently on seroquel, fentanyl patch Has been awake and alert, very cooperative -- continue on decreased TID seroquel dosing of 25mg TID and 150 mg qHS -- continue with fentanyl patch Acute post-operative pain 10/05/2015 Overview: Was on prolonged fentanyl infusion d/t vent asynchrony, pain from liver tx Now transitioned to patch, infusion stopped 11/13 -- continue fentanyl patch (100mcg) Renal insufficiency 10/05/2015 10/08/19 16 Overview: Secondary to hypotension Baseline Scr 0.66, now down to 0.83 Making good UO -- monitor renal indices Stress hyperglycemia 10/05/2015 017 Overview: -- Adequate glycemic control with SSI Moderate protein-calorie malnutrition 10/05/2015 04/22/2017 Overview: Tolerating goal tube feeds Osmolite 1.2 @ 70 Prealbumin 26, transferrin 185 -- continue TF with fiber and beneprotien and full liquid diet -- nutrition following Abdominal distension 09/12/2015 017 Overview: - concerning given weight gain of 30 lb from 09/04 - CT abdomen on last admission showed tissue edema> ascites, concern for third spacing in the abdominal wall tissue - no evidence of active infection, however, currently pancytopenia - was taking Lasix 20 mg PO every other day and spironolactone 50 mg PO daily - Liver vascular U/S demonstrates patent vasculature Plan - diuresis with Lasix 40 mg PO BID and spironolactone 100 mg PO daily - paracentesis as needed for respiratory function Liver transplant candidate 08/17/2015 0 04/22/2017 Pain disorder with psychological factors 08/06/2015 12/23/2021 Chronic abdominal pain 07/20/201510/21 Hyperammonemia 07/20/2015 04/22/2017 SUMMARY 06/14/2015 09/12/2015 Overview: Mr. 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 SOB (shortness of breath) 06/14/2015 Overview: Started after dry run Possibly irritated by catheter? Systolic murmur also heard Chest x-ray and CT PE negative Currently at baseline New valvular lesion vs clot? -Echocardiogram -Doppler study -Observe for now Hepatic cirrhosis 06/14/2015 04/22/2017 Overview: #Cirrhosis -Continue lactulose, rifaximin -Continue aldactone Infection of other external stoma of urinary tract 05/17/2015 04/22/2017 UTI (lower urinary tract infection) 04/08/2015 04/22/2017 Overview: Was complaining of dysuria. UA positive with leukoesterase and Was started of ceftriaxone at OSH. Received 2 dosages here yesterday and one today. Will finish treatment for complicated UTI at home with cipro 500BID Hepatic encephalopathy 04/08/201504/22 Overview: On lactulose zinc Rifaximin Fever, low grade 11/03/2014 04/22/2017 Overview: Low grade fever on presentation UA clean Plan - Blood cx ngtd - afebrile since SUMMARY 08/31/2014 07/24/2016 Overview: The patient is a 50 yo male with a past medical history of HCV/ETOH Liver Cirrhosis c/b hepatopulmonary syndrome, hypersplenism, HE, Grade I EV, pulmonary sarcoidosis who presents with acute weight gain, abdominal distension, and SOB Fever and chills 08/31/2014 04/22/2017 Overview: Tmax 38.7 this AM; pt reports recent history of tooth extraction One time fever yesterday Received 2 time cefazolin after PFO closure. Plan: -UA, BCxx2 - NG till now -will hold off on abx for now and observe Retained dental root 08/15/2014 022 Hepatopulmonary syndrome 03/12/201402/2018 Overview: History of hepatopulmonary syndrome with ~45.2% shunt, pulmonary sarcoidosis requiring home O2 6-10 liters and mild pulmonary HTN Preop PaO2 ~55 on RA Profound hypoxia postoperatively requiring max vent support with high PEEP, heavy sedation/paralytics, flolan, nitric oxide (off since 10/26) Course c/b Right lung Pneumothorax, resp failure requiring trach 11/01 Decompensation 11/04 secondary to narcotic withdrawal +/- sepsis-->Drastically improved with fentanyl infusion, ATB. Updated echo 11/15 with EF 55%, normal RV Currently doing great, on continuous trach collar with passy etta valve, and diet -- Goal sats 85% -- Continue TC, PMV, OOB Bicytopenia 03/12/2014 04/22/2017 Overview: He has plat count of 20k and WCC of around 1000 His neutropenia is likely 2/2 to INF His thrombocytopenia is likley 2/2 to his cirrhosis Plan: Watch, transfuse plats if <10k or bleeding Pancytopenia 03/11/2014 03/12/2014 Hypoxemia 03/11/2014 10/15/2015 Overview: Due to underlying HPS Now on 100% Fio2 with last PaO2 60, Nitric oxide started 10/08, at 40 PPM. O2 sats maintaining in 80s CTS consulted for ECMO evaluation -- Given profound thrombocytopenia and grave condition ECMO not recommended -- Continue nitric oxide -- lung protective ventilation -- increased I:E ratio (at 2.4:1), paralyze with rocuronium if needed -- goal of O2 sats in 70s permissible COPD (chronic obstructive pulmonary disease) 4 03/12/2014 Coagulopathy 03/11/2014 04/22/2017 Syncope 01/03/2014 04/22/2017 Epididymitis 11/24/2013 04/22/2017 Testalgia 11/24/2013 04/22/2017 Thrombocytopenia 08/20/2009 04/22/2017 Overview: Platelets 96k today, received platelets 10/11 prior to liver biopsy. no obvious bleeding -- monitor CBC, coags -- transfuse as required -- monitor for bleeding -- transfuse plts prior to invasive procedures Hepatitis C 08/20/2009 11/03/2014 Cirrhosis 04/22/2017 Overview: Secondary to alcohol use and HCV complicated by ascites, PSE (on lactulose, rifaximin) and hepatopulmonary syndrome on home O2 s/p OLT on 10/03/15 Concern for rejection (humoral), now s/p thymo, IVIG, plasmapheresis 10/15 and 10/16 completed -hydrocortisone (switched from prednisone) now tapering down - MMF - FK documented as of this encounter (statuses as of 01/01/2024) [facility]06-[facility] Miscellaneous Notes* Telephone Encounter - Jesse Finney LPN - 03/07/2022 10:56 AM EDT Pt notified. Appt scheduled. Jesse Finney LPN * Telephone Encounter - Aylin Matute LPN - 03/06/2022 3:17 PM EDT Unable reach patient to schedule, left message to return call to schedule a 4 week follow up. Mychart message sent as well. * Telephone Encounter - Catrina Monroe LPN - 03/06/2022 12:01 PM EDT Patient stops in after visit with Dr Matute. Asking to get back on wellbutrin. Advised him that we can send to pharmacy and then he needs to follow up in 4 weeks after starting. Patient agreeable to plan. Please send to [facility]. documented in this encounterUniversity Hospitals [facility]06-20-2022 Miscellaneous Notes* Telephone Encounter - Nina Cabral LPN - 03/03/2022 4:21 PM EDT Pt returned the call & was notified of response. Pt states understanding. Nina Cabral LPN * Telephone Encounter - Catrina Monroe LPN - 03/03/2022 3:03 PM EDT Left message to call office. * Telephone Encounter - Giancarlo Kendall MD - 03/03/2022 2:44 PM EDT I would think they would be much more concerned with his transplant status. Stay on meds. * Telephone Encounter - Katie Muse LPN - 03/03/2022 1:55 PM EDT Pt calls to report he has a chance of getting a new job at a [employer] plant but they frown upon high bp. Pt reports he is currently taking lisinopril 5 mg daily and his bp's have been running good. Pt is asking if he can stop taking bp med and monitor his bp and if it would start going up to then call the office back. Please review and advise. Katie Muse LPN documented in this encounterUniversity Hospitals Tripoint [facility] Center06-15-2022 Instructions* Patient Instructions* Saida Lowery APRN.SEBASTIÁN - 02/26/2022 12:10 PM EDT 1. Get the xray of the back. 2. Reschedule w/ physical therapy. documented in this encounterUniversity Hospitals Tripoint [facility] Center06-15-2022 History of Present illness Narrative* Saida Lowery APRN.CNP - 02/26/2022 11:49 AM EDT This is a 57 year old male who presents today with: Patient presents with: Back Pain: mid back; dull, constant x 1 week Left Hip Pain HISTORY OF PRESENT ILLNESS: Troy Carlson is a 57 year old male. Patient presents with: Back Pain: mid back; dull, constant x 1 week Left Hip Pain Pt presents today with complaint of back pain. Working at [employer]. Refers that he would like a note to excuse him from going in the direct sun at work. Some lower thoracic back pain. Refers that his back is crooked. No injury. Aches. Not taking anything for the discomfort. Doesn't want to take any additional medications. Signed up for physical therapy -- was scheduled, but unable to go d/t pain. Going to get rescheduled. Does use medical marijuana. He had called in yesterday requesting urine testing. He reports that he didn't feel like he was urinating as much as he should. No dysuria, urgency, frequency, urgency. PAST MEDICAL HISTORY: PAST MEDICAL HISTORY Diagnosis Date BPH with obstruction/lower urinary tract symptoms Cirrhosis (HCC) ETOH abuse stopped etoh in 09/27 H/O liver transplant (HCC) 10/03/2015 Hepatitis C Hepatopulmonary syndrome (HCC) used oxygen 3 to 6 liters and off O2 since liver transplant Hypertension Marijuana use, continuous 12/28/2020 MRSA (methicillin resistant Staphylococcus aureus) 11/2011 New onset seizure (HCC) 10/05/2015 06/11/[address] Anurag Doyle:noted one seizure after transplant. No seizures since, off keppra.Initial EEG showed small amplitudes polyspikes overriding periodic patterns), later EEG became normal, brain MRI unremarkable. He has been off Keppra since March 2016. No further seizure. Non-ischemic cardiomyopathy (HCC) Osteoporosis Panic attacks Prostatitis 11/2011 Psoriasis PTSD (post-traumatic stress disorder) Sarcoidosis of the lungs Splenomegaly Thrombocytopenia (HCC) Pancytopenia resolved after liver transplant Unspecified hypothyroidism Hypothyroidism PAST SURGICAL HISTORY Procedure Laterality Date COLONOSCOPY FLX DX W/COLLJ SPEC WHEN PFRMD 10/14/13 Colonoscopy ESOPHAGOGASTRODUODENOSCOPY TRANSORAL DIAGNOSTIC 10/14/13 EGD ESOPHAGOGASTRODUODENOSCOPY TRANSORAL DIAGNOSTIC 01/31/2019 EGD INGUINAL HERNIA REPAIR HX 10/15/2016 LIVER BIOPSY NERVE ALTERATION 83? LEFT ELBOW ABOUT PAST SURGICAL HISTORY OF 83? Deviated septum PAST SURGICAL HISTORY OF Liver transplant : 09/2015 PAST SURGICAL HISTORY OF PFO repair 2015 PICC LINE INSERT/CONSULT 11/01/2015 PICC LINE INSERTION (PICC TEAM) ([place]) 11/22/2021 TONSILLECTOMY PRIMARY/SECONDARY <AGE 10 Tonsillectomy ALLERGIES Acetaminophen, Hydrocodone, Morphine, Latex, Ketorolac, Vancomycin (Bulk), and Vicodin [Hydrocodone-Acetaminophen] MEDICATIONS Current Outpatient Medications Medication Sig simvastatin (ZOCOR) 40 mg tablet Take 1 tablet by mouth daily at bedtime. pantoprazole DR (PROTONIX) 40 mg tablet Take 1 tablet by mouth daily before breakfast. Take on empty stomach, 1/2 hr before meal. lisinopril (ZESTRIL, PRINIVIL) 5 mg tablet Take 1 tablet by mouth once daily. metoprolol succinate ER (TOPROL XL) 25 mg 24 hr tablet Take 1 tablet by mouth once daily. alendronate (FOSAMAX) 70 mg tablet Take 1 tablet by mouth one time a week. Take with a full glass of water, on an empty stomach; do NOT lie down for 30minutes. On sundays sulfamethoxazole-trimethoprim (BACTRIM DS,SEPTRA DS) 800-160 mg per tablet 1 tablet every Thursday,Thursday,Thursday. sulfamethoxazole-trimethoprim (BACTRIM DS,SEPTRA DS) 800-160 mg per tablet Smz/Tmp Ds Active 1 TABLET January 24, 2016 11:18am tacrolimus IR (PROGRAF) 0.5 mg capsule Take 1 capsule (0.5 mg) by mouth twice daily. Take with 1mg capsule for total 1.5mg twice daily tacrolimus IR (PROGRAF) 1 mg capsule Take 1 capsule (1mg) by mouth twice daily. Take in addition toone 0.5mg capsule for total dose of 1.5mg twice daily cholecalciferol (VITAMIN D-3) 5,000 unit tab Take 1 tablet by mouth once daily. (Patient taking differently: Take 2,500 Units by mouth once daily. ) Garlic 1,000 mg cap Take 1 capsule by mouth once daily. ursodiol (ACTIGALL) 300 mg capsule Take 1 capsule by mouth three times daily. (Patient taking differently: Take 300 mg by mouth three times daily. Not sure if still taking ) Current Facility-Administered Medications Medication Dose Route Frequency perflutren lipid microspheres 1.3 mL in NaCl (PF) 0.9% 10 mL injection (DEFINITY) INTRAVENOUS DIRECTED PRN sodium chloride 0.9 % (flush) 10 mL (BD POSIFLUSH) 10 mL INTRAVENOUS DIRECTED PRN FAMILY HISTORY Problem Relation Age of Onset Arthritis Brother Back issues COPD Mother Alzheimer's Disease Father Diabetes Maternal Grandmother Diabetes Paternal Grandfather Amblyopia Daughter Social History Tobacco Use Smoking status: Former Smoker Packs/day: 1.00 Years: 23.00 Pack years: 23.00 Types: Cigarettes Start date: 09/14/1979 Quit date: 08/01/2013 Years since quittin.5 Smokeless tobacco: Never Used Vaping Use Vaping Use: Never used Substance Use Topics Alcohol use: No Alcohol/week: 0.0 standard drinks Comment: Quit 10/2011 Drug use: Yes Types: Marijuana Comment: now only marijuana to help with appetite and slee[ EXAM: BP 132/80 Pulse 70 Resp 18 SpO2 97% PHYSICAL EXAM: General Appearance: Well appearing, alert, in no acute distress, well-hydrated, well nourished.. Skin: Skin color, texture, turgor normal, no suspicious rashes or lesions. Head: Normocephalic, no masses, lesions, tenderness or abnormalities. Eyes: Anicteric sclera. Pupils are equally round and reactive to light. Extraocular movements are intact. . Back:no pain to palpation of vertebrae, good flexion and extension, good range of motion, no muscletenderness, motor and sensory appear to be normal, + asymmetry of the shoulders/shoulder blades. Lungs: Lungs clear to auscultation. No wheezing, rhonchi, rales.. Heart: RRR without murmur, gallop, or rubs. No ectopy. Neurologic: Gait normal. ASSESSMENT/PLAN: 1. Midline thoracic back pain, unspecified chronicity - ICD9: 724.1, ICD10: M54.6 Thoracic back pain. Does have some asymmetry of landmarks. ? Scoliosis. Encouraged to reschedule with physical therapy. - XR THORACIC GENERAL 3V AP/LAT/SWIMMERS Discussed treatment plan and patient voices understanding. Patient's questions answered appropriately. Medications and potential side effects were discussed and patient voices understanding. Return to the office as scheduled or as needed for worsening/no improvement. Saida Lowery APRN.CNP documented in this encounterUniversity Hospitals [facility]06-14-2022 Miscellaneous Notes* Telephone Encounter - Katie Muse LPN - 02/25/2022 11:46 AM EDT Pt notified of order. Katie Muse LPN * Telephone Encounter - Cely Morales Ma - 02/25/2022 11:06 AM EDT Left message for patient to return call. Cely Morales Ma * Telephone Encounter - Saida Lowery APRN.CNP - 02/25/2022 10:35 AM EDT Orders placed. Looks like kidney function on his 02/14/22 labs were normal. Saida Lowery APRN.CNP * Telephone Encounter - Jennifer Mathew RN - 02/25/2022 9:28 AM EDT Patient calls to ask if order for urinalysis could be placed prior to appointment tomorrow with provider. Patient reports back pain but midline. Urinary frequency and urgency. Afebrile Order pended for review. Patient also asking if tacrolimus could be affecting his kidneys (patient notified transplant team manages per Dr. Kendall). Jennifer Matehw RN documented in this encounterUniversity Hospitals [facility]06-08-2022 Miscellaneous Notes* Telephone Encounter - Elissa Parrish APRN.CNP - 02/19/2022 3:23 PM EDT The following approved medication requests have been transmitted electronically. Pending Prescriptions Disp Refills SIMVASTATIN 40 MG TABLET 90 tablet 3 Sig: Take 1 tablet by mouth daily at bedtime. ARI: No PANTOPRAZOLE 40 MG TABLET,DELAYED RELEASE 90 tablet 3 Sig: Take 1 tablet by mouth daily before breakfast. Take on empty stomach, 1/2 hr before meal. ARI: No LISINOPRIL 5 MG TABLET 90 tablet 3 Sig: Take 1 tablet by mouth once daily. ARI: No METOPROLOL SUCCINATE ER 25 MG TABLET,EXTENDED RELEASE 24 HR 90 tablet 3 Sig: Take 1 tablet by mouth once daily. ARI: No Elissa Parrish APRN.SEBASTIÁN * Telephone Encounter - Flor Galaviz LPN - 02/19/2022 2:43 PM EDT Patient has been identified by name and date of : Yes Pharmacy phones for refill(s): Pending Prescriptions Disp Refills SIMVASTATIN 40 MG TABLET 90 tablet 3 Sig: Take 1 tablet by mouth daily at bedtime. ARI: No PANTOPRAZOLE 40 MG TABLET,DELAYED RELEASE 90 tablet 3 Sig: Take 1 tablet by mouth daily before breakfast. Take on empty stomach, 1/2 hr before meal. ARI: No LISINOPRIL 5 MG TABLET 90 tablet 3 Sig: Take 1 tablet by mouth once daily. ARI: No METOPROLOL SUCCINATE ER 25 MG TABLET,EXTENDED RELEASE 24 HR 90 tablet 3 Sig: Take 1 tablet by mouth once daily. ARI: No Date of last office visit in primary care: 02/06/22 Last 2 Encounter Wt Readings: Date: Wt: 02/06/2022 65.8 kg (145 lb) 01/08/2022 70.3 kg (155 lb) Previous labs/tests for medication: Cholesterol: HDL Cholesterol (mg/dL) Date Value 01/08/2022 46 08/16/2021 42 LDL Cholesterol (mg/dL) Date Value 01/08/2022 44 08/16/2021 98 ALT (U/L) Date Value 02/14/2022 26 08/16/2021 14 Non HDL Cholesterol (mg/dL) Date Value 01/08/2022 59 08/16/2021 123 Blood Pressure: BUN (mg/dL) Date Value 02/14/2022 23 08/16/2021 18 Sodium (mmol/L) Date Value 02/14/2022 136 08/16/2021 140 Last 1 Encounter BP Readings: Date: BP: 02/06/2022 118/62 Please advise. Thank you. Flor Galaviz LPN documented in this encounterUniversity Hospitals [facility]06-02-2022 Miscellaneous Notes* Telephone Encounter - Nadiya Guadalupe RN - 02/13/2022 3:01 PM EDT Patient has been identified by name and date of : Yes Pharmacy phones for refill(s): Pending Prescriptions Disp Refills SULFAMETHOXAZOLE 800 MG-TRIMETHOPRIM 160 MG TABLET Sig: Smz/Tmp Ds Active 1 TABLET MOWEFR ARI: No ALENDRONATE 70 MG TABLET 12 tablet 3 Sig: Take 1 tablet by mouth one time a week. Take with a full glass of water, on an empty stomach; do NOT lie down for 30minutes. ARI: No Date of last office visit in primary care: 10/02/21 Future Visit: none Last 2 Encounter Wt Readings: Date: Wt: 02/06/2022 65.8 kg (145 lb) 01/08/2022 70.3 kg (155 lb) Previous labs/tests for medication: Blood Pressure: BUN (mg/dL) Date Value 01/08/2022 14 01/08/2022 14 08/16/2021 18 Sodium (mmol/L) Date Value 01/08/2022 142 01/08/2022 141 08/16/2021 140 Last 1 Encounter BP Readings: Date: BP: 02/06/2022 118/62 Liver Function: ALT (U/L) Date Value 01/08/2022 22 01/08/2022 23 08/16/2021 14 AST (U/L) Date Value 01/08/2022 21 01/08/2022 24 08/16/2021 17 Please advise. Thank you. Nadiya Guadalupe RN documented in this encounterUniversity Hospitals [facility]05-26-2022 History of Present illness Narrative* Giancarlo Kendall MD - 02/06/2022 4:10 PM EDT Patient presents with: Follow Up Neck Pain HPI: Patient presents today for office visit for recheck. Has pain in his back and neck. Moved a pool table recently. Neck does bother him when he turns his neck. His right arm will bother him from time to time when waking up. Emotionally does not want to get back on psych meds. He is going to try and work his marriage out. He feels like his memory is improving. He really wants his neck looked at. No current gi issues. His urine seems to be ok, MEDICATIONS: Current Outpatient Medications Medication Sig sulfamethoxazole-trimethoprim (BACTRIM DS,SEPTRA DS) 800-160 mg per tablet Smz/Tmp Ds Active 1 TABLET WEJanuary 24, 2016 11:18am tacrolimus IR (PROGRAF) 0.5 mg capsule Take 1 capsule (0.5 mg) by mouth twice daily. Take with 1mg capsule for total 1.5mg twice daily tacrolimus IR (PROGRAF) 1 mg capsule Take 1 capsule (1mg) by mouth twice daily. Take in addition toone 0.5mg capsule for total dose of 1.5mg twice daily simvastatin (ZOCOR) 40 mg tablet Take 1 tablet by mouth daily at bedtime. metoprolol succinate ER (TOPROL XL) 25 mg 24 hr tablet Take 1 tablet by mouth once daily. alendronate (FOSAMAX) 70 mg tablet Take 1 tablet by mouth one time a week. Take with a full glass of water, on an empty stomach; do NOT lie down for 30minutes. (Patient taking differently: Take 70 mgby mouth one time a week. Take with a full glass of water, on an empty stomach; do NOT lie down [id number]. On sundays ) lisinopril (ZESTRIL, PRINIVIL) 5 mg tablet Take 1 tablet by mouth once daily. cholecalciferol (VITAMIN D-3) 5,000 unit tab Take 1 tablet by mouth once daily. (Patient taking differently: Take 2,500 Units by mouth once daily. ) ursodiol (ACTIGALL) 300 mg capsule Take 1 capsule by mouth three times daily. (Patient taking differently: Take 300 mg by mouth three times daily. Not sure if still taking ) pantoprazole DR (PROTONIX) 40 mg tablet Take 1 tablet by mouth daily before breakfast. Take on empty stomach, 1/2 hr before meal. (Patient taking differently: Take 40 mg by mouth daily before breakfast. Take on empty stomach, 1/2 hr before meal. Taking as needed. ) Garlic 1,000 mg cap Take 1 capsule by mouth once daily. Current Facility-Administered Medications Medication Dose Route Frequency perflutren lipid microspheres 1.3 mL in NaCl (PF) 0.9% 10 mL injection (DEFINITY) INTRAVENOUS DIRECTED PRN sodium chloride 0.9 % (flush) 10 mL (BD POSIFLUSH) 10 mL INTRAVENOUS DIRECTED PRN ALLERGIES: ALLERGIES Allergen Reactions Acetaminophen Hives Hydrocodone Hives Morphine Hives, Other: See Comments Latex Rash Ketorolac Unknown Pt states allergy, told not to take with liver transplant Vancomycin (Bulk) Rash, Itching Vicodin [Hydrocodon* Itching PAST MEDICAL HISTORY Diagnosis Date BPH with obstruction/lower urinary tract symptoms Cirrhosis (HCC) ETOH abuse stopped etoh in 09/27 H/O liver transplant (HCC) 10/03/2015 Hepatitis C Hepatopulmonary syndrome (HCC) used oxygen 3 to 6 liters and off O2 since liver transplant Hypertension Marijuana use, continuous 12/28/2020 MRSA (methicillin resistant Staphylococcus aureus) 11/2011 New onset seizure (HCC) 10/05/2015 06/11/[address] Anurag Doyle:noted one seizure after transplant. No seizures since, off keppra.Initial EEG showed small amplitudes polyspikes overriding periodic patterns), later EEG became normal, brain MRI unremarkable. He has been off Keppra since March 2016. No further seizure. Non-ischemic cardiomyopathy (HCC) Osteoporosis Panic attacks Prostatitis 11/2011 Psoriasis PTSD (post-traumatic stress disorder) Sarcoidosis of the lungs Splenomegaly Thrombocytopenia (HCC) Pancytopenia resolved after liver transplant Unspecified hypothyroidism Hypothyroidism PAST SURGICAL HISTORY Procedure Laterality Date COLONOSCOPY FLX DX W/COLLJ SPEC WHEN PFRMD 10/14/13 Colonoscopy ESOPHAGOGASTRODUODENOSCOPY TRANSORAL DIAGNOSTIC 10/14/13 EGD ESOPHAGOGASTRODUODENOSCOPY TRANSORAL DIAGNOSTIC 01/31/2019 EGD INGUINAL HERNIA REPAIR HX 10/15/2016 LIVER BIOPSY NERVE ALTERATION 83? LEFT ELBOW ABOUT PAST SURGICAL HISTORY OF 83? Deviated septum PAST SURGICAL HISTORY OF Liver transplant : 09/2015 PAST SURGICAL HISTORY OF PFO repair 2016 PICC LINE INSERT/CONSULT 11/01/2015 PICC LINE INSERTION (PICC TEAM) ([place]) 11/22/2021 TONSILLECTOMY PRIMARY/SECONDARY <AGE 10 Tonsillectomy FAMILY HISTORY Problem Relation Age of Onset Arthritis Brother Back issues COPD Mother Alzheimer's Disease Father Diabetes Maternal Grandmother Diabetes Paternal Grandfather Amblyopia Daughter Social History Tobacco Use Smoking status: Former Smoker Packs/day: 1.00 Years: 23.00 Pack years: 23.00 Types: Cigarettes Start date: 09/14/1979 Quit date: 08/01/2013 Years since quittin.5 Smokeless tobacco: Never Used Vaping Use Vaping Use: Never used Substance Use Topics Alcohol use: No Alcohol/week: 0.0 standard drinks Comment: Quit 10/2011 Drug use: Yes Types: Marijuana Comment: now only marijuana to help with appetite and slee[ Reviewed current medications, allergies, past medical history, surgical history, family history andsocial history today. REVIEW OF SYSTEMS All other reviewed and negative other than HPI. VITALS: BP 118/62 Pulse 60 Wt 65.8 kg (145 lb) BMI 22.71 kg/m Last 4 Encounter Wt Readings: Date: Wt: 02/06/2022 65.8 kg (145 lb) 01/08/2022 70.3 kg (155 lb) 01/06/2022 69.1 kg (152 lb 6.4 oz) 12/23/2021 69.9 kg (154 lb) PHYSICAL EXAMINATION: General appearance: Well appearing, alert, in no acute distress, well-hydrated, well nourished. Skin: Skin color, texture, turgor normal, no suspicious rashes or lesions Head: Normocephalic, no masses, lesions, tenderness or abnormalities Neck: supple, tender over base of neck.no massed Extremities: No deformities, edema, skin discoloration, clubbing or cyanosis. Good capillary refill. Musculoskeletal: No joint swelling, deformity, or tenderness Peripheral pulses: Normal Neuro: Gait normal. Reflexes normal and symmetric. Sensation grossly intact. ASSESSMENT/PLAN: 1. Neck pain - ICD9: 723.1, ICD10: M54.2 (primary diagnosis) - Get xrays and consider therapy. - XR CERV OTHER 4V AP/LAT/OBL - CONSULT TO PHYSICAL THERAPY 2. Paroxysmal atrial fibrillation (HCC) - ICD9: 427.31, ICD10: I48.0 - stable 3. Essential hypertension - ICD9: 401.9, ICD10: I10 - good control - Continue current medication(s) - Goal of BP <130/80 4. S/P liver transplant (HCC) - ICD9: V42.7, ICD10: Z94.4 Giancarlo Kendall documented in this encounterUniversity Hospitals [facility] Center05-17-2022 Miscellaneous Notes* Telephone Encounter - Zulma Way LPN - 2022 2:04 PM EDT Spoke with JD Bowers- states that if patient is seeing a urologist no need to follow up with him but if not patient needs to schedule appointment. Spoke with patient who reports appointment with Dr. Kendall but no urologist. Appointment scheduled for February 11, 2022, patient verbalizes understanding. Zulma Way LPN * Telephone Encounter - Sujata Torres Pss - 2022 11:35 AM EDT Patient came into office today asking that his 3:20 with Ash Dasilva be canceled due to car trouble. He states that he is having no issues since his surgery and would like to know if he needs to reschedule this appointment. Patient is seeing Dr Kendall on 02/06. Please advise and call patient at [phone] (home). Thank you, Sujata Torres Pss documented in this encounterUniversity Hospitals [facility] Center05-04-2022 Miscellaneous Notes* Telephone Encounter - Betsey Pacheco MA - 01/15/2022 2:31 PM EDT Patient notified. * Telephone Encounter - Giancarlo Kendall MD - 01/15/2022 1:37 PM EDT He could certainly apply for it. That final decision is not up to me. He has to go through social security for it. * Telephone Encounter - Yuliana Velázquez LPN - 01/15/2022 1:21 PM EDT Patient calling asking if he should be on disability or not? He does not think he can work any longer. He said he has not been collecting disability, his makes to much money. Please advise documented in this encounterUniversity Hospitals [facility] Center04-29-2022 Miscellaneous Notes* Telephone Encounter - Catrina Monroe LPN - 01/10/2022 12:53 PM EDT Patient notified and verbalizes understanding. * Telephone Encounter - Giancarlo Kendall MD - 01/10/2022 12:39 PM EDT Mri is ok. No significant findings. Can take 1000 units of vit d.I would not make any other changes. Calcium is just borderline high. Recheck ionized calcium in eight weeks * Telephone Encounter - Jennifer Mathew RN - 01/10/2022 12:31 PM EDT Patient calls and provider message below given. Patient verbalizes understanding and reports he hadn't started Keflex at this time. Patient asking provider to review blood work and MRI results and advise. Reviewed note from [facility]. Patient asking how much Vitamin D he should be taking. Currently taking 5000 units daily and feels that it is too much d/t level being high side of normal. Patient not taking magnesium and potassium and wants to make sure this is ok? Patient asking if there is anything showing up on the MRI that could be contributing to his memory loss as he is concerned about dementia. Please review and advise, Jennifer Mathew RN * Telephone Encounter - Giancarlo Kendall MD - 01/10/2022 7:57 AM EDT Let him know his urine did not show a uti. Stop the keflex. Keep follow up with urology as we discussed. documented in this encounterUniversity Hospitals [facility] Center04-28-2022 History of Present illness Narrative* Cely Alvarez, RT(R) - 01/09/2022 2:20 PM EDT Radiology Service Progress Note PATIENT NAME: Troy Carlson DATE OF SERVICE: January 09, 2022 TIME: 2:41 PM PATIENT IDENTITY VERIFICATION COMPLETED USING TWO (2) IDENTIFIERS: Name and Date of confirmedby patient verbally. FALL SCREENING: Has the patient had 2 falls in the last year or 1 fall with injury or currently using an Ambulatory Assistive Device (Walker, Cane, Wheelchair, Crutches, etc.)? No PATIENT GENDER DATA: Male PATIENT RELEVANT IMPLANT DATA REVIEWED: Yes RADIOLOGY DEPARTMENT: MR; Exam(s) Completed: Head: Routine Brain PERIPHERAL IV DATA: Not applicable SIGNED BY: RT Mandi(R) January 09, 2022 2:41 PM documented in this encounterUniversity Hospitals [facility]point [facility] Center04-27-2022 History of Present illness Narrative* Giancarlo Kendall MD - 01/08/2022 2:56 PM EDT Patient presents with: Flank Pain: left HPI: Patient presents today for office visit for acute visit. He feels like his urine is flowing well since surgery. But has some dysuria starting this am. No fever or chills. Had some mild back pain this am. But is now better. No hematuria. No nausea or vomiting. He missed his follow up with Ash Dasilva. He is thinking about moving. He is getting a divorce. Had taken himself off of his antidepressants. He feels he is emotionally doing ok. Has mri of his brain in am. His weight is stable. Component Latest Ref Rng & Units 01/08/2022 GLUCOSE UA (POCT) Negative mg/dL Negative BILIRUBIN UA (POCT) Negative Negative KETONE UA (POCT) Negative mg/dL Negative SPECIFIC GRAVITY UA (POCT) 1.005 - 1.030 >=1.030 HEMOGLOBIN/BLOOD UA (POCT) Negative Moderate (A) PH UA (POCT) 4.5 - 8.0 6.5 PROTEIN UA (POCT) Negative mg/dL 100 (A) UROBILINOGEN UA (POCT) Normal E.U./dL 0.2 NITRITE UA (POCT) Negative Negative LEUKOCYTES UA (POCT) Negative Moderate (A) COLOR UA (POCT) Other CLARITY UA (POCT) Slightly Cloudy Reminded he has pending labs be done. MEDICATIONS: Current Outpatient Medications Medication Sig sulfamethoxazole-trimethoprim (BACTRIM DS,SEPTRA DS) 800-160 mg per tablet Smz/Tmp Ds Active 1 TABLET MOWEFR January 24, 2016 11:18am tacrolimus IR (PROGRAF) 0.5 mg capsule Take 1 capsule (0.5 mg) by mouth twice daily. Take with 1mg capsule for total 1.5mg twice daily tacrolimus IR (PROGRAF) 1 mg capsule Take 1 capsule (1mg) by mouth twice daily. Take in addition toone 0.5mg capsule for total dose of 1.5mg twice daily pantoprazole DR (PROTONIX) 40 mg tablet Take 1 tablet by mouth daily before breakfast. Take on empty stomach, 1/2 hr before meal. simvastatin (ZOCOR) 40 mg tablet Take 1 tablet by mouth daily at bedtime. metoprolol succinate ER (TOPROL XL) 25 mg 24 hr tablet Take 1 tablet by mouth once daily. lisinopril (ZESTRIL, PRINIVIL) 5 mg tablet Take 1 tablet by mouth once daily. cholecalciferol (VITAMIN D-3) 5,000 unit tab Take 1 tablet by mouth once daily. alendronate (FOSAMAX) 70 mg tablet Take 1 tablet by mouth one time a week. Take with a full glass of water, on an empty stomach; do NOT lie down for 30minutes. (Patient taking differently: Take 70 mgby mouth one time a week. Take with a full glass of water, on an empty stomach; do NOT lie down [id number]. On sundays ) Garlic 1,000 mg cap Take 1 capsule by mouth once daily. ursodiol (ACTIGALL) 300 mg capsule Take 1 capsule by mouth three times daily. (Patient taking differently: Take 300 mg by mouth three times daily. Not sure if still taking ) Current Facility-Administered Medications Medication Dose Route Frequency perflutren lipid microspheres 1.3 mL in NaCl (PF) 0.9% 10 mL injection (DEFINITY) INTRAVENOUS DIRECTED PRN sodium chloride 0.9 % (flush) 10 mL (BD POSIFLUSH) 10 mL INTRAVENOUS DIRECTED PRN ALLERGIES: ALLERGIES Allergen Reactions Acetaminophen Hives Hydrocodone Hives Morphine Hives, Other: See Comments Latex Rash Ketorolac Unknown Pt states allergy, told not to take with liver transplant Vancomycin (Bulk) Rash, Itching Vicodin [Hydrocodon* Itching PAST MEDICAL HISTORY Diagnosis Date BPH with obstruction/lower urinary tract symptoms Cirrhosis (HCC) ETOH abuse stopped etoh in / H/O liver transplant (HCC) 10/03/2015 Hepatitis C Hepatopulmonary syndrome (HCC) used oxygen 3 to 6 liters and off O2 since liver transplant Hypertension Marijuana use, continuous 12/28/2020 MRSA (methicillin resistant Staphylococcus aureus) 11/2011 New onset seizure (HCC) 10/05/2015 06/11/[address] Anurag Doyle:noted one seizure after transplant. No seizures since, off keppra.Initial EEG showed small amplitudes polyspikes overriding periodic patterns), later EEG became normal, brain MRI unremarkable. He has been off Keppra since March 2016. No further seizure. Non-ischemic cardiomyopathy (HCC) Osteoporosis Panic attacks Prostatitis 11/2011 Psoriasis PTSD (post-traumatic stress disorder) Sarcoidosis of the lungs Splenomegaly Thrombocytopenia (HCC) Pancytopenia resolved after liver transplant Unspecified hypothyroidism Hypothyroidism PAST SURGICAL HISTORY Procedure Laterality Date COLONOSCOPY FLX DX W/COLLJ SPEC WHEN PFRMD 10/14/13 Colonoscopy ESOPHAGOGASTRODUODENOSCOPY TRANSORAL DIAGNOSTIC 10/14/13 EGD ESOPHAGOGASTRODUODENOSCOPY TRANSORAL DIAGNOSTIC 01/31/2019 EGD INGUINAL HERNIA REPAIR HX 10/15/2016 LIVER BIOPSY NERVE ALTERATION 83? LEFT ELBOW ABOUT PAST SURGICAL HISTORY OF 83? Deviated septum PAST SURGICAL HISTORY OF Liver transplant : 09/2015 PAST SURGICAL HISTORY OF PFO repair 2016 PICC LINE INSERT/CONSULT 11/01/2015 PICC LINE INSERTION (PICC TEAM) ([place]) 11/22/2021 TONSILLECTOMY PRIMARY/SECONDARY <AGE 10 Tonsillectomy FAMILY HISTORY Problem Relation Age of Onset Arthritis Brother Back issues COPD Mother Alzheimer's Disease Father Diabetes Maternal Grandmother Diabetes Paternal Grandfather Amblyopia Daughter Social History Tobacco Use Smoking status: Former Smoker Packs/day: 1.00 Years: 23.00 Pack years: 23.00 Types: Cigarettes Start date: 09/14/1979 Quit date: 08/01/2013 Years since quittin.4 Smokeless tobacco: Never Used Vaping Use Vaping Use: Never used Substance Use Topics Alcohol use: No Alcohol/week: 0.0 standard drinks Comment: Quit 10/2011 Drug use: Yes Types: Marijuana Comment: now only marijuana to help with appetite and slee[ Reviewed current medications, allergies, past medical history, surgical history, family history andsocial history today. REVIEW OF SYSTEMS All other reviewed and negative other than HPI. VITALS: BP 132/72 Pulse 72 Wt 70.3 kg (155 lb) BMI 24.28 kg/m Last 4 Encounter Wt Readings: Date: Wt: 01/08/2022 70.3 kg (155 lb) 01/06/2022 69.1 kg (152 lb 6.4 oz) 12/23/2021 69.9 kg (154 lb) 11/07/2021 68.9 kg (152 lb) PHYSICAL EXAMINATION: General appearance: Well appearing, alert, in no acute distress, well-hydrated, well nourished. Skin: Skin color, texture, turgor normal, no suspicious rashes or lesions Head: Normocephalic, no masses, lesions, tenderness or abnormalities Lungs: Lungs clear to auscultation. No wheezing, rhonchi, rales Heart: RRR without murmur, gallop, or rubs. No ectopy Abdomen: Normal abdominal exam, Abdomen soft, non-tender. Bowel sounds normal. No masses, organomegaly Extremities: No deformities, edema, skin discoloration, clubbing or cyanosis. Good capillary refill. Musculoskeletal: No joint swelling, deformity, or tenderness ASSESSMENT/PLAN: 1. Flank pain - ICD9: 789.09, ICD10: R10.9 (primary diagnosis) - Add keflex. See urology in follow up. Red flags for re-assessment reviewed with patient in detail. - UA DIP, URINE (POC) - CEPHALEXIN 250 MG CAPSULE 2. Pyuria - ICD9: 791.9, ICD10: R82.81 - URINE CULTURE - CEPHALEXIN 250 MG CAPSULE 3. Microscopic hematuria - ICD9: 599.72, ICD10: R31.29 - URINE CULTURE 4. Essential hypertension - ICD9: 401.9, ICD10: I10 - good control - Continue current medication(s) - Goal of BP <130/80 - CONSULT TO UROLOGY Giancarlo Kendall documented in this encounterUniversity Hospitals [facility]04-27-2022 Miscellaneous Notes* Telephone Encounter - Yuliana Velázquez LPN - 01/08/2022 10:26 AM EDT Patient returned call and went over notes below from Dr Kendall with understanding. He will schedule appt when in the office later today with maintenance scheduler. * Telephone Encounter - Rex Mcneal - 01/07/2022 8:20 AM EDT Unable to reach patient. Left VM to return call to office. Please read below and advise. Rex Mcneal * Telephone Encounter - Giancarlo Kendall MD - 01/07/2022 6:56 AM EDT Order for Dr Riggins placed * Telephone Encounter - Yuliana Velázquez LPN - 01/01/2022 1:16 PM EDT Patient calling his my chart is not working. He has help desk phone number. Gave patient list of appts coming up so he can remember them. Patient said lately he has short fuse and is grumpy. He said he feels stressed but does not want togo back on anti-depressants, they made him feel numb. Patient said he can not figure out what to dofirst, he is over whelmed at times. He can not remember his appts, wants to go back to seeing Thomas Matute again. Aware PCP is out of the office this week. He just wanted to let PCP know what is goingon with him. documented in this encounterUniversity Hospitals Tripoint [facility] Center04-25-2022 Instructions* Patient Instructions* Cristy Varela, JUVENCIO - 01/06/2022 10:37 AM EDT 1. Quick breakfast ideas; double fiber wolof muffing with peanut butter or egg; Old fashioned oatmeal with protein; 2. For shakes one 8 oz cup milk and one scoop powder. 3. Spread intake evenly throughout the day 4. Lunch ideas; salad with lentils or chick peas or edamame; low sodium jarrett or lentil soup 5. Folllow Mediteranean style eating; incorporate plant based proteins Consume whole grains (whole grain breads/cereals, oatmeal, barley, popcorn). Alopcsl90+ grams of fiber per day. Consume fresh/frozen fruit and vegetables (blueberries, nectarines, raspberries, apples, apricots, figs, prunes, dark leafy greens) Include a variety of deep colors) Consume lean protein (chicken, turkey breast, fish. Avoid eating red meats more than twice per month if at all. Aim for cheese and meats with 3 grams of fat or less per ounce. Dairy sources primarly low fat/nonfat yogurt and cheese. Use low fat cooking methods such as baking, broiling, roasted, and grilled Use healthy fats such as primarily olive oil, flaxseed oil, walnuts, almonds, pecans, olives and avocado but in limited amounts. Increase foods rich in omega-3 fatty acids (salmon, tuna, fine, sardines, obdulia) Aim for a small serving daily of Almonds/walnuts and ground flaxseed/roman seeds (2 Tablespoons/day), seeds Read food labels. Avoid products made with partially hydrogenated fats/oils. Include a variety of spices and herbs daily (oregano, robin, tumeric, morrow, garlic, etc) Follow guidelines for bone building documented in this encounterUniversity Hospitals Tripoint Medical Center04-25-2022 History of Present illness Narrative* Cristy Varela RD - 01/06/2022 10:04 AM EDT Nutrition Therapy Initial Assessment Nutrition Diagnosis: Behavioral-Environmental: Food and nutrition related knowledge deficit, related to, lack of prior exposure to information , as evidenced by change in existing diagnosis or condition. RECOMMENDED MALNUTRITION DIAGNOSIS: NO MALNUTRITION IDENTIFIED NUTRITION CARE PLAN Nutrition Intervention 01/06/2022: modify type and amount of food or beverage 1. Quick breakfast ideas; double fiber wolof muffing with peanut butter or egg; Old fashioned oatmeal with protein; 2. For shakes one 8 oz cup milk and one scoop powder. 3. Spread intake evenly throughout the day 4. Lunch ideas; salad with lentils or chick peas or edamame; low sodium jarrett or lentil soup 5. Folllow Mediteranean style eating; incorporate plant based proteins Consume whole grains (whole grain breads/cereals, oatmeal, barley, popcorn). Pctgems33+ grams of fiber per day. Consume fresh/frozen fruit and vegetables (blueberries, nectarines, raspberries, apples, apricots, figs, prunes, dark leafy greens) Include a variety of deep colors) Consume lean protein (chicken, turkey breast, fish. Avoid eating red meats more than twice per month if at all. Aim for cheese and meats with 3 grams of fat or less per ounce. Dairy sources primarly low fat/nonfat yogurt and cheese. Use low fat cooking methods such as baking, broiling, roasted, and grilled Use healthy fats such as primarily olive oil, flaxseed oil, walnuts, almonds, pecans, olives and avocado but in limited amounts. Increase foods rich in omega-3 fatty acids (salmon, tuna, fine, sardines, obdulia) Aim for a small serving daily of Almonds/walnuts and ground flaxseed/roman seeds (2 Tablespoons/day), seeds Read food labels. Avoid products made with partially hydrogenated fats/oils. Include a variety of spices and herbs daily (oregano, robin, tumeric, morrow, garlic, etc) Follow guidelines for bone building Nutrition Monitoring & Evaluation: heart healthy plant based diet Need for Follow up: 4-6 weeks Patient presents for initial MNT as relates to goal to eat healthy, nutrition to improve bone status. States experiencing chronic nausea, also notes memory issues. Has bee nfrustrated and angry, effects appetite. Cannot eat with false teeth in - this causes nausea . Intake noted for usually two meals per day. Eats a generally high sodium diet. Includes limited fruits, vegetables and fiber in diet. Wants to learn to eat a plant based diet to include fish and dairy. . Patient's symptoms are: None Diet History: Breakfast - Theodore instant breakfast in whole milk; couple poptarts if around. Weekends sausage mcmuffin. Snack - if hungry. May have cheese. 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 Resting Metabolic Rate: 1473 Malnutrition Screening Significant unintentional weight loss? No Eating less than 75% of usual intake for more than 2 weeks? No Potential Signs of Inflammation: no identifiable sources Education Materials Provided: Mediterranean Diet, Controlling your Potassium Level and Increasing Calcium in Your Diet and Whole foods plant based diet READINESS TO LEARN Cognitive ability: Alert and oriented Motivation to learn: Interested Family support: Unable to assess - Family not present Instruction provided to: Patient Patient learns best by: Individual Instruction Factors affecting learning: None Physical limitations affecting learning: None Referred/Supervised by: Faiza/Gary GIBBS Billing Type: Initial Assess/15 min 3 units SIGNATURE: Cristy Varela RD PATIENT NAME: Troy Carlson DATE: January 06, 2022 TIME: 10:09 AM documented in this encounterUniversity Hospitals [facility] Center04-13-2022 Miscellaneous Notes* Telephone Encounter - Betsey Everett Cma - 12/25/2021 8:56 AM EDT Patient notified and verbalized understanding Betsey Everett Cma * Telephone Encounter - Giancarlo Kendall MD - 12/25/2021 8:02 AM EDT Labs are ok other than calcium is borderline high, may be lab error. Red blood cells are slightly high. That may be due to not drinking enough fluid. Recheck labs next week documented in this encounterUniversity Hospitals Tripoint [facility] Center04-11-2022 Miscellaneous Notes* Telephone Encounter - Marilee Estrada Pss - 12/23/2021 1:32 PM EDT 1st attempt left vm to schedule * Telephone Encounter - Giancarlo Kendall MD - 12/23/2021 11:46 AM EDT I can try it from the standpoint of his transplant status but not sure if will cover. * Telephone Encounter - Hansa Cheema LPN - 12/23/2021 10:51 AM EDT Spoke with patient and he stated he needs a better diet for healthier bones and not sure what to eat to get the essential nutrients. * Telephone Encounter - Giancarlo Kendall MD - 12/23/2021 10:12 AM EDT What did he want to see them for. It is often not a covered service unless I have specific diagnosis * Telephone Encounter - Penny De La Cruz - 12/23/2021 9:59 AM EDT Patient would like order placed to see certified dietary manager/nutrionist. documented in this encounterUniversity Hospitals Tripoint Medical Center04-11-2022 History of Present illness Narrative* Kalina Gutierrez RT(R) - 12/23/2021 10:00 AM EDT Radiology Service Progress Note PATIENT NAME: Troy Carlson DATE OF SERVICE: December 23, 2021 TIME: 10:13 AM PATIENT IDENTITY VERIFICATION COMPLETED USING TWO (2) IDENTIFIERS: Name and Date of confirmedby patient verbally. FALL SCREENING: Has the patient had 2 falls in the last year or 1 fall with injury or currently using an Ambulatory Assistive Device (Walker, Cane, Wheelchair, Crutches, etc.)? No PATIENT GENDER DATA: Male PATIENT RELEVANT IMPLANT DATA REVIEWED: Not Applicable RADIOLOGY DEPARTMENT: General X-ray: Exam(s) Completed: Spine X-Ray(s): Cervical AP / LAT / OBL PERIPHERAL IV DATA: Not applicable SIGNED BY: RT Ratna(R) December 23, 2021 10:13 AM documented in this encounterUniversity Hospitals Tripoint Medical Center04-01-2022 History of Present illness Narrative* Tino Maya RN - 12/13/2021 4:19 PM EDT Patient seen for PICC line removal due to discontinuation of therapy. PICC line pulled, pressure held to site for 2-3 minutes. No bleeding or hematoma noted. Dressed with light pressure dressing. Advised patient he can remove dressing at home tonight. Advised if any bleeding to proceed to ED for eval. Verbalized understanding. Well tolerated by patient. See vitals in chart. Tino Maya RN documented in this encounterUniversity Hospitals Tripoint Medical Center03-29-2022 Miscellaneous Notes* Telephone Encounter - Jose Ramon Hudson MD - 12/10/2021 6:20 PM EDT He should continue with bactrim. That is a preventative medication while taking his transplant meds Jose Ramon Hudson MD * Telephone Encounter - MIGUE Kyle - 12/10/2021 3:24 PM EDT Received call form [facility] asking if PICC can be removed. Noted urinalysis/culture was cancelled by the lab and need new orders Received new orders from Dr Hudson Patient has been advised. Asking if he can start taking Bactrim again? Stated he was told while in patient to discontinue during IV treatment Please review and advise documented in this encounterUniversity Hospitals Tripoint Medical Center03-16-2022 NoteHNO ID: [id number] Author: Munir Das MD Service: Urology Author Type: Resident Type: Progress Notes Filed: 11/27/2021 6:37 AM Note Text: Attestation signed by Tino Etienne Jr., MD at 11/27/2021 11:30 AM I saw and evaluated the patient. Discussed with the resident and agree with resident's findings and plan as documented in the resident's note. Tino Etienne Jr, MD UROLOGY PROGRESS NOTE PATIENT NAME: Troy Carlson DATE OF : 1965 ADMISSION DATE: 11/21/2021 1:21 PM Subjective No overnight events. Denies fevers and chills No hematuria and has been voiding well. Ready to go home today Objective VS: BP 136/85 Pulse 61 Temp 37 ?C (98.6 ?F) (Oral) Resp 18 Ht 170.2 cm (5' 7) Wt 65.8 kg (145 lb) SpO2 96% BMI 22.71 kg/m? I AND O - 24hr: Intake/Output Summary (Last 24 hours) at 11/27/2021 0617 Last data filed at 11/26/2021 2200 Gross per 24 hour Intake ? Output 300 ml Net -300 ml Physical Exam: General: Neck: Resp: Abdomen: No acute distress Supple Normal effort Soft, nondistended : Flanks NTTP, no suprapubic fullness Labs and Imaging Studies LABS: BMP: Recent Labs 11/27/21 0117 11/26/21 0252 11/25/21 0156 NA 139 139 141 K 4.1 4.1 3.8 CHLOR 100 102 103 CO2 28 28 27 BUN 21 19 13 CREAT 1.32* 1.28* 1.17 GLUC 122* 141* 107* CBC: Recent Labs 11/27/21 0117 11/26/21 0252 11/25/21 0155 WBC 6.04 4.39 5.01 HB 15.5 14.1 14.8 HCT 43.7 40.9 42.7 PLT 121* 108* -- Urinalysis: pH, Arterial Date Value Ref Range Status 11/06/2015 7.38 7.35 - 7.45 Final Specific [place], Ur Date Value Ref Range Status 08/16/2021 1.015 1.005 - 1.030 Final Glucose, Urine Date Value Ref Range Status 08/16/2021 Negative Negative mg/dL Final Bilirubin, Urine Date Value Ref Range Status 08/16/2021 Negative Negative Final Ketones, Urine Date Value Ref Range Status 08/16/2021 Negative Negative Final Hemoglobin/Blood,Ur Date Value Ref Range Status 08/16/2021 1+ (A) Negative Final Protein, Urine Date Value Ref Range Status 08/16/2021 2+ (A) Negative Final Urobilinogen, Urine Date Value Ref Range Status 11/03/2013 2 Normal (<1.1) EU Final Nitrites Date Value Ref Range Status 08/16/2021 Positive (A) Negative Final Leukocytes Date Value Ref Range Status 11/03/2013 neg Neg Final WBC, Urine Date Value Ref Range Status 08/16/2021 >25 (A) 0 - 5 /HPF Final Urine Culture: No results found for: URCUL Assessment/Plan ASSESSMENT: 56 year old male?Hx liver transplant s/p TURP 11/21 ? PLAN: Pain control DC IVF Continue Zosyn and cipro 2 weeks after discharge DC today, awaiting to come for IV teaching ? ? Elizabeth Duarte, MS3 ? Agree with medical student assessment and plan as above. Any additions noted in blue and any changes noted with . Munir Das MD Urology, PGY5 6:37 AM 11/27/2021 #[id number]03-15-2022 NoteHNO ID: [id number] Author: Camille Easley RN Service: Nursing Author Type: Registered Nurse Type: Progress Notes Filed: 11/26/2021 2:24 PM Note Text: Spoke with via phone regarding plan for discharge. Gave her the number for the and Infusion center to call and set up a time for teaching. Explained this needs to be done prior to discharge and to please call to set up time as soon as possible. was understanding.[facility]03-15-2022 NoteHNO ID: [id number] Author: Foster Ogden MD Service: Urology Author Type: Physician Type: Progress Notes Filed: 11/26/2021 3:07 PM Note Text: UROLOGY PROGRESS NOTE PATIENT NAME: Troy Carlson DATE OF : 1965 ADMISSION DATE: 11/21/2021 1:21 PM Subjective No overnight events. Denies fevers, chills, nausea and vomiting. No hematuria and has been voiding fine. Objective VS: BP 158/58 Pulse (!) 55 Temp 36.2 ?C (97.2 ?F) (Oral) Resp 18 Ht 170.2 cm (5' 7) Wt 65.8 kg (145 lb) SpO2 97% BMI 22.71 kg/m? I AND O - 24hr: No intake or output data in the 24 hours ending 11/26/21 0641 Physical Exam: General: Neck: Resp: Abdomen: No acute distress Supple Normal effort Soft, nondistended : No hematuria, flanks nonTTP Labs and Imaging Studies LABS: BMP: Recent Labs 11/26/21 0252 11/25/21 0156 11/24/21 0529 NA 139 141 142 K 4.1 3.8 3.7 CHLOR 102 103 107* CO2 28 27 27 BUN 19 13 11 CREAT 1.28* 1.17 1.13 GLUC 141* 107* 90 CBC: Recent Labs 11/26/21 0252 11/25/21 0155 11/24/21 0529 WBC 4.39 5.01 3.80 HB 14.1 14.8 13.8 HCT 40.9 42.7 39.6 PLT 108* -- 107* Urinalysis: pH, Arterial Date Value Ref Range Status 11/06/2015 7.38 7.35 - 7.45 Final Specific [place], Ur Date Value Ref Range Status 08/16/2021 1.015 1.005 - 1.030 Final Glucose, Urine Date Value Ref Range Status 08/16/2021 Negative Negative mg/dL Final Bilirubin, Urine Date Value Ref Range Status 08/16/2021 Negative Negative Final Ketones, Urine Date Value Ref Range Status 08/16/2021 Negative Negative Final Hemoglobin/Blood,Ur Date Value Ref Range Status 08/16/2021 1+ (A) Negative Final Protein, Urine Date Value Ref Range Status 08/16/2021 2+ (A) Negative Final Urobilinogen, Urine Date Value Ref Range Status 11/03/2013 2 Normal (<1.1) EU Final Nitrites Date Value Ref Range Status 08/16/2021 Positive (A) Negative Final Leukocytes Date Value Ref Range Status 11/03/2013 neg Neg Final WBC, Urine Date Value Ref Range Status 08/16/2021 >25 (A) 0 - 5 /HPF Final Urine Culture: No results found for: URCUL Assessment/Plan ASSESSMENT: 56 year old male Hx liver transplant s/p TURP 11/21 PLAN: Pain control Continue Zosyn and cipro 2 weeks after discharge DC today, awaiting placement Elizabeth Duarte, MS3 Agree with medical student assessment and plan as above. Any additions noted in blue and any changes noted with . Munir Das MD Urology, PGY5 I saw and evaluated the patient. Discussed with the resident and agree with resident's findings and plan as documented in the resident's note. Foster Ogden, [facility]03-14-2022 NoteHNO ID: [id number] Author: Munir Das MD Service: Urology Author Type: Resident Type: Progress Notes Filed: 11/25/2021 8:14 AM Note Text: Attestation signed by Herminio Miranda MD at 11/25/2021 4:35 PM I saw and evaluated the patient. Discussed with the resident and agree with resident's findings and plan as documented in the resident's note. UROLOGY PROGRESS NOTE PATIENT NAME: Troy Carlson DATE OF : 1965 ADMISSION DATE: 11/21/2021 1:21 PM Subjective No overnight events. No nausea or vomiting. No fevers or chills. No hematuria and voiding well. Objective VS: BP 133/79 Pulse (!) 59 Temp 36.8 ?C (98.2 ?F) (Oral) Resp 18 Ht 170.2 cm (5' 7) Wt 65.8 kg (145 lb) SpO2 95% BMI 22.71 kg/m? I AND O - 24hr: Intake/Output Summary (Last 24 hours) at 11/25/2021 06 Last data filed at 11/24/2021 1500 Gross per 24 hour Intake 200 ml Output 1050 ml Net -850 ml Physical Exam: General: Neck: Resp: Abdomen: No acute distress Supple Normal effort Soft, nondistended : No flank tenderness, no hematuria Labs and Imaging Studies LABS: BMP: Recent Labs 11/25/21 01511/24/21 0529 11/23/21 0419 NA 141 142 144 K 3.8 3.7 3.0* CHLOR 103 107* 110* CO2 27 27 25 BUN 13 11 9 CREAT 1.17 1.13 1.06 GLUC 107* 90 111* CBC: Recent Labs 11/25/21 01511/24/21 0529 11/23/21 0419 WBC 5.01 3.80 4.06 HB 14.8 13.8 13.1 HCT 42.7 39.6 37.9* PLT -- 107* 96* Urinalysis: pH, Arterial Date Value Ref Range Status 11/06/2015 7.38 7.35 - 7.45 Final Specific [place], Ur Date Value Ref Range Status 08/16/2021 1.015 1.005 - 1.030 Final Glucose, Urine Date Value Ref Range Status 08/16/2021 Negative Negative mg/dL Final Bilirubin, Urine Date Value Ref Range Status 08/16/2021 Negative Negative Final Ketones, Urine Date Value Ref Range Status 08/16/2021 Negative Negative Final Hemoglobin/Blood,Ur Date Value Ref Range Status 08/16/2021 1+ (A) Negative Final Protein, Urine Date Value Ref Range Status 08/16/2021 2+ (A) Negative Final Urobilinogen, Urine Date Value Ref Range Status 11/03/2013 2 Normal (<1.1) EU Final Nitrites Date Value Ref Range Status 08/16/2021 Positive (A) Negative Final Leukocytes Date Value Ref Range Status 11/03/2013 neg Neg Final WBC, Urine Date Value Ref Range Status 08/16/2021 >25 (A) 0 - 5 /HPF Final Urine Culture: No results found for: URCUL Assessment/Plan ASSESSMENT: 56 year old male Hx liver transplant s/p TURP 11/21 - passed void trial PLAN: Diet Pain control -urine culture growing pseudomonas AND achromobacter dentrificans/xylosoxidans - multiple resistances between the two -Infectious disease consulted, PICC line placed, recommendations for Zosyn and Cipro for 2 weeks on discharge -Discharge once SNF arranged, likely today Elizabeth Duarte, Ms3 Agree with medical student assessment and plan as above. Any additions noted in blue and any changes noted with . Munir Das MD Urology, PGY5 8:13 AM 11/25/2021 #[id number]03-13-2022 NoteHNO ID: [id number] Author: Munir Das MD Service: Urology Author Type: Resident Type: Progress Notes Filed: 11/24/2021 8:45 AM Note Text: Attestation signed by Herminio Miranda MD at 11/24/2021 3:59 PM I saw and evaluated the patient. Discussed with the resident and agree with resident's findings and plan as documented in the resident's note. Passed voiding trial. D/C snf w/ abx per ID. Herminio Miranda MD UROLOGY PROGRESS NOTE PATIENT NAME: Troy Carlson DATE OF : 1965 ADMISSION DATE: 11/21/2021 1:21 PM Subjective No acute events overnight. PICC line placed yesterday, some sensitivity around placement site No nausea or vomiting. No fevers or chills. Objective VS: BP 120/61 Pulse (!) 56 Temp 36.3 ?C (97.3 ?F) (Oral) Resp 18 Ht 170.2 cm (5' 7) Wt 65.8 kg (145 lb) SpO2 96% BMI 22.71 kg/m? I AND O - 24hr: Intake/Output Summary (Last 24 hours) at 11/24/2021 0843 Last data filed at 11/24/2021 0549 Gross per 24 hour Intake 240 ml Output 5275 ml Net -5035 ml Physical Exam: General: Neck: Resp: Abdomen: No acute distress Supple Normal effort Soft, non-tender, nondistended : Birch in place draining clear yellow urine off CBI Labs and Imaging Studies LABS: BMP: Glucose (mg/dL) Date Value 11/24/2021 90 08/16/2021 98 Potassium (mmol/L) Date Value 11/24/2021 3.7 08/16/2021 3.9 Sodium (mmol/L) Date Value 11/24/2021 142 08/16/2021 140 Chloride (mmol/L) Date Value 11/24/2021 107 08/16/2021 106 CO2 (mmol/L) Date Value 11/24/2021 27 08/16/2021 20 Creatinine (mg/dL) Date Value 11/24/2021 1.13 08/16/2021 1.16 BUN (mg/dL) Date Value 11/24/2021 11 08/16/2021 18 Anion Gap (mmol/L) Date Value 11/24/2021 8 08/16/2021 14 Calcium (mg/dL) Date Value 08/16/2021 9.3 Calcium, Total (mg/dL) Date Value 11/24/2021 9.3 CBC: Hemoglobin (g/dL) Date Value 11/24/2021 13.8 08/16/2021 16.8 Hematocrit (%) Date Value 11/24/2021 39.6 08/16/2021 47.9 WBC (k/uL) Date Value 11/24/2021 3.80 08/16/2021 5.47 Platelet Count (k/uL) Date Value 11/24/2021 107 08/16/2021 144 Urinalysis: pH, Arterial Date Value Ref Range Status 11/06/2015 7.38 7.35 - 7.45 Final Specific [place], Ur Date Value Ref Range Status 08/16/2021 1.015 1.005 - 1.030 Final Glucose, Urine Date Value Ref Range Status 08/16/2021 Negative Negative mg/dL Final Bilirubin, Urine Date Value Ref Range Status 08/16/2021 Negative Negative Final Ketones, Urine Date Value Ref Range Status 08/16/2021 Negative Negative Final Hemoglobin/Blood,Ur Date Value Ref Range Status 08/16/2021 1+ (A) Negative Final Protein, Urine Date Value Ref Range Status 08/16/2021 2+ (A) Negative Final Urobilinogen, Urine Date Value Ref Range Status 11/03/2013 2 Normal (<1.1) EU Final Nitrites Date Value Ref Range Status 08/16/2021 Positive (A) Negative Final Leukocytes Date Value Ref Range Status 11/03/2013 neg Neg Final WBC, Urine Date Value Ref Range Status 08/16/2021 >25 (A) 0 - 5 /HPF Final Urine Culture: No results found for: URCUL RADIOLOGY: Assessment and Plan ASSESSMENT: 56 year old male with a history of liver transplant s/p TURP 11/21 PLAN: -diet -pain control -Discontinue Birch today with void trial -urine culture growing pseudomonas AND achromobacter dentrificans/xylosoxidans - multiple resistances between the two -Infectious disease consulted, PICC line placed, recommendations for Zosyn and Cipro for 2 weeks on discharge -Discharge once SNF arranged, likely tomorrow Munir Das MD Urology, PVA1L[facility]xSt[facility] NoteHNO ID: [id number] Author: Herminio Miranda MD Service: Urology Author Type: Physician Type: Progress Notes Filed: 11/23/2021 1:28 PM Note Text: UROLOGY PROGRESS NOTE PATIENT NAME: Troy Carlson DATE OF : 1965 ADMISSION DATE: 11/21/2021 1:21 PM Subjective No acute events overnight. PICC line placed yesterday, some sensitivity around placement site No nausea or vomiting. No fevers or chills. Objective VS: BP 127/60 Pulse 60 Temp 36.6 ?C (97.9 ?F) (Oral) Resp 18 Ht 170.2 cm (5' 7) Wt 65.8 kg (145 lb) SpO2 98% BMI 22.71 kg/m? I AND O - 24hr: Intake/Output Summary (Last 24 hours) at 11/23/2021 1027 Last data filed at 11/23/2021 1000 Gross per 24 hour Intake 290 ml Output 5000 ml Net -4710 ml Physical Exam: General: Neck: Resp: Abdomen: No acute distress Supple Normal effort Soft, non-tender, nondistended : Birch in place draining clear yellow urine off CBI Labs and Imaging Studies LABS: BMP: Glucose (mg/dL) Date Value 11/23/2021 111 08/16/2021 98 Potassium (mmol/L) Date Value 11/23/2021 3.0 08/16/2021 3.9 Sodium (mmol/L) Date Value 11/23/2021 144 08/16/2021 140 Chloride (mmol/L) Date Value 11/23/2021 110 08/16/2021 106 CO2 (mmol/L) Date Value 11/23/2021 25 08/16/2021 20 Creatinine (mg/dL) Date Value 11/23/2021 1.06 08/16/2021 1.16 BUN (mg/dL) Date Value 11/23/2021 9 08/16/2021 18 Anion Gap (mmol/L) Date Value 11/23/2021 9 08/16/2021 14 Calcium (mg/dL) Date Value 08/16/2021 9.3 Calcium, Total (mg/dL) Date Value 11/23/2021 8.3 CBC: Hemoglobin (g/dL) Date Value 11/23/2021 13.1 08/16/2021 16.8 Hematocrit (%) Date Value 11/23/2021 37.9 08/16/2021 47.9 WBC (k/uL) Date Value 11/23/2021 4.06 08/16/2021 5.47 Platelet Count (k/uL) Date Value 11/23/2021 96 08/16/2021 144 Urinalysis: pH, Arterial Date Value Ref Range Status 11/06/2015 7.38 7.35 - 7.45 Final Specific [place], Ur Date Value Ref Range Status 08/16/2021 1.015 1.005 - 1.030 Final Glucose, Urine Date Value Ref Range Status 08/16/2021 Negative Negative mg/dL Final Bilirubin, Urine Date Value Ref Range Status 08/16/2021 Negative Negative Final Ketones, Urine Date Value Ref Range Status 08/16/2021 Negative Negative Final Hemoglobin/Blood,Ur Date Value Ref Range Status 08/16/2021 1+ (A) Negative Final Protein, Urine Date Value Ref Range Status 08/16/2021 2+ (A) Negative Final Urobilinogen, Urine Date Value Ref Range Status 11/03/2013 2 Normal (<1.1) EU Final Nitrites Date Value Ref Range Status 08/16/2021 Positive (A) Negative Final Leukocytes Date Value Ref Range Status 11/03/2013 neg Neg Final WBC, Urine Date Value Ref Range Status 08/16/2021 >25 (A) 0 - 5 /HPF Final Urine Culture: No results found for: URCUL RADIOLOGY: Assessment and Plan ASSESSMENT: 56 year old male with a history of liver transplant s/p TURP 11/21 PLAN: -diet -pain control -maintain birch -CBI clamped; hematuria resolved -urine culture growing pseudomonas AND achromobacter dentrificans/xylosoxidans - multiple resistances between the two -Infectious disease consulted, PICC line placed, recommendations for Zosyn and Cipro for 2 weeks on discharge -Discharge once CoPAT arranged, hopefully later today Munir Das MD Urology, PGY5 I saw and evaluated the patient. Discussed with the resident and agree with resident's findings and plan as documented in the resident's note. Needs IV abx. Will need SNF. Probably will be here over weekend. Plan on voiding trial tomorrow. Herminio Miranda, [facility]03-11-2022 NoteHNO ID: [id number] Author: Fabi Ruiz RN Service: PICC Team Author Type: Registered Nurse Type: Procedures Filed: 11/22/2021 1:21 PM Note Text: PICC NURSE INSERTION NOTE DATE OF PROCEDURE: November 22, 2021 TIME OF PROCEDURE: 1240 ORDERING PHYSICIAN: bobby INFORMED CONSENT: Obtained per hospital policy. INDICATION FOR LINE PLACEMENT: COPAT CONDITION OF LINE PLACEMENT: Sterile PRIMARY PROCEDURALIST: Emily Phipps RN PRINTED CIRCUIT LAYOUT TAPER: Fabi Ruiz RN PRE-PROCEDURE REVIEW ALLERGIES Allergen Reactions - Acetaminophen Hives - Hydrocodone Hives - Morphine Hives, Other: See Comments - Latex Rash - Ketorolac Unknown Pt states allergy, told not to take with liver transplant - Vancomycin (Bulk) Rash, Itching - Vicodin [Hydrocodon* Itching Known History of Upper Venous Thrombosis: No Known History of Permanent Pacemaker or Automated Implanted Cardiac Device: No Previous Breast Surgery of Lymph Node Dissection: No eGFR-All Other Races Date/Time Value Ref Range Status 11/07/2021 03:29 PM >60 Final Comment: eGFR (Estimated GFR) Units of measure: mL/min/1.73 meters squared eGFR is derived from the reexpressed MDRD Study equation using the following parameters: serum creatinine, age, gender and race. The creatinine assay has been calibrated to be traceable to IDMS. An eGFR <60 mL/min/1.73m2 for >3 months is consistent with chronic kidney disease. Refer to KDOQI guidelines for clinical interpretation. In patients with unstable renal function, e.g. those with acute kidney injury, the eGFR may not accurately reflect actual GFR. 08/16/2021 10:16 AM >60 . Final Comment: eGFR (Estimated GFR) Units of measure: mL/min/1.73 meters squared eGFR is derived from the reexpressed MDRD Study equation using the following parameters: serum creatinine, age, gender and race. The creatinine assay has been calibrated to be traceable to IDMS. An eGFR <60 mL/min/1.73m2 for >3 months is consistent with chronic kidney disease. Refer to KDOQI guidelines for clinical interpretation. In patients with unstable renal function, e.g. those with acute kidney injury, the eGFR may not accurately reflect actual GFR. Note: On 11/09/2021, the eGFR calculation will be updated to the NKF-ASN Task Force recommended 2020 CKD-EPI creatinine equation which does not include a race variable. For more information or to access a 2020 CKD-EPI calculator, visit the National Kidney Foundation website at kidney.org/professionals/kdoqi/gfr_calculator. Estimated Glomerular Filtration Rate Date/Time Value Ref Range Status 11/22/2021 06:58 AM 95 >=60 mL/min/1.73m? Final Comment: Estimated Glomerular Filtration Rate (eGFR) is calculated using the 2020 CKD-EPI creatinine equation. This equation utilizes serum creatinine, sex, and age as parameters. The creatinine assay has traceable calibration to isotope dilution-mass spectrometry. Refer to KDIGO guidelines for clinical interpretation. In patients with unstable renal function, e.g. those with acute kidney injury, the eGFR may not accurately reflect actual GFR. eGFR- Date/Time Value Ref Range Status 11/07/2021 03:29 PM >60 Final 08/16/2021 10:16 AM >60 Final eGFR, Date/Time Value Ref Range Status 09/11/2015 03:55 PM >60 Final History of Renal Disease: No Ultrasound Assessment Complete: Yes PROCEDURE NARRATIVE SAFE PRACTICE Hand Hygiene per Hospital Policy: Yes Skin Preparation Unit Dose Applicator Used: Chloraprep (CHG + alcohol), allowed to dry. Procedure Surface Cleansed with Antimicrobial Wipes: Yes Barriers Used by Proceduralist and all Assisting Personnel: Yes UNIVERSAL PROTOCOL / SAFETY CHECKLIST Procedure to be Performed: Peripherally Inserted Central Catheter Sign In: A Moment of CARE was completed. Personnel directly involved with the procedure wore the appropriate PPE (Personal Protective Equipment). No special equipment needed. Patient/Surrogate Stated/Verified: PATIENT VERIFIED(optional for EMERGENT procedures): Patient name, Date of , Relevant allergies and The intended procedure Time Out Communication: Intended patient and procedure match the source documents. Consent documented and matches the intended procedure. Relevant labs, photos, and/or imaging studies have been reviewed. Correct side/site marked and visible. Medications required for procedure verified. Fire risk assessed and interventions discussed. No implant(s) inserted. Sign Out: SIGN OUT (optional for EMERGENT procedures): No specimen collected. All instruments, equipment, possible retained foreign bodies accounted for. Post-procedure follow-up management communicated and Plan of Care Visit completed when applicable. Fabi Ruiz RN CATHETER PLACEMENT Brand: bard Lot: [id number] Number of Lumens: 1 Type of PICC: Power Injectable PICC Lumen Size: 4 Austrian PLACEMENT TECHNIQUE Lidocaine: Yes, Lido (more content not included)...[facility] 11-22-2021 NoteHNO ID: [id number] Author: Jose Ramon Hudson MD Service: Infectious Disease Author Type: Physician Type: Plan of Care Filed: 11/22/2021 12:19 PM Note Text: Full note to follow. Patient seen. Agree w IV antibiotics PsA / Achromobacter dentrificans/xylosoxidans UTI, complicated Plan for zosyn continuous + po cipro, 2 weeks Ordered [facility]03-11-2022 NoteHNO ID: [id number] Author: Herminio Miranda MD Service: Urology Author Type: Physician Type: Progress Notes Filed: 11/23/2021 1:27 PM Note Text: UROLOGY PROGRESS NOTE PATIENT NAME: Troy Carlson DATE OF : 1965 ADMISSION DATE: 11/21/2021 1:21 PM Subjective No acute events overnight. Feeling well Objective VS: BP 109/59 Pulse 62 Temp 36.7 ?C (98.1 ?F) (Oral) Resp 16 Ht 170.2 cm (5' 7) Wt 65.8 kg (145 lb) SpO2 94% BMI 22.71 kg/m? I AND O - 24hr: Intake/Output Summary (Last 24 hours) at 11/22/2021 0725 Last data filed at 11/22/2021 0412 Gross per 24 hour Intake 6200 ml Output 6250 ml Net -50 ml Physical Exam: General: Neck: Resp: Abdomen: No acute distress Supple Normal effort Soft, non-tender, nondistended : Birch in place draining clear yellow urine on slow drip CBI Labs and Imaging Studies LABS: BMP: Glucose (mg/dL) Date Value 11/07/2021 77 08/16/2021 98 Potassium (mmol/L) Date Value 11/07/2021 4.5 08/16/2021 3.9 Sodium (mmol/L) Date Value 11/07/2021 141 08/16/2021 140 Chloride (mmol/L) Date Value 11/07/2021 102 08/16/2021 106 CO2 (mmol/L) Date Value 11/07/2021 29 08/16/2021 20 Creatinine (mg/dL) Date Value 11/07/2021 1.20 08/16/2021 1.16 BUN (mg/dL) Date Value 11/07/2021 16 08/16/2021 18 Anion Gap (mmol/L) Date Value 11/07/2021 10 08/16/2021 14 Calcium (mg/dL) Date Value 08/16/2021 9.3 Calcium, Total (mg/dL) Date Value 11/07/2021 9.8 CBC: Hemoglobin (g/dL) Date Value 11/07/2021 16.8 08/16/2021 16.8 Hematocrit (%) Date Value 11/07/2021 49.8 08/16/2021 47.9 WBC (k/uL) Date Value 11/07/2021 7.65 08/16/2021 5.47 Platelet Count Date Value 11/07/2021 Comment: Platelets Clumped Estimate Normal. Platelet count confirmed by manual review of peripheral blood smear 08/16/2021 144 k/uL Urinalysis: pH, Arterial Date Value Ref Range Status 11/06/2015 7.38 7.35 - 7.45 Final Specific [place], Ur Date Value Ref Range Status 08/16/2021 1.015 1.005 - 1.030 Final Glucose, Urine Date Value Ref Range Status 08/16/2021 Negative Negative mg/dL Final Bilirubin, Urine Date Value Ref Range Status 08/16/2021 Negative Negative Final Ketones, Urine Date Value Ref Range Status 08/16/2021 Negative Negative Final Hemoglobin/Blood,Ur Date Value Ref Range Status 08/16/2021 1+ (A) Negative Final Protein, Urine Date Value Ref Range Status 08/16/2021 2+ (A) Negative Final Urobilinogen, Urine Date Value Ref Range Status 11/03/2013 2 Normal (<1.1) EU Final Nitrites Date Value Ref Range Status 08/16/2021 Positive (A) Negative Final Leukocytes Date Value Ref Range Status 11/03/2013 neg Neg Final WBC, Urine Date Value Ref Range Status 08/16/2021 >25 (A) 0 - 5 /HPF Final Urine Culture: No results found for: URCUL RADIOLOGY: Assessment and Plan ASSESSMENT: 56 year old male with a history of liver transplant s/p TURP 11/21 PLAN: -diet -pain control -maintain birch -CBI clamped; hematuria resolved -urine culture growing pseudomonas AND achromobacter dentrificans/xylosoxidans - multiple resistances between the two; adding zosyn to cipro to cover both; checking BMP -consult ID for the urine culture; appreciate recs for Abx and mgmt for going home -possible discharge later today pending ID recs Efrem Parsons MD I saw and evaluated the patient. Discussed with the resident and agree with resident's findings and plan as documented in the resident's note. Waiting on ID recs. Cont birch. Herminio Miranda, [facility]03-10-2022 NoteHNO ID: [id number] Author: Rambo Reed APRN.CRNA Service: Anesthesiology Author Type: Nurse Engineering Recruiter Type: Anesthesia Procedure Notes Filed: 11/21/2021 4:13 PM Note Text: ANESTHESIOLOGY PROCEDURE NOTE Airway General Information Procedure Start Time/Medication Administration: 11/21/2021 4:08 PM Patient location during procedure: OR Timeout Performed Pre-procedure: timeout performed Consent Obtained: Yes Patient identity confirmed: arm band and patient Staffing CYLINDER HEAD ASSEMBLER: Rambo Reed APRN.CYLINDER HEAD ASSEMBLER Performed by: IJEOMA Indications and Patient Condition Preoxygenated: yes Patient position: sniffing Indications for airway management: anesthesia anesthesia circuit Method: asleep Final Airway Details Final airway type: supraglottic airway Number of attempts at approach: 1 Final Supraglottic Airway: i-gel Size 4 Seal Adequate: yes Failed airway: no Unrecognized esophageal intubation: no Airway not difficult SIGNATURE: Rambo Reed APRN.CRNA PATIENT NAME: Troy Carlson DATE: November 21, 2021 TIME: 4:12 PM CSN: [id number][facility] NoteHNO ID: [id number] Author: CHE Wilson Service: Radiology Author Type: Technologist Type: Progress Notes Filed: 09/05/2021 10:44 AM Note Text: RADIOLOGY SERVICE PROGRESS NOTE SERVICE DATE: 09/05/2021 SERVICE TIME: 10:42 AM PATIENT IDENTITY VERIFICATION COMPLETED USING TWO (2) STANDARD IDENTIFIERS: Name and Date of confirmed by patient verbally and Name and Date of confirmed by identification band FALL SCREENING: Has the patient had 2 falls in the last year or 1 fall with injury or currently using an Ambulatory Assistive Device (Walker, Cane, Wheelchair, Crutches, etc.)? No PATIENT GENDER DATA: .male ALLERGIES: Reviewed and unchanged MEDICATIONS REVIEWED: Not applicable PATIENT RELEVANT IMPLANT DATA REVIEWED: Not Applicable CREATININE: Creatinine Date Value Ref Range Status 08/16/2021 1.16 0.73 - 1.22 mg/dL Final 03/29/2021 1.17 0.73 - 1.22 mg/dL Final 03/19/2021 1.16 0.73 - 1.22 mg/dL Final eGFR-All Other Races Date Value Ref Range Status 08/16/2021 >60 . Final Comment: eGFR (Estimated GFR) Units of measure: mL/min/1.73 meters squared eGFR is derived from the reexpressed MDRD Study equation using the following parameters: serum creatinine, age, gender and race. The creatinine assay has been calibrated to be traceable to IDMS. An eGFR <60 mL/min/1.73m2 for >3 months is consistent with chronic kidney disease. Refer to KDOQI guidelines for clinical interpretation. In patients with unstable renal function, e.g. those with acute kidney injury, the eGFR may not accurately reflect actual GFR. Note: On 11/09/2021, the eGFR calculation will be updated to the NKF-ASN Task Force recommended 2020 CKD-EPI creatinine equation which does not include a race variable. For more information or to access a 2020 CKD-EPI calculator, visit the National Kidney Foundation website at kidney.org/professionals/kdoqi/gfr_calculator. eGFR- Date Value Ref Range Status 08/16/2021 >60 Final P.O.C.T. RESULTS: N/A September 05, [address] PERFORMED: No IV SITE: Ambulatory: A peripheral IV was started in the Right hand with a Angio cath: 22 gauge. POST EXAM PIV STATUS: Discontinued PROCEDURE TYPE: NM Stress: 12.4mCi [id number] was administered IV for Rest Imaging at 10:25 by CHE Wilson. 31 mCi [id number] was administered IV for Stress Imaging at 10:25 by CHE Wilson. PATIENT DISCHARGED TO: Ambulatory patient, left NM department area. A Diagnostic radioactive procedure has taken place, with no further precautions necessary other than routine body substance precautions. More information regarding radiation safety can be found using this link: [email or web address] SIGNATURE: CHE Wilson PATIENT NAME: Troy Carlson DATE: September 05, 2021 TIME: 10:42 AM PAG[facility]CONTACT [id number] Miscellaneous Notes* Telephone Encounter - Jesse Finney LPN - 08/16/2021 10:41 AM EST Pt phones office to let PCP know he was in to the lab today to have his labs drawn. He also gave a urine sample to d/t he started with burning with urination within the last few days. He states it isnot unbearable yet. Denies fevers, back pain. He states it feels like it's just starting. Currentlyhas indwelling cath. Pt just wanted PCP to be aware. Advised urine studies are still in process andthat we would call when they are complete. Jesse Finney LPN documented in [facility]21 NoteHNO ID: [id number] Author: Foster Ogden MD Service: ? Author Type: Physician Type: Procedures Filed: 06/17/2021 10:49 AM Note Text: CYSTOSCOPY PROCEDURE NOTE: Troy Carlson is a 56 year old male who presents with BPH for cystoscopy. Pt ID verified with patient: Yes Procedure verified with patient: Yes Procedure confirmed with physician and net application support specialist: Yes Patient's Pre-op pain level: 0 Sign In History and Physical Exam reviewed and is unchanged. . Informed Consent Discussed: Yes. Risks, benefits, alternatives and personnel discussed with patient who consents to proceed. Sign in Communication: Completed Time Out: Team Confirms the Correct Patient, Correct Procedure; Cystoscopy, Correct Site and Site Marking, Correct Position (if applicable). Fire Safety Check List Reviewed: Yes Affirmation of Time Out: Yes Sign Out: Sign Out Discussion: Completed Physician: Foster Ogden MD A urinalysis was performed revealing no evidence of infection. The benefits, risks, alternatives of the cystoscopy procedure and personnel were discussed with the patient. The verbal consent was obtained and the patient agrees to proceed. Procedure: The patient was placed on the procedure table in the supine position and prepped and draped in the usual sterile fashion. 2% Lidocaine Jelly was placed per urethra as an anesthetic in the standard fashion. Once adequate local anesthesia was achieved, the tip of the flexible cystoscope was carefully placed into the urethra under direct visual guidance. The scope was negotiated through the pendulous urethra to the level of the bulbar urethra with no evidence of stricture. The verumontanum came into view and the scope was negotiated through the prostatic urethra which showed evidence of bi lobar occlusive disease. The bladder was entered and careful cantu endoscopy was carried out. The posterior, superior and lateral miller and dome of the bladder were all well visualized. The findings were consistent with no evidence of bladder mucosal pathology. At the conclusion of the procedure, the flexible cystoscope was removed atraumatically. The patient tolerated the procedure without complications. Patient was given standard post-procedure instructions, and was directed to complete the course of oral antibiotics and increase oral fluid intake as directed. Patient's Post-op pain level: 0 ASSESSMENT/PLAN: 1. Urine retention - ICD9: 788.20, ICD10: R33.9 - CYSTO.PANENDO - URINE CULTURE Foster Ogden Bilobar BPH, with moderate [place] ; Send culture today ; One more try at Void trial in [place] , If failes, we will need to schedule [facility]10-04-2021 NoteHNO ID: [id number] Author: Foster Ogden MD Service: ? Author Type: Physician Type: Progress Notes Filed: 06/17/2021 10:49 AM Note Text: ESTABLISHED PATIENT VISIT HPI Troy Carlson is a 56 year old male who presents with BPH and several failed voiding trials, despite medication. Currently has a Birch catheter Cystoscopy today reviewed with patient, demonstrated by lobar occlusion with moderate intravesical extension Patient Entered Questionnaires PROMIS Global Health PROMIS Global Health Scale 07/23/2017 07/13/2019 11/22/2020 Physical Health Percentile 22 % 22 % 7 % Mental Health Percentile 5 % 5 % 13 % Percentiles provide an indication of how the patient's score ranks in relation to the general population. Higher percentile rankings indicate better function/quality of life. 50th percentile is the average of the general population and indicates half of respondents had a worse score. Creatinine Date Value Ref Range Status 03/29/2021 1.17 0.73 - 1.22 mg/dL Final PSA (ng/mL) Date Value 07/23/2017 0.29 04/22/2013 0.18 PSA Screening (ng/mL) Date Value 03/29/2021 0.62 02/17/2019 0.33 07/03/2014 0.08 Color (no units) Date Value 02/26/2021 Yellow Clarity (no units) Date Value 04/13/2017 Cloudy Glucose, Urine (mg/dL) Date Value 02/26/2021 Negative Bilirubin, Urine (no units) Date Value 02/26/2021 Negative Ketones, Urine (no units) Date Value 02/26/2021 Trace Specific [place], Ur (no units) Date Value 02/26/2021 <=1.005 Hemoglobin/Blood,Ur ( ) Date Value 02/26/2021 Negative pH, Urine (no units) Date Value 02/26/2021 6.5 Protein, Urine (no units) Date Value 02/26/2021 Negative Urobilinogen (E.U./dL) Date Value 02/26/2021 0.2 Nitrites (no units) Date Value 02/26/2021 Negative Leukest (no units) Date Value 02/26/2021 Negative 24HR Urine Studies: No results for input(s): LUPH, LUCAL, LUCIT, LUOXA, LUURIC, LUVOL, LSCAO, LSCAP, LSURIC, LUCL, AGA, LAURA, LUUREA, LUAM, LUMAG, LUPHOS, LUPCR, LUCREA, LUCRKBW, LUCAKBW, LUCACREA, LUCREACL, LWK, LUSUL in the last [id number] hours. REVIEW OF SYSTEMS Review of Systems Review of system, history including past medical history, surgical history, family history and social history reviewed and confirmed by me. 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 Anurag Doyle:noted one seizure after transplant. No seizures since, off keppra.Initial EEG showed small amplitudes polyspikes overriding periodic patterns), later EEG became normal, brain MRI unremarkable. He has been off Keppra since March 2016. No further seizure. - Osteoporosis - Panic attacks - Prostatitis 11/2011 - Psoriasis - Splenomegaly - Thrombocytopenia (HCC) Pancytopenia resolved after liver transplant - Unspecified hypothyroidism Hypothyroidism PAST SURGICAL HISTORY Procedure Laterality Date - COLONOSCOP W/ OR W/O BRSH SPEC 10/14/13 Colonoscopy - EGD W/O OR W/BRUSH/WASH 10/14/13 EGD - EGD W/O OR W/BRUSH/WASH 01/31/2019 EGD - INGUINAL HERNIA REPAIR HX 10/15/2016 - LIVER BIOPSY - NERVE ALTERATION 83? LEFT ELBOW ABOUT - PAST SURGICAL HISTORY OF 83? Deviated septum - PAST SURGICAL HISTORY OF Liver transplant : 09/2015 - PAST SURGICAL HISTORY OF PFO repair 2015 - PICC LINE INSERT/CONSULT 11/01/2015 - REMOVAL OF TONSILS,<12 Y/O Tonsillectomy FAMILY HISTORY Problem Relation Age of Onset - Arthritis Brother Back issues - COPD Mother - Alzheimer's Disease Father - Diabetes Maternal Grandmother - Diabetes Paternal Grandfather - Amblyopia Daughter SOCIAL HISTORY Social History Tobacco Use - Smoking status: Former Smoker Packs/day: 1.00 Years: 23.00 Pack years: 23.00 Types: Cigarettes Start date: 09/14/1979 Quit date: 08/01/2013 Years since quittin.8 - Smokeless tobacco: Never Used Vaping Use - Vaping Use: Never used Substance Use Topics - Alcohol use: No Alcohol/week: 0.0 standard drinks Comment: Quit 10/2011 - Drug use: No Types: IV, Marijuana, Cocaine Comment: HISTORY OF IV DRUG CLEAN OF ALL RECREATIONAL DRUG USE MEDICATIONS: pantoprazole DR (PROTONIX) 40 mg tablet Take 1 tablet by mouth daily before breakfast. Take on empty stomach, 1/2 hr before meal. simvastatin (ZOCOR) 40 mg tablet Take 1 tablet by mouth daily at bedtime. sertraline (ZOLOFT) 100 mg tablet Take 2 tablets at bedtime. buPROPion XL (WELLBUTRIN XL) 300 mg 24 hr tablet Take 1 tablet by mouth once daily. metoprolol succinate ER (TOPROL XL) 25 mg 24 hr tablet Take 1 tablet by mouth on (more content not included)...[facility]07-29-2021 Miscellaneous Notes* Telephone Encounter - Carina Perez RN - 04/11/2021 4:16 PM EDT Patient asking if JD Winter (has appt with you tomorrow) will re-order all of his medications, and send all the Rx's to [facility]? Reports he gets his liver meds from them. Patient was unable to go through the list of meds he takes, states he doesn't know, his prepares them for him. This nurse asked if his could call in to review his med list, patient states she doesn't know either. Patient states he wants Moy to figure out what medications he takes and send the Rx's to [facility]. [facility] NoteHNO ID: [id number] Author: Lisette Garcia APRN.SEBASTIÁN Service: ? Author Type: Nurse Practitioner Type: Progress Notes Filed: 04/09/2021 1:01 PM Note Text: NEW PATIENT OFFICE VISIT HISTORY OF PRESENT ILLNESS Troy Carlson is a 56 year old male with h/o retention and UTI who presents as a new patient for f/u. Patient taking flomax BID he has had birch in for 3 weeks after evaluation at [facility] for retention. CT showed a enlarged prostate otherwise negative. Patient reports getting UTI and having birch for retention in the past. Records scanned in [facility]. He is a s/p kidney transplant patient - is taking bactrim 3 times weekly for prophylaxis per patient. He denies fever or chills. He reports seeing a little blood in his birch bag the other day. Today his urine is clear. Discussed voiding trial patient would rather keep indwelling birch for now. Will change his indwelling birch catheter today with 16F coude without difficulty. Specimen obtained will send for culture. Will order cystoscopy Last PSA 03/29/21 0.62 LAB RESULTS Creatinine Date Value Ref Range Status 03/29/2021 1.17 0.73 - 1.22 mg/dL Final PSA (ng/mL) Date Value 07/23/2017 0.29 04/22/2013 0.18 PSA Screening (ng/mL) Date Value 03/29/2021 0.62 02/17/2019 0.33 07/03/2014 0.08 Color (no units) Date Value 02/26/2021 Yellow Clarity (no units) Date Value 04/13/2017 Cloudy Glucose, Urine (mg/dL) Date Value 02/26/2021 Negative Bilirubin, Urine (no units) Date Value 02/26/2021 Negative Ketones, Urine (no units) Date Value 02/26/2021 Trace Specific [place], Ur (no units) Date Value 02/26/2021 <=1.005 Hemoglobin/Blood,Ur ( ) Date Value 02/26/2021 Negative pH, Urine (no units) Date Value 02/26/2021 6.5 Protein, Urine (no units) Date Value 02/26/2021 Negative Urobilinogen (E.U./dL) Date Value 02/26/2021 0.2 Nitrites (no units) Date Value 02/26/2021 Negative Leukest (no units) Date Value 02/26/2021 Negative MEDICATIONS: pantoprazole DR (PROTONIX) 40 mg tablet Take 1 tablet by mouth daily before breakfast. Take on empty stomach, 1/2 hr before meal. simvastatin (ZOCOR) 40 mg tablet Take 1 tablet by mouth daily at bedtime. sertraline (ZOLOFT) 100 mg tablet Take 2 tablets at bedtime. buPROPion XL (WELLBUTRIN XL) 300 mg 24 hr tablet Take 1 tablet by mouth once daily. metoprolol succinate ER (TOPROL XL) 25 mg 24 hr tablet Take 1 tablet by mouth once daily. tamsulosin (FLOMAX) 0.4 mg Take 1 capsule by mouth twice daily. alendronate (FOSAMAX) 70 mg tablet Take 1 tablet by mouth one time a week. Take with a full glass of water, on an empty stomach; do NOT lie down for 30minutes. tacrolimus (PROGRAF) 1 mg capsule Take 1 capsule by mouth twice daily. Take in addition to one 0.5mg capsule for total dose of 1.5mg twice daily tacrolimus (PROGRAF) 0.5 mg capsule Take 1 capsule by mouth twice daily. (take with 1mg capsule to total 1.5mg PO BID) ursodiol (ACTIGALL) 300 mg capsule Take 1 capsule by mouth three times daily. sulfamethoxazole-trimethoprim (BACTRIM DS,SEPTRA DS) 800-160 mg per tablet 1 tablet every Thursday,Thursday,Thursday. lisinopril (ZESTRIL, PRINIVIL) 5 mg tablet Take 1 tablet by mouth once daily. potassium chloride (K-TAB) 10 mEq tablet Take 10 mEq by mouth twice daily. nortriptyline (PAMELOR) 10 mg capsule Take 1 capsule by mouth daily at bedtime. mupirocin (BACTROBAN) 2 % ointment Apply 1 application to affected area three times daily. Location: abdomen Transparent Dressings (TEGADERM FRAME STYLE) 6 X 8 bndg Apply 1 application to affected area as needed. cholecalciferol (VITAMIN D-3) 5,000 unit tab Take 5,000 Units by mouth once daily. Garlic 1,000 mg cap Take 1 capsule by mouth once daily. REVIEW OF SYSTEMS CONSTITUTIONAL: Patient reports no recent fever or weight loss CARDIOVASCULAR: No chest pain, palpitations or ankle edema. 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 Anurag Doyle:noted one seizure after transplant. No seizures since, off keppra.Initial EEG showed small amplitudes polyspikes overriding periodic patterns), later EEG became normal, brain MRI unremarkable. He has been off Keppra since March 2016. No further seizure. - Osteoporosis - Panic attacks - Prostatitis 11/2011 - Psoriasis - Splenomegaly - Thrombocytopenia (HCC) Pancytopenia resolved after liver transplant - Unspecified hypothyroidism Hypothyroidism FAMILY HISTO (more content not included)...[facility] 07-09-2018 History of Past illness Narrative* Problem Noted Date Resolved Date Hilar adenopathy 07/09/2018 08/19/2018 Last Assessment & Plan: Assessment: CT A/P on Admission shows Significant subcarinal and bilateral hilar adenopathy on the lower images through the chest. Lymphoproliferative disease suspected He does have a hx of sarcoid But no recent CT chest/CXR to compare. CT chest shows SPLENOMEGALY AND NUMEROUS ENLARGED MEDIASTINAL AND BILATERAL HILAR LYMPH NODES, INCREASED IN SIZE SINCE 2016. THE DIFFERENTIAL DIAGNOSIS INCLUDES SARCOIDOSIS AND LYMPHOPROLIFERATIVE DISEASE. PLAN: -Transfer to [facility] for further evaluation by oncology per ID recommedation. Nausea & vomiting 07/09/2018 07/28/2018 Last Assessment & Plan: Assessment: Patient notes off and on nausea for one month. Also notes worsening control of his reflux symptoms. CTA/P shows significant subcarinal and bilateral hilar adenopathy and new subtle intrahepatic biliary dilatation and common duct dilatation . Obstructing lesion must be excluded, however.Splenic enlargement PLAN: -Increase protonix to 40mg bid -Zofran PRN for N/V -GI consult pending. Cellulitis 07/09/2018 07/13/2018 Ventral hernia without obstruction or gangrene 0 03/24/2017 04/22/2017 Lower abdominal pain 07/23/2016 04/22/2017 Opioid withdrawal 11/09/2015 04/22/2017 Overview: Thursday with opioid withdrawal after attempted discontinuation of fentanyl Resolution of symptoms after re-starting fentanyl -- Continue fentanyl patch with prn IVP fentanyl for breakthrough pain -- Drip stopped 3/2 Respiratory failure, post-operative 10/22/2015 04/22/2017 Overview: Pt intubated for OLT on 10/03/15, remained intubated d/t severe hypoxia (see hepato pulmonary syndrome) 11/01 s/p tracheostomy Very weak and debilitated, profound ICU neuromyopathy Currently improved, toleratingTC, passy etta valve capped -- continue trach collar, PMV Acute pneumothorax 10/17/2015 04/22/2017 Prerenal azotemia 10/17/2015 10/24/2015 Overview: Bun/ Creat ratio now trending down. Hypernatremia resolved -- trend Renal indices -- lasix 20 mg q8 Acute pulmonary embolism 10/17/2015 017 Spontaneous pneumothorax 10/16/2015 017 Overview: Pneumothorax discovered on CT chest 10/15 in setting of high PEEP requirements s/p chest tube placements x2 Last CT removed 11/02 CXR with small persistent Rt. Apical pneumothorax- not appeciated on today's CXR --continue to follow daily CXRs Pneumonia, organism unspecified([phone]) 10/16/2015 11/02/2015 Overview: CT of chest 10/15 shows RLL consolidation suspicious for pneumonia. Completed course of vanco and meropenem continuing micfungin. Sputum culture from 10/09 shows normal respiratory erum. legionella urinary antigen negative --ID following Sepsis due to other etiology 10/15/201505/2017 Overview: Has completed empiric courses of antibiotics for persistent low grade fevers and acute decompensation No obvious source of infection identified per extensive ID workup Vanco d/c 10/25, Meropenem d/c 10/26 11/04 Acute decompensation (fevers 11/05) empiric pip-tazo, vanc, micafungin added--> off since 11/11 (cultures negative) CT chest/ab/pelvis (11/08) with no evidence of infective process -- continue to monitor off ATB Postoperative shock 10/09/2015 04/22/2017 Overview: Shock, hypotension, fevers with increasing leukocytosis in setting of liver transplant, hepatopulmonary syndrome, ARDS, hypoxia. Profound hypoxia requiring nitric oxide therapy. Required low dose levo for BP support, now off. Concern for sepsis, blood cultures negative to date, vanco and zosyn started empirically 10/08. Procalcitonin 1.06. Lacate 1.8 -- Follow cultures -- continue vanco and zosyn -- levo for BP support (avoid fluid boluses if hypotensive) Electrolyte and fluid disorder 10/07/2015 0 04/22/2017 Overview: Hypomagnesemia repleted, hyperphos -- monitor and replete lytes daily -- increase daily PO mag oxide to 800 mg TID New onset seizure 10/05/2015 11/22/2019 Overview: Seizure activity 10/05, BEM supported the dx of cortical dysfunction in the left hemisphere with potential epileptogenicity in the left fronto-central region CT head negative for acute process, neurology consulted, loaded with Keppra Currently alert, follows commands -- weaned to Keppra 500mg bid -- neurology recommending follow up with epilepsy as outpatient ARDS (adult respiratory distress syndrome) 10/0504/22/2017 Overview: Hx of hepatopulmonary syndrome, pulmonary sarcoidosis requiring home O2 6-10 liters Pulmonary HTN with ~45% shunt. Pre-op PaO2 ~55 on RA CXR now with bilateral fluffy infiltrates / ARDS w/ pulmonary edema Desaturates with movement, turning, suctioning. Space = 60% today, with compliance ~45 -- maintain aggressive vent support (100% FiO2, wean PEEP is able as higher PEEP to increase shunt) -- lung protective strategies - Vt 6ml/kg ideal body weight (~350ml) -- trach on hold while unstable -- lasix TID -- Continue Nitric oxide -- increased I:E ratio -- avoid fluid boluses for hypotension - use pressors if needed -- sputum sent for culture Postoperative anemia due to acute blood loss 04/22/2017 Overview: S/P liver transplant with EBL 17 L c/b thrombocytopenia, coagulopahty and OP bleeding requiring intra-op nasal and pharyngeal packing Last transfused 10/08 2U PRBCs. 10/10: ENT removed nasal merocel. Clots in both nasopharyxes. No reinsertion of nasal tubes. -- monitor CBC and coags -- transfuse as required Agitation requiring sedation protocol 10/05/2015 04/22/2017 Overview: Required prolonged neuromuscular blockade with deep sedation secondary to increased WOB, breath stacking and hypoxia After discontinuation, he has had difficultly controlling agitation, likely opioid withdrawl. Had required precedex, fentanyl patch, prn haldol, seroquel Currently on seroquel, fentanyl patch Has been awake and alert, very cooperative -- continue on decreased TID seroquel dosing of 25mg TID and 150 mg qHS -- continue with fentanyl patch Acute post-operative pain 10/05/20152016 Overview: Was on prolonged fentanyl infusion d/t vent asynchrony, pain from liver tx Now transitioned to patch, infusion stopped 11/13 -- continue fentanyl patch (100mcg) Renal insufficiency 10/05/2015 10/08/2015 Overview: Secondary to hypotension Baseline Scr 0.66, now down to 0.83 Making good UO -- monitor renal indices Stress hyperglycemia 10/05/2015 04/22/2017 Overview: -- Adequate glycemic control with SSI Moderate protein-calorie malnutrition 10/05/2015 04/22/2017 Overview: Tolerating goal tube feeds Osmolite 1.2 @ 70 Prealbumin 26, transferrin 185 -- continue TF with fiber and beneprotien and full liquid diet -- nutrition following Abdominal distension 09/12/2015 04/22/2017 Overview: - concerning given weight gain of 30 lb from 09/04 - CT abdomen on last admission showed tissue edema> ascites, concern for third spacing in the abdominal wall tissue - no evidence of active infection, however, currently pancytopenia - was taking Lasix 20 mg PO every other day and spironolactone 50 mg PO daily - Liver vascular U/S demonstrates patent vasculature Plan - diuresis with Lasix 40 mg PO BID and spironolactone 100 mg PO daily - paracentesis as needed for respiratory function Liver transplant candidate 08/17/201504/22 Hyperammonemia 07/20/2015 04/22/2017 SUMMARY 06/14/2015 09/12/2015 Overview: Mr. 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 SOB (shortness of breath) 06/14/20152016 Overview: Started after dry run Possibly irritated by catheter? Systolic murmur also heard Chest x-ray and CT PE negative Currently at baseline New valvular lesion vs clot? -Echocardiogram -Doppler study -Observe for now Hepatic cirrhosis 06/14/2015 04/22/2017 Overview: #Cirrhosis -Continue lactulose, rifaximin -Continue aldactone Infection of other external stoma of urinary tra ct 05/17/2015 04/22/2017 UTI (lower urinary tract infection) 04/08/2015 04/22/2017 Overview: Was complaining of dysuria. UA positive with leukoesterase and Was started of ceftriaxone at OSH. Received 2 dosages here yesterday and one today. Will finish treatment for complicated UTI at home with cipro 500BID Hepatic encephalopathy 04/08/2015 7 Overview: On lactulose zinc Rifaximin Fever, low grade 11/03/2014 04/22/2017 Overview: Low grade fever on presentation UA clean Plan - Blood cx ngtd - afebrile since SUMMARY 08/31/2014 07/24/2016 Overview: The patient is a 50 yo male with a past medical history of HCV/ETOH Liver Cirrhosis c/b hepatopulmonary syndrome, hypersplenism, HE, Grade I EV, pulmonary sarcoidosis who presents with acute weight gain, abdominal distension, and SOB Fever and chills 08/31/2014 04/22/2017 Overview: Tmax 38.7 this AM; pt reports recent history of tooth extraction One time fever yesterday Received 2 time cefazolin after PFO closure. Plan: -UA, BCxx2 - NG till now -will hold off on abx for now and observe Hepatopulmonary syndrome 03/12/2014 018 Overview: History of hepatopulmonary syndrome with ~45.2% shunt, pulmonary sarcoidosis requiring home O2 6-10 liters and mild pulmonary HTN Preop PaO2 ~55 on RA Profound hypoxia postoperatively requiring max vent support with high PEEP, heavy sedation/paralytics, flolan, nitric oxide (off since 10/26) Course c/b Right lung Pneumothorax, resp failure requiring trach 11/01 Decompensation 11/04 secondary to narcotic withdrawal +/- sepsis-->Drastically improved with fentanyl infusion, ATB. Updated echo 11/15 with EF 55%, normal RV Currently doing great, on continuous trach collar with passy etta valve, and diet -- Goal sats 85% -- Continue TC, PMV, OOB Bicytopenia 03/12/2014 04/22/2017 Overview: He has plat count of 20k and WCC of around 1000 His neutropenia is likely 2/2 to INF His thrombocytopenia is likley 2/2 to his cirrhosis Plan: Watch, transfuse plats if <10k or bleeding Pancytopenia 03/11/2014 03/12/2014 Hypoxemia 03/11/2014 10/15/2015 Overview: Due to underlying HPS Now on 100% Fio2 with last PaO2 60, Nitric oxide started 10/08, at 40 PPM. O2 sats maintaining in 80s CTS consulted for ECMO evaluation -- Given profound thrombocytopenia and grave condition ECMO not recommended -- Continue nitric oxide -- lung protective ventilation -- increased I:E ratio (at 2.4:1), paralyze with rocuronium if needed -- goal of O2 sats in 70s permissible COPD (chronic obstructive pulmonary disease) 03/12/2014 Coagulopathy 03/11/2014 04/22/2017 Syncope 01/03/2014 04/22/2017 Epididymitis 11/24/2013 04/22/2017 Testalgia 11/24/2013 04/22/2017 Thrombocytopenia 08/20/2009 04/22/2017 Overview: Platelets 96k today, received platelets 10/11 prior to liver biopsy. no obvious bleeding -- monitor CBC, coags -- transfuse as required -- monitor for bleeding -- transfuse plts prior to invasive procedures Hepatitis C 08/20/2009 11/03/2014 Cirrhosis 04/22/2017 Overview: Secondary to alcohol use and HCV complicated by ascites, PSE (on lactulose, rifaximin) and hepatopulmonary syndrome on home O2 s/p OLT on 10/03/15 Concern for rejection (humoral), now s/p thymo, IVIG, plasmapheresis 10/15 and 10/16 completed -hydrocortisone (switched from prednisone) now tapering down - MMF - FK documented as of this encounter (statuses as of 12/10/2021) [facility] History of Past illness Narrative* Problem Noted Date Resolved Date Hilar adenopathy 07/09/2018 08/19/2018 Last Assessment & Plan: Assessment: CT A/P on Admission shows Significant subcarinal and bilateral hilar adenopathy on the lower images through the chest. Lymphoproliferative disease suspected He does have a hx of sarcoid But no recent CT chest/CXR to compare. CT chest shows SPLENOMEGALY AND NUMEROUS ENLARGED MEDIASTINAL AND BILATERAL HILAR LYMPH NODES, INCREASED IN SIZE SINCE 2016. THE DIFFERENTIAL DIAGNOSIS INCLUDES SARCOIDOSIS AND LYMPHOPROLIFERATIVE DISEASE. PLAN: -Transfer to [facility] for further evaluation by oncology per ID recommedation. Nausea & vomiting 07/09/2018 07/28/2018 Last Assessment & Plan: Assessment: Patient notes off and on nausea for one month. Also notes worsening control of his reflux symptoms. CTA/P shows significant subcarinal and bilateral hilar adenopathy and new subtle intrahepatic biliary dilatation and common duct dilatation . Obstructing lesion must be excluded, however.Splenic enlargement PLAN: -Increase protonix to 40mg bid -Zofran PRN for N/V -GI consult pending. Cellulitis 07/09/2018 07/13/2018 Ventral hernia without obstruction or gangrene 0 03/24/2017 04/22/2017 Lower abdominal pain 07/23/2016 04/22/2017 Opioid withdrawal 11/09/2015 04/22/2017 Overview: Thursday with opioid withdrawal after attempted discontinuation of fentanyl Resolution of symptoms after re-starting fentanyl -- Continue fentanyl patch with prn IVP fentanyl for breakthrough pain -- Drip stopped 3/2 Respiratory failure, post-operative 10/22/2015 04/22/2017 Overview: Pt intubated for OLT on 10/03/15, remained intubated d/t severe hypoxia (see hepato pulmonary syndrome) 11/01 s/p tracheostomy Very weak and debilitated, profound ICU neuromyopathy Currently improved, toleratingTC, passy etta valve capped -- continue trach collar, PMV Acute pneumothorax 10/17/2015 04/22/2017 Prerenal azotemia 10/17/2015 10/24/2015 Overview: Bun/ Creat ratio now trending down. Hypernatremia resolved -- trend Renal indices -- lasix 20 mg q8 Acute pulmonary embolism 10/17/2015 017 Spontaneous pneumothorax 10/16/2015 017 Overview: Pneumothorax discovered on CT chest 10/15 in setting of high PEEP requirements s/p chest tube placements x2 Last CT removed 11/02 CXR with small persistent Rt. Apical pneumothorax- not appeciated on today's CXR --continue to follow daily CXRs Pneumonia, organism unspecified(486) 10/16/2015 11/02/2015 Overview: CT of chest 10/15 shows RLL consolidation suspicious for pneumonia. Completed course of vanco and meropenem continuing micfungin. Sputum culture from 10/09 shows normal respiratory erum. legionella urinary antigen negative --ID following Sepsis due to other etiology 10/15/201505/2017 Overview: Has completed empiric courses of antibiotics for persistent low grade fevers and acute decompensation No obvious source of infection identified per extensive ID workup Vanco d/c 10/25, Meropenem d/c 10/26 11/04 Acute decompensation (fevers 11/05) empiric pip-tazo, vanc, micafungin added--> off since 11/11 (cultures negative) CT chest/ab/pelvis (11/08) with no evidence of infective process -- continue to monitor off ATB Postoperative shock 10/09/2015 04/22/2017 Overview: Shock, hypotension, fevers with increasing leukocytosis in setting of liver transplant, hepatopulmonary syndrome, ARDS, hypoxia. Profound hypoxia requiring nitric oxide therapy. Required low dose levo for BP support, now off. Concern for sepsis, blood cultures negative to date, vanco and zosyn started empirically 10/08. Procalcitonin 1.06. Lacate 1.8 -- Follow cultures -- continue vanco and zosyn -- levo for BP support (avoid fluid boluses if hypotensive) Electrolyte and fluid disorder 10/07/2015 0 04/22/2017 Overview: Hypomagnesemia repleted, hyperphos -- monitor and replete lytes daily -- increase daily PO mag oxide to 800 mg TID New onset seizure 10/05/2015 11/22/2019 Overview: Seizure activity 10/05, BEM supported the dx of cortical dysfunction in the left hemisphere with potential epileptogenicity in the left fronto-central region CT head negative for acute process, neurology consulted, loaded with Keppra Currently alert, follows commands -- weaned to Keppra 500mg bid -- neurology recommending follow up with epilepsy as outpatient ARDS (adult respiratory distress syndrome) 10/0504/22/2017 Overview: Hx of hepatopulmonary syndrome, pulmonary sarcoidosis requiring home O2 6-10 liters Pulmonary HTN with ~45% shunt. Pre-op PaO2 ~55 on RA CXR now with bilateral fluffy infiltrates / ARDS w/ pulmonary edema Desaturates with movement, turning, suctioning. Space = 60% today, with compliance ~45 -- maintain aggressive vent support (100% FiO2, wean PEEP is able as higher PEEP to increase shunt) -- lung protective strategies - Vt 6ml/kg ideal body weight (~350ml) -- trach on hold while unstable -- lasix TID -- Continue Nitric oxide -- increased I:E ratio -- avoid fluid boluses for hypotension - use pressors if needed -- sputum sent for culture Postoperative anemia due to acute blood loss 04/22/2017 Overview: S/P liver transplant with EBL 17 L c/b thrombocytopenia, coagulopahty and OP bleeding requiring intra-op nasal and pharyngeal packing Last transfused 10/08 2U PRBCs. 10/10: ENT removed nasal merocel. Clots in both nasopharyxes. No reinsertion of nasal tubes. -- monitor CBC and coags -- transfuse as required Agitation requiring sedation protocol 10/05/2015 04/22/2017 Overview: Required prolonged neuromuscular blockade with deep sedation secondary to increased WOB, breath stacking and hypoxia After discontinuation, he has had difficultly controlling agitation, likely opioid withdrawl. Had required precedex, fentanyl patch, prn haldol, seroquel Currently on seroquel, fentanyl patch Has been awake and alert, very cooperative -- continue on decreased TID seroquel dosing of 25mg TID and 150 mg qHS -- continue with fentanyl patch Acute post-operative pain 10/05/20152016 Overview: Was on prolonged fentanyl infusion d/t vent asynchrony, pain from liver tx Now transitioned to patch, infusion stopped 11/13 -- continue fentanyl patch (100mcg) Renal insufficiency 10/05/2015 10/08/2015 Overview: Secondary to hypotension Baseline Scr 0.66, now down to 0.83 Making good UO -- monitor renal indices Stress hyperglycemia 10/05/2015 04/22/2017 Overview: -- Adequate glycemic control with SSI Moderate protein-calorie malnutrition 10/05/2015 04/22/2017 Overview: Tolerating goal tube feeds Osmolite 1.2 @ 70 Prealbumin 26, transferrin 185 -- continue TF with fiber and beneprotien and full liquid diet -- nutrition following Abdominal distension 09/12/2015 04/22/2017 Overview: - concerning given weight gain of 30 lb from 09/04 - CT abdomen on last admission showed tissue edema> ascites, concern for third spacing in the abdominal wall tissue - no evidence of active infection, however, currently pancytopenia - was taking Lasix 20 mg PO every other day and spironolactone 50 mg PO daily - Liver vascular U/S demonstrates patent vasculature Plan - diuresis with Lasix 40 mg PO BID and spironolactone 100 mg PO daily - paracentesis as needed for respiratory function Liver transplant candidate 08/17/201504/22 Hyperammonemia 07/20/2015 04/22/2017 SUMMARY 06/14/2015 09/12/2015 Overview: Mr. 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 SOB (shortness of breath) 06/14/20152016 Overview: Started after dry run Possibly irritated by catheter? Systolic murmur also heard Chest x-ray and CT PE negative Currently at baseline New valvular lesion vs clot? -Echocardiogram -Doppler study -Observe for now Hepatic cirrhosis 06/14/2015 04/22/2017 Overview: #Cirrhosis -Continue lactulose, rifaximin -Continue aldactone Infection of other external stoma of urinary tra ct 05/17/2015 04/22/2017 UTI (lower urinary tract infection) 04/08/2015 04/22/2017 Overview: Was complaining of dysuria. UA positive with leukoesterase and Was started of ceftriaxone at OSH. Received 2 dosages here yesterday and one today. Will finish treatment for complicated UTI at home with cipro 500BID Hepatic encephalopathy 04/08/2015 7 Overview: On lactulose zinc Rifaximin Fever, low grade 11/03/2014 04/22/2017 Overview: Low grade fever on presentation UA clean Plan - Blood cx ngtd - afebrile since SUMMARY 08/31/2014 07/24/2016 Overview: The patient is a 50 yo male with a past medical history of HCV/ETOH Liver Cirrhosis c/b hepatopulmonary syndrome, hypersplenism, HE, Grade I EV, pulmonary sarcoidosis who presents with acute weight gain, abdominal distension, and SOB Fever and chills 08/31/2014 04/22/2017 Overview: Tmax 38.7 this AM; pt reports recent history of tooth extraction One time fever yesterday Received 2 time cefazolin after PFO closure. Plan: -UA, BCxx2 - NG till now -will hold off on abx for now and observe Hepatopulmonary syndrome 03/12/2014 018 Overview: History of hepatopulmonary syndrome with ~45.2% shunt, pulmonary sarcoidosis requiring home O2 6-10 liters and mild pulmonary HTN Preop PaO2 ~55 on RA Profound hypoxia postoperatively requiring max vent support with high PEEP, heavy sedation/paralytics, flolan, nitric oxide (off since 10/26) Course c/b Right lung Pneumothorax, resp failure requiring trach 11/01 Decompensation 11/04 secondary to narcotic withdrawal +/- sepsis-->Drastically improved with fentanyl infusion, ATB. Updated echo 11/15 with EF 55%, normal RV Currently doing great, on continuous trach collar with passy etta valve, and diet -- Goal sats 85% -- Continue TC, PMV, OOB Bicytopenia 03/12/2014 04/22/2017 Overview: He has plat count of 20k and WCC of around 1000 His neutropenia is likely 2/2 to INF His thrombocytopenia is likley 2/2 to his cirrhosis Plan: Watch, transfuse plats if <10k or bleeding Pancytopenia 03/11/2014 03/12/2014 Hypoxemia 03/11/2014 10/15/2015 Overview: Due to underlying HPS Now on 100% Fio2 with last PaO2 60, Nitric oxide started 10/08, at 40 PPM. O2 sats maintaining in 80s CTS consulted for ECMO evaluation -- Given profound thrombocytopenia and grave condition ECMO not recommended -- Continue nitric oxide -- lung protective ventilation -- increased I:E ratio (at 2.4:1), paralyze with rocuronium if needed -- goal of O2 sats in 70s permissible COPD (chronic obstructive pulmonary disease) 03/12/2014 Coagulopathy 03/11/2014 04/22/2017 Syncope 01/03/2014 04/22/2017 Epididymitis 11/24/2013 04/22/2017 Testalgia 11/24/2013 04/22/2017 Thrombocytopenia 08/20/2009 04/22/2017 Overview: Platelets 96k today, received platelets 10/11 prior to liver biopsy. no obvious bleeding -- monitor CBC, coags -- transfuse as required -- monitor for bleeding -- transfuse plts prior to invasive procedures Hepatitis C 08/20/2009 11/03/2014 Cirrhosis 04/22/2017 Overview: Secondary to alcohol use and HCV complicated by ascites, PSE (on lactulose, rifaximin) and hepatopulmonary syndrome on home O2 s/p OLT on 10/03/15 Concern for rejection (humoral), now s/p thymo, IVIG, plasmapheresis 10/15 and 10/16 completed -hydrocortisone (switched from prednisone) now tapering down - MMF - FK documented as of this encounter (statuses as of 12/10/2021) [facility] History of Past illness Narrative* Problem Noted Date Resolved Date Hilar adenopathy 07/09/2018 08/19/2018 Last Assessment & Plan: Assessment: CT A/P on Admission shows Significant subcarinal and bilateral hilar adenopathy on the lower images through the chest. Lymphoproliferative disease suspected He does have a hx of sarcoid But no recent CT chest/CXR to compare. CT chest shows SPLENOMEGALY AND NUMEROUS ENLARGED MEDIASTINAL AND BILATERAL HILAR LYMPH NODES, INCREASED IN SIZE SINCE 2016. THE DIFFERENTIAL DIAGNOSIS INCLUDES SARCOIDOSIS AND LYMPHOPROLIFERATIVE DISEASE. PLAN: -Transfer to [facility] for further evaluation by oncology per ID recommedation. Nausea & vomiting 07/09/2018 07/28/2018 Last Assessment & Plan: Assessment: Patient notes off and on nausea for one month. Also notes worsening control of his reflux symptoms. CTA/P shows significant subcarinal and bilateral hilar adenopathy and new subtle intrahepatic biliary dilatation and common duct dilatation . Obstructing lesion must be excluded, however.Splenic enlargement PLAN: -Increase protonix to 40mg bid -Zofran PRN for N/V -GI consult pending. Cellulitis 07/09/2018 07/13/2018 Ventral hernia without obstruction or gangrene 0 03/24/2017 04/22/2017 Lower abdominal pain 07/23/2016 04/22/2017 Opioid withdrawal 11/09/2015 04/22/2017 Overview: Thursday with opioid withdrawal after attempted discontinuation of fentanyl Resolution of symptoms after re-starting fentanyl -- Continue fentanyl patch with prn IVP fentanyl for breakthrough pain -- Drip stopped 3/2 Respiratory failure, post-operative 10/22/2015 04/22/2017 Overview: Pt intubated for OLT on 10/03/15, remained intubated d/t severe hypoxia (see hepato pulmonary syndrome) 11/01 s/p tracheostomy Very weak and debilitated, profound ICU neuromyopathy Currently improved, toleratingTC, passy etta valve capped -- continue trach collar, PMV Acute pneumothorax 10/17/2015 04/22/2017 Prerenal azotemia 10/17/2015 10/24/2015 Overview: Bun/ Creat ratio now trending down. Hypernatremia resolved -- trend Renal indices -- lasix 20 mg q8 Acute pulmonary embolism 10/17/2015 017 Spontaneous pneumothorax 10/16/2015 017 Overview: Pneumothorax discovered on CT chest 10/15 in setting of high PEEP requirements s/p chest tube placements x2 Last CT removed 11/02 CXR with small persistent Rt. Apical pneumothorax- not appeciated on today's CXR --continue to follow daily CXRs Pneumonia, organism unspecified([phone]) 10/16/2015 11/02/2015 Overview: CT of chest 10/15 shows RLL consolidation suspicious for pneumonia. Completed course of vanco and meropenem continuing micfungin. Sputum culture from 10/09 shows normal respiratory erum. legionella urinary antigen negative --ID following Sepsis due to other etiology 10/15/201505/2017 Overview: Has completed empiric courses of antibiotics for persistent low grade fevers and acute decompensation No obvious source of infection identified per extensive ID workup Vanco d/c 10/25, Meropenem d/c 10/26 11/04 Acute decompensation (fevers 11/05) empiric pip-tazo, vanc, micafungin added--> off since 11/11 (cultures negative) CT chest/ab/pelvis (11/08) with no evidence of infective process -- continue to monitor off ATB Postoperative shock 10/09/2015 04/22/2017 Overview: Shock, hypotension, fevers with increasing leukocytosis in setting of liver transplant, hepatopulmonary syndrome, ARDS, hypoxia. Profound hypoxia requiring nitric oxide therapy. Required low dose levo for BP support, now off. Concern for sepsis, blood cultures negative to date, vanco and zosyn started empirically 10/08. Procalcitonin 1.06. Lacate 1.8 -- Follow cultures -- continue vanco and zosyn -- levo for BP support (avoid fluid boluses if hypotensive) Electrolyte and fluid disorder 10/07/2015 0 04/22/2017 Overview: Hypomagnesemia repleted, hyperphos -- monitor and replete lytes daily -- increase daily PO mag oxide to 800 mg TID New onset seizure 10/05/2015 11/22/2019 Overview: Seizure activity 10/05, BEM supported the dx of cortical dysfunction in the left hemisphere with potential epileptogenicity in the left fronto-central region CT head negative for acute process, neurology consulted, loaded with Keppra Currently alert, follows commands -- weaned to Keppra 500mg bid -- neurology recommending follow up with epilepsy as outpatient ARDS (adult respiratory distress syndrome) 10/0504/22/2017 Overview: Hx of hepatopulmonary syndrome, pulmonary sarcoidosis requiring home O2 6-10 liters Pulmonary HTN with ~45% shunt. Pre-op PaO2 ~55 on RA CXR now with bilateral fluffy infiltrates / ARDS w/ pulmonary edema Desaturates with movement, turning, suctioning. Space = 60% today, with compliance ~45 -- maintain aggressive vent support (100% FiO2, wean PEEP is able as higher PEEP to increase shunt) -- lung protective strategies - Vt 6ml/kg ideal body weight (~350ml) -- trach on hold while unstable -- lasix TID -- Continue Nitric oxide -- increased I:E ratio -- avoid fluid boluses for hypotension - use pressors if needed -- sputum sent for culture Postoperative anemia due to acute blood loss 04/22/2017 Overview: S/P liver transplant with EBL 17 L c/b thrombocytopenia, coagulopahty and OP bleeding requiring intra-op nasal and pharyngeal packing Last transfused 10/08 2U PRBCs. 10/10: ENT removed nasal merocel. Clots in both nasopharyxes. No reinsertion of nasal tubes. -- monitor CBC and coags -- transfuse as required Agitation requiring sedation protocol 10/05/2015 04/22/2017 Overview: Required prolonged neuromuscular blockade with deep sedation secondary to increased WOB, breath stacking and hypoxia After discontinuation, he has had difficultly controlling agitation, likely opioid withdrawl. Had required precedex, fentanyl patch, prn haldol, seroquel Currently on seroquel, fentanyl patch Has been awake and alert, very cooperative -- continue on decreased TID seroquel dosing of 25mg TID and 150 mg qHS -- continue with fentanyl patch Acute post-operative pain 10/05/20152016 Overview: Was on prolonged fentanyl infusion d/t vent asynchrony, pain from liver tx Now transitioned to patch, infusion stopped 11/13 -- continue fentanyl patch (100mcg) Renal insufficiency 10/05/2015 10/08/2015 Overview: Secondary to hypotension Baseline Scr 0.66, now down to 0.83 Making good UO -- monitor renal indices Stress hyperglycemia 10/05/2015 04/22/2017 Overview: -- Adequate glycemic control with SSI Moderate protein-calorie malnutrition 10/05/2015 04/22/2017 Overview: Tolerating goal tube feeds Osmolite 1.2 @ 70 Prealbumin 26, transferrin 185 -- continue TF with fiber and beneprotien and full liquid diet -- nutrition following Abdominal distension 09/12/2015 04/22/2017 Overview: - concerning given weight gain of 30 lb from 09/04 - CT abdomen on last admission showed tissue edema> ascites, concern for third spacing in the abdominal wall tissue - no evidence of active infection, however, currently pancytopenia - was taking Lasix 20 mg PO every other day and spironolactone 50 mg PO daily - Liver vascular U/S demonstrates patent vasculature Plan - diuresis with Lasix 40 mg PO BID and spironolactone 100 mg PO daily - paracentesis as needed for respiratory function Liver transplant candidate 08/17/201504/22 Hyperammonemia 07/20/2015 04/22/2017 SUMMARY 06/14/2015 09/12/2015 Overview: Mr. 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 SOB (shortness of breath) 06/14/20152016 Overview: Started after dry run Possibly irritated by catheter? Systolic murmur also heard Chest x-ray and CT PE negative Currently at baseline New valvular lesion vs clot? -Echocardiogram -Doppler study -Observe for now Hepatic cirrhosis 06/14/2015 04/22/2017 Overview: #Cirrhosis -Continue lactulose, rifaximin -Continue aldactone Infection of other external stoma of urinary tra ct 05/17/2015 04/22/2017 UTI (lower urinary tract infection) 04/08/2015 04/22/2017 Overview: Was complaining of dysuria. UA positive with leukoesterase and Was started of ceftriaxone at OSH. Received 2 dosages here yesterday and one today. Will finish treatment for complicated UTI at home with cipro 500BID Hepatic encephalopathy 04/08/2015 7 Overview: On lactulose zinc Rifaximin Fever, low grade 11/03/2014 04/22/2017 Overview: Low grade fever on presentation UA clean Plan - Blood cx ngtd - afebrile since SUMMARY 08/31/2014 07/24/2016 Overview: The patient is a 50 yo male with a past medical history of HCV/ETOH Liver Cirrhosis c/b hepatopulmonary syndrome, hypersplenism, HE, Grade I EV, pulmonary sarcoidosis who presents with acute weight gain, abdominal distension, and SOB Fever and chills 08/31/2014 04/22/2017 Overview: Tmax 38.7 this AM; pt reports recent history of tooth extraction One time fever yesterday Received 2 time cefazolin after PFO closure. Plan: -UA, BCxx2 - NG till now -will hold off on abx for now and observe Hepatopulmonary syndrome 03/12/2014 018 Overview: History of hepatopulmonary syndrome with ~45.2% shunt, pulmonary sarcoidosis requiring home O2 6-10 liters and mild pulmonary HTN Preop PaO2 ~55 on RA Profound hypoxia postoperatively requiring max vent support with high PEEP, heavy sedation/paralytics, flolan, nitric oxide (off since 10/26) Course c/b Right lung Pneumothorax, resp failure requiring trach 11/01 Decompensation 11/04 secondary to narcotic withdrawal +/- sepsis-->Drastically improved with fentanyl infusion, ATB. Updated echo 11/15 with EF 55%, normal RV Currently doing great, on continuous trach collar with passy etta valve, and diet -- Goal sats 85% -- Continue TC, PMV, OOB Bicytopenia 03/12/2014 04/22/2017 Overview: He has plat count of 20k and WCC of around 1000 His neutropenia is likely 2/2 to INF His thrombocytopenia is likley 2/2 to his cirrhosis Plan: Watch, transfuse plats if <10k or bleeding Pancytopenia 03/11/2014 03/12/2014 Hypoxemia 03/11/2014 10/15/2015 Overview: Due to underlying HPS Now on 100% Fio2 with last PaO2 60, Nitric oxide started 10/08, at 40 PPM. O2 sats maintaining in 80s CTS consulted for ECMO evaluation -- Given profound thrombocytopenia and grave condition ECMO not recommended -- Continue nitric oxide -- lung protective ventilation -- increased I:E ratio (at 2.4:1), paralyze with rocuronium if needed -- goal of O2 sats in 70s permissible COPD (chronic obstructive pulmonary disease) 03/12/2014 Coagulopathy 03/11/2014 04/22/2017 Syncope 01/03/2014 04/22/2017 Epididymitis 11/24/2013 04/22/2017 Testalgia 11/24/2013 04/22/2017 Thrombocytopenia 08/20/2009 04/22/2017 Overview: Platelets 96k today, received platelets 10/11 prior to liver biopsy. no obvious bleeding -- monitor CBC, coags -- transfuse as required -- monitor for bleeding -- transfuse plts prior to invasive procedures Hepatitis C 08/20/2009 11/03/2014 Cirrhosis 04/22/2017 Overview: Secondary to alcohol use and HCV complicated by ascites, PSE (on lactulose, rifaximin) and hepatopulmonary syndrome on home O2 s/p OLT on 10/03/15 Concern for rejection (humoral), now s/p thymo, IVIG, plasmapheresis 10/15 and 10/16 completed -hydrocortisone (switched from prednisone) now tapering down - MMF - FK documented as of this encounter (statuses as of 12/13/2021) [facility] History of Past illness Narrative* Problem Noted Date Resolved Date Hilar adenopathy 07/09/2018 08/19/2018 Last Assessment & Plan: Assessment: CT A/P on Admission shows Significant subcarinal and bilateral hilar adenopathy on the lower images through the chest. Lymphoproliferative disease suspected He does have a hx of sarcoid But no recent CT chest/CXR to compare. CT chest shows SPLENOMEGALY AND NUMEROUS ENLARGED MEDIASTINAL AND BILATERAL HILAR LYMPH NODES, INCREASED IN SIZE SINCE 2016. THE DIFFERENTIAL DIAGNOSIS INCLUDES SARCOIDOSIS AND LYMPHOPROLIFERATIVE DISEASE. PLAN: -Transfer to [facility] for further evaluation by oncology per ID recommedation. Nausea & vomiting 07/09/2018 07/28/2018 Last Assessment & Plan: Assessment: Patient notes off and on nausea for one month. Also notes worsening control of his reflux symptoms. CTA/P shows significant subcarinal and bilateral hilar adenopathy and new subtle intrahepatic biliary dilatation and common duct dilatation . Obstructing lesion must be excluded, however.Splenic enlargement PLAN: -Increase protonix to 40mg bid -Zofran PRN for N/V -GI consult pending. Cellulitis 07/09/2018 07/13/2018 Abdominal wall cellulitis 12/01/20172021 Last Assessment & Plan: Assessment: Second Episode this year . Likely due to his constant picking of the skin of his abdomen. He is HDS, no leucocytosis,crp 2.6,ESR 2,lactate normal CTA/P shows no abscess nor cellulitis . PLAN: Continue ancef started in the ER. Continue bactrim as scheduled for prophylaxis - due to hx of liver transplant PRN morphine for pain. ID consult (because of his immunocompromised state - hx of liver transplant/ommunesuppresants) Wound care consult (re:open areas on his abdomen due to his scratching) F/up on blood Culture Ventral hernia without obstruction or gangrene 0 03/24/2017 04/22/2017 Lower abdominal pain 07/23/2016 04/22/2017 Opioid withdrawal 11/09/2015 04/22/2017 Overview: Thursday with opioid withdrawal after attempted discontinuation of fentanyl Resolution of symptoms after re-starting fentanyl -- Continue fentanyl patch with prn IVP fentanyl for breakthrough pain -- Drip stopped / Respiratory failure, post-operative 10/22/2015 04/22/2017 Overview: Pt intubated for OLT on 10/03/15, remained intubated d/t severe hypoxia (see hepato pulmonary syndrome) 11/01 s/p tracheostomy Very weak and debilitated, profound ICU neuromyopathy Currently improved, toleratingTC, passy etta valve capped -- continue trach collar, PMV Acute pneumothorax 10/17/2015 04/22/2017 Prerenal azotemia 10/17/2015 10/24/2015 Overview: Bun/ Creat ratio now trending down. Hypernatremia resolved -- trend Renal indices -- lasix 20 mg q8 Acute pulmonary embolism 10/17/2015 017 Spontaneous pneumothorax 10/16/2015 017 Overview: Pneumothorax discovered on CT chest 10/15 in setting of high PEEP requirements s/p chest tube placements x2 Last CT removed 11/02 CXR with small persistent Rt. Apical pneumothorax- not appeciated on today's CXR --continue to follow daily CXRs Pneumonia, organism unspecified(486) 10/16/2015 11/02/2015 Overview: CT of chest 10/15 shows RLL consolidation suspicious for pneumonia. Completed course of vanco and meropenem continuing micfungin. Sputum culture from 10/09 shows normal respiratory erum. legionella urinary antigen negative --ID following Sepsis due to other etiology 10/15/201505/2017 Overview: Has completed empiric courses of antibiotics for persistent low grade fevers and acute decompensation No obvious source of infection identified per extensive ID workup Vanco d/c 10/25, Meropenem d/c 10/26 11/04 Acute decompensation (fevers 11/05) empiric pip-tazo, vanc, micafungin added--> off since 11/11 (cultures negative) CT chest/ab/pelvis (11/08) with no evidence of infective process -- continue to monitor off ATB Postoperative shock 10/09/2015 04/22/2017 Overview: Shock, hypotension, fevers with increasing leukocytosis in setting of liver transplant, hepatopulmonary syndrome, ARDS, hypoxia. Profound hypoxia requiring nitric oxide therapy. Required low dose levo for BP support, now off. Concern for sepsis, blood cultures negative to date, vanco and zosyn started empirically 10/08. Procalcitonin 1.06. Lacate 1.8 -- Follow cultures -- continue vanco and zosyn -- levo for BP support (avoid fluid boluses if hypotensive) Electrolyte and fluid disorder 10/07/2015 0 04/22/2017 Overview: Hypomagnesemia repleted, hyperphos -- monitor and replete lytes daily -- increase daily PO mag oxide to 800 mg TID New onset seizure 10/05/2015 11/22/2019 Overview: Seizure activity 10/05, BEM supported the dx of cortical dysfunction in the left hemisphere with potential epileptogenicity in the left fronto-central region CT head negative for acute process, neurology consulted, loaded with Keppra Currently alert, follows commands -- weaned to Keppra 500mg bid -- neurology recommending follow up with epilepsy as outpatient ARDS (adult respiratory distress syndrome) 10/0504/22/2017 Overview: Hx of hepatopulmonary syndrome, pulmonary sarcoidosis requiring home O2 6-10 liters Pulmonary HTN with ~45% shunt. Pre-op PaO2 ~55 on RA CXR now with bilateral fluffy infiltrates / ARDS w/ pulmonary edema Desaturates with movement, turning, suctioning. Space = 60% today, with compliance ~45 -- maintain aggressive vent support (100% FiO2, wean PEEP is able as higher PEEP to increase shunt) -- lung protective strategies - Vt 6ml/kg ideal body weight (~350ml) -- trach on hold while unstable -- lasix TID -- Continue Nitric oxide -- increased I:E ratio -- avoid fluid boluses for hypotension - use pressors if needed -- sputum sent for culture Postoperative anemia due to acute blood loss 04/22/2017 Overview: S/P liver transplant with EBL 17 L c/b thrombocytopenia, coagulopahty and OP bleeding requiring intra-op nasal and pharyngeal packing Last transfused 10/08 2U PRBCs. 10/10: ENT removed nasal merocel. Clots in both nasopharyxes. No reinsertion of nasal tubes. -- monitor CBC and coags -- transfuse as required Agitation requiring sedation protocol 10/05/2015 04/22/2017 Overview: Required prolonged neuromuscular blockade with deep sedation secondary to increased WOB, breath stacking and hypoxia After discontinuation, he has had difficultly controlling agitation, likely opioid withdrawl. Had required precedex, fentanyl patch, prn haldol, seroquel Currently on seroquel, fentanyl patch Has been awake and alert, very cooperative -- continue on decreased TID seroquel dosing of 25mg TID and 150 mg qHS -- continue with fentanyl patch Acute post-operative pain 10/05/20152016 Overview: Was on prolonged fentanyl infusion d/t vent asynchrony, pain from liver tx Now transitioned to patch, infusion stopped 11/13 -- continue fentanyl patch (100mcg) Renal insufficiency 10/05/2015 10/08/2015 Overview: Secondary to hypotension Baseline Scr 0.66, now down to 0.83 Making good UO -- monitor renal indices Stress hyperglycemia 10/05/2015 04/22/2017 Overview: -- Adequate glycemic control with SSI Moderate protein-calorie malnutrition 10/05/2015 04/22/2017 Overview: Tolerating goal tube feeds Osmolite 1.2 @ 70 Prealbumin 26, transferrin 185 -- continue TF with fiber and beneprotien and full liquid diet -- nutrition following Abdominal distension 09/12/2015 04/22/2017 Overview: - concerning given weight gain of 30 lb from 09/04 - CT abdomen on last admission showed tissue edema> ascites, concern for third spacing in the abdominal wall tissue - no evidence of active infection, however, currently pancytopenia - was taking Lasix 20 mg PO every other day and spironolactone 50 mg PO daily - Liver vascular U/S demonstrates patent vasculature Plan - diuresis with Lasix 40 mg PO BID and spironolactone 100 mg PO daily - paracentesis as needed for respiratory function Liver transplant candidate 08/17/201504/22 Pain disorder with psychological factors 015 12/23/2021 Hyperammonemia 07/20/2015 04/22/2017 SUMMARY 06/14/2015 09/12/2015 Overview: Mr. 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 SOB (shortness of breath) 06/14/20152016 Overview: Started after dry run Possibly irritated by catheter? Systolic murmur also heard Chest x-ray and CT PE negative Currently at baseline New valvular lesion vs clot? -Echocardiogram -Doppler study -Observe for now Hepatic cirrhosis 06/14/2015 04/22/2017 Overview: #Cirrhosis -Continue lactulose, rifaximin -Continue aldactone Infection of other external stoma of urinary tra ct 05/17/2015 04/22/2017 UTI (lower urinary tract infection) 04/08/2015 04/22/2017 Overview: Was complaining of dysuria. UA positive with leukoesterase and Was started of ceftriaxone at OSH. Received 2 dosages here yesterday and one today. Will finish treatment for complicated UTI at home with cipro [id number] Hepatic encephalopathy 04/08/2015 7 Overview: On lactulose zinc Rifaximin Fever, low grade 11/03/2014 04/22/2017 Overview: Low grade fever on presentation UA clean Plan - Blood cx ngtd - afebrile since SUMMARY 08/31/2014 07/24/2016 Overview: The patient is a 50 yo male with a past medical history of HCV/ETOH Liver Cirrhosis c/b hepatopulmonary syndrome, hypersplenism, HE, Grade I EV, pulmonary sarcoidosis who presents with acute weight gain, abdominal distension, and SOB Fever and chills 08/31/2014 04/22/2017 Overview: Tmax 38.7 this AM; pt reports recent history of tooth extraction One time fever yesterday Received 2 time cefazolin after PFO closure. Plan: -UA, BCxx2 - NG till now -will hold off on abx for now and observe Retained dental root 08/15/2014 12/23/2021 Hepatopulmonary syndrome 03/12/2014 018 Overview: History of hepatopulmonary syndrome with ~45.2% shunt, pulmonary sarcoidosis requiring home O2 6-10 liters and mild pulmonary HTN Preop PaO2 ~55 on RA Profound hypoxia postoperatively requiring max vent support with high PEEP, heavy sedation/paralytics, flolan, nitric oxide (off since 10/26) Course c/b Right lung Pneumothorax, resp failure requiring trach 11/01 Decompensation 11/04 secondary to narcotic withdrawal +/- sepsis-->Drastically improved with fentanyl infusion, ATB. Updated echo 11/15 with EF 55%, normal RV Currently doing great, on continuous trach collar with passy etta valve, and diet -- Goal sats 85% -- Continue TC, PMV, OOB Bicytopenia 03/12/2014 04/22/2017 Overview: He has plat count of 20k and WCC of around 1000 His neutropenia is likely 2/2 to INF His thrombocytopenia is likley 2/2 to his cirrhosis Plan: Watch, transfuse plats if <10k or bleeding Pancytopenia 03/11/2014 03/12/2014 Hypoxemia 03/11/2014 10/15/2015 Overview: Due to underlying HPS Now on 100% Fio2 with last PaO2 60, Nitric oxide started 10/08, at 40 PPM. O2 sats maintaining in 80s CTS consulted for ECMO evaluation -- Given profound thrombocytopenia and grave condition ECMO not recommended -- Continue nitric oxide -- lung protective ventilation -- increased I:E ratio (at 2.4:1), paralyze with rocuronium if needed -- goal of O2 sats in 70s permissible COPD (chronic obstructive pulmonary disease) 03/12/2014 Coagulopathy 03/11/2014 04/22/2017 Syncope 01/03/2014 04/22/2017 Epididymitis 11/24/2013 04/22/2017 Testalgia 11/24/2013 04/22/2017 Thrombocytopenia 08/20/2009 04/22/2017 Overview: Platelets 96k today, received platelets 10/11 prior to liver biopsy. no obvious bleeding -- monitor CBC, coags -- transfuse as required -- monitor for bleeding -- transfuse plts prior to invasive procedures Hepatitis C 08/20/2009 11/03/2014 Cirrhosis 04/22/2017 Overview: Secondary to alcohol use and HCV complicated by ascites, PSE (on lactulose, rifaximin) and hepatopulmonary syndrome on home O2 s/p OLT on 10/03/15 Concern for rejection (humoral), now s/p thymo, IVIG, plasmapheresis 10/15 and 10/16 completed -hydrocortisone (switched from prednisone) now tapering down - MMF - FK documented as of this encounter (statuses as of 12/23/2021) [facility] History of Past illness Narrative* Problem Noted Date Resolved Date Hilar adenopathy 07/09/2018 08/19/2018 Last Assessment & Plan: Assessment: CT A/P on Admission shows Significant subcarinal and bilateral hilar adenopathy on the lower images through the chest. Lymphoproliferative disease suspected He does have a hx of sarcoid But no recent CT chest/CXR to compare. CT chest shows SPLENOMEGALY AND NUMEROUS ENLARGED MEDIASTINAL AND BILATERAL HILAR LYMPH NODES, INCREASED IN SIZE SINCE 2016. THE DIFFERENTIAL DIAGNOSIS INCLUDES SARCOIDOSIS AND LYMPHOPROLIFERATIVE DISEASE. PLAN: -Transfer to [facility] for further evaluation by oncology per ID recommedation. Nausea & vomiting 07/09/2018 07/28/2018 Last Assessment & Plan: Assessment: Patient notes off and on nausea for one month. Also notes worsening control of his reflux symptoms. CTA/P shows significant subcarinal and bilateral hilar adenopathy and new subtle intrahepatic biliary dilatation and common duct dilatation . Obstructing lesion must be excluded, however.Splenic enlargement PLAN: -Increase protonix to 40mg bid -Zofran PRN for N/V -GI consult pending. Cellulitis 07/09/2018 07/13/2018 Abdominal wall cellulitis 12/01/20172021 Last Assessment & Plan: Assessment: Second Episode this year . Likely due to his constant picking of the skin of his abdomen. He is HDS, no leucocytosis,crp 2.6,ESR 2,lactate normal CTA/P shows no abscess nor cellulitis . PLAN: Continue ancef started in the ER. Continue bactrim as scheduled for prophylaxis - due to hx of liver transplant PRN morphine for pain. ID consult (because of his immunocompromised state - hx of liver transplant/ommunesuppresants) Wound care consult (re:open areas on his abdomen due to his scratching) F/up on blood Culture Ventral hernia without obstruction or gangrene 0 03/24/2017 04/22/2017 Lower abdominal pain 07/23/2016 04/22/2017 Opioid withdrawal 11/09/2015 04/22/2017 Overview: Thursday with opioid withdrawal after attempted discontinuation of fentanyl Resolution of symptoms after re-starting fentanyl -- Continue fentanyl patch with prn IVP fentanyl for breakthrough pain -- Drip stopped 3/2 Respiratory failure, post-operative 10/22/2015 04/22/2017 Overview: Pt intubated for OLT on 10/03/15, remained intubated d/t severe hypoxia (see hepato pulmonary syndrome) 11/01 s/p tracheostomy Very weak and debilitated, profound ICU neuromyopathy Currently improved, toleratingTC, passy etta valve capped -- continue trach collar, PMV Acute pneumothorax 10/17/2015 04/22/2017 Prerenal azotemia 10/17/2015 10/24/2015 Overview: Bun/ Creat ratio now trending down. Hypernatremia resolved -- trend Renal indices -- lasix 20 mg q8 Acute pulmonary embolism 10/17/2015 017 Spontaneous pneumothorax 10/16/2015 017 Overview: Pneumothorax discovered on CT chest 10/15 in setting of high PEEP requirements s/p chest tube placements x2 Last CT removed 11/02 CXR with small persistent Rt. Apical pneumothorax- not appeciated on today's CXR --continue to follow daily CXRs Pneumonia, organism unspecified([phone]) 10/16/2015 11/02/2015 Overview: CT of chest 10/15 shows RLL consolidation suspicious for pneumonia. Completed course of vanco and meropenem continuing micfungin. Sputum culture from 10/09 shows normal respiratory erum. legionella urinary antigen negative --ID following Sepsis due to other etiology 10/15/201505/2017 Overview: Has completed empiric courses of antibiotics for persistent low grade fevers and acute decompensation No obvious source of infection identified per extensive ID workup Vanco d/c 2/11, Meropenem d/c 10/26 11/04 Acute decompensation (fevers 11/05) empiric pip-tazo, vanc, micafungin added--> off since 11/11 (cultures negative) CT chest/ab/pelvis (11/08) with no evidence of infective process -- continue to monitor off ATB Postoperative shock 10/09/2015 04/22/2017 Overview: Shock, hypotension, fevers with increasing leukocytosis in setting of liver transplant, hepatopulmonary syndrome, ARDS, hypoxia. Profound hypoxia requiring nitric oxide therapy. Required low dose levo for BP support, now off. Concern for sepsis, blood cultures negative to date, vanco and zosyn started empirically 10/08. Procalcitonin 1.06. Lacate 1.8 -- Follow cultures -- continue vanco and zosyn -- levo for BP support (avoid fluid boluses if hypotensive) Electrolyte and fluid disorder 10/07/2015 0 04/22/2017 Overview: Hypomagnesemia repleted, hyperphos -- monitor and replete lytes daily -- increase daily PO mag oxide to 800 mg TID New onset seizure 10/05/2015 11/22/2019 Overview: Seizure activity 10/05, BEM supported the dx of cortical dysfunction in the left hemisphere with potential epileptogenicity in the left fronto-central region CT head negative for acute process, neurology consulted, loaded with Keppra Currently alert, follows commands -- weaned to Keppra 500mg bid -- neurology recommending follow up with epilepsy as outpatient ARDS (adult respiratory distress syndrome) 10/0504/22/2017 Overview: Hx of hepatopulmonary syndrome, pulmonary sarcoidosis requiring home O2 6-10 liters Pulmonary HTN with ~45% shunt. Pre-op PaO2 ~55 on RA CXR now with bilateral fluffy infiltrates / ARDS w/ pulmonary edema Desaturates with movement, turning, suctioning. Space = 60% today, with compliance ~45 -- maintain aggressive vent support (100% FiO2, wean PEEP is able as higher PEEP to increase shunt) -- lung protective strategies - Vt 6ml/kg ideal body weight (~350ml) -- trach on hold while unstable -- lasix TID -- Continue Nitric oxide -- increased I:E ratio -- avoid fluid boluses for hypotension - use pressors if needed -- sputum sent for culture Postoperative anemia due to acute blood loss 04/22/2017 Overview: S/P liver transplant with EBL 17 L c/b thrombocytopenia, coagulopahty and OP bleeding requiring intra-op nasal and pharyngeal packing Last transfused 10/08 2U PRBCs. 10/10: ENT removed nasal merocel. Clots in both nasopharyxes. No reinsertion of nasal tubes. -- monitor CBC and coags -- transfuse as required Agitation requiring sedation protocol 10/05/2015 04/22/2017 Overview: Required prolonged neuromuscular blockade with deep sedation secondary to increased WOB, breath stacking and hypoxia After discontinuation, he has had difficultly controlling agitation, likely opioid withdrawl. Had required precedex, fentanyl patch, prn haldol, seroquel Currently on seroquel, fentanyl patch Has been awake and alert, very cooperative -- continue on decreased TID seroquel dosing of 25mg TID and 150 mg qHS -- continue with fentanyl patch Acute post-operative pain 10/05/20152016 Overview: Was on prolonged fentanyl infusion d/t vent asynchrony, pain from liver tx Now transitioned to patch, infusion stopped 11/13 -- continue fentanyl patch (100mcg) Renal insufficiency 10/05/2015 10/08/2015 Overview: Secondary to hypotension Baseline Scr 0.66, now down to 0.83 Making good UO -- monitor renal indices Stress hyperglycemia 10/05/2015 04/22/2017 Overview: -- Adequate glycemic control with SSI Moderate protein-calorie malnutrition 10/05/2015 04/22/2017 Overview: Tolerating goal tube feeds Osmolite 1.2 @ 70 Prealbumin 26, transferrin 185 -- continue TF with fiber and beneprotien and full liquid diet -- nutrition following Abdominal distension 09/12/2015 04/22/2017 Overview: - concerning given weight gain of 30 lb from 09/04 - CT abdomen on last admission showed tissue edema> ascites, concern for third spacing in the abdominal wall tissue - no evidence of active infection, however, currently pancytopenia - was taking Lasix 20 mg PO every other day and spironolactone 50 mg PO daily - Liver vascular U/S demonstrates patent vasculature Plan - diuresis with Lasix 40 mg PO BID and spironolactone 100 mg PO daily - paracentesis as needed for respiratory function Liver transplant candidate 08/17/201504/22 Pain disorder with psychological factors 015 12/23/2021 Hyperammonemia 07/20/2015 04/22/2017 SUMMARY 06/14/2015 09/12/2015 Overview: Mr. 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 SOB (shortness of breath) 06/14/20152016 Overview: Started after dry run Possibly irritated by catheter? Systolic murmur also heard Chest x-ray and CT PE negative Currently at baseline New valvular lesion vs clot? -Echocardiogram -Doppler study -Observe for now Hepatic cirrhosis 06/14/2015 04/22/2017 Overview: #Cirrhosis -Continue lactulose, rifaximin -Continue aldactone Infection of other external stoma of urinary tra ct 05/17/2015 04/22/2017 UTI (lower urinary tract infection) 04/08/2015 04/22/2017 Overview: Was complaining of dysuria. UA positive with leukoesterase and Was started of ceftriaxone at OSH. Received 2 dosages here yesterday and one today. Will finish treatment for complicated UTI at home with cipro 500BID Hepatic encephalopathy 04/08/2015 7 Overview: On lactulose zinc Rifaximin Fever, low grade 11/03/2014 04/22/2017 Overview: Low grade fever on presentation UA clean Plan - Blood cx ngtd - afebrile since SUMMARY 08/31/2014 07/24/2016 Overview: The patient is a 50 yo male with a past medical history of HCV/ETOH Liver Cirrhosis c/b hepatopulmonary syndrome, hypersplenism, HE, Grade I EV, pulmonary sarcoidosis who presents with acute weight gain, abdominal distension, and SOB Fever and chills 08/31/2014 04/22/2017 Overview: Tmax 38.7 this AM; pt reports recent history of tooth extraction One time fever yesterday Received 2 time cefazolin after PFO closure. Plan: -UA, BCxx2 - NG till now -will hold off on abx for now and observe Retained dental root 08/15/2014 12/23/2021 Hepatopulmonary syndrome 03/12/2014 018 Overview: History of hepatopulmonary syndrome with ~45.2% shunt, pulmonary sarcoidosis requiring home O2 6-10 liters and mild pulmonary HTN Preop PaO2 ~55 on RA Profound hypoxia postoperatively requiring max vent support with high PEEP, heavy sedation/paralytics, flolan, nitric oxide (off since 10/26) Course c/b Right lung Pneumothorax, resp failure requiring trach 11/01 Decompensation 11/04 secondary to narcotic withdrawal +/- sepsis-->Drastically improved with fentanyl infusion, ATB. Updated echo 11/15 with EF 55%, normal RV Currently doing great, on continuous trach collar with passy etta valve, and diet -- Goal sats 85% -- Continue TC, PMV, OOB Bicytopenia 03/12/2014 04/22/2017 Overview: He has plat count of 20k and WCC of around 1000 His neutropenia is likely 2/2 to INF His thrombocytopenia is likley 2/2 to his cirrhosis Plan: Watch, transfuse plats if <10k or bleeding Pancytopenia 03/11/2014 03/12/2014 Hypoxemia 03/11/2014 10/15/2015 Overview: Due to underlying HPS Now on 100% Fio2 with last PaO2 60, Nitric oxide started 10/08, at 40 PPM. O2 sats maintaining in 80s CTS consulted for ECMO evaluation -- Given profound thrombocytopenia and grave condition ECMO not recommended -- Continue nitric oxide -- lung protective ventilation -- increased I:E ratio (at 2.4:1), paralyze with rocuronium if needed -- goal of O2 sats in 70s permissible COPD (chronic obstructive pulmonary disease) 03/12/2014 Coagulopathy 03/11/2014 04/22/2017 Syncope 01/03/2014 04/22/2017 Epididymitis 11/24/2013 04/22/2017 Testalgia 11/24/2013 04/22/2017 Thrombocytopenia 08/20/2009 04/22/2017 Overview: Platelets 96k today, received platelets 10/11 prior to liver biopsy. no obvious bleeding -- monitor CBC, coags -- transfuse as required -- monitor for bleeding -- transfuse plts prior to invasive procedures Hepatitis C 08/20/2009 11/03/2014 Cirrhosis 04/22/2017 Overview: Secondary to alcohol use and HCV complicated by ascites, PSE (on lactulose, rifaximin) and hepatopulmonary syndrome on home O2 s/p OLT on 10/03/15 Concern for rejection (humoral), now s/p thymo, IVIG, plasmapheresis 10/15 and 10/16 completed -hydrocortisone (switched from prednisone) now tapering down - MMF - FK documented as of this encounter (statuses as of 12/25/2021) [facility] History of Past illness Narrative* Problem Noted Date Resolved Date Hilar adenopathy 07/09/2018 08/19/2018 Last Assessment & Plan: Assessment: CT A/P on Admission shows Significant subcarinal and bilateral hilar adenopathy on the lower images through the chest. Lymphoproliferative disease suspected He does have a hx of sarcoid But no recent CT chest/CXR to compare. CT chest shows SPLENOMEGALY AND NUMEROUS ENLARGED MEDIASTINAL AND BILATERAL HILAR LYMPH NODES, INCREASED IN SIZE SINCE 2016. THE DIFFERENTIAL DIAGNOSIS INCLUDES SARCOIDOSIS AND LYMPHOPROLIFERATIVE DISEASE. PLAN: -Transfer to [facility] for further evaluation by oncology per ID recommedation. Nausea & vomiting 07/09/2018 07/28/2018 Last Assessment & Plan: Assessment: Patient notes off and on nausea for one month. Also notes worsening control of his reflux symptoms. CTA/P shows significant subcarinal and bilateral hilar adenopathy and new subtle intrahepatic biliary dilatation and common duct dilatation . Obstructing lesion must be excluded, however.Splenic enlargement PLAN: -Increase protonix to 40mg bid -Zofran PRN for N/V -GI consult pending. Cellulitis 07/09/2018 07/13/2018 Abdominal wall cellulitis 12/01/20172021 Last Assessment & Plan: Assessment: Second Episode this year . Likely due to his constant picking of the skin of his abdomen. He is HDS, no leucocytosis,crp 2.6,ESR 2,lactate normal CTA/P shows no abscess nor cellulitis . PLAN: Continue ancef started in the ER. Continue bactrim as scheduled for prophylaxis - due to hx of liver transplant PRN morphine for pain. ID consult (because of his immunocompromised state - hx of liver transplant/ommunesuppresants) Wound care consult (re:open areas on his abdomen due to his scratching) F/up on blood Culture Ventral hernia without obstruction or gangrene 0 03/24/2017 04/22/2017 Lower abdominal pain 07/23/2016 04/22/2017 Opioid withdrawal 11/09/2015 04/22/2017 Overview: Thursday with opioid withdrawal after attempted discontinuation of fentanyl Resolution of symptoms after re-starting fentanyl -- Continue fentanyl patch with prn IVP fentanyl for breakthrough pain -- Drip stopped 3/2 Respiratory failure, post-operative 10/22/2015 04/22/2017 Overview: Pt intubated for OLT on 10/03/15, remained intubated d/t severe hypoxia (see hepato pulmonary syndrome) 2/18 s/p tracheostomy Very weak and debilitated, profound ICU neuromyopathy Currently improved, toleratingTC, passy etta valve capped -- continue trach collar, PMV Acute pneumothorax 10/17/2015 04/22/2017 Prerenal azotemia 10/17/2015 10/24/2015 Overview: Bun/ Creat ratio now trending down. Hypernatremia resolved -- trend Renal indices -- lasix 20 mg q8 Acute pulmonary embolism 10/17/2015 017 Spontaneous pneumothorax 10/16/2015 017 Overview: Pneumothorax discovered on CT chest 10/15 in setting of high PEEP requirements s/p chest tube placements x2 Last CT removed 11/02 CXR with small persistent Rt. Apical pneumothorax- not appeciated on today's CXR --continue to follow daily CXRs Pneumonia, organism unspecified([id number]) 10/16/2015 11/02/2015 Overview: CT of chest 10/15 shows RLL consolidation suspicious for pneumonia. Completed course of vanco and meropenem continuing micfungin. Sputum culture from 10/09 shows normal respiratory erum. legionella urinary antigen negative --ID following Sepsis due to other etiology 10/15/201505/2017 Overview: Has completed empiric courses of antibiotics for persistent low grade fevers and acute decompensation No obvious source of infection identified per extensive ID workup Vanco d/c 10/25, Meropenem d/c 10/26 11/04 Acute decompensation (fevers 11/05) empiric pip-tazo, vanc, micafungin added--> off since 11/11 (cultures negative) CT chest/ab/pelvis (11/08) with no evidence of infective process -- continue to monitor off ATB Postoperative shock 10/09/2015 04/22/2017 Overview: Shock, hypotension, fevers with increasing leukocytosis in setting of liver transplant, hepatopulmonary syndrome, ARDS, hypoxia. Profound hypoxia requiring nitric oxide therapy. Required low dose levo for BP support, now off. Concern for sepsis, blood cultures negative to date, vanco and zosyn started empirically 10/08. Procalcitonin 1.06. Lacate 1.8 -- Follow cultures -- continue vanco and zosyn -- levo for BP support (avoid fluid boluses if hypotensive) Electrolyte and fluid disorder 10/07/2015 0 04/22/2017 Overview: Hypomagnesemia repleted, hyperphos -- monitor and replete lytes daily -- increase daily PO mag oxide to 800 mg TID New onset seizure 10/05/2015 11/22/2019 Overview: Seizure activity 10/05, BEM supported the dx of cortical dysfunction in the left hemisphere with potential epileptogenicity in the left fronto-central region CT head negative for acute process, neurology consulted, loaded with Keppra Currently alert, follows commands -- weaned to Keppra 500mg bid -- neurology recommending follow up with epilepsy as outpatient ARDS (adult respiratory distress syndrome) 10/0504/22/2017 Overview: Hx of hepatopulmonary syndrome, pulmonary sarcoidosis requiring home O2 6-10 liters Pulmonary HTN with ~45% shunt. Pre-op PaO2 ~55 on RA CXR now with bilateral fluffy infiltrates / ARDS w/ pulmonary edema Desaturates with movement, turning, suctioning. Space = 60% today, with compliance ~45 -- maintain aggressive vent support (100% FiO2, wean PEEP is able as higher PEEP to increase shunt) -- lung protective strategies - Vt 6ml/kg ideal body weight (~350ml) -- trach on hold while unstable -- lasix TID -- Continue Nitric oxide -- increased I:E ratio -- avoid fluid boluses for hypotension - use pressors if needed -- sputum sent for culture Postoperative anemia due to acute blood loss 04/22/2017 Overview: S/P liver transplant with EBL 17 L c/b thrombocytopenia, coagulopahty and OP bleeding requiring intra-op nasal and pharyngeal packing Last transfused 10/08 2U PRBCs. 10/10: ENT removed nasal merocel. Clots in both nasopharyxes. No reinsertion of nasal tubes. -- monitor CBC and coags -- transfuse as required Agitation requiring sedation protocol 10/05/2015 04/22/2017 Overview: Required prolonged neuromuscular blockade with deep sedation secondary to increased WOB, breath stacking and hypoxia After discontinuation, he has had difficultly controlling agitation, likely opioid withdrawl. Had required precedex, fentanyl patch, prn haldol, seroquel Currently on seroquel, fentanyl patch Has been awake and alert, very cooperative -- continue on decreased TID seroquel dosing of 25mg TID and 150 mg qHS -- continue with fentanyl patch Acute post-operative pain 10/05/20152016 Overview: Was on prolonged fentanyl infusion d/t vent asynchrony, pain from liver tx Now transitioned to patch, infusion stopped 11/13 -- continue fentanyl patch (100mcg) Renal insufficiency 10/05/2015 10/08/2015 Overview: Secondary to hypotension Baseline Scr 0.66, now down to 0.83 Making good UO -- monitor renal indices Stress hyperglycemia 10/05/2015 04/22/2017 Overview: -- Adequate glycemic control with SSI Moderate protein-calorie malnutrition 10/05/2015 04/22/2017 Overview: Tolerating goal tube feeds Osmolite 1.2 @ 70 Prealbumin 26, transferrin 185 -- continue TF with fiber and beneprotien and full liquid diet -- nutrition following Abdominal distension 09/12/2015 04/22/2017 Overview: - concerning given weight gain of 30 lb from 09/04 - CT abdomen on last admission showed tissue edema> ascites, concern for third spacing in the abdominal wall tissue - no evidence of active infection, however, currently pancytopenia - was taking Lasix 20 mg PO every other day and spironolactone 50 mg PO daily - Liver vascular U/S demonstrates patent vasculature Plan - diuresis with Lasix 40 mg PO BID and spironolactone 100 mg PO daily - paracentesis as needed for respiratory function Liver transplant candidate 08/17/201504/22 Pain disorder with psychological factors 015 12/23/2021 Hyperammonemia 07/20/2015 04/22/2017 SUMMARY 06/14/2015 09/12/2015 Overview: Mr. 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 SOB (shortness of breath) 06/14/20152016 Overview: Started after dry run Possibly irritated by catheter? Systolic murmur also heard Chest x-ray and CT PE negative Currently at baseline New valvular lesion vs clot? -Echocardiogram -Doppler study -Observe for now Hepatic cirrhosis 06/14/2015 04/22/2017 Overview: #Cirrhosis -Continue lactulose, rifaximin -Continue aldactone Infection of other external stoma of urinary tra ct 05/17/2015 04/22/2017 UTI (lower urinary tract infection) 04/08/2015 04/22/2017 Overview: Was complaining of dysuria. UA positive with leukoesterase and Was started of ceftriaxone at OSH. Received 2 dosages here yesterday and one today. Will finish treatment for complicated UTI at home with cipro 500BID Hepatic encephalopathy 04/08/2015 7 Overview: On lactulose zinc Rifaximin Fever, low grade 11/03/2014 04/22/2017 Overview: Low grade fever on presentation UA clean Plan - Blood cx ngtd - afebrile since SUMMARY 08/31/2014 07/24/2016 Overview: The patient is a 50 yo male with a past medical history of HCV/ETOH Liver Cirrhosis c/b hepatopulmonary syndrome, hypersplenism, HE, Grade I EV, pulmonary sarcoidosis who presents with acute weight gain, abdominal distension, and SOB Fever and chills 08/31/2014 04/22/2017 Overview: Tmax 38.7 this AM; pt reports recent history of tooth extraction One time fever yesterday Received 2 time cefazolin after PFO closure. Plan: -UA, BCxx2 - NG till now -will hold off on abx for now and observe Retained dental root 08/15/2014 12/23/2021 Hepatopulmonary syndrome 03/12/2014 018 Overview: History of hepatopulmonary syndrome with ~45.2% shunt, pulmonary sarcoidosis requiring home O2 6-10 liters and mild pulmonary HTN Preop PaO2 ~55 on RA Profound hypoxia postoperatively requiring max vent support with high PEEP, heavy sedation/paralytics, flolan, nitric oxide (off since 10/26) Course c/b Right lung Pneumothorax, resp failure requiring trach 11/01 Decompensation 11/04 secondary to narcotic withdrawal +/- sepsis-->Drastically improved with fentanyl infusion, ATB. Updated echo 11/15 with EF 55%, normal RV Currently doing great, on continuous trach collar with passy etta valve, and diet -- Goal sats 85% -- Continue TC, PMV, OOB Bicytopenia 03/12/2014 04/22/2017 Overview: He has plat count of 20k and WCC of around 1000 His neutropenia is likely 2/2 to INF His thrombocytopenia is likley 2/2 to his cirrhosis Plan: Watch, transfuse plats if <10k or bleeding Pancytopenia 03/11/2014 03/12/2014 Hypoxemia 03/11/2014 10/15/2015 Overview: Due to underlying HPS Now on 100% Fio2 with last PaO2 60, Nitric oxide started 10/08, at 40 PPM. O2 sats maintaining in 80s CTS consulted for ECMO evaluation -- Given profound thrombocytopenia and grave condition ECMO not recommended -- Continue nitric oxide -- lung protective ventilation -- increased I:E ratio (at 2.4:1), paralyze with rocuronium if needed -- goal of O2 sats in 70s permissible COPD (chronic obstructive pulmonary disease) 03/12/2014 Coagulopathy 03/11/2014 04/22/2017 Syncope 01/03/2014 04/22/2017 Epididymitis 11/24/2013 04/22/2017 Testalgia 11/24/2013 04/22/2017 Thrombocytopenia 08/20/2009 04/22/2017 Overview: Platelets 96k today, received platelets 10/11 prior to liver biopsy. no obvious bleeding -- monitor CBC, coags -- transfuse as required -- monitor for bleeding -- transfuse plts prior to invasive procedures Hepatitis C 08/20/2009 11/03/2014 Cirrhosis 04/22/2017 Overview: Secondary to alcohol use and HCV complicated by ascites, PSE (on lactulose, rifaximin) and hepatopulmonary syndrome on home O2 s/p OLT on 10/03/15 Concern for rejection (humoral), now s/p thymo, IVIG, plasmapheresis 10/15 and 10/16 completed -hydrocortisone (switched from prednisone) now tapering down - MMF - FK documented as of this encounter (statuses as of 01/03/2022) [facility] History of Past illness Narrative* Problem Noted Date Resolved Date Hilar adenopathy 07/09/2018 08/19/2018 Last Assessment & Plan: Assessment: CT A/P on Admission shows Significant subcarinal and bilateral hilar adenopathy on the lower images through the chest. Lymphoproliferative disease suspected He does have a hx of sarcoid But no recent CT chest/CXR to compare. CT chest shows SPLENOMEGALY AND NUMEROUS ENLARGED MEDIASTINAL AND BILATERAL HILAR LYMPH NODES, INCREASED IN SIZE SINCE 2016. THE DIFFERENTIAL DIAGNOSIS INCLUDES SARCOIDOSIS AND LYMPHOPROLIFERATIVE DISEASE. PLAN: -Transfer to [facility] for further evaluation by oncology per ID recommedation. Nausea & vomiting 07/09/2018 07/28/2018 Last Assessment & Plan: Assessment: Patient notes off and on nausea for one month. Also notes worsening control of his reflux symptoms. CTA/P shows significant subcarinal and bilateral hilar adenopathy and new subtle intrahepatic biliary dilatation and common duct dilatation . Obstructing lesion must be excluded, however.Splenic enlargement PLAN: -Increase protonix to 40mg bid -Zofran PRN for N/V -GI consult pending. Cellulitis 07/09/2018 07/13/2018 Abdominal wall cellulitis 12/01/20172021 Last Assessment & Plan: Assessment: Second Episode this year . Likely due to his constant picking of the skin of his abdomen. He is HDS, no leucocytosis,crp 2.6,ESR 2,lactate normal CTA/P shows no abscess nor cellulitis . PLAN: Continue ancef started in the ER. Continue bactrim as scheduled for prophylaxis - due to hx of liver transplant PRN morphine for pain. ID consult (because of his immunocompromised state - hx of liver transplant/ommunesuppresants) Wound care consult (re:open areas on his abdomen due to his scratching) F/up on blood Culture Ventral hernia without obstruction or gangrene 0 03/24/2017 04/22/2017 Lower abdominal pain 07/23/2016 04/22/2017 Opioid withdrawal 11/09/2015 04/22/2017 Overview: Thursday with opioid withdrawal after attempted discontinuation of fentanyl Resolution of symptoms after re-starting fentanyl -- Continue fentanyl patch with prn IVP fentanyl for breakthrough pain -- Drip stopped 3/2 Respiratory failure, post-operative 10/22/2015 04/22/2017 Overview: Pt intubated for OLT on 10/03/15, remained intubated d/t severe hypoxia (see hepato pulmonary syndrome) 11/01 s/p tracheostomy Very weak and debilitated, profound ICU neuromyopathy Currently improved, toleratingTC, passy etta valve capped -- continue trach collar, PMV Acute pneumothorax 10/17/2015 04/22/2017 Prerenal azotemia 10/17/2015 10/24/2015 Overview: Bun/ Creat ratio now trending down. Hypernatremia resolved -- trend Renal indices -- lasix 20 mg q8 Acute pulmonary embolism 10/17/2015 017 Spontaneous pneumothorax 10/16/2015 017 Overview: Pneumothorax discovered on CT chest 10/15 in setting of high PEEP requirements s/p chest tube placements x2 Last CT removed 11/02 CXR with small persistent Rt. Apical pneumothorax- not appeciated on today's CXR --continue to follow daily CXRs Pneumonia, organism unspecified([id number]) 10/16/2015 11/02/2015 Overview: CT of chest 10/15 shows RLL consolidation suspicious for pneumonia. Completed course of vanco and meropenem continuing micfungin. Sputum culture from 10/09 shows normal respiratory erum. legionella urinary antigen negative --ID following Sepsis due to other etiology 10/15/201505/2017 Overview: Has completed empiric courses of antibiotics for persistent low grade fevers and acute decompensation No obvious source of infection identified per extensive ID workup Vanco d/c 10/25, Meropenem d/c 10/26 11/04 Acute decompensation (fevers 11/05) empiric pip-tazo, vanc, micafungin added--> off since 11/11 (cultures negative) CT chest/ab/pelvis (11/08) with no evidence of infective process -- continue to monitor off ATB Postoperative shock 10/09/2015 04/22/2017 Overview: Shock, hypotension, fevers with increasing leukocytosis in setting of liver transplant, hepatopulmonary syndrome, ARDS, hypoxia. Profound hypoxia requiring nitric oxide therapy. Required low dose levo for BP support, now off. Concern for sepsis, blood cultures negative to date, vanco and zosyn started empirically 10/08. Procalcitonin 1.06. Lacate 1.8 -- Follow cultures -- continue vanco and zosyn -- levo for BP support (avoid fluid boluses if hypotensive) Electrolyte and fluid disorder 10/07/2015 0 04/22/2017 Overview: Hypomagnesemia repleted, hyperphos -- monitor and replete lytes daily -- increase daily PO mag oxide to 800 mg TID New onset seizure 10/05/2015 11/22/2019 Overview: Seizure activity 10/05, BEM supported the dx of cortical dysfunction in the left hemisphere with potential epileptogenicity in the left fronto-central region CT head negative for acute process, neurology consulted, loaded with Keppra Currently alert, follows commands -- weaned to Keppra 500mg bid -- neurology recommending follow up with epilepsy as outpatient ARDS (adult respiratory distress syndrome) 10/0504/22/2017 Overview: Hx of hepatopulmonary syndrome, pulmonary sarcoidosis requiring home O2 6-10 liters Pulmonary HTN with ~45% shunt. Pre-op PaO2 ~55 on RA CXR now with bilateral fluffy infiltrates / ARDS w/ pulmonary edema Desaturates with movement, turning, suctioning. Space = 60% today, with compliance ~45 -- maintain aggressive vent support (100% FiO2, wean PEEP is able as higher PEEP to increase shunt) -- lung protective strategies - Vt 6ml/kg ideal body weight (~350ml) -- trach on hold while unstable -- lasix TID -- Continue Nitric oxide -- increased I:E ratio -- avoid fluid boluses for hypotension - use pressors if needed -- sputum sent for culture Postoperative anemia due to acute blood loss 04/22/2017 Overview: S/P liver transplant with EBL 17 L c/b thrombocytopenia, coagulopahty and OP bleeding requiring intra-op nasal and pharyngeal packing Last transfused 10/08 2U PRBCs. 10/10: ENT removed nasal merocel. Clots in both nasopharyxes. No reinsertion of nasal tubes. -- monitor CBC and coags -- transfuse as required Agitation requiring sedation protocol 10/05/2015 04/22/2017 Overview: Required prolonged neuromuscular blockade with deep sedation secondary to increased WOB, breath stacking and hypoxia After discontinuation, he has had difficultly controlling agitation, likely opioid withdrawl. Had required precedex, fentanyl patch, prn haldol, seroquel Currently on seroquel, fentanyl patch Has been awake and alert, very cooperative -- continue on decreased TID seroquel dosing of 25mg TID and 150 mg qHS -- continue with fentanyl patch Acute post-operative pain 10/05/20152016 Overview: Was on prolonged fentanyl infusion d/t vent asynchrony, pain from liver tx Now transitioned to patch, infusion stopped 11/13 -- continue fentanyl patch (100mcg) Renal insufficiency 10/05/2015 10/08/2015 Overview: Secondary to hypotension Baseline Scr 0.66, now down to 0.83 Making good UO -- monitor renal indices Stress hyperglycemia 10/05/2015 04/22/2017 Overview: -- Adequate glycemic control with SSI Moderate protein-calorie malnutrition 10/05/2015 04/22/2017 Overview: Tolerating goal tube feeds Osmolite 1.2 @ 70 Prealbumin 26, transferrin 185 -- continue TF with fiber and beneprotien and full liquid diet -- nutrition following Abdominal distension 09/12/2015 04/22/2017 Overview: - concerning given weight gain of 30 lb from 09/04 - CT abdomen on last admission showed tissue edema> ascites, concern for third spacing in the abdominal wall tissue - no evidence of active infection, however, currently pancytopenia - was taking Lasix 20 mg PO every other day and spironolactone 50 mg PO daily - Liver vascular U/S demonstrates patent vasculature Plan - diuresis with Lasix 40 mg PO BID and spironolactone 100 mg PO daily - paracentesis as needed for respiratory function Liver transplant candidate 08/17/201504/22 Pain disorder with psychological factors 015 12/23/2021 Hyperammonemia 07/20/2015 04/22/2017 SUMMARY 06/14/2015 09/12/2015 Overview: Mr. 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 SOB (shortness of breath) 06/14/20152016 Overview: Started after dry run Possibly irritated by catheter? Systolic murmur also heard Chest x-ray and CT PE negative Currently at baseline New valvular lesion vs clot? -Echocardiogram -Doppler study -Observe for now Hepatic cirrhosis 06/14/2015 04/22/2017 Overview: #Cirrhosis -Continue lactulose, rifaximin -Continue aldactone Infection of other external stoma of urinary tra ct 05/17/2015 04/22/2017 UTI (lower urinary tract infection) 04/08/2015 04/22/2017 Overview: Was complaining of dysuria. UA positive with leukoesterase and Was started of ceftriaxone at OSH. Received 2 dosages here yesterday and one today. Will finish treatment for complicated UTI at home with cipro 500BID Hepatic encephalopathy 04/08/2015 7 Overview: On lactulose zinc Rifaximin Fever, low grade 11/03/2014 04/22/2017 Overview: Low grade fever on presentation UA clean Plan - Blood cx ngtd - afebrile since SUMMARY 08/31/2014 07/24/2016 Overview: The patient is a 50 yo male with a past medical history of HCV/ETOH Liver Cirrhosis c/b hepatopulmonary syndrome, hypersplenism, HE, Grade I EV, pulmonary sarcoidosis who presents with acute weight gain, abdominal distension, and SOB Fever and chills 08/31/2014 04/22/2017 Overview: Tmax 38.7 this AM; pt reports recent history of tooth extraction One time fever yesterday Received 2 time cefazolin after PFO closure. Plan: -UA, BCxx2 - NG till now -will hold off on abx for now and observe Retained dental root 08/15/2014 12/23/2021 Hepatopulmonary syndrome 03/12/2014 018 Overview: History of hepatopulmonary syndrome with ~45.2% shunt, pulmonary sarcoidosis requiring home O2 6-10 liters and mild pulmonary HTN Preop PaO2 ~55 on RA Profound hypoxia postoperatively requiring max vent support with high PEEP, heavy sedation/paralytics, flolan, nitric oxide (off since 10/26) Course c/b Right lung Pneumothorax, resp failure requiring trach 11/01 Decompensation 11/04 secondary to narcotic withdrawal +/- sepsis-->Drastically improved with fentanyl infusion, ATB. Updated echo 11/15 with EF 55%, normal RV Currently doing great, on continuous trach collar with passy etta valve, and diet -- Goal sats 85% -- Continue TC, PMV, OOB Bicytopenia 03/12/2014 04/22/2017 Overview: He has plat count of 20k and WCC of around 1000 His neutropenia is likely 2/2 to INF His thrombocytopenia is likley 2/2 to his cirrhosis Plan: Watch, transfuse plats if <10k or bleeding Pancytopenia 03/11/2014 03/12/2014 Hypoxemia 03/11/2014 10/15/2015 Overview: Due to underlying HPS Now on 100% Fio2 with last PaO2 60, Nitric oxide started 10/08, at 40 PPM. O2 sats maintaining in 80s CTS consulted for ECMO evaluation -- Given profound thrombocytopenia and grave condition ECMO not recommended -- Continue nitric oxide -- lung protective ventilation -- increased I:E ratio (at 2.4:1), paralyze with rocuronium if needed -- goal of O2 sats in 70s permissible COPD (chronic obstructive pulmonary disease) 03/12/2014 Coagulopathy 03/11/2014 04/22/2017 Syncope 01/03/2014 04/22/2017 Epididymitis 11/24/2013 04/22/2017 Testalgia 11/24/2013 04/22/2017 Thrombocytopenia 08/20/2009 04/22/2017 Overview: Platelets 96k today, received platelets 10/11 prior to liver biopsy. no obvious bleeding -- monitor CBC, coags -- transfuse as required -- monitor for bleeding -- transfuse plts prior to invasive procedures Hepatitis C 08/20/2009 11/03/2014 Cirrhosis 04/22/2017 Overview: Secondary to alcohol use and HCV complicated by ascites, PSE (on lactulose, rifaximin) and hepatopulmonary syndrome on home O2 s/p OLT on 10/03/15 Concern for rejection (humoral), now s/p thymo, IVIG, plasmapheresis 10/15 and 10/16 completed -hydrocortisone (switched from prednisone) now tapering down - MMF - FK documented as of this encounter (statuses as of 01/06/2022) [facility] History of Past illness Narrative* Problem Noted Date Resolved Date Hilar adenopathy 07/09/2018 08/19/2018 Last Assessment & Plan: Assessment: CT A/P on Admission shows Significant subcarinal and bilateral hilar adenopathy on the lower images through the chest. Lymphoproliferative disease suspected He does have a hx of sarcoid But no recent CT chest/CXR to compare. CT chest shows SPLENOMEGALY AND NUMEROUS ENLARGED MEDIASTINAL AND BILATERAL HILAR LYMPH NODES, INCREASED IN SIZE SINCE 2016. THE DIFFERENTIAL DIAGNOSIS INCLUDES SARCOIDOSIS AND LYMPHOPROLIFERATIVE DISEASE. PLAN: -Transfer to [facility] for further evaluation by oncology per ID recommedation. Nausea & vomiting 07/09/2018 07/28/2018 Last Assessment & Plan: Assessment: Patient notes off and on nausea for one month. Also notes worsening control of his reflux symptoms. CTA/P shows significant subcarinal and bilateral hilar adenopathy and new subtle intrahepatic biliary dilatation and common duct dilatation . Obstructing lesion must be excluded, however.Splenic enlargement PLAN: -Increase protonix to 40mg bid -Zofran PRN for N/V -GI consult pending. Cellulitis 07/09/2018 07/13/2018 Abdominal wall cellulitis 12/01/20172021 Last Assessment & Plan: Assessment: Second Episode this year . Likely due to his constant picking of the skin of his abdomen. He is HDS, no leucocytosis,crp 2.6,ESR 2,lactate normal CTA/P shows no abscess nor cellulitis . PLAN: Continue ancef started in the ER. Continue bactrim as scheduled for prophylaxis - due to hx of liver transplant PRN morphine for pain. ID consult (because of his immunocompromised state - hx of liver transplant/ommunesuppresants) Wound care consult (re:open areas on his abdomen due to his scratching) F/up on blood Culture Ventral hernia without obstruction or gangrene 0 03/24/2017 04/22/2017 Lower abdominal pain 07/23/2016 04/22/2017 Opioid withdrawal 11/09/2015 04/22/2017 Overview: Thursday with opioid withdrawal after attempted discontinuation of fentanyl Resolution of symptoms after re-starting fentanyl -- Continue fentanyl patch with prn IVP fentanyl for breakthrough pain -- Drip stopped 11/13 Respiratory failure, post-operative 10/22/2015 04/22/2017 Overview: Pt intubated for OLT on 10/03/15, remained intubated d/t severe hypoxia (see hepato pulmonary syndrome) 11/01 s/p tracheostomy Very weak and debilitated, profound ICU neuromyopathy Currently improved, toleratingTC, passy etta valve capped -- continue trach collar, PMV Acute pneumothorax 10/17/2015 04/22/2017 Prerenal azotemia 10/17/2015 10/24/2015 Overview: Bun/ Creat ratio now trending down. Hypernatremia resolved -- trend Renal indices -- lasix 20 mg q8 Acute pulmonary embolism 10/17/2015 017 Spontaneous pneumothorax 10/16/2015 017 Overview: Pneumothorax discovered on CT chest 10/15 in setting of high PEEP requirements s/p chest tube placements x2 Last CT removed 11/02 CXR with small persistent Rt. Apical pneumothorax- not appeciated on today's CXR --continue to follow daily CXRs Pneumonia, organism unspecified([phone]) 10/16/2015 11/02/2015 Overview: CT of chest 10/15 shows RLL consolidation suspicious for pneumonia. Completed course of vanco and meropenem continuing micfungin. Sputum culture from 10/09 shows normal respiratory erum. legionella urinary antigen negative --ID following Sepsis due to other etiology 10/15/201505/2017 Overview: Has completed empiric courses of antibiotics for persistent low grade fevers and acute decompensation No obvious source of infection identified per extensive ID workup Vanco d/c 10/25, Meropenem d/c 10/26 11/04 Acute decompensation (fevers 11/05) empiric pip-tazo, vanc, micafungin added--> off since 11/11 (cultures negative) CT chest/ab/pelvis (11/08) with no evidence of infective process -- continue to monitor off ATB Postoperative shock 10/09/2015 04/22/2017 Overview: Shock, hypotension, fevers with increasing leukocytosis in setting of liver transplant, hepatopulmonary syndrome, ARDS, hypoxia. Profound hypoxia requiring nitric oxide therapy. Required low dose levo for BP support, now off. Concern for sepsis, blood cultures negative to date, vanco and zosyn started empirically 10/08. Procalcitonin 1.06. Lacate 1.8 -- Follow cultures -- continue vanco and zosyn -- levo for BP support (avoid fluid boluses if hypotensive) Electrolyte and fluid disorder 10/07/2015 0 04/22/2017 Overview: Hypomagnesemia repleted, hyperphos -- monitor and replete lytes daily -- increase daily PO mag oxide to 800 mg TID New onset seizure 10/05/2015 11/22/2019 Overview: Seizure activity 10/05, BEM supported the dx of cortical dysfunction in the left hemisphere with potential epileptogenicity in the left fronto-central region CT head negative for acute process, neurology consulted, loaded with Keppra Currently alert, follows commands -- weaned to Keppra 500mg bid -- neurology recommending follow up with epilepsy as outpatient ARDS (adult respiratory distress syndrome) 10/0504/22/2017 Overview: Hx of hepatopulmonary syndrome, pulmonary sarcoidosis requiring home O2 6-10 liters Pulmonary HTN with ~45% shunt. Pre-op PaO2 ~55 on RA CXR now with bilateral fluffy infiltrates / ARDS w/ pulmonary edema Desaturates with movement, turning, suctioning. Space = 60% today, with compliance ~45 -- maintain aggressive vent support (100% FiO2, wean PEEP is able as higher PEEP to increase shunt) -- lung protective strategies - Vt 6ml/kg ideal body weight (~350ml) -- trach on hold while unstable -- lasix TID -- Continue Nitric oxide -- increased I:E ratio -- avoid fluid boluses for hypotension - use pressors if needed -- sputum sent for culture Postoperative anemia due to acute blood loss 04/22/2017 Overview: S/P liver transplant with EBL 17 L c/b thrombocytopenia, coagulopahty and OP bleeding requiring intra-op nasal and pharyngeal packing Last transfused 10/08 2U PRBCs. 10/10: ENT removed nasal merocel. Clots in both nasopharyxes. No reinsertion of nasal tubes. -- monitor CBC and coags -- transfuse as required Agitation requiring sedation protocol 10/05/2015 04/22/2017 Overview: Required prolonged neuromuscular blockade with deep sedation secondary to increased WOB, breath stacking and hypoxia After discontinuation, he has had difficultly controlling agitation, likely opioid withdrawl. Had required precedex, fentanyl patch, prn haldol, seroquel Currently on seroquel, fentanyl patch Has been awake and alert, very cooperative -- continue on decreased TID seroquel dosing of 25mg TID and 150 mg qHS -- continue with fentanyl patch Acute post-operative pain 10/05/20152016 Overview: Was on prolonged fentanyl infusion d/t vent asynchrony, pain from liver tx Now transitioned to patch, infusion stopped 11/13 -- continue fentanyl patch (100mcg) Renal insufficiency 10/05/2015 10/08/2015 Overview: Secondary to hypotension Baseline Scr 0.66, now down to 0.83 Making good UO -- monitor renal indices Stress hyperglycemia 10/05/2015 04/22/2017 Overview: -- Adequate glycemic control with SSI Moderate protein-calorie malnutrition 10/05/2015 04/22/2017 Overview: Tolerating goal tube feeds Osmolite 1.2 @ 70 Prealbumin 26, transferrin 185 -- continue TF with fiber and beneprotien and full liquid diet -- nutrition following Abdominal distension 09/12/2015 04/22/2017 Overview: - concerning given weight gain of 30 lb from 09/04 - CT abdomen on last admission showed tissue edema> ascites, concern for third spacing in the abdominal wall tissue - no evidence of active infection, however, currently pancytopenia - was taking Lasix 20 mg PO every other day and spironolactone 50 mg PO daily - Liver vascular U/S demonstrates patent vasculature Plan - diuresis with Lasix 40 mg PO BID and spironolactone 100 mg PO daily - paracentesis as needed for respiratory function Liver transplant candidate 08/17/201504/22 Pain disorder with psychological factors 015 12/23/2021 Hyperammonemia 07/20/2015 04/22/2017 SUMMARY 06/14/2015 09/12/2015 Overview: Mr. 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 SOB (shortness of breath) 06/14/20152016 Overview: Started after dry run Possibly irritated by catheter? Systolic murmur also heard Chest x-ray and CT PE negative Currently at baseline New valvular lesion vs clot? -Echocardiogram -Doppler study -Observe for now Hepatic cirrhosis 06/14/2015 04/22/2017 Overview: #Cirrhosis -Continue lactulose, rifaximin -Continue aldactone Infection of other external stoma of urinary tra ct 05/17/2015 04/22/2017 UTI (lower urinary tract infection) 04/08/2015 04/22/2017 Overview: Was complaining of dysuria. UA positive with leukoesterase and Was started of ceftriaxone at OSH. Received 2 dosages here yesterday and one today. Will finish treatment for complicated UTI at home with cipro [id number] Hepatic encephalopathy 04/08/2015 7 Overview: On lactulose zinc Rifaximin Fever, low grade 11/03/2014 04/22/2017 Overview: Low grade fever on presentation UA clean Plan - Blood cx ngtd - afebrile since SUMMARY 08/31/2014 07/24/2016 Overview: The patient is a 50 yo male with a past medical history of HCV/ETOH Liver Cirrhosis c/b hepatopulmonary syndrome, hypersplenism, HE, Grade I EV, pulmonary sarcoidosis who presents with acute weight gain, abdominal distension, and SOB Fever and chills 08/31/2014 04/22/2017 Overview: Tmax 38.7 this AM; pt reports recent history of tooth extraction One time fever yesterday Received 2 time cefazolin after PFO closure. Plan: -UA, BCxx2 - NG till now -will hold off on abx for now and observe Retained dental root 08/15/2014 12/23/2021 Hepatopulmonary syndrome 03/12/2014 018 Overview: History of hepatopulmonary syndrome with ~45.2% shunt, pulmonary sarcoidosis requiring home O2 6-10 liters and mild pulmonary HTN Preop PaO2 ~55 on RA Profound hypoxia postoperatively requiring max vent support with high PEEP, heavy sedation/paralytics, flolan, nitric oxide (off since 10/26) Course c/b Right lung Pneumothorax, resp failure requiring trach 11/01 Decompensation 11/04 secondary to narcotic withdrawal +/- sepsis-->Drastically improved with fentanyl infusion, ATB. Updated echo 11/15 with EF 55%, normal RV Currently doing great, on continuous trach collar with passy etta valve, and diet -- Goal sats 85% -- Continue TC, PMV, OOB Bicytopenia 03/12/2014 04/22/2017 Overview: He has plat count of 20k and WCC of around 1000 His neutropenia is likely 2/2 to INF His thrombocytopenia is likley 2/2 to his cirrhosis Plan: Watch, transfuse plats if <10k or bleeding Pancytopenia 03/11/2014 03/12/2014 Hypoxemia 03/11/2014 10/15/2015 Overview: Due to underlying HPS Now on 100% Fio2 with last PaO2 60, Nitric oxide started 10/08, at 40 PPM. O2 sats maintaining in 80s CTS consulted for ECMO evaluation -- Given profound thrombocytopenia and grave condition ECMO not recommended -- Continue nitric oxide -- lung protective ventilation -- increased I:E ratio (at 2.4:1), paralyze with rocuronium if needed -- goal of O2 sats in 70s permissible COPD (chronic obstructive pulmonary disease) 03/12/2014 Coagulopathy 03/11/2014 04/22/2017 Syncope 01/03/2014 04/22/2017 Epididymitis 11/24/2013 04/22/2017 Testalgia 11/24/2013 04/22/2017 Thrombocytopenia 08/20/2009 04/22/2017 Overview: Platelets 96k today, received platelets 10/11 prior to liver biopsy. no obvious bleeding -- monitor CBC, coags -- transfuse as required -- monitor for bleeding -- transfuse plts prior to invasive procedures Hepatitis C 08/20/2009 11/03/2014 Cirrhosis 04/22/2017 Overview: Secondary to alcohol use and HCV complicated by ascites, PSE (on lactulose, rifaximin) and hepatopulmonary syndrome on home O2 s/p OLT on 10/03/15 Concern for rejection (humoral), now s/p thymo, IVIG, plasmapheresis 10/15 and 2 completed -hydrocortisone (switched from prednisone) now tapering down - MMF - FK documented as of this encounter (statuses as of 01/08/2022) [facility] History of Past illness Narrative* Problem Noted Date Resolved Date Hilar adenopathy 07/09/2018 08/19/2018 Last Assessment & Plan: Assessment: CT A/P on Admission shows Significant subcarinal and bilateral hilar adenopathy on the lower images through the chest. Lymphoproliferative disease suspected He does have a hx of sarcoid But no recent CT chest/CXR to compare. CT chest shows SPLENOMEGALY AND NUMEROUS ENLARGED MEDIASTINAL AND BILATERAL HILAR LYMPH NODES, INCREASED IN SIZE SINCE 2016. THE DIFFERENTIAL DIAGNOSIS INCLUDES SARCOIDOSIS AND LYMPHOPROLIFERATIVE DISEASE. PLAN: -Transfer to [facility] for further evaluation by oncology per ID recommedation. Nausea & vomiting 07/09/2018 07/28/2018 Last Assessment & Plan: Assessment: Patient notes off and on nausea for one month. Also notes worsening control of his reflux symptoms. CTA/P shows significant subcarinal and bilateral hilar adenopathy and new subtle intrahepatic biliary dilatation and common duct dilatation . Obstructing lesion must be excluded, however.Splenic enlargement PLAN: -Increase protonix to 40mg bid -Zofran PRN for N/V -GI consult pending. Cellulitis 07/09/2018 07/13/2018 Abdominal wall cellulitis 12/01/20172021 Last Assessment & Plan: Assessment: Second Episode this year . Likely due to his constant picking of the skin of his abdomen. He is HDS, no leucocytosis,crp 2.6,ESR 2,lactate normal CTA/P shows no abscess nor cellulitis . PLAN: Continue ancef started in the ER. Continue bactrim as scheduled for prophylaxis - due to hx of liver transplant PRN morphine for pain. ID consult (because of his immunocompromised state - hx of liver transplant/ommunesuppresants) Wound care consult (re:open areas on his abdomen due to his scratching) F/up on blood Culture Ventral hernia without obstruction or gangrene 0 03/24/2017 04/22/2017 Lower abdominal pain 07/23/2016 04/22/2017 Opioid withdrawal 11/09/2015 04/22/2017 Overview: Thursday with opioid withdrawal after attempted discontinuation of fentanyl Resolution of symptoms after re-starting fentanyl -- Continue fentanyl patch with prn IVP fentanyl for breakthrough pain -- Drip stopped 11/13 Respiratory failure, post-operative 10/22/2015 04/22/2017 Overview: Pt intubated for OLT on 10/03/15, remained intubated d/t severe hypoxia (see hepato pulmonary syndrome) 11/01 s/p tracheostomy Very weak and debilitated, profound ICU neuromyopathy Currently improved, toleratingTC, passy etta valve capped -- continue trach collar, PMV Acute pneumothorax 10/17/2015 04/22/2017 Prerenal azotemia 10/17/2015 10/24/2015 Overview: Bun/ Creat ratio now trending down. Hypernatremia resolved -- trend Renal indices -- lasix 20 mg q8 Acute pulmonary embolism 10/17/2015 017 Spontaneous pneumothorax 10/16/2015 017 Overview: Pneumothorax discovered on CT chest 10/15 in setting of high PEEP requirements s/p chest tube placements x2 Last CT removed 11/02 CXR with small persistent Rt. Apical pneumothorax- not appeciated on today's CXR --continue to follow daily CXRs Pneumonia, organism unspecified(486) 10/16/2015 11/02/2015 Overview: CT of chest 10/15 shows RLL consolidation suspicious for pneumonia. Completed course of vanco and meropenem continuing micfungin. Sputum culture from 10/09 shows normal respiratory erum. legionella urinary antigen negative --ID following Sepsis due to other etiology 10/15/201505/2017 Overview: Has completed empiric courses of antibiotics for persistent low grade fevers and acute decompensation No obvious source of infection identified per extensive ID workup Vanco d/c 10/25, Meropenem d/c 10/26 11/04 Acute decompensation (fevers 11/05) empiric pip-tazo, vanc, micafungin added--> off since 11/11 (cultures negative) CT chest/ab/pelvis (11/08) with no evidence of infective process -- continue to monitor off ATB Postoperative shock 10/09/2015 04/22/2017 Overview: Shock, hypotension, fevers with increasing leukocytosis in setting of liver transplant, hepatopulmonary syndrome, ARDS, hypoxia. Profound hypoxia requiring nitric oxide therapy. Required low dose levo for BP support, now off. Concern for sepsis, blood cultures negative to date, vanco and zosyn started empirically 10/08. Procalcitonin 1.06. Lacate 1.8 -- Follow cultures -- continue vanco and zosyn -- levo for BP support (avoid fluid boluses if hypotensive) Electrolyte and fluid disorder 10/07/2015 0 04/22/2017 Overview: Hypomagnesemia repleted, hyperphos -- monitor and replete lytes daily -- increase daily PO mag oxide to 800 mg TID New onset seizure 10/05/2015 11/22/2019 Overview: Seizure activity 10/05, BEM supported the dx of cortical dysfunction in the left hemisphere with potential epileptogenicity in the left fronto-central region CT head negative for acute process, neurology consulted, loaded with Keppra Currently alert, follows commands -- weaned to Keppra 500mg bid -- neurology recommending follow up with epilepsy as outpatient ARDS (adult respiratory distress syndrome) 10/0504/22/2017 Overview: Hx of hepatopulmonary syndrome, pulmonary sarcoidosis requiring home O2 6-10 liters Pulmonary HTN with ~45% shunt. Pre-op PaO2 ~55 on RA CXR now with bilateral fluffy infiltrates / ARDS w/ pulmonary edema Desaturates with movement, turning, suctioning. Space = 60% today, with compliance ~45 -- maintain aggressive vent support (100% FiO2, wean PEEP is able as higher PEEP to increase shunt) -- lung protective strategies - Vt 6ml/kg ideal body weight (~350ml) -- trach on hold while unstable -- lasix TID -- Continue Nitric oxide -- increased I:E ratio -- avoid fluid boluses for hypotension - use pressors if needed -- sputum sent for culture Postoperative anemia due to acute blood loss 04/22/2017 Overview: S/P liver transplant with EBL 17 L c/b thrombocytopenia, coagulopahty and OP bleeding requiring intra-op nasal and pharyngeal packing Last transfused 10/08 2U PRBCs. 10/10: ENT removed nasal merocel. Clots in both nasopharyxes. No reinsertion of nasal tubes. -- monitor CBC and coags -- transfuse as required Agitation requiring sedation protocol 10/05/2015 04/22/2017 Overview: Required prolonged neuromuscular blockade with deep sedation secondary to increased WOB, breath stacking and hypoxia After discontinuation, he has had difficultly controlling agitation, likely opioid withdrawl. Had required precedex, fentanyl patch, prn haldol, seroquel Currently on seroquel, fentanyl patch Has been awake and alert, very cooperative -- continue on decreased TID seroquel dosing of 25mg TID and 150 mg qHS -- continue with fentanyl patch Acute post-operative pain 10/05/20152016 Overview: Was on prolonged fentanyl infusion d/t vent asynchrony, pain from liver tx Now transitioned to patch, infusion stopped 11/13 -- continue fentanyl patch (100mcg) Renal insufficiency 10/05/2015 10/08/2015 Overview: Secondary to hypotension Baseline Scr 0.66, now down to 0.83 Making good UO -- monitor renal indices Stress hyperglycemia 10/05/2015 04/22/2017 Overview: -- Adequate glycemic control with SSI Moderate protein-calorie malnutrition 10/05/2015 04/22/2017 Overview: Tolerating goal tube feeds Osmolite 1.2 @ 70 Prealbumin 26, transferrin 185 -- continue TF with fiber and beneprotien and full liquid diet -- nutrition following Abdominal distension 09/12/2015 04/22/2017 Overview: - concerning given weight gain of 30 lb from 09/04 - CT abdomen on last admission showed tissue edema> ascites, concern for third spacing in the abdominal wall tissue - no evidence of active infection, however, currently pancytopenia - was taking Lasix 20 mg PO every other day and spironolactone 50 mg PO daily - Liver vascular U/S demonstrates patent vasculature Plan - diuresis with Lasix 40 mg PO BID and spironolactone 100 mg PO daily - paracentesis as needed for respiratory function Liver transplant candidate 08/17/201504/22 Pain disorder with psychological factors 015 12/23/2021 Hyperammonemia 07/20/2015 04/22/2017 SUMMARY 06/14/2015 09/12/2015 Overview: Mr. 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 SOB (shortness of breath) 06/14/20152016 Overview: Started after dry run Possibly irritated by catheter? Systolic murmur also heard Chest x-ray and CT PE negative Currently at baseline New valvular lesion vs clot? -Echocardiogram -Doppler study -Observe for now Hepatic cirrhosis 06/14/2015 04/22/2017 Overview: #Cirrhosis -Continue lactulose, rifaximin -Continue aldactone Infection of other external stoma of urinary tra ct 05/17/2015 04/22/2017 UTI (lower urinary tract infection) 04/08/2015 04/22/2017 Overview: Was complaining of dysuria. UA positive with leukoesterase and Was started of ceftriaxone at OSH. Received 2 dosages here yesterday and one today. Will finish treatment for complicated UTI at home with cipro 500BID Hepatic encephalopathy 04/08/2015 7 Overview: On lactulose zinc Rifaximin Fever, low grade 11/03/2014 04/22/2017 Overview: Low grade fever on presentation UA clean Plan - Blood cx ngtd - afebrile since SUMMARY 08/31/2014 07/24/2016 Overview: The patient is a 50 yo male with a past medical history of HCV/ETOH Liver Cirrhosis c/b hepatopulmonary syndrome, hypersplenism, HE, Grade I EV, pulmonary sarcoidosis who presents with acute weight gain, abdominal distension, and SOB Fever and chills 08/31/2014 04/22/2017 Overview: Tmax 38.7 this AM; pt reports recent history of tooth extraction One time fever yesterday Received 2 time cefazolin after PFO closure. Plan: -UA, BCxx2 - NG till now -will hold off on abx for now and observe Retained dental root 08/15/2014 12/23/2021 Hepatopulmonary syndrome 03/12/2014 018 Overview: History of hepatopulmonary syndrome with ~45.2% shunt, pulmonary sarcoidosis requiring home O2 6-10 liters and mild pulmonary HTN Preop PaO2 ~55 on RA Profound hypoxia postoperatively requiring max vent support with high PEEP, heavy sedation/paralytics, flolan, nitric oxide (off since 10/26) Course c/b Right lung Pneumothorax, resp failure requiring trach 11/01 Decompensation 11/04 secondary to narcotic withdrawal +/- sepsis-->Drastically improved with fentanyl infusion, ATB. Updated echo 11/15 with EF 55%, normal RV Currently doing great, on continuous trach collar with passy etta valve, and diet -- Goal sats 85% -- Continue TC, PMV, OOB Bicytopenia 03/12/2014 04/22/2017 Overview: He has plat count of 20k and WCC of around 1000 His neutropenia is likely 2/2 to INF His thrombocytopenia is likley 2/2 to his cirrhosis Plan: Watch, transfuse plats if <10k or bleeding Pancytopenia 03/11/2014 03/12/2014 Hypoxemia 03/11/2014 10/15/2015 Overview: Due to underlying HPS Now on 100% Fio2 with last PaO2 60, Nitric oxide started 10/08, at 40 PPM. O2 sats maintaining in 80s CTS consulted for ECMO evaluation -- Given profound thrombocytopenia and grave condition ECMO not recommended -- Continue nitric oxide -- lung protective ventilation -- increased I:E ratio (at 2.4:1), paralyze with rocuronium if needed -- goal of O2 sats in 70s permissible COPD (chronic obstructive pulmonary disease) 03/12/2014 Coagulopathy 03/11/2014 04/22/2017 Syncope 01/03/2014 04/22/2017 Epididymitis 11/24/2013 04/22/2017 Testalgia 11/24/2013 04/22/2017 Thrombocytopenia 08/20/2009 04/22/2017 Overview: Platelets 96k today, received platelets 10/11 prior to liver biopsy. no obvious bleeding -- monitor CBC, coags -- transfuse as required -- monitor for bleeding -- transfuse plts prior to invasive procedures Hepatitis C 08/20/2009 11/03/2014 Cirrhosis 04/22/2017 Overview: Secondary to alcohol use and HCV complicated by ascites, PSE (on lactulose, rifaximin) and hepatopulmonary syndrome on home O2 s/p OLT on 10/03/15 Concern for rejection (humoral), now s/p thymo, IVIG, plasmapheresis 10/15 and 10/16 completed -hydrocortisone (switched from prednisone) now tapering down - MMF - FK documented as of this encounter (statuses as of 01/08/2022) [facility] History of Past illness Narrative* Problem Noted Date Resolved Date Hilar adenopathy 07/09/2018 08/19/2018 Last Assessment & Plan: Assessment: CT A/P on Admission shows Significant subcarinal and bilateral hilar adenopathy on the lower images through the chest. Lymphoproliferative disease suspected He does have a hx of sarcoid But no recent CT chest/CXR to compare. CT chest shows SPLENOMEGALY AND NUMEROUS ENLARGED MEDIASTINAL AND BILATERAL HILAR LYMPH NODES, INCREASED IN SIZE SINCE 2016. THE DIFFERENTIAL DIAGNOSIS INCLUDES SARCOIDOSIS AND LYMPHOPROLIFERATIVE DISEASE. PLAN: -Transfer to [facility] for further evaluation by oncology per ID recommedation. Nausea & vomiting 07/09/2018 07/28/2018 Last Assessment & Plan: Assessment: Patient notes off and on nausea for one month. Also notes worsening control of his reflux symptoms. CTA/P shows significant subcarinal and bilateral hilar adenopathy and new subtle intrahepatic biliary dilatation and common duct dilatation . Obstructing lesion must be excluded, however.Splenic enlargement PLAN: -Increase protonix to 40mg bid -Zofran PRN for N/V -GI consult pending. Cellulitis 07/09/2018 07/13/2018 Abdominal wall cellulitis 12/01/20172021 Last Assessment & Plan: Assessment: Second Episode this year . Likely due to his constant picking of the skin of his abdomen. He is HDS, no leucocytosis,crp 2.6,ESR 2,lactate normal CTA/P shows no abscess nor cellulitis . PLAN: Continue ancef started in the ER. Continue bactrim as scheduled for prophylaxis - due to hx of liver transplant PRN morphine for pain. ID consult (because of his immunocompromised state - hx of liver transplant/ommunesuppresants) Wound care consult (re:open areas on his abdomen due to his scratching) F/up on blood Culture Ventral hernia without obstruction or gangrene 0 03/24/2017 04/22/2017 Lower abdominal pain 07/23/2016 04/22/2017 Opioid withdrawal 11/09/2015 04/22/2017 Overview: Thursday with opioid withdrawal after attempted discontinuation of fentanyl Resolution of symptoms after re-starting fentanyl -- Continue fentanyl patch with prn IVP fentanyl for breakthrough pain -- Drip stopped 3/2 Respiratory failure, post-operative 10/22/2015 04/22/2017 Overview: Pt intubated for OLT on 10/03/15, remained intubated d/t severe hypoxia (see hepato pulmonary syndrome) 11/01 s/p tracheostomy Very weak and debilitated, profound ICU neuromyopathy Currently improved, toleratingTC, passy etta valve capped -- continue trach collar, PMV Acute pneumothorax 10/17/2015 04/22/2017 Prerenal azotemia 10/17/2015 10/24/2015 Overview: Bun/ Creat ratio now trending down. Hypernatremia resolved -- trend Renal indices -- lasix 20 mg q8 Acute pulmonary embolism 10/17/2015 017 Spontaneous pneumothorax 10/16/2015 017 Overview: Pneumothorax discovered on CT chest 10/15 in setting of high PEEP requirements s/p chest tube placements x2 Last CT removed 11/02 CXR with small persistent Rt. Apical pneumothorax- not appeciated on today's CXR --continue to follow daily CXRs Pneumonia, organism unspecified([phone]) 10/16/2015 11/02/2015 Overview: CT of chest 10/15 shows RLL consolidation suspicious for pneumonia. Completed course of vanco and meropenem continuing micfungin. Sputum culture from 10/09 shows normal respiratory erum. legionella urinary antigen negative --ID following Sepsis due to other etiology 10/15/201505/2017 Overview: Has completed empiric courses of antibiotics for persistent low grade fevers and acute decompensation No obvious source of infection identified per extensive ID workup Vanco d/c 10/25, Meropenem d/c 10/26 11/04 Acute decompensation (fevers 11/05) empiric pip-tazo, vanc, micafungin added--> off since 11/11 (cultures negative) CT chest/ab/pelvis (11/08) with no evidence of infective process -- continue to monitor off ATB Postoperative shock 10/09/2015 04/22/2017 Overview: Shock, hypotension, fevers with increasing leukocytosis in setting of liver transplant, hepatopulmonary syndrome, ARDS, hypoxia. Profound hypoxia requiring nitric oxide therapy. Required low dose levo for BP support, now off. Concern for sepsis, blood cultures negative to date, vanco and zosyn started empirically 10/08. Procalcitonin 1.06. Lacate 1.8 -- Follow cultures -- continue vanco and zosyn -- levo for BP support (avoid fluid boluses if hypotensive) Electrolyte and fluid disorder 10/07/2015 0 04/22/2017 Overview: Hypomagnesemia repleted, hyperphos -- monitor and replete lytes daily -- increase daily PO mag oxide to 800 mg TID New onset seizure 10/05/2015 11/22/2019 Overview: Seizure activity 10/05, BEM supported the dx of cortical dysfunction in the left hemisphere with potential epileptogenicity in the left fronto-central region CT head negative for acute process, neurology consulted, loaded with Keppra Currently alert, follows commands -- weaned to Keppra 500mg bid -- neurology recommending follow up with epilepsy as outpatient ARDS (adult respiratory distress syndrome) 10/0504/22/2017 Overview: Hx of hepatopulmonary syndrome, pulmonary sarcoidosis requiring home O2 6-10 liters Pulmonary HTN with ~45% shunt. Pre-op PaO2 ~55 on RA CXR now with bilateral fluffy infiltrates / ARDS w/ pulmonary edema Desaturates with movement, turning, suctioning. Space = 60% today, with compliance ~45 -- maintain aggressive vent support (100% FiO2, wean PEEP is able as higher PEEP to increase shunt) -- lung protective strategies - Vt 6ml/kg ideal body weight (~350ml) -- trach on hold while unstable -- lasix TID -- Continue Nitric oxide -- increased I:E ratio -- avoid fluid boluses for hypotension - use pressors if needed -- sputum sent for culture Postoperative anemia due to acute blood loss 04/22/2017 Overview: S/P liver transplant with EBL 17 L c/b thrombocytopenia, coagulopahty and OP bleeding requiring intra-op nasal and pharyngeal packing Last transfused 10/08 2U PRBCs. 10/10: ENT removed nasal merocel. Clots in both nasopharyxes. No reinsertion of nasal tubes. -- monitor CBC and coags -- transfuse as required Agitation requiring sedation protocol 10/05/2015 04/22/2017 Overview: Required prolonged neuromuscular blockade with deep sedation secondary to increased WOB, breath stacking and hypoxia After discontinuation, he has had difficultly controlling agitation, likely opioid withdrawl. Had required precedex, fentanyl patch, prn haldol, seroquel Currently on seroquel, fentanyl patch Has been awake and alert, very cooperative -- continue on decreased TID seroquel dosing of 25mg TID and 150 mg qHS -- continue with fentanyl patch Acute post-operative pain 10/05/20152016 Overview: Was on prolonged fentanyl infusion d/t vent asynchrony, pain from liver tx Now transitioned to patch, infusion stopped 11/13 -- continue fentanyl patch (100mcg) Renal insufficiency 10/05/2015 10/08/2015 Overview: Secondary to hypotension Baseline Scr 0.66, now down to 0.83 Making good UO -- monitor renal indices Stress hyperglycemia 10/05/2015 04/22/2017 Overview: -- Adequate glycemic control with SSI Moderate protein-calorie malnutrition 10/05/2015 04/22/2017 Overview: Tolerating goal tube feeds Osmolite 1.2 @ 70 Prealbumin 26, transferrin 185 -- continue TF with fiber and beneprotien and full liquid diet -- nutrition following Abdominal distension 09/12/2015 04/22/2017 Overview: - concerning given weight gain of 30 lb from 09/04 - CT abdomen on last admission showed tissue edema> ascites, concern for third spacing in the abdominal wall tissue - no evidence of active infection, however, currently pancytopenia - was taking Lasix 20 mg PO every other day and spironolactone 50 mg PO daily - Liver vascular U/S demonstrates patent vasculature Plan - diuresis with Lasix 40 mg PO BID and spironolactone 100 mg PO daily - paracentesis as needed for respiratory function Liver transplant candidate 08/17/201504/22 Pain disorder with psychological factors 015 12/23/2021 Hyperammonemia 07/20/2015 04/22/2017 SUMMARY 06/14/2015 09/12/2015 Overview: Mr. 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 SOB (shortness of breath) 06/14/20152016 Overview: Started after dry run Possibly irritated by catheter? Systolic murmur also heard Chest x-ray and CT PE negative Currently at baseline New valvular lesion vs clot? -Echocardiogram -Doppler study -Observe for now Hepatic cirrhosis 06/14/2015 04/22/2017 Overview: #Cirrhosis -Continue lactulose, rifaximin -Continue aldactone Infection of other external stoma of urinary tra ct 05/17/2015 04/22/2017 UTI (lower urinary tract infection) 04/08/2015 04/22/2017 Overview: Was complaining of dysuria. UA positive with leukoesterase and Was started of ceftriaxone at OSH. Received 2 dosages here yesterday and one today. Will finish treatment for complicated UTI at home with cipro [id number] Hepatic encephalopathy 04/08/2015 7 Overview: On lactulose zinc Rifaximin Fever, low grade 11/03/2014 04/22/2017 Overview: Low grade fever on presentation UA clean Plan - Blood cx ngtd - afebrile since SUMMARY 08/31/2014 07/24/2016 Overview: The patient is a 50 yo male with a past medical history of HCV/ETOH Liver Cirrhosis c/b hepatopulmonary syndrome, hypersplenism, HE, Grade I EV, pulmonary sarcoidosis who presents with acute weight gain, abdominal distension, and SOB Fever and chills 08/31/2014 04/22/2017 Overview: Tmax 38.7 this AM; pt reports recent history of tooth extraction One time fever yesterday Received 2 time cefazolin after PFO closure. Plan: -UA, BCxx2 - NG till now -will hold off on abx for now and observe Retained dental root 08/15/2014 12/23/2021 Hepatopulmonary syndrome 03/12/2014 018 Overview: History of hepatopulmonary syndrome with ~45.2% shunt, pulmonary sarcoidosis requiring home O2 6-10 liters and mild pulmonary HTN Preop PaO2 ~55 on RA Profound hypoxia postoperatively requiring max vent support with high PEEP, heavy sedation/paralytics, flolan, nitric oxide (off since 10/26) Course c/b Right lung Pneumothorax, resp failure requiring trach 11/01 Decompensation 11/04 secondary to narcotic withdrawal +/- sepsis-->Drastically improved with fentanyl infusion, ATB. Updated echo 11/15 with EF 55%, normal RV Currently doing great, on continuous trach collar with passy etta valve, and diet -- Goal sats 85% -- Continue TC, PMV, OOB Bicytopenia 03/12/2014 04/22/2017 Overview: He has plat count of 20k and WCC of around 1000 His neutropenia is likely 2/2 to INF His thrombocytopenia is likley 2/2 to his cirrhosis Plan: Watch, transfuse plats if <10k or bleeding Pancytopenia 03/11/2014 03/12/2014 Hypoxemia 03/11/2014 10/15/2015 Overview: Due to underlying HPS Now on 100% Fio2 with last PaO2 60, Nitric oxide started 10/08, at 40 PPM. O2 sats maintaining in 80s CTS consulted for ECMO evaluation -- Given profound thrombocytopenia and grave condition ECMO not recommended -- Continue nitric oxide -- lung protective ventilation -- increased I:E ratio (at 2.4:1), paralyze with rocuronium if needed -- goal of O2 sats in 70s permissible COPD (chronic obstructive pulmonary disease) 03/12/2014 Coagulopathy 03/11/2014 04/22/2017 Syncope 01/03/2014 04/22/2017 Epididymitis 11/24/2013 04/22/2017 Testalgia 11/24/2013 04/22/2017 Thrombocytopenia 08/20/2009 04/22/2017 Overview: Platelets 96k today, received platelets 10/11 prior to liver biopsy. no obvious bleeding -- monitor CBC, coags -- transfuse as required -- monitor for bleeding -- transfuse plts prior to invasive procedures Hepatitis C 08/20/2009 11/03/2014 Cirrhosis 04/22/2017 Overview: Secondary to alcohol use and HCV complicated by ascites, PSE (on lactulose, rifaximin) and hepatopulmonary syndrome on home O2 s/p OLT on 10/03/15 Concern for rejection (humoral), now s/p thymo, IVIG, plasmapheresis 10/15 and 10/16 completed -hydrocortisone (switched from prednisone) now tapering down - MMF - FK documented as of this encounter (statuses as of 01/08/2022) [facility] History of Past illness Narrative* Problem Noted Date Resolved Date Hilar adenopathy 07/09/2018 08/19/2018 Last Assessment & Plan: Assessment: CT A/P on Admission shows Significant subcarinal and bilateral hilar adenopathy on the lower images through the chest. Lymphoproliferative disease suspected He does have a hx of sarcoid But no recent CT chest/CXR to compare. CT chest shows SPLENOMEGALY AND NUMEROUS ENLARGED MEDIASTINAL AND BILATERAL HILAR LYMPH NODES, INCREASED IN SIZE SINCE 2016. THE DIFFERENTIAL DIAGNOSIS INCLUDES SARCOIDOSIS AND LYMPHOPROLIFERATIVE DISEASE. PLAN: -Transfer to [facility] for further evaluation by oncology per ID recommedation. Nausea & vomiting 07/09/2018 07/28/2018 Last Assessment & Plan: Assessment: Patient notes off and on nausea for one month. Also notes worsening control of his reflux symptoms. CTA/P shows significant subcarinal and bilateral hilar adenopathy and new subtle intrahepatic biliary dilatation and common duct dilatation . Obstructing lesion must be excluded, however.Splenic enlargement PLAN: -Increase protonix to 40mg bid -Zofran PRN for N/V -GI consult pending. Cellulitis 07/09/2018 07/13/2018 Abdominal wall cellulitis 12/01/20172021 Last Assessment & Plan: Assessment: Second Episode this year . Likely due to his constant picking of the skin of his abdomen. He is HDS, no leucocytosis,crp 2.6,ESR 2,lactate normal CTA/P shows no abscess nor cellulitis . PLAN: Continue ancef started in the ER. Continue bactrim as scheduled for prophylaxis - due to hx of liver transplant PRN morphine for pain. ID consult (because of his immunocompromised state - hx of liver transplant/ommunesuppresants) Wound care consult (re:open areas on his abdomen due to his scratching) F/up on blood Culture Ventral hernia without obstruction or gangrene 0 03/24/2017 04/22/2017 Lower abdominal pain 07/23/2016 04/22/2017 Opioid withdrawal 11/09/2015 04/22/2017 Overview: Thursday with opioid withdrawal after attempted discontinuation of fentanyl Resolution of symptoms after re-starting fentanyl -- Continue fentanyl patch with prn IVP fentanyl for breakthrough pain -- Drip stopped 3/2 Respiratory failure, post-operative 10/22/2015 04/22/2017 Overview: Pt intubated for OLT on 10/03/15, remained intubated d/t severe hypoxia (see hepato pulmonary syndrome) 11/01 s/p tracheostomy Very weak and debilitated, profound ICU neuromyopathy Currently improved, toleratingTC, passy etta valve capped -- continue trach collar, PMV Acute pneumothorax 10/17/2015 04/22/2017 Prerenal azotemia 10/17/2015 10/24/2015 Overview: Bun/ Creat ratio now trending down. Hypernatremia resolved -- trend Renal indices -- lasix 20 mg q8 Acute pulmonary embolism 10/17/2015 017 Spontaneous pneumothorax 10/16/2015 017 Overview: Pneumothorax discovered on CT chest 10/15 in setting of high PEEP requirements s/p chest tube placements x2 Last CT removed 11/02 CXR with small persistent Rt. Apical pneumothorax- not appeciated on today's CXR --continue to follow daily CXRs Pneumonia, organism unspecified(486) 10/16/2015 11/02/2015 Overview: CT of chest 10/15 shows RLL consolidation suspicious for pneumonia. Completed course of vanco and meropenem continuing micfungin. Sputum culture from 10/09 shows normal respiratory erum. legionella urinary antigen negative --ID following Sepsis due to other etiology 10/15/201505/2017 Overview: Has completed empiric courses of antibiotics for persistent low grade fevers and acute decompensation No obvious source of infection identified per extensive ID workup Vanco d/c 10/25, Meropenem d/c 10/26 11/04 Acute decompensation (fevers 11/05) empiric pip-tazo, vanc, micafungin added--> off since 11/11 (cultures negative) CT chest/ab/pelvis (11/08) with no evidence of infective process -- continue to monitor off ATB Postoperative shock 10/09/2015 04/22/2017 Overview: Shock, hypotension, fevers with increasing leukocytosis in setting of liver transplant, hepatopulmonary syndrome, ARDS, hypoxia. Profound hypoxia requiring nitric oxide therapy. Required low dose levo for BP support, now off. Concern for sepsis, blood cultures negative to date, vanco and zosyn started empirically 10/08. Procalcitonin 1.06. Lacate 1.8 -- Follow cultures -- continue vanco and zosyn -- levo for BP support (avoid fluid boluses if hypotensive) Electrolyte and fluid disorder 10/07/2015 0 04/22/2017 Overview: Hypomagnesemia repleted, hyperphos -- monitor and replete lytes daily -- increase daily PO mag oxide to 800 mg TID New onset seizure 10/05/2015 11/22/2019 Overview: Seizure activity 10/05, BEM supported the dx of cortical dysfunction in the left hemisphere with potential epileptogenicity in the left fronto-central region CT head negative for acute process, neurology consulted, loaded with Keppra Currently alert, follows commands -- weaned to Keppra 500mg bid -- neurology recommending follow up with epilepsy as outpatient ARDS (adult respiratory distress syndrome) 10/0504/22/2017 Overview: Hx of hepatopulmonary syndrome, pulmonary sarcoidosis requiring home O2 6-10 liters Pulmonary HTN with ~45% shunt. Pre-op PaO2 ~55 on RA CXR now with bilateral fluffy infiltrates / ARDS w/ pulmonary edema Desaturates with movement, turning, suctioning. Space = 60% today, with compliance ~45 -- maintain aggressive vent support (100% FiO2, wean PEEP is able as higher PEEP to increase shunt) -- lung protective strategies - Vt 6ml/kg ideal body weight (~350ml) -- trach on hold while unstable -- lasix TID -- Continue Nitric oxide -- increased I:E ratio -- avoid fluid boluses for hypotension - use pressors if needed -- sputum sent for culture Postoperative anemia due to acute blood loss 04/22/2017 Overview: S/P liver transplant with EBL 17 L c/b thrombocytopenia, coagulopahty and OP bleeding requiring intra-op nasal and pharyngeal packing Last transfused 10/08 2U PRBCs. 10/10: ENT removed nasal merocel. Clots in both nasopharyxes. No reinsertion of nasal tubes. -- monitor CBC and coags -- transfuse as required Agitation requiring sedation protocol 10/05/2015 04/22/2017 Overview: Required prolonged neuromuscular blockade with deep sedation secondary to increased WOB, breath stacking and hypoxia After discontinuation, he has had difficultly controlling agitation, likely opioid withdrawl. Had required precedex, fentanyl patch, prn haldol, seroquel Currently on seroquel, fentanyl patch Has been awake and alert, very cooperative -- continue on decreased TID seroquel dosing of 25mg TID and 150 mg qHS -- continue with fentanyl patch Acute post-operative pain 10/05/20152016 Overview: Was on prolonged fentanyl infusion d/t vent asynchrony, pain from liver tx Now transitioned to patch, infusion stopped 11/13 -- continue fentanyl patch (100mcg) Renal insufficiency 10/05/2015 10/08/2015 Overview: Secondary to hypotension Baseline Scr 0.66, now down to 0.83 Making good UO -- monitor renal indices Stress hyperglycemia 10/05/2015 04/22/2017 Overview: -- Adequate glycemic control with SSI Moderate protein-calorie malnutrition 10/05/2015 04/22/2017 Overview: Tolerating goal tube feeds Osmolite 1.2 @ 70 Prealbumin 26, transferrin 185 -- continue TF with fiber and beneprotien and full liquid diet -- nutrition following Abdominal distension 09/12/2015 04/22/2017 Overview: - concerning given weight gain of 30 lb from 09/04 - CT abdomen on last admission showed tissue edema> ascites, concern for third spacing in the abdominal wall tissue - no evidence of active infection, however, currently pancytopenia - was taking Lasix 20 mg PO every other day and spironolactone 50 mg PO daily - Liver vascular U/S demonstrates patent vasculature Plan - diuresis with Lasix 40 mg PO BID and spironolactone 100 mg PO daily - paracentesis as needed for respiratory function Liver transplant candidate 08/17/201504/22 Pain disorder with psychological factors 015 12/23/2021 Hyperammonemia 07/20/2015 04/22/2017 SUMMARY 06/14/2015 09/12/2015 Overview: Mr. 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 SOB (shortness of breath) 06/14/20152016 Overview: Started after dry run Possibly irritated by catheter? Systolic murmur also heard Chest x-ray and CT PE negative Currently at baseline New valvular lesion vs clot? -Echocardiogram -Doppler study -Observe for now Hepatic cirrhosis 06/14/2015 04/22/2017 Overview: #Cirrhosis -Continue lactulose, rifaximin -Continue aldactone Infection of other external stoma of urinary tra ct 05/17/2015 04/22/2017 UTI (lower urinary tract infection) 04/08/2015 04/22/2017 Overview: Was complaining of dysuria. UA positive with leukoesterase and Was started of ceftriaxone at OSH. Received 2 dosages here yesterday and one today. Will finish treatment for complicated UTI at home with cipro 500BID Hepatic encephalopathy 04/08/2015 7 Overview: On lactulose zinc Rifaximin Fever, low grade 11/03/2014 04/22/2017 Overview: Low grade fever on presentation UA clean Plan - Blood cx ngtd - afebrile since SUMMARY 08/31/2014 07/24/2016 Overview: The patient is a 50 yo male with a past medical history of HCV/ETOH Liver Cirrhosis c/b hepatopulmonary syndrome, hypersplenism, HE, Grade I EV, pulmonary sarcoidosis who presents with acute weight gain, abdominal distension, and SOB Fever and chills 08/31/2014 04/22/2017 Overview: Tmax 38.7 this AM; pt reports recent history of tooth extraction One time fever yesterday Received 2 time cefazolin after PFO closure. Plan: -UA, BCxx2 - NG till now -will hold off on abx for now and observe Retained dental root 08/15/2014 12/23/2021 Hepatopulmonary syndrome 03/12/2014 018 Overview: History of hepatopulmonary syndrome with ~45.2% shunt, pulmonary sarcoidosis requiring home O2 6-10 liters and mild pulmonary HTN Preop PaO2 ~55 on RA Profound hypoxia postoperatively requiring max vent support with high PEEP, heavy sedation/paralytics, flolan, nitric oxide (off since 10/26) Course c/b Right lung Pneumothorax, resp failure requiring trach 11/01 Decompensation 11/04 secondary to narcotic withdrawal +/- sepsis-->Drastically improved with fentanyl infusion, ATB. Updated echo 11/15 with EF 55%, normal RV Currently doing great, on continuous trach collar with passy etta valve, and diet -- Goal sats 85% -- Continue TC, PMV, OOB Bicytopenia 03/12/2014 04/22/2017 Overview: He has plat count of 20k and WCC of around 1000 His neutropenia is likely 2/2 to INF His thrombocytopenia is likley 2/2 to his cirrhosis Plan: Watch, transfuse plats if <10k or bleeding Pancytopenia 03/11/2014 03/12/2014 Hypoxemia 03/11/2014 10/15/2015 Overview: Due to underlying HPS Now on 100% Fio2 with last PaO2 60, Nitric oxide started 10/08, at 40 PPM. O2 sats maintaining in 80s CTS consulted for ECMO evaluation -- Given profound thrombocytopenia and grave condition ECMO not recommended -- Continue nitric oxide -- lung protective ventilation -- increased I:E ratio (at 2.4:1), paralyze with rocuronium if needed -- goal of O2 sats in 70s permissible COPD (chronic obstructive pulmonary disease) 03/12/2014 Coagulopathy 03/11/2014 04/22/2017 Syncope 01/03/2014 04/22/2017 Epididymitis 11/24/2013 04/22/2017 Testalgia 11/24/2013 04/22/2017 Thrombocytopenia 08/20/2009 04/22/2017 Overview: Platelets 96k today, received platelets 10/11 prior to liver biopsy. no obvious bleeding -- monitor CBC, coags -- transfuse as required -- monitor for bleeding -- transfuse plts prior to invasive procedures Hepatitis C 08/20/2009 11/03/2014 Cirrhosis 04/22/2017 Overview: Secondary to alcohol use and HCV complicated by ascites, PSE (on lactulose, rifaximin) and hepatopulmonary syndrome on home O2 s/p OLT on 10/03/15 Concern for rejection (humoral), now s/p thymo, IVIG, plasmapheresis 10/15 and 10/16 completed -hydrocortisone (switched from prednisone) now tapering down - MMF - FK documented as of this encounter (statuses as of 01/10/2022) [facility] History of Past illness Narrative* Problem Noted Date Resolved Date Hilar adenopathy 07/09/2018 08/19/2018 Last Assessment & Plan: Assessment: CT A/P on Admission shows Significant subcarinal and bilateral hilar adenopathy on the lower images through the chest. Lymphoproliferative disease suspected He does have a hx of sarcoid But no recent CT chest/CXR to compare. CT chest shows SPLENOMEGALY AND NUMEROUS ENLARGED MEDIASTINAL AND BILATERAL HILAR LYMPH NODES, INCREASED IN SIZE SINCE 2016. THE DIFFERENTIAL DIAGNOSIS INCLUDES SARCOIDOSIS AND LYMPHOPROLIFERATIVE DISEASE. PLAN: -Transfer to [facility] for further evaluation by oncology per ID recommedation. Nausea & vomiting 07/09/2018 07/28/2018 Last Assessment & Plan: Assessment: Patient notes off and on nausea for one month. Also notes worsening control of his reflux symptoms. CTA/P shows significant subcarinal and bilateral hilar adenopathy and new subtle intrahepatic biliary dilatation and common duct dilatation . Obstructing lesion must be excluded, however.Splenic enlargement PLAN: -Increase protonix to 40mg bid -Zofran PRN for N/V -GI consult pending. Cellulitis 07/09/2018 07/13/2018 Abdominal wall cellulitis 12/01/20172021 Last Assessment & Plan: Assessment: Second Episode this year . Likely due to his constant picking of the skin of his abdomen. He is HDS, no leucocytosis,crp 2.6,ESR 2,lactate normal CTA/P shows no abscess nor cellulitis . PLAN: Continue ancef started in the ER. Continue bactrim as scheduled for prophylaxis - due to hx of liver transplant PRN morphine for pain. ID consult (because of his immunocompromised state - hx of liver transplant/ommunesuppresants) Wound care consult (re:open areas on his abdomen due to his scratching) F/up on blood Culture Ventral hernia without obstruction or gangrene 0 03/24/2017 04/22/2017 Lower abdominal pain 07/23/2016 04/22/2017 Opioid withdrawal 11/09/2015 04/22/2017 Overview: Thursday with opioid withdrawal after attempted discontinuation of fentanyl Resolution of symptoms after re-starting fentanyl -- Continue fentanyl patch with prn IVP fentanyl for breakthrough pain -- Drip stopped 3/2 Respiratory failure, post-operative 10/22/2015 04/22/2017 Overview: Pt intubated for OLT on 10/03/15, remained intubated d/t severe hypoxia (see hepato pulmonary syndrome) 11/01 s/p tracheostomy Very weak and debilitated, profound ICU neuromyopathy Currently improved, toleratingTC, passy etta valve capped -- continue trach collar, PMV Acute pneumothorax 10/17/2015 04/22/2017 Prerenal azotemia 10/17/2015 10/24/2015 Overview: Bun/ Creat ratio now trending down. Hypernatremia resolved -- trend Renal indices -- lasix 20 mg q8 Acute pulmonary embolism 10/17/2015 017 Spontaneous pneumothorax 10/16/2015 017 Overview: Pneumothorax discovered on CT chest 10/15 in setting of high PEEP requirements s/p chest tube placements x2 Last CT removed 11/02 CXR with small persistent Rt. Apical pneumothorax- not appeciated on today's CXR --continue to follow daily CXRs Pneumonia, organism unspecified([phone]) 10/16/2015 11/02/2015 Overview: CT of chest 10/15 shows RLL consolidation suspicious for pneumonia. Completed course of vanco and meropenem continuing micfungin. Sputum culture from 10/09 shows normal respiratory erum. legionella urinary antigen negative --ID following Sepsis due to other etiology 10/15/201505/2017 Overview: Has completed empiric courses of antibiotics for persistent low grade fevers and acute decompensation No obvious source of infection identified per extensive ID workup Vanco d/c 10/25, Meropenem d/c 10/26 11/04 Acute decompensation (fevers 11/05) empiric pip-tazo, vanc, micafungin added--> off since 11/11 (cultures negative) CT chest/ab/pelvis (11/08) with no evidence of infective process -- continue to monitor off ATB Postoperative shock 10/09/2015 04/22/2017 Overview: Shock, hypotension, fevers with increasing leukocytosis in setting of liver transplant, hepatopulmonary syndrome, ARDS, hypoxia. Profound hypoxia requiring nitric oxide therapy. Required low dose levo for BP support, now off. Concern for sepsis, blood cultures negative to date, vanco and zosyn started empirically 10/08. Procalcitonin 1.06. Lacate 1.8 -- Follow cultures -- continue vanco and zosyn -- levo for BP support (avoid fluid boluses if hypotensive) Electrolyte and fluid disorder 10/07/2015 0 04/22/2017 Overview: Hypomagnesemia repleted, hyperphos -- monitor and replete lytes daily -- increase daily PO mag oxide to 800 mg TID New onset seizure 10/05/2015 11/22/2019 Overview: Seizure activity 10/05, BEM supported the dx of cortical dysfunction in the left hemisphere with potential epileptogenicity in the left fronto-central region CT head negative for acute process, neurology consulted, loaded with Keppra Currently alert, follows commands -- weaned to Keppra 500mg bid -- neurology recommending follow up with epilepsy as outpatient ARDS (adult respiratory distress syndrome) 10/0504/22/2017 Overview: Hx of hepatopulmonary syndrome, pulmonary sarcoidosis requiring home O2 6-10 liters Pulmonary HTN with ~45% shunt. Pre-op PaO2 ~55 on RA CXR now with bilateral fluffy infiltrates / ARDS w/ pulmonary edema Desaturates with movement, turning, suctioning. Space = 60% today, with compliance ~45 -- maintain aggressive vent support (100% FiO2, wean PEEP is able as higher PEEP to increase shunt) -- lung protective strategies - Vt 6ml/kg ideal body weight (~350ml) -- trach on hold while unstable -- lasix TID -- Continue Nitric oxide -- increased I:E ratio -- avoid fluid boluses for hypotension - use pressors if needed -- sputum sent for culture Postoperative anemia due to acute blood loss 04/22/2017 Overview: S/P liver transplant with EBL 17 L c/b thrombocytopenia, coagulopahty and OP bleeding requiring intra-op nasal and pharyngeal packing Last transfused 10/08 2U PRBCs. 10/10: ENT removed nasal merocel. Clots in both nasopharyxes. No reinsertion of nasal tubes. -- monitor CBC and coags -- transfuse as required Agitation requiring sedation protocol 10/05/2015 04/22/2017 Overview: Required prolonged neuromuscular blockade with deep sedation secondary to increased WOB, breath stacking and hypoxia After discontinuation, he has had difficultly controlling agitation, likely opioid withdrawl. Had required precedex, fentanyl patch, prn haldol, seroquel Currently on seroquel, fentanyl patch Has been awake and alert, very cooperative -- continue on decreased TID seroquel dosing of 25mg TID and 150 mg qHS -- continue with fentanyl patch Acute post-operative pain 10/05/20152016 Overview: Was on prolonged fentanyl infusion d/t vent asynchrony, pain from liver tx Now transitioned to patch, infusion stopped 11/13 -- continue fentanyl patch (100mcg) Renal insufficiency 10/05/2015 10/08/2015 Overview: Secondary to hypotension Baseline Scr 0.66, now down to 0.83 Making good UO -- monitor renal indices Stress hyperglycemia 10/05/2015 04/22/2017 Overview: -- Adequate glycemic control with SSI Moderate protein-calorie malnutrition 10/05/2015 04/22/2017 Overview: Tolerating goal tube feeds Osmolite 1.2 @ 70 Prealbumin 26, transferrin 185 -- continue TF with fiber and beneprotien and full liquid diet -- nutrition following Abdominal distension 09/12/2015 04/22/2017 Overview: - concerning given weight gain of 30 lb from 09/04 - CT abdomen on last admission showed tissue edema> ascites, concern for third spacing in the abdominal wall tissue - no evidence of active infection, however, currently pancytopenia - was taking Lasix 20 mg PO every other day and spironolactone 50 mg PO daily - Liver vascular U/S demonstrates patent vasculature Plan - diuresis with Lasix 40 mg PO BID and spironolactone 100 mg PO daily - paracentesis as needed for respiratory function Liver transplant candidate 08/17/201504/22 Pain disorder with psychological factors 015 12/23/2021 Hyperammonemia 07/20/2015 04/22/2017 SUMMARY 06/14/2015 09/12/2015 Overview: Mr. 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 SOB (shortness of breath) 06/14/20152016 Overview: Started after dry run Possibly irritated by catheter? Systolic murmur also heard Chest x-ray and CT PE negative Currently at baseline New valvular lesion vs clot? -Echocardiogram -Doppler study -Observe for now Hepatic cirrhosis 06/14/2015 04/22/2017 Overview: #Cirrhosis -Continue lactulose, rifaximin -Continue aldactone Infection of other external stoma of urinary tra ct 05/17/2015 04/22/2017 UTI (lower urinary tract infection) 04/08/2015 04/22/2017 Overview: Was complaining of dysuria. UA positive with leukoesterase and Was started of ceftriaxone at OSH. Received 2 dosages here yesterday and one today. Will finish treatment for complicated UTI at home with cipro [id number] Hepatic encephalopathy 04/08/2015 7 Overview: On lactulose zinc Rifaximin Fever, low grade 11/03/2014 04/22/2017 Overview: Low grade fever on presentation UA clean Plan - Blood cx ngtd - afebrile since SUMMARY 08/31/2014 07/24/2016 Overview: The patient is a 50 yo male with a past medical history of HCV/ETOH Liver Cirrhosis c/b hepatopulmonary syndrome, hypersplenism, HE, Grade I EV, pulmonary sarcoidosis who presents with acute weight gain, abdominal distension, and SOB Fever and chills 08/31/2014 04/22/2017 Overview: Tmax 38.7 this AM; pt reports recent history of tooth extraction One time fever yesterday Received 2 time cefazolin after PFO closure. Plan: -UA, BCxx2 - NG till now -will hold off on abx for now and observe Retained dental root 08/15/2014 12/23/2021 Hepatopulmonary syndrome 03/12/2014 018 Overview: History of hepatopulmonary syndrome with ~45.2% shunt, pulmonary sarcoidosis requiring home O2 6-10 liters and mild pulmonary HTN Preop PaO2 ~55 on RA Profound hypoxia postoperatively requiring max vent support with high PEEP, heavy sedation/paralytics, flolan, nitric oxide (off since 10/26) Course c/b Right lung Pneumothorax, resp failure requiring trach 11/01 Decompensation 11/04 secondary to narcotic withdrawal +/- sepsis-->Drastically improved with fentanyl infusion, ATB. Updated echo 11/15 with EF 55%, normal RV Currently doing great, on continuous trach collar with passy etta valve, and diet -- Goal sats 85% -- Continue TC, PMV, OOB Bicytopenia 03/12/2014 04/22/2017 Overview: He has plat count of 20k and WCC of around 1000 His neutropenia is likely 2/2 to INF His thrombocytopenia is likley 2/2 to his cirrhosis Plan: Watch, transfuse plats if <10k or bleeding Pancytopenia 03/11/2014 03/12/2014 Hypoxemia 03/11/2014 10/15/2015 Overview: Due to underlying HPS Now on 100% Fio2 with last PaO2 60, Nitric oxide started 10/08, at 40 PPM. O2 sats maintaining in 80s CTS consulted for ECMO evaluation -- Given profound thrombocytopenia and grave condition ECMO not recommended -- Continue nitric oxide -- lung protective ventilation -- increased I:E ratio (at 2.4:1), paralyze with rocuronium if needed -- goal of O2 sats in 70s permissible COPD (chronic obstructive pulmonary disease) 03/12/2014 Coagulopathy 03/11/2014 04/22/2017 Syncope 01/03/2014 04/22/2017 Epididymitis 11/24/2013 04/22/2017 Testalgia 11/24/2013 04/22/2017 Thrombocytopenia 08/20/2009 04/22/2017 Overview: Platelets 96k today, received platelets 10/11 prior to liver biopsy. no obvious bleeding -- monitor CBC, coags -- transfuse as required -- monitor for bleeding -- transfuse plts prior to invasive procedures Hepatitis C 08/20/2009 11/03/2014 Cirrhosis 04/22/2017 Overview: Secondary to alcohol use and HCV complicated by ascites, PSE (on lactulose, rifaximin) and hepatopulmonary syndrome on home O2 s/p OLT on 10/03/15 Concern for rejection (humoral), now s/p thymo, IVIG, plasmapheresis 10/15 and 2 completed -hydrocortisone (switched from prednisone) now tapering down - MMF - FK documented as of this encounter (statuses as of 01/10/2022) [facility] History of Past illness Narrative* Problem Noted Date Resolved Date Hilar adenopathy 07/09/2018 08/19/2018 Last Assessment & Plan: Assessment: CT A/P on Admission shows Significant subcarinal and bilateral hilar adenopathy on the lower images through the chest. Lymphoproliferative disease suspected He does have a hx of sarcoid But no recent CT chest/CXR to compare. CT chest shows SPLENOMEGALY AND NUMEROUS ENLARGED MEDIASTINAL AND BILATERAL HILAR LYMPH NODES, INCREASED IN SIZE SINCE 2016. THE DIFFERENTIAL DIAGNOSIS INCLUDES SARCOIDOSIS AND LYMPHOPROLIFERATIVE DISEASE. PLAN: -Transfer to [facility] for further evaluation by oncology per ID recommedation. Nausea & vomiting 07/09/2018 07/28/2018 Last Assessment & Plan: Assessment: Patient notes off and on nausea for one month. Also notes worsening control of his reflux symptoms. CTA/P shows significant subcarinal and bilateral hilar adenopathy and new subtle intrahepatic biliary dilatation and common duct dilatation . Obstructing lesion must be excluded, however.Splenic enlargement PLAN: -Increase protonix to 40mg bid -Zofran PRN for N/V -GI consult pending. Cellulitis 07/09/2018 07/13/2018 Abdominal wall cellulitis 12/01/20172021 Last Assessment & Plan: Assessment: Second Episode this year . Likely due to his constant picking of the skin of his abdomen. He is HDS, no leucocytosis,crp 2.6,ESR 2,lactate normal CTA/P shows no abscess nor cellulitis . PLAN: Continue ancef started in the ER. Continue bactrim as scheduled for prophylaxis - due to hx of liver transplant PRN morphine for pain. ID consult (because of his immunocompromised state - hx of liver transplant/ommunesuppresants) Wound care consult (re:open areas on his abdomen due to his scratching) F/up on blood Culture Ventral hernia without obstruction or gangrene 0 03/24/2017 04/22/2017 Lower abdominal pain 07/23/2016 04/22/2017 Opioid withdrawal 11/09/2015 04/22/2017 Overview: Thursday with opioid withdrawal after attempted discontinuation of fentanyl Resolution of symptoms after re-starting fentanyl -- Continue fentanyl patch with prn IVP fentanyl for breakthrough pain -- Drip stopped 3/2 Respiratory failure, post-operative 10/22/2015 04/22/2017 Overview: Pt intubated for OLT on 10/03/15, remained intubated d/t severe hypoxia (see hepato pulmonary syndrome) 11/01 s/p tracheostomy Very weak and debilitated, profound ICU neuromyopathy Currently improved, toleratingTC, passy etta valve capped -- continue trach collar, PMV Acute pneumothorax 10/17/2015 04/22/2017 Prerenal azotemia 10/17/2015 10/24/2015 Overview: Bun/ Creat ratio now trending down. Hypernatremia resolved -- trend Renal indices -- lasix 20 mg q8 Acute pulmonary embolism 10/17/2015 017 Spontaneous pneumothorax 10/16/2015 017 Overview: Pneumothorax discovered on CT chest 10/15 in setting of high PEEP requirements s/p chest tube placements x2 Last CT removed 11/02 CXR with small persistent Rt. Apical pneumothorax- not appeciated on today's CXR --continue to follow daily CXRs Pneumonia, organism unspecified(486) 10/16/2015 11/02/2015 Overview: CT of chest 10/15 shows RLL consolidation suspicious for pneumonia. Completed course of vanco and meropenem continuing micfungin. Sputum culture from 10/09 shows normal respiratory erum. legionella urinary antigen negative --ID following Sepsis due to other etiology 10/15/201505/2017 Overview: Has completed empiric courses of antibiotics for persistent low grade fevers and acute decompensation No obvious source of infection identified per extensive ID workup Vanco d/c 10/25, Meropenem d/c 10/26 11/04 Acute decompensation (fevers 11/05) empiric pip-tazo, vanc, micafungin added--> off since 11/11 (cultures negative) CT chest/ab/pelvis (11/08) with no evidence of infective process -- continue to monitor off ATB Postoperative shock 10/09/2015 04/22/2017 Overview: Shock, hypotension, fevers with increasing leukocytosis in setting of liver transplant, hepatopulmonary syndrome, ARDS, hypoxia. Profound hypoxia requiring nitric oxide therapy. Required low dose levo for BP support, now off. Concern for sepsis, blood cultures negative to date, vanco and zosyn started empirically 10/08. Procalcitonin 1.06. Lacate 1.8 -- Follow cultures -- continue vanco and zosyn -- levo for BP support (avoid fluid boluses if hypotensive) Electrolyte and fluid disorder 10/07/2015 0 04/22/2017 Overview: Hypomagnesemia repleted, hyperphos -- monitor and replete lytes daily -- increase daily PO mag oxide to 800 mg TID New onset seizure 10/05/2015 11/22/2019 Overview: Seizure activity 10/05, BEM supported the dx of cortical dysfunction in the left hemisphere with potential epileptogenicity in the left fronto-central region CT head negative for acute process, neurology consulted, loaded with Keppra Currently alert, follows commands -- weaned to Keppra 500mg bid -- neurology recommending follow up with epilepsy as outpatient ARDS (adult respiratory distress syndrome) 10/0504/22/2017 Overview: Hx of hepatopulmonary syndrome, pulmonary sarcoidosis requiring home O2 6-10 liters Pulmonary HTN with ~45% shunt. Pre-op PaO2 ~55 on RA CXR now with bilateral fluffy infiltrates / ARDS w/ pulmonary edema Desaturates with movement, turning, suctioning. Space = 60% today, with compliance ~45 -- maintain aggressive vent support (100% FiO2, wean PEEP is able as higher PEEP to increase shunt) -- lung protective strategies - Vt 6ml/kg ideal body weight (~350ml) -- trach on hold while unstable -- lasix TID -- Continue Nitric oxide -- increased I:E ratio -- avoid fluid boluses for hypotension - use pressors if needed -- sputum sent for culture Postoperative anemia due to acute blood loss 04/22/2017 Overview: S/P liver transplant with EBL 17 L c/b thrombocytopenia, coagulopahty and OP bleeding requiring intra-op nasal and pharyngeal packing Last transfused 10/08 2U PRBCs. 10/10: ENT removed nasal merocel. Clots in both nasopharyxes. No reinsertion of nasal tubes. -- monitor CBC and coags -- transfuse as required Agitation requiring sedation protocol 10/05/2015 04/22/2017 Overview: Required prolonged neuromuscular blockade with deep sedation secondary to increased WOB, breath stacking and hypoxia After discontinuation, he has had difficultly controlling agitation, likely opioid withdrawl. Had required precedex, fentanyl patch, prn haldol, seroquel Currently on seroquel, fentanyl patch Has been awake and alert, very cooperative -- continue on decreased TID seroquel dosing of 25mg TID and 150 mg qHS -- continue with fentanyl patch Acute post-operative pain 10/05/20152016 Overview: Was on prolonged fentanyl infusion d/t vent asynchrony, pain from liver tx Now transitioned to patch, infusion stopped 11/13 -- continue fentanyl patch (100mcg) Renal insufficiency 10/05/2015 10/08/2015 Overview: Secondary to hypotension Baseline Scr 0.66, now down to 0.83 Making good UO -- monitor renal indices Stress hyperglycemia 10/05/2015 04/22/2017 Overview: -- Adequate glycemic control with SSI Moderate protein-calorie malnutrition 10/05/2015 04/22/2017 Overview: Tolerating goal tube feeds Osmolite 1.2 @ 70 Prealbumin 26, transferrin 185 -- continue TF with fiber and beneprotien and full liquid diet -- nutrition following Abdominal distension 09/12/2015 04/22/2017 Overview: - concerning given weight gain of 30 lb from 09/04 - CT abdomen on last admission showed tissue edema> ascites, concern for third spacing in the abdominal wall tissue - no evidence of active infection, however, currently pancytopenia - was taking Lasix 20 mg PO every other day and spironolactone 50 mg PO daily - Liver vascular U/S demonstrates patent vasculature Plan - diuresis with Lasix 40 mg PO BID and spironolactone 100 mg PO daily - paracentesis as needed for respiratory function Liver transplant candidate 08/17/201504/22 Pain disorder with psychological factors 015 12/23/2021 Hyperammonemia 07/20/2015 04/22/2017 SUMMARY 06/14/2015 09/12/2015 Overview: Mr. 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 SOB (shortness of breath) 06/14/20152016 Overview: Started after dry run Possibly irritated by catheter? Systolic murmur also heard Chest x-ray and CT PE negative Currently at baseline New valvular lesion vs clot? -Echocardiogram -Doppler study -Observe for now Hepatic cirrhosis 06/14/2015 04/22/2017 Overview: #Cirrhosis -Continue lactulose, rifaximin -Continue aldactone Infection of other external stoma of urinary tra ct 05/17/2015 04/22/2017 UTI (lower urinary tract infection) 04/08/2015 04/22/2017 Overview: Was complaining of dysuria. UA positive with leukoesterase and Was started of ceftriaxone at OSH. Received 2 dosages here yesterday and one today. Will finish treatment for complicated UTI at home with cipro 500BID Hepatic encephalopathy 04/08/2015 7 Overview: On lactulose zinc Rifaximin Fever, low grade 11/03/2014 04/22/2017 Overview: Low grade fever on presentation UA clean Plan - Blood cx ngtd - afebrile since SUMMARY 08/31/2014 07/24/2016 Overview: The patient is a 50 yo male with a past medical history of HCV/ETOH Liver Cirrhosis c/b hepatopulmonary syndrome, hypersplenism, HE, Grade I EV, pulmonary sarcoidosis who presents with acute weight gain, abdominal distension, and SOB Fever and chills 08/31/2014 04/22/2017 Overview: Tmax 38.7 this AM; pt reports recent history of tooth extraction One time fever yesterday Received 2 time cefazolin after PFO closure. Plan: -UA, BCxx2 - NG till now -will hold off on abx for now and observe Retained dental root 08/15/2014 12/23/2021 Hepatopulmonary syndrome 03/12/2014 018 Overview: History of hepatopulmonary syndrome with ~45.2% shunt, pulmonary sarcoidosis requiring home O2 6-10 liters and mild pulmonary HTN Preop PaO2 ~55 on RA Profound hypoxia postoperatively requiring max vent support with high PEEP, heavy sedation/paralytics, flolan, nitric oxide (off since 10/26) Course c/b Right lung Pneumothorax, resp failure requiring trach 11/01 Decompensation 11/04 secondary to narcotic withdrawal +/- sepsis-->Drastically improved with fentanyl infusion, ATB. Updated echo 11/15 with EF 55%, normal RV Currently doing great, on continuous trach collar with passy etta valve, and diet -- Goal sats 85% -- Continue TC, PMV, OOB Bicytopenia 03/12/2014 04/22/2017 Overview: He has plat count of 20k and WCC of around 1000 His neutropenia is likely 2/2 to INF His thrombocytopenia is likley 2/2 to his cirrhosis Plan: Watch, transfuse plats if <10k or bleeding Pancytopenia 03/11/2014 03/12/2014 Hypoxemia 03/11/2014 10/15/2015 Overview: Due to underlying HPS Now on 100% Fio2 with last PaO2 60, Nitric oxide started 10/08, at 40 PPM. O2 sats maintaining in 80s CTS consulted for ECMO evaluation -- Given profound thrombocytopenia and grave condition ECMO not recommended -- Continue nitric oxide -- lung protective ventilation -- increased I:E ratio (at 2.4:1), paralyze with rocuronium if needed -- goal of O2 sats in 70s permissible COPD (chronic obstructive pulmonary disease) 03/12/2014 Coagulopathy 03/11/2014 04/22/2017 Syncope 01/03/2014 04/22/2017 Epididymitis 11/24/2013 04/22/2017 Testalgia 11/24/2013 04/22/2017 Thrombocytopenia 08/20/2009 04/22/2017 Overview: Platelets 96k today, received platelets 10/11 prior to liver biopsy. no obvious bleeding -- monitor CBC, coags -- transfuse as required -- monitor for bleeding -- transfuse plts prior to invasive procedures Hepatitis C 08/20/2009 11/03/2014 Cirrhosis 04/22/2017 Overview: Secondary to alcohol use and HCV complicated by ascites, PSE (on lactulose, rifaximin) and hepatopulmonary syndrome on home O2 s/p OLT on 10/03/15 Concern for rejection (humoral), now s/p thymo, IVIG, plasmapheresis 10/15 and 10/16 completed -hydrocortisone (switched from prednisone) now tapering down - MMF - FK documented as of this encounter (statuses as of 01/15/2022) [facility] History of Past illness Narrative* Problem Noted Date Resolved Date Hilar adenopathy 07/09/2018 08/19/2018 Last Assessment & Plan: Assessment: CT A/P on Admission shows Significant subcarinal and bilateral hilar adenopathy on the lower images through the chest. Lymphoproliferative disease suspected He does have a hx of sarcoid But no recent CT chest/CXR to compare. CT chest shows SPLENOMEGALY AND NUMEROUS ENLARGED MEDIASTINAL AND BILATERAL HILAR LYMPH NODES, INCREASED IN SIZE SINCE 2016. THE DIFFERENTIAL DIAGNOSIS INCLUDES SARCOIDOSIS AND LYMPHOPROLIFERATIVE DISEASE. PLAN: -Transfer to [facility] for further evaluation by oncology per ID recommedation. Nausea & vomiting 07/09/2018 07/28/2018 Last Assessment & Plan: Assessment: Patient notes off and on nausea for one month. Also notes worsening control of his reflux symptoms. CTA/P shows significant subcarinal and bilateral hilar adenopathy and new subtle intrahepatic biliary dilatation and common duct dilatation . Obstructing lesion must be excluded, however.Splenic enlargement PLAN: -Increase protonix to 40mg bid -Zofran PRN for N/V -GI consult pending. Cellulitis 07/09/2018 07/13/2018 Abdominal wall cellulitis 12/01/20172021 Last Assessment & Plan: Assessment: Second Episode this year . Likely due to his constant picking of the skin of his abdomen. He is HDS, no leucocytosis,crp 2.6,ESR 2,lactate normal CTA/P shows no abscess nor cellulitis . PLAN: Continue ancef started in the ER. Continue bactrim as scheduled for prophylaxis - due to hx of liver transplant PRN morphine for pain. ID consult (because of his immunocompromised state - hx of liver transplant/ommunesuppresants) Wound care consult (re:open areas on his abdomen due to his scratching) F/up on blood Culture Ventral hernia without obstruction or gangrene 0 03/24/2017 04/22/2017 Lower abdominal pain 07/23/2016 04/22/2017 Opioid withdrawal 11/09/2015 04/22/2017 Overview: Thursday with opioid withdrawal after attempted discontinuation of fentanyl Resolution of symptoms after re-starting fentanyl -- Continue fentanyl patch with prn IVP fentanyl for breakthrough pain -- Drip stopped 3/2 Respiratory failure, post-operative 10/22/2015 04/22/2017 Overview: Pt intubated for OLT on 10/03/15, remained intubated d/t severe hypoxia (see hepato pulmonary syndrome) 11/01 s/p tracheostomy Very weak and debilitated, profound ICU neuromyopathy Currently improved, toleratingTC, passy etta valve capped -- continue trach collar, PMV Acute pneumothorax 10/17/2015 04/22/2017 Prerenal azotemia 10/17/2015 10/24/2015 Overview: Bun/ Creat ratio now trending down. Hypernatremia resolved -- trend Renal indices -- lasix 20 mg q8 Acute pulmonary embolism 10/17/2015 017 Spontaneous pneumothorax 10/16/2015 017 Overview: Pneumothorax discovered on CT chest 10/15 in setting of high PEEP requirements s/p chest tube placements x2 Last CT removed 11/02 CXR with small persistent Rt. Apical pneumothorax- not appeciated on today's CXR --continue to follow daily CXRs Pneumonia, organism unspecified([phone]) 10/16/2015 11/02/2015 Overview: CT of chest 10/15 shows RLL consolidation suspicious for pneumonia. Completed course of vanco and meropenem continuing micfungin. Sputum culture from 10/09 shows normal respiratory erum. legionella urinary antigen negative --ID following Sepsis due to other etiology 10/15/201505/2017 Overview: Has completed empiric courses of antibiotics for persistent low grade fevers and acute decompensation No obvious source of infection identified per extensive ID workup Vanco d/c 10/25, Meropenem d/c 10/26 11/04 Acute decompensation (fevers 11/05) empiric pip-tazo, vanc, micafungin added--> off since 11/11 (cultures negative) CT chest/ab/pelvis (11/08) with no evidence of infective process -- continue to monitor off ATB Postoperative shock 10/09/2015 04/22/2017 Overview: Shock, hypotension, fevers with increasing leukocytosis in setting of liver transplant, hepatopulmonary syndrome, ARDS, hypoxia. Profound hypoxia requiring nitric oxide therapy. Required low dose levo for BP support, now off. Concern for sepsis, blood cultures negative to date, vanco and zosyn started empirically 10/08. Procalcitonin 1.06. Lacate 1.8 -- Follow cultures -- continue vanco and zosyn -- levo for BP support (avoid fluid boluses if hypotensive) Electrolyte and fluid disorder 10/07/2015 0 04/22/2017 Overview: Hypomagnesemia repleted, hyperphos -- monitor and replete lytes daily -- increase daily PO mag oxide to 800 mg TID New onset seizure 10/05/2015 11/22/2019 Overview: Seizure activity 10/05, BEM supported the dx of cortical dysfunction in the left hemisphere with potential epileptogenicity in the left fronto-central region CT head negative for acute process, neurology consulted, loaded with Keppra Currently alert, follows commands -- weaned to Keppra 500mg bid -- neurology recommending follow up with epilepsy as outpatient ARDS (adult respiratory distress syndrome) 10/0504/22/2017 Overview: Hx of hepatopulmonary syndrome, pulmonary sarcoidosis requiring home O2 6-10 liters Pulmonary HTN with ~45% shunt. Pre-op PaO2 ~55 on RA CXR now with bilateral fluffy infiltrates / ARDS w/ pulmonary edema Desaturates with movement, turning, suctioning. Space = 60% today, with compliance ~45 -- maintain aggressive vent support (100% FiO2, wean PEEP is able as higher PEEP to increase shunt) -- lung protective strategies - Vt 6ml/kg ideal body weight (~350ml) -- trach on hold while unstable -- lasix TID -- Continue Nitric oxide -- increased I:E ratio -- avoid fluid boluses for hypotension - use pressors if needed -- sputum sent for culture Postoperative anemia due to acute blood loss 04/22/2017 Overview: S/P liver transplant with EBL 17 L c/b thrombocytopenia, coagulopahty and OP bleeding requiring intra-op nasal and pharyngeal packing Last transfused 10/08 2U PRBCs. 10/10: ENT removed nasal merocel. Clots in both nasopharyxes. No reinsertion of nasal tubes. -- monitor CBC and coags -- transfuse as required Agitation requiring sedation protocol 10/05/2015 04/22/2017 Overview: Required prolonged neuromuscular blockade with deep sedation secondary to increased WOB, breath stacking and hypoxia After discontinuation, he has had difficultly controlling agitation, likely opioid withdrawl. Had required precedex, fentanyl patch, prn haldol, seroquel Currently on seroquel, fentanyl patch Has been awake and alert, very cooperative -- continue on decreased TID seroquel dosing of 25mg TID and 150 mg qHS -- continue with fentanyl patch Acute post-operative pain 10/05/20152016 Overview: Was on prolonged fentanyl infusion d/t vent asynchrony, pain from liver tx Now transitioned to patch, infusion stopped 11/13 -- continue fentanyl patch (100mcg) Renal insufficiency 10/05/2015 10/08/2015 Overview: Secondary to hypotension Baseline Scr 0.66, now down to 0.83 Making good UO -- monitor renal indices Stress hyperglycemia 10/05/2015 04/22/2017 Overview: -- Adequate glycemic control with SSI Moderate protein-calorie malnutrition 10/05/2015 04/22/2017 Overview: Tolerating goal tube feeds Osmolite 1.2 @ 70 Prealbumin 26, transferrin 185 -- continue TF with fiber and beneprotien and full liquid diet -- nutrition following Abdominal distension 09/12/2015 04/22/2017 Overview: - concerning given weight gain of 30 lb from 09/04 - CT abdomen on last admission showed tissue edema> ascites, concern for third spacing in the abdominal wall tissue - no evidence of active infection, however, currently pancytopenia - was taking Lasix 20 mg PO every other day and spironolactone 50 mg PO daily - Liver vascular U/S demonstrates patent vasculature Plan - diuresis with Lasix 40 mg PO BID and spironolactone 100 mg PO daily - paracentesis as needed for respiratory function Liver transplant candidate 08/17/201504/22 Pain disorder with psychological factors 015 12/23/2021 Hyperammonemia 07/20/2015 04/22/2017 SUMMARY 06/14/2015 09/12/2015 Overview: Mr. 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 SOB (shortness of breath) 06/14/20152016 Overview: Started after dry run Possibly irritated by catheter? Systolic murmur also heard Chest x-ray and CT PE negative Currently at baseline New valvular lesion vs clot? -Echocardiogram -Doppler study -Observe for now Hepatic cirrhosis 06/14/2015 04/22/2017 Overview: #Cirrhosis -Continue lactulose, rifaximin -Continue aldactone Infection of other external stoma of urinary tra ct 05/17/2015 04/22/2017 UTI (lower urinary tract infection) 04/08/2015 04/22/2017 Overview: Was complaining of dysuria. UA positive with leukoesterase and Was started of ceftriaxone at OSH. Received 2 dosages here yesterday and one today. Will finish treatment for complicated UTI at home with cipro 500BID Hepatic encephalopathy 04/08/2015 7 Overview: On lactulose zinc Rifaximin Fever, low grade 11/03/2014 04/22/2017 Overview: Low grade fever on presentation UA clean Plan - Blood cx ngtd - afebrile since SUMMARY 08/31/2014 07/24/2016 Overview: The patient is a 50 yo male with a past medical history of HCV/ETOH Liver Cirrhosis c/b hepatopulmonary syndrome, hypersplenism, HE, Grade I EV, pulmonary sarcoidosis who presents with acute weight gain, abdominal distension, and SOB Fever and chills 08/31/2014 04/22/2017 Overview: Tmax 38.7 this AM; pt reports recent history of tooth extraction One time fever yesterday Received 2 time cefazolin after PFO closure. Plan: -UA, BCxx2 - NG till now -will hold off on abx for now and observe Retained dental root 08/15/2014 12/23/2021 Hepatopulmonary syndrome 03/12/2014 018 Overview: History of hepatopulmonary syndrome with ~45.2% shunt, pulmonary sarcoidosis requiring home O2 6-10 liters and mild pulmonary HTN Preop PaO2 ~55 on RA Profound hypoxia postoperatively requiring max vent support with high PEEP, heavy sedation/paralytics, flolan, nitric oxide (off since 10/26) Course c/b Right lung Pneumothorax, resp failure requiring trach 11/01 Decompensation 11/04 secondary to narcotic withdrawal +/- sepsis-->Drastically improved with fentanyl infusion, ATB. Updated echo 11/15 with EF 55%, normal RV Currently doing great, on continuous trach collar with passy etta valve, and diet -- Goal sats 85% -- Continue TC, PMV, OOB Bicytopenia 03/12/2014 04/22/2017 Overview: He has plat count of 20k and WCC of around 1000 His neutropenia is likely 2/2 to INF His thrombocytopenia is likley 2/2 to his cirrhosis Plan: Watch, transfuse plats if <10k or bleeding Pancytopenia 03/11/2014 03/12/2014 Hypoxemia 03/11/2014 10/15/2015 Overview: Due to underlying HPS Now on 100% Fio2 with last PaO2 60, Nitric oxide started 10/08, at 40 PPM. O2 sats maintaining in 80s CTS consulted for ECMO evaluation -- Given profound thrombocytopenia and grave condition ECMO not recommended -- Continue nitric oxide -- lung protective ventilation -- increased I:E ratio (at 2.4:1), paralyze with rocuronium if needed -- goal of O2 sats in 70s permissible COPD (chronic obstructive pulmonary disease) 03/12/2014 Coagulopathy 03/11/2014 04/22/2017 Syncope 01/03/2014 04/22/2017 Epididymitis 11/24/2013 04/22/2017 Testalgia 11/24/2013 04/22/2017 Thrombocytopenia 08/20/2009 04/22/2017 Overview: Platelets 96k today, received platelets 10/11 prior to liver biopsy. no obvious bleeding -- monitor CBC, coags -- transfuse as required -- monitor for bleeding -- transfuse plts prior to invasive procedures Hepatitis C 08/20/2009 11/03/2014 Cirrhosis 04/22/2017 Overview: Secondary to alcohol use and HCV complicated by ascites, PSE (on lactulose, rifaximin) and hepatopulmonary syndrome on home O2 s/p OLT on 10/03/15 Concern for rejection (humoral), now s/p thymo, IVIG, plasmapheresis 10/15 and 10/16 completed -hydrocortisone (switched from prednisone) now tapering down - MMF - FK documented as of this encounter (statuses as of 2022) [facility] History of Past illness Narrative* Problem Noted Date Resolved Date Hilar adenopathy 07/09/2018 08/19/2018 Last Assessment & Plan: Assessment: CT A/P on Admission shows Significant subcarinal and bilateral hilar adenopathy on the lower images through the chest. Lymphoproliferative disease suspected He does have a hx of sarcoid But no recent CT chest/CXR to compare. CT chest shows SPLENOMEGALY AND NUMEROUS ENLARGED MEDIASTINAL AND BILATERAL HILAR LYMPH NODES, INCREASED IN SIZE SINCE 2016. THE DIFFERENTIAL DIAGNOSIS INCLUDES SARCOIDOSIS AND LYMPHOPROLIFERATIVE DISEASE. PLAN: -Transfer to [facility] for further evaluation by oncology per ID recommedation. Nausea & vomiting 07/09/2018 07/28/2018 Last Assessment & Plan: Assessment: Patient notes off and on nausea for one month. Also notes worsening control of his reflux symptoms. CTA/P shows significant subcarinal and bilateral hilar adenopathy and new subtle intrahepatic biliary dilatation and common duct dilatation . Obstructing lesion must be excluded, however.Splenic enlargement PLAN: -Increase protonix to 40mg bid -Zofran PRN for N/V -GI consult pending. Cellulitis 07/09/2018 07/13/2018 Abdominal wall cellulitis 12/01/20172021 Last Assessment & Plan: Assessment: Second Episode this year . Likely due to his constant picking of the skin of his abdomen. He is HDS, no leucocytosis,crp 2.6,ESR 2,lactate normal CTA/P shows no abscess nor cellulitis . PLAN: Continue ancef started in the ER. Continue bactrim as scheduled for prophylaxis - due to hx of liver transplant PRN morphine for pain. ID consult (because of his immunocompromised state - hx of liver transplant/ommunesuppresants) Wound care consult (re:open areas on his abdomen due to his scratching) F/up on blood Culture Ventral hernia without obstruction or gangrene 0 03/24/2017 04/22/2017 Lower abdominal pain 07/23/2016 04/22/2017 Opioid withdrawal 11/09/2015 04/22/2017 Overview: Thursday with opioid withdrawal after attempted discontinuation of fentanyl Resolution of symptoms after re-starting fentanyl -- Continue fentanyl patch with prn IVP fentanyl for breakthrough pain -- Drip stopped 3/ Respiratory failure, post-operative 10/22/2015 04/22/2017 Overview: Pt intubated for OLT on 10/03/15, remained intubated d/t severe hypoxia (see hepato pulmonary syndrome) 11/01 s/p tracheostomy Very weak and debilitated, profound ICU neuromyopathy Currently improved, toleratingTC, passy etta valve capped -- continue trach collar, PMV Acute pneumothorax 10/17/2015 04/22/2017 Prerenal azotemia 10/17/2015 10/24/2015 Overview: Bun/ Creat ratio now trending down. Hypernatremia resolved -- trend Renal indices -- lasix 20 mg q8 Acute pulmonary embolism 10/17/2015 017 Spontaneous pneumothorax 10/16/2015 017 Overview: Pneumothorax discovered on CT chest 10/15 in setting of high PEEP requirements s/p chest tube placements x2 Last CT removed 11/02 CXR with small persistent Rt. Apical pneumothorax- not appeciated on today's CXR --continue to follow daily CXRs Pneumonia, organism unspecified(486) 10/16/2015 11/02/2015 Overview: CT of chest 10/15 shows RLL consolidation suspicious for pneumonia. Completed course of vanco and meropenem continuing micfungin. Sputum culture from 10/09 shows normal respiratory erum. legionella urinary antigen negative --ID following Sepsis due to other etiology 10/15/201505/2017 Overview: Has completed empiric courses of antibiotics for persistent low grade fevers and acute decompensation No obvious source of infection identified per extensive ID workup Vanco d/c 10/25, Meropenem d/c 10/26 11/04 Acute decompensation (fevers 11/05) empiric pip-tazo, vanc, micafungin added--> off since 11/11 (cultures negative) CT chest/ab/pelvis (11/08) with no evidence of infective process -- continue to monitor off ATB Postoperative shock 10/09/2015 04/22/2017 Overview: Shock, hypotension, fevers with increasing leukocytosis in setting of liver transplant, hepatopulmonary syndrome, ARDS, hypoxia. Profound hypoxia requiring nitric oxide therapy. Required low dose levo for BP support, now off. Concern for sepsis, blood cultures negative to date, vanco and zosyn started empirically 10/08. Procalcitonin 1.06. Lacate 1.8 -- Follow cultures -- continue vanco and zosyn -- levo for BP support (avoid fluid boluses if hypotensive) Electrolyte and fluid disorder 10/07/2015 0 04/22/2017 Overview: Hypomagnesemia repleted, hyperphos -- monitor and replete lytes daily -- increase daily PO mag oxide to 800 mg TID New onset seizure 10/05/2015 11/22/2019 Overview: Seizure activity 10/05, BEM supported the dx of cortical dysfunction in the left hemisphere with potential epileptogenicity in the left fronto-central region CT head negative for acute process, neurology consulted, loaded with Keppra Currently alert, follows commands -- weaned to Keppra 500mg bid -- neurology recommending follow up with epilepsy as outpatient ARDS (adult respiratory distress syndrome) 10/0504/22/2017 Overview: Hx of hepatopulmonary syndrome, pulmonary sarcoidosis requiring home O2 6-10 liters Pulmonary HTN with ~45% shunt. Pre-op PaO2 ~55 on RA CXR now with bilateral fluffy infiltrates / ARDS w/ pulmonary edema Desaturates with movement, turning, suctioning. Space = 60% today, with compliance ~45 -- maintain aggressive vent support (100% FiO2, wean PEEP is able as higher PEEP to increase shunt) -- lung protective strategies - Vt 6ml/kg ideal body weight (~350ml) -- trach on hold while unstable -- lasix TID -- Continue Nitric oxide -- increased I:E ratio -- avoid fluid boluses for hypotension - use pressors if needed -- sputum sent for culture Postoperative anemia due to acute blood loss 04/22/2017 Overview: S/P liver transplant with EBL 17 L c/b thrombocytopenia, coagulopahty and OP bleeding requiring intra-op nasal and pharyngeal packing Last transfused 10/08 2U PRBCs. 10/10: ENT removed nasal merocel. Clots in both nasopharyxes. No reinsertion of nasal tubes. -- monitor CBC and coags -- transfuse as required Agitation requiring sedation protocol 10/05/2015 04/22/2017 Overview: Required prolonged neuromuscular blockade with deep sedation secondary to increased WOB, breath stacking and hypoxia After discontinuation, he has had difficultly controlling agitation, likely opioid withdrawl. Had required precedex, fentanyl patch, prn haldol, seroquel Currently on seroquel, fentanyl patch Has been awake and alert, very cooperative -- continue on decreased TID seroquel dosing of 25mg TID and 150 mg qHS -- continue with fentanyl patch Acute post-operative pain 10/05/20152016 Overview: Was on prolonged fentanyl infusion d/t vent asynchrony, pain from liver tx Now transitioned to patch, infusion stopped 11/13 -- continue fentanyl patch (100mcg) Renal insufficiency 10/05/2015 10/08/2015 Overview: Secondary to hypotension Baseline Scr 0.66, now down to 0.83 Making good UO -- monitor renal indices Stress hyperglycemia 10/05/2015 04/22/2017 Overview: -- Adequate glycemic control with SSI Moderate protein-calorie malnutrition 10/05/2015 04/22/2017 Overview: Tolerating goal tube feeds Osmolite 1.2 @ 70 Prealbumin 26, transferrin 185 -- continue TF with fiber and beneprotien and full liquid diet -- nutrition following Abdominal distension 09/12/2015 04/22/2017 Overview: - concerning given weight gain of 30 lb from 09/04 - CT abdomen on last admission showed tissue edema> ascites, concern for third spacing in the abdominal wall tissue - no evidence of active infection, however, currently pancytopenia - was taking Lasix 20 mg PO every other day and spironolactone 50 mg PO daily - Liver vascular U/S demonstrates patent vasculature Plan - diuresis with Lasix 40 mg PO BID and spironolactone 100 mg PO daily - paracentesis as needed for respiratory function Liver transplant candidate 08/17/201504/22 Pain disorder with psychological factors 015 12/23/2021 Hyperammonemia 07/20/2015 04/22/2017 SUMMARY 06/14/2015 09/12/2015 Overview: Mr. 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 SOB (shortness of breath) 06/14/20152016 Overview: Started after dry run Possibly irritated by catheter? Systolic murmur also heard Chest x-ray and CT PE negative Currently at baseline New valvular lesion vs clot? -Echocardiogram -Doppler study -Observe for now Hepatic cirrhosis 06/14/2015 04/22/2017 Overview: #Cirrhosis -Continue lactulose, rifaximin -Continue aldactone Infection of other external stoma of urinary tra ct 05/17/2015 04/22/2017 UTI (lower urinary tract infection) 04/08/2015 04/22/2017 Overview: Was complaining of dysuria. UA positive with leukoesterase and Was started of ceftriaxone at OSH. Received 2 dosages here yesterday and one today. Will finish treatment for complicated UTI at home with cipro 500BID Hepatic encephalopathy 04/08/2015 7 Overview: On lactulose zinc Rifaximin Fever, low grade 11/03/2014 04/22/2017 Overview: Low grade fever on presentation UA clean Plan - Blood cx ngtd - afebrile since SUMMARY 08/31/2014 07/24/2016 Overview: The patient is a 50 yo male with a past medical history of HCV/ETOH Liver Cirrhosis c/b hepatopulmonary syndrome, hypersplenism, HE, Grade I EV, pulmonary sarcoidosis who presents with acute weight gain, abdominal distension, and SOB Fever and chills 08/31/2014 04/22/2017 Overview: Tmax 38.7 this AM; pt reports recent history of tooth extraction One time fever yesterday Received 2 time cefazolin after PFO closure. Plan: -UA, BCxx2 - NG till now -will hold off on abx for now and observe Retained dental root 08/15/2014 12/23/2021 Hepatopulmonary syndrome 03/12/2014 018 Overview: History of hepatopulmonary syndrome with ~45.2% shunt, pulmonary sarcoidosis requiring home O2 6-10 liters and mild pulmonary HTN Preop PaO2 ~55 on RA Profound hypoxia postoperatively requiring max vent support with high PEEP, heavy sedation/paralytics, flolan, nitric oxide (off since 10/26) Course c/b Right lung Pneumothorax, resp failure requiring trach 11/01 Decompensation 11/04 secondary to narcotic withdrawal +/- sepsis-->Drastically improved with fentanyl infusion, ATB. Updated echo 11/15 with EF 55%, normal RV Currently doing great, on continuous trach collar with passy etta valve, and diet -- Goal sats 85% -- Continue TC, PMV, OOB Bicytopenia 03/12/2014 04/22/2017 Overview: He has plat count of 20k and WCC of around 1000 His neutropenia is likely 2/2 to INF His thrombocytopenia is likley 2/2 to his cirrhosis Plan: Watch, transfuse plats if <10k or bleeding Pancytopenia 03/11/2014 03/12/2014 Hypoxemia 03/11/2014 10/15/2015 Overview: Due to underlying HPS Now on 100% Fio2 with last PaO2 60, Nitric oxide started 10/08, at 40 PPM. O2 sats maintaining in 80s CTS consulted for ECMO evaluation -- Given profound thrombocytopenia and grave condition ECMO not recommended -- Continue nitric oxide -- lung protective ventilation -- increased I:E ratio (at 2.4:1), paralyze with rocuronium if needed -- goal of O2 sats in 70s permissible COPD (chronic obstructive pulmonary disease) 03/12/2014 Coagulopathy 03/11/2014 04/22/2017 Syncope 01/03/2014 04/22/2017 Epididymitis 11/24/2013 04/22/2017 Testalgia 11/24/2013 04/22/2017 Thrombocytopenia 08/20/2009 04/22/2017 Overview: Platelets 96k today, received platelets 10/11 prior to liver biopsy. no obvious bleeding -- monitor CBC, coags -- transfuse as required -- monitor for bleeding -- transfuse plts prior to invasive procedures Hepatitis C 08/20/2009 11/03/2014 Cirrhosis 04/22/2017 Overview: Secondary to alcohol use and HCV complicated by ascites, PSE (on lactulose, rifaximin) and hepatopulmonary syndrome on home O2 s/p OLT on 10/03/15 Concern for rejection (humoral), now s/p thymo, IVIG, plasmapheresis 10/15 and 2/2 completed -hydrocortisone (switched from prednisone) now tapering down - MMF - FK documented as of this encounter (statuses as of 02/06/2022) [facility] History of Past illness Narrative* Problem Noted Date Resolved Date Hilar adenopathy 07/09/2018 08/19/2018 Last Assessment & Plan: Assessment: CT A/P on Admission shows Significant subcarinal and bilateral hilar adenopathy on the lower images through the chest. Lymphoproliferative disease suspected He does have a hx of sarcoid But no recent CT chest/CXR to compare. CT chest shows SPLENOMEGALY AND NUMEROUS ENLARGED MEDIASTINAL AND BILATERAL HILAR LYMPH NODES, INCREASED IN SIZE SINCE 2016. THE DIFFERENTIAL DIAGNOSIS INCLUDES SARCOIDOSIS AND LYMPHOPROLIFERATIVE DISEASE. PLAN: -Transfer to [facility] for further evaluation by oncology per ID recommedation. Nausea & vomiting 07/09/2018 07/28/2018 Last Assessment & Plan: Assessment: Patient notes off and on nausea for one month. Also notes worsening control of his reflux symptoms. CTA/P shows significant subcarinal and bilateral hilar adenopathy and new subtle intrahepatic biliary dilatation and common duct dilatation . Obstructing lesion must be excluded, however.Splenic enlargement PLAN: -Increase protonix to 40mg bid -Zofran PRN for N/V -GI consult pending. Cellulitis 07/09/2018 07/13/2018 Abdominal wall cellulitis 12/01/20172021 Last Assessment & Plan: Assessment: Second Episode this year . Likely due to his constant picking of the skin of his abdomen. He is HDS, no leucocytosis,crp 2.6,ESR 2,lactate normal CTA/P shows no abscess nor cellulitis . PLAN: Continue ancef started in the ER. Continue bactrim as scheduled for prophylaxis - due to hx of liver transplant PRN morphine for pain. ID consult (because of his immunocompromised state - hx of liver transplant/ommunesuppresants) Wound care consult (re:open areas on his abdomen due to his scratching) F/up on blood Culture Ventral hernia without obstruction or gangrene 0 03/24/2017 04/22/2017 Lower abdominal pain 07/23/2016 04/22/2017 Opioid withdrawal 11/09/2015 04/22/2017 Overview: Thursday with opioid withdrawal after attempted discontinuation of fentanyl Resolution of symptoms after re-starting fentanyl -- Continue fentanyl patch with prn IVP fentanyl for breakthrough pain -- Drip stopped 3/ Respiratory failure, post-operative 10/22/2015 04/22/2017 Overview: Pt intubated for OLT on 10/03/15, remained intubated d/t severe hypoxia (see hepato pulmonary syndrome) 11/01 s/p tracheostomy Very weak and debilitated, profound ICU neuromyopathy Currently improved, toleratingTC, passy etta valve capped -- continue trach collar, PMV Acute pneumothorax 10/17/2015 04/22/2017 Prerenal azotemia 10/17/2015 10/24/2015 Overview: Bun/ Creat ratio now trending down. Hypernatremia resolved -- trend Renal indices -- lasix 20 mg q8 Acute pulmonary embolism 10/17/2015 017 Spontaneous pneumothorax 10/16/2015 017 Overview: Pneumothorax discovered on CT chest 10/15 in setting of high PEEP requirements s/p chest tube placements x2 Last CT removed 11/02 CXR with small persistent Rt. Apical pneumothorax- not appeciated on today's CXR --continue to follow daily CXRs Pneumonia, organism unspecified([phone]) 10/16/2015 11/02/2015 Overview: CT of chest 10/15 shows RLL consolidation suspicious for pneumonia. Completed course of vanco and meropenem continuing micfungin. Sputum culture from 10/09 shows normal respiratory erum. legionella urinary antigen negative --ID following Sepsis due to other etiology 10/15/201505/2017 Overview: Has completed empiric courses of antibiotics for persistent low grade fevers and acute decompensation No obvious source of infection identified per extensive ID workup Vanco d/c 10/25, Meropenem d/c 10/26 11/04 Acute decompensation (fevers 11/05) empiric pip-tazo, vanc, micafungin added--> off since 11/11 (cultures negative) CT chest/ab/pelvis (11/08) with no evidence of infective process -- continue to monitor off ATB Postoperative shock 10/09/2015 04/22/2017 Overview: Shock, hypotension, fevers with increasing leukocytosis in setting of liver transplant, hepatopulmonary syndrome, ARDS, hypoxia. Profound hypoxia requiring nitric oxide therapy. Required low dose levo for BP support, now off. Concern for sepsis, blood cultures negative to date, vanco and zosyn started empirically 10/08. Procalcitonin 1.06. Lacate 1.8 -- Follow cultures -- continue vanco and zosyn -- levo for BP support (avoid fluid boluses if hypotensive) Electrolyte and fluid disorder 10/07/2015 0 04/22/2017 Overview: Hypomagnesemia repleted, hyperphos -- monitor and replete lytes daily -- increase daily PO mag oxide to 800 mg TID New onset seizure 10/05/2015 11/22/2019 Overview: Seizure activity 10/05, BEM supported the dx of cortical dysfunction in the left hemisphere with potential epileptogenicity in the left fronto-central region CT head negative for acute process, neurology consulted, loaded with Keppra Currently alert, follows commands -- weaned to Keppra 500mg bid -- neurology recommending follow up with epilepsy as outpatient ARDS (adult respiratory distress syndrome) 10/0504/22/2017 Overview: Hx of hepatopulmonary syndrome, pulmonary sarcoidosis requiring home O2 6-10 liters Pulmonary HTN with ~45% shunt. Pre-op PaO2 ~55 on RA CXR now with bilateral fluffy infiltrates / ARDS w/ pulmonary edema Desaturates with movement, turning, suctioning. Space = 60% today, with compliance ~45 -- maintain aggressive vent support (100% FiO2, wean PEEP is able as higher PEEP to increase shunt) -- lung protective strategies - Vt 6ml/kg ideal body weight (~350ml) -- trach on hold while unstable -- lasix TID -- Continue Nitric oxide -- increased I:E ratio -- avoid fluid boluses for hypotension - use pressors if needed -- sputum sent for culture Postoperative anemia due to acute blood loss 04/22/2017 Overview: S/P liver transplant with EBL 17 L c/b thrombocytopenia, coagulopahty and OP bleeding requiring intra-op nasal and pharyngeal packing Last transfused 10/08 2U PRBCs. 10/10: ENT removed nasal merocel. Clots in both nasopharyxes. No reinsertion of nasal tubes. -- monitor CBC and coags -- transfuse as required Agitation requiring sedation protocol 10/05/2015 04/22/2017 Overview: Required prolonged neuromuscular blockade with deep sedation secondary to increased WOB, breath stacking and hypoxia After discontinuation, he has had difficultly controlling agitation, likely opioid withdrawl. Had required precedex, fentanyl patch, prn haldol, seroquel Currently on seroquel, fentanyl patch Has been awake and alert, very cooperative -- continue on decreased TID seroquel dosing of 25mg TID and 150 mg qHS -- continue with fentanyl patch Acute post-operative pain 10/05/20152016 Overview: Was on prolonged fentanyl infusion d/t vent asynchrony, pain from liver tx Now transitioned to patch, infusion stopped 11/13 -- continue fentanyl patch (100mcg) Renal insufficiency 10/05/2015 10/08/2015 Overview: Secondary to hypotension Baseline Scr 0.66, now down to 0.83 Making good UO -- monitor renal indices Stress hyperglycemia 10/05/2015 04/22/2017 Overview: -- Adequate glycemic control with SSI Moderate protein-calorie malnutrition 10/05/2015 04/22/2017 Overview: Tolerating goal tube feeds Osmolite 1.2 @ 70 Prealbumin 26, transferrin 185 -- continue TF with fiber and beneprotien and full liquid diet -- nutrition following Abdominal distension 09/12/2015 04/22/2017 Overview: - concerning given weight gain of 30 lb from 09/04 - CT abdomen on last admission showed tissue edema> ascites, concern for third spacing in the abdominal wall tissue - no evidence of active infection, however, currently pancytopenia - was taking Lasix 20 mg PO every other day and spironolactone 50 mg PO daily - Liver vascular U/S demonstrates patent vasculature Plan - diuresis with Lasix 40 mg PO BID and spironolactone 100 mg PO daily - paracentesis as needed for respiratory function Liver transplant candidate 08/17/201504/22 Pain disorder with psychological factors 015 12/23/2021 Hyperammonemia 07/20/2015 04/22/2017 SUMMARY 06/14/2015 09/12/2015 Overview: Mr. 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 SOB (shortness of breath) 06/14/20152016 Overview: Started after dry run Possibly irritated by catheter? Systolic murmur also heard Chest x-ray and CT PE negative Currently at baseline New valvular lesion vs clot? -Echocardiogram -Doppler study -Observe for now Hepatic cirrhosis 06/14/2015 04/22/2017 Overview: #Cirrhosis -Continue lactulose, rifaximin -Continue aldactone Infection of other external stoma of urinary tra ct 05/17/2015 04/22/2017 UTI (lower urinary tract infection) 04/08/2015 04/22/2017 Overview: Was complaining of dysuria. UA positive with leukoesterase and Was started of ceftriaxone at OSH. Received 2 dosages here yesterday and one today. Will finish treatment for complicated UTI at home with cipro [id number] Hepatic encephalopathy 04/08/2015 7 Overview: On lactulose zinc Rifaximin Fever, low grade 11/03/2014 04/22/2017 Overview: Low grade fever on presentation UA clean Plan - Blood cx ngtd - afebrile since SUMMARY 08/31/2014 07/24/2016 Overview: The patient is a 50 yo male with a past medical history of HCV/ETOH Liver Cirrhosis c/b hepatopulmonary syndrome, hypersplenism, HE, Grade I EV, pulmonary sarcoidosis who presents with acute weight gain, abdominal distension, and SOB Fever and chills 08/31/2014 04/22/2017 Overview: Tmax 38.7 this AM; pt reports recent history of tooth extraction One time fever yesterday Received 2 time cefazolin after PFO closure. Plan: -UA, BCxx2 - NG till now -will hold off on abx for now and observe Retained dental root 08/15/2014 12/23/2021 Hepatopulmonary syndrome 03/12/2014 018 Overview: History of hepatopulmonary syndrome with ~45.2% shunt, pulmonary sarcoidosis requiring home O2 6-10 liters and mild pulmonary HTN Preop PaO2 ~55 on RA Profound hypoxia postoperatively requiring max vent support with high PEEP, heavy sedation/paralytics, flolan, nitric oxide (off since 10/26) Course c/b Right lung Pneumothorax, resp failure requiring trach 11/01 Decompensation 11/04 secondary to narcotic withdrawal +/- sepsis-->Drastically improved with fentanyl infusion, ATB. Updated echo 11/15 with EF 55%, normal RV Currently doing great, on continuous trach collar with passy etta valve, and diet -- Goal sats 85% -- Continue TC, PMV, OOB Bicytopenia 03/12/2014 04/22/2017 Overview: He has plat count of 20k and WCC of around 1000 His neutropenia is likely 2/2 to INF His thrombocytopenia is likley 2/2 to his cirrhosis Plan: Watch, transfuse plats if <10k or bleeding Pancytopenia 03/11/2014 03/12/2014 Hypoxemia 03/11/2014 10/15/2015 Overview: Due to underlying HPS Now on 100% Fio2 with last PaO2 60, Nitric oxide started 10/08, at 40 PPM. O2 sats maintaining in 80s CTS consulted for ECMO evaluation -- Given profound thrombocytopenia and grave condition ECMO not recommended -- Continue nitric oxide -- lung protective ventilation -- increased I:E ratio (at 2.4:1), paralyze with rocuronium if needed -- goal of O2 sats in 70s permissible COPD (chronic obstructive pulmonary disease) 03/12/2014 Coagulopathy 03/11/2014 04/22/2017 Syncope 01/03/2014 04/22/2017 Epididymitis 11/24/2013 04/22/2017 Testalgia 11/24/2013 04/22/2017 Thrombocytopenia 08/20/2009 04/22/2017 Overview: Platelets 96k today, received platelets 10/11 prior to liver biopsy. no obvious bleeding -- monitor CBC, coags -- transfuse as required -- monitor for bleeding -- transfuse plts prior to invasive procedures Hepatitis C 08/20/2009 11/03/2014 Cirrhosis 04/22/2017 Overview: Secondary to alcohol use and HCV complicated by ascites, PSE (on lactulose, rifaximin) and hepatopulmonary syndrome on home O2 s/p OLT on 10/03/15 Concern for rejection (humoral), now s/p thymo, IVIG, plasmapheresis 10/15 and 10/16 completed -hydrocortisone (switched from prednisone) now tapering down - MMF - FK documented as of this encounter (statuses as of 02/13/2022) [facility] History of Past illness Narrative* Problem Noted Date Resolved Date Hilar adenopathy 07/09/2018 08/19/2018 Last Assessment & Plan: Assessment: CT A/P on Admission shows Significant subcarinal and bilateral hilar adenopathy on the lower images through the chest. Lymphoproliferative disease suspected He does have a hx of sarcoid But no recent CT chest/CXR to compare. CT chest shows SPLENOMEGALY AND NUMEROUS ENLARGED MEDIASTINAL AND BILATERAL HILAR LYMPH NODES, INCREASED IN SIZE SINCE 2016. THE DIFFERENTIAL DIAGNOSIS INCLUDES SARCOIDOSIS AND LYMPHOPROLIFERATIVE DISEASE. PLAN: -Transfer to [facility] for further evaluation by oncology per ID recommedation. Nausea & vomiting 07/09/2018 07/28/2018 Last Assessment & Plan: Assessment: Patient notes off and on nausea for one month. Also notes worsening control of his reflux symptoms. CTA/P shows significant subcarinal and bilateral hilar adenopathy and new subtle intrahepatic biliary dilatation and common duct dilatation . Obstructing lesion must be excluded, however.Splenic enlargement PLAN: -Increase protonix to 40mg bid -Zofran PRN for N/V -GI consult pending. Cellulitis 07/09/2018 07/13/2018 Abdominal wall cellulitis 12/01/20172021 Last Assessment & Plan: Assessment: Second Episode this year . Likely due to his constant picking of the skin of his abdomen. He is HDS, no leucocytosis,crp 2.6,ESR 2,lactate normal CTA/P shows no abscess nor cellulitis . PLAN: Continue ancef started in the ER. Continue bactrim as scheduled for prophylaxis - due to hx of liver transplant PRN morphine for pain. ID consult (because of his immunocompromised state - hx of liver transplant/ommunesuppresants) Wound care consult (re:open areas on his abdomen due to his scratching) F/up on blood Culture Ventral hernia without obstruction or gangrene 0 03/24/2017 04/22/2017 Lower abdominal pain 07/23/2016 04/22/2017 Opioid withdrawal 11/09/2015 04/22/2017 Overview: Thursday with opioid withdrawal after attempted discontinuation of fentanyl Resolution of symptoms after re-starting fentanyl -- Continue fentanyl patch with prn IVP fentanyl for breakthrough pain -- Drip stopped 3/2 Respiratory failure, post-operative 10/22/2015 04/22/2017 Overview: Pt intubated for OLT on 10/03/15, remained intubated d/t severe hypoxia (see hepato pulmonary syndrome) 11/01 s/p tracheostomy Very weak and debilitated, profound ICU neuromyopathy Currently improved, toleratingTC, passy etta valve capped -- continue trach collar, PMV Acute pneumothorax 10/17/2015 04/22/2017 Prerenal azotemia 10/17/2015 10/24/2015 Overview: Bun/ Creat ratio now trending down. Hypernatremia resolved -- trend Renal indices -- lasix 20 mg q8 Acute pulmonary embolism 10/17/2015 017 Spontaneous pneumothorax 10/16/2015 017 Overview: Pneumothorax discovered on CT chest 10/15 in setting of high PEEP requirements s/p chest tube placements x2 Last CT removed 11/02 CXR with small persistent Rt. Apical pneumothorax- not appeciated on today's CXR --continue to follow daily CXRs Pneumonia, organism unspecified(486) 10/16/2015 11/02/2015 Overview: CT of chest 10/15 shows RLL consolidation suspicious for pneumonia. Completed course of vanco and meropenem continuing micfungin. Sputum culture from 10/09 shows normal respiratory erum. legionella urinary antigen negative --ID following Sepsis due to other etiology 10/15/201505/2017 Overview: Has completed empiric courses of antibiotics for persistent low grade fevers and acute decompensation No obvious source of infection identified per extensive ID workup Vanco d/c 10/25, Meropenem d/c 10/26 11/04 Acute decompensation (fevers 11/05) empiric pip-tazo, vanc, micafungin added--> off since 11/11 (cultures negative) CT chest/ab/pelvis (11/08) with no evidence of infective process -- continue to monitor off ATB Postoperative shock 10/09/2015 04/22/2017 Overview: Shock, hypotension, fevers with increasing leukocytosis in setting of liver transplant, hepatopulmonary syndrome, ARDS, hypoxia. Profound hypoxia requiring nitric oxide therapy. Required low dose levo for BP support, now off. Concern for sepsis, blood cultures negative to date, vanco and zosyn started empirically 10/08. Procalcitonin 1.06. Lacate 1.8 -- Follow cultures -- continue vanco and zosyn -- levo for BP support (avoid fluid boluses if hypotensive) Electrolyte and fluid disorder 10/07/2015 0 04/22/2017 Overview: Hypomagnesemia repleted, hyperphos -- monitor and replete lytes daily -- increase daily PO mag oxide to 800 mg TID New onset seizure 10/05/2015 11/22/2019 Overview: Seizure activity 10/05, BEM supported the dx of cortical dysfunction in the left hemisphere with potential epileptogenicity in the left fronto-central region CT head negative for acute process, neurology consulted, loaded with Keppra Currently alert, follows commands -- weaned to Keppra 500mg bid -- neurology recommending follow up with epilepsy as outpatient ARDS (adult respiratory distress syndrome) 10/0504/22/2017 Overview: Hx of hepatopulmonary syndrome, pulmonary sarcoidosis requiring home O2 6-10 liters Pulmonary HTN with ~45% shunt. Pre-op PaO2 ~55 on RA CXR now with bilateral fluffy infiltrates / ARDS w/ pulmonary edema Desaturates with movement, turning, suctioning. Space = 60% today, with compliance ~45 -- maintain aggressive vent support (100% FiO2, wean PEEP is able as higher PEEP to increase shunt) -- lung protective strategies - Vt 6ml/kg ideal body weight (~350ml) -- trach on hold while unstable -- lasix TID -- Continue Nitric oxide -- increased I:E ratio -- avoid fluid boluses for hypotension - use pressors if needed -- sputum sent for culture Postoperative anemia due to acute blood loss 04/22/2017 Overview: S/P liver transplant with EBL 17 L c/b thrombocytopenia, coagulopahty and OP bleeding requiring intra-op nasal and pharyngeal packing Last transfused 10/08 2U PRBCs. 10/10: ENT removed nasal merocel. Clots in both nasopharyxes. No reinsertion of nasal tubes. -- monitor CBC and coags -- transfuse as required Agitation requiring sedation protocol 10/05/2015 04/22/2017 Overview: Required prolonged neuromuscular blockade with deep sedation secondary to increased WOB, breath stacking and hypoxia After discontinuation, he has had difficultly controlling agitation, likely opioid withdrawl. Had required precedex, fentanyl patch, prn haldol, seroquel Currently on seroquel, fentanyl patch Has been awake and alert, very cooperative -- continue on decreased TID seroquel dosing of 25mg TID and 150 mg qHS -- continue with fentanyl patch Acute post-operative pain 10/05/20152016 Overview: Was on prolonged fentanyl infusion d/t vent asynchrony, pain from liver tx Now transitioned to patch, infusion stopped 11/13 -- continue fentanyl patch (100mcg) Renal insufficiency 10/05/2015 10/08/2015 Overview: Secondary to hypotension Baseline Scr 0.66, now down to 0.83 Making good UO -- monitor renal indices Stress hyperglycemia 10/05/2015 04/22/2017 Overview: -- Adequate glycemic control with SSI Moderate protein-calorie malnutrition 10/05/2015 04/22/2017 Overview: Tolerating goal tube feeds Osmolite 1.2 @ 70 Prealbumin 26, transferrin 185 -- continue TF with fiber and beneprotien and full liquid diet -- nutrition following Abdominal distension 09/12/2015 04/22/2017 Overview: - concerning given weight gain of 30 lb from 09/04 - CT abdomen on last admission showed tissue edema> ascites, concern for third spacing in the abdominal wall tissue - no evidence of active infection, however, currently pancytopenia - was taking Lasix 20 mg PO every other day and spironolactone 50 mg PO daily - Liver vascular U/S demonstrates patent vasculature Plan - diuresis with Lasix 40 mg PO BID and spironolactone 100 mg PO daily - paracentesis as needed for respiratory function Liver transplant candidate 08/17/201504/22 Pain disorder with psychological factors 015 12/23/2021 Hyperammonemia 07/20/2015 04/22/2017 SUMMARY 06/14/2015 09/12/2015 Overview: Mr. 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 SOB (shortness of breath) 06/14/20152016 Overview: Started after dry run Possibly irritated by catheter? Systolic murmur also heard Chest x-ray and CT PE negative Currently at baseline New valvular lesion vs clot? -Echocardiogram -Doppler study -Observe for now Hepatic cirrhosis 06/14/2015 04/22/2017 Overview: #Cirrhosis -Continue lactulose, rifaximin -Continue aldactone Infection of other external stoma of urinary tra ct 05/17/2015 04/22/2017 UTI (lower urinary tract infection) 04/08/2015 04/22/2017 Overview: Was complaining of dysuria. UA positive with leukoesterase and Was started of ceftriaxone at OSH. Received 2 dosages here yesterday and one today. Will finish treatment for complicated UTI at home with cipro 500BID Hepatic encephalopathy 04/08/2015 7 Overview: On lactulose zinc Rifaximin Fever, low grade 11/03/2014 04/22/2017 Overview: Low grade fever on presentation UA clean Plan - Blood cx ngtd - afebrile since SUMMARY 08/31/2014 07/24/2016 Overview: The patient is a 50 yo male with a past medical history of HCV/ETOH Liver Cirrhosis c/b hepatopulmonary syndrome, hypersplenism, HE, Grade I EV, pulmonary sarcoidosis who presents with acute weight gain, abdominal distension, and SOB Fever and chills 08/31/2014 04/22/2017 Overview: Tmax 38.7 this AM; pt reports recent history of tooth extraction One time fever yesterday Received 2 time cefazolin after PFO closure. Plan: -UA, BCxx2 - NG till now -will hold off on abx for now and observe Retained dental root 08/15/2014 12/23/2021 Hepatopulmonary syndrome 03/12/2014 018 Overview: History of hepatopulmonary syndrome with ~45.2% shunt, pulmonary sarcoidosis requiring home O2 6-10 liters and mild pulmonary HTN Preop PaO2 ~55 on RA Profound hypoxia postoperatively requiring max vent support with high PEEP, heavy sedation/paralytics, flolan, nitric oxide (off since 10/26) Course c/b Right lung Pneumothorax, resp failure requiring trach 11/01 Decompensation 11/04 secondary to narcotic withdrawal +/- sepsis-->Drastically improved with fentanyl infusion, ATB. Updated echo 11/15 with EF 55%, normal RV Currently doing great, on continuous trach collar with passy etta valve, and diet -- Goal sats 85% -- Continue TC, PMV, OOB Bicytopenia 03/12/2014 04/22/2017 Overview: He has plat count of 20k and WCC of around 1000 His neutropenia is likely 2/2 to INF His thrombocytopenia is likley 2/2 to his cirrhosis Plan: Watch, transfuse plats if <10k or bleeding Pancytopenia 03/11/2014 03/12/2014 Hypoxemia 03/11/2014 10/15/2015 Overview: Due to underlying HPS Now on 100% Fio2 with last PaO2 60, Nitric oxide started 10/08, at 40 PPM. O2 sats maintaining in 80s CTS consulted for ECMO evaluation -- Given profound thrombocytopenia and grave condition ECMO not recommended -- Continue nitric oxide -- lung protective ventilation -- increased I:E ratio (at 2.4:1), paralyze with rocuronium if needed -- goal of O2 sats in 70s permissible COPD (chronic obstructive pulmonary disease) 03/12/2014 Coagulopathy 03/11/2014 04/22/2017 Syncope 01/03/2014 04/22/2017 Epididymitis 11/24/2013 04/22/2017 Testalgia 11/24/2013 04/22/2017 Thrombocytopenia 08/20/2009 04/22/2017 Overview: Platelets 96k today, received platelets 10/11 prior to liver biopsy. no obvious bleeding -- monitor CBC, coags -- transfuse as required -- monitor for bleeding -- transfuse plts prior to invasive procedures Hepatitis C 08/20/2009 11/03/2014 Cirrhosis 04/22/2017 Overview: Secondary to alcohol use and HCV complicated by ascites, PSE (on lactulose, rifaximin) and hepatopulmonary syndrome on home O2 s/p OLT on 10/03/15 Concern for rejection (humoral), now s/p thymo, IVIG, plasmapheresis 10/15 and 10/16 completed -hydrocortisone (switched from prednisone) now tapering down - MMF - FK documented as of this encounter (statuses as of 02/25/2022) [facility] History of Past illness Narrative* Problem Noted Date Resolved Date Hilar adenopathy 07/09/2018 08/19/2018 Last Assessment & Plan: Assessment: CT A/P on Admission shows Significant subcarinal and bilateral hilar adenopathy on the lower images through the chest. Lymphoproliferative disease suspected He does have a hx of sarcoid But no recent CT chest/CXR to compare. CT chest shows SPLENOMEGALY AND NUMEROUS ENLARGED MEDIASTINAL AND BILATERAL HILAR LYMPH NODES, INCREASED IN SIZE SINCE 2016. THE DIFFERENTIAL DIAGNOSIS INCLUDES SARCOIDOSIS AND LYMPHOPROLIFERATIVE DISEASE. PLAN: -Transfer to [facility] for further evaluation by oncology per ID recommedation. Nausea & vomiting 07/09/2018 07/28/2018 Last Assessment & Plan: Assessment: Patient notes off and on nausea for one month. Also notes worsening control of his reflux symptoms. CTA/P shows significant subcarinal and bilateral hilar adenopathy and new subtle intrahepatic biliary dilatation and common duct dilatation . Obstructing lesion must be excluded, however.Splenic enlargement PLAN: -Increase protonix to 40mg bid -Zofran PRN for N/V -GI consult pending. Cellulitis 07/09/2018 07/13/2018 Abdominal wall cellulitis 12/01/20172021 Last Assessment & Plan: Assessment: Second Episode this year . Likely due to his constant picking of the skin of his abdomen. He is HDS, no leucocytosis,crp 2.6,ESR 2,lactate normal CTA/P shows no abscess nor cellulitis . PLAN: Continue ancef started in the ER. Continue bactrim as scheduled for prophylaxis - due to hx of liver transplant PRN morphine for pain. ID consult (because of his immunocompromised state - hx of liver transplant/ommunesuppresants) Wound care consult (re:open areas on his abdomen due to his scratching) F/up on blood Culture Ventral hernia without obstruction or gangrene 0 03/24/2017 04/22/2017 Lower abdominal pain 07/23/2016 04/22/2017 Opioid withdrawal 11/09/2015 04/22/2017 Overview: Thursday with opioid withdrawal after attempted discontinuation of fentanyl Resolution of symptoms after re-starting fentanyl -- Continue fentanyl patch with prn IVP fentanyl for breakthrough pain -- Drip stopped 3/ Respiratory failure, post-operative 10/22/2015 04/22/2017 Overview: Pt intubated for OLT on 10/03/15, remained intubated d/t severe hypoxia (see hepato pulmonary syndrome) 11/01 s/p tracheostomy Very weak and debilitated, profound ICU neuromyopathy Currently improved, toleratingTC, passy etta valve capped -- continue trach collar, PMV Acute pneumothorax 10/17/2015 04/22/2017 Prerenal azotemia 10/17/2015 10/24/2015 Overview: Bun/ Creat ratio now trending down. Hypernatremia resolved -- trend Renal indices -- lasix 20 mg q8 Acute pulmonary embolism 10/17/2015 017 Spontaneous pneumothorax 10/16/2015 017 Overview: Pneumothorax discovered on CT chest 10/15 in setting of high PEEP requirements s/p chest tube placements x2 Last CT removed 11/02 CXR with small persistent Rt. Apical pneumothorax- not appeciated on today's CXR --continue to follow daily CXRs Pneumonia, organism unspecified([id number]) 10/16/2015 11/02/2015 Overview: CT of chest 10/15 shows RLL consolidation suspicious for pneumonia. Completed course of vanco and meropenem continuing micfungin. Sputum culture from 10/09 shows normal respiratory erum. legionella urinary antigen negative --ID following Sepsis due to other etiology 10/15/201505/2017 Overview: Has completed empiric courses of antibiotics for persistent low grade fevers and acute decompensation No obvious source of infection identified per extensive ID workup Vanco d/c 10/25, Meropenem d/c 10/26 11/04 Acute decompensation (fevers 11/05) empiric pip-tazo, vanc, micafungin added--> off since 11/11 (cultures negative) CT chest/ab/pelvis (11/08) with no evidence of infective process -- continue to monitor off ATB Postoperative shock 10/09/2015 04/22/2017 Overview: Shock, hypotension, fevers with increasing leukocytosis in setting of liver transplant, hepatopulmonary syndrome, ARDS, hypoxia. Profound hypoxia requiring nitric oxide therapy. Required low dose levo for BP support, now off. Concern for sepsis, blood cultures negative to date, vanco and zosyn started empirically 10/08. Procalcitonin 1.06. Lacate 1.8 -- Follow cultures -- continue vanco and zosyn -- levo for BP support (avoid fluid boluses if hypotensive) Electrolyte and fluid disorder 10/07/2015 0 04/22/2017 Overview: Hypomagnesemia repleted, hyperphos -- monitor and replete lytes daily -- increase daily PO mag oxide to 800 mg TID New onset seizure 10/05/2015 11/22/2019 Overview: Seizure activity 10/05, BEM supported the dx of cortical dysfunction in the left hemisphere with potential epileptogenicity in the left fronto-central region CT head negative for acute process, neurology consulted, loaded with Keppra Currently alert, follows commands -- weaned to Keppra 500mg bid -- neurology recommending follow up with epilepsy as outpatient ARDS (adult respiratory distress syndrome) 10/0504/22/2017 Overview: Hx of hepatopulmonary syndrome, pulmonary sarcoidosis requiring home O2 6-10 liters Pulmonary HTN with ~45% shunt. Pre-op PaO2 ~55 on RA CXR now with bilateral fluffy infiltrates / ARDS w/ pulmonary edema Desaturates with movement, turning, suctioning. Space = 60% today, with compliance ~45 -- maintain aggressive vent support (100% FiO2, wean PEEP is able as higher PEEP to increase shunt) -- lung protective strategies - Vt 6ml/kg ideal body weight (~350ml) -- trach on hold while unstable -- lasix TID -- Continue Nitric oxide -- increased I:E ratio -- avoid fluid boluses for hypotension - use pressors if needed -- sputum sent for culture Postoperative anemia due to acute blood loss 04/22/2017 Overview: S/P liver transplant with EBL 17 L c/b thrombocytopenia, coagulopahty and OP bleeding requiring intra-op nasal and pharyngeal packing Last transfused 10/08 2U PRBCs. 10/10: ENT removed nasal merocel. Clots in both nasopharyxes. No reinsertion of nasal tubes. -- monitor CBC and coags -- transfuse as required Agitation requiring sedation protocol 10/05/2015 04/22/2017 Overview: Required prolonged neuromuscular blockade with deep sedation secondary to increased WOB, breath stacking and hypoxia After discontinuation, he has had difficultly controlling agitation, likely opioid withdrawl. Had required precedex, fentanyl patch, prn haldol, seroquel Currently on seroquel, fentanyl patch Has been awake and alert, very cooperative -- continue on decreased TID seroquel dosing of 25mg TID and 150 mg qHS -- continue with fentanyl patch Acute post-operative pain 10/05/20152016 Overview: Was on prolonged fentanyl infusion d/t vent asynchrony, pain from liver tx Now transitioned to patch, infusion stopped 11/13 -- continue fentanyl patch (100mcg) Renal insufficiency 10/05/2015 10/08/2015 Overview: Secondary to hypotension Baseline Scr 0.66, now down to 0.83 Making good UO -- monitor renal indices Stress hyperglycemia 10/05/2015 04/22/2017 Overview: -- Adequate glycemic control with SSI Moderate protein-calorie malnutrition 10/05/2015 04/22/2017 Overview: Tolerating goal tube feeds Osmolite 1.2 @ 70 Prealbumin 26, transferrin 185 -- continue TF with fiber and beneprotien and full liquid diet -- nutrition following Abdominal distension 09/12/2015 04/22/2017 Overview: - concerning given weight gain of 30 lb from 09/04 - CT abdomen on last admission showed tissue edema> ascites, concern for third spacing in the abdominal wall tissue - no evidence of active infection, however, currently pancytopenia - was taking Lasix 20 mg PO every other day and spironolactone 50 mg PO daily - Liver vascular U/S demonstrates patent vasculature Plan - diuresis with Lasix 40 mg PO BID and spironolactone 100 mg PO daily - paracentesis as needed for respiratory function Liver transplant candidate 08/17/201504/22 Pain disorder with psychological factors 015 12/23/2021 Hyperammonemia 07/20/2015 04/22/2017 SUMMARY 06/14/2015 09/12/2015 Overview: Mr. 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 SOB (shortness of breath) 06/14/20152016 Overview: Started after dry run Possibly irritated by catheter? Systolic murmur also heard Chest x-ray and CT PE negative Currently at baseline New valvular lesion vs clot? -Echocardiogram -Doppler study -Observe for now Hepatic cirrhosis 06/14/2015 04/22/2017 Overview: #Cirrhosis -Continue lactulose, rifaximin -Continue aldactone Infection of other external stoma of urinary tra ct 05/17/2015 04/22/2017 UTI (lower urinary tract infection) 04/08/2015 04/22/2017 Overview: Was complaining of dysuria. UA positive with leukoesterase and Was started of ceftriaxone at OSH. Received 2 dosages here yesterday and one today. Will finish treatment for complicated UTI at home with cipro [id number] Hepatic encephalopathy 04/08/2015 7 Overview: On lactulose zinc Rifaximin Fever, low grade 11/03/2014 04/22/2017 Overview: Low grade fever on presentation UA clean Plan - Blood cx ngtd - afebrile since SUMMARY 08/31/2014 07/24/2016 Overview: The patient is a 50 yo male with a past medical history of HCV/ETOH Liver Cirrhosis c/b hepatopulmonary syndrome, hypersplenism, HE, Grade I EV, pulmonary sarcoidosis who presents with acute weight gain, abdominal distension, and SOB Fever and chills 08/31/2014 04/22/2017 Overview: Tmax 38.7 this AM; pt reports recent history of tooth extraction One time fever yesterday Received 2 time cefazolin after PFO closure. Plan: -UA, BCxx2 - NG till now -will hold off on abx for now and observe Retained dental root 08/15/2014 12/23/2021 Hepatopulmonary syndrome 03/12/2014 018 Overview: History of hepatopulmonary syndrome with ~45.2% shunt, pulmonary sarcoidosis requiring home O2 6-10 liters and mild pulmonary HTN Preop PaO2 ~55 on RA Profound hypoxia postoperatively requiring max vent support with high PEEP, heavy sedation/paralytics, flolan, nitric oxide (off since 10/26) Course c/b Right lung Pneumothorax, resp failure requiring trach 11/01 Decompensation 11/04 secondary to narcotic withdrawal +/- sepsis-->Drastically improved with fentanyl infusion, ATB. Updated echo 11/15 with EF 55%, normal RV Currently doing great, on continuous trach collar with passy etta valve, and diet -- Goal sats 85% -- Continue TC, PMV, OOB Bicytopenia 03/12/2014 04/22/2017 Overview: He has plat count of 20k and WCC of around 1000 His neutropenia is likely 2/2 to INF His thrombocytopenia is likley 2/2 to his cirrhosis Plan: Watch, transfuse plats if <10k or bleeding Pancytopenia 03/11/2014 03/12/2014 Hypoxemia 03/11/2014 10/15/2015 Overview: Due to underlying HPS Now on 100% Fio2 with last PaO2 60, Nitric oxide started 10/08, at 40 PPM. O2 sats maintaining in 80s CTS consulted for ECMO evaluation -- Given profound thrombocytopenia and grave condition ECMO not recommended -- Continue nitric oxide -- lung protective ventilation -- increased I:E ratio (at 2.4:1), paralyze with rocuronium if needed -- goal of O2 sats in 70s permissible COPD (chronic obstructive pulmonary disease) 03/12/2014 Coagulopathy 03/11/2014 04/22/2017 Syncope 01/03/2014 04/22/2017 Epididymitis 11/24/2013 04/22/2017 Testalgia 11/24/2013 04/22/2017 Thrombocytopenia 08/20/2009 04/22/2017 Overview: Platelets 96k today, received platelets 10/11 prior to liver biopsy. no obvious bleeding -- monitor CBC, coags -- transfuse as required -- monitor for bleeding -- transfuse plts prior to invasive procedures Hepatitis C 08/20/2009 11/03/2014 Cirrhosis 04/22/2017 Overview: Secondary to alcohol use and HCV complicated by ascites, PSE (on lactulose, rifaximin) and hepatopulmonary syndrome on home O2 s/p OLT on 10/03/15 Concern for rejection (humoral), now s/p thymo, IVIG, plasmapheresis 10/15 and 10/16 completed -hydrocortisone (switched from prednisone) now tapering down - MMF - FK documented as of this encounter (statuses as of 02/25/2022) [facility] History of Past illness Narrative* Problem Noted Date Resolved Date Hilar adenopathy 07/09/2018 08/19/2018 Last Assessment & Plan: Assessment: CT A/P on Admission shows Significant subcarinal and bilateral hilar adenopathy on the lower images through the chest. Lymphoproliferative disease suspected He does have a hx of sarcoid But no recent CT chest/CXR to compare. CT chest shows SPLENOMEGALY AND NUMEROUS ENLARGED MEDIASTINAL AND BILATERAL HILAR LYMPH NODES, INCREASED IN SIZE SINCE 2016. THE DIFFERENTIAL DIAGNOSIS INCLUDES SARCOIDOSIS AND LYMPHOPROLIFERATIVE DISEASE. PLAN: -Transfer to [facility] for further evaluation by oncology per ID recommedation. Nausea & vomiting 07/09/2018 07/28/2018 Last Assessment & Plan: Assessment: Patient notes off and on nausea for one month. Also notes worsening control of his reflux symptoms. CTA/P shows significant subcarinal and bilateral hilar adenopathy and new subtle intrahepatic biliary dilatation and common duct dilatation . Obstructing lesion must be excluded, however.Splenic enlargement PLAN: -Increase protonix to 40mg bid -Zofran PRN for N/V -GI consult pending. Cellulitis 07/09/2018 07/13/2018 Abdominal wall cellulitis 12/01/20172021 Last Assessment & Plan: Assessment: Second Episode this year . Likely due to his constant picking of the skin of his abdomen. He is HDS, no leucocytosis,crp 2.6,ESR 2,lactate normal CTA/P shows no abscess nor cellulitis . PLAN: Continue ancef started in the ER. Continue bactrim as scheduled for prophylaxis - due to hx of liver transplant PRN morphine for pain. ID consult (because of his immunocompromised state - hx of liver transplant/ommunesuppresants) Wound care consult (re:open areas on his abdomen due to his scratching) F/up on blood Culture Ventral hernia without obstruction or gangrene 0 03/24/2017 04/22/2017 Lower abdominal pain 07/23/2016 04/22/2017 Opioid withdrawal 11/09/2015 04/22/2017 Overview: Thursday with opioid withdrawal after attempted discontinuation of fentanyl Resolution of symptoms after re-starting fentanyl -- Continue fentanyl patch with prn IVP fentanyl for breakthrough pain -- Drip stopped 3/2 Respiratory failure, post-operative 10/22/2015 04/22/2017 Overview: Pt intubated for OLT on 10/03/15, remained intubated d/t severe hypoxia (see hepato pulmonary syndrome) 11/01 s/p tracheostomy Very weak and debilitated, profound ICU neuromyopathy Currently improved, toleratingTC, passy etta valve capped -- continue trach collar, PMV Acute pneumothorax 10/17/2015 04/22/2017 Prerenal azotemia 10/17/2015 10/24/2015 Overview: Bun/ Creat ratio now trending down. Hypernatremia resolved -- trend Renal indices -- lasix 20 mg q8 Acute pulmonary embolism 10/17/2015 017 Spontaneous pneumothorax 10/16/2015 017 Overview: Pneumothorax discovered on CT chest 10/15 in setting of high PEEP requirements s/p chest tube placements x2 Last CT removed 11/02 CXR with small persistent Rt. Apical pneumothorax- not appeciated on today's CXR --continue to follow daily CXRs Pneumonia, organism unspecified(486) 10/16/2015 11/02/2015 Overview: CT of chest 10/15 shows RLL consolidation suspicious for pneumonia. Completed course of vanco and meropenem continuing micfungin. Sputum culture from 10/09 shows normal respiratory erum. legionella urinary antigen negative --ID following Sepsis due to other etiology 10/15/201505/2017 Overview: Has completed empiric courses of antibiotics for persistent low grade fevers and acute decompensation No obvious source of infection identified per extensive ID workup Vanco d/c 10/25, Meropenem d/c 10/26 11/04 Acute decompensation (fevers 11/05) empiric pip-tazo, vanc, micafungin added--> off since 11/11 (cultures negative) CT chest/ab/pelvis (11/08) with no evidence of infective process -- continue to monitor off ATB Postoperative shock 10/09/2015 04/22/2017 Overview: Shock, hypotension, fevers with increasing leukocytosis in setting of liver transplant, hepatopulmonary syndrome, ARDS, hypoxia. Profound hypoxia requiring nitric oxide therapy. Required low dose levo for BP support, now off. Concern for sepsis, blood cultures negative to date, vanco and zosyn started empirically 10/08. Procalcitonin 1.06. Lacate 1.8 -- Follow cultures -- continue vanco and zosyn -- levo for BP support (avoid fluid boluses if hypotensive) Electrolyte and fluid disorder 10/07/2015 0 04/22/2017 Overview: Hypomagnesemia repleted, hyperphos -- monitor and replete lytes daily -- increase daily PO mag oxide to 800 mg TID New onset seizure 10/05/2015 11/22/2019 Overview: Seizure activity 10/05, BEM supported the dx of cortical dysfunction in the left hemisphere with potential epileptogenicity in the left fronto-central region CT head negative for acute process, neurology consulted, loaded with Keppra Currently alert, follows commands -- weaned to Keppra 500mg bid -- neurology recommending follow up with epilepsy as outpatient ARDS (adult respiratory distress syndrome) 10/0504/22/2017 Overview: Hx of hepatopulmonary syndrome, pulmonary sarcoidosis requiring home O2 6-10 liters Pulmonary HTN with ~45% shunt. Pre-op PaO2 ~55 on RA CXR now with bilateral fluffy infiltrates / ARDS w/ pulmonary edema Desaturates with movement, turning, suctioning. Space = 60% today, with compliance ~45 -- maintain aggressive vent support (100% FiO2, wean PEEP is able as higher PEEP to increase shunt) -- lung protective strategies - Vt 6ml/kg ideal body weight (~350ml) -- trach on hold while unstable -- lasix TID -- Continue Nitric oxide -- increased I:E ratio -- avoid fluid boluses for hypotension - use pressors if needed -- sputum sent for culture Postoperative anemia due to acute blood loss 04/22/2017 Overview: S/P liver transplant with EBL 17 L c/b thrombocytopenia, coagulopahty and OP bleeding requiring intra-op nasal and pharyngeal packing Last transfused 10/08 2U PRBCs. 10/10: ENT removed nasal merocel. Clots in both nasopharyxes. No reinsertion of nasal tubes. -- monitor CBC and coags -- transfuse as required Agitation requiring sedation protocol 10/05/2015 04/22/2017 Overview: Required prolonged neuromuscular blockade with deep sedation secondary to increased WOB, breath stacking and hypoxia After discontinuation, he has had difficultly controlling agitation, likely opioid withdrawl. Had required precedex, fentanyl patch, prn haldol, seroquel Currently on seroquel, fentanyl patch Has been awake and alert, very cooperative -- continue on decreased TID seroquel dosing of 25mg TID and 150 mg qHS -- continue with fentanyl patch Acute post-operative pain 10/05/20152016 Overview: Was on prolonged fentanyl infusion d/t vent asynchrony, pain from liver tx Now transitioned to patch, infusion stopped 11/13 -- continue fentanyl patch (100mcg) Renal insufficiency 10/05/2015 10/08/2015 Overview: Secondary to hypotension Baseline Scr 0.66, now down to 0.83 Making good UO -- monitor renal indices Stress hyperglycemia 10/05/2015 04/22/2017 Overview: -- Adequate glycemic control with SSI Moderate protein-calorie malnutrition 10/05/2015 04/22/2017 Overview: Tolerating goal tube feeds Osmolite 1.2 @ 70 Prealbumin 26, transferrin 185 -- continue TF with fiber and beneprotien and full liquid diet -- nutrition following Abdominal distension 09/12/2015 04/22/2017 Overview: - concerning given weight gain of 30 lb from 09/04 - CT abdomen on last admission showed tissue edema> ascites, concern for third spacing in the abdominal wall tissue - no evidence of active infection, however, currently pancytopenia - was taking Lasix 20 mg PO every other day and spironolactone 50 mg PO daily - Liver vascular U/S demonstrates patent vasculature Plan - diuresis with Lasix 40 mg PO BID and spironolactone 100 mg PO daily - paracentesis as needed for respiratory function Liver transplant candidate 08/17/201504/22 Pain disorder with psychological factors 015 12/23/2021 Hyperammonemia 07/20/2015 04/22/2017 SUMMARY 06/14/2015 09/12/2015 Overview: Mr. 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 SOB (shortness of breath) 06/14/20152016 Overview: Started after dry run Possibly irritated by catheter? Systolic murmur also heard Chest x-ray and CT PE negative Currently at baseline New valvular lesion vs clot? -Echocardiogram -Doppler study -Observe for now Hepatic cirrhosis 06/14/2015 04/22/2017 Overview: #Cirrhosis -Continue lactulose, rifaximin -Continue aldactone Infection of other external stoma of urinary tra ct 05/17/2015 04/22/2017 UTI (lower urinary tract infection) 04/08/2015 04/22/2017 Overview: Was complaining of dysuria. UA positive with leukoesterase and Was started of ceftriaxone at OSH. Received 2 dosages here yesterday and one today. Will finish treatment for complicated UTI at home with cipro 500BID Hepatic encephalopathy 04/08/2015 7 Overview: On lactulose zinc Rifaximin Fever, low grade 11/03/2014 04/22/2017 Overview: Low grade fever on presentation UA clean Plan - Blood cx ngtd - afebrile since SUMMARY 08/31/2014 07/24/2016 Overview: The patient is a 50 yo male with a past medical history of HCV/ETOH Liver Cirrhosis c/b hepatopulmonary syndrome, hypersplenism, HE, Grade I EV, pulmonary sarcoidosis who presents with acute weight gain, abdominal distension, and SOB Fever and chills 08/31/2014 04/22/2017 Overview: Tmax 38.7 this AM; pt reports recent history of tooth extraction One time fever yesterday Received 2 time cefazolin after PFO closure. Plan: -UA, BCxx2 - NG till now -will hold off on abx for now and observe Retained dental root 08/15/2014 12/23/2021 Hepatopulmonary syndrome 03/12/2014 018 Overview: History of hepatopulmonary syndrome with ~45.2% shunt, pulmonary sarcoidosis requiring home O2 6-10 liters and mild pulmonary HTN Preop PaO2 ~55 on RA Profound hypoxia postoperatively requiring max vent support with high PEEP, heavy sedation/paralytics, flolan, nitric oxide (off since 10/26) Course c/b Right lung Pneumothorax, resp failure requiring trach 11/01 Decompensation 11/04 secondary to narcotic withdrawal +/- sepsis-->Drastically improved with fentanyl infusion, ATB. Updated echo 11/15 with EF 55%, normal RV Currently doing great, on continuous trach collar with passy etta valve, and diet -- Goal sats 85% -- Continue TC, PMV, OOB Bicytopenia 03/12/2014 04/22/2017 Overview: He has plat count of 20k and WCC of around 1000 His neutropenia is likely 2/2 to INF His thrombocytopenia is likley 2/2 to his cirrhosis Plan: Watch, transfuse plats if <10k or bleeding Pancytopenia 03/11/2014 03/12/2014 Hypoxemia 03/11/2014 10/15/2015 Overview: Due to underlying HPS Now on 100% Fio2 with last PaO2 60, Nitric oxide started 10/08, at 40 PPM. O2 sats maintaining in 80s CTS consulted for ECMO evaluation -- Given profound thrombocytopenia and grave condition ECMO not recommended -- Continue nitric oxide -- lung protective ventilation -- increased I:E ratio (at 2.4:1), paralyze with rocuronium if needed -- goal of O2 sats in 70s permissible COPD (chronic obstructive pulmonary disease) 03/12/2014 Coagulopathy 03/11/2014 04/22/2017 Syncope 01/03/2014 04/22/2017 Epididymitis 11/24/2013 04/22/2017 Testalgia 11/24/2013 04/22/2017 Thrombocytopenia 08/20/2009 04/22/2017 Overview: Platelets 96k today, received platelets 10/11 prior to liver biopsy. no obvious bleeding -- monitor CBC, coags -- transfuse as required -- monitor for bleeding -- transfuse plts prior to invasive procedures Hepatitis C 08/20/2009 11/03/2014 Cirrhosis 04/22/2017 Overview: Secondary to alcohol use and HCV complicated by ascites, PSE (on lactulose, rifaximin) and hepatopulmonary syndrome on home O2 s/p OLT on 10/03/15 Concern for rejection (humoral), now s/p thymo, IVIG, plasmapheresis 10/15 and 2 completed -hydrocortisone (switched from prednisone) now tapering down - MMF - FK documented as of this encounter (statuses as of 02/26/2022) [facility] History of Past illness Narrative* Problem Noted Date Resolved Date Hilar adenopathy 07/09/2018 08/19/2018 Last Assessment & Plan: Assessment: CT A/P on Admission shows Significant subcarinal and bilateral hilar adenopathy on the lower images through the chest. Lymphoproliferative disease suspected He does have a hx of sarcoid But no recent CT chest/CXR to compare. CT chest shows SPLENOMEGALY AND NUMEROUS ENLARGED MEDIASTINAL AND BILATERAL HILAR LYMPH NODES, INCREASED IN SIZE SINCE 2016. THE DIFFERENTIAL DIAGNOSIS INCLUDES SARCOIDOSIS AND LYMPHOPROLIFERATIVE DISEASE. PLAN: -Transfer to [facility] for further evaluation by oncology per ID recommedation. Nausea & vomiting 07/09/2018 07/28/2018 Last Assessment & Plan: Assessment: Patient notes off and on nausea for one month. Also notes worsening control of his reflux symptoms. CTA/P shows significant subcarinal and bilateral hilar adenopathy and new subtle intrahepatic biliary dilatation and common duct dilatation . Obstructing lesion must be excluded, however.Splenic enlargement PLAN: -Increase protonix to 40mg bid -Zofran PRN for N/V -GI consult pending. Cellulitis 07/09/2018 07/13/2018 Abdominal wall cellulitis 12/01/20172021 Last Assessment & Plan: Assessment: Second Episode this year . Likely due to his constant picking of the skin of his abdomen. He is HDS, no leucocytosis,crp 2.6,ESR 2,lactate normal CTA/P shows no abscess nor cellulitis . PLAN: Continue ancef started in the ER. Continue bactrim as scheduled for prophylaxis - due to hx of liver transplant PRN morphine for pain. ID consult (because of his immunocompromised state - hx of liver transplant/ommunesuppresants) Wound care consult (re:open areas on his abdomen due to his scratching) F/up on blood Culture Ventral hernia without obstruction or gangrene 0 03/24/2017 04/22/2017 Lower abdominal pain 07/23/2016 04/22/2017 Opioid withdrawal 11/09/2015 04/22/2017 Overview: Thursday with opioid withdrawal after attempted discontinuation of fentanyl Resolution of symptoms after re-starting fentanyl -- Continue fentanyl patch with prn IVP fentanyl for breakthrough pain -- Drip stopped 3/2 Respiratory failure, post-operative 10/22/2015 04/22/2017 Overview: Pt intubated for OLT on 10/03/15, remained intubated d/t severe hypoxia (see hepato pulmonary syndrome) 11/01 s/p tracheostomy Very weak and debilitated, profound ICU neuromyopathy Currently improved, toleratingTC, passy etta valve capped -- continue trach collar, PMV Acute pneumothorax 10/17/2015 04/22/2017 Prerenal azotemia 10/17/2015 10/24/2015 Overview: Bun/ Creat ratio now trending down. Hypernatremia resolved -- trend Renal indices -- lasix 20 mg q8 Acute pulmonary embolism 10/17/2015 017 Spontaneous pneumothorax 10/16/2015 017 Overview: Pneumothorax discovered on CT chest 10/15 in setting of high PEEP requirements s/p chest tube placements x2 Last CT removed 11/02 CXR with small persistent Rt. Apical pneumothorax- not appeciated on today's CXR --continue to follow daily CXRs Pneumonia, organism unspecified([phone]) 10/16/2015 11/02/2015 Overview: CT of chest 10/15 shows RLL consolidation suspicious for pneumonia. Completed course of vanco and meropenem continuing micfungin. Sputum culture from 10/09 shows normal respiratory erum. legionella urinary antigen negative --ID following Sepsis due to other etiology 10/15/201505/2017 Overview: Has completed empiric courses of antibiotics for persistent low grade fevers and acute decompensation No obvious source of infection identified per extensive ID workup Vanco d/c 10/25, Meropenem d/c 10/26 11/04 Acute decompensation (fevers 11/05) empiric pip-tazo, vanc, micafungin added--> off since 11/11 (cultures negative) CT chest/ab/pelvis (11/08) with no evidence of infective process -- continue to monitor off ATB Postoperative shock 10/09/2015 04/22/2017 Overview: Shock, hypotension, fevers with increasing leukocytosis in setting of liver transplant, hepatopulmonary syndrome, ARDS, hypoxia. Profound hypoxia requiring nitric oxide therapy. Required low dose levo for BP support, now off. Concern for sepsis, blood cultures negative to date, vanco and zosyn started empirically 10/08. Procalcitonin 1.06. Lacate 1.8 -- Follow cultures -- continue vanco and zosyn -- levo for BP support (avoid fluid boluses if hypotensive) Electrolyte and fluid disorder 10/07/2015 0 04/22/2017 Overview: Hypomagnesemia repleted, hyperphos -- monitor and replete lytes daily -- increase daily PO mag oxide to 800 mg TID New onset seizure 10/05/2015 11/22/2019 Overview: Seizure activity 10/05, BEM supported the dx of cortical dysfunction in the left hemisphere with potential epileptogenicity in the left fronto-central region CT head negative for acute process, neurology consulted, loaded with Keppra Currently alert, follows commands -- weaned to Keppra 500mg bid -- neurology recommending follow up with epilepsy as outpatient ARDS (adult respiratory distress syndrome) 10/0504/22/2017 Overview: Hx of hepatopulmonary syndrome, pulmonary sarcoidosis requiring home O2 6-10 liters Pulmonary HTN with ~45% shunt. Pre-op PaO2 ~55 on RA CXR now with bilateral fluffy infiltrates / ARDS w/ pulmonary edema Desaturates with movement, turning, suctioning. Space = 60% today, with compliance ~45 -- maintain aggressive vent support (100% FiO2, wean PEEP is able as higher PEEP to increase shunt) -- lung protective strategies - Vt 6ml/kg ideal body weight (~350ml) -- trach on hold while unstable -- lasix TID -- Continue Nitric oxide -- increased I:E ratio -- avoid fluid boluses for hypotension - use pressors if needed -- sputum sent for culture Postoperative anemia due to acute blood loss 04/22/2017 Overview: S/P liver transplant with EBL 17 L c/b thrombocytopenia, coagulopahty and OP bleeding requiring intra-op nasal and pharyngeal packing Last transfused 10/08 2U PRBCs. 10/10: ENT removed nasal merocel. Clots in both nasopharyxes. No reinsertion of nasal tubes. -- monitor CBC and coags -- transfuse as required Agitation requiring sedation protocol 10/05/2015 04/22/2017 Overview: Required prolonged neuromuscular blockade with deep sedation secondary to increased WOB, breath stacking and hypoxia After discontinuation, he has had difficultly controlling agitation, likely opioid withdrawl. Had required precedex, fentanyl patch, prn haldol, seroquel Currently on seroquel, fentanyl patch Has been awake and alert, very cooperative -- continue on decreased TID seroquel dosing of 25mg TID and 150 mg qHS -- continue with fentanyl patch Acute post-operative pain 10/05/20152016 Overview: Was on prolonged fentanyl infusion d/t vent asynchrony, pain from liver tx Now transitioned to patch, infusion stopped 11/13 -- continue fentanyl patch (100mcg) Renal insufficiency 10/05/2015 10/08/2015 Overview: Secondary to hypotension Baseline Scr 0.66, now down to 0.83 Making good UO -- monitor renal indices Stress hyperglycemia 10/05/2015 04/22/2017 Overview: -- Adequate glycemic control with SSI Moderate protein-calorie malnutrition 10/05/2015 04/22/2017 Overview: Tolerating goal tube feeds Osmolite 1.2 @ 70 Prealbumin 26, transferrin 185 -- continue TF with fiber and beneprotien and full liquid diet -- nutrition following Abdominal distension 09/12/2015 04/22/2017 Overview: - concerning given weight gain of 30 lb from 09/04 - CT abdomen on last admission showed tissue edema> ascites, concern for third spacing in the abdominal wall tissue - no evidence of active infection, however, currently pancytopenia - was taking Lasix 20 mg PO every other day and spironolactone 50 mg PO daily - Liver vascular U/S demonstrates patent vasculature Plan - diuresis with Lasix 40 mg PO BID and spironolactone 100 mg PO daily - paracentesis as needed for respiratory function Liver transplant candidate 08/17/201504/22 Pain disorder with psychological factors 015 12/23/2021 Hyperammonemia 07/20/2015 04/22/2017 SUMMARY 06/14/2015 09/12/2015 Overview: Mr. 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 SOB (shortness of breath) 06/14/20152016 Overview: Started after dry run Possibly irritated by catheter? Systolic murmur also heard Chest x-ray and CT PE negative Currently at baseline New valvular lesion vs clot? -Echocardiogram -Doppler study -Observe for now Hepatic cirrhosis 06/14/2015 04/22/2017 Overview: #Cirrhosis -Continue lactulose, rifaximin -Continue aldactone Infection of other external stoma of urinary tra ct 05/17/2015 04/22/2017 UTI (lower urinary tract infection) 04/08/2015 04/22/2017 Overview: Was complaining of dysuria. UA positive with leukoesterase and Was started of ceftriaxone at OSH. Received 2 dosages here yesterday and one today. Will finish treatment for complicated UTI at home with cipro [id number] Hepatic encephalopathy 04/08/2015 7 Overview: On lactulose zinc Rifaximin Fever, low grade 11/03/2014 04/22/2017 Overview: Low grade fever on presentation UA clean Plan - Blood cx ngtd - afebrile since SUMMARY 08/31/2014 07/24/2016 Overview: The patient is a 50 yo male with a past medical history of HCV/ETOH Liver Cirrhosis c/b hepatopulmonary syndrome, hypersplenism, HE, Grade I EV, pulmonary sarcoidosis who presents with acute weight gain, abdominal distension, and SOB Fever and chills 08/31/2014 04/22/2017 Overview: Tmax 38.7 this AM; pt reports recent history of tooth extraction One time fever yesterday Received 2 time cefazolin after PFO closure. Plan: -UA, BCxx2 - NG till now -will hold off on abx for now and observe Retained dental root 08/15/2014 12/23/2021 Hepatopulmonary syndrome 03/12/2014 018 Overview: History of hepatopulmonary syndrome with ~45.2% shunt, pulmonary sarcoidosis requiring home O2 6-10 liters and mild pulmonary HTN Preop PaO2 ~55 on RA Profound hypoxia postoperatively requiring max vent support with high PEEP, heavy sedation/paralytics, flolan, nitric oxide (off since 10/26) Course c/b Right lung Pneumothorax, resp failure requiring trach 11/01 Decompensation 11/04 secondary to narcotic withdrawal +/- sepsis-->Drastically improved with fentanyl infusion, ATB. Updated echo 11/15 with EF 55%, normal RV Currently doing great, on continuous trach collar with passy etta valve, and diet -- Goal sats 85% -- Continue TC, PMV, OOB Bicytopenia 03/12/2014 04/22/2017 Overview: He has plat count of 20k and WCC of around 1000 His neutropenia is likely 2/2 to INF His thrombocytopenia is likley 2/2 to his cirrhosis Plan: Watch, transfuse plats if <10k or bleeding Pancytopenia 03/11/2014 03/12/2014 Hypoxemia 03/11/2014 10/15/2015 Overview: Due to underlying HPS Now on 100% Fio2 with last PaO2 60, Nitric oxide started 10/08, at 40 PPM. O2 sats maintaining in 80s CTS consulted for ECMO evaluation -- Given profound thrombocytopenia and grave condition ECMO not recommended -- Continue nitric oxide -- lung protective ventilation -- increased I:E ratio (at 2.4:1), paralyze with rocuronium if needed -- goal of O2 sats in 70s permissible COPD (chronic obstructive pulmonary disease) 03/12/2014 Coagulopathy 03/11/2014 04/22/2017 Syncope 01/03/2014 04/22/2017 Epididymitis 11/24/2013 04/22/2017 Testalgia 11/24/2013 04/22/2017 Thrombocytopenia 08/20/2009 04/22/2017 Overview: Platelets 96k today, received platelets 10/11 prior to liver biopsy. no obvious bleeding -- monitor CBC, coags -- transfuse as required -- monitor for bleeding -- transfuse plts prior to invasive procedures Hepatitis C 08/20/2009 11/03/2014 Cirrhosis 04/22/2017 Overview: Secondary to alcohol use and HCV complicated by ascites, PSE (on lactulose, rifaximin) and hepatopulmonary syndrome on home O2 s/p OLT on 10/03/15 Concern for rejection (humoral), now s/p thymo, IVIG, plasmapheresis 10/15 and 10/16 completed -hydrocortisone (switched from prednisone) now tapering down - MMF - FK documented as of this encounter (statuses as of 03/03/2022) [facility] History of Past illness Narrative* Problem Noted Date Resolved Date Hilar adenopathy 07/09/2018 08/19/2018 Last Assessment & Plan: Assessment: CT A/P on Admission shows Significant subcarinal and bilateral hilar adenopathy on the lower images through the chest. Lymphoproliferative disease suspected He does have a hx of sarcoid But no recent CT chest/CXR to compare. CT chest shows SPLENOMEGALY AND NUMEROUS ENLARGED MEDIASTINAL AND BILATERAL HILAR LYMPH NODES, INCREASED IN SIZE SINCE 2016. THE DIFFERENTIAL DIAGNOSIS INCLUDES SARCOIDOSIS AND LYMPHOPROLIFERATIVE DISEASE. PLAN: -Transfer to [facility] for further evaluation by oncology per ID recommedation. Nausea & vomiting 07/09/2018 07/28/2018 Last Assessment & Plan: Assessment: Patient notes off and on nausea for one month. Also notes worsening control of his reflux symptoms. CTA/P shows significant subcarinal and bilateral hilar adenopathy and new subtle intrahepatic biliary dilatation and common duct dilatation . Obstructing lesion must be excluded, however.Splenic enlargement PLAN: -Increase protonix to 40mg bid -Zofran PRN for N/V -GI consult pending. Cellulitis 07/09/2018 07/13/2018 Abdominal wall cellulitis 12/01/20172021 Last Assessment & Plan: Assessment: Second Episode this year . Likely due to his constant picking of the skin of his abdomen. He is HDS, no leucocytosis,crp 2.6,ESR 2,lactate normal CTA/P shows no abscess nor cellulitis . PLAN: Continue ancef started in the ER. Continue bactrim as scheduled for prophylaxis - due to hx of liver transplant PRN morphine for pain. ID consult (because of his immunocompromised state - hx of liver transplant/ommunesuppresants) Wound care consult (re:open areas on his abdomen due to his scratching) F/up on blood Culture Ventral hernia without obstruction or gangrene 0 03/24/2017 04/22/2017 Lower abdominal pain 07/23/2016 04/22/2017 Opioid withdrawal 11/09/2015 04/22/2017 Overview: Thursday with opioid withdrawal after attempted discontinuation of fentanyl Resolution of symptoms after re-starting fentanyl -- Continue fentanyl patch with prn IVP fentanyl for breakthrough pain -- Drip stopped 3/2 Respiratory failure, post-operative 10/22/2015 04/22/2017 Overview: Pt intubated for OLT on 10/03/15, remained intubated d/t severe hypoxia (see hepato pulmonary syndrome) 11/01 s/p tracheostomy Very weak and debilitated, profound ICU neuromyopathy Currently improved, toleratingTC, passy etta valve capped -- continue trach collar, PMV Acute pneumothorax 10/17/2015 04/22/2017 Prerenal azotemia 10/17/2015 10/24/2015 Overview: Bun/ Creat ratio now trending down. Hypernatremia resolved -- trend Renal indices -- lasix 20 mg q8 Acute pulmonary embolism 10/17/2015 017 Spontaneous pneumothorax 10/16/2015 017 Overview: Pneumothorax discovered on CT chest 10/15 in setting of high PEEP requirements s/p chest tube placements x2 Last CT removed 11/02 CXR with small persistent Rt. Apical pneumothorax- not appeciated on today's CXR --continue to follow daily CXRs Pneumonia, organism unspecified(486) 10/16/2015 11/02/2015 Overview: CT of chest 10/15 shows RLL consolidation suspicious for pneumonia. Completed course of vanco and meropenem continuing micfungin. Sputum culture from 10/09 shows normal respiratory erum. legionella urinary antigen negative --ID following Sepsis due to other etiology 10/15/201505/2017 Overview: Has completed empiric courses of antibiotics for persistent low grade fevers and acute decompensation No obvious source of infection identified per extensive ID workup Vanco d/c 10/25, Meropenem d/c 10/26 11/04 Acute decompensation (fevers 11/05) empiric pip-tazo, vanc, micafungin added--> off since 11/11 (cultures negative) CT chest/ab/pelvis (11/08) with no evidence of infective process -- continue to monitor off ATB Postoperative shock 10/09/2015 04/22/2017 Overview: Shock, hypotension, fevers with increasing leukocytosis in setting of liver transplant, hepatopulmonary syndrome, ARDS, hypoxia. Profound hypoxia requiring nitric oxide therapy. Required low dose levo for BP support, now off. Concern for sepsis, blood cultures negative to date, vanco and zosyn started empirically 10/08. Procalcitonin 1.06. Lacate 1.8 -- Follow cultures -- continue vanco and zosyn -- levo for BP support (avoid fluid boluses if hypotensive) Electrolyte and fluid disorder 10/07/2015 0 04/22/2017 Overview: Hypomagnesemia repleted, hyperphos -- monitor and replete lytes daily -- increase daily PO mag oxide to 800 mg TID New onset seizure 10/05/2015 11/22/2019 Overview: Seizure activity 10/05, BEM supported the dx of cortical dysfunction in the left hemisphere with potential epileptogenicity in the left fronto-central region CT head negative for acute process, neurology consulted, loaded with Keppra Currently alert, follows commands -- weaned to Keppra 500mg bid -- neurology recommending follow up with epilepsy as outpatient ARDS (adult respiratory distress syndrome) 10/0504/22/2017 Overview: Hx of hepatopulmonary syndrome, pulmonary sarcoidosis requiring home O2 6-10 liters Pulmonary HTN with ~45% shunt. Pre-op PaO2 ~55 on RA CXR now with bilateral fluffy infiltrates / ARDS w/ pulmonary edema Desaturates with movement, turning, suctioning. Space = 60% today, with compliance ~45 -- maintain aggressive vent support (100% FiO2, wean PEEP is able as higher PEEP to increase shunt) -- lung protective strategies - Vt 6ml/kg ideal body weight (~350ml) -- trach on hold while unstable -- lasix TID -- Continue Nitric oxide -- increased I:E ratio -- avoid fluid boluses for hypotension - use pressors if needed -- sputum sent for culture Postoperative anemia due to acute blood loss 04/22/2017 Overview: S/P liver transplant with EBL 17 L c/b thrombocytopenia, coagulopahty and OP bleeding requiring intra-op nasal and pharyngeal packing Last transfused 10/08 2U PRBCs. 10/10: ENT removed nasal merocel. Clots in both nasopharyxes. No reinsertion of nasal tubes. -- monitor CBC and coags -- transfuse as required Agitation requiring sedation protocol 10/05/2015 04/22/2017 Overview: Required prolonged neuromuscular blockade with deep sedation secondary to increased WOB, breath stacking and hypoxia After discontinuation, he has had difficultly controlling agitation, likely opioid withdrawl. Had required precedex, fentanyl patch, prn haldol, seroquel Currently on seroquel, fentanyl patch Has been awake and alert, very cooperative -- continue on decreased TID seroquel dosing of 25mg TID and 150 mg qHS -- continue with fentanyl patch Acute post-operative pain 10/05/20152016 Overview: Was on prolonged fentanyl infusion d/t vent asynchrony, pain from liver tx Now transitioned to patch, infusion stopped 11/13 -- continue fentanyl patch (100mcg) Renal insufficiency 10/05/2015 10/08/2015 Overview: Secondary to hypotension Baseline Scr 0.66, now down to 0.83 Making good UO -- monitor renal indices Stress hyperglycemia 10/05/2015 04/22/2017 Overview: -- Adequate glycemic control with SSI Moderate protein-calorie malnutrition 10/05/2015 04/22/2017 Overview: Tolerating goal tube feeds Osmolite 1.2 @ 70 Prealbumin 26, transferrin 185 -- continue TF with fiber and beneprotien and full liquid diet -- nutrition following Abdominal distension 09/12/2015 04/22/2017 Overview: - concerning given weight gain of 30 lb from 09/04 - CT abdomen on last admission showed tissue edema> ascites, concern for third spacing in the abdominal wall tissue - no evidence of active infection, however, currently pancytopenia - was taking Lasix 20 mg PO every other day and spironolactone 50 mg PO daily - Liver vascular U/S demonstrates patent vasculature Plan - diuresis with Lasix 40 mg PO BID and spironolactone 100 mg PO daily - paracentesis as needed for respiratory function Liver transplant candidate 08/17/201504/22 Pain disorder with psychological factors 015 12/23/2021 Hyperammonemia 07/20/2015 04/22/2017 SUMMARY 06/14/2015 09/12/2015 Overview: Mr. 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 SOB (shortness of breath) 06/14/20152016 Overview: Started after dry run Possibly irritated by catheter? Systolic murmur also heard Chest x-ray and CT PE negative Currently at baseline New valvular lesion vs clot? -Echocardiogram -Doppler study -Observe for now Hepatic cirrhosis 06/14/2015 04/22/2017 Overview: #Cirrhosis -Continue lactulose, rifaximin -Continue aldactone Infection of other external stoma of urinary tra ct 05/17/2015 04/22/2017 UTI (lower urinary tract infection) 04/08/2015 04/22/2017 Overview: Was complaining of dysuria. UA positive with leukoesterase and Was started of ceftriaxone at OSH. Received 2 dosages here yesterday and one today. Will finish treatment for complicated UTI at home with cipro 500BID Hepatic encephalopathy 04/08/2015 7 Overview: On lactulose zinc Rifaximin Fever, low grade 11/03/2014 04/22/2017 Overview: Low grade fever on presentation UA clean Plan - Blood cx ngtd - afebrile since SUMMARY 08/31/2014 07/24/2016 Overview: The patient is a 50 yo male with a past medical history of HCV/ETOH Liver Cirrhosis c/b hepatopulmonary syndrome, hypersplenism, HE, Grade I EV, pulmonary sarcoidosis who presents with acute weight gain, abdominal distension, and SOB Fever and chills 08/31/2014 04/22/2017 Overview: Tmax 38.7 this AM; pt reports recent history of tooth extraction One time fever yesterday Received 2 time cefazolin after PFO closure. Plan: -UA, BCxx2 - NG till now -will hold off on abx for now and observe Retained dental root 08/15/2014 12/23/2021 Hepatopulmonary syndrome 03/12/2014 018 Overview: History of hepatopulmonary syndrome with ~45.2% shunt, pulmonary sarcoidosis requiring home O2 6-10 liters and mild pulmonary HTN Preop PaO2 ~55 on RA Profound hypoxia postoperatively requiring max vent support with high PEEP, heavy sedation/paralytics, flolan, nitric oxide (off since 10/26) Course c/b Right lung Pneumothorax, resp failure requiring trach 11/01 Decompensation 11/04 secondary to narcotic withdrawal +/- sepsis-->Drastically improved with fentanyl infusion, ATB. Updated echo 11/15 with EF 55%, normal RV Currently doing great, on continuous trach collar with passy etta valve, and diet -- Goal sats 85% -- Continue TC, PMV, OOB Bicytopenia 03/12/2014 04/22/2017 Overview: He has plat count of 20k and WCC of around 1000 His neutropenia is likely 2/2 to INF His thrombocytopenia is likley 2/2 to his cirrhosis Plan: Watch, transfuse plats if <10k or bleeding Pancytopenia 03/11/2014 03/12/2014 Hypoxemia 03/11/2014 10/15/2015 Overview: Due to underlying HPS Now on 100% Fio2 with last PaO2 60, Nitric oxide started 10/08, at 40 PPM. O2 sats maintaining in 80s CTS consulted for ECMO evaluation -- Given profound thrombocytopenia and grave condition ECMO not recommended -- Continue nitric oxide -- lung protective ventilation -- increased I:E ratio (at 2.4:1), paralyze with rocuronium if needed -- goal of O2 sats in 70s permissible COPD (chronic obstructive pulmonary disease) 03/12/2014 Coagulopathy 03/11/2014 04/22/2017 Syncope 01/03/2014 04/22/2017 Epididymitis 11/24/2013 04/22/2017 Testalgia 11/24/2013 04/22/2017 Thrombocytopenia 08/20/2009 04/22/2017 Overview: Platelets 96k today, received platelets 10/11 prior to liver biopsy. no obvious bleeding -- monitor CBC, coags -- transfuse as required -- monitor for bleeding -- transfuse plts prior to invasive procedures Hepatitis C 08/20/2009 11/03/2014 Cirrhosis 04/22/2017 Overview: Secondary to alcohol use and HCV complicated by ascites, PSE (on lactulose, rifaximin) and hepatopulmonary syndrome on home O2 s/p OLT on 10/03/15 Concern for rejection (humoral), now s/p thymo, IVIG, plasmapheresis 10/15 and 10/16 completed -hydrocortisone (switched from prednisone) now tapering down - MMF - FK documented as of this encounter (statuses as of 03/07/2022) [facility] History of Past illness Narrative* Problem Noted Date Resolved Date Hilar adenopathy 07/09/2018 08/19/2018 Last Assessment & Plan: Assessment: CT A/P on Admission shows Significant subcarinal and bilateral hilar adenopathy on the lower images through the chest. Lymphoproliferative disease suspected He does have a hx of sarcoid But no recent CT chest/CXR to compare. CT chest shows SPLENOMEGALY AND NUMEROUS ENLARGED MEDIASTINAL AND BILATERAL HILAR LYMPH NODES, INCREASED IN SIZE SINCE 2016. THE DIFFERENTIAL DIAGNOSIS INCLUDES SARCOIDOSIS AND LYMPHOPROLIFERATIVE DISEASE. PLAN: -Transfer to [facility] for further evaluation by oncology per ID recommedation. Nausea & vomiting 07/09/2018 07/28/2018 Last Assessment & Plan: Assessment: Patient notes off and on nausea for one month. Also notes worsening control of his reflux symptoms. CTA/P shows significant subcarinal and bilateral hilar adenopathy and new subtle intrahepatic biliary dilatation and common duct dilatation . Obstructing lesion must be excluded, however.Splenic enlargement PLAN: -Increase protonix to 40mg bid -Zofran PRN for N/V -GI consult pending. Cellulitis 07/09/2018 07/13/2018 Abdominal wall cellulitis 12/01/20172021 Last Assessment & Plan: Assessment: Second Episode this year . Likely due to his constant picking of the skin of his abdomen. He is HDS, no leucocytosis,crp 2.6,ESR 2,lactate normal CTA/P shows no abscess nor cellulitis . PLAN: Continue ancef started in the ER. Continue bactrim as scheduled for prophylaxis - due to hx of liver transplant PRN morphine for pain. ID consult (because of his immunocompromised state - hx of liver transplant/ommunesuppresants) Wound care consult (re:open areas on his abdomen due to his scratching) F/up on blood Culture Ventral hernia without obstruction or gangrene 0 03/24/2017 04/22/2017 Lower abdominal pain 07/23/2016 04/22/2017 Opioid withdrawal 11/09/2015 04/22/2017 Overview: Thursday with opioid withdrawal after attempted discontinuation of fentanyl Resolution of symptoms after re-starting fentanyl -- Continue fentanyl patch with prn IVP fentanyl for breakthrough pain -- Drip stopped / Respiratory failure, post-operative 10/22/2015 04/22/2017 Overview: Pt intubated for OLT on 10/03/15, remained intubated d/t severe hypoxia (see hepato pulmonary syndrome) 11/01 s/p tracheostomy Very weak and debilitated, profound ICU neuromyopathy Currently improved, toleratingTC, passy etta valve capped -- continue trach collar, PMV Acute pneumothorax 10/17/2015 04/22/2017 Prerenal azotemia 10/17/2015 10/24/2015 Overview: Bun/ Creat ratio now trending down. Hypernatremia resolved -- trend Renal indices -- lasix 20 mg q8 Acute pulmonary embolism 10/17/2015 017 Spontaneous pneumothorax 10/16/2015 017 Overview: Pneumothorax discovered on CT chest 10/15 in setting of high PEEP requirements s/p chest tube placements x2 Last CT removed 11/02 CXR with small persistent Rt. Apical pneumothorax- not appeciated on today's CXR --continue to follow daily CXRs Pneumonia, organism unspecified([phone]) 10/16/2015 11/02/2015 Overview: CT of chest 10/15 shows RLL consolidation suspicious for pneumonia. Completed course of vanco and meropenem continuing micfungin. Sputum culture from 10/09 shows normal respiratory erum. legionella urinary antigen negative --ID following Sepsis due to other etiology 10/15/201505/2017 Overview: Has completed empiric courses of antibiotics for persistent low grade fevers and acute decompensation No obvious source of infection identified per extensive ID workup Vanco d/c 10/25, Meropenem d/c 10/26 11/04 Acute decompensation (fevers 11/05) empiric pip-tazo, vanc, micafungin added--> off since 11/11 (cultures negative) CT chest/ab/pelvis (11/08) with no evidence of infective process -- continue to monitor off ATB Postoperative shock 10/09/2015 04/22/2017 Overview: Shock, hypotension, fevers with increasing leukocytosis in setting of liver transplant, hepatopulmonary syndrome, ARDS, hypoxia. Profound hypoxia requiring nitric oxide therapy. Required low dose levo for BP support, now off. Concern for sepsis, blood cultures negative to date, vanco and zosyn started empirically 10/08. Procalcitonin 1.06. Lacate 1.8 -- Follow cultures -- continue vanco and zosyn -- levo for BP support (avoid fluid boluses if hypotensive) Electrolyte and fluid disorder 10/07/2015 0 04/22/2017 Overview: Hypomagnesemia repleted, hyperphos -- monitor and replete lytes daily -- increase daily PO mag oxide to 800 mg TID New onset seizure 10/05/2015 11/22/2019 Overview: Seizure activity 10/05, BEM supported the dx of cortical dysfunction in the left hemisphere with potential epileptogenicity in the left fronto-central region CT head negative for acute process, neurology consulted, loaded with Keppra Currently alert, follows commands -- weaned to Keppra 500mg bid -- neurology recommending follow up with epilepsy as outpatient ARDS (adult respiratory distress syndrome) 10/0504/22/2017 Overview: Hx of hepatopulmonary syndrome, pulmonary sarcoidosis requiring home O2 6-10 liters Pulmonary HTN with ~45% shunt. Pre-op PaO2 ~55 on RA CXR now with bilateral fluffy infiltrates / ARDS w/ pulmonary edema Desaturates with movement, turning, suctioning. Space = 60% today, with compliance ~45 -- maintain aggressive vent support (100% FiO2, wean PEEP is able as higher PEEP to increase shunt) -- lung protective strategies - Vt 6ml/kg ideal body weight (~350ml) -- trach on hold while unstable -- lasix TID -- Continue Nitric oxide -- increased I:E ratio -- avoid fluid boluses for hypotension - use pressors if needed -- sputum sent for culture Postoperative anemia due to acute blood loss 04/22/2017 Overview: S/P liver transplant with EBL 17 L c/b thrombocytopenia, coagulopahty and OP bleeding requiring intra-op nasal and pharyngeal packing Last transfused 10/08 2U PRBCs. 10/10: ENT removed nasal merocel. Clots in both nasopharyxes. No reinsertion of nasal tubes. -- monitor CBC and coags -- transfuse as required Agitation requiring sedation protocol 10/05/2015 04/22/2017 Overview: Required prolonged neuromuscular blockade with deep sedation secondary to increased WOB, breath stacking and hypoxia After discontinuation, he has had difficultly controlling agitation, likely opioid withdrawl. Had required precedex, fentanyl patch, prn haldol, seroquel Currently on seroquel, fentanyl patch Has been awake and alert, very cooperative -- continue on decreased TID seroquel dosing of 25mg TID and 150 mg qHS -- continue with fentanyl patch Acute post-operative pain 10/05/20152016 Overview: Was on prolonged fentanyl infusion d/t vent asynchrony, pain from liver tx Now transitioned to patch, infusion stopped 11/13 -- continue fentanyl patch (100mcg) Renal insufficiency 10/05/2015 10/08/2015 Overview: Secondary to hypotension Baseline Scr 0.66, now down to 0.83 Making good UO -- monitor renal indices Stress hyperglycemia 10/05/2015 04/22/2017 Overview: -- Adequate glycemic control with SSI Moderate protein-calorie malnutrition 10/05/2015 04/22/2017 Overview: Tolerating goal tube feeds Osmolite 1.2 @ 70 Prealbumin 26, transferrin 185 -- continue TF with fiber and beneprotien and full liquid diet -- nutrition following Abdominal distension 09/12/2015 04/22/2017 Overview: - concerning given weight gain of 30 lb from 09/04 - CT abdomen on last admission showed tissue edema> ascites, concern for third spacing in the abdominal wall tissue - no evidence of active infection, however, currently pancytopenia - was taking Lasix 20 mg PO every other day and spironolactone 50 mg PO daily - Liver vascular U/S demonstrates patent vasculature Plan - diuresis with Lasix 40 mg PO BID and spironolactone 100 mg PO daily - paracentesis as needed for respiratory function Liver transplant candidate 08/17/201504/22 Pain disorder with psychological factors 015 12/23/2021 Hyperammonemia 07/20/2015 04/22/2017 SUMMARY 06/14/2015 09/12/2015 Overview: Mr. 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 SOB (shortness of breath) 06/14/20152016 Overview: Started after dry run Possibly irritated by catheter? Systolic murmur also heard Chest x-ray and CT PE negative Currently at baseline New valvular lesion vs clot? -Echocardiogram -Doppler study -Observe for now Hepatic cirrhosis 06/14/2015 04/22/2017 Overview: #Cirrhosis -Continue lactulose, rifaximin -Continue aldactone Infection of other external stoma of urinary tra ct 05/17/2015 04/22/2017 UTI (lower urinary tract infection) 04/08/2015 04/22/2017 Overview: Was complaining of dysuria. UA positive with leukoesterase and Was started of ceftriaxone at OSH. Received 2 dosages here yesterday and one today. Will finish treatment for complicated UTI at home with cipro [id number] Hepatic encephalopathy 04/08/2015 7 Overview: On lactulose zinc Rifaximin Fever, low grade 11/03/2014 04/22/2017 Overview: Low grade fever on presentation UA clean Plan - Blood cx ngtd - afebrile since SUMMARY 08/31/2014 07/24/2016 Overview: The patient is a 50 yo male with a past medical history of HCV/ETOH Liver Cirrhosis c/b hepatopulmonary syndrome, hypersplenism, HE, Grade I EV, pulmonary sarcoidosis who presents with acute weight gain, abdominal distension, and SOB Fever and chills 08/31/2014 04/22/2017 Overview: Tmax 38.7 this AM; pt reports recent history of tooth extraction One time fever yesterday Received 2 time cefazolin after PFO closure. Plan: -UA, BCxx2 - NG till now -will hold off on abx for now and observe Retained dental root 08/15/2014 12/23/2021 Hepatopulmonary syndrome 03/12/2014 018 Overview: History of hepatopulmonary syndrome with ~45.2% shunt, pulmonary sarcoidosis requiring home O2 6-10 liters and mild pulmonary HTN Preop PaO2 ~55 on RA Profound hypoxia postoperatively requiring max vent support with high PEEP, heavy sedation/paralytics, flolan, nitric oxide (off since 10/26) Course c/b Right lung Pneumothorax, resp failure requiring trach 11/01 Decompensation 11/04 secondary to narcotic withdrawal +/- sepsis-->Drastically improved with fentanyl infusion, ATB. Updated echo 3/4 with EF 55%, normal RV Currently doing great, on continuous trach collar with passy etta valve, and diet -- Goal sats 85% -- Continue TC, PMV, OOB Bicytopenia 03/12/2014 04/22/2017 Overview: He has plat count of 20k and WCC of around 1000 His neutropenia is likely 2/2 to INF His thrombocytopenia is likley 2/2 to his cirrhosis Plan: Watch, transfuse plats if <10k or bleeding Pancytopenia 03/11/2014 03/12/2014 Hypoxemia 03/11/2014 10/15/2015 Overview: Due to underlying HPS Now on 100% Fio2 with last PaO2 60, Nitric oxide started 10/08, at 40 PPM. O2 sats maintaining in 80s CTS consulted for ECMO evaluation -- Given profound thrombocytopenia and grave condition ECMO not recommended -- Continue nitric oxide -- lung protective ventilation -- increased I:E ratio (at 2.4:1), paralyze with rocuronium if needed -- goal of O2 sats in 70s permissible COPD (chronic obstructive pulmonary disease) 03/12/2014 Coagulopathy 03/11/2014 04/22/2017 Syncope 01/03/2014 04/22/2017 Epididymitis 11/24/2013 04/22/2017 Testalgia 11/24/2013 04/22/2017 Thrombocytopenia 08/20/2009 04/22/2017 Overview: Platelets 96k today, received platelets 10/11 prior to liver biopsy. no obvious bleeding -- monitor CBC, coags -- transfuse as required -- monitor for bleeding -- transfuse plts prior to invasive procedures Hepatitis C 08/20/2009 11/03/2014 Cirrhosis 04/22/2017 Overview: Secondary to alcohol use and HCV complicated by ascites, PSE (on lactulose, rifaximin) and hepatopulmonary syndrome on home O2 s/p OLT on 10/03/15 Concern for rejection (humoral), now s/p thymo, IVIG, plasmapheresis 10/15 and 2/2 completed -hydrocortisone (switched from prednisone) now tapering down - MMF - FK documented as of this encounter (statuses as of 03/11/2022) [facility] History of Past illness Narrative* Problem Noted Date Resolved Date Hilar adenopathy 07/09/2018 08/19/2018 Last Assessment & Plan: Assessment: CT A/P on Admission shows Significant subcarinal and bilateral hilar adenopathy on the lower images through the chest. Lymphoproliferative disease suspected He does have a hx of sarcoid But no recent CT chest/CXR to compare. CT chest shows SPLENOMEGALY AND NUMEROUS ENLARGED MEDIASTINAL AND BILATERAL HILAR LYMPH NODES, INCREASED IN SIZE SINCE 2016. THE DIFFERENTIAL DIAGNOSIS INCLUDES SARCOIDOSIS AND LYMPHOPROLIFERATIVE DISEASE. PLAN: -Transfer to [facility] for further evaluation by oncology per ID recommedation. Nausea & vomiting 07/09/2018 07/28/2018 Last Assessment & Plan: Assessment: Patient notes off and on nausea for one month. Also notes worsening control of his reflux symptoms. CTA/P shows significant subcarinal and bilateral hilar adenopathy and new subtle intrahepatic biliary dilatation and common duct dilatation . Obstructing lesion must be excluded, however.Splenic enlargement PLAN: -Increase protonix to 40mg bid -Zofran PRN for N/V -GI consult pending. Cellulitis 07/09/2018 07/13/2018 Abdominal wall cellulitis 12/01/20172021 Last Assessment & Plan: Assessment: Second Episode this year . Likely due to his constant picking of the skin of his abdomen. He is HDS, no leucocytosis,crp 2.6,ESR 2,lactate normal CTA/P shows no abscess nor cellulitis . PLAN: Continue ancef started in the ER. Continue bactrim as scheduled for prophylaxis - due to hx of liver transplant PRN morphine for pain. ID consult (because of his immunocompromised state - hx of liver transplant/ommunesuppresants) Wound care consult (re:open areas on his abdomen due to his scratching) F/up on blood Culture Ventral hernia without obstruction or gangrene 0 03/24/2017 04/22/2017 Lower abdominal pain 07/23/2016 04/22/2017 Opioid withdrawal 11/09/2015 04/22/2017 Overview: Thursday with opioid withdrawal after attempted discontinuation of fentanyl Resolution of symptoms after re-starting fentanyl -- Continue fentanyl patch with prn IVP fentanyl for breakthrough pain -- Drip stopped 3/ Respiratory failure, post-operative 10/22/2015 04/22/2017 Overview: Pt intubated for OLT on 10/03/15, remained intubated d/t severe hypoxia (see hepato pulmonary syndrome) 11/01 s/p tracheostomy Very weak and debilitated, profound ICU neuromyopathy Currently improved, toleratingTC, passy etta valve capped -- continue trach collar, PMV Acute pneumothorax 10/17/2015 04/22/2017 Prerenal azotemia 10/17/2015 10/24/2015 Overview: Bun/ Creat ratio now trending down. Hypernatremia resolved -- trend Renal indices -- lasix 20 mg q8 Acute pulmonary embolism 10/17/2015 017 Spontaneous pneumothorax 10/16/2015 017 Overview: Pneumothorax discovered on CT chest 10/15 in setting of high PEEP requirements s/p chest tube placements x2 Last CT removed 11/02 CXR with small persistent Rt. Apical pneumothorax- not appeciated on today's CXR --continue to follow daily CXRs Pneumonia, organism unspecified(486) 10/16/2015 11/02/2015 Overview: CT of chest 10/15 shows RLL consolidation suspicious for pneumonia. Completed course of vanco and meropenem continuing micfungin. Sputum culture from 10/09 shows normal respiratory erum. legionella urinary antigen negative --ID following Sepsis due to other etiology 10/15/201505/2017 Overview: Has completed empiric courses of antibiotics for persistent low grade fevers and acute decompensation No obvious source of infection identified per extensive ID workup Vanco d/c 10/25, Meropenem d/c 10/26 11/04 Acute decompensation (fevers 11/05) empiric pip-tazo, vanc, micafungin added--> off since 11/11 (cultures negative) CT chest/ab/pelvis (11/08) with no evidence of infective process -- continue to monitor off ATB Postoperative shock 10/09/2015 04/22/2017 Overview: Shock, hypotension, fevers with increasing leukocytosis in setting of liver transplant, hepatopulmonary syndrome, ARDS, hypoxia. Profound hypoxia requiring nitric oxide therapy. Required low dose levo for BP support, now off. Concern for sepsis, blood cultures negative to date, vanco and zosyn started empirically 10/08. Procalcitonin 1.06. Lacate 1.8 -- Follow cultures -- continue vanco and zosyn -- levo for BP support (avoid fluid boluses if hypotensive) Electrolyte and fluid disorder 10/07/2015 0 04/22/2017 Overview: Hypomagnesemia repleted, hyperphos -- monitor and replete lytes daily -- increase daily PO mag oxide to 800 mg TID New onset seizure 10/05/2015 11/22/2019 Overview: Seizure activity 10/05, BEM supported the dx of cortical dysfunction in the left hemisphere with potential epileptogenicity in the left fronto-central region CT head negative for acute process, neurology consulted, loaded with Keppra Currently alert, follows commands -- weaned to Keppra 500mg bid -- neurology recommending follow up with epilepsy as outpatient ARDS (adult respiratory distress syndrome) 10/0504/22/2017 Overview: Hx of hepatopulmonary syndrome, pulmonary sarcoidosis requiring home O2 6-10 liters Pulmonary HTN with ~45% shunt. Pre-op PaO2 ~55 on RA CXR now with bilateral fluffy infiltrates / ARDS w/ pulmonary edema Desaturates with movement, turning, suctioning. Space = 60% today, with compliance ~45 -- maintain aggressive vent support (100% FiO2, wean PEEP is able as higher PEEP to increase shunt) -- lung protective strategies - Vt 6ml/kg ideal body weight (~350ml) -- trach on hold while unstable -- lasix TID -- Continue Nitric oxide -- increased I:E ratio -- avoid fluid boluses for hypotension - use pressors if needed -- sputum sent for culture Postoperative anemia due to acute blood loss 04/22/2017 Overview: S/P liver transplant with EBL 17 L c/b thrombocytopenia, coagulopahty and OP bleeding requiring intra-op nasal and pharyngeal packing Last transfused 10/08 2U PRBCs. 10/10: ENT removed nasal merocel. Clots in both nasopharyxes. No reinsertion of nasal tubes. -- monitor CBC and coags -- transfuse as required Agitation requiring sedation protocol 10/05/2015 04/22/2017 Overview: Required prolonged neuromuscular blockade with deep sedation secondary to increased WOB, breath stacking and hypoxia After discontinuation, he has had difficultly controlling agitation, likely opioid withdrawl. Had required precedex, fentanyl patch, prn haldol, seroquel Currently on seroquel, fentanyl patch Has been awake and alert, very cooperative -- continue on decreased TID seroquel dosing of 25mg TID and 150 mg qHS -- continue with fentanyl patch Acute post-operative pain 10/05/20152016 Overview: Was on prolonged fentanyl infusion d/t vent asynchrony, pain from liver tx Now transitioned to patch, infusion stopped 11/13 -- continue fentanyl patch (100mcg) Renal insufficiency 10/05/2015 10/08/2015 Overview: Secondary to hypotension Baseline Scr 0.66, now down to 0.83 Making good UO -- monitor renal indices Stress hyperglycemia 10/05/2015 04/22/2017 Overview: -- Adequate glycemic control with SSI Moderate protein-calorie malnutrition 10/05/2015 04/22/2017 Overview: Tolerating goal tube feeds Osmolite 1.2 @ 70 Prealbumin 26, transferrin 185 -- continue TF with fiber and beneprotien and full liquid diet -- nutrition following Abdominal distension 09/12/2015 04/22/2017 Overview: - concerning given weight gain of 30 lb from 09/04 - CT abdomen on last admission showed tissue edema> ascites, concern for third spacing in the abdominal wall tissue - no evidence of active infection, however, currently pancytopenia - was taking Lasix 20 mg PO every other day and spironolactone 50 mg PO daily - Liver vascular U/S demonstrates patent vasculature Plan - diuresis with Lasix 40 mg PO BID and spironolactone 100 mg PO daily - paracentesis as needed for respiratory function Liver transplant candidate 08/17/201504/22 Pain disorder with psychological factors 015 12/23/2021 Hyperammonemia 07/20/2015 04/22/2017 SUMMARY 06/14/2015 09/12/2015 Overview: Mr. 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 SOB (shortness of breath) 06/14/20152016 Overview: Started after dry run Possibly irritated by catheter? Systolic murmur also heard Chest x-ray and CT PE negative Currently at baseline New valvular lesion vs clot? -Echocardiogram -Doppler study -Observe for now Hepatic cirrhosis 06/14/2015 04/22/2017 Overview: #Cirrhosis -Continue lactulose, rifaximin -Continue aldactone Infection of other external stoma of urinary tra ct 05/17/2015 04/22/2017 UTI (lower urinary tract infection) 04/08/2015 04/22/2017 Overview: Was complaining of dysuria. UA positive with leukoesterase and Was started of ceftriaxone at OSH. Received 2 dosages here yesterday and one today. Will finish treatment for complicated UTI at home with cipro 500BID Hepatic encephalopathy 04/08/2015 7 Overview: On lactulose zinc Rifaximin Fever, low grade 11/03/2014 04/22/2017 Overview: Low grade fever on presentation UA clean Plan - Blood cx ngtd - afebrile since SUMMARY 08/31/2014 07/24/2016 Overview: The patient is a 50 yo male with a past medical history of HCV/ETOH Liver Cirrhosis c/b hepatopulmonary syndrome, hypersplenism, HE, Grade I EV, pulmonary sarcoidosis who presents with acute weight gain, abdominal distension, and SOB Fever and chills 08/31/2014 04/22/2017 Overview: Tmax 38.7 this AM; pt reports recent history of tooth extraction One time fever yesterday Received 2 time cefazolin after PFO closure. Plan: -UA, BCxx2 - NG till now -will hold off on abx for now and observe Retained dental root 08/15/2014 12/23/2021 Hepatopulmonary syndrome 03/12/2014 018 Overview: History of hepatopulmonary syndrome with ~45.2% shunt, pulmonary sarcoidosis requiring home O2 6-10 liters and mild pulmonary HTN Preop PaO2 ~55 on RA Profound hypoxia postoperatively requiring max vent support with high PEEP, heavy sedation/paralytics, flolan, nitric oxide (off since 10/26) Course c/b Right lung Pneumothorax, resp failure requiring trach 11/01 Decompensation 11/04 secondary to narcotic withdrawal +/- sepsis-->Drastically improved with fentanyl infusion, ATB. Updated echo 11/15 with EF 55%, normal RV Currently doing great, on continuous trach collar with passy etta valve, and diet -- Goal sats 85% -- Continue TC, PMV, OOB Bicytopenia 03/12/2014 04/22/2017 Overview: He has plat count of 20k and WCC of around 1000 His neutropenia is likely 2/2 to INF His thrombocytopenia is likley 2/2 to his cirrhosis Plan: Watch, transfuse plats if <10k or bleeding Pancytopenia 03/11/2014 03/12/2014 Hypoxemia 03/11/2014 10/15/2015 Overview: Due to underlying HPS Now on 100% Fio2 with last PaO2 60, Nitric oxide started 10/08, at 40 PPM. O2 sats maintaining in 80s CTS consulted for ECMO evaluation -- Given profound thrombocytopenia and grave condition ECMO not recommended -- Continue nitric oxide -- lung protective ventilation -- increased I:E ratio (at 2.4:1), paralyze with rocuronium if needed -- goal of O2 sats in 70s permissible COPD (chronic obstructive pulmonary disease) 03/12/2014 Coagulopathy 03/11/2014 04/22/2017 Syncope 01/03/2014 04/22/2017 Epididymitis 11/24/2013 04/22/2017 Testalgia 11/24/2013 04/22/2017 Thrombocytopenia 08/20/2009 04/22/2017 Overview: Platelets 96k today, received platelets 10/11 prior to liver biopsy. no obvious bleeding -- monitor CBC, coags -- transfuse as required -- monitor for bleeding -- transfuse plts prior to invasive procedures Hepatitis C 08/20/2009 11/03/2014 Cirrhosis 04/22/2017 Overview: Secondary to alcohol use and HCV complicated by ascites, PSE (on lactulose, rifaximin) and hepatopulmonary syndrome on home O2 s/p OLT on 10/03/15 Concern for rejection (humoral), now s/p thymo, IVIG, plasmapheresis 10/15 and 10/16 completed -hydrocortisone (switched from prednisone) now tapering down - MMF - FK documented as of this encounter (statuses as of 03/13/2022) [facility]10[facility]2018 History of Past illness Narrative* Problem Noted Date Resolved Date Hilar adenopathy 07/09/2018 08/19/2018 Last Assessment & Plan: Assessment: CT A/P on Admission shows Significant subcarinal and bilateral hilar adenopathy on the lower images through the chest. Lymphoproliferative disease suspected He does have a hx of sarcoid But no recent CT chest/CXR to compare. CT chest shows SPLENOMEGALY AND NUMEROUS ENLARGED MEDIASTINAL AND BILATERAL HILAR LYMPH NODES, INCREASED IN SIZE SINCE 2016. THE DIFFERENTIAL DIAGNOSIS INCLUDES SARCOIDOSIS AND LYMPHOPROLIFERATIVE DISEASE. PLAN: -Transfer to [facility] for further evaluation by oncology per ID recommedation. Nausea & vomiting 07/09/2018 07/28/2018 Last Assessment & Plan: Assessment: Patient notes off and on nausea for one month. Also notes worsening control of his reflux symptoms. CTA/P shows significant subcarinal and bilateral hilar adenopathy and new subtle intrahepatic biliary dilatation and common duct dilatation . Obstructing lesion must be excluded, however.Splenic enlargement PLAN: -Increase protonix to 40mg bid -Zofran PRN for N/V -GI consult pending. Cellulitis 07/09/2018 07/13/2018 Abdominal wall cellulitis 12/01/20172021 Last Assessment & Plan: Assessment: Second Episode this year . Likely due to his constant picking of the skin of his abdomen. He is HDS, no leucocytosis,crp 2.6,ESR 2,lactate normal CTA/P shows no abscess nor cellulitis . PLAN: Continue ancef started in the ER. Continue bactrim as scheduled for prophylaxis - due to hx of liver transplant PRN morphine for pain. ID consult (because of his immunocompromised state - hx of liver transplant/ommunesuppresants) Wound care consult (re:open areas on his abdomen due to his scratching) F/up on blood Culture Ventral hernia without obstruction or gangrene 0 03/24/2017 04/22/2017 Lower abdominal pain 07/23/2016 04/22/2017 Opioid withdrawal 11/09/2015 04/22/2017 Overview: Thursday with opioid withdrawal after attempted discontinuation of fentanyl Resolution of symptoms after re-starting fentanyl -- Continue fentanyl patch with prn IVP fentanyl for breakthrough pain -- Drip stopped 3/2 Respiratory failure, post-operative 10/22/2015 04/22/2017 Overview: Pt intubated for OLT on 10/03/15, remained intubated d/t severe hypoxia (see hepato pulmonary syndrome) 11/01 s/p tracheostomy Very weak and debilitated, profound ICU neuromyopathy Currently improved, toleratingTC, passy etta valve capped -- continue trach collar, PMV Acute pneumothorax 10/17/2015 04/22/2017 Prerenal azotemia 10/17/2015 10/24/2015 Overview: Bun/ Creat ratio now trending down. Hypernatremia resolved -- trend Renal indices -- lasix 20 mg q8 Acute pulmonary embolism 10/17/2015 017 Spontaneous pneumothorax 10/16/2015 017 Overview: Pneumothorax discovered on CT chest 10/15 in setting of high PEEP requirements s/p chest tube placements x2 Last CT removed 11/02 CXR with small persistent Rt. Apical pneumothorax- not appeciated on today's CXR --continue to follow daily CXRs Pneumonia, organism unspecified([id number]) 10/16/2015 11/02/2015 Overview: CT of chest 10/15 shows RLL consolidation suspicious for pneumonia. Completed course of vanco and meropenem continuing micfungin. Sputum culture from 10/09 shows normal respiratory erum. legionella urinary antigen negative --ID following Sepsis due to other etiology 10/15/201505/2017 Overview: Has completed empiric courses of antibiotics for persistent low grade fevers and acute decompensation No obvious source of infection identified per extensive ID workup Vanco d/c 10/25, Meropenem d/c 10/26 11/04 Acute decompensation (fevers 11/05) empiric pip-tazo, vanc, micafungin added--> off since 11/11 (cultures negative) CT chest/ab/pelvis (11/08) with no evidence of infective process -- continue to monitor off ATB Postoperative shock 10/09/2015 04/22/2017 Overview: Shock, hypotension, fevers with increasing leukocytosis in setting of liver transplant, hepatopulmonary syndrome, ARDS, hypoxia. Profound hypoxia requiring nitric oxide therapy. Required low dose levo for BP support, now off. Concern for sepsis, blood cultures negative to date, vanco and zosyn started empirically 10/08. Procalcitonin 1.06. Lacate 1.8 -- Follow cultures -- continue vanco and zosyn -- levo for BP support (avoid fluid boluses if hypotensive) Electrolyte and fluid disorder 10/07/2015 0 04/22/2017 Overview: Hypomagnesemia repleted, hyperphos -- monitor and replete lytes daily -- increase daily PO mag oxide to 800 mg TID New onset seizure 10/05/2015 11/22/2019 Overview: Seizure activity 10/05, BEM supported the dx of cortical dysfunction in the left hemisphere with potential epileptogenicity in the left fronto-central region CT head negative for acute process, neurology consulted, loaded with Keppra Currently alert, follows commands -- weaned to Keppra 500mg bid -- neurology recommending follow up with epilepsy as outpatient ARDS (adult respiratory distress syndrome) 10/0504/22/2017 Overview: Hx of hepatopulmonary syndrome, pulmonary sarcoidosis requiring home O2 6-10 liters Pulmonary HTN with ~45% shunt. Pre-op PaO2 ~55 on RA CXR now with bilateral fluffy infiltrates / ARDS w/ pulmonary edema Desaturates with movement, turning, suctioning. Space = 60% today, with compliance ~45 -- maintain aggressive vent support (100% FiO2, wean PEEP is able as higher PEEP to increase shunt) -- lung protective strategies - Vt 6ml/kg ideal body weight (~350ml) -- trach on hold while unstable -- lasix TID -- Continue Nitric oxide -- increased I:E ratio -- avoid fluid boluses for hypotension - use pressors if needed -- sputum sent for culture Postoperative anemia due to acute blood loss 04/22/2017 Overview: S/P liver transplant with EBL 17 L c/b thrombocytopenia, coagulopahty and OP bleeding requiring intra-op nasal and pharyngeal packing Last transfused 10/08 2U PRBCs. 10/10: ENT removed nasal merocel. Clots in both nasopharyxes. No reinsertion of nasal tubes. -- monitor CBC and coags -- transfuse as required Agitation requiring sedation protocol 10/05/2015 04/22/2017 Overview: Required prolonged neuromuscular blockade with deep sedation secondary to increased WOB, breath stacking and hypoxia After discontinuation, he has had difficultly controlling agitation, likely opioid withdrawl. Had required precedex, fentanyl patch, prn haldol, seroquel Currently on seroquel, fentanyl patch Has been awake and alert, very cooperative -- continue on decreased TID seroquel dosing of 25mg TID and 150 mg qHS -- continue with fentanyl patch Acute post-operative pain 10/05/20152016 Overview: Was on prolonged fentanyl infusion d/t vent asynchrony, pain from liver tx Now transitioned to patch, infusion stopped 11/13 -- continue fentanyl patch (100mcg) Renal insufficiency 10/05/2015 10/08/2015 Overview: Secondary to hypotension Baseline Scr 0.66, now down to 0.83 Making good UO -- monitor renal indices Stress hyperglycemia 10/05/2015 04/22/2017 Overview: -- Adequate glycemic control with SSI Moderate protein-calorie malnutrition 10/05/2015 04/22/2017 Overview: Tolerating goal tube feeds Osmolite 1.2 @ 70 Prealbumin 26, transferrin 185 -- continue TF with fiber and beneprotien and full liquid diet -- nutrition following Abdominal distension 09/12/2015 04/22/2017 Overview: - concerning given weight gain of 30 lb from 09/04 - CT abdomen on last admission showed tissue edema> ascites, concern for third spacing in the abdominal wall tissue - no evidence of active infection, however, currently pancytopenia - was taking Lasix 20 mg PO every other day and spironolactone 50 mg PO daily - Liver vascular U/S demonstrates patent vasculature Plan - diuresis with Lasix 40 mg PO BID and spironolactone 100 mg PO daily - paracentesis as needed for respiratory function Liver transplant candidate 08/17/201504/22 Pain disorder with psychological factors 015 12/23/2021 Hyperammonemia 07/20/2015 04/22/2017 SUMMARY 06/14/2015 09/12/2015 Overview: Mr. 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 SOB (shortness of breath) 06/14/20152016 Overview: Started after dry run Possibly irritated by catheter? Systolic murmur also heard Chest x-ray and CT PE negative Currently at baseline New valvular lesion vs clot? -Echocardiogram -Doppler study -Observe for now Hepatic cirrhosis 06/14/2015 04/22/2017 Overview: #Cirrhosis -Continue lactulose, rifaximin -Continue aldactone Infection of other external stoma of urinary tra ct 05/17/2015 04/22/2017 UTI (lower urinary tract infection) 04/08/2015 04/22/2017 Overview: Was complaining of dysuria. UA positive with leukoesterase and Was started of ceftriaxone at OSH. Received 2 dosages here yesterday and one today. Will finish treatment for complicated UTI at home with cipro [id number] Hepatic encephalopathy 04/08/2015 7 Overview: On lactulose zinc Rifaximin Fever, low grade 11/03/2014 04/22/2017 Overview: Low grade fever on presentation UA clean Plan - Blood cx ngtd - afebrile since SUMMARY 08/31/2014 07/24/2016 Overview: The patient is a 50 yo male with a past medical history of HCV/ETOH Liver Cirrhosis c/b hepatopulmonary syndrome, hypersplenism, HE, Grade I EV, pulmonary sarcoidosis who presents with acute weight gain, abdominal distension, and SOB Fever and chills 08/31/2014 04/22/2017 Overview: Tmax 38.7 this AM; pt reports recent history of tooth extraction One time fever yesterday Received 2 time cefazolin after PFO closure. Plan: -UA, BCxx2 - NG till now -will hold off on abx for now and observe Retained dental root 08/15/2014 12/23/2021 Hepatopulmonary syndrome 03/12/2014 018 Overview: History of hepatopulmonary syndrome with ~45.2% shunt, pulmonary sarcoidosis requiring home O2 6-10 liters and mild pulmonary HTN Preop PaO2 ~55 on RA Profound hypoxia postoperatively requiring max vent support with high PEEP, heavy sedation/paralytics, flolan, nitric oxide (off since 10/26) Course c/b Right lung Pneumothorax, resp failure requiring trach 11/01 Decompensation 11/04 secondary to narcotic withdrawal +/- sepsis-->Drastically improved with fentanyl infusion, ATB. Updated echo 11/15 with EF 55%, normal RV Currently doing great, on continuous trach collar with passy etta valve, and diet -- Goal sats 85% -- Continue TC, PMV, OOB Bicytopenia 03/12/2014 04/22/2017 Overview: He has plat count of 20k and WCC of around 1000 His neutropenia is likely 2/2 to INF His thrombocytopenia is likley 2/2 to his cirrhosis Plan: Watch, transfuse plats if <10k or bleeding Pancytopenia 03/11/2014 03/12/2014 Hypoxemia 03/11/2014 10/15/2015 Overview: Due to underlying HPS Now on 100% Fio2 with last PaO2 60, Nitric oxide started 10/08, at 40 PPM. O2 sats maintaining in 80s CTS consulted for ECMO evaluation -- Given profound thrombocytopenia and grave condition ECMO not recommended -- Continue nitric oxide -- lung protective ventilation -- increased I:E ratio (at 2.4:1), paralyze with rocuronium if needed -- goal of O2 sats in 70s permissible COPD (chronic obstructive pulmonary disease) 03/12/2014 Coagulopathy 03/11/2014 04/22/2017 Syncope 01/03/2014 04/22/2017 Epididymitis 11/24/2013 04/22/2017 Testalgia 11/24/2013 04/22/2017 Thrombocytopenia 08/20/2009 04/22/2017 Overview: Platelets 96k today, received platelets 10/11 prior to liver biopsy. no obvious bleeding -- monitor CBC, coags -- transfuse as required -- monitor for bleeding -- transfuse plts prior to invasive procedures Hepatitis C 08/20/2009 11/03/2014 Cirrhosis 04/22/2017 Overview: Secondary to alcohol use and HCV complicated by ascites, PSE (on lactulose, rifaximin) and hepatopulmonary syndrome on home O2 s/p OLT on 10/03/15 Concern for rejection (humoral), now s/p thymo, IVIG, plasmapheresis 10/15 and 10/16 completed -hydrocortisone (switched from prednisone) now tapering down - MMF - FK documented as of this encounter (statuses as of 04/02/2022) [facility]10[facility] History of Past illness Narrative* Problem Noted Date Resolved Date Hilar adenopathy 07/09/2018 08/19/2018 Last Assessment & Plan: Assessment: CT A/P on Admission shows Significant subcarinal and bilateral hilar adenopathy on the lower images through the chest. Lymphoproliferative disease suspected He does have a hx of sarcoid But no recent CT chest/CXR to compare. CT chest shows SPLENOMEGALY AND NUMEROUS ENLARGED MEDIASTINAL AND BILATERAL HILAR LYMPH NODES, INCREASED IN SIZE SINCE 2016. THE DIFFERENTIAL DIAGNOSIS INCLUDES SARCOIDOSIS AND LYMPHOPROLIFERATIVE DISEASE. PLAN: -Transfer to [facility] for further evaluation by oncology per ID recommedation. Nausea & vomiting 07/09/2018 07/28/2018 Last Assessment & Plan: Assessment: Patient notes off and on nausea for one month. Also notes worsening control of his reflux symptoms. CTA/P shows significant subcarinal and bilateral hilar adenopathy and new subtle intrahepatic biliary dilatation and common duct dilatation . Obstructing lesion must be excluded, however.Splenic enlargement PLAN: -Increase protonix to 40mg bid -Zofran PRN for N/V -GI consult pending. Cellulitis 07/09/2018 07/13/2018 Abdominal wall cellulitis 12/01/20172021 Last Assessment & Plan: Assessment: Second Episode this year . Likely due to his constant picking of the skin of his abdomen. He is HDS, no leucocytosis,crp 2.6,ESR 2,lactate normal CTA/P shows no abscess nor cellulitis . PLAN: Continue ancef started in the ER. Continue bactrim as scheduled for prophylaxis - due to hx of liver transplant PRN morphine for pain. ID consult (because of his immunocompromised state - hx of liver transplant/ommunesuppresants) Wound care consult (re:open areas on his abdomen due to his scratching) F/up on blood Culture Ventral hernia without obstruction or gangrene 0 03/24/2017 04/22/2017 Lower abdominal pain 07/23/2016 04/22/2017 Opioid withdrawal 11/09/2015 04/22/2017 Overview: Thursday with opioid withdrawal after attempted discontinuation of fentanyl Resolution of symptoms after re-starting fentanyl -- Continue fentanyl patch with prn IVP fentanyl for breakthrough pain -- Drip stopped 3/ Respiratory failure, post-operative 10/22/2015 04/22/2017 Overview: Pt intubated for OLT on 10/03/15, remained intubated d/t severe hypoxia (see hepato pulmonary syndrome) 11/01 s/p tracheostomy Very weak and debilitated, profound ICU neuromyopathy Currently improved, toleratingTC, passy etta valve capped -- continue trach collar, PMV Acute pneumothorax 10/17/2015 04/22/2017 Prerenal azotemia 10/17/2015 10/24/2015 Overview: Bun/ Creat ratio now trending down. Hypernatremia resolved -- trend Renal indices -- lasix 20 mg q8 Acute pulmonary embolism 10/17/2015 017 Spontaneous pneumothorax 10/16/2015 017 Overview: Pneumothorax discovered on CT chest 10/15 in setting of high PEEP requirements s/p chest tube placements x2 Last CT removed 11/02 CXR with small persistent Rt. Apical pneumothorax- not appeciated on today's CXR --continue to follow daily CXRs Pneumonia, organism unspecified(486) 10/16/2015 11/02/2015 Overview: CT of chest 10/15 shows RLL consolidation suspicious for pneumonia. Completed course of vanco and meropenem continuing micfungin. Sputum culture from 10/09 shows normal respiratory erum. legionella urinary antigen negative --ID following Sepsis due to other etiology 10/15/201505/2017 Overview: Has completed empiric courses of antibiotics for persistent low grade fevers and acute decompensation No obvious source of infection identified per extensive ID workup Vanco d/c 10/25, Meropenem d/c 10/26 11/04 Acute decompensation (fevers 11/05) empiric pip-tazo, vanc, micafungin added--> off since 11/11 (cultures negative) CT chest/ab/pelvis (11/08) with no evidence of infective process -- continue to monitor off ATB Postoperative shock 10/09/2015 04/22/2017 Overview: Shock, hypotension, fevers with increasing leukocytosis in setting of liver transplant, hepatopulmonary syndrome, ARDS, hypoxia. Profound hypoxia requiring nitric oxide therapy. Required low dose levo for BP support, now off. Concern for sepsis, blood cultures negative to date, vanco and zosyn started empirically 10/08. Procalcitonin 1.06. Lacate 1.8 -- Follow cultures -- continue vanco and zosyn -- levo for BP support (avoid fluid boluses if hypotensive) Electrolyte and fluid disorder 10/07/2015 0 04/22/2017 Overview: Hypomagnesemia repleted, hyperphos -- monitor and replete lytes daily -- increase daily PO mag oxide to 800 mg TID New onset seizure 10/05/2015 11/22/2019 Overview: Seizure activity 10/05, BEM supported the dx of cortical dysfunction in the left hemisphere with potential epileptogenicity in the left fronto-central region CT head negative for acute process, neurology consulted, loaded with Keppra Currently alert, follows commands -- weaned to Keppra 500mg bid -- neurology recommending follow up with epilepsy as outpatient ARDS (adult respiratory distress syndrome) 10/0504/22/2017 Overview: Hx of hepatopulmonary syndrome, pulmonary sarcoidosis requiring home O2 6-10 liters Pulmonary HTN with ~45% shunt. Pre-op PaO2 ~55 on RA CXR now with bilateral fluffy infiltrates / ARDS w/ pulmonary edema Desaturates with movement, turning, suctioning. Space = 60% today, with compliance ~45 -- maintain aggressive vent support (100% FiO2, wean PEEP is able as higher PEEP to increase shunt) -- lung protective strategies - Vt 6ml/kg ideal body weight (~350ml) -- trach on hold while unstable -- lasix TID -- Continue Nitric oxide -- increased I:E ratio -- avoid fluid boluses for hypotension - use pressors if needed -- sputum sent for culture Postoperative anemia due to acute blood loss 04/22/2017 Overview: S/P liver transplant with EBL 17 L c/b thrombocytopenia, coagulopahty and OP bleeding requiring intra-op nasal and pharyngeal packing Last transfused 10/08 2U PRBCs. 10/10: ENT removed nasal merocel. Clots in both nasopharyxes. No reinsertion of nasal tubes. -- monitor CBC and coags -- transfuse as required Agitation requiring sedation protocol 10/05/2015 04/22/2017 Overview: Required prolonged neuromuscular blockade with deep sedation secondary to increased WOB, breath stacking and hypoxia After discontinuation, he has had difficultly controlling agitation, likely opioid withdrawl. Had required precedex, fentanyl patch, prn haldol, seroquel Currently on seroquel, fentanyl patch Has been awake and alert, very cooperative -- continue on decreased TID seroquel dosing of 25mg TID and 150 mg qHS -- continue with fentanyl patch Acute post-operative pain 10/05/20152016 Overview: Was on prolonged fentanyl infusion d/t vent asynchrony, pain from liver tx Now transitioned to patch, infusion stopped 11/13 -- continue fentanyl patch (100mcg) Renal insufficiency 10/05/2015 10/08/2015 Overview: Secondary to hypotension Baseline Scr 0.66, now down to 0.83 Making good UO -- monitor renal indices Stress hyperglycemia 10/05/2015 04/22/2017 Overview: -- Adequate glycemic control with SSI Moderate protein-calorie malnutrition 10/05/2015 04/22/2017 Overview: Tolerating goal tube feeds Osmolite 1.2 @ 70 Prealbumin 26, transferrin 185 -- continue TF with fiber and beneprotien and full liquid diet -- nutrition following Abdominal distension 09/12/2015 04/22/2017 Overview: - concerning given weight gain of 30 lb from 09/04 - CT abdomen on last admission showed tissue edema> ascites, concern for third spacing in the abdominal wall tissue - no evidence of active infection, however, currently pancytopenia - was taking Lasix 20 mg PO every other day and spironolactone 50 mg PO daily - Liver vascular U/S demonstrates patent vasculature Plan - diuresis with Lasix 40 mg PO BID and spironolactone 100 mg PO daily - paracentesis as needed for respiratory function Liver transplant candidate 08/17/201504/22 Pain disorder with psychological factors 015 12/23/2021 Hyperammonemia 07/20/2015 04/22/2017 SUMMARY 06/14/2015 09/12/2015 Overview: Mr. 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 SOB (shortness of breath) 06/14/20152016 Overview: Started after dry run Possibly irritated by catheter? Systolic murmur also heard Chest x-ray and CT PE negative Currently at baseline New valvular lesion vs clot? -Echocardiogram -Doppler study -Observe for now Hepatic cirrhosis 06/14/2015 04/22/2017 Overview: #Cirrhosis -Continue lactulose, rifaximin -Continue aldactone Infection of other external stoma of urinary tra ct 05/17/2015 04/22/2017 UTI (lower urinary tract infection) 04/08/2015 04/22/2017 Overview: Was complaining of dysuria. UA positive with leukoesterase and Was started of ceftriaxone at OSH. Received 2 dosages here yesterday and one today. Will finish treatment for complicated UTI at home with cipro 500BID Hepatic encephalopathy 04/08/2015 7 Overview: On lactulose zinc Rifaximin Fever, low grade 11/03/2014 04/22/2017 Overview: Low grade fever on presentation UA clean Plan - Blood cx ngtd - afebrile since SUMMARY 08/31/2014 07/24/2016 Overview: The patient is a 50 yo male with a past medical history of HCV/ETOH Liver Cirrhosis c/b hepatopulmonary syndrome, hypersplenism, HE, Grade I EV, pulmonary sarcoidosis who presents with acute weight gain, abdominal distension, and SOB Fever and chills 08/31/2014 04/22/2017 Overview: Tmax 38.7 this AM; pt reports recent history of tooth extraction One time fever yesterday Received 2 time cefazolin after PFO closure. Plan: -UA, BCxx2 - NG till now -will hold off on abx for now and observe Retained dental root 08/15/2014 12/23/2021 Hepatopulmonary syndrome 03/12/2014 018 Overview: History of hepatopulmonary syndrome with ~45.2% shunt, pulmonary sarcoidosis requiring home O2 6-10 liters and mild pulmonary HTN Preop PaO2 ~55 on RA Profound hypoxia postoperatively requiring max vent support with high PEEP, heavy sedation/paralytics, flolan, nitric oxide (off since 10/26) Course c/b Right lung Pneumothorax, resp failure requiring trach 11/01 Decompensation 11/04 secondary to narcotic withdrawal +/- sepsis-->Drastically improved with fentanyl infusion, ATB. Updated echo 11/15 with EF 55%, normal RV Currently doing great, on continuous trach collar with passy etta valve, and diet -- Goal sats 85% -- Continue TC, PMV, OOB Bicytopenia 03/12/2014 04/22/2017 Overview: He has plat count of 20k and WCC of around 1000 His neutropenia is likely 2/2 to INF His thrombocytopenia is likley 2/2 to his cirrhosis Plan: Watch, transfuse plats if <10k or bleeding Pancytopenia 03/11/2014 03/12/2014 Hypoxemia 03/11/2014 10/15/2015 Overview: Due to underlying HPS Now on 100% Fio2 with last PaO2 60, Nitric oxide started 10/08, at 40 PPM. O2 sats maintaining in 80s CTS consulted for ECMO evaluation -- Given profound thrombocytopenia and grave condition ECMO not recommended -- Continue nitric oxide -- lung protective ventilation -- increased I:E ratio (at 2.4:1), paralyze with rocuronium if needed -- goal of O2 sats in 70s permissible COPD (chronic obstructive pulmonary disease) 03/12/2014 Coagulopathy 03/11/2014 04/22/2017 Syncope 01/03/2014 04/22/2017 Epididymitis 11/24/2013 04/22/2017 Testalgia 11/24/2013 04/22/2017 Thrombocytopenia 08/20/2009 04/22/2017 Overview: Platelets 96k today, received platelets 10/11 prior to liver biopsy. no obvious bleeding -- monitor CBC, coags -- transfuse as required -- monitor for bleeding -- transfuse plts prior to invasive procedures Hepatitis C 08/20/2009 11/03/2014 Cirrhosis 04/22/2017 Overview: Secondary to alcohol use and HCV complicated by ascites, PSE (on lactulose, rifaximin) and hepatopulmonary syndrome on home O2 s/p OLT on 10/03/15 Concern for rejection (humoral), now s/p thymo, IVIG, plasmapheresis 10/15 and 10/16 completed -hydrocortisone (switched from prednisone) now tapering down - MMF - FK documented as of this encounter (statuses as of 04/23/2022) [facility]10[facility]2018 History of Past illness Narrative* Problem Noted Date Resolved Date Hilar adenopathy 07/09/2018 08/19/2018 Last Assessment & Plan: Assessment: CT A/P on Admission shows Significant subcarinal and bilateral hilar adenopathy on the lower images through the chest. Lymphoproliferative disease suspected He does have a hx of sarcoid But no recent CT chest/CXR to compare. CT chest shows SPLENOMEGALY AND NUMEROUS ENLARGED MEDIASTINAL AND BILATERAL HILAR LYMPH NODES, INCREASED IN SIZE SINCE 2016. THE DIFFERENTIAL DIAGNOSIS INCLUDES SARCOIDOSIS AND LYMPHOPROLIFERATIVE DISEASE. PLAN: -Transfer to [facility] for further evaluation by oncology per ID recommedation. Nausea & vomiting 07/09/2018 07/28/2018 Last Assessment & Plan: Assessment: Patient notes off and on nausea for one month. Also notes worsening control of his reflux symptoms. CTA/P shows significant subcarinal and bilateral hilar adenopathy and new subtle intrahepatic biliary dilatation and common duct dilatation . Obstructing lesion must be excluded, however.Splenic enlargement PLAN: -Increase protonix to 40mg bid -Zofran PRN for N/V -GI consult pending. Cellulitis 07/09/2018 07/13/2018 Abdominal wall cellulitis 12/01/20172021 Last Assessment & Plan: Assessment: Second Episode this year . Likely due to his constant picking of the skin of his abdomen. He is HDS, no leucocytosis,crp 2.6,ESR 2,lactate normal CTA/P shows no abscess nor cellulitis . PLAN: Continue ancef started in the ER. Continue bactrim as scheduled for prophylaxis - due to hx of liver transplant PRN morphine for pain. ID consult (because of his immunocompromised state - hx of liver transplant/ommunesuppresants) Wound care consult (re:open areas on his abdomen due to his scratching) F/up on blood Culture Ventral hernia without obstruction or gangrene 0 03/24/2017 04/22/2017 Lower abdominal pain 07/23/2016 04/22/2017 Opioid withdrawal 11/09/2015 04/22/2017 Overview: Thursday with opioid withdrawal after attempted discontinuation of fentanyl Resolution of symptoms after re-starting fentanyl -- Continue fentanyl patch with prn IVP fentanyl for breakthrough pain -- Drip stopped 3/2 Respiratory failure, post-operative 10/22/2015 04/22/2017 Overview: Pt intubated for OLT on 10/03/15, remained intubated d/t severe hypoxia (see hepato pulmonary syndrome) 11/01 s/p tracheostomy Very weak and debilitated, profound ICU neuromyopathy Currently improved, toleratingTC, passy etta valve capped -- continue trach collar, PMV Acute pneumothorax 10/17/2015 04/22/2017 Prerenal azotemia 10/17/2015 10/24/2015 Overview: Bun/ Creat ratio now trending down. Hypernatremia resolved -- trend Renal indices -- lasix 20 mg q8 Acute pulmonary embolism 10/17/2015 017 Spontaneous pneumothorax 10/16/2015 017 Overview: Pneumothorax discovered on CT chest 10/15 in setting of high PEEP requirements s/p chest tube placements x2 Last CT removed 11/02 CXR with small persistent Rt. Apical pneumothorax- not appeciated on today's CXR --continue to follow daily CXRs Pneumonia, organism unspecified([id number]) 10/16/2015 11/02/2015 Overview: CT of chest 10/15 shows RLL consolidation suspicious for pneumonia. Completed course of vanco and meropenem continuing micfungin. Sputum culture from 10/09 shows normal respiratory erum. legionella urinary antigen negative --ID following Sepsis due to other etiology 10/15/201505/2017 Overview: Has completed empiric courses of antibiotics for persistent low grade fevers and acute decompensation No obvious source of infection identified per extensive ID workup Vanco d/c 10/25, Meropenem d/c 10/26 11/04 Acute decompensation (fevers 11/05) empiric pip-tazo, vanc, micafungin added--> off since 11/11 (cultures negative) CT chest/ab/pelvis (11/08) with no evidence of infective process -- continue to monitor off ATB Postoperative shock 10/09/2015 04/22/2017 Overview: Shock, hypotension, fevers with increasing leukocytosis in setting of liver transplant, hepatopulmonary syndrome, ARDS, hypoxia. Profound hypoxia requiring nitric oxide therapy. Required low dose levo for BP support, now off. Concern for sepsis, blood cultures negative to date, vanco and zosyn started empirically 10/08. Procalcitonin 1.06. Lacate 1.8 -- Follow cultures -- continue vanco and zosyn -- levo for BP support (avoid fluid boluses if hypotensive) Electrolyte and fluid disorder 10/07/2015 0 04/22/2017 Overview: Hypomagnesemia repleted, hyperphos -- monitor and replete lytes daily -- increase daily PO mag oxide to 800 mg TID New onset seizure 10/05/2015 11/22/2019 Overview: Seizure activity 10/05, BEM supported the dx of cortical dysfunction in the left hemisphere with potential epileptogenicity in the left fronto-central region CT head negative for acute process, neurology consulted, loaded with Keppra Currently alert, follows commands -- weaned to Keppra 500mg bid -- neurology recommending follow up with epilepsy as outpatient ARDS (adult respiratory distress syndrome) 10/0504/22/2017 Overview: Hx of hepatopulmonary syndrome, pulmonary sarcoidosis requiring home O2 6-10 liters Pulmonary HTN with ~45% shunt. Pre-op PaO2 ~55 on RA CXR now with bilateral fluffy infiltrates / ARDS w/ pulmonary edema Desaturates with movement, turning, suctioning. Space = 60% today, with compliance ~45 -- maintain aggressive vent support (100% FiO2, wean PEEP is able as higher PEEP to increase shunt) -- lung protective strategies - Vt 6ml/kg ideal body weight (~350ml) -- trach on hold while unstable -- lasix TID -- Continue Nitric oxide -- increased I:E ratio -- avoid fluid boluses for hypotension - use pressors if needed -- sputum sent for culture Postoperative anemia due to acute blood loss 04/22/2017 Overview: S/P liver transplant with EBL 17 L c/b thrombocytopenia, coagulopahty and OP bleeding requiring intra-op nasal and pharyngeal packing Last transfused 10/08 2U PRBCs. 10/10: ENT removed nasal merocel. Clots in both nasopharyxes. No reinsertion of nasal tubes. -- monitor CBC and coags -- transfuse as required Agitation requiring sedation protocol 10/05/2015 04/22/2017 Overview: Required prolonged neuromuscular blockade with deep sedation secondary to increased WOB, breath stacking and hypoxia After discontinuation, he has had difficultly controlling agitation, likely opioid withdrawl. Had required precedex, fentanyl patch, prn haldol, seroquel Currently on seroquel, fentanyl patch Has been awake and alert, very cooperative -- continue on decreased TID seroquel dosing of 25mg TID and 150 mg qHS -- continue with fentanyl patch Acute post-operative pain 10/05/20152016 Overview: Was on prolonged fentanyl infusion d/t vent asynchrony, pain from liver tx Now transitioned to patch, infusion stopped 11/13 -- continue fentanyl patch (100mcg) Renal insufficiency 10/05/2015 10/08/2015 Overview: Secondary to hypotension Baseline Scr 0.66, now down to 0.83 Making good UO -- monitor renal indices Stress hyperglycemia 10/05/2015 04/22/2017 Overview: -- Adequate glycemic control with SSI Moderate protein-calorie malnutrition 10/05/2015 04/22/2017 Overview: Tolerating goal tube feeds Osmolite 1.2 @ 70 Prealbumin 26, transferrin 185 -- continue TF with fiber and beneprotien and full liquid diet -- nutrition following Abdominal distension 09/12/2015 04/22/2017 Overview: - concerning given weight gain of 30 lb from 09/04 - CT abdomen on last admission showed tissue edema> ascites, concern for third spacing in the abdominal wall tissue - no evidence of active infection, however, currently pancytopenia - was taking Lasix 20 mg PO every other day and spironolactone 50 mg PO daily - Liver vascular U/S demonstrates patent vasculature Plan - diuresis with Lasix 40 mg PO BID and spironolactone 100 mg PO daily - paracentesis as needed for respiratory function Liver transplant candidate 08/17/201504/22 Pain disorder with psychological factors 015 12/23/2021 Hyperammonemia 07/20/2015 04/22/2017 SUMMARY 06/14/2015 09/12/2015 Overview: Mr. 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 SOB (shortness of breath) 06/14/20152016 Overview: Started after dry run Possibly irritated by catheter? Systolic murmur also heard Chest x-ray and CT PE negative Currently at baseline New valvular lesion vs clot? -Echocardiogram -Doppler study -Observe for now Hepatic cirrhosis 06/14/2015 04/22/2017 Overview: #Cirrhosis -Continue lactulose, rifaximin -Continue aldactone Infection of other external stoma of urinary tra ct 05/17/2015 04/22/2017 UTI (lower urinary tract infection) 04/08/2015 04/22/2017 Overview: Was complaining of dysuria. UA positive with leukoesterase and Was started of ceftriaxone at OSH. Received 2 dosages here yesterday and one today. Will finish treatment for complicated UTI at home with cipro [id number] Hepatic encephalopathy 04/08/2015 7 Overview: On lactulose zinc Rifaximin Fever, low grade 11/03/2014 04/22/2017 Overview: Low grade fever on presentation UA clean Plan - Blood cx ngtd - afebrile since SUMMARY 08/31/2014 07/24/2016 Overview: The patient is a 50 yo male with a past medical history of HCV/ETOH Liver Cirrhosis c/b hepatopulmonary syndrome, hypersplenism, HE, Grade I EV, pulmonary sarcoidosis who presents with acute weight gain, abdominal distension, and SOB Fever and chills 08/31/2014 04/22/2017 Overview: Tmax 38.7 this AM; pt reports recent history of tooth extraction One time fever yesterday Received 2 time cefazolin after PFO closure. Plan: -UA, BCxx2 - NG till now -will hold off on abx for now and observe Retained dental root 08/15/2014 12/23/2021 Hepatopulmonary syndrome 03/12/2014 018 Overview: History of hepatopulmonary syndrome with ~45.2% shunt, pulmonary sarcoidosis requiring home O2 6-10 liters and mild pulmonary HTN Preop PaO2 ~55 on RA Profound hypoxia postoperatively requiring max vent support with high PEEP, heavy sedation/paralytics, flolan, nitric oxide (off since 10/26) Course c/b Right lung Pneumothorax, resp failure requiring trach 11/01 Decompensation 11/04 secondary to narcotic withdrawal +/- sepsis-->Drastically improved with fentanyl infusion, ATB. Updated echo 11/15 with EF 55%, normal RV Currently doing great, on continuous trach collar with passy etta valve, and diet -- Goal sats 85% -- Continue TC, PMV, OOB Bicytopenia 03/12/2014 04/22/2017 Overview: He has plat count of 20k and WCC of around 1000 His neutropenia is likely 2/2 to INF His thrombocytopenia is likley 2/2 to his cirrhosis Plan: Watch, transfuse plats if <10k or bleeding Pancytopenia 03/11/2014 03/12/2014 Hypoxemia 03/11/2014 10/15/2015 Overview: Due to underlying HPS Now on 100% Fio2 with last PaO2 60, Nitric oxide started 10/08, at 40 PPM. O2 sats maintaining in 80s CTS consulted for ECMO evaluation -- Given profound thrombocytopenia and grave condition ECMO not recommended -- Continue nitric oxide -- lung protective ventilation -- increased I:E ratio (at 2.4:1), paralyze with rocuronium if needed -- goal of O2 sats in 70s permissible COPD (chronic obstructive pulmonary disease) 03/12/2014 Coagulopathy 03/11/2014 04/22/2017 Syncope 01/03/2014 04/22/2017 Epididymitis 11/24/2013 04/22/2017 Testalgia 11/24/2013 04/22/2017 Thrombocytopenia 08/20/2009 04/22/2017 Overview: Platelets 96k today, received platelets 10/11 prior to liver biopsy. no obvious bleeding -- monitor CBC, coags -- transfuse as required -- monitor for bleeding -- transfuse plts prior to invasive procedures Hepatitis C 08/20/2009 11/03/2014 Cirrhosis 04/22/2017 Overview: Secondary to alcohol use and HCV complicated by ascites, PSE (on lactulose, rifaximin) and hepatopulmonary syndrome on home O2 s/p OLT on 10/03/15 Concern for rejection (humoral), now s/p thymo, IVIG, plasmapheresis 10/15 and 2/2 completed -hydrocortisone (switched from prednisone) now tapering down - MMF - FK documented as of this encounter (statuses as of 04/28/2022) [facility] History of Past illness Narrative* Problem Noted Date Resolved Date Hilar adenopathy 07/09/2018 08/19/2018 Last Assessment & Plan: Assessment: CT A/P on Admission shows Significant subcarinal and bilateral hilar adenopathy on the lower images through the chest. Lymphoproliferative disease suspected He does have a hx of sarcoid But no recent CT chest/CXR to compare. CT chest shows SPLENOMEGALY AND NUMEROUS ENLARGED MEDIASTINAL AND BILATERAL HILAR LYMPH NODES, INCREASED IN SIZE SINCE 2016. THE DIFFERENTIAL DIAGNOSIS INCLUDES SARCOIDOSIS AND LYMPHOPROLIFERATIVE DISEASE. PLAN: -Transfer to [facility] for further evaluation by oncology per ID recommedation. Nausea & vomiting 07/09/2018 07/28/2018 Last Assessment & Plan: Assessment: Patient notes off and on nausea for one month. Also notes worsening control of his reflux symptoms. CTA/P shows significant subcarinal and bilateral hilar adenopathy and new subtle intrahepatic biliary dilatation and common duct dilatation . Obstructing lesion must be excluded, however.Splenic enlargement PLAN: -Increase protonix to 40mg bid -Zofran PRN for N/V -GI consult pending. Cellulitis 07/09/2018 07/13/2018 Abdominal wall cellulitis 12/01/20172021 Last Assessment & Plan: Assessment: Second Episode this year . Likely due to his constant picking of the skin of his abdomen. He is HDS, no leucocytosis,crp 2.6,ESR 2,lactate normal CTA/P shows no abscess nor cellulitis . PLAN: Continue ancef started in the ER. Continue bactrim as scheduled for prophylaxis - due to hx of liver transplant PRN morphine for pain. ID consult (because of his immunocompromised state - hx of liver transplant/ommunesuppresants) Wound care consult (re:open areas on his abdomen due to his scratching) F/up on blood Culture Ventral hernia without obstruction or gangrene 0 03/24/2017 04/22/2017 Lower abdominal pain 07/23/2016 04/22/2017 Opioid withdrawal 11/09/2015 04/22/2017 Overview: Thursday with opioid withdrawal after attempted discontinuation of fentanyl Resolution of symptoms after re-starting fentanyl -- Continue fentanyl patch with prn IVP fentanyl for breakthrough pain -- Drip stopped 3/2 Respiratory failure, post-operative 10/22/2015 04/22/2017 Overview: Pt intubated for OLT on 10/03/15, remained intubated d/t severe hypoxia (see hepato pulmonary syndrome) 11/01 s/p tracheostomy Very weak and debilitated, profound ICU neuromyopathy Currently improved, toleratingTC, passy etta valve capped -- continue trach collar, PMV Acute pneumothorax 10/17/2015 04/22/2017 Prerenal azotemia 10/17/2015 10/24/2015 Overview: Bun/ Creat ratio now trending down. Hypernatremia resolved -- trend Renal indices -- lasix 20 mg q8 Acute pulmonary embolism 10/17/2015 017 Spontaneous pneumothorax 10/16/2015 017 Overview: Pneumothorax discovered on CT chest 10/15 in setting of high PEEP requirements s/p chest tube placements x2 Last CT removed 11/02 CXR with small persistent Rt. Apical pneumothorax- not appeciated on today's CXR --continue to follow daily CXRs Pneumonia, organism unspecified(486) 10/16/2015 11/02/2015 Overview: CT of chest 10/15 shows RLL consolidation suspicious for pneumonia. Completed course of vanco and meropenem continuing micfungin. Sputum culture from 10/09 shows normal respiratory erum. legionella urinary antigen negative --ID following Sepsis due to other etiology 10/15/201505/2017 Overview: Has completed empiric courses of antibiotics for persistent low grade fevers and acute decompensation No obvious source of infection identified per extensive ID workup Vanco d/c 10/25, Meropenem d/c 10/26 11/04 Acute decompensation (fevers 11/05) empiric pip-tazo, vanc, micafungin added--> off since 11/11 (cultures negative) CT chest/ab/pelvis (11/08) with no evidence of infective process -- continue to monitor off ATB Postoperative shock 10/09/2015 04/22/2017 Overview: Shock, hypotension, fevers with increasing leukocytosis in setting of liver transplant, hepatopulmonary syndrome, ARDS, hypoxia. Profound hypoxia requiring nitric oxide therapy. Required low dose levo for BP support, now off. Concern for sepsis, blood cultures negative to date, vanco and zosyn started empirically 10/08. Procalcitonin 1.06. Lacate 1.8 -- Follow cultures -- continue vanco and zosyn -- levo for BP support (avoid fluid boluses if hypotensive) Electrolyte and fluid disorder 10/07/2015 0 04/22/2017 Overview: Hypomagnesemia repleted, hyperphos -- monitor and replete lytes daily -- increase daily PO mag oxide to 800 mg TID New onset seizure 10/05/2015 11/22/2019 Overview: Seizure activity 10/05, BEM supported the dx of cortical dysfunction in the left hemisphere with potential epileptogenicity in the left fronto-central region CT head negative for acute process, neurology consulted, loaded with Keppra Currently alert, follows commands -- weaned to Keppra 500mg bid -- neurology recommending follow up with epilepsy as outpatient ARDS (adult respiratory distress syndrome) 10/0504/22/2017 Overview: Hx of hepatopulmonary syndrome, pulmonary sarcoidosis requiring home O2 6-10 liters Pulmonary HTN with ~45% shunt. Pre-op PaO2 ~55 on RA CXR now with bilateral fluffy infiltrates / ARDS w/ pulmonary edema Desaturates with movement, turning, suctioning. Space = 60% today, with compliance ~45 -- maintain aggressive vent support (100% FiO2, wean PEEP is able as higher PEEP to increase shunt) -- lung protective strategies - Vt 6ml/kg ideal body weight (~350ml) -- trach on hold while unstable -- lasix TID -- Continue Nitric oxide -- increased I:E ratio -- avoid fluid boluses for hypotension - use pressors if needed -- sputum sent for culture Postoperative anemia due to acute blood loss 04/22/2017 Overview: S/P liver transplant with EBL 17 L c/b thrombocytopenia, coagulopahty and OP bleeding requiring intra-op nasal and pharyngeal packing Last transfused 10/08 2U PRBCs. 10/10: ENT removed nasal merocel. Clots in both nasopharyxes. No reinsertion of nasal tubes. -- monitor CBC and coags -- transfuse as required Agitation requiring sedation protocol 10/05/2015 04/22/2017 Overview: Required prolonged neuromuscular blockade with deep sedation secondary to increased WOB, breath stacking and hypoxia After discontinuation, he has had difficultly controlling agitation, likely opioid withdrawl. Had required precedex, fentanyl patch, prn haldol, seroquel Currently on seroquel, fentanyl patch Has been awake and alert, very cooperative -- continue on decreased TID seroquel dosing of 25mg TID and 150 mg qHS -- continue with fentanyl patch Acute post-operative pain 10/05/20152016 Overview: Was on prolonged fentanyl infusion d/t vent asynchrony, pain from liver tx Now transitioned to patch, infusion stopped 11/13 -- continue fentanyl patch (100mcg) Renal insufficiency 10/05/2015 10/08/2015 Overview: Secondary to hypotension Baseline Scr 0.66, now down to 0.83 Making good UO -- monitor renal indices Stress hyperglycemia 10/05/2015 04/22/2017 Overview: -- Adequate glycemic control with SSI Moderate protein-calorie malnutrition 10/05/2015 04/22/2017 Overview: Tolerating goal tube feeds Osmolite 1.2 @ 70 Prealbumin 26, transferrin 185 -- continue TF with fiber and beneprotien and full liquid diet -- nutrition following Abdominal distension 09/12/2015 04/22/2017 Overview: - concerning given weight gain of 30 lb from 09/04 - CT abdomen on last admission showed tissue edema> ascites, concern for third spacing in the abdominal wall tissue - no evidence of active infection, however, currently pancytopenia - was taking Lasix 20 mg PO every other day and spironolactone 50 mg PO daily - Liver vascular U/S demonstrates patent vasculature Plan - diuresis with Lasix 40 mg PO BID and spironolactone 100 mg PO daily - paracentesis as needed for respiratory function Liver transplant candidate 08/17/201504/22 Pain disorder with psychological factors 015 12/23/2021 Hyperammonemia 07/20/2015 04/22/2017 SUMMARY 06/14/2015 09/12/2015 Overview: Mr. 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 SOB (shortness of breath) 06/14/20152016 Overview: Started after dry run Possibly irritated by catheter? Systolic murmur also heard Chest x-ray and CT PE negative Currently at baseline New valvular lesion vs clot? -Echocardiogram -Doppler study -Observe for now Hepatic cirrhosis 06/14/2015 04/22/2017 Overview: #Cirrhosis -Continue lactulose, rifaximin -Continue aldactone Infection of other external stoma of urinary tra ct 05/17/2015 04/22/2017 UTI (lower urinary tract infection) 04/08/2015 04/22/2017 Overview: Was complaining of dysuria. UA positive with leukoesterase and Was started of ceftriaxone at OSH. Received 2 dosages here yesterday and one today. Will finish treatment for complicated UTI at home with cipro 500BID Hepatic encephalopathy 04/08/2015 7 Overview: On lactulose zinc Rifaximin Fever, low grade 11/03/2014 04/22/2017 Overview: Low grade fever on presentation UA clean Plan - Blood cx ngtd - afebrile since SUMMARY 08/31/2014 07/24/2016 Overview: The patient is a 50 yo male with a past medical history of HCV/ETOH Liver Cirrhosis c/b hepatopulmonary syndrome, hypersplenism, HE, Grade I EV, pulmonary sarcoidosis who presents with acute weight gain, abdominal distension, and SOB Fever and chills 08/31/2014 04/22/2017 Overview: Tmax 38.7 this AM; pt reports recent history of tooth extraction One time fever yesterday Received 2 time cefazolin after PFO closure. Plan: -UA, BCxx2 - NG till now -will hold off on abx for now and observe Retained dental root 08/15/2014 12/23/2021 Hepatopulmonary syndrome 03/12/2014 018 Overview: History of hepatopulmonary syndrome with ~45.2% shunt, pulmonary sarcoidosis requiring home O2 6-10 liters and mild pulmonary HTN Preop PaO2 ~55 on RA Profound hypoxia postoperatively requiring max vent support with high PEEP, heavy sedation/paralytics, flolan, nitric oxide (off since 10/26) Course c/b Right lung Pneumothorax, resp failure requiring trach 11/01 Decompensation 11/04 secondary to narcotic withdrawal +/- sepsis-->Drastically improved with fentanyl infusion, ATB. Updated echo 11/15 with EF 55%, normal RV Currently doing great, on continuous trach collar with passy etta valve, and diet -- Goal sats 85% -- Continue TC, PMV, OOB Bicytopenia 03/12/2014 04/22/2017 Overview: He has plat count of 20k and WCC of around 1000 His neutropenia is likely 2/2 to INF His thrombocytopenia is likley 2/2 to his cirrhosis Plan: Watch, transfuse plats if <10k or bleeding Pancytopenia 03/11/2014 03/12/2014 Hypoxemia 03/11/2014 10/15/2015 Overview: Due to underlying HPS Now on 100% Fio2 with last PaO2 60, Nitric oxide started 10/08, at 40 PPM. O2 sats maintaining in 80s CTS consulted for ECMO evaluation -- Given profound thrombocytopenia and grave condition ECMO not recommended -- Continue nitric oxide -- lung protective ventilation -- increased I:E ratio (at 2.4:1), paralyze with rocuronium if needed -- goal of O2 sats in 70s permissible COPD (chronic obstructive pulmonary disease) 03/12/2014 Coagulopathy 03/11/2014 04/22/2017 Syncope 01/03/2014 04/22/2017 Epididymitis 11/24/2013 04/22/2017 Testalgia 11/24/2013 04/22/2017 Thrombocytopenia 08/20/2009 04/22/2017 Overview: Platelets 96k today, received platelets 10/11 prior to liver biopsy. no obvious bleeding -- monitor CBC, coags -- transfuse as required -- monitor for bleeding -- transfuse plts prior to invasive procedures Hepatitis C 08/20/2009 11/03/2014 Cirrhosis 04/22/2017 Overview: Secondary to alcohol use and HCV complicated by ascites, PSE (on lactulose, rifaximin) and hepatopulmonary syndrome on home O2 s/p OLT on 10/03/15 Concern for rejection (humoral), now s/p thymo, IVIG, plasmapheresis 10/15 and 10/16 completed -hydrocortisone (switched from prednisone) now tapering down - MMF - FK documented as of this encounter (statuses as of 05/05/2022) [facility]10[facility]2018 History of Past illness Narrative* Problem Noted Date Resolved Date Hilar adenopathy 07/09/2018 08/19/2018 Last Assessment & Plan: Assessment: CT A/P on Admission shows Significant subcarinal and bilateral hilar adenopathy on the lower images through the chest. Lymphoproliferative disease suspected He does have a hx of sarcoid But no recent CT chest/CXR to compare. CT chest shows SPLENOMEGALY AND NUMEROUS ENLARGED MEDIASTINAL AND BILATERAL HILAR LYMPH NODES, INCREASED IN SIZE SINCE 2016. THE DIFFERENTIAL DIAGNOSIS INCLUDES SARCOIDOSIS AND LYMPHOPROLIFERATIVE DISEASE. PLAN: -Transfer to [facility] for further evaluation by oncology per ID recommedation. Nausea & vomiting 07/09/2018 07/28/2018 Last Assessment & Plan: Assessment: Patient notes off and on nausea for one month. Also notes worsening control of his reflux symptoms. CTA/P shows significant subcarinal and bilateral hilar adenopathy and new subtle intrahepatic biliary dilatation and common duct dilatation . Obstructing lesion must be excluded, however.Splenic enlargement PLAN: -Increase protonix to 40mg bid -Zofran PRN for N/V -GI consult pending. Cellulitis 07/09/2018 07/13/2018 Abdominal wall cellulitis 12/01/20172021 Last Assessment & Plan: Assessment: Second Episode this year . Likely due to his constant picking of the skin of his abdomen. He is HDS, no leucocytosis,crp 2.6,ESR 2,lactate normal CTA/P shows no abscess nor cellulitis . PLAN: Continue ancef started in the ER. Continue bactrim as scheduled for prophylaxis - due to hx of liver transplant PRN morphine for pain. ID consult (because of his immunocompromised state - hx of liver transplant/ommunesuppresants) Wound care consult (re:open areas on his abdomen due to his scratching) F/up on blood Culture Ventral hernia without obstruction or gangrene 0 03/24/2017 04/22/2017 Lower abdominal pain 07/23/2016 04/22/2017 Opioid withdrawal 11/09/2015 04/22/2017 Overview: Thursday with opioid withdrawal after attempted discontinuation of fentanyl Resolution of symptoms after re-starting fentanyl -- Continue fentanyl patch with prn IVP fentanyl for breakthrough pain -- Drip stopped 3/2 Respiratory failure, post-operative 10/22/2015 04/22/2017 Overview: Pt intubated for OLT on 10/03/15, remained intubated d/t severe hypoxia (see hepato pulmonary syndrome) 11/01 s/p tracheostomy Very weak and debilitated, profound ICU neuromyopathy Currently improved, toleratingTC, passy etta valve capped -- continue trach collar, PMV Acute pneumothorax 10/17/2015 04/22/2017 Prerenal azotemia 10/17/2015 10/24/2015 Overview: Bun/ Creat ratio now trending down. Hypernatremia resolved -- trend Renal indices -- lasix 20 mg q8 Acute pulmonary embolism 10/17/2015 017 Spontaneous pneumothorax 10/16/2015 017 Overview: Pneumothorax discovered on CT chest 10/15 in setting of high PEEP requirements s/p chest tube placements x2 Last CT removed 11/02 CXR with small persistent Rt. Apical pneumothorax- not appeciated on today's CXR --continue to follow daily CXRs Pneumonia, organism unspecified([id number]) 10/16/2015 11/02/2015 Overview: CT of chest 10/15 shows RLL consolidation suspicious for pneumonia. Completed course of vanco and meropenem continuing micfungin. Sputum culture from 10/09 shows normal respiratory erum. legionella urinary antigen negative --ID following Sepsis due to other etiology 10/15/201505/2017 Overview: Has completed empiric courses of antibiotics for persistent low grade fevers and acute decompensation No obvious source of infection identified per extensive ID workup Vanco d/c 10/25, Meropenem d/c 10/26 11/04 Acute decompensation (fevers 11/05) empiric pip-tazo, vanc, micafungin added--> off since 11/11 (cultures negative) CT chest/ab/pelvis (11/08) with no evidence of infective process -- continue to monitor off ATB Postoperative shock 10/09/2015 04/22/2017 Overview: Shock, hypotension, fevers with increasing leukocytosis in setting of liver transplant, hepatopulmonary syndrome, ARDS, hypoxia. Profound hypoxia requiring nitric oxide therapy. Required low dose levo for BP support, now off. Concern for sepsis, blood cultures negative to date, vanco and zosyn started empirically 10/08. Procalcitonin 1.06. Lacate 1.8 -- Follow cultures -- continue vanco and zosyn -- levo for BP support (avoid fluid boluses if hypotensive) Electrolyte and fluid disorder 10/07/2015 0 04/22/2017 Overview: Hypomagnesemia repleted, hyperphos -- monitor and replete lytes daily -- increase daily PO mag oxide to 800 mg TID New onset seizure 10/05/2015 11/22/2019 Overview: Seizure activity 10/05, BEM supported the dx of cortical dysfunction in the left hemisphere with potential epileptogenicity in the left fronto-central region CT head negative for acute process, neurology consulted, loaded with Keppra Currently alert, follows commands -- weaned to Keppra 500mg bid -- neurology recommending follow up with epilepsy as outpatient ARDS (adult respiratory distress syndrome) 10/0504/22/2017 Overview: Hx of hepatopulmonary syndrome, pulmonary sarcoidosis requiring home O2 6-10 liters Pulmonary HTN with ~45% shunt. Pre-op PaO2 ~55 on RA CXR now with bilateral fluffy infiltrates / ARDS w/ pulmonary edema Desaturates with movement, turning, suctioning. Space = 60% today, with compliance ~45 -- maintain aggressive vent support (100% FiO2, wean PEEP is able as higher PEEP to increase shunt) -- lung protective strategies - Vt 6ml/kg ideal body weight (~350ml) -- trach on hold while unstable -- lasix TID -- Continue Nitric oxide -- increased I:E ratio -- avoid fluid boluses for hypotension - use pressors if needed -- sputum sent for culture Postoperative anemia due to acute blood loss 04/22/2017 Overview: S/P liver transplant with EBL 17 L c/b thrombocytopenia, coagulopahty and OP bleeding requiring intra-op nasal and pharyngeal packing Last transfused 10/08 2U PRBCs. 10/10: ENT removed nasal merocel. Clots in both nasopharyxes. No reinsertion of nasal tubes. -- monitor CBC and coags -- transfuse as required Agitation requiring sedation protocol 10/05/2015 04/22/2017 Overview: Required prolonged neuromuscular blockade with deep sedation secondary to increased WOB, breath stacking and hypoxia After discontinuation, he has had difficultly controlling agitation, likely opioid withdrawl. Had required precedex, fentanyl patch, prn haldol, seroquel Currently on seroquel, fentanyl patch Has been awake and alert, very cooperative -- continue on decreased TID seroquel dosing of 25mg TID and 150 mg qHS -- continue with fentanyl patch Acute post-operative pain 10/05/20152016 Overview: Was on prolonged fentanyl infusion d/t vent asynchrony, pain from liver tx Now transitioned to patch, infusion stopped 11/13 -- continue fentanyl patch (100mcg) Renal insufficiency 10/05/2015 10/08/2015 Overview: Secondary to hypotension Baseline Scr 0.66, now down to 0.83 Making good UO -- monitor renal indices Stress hyperglycemia 10/05/2015 04/22/2017 Overview: -- Adequate glycemic control with SSI Moderate protein-calorie malnutrition 10/05/2015 04/22/2017 Overview: Tolerating goal tube feeds Osmolite 1.2 @ 70 Prealbumin 26, transferrin 185 -- continue TF with fiber and beneprotien and full liquid diet -- nutrition following Abdominal distension 09/12/2015 04/22/2017 Overview: - concerning given weight gain of 30 lb from 09/04 - CT abdomen on last admission showed tissue edema> ascites, concern for third spacing in the abdominal wall tissue - no evidence of active infection, however, currently pancytopenia - was taking Lasix 20 mg PO every other day and spironolactone 50 mg PO daily - Liver vascular U/S demonstrates patent vasculature Plan - diuresis with Lasix 40 mg PO BID and spironolactone 100 mg PO daily - paracentesis as needed for respiratory function Liver transplant candidate 08/17/201504/22 Pain disorder with psychological factors 015 12/23/2021 Hyperammonemia 07/20/2015 04/22/2017 SUMMARY 06/14/2015 09/12/2015 Overview: Mr. 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 SOB (shortness of breath) 06/14/20152016 Overview: Started after dry run Possibly irritated by catheter? Systolic murmur also heard Chest x-ray and CT PE negative Currently at baseline New valvular lesion vs clot? -Echocardiogram -Doppler study -Observe for now Hepatic cirrhosis 06/14/2015 04/22/2017 Overview: #Cirrhosis -Continue lactulose, rifaximin -Continue aldactone Infection of other external stoma of urinary tra ct 05/17/2015 04/22/2017 UTI (lower urinary tract infection) 04/08/2015 04/22/2017 Overview: Was complaining of dysuria. UA positive with leukoesterase and Was started of ceftriaxone at OSH. Received 2 dosages here yesterday and one today. Will finish treatment for complicated UTI at home with cipro [id number] Hepatic encephalopathy 04/08/2015 7 Overview: On lactulose zinc Rifaximin Fever, low grade 11/03/2014 04/22/2017 Overview: Low grade fever on presentation UA clean Plan - Blood cx ngtd - afebrile since SUMMARY 08/31/2014 07/24/2016 Overview: The patient is a 50 yo male with a past medical history of HCV/ETOH Liver Cirrhosis c/b hepatopulmonary syndrome, hypersplenism, HE, Grade I EV, pulmonary sarcoidosis who presents with acute weight gain, abdominal distension, and SOB Fever and chills 08/31/2014 04/22/2017 Overview: Tmax 38.7 this AM; pt reports recent history of tooth extraction One time fever yesterday Received 2 time cefazolin after PFO closure. Plan: -UA, BCxx2 - NG till now -will hold off on abx for now and observe Retained dental root 08/15/2014 12/23/2021 Hepatopulmonary syndrome 03/12/2014 018 Overview: History of hepatopulmonary syndrome with ~45.2% shunt, pulmonary sarcoidosis requiring home O2 6-10 liters and mild pulmonary HTN Preop PaO2 ~55 on RA Profound hypoxia postoperatively requiring max vent support with high PEEP, heavy sedation/paralytics, flolan, nitric oxide (off since 10/26) Course c/b Right lung Pneumothorax, resp failure requiring trach 11/01 Decompensation 11/04 secondary to narcotic withdrawal +/- sepsis-->Drastically improved with fentanyl infusion, ATB. Updated echo 11/15 with EF 55%, normal RV Currently doing great, on continuous trach collar with passy etta valve, and diet -- Goal sats 85% -- Continue TC, PMV, OOB Bicytopenia 03/12/2014 04/22/2017 Overview: He has plat count of 20k and WCC of around 1000 His neutropenia is likely 2/2 to INF His thrombocytopenia is likley 2/2 to his cirrhosis Plan: Watch, transfuse plats if <10k or bleeding Pancytopenia 03/11/2014 03/12/2014 Hypoxemia 03/11/2014 10/15/2015 Overview: Due to underlying HPS Now on 100% Fio2 with last PaO2 60, Nitric oxide started 10/08, at 40 PPM. O2 sats maintaining in 80s CTS consulted for ECMO evaluation -- Given profound thrombocytopenia and grave condition ECMO not recommended -- Continue nitric oxide -- lung protective ventilation -- increased I:E ratio (at 2.4:1), paralyze with rocuronium if needed -- goal of O2 sats in 70s permissible COPD (chronic obstructive pulmonary disease) 03/12/2014 Coagulopathy 03/11/2014 04/22/2017 Syncope 01/03/2014 04/22/2017 Epididymitis 11/24/2013 04/22/2017 Testalgia 11/24/2013 04/22/2017 Thrombocytopenia 08/20/2009 04/22/2017 Overview: Platelets 96k today, received platelets 10/11 prior to liver biopsy. no obvious bleeding -- monitor CBC, coags -- transfuse as required -- monitor for bleeding -- transfuse plts prior to invasive procedures Hepatitis C 08/20/2009 11/03/2014 Cirrhosis 04/22/2017 Overview: Secondary to alcohol use and HCV complicated by ascites, PSE (on lactulose, rifaximin) and hepatopulmonary syndrome on home O2 s/p OLT on 10/03/15 Concern for rejection (humoral), now s/p thymo, IVIG, plasmapheresis 10/15 and 10/16 completed -hydrocortisone (switched from prednisone) now tapering down - MMF - FK documented as of this encounter (statuses as of 05/13/2022) [facility] History of Past illness Narrative* Problem Noted Date Resolved Date Hilar adenopathy 07/09/2018 08/19/2018 Last Assessment & Plan: Assessment: CT A/P on Admission shows Significant subcarinal and bilateral hilar adenopathy on the lower images through the chest. Lymphoproliferative disease suspected He does have a hx of sarcoid But no recent CT chest/CXR to compare. CT chest shows SPLENOMEGALY AND NUMEROUS ENLARGED MEDIASTINAL AND BILATERAL HILAR LYMPH NODES, INCREASED IN SIZE SINCE 2016. THE DIFFERENTIAL DIAGNOSIS INCLUDES SARCOIDOSIS AND LYMPHOPROLIFERATIVE DISEASE. PLAN: -Transfer to [facility] for further evaluation by oncology per ID recommedation. Nausea & vomiting 07/09/2018 07/28/2018 Last Assessment & Plan: Assessment: Patient notes off and on nausea for one month. Also notes worsening control of his reflux symptoms. CTA/P shows significant subcarinal and bilateral hilar adenopathy and new subtle intrahepatic biliary dilatation and common duct dilatation . Obstructing lesion must be excluded, however.Splenic enlargement PLAN: -Increase protonix to 40mg bid -Zofran PRN for N/V -GI consult pending. Cellulitis 07/09/2018 07/13/2018 Abdominal wall cellulitis 12/01/20172021 Last Assessment & Plan: Assessment: Second Episode this year . Likely due to his constant picking of the skin of his abdomen. He is HDS, no leucocytosis,crp 2.6,ESR 2,lactate normal CTA/P shows no abscess nor cellulitis . PLAN: Continue ancef started in the ER. Continue bactrim as scheduled for prophylaxis - due to hx of liver transplant PRN morphine for pain. ID consult (because of his immunocompromised state - hx of liver transplant/ommunesuppresants) Wound care consult (re:open areas on his abdomen due to his scratching) F/up on blood Culture Ventral hernia without obstruction or gangrene 0 03/24/2017 04/22/2017 Lower abdominal pain 07/23/2016 04/22/2017 Opioid withdrawal 11/09/2015 04/22/2017 Overview: Thursday with opioid withdrawal after attempted discontinuation of fentanyl Resolution of symptoms after re-starting fentanyl -- Continue fentanyl patch with prn IVP fentanyl for breakthrough pain -- Drip stopped 3/2 Respiratory failure, post-operative 10/22/2015 04/22/2017 Overview: Pt intubated for OLT on 10/03/15, remained intubated d/t severe hypoxia (see hepato pulmonary syndrome) 11/01 s/p tracheostomy Very weak and debilitated, profound ICU neuromyopathy Currently improved, toleratingTC, passy etta valve capped -- continue trach collar, PMV Acute pneumothorax 10/17/2015 04/22/2017 Prerenal azotemia 10/17/2015 10/24/2015 Overview: Bun/ Creat ratio now trending down. Hypernatremia resolved -- trend Renal indices -- lasix 20 mg q8 Acute pulmonary embolism 10/17/2015 017 Spontaneous pneumothorax 10/16/2015 017 Overview: Pneumothorax discovered on CT chest 10/15 in setting of high PEEP requirements s/p chest tube placements x2 Last CT removed 11/02 CXR with small persistent Rt. Apical pneumothorax- not appeciated on today's CXR --continue to follow daily CXRs Pneumonia, organism unspecified(486) 10/16/2015 11/02/2015 Overview: CT of chest 10/15 shows RLL consolidation suspicious for pneumonia. Completed course of vanco and meropenem continuing micfungin. Sputum culture from 10/09 shows normal respiratory erum. legionella urinary antigen negative --ID following Sepsis due to other etiology 10/15/201505/2017 Overview: Has completed empiric courses of antibiotics for persistent low grade fevers and acute decompensation No obvious source of infection identified per extensive ID workup Vanco d/c 10/25, Meropenem d/c 10/26 11/04 Acute decompensation (fevers 11/05) empiric pip-tazo, vanc, micafungin added--> off since 11/11 (cultures negative) CT chest/ab/pelvis (11/08) with no evidence of infective process -- continue to monitor off ATB Postoperative shock 10/09/2015 04/22/2017 Overview: Shock, hypotension, fevers with increasing leukocytosis in setting of liver transplant, hepatopulmonary syndrome, ARDS, hypoxia. Profound hypoxia requiring nitric oxide therapy. Required low dose levo for BP support, now off. Concern for sepsis, blood cultures negative to date, vanco and zosyn started empirically 10/08. Procalcitonin 1.06. Lacate 1.8 -- Follow cultures -- continue vanco and zosyn -- levo for BP support (avoid fluid boluses if hypotensive) Electrolyte and fluid disorder 10/07/2015 0 04/22/2017 Overview: Hypomagnesemia repleted, hyperphos -- monitor and replete lytes daily -- increase daily PO mag oxide to 800 mg TID New onset seizure 10/05/2015 11/22/2019 Overview: Seizure activity 10/05, BEM supported the dx of cortical dysfunction in the left hemisphere with potential epileptogenicity in the left fronto-central region CT head negative for acute process, neurology consulted, loaded with Keppra Currently alert, follows commands -- weaned to Keppra 500mg bid -- neurology recommending follow up with epilepsy as outpatient ARDS (adult respiratory distress syndrome) 10/0504/22/2017 Overview: Hx of hepatopulmonary syndrome, pulmonary sarcoidosis requiring home O2 6-10 liters Pulmonary HTN with ~45% shunt. Pre-op PaO2 ~55 on RA CXR now with bilateral fluffy infiltrates / ARDS w/ pulmonary edema Desaturates with movement, turning, suctioning. Space = 60% today, with compliance ~45 -- maintain aggressive vent support (100% FiO2, wean PEEP is able as higher PEEP to increase shunt) -- lung protective strategies - Vt 6ml/kg ideal body weight (~350ml) -- trach on hold while unstable -- lasix TID -- Continue Nitric oxide -- increased I:E ratio -- avoid fluid boluses for hypotension - use pressors if needed -- sputum sent for culture Postoperative anemia due to acute blood loss 04/22/2017 Overview: S/P liver transplant with EBL 17 L c/b thrombocytopenia, coagulopahty and OP bleeding requiring intra-op nasal and pharyngeal packing Last transfused 10/08 2U PRBCs. 10/10: ENT removed nasal merocel. Clots in both nasopharyxes. No reinsertion of nasal tubes. -- monitor CBC and coags -- transfuse as required Agitation requiring sedation protocol 10/05/2015 04/22/2017 Overview: Required prolonged neuromuscular blockade with deep sedation secondary to increased WOB, breath stacking and hypoxia After discontinuation, he has had difficultly controlling agitation, likely opioid withdrawl. Had required precedex, fentanyl patch, prn haldol, seroquel Currently on seroquel, fentanyl patch Has been awake and alert, very cooperative -- continue on decreased TID seroquel dosing of 25mg TID and 150 mg qHS -- continue with fentanyl patch Acute post-operative pain 10/05/20152016 Overview: Was on prolonged fentanyl infusion d/t vent asynchrony, pain from liver tx Now transitioned to patch, infusion stopped 11/13 -- continue fentanyl patch (100mcg) Renal insufficiency 10/05/2015 10/08/2015 Overview: Secondary to hypotension Baseline Scr 0.66, now down to 0.83 Making good UO -- monitor renal indices Stress hyperglycemia 10/05/2015 04/22/2017 Overview: -- Adequate glycemic control with SSI Moderate protein-calorie malnutrition 10/05/2015 04/22/2017 Overview: Tolerating goal tube feeds Osmolite 1.2 @ 70 Prealbumin 26, transferrin 185 -- continue TF with fiber and beneprotien and full liquid diet -- nutrition following Abdominal distension 09/12/2015 04/22/2017 Overview: - concerning given weight gain of 30 lb from 09/04 - CT abdomen on last admission showed tissue edema> ascites, concern for third spacing in the abdominal wall tissue - no evidence of active infection, however, currently pancytopenia - was taking Lasix 20 mg PO every other day and spironolactone 50 mg PO daily - Liver vascular U/S demonstrates patent vasculature Plan - diuresis with Lasix 40 mg PO BID and spironolactone 100 mg PO daily - paracentesis as needed for respiratory function Liver transplant candidate 08/17/201504/22 Pain disorder with psychological factors 015 12/23/2021 Hyperammonemia 07/20/2015 04/22/2017 SUMMARY 06/14/2015 09/12/2015 Overview: Mr. 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 SOB (shortness of breath) 06/14/20152016 Overview: Started after dry run Possibly irritated by catheter? Systolic murmur also heard Chest x-ray and CT PE negative Currently at baseline New valvular lesion vs clot? -Echocardiogram -Doppler study -Observe for now Hepatic cirrhosis 06/14/2015 04/22/2017 Overview: #Cirrhosis -Continue lactulose, rifaximin -Continue aldactone Infection of other external stoma of urinary tra ct 05/17/2015 04/22/2017 UTI (lower urinary tract infection) 04/08/2015 04/22/2017 Overview: Was complaining of dysuria. UA positive with leukoesterase and Was started of ceftriaxone at OSH. Received 2 dosages here yesterday and one today. Will finish treatment for complicated UTI at home with cipro 500BID Hepatic encephalopathy 04/08/2015 7 Overview: On lactulose zinc Rifaximin Fever, low grade 11/03/2014 04/22/2017 Overview: Low grade fever on presentation UA clean Plan - Blood cx ngtd - afebrile since SUMMARY 08/31/2014 07/24/2016 Overview: The patient is a 50 yo male with a past medical history of HCV/ETOH Liver Cirrhosis c/b hepatopulmonary syndrome, hypersplenism, HE, Grade I EV, pulmonary sarcoidosis who presents with acute weight gain, abdominal distension, and SOB Fever and chills 08/31/2014 04/22/2017 Overview: Tmax 38.7 this AM; pt reports recent history of tooth extraction One time fever yesterday Received 2 time cefazolin after PFO closure. Plan: -UA, BCxx2 - NG till now -will hold off on abx for now and observe Retained dental root 08/15/2014 12/23/2021 Hepatopulmonary syndrome 03/12/2014 018 Overview: History of hepatopulmonary syndrome with ~45.2% shunt, pulmonary sarcoidosis requiring home O2 6-10 liters and mild pulmonary HTN Preop PaO2 ~55 on RA Profound hypoxia postoperatively requiring max vent support with high PEEP, heavy sedation/paralytics, flolan, nitric oxide (off since 10/26) Course c/b Right lung Pneumothorax, resp failure requiring trach 11/01 Decompensation 11/04 secondary to narcotic withdrawal +/- sepsis-->Drastically improved with fentanyl infusion, ATB. Updated echo 11/15 with EF 55%, normal RV Currently doing great, on continuous trach collar with passy etta valve, and diet -- Goal sats 85% -- Continue TC, PMV, OOB Bicytopenia 03/12/2014 04/22/2017 Overview: He has plat count of 20k and WCC of around 1000 His neutropenia is likely 2/2 to INF His thrombocytopenia is likley 2/2 to his cirrhosis Plan: Watch, transfuse plats if <10k or bleeding Pancytopenia 03/11/2014 03/12/2014 Hypoxemia 03/11/2014 10/15/2015 Overview: Due to underlying HPS Now on 100% Fio2 with last PaO2 60, Nitric oxide started 10/08, at 40 PPM. O2 sats maintaining in 80s CTS consulted for ECMO evaluation -- Given profound thrombocytopenia and grave condition ECMO not recommended -- Continue nitric oxide -- lung protective ventilation -- increased I:E ratio (at 2.4:1), paralyze with rocuronium if needed -- goal of O2 sats in 70s permissible COPD (chronic obstructive pulmonary disease) 03/12/2014 Coagulopathy 03/11/2014 04/22/2017 Syncope 01/03/2014 04/22/2017 Epididymitis 11/24/2013 04/22/2017 Testalgia 11/24/2013 04/22/2017 Thrombocytopenia 08/20/2009 04/22/2017 Overview: Platelets 96k today, received platelets 10/11 prior to liver biopsy. no obvious bleeding -- monitor CBC, coags -- transfuse as required -- monitor for bleeding -- transfuse plts prior to invasive procedures Hepatitis C 08/20/2009 11/03/2014 Cirrhosis 04/22/2017 Overview: Secondary to alcohol use and HCV complicated by ascites, PSE (on lactulose, rifaximin) and hepatopulmonary syndrome on home O2 s/p OLT on 10/03/15 Concern for rejection (humoral), now s/p thymo, IVIG, plasmapheresis 10/15 and 10/16 completed -hydrocortisone (switched from prednisone) now tapering down - MMF - FK documented as of this encounter (statuses as of 05/14/2022) [facility]10[facility]2018 History of Past illness Narrative* Problem Noted Date Resolved Date Hilar adenopathy 07/09/2018 08/19/2018 Last Assessment & Plan: Assessment: CT A/P on Admission shows Significant subcarinal and bilateral hilar adenopathy on the lower images through the chest. Lymphoproliferative disease suspected He does have a hx of sarcoid But no recent CT chest/CXR to compare. CT chest shows SPLENOMEGALY AND NUMEROUS ENLARGED MEDIASTINAL AND BILATERAL HILAR LYMPH NODES, INCREASED IN SIZE SINCE 2016. THE DIFFERENTIAL DIAGNOSIS INCLUDES SARCOIDOSIS AND LYMPHOPROLIFERATIVE DISEASE. PLAN: -Transfer to [facility] for further evaluation by oncology per ID recommedation. Nausea & vomiting 07/09/2018 07/28/2018 Last Assessment & Plan: Assessment: Patient notes off and on nausea for one month. Also notes worsening control of his reflux symptoms. CTA/P shows significant subcarinal and bilateral hilar adenopathy and new subtle intrahepatic biliary dilatation and common duct dilatation . Obstructing lesion must be excluded, however.Splenic enlargement PLAN: -Increase protonix to 40mg bid -Zofran PRN for N/V -GI consult pending. Cellulitis 07/09/2018 07/13/2018 Abdominal wall cellulitis 12/01/20172021 Last Assessment & Plan: Assessment: Second Episode this year . Likely due to his constant picking of the skin of his abdomen. He is HDS, no leucocytosis,crp 2.6,ESR 2,lactate normal CTA/P shows no abscess nor cellulitis . PLAN: Continue ancef started in the ER. Continue bactrim as scheduled for prophylaxis - due to hx of liver transplant PRN morphine for pain. ID consult (because of his immunocompromised state - hx of liver transplant/ommunesuppresants) Wound care consult (re:open areas on his abdomen due to his scratching) F/up on blood Culture Ventral hernia without obstruction or gangrene 0 03/24/2017 04/22/2017 Lower abdominal pain 07/23/2016 04/22/2017 Opioid withdrawal 11/09/2015 04/22/2017 Overview: Thursday with opioid withdrawal after attempted discontinuation of fentanyl Resolution of symptoms after re-starting fentanyl -- Continue fentanyl patch with prn IVP fentanyl for breakthrough pain -- Drip stopped 3/2 Respiratory failure, post-operative 10/22/2015 04/22/2017 Overview: Pt intubated for OLT on 10/03/15, remained intubated d/t severe hypoxia (see hepato pulmonary syndrome) 11/01 s/p tracheostomy Very weak and debilitated, profound ICU neuromyopathy Currently improved, toleratingTC, passy etta valve capped -- continue trach collar, PMV Acute pneumothorax 10/17/2015 04/22/2017 Prerenal azotemia 10/17/2015 10/24/2015 Overview: Bun/ Creat ratio now trending down. Hypernatremia resolved -- trend Renal indices -- lasix 20 mg q8 Acute pulmonary embolism 10/17/2015 017 Spontaneous pneumothorax 10/16/2015 017 Overview: Pneumothorax discovered on CT chest 10/15 in setting of high PEEP requirements s/p chest tube placements x2 Last CT removed 11/02 CXR with small persistent Rt. Apical pneumothorax- not appeciated on today's CXR --continue to follow daily CXRs Pneumonia, organism unspecified([id number]) 10/16/2015 11/02/2015 Overview: CT of chest 10/15 shows RLL consolidation suspicious for pneumonia. Completed course of vanco and meropenem continuing micfungin. Sputum culture from 10/09 shows normal respiratory erum. legionella urinary antigen negative --ID following Sepsis due to other etiology 10/15/201505/2017 Overview: Has completed empiric courses of antibiotics for persistent low grade fevers and acute decompensation No obvious source of infection identified per extensive ID workup Vanco d/c 10/25, Meropenem d/c 10/26 11/04 Acute decompensation (fevers 11/05) empiric pip-tazo, vanc, micafungin added--> off since 11/11 (cultures negative) CT chest/ab/pelvis (11/08) with no evidence of infective process -- continue to monitor off ATB Postoperative shock 10/09/2015 04/22/2017 Overview: Shock, hypotension, fevers with increasing leukocytosis in setting of liver transplant, hepatopulmonary syndrome, ARDS, hypoxia. Profound hypoxia requiring nitric oxide therapy. Required low dose levo for BP support, now off. Concern for sepsis, blood cultures negative to date, vanco and zosyn started empirically 10/08. Procalcitonin 1.06. Lacate 1.8 -- Follow cultures -- continue vanco and zosyn -- levo for BP support (avoid fluid boluses if hypotensive) Electrolyte and fluid disorder 10/07/2015 0 04/22/2017 Overview: Hypomagnesemia repleted, hyperphos -- monitor and replete lytes daily -- increase daily PO mag oxide to 800 mg TID New onset seizure 10/05/2015 11/22/2019 Overview: Seizure activity 10/05, BEM supported the dx of cortical dysfunction in the left hemisphere with potential epileptogenicity in the left fronto-central region CT head negative for acute process, neurology consulted, loaded with Keppra Currently alert, follows commands -- weaned to Keppra 500mg bid -- neurology recommending follow up with epilepsy as outpatient ARDS (adult respiratory distress syndrome) 10/0504/22/2017 Overview: Hx of hepatopulmonary syndrome, pulmonary sarcoidosis requiring home O2 6-10 liters Pulmonary HTN with ~45% shunt. Pre-op PaO2 ~55 on RA CXR now with bilateral fluffy infiltrates / ARDS w/ pulmonary edema Desaturates with movement, turning, suctioning. Space = 60% today, with compliance ~45 -- maintain aggressive vent support (100% FiO2, wean PEEP is able as higher PEEP to increase shunt) -- lung protective strategies - Vt 6ml/kg ideal body weight (~350ml) -- trach on hold while unstable -- lasix TID -- Continue Nitric oxide -- increased I:E ratio -- avoid fluid boluses for hypotension - use pressors if needed -- sputum sent for culture Postoperative anemia due to acute blood loss 04/22/2017 Overview: S/P liver transplant with EBL 17 L c/b thrombocytopenia, coagulopahty and OP bleeding requiring intra-op nasal and pharyngeal packing Last transfused 10/08 2U PRBCs. 10/10: ENT removed nasal merocel. Clots in both nasopharyxes. No reinsertion of nasal tubes. -- monitor CBC and coags -- transfuse as required Agitation requiring sedation protocol 10/05/2015 04/22/2017 Overview: Required prolonged neuromuscular blockade with deep sedation secondary to increased WOB, breath stacking and hypoxia After discontinuation, he has had difficultly controlling agitation, likely opioid withdrawl. Had required precedex, fentanyl patch, prn haldol, seroquel Currently on seroquel, fentanyl patch Has been awake and alert, very cooperative -- continue on decreased TID seroquel dosing of 25mg TID and 150 mg qHS -- continue with fentanyl patch Acute post-operative pain 10/05/20152016 Overview: Was on prolonged fentanyl infusion d/t vent asynchrony, pain from liver tx Now transitioned to patch, infusion stopped 11/13 -- continue fentanyl patch (100mcg) Renal insufficiency 10/05/2015 10/08/2015 Overview: Secondary to hypotension Baseline Scr 0.66, now down to 0.83 Making good UO -- monitor renal indices Stress hyperglycemia 10/05/2015 04/22/2017 Overview: -- Adequate glycemic control with SSI Moderate protein-calorie malnutrition 10/05/2015 04/22/2017 Overview: Tolerating goal tube feeds Osmolite 1.2 @ 70 Prealbumin 26, transferrin 185 -- continue TF with fiber and beneprotien and full liquid diet -- nutrition following Abdominal distension 09/12/2015 04/22/2017 Overview: - concerning given weight gain of 30 lb from 09/04 - CT abdomen on last admission showed tissue edema> ascites, concern for third spacing in the abdominal wall tissue - no evidence of active infection, however, currently pancytopenia - was taking Lasix 20 mg PO every other day and spironolactone 50 mg PO daily - Liver vascular U/S demonstrates patent vasculature Plan - diuresis with Lasix 40 mg PO BID and spironolactone 100 mg PO daily - paracentesis as needed for respiratory function Liver transplant candidate 08/17/201504/22 Pain disorder with psychological factors 015 12/23/2021 Hyperammonemia 07/20/2015 04/22/2017 SUMMARY 06/14/2015 09/12/2015 Overview: Mr. 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 SOB (shortness of breath) 06/14/20152016 Overview: Started after dry run Possibly irritated by catheter? Systolic murmur also heard Chest x-ray and CT PE negative Currently at baseline New valvular lesion vs clot? -Echocardiogram -Doppler study -Observe for now Hepatic cirrhosis 06/14/2015 04/22/2017 Overview: #Cirrhosis -Continue lactulose, rifaximin -Continue aldactone Infection of other external stoma of urinary tra ct 05/17/2015 04/22/2017 UTI (lower urinary tract infection) 04/08/2015 04/22/2017 Overview: Was complaining of dysuria. UA positive with leukoesterase and Was started of ceftriaxone at OSH. Received 2 dosages here yesterday and one today. Will finish treatment for complicated UTI at home with cipro [id number] Hepatic encephalopathy 04/08/2015 7 Overview: On lactulose zinc Rifaximin Fever, low grade 11/03/2014 04/22/2017 Overview: Low grade fever on presentation UA clean Plan - Blood cx ngtd - afebrile since SUMMARY 08/31/2014 07/24/2016 Overview: The patient is a 50 yo male with a past medical history of HCV/ETOH Liver Cirrhosis c/b hepatopulmonary syndrome, hypersplenism, HE, Grade I EV, pulmonary sarcoidosis who presents with acute weight gain, abdominal distension, and SOB Fever and chills 08/31/2014 04/22/2017 Overview: Tmax 38.7 this AM; pt reports recent history of tooth extraction One time fever yesterday Received 2 time cefazolin after PFO closure. Plan: -UA, BCxx2 - NG till now -will hold off on abx for now and observe Retained dental root 08/15/2014 12/23/2021 Hepatopulmonary syndrome 03/12/2014 018 Overview: History of hepatopulmonary syndrome with ~45.2% shunt, pulmonary sarcoidosis requiring home O2 6-10 liters and mild pulmonary HTN Preop PaO2 ~55 on RA Profound hypoxia postoperatively requiring max vent support with high PEEP, heavy sedation/paralytics, flolan, nitric oxide (off since 10/26) Course c/b Right lung Pneumothorax, resp failure requiring trach 11/01 Decompensation 11/04 secondary to narcotic withdrawal +/- sepsis-->Drastically improved with fentanyl infusion, ATB. Updated echo 11/15 with EF 55%, normal RV Currently doing great, on continuous trach collar with passy etta valve, and diet -- Goal sats 85% -- Continue TC, PMV, OOB Bicytopenia 03/12/2014 04/22/2017 Overview: He has plat count of 20k and WCC of around 1000 His neutropenia is likely 2/2 to INF His thrombocytopenia is likley 2/2 to his cirrhosis Plan: Watch, transfuse plats if <10k or bleeding Pancytopenia 03/11/2014 03/12/2014 Hypoxemia 03/11/2014 10/15/2015 Overview: Due to underlying HPS Now on 100% Fio2 with last PaO2 60, Nitric oxide started 10/08, at 40 PPM. O2 sats maintaining in 80s CTS consulted for ECMO evaluation -- Given profound thrombocytopenia and grave condition ECMO not recommended -- Continue nitric oxide -- lung protective ventilation -- increased I:E ratio (at 2.4:1), paralyze with rocuronium if needed -- goal of O2 sats in 70s permissible COPD (chronic obstructive pulmonary disease) 03/12/2014 Coagulopathy 03/11/2014 04/22/2017 Syncope 01/03/2014 04/22/2017 Epididymitis 11/24/2013 04/22/2017 Testalgia 11/24/2013 04/22/2017 Thrombocytopenia 08/20/2009 04/22/2017 Overview: Platelets 96k today, received platelets 10/11 prior to liver biopsy. no obvious bleeding -- monitor CBC, coags -- transfuse as required -- monitor for bleeding -- transfuse plts prior to invasive procedures Hepatitis C 08/20/2009 11/03/2014 Cirrhosis 04/22/2017 Overview: Secondary to alcohol use and HCV complicated by ascites, PSE (on lactulose, rifaximin) and hepatopulmonary syndrome on home O2 s/p OLT on 10/03/15 Concern for rejection (humoral), now s/p thymo, IVIG, plasmapheresis 10/15 and 10/16 completed -hydrocortisone (switched from prednisone) now tapering down - MMF - FK documented as of this encounter (statuses as of 05/15/2022) [facility] History of Past illness Narrative* Problem Noted Date Resolved Date Hilar adenopathy 07/09/2018 08/19/2018 Last Assessment & Plan: Assessment: CT A/P on Admission shows Significant subcarinal and bilateral hilar adenopathy on the lower images through the chest. Lymphoproliferative disease suspected He does have a hx of sarcoid But no recent CT chest/CXR to compare. CT chest shows SPLENOMEGALY AND NUMEROUS ENLARGED MEDIASTINAL AND BILATERAL HILAR LYMPH NODES, INCREASED IN SIZE SINCE 2016. THE DIFFERENTIAL DIAGNOSIS INCLUDES SARCOIDOSIS AND LYMPHOPROLIFERATIVE DISEASE. PLAN: -Transfer to [facility] for further evaluation by oncology per ID recommedation. Nausea & vomiting 07/09/2018 07/28/2018 Last Assessment & Plan: Assessment: Patient notes off and on nausea for one month. Also notes worsening control of his reflux symptoms. CTA/P shows significant subcarinal and bilateral hilar adenopathy and new subtle intrahepatic biliary dilatation and common duct dilatation . Obstructing lesion must be excluded, however.Splenic enlargement PLAN: -Increase protonix to 40mg bid -Zofran PRN for N/V -GI consult pending. Cellulitis 07/09/2018 07/13/2018 Abdominal wall cellulitis 12/01/20172021 Last Assessment & Plan: Assessment: Second Episode this year . Likely due to his constant picking of the skin of his abdomen. He is HDS, no leucocytosis,crp 2.6,ESR 2,lactate normal CTA/P shows no abscess nor cellulitis . PLAN: Continue ancef started in the ER. Continue bactrim as scheduled for prophylaxis - due to hx of liver transplant PRN morphine for pain. ID consult (because of his immunocompromised state - hx of liver transplant/ommunesuppresants) Wound care consult (re:open areas on his abdomen due to his scratching) F/up on blood Culture Ventral hernia without obstruction or gangrene 0 03/24/2017 04/22/2017 Lower abdominal pain 07/23/2016 04/22/2017 Opioid withdrawal 11/09/2015 04/22/2017 Overview: Thursday with opioid withdrawal after attempted discontinuation of fentanyl Resolution of symptoms after re-starting fentanyl -- Continue fentanyl patch with prn IVP fentanyl for breakthrough pain -- Drip stopped 3/2 Respiratory failure, post-operative 10/22/2015 04/22/2017 Overview: Pt intubated for OLT on 10/03/15, remained intubated d/t severe hypoxia (see hepato pulmonary syndrome) 11/01 s/p tracheostomy Very weak and debilitated, profound ICU neuromyopathy Currently improved, toleratingTC, passy etta valve capped -- continue trach collar, PMV Acute pneumothorax 10/17/2015 04/22/2017 Prerenal azotemia 10/17/2015 10/24/2015 Overview: Bun/ Creat ratio now trending down. Hypernatremia resolved -- trend Renal indices -- lasix 20 mg q8 Acute pulmonary embolism 10/17/2015 017 Spontaneous pneumothorax 10/16/2015 017 Overview: Pneumothorax discovered on CT chest 10/15 in setting of high PEEP requirements s/p chest tube placements x2 Last CT removed 11/02 CXR with small persistent Rt. Apical pneumothorax- not appeciated on today's CXR --continue to follow daily CXRs Pneumonia, organism unspecified(486) 10/16/2015 11/02/2015 Overview: CT of chest 10/15 shows RLL consolidation suspicious for pneumonia. Completed course of vanco and meropenem continuing micfungin. Sputum culture from 10/09 shows normal respiratory erum. legionella urinary antigen negative --ID following Sepsis due to other etiology 10/15/201505/2017 Overview: Has completed empiric courses of antibiotics for persistent low grade fevers and acute decompensation No obvious source of infection identified per extensive ID workup Vanco d/c 10/25, Meropenem d/c 10/26 11/04 Acute decompensation (fevers 11/05) empiric pip-tazo, vanc, micafungin added--> off since 11/11 (cultures negative) CT chest/ab/pelvis (11/08) with no evidence of infective process -- continue to monitor off ATB Postoperative shock 10/09/2015 04/22/2017 Overview: Shock, hypotension, fevers with increasing leukocytosis in setting of liver transplant, hepatopulmonary syndrome, ARDS, hypoxia. Profound hypoxia requiring nitric oxide therapy. Required low dose levo for BP support, now off. Concern for sepsis, blood cultures negative to date, vanco and zosyn started empirically 10/08. Procalcitonin 1.06. Lacate 1.8 -- Follow cultures -- continue vanco and zosyn -- levo for BP support (avoid fluid boluses if hypotensive) Electrolyte and fluid disorder 10/07/2015 0 04/22/2017 Overview: Hypomagnesemia repleted, hyperphos -- monitor and replete lytes daily -- increase daily PO mag oxide to 800 mg TID New onset seizure 10/05/2015 11/22/2019 Overview: Seizure activity 10/05, BEM supported the dx of cortical dysfunction in the left hemisphere with potential epileptogenicity in the left fronto-central region CT head negative for acute process, neurology consulted, loaded with Keppra Currently alert, follows commands -- weaned to Keppra 500mg bid -- neurology recommending follow up with epilepsy as outpatient ARDS (adult respiratory distress syndrome) 10/0504/22/2017 Overview: Hx of hepatopulmonary syndrome, pulmonary sarcoidosis requiring home O2 6-10 liters Pulmonary HTN with ~45% shunt. Pre-op PaO2 ~55 on RA CXR now with bilateral fluffy infiltrates / ARDS w/ pulmonary edema Desaturates with movement, turning, suctioning. Space = 60% today, with compliance ~45 -- maintain aggressive vent support (100% FiO2, wean PEEP is able as higher PEEP to increase shunt) -- lung protective strategies - Vt 6ml/kg ideal body weight (~350ml) -- trach on hold while unstable -- lasix TID -- Continue Nitric oxide -- increased I:E ratio -- avoid fluid boluses for hypotension - use pressors if needed -- sputum sent for culture Postoperative anemia due to acute blood loss 04/22/2017 Overview: S/P liver transplant with EBL 17 L c/b thrombocytopenia, coagulopahty and OP bleeding requiring intra-op nasal and pharyngeal packing Last transfused 10/08 2U PRBCs. 10/10: ENT removed nasal merocel. Clots in both nasopharyxes. No reinsertion of nasal tubes. -- monitor CBC and coags -- transfuse as required Agitation requiring sedation protocol 10/05/2015 04/22/2017 Overview: Required prolonged neuromuscular blockade with deep sedation secondary to increased WOB, breath stacking and hypoxia After discontinuation, he has had difficultly controlling agitation, likely opioid withdrawl. Had required precedex, fentanyl patch, prn haldol, seroquel Currently on seroquel, fentanyl patch Has been awake and alert, very cooperative -- continue on decreased TID seroquel dosing of 25mg TID and 150 mg qHS -- continue with fentanyl patch Acute post-operative pain 10/05/20152016 Overview: Was on prolonged fentanyl infusion d/t vent asynchrony, pain from liver tx Now transitioned to patch, infusion stopped 11/13 -- continue fentanyl patch (100mcg) Renal insufficiency 10/05/2015 10/08/2015 Overview: Secondary to hypotension Baseline Scr 0.66, now down to 0.83 Making good UO -- monitor renal indices Stress hyperglycemia 10/05/2015 04/22/2017 Overview: -- Adequate glycemic control with SSI Moderate protein-calorie malnutrition 10/05/2015 04/22/2017 Overview: Tolerating goal tube feeds Osmolite 1.2 @ 70 Prealbumin 26, transferrin 185 -- continue TF with fiber and beneprotien and full liquid diet -- nutrition following Abdominal distension 09/12/2015 04/22/2017 Overview: - concerning given weight gain of 30 lb from 09/04 - CT abdomen on last admission showed tissue edema> ascites, concern for third spacing in the abdominal wall tissue - no evidence of active infection, however, currently pancytopenia - was taking Lasix 20 mg PO every other day and spironolactone 50 mg PO daily - Liver vascular U/S demonstrates patent vasculature Plan - diuresis with Lasix 40 mg PO BID and spironolactone 100 mg PO daily - paracentesis as needed for respiratory function Liver transplant candidate 08/17/201504/22 Pain disorder with psychological factors 015 12/23/2021 Hyperammonemia 07/20/2015 04/22/2017 SUMMARY 06/14/2015 09/12/2015 Overview: Mr. 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 SOB (shortness of breath) 06/14/20152016 Overview: Started after dry run Possibly irritated by catheter? Systolic murmur also heard Chest x-ray and CT PE negative Currently at baseline New valvular lesion vs clot? -Echocardiogram -Doppler study -Observe for now Hepatic cirrhosis 06/14/2015 04/22/2017 Overview: #Cirrhosis -Continue lactulose, rifaximin -Continue aldactone Infection of other external stoma of urinary tra ct 05/17/2015 04/22/2017 UTI (lower urinary tract infection) 04/08/2015 04/22/2017 Overview: Was complaining of dysuria. UA positive with leukoesterase and Was started of ceftriaxone at OSH. Received 2 dosages here yesterday and one today. Will finish treatment for complicated UTI at home with cipro 500BID Hepatic encephalopathy 04/08/2015 7 Overview: On lactulose zinc Rifaximin Fever, low grade 11/03/2014 04/22/2017 Overview: Low grade fever on presentation UA clean Plan - Blood cx ngtd - afebrile since SUMMARY 08/31/2014 07/24/2016 Overview: The patient is a 50 yo male with a past medical history of HCV/ETOH Liver Cirrhosis c/b hepatopulmonary syndrome, hypersplenism, HE, Grade I EV, pulmonary sarcoidosis who presents with acute weight gain, abdominal distension, and SOB Fever and chills 08/31/2014 04/22/2017 Overview: Tmax 38.7 this AM; pt reports recent history of tooth extraction One time fever yesterday Received 2 time cefazolin after PFO closure. Plan: -UA, BCxx2 - NG till now -will hold off on abx for now and observe Retained dental root 08/15/2014 12/23/2021 Hepatopulmonary syndrome 03/12/2014 018 Overview: History of hepatopulmonary syndrome with ~45.2% shunt, pulmonary sarcoidosis requiring home O2 6-10 liters and mild pulmonary HTN Preop PaO2 ~55 on RA Profound hypoxia postoperatively requiring max vent support with high PEEP, heavy sedation/paralytics, flolan, nitric oxide (off since 10/26) Course c/b Right lung Pneumothorax, resp failure requiring trach 11/01 Decompensation 11/04 secondary to narcotic withdrawal +/- sepsis-->Drastically improved with fentanyl infusion, ATB. Updated echo 11/15 with EF 55%, normal RV Currently doing great, on continuous trach collar with passy etta valve, and diet -- Goal sats 85% -- Continue TC, PMV, OOB Bicytopenia 03/12/2014 04/22/2017 Overview: He has plat count of 20k and WCC of around 1000 His neutropenia is likely 2/2 to INF His thrombocytopenia is likley 2/2 to his cirrhosis Plan: Watch, transfuse plats if <10k or bleeding Pancytopenia 03/11/2014 03/12/2014 Hypoxemia 03/11/2014 10/15/2015 Overview: Due to underlying HPS Now on 100% Fio2 with last PaO2 60, Nitric oxide started 10/08, at 40 PPM. O2 sats maintaining in 80s CTS consulted for ECMO evaluation -- Given profound thrombocytopenia and grave condition ECMO not recommended -- Continue nitric oxide -- lung protective ventilation -- increased I:E ratio (at 2.4:1), paralyze with rocuronium if needed -- goal of O2 sats in 70s permissible COPD (chronic obstructive pulmonary disease) 03/12/2014 Coagulopathy 03/11/2014 04/22/2017 Syncope 01/03/2014 04/22/2017 Epididymitis 11/24/2013 04/22/2017 Testalgia 11/24/2013 04/22/2017 Thrombocytopenia 08/20/2009 04/22/2017 Overview: Platelets 96k today, received platelets 10/11 prior to liver biopsy. no obvious bleeding -- monitor CBC, coags -- transfuse as required -- monitor for bleeding -- transfuse plts prior to invasive procedures Hepatitis C 08/20/2009 11/03/2014 Cirrhosis 04/22/2017 Overview: Secondary to alcohol use and HCV complicated by ascites, PSE (on lactulose, rifaximin) and hepatopulmonary syndrome on home O2 s/p OLT on 10/03/15 Concern for rejection (humoral), now s/p thymo, IVIG, plasmapheresis 10/15 and 10/16 completed -hydrocortisone (switched from prednisone) now tapering down - MMF - FK documented as of this encounter (statuses as of 06/03/2022) [facility] History of Past illness Narrative* Problem Noted Date Resolved Date Hilar adenopathy 07/09/2018 08/19/2018 Last Assessment & Plan: Assessment: CT A/P on Admission shows Significant subcarinal and bilateral hilar adenopathy on the lower images through the chest. Lymphoproliferative disease suspected He does have a hx of sarcoid But no recent CT chest/CXR to compare. CT chest shows SPLENOMEGALY AND NUMEROUS ENLARGED MEDIASTINAL AND BILATERAL HILAR LYMPH NODES, INCREASED IN SIZE SINCE 2016. THE DIFFERENTIAL DIAGNOSIS INCLUDES SARCOIDOSIS AND LYMPHOPROLIFERATIVE DISEASE. PLAN: -Transfer to [facility] for further evaluation by oncology per ID recommedation. Nausea & vomiting 07/09/2018 07/28/2018 Last Assessment & Plan: Assessment: Patient notes off and on nausea for one month. Also notes worsening control of his reflux symptoms. CTA/P shows significant subcarinal and bilateral hilar adenopathy and new subtle intrahepatic biliary dilatation and common duct dilatation . Obstructing lesion must be excluded, however.Splenic enlargement PLAN: -Increase protonix to 40mg bid -Zofran PRN for N/V -GI consult pending. Cellulitis 07/09/2018 07/13/2018 Abdominal wall cellulitis 12/01/20172021 Last Assessment & Plan: Assessment: Second Episode this year . Likely due to his constant picking of the skin of his abdomen. He is HDS, no leucocytosis,crp 2.6,ESR 2,lactate normal CTA/P shows no abscess nor cellulitis . PLAN: Continue ancef started in the ER. Continue bactrim as scheduled for prophylaxis - due to hx of liver transplant PRN morphine for pain. ID consult (because of his immunocompromised state - hx of liver transplant/ommunesuppresants) Wound care consult (re:open areas on his abdomen due to his scratching) F/up on blood Culture Ventral hernia without obstruction or gangrene 0 03/24/2017 04/22/2017 Lower abdominal pain 07/23/2016 04/22/2017 Opioid withdrawal 11/09/2015 04/22/2017 Overview: Thursday with opioid withdrawal after attempted discontinuation of fentanyl Resolution of symptoms after re-starting fentanyl -- Continue fentanyl patch with prn IVP fentanyl for breakthrough pain -- Drip stopped 3/ Respiratory failure, post-operative 10/22/2015 04/22/2017 Overview: Pt intubated for OLT on 10/03/15, remained intubated d/t severe hypoxia (see hepato pulmonary syndrome) 11/01 s/p tracheostomy Very weak and debilitated, profound ICU neuromyopathy Currently improved, toleratingTC, passy etta valve capped -- continue trach collar, PMV Acute pneumothorax 10/17/2015 04/22/2017 Prerenal azotemia 10/17/2015 10/24/2015 Overview: Bun/ Creat ratio now trending down. Hypernatremia resolved -- trend Renal indices -- lasix 20 mg q8 Acute pulmonary embolism 10/17/2015 017 Spontaneous pneumothorax 10/16/2015 017 Overview: Pneumothorax discovered on CT chest 2/1 in setting of high PEEP requirements s/p chest tube placements x2 Last CT removed 11/02 CXR with small persistent Rt. Apical pneumothorax- not appeciated on today's CXR --continue to follow daily CXRs Pneumonia, organism unspecified([id number]) 10/16/2015 11/02/2015 Overview: CT of chest 10/15 shows RLL consolidation suspicious for pneumonia. Completed course of vanco and meropenem continuing micfungin. Sputum culture from 10/09 shows normal respiratory erum. legionella urinary antigen negative --ID following Sepsis due to other etiology 10/15/201505/2017 Overview: Has completed empiric courses of antibiotics for persistent low grade fevers and acute decompensation No obvious source of infection identified per extensive ID workup Vanco d/c 10/25, Meropenem d/c 10/26 11/04 Acute decompensation (fevers 11/05) empiric pip-tazo, vanc, micafungin added--> off since 11/11 (cultures negative) CT chest/ab/pelvis (11/08) with no evidence of infective process -- continue to monitor off ATB Postoperative shock 10/09/2015 04/22/2017 Overview: Shock, hypotension, fevers with increasing leukocytosis in setting of liver transplant, hepatopulmonary syndrome, ARDS, hypoxia. Profound hypoxia requiring nitric oxide therapy. Required low dose levo for BP support, now off. Concern for sepsis, blood cultures negative to date, vanco and zosyn started empirically 10/08. Procalcitonin 1.06. Lacate 1.8 -- Follow cultures -- continue vanco and zosyn -- levo for BP support (avoid fluid boluses if hypotensive) Electrolyte and fluid disorder 10/07/2015 0 04/22/2017 Overview: Hypomagnesemia repleted, hyperphos -- monitor and replete lytes daily -- increase daily PO mag oxide to 800 mg TID New onset seizure 10/05/2015 11/22/2019 Overview: Seizure activity 10/05, BEM supported the dx of cortical dysfunction in the left hemisphere with potential epileptogenicity in the left fronto-central region CT head negative for acute process, neurology consulted, loaded with Keppra Currently alert, follows commands -- weaned to Keppra 500mg bid -- neurology recommending follow up with epilepsy as outpatient ARDS (adult respiratory distress syndrome) 10/0504/22/2017 Overview: Hx of hepatopulmonary syndrome, pulmonary sarcoidosis requiring home O2 6-10 liters Pulmonary HTN with ~45% shunt. Pre-op PaO2 ~55 on RA CXR now with bilateral fluffy infiltrates / ARDS w/ pulmonary edema Desaturates with movement, turning, suctioning. Space = 60% today, with compliance ~45 -- maintain aggressive vent support (100% FiO2, wean PEEP is able as higher PEEP to increase shunt) -- lung protective strategies - Vt 6ml/kg ideal body weight (~350ml) -- trach on hold while unstable -- lasix TID -- Continue Nitric oxide -- increased I:E ratio -- avoid fluid boluses for hypotension - use pressors if needed -- sputum sent for culture Postoperative anemia due to acute blood loss 04/22/2017 Overview: S/P liver transplant with EBL 17 L c/b thrombocytopenia, coagulopahty and OP bleeding requiring intra-op nasal and pharyngeal packing Last transfused 10/08 2U PRBCs. 10/10: ENT removed nasal merocel. Clots in both nasopharyxes. No reinsertion of nasal tubes. -- monitor CBC and coags -- transfuse as required Agitation requiring sedation protocol 10/05/2015 04/22/2017 Overview: Required prolonged neuromuscular blockade with deep sedation secondary to increased WOB, breath stacking and hypoxia After discontinuation, he has had difficultly controlling agitation, likely opioid withdrawl. Had required precedex, fentanyl patch, prn haldol, seroquel Currently on seroquel, fentanyl patch Has been awake and alert, very cooperative -- continue on decreased TID seroquel dosing of 25mg TID and 150 mg qHS -- continue with fentanyl patch Acute post-operative pain 10/05/20152016 Overview: Was on prolonged fentanyl infusion d/t vent asynchrony, pain from liver tx Now transitioned to patch, infusion stopped 11/13 -- continue fentanyl patch (100mcg) Renal insufficiency 10/05/2015 10/08/2015 Overview: Secondary to hypotension Baseline Scr 0.66, now down to 0.83 Making good UO -- monitor renal indices Stress hyperglycemia 10/05/2015 04/22/2017 Overview: -- Adequate glycemic control with SSI Moderate protein-calorie malnutrition 10/05/2015 04/22/2017 Overview: Tolerating goal tube feeds Osmolite 1.2 @ 70 Prealbumin 26, transferrin 185 -- continue TF with fiber and beneprotien and full liquid diet -- nutrition following Abdominal distension 09/12/2015 04/22/2017 Overview: - concerning given weight gain of 30 lb from 09/04 - CT abdomen on last admission showed tissue edema> ascites, concern for third spacing in the abdominal wall tissue - no evidence of active infection, however, currently pancytopenia - was taking Lasix 20 mg PO every other day and spironolactone 50 mg PO daily - Liver vascular U/S demonstrates patent vasculature Plan - diuresis with Lasix 40 mg PO BID and spironolactone 100 mg PO daily - paracentesis as needed for respiratory function Liver transplant candidate 08/17/201504/22 Pain disorder with psychological factors 015 12/23/2021 Hyperammonemia 07/20/2015 04/22/2017 SUMMARY 06/14/2015 09/12/2015 Overview: Mr. 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 SOB (shortness of breath) 06/14/20152016 Overview: Started after dry run Possibly irritated by catheter? Systolic murmur also heard Chest x-ray and CT PE negative Currently at baseline New valvular lesion vs clot? -Echocardiogram -Doppler study -Observe for now Hepatic cirrhosis 06/14/2015 04/22/2017 Overview: #Cirrhosis -Continue lactulose, rifaximin -Continue aldactone Infection of other external stoma of urinary tra ct 05/17/2015 04/22/2017 UTI (lower urinary tract infection) 04/08/2015 04/22/2017 Overview: Was complaining of dysuria. UA positive with leukoesterase and Was started of ceftriaxone at OSH. Received 2 dosages here yesterday and one today. Will finish treatment for complicated UTI at home with cipro [id number] Hepatic encephalopathy 04/08/2015 7 Overview: On lactulose zinc Rifaximin Fever, low grade 11/03/2014 04/22/2017 Overview: Low grade fever on presentation UA clean Plan - Blood cx ngtd - afebrile since SUMMARY 08/31/2014 07/24/2016 Overview: The patient is a 50 yo male with a past medical history of HCV/ETOH Liver Cirrhosis c/b hepatopulmonary syndrome, hypersplenism, HE, Grade I EV, pulmonary sarcoidosis who presents with acute weight gain, abdominal distension, and SOB Fever and chills 08/31/2014 04/22/2017 Overview: Tmax 38.7 this AM; pt reports recent history of tooth extraction One time fever yesterday Received 2 time cefazolin after PFO closure. Plan: -UA, BCxx2 - NG till now -will hold off on abx for now and observe Retained dental root 08/15/2014 12/23/2021 Hepatopulmonary syndrome 03/12/2014 018 Overview: History of hepatopulmonary syndrome with ~45.2% shunt, pulmonary sarcoidosis requiring home O2 6-10 liters and mild pulmonary HTN Preop PaO2 ~55 on RA Profound hypoxia postoperatively requiring max vent support with high PEEP, heavy sedation/paralytics, flolan, nitric oxide (off since 10/26) Course c/b Right lung Pneumothorax, resp failure requiring trach 11/01 Decompensation 11/04 secondary to narcotic withdrawal +/- sepsis-->Drastically improved with fentanyl infusion, ATB. Updated echo 11/15 with EF 55%, normal RV Currently doing great, on continuous trach collar with passy etta valve, and diet -- Goal sats 85% -- Continue TC, PMV, OOB Bicytopenia 03/12/2014 04/22/2017 Overview: He has plat count of 20k and WCC of around 1000 His neutropenia is likely 2/2 to INF His thrombocytopenia is likley 2/2 to his cirrhosis Plan: Watch, transfuse plats if <10k or bleeding Pancytopenia 03/11/2014 03/12/2014 Hypoxemia 03/11/2014 10/15/2015 Overview: Due to underlying HPS Now on 100% Fio2 with last PaO2 60, Nitric oxide started 10/08, at 40 PPM. O2 sats maintaining in 80s CTS consulted for ECMO evaluation -- Given profound thrombocytopenia and grave condition ECMO not recommended -- Continue nitric oxide -- lung protective ventilation -- increased I:E ratio (at 2.4:1), paralyze with rocuronium if needed -- goal of O2 sats in 70s permissible COPD (chronic obstructive pulmonary disease) 03/12/2014 Coagulopathy 03/11/2014 04/22/2017 Syncope 01/03/2014 04/22/2017 Epididymitis 11/24/2013 04/22/2017 Testalgia 11/24/2013 04/22/2017 Thrombocytopenia 08/20/2009 04/22/2017 Overview: Platelets 96k today, received platelets 10/11 prior to liver biopsy. no obvious bleeding -- monitor CBC, coags -- transfuse as required -- monitor for bleeding -- transfuse plts prior to invasive procedures Hepatitis C 08/20/2009 11/03/2014 Cirrhosis 04/22/2017 Overview: Secondary to alcohol use and HCV complicated by ascites, PSE (on lactulose, rifaximin) and hepatopulmonary syndrome on home O2 s/p OLT on 10/03/15 Concern for rejection (humoral), now s/p thymo, IVIG, plasmapheresis 10/15 and 10/16 completed -hydrocortisone (switched from prednisone) now tapering down - MMF - FK documented as of this encounter (statuses as of 06/03/2022) [facility] History of Past illness Narrative* Problem Noted Date Resolved Date Hilar adenopathy 07/09/2018 08/19/2018 Last Assessment & Plan: Assessment: CT A/P on Admission shows Significant subcarinal and bilateral hilar adenopathy on the lower images through the chest. Lymphoproliferative disease suspected He does have a hx of sarcoid But no recent CT chest/CXR to compare. CT chest shows SPLENOMEGALY AND NUMEROUS ENLARGED MEDIASTINAL AND BILATERAL HILAR LYMPH NODES, INCREASED IN SIZE SINCE 2016. THE DIFFERENTIAL DIAGNOSIS INCLUDES SARCOIDOSIS AND LYMPHOPROLIFERATIVE DISEASE. PLAN: -Transfer to [facility] for further evaluation by oncology per ID recommedation. Nausea & vomiting 07/09/2018 07/28/2018 Last Assessment & Plan: Assessment: Patient notes off and on nausea for one month. Also notes worsening control of his reflux symptoms. CTA/P shows significant subcarinal and bilateral hilar adenopathy and new subtle intrahepatic biliary dilatation and common duct dilatation . Obstructing lesion must be excluded, however.Splenic enlargement PLAN: -Increase protonix to 40mg bid -Zofran PRN for N/V -GI consult pending. Cellulitis 07/09/2018 07/13/2018 Abdominal wall cellulitis 12/01/20172021 Last Assessment & Plan: Assessment: Second Episode this year . Likely due to his constant picking of the skin of his abdomen. He is HDS, no leucocytosis,crp 2.6,ESR 2,lactate normal CTA/P shows no abscess nor cellulitis . PLAN: Continue ancef started in the ER. Continue bactrim as scheduled for prophylaxis - due to hx of liver transplant PRN morphine for pain. ID consult (because of his immunocompromised state - hx of liver transplant/ommunesuppresants) Wound care consult (re:open areas on his abdomen due to his scratching) F/up on blood Culture Ventral hernia without obstruction or gangrene 0 03/24/2017 04/22/2017 Lower abdominal pain 07/23/2016 04/22/2017 Opioid withdrawal 11/09/2015 04/22/2017 Overview: Thursday with opioid withdrawal after attempted discontinuation of fentanyl Resolution of symptoms after re-starting fentanyl -- Continue fentanyl patch with prn IVP fentanyl for breakthrough pain -- Drip stopped 3/ Respiratory failure, post-operative 10/22/2015 04/22/2017 Overview: Pt intubated for OLT on 10/03/15, remained intubated d/t severe hypoxia (see hepato pulmonary syndrome) 11/01 s/p tracheostomy Very weak and debilitated, profound ICU neuromyopathy Currently improved, toleratingTC, passy etta valve capped -- continue trach collar, PMV Acute pneumothorax 10/17/2015 04/22/2017 Prerenal azotemia 10/17/2015 10/24/2015 Overview: Bun/ Creat ratio now trending down. Hypernatremia resolved -- trend Renal indices -- lasix 20 mg q8 Acute pulmonary embolism 10/17/2015 017 Spontaneous pneumothorax 10/16/2015 017 Overview: Pneumothorax discovered on CT chest 10/15 in setting of high PEEP requirements s/p chest tube placements x2 Last CT removed 11/02 CXR with small persistent Rt. Apical pneumothorax- not appeciated on today's CXR --continue to follow daily CXRs Pneumonia, organism unspecified(486) 10/16/2015 11/02/2015 Overview: CT of chest 10/15 shows RLL consolidation suspicious for pneumonia. Completed course of vanco and meropenem continuing micfungin. Sputum culture from 10/09 shows normal respiratory erum. legionella urinary antigen negative --ID following Sepsis due to other etiology 10/15/201505/2017 Overview: Has completed empiric courses of antibiotics for persistent low grade fevers and acute decompensation No obvious source of infection identified per extensive ID workup Vanco d/c 10/25, Meropenem d/c 10/26 11/04 Acute decompensation (fevers 11/05) empiric pip-tazo, vanc, micafungin added--> off since 11/11 (cultures negative) CT chest/ab/pelvis (11/08) with no evidence of infective process -- continue to monitor off ATB Postoperative shock 10/09/2015 04/22/2017 Overview: Shock, hypotension, fevers with increasing leukocytosis in setting of liver transplant, hepatopulmonary syndrome, ARDS, hypoxia. Profound hypoxia requiring nitric oxide therapy. Required low dose levo for BP support, now off. Concern for sepsis, blood cultures negative to date, vanco and zosyn started empirically 10/08. Procalcitonin 1.06. Lacate 1.8 -- Follow cultures -- continue vanco and zosyn -- levo for BP support (avoid fluid boluses if hypotensive) Electrolyte and fluid disorder 10/07/2015 0 04/22/2017 Overview: Hypomagnesemia repleted, hyperphos -- monitor and replete lytes daily -- increase daily PO mag oxide to 800 mg TID New onset seizure 10/05/2015 11/22/2019 Overview: Seizure activity 10/05, BEM supported the dx of cortical dysfunction in the left hemisphere with potential epileptogenicity in the left fronto-central region CT head negative for acute process, neurology consulted, loaded with Keppra Currently alert, follows commands -- weaned to Keppra 500mg bid -- neurology recommending follow up with epilepsy as outpatient ARDS (adult respiratory distress syndrome) 10/0504/22/2017 Overview: Hx of hepatopulmonary syndrome, pulmonary sarcoidosis requiring home O2 6-10 liters Pulmonary HTN with ~45% shunt. Pre-op PaO2 ~55 on RA CXR now with bilateral fluffy infiltrates / ARDS w/ pulmonary edema Desaturates with movement, turning, suctioning. Space = 60% today, with compliance ~45 -- maintain aggressive vent support (100% FiO2, wean PEEP is able as higher PEEP to increase shunt) -- lung protective strategies - Vt 6ml/kg ideal body weight (~350ml) -- trach on hold while unstable -- lasix TID -- Continue Nitric oxide -- increased I:E ratio -- avoid fluid boluses for hypotension - use pressors if needed -- sputum sent for culture Postoperative anemia due to acute blood loss 04/22/2017 Overview: S/P liver transplant with EBL 17 L c/b thrombocytopenia, coagulopahty and OP bleeding requiring intra-op nasal and pharyngeal packing Last transfused 10/08 2U PRBCs. 10/10: ENT removed nasal merocel. Clots in both nasopharyxes. No reinsertion of nasal tubes. -- monitor CBC and coags -- transfuse as required Agitation requiring sedation protocol 10/05/2015 04/22/2017 Overview: Required prolonged neuromuscular blockade with deep sedation secondary to increased WOB, breath stacking and hypoxia After discontinuation, he has had difficultly controlling agitation, likely opioid withdrawl. Had required precedex, fentanyl patch, prn haldol, seroquel Currently on seroquel, fentanyl patch Has been awake and alert, very cooperative -- continue on decreased TID seroquel dosing of 25mg TID and 150 mg qHS -- continue with fentanyl patch Acute post-operative pain 10/05/20152016 Overview: Was on prolonged fentanyl infusion d/t vent asynchrony, pain from liver tx Now transitioned to patch, infusion stopped 11/13 -- continue fentanyl patch (100mcg) Renal insufficiency 10/05/2015 10/08/2015 Overview: Secondary to hypotension Baseline Scr 0.66, now down to 0.83 Making good UO -- monitor renal indices Stress hyperglycemia 10/05/2015 04/22/2017 Overview: -- Adequate glycemic control with SSI Moderate protein-calorie malnutrition 10/05/2015 04/22/2017 Overview: Tolerating goal tube feeds Osmolite 1.2 @ 70 Prealbumin 26, transferrin 185 -- continue TF with fiber and beneprotien and full liquid diet -- nutrition following Abdominal distension 09/12/2015 04/22/2017 Overview: - concerning given weight gain of 30 lb from 09/04 - CT abdomen on last admission showed tissue edema> ascites, concern for third spacing in the abdominal wall tissue - no evidence of active infection, however, currently pancytopenia - was taking Lasix 20 mg PO every other day and spironolactone 50 mg PO daily - Liver vascular U/S demonstrates patent vasculature Plan - diuresis with Lasix 40 mg PO BID and spironolactone 100 mg PO daily - paracentesis as needed for respiratory function Liver transplant candidate 08/17/201504/22 Pain disorder with psychological factors 015 12/23/2021 Hyperammonemia 07/20/2015 04/22/2017 SUMMARY 06/14/2015 09/12/2015 Overview: Mr. 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 SOB (shortness of breath) 06/14/20152016 Overview: Started after dry run Possibly irritated by catheter? Systolic murmur also heard Chest x-ray and CT PE negative Currently at baseline New valvular lesion vs clot? -Echocardiogram -Doppler study -Observe for now Hepatic cirrhosis 06/14/2015 04/22/2017 Overview: #Cirrhosis -Continue lactulose, rifaximin -Continue aldactone Infection of other external stoma of urinary tra ct 05/17/2015 04/22/2017 UTI (lower urinary tract infection) 04/08/2015 04/22/2017 Overview: Was complaining of dysuria. UA positive with leukoesterase and Was started of ceftriaxone at OSH. Received 2 dosages here yesterday and one today. Will finish treatment for complicated UTI at home with cipro 500BID Hepatic encephalopathy 04/08/2015 7 Overview: On lactulose zinc Rifaximin Fever, low grade 11/03/2014 04/22/2017 Overview: Low grade fever on presentation UA clean Plan - Blood cx ngtd - afebrile since SUMMARY 08/31/2014 07/24/2016 Overview: The patient is a 50 yo male with a past medical history of HCV/ETOH Liver Cirrhosis c/b hepatopulmonary syndrome, hypersplenism, HE, Grade I EV, pulmonary sarcoidosis who presents with acute weight gain, abdominal distension, and SOB Fever and chills 08/31/2014 04/22/2017 Overview: Tmax 38.7 this AM; pt reports recent history of tooth extraction One time fever yesterday Received 2 time cefazolin after PFO closure. Plan: -UA, BCxx2 - NG till now -will hold off on abx for now and observe Retained dental root 08/15/2014 12/23/2021 Hepatopulmonary syndrome 03/12/2014 018 Overview: History of hepatopulmonary syndrome with ~45.2% shunt, pulmonary sarcoidosis requiring home O2 6-10 liters and mild pulmonary HTN Preop PaO2 ~55 on RA Profound hypoxia postoperatively requiring max vent support with high PEEP, heavy sedation/paralytics, flolan, nitric oxide (off since 10/26) Course c/b Right lung Pneumothorax, resp failure requiring trach 11/01 Decompensation 11/04 secondary to narcotic withdrawal +/- sepsis-->Drastically improved with fentanyl infusion, ATB. Updated echo 11/15 with EF 55%, normal RV Currently doing great, on continuous trach collar with passy etta valve, and diet -- Goal sats 85% -- Continue TC, PMV, OOB Bicytopenia 03/12/2014 04/22/2017 Overview: He has plat count of 20k and WCC of around 1000 His neutropenia is likely 2/2 to INF His thrombocytopenia is likley 2/2 to his cirrhosis Plan: Watch, transfuse plats if <10k or bleeding Pancytopenia 03/11/2014 03/12/2014 Hypoxemia 03/11/2014 10/15/2015 Overview: Due to underlying HPS Now on 100% Fio2 with last PaO2 60, Nitric oxide started 10/08, at 40 PPM. O2 sats maintaining in 80s CTS consulted for ECMO evaluation -- Given profound thrombocytopenia and grave condition ECMO not recommended -- Continue nitric oxide -- lung protective ventilation -- increased I:E ratio (at 2.4:1), paralyze with rocuronium if needed -- goal of O2 sats in 70s permissible COPD (chronic obstructive pulmonary disease) 03/12/2014 Coagulopathy 03/11/2014 04/22/2017 Syncope 01/03/2014 04/22/2017 Epididymitis 11/24/2013 04/22/2017 Testalgia 11/24/2013 04/22/2017 Thrombocytopenia 08/20/2009 04/22/2017 Overview: Platelets 96k today, received platelets 10/11 prior to liver biopsy. no obvious bleeding -- monitor CBC, coags -- transfuse as required -- monitor for bleeding -- transfuse plts prior to invasive procedures Hepatitis C 08/20/2009 11/03/2014 Cirrhosis 04/22/2017 Overview: Secondary to alcohol use and HCV complicated by ascites, PSE (on lactulose, rifaximin) and hepatopulmonary syndrome on home O2 s/p OLT on 10/03/15 Concern for rejection (humoral), now s/p thymo, IVIG, plasmapheresis 10/15 and 2/ completed -hydrocortisone (switched from prednisone) now tapering down - MMF - FK documented as of this encounter (statuses as of 06/12/2022) [facility] History of Past illness Narrative* Problem Noted Date Resolved Date Hilar adenopathy 07/09/2018 08/19/2018 Last Assessment & Plan: Assessment: CT A/P on Admission shows Significant subcarinal and bilateral hilar adenopathy on the lower images through the chest. Lymphoproliferative disease suspected He does have a hx of sarcoid But no recent CT chest/CXR to compare. CT chest shows SPLENOMEGALY AND NUMEROUS ENLARGED MEDIASTINAL AND BILATERAL HILAR LYMPH NODES, INCREASED IN SIZE SINCE 2016. THE DIFFERENTIAL DIAGNOSIS INCLUDES SARCOIDOSIS AND LYMPHOPROLIFERATIVE DISEASE. PLAN: -Transfer to [facility] for further evaluation by oncology per ID recommedation. Nausea & vomiting 07/09/2018 07/28/2018 Last Assessment & Plan: Assessment: Patient notes off and on nausea for one month. Also notes worsening control of his reflux symptoms. CTA/P shows significant subcarinal and bilateral hilar adenopathy and new subtle intrahepatic biliary dilatation and common duct dilatation . Obstructing lesion must be excluded, however.Splenic enlargement PLAN: -Increase protonix to 40mg bid -Zofran PRN for N/V -GI consult pending. Cellulitis 07/09/2018 07/13/2018 Abdominal wall cellulitis 12/01/20172021 Last Assessment & Plan: Assessment: Second Episode this year . Likely due to his constant picking of the skin of his abdomen. He is HDS, no leucocytosis,crp 2.6,ESR 2,lactate normal CTA/P shows no abscess nor cellulitis . PLAN: Continue ancef started in the ER. Continue bactrim as scheduled for prophylaxis - due to hx of liver transplant PRN morphine for pain. ID consult (because of his immunocompromised state - hx of liver transplant/ommunesuppresants) Wound care consult (re:open areas on his abdomen due to his scratching) F/up on blood Culture Ventral hernia without obstruction or gangrene 0 03/24/2017 04/22/2017 Lower abdominal pain 07/23/2016 04/22/2017 Opioid withdrawal 11/09/2015 04/22/2017 Overview: Thursday with opioid withdrawal after attempted discontinuation of fentanyl Resolution of symptoms after re-starting fentanyl -- Continue fentanyl patch with prn IVP fentanyl for breakthrough pain -- Drip stopped 3/2 Respiratory failure, post-operative 10/22/2015 04/22/2017 Overview: Pt intubated for OLT on 10/03/15, remained intubated d/t severe hypoxia (see hepato pulmonary syndrome) 11/01 s/p tracheostomy Very weak and debilitated, profound ICU neuromyopathy Currently improved, toleratingTC, passy etta valve capped -- continue trach collar, PMV Acute pneumothorax 10/17/2015 04/22/2017 Prerenal azotemia 10/17/2015 10/24/2015 Overview: Bun/ Creat ratio now trending down. Hypernatremia resolved -- trend Renal indices -- lasix 20 mg q8 Acute pulmonary embolism 10/17/2015 017 Spontaneous pneumothorax 10/16/2015 017 Overview: Pneumothorax discovered on CT chest 10/15 in setting of high PEEP requirements s/p chest tube placements x2 Last CT removed 11/02 CXR with small persistent Rt. Apical pneumothorax- not appeciated on today's CXR --continue to follow daily CXRs Pneumonia, organism unspecified([id number]) 10/16/2015 11/02/2015 Overview: CT of chest 10/15 shows RLL consolidation suspicious for pneumonia. Completed course of vanco and meropenem continuing micfungin. Sputum culture from 10/09 shows normal respiratory erum. legionella urinary antigen negative --ID following Sepsis due to other etiology 10/15/201505/2017 Overview: Has completed empiric courses of antibiotics for persistent low grade fevers and acute decompensation No obvious source of infection identified per extensive ID workup Vanco d/c 10/25, Meropenem d/c 10/26 11/04 Acute decompensation (fevers 11/05) empiric pip-tazo, vanc, micafungin added--> off since 11/11 (cultures negative) CT chest/ab/pelvis (11/08) with no evidence of infective process -- continue to monitor off ATB Postoperative shock 10/09/2015 04/22/2017 Overview: Shock, hypotension, fevers with increasing leukocytosis in setting of liver transplant, hepatopulmonary syndrome, ARDS, hypoxia. Profound hypoxia requiring nitric oxide therapy. Required low dose levo for BP support, now off. Concern for sepsis, blood cultures negative to date, vanco and zosyn started empirically 10/08. Procalcitonin 1.06. Lacate 1.8 -- Follow cultures -- continue vanco and zosyn -- levo for BP support (avoid fluid boluses if hypotensive) Electrolyte and fluid disorder 10/07/2015 0 04/22/2017 Overview: Hypomagnesemia repleted, hyperphos -- monitor and replete lytes daily -- increase daily PO mag oxide to 800 mg TID New onset seizure 10/05/2015 11/22/2019 Overview: Seizure activity 10/05, BEM supported the dx of cortical dysfunction in the left hemisphere with potential epileptogenicity in the left fronto-central region CT head negative for acute process, neurology consulted, loaded with Keppra Currently alert, follows commands -- weaned to Keppra 500mg bid -- neurology recommending follow up with epilepsy as outpatient ARDS (adult respiratory distress syndrome) 10/0504/22/2017 Overview: Hx of hepatopulmonary syndrome, pulmonary sarcoidosis requiring home O2 6-10 liters Pulmonary HTN with ~45% shunt. Pre-op PaO2 ~55 on RA CXR now with bilateral fluffy infiltrates / ARDS w/ pulmonary edema Desaturates with movement, turning, suctioning. Space = 60% today, with compliance ~45 -- maintain aggressive vent support (100% FiO2, wean PEEP is able as higher PEEP to increase shunt) -- lung protective strategies - Vt 6ml/kg ideal body weight (~350ml) -- trach on hold while unstable -- lasix TID -- Continue Nitric oxide -- increased I:E ratio -- avoid fluid boluses for hypotension - use pressors if needed -- sputum sent for culture Postoperative anemia due to acute blood loss 04/22/2017 Overview: S/P liver transplant with EBL 17 L c/b thrombocytopenia, coagulopahty and OP bleeding requiring intra-op nasal and pharyngeal packing Last transfused 10/08 2U PRBCs. 10/10: ENT removed nasal merocel. Clots in both nasopharyxes. No reinsertion of nasal tubes. -- monitor CBC and coags -- transfuse as required Agitation requiring sedation protocol 10/05/2015 04/22/2017 Overview: Required prolonged neuromuscular blockade with deep sedation secondary to increased WOB, breath stacking and hypoxia After discontinuation, he has had difficultly controlling agitation, likely opioid withdrawl. Had required precedex, fentanyl patch, prn haldol, seroquel Currently on seroquel, fentanyl patch Has been awake and alert, very cooperative -- continue on decreased TID seroquel dosing of 25mg TID and 150 mg qHS -- continue with fentanyl patch Acute post-operative pain 10/05/20152016 Overview: Was on prolonged fentanyl infusion d/t vent asynchrony, pain from liver tx Now transitioned to patch, infusion stopped 11/13 -- continue fentanyl patch (100mcg) Renal insufficiency 10/05/2015 10/08/2015 Overview: Secondary to hypotension Baseline Scr 0.66, now down to 0.83 Making good UO -- monitor renal indices Stress hyperglycemia 10/05/2015 04/22/2017 Overview: -- Adequate glycemic control with SSI Moderate protein-calorie malnutrition 10/05/2015 04/22/2017 Overview: Tolerating goal tube feeds Osmolite 1.2 @ 70 Prealbumin 26, transferrin 185 -- continue TF with fiber and beneprotien and full liquid diet -- nutrition following Abdominal distension 09/12/2015 04/22/2017 Overview: - concerning given weight gain of 30 lb from 09/04 - CT abdomen on last admission showed tissue edema> ascites, concern for third spacing in the abdominal wall tissue - no evidence of active infection, however, currently pancytopenia - was taking Lasix 20 mg PO every other day and spironolactone 50 mg PO daily - Liver vascular U/S demonstrates patent vasculature Plan - diuresis with Lasix 40 mg PO BID and spironolactone 100 mg PO daily - paracentesis as needed for respiratory function Liver transplant candidate 08/17/201504/22 Pain disorder with psychological factors 015 12/23/2021 Hyperammonemia 07/20/2015 04/22/2017 SUMMARY 06/14/2015 09/12/2015 Overview: Mr. 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 SOB (shortness of breath) 06/14/20152016 Overview: Started after dry run Possibly irritated by catheter? Systolic murmur also heard Chest x-ray and CT PE negative Currently at baseline New valvular lesion vs clot? -Echocardiogram -Doppler study -Observe for now Hepatic cirrhosis 06/14/2015 04/22/2017 Overview: #Cirrhosis -Continue lactulose, rifaximin -Continue aldactone Infection of other external stoma of urinary tra ct 05/17/2015 04/22/2017 UTI (lower urinary tract infection) 04/08/2015 04/22/2017 Overview: Was complaining of dysuria. UA positive with leukoesterase and Was started of ceftriaxone at OSH. Received 2 dosages here yesterday and one today. Will finish treatment for complicated UTI at home with cipro [id number] Hepatic encephalopathy 04/08/2015 7 Overview: On lactulose zinc Rifaximin Fever, low grade 11/03/2014 04/22/2017 Overview: Low grade fever on presentation UA clean Plan - Blood cx ngtd - afebrile since SUMMARY 08/31/2014 07/24/2016 Overview: The patient is a 50 yo male with a past medical history of HCV/ETOH Liver Cirrhosis c/b hepatopulmonary syndrome, hypersplenism, HE, Grade I EV, pulmonary sarcoidosis who presents with acute weight gain, abdominal distension, and SOB Fever and chills 08/31/2014 04/22/2017 Overview: Tmax 38.7 this AM; pt reports recent history of tooth extraction One time fever yesterday Received 2 time cefazolin after PFO closure. Plan: -UA, BCxx2 - NG till now -will hold off on abx for now and observe Retained dental root 08/15/2014 12/23/2021 Hepatopulmonary syndrome 03/12/2014 018 Overview: History of hepatopulmonary syndrome with ~45.2% shunt, pulmonary sarcoidosis requiring home O2 6-10 liters and mild pulmonary HTN Preop PaO2 ~55 on RA Profound hypoxia postoperatively requiring max vent support with high PEEP, heavy sedation/paralytics, flolan, nitric oxide (off since 10/26) Course c/b Right lung Pneumothorax, resp failure requiring trach 11/01 Decompensation 11/04 secondary to narcotic withdrawal +/- sepsis-->Drastically improved with fentanyl infusion, ATB. Updated echo 11/15 with EF 55%, normal RV Currently doing great, on continuous trach collar with passy etta valve, and diet -- Goal sats 85% -- Continue TC, PMV, OOB Bicytopenia 03/12/2014 04/22/2017 Overview: He has plat count of 20k and WCC of around 1000 His neutropenia is likely 2/2 to INF His thrombocytopenia is likley 2/2 to his cirrhosis Plan: Watch, transfuse plats if <10k or bleeding Pancytopenia 03/11/2014 03/12/2014 Hypoxemia 03/11/2014 10/15/2015 Overview: Due to underlying HPS Now on 100% Fio2 with last PaO2 60, Nitric oxide started 10/08, at 40 PPM. O2 sats maintaining in 80s CTS consulted for ECMO evaluation -- Given profound thrombocytopenia and grave condition ECMO not recommended -- Continue nitric oxide -- lung protective ventilation -- increased I:E ratio (at 2.4:1), paralyze with rocuronium if needed -- goal of O2 sats in 70s permissible COPD (chronic obstructive pulmonary disease) 03/12/2014 Coagulopathy 03/11/2014 04/22/2017 Syncope 01/03/2014 04/22/2017 Epididymitis 11/24/2013 04/22/2017 Testalgia 11/24/2013 04/22/2017 Thrombocytopenia 08/20/2009 04/22/2017 Overview: Platelets 96k today, received platelets 10/11 prior to liver biopsy. no obvious bleeding -- monitor CBC, coags -- transfuse as required -- monitor for bleeding -- transfuse plts prior to invasive procedures Hepatitis C 08/20/2009 11/03/2014 Cirrhosis 04/22/2017 Overview: Secondary to alcohol use and HCV complicated by ascites, PSE (on lactulose, rifaximin) and hepatopulmonary syndrome on home O2 s/p OLT on 10/03/15 Concern for rejection (humoral), now s/p thymo, IVIG, plasmapheresis 10/15 and 10/16 completed -hydrocortisone (switched from prednisone) now tapering down - MMF - FK documented as of this encounter (statuses as of 06/23/2022) [facility] History of Past illness Narrative* Problem Noted Date Resolved Date Hilar adenopathy 07/09/2018 08/19/2018 Last Assessment & Plan: Assessment: CT A/P on Admission shows Significant subcarinal and bilateral hilar adenopathy on the lower images through the chest. Lymphoproliferative disease suspected He does have a hx of sarcoid But no recent CT chest/CXR to compare. CT chest shows SPLENOMEGALY AND NUMEROUS ENLARGED MEDIASTINAL AND BILATERAL HILAR LYMPH NODES, INCREASED IN SIZE SINCE 2016. THE DIFFERENTIAL DIAGNOSIS INCLUDES SARCOIDOSIS AND LYMPHOPROLIFERATIVE DISEASE. PLAN: -Transfer to [facility] for further evaluation by oncology per ID recommedation. Nausea & vomiting 07/09/2018 07/28/2018 Last Assessment & Plan: Assessment: Patient notes off and on nausea for one month. Also notes worsening control of his reflux symptoms. CTA/P shows significant subcarinal and bilateral hilar adenopathy and new subtle intrahepatic biliary dilatation and common duct dilatation . Obstructing lesion must be excluded, however.Splenic enlargement PLAN: -Increase protonix to 40mg bid -Zofran PRN for N/V -GI consult pending. Cellulitis 07/09/2018 07/13/2018 Abdominal wall cellulitis 12/01/20172021 Last Assessment & Plan: Assessment: Second Episode this year . Likely due to his constant picking of the skin of his abdomen. He is HDS, no leucocytosis,crp 2.6,ESR 2,lactate normal CTA/P shows no abscess nor cellulitis . PLAN: Continue ancef started in the ER. Continue bactrim as scheduled for prophylaxis - due to hx of liver transplant PRN morphine for pain. ID consult (because of his immunocompromised state - hx of liver transplant/ommunesuppresants) Wound care consult (re:open areas on his abdomen due to his scratching) F/up on blood Culture Ventral hernia without obstruction or gangrene 0 03/24/2017 04/22/2017 Lower abdominal pain 07/23/2016 04/22/2017 Opioid withdrawal 11/09/2015 04/22/2017 Overview: Thursday with opioid withdrawal after attempted discontinuation of fentanyl Resolution of symptoms after re-starting fentanyl -- Continue fentanyl patch with prn IVP fentanyl for breakthrough pain -- Drip stopped 3/2 Respiratory failure, post-operative 10/22/2015 04/22/2017 Overview: Pt intubated for OLT on 10/03/15, remained intubated d/t severe hypoxia (see hepato pulmonary syndrome) 11/01 s/p tracheostomy Very weak and debilitated, profound ICU neuromyopathy Currently improved, toleratingTC, passy etta valve capped -- continue trach collar, PMV Acute pneumothorax 10/17/2015 04/22/2017 Prerenal azotemia 10/17/2015 10/24/2015 Overview: Bun/ Creat ratio now trending down. Hypernatremia resolved -- trend Renal indices -- lasix 20 mg q8 Acute pulmonary embolism 10/17/2015 017 Spontaneous pneumothorax 10/16/2015 017 Overview: Pneumothorax discovered on CT chest 10/15 in setting of high PEEP requirements s/p chest tube placements x2 Last CT removed 11/02 CXR with small persistent Rt. Apical pneumothorax- not appeciated on today's CXR --continue to follow daily CXRs Pneumonia, organism unspecified(486) 10/16/2015 11/02/2015 Overview: CT of chest 10/15 shows RLL consolidation suspicious for pneumonia. Completed course of vanco and meropenem continuing micfungin. Sputum culture from 10/09 shows normal respiratory erum. legionella urinary antigen negative --ID following Sepsis due to other etiology 10/15/201505/2017 Overview: Has completed empiric courses of antibiotics for persistent low grade fevers and acute decompensation No obvious source of infection identified per extensive ID workup Vanco d/c 10/25, Meropenem d/c 10/26 11/04 Acute decompensation (fevers 11/05) empiric pip-tazo, vanc, micafungin added--> off since 11/11 (cultures negative) CT chest/ab/pelvis (11/08) with no evidence of infective process -- continue to monitor off ATB Postoperative shock 10/09/2015 04/22/2017 Overview: Shock, hypotension, fevers with increasing leukocytosis in setting of liver transplant, hepatopulmonary syndrome, ARDS, hypoxia. Profound hypoxia requiring nitric oxide therapy. Required low dose levo for BP support, now off. Concern for sepsis, blood cultures negative to date, vanco and zosyn started empirically 10/08. Procalcitonin 1.06. Lacate 1.8 -- Follow cultures -- continue vanco and zosyn -- levo for BP support (avoid fluid boluses if hypotensive) Electrolyte and fluid disorder 10/07/2015 0 04/22/2017 Overview: Hypomagnesemia repleted, hyperphos -- monitor and replete lytes daily -- increase daily PO mag oxide to 800 mg TID New onset seizure 10/05/2015 11/22/2019 Overview: Seizure activity 10/05, BEM supported the dx of cortical dysfunction in the left hemisphere with potential epileptogenicity in the left fronto-central region CT head negative for acute process, neurology consulted, loaded with Keppra Currently alert, follows commands -- weaned to Keppra 500mg bid -- neurology recommending follow up with epilepsy as outpatient ARDS (adult respiratory distress syndrome) 10/0504/22/2017 Overview: Hx of hepatopulmonary syndrome, pulmonary sarcoidosis requiring home O2 6-10 liters Pulmonary HTN with ~45% shunt. Pre-op PaO2 ~55 on RA CXR now with bilateral fluffy infiltrates / ARDS w/ pulmonary edema Desaturates with movement, turning, suctioning. Space = 60% today, with compliance ~45 -- maintain aggressive vent support (100% FiO2, wean PEEP is able as higher PEEP to increase shunt) -- lung protective strategies - Vt 6ml/kg ideal body weight (~350ml) -- trach on hold while unstable -- lasix TID -- Continue Nitric oxide -- increased I:E ratio -- avoid fluid boluses for hypotension - use pressors if needed -- sputum sent for culture Postoperative anemia due to acute blood loss 04/22/2017 Overview: S/P liver transplant with EBL 17 L c/b thrombocytopenia, coagulopahty and OP bleeding requiring intra-op nasal and pharyngeal packing Last transfused 10/08 2U PRBCs. 10/10: ENT removed nasal merocel. Clots in both nasopharyxes. No reinsertion of nasal tubes. -- monitor CBC and coags -- transfuse as required Agitation requiring sedation protocol 10/05/2015 04/22/2017 Overview: Required prolonged neuromuscular blockade with deep sedation secondary to increased WOB, breath stacking and hypoxia After discontinuation, he has had difficultly controlling agitation, likely opioid withdrawl. Had required precedex, fentanyl patch, prn haldol, seroquel Currently on seroquel, fentanyl patch Has been awake and alert, very cooperative -- continue on decreased TID seroquel dosing of 25mg TID and 150 mg qHS -- continue with fentanyl patch Acute post-operative pain 10/05/20152016 Overview: Was on prolonged fentanyl infusion d/t vent asynchrony, pain from liver tx Now transitioned to patch, infusion stopped 11/13 -- continue fentanyl patch (100mcg) Renal insufficiency 10/05/2015 10/08/2015 Overview: Secondary to hypotension Baseline Scr 0.66, now down to 0.83 Making good UO -- monitor renal indices Stress hyperglycemia 10/05/2015 04/22/2017 Overview: -- Adequate glycemic control with SSI Moderate protein-calorie malnutrition 10/05/2015 04/22/2017 Overview: Tolerating goal tube feeds Osmolite 1.2 @ 70 Prealbumin 26, transferrin 185 -- continue TF with fiber and beneprotien and full liquid diet -- nutrition following Abdominal distension 09/12/2015 04/22/2017 Overview: - concerning given weight gain of 30 lb from 09/04 - CT abdomen on last admission showed tissue edema> ascites, concern for third spacing in the abdominal wall tissue - no evidence of active infection, however, currently pancytopenia - was taking Lasix 20 mg PO every other day and spironolactone 50 mg PO daily - Liver vascular U/S demonstrates patent vasculature Plan - diuresis with Lasix 40 mg PO BID and spironolactone 100 mg PO daily - paracentesis as needed for respiratory function Liver transplant candidate 08/17/201504/22 Pain disorder with psychological factors 015 12/23/2021 Hyperammonemia 07/20/2015 04/22/2017 SUMMARY 06/14/2015 09/12/2015 Overview: Mr. 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 SOB (shortness of breath) 06/14/20152016 Overview: Started after dry run Possibly irritated by catheter? Systolic murmur also heard Chest x-ray and CT PE negative Currently at baseline New valvular lesion vs clot? -Echocardiogram -Doppler study -Observe for now Hepatic cirrhosis 06/14/2015 04/22/2017 Overview: #Cirrhosis -Continue lactulose, rifaximin -Continue aldactone Infection of other external stoma of urinary tra ct 05/17/2015 04/22/2017 UTI (lower urinary tract infection) 04/08/2015 04/22/2017 Overview: Was complaining of dysuria. UA positive with leukoesterase and Was started of ceftriaxone at OSH. Received 2 dosages here yesterday and one today. Will finish treatment for complicated UTI at home with cipro 500BID Hepatic encephalopathy 04/08/2015 7 Overview: On lactulose zinc Rifaximin Fever, low grade 11/03/2014 04/22/2017 Overview: Low grade fever on presentation UA clean Plan - Blood cx ngtd - afebrile since SUMMARY 08/31/2014 07/24/2016 Overview: The patient is a 50 yo male with a past medical history of HCV/ETOH Liver Cirrhosis c/b hepatopulmonary syndrome, hypersplenism, HE, Grade I EV, pulmonary sarcoidosis who presents with acute weight gain, abdominal distension, and SOB Fever and chills 08/31/2014 04/22/2017 Overview: Tmax 38.7 this AM; pt reports recent history of tooth extraction One time fever yesterday Received 2 time cefazolin after PFO closure. Plan: -UA, BCxx2 - NG till now -will hold off on abx for now and observe Retained dental root 08/15/2014 12/23/2021 Hepatopulmonary syndrome 03/12/2014 018 Overview: History of hepatopulmonary syndrome with ~45.2% shunt, pulmonary sarcoidosis requiring home O2 6-10 liters and mild pulmonary HTN Preop PaO2 ~55 on RA Profound hypoxia postoperatively requiring max vent support with high PEEP, heavy sedation/paralytics, flolan, nitric oxide (off since 10/26) Course c/b Right lung Pneumothorax, resp failure requiring trach 11/01 Decompensation 11/04 secondary to narcotic withdrawal +/- sepsis-->Drastically improved with fentanyl infusion, ATB. Updated echo 11/15 with EF 55%, normal RV Currently doing great, on continuous trach collar with passy etta valve, and diet -- Goal sats 85% -- Continue TC, PMV, OOB Bicytopenia 03/12/2014 04/22/2017 Overview: He has plat count of 20k and WCC of around 1000 His neutropenia is likely 2/2 to INF His thrombocytopenia is likley 2/2 to his cirrhosis Plan: Watch, transfuse plats if <10k or bleeding Pancytopenia 03/11/2014 03/12/2014 Hypoxemia 03/11/2014 10/15/2015 Overview: Due to underlying HPS Now on 100% Fio2 with last PaO2 60, Nitric oxide started 10/08, at 40 PPM. O2 sats maintaining in 80s CTS consulted for ECMO evaluation -- Given profound thrombocytopenia and grave condition ECMO not recommended -- Continue nitric oxide -- lung protective ventilation -- increased I:E ratio (at 2.4:1), paralyze with rocuronium if needed -- goal of O2 sats in 70s permissible COPD (chronic obstructive pulmonary disease) 03/12/2014 Coagulopathy 03/11/2014 04/22/2017 Syncope 01/03/2014 04/22/2017 Epididymitis 11/24/2013 04/22/2017 Testalgia 11/24/2013 04/22/2017 Thrombocytopenia 08/20/2009 04/22/2017 Overview: Platelets 96k today, received platelets 10/11 prior to liver biopsy. no obvious bleeding -- monitor CBC, coags -- transfuse as required -- monitor for bleeding -- transfuse plts prior to invasive procedures Hepatitis C 08/20/2009 11/03/2014 Cirrhosis 04/22/2017 Overview: Secondary to alcohol use and HCV complicated by ascites, PSE (on lactulose, rifaximin) and hepatopulmonary syndrome on home O2 s/p OLT on 10/03/15 Concern for rejection (humoral), now s/p thymo, IVIG, plasmapheresis 10/15 and 10/16 completed -hydrocortisone (switched from prednisone) now tapering down - MMF - FK documented as of this encounter (statuses as of 07/01/2022) [facility] CenterConsult noteSummary and PlanCardiology consulted for chest pain. Troy is a 60 y/o M with past medical history significant for cigarette smoker, depression, GERD, hypertension, hyperlipidemia, PTSD with mixed anxiety depressive disorder, PFO, previously noted paroxysmal atrial fibrillation on outpatient records however patient denies this (noted to occur during liver transplant), questionable history of sarcoidosis, 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 Today pain got so severe, radiated to both arms and came to the ER for further evaluation.He also states that most recent chest pains associated with nausea and diaphoresis. Describes chest pains as dull and achy. States he has not had any more chest pains since admission. Chest pain:-Overall patient reports chest pains that are cardiac in nature. -Troponin levels 35, 38, 46, 52, 49, overall flat trend.-Continue with aspirin and BB. 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 HTN:-BP is elevated on admission and remains elevated, at this time, uptitrate meds.-Continue to monitor. Alcoholic cirrhosis/Chronic Hep C:-Patientreports sober since transplant, s/p liver transplant in 2016. Atrial Fibrillation:-Remote history, n oted during transplant in 2016. -Patient denies any symptoms.-Telemetry review demonstrates SR, rates 60's-70's.Acute Problems1) Chest pain [R07.9] (Added: 04/06/2025)2) High troponin I level [R77.8] (Added: 04/06/2025)Chronic Problems1) Adjustment disorder with mixed anxiety and depressed mood [F43.23] (Diagnosed: 05/23/2014, Present on Admission)2) Alcoholic cirrhosis [K70.30] (Diagnosed: 04/06/2025, Present on Admission)3) Cholangiectasis [K83.8] (Diagnosed: 07/09/2018, Present on Admission)4) Chronic constipation [K59.09] (Diagnosed: 04/06/2025, Present on Admission)5) Chronic hepatitis C [B18.2] (Diagnosed: 05/17/2015, Present on Admission)6) Chronic hypoxemic respiratory failure [J96.11] (Diagnosed: 04/06/2025, Present on Admission)7) Chronic obstructive pulmonary disease [J44.9] (Diagnosed:03/11/2014, Present on Admission)8) Deformity of foot [M21.969] (Diagnosed: 04/06/2025, Present on Admission)9) Depressive disorder [F32.A] (Diagnosed: 04/06/2025, Present on Admission)10) Erythrocytosis [D75.1] (Diagnosed: 04/06/2025, Present on Admission)11) Finding of salivary apparatus (Diagnosed: 04/06/2025, Present on Admission)12) Gastroesophageal reflux disease [K21.9] (Diagnosed: 07/09/2018, Present on Admission)13) H/O: liver recipient [Z94.4] (Diagnosed: 04/06/2025, Present on Admission)14) Hypertensive disorder [I10] (Diagnosed: 10/24/2016, Present on Admission)15) Hypothyroidism [E03.9] (Diagnosed: 09/12/2015, Present on Admission)16) Mixed hyperlipidemia [E78.2] (Diagnosed: 11/22/2019, Present on Admission)17) Obese class II [E66.9] (Diagnosed: 07/09/2018, Present on Admission)18) Osteoporosis [M81.0] (Diagnosed: 12/28/2020, Present on Admission)19) Paroxysmal atrial fibrillation [I48.0] (Diagnosed: 10/15/2015, Present on Admission)20) Patent foramen ovale [Q21.12] (Diagnosed: 07/11/2014, Present on Admission)21) Peripherally inserted central venous catheter in situ [Z95.828] (Diagnosed: 04/06/2025, Present on Admission)22) Posttraumatic stress disorder [F43.10] (Diagnosed: 11/04/2021, Present on Admission)23) Psoriasis [L40.9] (Diagnosed: 04/06/2025, Present on Admission)24) Sarcoidosis [D86.9] (Diagnosed: 04/17/2015, Present on Admission)25) Chronic alcoholism in remission [F10.21] (Diagnosed: 04/06/2025)Surgery Procedure History1) Transplantation of liver (2015)Implants1) Surgical meshReason for ConsultChest painConsulted ByBright Rincon is a 60 y/o M with past medical history significant for cigarette smoker, depression, GERD, hypertension, hyperlipidemia, PTSD with mixed anxiety depressive disorder, PFO, previously noted paroxysmal atrial fibrillationon outpatient records however patient denies this (noted to occur during liver transplant), question able history of sarcoidosis, alcoholism in remission with alcoholic liver cirrhosis status post liver transplant 2016 at [facility] and other comorbidities who presented to the ER for evaluation of chest pain.Patient states that for the past couple weeks he has been experiencing severe pressure- like substernal chest pain, seems to occur when he is active, relieved with rest, radiates to bilateral arms. Today pain got so severe, radiated to both arms and came to the ER for further evaluation.He also states that most recent chest pains associated with nausea and diaphoresis. Describes chest pains as dull and achy. States he has not had any more chest pains since admission.VitalsTemp: 98.0F, Location: OtherHeart Rate: 60, Position: UnknownBlood Pressure: 148/83, Position: Unknown, Location: UnknownRR: 16O2: 97% SaturationGlucose: 83.0Height: 170.18 cm (5 ft 7 in)Weight: 65.77 kg (145lbs 0 oz)BMI: 22.7BSA: 1.76 m2IBW: 66.1 kgIV: 1000Exam - Cardiology (Acute) GEN: Normals - No acutedistress, Well nourished Other findings - TMax: 98.2, Temp: 98.0, Heart Rate: 55, BP: 152/71, RR: 20, O2: 98% Saturation EYES: Normals - Normal conjunctiva ENT: Normals - Hearing grossly intact, Mucous membranes moist NECK: Normals - Trachea midline RESP: Normals - Relaxed respirations, Clear anteriorly, Clear posteriorly CV: Normals - Rhythm regular, Rate normal, No edema GI: Normals - Bowel sounds normal NEURO: Normals - Alert, Oriented x 3, Moves ext x 4 MS: Normals - Arms with normal range of motion PSYCH: Normals - Mood is appropriate, Mood is good SKIN: Normals - Warm and dry, No cyanosi sReview of Systems CONST: Normals - No fevers or chills Abnormals - Fatigue or malaise EYES: Normals - Negative or noted elsewhere ENT: Normals - Negative or noted elsewhere RESP: Normals - No cough,No wheezing Abnormals - Shortness of breath CV: Normals - No swelling in legs, No passing out Abnormals - Chest pain GI: Normals - No diarrhea, No abdominal pain Abnormals - Nausea or vomiting : Normals - Negative or noted elsewhere MS: Normals - Negative or noted elsewhere SKIN: Normals - Negative or noted elsewhere NEURO: Normals - Negative or noted elsewhere PSYCH: Normals - Negative or noted elsewhere ENDO: Normals - Negative or noted elsewhere HEME/LYMPH: Normals - Negative or noted elsewhereHome Medications1) Cholecalciferol Oral 1,000 units daily2) Garlic Oral 1 mg daily3) LisinoprilOral 5 mg daily4) Metoprolol Oral 24 hr Tab (Succinate) 25 mg daily5) Pantoprazole (Sodium) Oral Delayed Release 40 mg daily6) Paroxetine Oral 30 mg daily7) Tacrolimus Oral (Prograf) 1.5 mg every 12 hoursAllergieshydrocodone, Severe WhealLatex, Natural Rubber, Moderate Unknown reactionFamily History Father: Heart diseaseMother: Heart diseaseHomeResidence: HomeEn[facility]e services: NoneDME: CaneSocial HistoryTobacco Use Status: Former Type: Smoking (Non- electronic)Alcohol Use Status: Alcoholism in remissionSubstance Use Status: NeverChargesMedical Complexity: HighCPT Code: 31784 - Level 5 Initial Consu ltationReviewed LabsNa 138 (04-06-25)K 3.8 (04-06-25)Cl 105 (04-06-25)CO2 19 (04-06-25)Calcium 8.7 (04-06-25)Mg 2 (04-06-25)ANION GAP 14 (04-06-25)BUN 22.3 (04-06-25)Cr 0.95 (04-06-25)CrCl (Cockcroft-Gault Formula) 75 (04-06-25)GFR > 60 (04-06-25)BLOOD GLUCOSE 83 (04-06-25)WBC 5.4 (04-06-25)Hgb 15.4 (04-06-25)Hct 44.1 (04-06-25)PLT 109 (04-06-25)MCV 93 (04-06-25)MCHC 34.9 (04-06-25)TROPONIN T (HIGH SENSITIVITY) 49 (04-06-25)CKMB 6.2 (04-06-25)CPK 263 (04-06-25)Rel Index 2.4 (04-06-25)TSH 0.363 (04-06-25)HgA1C 5 (04-06-25)AST 32 (04-06-25)ALT 22 (04-06-25)T. Bilirubin 1 (04-06-25)Direct Bilirubin 0.4 (04-06-25)Indirect Bilirubin 0.6 (04-06-25)Alkaline Phosphatase 96 (04-06-25)Albumin 4.3 ( 04-06-25)T. Protein 7 (04-06-25)Total Cholesterol 206 (04-06-25)LDL 123 (04-06-25)HDL 63 (04-06-25)TG 101 (04-06-25)CHOL/HDL RATIO 3.27 (04-06-25)Reviewed Reports and StudiesInitial Evaluation Care Management (Acute) (04-06-25)EKG (04-06-25)Initial Note Hospital Medicine Team (Poonam Platt DO) (04-06-25)EKG (04-06-25)Emergency Visit (04-05-25)EKG (04-05-25)XR Chest 2V PA Lat (04-05-25)EKG (04-05-25) [facility] Work Phone: Evaluation note* Diagnosis Urinary tract infection without hematuria, site unspecified- [facility] Diagnosis Encounter for removal of peripherally inserted central catheter (PICC) [facility]* Diagnosis Other osteoporosis without current pathological fracture- Primary Non-ischemic cardiomyopathy (HCC) Other primary cardiomyopathies Essential hypertension Unspecified essential hypertension S/P liver transplant (HCC) Liver replaced by transplant [facility] Diagnosis Polycythemia- Primary Polycythemia vera Hypercalcemia [facility]* Diagnosis Dietary counseling- Primary Dietary surveillance and counseling Other osteoporosis without current pathological fracture Non-ischemic cardiomyopathy (HCC) Other primary cardiomyopathies Essential hypertension Unspecified essential hypertension S/P liver transplant (HCC) Liver replaced by transplant [facility] Diagnosis Anxiety with depression- Primary [facility]* Diagnosis Flank pain- Primary Abdominal pain, unspecified site Pyuria Other nonspecific finding on examination of urine Microscopic hematuria Essential hypertension Unspecified essential hypertension [facility] Diagnosis Cognitive impairment, mild, so stated Mild cognitive impairment, so stated [facility] Diagnosis Hypercalcemia- Primary [facility]* Diagnosis Neck pain- Primary Cervicalgia Paroxysmal atrial fibrillation (HCC) Atrial fibrillation Essential hypertension Unspecified essential hypertension S/P liver transplant (HCC) Liver replaced by transplant [facility] Liver replaced by transplant (HCC) Liver replaced by transplant [facility] Diagnosis Urinary frequency- Primary Urinary urgency Urgency of urination [facility] Diagnosis Liver replaced by transplant (HCC) Liver replaced by transplant [facility] Diagnosis Midline thoracic back pain, unspecified chronicity- Primary [facility]* Diagnosis Anxiety with depression- Primary [facility] Diagnosis Upper back pain- Primary Lumbar back pain Lumbago Chronic constipation Unspecified constipation Essential hypertension Unspecified essential hypertension Anxiety with depression documented [facility] this [facility]* Diagnosis Chronic bilateral thoracic back pain- Primary Chronic bilateral low back pain without sciatica Chronic neck pain Cervicalgia Adjustment disorder with mixed anxiety and depressed mood Anxiety with depression [facility] this [facility]* Diagnosis Paresthesia- Primary Disturbance of skin sensation Spasm Abnormal involuntary movements Neuromyopathy (HCC) Myoneural disorders, unspecified Essential hypertension Unspecified essential hypertension PTSD (post-traumatic stress disorder) Posttraumatic stress disorder documented in this [facility]* Diagnosis Pain in salivary gland region- Primary documented in this encounter [facility]* Diagnosis APPOINTMENT CANCELLED- Primary documented in this encounter [facility]* Diagnosis Neuromyopathy (HCC)- Primary Myoneural disorders, unspecified Need for influenza vaccination Need for prophylactic vaccination and inoculation against influenza Essential hypertension Unspecified essential hypertension S/P liver transplant (HCC) Liver replaced by transplant PTSD (post-traumatic stress disorder) Posttraumatic stress disorder documented in this encounter [facility]* Diagnosis Liver replaced by transplant (HCC) Liver replaced by transplant documented in this encounter [facility]* Diagnosis Liver replaced by transplant (HCC) Liver replaced by transplant [facility]* Diagnosis NO SHOW- Primary documented in this encounter [facility]* Diagnosis Essential hypertension- Primary Unspecified essential hypertension Mixed hyperlipidemia S/P liver transplant (HCC) Liver replaced by transplant Chronic hepatitis C without hepatic coma (HCC) Chronic hepatitis C without mention of hepatic coma Urinary retention Retention of urine, unspecified Hypothyroidism, unspecified type Sarcoidosis PTSD (post-traumatic stress disorder) Posttraumatic stress disorder PFO (patent foramen ovale) Ostium secundum type atrial septal defect Non-ischemic cardiomyopathy (HCC) Other primary cardiomyopathies Paroxysmal atrial fibrillation (HCC) Atrial fibrillation History of tobacco use Personal history of tobacco use, presenting hazards to health Rib pain on right side Chest pain, unspecified documented in this encounter [facility]* Diagnosis Liver replaced by transplant (HCC)- Primary Liver replaced by transplant documented in this encounter [facility]* Diagnosis Encounter for screening for lung cancer- Primary History of tobacco use Personal history of tobacco use, presenting hazards to health documented in this encounter [facility]* Diagnosis Bilateral foot pain- Primary Pain in limb documented in this encounter [facility]* Diagnosis Skew foot deformity, unspecified laterality- Primary Plantar wart of right foot Plantar wart documented in this encounter [facility]* Diagnosis Liver replaced by transplant (HCC)- Primary Liver replaced by transplant documented in this encounter [facility]* Diagnosis PFO (patent foramen ovale)- Primary Ostium secundum type atrial septal defect Non-ischemic cardiomyopathy (HCC) Other primary cardiomyopathies Paroxysmal atrial fibrillation (HCC) Atrial fibrillation Mixed hyperlipidemia Essential hypertension Unspecified essential hypertension Gastroesophageal reflux disease, unspecified whether esophagitis present S/P liver transplant (HCC) Liver replaced by transplant Adjustment disorder with mixed anxiety and depressed mood PTSD (post-traumatic stress disorder) Posttraumatic stress disorder Pain in both hands documented in this encounter [facility]* Diagnosis S/P liver transplant (HCC)- Primary Liver replaced by transplant Urinary retention Retention of urine, unspecified Renal insufficiency Unspecified disorder of kidney and ureter Pain in both hands Screening for lung cancer Need for hepatitis C screening test Special screening examination for other specified viral diseases Need for vaccination Need for prophylactic vaccination and inoculation against unspecified single disease documented in this encounter [facility]* Diagnosis Chronic hepatitis C without hepatic coma (HCC)- Primary Chronic hepatitis C without mention of hepatic coma documented in this encounter [facility]* Diagnosis Pain in both hands documented in this encounter [facility]* Diagnosis Encounter for screening for lung cancer- Primary History of tobacco use Personal history of tobacco use, presenting hazards to health documented in this encounter [facility]* Diagnosis Essential hypertension- Primary Unspecified essential hypertension Encounter for immunization Need for other specified prophylactic vaccination against single bacterial disease PFO (patent foramen ovale) Ostium secundum type atrial septal defect Paroxysmal atrial fibrillation (HCC) Atrial fibrillation Non-ischemic cardiomyopathy (HCC) Other primary cardiomyopathies Mixed hyperlipidemia Lung nodule Solitary pulmonary nodule Splenomegaly Bilateral inguinal hernia without obstruction or gangrene, recurrence not specified Chronic hepatitis C without hepatic coma (HCC) Chronic hepatitis C without mention of hepatic coma Hepatitis C virus infection without hepatic coma, unspecified chronicity Gastroesophageal reflux disease, unspecified whether esophagitis present Stress hyperglycemia Other abnormal blood chemistry PTSD (post-traumatic stress disorder) Posttraumatic stress disorder Anxiety Anxiety state, unspecified documented in this encounter [facility]* Diagnosis History of tobacco use Personal history of tobacco use, presenting hazards to health Encounter for screening for lung cancer [facility]* Diagnosis NO SHOW- Primary documented in this encounter [facility]* Diagnosis Liver replaced by transplant (HCC) Liver replaced by transplant documented in this encounter [facility]* Diagnosis Liver replaced by transplant (HCC) Liver replaced by transplant documented in this encounter [facility]* Diagnosis Anxiety Anxiety state, unspecified documented in this encounter [facility]* Diagnosis Anxiety Anxiety state, unspecified documented in this encounter [facility]* Diagnosis Liver replaced by transplant (HCC)- Primary Liver replaced by transplant documented in this encounter [facility]* Diagnosis Anxiety Anxiety state, unspecified documented in this encounter [facility]* Diagnosis Paroxysmal atrial fibrillation (HCC)- Primary Atrial fibrillation Essential hypertension Unspecified essential hypertension Non-ischemic cardiomyopathy (HCC) Other primary cardiomyopathies Mixed hyperlipidemia Lung nodule Solitary pulmonary nodule S/P liver transplant (HCC) Liver replaced by transplant BPH with obstruction/lower urinary tract symptoms Hypertrophy of prostate with urinary obstruction and other lower urinary tract symptoms (LUTS) Hypothyroidism, unspecified type Osteoporosis, unspecified osteoporosis type, unspecified pathological fracture presence PTSD (post-traumatic stress disorder) Posttraumatic stress disorder Gastroesophageal reflux disease without esophagitis Esophageal reflux Anxiety Anxiety state, unspecified Liver replaced by transplant (HCC) Liver replaced by transplant SOB (shortness of breath) Shortness of breath Chest wall pain Painful respiration [facility] this [facility]* Diagnosis S/P liver transplant (HCC)- Primary Liver replaced by transplant Nausea and vomiting, unspecified vomiting type 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) Complications of transplanted liver Anxiety with depression [facility] Diagnosis Cellulitis of abdominal wall- Primary Cellulitis and abscess of trunk History of liver transplant (HCC) Liver replaced by transplant Splenomegaly Elevated serum creatinine Other nonspecific findings on examination of blood Hyponatremia Hyposmolality and/or hyponatremia Thrombocytopenia (HCC) Thrombocytopenia, unspecified Lymphadenopathy Enlargement of lymph nodes Essential hypertension Unspecified essential hypertension Dilated bile duct Other specified disorders of biliary tract GERD (gastroesophageal reflux disease) Esophageal reflux JAROD (acute kidney injury) (HCC) Acute kidney failure, unspecified Obesity, Class II, BMI 35-39.9 Obesity, unspecified Pain in both hands [facility] Diagnosis Cellulitis of abdominal wall- Primary Cellulitis and abscess of trunk History of liver transplant (HCC) Liver replaced by transplant Splenomegaly Elevated serum creatinine Other nonspecific findings on examination of blood Hyponatremia Hyposmolality and/or hyponatremia Thrombocytopenia (HCC) Thrombocytopenia, unspecified Lymphadenopathy Enlargement of lymph nodes Essential hypertension Unspecified essential hypertension Dilated bile duct Other specified disorders of biliary tract GERD (gastroesophageal reflux disease) Esophageal reflux JAROD (acute kidney injury) (HCC) Acute kidney failure, unspecified Obesity, Class II, BMI 35-39.9 Obesity, unspecified Rib pain on right side Chest pain, unspecified documented [facility]* Diagnosis Cellulitis of abdominal wall- Primary Cellulitis and abscess of trunk History of liver transplant (HCC) Liver replaced by transplant Splenomegaly Elevated serum creatinine Other nonspecific findings on examination of blood Hyponatremia Hyposmolality and/or hyponatremia Thrombocytopenia (HCC) Thrombocytopenia, unspecified Lymphadenopathy Enlargement of lymph nodes Essential hypertension Unspecified essential hypertension Dilated bile duct Other specified disorders of biliary tract GERD (gastroesophageal reflux disease) Esophageal reflux JAROD (acute kidney injury) (HCC) Acute kidney failure, unspecified Obesity, Class II, BMI 35-39.9 Obesity, unspecified Neck pain Cervicalgia documented [facility] this [facility]* Diagnosis Cellulitis of abdominal wall- Primary Cellulitis and abscess of trunk History of liver transplant (HCC) Liver replaced by transplant Splenomegaly Elevated serum creatinine Other nonspecific findings on examination of blood Hyponatremia Hyposmolality and/or hyponatremia Thrombocytopenia (HCC) Thrombocytopenia, unspecified Lymphadenopathy Enlargement of lymph nodes Essential hypertension Unspecified essential hypertension Dilated bile duct Other specified disorders of biliary tract GERD (gastroesophageal reflux disease) Esophageal reflux JAROD (acute kidney injury) (HCC) Acute kidney failure, unspecified Obesity, Class II, BMI 35-39.9 Obesity, unspecified Neck pain Cervicalgia documented [facility] this [facility]* Diagnosis Cellulitis of abdominal wall- Primary Cellulitis and abscess of trunk History of liver transplant (HCC) Liver replaced by transplant Splenomegaly Elevated serum creatinine Other nonspecific findings on examination of blood Hyponatremia Hyposmolality and/or hyponatremia Thrombocytopenia (HCC) Thrombocytopenia, unspecified Lymphadenopathy Enlargement of lymph nodes Essential hypertension Unspecified essential hypertension Dilated bile duct Other specified disorders of biliary tract GERD (gastroesophageal reflux disease) Esophageal reflux JAROD (acute kidney injury) (HCC) Acute kidney failure, unspecified Obesity, Class II, BMI 35-39.9 Obesity, unspecified Midline thoracic back pain, unspecified chronicity [facility] noteNo assessment information availableWayne Hospital Work Phone: Evaluation note* Diagnosis Cellulitis of abdominal wall- Primary Cellulitis and abscess of trunk History of liver transplant (HCC) Liver replaced by transplant Splenomegaly Elevated serum creatinine Other nonspecific findings on examination of blood Hyponatremia Hyposmolality and/or hyponatremia Thrombocytopenia (HCC) Thrombocytopenia, unspecified Lymphadenopathy Enlargement of lymph nodes Essential hypertension Unspecified essential hypertension Dilated bile duct Other specified disorders of biliary tract GERD (gastroesophageal reflux disease) Esophageal reflux Obesity, Class II, BMI 35-39.9 Obesity, unspecified Liver replaced by transplant (HCC)- Primary Liver replaced by transplant documented in this encounter [facility] note* Diagnosis Cellulitis of abdominal wall- Primary Cellulitis and abscess of trunk History of liver transplant (HCC) Liver replaced by transplant Splenomegaly Elevated serum creatinine Other nonspecific findings on examination of blood Hyponatremia Hyposmolality and/or hyponatremia Thrombocytopenia (HCC) Thrombocytopenia, unspecified Lymphadenopathy Enlargement of lymph nodes Essential hypertension Unspecified essential hypertension Dilated bile duct Other specified disorders of biliary tract GERD (gastroesophageal reflux disease) Esophageal reflux Obesity, Class II, BMI 35-39.9 Obesity, unspecified NO SHOW- Primary documented in this encounter [facility] note* Diagnosis Cellulitis of abdominal wall- Primary Cellulitis and abscess of trunk History of liver transplant (HCC) Liver replaced by transplant Splenomegaly Elevated serum creatinine Other nonspecific findings on examination of blood Hyponatremia Hyposmolality and/or hyponatremia Thrombocytopenia (HCC) Thrombocytopenia, unspecified Lymphadenopathy Enlargement of lymph nodes Essential hypertension Unspecified essential hypertension Dilated bile duct Other specified disorders of biliary tract GERD (gastroesophageal reflux disease) Esophageal reflux Obesity, Class II, BMI 35-39.9 Obesity, unspecified Liver replaced by transplant (HCC) Liver replaced by transplant documented in this encounter [facility] note* Diagnosis Cellulitis of abdominal wall- Primary Cellulitis and abscess of trunk History of liver transplant (HCC) Liver replaced by transplant Splenomegaly Elevated serum creatinine Other nonspecific findings on examination of blood Hyponatremia Hyposmolality and/or hyponatremia Thrombocytopenia (HCC) Thrombocytopenia, unspecified Lymphadenopathy Enlargement of lymph nodes Essential hypertension Unspecified essential hypertension Dilated bile duct Other specified disorders of biliary tract GERD (gastroesophageal reflux disease) Esophageal reflux Obesity, Class II, BMI 35-39.9 Obesity, unspecified Liver replaced by transplant (HCC) Liver replaced by transplant [facility]* Diagnosis Cellulitis of abdominal wall- Primary Cellulitis and abscess of trunk History of liver transplant (HCC) Liver replaced by transplant Splenomegaly Elevated serum creatinine Other nonspecific findings on examination of blood Hyponatremia Hyposmolality and/or hyponatremia Thrombocytopenia (HCC) Thrombocytopenia, unspecified Lymphadenopathy Enlargement of lymph nodes Essential hypertension Unspecified essential hypertension Dilated bile duct Other specified disorders of biliary tract GERD (gastroesophageal reflux disease) Esophageal reflux Obesity, Class II, BMI 35-39.9 Obesity, unspecified NO SHOW- Primary documented in this [facility]* Diagnosis Cellulitis of abdominal wall- Primary Cellulitis and abscess of trunk History of liver transplant (HCC) Liver replaced by transplant Splenomegaly Elevated serum creatinine Other nonspecific findings on examination of blood Hyponatremia Hyposmolality and/or hyponatremia Thrombocytopenia (HCC) Thrombocytopenia, unspecified Lymphadenopathy Enlargement of lymph nodes Essential hypertension Unspecified essential hypertension Dilated bile duct Other specified disorders of biliary tract GERD (gastroesophageal reflux disease) Esophageal reflux Obesity, Class II, BMI 35-39.9 Obesity, unspecified Anxiety with depression documented [facility] this [facility]* 60-year-old male with past medical history of previous cigarette smoker, depression, GERD, hypertension, hyperlipidemia, PTSD with mixed anxiety depressive disorder, PFO, previously noted paroxysmal atrial fibrillation on outpatient records however patient denies this (noted to occur during liver transplant), questionable history of sarcoidosis, 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 On 04/05/25, the pain become severe, radiated to both arms and came to the ER for further evaluation.-Chest x-ray nonacute- Troponin trending [id number] pain secondaryto CAD: Trop trend 35->38->46->52->49. Echo showed LVEF 60-65%. Stress test was abnormal so pt underwent cardiac cath on 04/07/25 which showed severe stenosis in the LAD - he is s/p WALT toLAD. he will need to remain on DAPT with ASA/Plavix for at minimum 6 months, preferably a year. Continue BB and statinHypertension: BP was elevated, lisinopril dose increased per cardiology. Continuemetoprolol. Paroxysmal atrial fibrillation: As noted above patient denies this but was noted in outpatient records probably occurred while hospitalized during liver transplant. Continue with metoprolol. CHADVASC- 1. Not routinely on AC. Alcoholic liver cirrhosis status post transplant: Continue with tacrolimusHypothyroidism: Per outpatient records. On no medications. TSH 0.3. GERD: Continue PPI therapyMultiple other comorbidities currently stableDISPO: home [facility] Work Phone: Evaluation note* Diagnosis Cellulitis of abdominal wall- Primary Cellulitis and abscess of trunk History of liver transplant (HCC) Liver replaced by transplant Splenomegaly Elevated serum creatinine Other nonspecific findings on examination of blood Hyponatremia Hyposmolality and/or hyponatremia Thrombocytopenia Thrombocytopenia, unspecified Lymphadenopathy Enlargement of lymph nodes Essential hypertension Unspecified essential hypertension Dilated bile duct Other specified disorders of biliary tract GERD (gastroesophageal reflux disease) Esophageal reflux Obesity, Class II, BMI 35-39.9 Obesity, unspecified S/P PTCA (percutaneous transluminal coronary angioplasty)- Primary Postsurgical percutaneous transluminal coronary angioplasty status Coronary artery disease involving mcgrath heart without angina pectoris, unspecified vessel or lesion type Anxiety with depression Liver replaced by transplant (HCC) Liver replaced by transplant Paroxysmal atrial fibrillation (HCC) Atrial fibrillation Essential hypertension Unspecified essential hypertension Non-ischemic cardiomyopathy (HCC) Other primary cardiomyopathies Mixed hyperlipidemia Sarcoidosis PTSD (post-traumatic stress disorder) Posttraumatic stress disorder S/P liver transplant (HCC) Liver replaced by transplant documented [facility] this encounter [facility] and [facility] [id number] male with past medical history of previous cigarette smoker, depression, GERD, hypertension, hyperlipidemia, PTSD with mixed anxiety depressive disorder, PFO, previously noted paroxysmal atrial fibrillation on outpatient records however patient denies this (noted to occur during liver transplant), questionable history of sarcoidosis, 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 Today pain got so severe, radiated to both arms and came to the ER for further evaluation. Associated with diaphoresis and nausea and vomiting. [facility] Work Phone: Hospital course Narrative No data available for this section [facility] Discharge instructions Additional Instructions Maintain splint Apply ice twice a day for 10 min at a time, protect your skin Follow up as you have been instructed Return to the ED if you have any increasing pain, numbness, redness, coldness of the extremity, or are worse in any way [facility] Work Phone: Progress [id number] male with past medical history of previous cigarette smoker, depression, GERD, hypertension, hyperlipidemia, PTSD with mixed anxiety depressive disorder, PFO, previously noted paroxysmal atrial fibrillation on outpatient records however patient denies this (noted to occur during liver transplant), questionable history of sarcoidosis, 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 On 04/05/25, the pain become severe, radiated to botharms and came to the ER for further evaluation.-Chest x- ray nonacute-Troponin trending 01-38-02Dwuqy pain secondary to CAD: Trop trend 35->38->46->52->49. Echo showed LVEF 60-65%. Stress test was abnormal so pt underwent cardiac cath on 04/07/25 which showed severe stenosis in the LAD - he is s/p WALT to LAD. he will need to remain on DAPT with ASA/Plavix for at minimum 6 months, preferably a year. Continue BB and statinHypertension: BP was elevated, lisinopril dose increased per cardiology. Continue metoprolol. Paroxysmal atrial fibrillation: As noted above patient denies this but was noted in outpatient records probably occurred while hospitalized during liver transplant. Continue with metoprolol. CHADVASC- 1. Not routinely on AC. Alcoholic liver cirrhosis status post transplant: Continue with tacrolimusHypothyroidism: Per outpatient records. On no medications. TSH 0.3. GERD: Continue PPI therapyMultiple other comorbidities currently stableDISPO: homeDischarge PlanningEstimated discharge date: 5Acute Problems1) Chest pain [R07.9] (Added: 04/06/2025)2) High troponin I level [R77.8] (Added: 04/06/2025)Chronic Problems1) Adjustment disorder with mixed anxiety and dep ressed mood [F43.23] (Diagnosed: 05/23/2014, Present on Admission)2) Alcoholic cirrhosis [K70.30] (Diagnosed: 04/06/2025, Present on Admission)3) Cholangiectasis [K83.8] (Diagnosed: 07/09/2018, Present on Admission)4) Chronic constipation [K59.09] (Diagnosed: 04/06/2025, Present on Admission)5) Chronic hepatitis C [B18.2] (Diagnosed: 05/17/2015, Present on Admission)6) Chronic hypoxemic respiratory failure [J96.11] (Diagnosed: 04/06/2025, Present on Admission)7) Chronic obstructive pulmonary disease [J44.9] (Diagnosed: 03/11/2014, Present on Admission)8) Deformity of foot [M21.969] (Diagnosed: 04/06/2025, Present on Admission)9) Depressive disorder [F32.A] (Diagnosed: 04/06/2025, Present on Admission)10) Erythrocytosis [D75.1] (Diagnosed: 04/06/2025, Present on Admission)11) Finding of salivary apparatus (Diagnosed: 04/06/2025, Present on Admission)12) Gastroesophageal reflux disease [K21.9] (Diagnosed: 07/09/2018, Present on Admission)13) H/O: liver recipient [Z94.4] (Diagnosed: 04/06/2025, Present on Admission)14) Hypertensive disorder [I10] (Diagnosed: 10/24/2016, Present on Admission)15) Hypothyroidism [E03.9] (Diagnosed: 09/12/2015, Present on Admission)16) Mixed hyperlipidemia [E78.2] (Diagnosed: 11/22/2019, Present on Admission)17) Obese class II [E66.9] (Diagnosed: 07/09/2018, Present on Admission)18) Osteoporosis [M81.0] (Diagnosed: 12/28/2020, Present on Admission)19) Paroxysmal atrial fibrillation [I48.0] (Diagnosed: 10/15/2015, Present on Admission)20) Patent foramen ovale [Q21.12] (Diagnosed: 07/11/2014, Present on Admission)21) Peripherally inserted central venous catheter in situ [Z95.828] (Diagnosed: 04/06/2025, Present on Admission)22) Posttraumatic stress disorder [F43.10] (Diagnosed: 11/04/2021, Present on Admission)23) Psoriasis [L40.9] (Diagnosed: 04/06/2025, Present on Admission)24) Sarcoidosis [D86.9] (Diagnosed: 04/17/2015, Present on Admission)25) Chronic alcoholism in remission [F10.21] (Diagnosed: 04/06/2025)Subjectivept reports he is feeling so much better. having little twinges of pain over the right side of his chest but nothing like the pain that brought him in. Looking forward to going homeVitalsTemp: 98.4F, Location: OtherHeart Rate: 66, Position: UnknownBlood Pressure: 140/65, Position: Unknown, Location: UnknownRR: 18O2: 99% SaturationGlucose: 164.0Oral: 400Exam GEN: Normals - No acute distress Other findings - TMax: 98.4, Temp: 98.4, Heart Rate:66, BP: 140/65, RR: 18, O2: 99% Saturation EYES: Normals - Vision grossly intact ENT: Normals - Hearing grossly intact, Mucous membranes moist NECK: Normals - Trachea midline RESP: Normals - Relaxed respirations, Clear anteriorly, Clear posteriorly CV: Normals - Rhythm regular, Rate normal, No edema Other findings - right radial cath site with only mild bruising GI: Normals - Soft, Non-tender, Bowel sounds normal Other findings - extensive well healed surgical scars NEURO: Normals - Alert, Oriented x 3, Moves ext x 4 MS: Normals - No clubbing PSYCH: Normals - Mood is appropriate SKIN: Normals- Warm and dry, No cyanosisChargesMedical Complexity: HighCPT Code: 25040 - Level 3 Subsequent VisitReviewed LabsNa 141 (04-08-25)K 4.6 (04-08-25)Cl 107 (04-08-25)CO2 21 (04-08-25)Calcium 9 (04-08-25)Mg 2 (04-06-25)ANION GAP 13 (04-08-25)BUN 21.6 (04-08-25)Cr 1.03 (04-08-25)CrCl (Cockcroft-Gault Formula) 69.2 (04-08-25)GFR > 60 (04-08-25)BLOOD GLUCOSE 164 (04-08-25)WBC 4.7 (04-08-25)Hgb 15.3 (04-08-25)Hct 43.1 (04-08-25)PLT 124 (04-08-25)MCV 90.4 (04-08-25)MCHC 35.5 (04-08-25)Reviewed Reports and StudiesProgress Note Cardiology (Acute) (Olimpia Dey NP) (04-08-25)Addendum Note Hospital Medicine Team (04-07-25)Cardiac Cath Report (04-07-25) [facility] HospitalProess noteSummary and PlanCardiology consulted for chest pain. Troy is a 60 y/o M with past medical history significant for cigarette smoker, depression, GERD, hypertension, hyperlipidemia, PTSD with mixed anxiety depressive disorder, PFO, previously noted paroxysmal atrial fibrillation on outpatient records however patient denies this (noted to occur during liver transplant), questionable history of sarcoidosis, 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 Today pain got so severe, radiated to both arms and came to the ER for further evaluation.He also states that most recent chest pains associated with nausea and diaphoresis. Describes chest pains as dull and achy. States he has not had any more chest pains since admission. Chest pain:-Overall patient reports chest pains that are cardiac in nature. -Troponin levels 35, 38, 46, 52, 49, overall flat trend.- Continue with aspirin and BB. -Echocardiogram preserved LVEF, no WMA, no Valvular abnormalities. -NMST shows ischemia in the territory of LAD. CAD- [facility] 03/19/25 - Percutaneous intervention on the stenosis in the proximal LAD. Stentplacement. Balloon angioplasty.- Pt placed on DAPT. - discussed importance of uninterrupted therapy for at lest 6 months, prefer 1year. - He has no anginal symptoms. - Cath site is d/I no hematoma and good pulses. - Continue with aggressive risk factor modification and GDMT as tolerated. - We will f/u in about 4 weeks. - Discussed stable vs. unstable chest pain. - Will supply SL NTG. - Ok to d/c from a cardiac standpoint. HTN:-BP is elevated on admission and remains elevated, at this time, uptitrate meds.-Continue to monitor. Alcoholic cirrhosis/Chronic Hep C:-Patient reports sober since transplant, s/p liver transplant in 2016. Atrial Fibrillation:-Remote history, noted during transplant in 2016. -Patient denies any symptoms.-Telemetry review demonstrates SR, rates 60's-70's.Acute Problems1) Chest pain [R07.9] (Added: 04/06/2025)2) High troponin I level [R77.8] (Added: 04/06/2025)Chronic Problems1) Adjustment disorder with mixed anxiety and depressed mood[F43.23] (Diagnosed: 05/23/2014, Present on Admission)2) Alcoholic cirrhosis [K70.30] (Diagnosed: 04/06/2025, Present on Admission)3) Cholangiectasis [K83.8] (Diagnosed: 07/09/2018, Present on Admission)4) Chronic constipation [K59.09] (Diagnosed: 04/06/2025, Present on Admission)5) Chronic hepatitis C[B18.2] (Diagnosed: 05/17/2015, Present on Admission)6) Chronic hypoxemic respiratory failure [J96.11] (Diagnosed: 04/06/2025, Present on Admission)7) Chronic obstructive pulmonary disease [J44.9] (Diagnosed: 03/11/2014, Present on Admission)8) Deformity of foot [M21.969] (Diagnosed: 04/06/2025, Presenton Admission)9) Depressive disorder [F32.A] (Diagnosed: 04/06/2025, Present on Admission)10) Erythrocytosis [D75.1] (Diagnosed: 04/06/2025, Present on Admission)11) Finding of salivary apparatus (Diagnosed: 04/06/2025, Present on Admission)12) Gastroesophageal reflux disease [K21.9] (Diagnosed: 07/09/2018, Present on Admission)13) H/O: liver recipient [Z94.4] (Diagnosed: 04/06/2025, Present on Admission)14) Hypertensive disorder [I10] (Diagnosed: 10/24/2016, Present on Admission)15) Hypothyroidism [E03.9] (Diagnosed: 09/12/2015, Present on Admission)16) Mixed hyperlipidemia [E78.2] (Diagnosed: 11/22/2019, Present on Admission)17) Obese class II [E66.9] (Diagnosed: 07/09/2018, Present on Admission)18) Osteoporosis [M81.0] (Diagnosed: 12/28/2020, Present on Admission)19) Paroxysmal atrial fibrillation [I48.0] (Diagnosed: 10/15/2015, Present on Admission)20) Patent foramen ovale [Q21.12] (Diagnosed: 07/11/2014, Present on Admission)21) Peripherally inserted central venous catheter in situ [Z95.828] (Diagnosed: 04/06/2025, Present on Admission)22) Posttraumatic stress disorder [F43.10] (Diagnosed: 11/04/2021, Present on Admission)23) Psoriasis [L40.9] (Diagnosed: 04/06/2025, Present on Admission)24) Sarcoidosis [D86.9] (Diagnosed: 04/17/2015, Present on Admission)25) Chronic alcoholism in remission [F10.21] (Diagnosed: 04/06/2025)SubjectivePatient seen and examined at bedside. He is status post left heart cath yesterday. Right radial cath site is dry and intact without hematoma. He denies numbness and tingling in his lower extremity. He has had no further chest pain. Has been up out of bed ambulating without symptoms.VitalsTemp: 98.4F, Location: Temporal ScanHeart Rate: 66, Position: UnknownBlood Pressure: 140/65, Position: Unknown, Location: UnknownRR: 18O2: 99% SaturationGlucose: 164.0Oral: 400Exam - Cardiology (Acute) GEN: Normals - No acute distress Other findings - TMax: 98.4, Temp: 98.4, Heart Rate: 66, BP: 140/65, RR: 18, O2: 99% Saturation EYES: Normals - EOMI ENT: Normals - Mucous membranes moist, Pharynx clear NECK: Normals - Supple RESP: Normals - Relaxed respirations CV: Normals - Rhythm regular, Rate normal, No gallops GI: Normals - Non-tender, Soft : Normals - No suprapubic tenderness LYMPH: Normals - No cervical adenopathy NEURO: Normals - Alert MS: Normals - No clubbing PSYCH: Normals - Mood is appropriate SKIN: Normals - Warm and dryChargesMedical Complexity: HighCPT Code: 72782 - Level 3 Subsequent VisitReviewed LabsNa 141 (04-08-25)K 4.6 (04-08-25)Cl 107 (04-08-25)CO2 21 (04-08-25)Calcium 9 (04-08-25)Mg 2 (04-06-25)ANION GAP 13 (04-08-25)BUN 21.6 (04-08-25)Cr 1.03 (04-08-25)CrCl (Cockcroft-Gault Formula) 69.2 (04-08-25)GFR > 60 (04-08-25)BLOOD GLUCOSE 164 (04-08-25)WBC 4.7 (04-08-25)Hgb 15.3 (04-08-25)Hct 43.1 (04-08-25)PLT 124 (04-08-25)Reviewed Reports and StudiesAddendum Note Hospital Medicine Team (04-07-25)Progress Note Cardiology (Acute) (Jasiel Jordan NP) (04-07-25)EKG (04-07-25)Cardiac Cath Report (04-07-25) [facility] noteSummary and [id number] male with past medical history of previous cigarette smoker, depression, GERD, hypertension, hyperlipidemia, PTSD with mixed anxiety depressive disorder, PFO, previously noted paroxysmal atrial fibrillation on outpatient records however patient denies this (noted to occur during liver transplant), questionable history of sarcoidosis, 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 On 04/05/25, the pain become severe, radiated to botharms and came to the ER for further evaluation.-Chest x- ray nonacute-Troponin trending [id number] pain secondary to CAD: Trop trend 35->38->46->52->49. Echo showed LVEF 60-65%. Stress test was abnormal so pt underwent cardiac cath on 04/07/25 which showed severe stenosis in the LAD - he is s/p WALT to LAD. he will need to remain on DAPT with ASA/Plavix for at minimum 6 months, preferably a year. Continue BB and statinHypertension: BP was elevated, lisinopril dose increased per cardiology. Continue metoprolol. Paroxysmal atrial fibrillation: As noted above patient denies this but was noted in outpatient records probably occurred while hospitalized during liver transplant. Continue with metoprolol. CHADVASC- 1. Not routinely on AC. Alcoholic liver cirrhosis status post transplant: Continue with tacrolimusHypothyroidism: Per outpatient records. On no medications. TSH 0.3. GERD: Continue PPI therapyMultiple other comorbidities currently stableDISPO: homeDischarge PlanningEstimated discharge date: 5Acute Problems1) Chest pain [R07.9] (Added: 04/06/2025)2) High troponin I level [R77.8] (Added: 04/06/2025)Chronic Problems1) Adjustment disorder with mixed anxiety and dep ressed mood [F43.23] (Diagnosed: 05/23/2014, Present on Admission)2) Alcoholic cirrhosis [K70.30] (Diagnosed: 04/06/2025, Present on Admission)3) Cholangiectasis [K83.8] (Diagnosed: 07/09/2018, Present on Admission)4) Chronic constipation [K59.09] (Diagnosed: 04/06/2025, Present on Admission)5) Chronic hepatitis C [B18.2] (Diagnosed: 05/17/2015, Present on Admission)6) Chronic hypoxemic respiratory failure [J96.11] (Diagnosed: 04/06/2025, Present on Admission)7) Chronic obstructive pulmonary disease [J44.9] (Diagnosed: 03/11/2014, Present on Admission)8) Deformity of foot [M21.969] (Diagnosed: 04/06/2025, Present on Admission)9) Depressive disorder [F32.A] (Diagnosed: 04/06/2025, Present on Admission)10) Erythrocytosis [D75.1] (Diagnosed: 04/06/2025, Present on Admission)11) Finding of salivary apparatus (Diagnosed: 04/06/2025, Present on Admission)12) Gastroesophageal reflux disease [K21.9] (Diagnosed: 07/09/2018, Present on Admission)13) H/O: liver recipient [Z94.4] (Diagnosed: 04/06/2025, Present on Admission)14) Hypertensive disorder [I10] (Diagnosed: 10/24/2016, Present on Admission)15) Hypothyroidism [E03.9] (Diagnosed: 09/12/2015, Present on Admission)16) Mixed hyperlipidemia [E78.2] (Diagnosed: 11/22/2019, Present on Admission)17) Obese class II [E66.9] (Diagnosed: 07/09/2018, Present on Admission)18) Osteoporosis [M81.0] (Diagnosed: 12/28/2020, Present on Admission)19) Paroxysmal atrial fibrillation [I48.0] (Diagnosed: 10/15/2015, Present on Admission)20) Patent foramen ovale [Q21.12] (Diagnosed: 07/11/2014, Present on Admission)21) Peripherally inserted central venous catheter in situ [Z95.828] (Diagnosed: 04/06/2025, Present on Admission)22) Posttraumatic stress disorder [F43.10] (Diagnosed: 11/04/2021, Present on Admission)23) Psoriasis [L40.9] (Diagnosed: 04/06/2025, Present on Admission)24) Sarcoidosis [D86.9] (Diagnosed: 04/17/2015, Present on Admission)25) Chronic alcoholism in remission [F10.21] (Diagnosed: 04/06/2025)Subjectivept reports he is feeling so much better. having little twinges of pain over the right side of his chest but nothing like the pain that brought him in. Looking forward to going homeVitalsTemp: 98.4F, Location: OtherHeart Rate: 66, Position: UnknownBlood Pressure: 140/65, Position: Unknown, Location: UnknownRR: 18O2: 99% SaturationGlucose: 164.0Oral: 400Exam GEN: Normals - No acute distress Other findings - TMax: 98.4, Temp: 98.4, Heart Rate:66, BP: 140/65, RR: 18, O2: 99% Saturation EYES: Normals - Vision grossly intact ENT: Normals - Hearing grossly intact, Mucous membranes moist NECK: Normals - Trachea midline RESP: Normals - Relaxed respirations, Clear anteriorly, Clear posteriorly CV: Normals - Rhythm regular, Rate normal, No edema Other findings - right radial cath site with only mild bruising GI: Normals - Soft, Non-tender, Bowel sounds normal Other findings - extensive well healed surgical scars NEURO: Normals - Alert, Oriented x 3, Moves ext x 4 MS: Normals - No clubbing PSYCH: Normals - Mood is appropriate SKIN: Normals- Warm and dry, No cyanosisChargesMedical Complexity: HighCPT Code: 57507 - Level 3 Subsequent VisitReviewed LabsNa 141 (04-08-25)K 4.6 (04-08-25)Cl 107 (04-08-25)CO2 21 (04-08-25)Calcium 9 (04-08-25)Mg 2 (04-06-25)ANION GAP 13 (04-08-25)BUN 21.6 (04-08-25)Cr 1.03 (04-08-25)CrCl (Cockcroft-Gault Formula) 69.2 (04-08-25)GFR > 60 (04-08-25)BLOOD GLUCOSE 164 (04-08-25)WBC 4.7 (04-08-25)Hgb 15.3 (04-08-25)Hct 43.1 (04-08-25)PLT 124 (04-08-25)MCV 90.4 (04-08-25)MCHC 35.5 (04-08-25)Reviewed Reports and StudiesProgress Note Cardiology (Acute) (Olimpia Dey NP) (04-08-25)Addendum Note Hospital Medicine Team (04-07-25)Cardiac Cath Report (04-07-25) [facility] Work Phone: Progress noteSummary and PlanCardiology consulted for chest pain. Troy is a 60 y/o M with past medical history significant for cigarette smoker, depression, GERD, hypertension, hyperlipidemia, PTSD with mixed anxiety depressive disorder, PFO, previously noted paroxysmal atrial fibrillation on outpatient records however patient denies this (noted to occur during liver transplant), questionable history of sarcoidosis, 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 Today pain got so severe, radiated to both arms and came to the ER for further evaluation.He also states that most recent chest pains associated with nausea and diaphoresis. Describes chest pains as dull and achy. States he has not had any more chest pains since admission. Chest pain:-Overall patient reports chest pains that are cardiac in nature. -Troponin levels 35, 38, 46, 52, 49, overall flat trend.- Continue with aspirin and BB. -Echocardiogram preserved LVEF, no WMA, no Valvular abnormalities. -NMST shows ischemia in the territory of LAD. CAD- [facility] 03/19/25 - Percutaneous intervention on the stenosis in the proximal LAD. Stentplacement. Balloon angioplasty.- Pt placed on DAPT. - discussed importance of uninterrupted therapy for at lest 6 months, prefer 1year. - He has no anginal symptoms. - Cath site is d/I no hematoma and good pulses. - Continue with aggressive risk factor modification and GDMT as tolerated. - We will f/u in about 4 weeks. - Discussed stable vs. unstable chest pain. - Will supply SL NTG. - Ok to d/c from a cardiac standpoint. HTN:-BP is elevated on admission and remains elevated, at this time, uptitrate meds.-Continue to monitor. Alcoholic cirrhosis/Chronic Hep C:-Patient reports sober since transplant, s/p liver transplant in 2016. Atrial Fibrillation:-Remote history, noted during transplant in 2016. -Patient denies any symptoms.-Telemetry review demonstrates SR, rates 60's-70's.Acute Problems1) Chest pain [R07.9] (Added: 04/06/2025)2) High troponin I level [R77.8] (Added: 04/06/2025)Chronic Problems1) Adjustment disorder with mixed anxiety and depressed mood[F43.23] (Diagnosed: 05/23/2014, Present on Admission)2) Alcoholic cirrhosis [K70.30] (Diagnosed: 04/06/2025, Present on Admission)3) Cholangiectasis [K83.8] (Diagnosed: 07/09/2018, Present on Admission)4) Chronic constipation [K59.09] (Diagnosed: 04/06/2025, Present on Admission)5) Chronic hepatitis C[B18.2] (Diagnosed: 05/17/2015, Present on Admission)6) Chronic hypoxemic respiratory failure [J96.11] (Diagnosed: 04/06/2025, Present on Admission)7) Chronic obstructive pulmonary disease [J44.9] (Diagnosed: 03/11/2014, Present on Admission)8) Deformity of foot [M21.969] (Diagnosed: 04/06/2025, Presenton Admission)9) Depressive disorder [F32.A] (Diagnosed: 04/06/2025, Present on Admission)10) Erythrocytosis [D75.1] (Diagnosed: 04/06/2025, Present on Admission)11) Finding of salivary apparatus (Diagnosed: 04/06/2025, Present on Admission)12) Gastroesophageal reflux disease [K21.9] (Diagnosed: 07/09/2018, Present on Admission)13) H/O: liver recipient [Z94.4] (Diagnosed: 04/06/2025, Present on Admission)14) Hypertensive disorder [I10] (Diagnosed: 10/24/2016, Present on Admission)15) Hypothyroidism [E03.9] (Diagnosed: 09/12/2015, Present on Admission)16) Mixed hyperlipidemia [E78.2] (Diagnosed: 11/22/2019, Present on Admission)17) Obese class II [E66.9] (Diagnosed: 07/09/2018, Present on Admission)18) Osteoporosis [M81.0] (Diagnosed: 12/28/2020, Present on Admission)19) Paroxysmal atrial fibrillation [I48.0] (Diagnosed: 10/15/2015, Present on Admission)20) Patent foramen ovale [Q21.12] (Diagnosed: 07/11/2014, Present on Admission)21) Peripherally inserted central venous catheter in situ [Z95.828] (Diagnosed: 04/06/2025, Present on Admission)22) Posttraumatic stress disorder [F43.10] (Diagnosed: 11/04/2021, Present on Admission)23) Psoriasis [L40.9] (Diagnosed: 04/06/2025, Present on Admission)24) Sarcoidosis [D86.9] (Diagnosed: 04/17/2015, Present on Admission)25) Chronic alcoholism in remission [F10.21] (Diagnosed: 04/06/2025)SubjectivePatient seen and examined at bedside. He is status post left heart cath yesterday. Right radial cath site is dry and intact without hematoma. He denies numbness and tingling in his lower extremity. He has had no further chest pain. Has been up out of bed ambulating without symptoms.VitalsTemp: 98.4F, Location: Temporal ScanHeart Rate: 66, Position: UnknownBlood Pressure: 140/65, Position: Unknown, Location: UnknownRR: 18O2: 99% SaturationGlucose: 164.0Oral: 400Exam - Cardiology (Acute) GEN: Normals - No acute distress Other findings - TMax: 98.4, Temp: 98.4, Heart Rate: 66, BP: 140/65, RR: 18, O2: 99% Saturation EYES: Normals - EOMI ENT: Normals - Mucous membranes moist, Pharynx clear NECK: Normals - Supple RESP: Normals - Relaxed respirations CV: Normals - Rhythm regular, Rate normal, No gallops GI: Normals - Non-tender, Soft : Normals - No suprapubic tenderness LYMPH: Normals - No cervical adenopathy NEURO: Normals - Alert MS: Normals - No clubbing PSYCH: Normals - Mood is appropriate SKIN: Normals - Warm and dryChargesMedical Complexity: HighCPT Code: 23703 - Level 3 Subsequent VisitReviewed LabsNa 141 (04-08-25)K 4.6 (04-08-25)Cl 107 (04-08-25)CO2 21 (04-08-25)Calcium 9 (04-08-25)Mg 2 (04-06-25)ANION GAP 13 (04-08-25)BUN 21.6 (04-08-25)Cr 1.03 (04-08-25)CrCl (Cockcroft-Gault Formula) 69.2 (04-08-25)GFR > 60 (04-08-25)BLOOD GLUCOSE 164 (04-08-25)WBC 4.7 (04-08-25)Hgb 15.3 (04-08-25)Hct 43.1 (04-08-25)PLT 124 (04-08-25)Reviewed Reports and StudiesAddendum Note Hospital Medicine Team (04-07-25)Progress Note Cardiology (Acute) (Jasiel Jordan NP) (04-07-25)EKG (04-07-25)Cardiac Cath Report (04-07-25) [facility] Work Phone: Progress noteSummary and PlanCardiology consulted for chest pain. Troy is a 60 y/o M with past medical history significant for cigarette smoker, depression, GERD, hypertension, hyperlipidemia, PTSD with mixed anxiety depressive disorder, PFO, previously noted paroxysmal atrial fibrillation on outpatient records however patient denies this (noted to occur during liver transplant), questionable history of sarcoidosis, 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 Today pain got so severe, radiated to both arms and came to the ER for further evaluation.He also states that most recent chest pains associated with nausea and diaphoresis. Describes chest pains as dull and achy. States he has not had any more chest pains since admission. Chest pain:-Overall patient reports chest pains that are cardiac in nature. -Troponin levels 35, 38, 46, 52, 49, overall flat trend.- Continue with aspirin and BB. -Echocardiogram preserved LVEF, no WMA, no Valvular abnormalities. -NMST shows ischemia in the territory of LAD. - plan for C today.HTN:-BP is elevated on admission and remains elevated, at this time, uptitrate meds.-Continue to monitor. Alcoholic cirrhosis/ChronicHep C:-Patient reports sober since transplant, s/p liver transplant in 2016. Atrial Fibrillation:-Remote history, noted during transplant in 2016. -Patient denies any symptoms.-Telemetry review demonstrates SR, rates 60's-70's.Acute Problems1) Chest pain [R07.9] (Added: 04/06/2025)2) High troponin Ilevel [R77.8] (Added: 04/06/2025)Chronic Problems1) Adjustment disorder with mixed anxiety and depres sed mood [F43.23] (Diagnosed: 05/23/2014, Present on Admission)2) Alcoholic cirrhosis [K70.30] (Diagnosed: 04/06/2025, Present on Admission)3) Cholangiectasis [K83.8] (Diagnosed: 07/09/2018, Present on Admission)4) Chronic constipation [K59.09] (Diagnosed: 04/06/2025, Present on Admission)5) Chronic hep atitis C [B18.2] (Diagnosed: 05/17/2015, Present on Admission)6) Chronic hypoxemic respiratory failure [J96.11] (Diagnosed: 04/06/2025, Present on Admission)7) Chronic obstructive pulmonary disease [J44.9] (Diagnosed: 03/11/2014, Present on Admission)8) Deformity of foot [M21.969] (Diagnosed: 04/06/2025, Present on Admission)9) Depressive disorder [F32.A] (Diagnosed: 04/06/2025, Present on Admission)10) Erythrocytosis [D75.1] (Diagnosed: 04/06/2025, Present on Admission)11) Finding of salivary apparatus (Diagnosed: 04/06/2025, Present on Admission)12) Gastroesophageal reflux disease [K21.9] (Diagnosed: 07/09/2018, Present on Admission)13) H/O: liver recipient [Z94.4] (Diagnosed: 04/06/2025, Present on Admission)14) Hypertensive disorder [I10] (Diagnosed: 10/24/2016, Present on Admission)15) Hypothyroidism [E03.9] (Diagnosed: 09/12/2015, Present on Admission)16) Mixed hyperlipidemia [E78.2] (Diagnosed: 11/22/2019, Present on Admission)17) Obese class II [E66.9] (Diagnosed: 07/09/2018, Present on A dmission)18) Osteoporosis [M81.0] (Diagnosed: 12/28/2020, Present on Admission)19) Paroxysmal atrialfibrillation [I48.0] (Diagnosed: 10/15/2015, Present on Admission)20) Patent foramen ovale [Q21.12] (Diagnosed: 07/11/2014, Present on Admission)21) Peripherally inserted central venous catheter in situ [Z95.828] (Diagnosed: 04/06/2025, Present on Admission)22) Posttraumatic stress disorder [F43.10] (Diagnosed: 11/04/2021, Present on Admission)23) Psoriasis [L40.9] (Diagnosed: 04/06/2025, Present on Admission)24) Sarcoidosis [D86.9] (Diagnosed: 04/17/2015, Present on Admission)25) Chronic alcoholism in remission [F10.21] (Diagnosed: 04/06/2025)SubjectivePt seen laying in bed appears comfortable and in NAD. pt denies cardiac c/o at this time.VitalsTemp: 98.2F, Location: Temporal ScanHeart Rate: 80, Position: UnknownBlood Pressure: 154/90, Position: Unknown, Location: UnknownRR: 15O2: 98% SaturationOral: 0Exam - Cardiology (Acute) GEN: Normals - No acute distress, Well nourished Other findings - TMax: 98.2, Heart Rate: 80, BP: 154/90 EYES: Normals - EOMI, Normal conjunctiva ENT: Normals - Hearing grossly intact, Mucous membranes moist, Pharynx clear NECK: Normals - Supple, Trachea midline RESP: Normals - Relaxed respirations, Clear anteriorly CV: Normals - Rhythm regular, Rate normal, No gal lops GI: Normals - Non-tender, Soft NEURO: Normals - Alert, Oriented x 3 MS: Normals - No clubbing,Arms with normal range of motion PSYCH: Normals - Mood is appropriate SKIN: Normals - Warm and dryChargesMedical Complexity: HighCPT Code: 46637 - Level 3 Subsequent VisitReviewed LabsNa 138 (04-06-25)K 3.8 (04-06-25)Cl 105 (04-06-25)Calcium 8.7 (04-06-25)Mg 2 (04-06-25)Cr 0.95 (04-06-25)CrCl (Cockcroft-Gault Formula) 75 (04-06-25)GFR > 60 (04-06-25)WBC 5.4 (04-06-25)Hgb 15.4 (04-06-25)Hct 44.1 (04-06-25)PLT 109 (04-06-25)TROPONIN T (HIGH SENSITIVITY) 49 (04-06-25)proBNP 478 (04-05-25)TSH 0.363 (04-06-25)AST 32 (04-06-25)ALT 22 (04-06-25)T. Bilirubin 1 (04-06-25)Alkaline Phosphatase 96 ()Albumin 4.3 (04-06-25)Reviewed Reports and StudiesProgress Note Hospital Medicine Team (JD Krishnamurthy) (04-07-25)Nuclear Medicine Report (04-07-25)Stress Test (04-07-25)EKG (04-07-25)EKG (04-07-25)NM MYOCARDIAL PERF REST/STRESS (04-07-25)General Note [facility] Medicine Team (04-06-25)Addendum Note Cardiology (Acute) (04-06-25)Adult Echo Report (04-06-25)ECG (04-06-25)ECG (04-06-25)Initial Consult Note Cardiology (Acute) (Jayce Ochoa NP) (04-06-25) [facility] Work Phone: Progress noteSummarmichaelle and [id number] male with past medical history of previous cigarette smoker, depression, GERD, hypertension, hyperlipidemia, PTSD with mixed anxiety depressive disorder, PFO, previously noted paroxysmal atrial fibrillation on outpatient records however patient denies this (noted to occur during liver transplant), questionable history of sarcoidosis, 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Patient states that for the past couple weeks he has been experiencing severe pressure-like substernal chest pain, seems to occur when he is active, relieved with rest, radiates to bilateral arms. On 04/05/25, the pain become severe, radiated to both arms and came to the ER for further evaluation.Chest x-ray nonacuteTroponin trending 80-14-22Xztvg pain: Trop trend 35->38->46->52->49. Echo showed LVEF 60-65% and no wall motion abnormality.Cardiology consulted, plan for stress test. Full dose aspirin added, continue with metoprolol. Lipid panel with LDL 123, HDL 63. Hypertension: BP was elevated, lisinopril dose increased per cardiology. Continue metoprolol. Paroxysmal atrial fibrillation: As noted above patient denies this but was noted in outpatient records probably occurred while hospitalized during liver transplant. Continue with metoprolol. CHADVASC- 1. Not routinely on AC. Alcoholic liver cirrhosis status post transplant: Continue with tacrolimusHypothyroidism: Per outpatient records. On no medications. TSH 0.3. GERD: Continue PPI therapyMultiple other comorbidities currently stableDISPO: Pending stress test and cardiology final recs.Discharge PlanningEstimated discharge date: 5Acute Problems1) Chest pain [R07.9] (Added: 04/06/2025)2) High troponin I level [R77.8] (Added: 04/06/2025)Chronic Problems1) Adjustment disorder with mixed anxiety and depressed mood [F43.23] (Diagnosed: 05/23/2014, Present on Admission)2) Alcoholic cirrhosis [K70.30] (Diagnosed: 04/06/2025, Present on Admission)3) Cholangiectasis [K83.8] (Diagnosed: 07/09/2018, Present on Admission)4) Chronic constipation [K59.09] (Diagnosed: 04/06/2025, Present on Admission)5) Chronic hepatitis C [B18.2] (Diagnosed: 05/17/2015, Present on Admission)6) Chronic hypoxemic respiratory failure [J96.11] (Diagnosed: 04/06/2025, Present on Admission)7) Chronic obstructive pulmonary disease [J44.9] (Diagnosed: 03/11/2014, Present on Admission)8) Deformityof foot [M21.969] (Diagnosed: 04/06/2025, Present on Admission)9) Depressive disorder [F32.A] (Diagnosed: 04/06/2025, Present on Admission)10) Erythrocytosis [D75.1] (Diagnosed: 04/06/2025, Present on Ad mission)11) Finding of salivary apparatus (Diagnosed: 04/06/2025, Present on Admission)12) Gastroesophageal reflux disease [K21.9] (Diagnosed: 07/09/2018, Present on Admission)13) H/O: liver recipient[Z94.4] (Diagnosed: 04/06/2025, Present on Admission)14) Hypertensive disorder [I10] (Diagnosed: 10/24/2016, Present on Admission)15) Hypothyroidism [E03.9] (Diagnosed: 09/12/2015, Present on Admission)16) Mixed hyperlipidemia [E78.2] (Diagnosed: 11/22/2019, Present on Admission)17) Obese class II [E66.9] (Diagnosed: 07/09/2018, Present on Admission)18) Osteoporosis [M81.0] (Diagnosed: 12/28/2020, Present on Admission)19) Paroxysmal atrial fibrillation [I48.0] (Diagnosed: 10/15/2015, Present on Admission)20) Patent foramen ovale [Q21.12] (Diagnosed: 07/11/2014, Present on Admission)21) Peripherallyinserted central venous catheter in situ [Z95.828] (Diagnosed: 04/06/2025, Present on Admission)22) Posttraumatic stress disorder [F43.10] (Diagnosed: 11/04/2021, Present on Admission)23) Psoriasis [L40 .9] (Diagnosed: 04/06/2025, Present on Admission)24) Sarcoidosis [D86.9] (Diagnosed: 04/17/2015, Present on Admission)25) Chronic alcoholism in remission [F10.21] (Diagnosed: 04/06/2025)SubjectivePatientreports he feels well overall. No acute events overnightVitalsTemp: 98.2F, Location: Temporal ScanHeart Rate: 57, Position: UnknownBlood Pressure: 137/67, Position: Unknown, Location: UnknownRR: 15O2: 98% SaturationOral: 0Exam GEN: Normals - No acute distress, Well nourished Other findings - TMax: 98.2 EYES: Normals - Vision grossly intact, EOMI ENT: Normals - Hearing grossly intact, Mucous membranes moist NECK: Normals - Supple RESP: Normals - Relaxed respirations, Clear anteriorly CV: Normals- Rhythm regular, Rate normal GI: Normals - Soft, Non-tender NEURO: Normals - Alert, Oriented x 3 PSYCH: Normals - Mood is appropriate, Mood is good SKIN: Normals - Warm and dryChargesMedical Complexity: ModerateCPT Code: 83921 - Level 2 Subsequent VisitReviewed LabsNa 138 (04-06-25)K 3.8 (04-06-25)Cl 105 (04-06-25)CO2 19 (04-06-25)Calcium 8.7 (04-06-25)Mg 2 (04-06-25)ANION GAP 14 (04-06-25)BUN 22.3 (04-06-25)Cr 0.95 (04-06-25)CrCl (Cockcroft-Gault Formula) 75 (04-06-25)GFR > 60 (04-06-25)BLOOD GLUCOSE 83 (04-06-25)WBC 5.4 (04-06-25)Hgb 15.4 (04-06-25)Hct 44.1 (04-06-25)PLT 109 (04-06-25)MCV 93 (04-06-25)MCHC 34.9 (04-06-25)TROPONIN T (HIGH SENSITIVITY) 49 (04-06-25)CKMB 6.2 (04-06-25)CPK 263 (04-06-25)Rel Index 2.4 (04-06-25)proBNP 478 (04-05-25)TSH 0.363 (04-06-25)HgA1C 5 (04-06-25)AST 32 (04-06-25)ALT 22 (04-06-25)T. Bilirubin 1 (04-06-25)Direct Bilirubin 0.4 (04-06-25)Indirect Bilirubin 0.6 (04-06-25)Alkaline Phosphatase 96 (04-06-25)Ammonia 25 (06-28-24)Reviewed Reports and StudiesEKG (04-07-25)EKG (04-07-25)Adult Echo Report (04-06-25) [facility] Work Phone: Reason for referral (narrative)* Diagnostic Procedure Only (Routine) - Closed Specialty Diagnoses / Procedures Referred By Contac t Referred To Contact XR IMAGING Diagnoses Midline thoracic back pain, unspecified chronicity Procedures XR THORACIC GENERAL 3V AP/LAT/SWIMMERS RADEX SPINE THORACIC 3 VIEWS Saida Lowery, CRYPTANALYST.[employer] [address] [place], [place] [id number] Xr Imaging Referral ID Status Reason Start Date Expiration Date V isits Requested Visits Authorized [id number] Closed Auto-Generate d Referral 02/26/2022 03/28/2023 1 1 [facility] for referral (narrative)* Diagnostic Procedure Only (Routine) - Closed Specialty Diagnoses / Procedures Referred By Contac t Referred To Contact XR IMAGING Diagnoses Rib pain on right side Procedures XR RIBS/CHEST 3V AP RIB/OBLS/CXR RIGHT RADEX RIBS UNI W/POSTEROANT CH MINIMUM 3 VIEWS Giancarlo Kendall MD [address] [place] [address] Xr Imaging Referral ID Status Reason Start Date Expiration Date V isits Requested Visits Authorized [id number] Closed Auto-Generate d Referral 10/21/2022 11/20/2023 1 1 * Consult, Test, Treat (Routine) - Authorized Specialty Diagnoses / Procedures Referred By Contac t Referred To Contact Cardiology Diagnoses PFO (patent foramen ovale) Non-ischemic cardiomyopathy (HCC) Paroxysmal atrial fibrillation (HCC) Procedures CONSULT TO CARDIOLOGY OFFICE/OUTPATIENT [facility] MDM 60-74 MINUTES Giancarlo Kendall MD [address] [place] [address] Referral ID Status Reason Start Date Expiration Date Visits Requested Visits Authorized [id number] Authorized PCP Requested Referral 10/21/2022 10/21/2023 1 1 [facility] for referral (narrative)* Diagnostic Procedure Only (Routine) - Pending Review Specialty Diagnoses / Procedures Referred By Contac t Referred To Contact XR IMAGING Diagnoses Bilateral foot pain Procedures XR FOOT GENERAL 3V AP/LAT/OBL BILATERAL RADEX FOOT COMPLETE MINIMUM 3 [place] [address] Xr Imaging Referral ID Status Reason Start Date Expiration Date Visits Requested Visits Authorized [id number] Pending Review Auto-Generat ed Referral 01/01/2023 01/31/2024 1 1 [facility] for referral (narrative)* Diagnostic Procedure Only (Routine) - Pending Review Specialty Diagnoses / Procedures Referred By Contac t Referred To Contact MOLECULAR & FUNCTIONAL IMAGING Diagnoses SOB (shortness of breath) Chest wall pain Procedures NM CARDIAC PERF STRESS/PHARM MYOCARDIAL SPECT [place] [address] [place] [id number] [facility] [address] [place] [address] Referral ID Status Reason Start Date Expiration Date Visits Requested Visits Authorized [id number] Pending Review Auto-Generat ed Referral 02/26/2024 03/27/2025 1 1 * Outpatient Procedure (Routine) - Pending Review Specialty Diagnoses / Procedures Referred By Contac t Referred To Contact [facility] Diagnoses SOB (shortness of breath) Chest wall pain Procedures ECG COMPLETE ECG ROUTINE ECG W/LEAST 12 LDS W/I&R Giancarlo Kendall MD [address] [place] [address] [facility] [address] [place] [address] Referral ID Status Reason Start Date Expiration Date Visits Requested Visits Authorized [id number] Pending Review Auto-Generat ed Referral 02/26/2024 02/25/2025 1 1 [facility] for referral (narrative)* Diagnostic Procedure Only (Routine) - Closed Specialty Diagnoses / Procedures Referred By Contac t Referred To Contact XR IMAGING Diagnoses Pain in both hands Procedures XR HAND GENERAL 3V PA/LAT/OBL BILATERAL RADEX HAND MINIMUM 3 VIEWS Giancarlo Kendall MD [address] [place] [address] [place] [address] Referral ID Status Reason Start Date Expiration Date V isits Requested Visits Authorized [id number] Closed Auto-Generate d Referral 01/19/2023 02/18/2024 1 1 [facility] for referral (narrative)* Diagnostic Procedure Only (Routine) - Closed Specialty Diagnoses / Procedures Referred By Contac t Referred To Contact XR IMAGING Diagnoses Rib pain on right side Procedures XR RIBS/CHEST 3V AP RIB/OBLS/CXR RIGHT RADEX RIBS UNI W/POSTEROANT CH MINIMUM 3 VIEWS Giancarlo Kendall MD [address] [place] [address] [place] [address] Referral ID Status Reason Start Date Expiration Date V isits Requested Visits Authorized [id number] Closed Auto-Generate d Referral 10/21/2022 11/20/2023 1 1 [facility] for referral (narrative)* Diagnostic Procedure Only (Routine) - Closed Specialty Diagnoses / Procedures Referred By Contac t Referred To Contact XR IMAGING Diagnoses Neck pain Procedures XR CERV OTHER 4V AP/LAT/OBL RADEX SPINE CERVICAL 4 OR 5 VIEWS Giancarlo Kendall MD [facility] [place] [address] [place] [address] Referral ID Status Reason Start Date Expiration Date V isits Requested Visits Authorized [id number] Closed Auto-Generate d Referral 12/23/2021 01/22/2023 1 1 [facility] for referral (narrative)* Diagnostic Procedure Only (Routine) - Closed Specialty Diagnoses / Procedures Referred By Contac t Referred To Contact XR IMAGING Diagnoses Neck pain Procedures XR CERV OTHER 4V AP/LAT/OBL RADEX SPINE CERVICAL 4 OR 5 VIEWS Giancarlo Kendall MD [address] [place] [address] [place] [address] Referral ID Status Reason Start Date Expiration Date V isits Requested Visits Authorized [id number] Closed Auto-Generate d Referral 02/06/2022 03/08/2023 1 1 [facility] for referral (narrative)* Diagnostic Procedure Only (Routine) - Closed Specialty Diagnoses / Procedures Referred By Contac t Referred To Contact XR IMAGING Diagnoses Midline thoracic back pain, unspecified chronicity Procedures XR THORACIC GENERAL 3V AP/LAT/SWIMMERS RADEX SPINE THORACIC 3 VIEWS Saida Lowery, CRYPTANALYST.PAPER BAG MAKER [address] [place] [address] [place] [address] Referral ID Status Reason Start Date Expiration Date V isits Requested Visits Authorized [id number] Closed Auto-Generate d Referral 02/26/2022 03/28/2023 1 1 [facility] for referral (narrative)No reason for referral [facility] Narrative* Diagnostic Procedure Only (Routine) - Closed Specialty Diagnoses / Procedures Referred By Contac t Referred To Contact XR IMAGING Diagnoses Pain in both hands Procedures XR HAND GENERAL 3V PA/LAT/OBL BILATERAL RADEX HAND MINIMUM 3 VIEWS Giancarlo Kendall MD [address] [place] [address] [place] [address] Referral ID Status Reason Start Date Expiration Date V isits Requested Visits Authorized [id number] Closed Auto-Generate d Referral 01/19/2023 02/18/2024 1 1 [facility] for visit Narrative* Diagnostic Procedure Only (Routine) - Closed Specialty Diagnoses / Procedures Referred By Contac t Referred To Contact XR IMAGING Diagnoses Rib pain on right side Procedures XR RIBS/CHEST 3V AP RIB/OBLS/CXR RIGHT RADEX RIBS UNI W/POSTEROANT CH MINIMUM 3 VIEWS Giancarlo Kendall MD [address] [place] [address] [place] [address] Referral ID Status Reason Start Date Expiration Date V isits Requested Visits Authorized [id number] Closed Auto-Generate d Referral 10/21/2022 11/20/2023 1 1 [facility] for visit Narrative* Diagnostic Procedure Only (Routine) - Closed Specialty Diagnoses / Procedures Referred By Contac t Referred To Contact XR IMAGING Diagnoses Neck pain Procedures XR CERV OTHER 4V AP/LAT/OBL RADEX SPINE CERVICAL 4 OR 5 VIEWS Giancarlo Kendall MD [address] [place] [address] [place] [address] Referral ID Status Reason Start Date Expiration Date V isits Requested Visits Authorized [id number] Closed Auto-Generate d Referral 12/23/2021 01/22/2023 1 1 [facility] for visit Narrative* Diagnostic Procedure Only (Routine) - Closed Specialty Diagnoses / Procedures Referred By Contac t Referred To Contact XR IMAGING Diagnoses Neck pain Procedures XR CERV OTHER 4V AP/LAT/OBL RADEX SPINE CERVICAL 4 OR 5 VIEWS Giancarlo Kendall MD [address] [place] [address] [place] [address] Referral ID Status Reason Start Date Expiration Date V isits Requested Visits Authorized [id number] Closed Auto-Generate d Referral 02/06/2022 03/08/2023 1 1 [facility] for visit Narrative* Diagnostic Procedure Only (Routine) - Closed Specialty Diagnoses / Procedures Referred By Contac t Referred To Contact XR IMAGING Diagnoses Midline thoracic back pain, unspecified chronicity Procedures XR THORACIC GENERAL 3V AP/LAT/SWIMMERS RADEX SPINE THORACIC 3 VIEWS Saida Lowery, CRYPTANALYST.PAPER BAG MAKER [address] [place] [address] [place] [address] Referral ID Status Reason Start Date Expiration Date V isits Requested Visits Authorized [id number] Closed Auto-Generate d Referral 02/26/2022 03/28/2023 1 1 [facility] Summary Purpose Family History No Family History Records FoundNo Family History Records FoundNo Family History Records Found No data available for this section No Family History Records FoundNo Family History Records FoundNo Family History Records FoundNo Family History Records FoundNo Family History Records Found Advance Directives No Advanced Directives Records FoundDocuments on File Type Date Recorded 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 Advance Directive(s) 11/21/2021 1:16 PM Advance Directive(s) 02/26/2021 9:13 AM Advance Directive(s) 05/09/2019 6:10 AM Advance Directive(s) 01/31/2019 9:54 AM Advance Directive(s) 01/21/2019 10:37 AM Advance Directive(s) 10/12/2018 3:08 PM Advance Directive(s) 07/09/2018 9:22 PM Advance Directive(s) 12/16/2017 11:40 AM Advance Directive(s) 12/01/2017 3:53 PM Advance Directive(s) 03/24/2017 9:05 AM Advance Directive(s) 03/24/2017 11:20 AM Advance Directive(s) 03/26/2016 8:50 PM Advance Directive(s) 03/20/2016 11:00 AM Advance Directive(s) 01/25/2016 1:28 PM Advance Directive(s) 12/21/2015 9:19 AM Advance Directive(s) 11/05/2015 5:44 PM Documents on File Type Date Recorded 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 Advance Directive(s) 11/21/2021 1:16 PM Advance Directive(s) 02/26/2021 9:13 AM Advance Directive(s) 05/09/2019 6:10 AM Advance Directive(s) 01/31/2019 9:54 AM Advance Directive(s) 01/21/2019 10:37 AM Advance Directive(s) 10/12/2018 3:08 PM Advance Directive(s) 07/09/2018 9:22 PM Advance Directive(s) 12/16/2017 11:40 AM Advance Directive(s) 12/01/2017 3:53 PM Advance Directive(s) 03/24/2017 9:05 AM Advance Directive(s) 03/24/2017 11:20 AM Advance Directive(s) 03/26/2016 8:50 PM Advance Directive(s) 03/20/2016 11:00 AM Advance Directive(s) 01/25/2016 1:28 PM Advance Directive(s) 12/21/2015 9:19 AM Advance Directive(s) 11/05/2015 5:44 PM Advance Directive Response Recorded Date/ Time Does Patient Have Advance Directives? No June 13, 2017 2:04am Code Status Full Code June 28 10:07am Advance Directive Response Recorded Date/ Time Does Patient Have Advance Directives? No April 05, 2025 11:38pm Code Status Full Code April 05, 2025 11:38pm Advance Directive Response Recorded Date/ Time Does Patient Have Advance Directives? No April 06, 2025 2:28pm Code Status Full Code April 05, 2025 11:38pm Reason for Referral Specialty Diagnoses / Procedures Referred By Contac t Referred To Contact Nutrition Diagnoses Other osteoporosis without current pathological fracture Non-ischemic cardiomyopathy (HCC) Essential hypertension S/P liver transplant (HCC) Procedures CONSULT TO NUTRITION THERAPY OFFICE/OUTPATIENT [facility] 60-74 MINUTES Giancarlo Kendall MD [address] [place] [address] Referral ID Status Reason Start Date Expiration Date Visits Requested Visits Authorized [id number] Authorized PCP Requested Referral 12/23/2021 12/23/2022 1 1 Specialty Diagnoses / Procedures Referred By Contac t Referred To Contact Psychology Diagnoses Anxiety with depression Procedures CONSULT TO PSYCHOLOGY OFFICE/OUTPATIENT [facility] 60-74 MINUTES Giancarlo Kendall MD [address] [place] [address] Referral ID Status Reason Start Date Expiration Date Visits Requested Visits Authorized [id number] Pending Review PCP Requested Referral 01/07/2022 01/07/2023 1 1 Specialty Diagnoses / Procedures Referred By Contac t Referred To Contact Urology Diagnoses Essential hypertension Procedures CONSULT TO UROLOGY OFFICE/OUTPATIENT [facility] 60-74 MINUTES Giancarlo Kendall MD [address] [place] [address] Referral ID Status Reason Start Date Expiration Date Visits Requested Visits Authorized [id number] Authorized PCP Requested Referral 01/08/2022 01/08/2023 1 1 Specialty Diagnoses / Procedures Referred By Contac t Referred To Contact MR IMAGING Diagnoses Cognitive impairment, mild, so stated Procedures MRI BRAIN WO IVCON MRI BRAIN BRAIN STEM W/O CONTRAST MATERIAL Giancarlo Kendall MD [address] [place] [address] Mr Imaging Referral ID Status Reason Start Date Expiration Date V isits Requested Visits Authorized [id number] Closed Auto-Generate d Referral 12/23/2021 03/25/2022 1 1 Specialty Diagnoses / Procedures Referred By Contac t Referred To Contact [facility] Diagnoses Neck pain Procedures CONSULT TO PHYSICAL THERAPY PHYSICAL THERAPY EVALUATION HIGH COMPLEX 45 MINS Giancarlo Kendall MD [address] [place] [address] [facility] [address] [address] Referral ID Status Reason Start Date Expiration Date Visits Requested Visits Authorized [id number] Pending Review Auto-Generat ed Referral 02/06/2022 02/06/2023 1 1 Specialty Diagnoses / Procedures Referred By Contac t Referred To Contact XR IMAGING Diagnoses Neck pain Procedures XR CERV OTHER 4V AP/LAT/OBL RADEX SPINE CERVICAL 4 OR 5 VIEWS Giancarlo Kendall MD [address] [place] [address] Xr Imaging Referral ID Status Reason Start Date Expiration Date V isits Requested Visits Authorized [id number] Closed Auto-Generate d Referral 02/06/2022 03/08/2023 1 1 Specialty Diagnoses / Procedures Referred By Contac t Referred To Contact [facility] Diagnoses Upper back pain Lumbar back pain Procedures CONSULT TO PHYSICAL THERAPY PHYSICAL THERAPY EVALUATION [facility] COMPLEX 45 MINS Giancarlo Kendall MD [address] [place] [address] [facility] [address] [address] Referral ID Status Reason Start Date Expiration Date Visits Requested Visits Authorized [id number] Pending Review Auto-Generat ed Referral 03/11/2022 03/11/2023 1 1 Specialty Diagnoses / Procedures Referred By Contac t Referred To Contact Diagnoses Adjustment disorder with mixed anxiety and depressed mood Procedures CONSULT TO PSYCHIATRY OFFICE/OUTPATIENT [facility] 60-74 MINUTES Carina Hirsch PA-C [address] [place] [address] Referral ID Status Reason Start Date Expiration Date Visits Requested Visits Authorized [id number] Pending Review PCP Requested Referral 05/05/2022 05/05/2023 1 1 Specialty Diagnoses / Procedures Referred By Contac t Referred To Contact [facility] Diagnoses Chronic bilateral thoracic back pain Chronic bilateral low back pain without sciatica Chronic neck pain Procedures CONSULT TO PHYSICAL THERAPY PHYSICAL THERAPY EVALUATION HIGH COMPLEX 45 MINS Carina Hirsch PA-C [address] [place] [address] [facility] [address] [address] Referral ID Status Reason Start Date Expiration Date Visits Requested Visits Authorized [id number] Pending Review Auto-Generat ed Referral 05/05/2022 05/05/2023 1 1 Specialty Diagnoses / Procedures Referred By Contac t Referred To Contact Neurology Diagnoses Paresthesia Spasm Neuromyopathy (HCC) Procedures CONSULT TO NEUROLOGY OFFICE/OUTPATIENT [facility] MDM 60-74 MINUTES Giancarlo Kendall MD [address] [place] [address] Referral ID Status Reason Start Date Expiration Date Visits Requested Visits Authorized [id number] Authorized PCP Requested Referral 05/15/2022 05/15/2023 1 1 Specialty Diagnoses / Procedures Referred By Contac t Referred To Contact CT IMAGING Diagnoses History of tobacco use Encounter for screening for lung cancer Procedures CT LUNG SCREEN WO IVCON COMPUTED TOMOGRAPHY THORAX LW DOSE LNG CA SCR C- [place], Cortney, CRYPTANALYST.PAPER BAG MAKER [address] [place] [address] Ct Imaging Referral ID Status Reason Start Date Expiration Date Visits Requested Visits Authorized [id number] Authorized Auto-Generat ed Referral 12/03/2022 01/02/2024 1 1 Specialty Diagnoses / Procedures Referred By Contac t Referred To Contact [facility] Diagnoses Pain in both hands Procedures CONSULT TO PHYSICAL THERAPY PHYSICAL THERAPY EVALUATION HIGH COMPLEX 45 MINS THERAPEUTIC EXERCISES RE, EA 15 MIN. Giancarlo Kendall MD [address] [place] [address] [facility] [address] [place] [address] Referral ID Status Reason Start Date Expiration Date Visits Requested Visits Authorized [id number] Authorized Auto-Generat ed Referral 09/14/2022 09/13/2023 30 30 Specialty Diagnoses / Procedures Referred By Contac t Referred To Contact XR IMAGING Diagnoses Pain in both hands Procedures XR HAND GENERAL 3V PA/LAT/OBL BILATERAL RADEX HAND MINIMUM 3 VIEWS Giancarlo Kendall MD [address] [place] [address] Xr Imaging Referral ID Status Reason Start Date Expiration Date V isits Requested Visits Authorized [id number] Closed Auto-Generate d Referral 01/19/2023 02/18/2024 1 1 Specialty Diagnoses / Procedures Referred By Contac t Referred To Contact CT IMAGING Diagnoses Encounter for screening for lung cancer History of tobacco use Procedures CT LUNG SCREEN WO IVCON COMPUTED TOMOGRAPHY THORAX LW DOSE LNG CA SCR C- Cortney Shipley, CRYPTANALYST.PAPER BAG MAKER [address] [place] [id number] [facility] [place] [address] Referral ID Status Reason Start Date Expiration Date Visits Requested Visits Authorized [id number] Pending Review Auto-Generat ed Referral 05/04/2024 06/02/2024 1 1 Specialty Diagnoses / Procedures Referred By Contac t Referred To Contact CT IMAGING Diagnoses History of tobacco use Encounter for screening for lung cancer Procedures CT LUNG SCREEN WO IVCON COMPUTED TOMOGRAPHY THORAX LW DOSE LNG CA SCR C- [place], Cortney, CRYPTANALYST.PAPER BAG MAKER [address] [place] [id number] [facility] [place] [address] Referral ID Status Reason Start Date Expiration Date V isits Requested Visits Authorized [id number] Closed Auto-Generate d Referral 12/03/2022 01/02/2024 1 1 Health Concerns Infection Onset Date Last Indicated Resolved Time COVID-19 Rule-Out 07/13/2021 07/13/2021 07/14/2021 2:10 PM EDT COVID-19 Rule-Out 11/19/2021 11/19/2021 12/09/2021 8:52 PM EDT Infection Onset Date Last Indicated Resolved Time COVID-19 Rule-Out 11/19/2021 11/19/2021 12/09/2021 8:52 PM EDT Infection Onset Date Last Indicated Resolved Time COVID-19 Rule-Out 06/03/2022 06/03/2022 Infection Onset Date Last Indicated Resolved Time COVID-19 Rule-Out 06/03/2022 06/03/2022 06/04/2022 4:02 AM EDT Chief Complaint and Reason for Visit Chief Complaint Admit Date FALL - 8 FT LADDER, L HAND INJURY, HEAD INJURY June 28, 2024 9:54am Chief Complaint Admit Date CHEST PAIN April 06, 2025 4:02 am Reason for Visit Admit Date Chest pain April 06, 2025 4:02 am Elevated troponin I measurement March 4:02am Hospital Discharge Diagnosis Discharge Diagnosis Start Date Stop Date Addition al Info 04/08/2025: 60-y ear-old male with past medical history of previous cigarette smoker, depression, GERD, hypertension, hyperlipidemia, PTSD with mixed anxiety depressive disorder, PFO, previously noted paroxysmal atrial fibrillation on outpatient records however patient denies this (noted to occur during liver transplant), questionable history of sarcoidosis, 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 On 04/05/25, the pain become severe, radiated to both arms and came to the ER for further evaluation.-Chest x-ray nonacute-Troponin trending 30-88-70Tduud pain secondary to CAD: Trop trend 35->38->46->52->49. Echo showed LVEF 60-65%. Stress test was abnormal so pt underwent cardiac cath on 04/07/25 which showed severe stenosis in the LAD - he is s/p WALT to LAD. he will need to remain on DAPT with ASA/Plavix for at minimum 6 months, preferably a year. Continue BB and statinHypertension: BP was elevated, lisinopril dose increased per cardiology. Continue metoprolol. Paroxysmal atrial fibrillation: As noted above patient denies this but was noted in outpatient records probably occurred while hospitalized during liver transplant. Continue with metoprolol. CHADVASC- 1. Not routinely on AC. Alcoholic liver cirrhosis status post transplant: Continue with tacrolimusHypothyroidism: Per outpatient records. On no medications. TSH 0.3. GERD: Continue PPI therapyMultiple other comorbidities currently stableDISPO: home Additional Source Comments (unrecognized sect ion and content) No Status Records FoundNo Status Records FoundNo Status Records FoundNo Status Records FoundNo Status Records FoundNo Status Records FoundNo Status Records FoundNo Status Records Found INFORMATION SOURCE (unrecogn ized section and content) DATE CREATED AUTHOR 09/16/2019 [facility] DATE CREATED AUTHOR AUTHOR'S ORGANIZ ATION 09/06/2021 [facility] DATE CREATED AUTHOR AUTHOR'S ORGANIZ ATION 12/16/2021 [facility] DATE CREATED AUTHOR AUTHOR'S ORGANIZ ATION 04/11/2024 [facility] DATE CREATED AUTHOR AUTHOR'S ORGANIZ ATION 10/27/2024 [facility] DATE CREATED AUTHOR AUTHOR'S ORGANIZ ATION 05/17/[address] [facility] DATE CREATED AUTHOR AUTHOR'S ORGANIZ ATION 05/23/2025 [facility] DATE CREATED AUTHOR AUTHOR'S ORGANIZ ATION 05/23/2025 [facility] Source Comments (unrecognize d section and content) In the event this informatio n is protected by the Federal Confidentiality of Alcohol and Drug Abuse Patient Records regulations: The Federal rules restrict any use of the information to criminally investigate or prosecute any alcohol or drug abuse patient.[facility] the event this information is protected by the Federal Confidentiality of Alcohol and Drug Abuse Patient Records regulations: The Federal rules restrict any use of the information to criminally investigate or prosecute any alcohol or drug abuse patient.[facility] Center[facility] the event this information is protected by the Federal Confidentiality of Alcohol and Drug Abuse Patient Records regulations: The Federal rules restrict any use of the information to criminally investigate or prosecute any alcohol or drug abuse patient.[facility] Center[facility] the event this information is protected by the Federal Confidentiality of Alcohol and Drug Abuse Patient Records regulations: The Federal rules restrict any use of the information to criminally investigate or prosecute any alcohol or drug abuse patient.[facility] CenterIn the event this information is protected by the Federal Confidentiality of Alcohol and Drug Abuse Patient Records regulations: The Federal rules restrict any use of the information to criminally investigate or prosecute any alcohol or drug abuse patient.[facility] CenterIn the event this information is protected by the Federal Confidentiality of Alcohol and Drug Abuse Patient Records regulations: The Federal rules restrict any use of the information to criminally investigate or prosecute any alcohol or drug abuse patient.[facility] CenterIn the event this information is protected by the Federal Confidentiality of Alcohol and Drug Abuse Patient Records regulations: The Federal rules restrict any use of the information to criminally investigate or prosecute any alcohol or drug abuse patient.[facility] CenterIn the event this information is protected by the Federal Confidentiality of Alcohol and Drug Abuse Patient Records regulations: The Federal rules restrict any use of the information to criminally investigate or prosecute any alcohol or drug abuse patient.[facility] CenterIn the event this information is protected by the Federal Confidentiality of Alcohol and Drug Abuse Patient Records regulations: The Federal rules restrict any use of the information to criminally investigate or prosecute any alcohol or drug abuse patient.[facility] CenterIn the event this information is protected by the Federal Confidentiality of Alcohol and Drug Abuse Patient Records regulations: The Federal rules restrict any use of the information to criminally investigate or prosecute any alcohol or drug abuse patient.[facility] CenterIn the event this information is protected by the Federal Confidentiality of Alcohol and Drug Abuse Patient Records regulations: The Federal rules restrict any use of the information to criminally investigate or prosecute any alcohol or drug abuse patient.[facility] CenterIn the event this information is protected by the Federal Confidentiality of Alcohol and Drug Abuse Patient Records regulations: The Federal rules restrict any use of the information to criminally investigate or prosecute any alcohol or drug abuse patient.[facility] CenterIn the event this information is protected by the Federal Confidentiality of Alcohol and Drug Abuse Patient Records regulations: The Federal rules restrict any use of the information to criminally investigate or prosecute any alcohol or drug abuse patient.[facility] CenterIn the event this information is protected by the Federal Confidentiality of Alcohol and Drug Abuse Patient Records regulations: The Federal rules restrict any use of the information to criminally investigate or prosecute any alcohol or drug abuse patient.[facility] CenterIn the event this information is protected by the Federal Confidentiality of Alcohol and Drug Abuse Patient Records regulations: The Federal rules restrict any use of the information to criminally investigate or prosecute any alcohol or drug abuse patient.[facility] CenterIn the event this information is protected by the Federal Confidentiality of Alcohol and Drug Abuse Patient Records regulations: The Federal rules restrict any use of the information to criminally investigate or prosecute any alcohol or drug abuse patient.[facility] CenterIn the event this information is protected by the Federal Confidentiality of Alcohol and Drug Abuse Patient Records regulations: The Federal rules restrict any use of the information to criminally investigate or prosecute any alcohol or drug abuse patient.[facility] CenterIn the event this information is protected by the Federal Confidentiality of Alcohol and Drug Abuse Patient Records regulations: The Federal rules restrict any use of the information to criminally investigate or prosecute any alcohol or drug abuse patient.[facility] CenterIn the event this information is protected by the Federal Confidentiality of Alcohol and Drug Abuse Patient Records regulations: The Federal rules restrict any use of the information to criminally investigate or prosecute any alcohol or drug abuse patient.[facility] CenterIn the event this information is protected by the Federal Confidentiality of Alcohol and Drug Abuse Patient Records regulations: The Federal rules restrict any use of the information to criminally investigate or prosecute any alcohol or drug abuse patient.[facility] CenterIn the event this information is protected by the Federal Confidentiality of Alcohol and Drug Abuse Patient Records regulations: The Federal rules restrict any use of the information to criminally investigate or prosecute any alcohol or drug abuse patient.[facility] CenterIn the event this information is protected by the Federal Confidentiality of Alcohol and Drug Abuse Patient Records regulations: The Federal rules restrict any use of the information to criminally investigate or prosecute any alcohol or drug abuse patient.[facility] CenterIn the event this information is protected by the Federal Confidentiality of Alcohol and Drug Abuse Patient Records regulations: The Federal rules restrict any use of the information to criminally investigate or prosecute any alcohol or drug abuse patient.[facility] CenterIn the event this information is protected by the Federal Confidentiality of Alcohol and Drug Abuse Patient Records regulations: The Federal rules restrict any use of the information to criminally investigate or prosecute any alcohol or drug abuse patient.[facility] CenterIn the event this information is protected by the Federal Confidentiality of Alcohol and Drug Abuse Patient Records regulations: The Federal rules restrict any use of the information to criminally investigate or prosecute any alcohol or drug abuse patient.[facility] CenterIn the event this information is protected by the Federal Confidentiality of Alcohol and Drug Abuse Patient Records regulations: The Federal rules restrict any use of the information to criminally investigate or prosecute any alcohol or drug abuse patient.[facility] CenterIn the event this information is protected by the Federal Confidentiality of Alcohol and Drug Abuse Patient Records regulations: The Federal rules restrict any use of the information to criminally investigate or prosecute any alcohol or drug abuse patient.[facility] CenterIn the event this information is protected by the Federal Confidentiality of Alcohol and Drug Abuse Patient Records regulations: The Federal rules restrict any use of the information to criminally investigate or prosecute any alcohol or drug abuse patient.[facility] CenterIn the event this information is protected by the Federal Confidentiality of Alcohol and Drug Abuse Patient Records regulations: The Federal rules restrict any use of the information to criminally investigate or prosecute any alcohol or drug abuse patient.[facility] CenterIn the event this information is protected by the Federal Confidentiality of Alcohol and Drug Abuse Patient Records regulations: The Federal rules restrict any use of the information to criminally investigate or prosecute any alcohol or drug abuse patient.[facility] CenterIn the event this information is protected by the Federal Confidentiality of Alcohol and Drug Abuse Patient Records regulations: The Federal rules restrict any use of the information to criminally investigate or prosecute any alcohol or drug abuse patient.[facility] CenterIn the event this information is protected by the Federal Confidentiality of Alcohol and Drug Abuse Patient Records regulations: The Federal rules restrict any use of the information to criminally investigate or prosecute any alcohol or drug abuse patient.[facility] CenterIn the event this information is protected by the Federal Confidentiality of Alcohol and Drug Abuse Patient Records regulations: The Federal rules restrict any use of the information to criminally investigate or prosecute any alcohol or drug abuse patient.[facility] CenterIn the event this information is protected by the Federal Confidentiality of Alcohol and Drug Abuse Patient Records regulations: The Federal rules restrict any use of the information to criminally investigate or prosecute any alcohol or drug abuse patient.[facility] CenterIn the event this information is protected by the Federal Confidentiality of Alcohol and Drug Abuse Patient Records regulations: The Federal rules restrict any use of the information to criminally investigate or prosecute any alcohol or drug abuse patient.[facility] CenterIn the event this information is protected by the Federal Confidentiality of Alcohol and Drug Abuse Patient Records regulations: The Federal rules restrict any use of the information to criminally investigate or prosecute any alcohol or drug abuse patient.[facility] CenterIn the event this information is protected by the Federal Confidentiality of Alcohol and Drug Abuse Patient Records regulations: The Federal rules restrict any use of the information to criminally investigate or prosecute any alcohol or drug abuse patient.[facility] CenterIn the event this information is protected by the Federal Confidentiality of Alcohol and Drug Abuse Patient Records regulations: The Federal rules restrict any use of the information to criminally investigate or prosecute any alcohol or drug abuse patient.[facility] CenterIn the event this information is protected by the Federal Confidentiality of Alcohol and Drug Abuse Patient Records regulations: The Federal rules restrict any use of the information to criminally investigate or prosecute any alcohol or drug abuse patient.[facility] CenterIn the event this information is protected by the Federal Confidentiality of Alcohol and Drug Abuse Patient Records regulations: The Federal rules restrict any use of the information to criminally investigate or prosecute any alcohol or drug abuse patient.[facility] CenterIn the event this information is protected by the Federal Confidentiality of Alcohol and Drug Abuse Patient Records regulations: The Federal rules restrict any use of the information to criminally investigate or prosecute any alcohol or drug abuse patient.[facility] CenterIn the event this information is protected by the Federal Confidentiality of Alcohol and Drug Abuse Patient Records regulations: The Federal rules restrict any use of the information to criminally investigate or prosecute any alcohol or drug abuse patient.[facility] CenterIn the event this information is protected by the Federal Confidentiality of Alcohol and Drug Abuse Patient Records regulations: The Federal rules restrict any use of the information to criminally investigate or prosecute any alcohol or drug abuse patient.[facility] CenterIn the event this information is protected by the Federal Confidentiality of Alcohol and Drug Abuse Patient Records regulations: The Federal rules restrict any use of the information to criminally investigate or prosecute any alcohol or drug abuse patient.[facility] CenterIn the event this information is protected by the Federal Confidentiality of Alcohol and Drug Abuse Patient Records regulations: The Federal rules restrict any use of the information to criminally investigate or prosecute any alcohol or drug abuse patient.[facility] CenterIn the event this information is protected by the Federal Confidentiality of Alcohol and Drug Abuse Patient Records regulations: The Federal rules restrict any use of the information to criminally investigate or prosecute any alcohol or drug abuse patient.[facility] CenterIn the event this information is protected by the Federal Confidentiality of Alcohol and Drug Abuse Patient Records regulations: The Federal rules restrict any use of the information to criminally investigate or prosecute any alcohol or drug abuse patient.[facility] CenterIn the event this information is protected by the Federal Confidentiality of Alcohol and Drug Abuse Patient Records regulations: The Federal rules restrict any use of the information to criminally investigate or prosecute any alcohol or drug abuse patient.[facility] CenterIn the event this information is protected by the Federal Confidentiality of Alcohol and Drug Abuse Patient Records regulations: The Federal rules restrict any use of the information to criminally investigate or prosecute any alcohol or drug abuse patient.[facility] CenterIn the event this information is protected by the Federal Confidentiality of Alcohol and Drug Abuse Patient Records regulations: The Federal rules restrict any use of the information to criminally investigate or prosecute any alcohol or drug abuse patient.[facility] CenterIn the event this information is protected by the Federal Confidentiality of Alcohol and Drug Abuse Patient Records regulations: The Federal rules restrict any use of the information to criminally investigate or prosecute any alcohol or drug abuse patient.[facility] CenterIn the event this information is protected by the Federal Confidentiality of Alcohol and Drug Abuse Patient Records regulations: The Federal rules restrict any use of the information to criminally investigate or prosecute any alcohol or drug abuse patient.[facility] CenterIn the event this information is protected by the Federal Confidentiality of Alcohol and Drug Abuse Patient Records regulations: The Federal rules restrict any use of the information to criminally investigate or prosecute any alcohol or drug abuse patient.[facility] CenterIn the event this information is protected by the Federal Confidentiality of Alcohol and Drug Abuse Patient Records regulations: The Federal rules restrict any use of the information to criminally investigate or prosecute any alcohol or drug abuse patient.[facility] CenterIn the event this information is protected by the Federal Confidentiality of Alcohol and Drug Abuse Patient Records regulations: The Federal rules restrict any use of the information to criminally investigate or prosecute any alcohol or drug abuse patient.[facility] CenterIn the event this information is protected by the Federal Confidentiality of Alcohol and Drug Abuse Patient Records regulations: The Federal rules restrict any use of the information to criminally investigate or prosecute any alcohol or drug abuse patient.[facility] CenterIn the event this information is protected by the Federal Confidentiality of Alcohol and Drug Abuse Patient Records regulations: The Federal rules restrict any use of the information to criminally investigate or prosecute any alcohol or drug abuse patient.[facility] CenterIn the event this information is protected by the Federal Confidentiality of Alcohol and Drug Abuse Patient Records regulations: The Federal rules restrict any use of the information to criminally investigate or prosecute any alcohol or drug abuse patient.[facility] CenterIn the event this information is protected by the Federal Confidentiality of Alcohol and Drug Abuse Patient Records regulations: The Federal rules restrict any use of the information to criminally investigate or prosecute any alcohol or drug abuse patient.[facility] CenterIn the event this information is protected by the Federal Confidentiality of Alcohol and Drug Abuse Patient Records regulations: The Federal rules restrict any use of the information to criminally investigate or prosecute any alcohol or drug abuse patient.[facility] CenterIn the event this information is protected by the Federal Confidentiality of Alcohol and Drug Abuse Patient Records regulations: The Federal rules restrict any use of the information to criminally investigate or prosecute any alcohol or drug abuse patient.[facility] CenterIn the event this information is protected by the Federal Confidentiality of Alcohol and Drug Abuse Patient Records regulations: The Federal rules restrict any use of the information to criminally investigate or prosecute any alcohol or drug abuse patient.[facility] CenterIn the event this information is protected by the Federal Confidentiality of Alcohol and Drug Abuse Patient Records regulations: The Federal rules restrict any use of the information to criminally investigate or prosecute any alcohol or drug abuse patient.[facility] CenterIn the event this information is protected by the Federal Confidentiality of Alcohol and Drug Abuse Patient Records regulations: The Federal rules restrict any use of the information to criminally investigate or prosecute any alcohol or drug abuse patient.[facility] CenterIn the event this information is protected by the Federal Confidentiality of Alcohol and Drug Abuse Patient Records regulations: The Federal rules restrict any use of the information to criminally investigate or prosecute any alcohol or drug abuse patient.[facility] CenterIn the event this information is protected by the Federal Confidentiality of Alcohol and Drug Abuse Patient Records regulations: The Federal rules restrict any use of the information to criminally investigate or prosecute any alcohol or drug abuse patient.[facility] CenterIn the event this information is protected by the Federal Confidentiality of Alcohol and Drug Abuse Patient Records regulations: The Federal rules restrict any use of the information to criminally investigate or prosecute any alcohol or drug abuse patient.[facility] CenterIn the event this information is protected by the Federal Confidentiality of Alcohol and Drug Abuse Patient Records regulations: The Federal rules restrict any use of the information to criminally investigate or prosecute any alcohol or drug abuse patient.[facility] CenterIn the event this information is protected by the Federal Confidentiality of Alcohol and Drug Abuse Patient Records regulations: The Federal rules restrict any use of the information to criminally investigate or prosecute any alcohol or drug abuse patient.[facility] CenterIn the event this information is protected by the Federal Confidentiality of Alcohol and Drug Abuse Patient Records regulations: The Federal rules restrict any use of the information to criminally investigate or prosecute any alcohol or drug abuse patient.[facility] CenterIn the event this information is protected by the Federal Confidentiality of Alcohol and Drug Abuse Patient Records regulations: The Federal rules restrict any use of the information to criminally investigate or prosecute any alcohol or drug abuse patient.[facility] CenterIn the event this information is protected by the Federal Confidentiality of Alcohol and Drug Abuse Patient Records regulations: The Federal rules restrict any use of the information to criminally investigate or prosecute any alcohol or drug abuse patient.[facility] CenterIn the event this information is protected by the Federal Confidentiality of Alcohol and Drug Abuse Patient Records regulations: The Federal rules restrict any use of the information to criminally investigate or prosecute any alcohol or drug abuse patient.[facility] CenterIn the event this information is protected by the Federal Confidentiality of Alcohol and Drug Abuse Patient Records regulations: The Federal rules restrict any use of the information to criminally investigate or prosecute any alcohol or drug abuse patient.[facility] CenterIn the event this information is protected by the Federal Confidentiality of Alcohol and Drug Abuse Patient Records regulations: The Federal rules restrict any use of the information to criminally investigate or prosecute any alcohol or drug abuse patient.[facility] CenterIn the event this information is protected by the Federal Confidentiality of Alcohol and Drug Abuse Patient Records regulations: The Federal rules restrict any use of the information to criminally investigate or prosecute any alcohol or drug abuse patient.[facility] CenterIn the event this information is protected by the Federal Confidentiality of Alcohol and Drug Abuse Patient Records regulations: The Federal rules restrict any use of the information to criminally investigate or prosecute any alcohol or drug abuse patient.[facility] CenterIn the event this information is protected by the Federal Confidentiality of Alcohol and Drug Abuse Patient Records regulations: The Federal rules restrict any use of the information to criminally investigate or prosecute any alcohol or drug abuse patient.[facility] CenterIn the event this information is protected by the Federal Confidentiality of Alcohol and Drug Abuse Patient Records regulations: The Federal rules restrict any use of the information to criminally investigate or prosecute any alcohol or drug abuse patient.[facility] CenterIn the event this information is protected by the Federal Confidentiality of Alcohol and Drug Abuse Patient Records regulations: The Federal rules restrict any use of the information to criminally investigate or prosecute any alcohol or drug abuse patient.[facility] CenterIn the event this information is protected by the Federal Confidentiality of Alcohol and Drug Abuse Patient Records regulations: The Federal rules restrict any use of the information to criminally investigate or prosecute any alcohol or drug abuse patient.[facility] CenterIn the event this information is protected by the Federal Confidentiality of Alcohol and Drug Abuse Patient Records regulations: The Federal rules restrict any use of the information to criminally investigate or prosecute any alcohol or drug abuse patient.[facility] CenterIn the event this information is protected by the Federal Confidentiality of Alcohol and Drug Abuse Patient Records regulations: The Federal rules restrict any use of the information to criminally investigate or prosecute any alcohol or drug abuse patient.[facility] CenterIn the event this information is protected by the Federal Confidentiality of Alcohol and Drug Abuse Patient Records regulations: The Federal rules restrict any use of the information to criminally investigate or prosecute any alcohol or drug abuse patient.[facility] CenterIn the event this information is protected by the Federal Confidentiality of Alcohol and Drug Abuse Patient Records regulations: The Federal rules restrict any use of the information to criminally investigate or prosecute any alcohol or drug abuse patient.[facility] CenterIn the event this information is protected by the Federal Confidentiality of Alcohol and Drug Abuse Patient Records regulations: The Federal rules restrict any use of the information to criminally investigate or prosecute any alcohol or drug abuse patient.[facility] CenterIn the event this information is protected by the Federal Confidentiality of Alcohol and Drug Abuse Patient Records regulations: The Federal rules restrict any use of the information to criminally investigate or prosecute any alcohol or drug abuse patient.[facility] CenterIn the event this information is protected by the Federal Confidentiality of Alcohol and Drug Abuse Patient Records regulations: The Federal rules restrict any use of the information to criminally investigate or prosecute any alcohol or drug abuse patient.[facility] CenterIn the event this information is protected by the Federal Confidentiality of Alcohol and Drug Abuse Patient Records regulations: The Federal rules restrict any use of the information to criminally investigate or prosecute any alcohol or drug abuse patient.[facility] CenterIn the event this information is protected by the Federal Confidentiality of Alcohol and Drug Abuse Patient Records regulations: The Federal rules restrict any use of the information to criminally investigate or prosecute any alcohol or drug abuse patient.[facility] Center[facility] the event this information is protected by the Federal Confidentiality of Alcohol and Drug Abuse Patient Records regulations: The Federal rules restrict any use of the information to criminally investigate or prosecute any alcohol or drug abuse patient.[facility] Center[facility] the event this information is protected by the Federal Confidentiality of Alcohol and Drug Abuse Patient Records regulations: The Federal rules restrict any use of the information to criminally investigate or prosecute any alcohol or drug abuse patient.[facility] Center[facility] the event this information is protected by the Federal Confidentiality of Alcohol and Drug Abuse Patient Records regulations: The Federal rules restrict any use of the information to criminally investigate or prosecute any alcohol or drug abuse patient.[facility] CenterIn the event this information is protected by the Federal Confidentiality of Alcohol and Drug Abuse Patient Records regulations: The Federal rules restrict any use of the information to criminally investigate or prosecute any alcohol or drug abuse patient.[facility] CenterIn the event this information is protected by the Federal Confidentiality of Alcohol and Drug Abuse Patient Records regulations: The Federal rules restrict any use of the information to criminally investigate or prosecute any alcohol or drug abuse patient.[facility] CenterIn the event this information is protected by the Federal Confidentiality of Alcohol and Drug Abuse Patient Records regulations: The Federal rules restrict any use of the information to criminally investigate or prosecute any alcohol or drug abuse patient.[facility] Care Teams (unrecognized sec tion and content) Team Status: Active Member Role Status Dates NO FAMILY DOCTOR Primary Care Provider Active Team Status: Inactive Member Role Status Dates NO FAMILY DOCTOR Primary Care Provider Active St art: April 06, 2025 End: April 08, 2025 JONNA HOUSE DO Emergency Provider Active St art: April 06, 2025 End: April 08, 2025 CONNOR PLATT , DO Admit Provider Active Start : April 06, 2025 End: April 08, 2025 CONNOR PLATT , DO Attending Provider Active S tart: April 06, 2025 End: April 08, 2025 GRACIELA TRINIDAD MD Other Provider Active Start: April 06, 2025 End: April 08, 2025 Team Status: Active Member Role Status Dates NO FAMILY DOCTOR Primary Care Provider Active St art: April 06, 2025 JONNA HOUSE DO Emergency Provider Active St art: April 06, 2025 CONNOR PLATT , DO Admit Provider Active Start : April 06, 2025 CONNOR PLATT DO Attending Provider Active S tart: April 06, 2025 GRACIELA TRINIDAD MD Other Provider Active Start: April 06, 2025 Bushwalking Guide Relationship Specialty Start Date End Date Giancarlo Kendall MD [address] [place] [address] PCP - General Family Practice 04/22/13 Harshad Osborn MD Referring Internal Medicine 12/06/15 Peyton Peguero, ARRON [facility] [address] [place] [address] Transplant Center 10/20/19 Mer Richardson Primary Staff Physician Cardiology 11/30/18 Bushwalking Guide Relationship Specialty Start Date End Date Giancarlo Kendall MD [address] [place], [place] 137561 PCP - General Family Practice 04/22/13 Harshad Osborn MD Referring Internal Medicine 12/06/15 Peyton Peguero, ARRON [facility] [address] [place] [address] Transplant Center 10/20/19 Mer Richardson Primary Staff Physician Cardiology 11/30/18 Bushwalking Guide Relationship Specialty Start Date End Date Giancarlo Kendall MD [address] [place], [place] [id number] PCP - General Family Practice 04/22/13 Harshad Osborn MD Referring Internal Medicine 12/06/15 Peyton Peguero RN [facility] [address] [place] [address] Transplant Center 10/20/19 Mer Richardson Primary Staff Physician Cardiology 11/30/18 Bushwalking Guide Relationship Specialty Start Date End Date Giancarlo Kendall MD [address] [place] [address] PCP - General Family Practice 04/22/13 Harshad Osborn MD Referring Internal Medicine 12/06/15 Peyton Peguero, ARRON [facility] [address] [place] [address] Transplant Center 10/20/19 Mer Richardson Primary Staff Physician Cardiology 11/30/18 Bushwalking Guide Relationship Specialty Start Date End Date Giancarlo Kendall MD [address] [place] [address] PCP - General Family Practice 04/22/13 Harshad Osborn MD Referring Internal Medicine 12/06/15 Peyton Peguero RN [facility] [address] [place] [address] Transplant Center 10/20/19 Mer Richardson Primary Staff Physician Cardiology 11/30/18 Bushwalking Guide Relationship Specialty Start Date End Date Giancarlo Kendall MD [address] [place] [address] PCP - General Family Practice 04/22/13 Harshad Osborn MD Referring Internal Medicine 12/06/15 Peyton Peguero RN [facility] [address] [place] [address] Transplant Center 10/20/19 Mer Richardson Primary Staff Physician Cardiology 11/30/18 Bushwalking Guide Relationship Specialty Start Date End Date Giancarlo Kendall MD [address] [place], [place] 908081 PCP - General Family Practice 04/22/13 Harshad Osborn MD Referring Internal Medicine 12/06/15 Peyton Peguero RN [facility] [address] [place] [address] Transplant Center 10/20/19 Mer Richardson Primary Staff Physician Cardiology 11/30/18 Bushwalking Guide Relationship Specialty Start Date End Date Giancarlo Kendall MD [address] [place], [place] [address]241 PCP - General Family Practice 04/22/13 Harshad Osborn MD Referring Internal Medicine 12/06/15 Peyton Peguero RN [facility] [address] [place] [address] Transplant Center 10/20/19 Mer Richardson Primary Staff Physician Cardiology 11/30/18 Bushwalking Guide Relationship Specialty Start Date End Date Giancarlo Kendall MD [address] [place], [place] [id number] PCP - General Family Practice 04/22/13 Harshad Osborn MD Referring Internal Medicine 12/06/15 Peyton Peguero RN [facility] [address] [place] [address] Transplant Center 10/20/19 Mer Richardson Primary Staff Physician Cardiology 11/30/18 Bushwalking Guide Relationship Specialty Start Date End Date Giancarlo Kendall MD [address] [place] [address] PCP - General Family Practice 04/22/13 Harshad Osborn MD Referring Internal Medicine 12/06/15 Peyton Peguero RN [facility] [address] [place] [address] Transplant Center 10/20/19 Mer Richardson Primary Staff Physician Cardiology 11/30/18 Bushwalking Guide Relationship Specialty Start Date End Date Giancarlo Kendall MD [address] [place], [place] [id number] PCP - General Family Practice 04/22/13 Harshad Osborn MD Referring Internal Medicine 12/06/15 Peyton Peguero RN [facility] [address] [place] [address] Transplant Center 10/20/19 Mer Richardson Primary Staff Physician Cardiology 11/30/18 Bushwalking Guide Relationship Specialty Start Date End Date Giancarlo Kendall MD [address] [place], [place] 420961 PCP - General Family Practice 04/22/13 Harshad Osborn MD Referring Internal Medicine 12/06/15 Peyton Peguero RN [facility] [address] [place] [address] Transplant Center 10/20/19 Mer Richardson Primary Staff Physician Cardiology 11/30/18 Bushwalking Guide Relationship Specialty Start Date End Date Giancarlo Kendall MD [address] [place], [place] [id number] PCP - General Family Practice 04/22/13 Harshad Osborn MD Referring Internal Medicine 12/06/15 Peyton Peguero, RN [facility] [address] [place] [address] Transplant Center 10/20/19 Mer Richardson Primary Staff Physician Cardiology 11/30/18 Bushwalking Guide Relationship Specialty Start Date End Date Giancarlo Kendall MD [address] [place], [place] 209791 PCP - General Family Practice 04/22/13 Harshad Osborn MD Referring Internal Medicine 12/06/15 Peyton Peguero RN [facility] [address] [place] [address] Transplant Center 10/20/19 Mer Richardson Primary Staff Physician Cardiology 11/30/18 Bushwalking Guide Relationship Specialty Start Date End Date Giancarlo Kendall MD [address] [place] [address] PCP - General Family Practice 04/22/13 Harshad Osborn MD Referring Internal Medicine 12/06/15 Peyton Peguero, ARRON [facility] [address] [place] [address] Transplant Center 10/20/19 Mer Richardson Primary Staff Physician Cardiology 11/30/18 Bushwalking Guide Relationship Specialty Start Date End Date Giancarlo Kendall MD [address] [place] [address] PCP - General Family Practice 04/22/13 Harshad Osborn MD Referring Internal Medicine 12/06/15 Peyton Peguero, ARRON [facility] [address] [place] [address] Transplant Center 10/20/19 Mer Richardson Primary Staff Physician Cardiology 11/30/18 Bushwalking Guide Relationship Specialty Start Date End Date Giancarlo Kendall MD [address] [place], [place] 848391 PCP - General Family Practice 04/22/13 Harshad Osborn MD Referring Internal Medicine 12/06/15 Peyton Peguero RN [facility] [address] [place] [address] Transplant Center 10/20/19 Mer Richardson Primary Staff Physician Cardiology 11/30/18 Bushwalking Guide Relationship Specialty Start Date End Date Giancarlo Kendall MD [address] [place], [place] 222251 PCP - General Family Medicine 04/22/13 Harshad Osborn MD Referring Internal Medicine 12/06/15 Peyton Peguero RN [facility] [address] [place] [address] Transplant Center 10/20/19 Mer Richardson Primary Staff Physician Cardiology 11/30/18 Bushwalking Guide Relationship Specialty Start Date End Date Giancarlo Kendall MD [address] [place], [place] 830401 PCP - General Family Medicine 04/22/13 Harshad Osborn MD Referring Internal Medicine 12/06/15 Peyton Peguero RN [facility] [address] [place] [address] Transplant Center 10/20/19 Mer Richardson Primary Staff Physician Cardiology 11/30/18 Bushwalking Guide Relationship Specialty Start Date End Date Giancarlo Kendall MD [address] [place], [place] 669861 PCP - General Family Medicine 04/22/13 Harshad Osborn MD Referring Internal Medicine 12/06/15 Peyton Peguero RN [facility] [address] [place] [address] Transplant Center 10/20/19 Mer Richardson Primary Staff Physician Cardiology 11/30/18 Bushwalking Guide Relationship Specialty Start Date End Date Giancarlo Kendall MD [address] [place] [address] PCP - General Family Medicine 04/22/13 Harshad Osborn MD Referring Internal Medicine 12/06/15 Peyton Peguero RN [facility] [address] [place] [address] Transplant Center 10/20/19 Mer Richardson Primary Staff Physician Cardiology 11/30/18 Bushwalking Guide Relationship Specialty Start Date End Date Giancarlo Kendall MD [address] [place], [place] 907651 PCP - General Family Medicine 04/22/13 Harshad Osborn MD Referring Internal Medicine 12/06/15 Peyton Peguero RN [facility] [address] [place] [address] Transplant Center 10/20/19 Mer Richardson Primary Staff Physician Cardiology 11/30/18 Bushwalking Guide Relationship Specialty Start Date End Date Giancarlo Kendall MD [address] [place] [address] PCP - General Family Medicine 04/22/13 Harshad Osborn MD Referring Internal Medicine 12/06/15 Peyton Peguero RN [facility] [address] [place] [address] Transplant Center 10/20/19 Mer Richardson Primary Staff Physician Cardiology 11/30/18 Bushwalking Guide Relationship Specialty Start Date End Date Giancarlo Kendall MD [address] [place] [address] PCP - General Family Medicine 04/22/13 Harshad Osborn MD Referring Internal Medicine 12/06/15 Peyton Peguero RN [facility] [address] [place] [address] Transplant Center 10/20/19 Mer Richardson Primary Staff Physician Cardiology 11/30/18 Bushwalking Guide Relationship Specialty Start Date End Date Giancarlo Kendall MD [address] [place] [address] PCP - General Family Medicine 04/22/13 Harshad Osborn MD [address] [place] [address] Referring Internal Medicine 12/06/15 Peyton Peguero RN [facility] [address] [place] [address] Transplant Center 10/20/19 Mer Richarsdon [facility] [address] [place] [address] Primary Staff Physician Cardiology 11/30/18 Bushwalking Guide Relationship Specialty Start Date End Date Giancarlo Kendall MD [address] [place], [place] 049961 PCP - General Family Medicine 04/22/13 Harshad Osborn MD [address] [place] [address] Referring Internal Medicine 12/06/15 Peyton Peguero RN [facility] [address] [place] [address] Transplant Center 10/20/19 Mer Richardson [facility] [address] [place] [address] Primary Staff Physician Cardiology 11/30/18 Bushwalking Guide Relationship Specialty Start Date End Date Giancarlo Kendall MD [address] [place], [place] 253741 PCP - General Family Medicine 04/22/13 Harshad Osborn MD [address] [place] [address] Referring Internal Medicine 12/06/15 Peyton Peguero RN [facility] [address] [place] [address] Transplant Center 10/20/19 Mer Richardson [facility] [address] [place] [address] Primary Staff Physician Cardiology 11/30/18 Bushwalking Guide Relationship Specialty Start Date End Date Giancarlo Kendall MD [address] [place] [address] PCP - General Family Medicine 04/22/13 Harshad Osborn MD [address] [place] [address] Referring Internal Medicine 12/06/15 Peyton Peguero RN [facility] [address] [place] [address] Transplant Center 10/20/19 Mer Richardson [facility] [address] [place] [address] Primary Staff Physician Cardiology 11/30/18 Bushwalking Guide Relationship Specialty Start Date End Date Giancarlo Kendall MD [address] [place], [place] 530021 PCP - General Family Medicine 04/22/13 Harshad Osborn MD [address] [place] [address] Referring Internal Medicine 12/06/15 Peyton Peguero RN [facility] [address] [place] [address] Transplant Center 10/20/19 Mer Richardson [facility] [address] [place] [address] Primary Staff Physician Cardiology 11/30/18 Bushwalking Guide Relationship Specialty Start Date End Date Giancarlo Kendall MD [address] [place], [place] 772551 PCP - General Family Medicine 04/22/13 Harshad Osborn MD [address] [place] [address] Referring Internal Medicine 12/06/15 Peyton Peguero RN [facility] [address] [place] [address] Transplant Center 10/20/19 Mer Richardson [facility] [address] [place] [address] Primary Staff Physician Cardiology 11/30/18 Bushwalking Guide Relationship Specialty Start Date End Date Giancarlo Kendall MD [address] [facility], [place] [address]191 PCP - General Family Medicine 04/22/13 Harshad Osborn MD [address] [place] [address] Referring Internal Medicine 12/06/15 Peyton Peguero RN [facility] [address] [place] [address] Transplant [facility]/20[facility] [address] [place] [address] Primary Staff Physician Cardiology 11/30/18 Bushwalking Guide Relationship Specialty Start Date End Date Giancarlo Kendall MD [address] [place], [place] 116011 PCP - General Family Medicine 04/22/13 Harshad Osborn MD [address] [place] [address] Referring Internal Medicine 12/06/15 Peyton Peguero RN [facility] [address] [place] [address] Transplant Center 10/20/19 [facility] [address] [place] [address] Primary Staff Physician Cardiology 11/30/18 Bushwalking Guide Relationship Specialty Start Date End Date Giancarlo Kendall MD [address] [place], [place] 462871 PCP - General Family Medicine 04/22/13 Harshad Osborn MD [address] [place] [address] Referring Internal Medicine 12/06/15 Peyton Peguero RN [facility] [address] [place] [address] Transplant Center 10/20/19 Mer Richardson [facility] [address] [place] [address] Primary Staff Physician Cardiology 11/30/18 Bushwalking Guide Relationship Specialty Start Date End Date Giancarlo Kendall MD [address] [place], [place] 889951 PCP - General Family Medicine 04/22/13 Harshad Osborn MD [address] [place] [address] Referring Internal Medicine 12/06/15 Peyton Peguero RN [facility] [address] [place] [address] Transplant Center 10/20/19 Mer Richardson [facility] [address] [place] [address] Primary Staff Physician Cardiology 11/30/18 Bushwalking Guide Relationship Specialty Start Date End Date Giancarlo Kendall MD [address] [place] [address] PCP - General Family Medicine 04/22/13 Harshad Osborn MD [address] [place] [address] Referring Internal Medicine 12/06/15 Peyton Peguero RN [facility] [address] [place] [address] Transplant Center 10/20/19 Mer Richardson [facility] [address] [place] [address] Primary Staff Physician Cardiology 11/30/18 Bushwalking Guide Relationship Specialty Start Date End Date Giancarlo Kendall MD [address] [place], [place] 783321 PCP - General Family Medicine 04/22/13 Harshad Osborn MD [address] [place] [address] Referring Internal Medicine 12/06/15 Peyton Peguero RN [facility] [address] [place] [address] Transplant Center 10/20/19 Mer Richardson [facility] [address] [place] [address] Primary Staff Physician Cardiology 11/30/18 Bushwalking Guide Relationship Specialty Start Date End Date Giancarlo Kendall MD [address] [place] [address] PCP - General Family Medicine 04/22/13 Harshad Osborn MD [address] [place] [address] Referring Internal Medicine 12/06/15 Peyton Peguero RN [facility] [address] [place] [address] Transplant Center 10/20/19 Mer Richardson [facility] [address] [place] [address] Primary Staff Physician Cardiology 11/30/18 Bushwalking Guide Relationship Specialty Start Date End Date Giancarlo Kendall MD [address] [place] [address] PCP - General Family Medicine 04/22/13 Harshad Osborn MD [address] [place] [address] Referring Internal Medicine 12/06/15 Peyton Peguero RN [facility] [address] [place] [address] Transplant Center 10/20/19 Mer Richardson [facility] [address] [place] [address] Primary Staff Physician Cardiology 11/30/18 Bushwalking Guide Relationship Specialty Start Date End Date Giancarlo Kendall MD [address] [place] [address] PCP - General Family Medicine 04/22/13 Harshad Osborn MD [address] [place] [address] Referring Internal Medicine 12/06/15 Peyton Peguero RN [facility] [address] [place] [address] Transplant Center 10/20/19 Mer Richardson [facility] [address] [place] [address] Primary Staff Physician Cardiology 11/30/18 Bushwalking Guide Relationship Specialty Start Date End Date Giancarlo Kendall MD [address] [place] [address] PCP - General Family Medicine 04/22/13 Harshad Osborn MD [address] [place] [address] Referring Internal Medicine 12/06/15 Peyton Peguero RN [facility] [address] [place] [address] Transplant Center 10/20/19 Mer Richardson [facility] [address] [place] [address] Primary Staff Physician Cardiology 11/30/18 Bushwalking Guide Relationship Specialty Start Date End Date Giancarlo Kendall MD [address] [place] [address] PCP - General Family Medicine 04/22/13 Harshad Osborn MD [address] [place] [address] Referring Internal Medicine 12/06/15 Peyton Peguero RN [facility] [address] [place] [address] Transplant Center 10/20/19 Mer Richardson [facility] [address] [place] [address] Primary Staff Physician Cardiology 11/30/18 Bushwalking Guide Relationship Specialty Start Date End Date Giancarlo Kendall MD [address] [place] [address] 383061 PCP - General Family Medicine 04/22/13 Harshad Osborn MD [address] [place] [address] Referring Internal Medicine 12/06/15 Peyton Peguero RN [facility] [address] [place] [address] Transplant Center 10/20/19 Mer Richardson [address] [address] Primary Staff Physician Cardiology 11/30/18 Bushwalking Guide Relationship Specialty Start Date End Date Giancarlo Kendall MD [facility] [place] [address] PCP - General Family Medicine 04/22/13 Harshad Osborn MD [facility] [place] [address] Referring Internal Medicine 12/06/15 Peyton Peguero RN [facility] [address] [place] [address] Transplant Center 10/20/19 Mer Richardson [facility] [address] [place] [address] Primary Staff Physician Cardiology 11/30/18 Bushwalking Guide Relationship Specialty Start Date End Date Giancarlo Kendall MD [address] [place] [address] PCP - General Family Medicine 04/22/13 Harshad Osborn MD [address] [place] [address] Referring Internal Medicine 12/06/15 Peyton Peguero RN [facility] [address] [place] [address] Transplant Center 10/20/19 Mer Richardson [facility] [address] [place] [address] Primary Staff Physician Cardiology 11/30/18 Bushwalking Guide Relationship Specialty Start Date End Date Giancarlo Kendall MD [address] [place] [address] PCP - General Family Medicine 04/22/13 Harshad Osborn MD [address] [place] [address] Referring Internal Medicine 12/06/15 Peyton Peguero, ARRON [facility] [address] [place] [address] Transplant Center 10/20/19 Mer Richardson [facility] [address] [place] [address] Primary Staff Physician Cardiology 11/30/18 Bushwalking Guide Relationship Specialty Start Date End Date Giancarlo Kendall MD [address] [place] [address] PCP - General Family Medicine 04/22/13 Harshad Osborn MD [address] [place] [address] Referring Internal Medicine 12/06/15 Peyton Peguero, ARRON [facility] [address] [place] [address] Transplant Center 10/20/19 Mer Richardson [address] [address] Primary Staff Physician Cardiology 11/30/18 Bushwalking Guide Relationship Specialty Start Date End Date Giancarlo Kendall MD [address] [place] [address] PCP - General Family Medicine 04/22/13 Harshad Osborn MD [address] [place], [place] 437631 Referring Internal Medicine 12/06/15 Peyton Peguero RN [facility] [address] [place] [address] Transplant Center 10/20/19 Mer Richardson [address] [address] Primary Staff Physician Cardiology 11/30/18 Bushwalking Guide Relationship Specialty Start Date End Date Giancarlo Kendall MD [address] [place] [address] PCP - General Family Medicine 04/22/13 Harshad Osborn MD [address] [place] [address] Referring Internal Medicine 12/06/15 Peyton Peguero RN [facility] [address] [place] [address] Transplant Center 10/20/19 Mer Richardson [facility] [address] [place] [address] Primary Staff Physician Cardiology 11/30/18 Bushwalking Guide Relationship Specialty Start Date End Date Giancarlo Kendall MD [facility] [place] [address] PCP - General Family Medicine 04/22/13 Harshad Osborn MD [address] [place] [address]1411 Referring Internal Medicine 12/06/15 Peyton Peguero RN [facility] [address] [place] [address] Transplant Center 10/20/19 Mer Richardson [facility] [address] [place] [address] Primary Staff Physician Cardiology 11/30/18 Bushwalking Guide Relationship Specialty Start Date End Date Giancarlo Kendall MD [facility] [place] [address] PCP - General Family Medicine 04/22/13 Harshad Osborn MD [address] [place] [address] Referring Internal Medicine 12/06/15 Peyton Peguero RN [facility] [address] [place] [address] Transplant Center 10/20/19 Mer Richardson [facility] [address] [place] [address] Primary Staff Physician Cardiology 11/30/18 Bushwalking Guide Relationship Specialty Start Date End Date Giancarlo Kendall MD [address] [place], [place] 236481 PCP - General Family Medicine 04/22/13 Harshad Osborn MD [address] [place], [place] 527441 Referring Internal Medicine 12/06/15 Peyton Peguero RN [facility] [address] [place] [place] [address] Transplant Center 10/20/19 Mer Richardson [facility] [address] [place] [address] Primary Staff Physician Cardiology 11/30/18 Bushwalking Guide Relationship Specialty Start Date End Date Giancarlo Kendall MD [address] [place] [address] PCP - General Family Medicine 04/22/13 Harshad Osborn MD [address] [place], [place] 888231 Referring Internal Medicine 12/06/15 Peyton Peguero RN [facility] [address] [place] [address] Transplant Center 10/20/19 Mer Richardson [facility] [address] [place] [address] Primary Staff Physician Cardiology 11/30/18 Bushwalking Guide Relationship Specialty Start Date End Date Giancarlo Kendall MD [address] [place], [place] [id number] PCP - General Family Medicine 04/22/13 Harshad Osborn MD [address] [place], [place] 104191 Referring Internal Medicine 12/06/15 Peyton Peguero, ARRON [facility] [address] [place] [address] Transplant Center 10/20/19 Mer Richardson [facility] [address] [place] [address] Primary Staff Physician Cardiology 11/30/18 Bushwalking Guide Relationship Specialty Start Date End Date Giancarlo Kendall MD [address] [place] [address] PCP - General Family Medicine 04/22/13 Harshad Osborn MD [address] [place], [place] 468141 Referring Internal Medicine 12/06/15 Peyton Peguero, ARRON [facility] [address] [place] [address] Transplant Center 10/20/19 Mer Richardson [facility] [address] [place] [address] Primary Staff Physician Cardiology 11/30/18 Bushwalking Guide Relationship Specialty Start Date End Date Giancarlo Kendall MD [address] [place], [place] 480551 PCP - General Family Medicine 04/22/13 Harshad Osborn MD [address] [place], [place] 995541 Referring Internal Medicine 12/06/15 Peyton Peguero RN [facility] [address] [place] [address] Transplant Center 10/20/19 Mer Richardson [facility] [address] [place] [address] Primary Staff Physician Cardiology 11/30/18 Bushwalking Guide Relationship Specialty Start Date End Date Giancarlo Kendall MD [address] [place], [place] 346321 PCP - General Family Medicine 04/22/13 Harshad Osborn MD [address] [place] [address] [id number] Referring Internal Medicine 12/06/15 Peyton Peguero RN [facility] [address] [place] [address] Transplant Center 10/20/19 Mer Richardson [facility] [address] [place] [address] Primary Staff Physician Cardiology 11/30/18 Bushwalking Guide Relationship Specialty Start Date End Date Giancarlo Kendall MD [address] [place] [address] PCP - General Family Medicine 04/22/13 Harshad Osborn MD [facility] [place], [place] [id number] Referring Internal Medicine 12/06/15 Peyton Peguero RN [facility] [address] [place] [address] Transplant Center 10/20/19 Mer Richardson [facility] [address] [place] [address] Primary Staff Physician Cardiology 11/30/18 Bushwalking Guide Relationship Specialty Start Date End Date Giancarlo Kendall MD [address] [place] [address] PCP - General Family Medicine 04/22/13 Harshad Osborn MD [address] [place] [address] Referring Internal Medicine 12/06/15 Peyton Peguero RN [facility] [address] [place] [address] Transplant Center 10/20/19 Mer Richardson [facility] [address] [place] [address] Primary Staff Physician Cardiology 11/30/18 Bushwalking Guide Relationship Specialty Start Date End Date Giancarlo Kendall MD [address] [place] [address] PCP - General Family Medicine 04/22/13 Harshad Osborn MD [address] [place] [address] Referring Internal Medicine 12/06/15 Peyton Peguero RN [facility] [address] [place] [address] Transplant Center 10/20/19 Mer Richardson [facility] [address] [place] [address] Primary Staff Physician Cardiology 11/30/18 Bushwalking Guide Relationship Specialty Start Date End Date Giancarlo Kendall MD [address] [place], [place] 181211 PCP - General Family Medicine 04/22/13 Harshad Osborn MD [address] [place] [address] Referring Internal Medicine 12/06/15 Peyton Peguero RN [facility] [address] [place] [address] Transplant Center 10/20/19 Mer Richardson [facility] [address] [place] [address] Primary Staff Physician Cardiology 11/30/18 Bushwalking Guide Relationship Specialty Start Date End Date Giancarlo Kendall MD [address] [place] [address] PCP - General Family Medicine 04/22/13 Harshad Osborn MD [address] [place] [address] Referring Internal Medicine 12/06/15 Peyton Peguero RN [facility] [address] [place] [address] Transplant Center 10/20/19 Mer Richardson [facility] [address] [place] [address] Primary Staff Physician Cardiology 11/30/18 Bushwalking Guide Relationship Specialty Start Date End Date Giancarlo Kendall MD [address] [place] [address] PCP - General Family Medicine 04/22/13 Harshad Osborn MD [address] [place] [address] Referring Internal Medicine 12/06/15 Peyton Peguero RN [facility] [address] [place] [address] Transplant Center 10/20/19 Mer Richardson [place] [address] [place] [address] Primary Staff Physician Cardiology 11/30/18 Bushwalking Guide Relationship Specialty Start Date End Date Giancarlo Kendall MD [facility] [place] [address] PCP - General Family Medicine 04/22/13 Harshad Osborn MD [address] [place] [address] 032741 Referring Internal Medicine 12/06/15 Peyton Peguero RN [facility] [address] [place] [address] Transplant Center 10/20/19 Mer Richardson [address] [address] Primary Staff Physician Cardiology 11/30/18 Team Status: Inactive Member Role Status Dates ANABELLE MAGAÑA MD Emergency Provider Active Start : June 28, 2024 End: June 28, 2024 NO FAMILY DOCTOR Primary Care Provider Active St art: June 28, 2024 End: June 28, 2024 Bushwalking Guide Relationship Specialty Start Date End Date Giancarlo Kendall MD [facility] [place] [address] PCP - General Family Medicine 04/22/13 Harshad Osborn MD [facility] [place] [address] Referring Internal Medicine 12/06/15 Peyton Peguero RN [facility] [address] [place] [address] Transplant Center 10/20/19 Mer Richardson [facility] [address] [place] [address] Primary Staff Physician Cardiology 11/30/18 Saida Lowery APRN.PAPER BAG MAKER [address] [place], [place] 257881 [facility] 08/22/24 Aylin Saravia APRN.PAPER BAG MAKER [address] [place], [place] 151711 [facility] 08/22/24 Bushwalking Guide Relationship Specialty Start Date End Date Giancarlo Kendall MD [address] [place], [place] [id number] PCP - General Family Medicine 04/22/13 Harshad Osborn MD [address] [place], [place] 506131 Referring Internal Medicine 12/06/15 Peyton Peguero, ARRON [facility] [address] [place] [address] Transplant Center 10/20/19 Mer Richardson [address] [address] Primary Staff Physician Cardiology 11/30/18 Saida Lowery APRN.PAPER BAG MAKER [address] [place], [place] 789341 [facility] 08/22/24 Aylin Saravia APRN.PAPER BAG MAKER [address] [place], [place] 119471 Ending Machine Operator Family [facility] 08/22/24 Bushwalking Guide Relationship Specialty Start Date End Date Giancarlo Kendall MD [address] [place], [place] 955941 PCP - General Family Medicine 04/22/13 Harshad Osborn MD [address] [place] [address] Referring Internal Medicine 12/06/15 Peyton Peguero RN [facility] [address] [place] [address] Transplant Center 10/20/19 Mer Richardson [facility] [address] [place] [address] Primary Staff Physician Cardiology 11/30/18 Saida Lowery, JUANA.PAPER BAG MAKER [address] [place] [address] Ending Machine Operator Family [facility] 08/22/24 Aylin Saravia CRYPTANALYST.PAPER BAG MAKER [address] [place] [address] Ending Machine Operator [facility] 08/22/24 Bushwalking Guide Relationship Specialty Start Date End Date Giancarlo Kendall MD [address] [place] [address] PCP - General Family Medicine 04/22/13 Harshad Osborn MD [address] [place] [address] Referring Internal Medicine 12/06/15 Peyton Peguero, ARRON [facility] [address] [place] [address] Transplant Center 10/20/19 Mer Richardson [facility] [address] [place] [address] Primary Staff Physician Cardiology 11/30/18 Saida Lowery, JUANA.PAPER BAG MAKER [address] [facility] [place] [address] Ending Machine Operator Family Medicine 08/22/24 Aylin Saravia APRN.PAPER BAG MAKER [address] [facility], [place] [address] Ending Machine Operator Family [facility] 08/22/24 Bushwalking Guide Relationship Specialty Start Date End Date Giancarlo Kendall MD [address] [place] [address] PCP - General Family Medicine 04/22/13 Harshad Osborn MD [address] [place] [address] Referring Internal Medicine 12/06/15 Peyton Peguero, ARRON [facility] [address] [place] [address] Transplant Center 10/20/19 Mer Richardson [place] [address] [place] [address] Primary Staff Physician Cardiology 11/30/18 Saida Lowery, JUANA.PAPER BAG MAKER [address] [facility] [place] [address] Ending Machine Operator Family [facility] 08/22/24 Aylin Saravia APRN.PAPER BAG MAKER [address] [facility], [place] [address] Ending Machine Operator Family [facility] 08/22/24 Bushwalking Guide Relationship Specialty Start Date End Date Giancarlo Kendall MD [address] [place], [place] 030661 PCP - General Family Medicine 04/22/13 Harshad Osborn MD [address] [place], [place] 801761 Referring Internal Medicine 12/06/15 Peyton Peguero, ARRON [facility] [address] [place] [address] Transplant Center 10/20/19 Mer Richardson [facility] [address] [place] [address] Primary Staff Physician Cardiology 11/30/18 Saida Lowery, CRYPTANALYST.PAPER BAG MAKER [address] [place] [address] Ending Machine Operator Family Medicine 08/22/24 Aylin Saravia, CRYPTANALYST.PAPER BAG MAKER [address] [place], [place] 502071 Ending Machine Operator Family [facility] 08/22/24 Bushwalking Guide Relationship Specialty Start Date End Date Giancarlo Kendall MD [address] [place], [place] 510511 PCP - General Family Medicine 04/22/13 Harshad Osborn MD [address] [place], [place] 493211 Referring Internal Medicine 12/06/15 Peyton Peguero RN [facility] [address] [place] [address] Transplant Center 10/20/19 Mer Richardson [address] [address] Primary Staff Physician Cardiology 11/30/18 Saida Lowery APRN.PAPER BAG MAKER [address] [place] [address] Ending Machine Operator Family Medicine 08/22/24 Aylin Saravia APRN.PAPER BAG MAKER [address] [place] [address] [facility] 08/22/24 Bushwalking Guide Relationship Specialty Start Date End Date Giancarlo Kendall MD [facility] [place] [address] PCP - General Family Medicine 04/22/13 Harshad Osborn MD [address] [place] [address] Referring Internal Medicine 12/06/15 Peyton Peguero RN [address] [address] Transplant Center 10/20/19 05/07/25 Mer Richardson [address] [address] Primary Staff Physician Cardiology 11/30/18 Saida Lowery APRN.PAPER BAG MAKER [address] [place] [address] [facility] Family [facility] 08/22/24 Aylin Saravia APRN.PAPER BAG MAKER [address] [place] [address] Ending Machine Operator Family Medicine 08/22/24 Iwona Slade RN [place] [address] [place] [address] Registered Nurse Transplant Center 05/08/25 Reason for Visit (unrecogniz ed section and content) Reason Comments No Show Specialty Diagnoses / Procedures Referred By Contac t Referred To Contact Family Medicine / FAMILY MEDICINE Diagnoses 8 week f/u Procedures 4C EST Giancarlo Kendall MD [address] [place] [address] Giancarlo Kendall MD [address] [place] [address] Referral ID Status Reason Start Date Expiration Date V isits Requested Visits Authorized [id number] Closed Patient Cleared - Qualified 100% FAS 07/18/2022 10/16/2022 99 99 Reason Comments Lab Orders Patient Update CoPat Management Reason Comments Orders Reason Comments Results Reason Comments Medications/pharmacy change Reason Comments Patient Education Assessment Specialty Diagnoses / Procedures Referred By Contac t Referred To Contact Nutrition Diagnoses Other osteoporosis without current pathological fracture Non-ischemic cardiomyopathy (HCC) Essential hypertension S/P liver transplant (HCC) Procedures CONSULT TO NUTRITION THERAPY OFFICE/OUTPATIENT [facility] 60-74 MINUTES Giancarlo Kendall MD [address] [place] [address] Referral ID Status Reason Start Date Expiration Date V isits Requested Visits Authorized [id number] Closed PCP Requested Referral 12/23/2021 12/23/2022 1 1 Reason Comments Patient Update Reason Comments Flank Pain left Reason Comments Patient Update Specialty Diagnoses / Procedures Referred By Contac t Referred To Contact MR IMAGING Diagnoses Cognitive impairment, mild, so stated Procedures MRI BRAIN WO IVCON MRI BRAIN BRAIN STEM W/O CONTRAST MATERIAL Giancarlo Kendall MD [address] [place] [address] Mr Imaging Referral ID Status Reason Start Date Expiration Date V isits Requested Visits Authorized [id number] Closed Auto-Generate d Referral 12/23/2021 03/25/2022 1 1 Reason Comments Patient Question Reason Comments Appointment Cancelled Reason Comments Follow Up Neck Pain Reason Onset Date Comments Refill Request 02/13/2022 Reason Comments Orders Reason Onset Date Comments Refill Request 02/19/2022 Refill Request 02/25/2022 Reason Comments Back Pain mid back; dull, cons tant x 1 week Left Hip Pain Reason Comments Medication Question Reason Comments Follow Up 4 week Reason Onset Date Comments Refill Request 04/23/2022 Reason Comments Anxiety Stopped all meds, sa ys nothing works, says not ready to go back to work due to anxiety. Sees Thomas Matute. Reason Comments fax PT orders to outside facility Reason Comments Follow Up Reason Comments Edema Pt reported (LT) ear , jaw, neck swelling x1 day., denied chest pain. Specialty Diagnoses / Procedures Referred By Contac t Referred To Contact Diagnoses Adjustment disorder with mixed anxiety and depressed mood Procedures CONSULT TO PSYCHIATRY OFFICE/OUTPATIENT NEW HIGH MDM 60-74 MINUTES Carina Hirsch PA-C [address] [place] [address] Referral ID Status Reason Start Date Expiration Date Visits Requested Visits Authorized [id number] Pending Review PCP Requested Referral 05/05/2022 05/05/2023 1 1 Reason Comments Opened In Error Reason Comments applying for disability Reason Onset Date Comments Follow Up Immunizations 07/21/2022 Flu vaccination Reason Onset Date Comments Refill Request 08/19/2022 Reason Comments Refill Request Reason Comments Follow Up Reason Comments Follow Up Reason Comments Patient Request Reason Comments Discussion Reason Comments New Patient LCS Reason Comments New Pain Reason Comments Appointment Reason Comments Social Work Services Reason Comments medciation issue Reason Comments Vomiting Reason Comments Follow Up 3 month follow up Reason Comments Radiology CT Specialty Diagnoses / Procedures Referred By Contac t Referred To Contact CT IMAGING Diagnoses History of tobacco use Encounter for screening for lung cancer Procedures CT LUNG SCREEN WO IVCON COMPUTED TOMOGRAPHY THORAX LW DOSE LNG CA SCR C- Cortney Shipley, CRYPTANALYST.PAPER BAG MAKER [address] [place] [address] [place] [address] Referral ID Status Reason Start Date Expiration Date V isits Requested Visits Authorized [id number] Closed Auto-Generate d Referral 12/03/2022 01/02/2024 1 1 Reason Comments Recheck Reason Onset Date Comments Refill Request 10/23/2023 Reason Comments having anxiety issue Reason Comments Return Call Request Reason Onset Date Comments Refill Request 01/26/2024 Reason Onset Date Comments Refill Request 02/23/2024 Reason Onset Date Comments Transition Of Care 04/07/2024 Reason Comments Hospital F/U [place] 04/04/24 -03/15 02/04 Dx; Pancreatits 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 This clinical summary was aggregated from multiple sources. Caution should be exercised in using it in the provision of clinical care. This summary normalizes information from multiple sources, and as a consequence, information in this document may materially change the coding, format and clinical context of patient data. In addition, data may be omitted in some cases. CLINICAL DECISIONS SHOULD BE BASED ON THE PRIMARY CLINICAL RECORDS. [employer] provides no warranty or guarantee of the accuracy or completeness of information in this document.
--- NOTE | 2025-09-11 23:18 | EKG12_ITS ---
Test Reason : BACK Blood Pressure : */* mmHG Vent. Rate : 52 BPM Atrial Rate : 52 BPM P-R Int : 150 ms QRS Dur : 92 ms QT Int : 434 ms P-R-T Axes : 14 -12 9 degrees QTcB Int : 403 ms Sinus bradycardia Otherwise normal ECG Confirmed by Jb Muhammad ([id number]), editor sound SABIHA ENGEL ([id number]) on 09/15/2025 6:45:24 AM Referred By: IRAM Confirmed By: Jb Muhammad
--- NOTE | 2025-09-11 23:18 | RAD_ITS ---
PROCEDURE: THORACIC SPINE 3 VIEWS 09/11/2025 REASON FOR EXAM: BACK PAIN TECHNIQUE: Procedure Code: RADSPT Modality: DX Procedure: THORACIC SPINE 3 VIEWS FINDINGS: No acute fracture or subluxation. Very mild degenerative changes are noted within the lower thoracic spine. Multiple surgical clips are noted within the right upper quadrant of the abdomen. RAD/Thoracic Spine 3 Views IMPRESSION: As above. Reading Location: [id number]
--- NOTE | 2025-09-11 23:18 | RAD_ITS ---
PROCEDURE: LUMBAR SPINE 2 OR 3 VIEWS 09/11/2025 REASON FOR EXAM: BACK PAIN TECHNIQUE: Procedure Code: RADSPLL Modality: DX Procedure: LUMBAR SPINE 2 OR 3 VIEWS COMPARISON: 03/22/2021. FINDINGS: Depression of the superior endplate of L1 may represent an acute fracture. No other fracture is identified. No subluxation. Degenerative changes including disc space narrowing, marginal osteophytosis, and facet arthrosis are noted throughout the lumbar spine, most pronounced in the upper lumbar spine. Multiple surgical clips are seen within the right side of the abdomen. RAD/Lumbar Spine 2 or 3 Views IMPRESSION: As above. Reading Location: [id number]
[2025-09-11] MEDS: Ketorolac 30 MG/ML Syringe IV (23:34)
--- NOTE | 2025-09-11 23:50 | RAD_ITS ---
PROCEDURE: CHEST PA AND LATERAL 09/11/2025 REASON FOR EXAM: CHEST PAIN TECHNIQUE: Procedure Code: RADCXR Modality: DX Procedure: CHEST PA AND LATERAL COMPARISON: 02/26/2020 FINDINGS: Lungs/Pleura: Clear. No pneumothorax or pleural effusion. Heart/Mediastinum: Normal in size. Cardiac hardware which appears to be related to valve repair, and evidence of coronary artery stenting. No vascular congestion. Bones/Soft tissues: Unremarkable.Right upper abdominal surgical clips. RAD/Chest PA and Lateral IMPRESSION: No acute cardiopulmonary disease. Reading Location: [id number]
[2025-09-12] MEDS: Orphenadrine 100 MG Tablet PO (00:06)
[2025-09-12 00:24] VITALS: BP 143/79; PULSE 58; RESP 16; O2SAT 98
[2025-09-12 00:25] LABS: Hematocrit 42.7 % (40-54); Hemoglobin 15.1 g/dL (13.0-16.5); Immature Granulocytes Count 0.020 X10^3/uL (0.0-0.0); Mean Corp Hgb Conc 35.4 g/dL (32-36); Mean Corpuscular Volume 91.0 fL (80-94); Mean Platelet Vol. 10.3 fl (6.2-12.0); NRBC Flagged by Analyzer 0 % (0-5); Platelet Count 116 K/mm3 (150-450); RBC Distribution Width CV 12.6 % (11.6-14.6); RBC Distribution Width SD 40.9 fl (35.1-43.9); Red Blood Count 4.69 M/mm3 (4.6-6.2); White Blood Count 5.1 K/mm3 (4.4-11.0)
[2025-09-12 00:41] LABS: Magnesium 2.2 mg/dL (1.5-2.2); Troponin T High Sensitivity 16 ng/L (<=22)
[2025-09-12 00:59] LABS: Anion Gap 11 (7-18); BUN 28 mg/dL (4-19); BUN/Creat Ratio 17.6 RATIO (10-20); Calcium,Total 10.0 mg/dL (7.6-11.0); Carbon Dioxide 24.8 mmol/L (20.0-29.0); Chloride 102 mmol/L (96-106); Estimated Creatinine Clearance 43.74 ml/min (50-250); Glucose 96 mg/dL (70-99); Potassium 3.7 mmol/L (3.5-5.1)
[2025-09-12 02:02] LABS: Troponin T High Sens 2 HR 18 ng/L (<=22)
--- NOTE | 2025-09-12 02:17 | EX.ED.DYSGE1 ---
HPI History of Present Illness Chief Complaint: Back Informant: patient Narrative Narrative: Patient is a 60-year-old male who reports a past medical history of PTSD hypertension coronary artery disease requiring stent placement and bulging disks. He states that he feels his PTSD is flaring up over social issues that have happened in the last few days. He states he was essentially kicked out of the house where he was staying and now is staying in a [employer] van with his belongings. He states he had to recently lift his belongings and placed him in the van and after doing so noticed he was having increased back pain. He denies any direct trauma. He denies any dysuria or hematuria. He denies any loss of bowel or bladder control or IV drug use. He states that he does not have any medication to help control the pain and secondary to this he presents for evaluation. Despite his report of increased PTSD he denies any homicidal or suicidal ideation [facility] Medical History Alcoholic cirrhosis of liver BPH (benign prostatic hyperplasia) Chronic hepatitis C GERD (gastroesophageal reflux disease) Hypertension Home Medications ?Medication ?Instructions ?Recorded ?Last Taken ?Type metoprolol tartrate 25 mg tablet 25 mg PO DAILY cardiac 01/24/16 08/05/19 History pantoprazole 40 mg tablet,delayed 40 mg PO DAILY acid reflux 01/24/16 08/05/19 History release sulfamethoxazole 800 1 tab PO MOWEFR transplant 01/24/16 08/05/19 History mg-trimethoprim 160 mg tablet lisinopril 5 mg tablet (Zestril) 5 mg PO DAILY BP 04/27/17 08/05/19 History bupropion HCl 300 mg 24 hr tablet, 300 mg PO DAILY depression 08/05/19 08/05/19 History extended release cholecalciferol (vitamin D3) 25 500 unit PO DAILY SUPPLEMENT 08/05/19 08/05/19 History mcg (1,000 unit) tablet nortriptyline 10 mg capsule 10 mg PO QHS HEADACHES 08/05/19 08/04/19 History sertraline 100 mg tablet 200 mg PO DAILY depression 08/05/19 08/04/19 History tacrolimus 0.5 mg capsule, 0.5 mg PO BID LIVER 08/05/19 08/05/19 History immediate-release tacrolimus 1 mg capsule, 1 mg PO BID LIVER 08/05/19 08/05/19 History immediate-release ursodiol 300 mg capsule 300 mg PO BID transplant 08/05/19 08/05/19 History alendronate 70 mg tablet 70 mg PO WE osteoporosis 08/08/19 Unknown History simvastatin 20 mg tablet 20 mg PO QHS cholesterol 08/08/19 Unknown History melatonin 3 mg tablet 3 mg PO QHS PRN PRN Insomnia 08/09/19 Unknown Rx betamethasone valerate 0.1 % 1 applic topical DAILY@0600 08/23/19 Unknown Rx topical cream diphenhydramine HCl 25 mg capsule 50 mg (2 x 25 mg) PO Q6H PRN PRN 08/23/19 Unknown Rx Itching nystatin 100,000 unit/gram topical 1 applic topical 0600,1800 08/23/19 Unknown Rx powder potassium chloride 10 mEq 10 meq PO DAILYCM #30 tabs 08/23/19 Unknown Rx tablet,extended release(part/cryst) sennosides 8.6 mg-docusate sodium 1 tab PO BID #60 tabs 08/23/19 Unknown Rx 50 mg tablet tamsulosin 0.4 mg capsule 0.4 mg PO BID@0830,1730 prostate 08/23/19 Unknown Rx #60 caps acetaminophen 500 mg tablet 500 mg PO Q6H PRN PRN Pain Score 09/22/19 Unknown History 1-11/21 ciprofloxacin HCl 500 mg tablet 500 mg PO BID #14 TABLETS 03/29/21 Unknown Rx cephalexin 500 mg capsule 500 mg PO Q6H 10 days #40 caps 05/06/21 Unknown Rx oxycodone-acetaminophen 5 mg-325 1 tab PO Q6H PRN pain 3 days #12 09/12/25 Unknown Rx mg tablet (Percocet) tabs Allergy/AdvReac Type Severity Reaction Status Date / Time hydrocodone bitartrate (From Allergy Hives Verified 09/11/25 20:25 Vicodin) latex Allergy It causes Verified 09/11/25 20:25 cracks in my hands vancomycin Allergy Itching/turn Verified 09/11/25 20:25 red morphine AdvReac I feel Verified 09/11/25 20:25 dehydrated Family History no significant family his Surgical History Liver transplant recipient Social History household members: none Smoking Status: Former smoker alcohol intake: former substance use type: does not use ROS ROS ED Constitutional Constitutional ED: Denies chills or fever(s) Eyes Eyes: Denies change in vision ENT ENT ED: Denies sore throat Cardiovascular Cardiovascular: Denies chest pain Respiratory/Chest Respiratory/Chest: Denies cough or dyspnea Gastrointestinal Gastrointestinal: Reports nausea; Denies abdominal pain, diarrhea or vomiting Genitourinary Genitourinary ED: Denies dysuria or hematuria Musculoskeletal Musculoskeletal: Reports back pain Integumentary Denies rash Neurologic Neurologic: Denies headache(s) Psychiatric Psychiatric: Reports depression; Denies suicidal ideation or suicidal thoughts EXAM Physical Exam Const Vital Signs: 09/11/25 20:25 09/12/25 00:24 09/12/25 02:54 Temperature 96.8 F L 96.8 F L Temperature Source Temporal Pulse Rate 74 58 L 58 L Respiratory Rate 18 16 18 Blood Pressure 134/85 H 143/79 H 131/83 H Blood Pressure Mean 101 100 99 Pulse Ox 98 98 97 Oxygen Delivery Method Room Air Room Air 09/12/25 04:00 Temperature Temperature Source Pulse Rate 55 L Respiratory Rate 16 Blood Pressure 153/95 H Blood Pressure Mean 114 Pulse Ox 97 Oxygen Delivery Method Positive well nourished and well developed General Appearance ED: well developed; Negative for pallor HEENT HEENT Narrative: Normocephalic atraumatic Eyes PERRL and EOMs intact bilaterally General Eye ED: Negative for scleral icterus Neck supple Resp normal respiratory effort Resp Narrative: Breath sounds are diminished throughout with faint expiratory wheeze in the bilateral bases however no findings of respiratory distress such as tachypnea accessory muscle use nasal flaring or retractions Cardio regular rate and regular rhythm Rate: other Other Details: Radial and carotid pulses are equal and symmetric No carotid bruit noted GI normal to inspection, nondistended, normoactive bowel sounds, non-tender, non-distended and no masses GI Narrative: No voluntary guarding or rigidity or pulsatile mass No peritoneal signs Auscultation: normoactive bowel sounds Palpation: soft Back/Spine Back/Spine Narrative: No bony deformity or step-off of the thoracic or lumbar spine There is midline pain on palpation however in the lower thoracic/upper lumbar region No overlying soft tissue changes to suggest trauma or infection No saddle anesthesia; negative straight leg raise; no clonus or Babinski; patellar reflexes are plus 1 out of 4 bilaterally Extremity normal to inspection Neuro oriented x3, CN's II-XII intact bilaterally and no sensory deficits noted Sensorium / Orientation: alert Motor Exam: strength 5/5 throughout Psych Psych Narrative: Patient has a depressed affect but denies homicidal or suicidal ideation Mood & Affect: depressed Skin no rashes or lesions noted and no wounds General Skin Exam: Negative for jaundice or pallor MDM MDM MDM Narrative Medical decision making narrative: Patient arrived to the ER with stable vitals. He reported increased back pain after moving multiple boxes but denied direct trauma. As he does have midline pain he potentially could have a compression fracture or spondylolisthesis so I did elect to perform x-rays. He denied loss of bowel or bladder control or IV drug use going against cauda equina or epidural abscess. He also denied any recent procedures such as injections or surgery going against discitis or osteomyelitis. As he also complains of nausea and states this is the same symptom he had when he had a cardiac event I did elect to perform an EKG to assess for ACS or cardiac dysrhythmia and also perform basic laboratory studies. EKG was sinus bradycardia without dysrhythmia or ischemic change. Initial troponin was 16 and the delta was 18 which is not clinically significant and goes against acute cardiac event. Chest x-ray revealed no acute lung pathology. X-rays of the thoracic and lumbar spine showed arthritis/degeneration with questionable L1 compression fracture. Patient does have pain at that region however the x-ray/radiologist report this is mild in nature and there is no need for orthopedic/spine intervention as there is no neurovascular compromise. The patient was also evaluated by crisis center as he reports he is homeless and has PTSD. However he has reiterated that he is not homicidal or suicidal to both crisis center and myself and therefore there is no need for further psychiatric evaluation. Therefore at this time as vitals are stable overall workup is negative from a cardiovascular standpoint there is no need for psychiatric admission and his x-ray indicates a compression fracture but this is closed without neurovascular compromise there is no need for further intervention and he is otherwise safe for discharge History & Record Review Discussion w/independent historian: Patient Lab Data Attestation: I reviewed the patient's lab results. Labs: Laboratory Results - last 24 hr 09/11/25 09/12/25 23:35 01:38 WBC 5.1 RBC 4.69 Hgb 15.1 Hct 42.7 MCV 91.0 MCH 32.2 H MCHC 35.4 RDW Std Deviation 40.9 RDW Coeff of Paz 12.6 Plt Count 116 L MPV 10.3 Immature Gran % (Auto) 0.400 Neut % (Auto) 65.7 Lymph % (Auto) 20.4 [place] % (Auto) 11.5 H Eos % (Auto) 1.8 Baso % (Auto) 0.2 Absolute Neuts (auto) 3.3 Absolute Lymphs (auto) 1.03 Nucleated RBC % 0 Sodium 138 Potassium 3.7 Chloride 102 Carbon Dioxide 24.8 Anion Gap 11 BUN 28 H Creatinine 1.58 H Estim Creat Clear Calc 43.74 L Est GFR (MDRD) Non-Af 49 L BUN/Creatinine Ratio 17.6 Glucose 96 Calcium 10.0 Magnesium 2.2 Troponin T High Sens 16 Troponin T Hi Sens 2 Hr 18 Radiography Diagnostic Testing: Clinical Impression(s) from Imaging Studies Lumbar Spine X-Ray 09/11/25 23:18 IMPRESSION: As above. Reading Location: [facility] Thoracic Spine X-Ray 09/11/25 23:18 IMPRESSION: As above. Reading Location: [facility] Chest X-Ray 09/11/25 23:50 IMPRESSION: No acute cardiopulmonary disease. Reading Location: [id number] Chest x-ray as interpreted by the emergency medicine physician reveals no acute infiltrate pneumothorax or pleural effusion Thoracic spine x-ray as interpreted by the emergency medicine physician reveals degenerative changes without acute compression fracture or spinal thesis Lumbar spine x-ray as interpreted by the emergency medicine physician reveals degenerative changes with questionable L1 compression fracture Discharge Plan Triage Chief Complaint: Back ED Provider: Ronald Goode Dx/Rx/DC Orders Clinical Impression: Nonspecific chest pain, Depression, Post traumatic stress disorder (PTSD), Closed compression fracture of L1 vertebra Instructions: PTSD, Compression Fx, ED Chest Pain, Uncertain Cause Prescriptions: New oxycodone-acetaminophen [Percocet] 5-325 mg tablet 1 tab PO Q6H PRN (Reason: pain) 3 Days Qty: 12 0RF No Action sulfamethoxazole-trimethoprim 1 TABLET tablet 1 tab PO MOWEFR pantoprazole 40 MG tablet 40 mg PO DAILY metoprolol tartrate 25 MG tablet 25 mg PO DAILY lisinopril [Zestril] 5 MG tablet 5 mg PO DAILY sertraline 100 MG tablet 200 mg PO DAILY nortriptyline 10 MG capsule 10 mg PO QHS Patient Comments: TAKE 1 CAPSULE BY MOUTH ONCE DAILY AT BEDTIME ursodiol 300 MG capsule 300 mg PO BID Patient Comments: TAKE 1 CAPSULE BY MOUTH THREE TIMES DAILY tacrolimus 1 MG capsule 1 mg PO BID Patient Comments: TAKE 1 CAPSULE BY MOUTH TWICE DAILY ALONG WITH 0.5MG CAPSULE TO TOTAL1.5 MG TWICE DAILY tacrolimus 0.5 MG capsule 0.5 mg PO BID Patient Comments: TAKE 1 CAPSULE BY MOUTH TWICE DAILY WITH 1MG CAPSULE TO TOTAL 1.5MG TWICE DAILY bupropion HCl 300 MG tablet extended release 24 hr 300 mg PO DAILY Patient Comments: TAKE 1 TABLET BY MOUTH ONCE DAILY cholecalciferol (vitamin D3) 1,000 UNIT tablet 500 unit PO DAILY alendronate 70 MG tablet 70 mg PO WE Rx Instructions: takes on Thursday simvastatin 20 MG tablet 20 mg PO QHS melatonin 3 MG tablet 3 mg PO QHS PRN PRN (Reason: Insomnia) 0RF sennosides-docusate sodium 1 TABLET tablet 1 tab PO BID Qty: 60 0RF betamethasone valerate 1 APPLIC cream 1 applic topical DAILY@0600 0RF Protocol: *Topical Application Instructions APPLICATION INSTRUCTIONS: Apply to nose. diphenhydramine HCl 25 MG capsule 50 mg PO Q6H PRN PRN (Reason: Itching) 0RF nystatin 1 APPLIC bottle 1 applic topical 0600,1800 0RF Protocol: *Topical Application Instructions APPLICATION INSTRUCTIONS: groin potassium chloride 10 MEQ tablet 10 meq PO DAILYCM Qty: 30 0RF tamsulosin 0.4 MG capsule 0.4 mg PO BID@0830,1730 Qty: 60 0RF acetaminophen 500 MG tablet 500 mg PO Q6H PRN PRN (Reason: Pain Score 1-3/10) ciprofloxacin HCl [ciprofloxacin HCl] 500 MG tablet 500 mg PO BID Qty: 14 0RF cephalexin 500 mg capsule 500 mg PO Q6H 10 Days Qty: 40 0RF Primary Care Provider: Raphael Day Referrals: Raphael Day MD [Primary Care Provider, Medical] Activity Restrictions/Additional Instructions: Aorta today revealed no sign of active heart damage. The x-ray of your low back shows a small fracture of the L1 vertebrae which is just treated symptomatically. You can take Tylenol and or Motrin for pain control but if symptoms are intense then use the Percocet that was prescribed. Follow-up with your family doctor for repeat evaluation and use the resources given to you by crisis center to seek treatment for your PTSD. Return to the ER should you have any further concerns Print Language: Tajik Disposition Disposition: Home, Self Care
[2025-09-12 02:54] VITALS: BP 131/83; PULSE 58; RESP 18; TEMP 36; O2SAT 97
[2025-09-12 04:00] VITALS: BP 153/95; PULSE 55; RESP 16; O2SAT 97
== END 2025-09-12 06:11 | disposition home or self-care (01) ==
PROVIDERS: Emergency Provider Emergency Medicine; PCP Family Medicine; Visit Provider Emergency Medicine
DX: R07.89 Other chest pain (principal); S32.010A Wedge compression fracture of first lumbar vertebra, initial encounter for closed fracture; F43.10 Post-traumatic stress disorder, unspecified; M47.814 Spondylosis without myelopathy or radiculopathy, thoracic region; Z87.891 Personal history of nicotine dependence; I10 Essential (primary) hypertension; F32.A Depression, unspecified; I25.10 Atherosclerotic heart disease of native coronary artery without angina pectoris; Z95.5 Presence of coronary angioplasty implant and graft; K21.9 Gastro-esophageal reflux disease without esophagitis; X50.0XXA Overexertion from strenuous movement or load, initial encounter; M47.816 Spondylosis without myelopathy or radiculopathy, lumbar region
CPT/HCPCS: 71046; 72072; 72100; 80048; 83735; 84484; 85025; 93005; 96374; 99284; A4216